=== PATIENT | male | born 1960 | race Hispanic/Latino ===

== ENCOUNTER 2018-01-10 22:06 | Inpatient (IN) | payer MEDICAID ==
--- OUTSIDE RECORDS SUMMARY | 2018-01-10 22:14 | XMS REPORT ---
:1960 [facility] [address] [place] [address] [address]. [address] [place] [address] Care Team Providers Name Role Phone Keo ZENG Unavailable Unavailable Mignon HUMPHREY Unavailable Unavailable Problems This patient has no known problems. Allergies, Adverse Reactions, Alerts This patient has no known allergies or adverse reactions. Medications This patient has no known medications. Results Test Description Test Time Test Comments Text Results Atomic Results Result Comments METHYLMALONIC ACID 2017-06-21 07:36:00 Test Item Value Reference Range Comments METHYLMALONIC ACID, SERUM (test gjrk=[id number]) 603 nmol/L 0-378 PERFORMED AT: [facility] [id number] [place] ESTIMATOR: Donnie Youssef MD PHONE: [phone], [id number] 06:50:00To start 15mins after 1st cultureSpecimen: BloodCollected: 2016 01:33 Status: Final Last Updated: 06/21/2017 06:49 (1) To start 15mins after 1st culture Culture Result (Final) (Final) No Growth After 5 DaysCULTURE, [id number] 06:50:00Specimen: BloodCollected: 06/16/2017 01: 20 Status: Final Last Updated: 06/21/2017 06:49 Culture Result (Final) ( Final) No Growth After 5 [id number] 09:05:00 Test Item Value Reference Range Comments Glucose (test code=GLU) 84 mg/dl 75-110 BUN (test code=BUN) 32.0 mg/dl 6.0-17.0 Creatinine (test 3.9 mg/dl 0.4-1.2 code=CREA) Sodium (test code=NA) 137 mmol/l 137-145 Potassium (test code=K) 3.9 mmol/l 3.5-5.0 Chloride (test code=CL) 99 mmol/l 98-107 CO2 (test code=CO2) 26 mmol/l 22-30 Calcium (test code=CALC) 8.1 mg/dl 8.4-10.2 T Protein (test code=TP) 5.8 gm/dl 5.1-8.7 Albumin (test code=ALB) 2.6 gm/dl 3.5-4.6 A/G Ratio (test 0.8 % 1.1-2.2 code=AGRAT) AST (SGOT) (test 18 U/L 11-36 code=AST) ALT (SGPT) (test 28 U/L 11-40 code=ALT) Alkaline Phos (test 180 U/L 47-114 code=ALKP) Total Bilirubin (test 0.6 mg/dl 0.2-1.2 code=TBIL) Globulin (test 3.2 gm/dl 2.3-3.5 code=GLOBU) Calcium, Corrected (test 9.2 mg/dl 8.4-10.2 Various formulas exist for code=CALCCORR) corrected serum calcium results, each yielding different values. This corrected result was based on the formula: Corrected Calcium=SerumCalcium + [0.8 * ( 4 - SerumAlbumin)] EGFR if 20 (test code=EGFRAA) mL/min/1.73m\\S\\2 EGFR if Non- 17 Estimated Glomerular Ukrainian (test mL/min/1.73m\\S\\2 Filtration Rate (eGFR) code=EGFRNA) Reference Intervals Decision Points for 18 years and older and average body mass: >=60 Does not exclude kidney disease. 30 - 59 Suggests moderate chronic kidney disease and indicates the need for further investigation including assessment of proteinuria and cardiovascular factors. < 30 Usually indicates a need for referral for assessment and management of chronic kidney failure. CBC WITH AUTO [id number] 08:50:00 Test Item Value Reference Range Comments WBC (test code=WBC) 10.86 10\\S\\3/ul 4.80-10.80 RBC (test code=RBC) 3.03 10\\S\\6/ul 4.70-6.10 Hemoglobin (test code=HGB) 8.4 gm/dl 14.0-18.0 Hematocrit (test code=HCT) 26.3 % 42.0-50.0 MCV (test code=MCV) 86.8 fL 80.0-94.0 MCH (test code=MCH) 27.7 pg 27.0-31.0 MCHC (test code=MCHC) 31.9 gm/dl 33.0-37.0 RDW (test code=RDWVC) 15.9 % 11.5-14.5 Platelet (test code=PLT) 250 10\\S\\3/ul 130-400 MPV (test code=MPV) 11.1 fL 7.4-10.4 "NOT MEASURED" RESULTS ARE DISPLAYED WHEN THE INSTRUMENT HAS A SUPPRESSED OR UNREPORTABLE RESULT. THIS WILL MOST OFTEN HAPPEN WITH THE MPV WHEN THERE IS AN ABNORMAL PLATLET DISTRIBUTION DUE TO A CRITICAL LOW VALUE OR PLATELET CLUMPING. NE% (test code=NE) 70.6 % 42.0-75.0 LY% (test code=LY) 12.0 % 13.0-42.0 MO% (test code=MO) 12.0 % 4.0-14.0 EO% (test code=EO) 4.1 % 1.0-3.0 BA% (test code=BA) 0.6 % 1.0-3.0 IG% (test code=IG%) 0.7 % 0.0-0.4 CBC WITH AUTO [id number] 01:49:00 Test Item Value Reference Range Comments WBC (test code=WBC) 9.84 10\\S\\3/ul 4.80-10.80 RBC (test code=RBC) 3.23 10\\S\\6/ul 4.70-6.10 Hemoglobin (test code=HGB) 8.9 gm/dl 14.0-18.0 Hematocrit (test code=HCT) 27.4 % 42.0-50.0 MCV (test code=MCV) 84.8 fL 80.0-94.0 MCH (test code=MCH) 27.6 pg 27.0-31.0 MCHC (test code=MCHC) 32.5 gm/dl 33.0-37.0 RDW (test code=RDWVC) 15.8 % 11.5-14.5 Platelet (test code=PLT) 229 10\\S\\3/ul 130-400 MPV (test code=MPV) 10.2 fL 7.4-10.4 "NOT MEASURED" RESULTS ARE DISPLAYED WHEN THE INSTRUMENT HAS A SUPPRESSED OR UNREPORTABLE RESULT. THIS WILL MOST OFTEN HAPPEN WITH THE MPV WHEN THERE IS AN ABNORMAL PLATLET DISTRIBUTION DUE TO A CRITICAL LOW VALUE OR PLATELET CLUMPING. NE% (test code=NE) 68.0 % 42.0-75.0 LY% (test code=LY) 13.6 % 13.0-42.0 MO% (test code=MO) 12.5 % 4.0-14.0 EO% (test code=EO) 4.6 % 1.0-3.0 BA% (test code=BA) 0.4 % 1.0-3.0 IG% (test code=IG%) 0.9 % 0.0-0.4 CBC WITH AUTO [id number] 20:08:00 Test Item Value Reference Range Comments WBC (test code=WBC) 9.69 10\\S\\3/ul 4.80-10.80 RBC (test code=RBC) 3.22 10\\S\\6/ul 4.70-6.10 Hemoglobin (test code=HGB) 9.0 gm/dl 14.0-18.0 Hematocrit (test code=HCT) 27.4 % 42.0-50.0 MCV (test code=MCV) 85.1 fL 80.0-94.0 MCH (test code=MCH) 28.0 pg 27.0-31.0 MCHC (test code=MCHC) 32.8 gm/dl 33.0-37.0 RDW (test code=RDWVC) 15.8 % 11.5-14.5 Platelet (test code=PLT) 233 10\\S\\3/ul 130-400 MPV (test code=MPV) 10.3 fL 7.4-10.4 "NOT MEASURED" RESULTS ARE DISPLAYED WHEN THE INSTRUMENT HAS A SUPPRESSED OR UNREPORTABLE RESULT. THIS WILL MOST OFTEN HAPPEN WITH THE MPV WHEN THERE IS AN ABNORMAL PLATLET DISTRIBUTION DUE TO A CRITICAL LOW VALUE OR PLATELET CLUMPING. NE% (test code=NE) 75.2 % 42.0-75.0 LY% (test code=LY) 10.5 % 13.0-42.0 MO% (test code=MO) 10.0 % 4.0-14.0 EO% (test code=EO) 3.3 % 1.0-3.0 BA% (test code=BA) 0.3 % 1.0-3.0 IG% (test code=IG%) 0.7 % 0.0-0.4 CBC WITH AUTO [id number] 13:58:00 Test Item Value Reference Range Comments WBC (test code=WBC) 9.68 10\\S\\3/ul 4.80-10.80 RBC (test code=RBC) 3.27 10\\S\\6/ul 4.70-6.10 Hemoglobin (test code=HGB) 9.2 gm/dl 14.0-18.0 Hematocrit (test code=HCT) 27.8 % 42.0-50.0 MCV (test code=MCV) 85.0 fL 80.0-94.0 MCH (test code=MCH) 28.1 pg 27.0-31.0 MCHC (test code=MCHC) 33.1 gm/dl 33.0-37.0 RDW (test code=RDWVC) 15.8 % 11.5-14.5 Platelet (test code=PLT) 227 10\\S\\3/ul 130-400 MPV (test code=MPV) 10.2 fL 7.4-10.4 "NOT MEASURED" RESULTS ARE DISPLAYED WHEN THE INSTRUMENT HAS A SUPPRESSED OR UNREPORTABLE RESULT. THIS WILL MOST OFTEN HAPPEN WITH THE MPV WHEN THERE IS AN ABNORMAL PLATLET DISTRIBUTION DUE TO A CRITICAL LOW VALUE OR PLATELET CLUMPING. NE% (test code=NE) 78.7 % 42.0-75.0 LY% (test code=LY) 8.2 % 13.0-42.0 MO% (test code=MO) 8.9 % 4.0-14.0 EO% (test code=EO) 3.0 % 1.0-3.0 BA% (test code=BA) 0.5 % 1.0-3.0 IG% (test code=IG%) 0.7 % 0.0-0.4 [id number] 09:14:00 Test Item Value Reference Range Comments Glucose (test code=GLU) 74 mg/dl 75-110 BUN (test code=BUN) 47.0 mg/dl 6.0-17.0 Creatinine (test 4.2 mg/dl 0.4-1.2 code=CREA) Sodium (test code=NA) 136 mmol/l 137-145 Potassium (test code=K) 4.6 mmol/l 3.5-5.0 Chloride (test code=CL) 104 mmol/l 98-107 CO2 (test code=CO2) 23 mmol/l 22-30 Calcium (test code=CALC) 8.2 mg/dl 8.4-10.2 T Protein (test code=TP) 5.8 gm/dl 5.1-8.7 Albumin (test code=ALB) 2.6 gm/dl 3.5-4.6 A/G Ratio (test 0.8 % 1.1-2.2 code=AGRAT) AST (SGOT) (test 74 U/L 11-36 code=AST) ALT (SGPT) (test 47 U/L 11-40 code=ALT) Alkaline Phos (test 219 U/L 47-114 code=ALKP) Total Bilirubin (test 0.7 mg/dl 0.2-1.2 code=TBIL) Globulin (test 3.2 gm/dl 2.3-3.5 code=GLOBU) Calcium, Corrected (test 9.3 mg/dl 8.4-10.2 Various formulas exist for code=CALCCORR) corrected serum calcium results, each yielding different values. This corrected result was based on the formula: Corrected Calcium=SerumCalcium + [0.8 * ( 4 - SerumAlbumin)] EGFR if 19 (test code=EGFRAA) mL/min/1.73m\\S\\2 EGFR if Non- 16 Estimated Glomerular Ukrainian (test mL/min/1.73m\\S\\2 Filtration Rate (eGFR) code=EGFRNA) Reference Intervals Decision Points for 18 years and older and average body mass: >=60 Does not exclude kidney disease. 30 - 59 Suggests moderate chronic kidney disease and indicates the need for further investigation including assessment of proteinuria and cardiovascular factors. < 30 Usually indicates a need for referral for assessment and management of chronic kidney failure. CBC WITH AUTO [id number] 09:05:00 Test Item Value Reference Range Comments WBC (test code=WBC) 10.91 10\\S\\3/ul 4.80-10.80 RBC (test code=RBC) 2.92 10\\S\\6/ul 4.70-6.10 Hemoglobin (test code=HGB) 8.1 gm/dl 14.0-18.0 Hematocrit (test code=HCT) 25.6 % 42.0-50.0 MCV (test code=MCV) 87.7 fL 80.0-94.0 MCH (test code=MCH) 27.7 pg 27.0-31.0 MCHC (test code=MCHC) 31.6 gm/dl 33.0-37.0 RDW (test code=RDWVC) 16.0 % 11.5-14.5 Platelet (test code=PLT) 191 10\\S\\3/ul 130-400 MPV (test code=MPV) 10.3 fL 7.4-10.4 "NOT MEASURED" RESULTS ARE DISPLAYED WHEN THE INSTRUMENT HAS A SUPPRESSED OR UNREPORTABLE RESULT. THIS WILL MOST OFTEN HAPPEN WITH THE MPV WHEN THERE IS AN ABNORMAL PLATLET DISTRIBUTION DUE TO A CRITICAL LOW VALUE OR PLATELET CLUMPING. NE% (test code=NE) 74.1 % 42.0-75.0 LY% (test code=LY) 10.1 % 13.0-42.0 MO% (test code=MO) 11.3 % 4.0-14.0 EO% (test code=EO) 3.5 % 1.0-3.0 BA% (test code=BA) 0.3 % 1.0-3.0 IG% (test code=IG%) 0.7 % 0.0-0.4 CBC WITH AUTO [id number] 02:17:00 Test Item Value Reference Range Comments WBC (test code=WBC) 11.41 10\\S\\3/ul 4.80-10.80 RBC (test code=RBC) 2.90 10\\S\\6/ul 4.70-6.10 Hemoglobin (test code=HGB) 8.1 gm/dl 14.0-18.0 Hematocrit (test code=HCT) 25.0 % 42.0-50.0 MCV (test code=MCV) 86.2 fL 80.0-94.0 MCH (test code=MCH) 27.9 pg 27.0-31.0 MCHC (test code=MCHC) 32.4 gm/dl 33.0-37.0 RDW (test code=RDWVC) 15.9 % 11.5-14.5 Platelet (test code=PLT) 220 10\\S\\3/ul 130-400 MPV (test code=MPV) 10.3 fL 7.4-10.4 "NOT MEASURED" RESULTS ARE DISPLAYED WHEN THE INSTRUMENT HAS A SUPPRESSED OR UNREPORTABLE RESULT. THIS WILL MOST OFTEN HAPPEN WITH THE MPV WHEN THERE IS AN ABNORMAL PLATLET DISTRIBUTION DUE TO A CRITICAL LOW VALUE OR PLATELET CLUMPING. NE% (test code=NE) 72.1 % 42.0-75.0 LY% (test code=LY) 11.2 % 13.0-42.0 MO% (test code=MO) 11.3 % 4.0-14.0 EO% (test code=EO) 4.3 % 1.0-3.0 BA% (test code=BA) 0.4 % 1.0-3.0 IG% (test code=IG%) 0.7 % 0.0-0.4 CBC WITH AUTO [id number] 20:02:00 Test Item Value Reference Range Comments WBC (test code=WBC) 11.53 10\\S\\3/ul 4.80-10.80 RBC (test code=RBC) 3.05 10\\S\\6/ul 4.70-6.10 Hemoglobin (test code=HGB) 8.6 gm/dl 14.0-18.0 Hematocrit (test code=HCT) 26.1 % 42.0-50.0 MCV (test code=MCV) 85.6 fL 80.0-94.0 MCH (test code=MCH) 28.2 pg 27.0-31.0 MCHC (test code=MCHC) 33.0 gm/dl 33.0-37.0 RDW (test code=RDWVC) 16.0 % 11.5-14.5 Platelet (test code=PLT) 220 10\\S\\3/ul 130-400 MPV (test code=MPV) 9.7 fL 7.4-10.4 "NOT MEASURED" RESULTS ARE DISPLAYED WHEN THE INSTRUMENT HAS A SUPPRESSED OR UNREPORTABLE RESULT. THIS WILL MOST OFTEN HAPPEN WITH THE MPV WHEN THERE IS AN ABNORMAL PLATLET DISTRIBUTION DUE TO A CRITICAL LOW VALUE OR PLATELET CLUMPING. NE% (test code=NE) 72.5 % 42.0-75.0 LY% (test code=LY) 11.4 % 13.0-42.0 MO% (test code=MO) 10.6 % 4.0-14.0 EO% (test code=EO) 4.3 % 1.0-3.0 BA% (test code=BA) 0.4 % 1.0-3.0 IG% (test code=IG%) 0.8 % 0.0-0.4 CBC WITH AUTO [id number] 14:17:00 Test Item Value Reference Range Comments WBC (test code=WBC) 11.59 10\\S\\3/ul 4.80-10.80 RBC (test code=RBC) 3.36 10\\S\\6/ul 4.70-6.10 Hemoglobin (test code=HGB) 9.4 gm/dl 14.0-18.0 Hematocrit (test code=HCT) 29.0 % 42.0-50.0 MCV (test code=MCV) 86.3 fL 80.0-94.0 MCH (test code=MCH) 28.0 pg 27.0-31.0 MCHC (test code=MCHC) 32.4 gm/dl 33.0-37.0 RDW (test code=RDWVC) 15.9 % 11.5-14.5 Platelet (test code=PLT) 229 10\\S\\3/ul 130-400 MPV (test code=MPV) 10.4 fL 7.4-10.4 "NOT MEASURED" RESULTS ARE DISPLAYED WHEN THE INSTRUMENT HAS A SUPPRESSED OR UNREPORTABLE RESULT. THIS WILL MOST OFTEN HAPPEN WITH THE MPV WHEN THERE IS AN ABNORMAL PLATLET DISTRIBUTION DUE TO A CRITICAL LOW VALUE OR PLATELET CLUMPING. NE% (test code=NE) 76.5 % 42.0-75.0 LY% (test code=LY) 11.2 % 13.0-42.0 MO% (test code=MO) 8.5 % 4.0-14.0 EO% (test code=EO) 2.6 % 1.0-3.0 BA% (test code=BA) 0.3 % 1.0-3.0 IG% (test code=IG%) 0.9 % 0.0-0.4 [id number] 08:47:00 Test Item Value Reference Range Comments Magnesium (test code=MG) 1.9 mg/dl 1.6-2.3 [id number] 08:47:00 Test Item Value Reference Range Comments Glucose (test code=GLU) 137 mg/dl 75-110 BUN (test code=BUN) 45.0 mg/dl 6.0-17.0 Creatinine (test 3.9 mg/dl 0.4-1.2 code=CREA) Sodium (test code=NA) 137 mmol/l 137-145 Potassium (test code=K) 4.5 mmol/l 3.5-5.0 Chloride (test code=CL) 103 mmol/l 98-107 CO2 (test code=CO2) 21 mmol/l 22-30 Calcium (test code=CALC) 8.7 mg/dl 8.4-10.2 T Protein (test code=TP) 7.1 gm/dl 5.1-8.7 Albumin (test code=ALB) 3.3 gm/dl 3.5-4.6 A/G Ratio (test 0.9 % 1.1-2.2 code=AGRAT) AST (SGOT) (test 18 U/L 11-36 code=AST) ALT (SGPT) (test 23 U/L 11-40 code=ALT) Alkaline Phos (test 93 U/L 47-114 code=ALKP) Total Bilirubin (test 0.9 mg/dl 0.2-1.2 code=TBIL) Globulin (test 3.8 gm/dl 2.3-3.5 code=GLOBU) Calcium, Corrected (test 9.3 mg/dl 8.4-10.2 Various formulas exist for code=CALCCORR) corrected serum calcium results, each yielding different values. This corrected result was based on the formula: Corrected Calcium=SerumCalcium + [0.8 * ( 4 - SerumAlbumin)] EGFR if 20 (test code=EGFRAA) mL/min/1.73m\\S\\2 EGFR if Non- 17 Estimated Glomerular Ukrainian (test mL/min/1.73m\\S\\2 Filtration Rate (eGFR) code=EGFRNA) Reference Intervals Decision Points for 18 years and older and average body mass: >=60 Does not exclude kidney disease. 30 - 59 Suggests moderate chronic kidney disease and indicates the need for further investigation including assessment of proteinuria and cardiovascular factors. < 30 Usually indicates a need for referral for assessment and management of chronic kidney failure. CBC WITH AUTO [id number] 08:22:00 Test Item Value Reference Range Comments WBC (test code=WBC) 11.98 10\\S\\3/ul 4.80-10.80 RBC (test code=RBC) 3.62 10\\S\\6/ul 4.70-6.10 Hemoglobin (test code=HGB) 10.1 gm/dl 14.0-18.0 Hematocrit (test code=HCT) 31.3 % 42.0-50.0 MCV (test code=MCV) 86.5 fL 80.0-94.0 MCH (test code=MCH) 27.9 pg 27.0-31.0 MCHC (test code=MCHC) 32.3 gm/dl 33.0-37.0 RDW (test code=RDWVC) 16.0 % 11.5-14.5 Platelet (test code=PLT) 241 10\\S\\3/ul 130-400 MPV (test code=MPV) 10.3 fL 7.4-10.4 "NOT MEASURED" RESULTS ARE DISPLAYED WHEN THE INSTRUMENT HAS A SUPPRESSED OR UNREPORTABLE RESULT. THIS WILL MOST OFTEN HAPPEN WITH THE MPV WHEN THERE IS AN ABNORMAL PLATLET DISTRIBUTION DUE TO A CRITICAL LOW VALUE OR PLATELET CLUMPING. NE% (test code=NE) 78.2 % 42.0-75.0 LY% (test code=LY) 11.1 % 13.0-42.0 MO% (test code=MO) 8.3 % 4.0-14.0 EO% (test code=EO) 1.2 % 1.0-3.0 BA% (test code=BA) 0.4 % 1.0-3.0 IG% (test code=IG%) 0.8 % 0.0-0.4 CBC WITH AUTO [id number] 03:42:00 Test Item Value Reference Range Comments WBC (test code=WBC) 12.29 10\\S\\3/ul 4.80-10.80 RBC (test code=RBC) 3.55 10\\S\\6/ul 4.70-6.10 Hemoglobin (test 9.9 gm/dl 14.0-18.0 code=HGB) Hematocrit (test 30.5 % 42.0-50.0 code=HCT) MCV (test code=MCV) 85.9 fL 80.0-94.0 MCH (test code=MCH) 27.9 pg 27.0-31.0 MCHC (test code=MCHC) 32.5 gm/dl 33.0-37.0 RDW (test code=RDWVC) 16.2 % 11.5-14.5 Platelet (test 255 10\\S\\3/ul 130-400 code=PLT) MPV (test code=MPV) 9.7 fL 7.4-10.4 "NOT MEASURED" RESULTS ARE DISPLAYED WHEN THE INSTRUMENT HAS A SUPPRESSED OR UNREPORTABLE RESULT. THIS WILL MOST OFTEN HAPPEN WITH THE MPV WHEN THERE IS AN ABNORMAL PLATLET DISTRIBUTION DUE TO A CRITICAL LOW VALUE OR PLATELET CLUMPING. NE% (test code=NE) 60.0 % 42.0-75.0 LY% (test code=LY) 18.5 % 13.0-42.0 MO% (test code=MO) 15.3 % 4.0-14.0 EO% (test code=EO) 4.6 % 1.0-3.0 BA% (test code=BA) 0.6 % 1.0-3.0 IG% (test code=IG%) 1.0 % 0.0-0.4 Bands (test code=BANDM) 1 % 0-2 The value no value originally released by on ############### was changed to 1 by [id number] on 06/17/2017 03:42 Neutrophils (test 68 % 42-75 The value no value code=NEUTR) originally released by on ############### was changed to 68 by [id number] on 06/17/2017 03:42 Lymphocytes (test 16 % 13-42 The value no value code=LYMPH) originally released by on ############### was changed to 16 by [id number] on 06/17/2017 03:42 Monocytes (test 11 % 4-14 The value no value code=MONOS) originally released by on ############### was changed to 11 by [id number] on 06/17/2017 03:42 Eosinophils (test 3 % 1-3 The value no value code=EOS) originally released by on ############### was changed to 3 by [id number] on 06/17/2017 03:42 Basophils (test 1 % 0-1 The value no value code=BASO) originally released by on ############### was changed to 1 by [id number] on 06/17/2017 03:42 RBC Morphology (test Anisocytosis The value no value code=RBCMOR) Hypochromic originally released by on ############### was changed to Anisocytosis Hypochromic by [id number] on 06/17/2017 03:42 Platelet Morphology Giant platelets The value no value (test code=PLTMORPH) originally released by on ############### was changed to Giant platelets by [id number] on 06/17/2017 03:42 CBC WITH AUTO [id number] 19:54:00 Test Item Value Reference Range Comments WBC (test code=WBC) 9.84 10\\S\\3/ul 4.80-10.80 RBC (test code=RBC) 3.14 10\\S\\6/ul 4.70-6.10 Hemoglobin (test code=HGB) 8.9 gm/dl 14.0-18.0 Hematocrit (test code=HCT) 27.2 % 42.0-50.0 MCV (test code=MCV) 86.6 fL 80.0-94.0 MCH (test code=MCH) 28.3 pg 27.0-31.0 MCHC (test code=MCHC) 32.7 gm/dl 33.0-37.0 RDW (test code=RDWVC) 16.2 % 11.5-14.5 Platelet (test code=PLT) 199 10\\S\\3/ul 130-400 MPV (test code=MPV) 9.7 fL 7.4-10.4 "NOT MEASURED" RESULTS ARE DISPLAYED WHEN THE INSTRUMENT HAS A SUPPRESSED OR UNREPORTABLE RESULT. THIS WILL MOST OFTEN HAPPEN WITH THE MPV WHEN THERE IS AN ABNORMAL PLATLET DISTRIBUTION DUE TO A CRITICAL LOW VALUE OR PLATELET CLUMPING. NE% (test code=NE) 64.7 % 42.0-75.0 LY% (test code=LY) 14.6 % 13.0-42.0 MO% (test code=MO) 14.9 % 4.0-14.0 EO% (test code=EO) 4.5 % 1.0-3.0 BA% (test code=BA) 0.5 % 1.0-3.0 IG% (test code=IG%) 0.8 % 0.0-0.4 CBC WITH AUTO [id number] 14:30:00 Test Item Value Reference Range Comments WBC (test code=WBC) 9.87 10\\S\\3/ul 4.80-10.80 RBC (test code=RBC) 3.24 10\\S\\6/ul 4.70-6.10 Hemoglobin (test code=HGB) 9.1 gm/dl 14.0-18.0 Hematocrit (test code=HCT) 27.9 % 42.0-50.0 MCV (test code=MCV) 86.1 fL 80.0-94.0 MCH (test code=MCH) 28.1 pg 27.0-31.0 MCHC (test code=MCHC) 32.6 gm/dl 33.0-37.0 RDW (test code=RDWVC) 16.4 % 11.5-14.5 Platelet (test code=PLT) 199 10\\S\\3/ul 130-400 MPV (test code=MPV) 9.9 fL 7.4-10.4 "NOT MEASURED" RESULTS ARE DISPLAYED WHEN THE INSTRUMENT HAS A SUPPRESSED OR UNREPORTABLE RESULT. THIS WILL MOST OFTEN HAPPEN WITH THE MPV WHEN THERE IS AN ABNORMAL PLATLET DISTRIBUTION DUE TO A CRITICAL LOW VALUE OR PLATELET CLUMPING. NE% (test code=NE) 67.9 % 42.0-75.0 LY% (test code=LY) 15.9 % 13.0-42.0 MO% (test code=MO) 12.0 % 4.0-14.0 EO% (test code=EO) 2.8 % 1.0-3.0 BA% (test code=BA) 0.4 % 1.0-3.0 IG% (test code=IG%) 1.0 % 0.0-0.4 CBC WITH AUTO [id number] 07:35:00 Test Item Value Reference Range Comments WBC (test code=WBC) 11.13 10\\S\\3/ul 4.80-10.80 RBC (test code=RBC) 3.31 10\\S\\6/ul 4.70-6.10 Hemoglobin (test code=HGB) 9.1 gm/dl 14.0-18.0 Hematocrit (test code=HCT) 28.4 % 42.0-50.0 MCV (test code=MCV) 85.8 fL 80.0-94.0 MCH (test code=MCH) 27.5 pg 27.0-31.0 MCHC (test code=MCHC) 32.0 gm/dl 33.0-37.0 RDW (test code=RDWVC) 16.2 % 11.5-14.5 Platelet (test code=PLT) 181 10\\S\\3/ul 130-400 MPV (test code=MPV) 10.4 fL 7.4-10.4 "NOT MEASURED" RESULTS ARE DISPLAYED WHEN THE INSTRUMENT HAS A SUPPRESSED OR UNREPORTABLE RESULT. THIS WILL MOST OFTEN HAPPEN WITH THE MPV WHEN THERE IS AN ABNORMAL PLATLET DISTRIBUTION DUE TO A CRITICAL LOW VALUE OR PLATELET CLUMPING. NE% (test code=NE) 72.3 % 42.0-75.0 LY% (test code=LY) 11.7 % 13.0-42.0 MO% (test code=MO) 11.6 % 4.0-14.0 EO% (test code=EO) 2.8 % 1.0-3.0 BA% (test code=BA) 0.4 % 1.0-3.0 IG% (test code=IG%) 1.2 % 0.0-0.4 HEP B SURFACE [id number] 07:14:00 Test Item Value Reference Range Comments Hep B Surface Ag 0.06 mIU/mL 0.00-1.00 HBsAg Signal Cutoff (Signal Value) (test Interpretation Guide: < code=HBSAG.SV) 1.00 Negative Specimen is presumed to be negative for HBsAg. >=1.00 and < 5.00 Reactive Specimen is reactive for HBsAg. Suggest confirmation by supplemental testing. > 5.00 Positive Specimen is positive for HBsAg. FT (test code=HBSAG) Negative (qualifier Negative value) TYPE & [id number] 04:15:00 Test Item Value Reference Range Comments ABO Blood Type (test code=ABO) O Rh (test code=RH) Positive Antibody Screen (test code=ABSCR) Negative Negative ARMBAND# (test code=ARMBAND) [id number] PRO-BNP(B-Type Natriuretic Peptide)2017-06-16 03:42:00 Test Item Value Reference Range Comments Pro-BNP(B-Peptide) 01745 pg/ml 0-125 THE METHODOLOGY FOR DETECTION OF (test code=PROBNP) B-NATRIURETIC PEPTIDE HAS BEEN CHANGED TO "NT pro-BNP". THE NORMAL RANGES HAVE CHANGED. PLEASE NOTE THAT RANGES ARE DEFINED BY THE AGE OF THE PATIENT. (<75 years old=0-125 pg/ml 75years and older=0-450pg/ml). VALUES ARE NOT INTERCHANGEABLE BETWEEN METHODS. 10-29-2006 add to labsIRON, TOTAL(Serum)2017-06-16 03:32:00 Test Item Value Reference Range Comments Iron (test code=FETOT) 33 ug/dl 20-149 TOTAL IRON BINDING CAPACITY (TIBC)2017-06-16 03:32:00 Test Item Value Reference Range Comments TIBC (test code=TIBC) 161 ug/dl 178-500 B12, [id number] 03:32:00 Test Item Value Reference Range Comments B12 (test code=B12) 717 pg/ml 239-941 [id number] 03:32:00 Test Item Value Reference Range Comments Folic Acid (test code=FOLIC) 5.35 ng/ml 2.76-20.00 IRON [id number] 03:32:00 Test Item Value Reference Range Comments Iron (test code=FETOT) 33 ug/dl 20-149 TIBC (test code=TIBC) 161 ug/dl 178-500 Iron Saturation (test code=FESAT) 20 % 16-62 [id number] 03:05:00 Test Item Value Reference Range Comments pH (ABG) (test code=BGPH) 7.420 7.350-7.450 pCO2(T) (test code=BGPCO2(T)) 35.8 mm Hg 35.0-45.0 pO2(T) (test code=BGPO2(T)) 79.3 mm Hg 80.0-100.0 sO2 (test code=BGSO2) 97.0 % 90.0-99.0 Na+ (test code=BGCNA+) 138.7 mmol/l 135.0-148.0 K+ (test code=BGCK+) 3.83 mmol/l 3.50-4.50 Ca2+ (test code=BGCCA2+) 1.160 mmol/l 1.120-1.320 Cl- (test code=BGCCL-) 103 mmol/l 98-107 tHb (test code=BGCTHB) 9.6 gm/dl 11.5-17.4 O2Hb (test code=REMT3MY) 94.7 % 95.0-99.0 COHb (test code=BGFCOHB) <2.8 % 0.5-2.5 MetHB (test code=BGMETHB) <1.3 % 0.4-1.5 Gluc (test code=BGCGLU) 107.0 mg/dl 60.0-110.0 Lac (test code=BGCLAC) <1.6 mmol/l 1.0-1.7 Barometric Pressure (test code=BGBARO) 763.0 mm Hg 450.0-1000.0 BE(act) (test code=BGBEACT) -1 mmol/l HCO3 (test code=BGHCO3) 23 meq/L 22-26 ctCO2(B) (test code=BGCTCO2(B)) 21 mmol/l FIO2 (fO2(I) (test code=BGFIO2) 0.21 % Drawn By (test code=BGDRAWNBHaley) LUCY GAMBLE Collection Date (test code=BGDTCOL) 06/16/2017 Collection Time (test code=BGCTM) 03:03 Sample Site (test code=BGSAMPLESITE) R Brachial Sample Type (test code=BGSAMPLETYPE) Arterial Allens Test (test code=BGALLEN) Acceptable Notified By (test code=BGNOTIFIEDBY) LUCY GAMBLE Notified Whom (test code=BGNOTIFIEDWHOM) RN Date Notified (test code=BGDTNOTIFIED) 06/16/2017 Time Notified (test code=BGTMNOTIFIED) 03:03 O2 Device (test code=EIV9EPY3) ROOM AIR Instrument ID (test code=BGINSTRID) [id number] Reported By (test code=BGREPORTEDBY) MAVIS LUCY GLYCOSALATED [id number] 02:39:00 Test Item Value Reference Range Comments Hemoglobin A1C (test 5.78 % 4.3-6.0 code=GLYCO) Mean Plasma Glucose (test 128 mg/dl 90-180 WHEN TEST RESULTS FOR A1C code=MPG) EXCEED 14.0, THE LINEAR LIMIT OF THE INSTRUMENT, THE CALCULATED RESULT FOR THE MEAN GLUCOSE IS NOT RELIABLE. CORONARY [id number] 02:22:00 Test Item Value Reference Range Comments Triglycerides (test 82 mg/dl 0-149 Trig. Interpretation Guide: code=TRIG) Normal: < 150 mg/dl Borderline High: 150 - 199 mg/dl High: 200 - 499 mg/dl Very High: >=500 mg/dl Cholesterol (test code=CHOL) 130 mg/dl 0-198 HDL (test code=HDL) 45 mg/dl 35-86 dLDL (test code=DILDL) 65 mg/dl 0-99 Direct LDL Intrepretations: Optimal: <100 mg/dl Suspect: 100 - 129 mg/dl Borderline: 130 - 159 mg/dl High: 160 - 189 mg/dl Very High: >190 mg/dl Risk Factor (test code=RFACT) 2.9 0.0-5.0 Risk Factor Men Women Risk Factor 3.4 3.3 1/2 Average 5.0 4.4 Average 9.6 7.1 2X Average 24.0 11.0 3X Average vLDL (test code=VLDL) 16 mg/dl 30-60 VANCOMYCIN, [id number] 02:19:00 Test Item Value Reference Range Comments Vancomycin, Trough (test 7.7 ug/ml 15.0-20.0 05/13/2009 Change in Therapeutic code=VANCT) Range, for Trough Level, has been implemented per P&T committee. INTERPRETATION GUIDE: CONSIDER SENSITIVITY REPORT IF NGUYEN IS=1 THERAPEUTIC RANGE IS 15-20 ug/ml IF NGUYEN IS > OR=2 CONSIDER ALTERNATE THERAPY [id number] 02:05:00 Test Item Value Reference Range Comments Glucose (test code=GLU) 99 mg/dl 75-110 BUN (test code=BUN) 39.0 mg/dl 6.0-17.0 Creatinine (test 3.0 mg/dl 0.4-1.2 code=CREA) Sodium (test code=NA) 143 mmol/l 137-145 Potassium (test code=K) 3.9 mmol/l 3.5-5.0 Chloride (test code=CL) 108 mmol/l 98-107 CO2 (test code=CO2) 23 mmol/l 22-30 Calcium (test code=CALC) 8.4 mg/dl 8.4-10.2 T Protein (test code=TP) 6.4 gm/dl 5.1-8.7 Albumin (test code=ALB) 2.9 gm/dl 3.5-4.6 A/G Ratio (test 0.8 % 1.1-2.2 code=AGRAT) AST (SGOT) (test 15 U/L 11-36 code=AST) ALT (SGPT) (test 18 U/L 11-40 code=ALT) Alkaline Phos (test 93 U/L 47-114 code=ALKP) Total Bilirubin (test 0.7 mg/dl 0.2-1.2 code=TBIL) Globulin (test 3.5 gm/dl 2.3-3.5 code=GLOBU) Calcium, Corrected (test 9.3 mg/dl 8.4-10.2 Various formulas exist for code=CALCCORR) corrected serum calcium results, each yielding different values. This corrected result was based on the formula: Corrected Calcium=SerumCalcium + [0.8 * ( 4 - SerumAlbumin)] EGFR if 28 (test code=EGFRAA) mL/min/1.73m\\S\\2 EGFR if Non- 23 Estimated Glomerular Ukrainian (test mL/min/1.73m\\S\\2 Filtration Rate (eGFR) code=EGFRNA) Reference Intervals Decision Points for 18 years and older and average body mass: >=60 Does not exclude kidney disease. 30 - 59 Suggests moderate chronic kidney disease and indicates the need for further investigation including assessment of proteinuria and cardiovascular factors. < 30 Usually indicates a need for referral for assessment and management of chronic kidney failure. [id number] 02:05:00 Test Item Value Reference Range Comments Magnesium (test code=MG) 1.9 mg/dl 1.6-2.3 CBC WITH AUTO [id number] 02:03:00 Test Item Value Reference Range Comments WBC (test code=WBC) 11.79 10\\S\\3/ul 4.80-10.80 RBC (test code=RBC) 3.22 10\\S\\6/ul 4.70-6.10 Hemoglobin (test code=HGB) 9.1 gm/dl 14.0-18.0 Hematocrit (test code=HCT) 27.8 % 42.0-50.0 MCV (test code=MCV) 86.3 fL 80.0-94.0 MCH (test code=MCH) 28.3 pg 27.0-31.0 MCHC (test code=MCHC) 32.7 gm/dl 33.0-37.0 RDW (test code=RDWVC) 16.0 % 11.5-14.5 Platelet (test code=PLT) 180 10\\S\\3/ul 130-400 MPV (test code=MPV) 10.0 fL 7.4-10.4 "NOT MEASURED" RESULTS ARE DISPLAYED WHEN THE INSTRUMENT HAS A SUPPRESSED OR UNREPORTABLE RESULT. THIS WILL MOST OFTEN HAPPEN WITH THE MPV WHEN THERE IS AN ABNORMAL PLATLET DISTRIBUTION DUE TO A CRITICAL LOW VALUE OR PLATELET CLUMPING. NE% (test code=NE) 67.6 % 42.0-75.0 LY% (test code=LY) 14.4 % 13.0-42.0 MO% (test code=MO) 13.5 % 4.0-14.0 EO% (test code=EO) 3.1 % 1.0-3.0 BA% (test code=BA) 0.5 % 1.0-3.0 IG% (test code=IG%) 0.9 % 0.0-0.4 AFB CULTURE + [id number] 12:29:00 Test Item Value Reference Range Comments CULTURE (BEAKER) (test No acid-fast bacilli isolated ttio=6994) in 42 days AFB SMEAR (BEAKER) (test No acid fast bacilli seen gsex=144) AFB CULTURE + [id number] 12:28:00 Test Item Value Reference Range Comments CULTURE (BEAKER) (test No acid-fast bacilli isolated fsee=0234) in 42 days AFB SMEAR (BEAKER) (test No acid fast bacilli seen tefi=588) FUNGUS CULTURE + [id number] 17:13:00 Test Item Value Reference Range Comments CULTURE (BEAKER) (test No fungus isolated in 28 days zars=9718) FUNGUS SMEAR (BEAKER) (test No fungi seen foec=9443) FUNGUS CULTURE + [id number] 17:13:00 Test Item Value Reference Range Comments CULTURE (BEAKER) (test No fungus isolated in 28 days njer=1125) FUNGUS SMEAR (BEAKER) (test No fungi seen xtbg=7523) FUNGUS CULTURE + [id number] 21:46:00 Test Item Value Reference Range Comments CULTURE (BEAKER) (test No fungus isolated in 28 days nbwe=0602) FUNGUS SMEAR (BEAKER) (test No fungi seen ebqn=4607) POCT-GLUCOSE [id number] 17:22:00 Test Item Value Reference Range Comments POC-GLUCOSE METER (BEAKER) 169 mg/dL 70-110 TESTED AT [address] (test rqlf=9579) [place] [id number] POCT-GLUCOSE [id number] 12:13:00 Test Item Value Reference Range Comments POC-GLUCOSE METER (BEAKER) 165 mg/dL 70-110 TESTED AT [address] (test fnrm=5697) [place] [id number] POCT-GLUCOSE [id number] 07:48:00 Test Item Value Reference Range Comments POC-GLUCOSE METER (BEAKER) 132 mg/dL 70-110 TESTED AT [address] (test hzrk=7956) [place] [id number] BASIC METABOLIC [id number] 07:26:00 Test Item Value Reference Range Comments SODIUM (BEAKER) (test 133 meq/L 136-145 yxdg=584) POTASSIUM (BEAKER) (test 4.2 meq/L 3.5-5.1 uinh=772) CHLORIDE (BEAKER) (test 101 meq/L 98-107 soge=939) CO2 (BEAKER) (test 22 meq/L 22-29 jabu=416) BLOOD UREA NITROGEN 38 mg/dL 7-21 (BEAKER) (test pwqq=899) CREATININE (BEAKER) (test 4.01 mg/dL 0.57-1.25 wogu=990) GLUCOSE RANDOM (BEAKER) 110 mg/dL 70-105 (test masw=679) CALCIUM (BEAKER) (test 8.7 mg/dL 8.4-10.2 vnjy=433) EGFR (BEAKER) (test 15 mL/min/1.73 sq m ESTIMATED GFR IS NOT nupl=6330) ACCURATE CREATININE CLEARANCE IN PREDICTING GLOMERULAR FILTRATION RATE. ESTIMATED GFR IS NOT APPLICABLE FOR DIALYSIS PATIENTS. [id number] 07:25:00 Test Item Value Reference Range Comments PHOSPHORUS (BEAKER) (test ntww=952) 4.4 mg/dL 2.3-4.7 [id number] 07:25:00 Test Item Value Reference Range Comments MAGNESIUM (BEAKER) (test kabe=162) 1.9 mg/dL 1.6-2.6 CBC W/PLT COUNT & AUTO [id number] 06:54:00 Test Item Value Reference Range Comments WHITE BLOOD CELL COUNT (BEAKER) (test bvzz=013) 12.6 K/ L 4.0-10.0 RED BLOOD CELL COUNT (BEAKER) (test gkjs=401) 2.78 M/ L 4.20-5.80 HEMOGLOBIN (BEAKER) (test xqft=346) 8.3 GM/DL 13.0-16.8 HEMATOCRIT (BEAKER) (test xvqe=960) 25.1 % 40.0-50.0 MEAN CORPUSCULAR VOLUME (BEAKER) (test xbah=972) 90.3 fL 82.0-98.0 MEAN CORPUSCULAR HEMOGLOBIN (BEAKER) (test 29.8 pg 27.0-33.0 hpxi=980) MEAN CORPUSCULAR HEMOGLOBIN CONC (BEAKER) (test 33.1 GM/DL 32.0-36.0 pcuh=938) RED CELL DISTRIBUTION WIDTH (BEAKER) (test 16.1 % 10.3-14.2 oadc=966) PLATELET COUNT (BEAKER) (test fhns=448) 290 K/CU MM 150-430 MEAN PLATELET VOLUME (BEAKER) (test bczn=841) 7.2 fL 6.5-10.5 NUCLEATED RED BLOOD CELLS (BEAKER) (test 0 /100 WBC 0-0 kroh=210) NEUTROPHILS RELATIVE PERCENT (BEAKER) (test 74 % thot=477) LYMPHOCYTES RELATIVE PERCENT (BEAKER) (test 15 % rkgy=820) MONOCYTES RELATIVE PERCENT (BEAKER) (test 9 % gwty=186) EOSINOPHILS RELATIVE PERCENT (BEAKER) (test 2 % skli=100) BASOPHILS RELATIVE PERCENT (BEAKER) (test 0 % ecpi=763) NEUTROPHILS ABSOLUTE COUNT (BEAKER) (test 9.30 K/ L 1.80-8.00 adza=513) LYMPHOCYTES ABSOLUTE COUNT (BEAKER) (test 1.89 K/ L 1.48-4.50 rppr=343) MONOCYTES ABSOLUTE COUNT (BEAKER) (test 1.14 K/ L 0.00-1.30 qlbr=164) EOSINOPHILS ABSOLUTE COUNT (BEAKER) (test 0.26 K/ L 0.00-0.50 htri=308) BASOPHILS ABSOLUTE COUNT (BEAKER) (test 0.05 K/ L 0.00-0.20 auyg=073) 0.00POCT-GLUCOSE [id number] 22:31:00 Test Item Value Reference Range Comments POC-GLUCOSE METER (BEAKER) 133 mg/dL 70-110 TESTED AT [address] (test xove=9494) [place] [address] POCT-GLUCOSE [id number] 17:17:00 Test Item Value Reference Range Comments POC-GLUCOSE METER (BEAKER) 119 mg/dL 70-110 TESTED AT [address] (test yrzb=5607) [place] [address] POCT-GLUCOSE [id number] 11:43:00 Test Item Value Reference Range Comments POC-GLUCOSE METER (BEAKER) 175 mg/dL 70-110 TESTED AT [address] (test ecsw=6723) [place] [address] CBC W/PLT COUNT & AUTO [id number] 08:39:00 Test Item Value Reference Range Comments WHITE BLOOD CELL COUNT (BEAKER) (test ftex=547) 13.4 K/ L 4.0-10.0 RED BLOOD CELL COUNT (BEAKER) (test qobd=188) 2.91 M/ L 4.20-5.80 HEMOGLOBIN (BEAKER) (test ikkp=418) 8.6 GM/DL 13.0-16.8 HEMATOCRIT (BEAKER) (test awxc=515) 26.5 % 40.0-50.0 MEAN CORPUSCULAR VOLUME (BEAKER) (test uwrk=980) 91.1 fL 82.0-98.0 MEAN CORPUSCULAR HEMOGLOBIN (BEAKER) (test 29.4 pg 27.0-33.0 yjpe=076) MEAN CORPUSCULAR HEMOGLOBIN CONC (BEAKER) (test 32.3 GM/DL 32.0-36.0 nkds=889) RED CELL DISTRIBUTION WIDTH (BEAKER) (test 16.0 % 10.3-14.2 fxvg=807) PLATELET COUNT (BEAKER) (test clog=220) 282 K/CU MM 150-430 MEAN PLATELET VOLUME (BEAKER) (test cpyi=802) 7.7 fL 6.5-10.5 NUCLEATED RED BLOOD CELLS (BEAKER) (test 0 /100 WBC 0-0 vwlp=173) NEUTROPHILS RELATIVE PERCENT (BEAKER) (test 72 % anhs=895) LYMPHOCYTES RELATIVE PERCENT (BEAKER) (test 16 % ufrv=966) MONOCYTES RELATIVE PERCENT (BEAKER) (test 10 % fmys=508) EOSINOPHILS RELATIVE PERCENT (BEAKER) (test 2 % xlxy=387) BASOPHILS RELATIVE PERCENT (BEAKER) (test 1 % gmre=734) NEUTROPHILS ABSOLUTE COUNT (BEAKER) (test 9.63 K/ L 1.80-8.00 hcig=347) LYMPHOCYTES ABSOLUTE COUNT (BEAKER) (test 2.15 K/ L 1.48-4.50 llkl=082) MONOCYTES ABSOLUTE COUNT (BEAKER) (test 1.32 K/ L 0.00-1.30 vycu=186) EOSINOPHILS ABSOLUTE COUNT (BEAKER) (test 0.23 K/ L 0.00-0.50 vltu=640) BASOPHILS ABSOLUTE COUNT (BEAKER) (test 0.10 K/ L 0.00-0.20 ugzi=383) [id number](MANUAL DIFFERENTIAL)2016-12-24 08:39:00 Test Item Value Reference Range Comments TOTAL COUNTED (BEAKER) (test kpej=1177) POCT-GLUCOSE [id number] 07:47:00 Test Item Value Reference Range Comments POC-GLUCOSE METER (BEAKER) 139 mg/dL 70-110 TESTED AT [address] (test sytf=3885) [facility] [address] BASIC METABOLIC [id number] 06:50:00 Test Item Value Reference Range Comments SODIUM (BEAKER) (test 133 meq/L 136-145 lujo=286) POTASSIUM (BEAKER) (test 4.2 meq/L 3.5-5.1 bvvz=986) CHLORIDE (BEAKER) (test 102 meq/L 98-107 jocx=199) CO2 (BEAKER) (test 21 meq/L 22-29 gdqa=021) BLOOD UREA NITROGEN 27 mg/dL 7-21 (BEAKER) (test tnyf=357) CREATININE (BEAKER) (test 3.13 mg/dL 0.57-1.25 fnkl=015) GLUCOSE RANDOM (BEAKER) 100 mg/dL 70-105 (test kjfn=203) CALCIUM (BEAKER) (test 8.8 mg/dL 8.4-10.2 qjem=549) EGFR (BEAKER) (test 21 mL/min/1.73 sq m ESTIMATED GFR IS NOT srcl=7407) ACCURATE CREATININE CLEARANCE IN PREDICTING GLOMERULAR FILTRATION RATE. ESTIMATED GFR IS NOT APPLICABLE FOR DIALYSIS PATIENTS. [id number] 06:41:00 Test Item Value Reference Range Comments PHOSPHORUS (BEAKER) (test rqdk=779) 2.9 mg/dL 2.3-4.7 [id number] 06:41:00 Test Item Value Reference Range Comments MAGNESIUM (BEAKER) (test lsnt=444) 1.7 mg/dL 1.6-2.6 POCT-GLUCOSE [id number] 21:52:00 Test Item Value Reference Range Comments POC-GLUCOSE METER (BEAKER) 97 mg/dL 70-110 TESTED AT [address] (test plft=4420) [facility] [address] POCT-GLUCOSE [id number] 17:28:00 Test Item Value Reference Range Comments POC-GLUCOSE METER (BEAKER) 105 mg/dL 70-110 TESTED AT [address] (test pyjt=0561) [facility] [address] POCT-GLUCOSE [id number] 12:31:00 Test Item Value Reference Range Comments POC-GLUCOSE METER (BEAKER) 215 mg/dL 70-110 TESTED AT [facility] [address] [facility] (test eyfa=3794) [facility] [address] POCT-GLUCOSE [id number] 08:19:00 Test Item Value Reference Range Comments POC-GLUCOSE METER (BEAKER) 135 mg/dL 70-110 TESTED AT [facility] [address] [facility] (test bxxg=9660) [facility] [address] CBC W/PLT COUNT & AUTO [id number] 07:19:00 Test Item Value Reference Range Comments WHITE BLOOD CELL COUNT (BEAKER) (test cfdc=134) 15.0 K/ L 4.0-10.0 RED BLOOD CELL COUNT (BEAKER) (test lley=457) 3.04 M/ L 4.20-5.80 HEMOGLOBIN (BEAKER) (test jkpi=666) 8.8 GM/DL 13.0-16.8 HEMATOCRIT (BEAKER) (test jynt=213) 27.3 % 40.0-50.0 MEAN CORPUSCULAR VOLUME (BEAKER) (test fmtk=790) 89.8 fL 82.0-98.0 MEAN CORPUSCULAR HEMOGLOBIN (BEAKER) (test 29.0 pg 27.0-33.0 rzmj=597) MEAN CORPUSCULAR HEMOGLOBIN CONC (BEAKER) (test 32.3 GM/DL 32.0-36.0 mkmv=159) RED CELL DISTRIBUTION WIDTH (BEAKER) (test 17.0 % 10.3-14.2 uejw=667) PLATELET COUNT (BEAKER) (test ljxp=073) 285 K/CU MM 150-430 MEAN PLATELET VOLUME (BEAKER) (test lyma=665) 7.2 fL 6.5-10.5 NUCLEATED RED BLOOD CELLS (BEAKER) (test 0 /100 WBC 0-0 glhc=757) NEUTROPHILS RELATIVE PERCENT (BEAKER) (test 77 % qirx=210) LYMPHOCYTES RELATIVE PERCENT (BEAKER) (test 11 % jczc=462) MONOCYTES RELATIVE PERCENT (BEAKER) (test 11 % hrdz=271) EOSINOPHILS RELATIVE PERCENT (BEAKER) (test 1 % qdzo=235) BASOPHILS RELATIVE PERCENT (BEAKER) (test 0 % hlqx=852) NEUTROPHILS ABSOLUTE COUNT (BEAKER) (test 11.50 K/ L 1.80-8.00 hozy=872) LYMPHOCYTES ABSOLUTE COUNT (BEAKER) (test 1.72 K/ L 1.48-4.50 eirm=645) MONOCYTES ABSOLUTE COUNT (BEAKER) (test 1.59 K/ L 0.00-1.30 bwiw=838) EOSINOPHILS ABSOLUTE COUNT (BEAKER) (test 0.17 K/ L 0.00-0.50 sakr=339) BASOPHILS ABSOLUTE COUNT (BEAKER) (test 0.05 K/ L 0.00-0.20 trvt=946) [id number] 06:41:00 Test Item Value Reference Range Comments PHOSPHORUS (BEAKER) (test fcaz=489) 2.1 mg/dL 2.3-4.7 [id number] 06:41:00 Test Item Value Reference Range Comments MAGNESIUM (BEAKER) (test fxuj=522) 1.8 mg/dL 1.6-2.6 BASIC METABOLIC [id number] 06:41:00 Test Item Value Reference Range Comments SODIUM (BEAKER) (test 134 meq/L 136-145 sdoq=521) POTASSIUM (BEAKER) (test 4.2 meq/L 3.5-5.1 ycky=755) CHLORIDE (BEAKER) (test 103 meq/L 98-107 keay=686) CO2 (BEAKER) (test 23 meq/L 22-29 jjvz=165) BLOOD UREA NITROGEN 18 mg/dL 7-21 (BEAKER) (test wlie=733) CREATININE (BEAKER) (test 2.20 mg/dL 0.57-1.25 jayc=363) GLUCOSE RANDOM (BEAKER) 105 mg/dL 70-105 (test xohv=200) CALCIUM (BEAKER) (test 8.5 mg/dL 8.4-10.2 cvgu=771) EGFR (BEAKER) (test 31 mL/min/1.73 sq m ESTIMATED GFR IS NOT vccu=2865) ACCURATE CREATININE CLEARANCE IN PREDICTING GLOMERULAR FILTRATION RATE. ESTIMATED GFR IS NOT APPLICABLE FOR DIALYSIS PATIENTS. POCT-GLUCOSE [id number] 21:43:00 Test Item Value Reference Range Comments POC-GLUCOSE METER (BEAKER) 278 mg/dL 70-110 TESTED AT [facility] [address] [facility] (test gqvk=6600) [facility] [address] POCT-GLUCOSE [id number] 18:42:00 Test Item Value Reference Range Comments POC-GLUCOSE METER (BEAKER) 177 mg/dL 70-110 TESTED AT [facility] [address] [facility] (test eeqh=6795) [facility] [address] POCT-GLUCOSE [id number] 14:53:00 Test Item Value Reference Range Comments POC-GLUCOSE METER (BEAKER) 197 mg/dL 70-110 TESTED AT [facility] [address] [facility] (test kieh=1996) [facility] [address] CBC W/PLT COUNT & AUTO [id number] 12:20:00 Test Item Value Reference Range Comments WHITE BLOOD CELL COUNT (BEAKER) (test oskv=479) 13.6 K/ L 4.0-10.0 RED BLOOD CELL COUNT (BEAKER) (test gxre=697) 2.85 M/ L 4.20-5.80 HEMOGLOBIN (BEAKER) (test kltf=692) 8.3 GM/DL 13.0-16.8 HEMATOCRIT (BEAKER) (test shzy=587) 25.8 % 40.0-50.0 MEAN CORPUSCULAR VOLUME (BEAKER) (test pgkw=767) 90.6 fL 82.0-98.0 MEAN CORPUSCULAR HEMOGLOBIN (BEAKER) (test 29.3 pg 27.0-33.0 ooeh=178) MEAN CORPUSCULAR HEMOGLOBIN CONC (BEAKER) (test 32.3 GM/DL 32.0-36.0 pqge=102) RED CELL DISTRIBUTION WIDTH (BEAKER) (test 16.7 % 10.3-14.2 taka=654) PLATELET COUNT (BEAKER) (test cuzv=243) 252 K/CU MM 150-430 MEAN PLATELET VOLUME (BEAKER) (test fgoj=652) 7.4 fL 6.5-10.5 NUCLEATED RED BLOOD CELLS (BEAKER) (test 0 /100 WBC 0-0 evjl=983) NEUTROPHILS RELATIVE PERCENT (BEAKER) (test 75 % azgd=993) LYMPHOCYTES RELATIVE PERCENT (BEAKER) (test 13 % john=245) MONOCYTES RELATIVE PERCENT (BEAKER) (test 10 % eryz=611) EOSINOPHILS RELATIVE PERCENT (BEAKER) (test 2 % jmci=087) BASOPHILS RELATIVE PERCENT (BEAKER) (test 0 % pvmo=456) NEUTROPHILS ABSOLUTE COUNT (BEAKER) (test 10.20 K/ L 1.80-8.00 iqwi=265) LYMPHOCYTES ABSOLUTE COUNT (BEAKER) (test 1.78 K/ L 1.48-4.50 lhss=494) MONOCYTES ABSOLUTE COUNT (BEAKER) (test 1.32 K/ L 0.00-1.30 hgcy=896) EOSINOPHILS ABSOLUTE COUNT (BEAKER) (test 0.22 K/ L 0.00-0.50 aycp=724) BASOPHILS ABSOLUTE COUNT (BEAKER) (test 0.06 K/ L 0.00-0.20 lsav=850) 0.00POCT-GLUCOSE [id number] 08:28:00 Test Item Value Reference Range Comments POC-GLUCOSE METER (BEAKER) 132 mg/dL 70-110 TESTED AT [facility] [address] [facility] (test fapg=6039) [facility] [address] BASIC METABOLIC [id number] 07:26:00 Test Item Value Reference Range Comments SODIUM (BEAKER) (test 131 meq/L 136-145 ixqw=298) POTASSIUM (BEAKER) (test 4.2 meq/L 3.5-5.1 vsfh=026) CHLORIDE (BEAKER) (test 98 meq/L 98-107 weve=282) CO2 (BEAKER) (test 24 meq/L 22-29 giul=758) BLOOD UREA NITROGEN 25 mg/dL 7-21 (BEAKER) (test lffn=344) CREATININE (BEAKER) (test 3.02 mg/dL 0.57-1.25 qytb=478) GLUCOSE RANDOM (BEAKER) 103 mg/dL 70-105 (test swgo=931) CALCIUM (BEAKER) (test 8.1 mg/dL 8.4-10.2 zjbl=099) EGFR (BEAKER) (test 21 mL/min/1.73 sq m ESTIMATED GFR IS NOT fghk=5061) ACCURATE CREATININE CLEARANCE IN PREDICTING GLOMERULAR FILTRATION RATE. ESTIMATED GFR IS NOT APPLICABLE FOR DIALYSIS PATIENTS. [id number] 07:17:00 Test Item Value Reference Range Comments PHOSPHORUS (BEAKER) (test gmkg=746) 3.1 mg/dL 2.3-4.7 [id number] 07:17:00 Test Item Value Reference Range Comments MAGNESIUM (BEAKER) (test nzhy=699) 1.8 mg/dL 1.6-2.6 CALCIUM, [id number] 05:38:00 Test Item Value Reference Range Comments CALCIUM IONIZED (BEAKER) (test fglw=645) 1.09 mmol/L 1.12-1.27 PH, BLOOD (BEAKER) (test asmt=4149) 7.45 POCT-GLUCOSE [id number] 21:45:00 Test Item Value Reference Range Comments POC-GLUCOSE METER (BEAKER) 121 mg/dL 70-110 TESTED AT [address] (test tela=0204) [facility] [address] POCT-GLUCOSE [id number] 16:48:00 Test Item Value Reference Range Comments POC-GLUCOSE METER (BEAKER) 157 mg/dL 70-110 TESTED AT [address] (test cftj=6892) [facility] [address] POCT-GLUCOSE [id number] 12:16:00 Test Item Value Reference Range Comments POC-GLUCOSE METER (BEAKER) 247 mg/dL 70-110 TESTED AT [address] (test nxyj=7211) [facility] [address] POCT-GLUCOSE [id number] 08:14:00 Test Item Value Reference Range Comments POC-GLUCOSE METER (BEAKER) 166 mg/dL 70-110 TESTED AT [address] (test ugll=1256) [facility] [address] BASIC METABOLIC [id number] 07:58:00 Test Item Value Reference Range Comments SODIUM (BEAKER) (test 131 meq/L 136-145 bdmc=554) POTASSIUM (BEAKER) (test 3.9 meq/L 3.5-5.1 kmnv=896) CHLORIDE (BEAKER) (test 99 meq/L 98-107 rfpq=457) CO2 (BEAKER) (test 26 meq/L 22-29 qnjx=155) BLOOD UREA NITROGEN 18 mg/dL 7-21 (BEAKER) (test cxkg=362) CREATININE (BEAKER) (test 2.32 mg/dL 0.57-1.25 jztq=631) GLUCOSE RANDOM (BEAKER) 145 mg/dL 70-105 (test yqow=180) CALCIUM (BEAKER) (test 8.1 mg/dL 8.4-10.2 byqd=923) EGFR (BEAKER) (test 29 mL/min/1.73 sq m ESTIMATED GFR IS NOT ghdm=9838) ACCURATE CREATININE CLEARANCE IN PREDICTING GLOMERULAR FILTRATION RATE. ESTIMATED GFR IS NOT APPLICABLE FOR DIALYSIS PATIENTS. CBC W/PLT COUNT & AUTO [id number] 07:50:00 Test Item Value Reference Range Comments WHITE BLOOD CELL COUNT (BEAKER) (test ceqq=656) 15.3 K/ L 4.0-10.0 RED BLOOD CELL COUNT (BEAKER) (test mfdq=096) 3.00 M/ L 4.20-5.80 HEMOGLOBIN (BEAKER) (test pujx=352) 8.4 GM/DL 13.0-16.8 HEMATOCRIT (BEAKER) (test enui=516) 27.3 % 40.0-50.0 MEAN CORPUSCULAR VOLUME (BEAKER) (test rwtp=734) 90.9 fL 82.0-98.0 MEAN CORPUSCULAR HEMOGLOBIN (BEAKER) (test 28.0 pg 27.0-33.0 ektr=997) MEAN CORPUSCULAR HEMOGLOBIN CONC (BEAKER) (test 30.8 GM/DL 32.0-36.0 atti=397) RED CELL DISTRIBUTION WIDTH (BEAKER) (test 15.9 % 10.3-14.2 pmdg=675) PLATELET COUNT (BEAKER) (test ciha=221) 271 K/CU MM 150-430 MEAN PLATELET VOLUME (BEAKER) (test dcpe=165) 7.4 fL 6.5-10.5 NUCLEATED RED BLOOD CELLS (BEAKER) (test 0 /100 WBC 0-0 tbml=638) NEUTROPHILS RELATIVE PERCENT (BEAKER) (test 76 % qmmu=882) LYMPHOCYTES RELATIVE PERCENT (BEAKER) (test 14 % uasl=680) MONOCYTES RELATIVE PERCENT (BEAKER) (test 9 % khuc=617) EOSINOPHILS RELATIVE PERCENT (BEAKER) (test 1 % yhho=018) BASOPHILS RELATIVE PERCENT (BEAKER) (test 0 % rapd=441) NEUTROPHILS ABSOLUTE COUNT (BEAKER) (test 11.60 K/ L 1.80-8.00 jtqn=423) LYMPHOCYTES ABSOLUTE COUNT (BEAKER) (test 2.11 K/ L 1.48-4.50 hoec=335) MONOCYTES ABSOLUTE COUNT (BEAKER) (test 1.36 K/ L 0.00-1.30 xnxr=003) EOSINOPHILS ABSOLUTE COUNT (BEAKER) (test 0.17 K/ L 0.00-0.50 cvyu=582) BASOPHILS ABSOLUTE COUNT (BEAKER) (test 0.06 K/ L 0.00-0.20 vrbz=182) [id number] 07:24:00 Test Item Value Reference Range Comments PHOSPHORUS (BEAKER) (test btcw=405) 2.1 mg/dL 2.3-4.7 [id number] 07:24:00 Test Item Value Reference Range Comments MAGNESIUM (BEAKER) (test jwui=940) 1.6 mg/dL 1.6-2.6 POCT-GLUCOSE [id number] 20:38:00 Test Item Value Reference Range Comments POC-GLUCOSE METER (BEAKER) 191 mg/dL 70-110 TESTED AT [address] (test wrrj=1929) [place] [id number] POCT-GLUCOSE [id number] 17:32:00 Test Item Value Reference Range Comments POC-GLUCOSE METER (BEAKER) 229 mg/dL 70-110 TESTED AT [address] (test uxml=0506) [place] [id number] VANCOMYCIN LEVEL, [id number] 16:51:00 Test Item Value Reference Range Comments VANCOMYCIN TROUGH (BEAKER) (test jlwj=355) 17.2 ug/mL 10.0-20.0 At end of dialysis on 12/20/16POCT-GLUCOSE [id number] 11:49:00 Test Item Value Reference Range Comments POC-GLUCOSE METER (BEAKER) 97 mg/dL 70-110 TESTED AT [address] (test keqe=4399) [place] [id number] POCT-GLUCOSE [id number] 07:38:00 Test Item Value Reference Range Comments POC-GLUCOSE METER (BEAKER) 151 mg/dL 70-110 TESTED AT [address] (test bpvz=7640) [place] [id number] BASIC METABOLIC [id number] 06:39:00 Test Item Value Reference Range Comments SODIUM (BEAKER) (test 134 meq/L 136-145 olna=418) POTASSIUM (BEAKER) (test 3.9 meq/L 3.5-5.1 wbbo=181) CHLORIDE (BEAKER) (test 102 meq/L 98-107 iqjq=549) CO2 (BEAKER) (test 24 meq/L 22-29 fldt=814) BLOOD UREA NITROGEN 23 mg/dL 7-21 (BEAKER) (test hgqt=539) CREATININE (BEAKER) (test 2.91 mg/dL 0.57-1.25 pjpf=713) GLUCOSE RANDOM (BEAKER) 99 mg/dL 70-105 (test dmjh=020) CALCIUM (BEAKER) (test 8.2 mg/dL 8.4-10.2 fdnr=326) EGFR (BEAKER) (test 22 mL/min/1.73 sq m ESTIMATED GFR IS NOT xpar=7806) ACCURATE CREATININE CLEARANCE IN PREDICTING GLOMERULAR FILTRATION RATE. ESTIMATED GFR IS NOT APPLICABLE FOR DIALYSIS PATIENTS. [id number] 06:37:00 Test Item Value Reference Range Comments PHOSPHORUS (BEAKER) (test kmoa=555) 2.9 mg/dL 2.3-4.7 [id number] 06:37:00 Test Item Value Reference Range Comments MAGNESIUM (BEAKER) (test zhmd=510) 1.6 mg/dL 1.6-2.6 CBC W/PLT COUNT & AUTO [id number] 06:36:00 Test Item Value Reference Range Comments WHITE BLOOD CELL COUNT (BEAKER) (test rkfs=663) 14.1 K/ L 4.0-10.0 RED BLOOD CELL COUNT (BEAKER) (test gmmt=150) 3.01 M/ L 4.20-5.80 HEMOGLOBIN (BEAKER) (test mecc=313) 8.7 GM/DL 13.0-16.8 HEMATOCRIT (BEAKER) (test swkn=236) 26.8 % 40.0-50.0 MEAN CORPUSCULAR VOLUME (BEAKER) (test uqhr=413) 88.9 fL 82.0-98.0 MEAN CORPUSCULAR HEMOGLOBIN (BEAKER) (test 28.8 pg 27.0-33.0 vihu=072) MEAN CORPUSCULAR HEMOGLOBIN CONC (BEAKER) (test 32.5 GM/DL 32.0-36.0 xnog=318) RED CELL DISTRIBUTION WIDTH (BEAKER) (test 16.3 % 10.3-14.2 gbim=911) PLATELET COUNT (BEAKER) (test nuhq=907) 242 K/CU MM 150-430 MEAN PLATELET VOLUME (BEAKER) (test mymb=867) 6.9 fL 6.5-10.5 NUCLEATED RED BLOOD CELLS (BEAKER) (test 0 /100 WBC 0-0 jovf=687) NEUTROPHILS RELATIVE PERCENT (BEAKER) (test 73 % vzec=153) LYMPHOCYTES RELATIVE PERCENT (BEAKER) (test 15 % sidy=701) MONOCYTES RELATIVE PERCENT (BEAKER) (test 9 % lgnw=661) EOSINOPHILS RELATIVE PERCENT (BEAKER) (test 2 % sshz=057) BASOPHILS RELATIVE PERCENT (BEAKER) (test 0 % ulrw=098) NEUTROPHILS ABSOLUTE COUNT (BEAKER) (test 10.30 K/ L 1.80-8.00 xgxc=992) LYMPHOCYTES ABSOLUTE COUNT (BEAKER) (test 2.14 K/ L 1.48-4.50 mgon=730) MONOCYTES ABSOLUTE COUNT (BEAKER) (test 1.33 K/ L 0.00-1.30 rgvb=373) EOSINOPHILS ABSOLUTE COUNT (BEAKER) (test 0.29 K/ L 0.00-0.50 rtzi=449) BASOPHILS ABSOLUTE COUNT (BEAKER) (test 0.06 K/ L 0.00-0.20 dzml=692) 0.00CALCIUM, [id number] 06:24:00 Test Item Value Reference Range Comments CALCIUM IONIZED (BEAKER) (test vtch=819) 1.08 mmol/L 1.12-1.27 PH, BLOOD (BEAKER) (test jmea=8087) 7.46 POCT-GLUCOSE [id number] 22:24:00 Test Item Value Reference Range Comments POC-GLUCOSE METER (BEAKER) 166 mg/dL 70-110 TESTED AT [address] (test jdxk=6925) [facility] [address] POCT-GLUCOSE [id number] 16:17:00 Test Item Value Reference Range Comments POC-GLUCOSE METER (BEAKER) 132 mg/dL 70-110 TESTED AT [address] (test trvq=7955) [facility] [address] POCT-GLUCOSE [id number] 12:16:00 Test Item Value Reference Range Comments POC-GLUCOSE METER (BEAKER) 90 mg/dL 70-110 TESTED AT [address] (test fjbq=3678) [facility] [address] POCT-GLUCOSE [id number] 08:13:00 Test Item Value Reference Range Comments POC-GLUCOSE METER (BEAKER) 111 mg/dL 70-110 TESTED AT [facility] [address] (test lryl=0609) [place] [address] CBC W/PLT COUNT & AUTO [id number] 07:40:00 Test Item Value Reference Range Comments WHITE BLOOD CELL COUNT (BEAKER) (test hceh=677) 11.9 K/ L 4.0-10.0 RED BLOOD CELL COUNT (BEAKER) (test abdl=364) 3.11 M/ L 4.20-5.80 HEMOGLOBIN (BEAKER) (test kwup=182) 8.9 GM/DL 13.0-16.8 HEMATOCRIT (BEAKER) (test ljgf=242) 28.0 % 40.0-50.0 MEAN CORPUSCULAR VOLUME (BEAKER) (test cctc=299) 90.3 fL 82.0-98.0 MEAN CORPUSCULAR HEMOGLOBIN (BEAKER) (test 28.7 pg 27.0-33.0 dnwd=015) MEAN CORPUSCULAR HEMOGLOBIN CONC (BEAKER) (test 31.8 GM/DL 32.0-36.0 sdnm=707) RED CELL DISTRIBUTION WIDTH (BEAKER) (test 15.5 % 10.3-14.2 gawn=928) PLATELET COUNT (BEAKER) (test uizd=157) 252 K/CU MM 150-430 MEAN PLATELET VOLUME (BEAKER) (test bems=463) 7.1 fL 6.5-10.5 NUCLEATED RED BLOOD CELLS (BEAKER) (test 0 /100 WBC 0-0 fgfm=613) NEUTROPHILS RELATIVE PERCENT (BEAKER) (test 69 % eckk=389) LYMPHOCYTES RELATIVE PERCENT (BEAKER) (test 18 % doio=856) MONOCYTES RELATIVE PERCENT (BEAKER) (test 11 % fwje=089) EOSINOPHILS RELATIVE PERCENT (BEAKER) (test 2 % krzg=422) BASOPHILS RELATIVE PERCENT (BEAKER) (test 0 % ntey=783) NEUTROPHILS ABSOLUTE COUNT (BEAKER) (test 8.27 K/ L 1.80-8.00 pdwr=960) LYMPHOCYTES ABSOLUTE COUNT (BEAKER) (test 2.09 K/ L 1.48-4.50 odlw=530) MONOCYTES ABSOLUTE COUNT (BEAKER) (test 1.35 K/ L 0.00-1.30 nhqg=650) EOSINOPHILS ABSOLUTE COUNT (BEAKER) (test 0.19 K/ L 0.00-0.50 wvjn=958) BASOPHILS ABSOLUTE COUNT (BEAKER) (test 0.04 K/ L 0.00-0.20 nlvv=565) [id number] 07:29:00 Test Item Value Reference Range Comments PHOSPHORUS (BEAKER) (test iaad=230) 1.8 mg/dL 2.3-4.7 [id number] 07:29:00 Test Item Value Reference Range Comments MAGNESIUM (BEAKER) (test fxde=624) 1.6 mg/dL 1.6-2.6 BASIC METABOLIC [id number] 07:29:00 Test Item Value Reference Range Comments SODIUM (BEAKER) (test 135 meq/L 136-145 awfr=666) POTASSIUM (BEAKER) (test 3.7 meq/L 3.5-5.1 ssbr=549) CHLORIDE (BEAKER) (test 104 meq/L 98-107 lift=102) CO2 (BEAKER) (test 24 meq/L 22-29 zhag=839) BLOOD UREA NITROGEN 12 mg/dL 7-21 (BEAKER) (test hbpn=453) CREATININE (BEAKER) (test 2.00 mg/dL 0.57-1.25 rnvv=536) GLUCOSE RANDOM (BEAKER) 81 mg/dL 70-105 (test kvnr=787) CALCIUM (BEAKER) (test 8.2 mg/dL 8.4-10.2 wdkj=213) EGFR (BEAKER) (test 34 mL/min/1.73 sq m ESTIMATED GFR IS NOT gxfl=9982) ACCURATE CREATININE CLEARANCE IN PREDICTING GLOMERULAR FILTRATION RATE. ESTIMATED GFR IS NOT APPLICABLE FOR DIALYSIS PATIENTS. POCT-GLUCOSE [id number] 21:13:00 Test Item Value Reference Range Comments POC-GLUCOSE METER (BEAKER) 107 mg/dL 70-110 TESTED AT [address] (test mfuc=4754) [facility] [address] POCT-GLUCOSE [id number] 17:33:00 Test Item Value Reference Range Comments POC-GLUCOSE METER (BEAKER) 131 mg/dL 70-110 TESTED AT [address] (test acqi=8252) [facility] [address] POCT-GLUCOSE [id number] 13:05:00 Test Item Value Reference Range Comments POC-GLUCOSE METER (BEAKER) 188 mg/dL 70-110 TESTED AT [facility] [address] [facility] (test ahbt=3815) [facility] [address] POCT-GLUCOSE [id number] 09:01:00 Test Item Value Reference Range Comments POC-GLUCOSE METER (BEAKER) 103 mg/dL 70-110 TESTED AT [facility] [address] [facility] (test ynlj=8181) [facility] [address] CBC W/PLT COUNT & AUTO [id number] 07:08:00 Test Item Value Reference Range Comments WHITE BLOOD CELL COUNT (BEAKER) (test sady=559) 12.7 K/ L 4.0-10.0 RED BLOOD CELL COUNT (BEAKER) (test uwof=151) 3.09 M/ L 4.20-5.80 HEMOGLOBIN (BEAKER) (test tszt=213) 9.0 GM/DL 13.0-16.8 HEMATOCRIT (BEAKER) (test phho=934) 27.4 % 40.0-50.0 MEAN CORPUSCULAR VOLUME (BEAKER) (test uuwp=989) 88.8 fL 82.0-98.0 MEAN CORPUSCULAR HEMOGLOBIN (BEAKER) (test 29.0 pg 27.0-33.0 nqkb=503) MEAN CORPUSCULAR HEMOGLOBIN CONC (BEAKER) (test 32.7 GM/DL 32.0-36.0 xylr=128) RED CELL DISTRIBUTION WIDTH (BEAKER) (test 15.7 % 10.3-14.2 ckoj=025) PLATELET COUNT (BEAKER) (test kmvc=256) 257 K/CU MM 150-430 MEAN PLATELET VOLUME (BEAKER) (test ymcc=766) 7.0 fL 6.5-10.5 NUCLEATED RED BLOOD CELLS (BEAKER) (test 0 /100 WBC 0-0 tebq=132) NEUTROPHILS RELATIVE PERCENT (BEAKER) (test 74 % lrhq=322) LYMPHOCYTES RELATIVE PERCENT (BEAKER) (test 14 % ytkg=893) MONOCYTES RELATIVE PERCENT (BEAKER) (test 9 % vwgv=124) EOSINOPHILS RELATIVE PERCENT (BEAKER) (test 2 % rflx=569) BASOPHILS RELATIVE PERCENT (BEAKER) (test 0 % htvx=741) NEUTROPHILS ABSOLUTE COUNT (BEAKER) (test 9.38 K/ L 1.80-8.00 uufl=656) LYMPHOCYTES ABSOLUTE COUNT (BEAKER) (test 1.80 K/ L 1.48-4.50 lzod=418) MONOCYTES ABSOLUTE COUNT (BEAKER) (test 1.20 K/ L 0.00-1.30 ahmp=897) EOSINOPHILS ABSOLUTE COUNT (BEAKER) (test 0.24 K/ L 0.00-0.50 iclt=214) BASOPHILS ABSOLUTE COUNT (BEAKER) (test 0.05 K/ L 0.00-0.20 ksmj=034) [id number] 06:17:00 Test Item Value Reference Range Comments PHOSPHORUS (BEAKER) (test onjt=674) 2.4 mg/dL 2.3-4.7 [id number] 06:17:00 Test Item Value Reference Range Comments MAGNESIUM (BEAKER) (test ygfa=577) 1.5 mg/dL 1.6-2.6 BASIC METABOLIC [id number] 06:17:00 Test Item Value Reference Range Comments SODIUM (BEAKER) (test 135 meq/L 136-145 tqlp=663) POTASSIUM (BEAKER) (test 3.7 meq/L 3.5-5.1 dtpi=603) CHLORIDE (BEAKER) (test 104 meq/L 98-107 yhhn=551) CO2 (BEAKER) (test 23 meq/L 22-29 tair=398) BLOOD UREA NITROGEN 24 mg/dL 7-21 (BEAKER) (test zynf=370) CREATININE (BEAKER) (test 2.70 mg/dL 0.57-1.25 qrfr=837) GLUCOSE RANDOM (BEAKER) 93 mg/dL 70-105 (test tsqu=387) CALCIUM (BEAKER) (test 8.4 mg/dL 8.4-10.2 qscc=858) EGFR (BEAKER) (test 24 mL/min/1.73 sq m ESTIMATED GFR IS NOT igxu=0639) ACCURATE CREATININE CLEARANCE IN PREDICTING GLOMERULAR FILTRATION RATE. ESTIMATED GFR IS NOT APPLICABLE FOR DIALYSIS PATIENTS. POCT-GLUCOSE [id number] 23:43:00 Test Item Value Reference Range Comments POC-GLUCOSE METER (BEAKER) 100 mg/dL 70-110 TESTED AT [facility] [address] [facility] (test rnbj=7021) [facility] [address] POCT-GLUCOSE [id number] 17:44:00 Test Item Value Reference Range Comments POC-GLUCOSE METER (BEAKER) 208 mg/dL 70-110 TESTED AT [address] (test cexp=3534) [place] [address] ANAEROBIC [id number] 14:43:00 Test Item Value Reference Range Comments CULTURE (BEAKER) (test tpjj=6870) No anaerobes isolated ANAEROBIC [id number] 14:42:00 Test Item Value Reference Range Comments CULTURE (BEAKER) (test rjem=9588) No anaerobes isolated POCT-GLUCOSE [id number] 12:02:00 Test Item Value Reference Range Comments POC-GLUCOSE METER (BEAKER) 208 mg/dL 70-110 TESTED AT [address] (test tfbm=3166) [place] [address] POCT-GLUCOSE [id number] 09:52:00 Test Item Value Reference Range Comments POC-GLUCOSE METER (BEAKER) 86 mg/dL 70-110 TESTED AT [address] (test ifrh=4295) [place] [address] CBC W/PLT COUNT & AUTO [id number] 07:11:00 Test Item Value Reference Range Comments WHITE BLOOD CELL COUNT (BEAKER) (test gucz=807) 11.1 K/ L 4.0-10.0 RED BLOOD CELL COUNT (BEAKER) (test xhol=204) 3.26 M/ L 4.20-5.80 HEMOGLOBIN (BEAKER) (test myux=604) 9.6 GM/DL 13.0-16.8 HEMATOCRIT (BEAKER) (test gyto=304) 29.4 % 40.0-50.0 MEAN CORPUSCULAR VOLUME (BEAKER) (test zira=115) 90.2 fL 82.0-98.0 MEAN CORPUSCULAR HEMOGLOBIN (BEAKER) (test 29.5 pg 27.0-33.0 wmko=313) MEAN CORPUSCULAR HEMOGLOBIN CONC (BEAKER) (test 32.7 GM/DL 32.0-36.0 ioiu=727) RED CELL DISTRIBUTION WIDTH (BEAKER) (test 14.7 % 10.3-14.2 rtyl=162) PLATELET COUNT (BEAKER) (test wvvw=574) 280 K/CU MM 150-430 MEAN PLATELET VOLUME (BEAKER) (test cilp=570) 6.8 fL 6.5-10.5 NUCLEATED RED BLOOD CELLS (BEAKER) (test 0 /100 WBC 0-0 zrpp=821) NEUTROPHILS RELATIVE PERCENT (BEAKER) (test 73 % gnza=212) LYMPHOCYTES RELATIVE PERCENT (BEAKER) (test 15 % bzfk=605) MONOCYTES RELATIVE PERCENT (BEAKER) (test 10 % jqya=716) EOSINOPHILS RELATIVE PERCENT (BEAKER) (test 2 % folr=322) BASOPHILS RELATIVE PERCENT (BEAKER) (test 0 % gzqx=224) NEUTROPHILS ABSOLUTE COUNT (BEAKER) (test 8.08 K/ L 1.80-8.00 xlvu=379) LYMPHOCYTES ABSOLUTE COUNT (BEAKER) (test 1.66 K/ L 1.48-4.50 fbtm=070) MONOCYTES ABSOLUTE COUNT (BEAKER) (test 1.06 K/ L 0.00-1.30 ylha=793) EOSINOPHILS ABSOLUTE COUNT (BEAKER) (test 0.26 K/ L 0.00-0.50 biho=067) BASOPHILS ABSOLUTE COUNT (BEAKER) (test 0.05 K/ L 0.00-0.20 gfer=532) [id number] 06:02:00 Test Item Value Reference Range Comments PHOSPHORUS (BEAKER) (test fomd=879) 1.7 mg/dL 2.3-4.7 [id number] 06:02:00 Test Item Value Reference Range Comments MAGNESIUM (BEAKER) (test cvcd=718) 1.5 mg/dL 1.6-2.6 BASIC METABOLIC [id number] 06:02:00 Test Item Value Reference Range Comments SODIUM (BEAKER) (test 136 meq/L 136-145 uahc=573) POTASSIUM (BEAKER) (test 3.9 meq/L 3.5-5.1 uloe=491) CHLORIDE (BEAKER) (test 103 meq/L 98-107 yqms=831) CO2 (BEAKER) (test 25 meq/L 22-29 lobq=811) BLOOD UREA NITROGEN 13 mg/dL 7-21 (BEAKER) (test suim=789) CREATININE (BEAKER) (test 1.67 mg/dL 0.57-1.25 hobo=823) GLUCOSE RANDOM (BEAKER) 74 mg/dL 70-105 (test ygjk=142) CALCIUM (BEAKER) (test 8.7 mg/dL 8.4-10.2 ahps=520) EGFR (BEAKER) (test 42 mL/min/1.73 sq m ESTIMATED GFR IS NOT mlfw=5096) ACCURATE CREATININE CLEARANCE IN PREDICTING GLOMERULAR FILTRATION RATE. ESTIMATED GFR IS NOT APPLICABLE FOR DIALYSIS PATIENTS. POCT-GLUCOSE [id number] 21:46:00 Test Item Value Reference Range Comments POC-GLUCOSE METER (BEAKER) 83 mg/dL 70-110 TESTED AT [address] (test apbo=2495) [place] [address] POCT-GLUCOSE [id number] 17:45:00 Test Item Value Reference Range Comments POC-GLUCOSE METER (BEAKER) 83 mg/dL 70-110 TESTED AT [address] (test puoe=1286) [place] [id number] POCT-GLUCOSE [id number] 11:03:00 Test Item Value Reference Range Comments POC-GLUCOSE METER (BEAKER) 152 mg/dL 70-110 TESTED AT [address] (test onmj=4116) [place] [id number] CBC W/PLT COUNT & AUTO [id number] 08:54:00 Test Item Value Reference Range Comments WHITE BLOOD CELL COUNT (BEAKER) (test akth=091) 14.2 K/ L 4.0-10.0 RED BLOOD CELL COUNT (BEAKER) (test cjrn=547) 2.99 M/ L 4.20-5.80 HEMOGLOBIN (BEAKER) (test akfy=347) 8.6 GM/DL 13.0-16.8 HEMATOCRIT (BEAKER) (test zftf=941) 27.1 % 40.0-50.0 MEAN CORPUSCULAR VOLUME (BEAKER) (test jhcj=993) 90.6 fL 82.0-98.0 MEAN CORPUSCULAR HEMOGLOBIN (BEAKER) (test 28.6 pg 27.0-33.0 bxnd=653) MEAN CORPUSCULAR HEMOGLOBIN CONC (BEAKER) (test 31.6 GM/DL 32.0-36.0 xred=852) RED CELL DISTRIBUTION WIDTH (BEAKER) (test 14.6 % 10.3-14.2 ivlf=634) PLATELET COUNT (BEAKER) (test xtos=243) 285 K/CU MM 150-430 MEAN PLATELET VOLUME (BEAKER) (test tcwl=014) 7.1 fL 6.5-10.5 NUCLEATED RED BLOOD CELLS (BEAKER) (test 0 /100 WBC 0-0 gpbo=045) NEUTROPHILS RELATIVE PERCENT (BEAKER) (test 79 % efae=469) LYMPHOCYTES RELATIVE PERCENT (BEAKER) (test 10 % ojdp=103) MONOCYTES RELATIVE PERCENT (BEAKER) (test 9 % dskx=930) EOSINOPHILS RELATIVE PERCENT (BEAKER) (test 2 % jicm=162) BASOPHILS RELATIVE PERCENT (BEAKER) (test 0 % unzx=988) NEUTROPHILS ABSOLUTE COUNT (BEAKER) (test 11.20 K/ L 1.80-8.00 jvli=533) LYMPHOCYTES ABSOLUTE COUNT (BEAKER) (test 1.40 K/ L 1.48-4.50 scvq=940) MONOCYTES ABSOLUTE COUNT (BEAKER) (test 1.30 K/ L 0.00-1.30 wyhw=037) EOSINOPHILS ABSOLUTE COUNT (BEAKER) (test 0.27 K/ L 0.00-0.50 auxc=291) BASOPHILS ABSOLUTE COUNT (BEAKER) (test 0.04 K/ L 0.00-0.20 zfpa=318) 0.00BASIC METABOLIC [id number] 08:46:00 Test Item Value Reference Range Comments SODIUM (BEAKER) (test 138 meq/L 136-145 svyf=608) POTASSIUM (BEAKER) (test 3.8 meq/L 3.5-5.1 okjh=795) CHLORIDE (BEAKER) (test 103 meq/L 98-107 yesk=213) CO2 (BEAKER) (test 25 meq/L 22-29 ysvp=850) BLOOD UREA NITROGEN 29 mg/dL 7-21 (BEAKER) (test fscl=975) CREATININE (BEAKER) (test 2.68 mg/dL 0.57-1.25 tpie=765) GLUCOSE RANDOM (BEAKER) 91 mg/dL 70-105 (test phyz=897) CALCIUM (BEAKER) (test 7.9 mg/dL 8.4-10.2 bwxy=495) EGFR (BEAKER) (test 25 mL/min/1.73 sq m ESTIMATED GFR IS NOT bvrx=1581) ACCURATE CREATININE CLEARANCE IN PREDICTING GLOMERULAR FILTRATION RATE. ESTIMATED GFR IS NOT APPLICABLE FOR DIALYSIS PATIENTS. VANCOMYCIN LEVEL, [id number] 07:53:00 Test Item Value Reference Range Comments VANCOMYCIN RANDOM (BEAKER) (test ozen=380) 15.1 ug/mL Reference Range: No NormalsPOCT-GLUCOSE [id number] 07:52:00 Test Item Value Reference Range Comments POC-GLUCOSE METER (BEAKER) 126 mg/dL 70-110 TESTED AT [address] (test pjtf=1491) [place] [address] [id number] 07:50:00 Test Item Value Reference Range Comments PHOSPHORUS (BEAKER) (test pnyh=404) 2.1 mg/dL 2.3-4.7 [id number] 07:50:00 Test Item Value Reference Range Comments MAGNESIUM (BEAKER) (test rdem=851) 1.7 mg/dL 1.6-2.6 POCT-GLUCOSE [id number] 21:08:00 Test Item Value Reference Range Comments POC-GLUCOSE METER (BEAKER) 234 mg/dL 70-110 TESTED AT [address] (test keqw=3444) [place] [address] POCT-GLUCOSE [id number] 17:02:00 Test Item Value Reference Range Comments POC-GLUCOSE METER (BEAKER) 230 mg/dL 70-110 TESTED AT [address] (test khdo=0271) [place] [address] SURGICALLY OBTAINED CULTURE + GRAM [id number] 09:26:00 Test Item Value Reference Range Comments CULTURE (BEAKER) (test <1+ Same organism has been qrqn=7034) isolated from cultures(s) of the same body site and collection date. Repeat identification and susceptibility testing performed only after consultation with the clinical microbiology laboratory.Refer to previous culture ofMethicillin resistant Staphylococcus aureus GRAM STAIN RESULT <1+ WBCs (BEAKER) (test yiaf=5918) GRAM STAIN RESULT No organisms seen (BEAKER) (test hlef=638149) SURGICALLY OBTAINED CULTURE + GRAM [id number] 09:25:00 Test Item Value Reference Range Comments CULTURE (BEAKER) (test METHICILLIN RESISTANT <1+ Methicillin ajqh=0365) STAPHYLOCOCCUS AUREUS resistant Staphylococcus aureus Clindamycin (test code=10) Erythromycin (test code=4) Linezolid (test code=40) Oxacillin (test code=14) Rifampin (test code=43) Tetracycline (test code=2) Trimethoprim + Sulfamethoxazole (test code=47) Vancomycin (test code=13) CULTURE (BEAKER) (test METHICILLIN RESISTANT <1+ Methicillin xwww=83853) STAPHYLOCOCCUS AUREUS resistant Staphylococcus aureusof a second type Clindamycin (test code=10) Erythromycin (test code=4) Linezolid (test code=40) Oxacillin (test code=14) Rifampin (test code=43) Tetracycline (test code=2) Trimethoprim + Sulfamethoxazole (test code=47) Vancomycin (test code=13) GRAM STAIN RESULT No White blood cells (BEAKER) (test vodg=7911) seen GRAM STAIN RESULT No organisms seen (BEAKER) (test zzbz=397424) POCT-GLUCOSE [id number] 08:39:00 Test Item Value Reference Range Comments POC-GLUCOSE METER (BEAKER) 129 mg/dL 70-110 TESTED AT [facility] [address] [facility] (test nuih=1274) [facility] [address] CBC W/PLT COUNT & AUTO [id number] 06:51:00 Test Item Value Reference Range Comments WHITE BLOOD CELL COUNT (BEAKER) (test ahmt=494) 17.4 K/ L 4.0-10.0 RED BLOOD CELL COUNT (BEAKER) (test cscm=785) 2.99 M/ L 4.20-5.80 HEMOGLOBIN (BEAKER) (test kdcl=105) 8.9 GM/DL 13.0-16.8 HEMATOCRIT (BEAKER) (test jkkk=624) 27.1 % 40.0-50.0 MEAN CORPUSCULAR VOLUME (BEAKER) (test fken=817) 90.6 fL 82.0-98.0 MEAN CORPUSCULAR HEMOGLOBIN (BEAKER) (test 29.6 pg 27.0-33.0 vdwm=556) MEAN CORPUSCULAR HEMOGLOBIN CONC (BEAKER) (test 32.7 GM/DL 32.0-36.0 lmth=962) RED CELL DISTRIBUTION WIDTH (BEAKER) (test 15.3 % 10.3-14.2 lczj=810) PLATELET COUNT (BEAKER) (test feoj=016) 246 K/CU MM 150-430 MEAN PLATELET VOLUME (BEAKER) (test ipix=147) 6.7 fL 6.5-10.5 NUCLEATED RED BLOOD CELLS (BEAKER) (test 0 /100 WBC 0-0 wizr=198) NEUTROPHILS RELATIVE PERCENT (BEAKER) (test 83 % idpg=962) LYMPHOCYTES RELATIVE PERCENT (BEAKER) (test 7 % tjrp=201) MONOCYTES RELATIVE PERCENT (BEAKER) (test 9 % rpna=485) EOSINOPHILS RELATIVE PERCENT (BEAKER) (test 1 % efyi=750) BASOPHILS RELATIVE PERCENT (BEAKER) (test 0 % iklz=317) NEUTROPHILS ABSOLUTE COUNT (BEAKER) (test 14.50 K/ L 1.80-8.00 ymvt=639) LYMPHOCYTES ABSOLUTE COUNT (BEAKER) (test 1.19 K/ L 1.48-4.50 yquh=928) MONOCYTES ABSOLUTE COUNT (BEAKER) (test 1.56 K/ L 0.00-1.30 nfjo=078) EOSINOPHILS ABSOLUTE COUNT (BEAKER) (test 0.13 K/ L 0.00-0.50 uork=433) BASOPHILS ABSOLUTE COUNT (BEAKER) (test 0.03 K/ L 0.00-0.20 zxdy=217) 0.00BASIC METABOLIC [id number] 05:44:00 Test Item Value Reference Range Comments SODIUM (BEAKER) (test 139 meq/L 136-145 fjka=165) POTASSIUM (BEAKER) (test 3.7 meq/L 3.5-5.1 ztvh=692) CHLORIDE (BEAKER) (test 104 meq/L 98-107 khyq=726) CO2 (BEAKER) (test 26 meq/L 22-29 fblk=685) BLOOD UREA NITROGEN 19 mg/dL 7-21 (BEAKER) (test xxhr=301) CREATININE (BEAKER) (test 2.08 mg/dL 0.57-1.25 cils=267) GLUCOSE RANDOM (BEAKER) 127 mg/dL 70-105 (test mbgc=570) CALCIUM (BEAKER) (test 7.9 mg/dL 8.4-10.2 rfgv=952) EGFR (BEAKER) (test 33 mL/min/1.73 sq m ESTIMATED GFR IS NOT ercj=3732) ACCURATE CREATININE CLEARANCE IN PREDICTING GLOMERULAR FILTRATION RATE. ESTIMATED GFR IS NOT APPLICABLE FOR DIALYSIS PATIENTS. [id number] 05:42:00 Test Item Value Reference Range Comments PHOSPHORUS (BEAKER) (test idvh=391) 2.3 mg/dL 2.3-4.7 [id number] 05:42:00 Test Item Value Reference Range Comments MAGNESIUM (BEAKER) (test scpm=015) 1.7 mg/dL 1.6-2.6 CALCIUM, [id number] 05:21:00 Test Item Value Reference Range Comments CALCIUM IONIZED (BEAKER) (test podb=434) 0.99 mmol/L 1.12-1.27 PH, BLOOD (BEAKER) (test dtoi=1101) 7.44 POCT-GLUCOSE [id number] 21:08:00 Test Item Value Reference Range Comments POC-GLUCOSE METER (BEAKER) 184 mg/dL 70-110 TESTED AT [address] (test lelb=5179) [facility] [address] POCT-GLUCOSE [id number] 18:10:00 Test Item Value Reference Range Comments POC-GLUCOSE METER (BEAKER) 214 mg/dL 70-110 TESTED AT [address] (test ctst=0145) [facility] [address] POCT-GLUCOSE [id number] 18:04:00 Test Item Value Reference Range Comments POC-GLUCOSE METER (BEAKER) 169 mg/dL 70-110 TESTED AT [address] (test ufjr=9304) [facility] [address] POCT-GLUCOSE [id number] 11:49:00 Test Item Value Reference Range Comments POC-GLUCOSE METER (BEAKER) 126 mg/dL 70-110 TESTED AT [address] (test gnpy=7019) [facility] [address] POCT-GLUCOSE [id number] 08:17:00 Test Item Value Reference Range Comments POC-GLUCOSE METER (BEAKER) 119 mg/dL 70-110 TESTED AT [address] (test hwsx=9334) [facility] [address] VANCOMYCIN LEVEL, [id number] 06:32:00 Test Item Value Reference Range Comments VANCOMYCIN RANDOM (BEAKER) (test ilhk=619) 13.8 ug/mL Reference Range: No NormalsPOCT-GLUCOSE [id number] 05:54:00 Test Item Value Reference Range Comments POC-GLUCOSE METER (BEAKER) 122 mg/dL 70-110 TESTED AT [address] (test tchd=8422) [facility] [address] B-TYPE NATRIURETIC FACTOR (BNP)2016-12-14 03:44:00 Test Item Value Reference Range Comments B-TYPE NATRIURETIC PEPTIDE (BEAKER) (test 883 pg/mL 0-100 ahws=313) BASIC METABOLIC [id number] 03:40:00 Test Item Value Reference Range Comments SODIUM (BEAKER) (test 140 meq/L 136-145 swat=287) POTASSIUM (BEAKER) (test 4.5 meq/L 3.5-5.1 uejv=919) CHLORIDE (BEAKER) (test 109 meq/L 98-107 rucx=194) CO2 (BEAKER) (test 23 meq/L 22-29 obav=707) BLOOD UREA NITROGEN 21 mg/dL 7-21 (BEAKER) (test ygfg=050) CREATININE (BEAKER) (test 2.96 mg/dL 0.57-1.25 uilp=793) GLUCOSE RANDOM (BEAKER) 118 mg/dL 70-105 (test vbgc=000) CALCIUM (BEAKER) (test 7.5 mg/dL 8.4-10.2 cowm=973) EGFR (BEAKER) (test 22 mL/min/1.73 sq m ESTIMATED GFR IS NOT oijf=8122) ACCURATE CREATININE CLEARANCE IN PREDICTING GLOMERULAR FILTRATION RATE. ESTIMATED GFR IS NOT APPLICABLE FOR DIALYSIS PATIENTS. [id number] 03:37:00 Test Item Value Reference Range Comments PHOSPHORUS (BEAKER) (test xcjs=022) 4.6 mg/dL 2.3-4.7 [id number] 03:37:00 Test Item Value Reference Range Comments MAGNESIUM (BEAKER) (test xdjs=860) 1.7 mg/dL 1.6-2.6 CBC W/PLT COUNT & AUTO [id number] 03:36:00 Test Item Value Reference Range Comments WHITE BLOOD CELL COUNT (BEAKER) (test aqan=786) 23.8 K/ L 4.0-10.0 RED BLOOD CELL COUNT (BEAKER) (test ijye=692) 2.80 M/ L 4.20-5.80 HEMOGLOBIN (BEAKER) (test nlye=448) 8.3 GM/DL 13.0-16.8 HEMATOCRIT (BEAKER) (test jjde=849) 25.7 % 40.0-50.0 MEAN CORPUSCULAR VOLUME (BEAKER) (test ltqj=338) 91.8 fL 82.0-98.0 MEAN CORPUSCULAR HEMOGLOBIN (BEAKER) (test 29.6 pg 27.0-33.0 zoab=262) MEAN CORPUSCULAR HEMOGLOBIN CONC (BEAKER) (test 32.2 GM/DL 32.0-36.0 rtdb=908) RED CELL DISTRIBUTION WIDTH (BEAKER) (test 14.8 % 10.3-14.2 cqge=315) PLATELET COUNT (BEAKER) (test hizs=389) 261 K/CU MM 150-430 MEAN PLATELET VOLUME (BEAKER) (test vncp=515) 6.4 fL 6.5-10.5 NUCLEATED RED BLOOD CELLS (BEAKER) (test 0 /100 WBC 0-0 ztgi=759) NEUTROPHILS RELATIVE PERCENT (BEAKER) (test 88 % qmom=019) LYMPHOCYTES RELATIVE PERCENT (BEAKER) (test 6 % hgzi=773) MONOCYTES RELATIVE PERCENT (BEAKER) (test 6 % roqa=954) EOSINOPHILS RELATIVE PERCENT (BEAKER) (test 0 % wbvo=930) BASOPHILS RELATIVE PERCENT (BEAKER) (test 0 % szhg=823) NEUTROPHILS ABSOLUTE COUNT (BEAKER) (test 21.00 K/ L 1.80-8.00 fyfi=405) LYMPHOCYTES ABSOLUTE COUNT (BEAKER) (test 1.16 K/ L 1.48-4.50 mvcm=161) MONOCYTES ABSOLUTE COUNT (BEAKER) (test 1.53 K/ L 0.00-1.30 ahpc=969) EOSINOPHILS ABSOLUTE COUNT (BEAKER) (test 0.08 K/ L 0.00-0.50 fwct=478) BASOPHILS ABSOLUTE COUNT (BEAKER) (test 0.03 K/ L 0.00-0.20 ijsw=838) 0.00CALCIUM, [id number] 03:20:00 Test Item Value Reference Range Comments CALCIUM IONIZED (BEAKER) (test njak=539) 1.02 mmol/L 1.12-1.27 PH, BLOOD (BEAKER) (test bopr=8477) 7.44 POCT-GLUCOSE [id number] 23:20:00 Test Item Value Reference Range Comments POC-GLUCOSE METER (BEAKER) 129 mg/dL 70-110 TESTED AT [address] (test rarq=8568) [facility] [address] POCT-GLUCOSE [id number] 16:47:00 Test Item Value Reference Range Comments POC-GLUCOSE METER (BEAKER) 120 mg/dL 70-110 TESTED AT [place] [id number] [facility] (test gabh=0318) [facility] [address] SPIN/CONCENTRATION [id number] 13:52:00 Test Item Value Reference Range Comments CONCENTRATION CHARGED (BEAKER) (test gpyn=8932) Done SPIN/CONCENTRATION [id number] 13:52:00 Test Item Value Reference Range Comments CONCENTRATION CHARGED (BEAKER) (test vqoc=6561) Done BLOOD GAS, [id number] 08:32:00 Test Item Value Reference Range Comments PH ARTERIAL (BEAKER) (test vjrb=216) 7.41 7.35-7.45 PCO2 ARTERIAL (BEAKER) (test gxjk=580) 45 mmHg 35-45 PO2 ARTERIAL (BEAKER) (test bhlm=430) 137 mmHg 80-90 O2 SATURATION ARTERIAL (BEAKER) (test gelh=069) 98.7 % 96.0-97.0 HCO3 ARTERIAL (BEAKER) (test vcgr=428) 28 mmol/L 21-29 BASE EXCESS ARTERIAL (BEAKER) (test vpsu=396) 2.8 mmol/L -2.0-3.0 PATIENT TEMPERATURE (BEAKER) (test lzmt=5970) 37.0 C FIO2 (BEAKER) (test mumf=4281) 40.0 % CBC W/PLT COUNT & AUTO [id number] 08:04:00 Test Item Value Reference Range Comments WHITE BLOOD CELL COUNT (BEAKER) (test jhoa=446) 23.6 K/ L 4.0-10.0 RED BLOOD CELL COUNT (BEAKER) (test ohwp=870) 3.04 M/ L 4.20-5.80 HEMOGLOBIN (BEAKER) (test tycb=652) 8.9 GM/DL 13.0-16.8 HEMATOCRIT (BEAKER) (test bqbn=889) 26.9 % 40.0-50.0 MEAN CORPUSCULAR VOLUME (BEAKER) (test tyqp=457) 88.6 fL 82.0-98.0 MEAN CORPUSCULAR HEMOGLOBIN (BEAKER) (test 29.4 pg 27.0-33.0 gdpr=645) MEAN CORPUSCULAR HEMOGLOBIN CONC (BEAKER) (test 33.2 GM/DL 32.0-36.0 uvbe=648) RED CELL DISTRIBUTION WIDTH (BEAKER) (test 15.4 % 10.3-14.2 lsuw=823) PLATELET COUNT (BEAKER) (test oowx=045) 291 K/CU MM 150-430 MEAN PLATELET VOLUME (BEAKER) (test lzvw=903) 6.9 fL 6.5-10.5 NUCLEATED RED BLOOD CELLS (BEAKER) (test 0 /100 WBC 0-0 strd=424) NEUTROPHILS RELATIVE PERCENT (BEAKER) (test 89 % lhul=365) LYMPHOCYTES RELATIVE PERCENT (BEAKER) (test 5 % soze=368) MONOCYTES RELATIVE PERCENT (BEAKER) (test 6 % hzym=195) EOSINOPHILS RELATIVE PERCENT (BEAKER) (test 0 % frbk=927) BASOPHILS RELATIVE PERCENT (BEAKER) (test 0 % sexq=534) NEUTROPHILS ABSOLUTE COUNT (BEAKER) (test 21.00 K/ L 1.80-8.00 ozjt=125) LYMPHOCYTES ABSOLUTE COUNT (BEAKER) (test 1.17 K/ L 1.48-4.50 zyiz=046) MONOCYTES ABSOLUTE COUNT (BEAKER) (test 1.37 K/ L 0.00-1.30 ioab=083) EOSINOPHILS ABSOLUTE COUNT (BEAKER) (test 0.04 K/ L 0.00-0.50 tclb=012) BASOPHILS ABSOLUTE COUNT (BEAKER) (test 0.02 K/ L 0.00-0.20 ojvf=485) 0.00(MANUAL DIFFERENTIAL)2016-12-13 08:04:00 Test Item Value Reference Range Comments TOTAL COUNTED (BEAKER) (test qkyh=6683) WBC MORPHOLOGY (BEAKER) (test nlrf=645) Normal PLT MORPHOLOGY (BEAKER) (test iypj=400) Normal HYPOCHROMIA (BEAKER) (test qiua=416) 1+ few POCT-GLUCOSE [id number] 07:23:00 Test Item Value Reference Range Comments POC-GLUCOSE METER (BEAKER) 116 mg/dL 70-110 TESTED AT [facility] [address] [facility] (test clqm=1777) [facility] [address] POCT-GLUCOSE [id number] 06:31:00 Test Item Value Reference Range Comments POC-GLUCOSE METER (BEAKER) 115 mg/dL 70-110 TESTED AT [facility] [address] [facility] (test azos=8809) [facility] [address] CALCIUM, [id number] 05:09:00 Test Item Value Reference Range Comments CALCIUM IONIZED (BEAKER) (test nlpj=398) 1.06 mmol/L 1.12-1.27 PH, BLOOD (BEAKER) (test hafm=3583) 7.46 BASIC METABOLIC [id number] 04:49:00 Test Item Value Reference Range Comments SODIUM (BEAKER) (test 139 meq/L 136-145 mjxb=570) POTASSIUM (BEAKER) (test 4.5 meq/L 3.5-5.1 nrom=880) CHLORIDE (BEAKER) (test 106 meq/L 98-107 aokz=770) CO2 (BEAKER) (test 26 meq/L 22-29 sxyg=626) BLOOD UREA NITROGEN 14 mg/dL 7-21 (BEAKER) (test olya=217) CREATININE (BEAKER) (test 2.20 mg/dL 0.57-1.25 cuey=396) GLUCOSE RANDOM (BEAKER) 138 mg/dL 70-105 (test qcuq=003) CALCIUM (BEAKER) (test 7.8 mg/dL 8.4-10.2 oefq=899) EGFR (BEAKER) (test 31 mL/min/1.73 sq m ESTIMATED GFR IS NOT zjqu=0073) ACCURATE CREATININE CLEARANCE IN PREDICTING GLOMERULAR FILTRATION RATE. ESTIMATED GFR IS NOT APPLICABLE FOR DIALYSIS PATIENTS. [id number] 04:47:00 Test Item Value Reference Range Comments PHOSPHORUS (BEAKER) (test limb=754) 3.8 mg/dL 2.3-4.7 [id number] 04:47:00 Test Item Value Reference Range Comments MAGNESIUM (BEAKER) (test kmfv=045) 1.6 mg/dL 1.6-2.6 POCT-GLUCOSE [id number] 00:17:00 Test Item Value Reference Range Comments POC-GLUCOSE METER (BEAKER) 165 mg/dL 70-110 TESTED AT [facility] [address] [facility] (test lzaz=5169) [facility] [address] POCT-GLUCOSE [id number] 19:50:00 Test Item Value Reference Range Comments POC-GLUCOSE METER (BEAKER) 150 mg/dL 70-110 TESTED AT [facility] [address] (test moeb=1702) [place] [address] GLUCOSE-STAT [id number] 16:40:00 Test Item Value Reference Range Comments GLUCOSE RANDOM (BEAKER) (test qncb=562) 93 mg/dL 70-110 SODIUM NA-STAT [id number] 16:40:00 Test Item Value Reference Range Comments SODIUM (BEAKER) (test asmc=372) 136 meq/L 135-148 POTASSIUM-STAT [id number] 16:40:00 Test Item Value Reference Range Comments POTASSIUM (BEAKER) (test mujn=757) 3.8 meq/L 3.6-5.5 BLOOD GAS, [id number] 16:40:00 Test Item Value Reference Range Comments PH ARTERIAL (BEAKER) (test stuh=259) 7.45 7.35-7.45 PCO2 ARTERIAL (BEAKER) (test owcp=826) 46 mmHg 35-45 PO2 ARTERIAL (BEAKER) (test rczl=879) 371 mmHg 80-90 O2 SATURATION ARTERIAL (BEAKER) (test xthd=348) 99.8 % 96.0-97.0 HCO3 ARTERIAL (BEAKER) (test lagy=653) 31 mmol/L 21-29 BASE EXCESS ARTERIAL (BEAKER) (test embc=990) 6.0 mmol/L -2.0-3.0 PATIENT TEMPERATURE (BEAKER) (test jyce=5542) 37.0 C FIO2 (BEAKER) (test rvzf=6372) 60.0 % HGB/HCT (H&H) - STAT [id number] 16:40:00 Test Item Value Reference Range Comments HEMOGLOBIN (BEAKER) (test cbts=908) 6.3 g/dL 13.0-16.8 HEMATOCRIT (BEAKER) (test imtv=303) 19.0 % 40.0-50.0 GLUCOSE-STAT [id number] 16:14:00 Test Item Value Reference Range Comments GLUCOSE RANDOM (BEAKER) (test rwsf=215) 89 mg/dL 70-110 [id number] 13:22:00 Test Item Value Reference Range Comments PARTIAL THROMBOPLASTIN TIME (BEAKER) (test 80.1 seconds 22.5-36.0 ubof=066) POCT-GLUCOSE [id number] 11:57:00 Test Item Value Reference Range Comments POC-GLUCOSE METER (BEAKER) 82 mg/dL 70-110 TESTED AT [facility] [address] [facility] (test alhm=0559) [facility] [address] POCT-GLUCOSE [id number] 08:15:00 Test Item Value Reference Range Comments POC-GLUCOSE METER (BEAKER) 90 mg/dL 70-110 TESTED AT [facility] [address] [facility] (test ehdp=8947) [facility] [address] CBC W/PLT COUNT & AUTO [id number] 05:50:00 Test Item Value Reference Range Comments WHITE BLOOD CELL COUNT (BEAKER) (test megd=054) 13.9 K/ L 4.0-10.0 RED BLOOD CELL COUNT (BEAKER) (test ntdb=629) 2.42 M/ L 4.20-5.80 HEMOGLOBIN (BEAKER) (test ssxx=172) 7.2 GM/DL 13.0-16.8 HEMATOCRIT (BEAKER) (test gwww=410) 21.8 % 40.0-50.0 MEAN CORPUSCULAR VOLUME (BEAKER) (test tfhq=373) 90.3 fL 82.0-98.0 MEAN CORPUSCULAR HEMOGLOBIN (BEAKER) (test 29.5 pg 27.0-33.0 pmyd=961) MEAN CORPUSCULAR HEMOGLOBIN CONC (BEAKER) (test 32.7 GM/DL 32.0-36.0 iecc=678) RED CELL DISTRIBUTION WIDTH (BEAKER) (test 15.9 % 10.3-14.2 mvhr=923) PLATELET COUNT (BEAKER) (test cqfk=101) 282 K/CU MM 150-430 MEAN PLATELET VOLUME (BEAKER) (test deca=655) 6.8 fL 6.5-10.5 NUCLEATED RED BLOOD CELLS (BEAKER) (test 0 /100 WBC 0-0 mecr=375) NEUTROPHILS RELATIVE PERCENT (BEAKER) (test 78 % zgkv=354) LYMPHOCYTES RELATIVE PERCENT (BEAKER) (test 11 % bhgo=914) MONOCYTES RELATIVE PERCENT (BEAKER) (test 9 % iqhm=482) EOSINOPHILS RELATIVE PERCENT (BEAKER) (test 1 % qmvi=984) BASOPHILS RELATIVE PERCENT (BEAKER) (test 0 % qoqs=551) NEUTROPHILS ABSOLUTE COUNT (BEAKER) (test 10.80 K/ L 1.80-8.00 slvi=487) LYMPHOCYTES ABSOLUTE COUNT (BEAKER) (test 1.57 K/ L 1.48-4.50 wrwq=055) MONOCYTES ABSOLUTE COUNT (BEAKER) (test 1.30 K/ L 0.00-1.30 llkt=846) EOSINOPHILS ABSOLUTE COUNT (BEAKER) (test 0.20 K/ L 0.00-0.50 mtwu=805) BASOPHILS ABSOLUTE COUNT (BEAKER) (test 0.04 K/ L 0.00-0.20 ukyx=161) 0.00CALCIUM, [id number] 05:43:00 Test Item Value Reference Range Comments CALCIUM IONIZED (BEAKER) (test bnyi=102) 0.97 mmol/L 1.12-1.27 PH, BLOOD (BEAKER) (test uvah=4285) 7.51 BASIC METABOLIC [id number] 05:35:00 Test Item Value Reference Range Comments SODIUM (BEAKER) (test 132 meq/L 136-145 lkao=115) POTASSIUM (BEAKER) (test 4.2 meq/L 3.5-5.1 pvej=979) CHLORIDE (BEAKER) (test 102 meq/L 98-107 dhbs=944) CO2 (BEAKER) (test 22 meq/L 22-29 ihsx=323) BLOOD UREA NITROGEN 26 mg/dL 7-21 (BEAKER) (test ekwp=885) CREATININE (BEAKER) (test 3.57 mg/dL 0.57-1.25 tnyc=102) GLUCOSE RANDOM (BEAKER) 69 mg/dL 70-105 (test cshd=528) CALCIUM (BEAKER) (test 7.6 mg/dL 8.4-10.2 tbha=364) EGFR (BEAKER) (test 18 mL/min/1.73 sq m ESTIMATED GFR IS NOT hkil=9305) ACCURATE CREATININE CLEARANCE IN PREDICTING GLOMERULAR FILTRATION RATE. ESTIMATED GFR IS NOT APPLICABLE FOR DIALYSIS PATIENTS. [id number] 05:31:00 Test Item Value Reference Range Comments PHOSPHORUS (BEAKER) (test zblr=198) 3.7 mg/dL 2.3-4.7 [id number] 05:31:00 Test Item Value Reference Range Comments MAGNESIUM (BEAKER) (test mjuw=196) 1.8 mg/dL 1.6-2.6 [id number] 05:30:00 Test Item Value Reference Range Comments PARTIAL THROMBOPLASTIN TIME (BEAKER) (test 44.4 seconds 22.5-36.0 gtjg=528) PROTHROMBIN [id number] 05:29:00 Test Item Value Reference Range Comments PROTIME (BEAKER) (test lrdw=668) 14.5 seconds 11.7-14.7 INR (BEAKER) (test qrpo=067) 1.1 <=5.9 RECOMMENDED COUMADIN/WARFARIN INR THERAPY RANGESSTANDARD DOSE: 2.0 - 3.0 Includes: PROPHYLAXIS forvenous thrombosis, systemic embolization; TREATMENT for venous thrombosis and/or pulmonary embolus.HIGH RISK: Target INR is 2.5-3.5 for patients with mechanical heart valves.POCT-GLUCOSE [id number] 22:10:00 Test Item Value Reference Range Comments POC-GLUCOSE METER (BEAKER) 106 mg/dL 70-110 TESTED AT [address] (test oyzi=5640) [place] [id number] POCT-GLUCOSE [id number] 17:31:00 Test Item Value Reference Range Comments POC-GLUCOSE METER (BEAKER) 114 mg/dL 70-110 TESTED AT [address] (test qsoi=2974) [place] [id number] 15:36:00 Test Item Value Reference Range Comments PARTIAL THROMBOPLASTIN TIME (BEAKER) (test 38.5 seconds 22.5-36.0 spyj=289) PROTHROMBIN [id number] 15:35:00 Test Item Value Reference Range Comments PROTIME (BEAKER) (test koab=175) 14.6 seconds 11.7-14.7 INR (BEAKER) (test xyll=447) 1.2 <=5.9 RECOMMENDED COUMADIN/WARFARIN INR THERAPY RANGESSTANDARD DOSE: 2.0 - 3.0 Includes: PROPHYLAXIS forvenous thrombosis, systemic embolization; TREATMENT for venous thrombosis and/or pulmonary embolus.HIGH RISK: Target INR is 2.5-3.5 for patients with mechanical heart valves.POCT-GLUCOSE [id number] 12:12:00 Test Item Value Reference Range Comments POC-GLUCOSE METER (BEAKER) 130 mg/dL 70-110 TESTED AT [address] (test gksw=2512) [place] [address] POCT-GLUCOSE [id number] 08:04:00 Test Item Value Reference Range Comments POC-GLUCOSE METER (BEAKER) 96 mg/dL 70-110 TESTED AT [address] (test ydcg=0094) [place] [address] VANCOMYCIN LEVEL, [id number] 07:30:00 Test Item Value Reference Range Comments VANCOMYCIN RANDOM (BEAKER) (test pztw=822) 21.2 ug/mL Reference Range: No NormalsPOCT-GLUCOSE [id number] 20:25:00 Test Item Value Reference Range Comments POC-GLUCOSE METER (BEAKER) 152 mg/dL 70-110 TESTED AT [address] (test xvup=8423) [place] [address] POCT-GLUCOSE [id number] 17:23:00 Test Item Value Reference Range Comments POC-GLUCOSE METER (BEAKER) 161 mg/dL 70-110 TESTED AT [address] (test adfv=4316) [place] [address] [id number] 13:34:00 Test Item Value Reference Range Comments PROTIME (BEAKER) (test vmhn=901) 15.4 seconds 11.7-14.7 INR (BEAKER) (test ylcw=620) 1.2 <=5.9 PARTIAL THROMBOPLASTIN TIME (BEAKER) (test 51.5 seconds 22.5-36.0 fjkv=725) RECOMMENDED COUMADIN/WARFARIN INR THERAPY RANGESSTANDARD DOSE: 2.0 - 3.0 Includes: PROPHYLAXIS forvenous thrombosis, systemic embolization; TREATMENT for venous thrombosis and/or pulmonary embolus.HIGH RISK: Target INR is 2.5-3.5 for patients with mechanical heart valves.POCT-GLUCOSE [id number] 12:11:00 Test Item Value Reference Range Comments POC-GLUCOSE METER (BEAKER) 140 mg/dL 70-110 TESTED AT [address] (test miwx=2910) [place] [address] CBC W/PLT COUNT & AUTO [id number] 08:02:00 Test Item Value Reference Range Comments WHITE BLOOD CELL COUNT (BEAKER) (test wgey=887) 14.8 K/ L 4.0-10.0 RED BLOOD CELL COUNT (BEAKER) (test tcvw=284) 2.40 M/ L 4.20-5.80 HEMOGLOBIN (BEAKER) (test xydj=837) 7.0 GM/DL 13.0-16.8 HEMATOCRIT (BEAKER) (test xxqv=515) 21.6 % 40.0-50.0 MEAN CORPUSCULAR VOLUME (BEAKER) (test txtj=365) 90.0 fL 82.0-98.0 MEAN CORPUSCULAR HEMOGLOBIN (BEAKER) (test 29.2 pg 27.0-33.0 tlzg=167) MEAN CORPUSCULAR HEMOGLOBIN CONC (BEAKER) (test 32.5 GM/DL 32.0-36.0 ptxs=026) RED CELL DISTRIBUTION WIDTH (BEAKER) (test 15.8 % 10.3-14.2 rllg=395) PLATELET COUNT (BEAKER) (test wdem=559) 276 K/CU MM 150-430 MEAN PLATELET VOLUME (BEAKER) (test ibxn=398) 6.8 fL 6.5-10.5 NUCLEATED RED BLOOD CELLS (BEAKER) (test 0 /100 WBC 0-0 exec=297) NEUTROPHILS RELATIVE PERCENT (BEAKER) (test 80 % kine=387) LYMPHOCYTES RELATIVE PERCENT (BEAKER) (test 10 % vqca=832) MONOCYTES RELATIVE PERCENT (BEAKER) (test 9 % fyrd=041) EOSINOPHILS RELATIVE PERCENT (BEAKER) (test 1 % bzue=186) BASOPHILS RELATIVE PERCENT (BEAKER) (test 0 % atuf=504) NEUTROPHILS ABSOLUTE COUNT (BEAKER) (test 11.80 K/ L 1.80-8.00 tcth=315) LYMPHOCYTES ABSOLUTE COUNT (BEAKER) (test 1.49 K/ L 1.48-4.50 bdex=981) MONOCYTES ABSOLUTE COUNT (BEAKER) (test 1.28 K/ L 0.00-1.30 bynk=641) EOSINOPHILS ABSOLUTE COUNT (BEAKER) (test 0.17 K/ L 0.00-0.50 wxvn=795) BASOPHILS ABSOLUTE COUNT (BEAKER) (test 0.04 K/ L 0.00-0.20 uhus=492) 0.00VANCOMYCIN LEVEL, [id number] 07:43:00 Test Item Value Reference Range Comments VANCOMYCIN RANDOM (BEAKER) (test kare=746) 31.1 ug/mL Reference Range: No NormalsBASIC METABOLIC [id number] 07:30:00 Test Item Value Reference Range Comments SODIUM (BEAKER) (test 134 meq/L 136-145 yfza=128) POTASSIUM (BEAKER) (test 3.6 meq/L 3.5-5.1 zokv=874) CHLORIDE (BEAKER) (test 100 meq/L 98-107 olfo=662) CO2 (BEAKER) (test 27 meq/L 22-29 ejvx=217) BLOOD UREA NITROGEN 12 mg/dL 7-21 (BEAKER) (test yjfb=099) CREATININE (BEAKER) (test 1.88 mg/dL 0.57-1.25 pgca=893) GLUCOSE RANDOM (BEAKER) 109 mg/dL 70-105 (test njhj=924) CALCIUM (BEAKER) (test 7.7 mg/dL 8.4-10.2 pzto=637) EGFR (BEAKER) (test 37 mL/min/1.73 sq m ESTIMATED GFR IS NOT gyxz=3294) ACCURATE CREATININE CLEARANCE IN PREDICTING GLOMERULAR FILTRATION RATE. ESTIMATED GFR IS NOT APPLICABLE FOR DIALYSIS PATIENTS. [id number] 07:25:00 Test Item Value Reference Range Comments PHOSPHORUS (BEAKER) (test wxly=820) 2.9 mg/dL 2.3-4.7 [id number] 07:25:00 Test Item Value Reference Range Comments MAGNESIUM (BEAKER) (test kxco=454) 1.3 mg/dL 1.6-2.6 POCT-GLUCOSE [id number] 07:18:00 Test Item Value Reference Range Comments POC-GLUCOSE METER (BEAKER) 107 mg/dL 70-110 TESTED AT [facility] [address] [facility] (test skfo=5129) [facility] [address] CALCIUM, [id number] 06:57:00 Test Item Value Reference Range Comments CALCIUM IONIZED (BEAKER) (test abhp=384) 1.04 mmol/L 1.12-1.27 PH, BLOOD (BEAKER) (test obmi=0435) 7.44 BLOOD [id number] 17:00:00 Test Item Value Reference Range Comments CULTURE (BEAKER) (test wqwu=9915) No growth in 5 days BLOOD [id number] 17:00:00 Test Item Value Reference Range Comments CULTURE (BEAKER) (test cxmp=1408) No growth in 5 days POCT-GLUCOSE [id number] 12:01:00 Test Item Value Reference Range Comments POC-GLUCOSE METER (BEAKER) 128 mg/dL 70-110 TESTED AT [address] (test lfli=9836) [facility] [address] POCT-GLUCOSE [id number] 07:48:00 Test Item Value Reference Range Comments POC-GLUCOSE METER (BEAKER) 100 mg/dL 70-110 TESTED AT [address] (test lklq=3085) [facility] [address] VANCOMYCIN LEVEL, [id number] 05:36:00 Test Item Value Reference Range Comments VANCOMYCIN RANDOM (BEAKER) (test aclp=803) 26.8 ug/mL Reference Range: No NormalsSPUTUM CULTURE + GRAM [id number] 00:09:00 Test Item Value Reference Range Comments CULTURE (BEAKER) (test Oropharyngeal contamination, zjox=6892) specimen rejected. Recollect requested. GRAM STAIN RESULT (BEAKER) No WBCs (test zwcq=1594) GRAM STAIN RESULT (BEAKER) >25 epithelial cells (test rlwe=00790) GRAM STAIN RESULT (BEAKER) 4+ gram positive rods (test knyr=86602) GRAM STAIN RESULT (BEAKER) 4+ gram positive cocci in pairs (test ltyv=405847) GRAM STAIN RESULT (BEAKER) 4+ budding yeast (test lqsj=584574) POCT-GLUCOSE [id number] 20:17:00 Test Item Value Reference Range Comments POC-GLUCOSE METER (BEAKER) 111 mg/dL 70-110 TESTED AT [address] (test axxt=5754) [facility] [address] TSH/FREE T4 IF [id number] 18:39:00 Test Item Value Reference Range Comments THYROID STIMULATING HORMONE (BEAKER) (test 3.14 uIU/mL 0.35-4.94 gyie=999) VITAMIN B12 AND [id number] 18:39:00 Test Item Value Reference Range Comments VITAMIN B12 (BEAKER) (test wwjs=550) 1407 pg/mL 213-816 FOLATE (BEAKER) (test uepl=750) 16.4 ng/mL >=7.0 Effective 09/08/2014: Folate Reference Range ChangeNew: >=7.0 Previous: & gt;=[id number] 18:12:00 Test Item Value Reference Range Comments CALCIUM (BEAKER) (test xgmc=797) 8.2 mg/dL 8.4-10.2 PROTHROMBIN [id number] 18:07:00 Test Item Value Reference Range Comments PROTIME (BEAKER) (test yhbn=493) 15.5 seconds 11.7-14.7 INR (BEAKER) (test zkrz=045) 1.2 <=5.9 RECOMMENDED COUMADIN/WARFARIN INR THERAPY RANGESSTANDARD DOSE: 2.0 - 3.0 Includes: PROPHYLAXIS forvenous thrombosis, systemic embolization; TREATMENT for venous thrombosis and/or pulmonary embolus.HIGH RISK: Target INR is 2.5-3.5 for patients with mechanical heart valves.[id number] 18:06:00 Test Item Value Reference Range Comments PHOSPHORUS (BEAKER) (test qieh=409) 3.4 mg/dL 2.3-4.7 [id number] 18:06:00 Test Item Value Reference Range Comments MAGNESIUM (BEAKER) (test sryy=363) 1.5 mg/dL 1.6-2.6 HEPATIC FUNCTION [id number] 18:06:00 Test Item Value Reference Range Comments TOTAL PROTEIN (BEAKER) (test yywg=560) 5.9 gm/dL 6.0-8.3 ALBUMIN (BEAKER) (test nfmu=4170) 2.3 g/dL 3.5-5.0 BILIRUBIN TOTAL (BEAKER) (test tpsi=455) 0.4 mg/dL 0.2-1.2 BILIRUBIN DIRECT (BEAKER) (test ujoi=930) 0.2 mg/dL 0.1-0.5 ALKALINE PHOSPHATASE (BEAKER) (test cqel=234) 118 U/L 40-150 AST (SGOT) (BEAKER) (test fbpw=349) 11 U/L 5-34 ALT (SGPT) (BEAKER) (test cwel=740) 7 U/L 6-55 [id number] 17:57:00 Test Item Value Reference Range Comments AMMONIA (BEAKER) (test rpqp=662) 23 mol/L 18-72 POCT-GLUCOSE [id number] 17:55:00 Test Item Value Reference Range Comments POC-GLUCOSE METER (BEAKER) 137 mg/dL 70-110 TESTED AT [address] (test rekp=4406) [facility] [address] POCT-GLUCOSE [id number] 17:01:00 Test Item Value Reference Range Comments POC-GLUCOSE METER (BEAKER) 62 mg/dL 70-110 TESTED AT [address] (test ihvt=6684) [facility] [address] [id number] 15:09:00 Test Item Value Reference Range Comments SODIUM (BEAKER) (test ceeo=693) 138 meq/L 136-145 POTASSIUM (BEAKER) (test 4.0 meq/L 3.5-5.1 Specimen slightly hemolyzed pxpm=214) CHLORIDE (BEAKER) (test 105 meq/L 98-107 olqr=608) CO2 (BEAKER) (test rzuo=872) 23 meq/L 22-29 BLOOD GAS, [id number] 14:56:00 Test Item Value Reference Range Comments PH ARTERIAL (BEAKER) (test pesj=470) 7.53 7.35-7.45 PCO2 ARTERIAL (BEAKER) (test ihll=596) 35 mmHg 35-45 PO2 ARTERIAL (BEAKER) (test bknq=330) 70 mmHg 80-90 O2 SATURATION ARTERIAL (BEAKER) (test vnez=553) 95.5 % 96.0-97.0 HCO3 ARTERIAL (BEAKER) (test yxrv=091) 28 mmol/L 21-29 BASE EXCESS ARTERIAL (BEAKER) (test whsx=639) 5.2 mmol/L -2.0-3.0 PATIENT TEMPERATURE (BEAKER) (test xpod=5597) 37.3 C FIO2 (BEAKER) (test usol=4305) 21.0 % CBC W/PLT COUNT & AUTO [id number] 14:56:00 Test Item Value Reference Range Comments WHITE BLOOD CELL COUNT (BEAKER) (test xind=678) 18.1 K/ L 4.0-10.0 RED BLOOD CELL COUNT (BEAKER) (test ecql=636) 2.43 M/ L 4.20-5.80 HEMOGLOBIN (BEAKER) (test kmco=408) 7.3 GM/DL 13.0-16.8 HEMATOCRIT (BEAKER) (test hpxv=994) 22.2 % 40.0-50.0 MEAN CORPUSCULAR VOLUME (BEAKER) (test migg=809) 91.7 fL 82.0-98.0 MEAN CORPUSCULAR HEMOGLOBIN (BEAKER) (test 30.0 pg 27.0-33.0 sqbt=245) MEAN CORPUSCULAR HEMOGLOBIN CONC (BEAKER) (test 32.7 GM/DL 32.0-36.0 ouvm=601) RED CELL DISTRIBUTION WIDTH (BEAKER) (test 15.7 % 10.3-14.2 zeup=083) PLATELET COUNT (BEAKER) (test xurb=796) 290 K/CU MM 150-430 MEAN PLATELET VOLUME (BEAKER) (test bdes=749) 6.9 fL 6.5-10.5 NUCLEATED RED BLOOD CELLS (BEAKER) (test 0 /100 WBC 0-0 rowb=195) NEUTROPHILS RELATIVE PERCENT (BEAKER) (test 84 % voku=578) LYMPHOCYTES RELATIVE PERCENT (BEAKER) (test 8 % ktyp=273) MONOCYTES RELATIVE PERCENT (BEAKER) (test 8 % owqb=723) EOSINOPHILS RELATIVE PERCENT (BEAKER) (test 0 % lekb=093) BASOPHILS RELATIVE PERCENT (BEAKER) (test 0 % bbbd=275) NEUTROPHILS ABSOLUTE COUNT (BEAKER) (test 15.10 K/ L 1.80-8.00 ofmd=094) LYMPHOCYTES ABSOLUTE COUNT (BEAKER) (test 1.51 K/ L 1.48-4.50 umoq=668) MONOCYTES ABSOLUTE COUNT (BEAKER) (test 1.43 K/ L 0.00-1.30 pvhn=524) EOSINOPHILS ABSOLUTE COUNT (BEAKER) (test 0.03 K/ L 0.00-0.50 dnvc=265) BASOPHILS ABSOLUTE COUNT (BEAKER) (test 0.02 K/ L 0.00-0.20 yntv=441) 0.00POCT-GLUCOSE [id number] 12:19:00 Test Item Value Reference Range Comments POC-GLUCOSE METER (BEAKER) 75 mg/dL 70-110 TESTED AT [facility] [address] [facility] (test gxxc=8728) [facility] [address] [id number] 09:59:00 Test Item Value Reference Range Comments HAPTOGLOBIN (BEAKER) (test sxtj=252) > mg/dL 14-258 Effective 09/08/2014: Reference Range ChangeNew: 14-258 Previous: 36- 195LACTATE DEHYDROGENASE (LDH)2016-12-08 09:56:00 Test Item Value Reference Range Comments LACTATE DEHYDROGENASE (BEAKER) (test jkug=721) 234 U/L 125-220 [id number] 09:35:00 Test Item Value Reference Range Comments FIBRINOGEN LEVEL (BEAKER) (test wkke=664) 554 mg/dl 225-434 BASIC METABOLIC [id number] 08:56:00 Test Item Value Reference Range Comments SODIUM (BEAKER) (test 139 meq/L 136-145 xlew=926) POTASSIUM (BEAKER) (test 3.0 meq/L 3.5-5.1 lmba=900) CHLORIDE (BEAKER) (test 114 meq/L 98-107 itqt=891) CO2 (BEAKER) (test 18 meq/L 22-29 csyp=473) BLOOD UREA NITROGEN 14 mg/dL 7-21 (BEAKER) (test hcmx=877) CREATININE (BEAKER) (test 1.68 mg/dL 0.57-1.25 iaur=525) GLUCOSE RANDOM (BEAKER) 65 mg/dL 70-105 (test nphn=500) CALCIUM (BEAKER) (test 6.3 mg/dL 8.4-10.2 xxys=788) EGFR (BEAKER) (test 42 mL/min/1.73 sq m ESTIMATED GFR IS NOT irir=1723) ACCURATE CREATININE CLEARANCE IN PREDICTING GLOMERULAR FILTRATION RATE. ESTIMATED GFR IS NOT APPLICABLE FOR DIALYSIS PATIENTS. CBC W/PLT COUNT & AUTO [id number] 08:55:00 Test Item Value Reference Range Comments WHITE BLOOD CELL COUNT (BEAKER) (test bkfv=072) 12.8 K/ L 4.0-10.0 RED BLOOD CELL COUNT (BEAKER) (test rjoa=634) 1.79 M/ L 4.20-5.80 HEMOGLOBIN (BEAKER) (test nicu=191) 5.4 GM/DL 13.0-16.8 HEMATOCRIT (BEAKER) (test otnw=781) 16.7 % 40.0-50.0 MEAN CORPUSCULAR VOLUME (BEAKER) (test vgri=581) 93.5 fL 82.0-98.0 MEAN CORPUSCULAR HEMOGLOBIN (BEAKER) (test 30.2 pg 27.0-33.0 wpri=535) MEAN CORPUSCULAR HEMOGLOBIN CONC (BEAKER) (test 32.3 GM/DL 32.0-36.0 qabb=234) RED CELL DISTRIBUTION WIDTH (BEAKER) (test 15.9 % 10.3-14.2 twwn=970) PLATELET COUNT (BEAKER) (test hqvk=313) 211 K/CU MM 150-430 MEAN PLATELET VOLUME (BEAKER) (test vsop=573) 6.8 fL 6.5-10.5 NUCLEATED RED BLOOD CELLS (BEAKER) (test 0 /100 WBC 0-0 kuvm=489) NEUTROPHILS RELATIVE PERCENT (BEAKER) (test 82 % lfrf=155) LYMPHOCYTES RELATIVE PERCENT (BEAKER) (test 8 % xsyc=564) MONOCYTES RELATIVE PERCENT (BEAKER) (test 9 % ghse=341) EOSINOPHILS RELATIVE PERCENT (BEAKER) (test 0 % szcl=822) BASOPHILS RELATIVE PERCENT (BEAKER) (test 0 % hfce=527) NEUTROPHILS ABSOLUTE COUNT (BEAKER) (test 10.50 K/ L 1.80-8.00 icqk=398) LYMPHOCYTES ABSOLUTE COUNT (BEAKER) (test 1.08 K/ L 1.48-4.50 erch=705) MONOCYTES ABSOLUTE COUNT (BEAKER) (test 1.17 K/ L 0.00-1.30 zles=838) EOSINOPHILS ABSOLUTE COUNT (BEAKER) (test 0.06 K/ L 0.00-0.50 wrzf=336) BASOPHILS ABSOLUTE COUNT (BEAKER) (test 0.04 K/ L 0.00-0.20 clrl=716) 0.00LACTIC ACID, VENOUS, WHOLE [id number] 08:52:00 Test Item Value Reference Range Comments LACTATE BLOOD VENOUS (2) (BEAKER) (test 0.5 mmol/L 0.5-2.2 hgqf=7562) Effective 02/23/2016: Units/Reference Range ChangeNew: 0.5-2.2 mmol/L Previous: 5 -20 mg/dLPOCT-GLUCOSE [id number] 07:40:00 Test Item Value Reference Range Comments POC-GLUCOSE METER (BEAKER) 80 mg/dL 70-110 TESTED AT [address] (test anus=3543) [place] [id number] POCT-GLUCOSE [id number] 21:47:00 Test Item Value Reference Range Comments POC-GLUCOSE METER (BEAKER) 97 mg/dL 70-110 TESTED AT [address] (test vwui=2236) [place] [id number] POCT-GLUCOSE [id number] 17:45:00 Test Item Value Reference Range Comments POC-GLUCOSE METER (BEAKER) 115 mg/dL 70-110 TESTED AT [address] (test jdel=7228) [place] [id number] POCT-GLUCOSE [id number] 12:56:00 Test Item Value Reference Range Comments POC-GLUCOSE METER (BEAKER) 120 mg/dL 70-110 TESTED AT [address] (test pvly=3144) [place] [id number] POCT-GLUCOSE [id number] 12:56:00 Test Item Value Reference Range Comments POC-GLUCOSE METER (BEAKER) 107 mg/dL 70-110 TESTED AT [address] (test kriu=7535) [place] [id number] CBC W/PLT COUNT & AUTO [id number] 11:18:00 Test Item Value Reference Range Comments WHITE BLOOD CELL COUNT (BEAKER) (test yfhs=156) 21.4 K/ L 4.0-10.0 RED BLOOD CELL COUNT (BEAKER) (test vfex=902) 2.63 M/ L 4.20-5.80 HEMOGLOBIN (BEAKER) (test dqjn=709) 7.5 GM/DL 13.0-16.8 HEMATOCRIT (BEAKER) (test avud=671) 24.1 % 40.0-50.0 MEAN CORPUSCULAR VOLUME (BEAKER) (test tgrl=011) 91.8 fL 82.0-98.0 MEAN CORPUSCULAR HEMOGLOBIN (BEAKER) (test 28.6 pg 27.0-33.0 yyfw=174) MEAN CORPUSCULAR HEMOGLOBIN CONC (BEAKER) (test 31.1 GM/DL 32.0-36.0 zlsy=732) RED CELL DISTRIBUTION WIDTH (BEAKER) (test 15.4 % 10.3-14.2 dvbm=252) PLATELET COUNT (BEAKER) (test xqyh=174) 297 K/CU MM 150-430 MEAN PLATELET VOLUME (BEAKER) (test zxml=622) 7.0 fL 6.5-10.5 NUCLEATED RED BLOOD CELLS (BEAKER) (test 0 /100 WBC 0-0 npnq=266) NEUTROPHILS RELATIVE PERCENT (BEAKER) (test 88 % njqb=890) LYMPHOCYTES RELATIVE PERCENT (BEAKER) (test 6 % djmf=542) MONOCYTES RELATIVE PERCENT (BEAKER) (test 6 % bwch=828) EOSINOPHILS RELATIVE PERCENT (BEAKER) (test 0 % wgww=643) BASOPHILS RELATIVE PERCENT (BEAKER) (test 0 % ghys=520) NEUTROPHILS ABSOLUTE COUNT (BEAKER) (test 18.90 K/ L 1.80-8.00 tido=889) LYMPHOCYTES ABSOLUTE COUNT (BEAKER) (test 1.25 K/ L 1.48-4.50 pfqt=977) MONOCYTES ABSOLUTE COUNT (BEAKER) (test 1.26 K/ L 0.00-1.30 ipyr=213) EOSINOPHILS ABSOLUTE COUNT (BEAKER) (test 0.05 K/ L 0.00-0.50 kjiu=499) BASOPHILS ABSOLUTE COUNT (BEAKER) (test 0.01 K/ L 0.00-0.20 pwud=727) [id number](MANUAL DIFFERENTIAL)2016-12-07 11:18:00 Test Item Value Reference Range Comments TOTAL COUNTED (BEAKER) (test huil=9319) CATHETER TIP [id number] 09:38:00 Test Item Value Reference Range Comments CULTURE (BEAKER) (test METHICILLIN RESISTANT 15-29 Colonies On bbrl=7916) STAPHYLOCOCCUS AUREUS Direct Plate Methicillin resistant Staphylococcus aureus Clindamycin (test code=10) Erythromycin (test code=4) Linezolid (test code=40) Oxacillin (test code=14) Rifampin (test code=43) Tetracycline (test code=2) Trimethoprim + Sulfamethoxazole (test code=47) Vancomycin (test code=13) CULTURE (BEAKER) (test <15 Colonies On nzli=[id number]) Direct Plate Methicillin resistant Staphylococcus aureusof a second type CALCIUM, [id number] 09:12:00 Test Item Value Reference Range Comments CALCIUM IONIZED (BEAKER) (test jffn=971) 1.04 mmol/L 1.12-1.27 PH, BLOOD (BEAKER) (test qgjo=3207) 7.40 BASIC METABOLIC [id number] 07:52:00 Test Item Value Reference Range Comments SODIUM (BEAKER) (test 134 meq/L 136-145 qfgf=585) POTASSIUM (BEAKER) (test 4.1 meq/L 3.5-5.1 fqsl=384) CHLORIDE (BEAKER) (test 103 meq/L 98-107 mwtj=518) CO2 (BEAKER) (test 20 meq/L 22-29 mpdi=426) BLOOD UREA NITROGEN 37 mg/dL 7-21 (BEAKER) (test njoo=315) CREATININE (BEAKER) (test 3.25 mg/dL 0.57-1.25 yitw=395) GLUCOSE RANDOM (BEAKER) 129 mg/dL 70-105 (test enbg=470) CALCIUM (BEAKER) (test 8.1 mg/dL 8.4-10.2 jtzd=319) EGFR (BEAKER) (test 20 mL/min/1.73 sq m ESTIMATED GFR IS NOT vhxx=1319) ACCURATE CREATININE CLEARANCE IN PREDICTING GLOMERULAR FILTRATION RATE. ESTIMATED GFR IS NOT APPLICABLE FOR DIALYSIS PATIENTS. [id number] 07:48:00 Test Item Value Reference Range Comments PHOSPHORUS (BEAKER) (test ftab=971) 4.8 mg/dL 2.3-4.7 [id number] 07:48:00 Test Item Value Reference Range Comments MAGNESIUM (BEAKER) (test vwxz=006) 1.9 mg/dL 1.6-2.6 ANAEROBIC [id number] 02:42:00 Test Item Value Reference Range Comments CULTURE (BEAKER) (test qdou=3071) No anaerobes isolated POCT-GLUCOSE [id number] 20:57:00 Test Item Value Reference Range Comments POC-GLUCOSE METER (BEAKER) 191 mg/dL 70-110 TESTED AT [facility] [address] [facility] (test fwjb=8421) [facility] [address] VANCOMYCIN LEVEL, [id number] 17:35:00 Test Item Value Reference Range Comments VANCOMYCIN RANDOM (BEAKER) (test vdnf=898) 21.9 ug/mL Reference Range: No NormalsPOCT-GLUCOSE [id number] 13:28:00 Test Item Value Reference Range Comments POC-GLUCOSE METER (BEAKER) 202 mg/dL 70-110 TESTED AT [facility] [address] [facility] (test kwyj=9468) [facility] [address] POCT-GLUCOSE [id number] 08:30:00 Test Item Value Reference Range Comments POC-GLUCOSE METER (BEAKER) 144 mg/dL 70-110 TESTED AT [facility] [address] [facility] (test haxf=2522) [facility] [address] BASIC METABOLIC [id number] 07:04:00 Test Item Value Reference Range Comments SODIUM (BEAKER) (test 134 meq/L 136-145 txju=132) POTASSIUM (BEAKER) (test 3.8 meq/L 3.5-5.1 clxj=805) CHLORIDE (BEAKER) (test 104 meq/L 98-107 jlzs=331) CO2 (BEAKER) (test 21 meq/L 22-29 qjom=555) BLOOD UREA NITROGEN 33 mg/dL 7-21 (BEAKER) (test hnhu=279) CREATININE (BEAKER) (test 2.91 mg/dL 0.57-1.25 upfq=810) GLUCOSE RANDOM (BEAKER) 124 mg/dL 70-105 (test oxci=208) CALCIUM (BEAKER) (test 7.8 mg/dL 8.4-10.2 cmtb=669) EGFR (BEAKER) (test 22 mL/min/1.73 sq m ESTIMATED GFR IS NOT ibva=3780) ACCURATE CREATININE CLEARANCE IN PREDICTING GLOMERULAR FILTRATION RATE. ESTIMATED GFR IS NOT APPLICABLE FOR DIALYSIS PATIENTS. PROTHROMBIN [id number] 07:03:00 Test Item Value Reference Range Comments PROTIME (BEAKER) (test vhlp=887) 14.7 seconds 11.7-14.7 INR (BEAKER) (test apgq=645) 1.2 <=5.9 RECOMMENDED COUMADIN/WARFARIN INR THERAPY RANGESSTANDARD DOSE: 2.0 - 3.0 Includes: PROPHYLAXIS forvenous thrombosis, systemic embolization; TREATMENT for venous thrombosis and/or pulmonary embolus.HIGH RISK: Target INR is 2.5-3.5 for patients with mechanical heart valves.[id number] 07:01:00 Test Item Value Reference Range Comments PHOSPHORUS (BEAKER) (test qila=980) 3.9 mg/dL 2.3-4.7 [id number] 07:01:00 Test Item Value Reference Range Comments MAGNESIUM (BEAKER) (test vlqv=419) 1.7 mg/dL 1.6-2.6 CALCIUM, [id number] 06:45:00 Test Item Value Reference Range Comments CALCIUM IONIZED (BEAKER) (test bhau=684) 1.00 mmol/L 1.12-1.27 PH, BLOOD (BEAKER) (test ihnc=1680) 7.43 POCT-GLUCOSE [id number] 21:06:00 Test Item Value Reference Range Comments POC-GLUCOSE METER (BEAKER) 167 mg/dL 70-110 TESTED AT [address] (test exgh=9379) [place] [address] POCT-GLUCOSE [id number] 17:43:00 Test Item Value Reference Range Comments POC-GLUCOSE METER (BEAKER) 212 mg/dL 70-110 TESTED AT [address] (test ysah=1715) [place] [address]
[2018-01-10 22:54] LABS: Absolute Lymphocytes (CBC) 0.6 K/uL (0.7-4.9); Absolute Monocytes 0.9 K/uL (0.1-1.3); Absolute Neutrophil 12.6 K/uL (1.8-8.0); Basophils % 0.9 % (0-1.3); Eosinophils % 1.5 % (0-4.4); Hematocrit 28.4 % (39.6-49.0); Lymphocytes % 4.5 % (15.3-44.8); MCH 26.5 pg (27.0-35.0); MCV 83.7 fL (80-100); MPV 8.2 fL (7.6-11.3); Monocytes % 6.2 % (3.3-12.3); RBC Red Blood Cell Count 3.39 M/uL (4.33-5.43)
[2018-01-10 23:05] LABS: Protime INR 1.08
[2018-01-10 23:06] LABS: Potassium 4.3 mEq/L (3.6-5.0)
[2018-01-10] MEDS ORDERED: HYDRALAZINE HCL 20 MG/ML VIAL ONE (23:15)
[2018-01-10 23:40] LABS: Blood Morphology Comment NOT SEEN (NOT SEEN); Platelet Estimate ADEQ
--- NOTE | 2018-01-11 01:25 | ER ---
Nurse's Notes [facility] Name: Federico Martinez Age: 57 yrs Sex: Male : 1960 Arrival Date: 01/10/2018 Time: 22:07 Bed 2 Private MD: Diagnosis: Acute respiratory failure Presentation: 01/10 22:11 Presenting complaint: EMS states: Pt c/o shortness of breath and breathing difficulty tl2 at half-way, reported to be 78% on RA. Placed on Cpap on truck and O2 increased to 98%. Pt had dialysis this morning. Given two SL nitro in route. Transition of care: patient was received from another setting of care (long-term care [facility]. Onset of symptoms was January 10, 2018. Care prior to arrival: Medication(s) given: Nitroglycerin, 0.4 mg SL x 2, Oxygen administered. via CPAP or BiPAP. 22:11 Method Of Arrival: EMS: [facility] tl2 22:11 Acuity: CHARLES 2 tl2 Triage Assessment: 22:18 General: Appears in no apparent distress. uncomfortable, Behavior is cooperative, tl2 anxious. Pain: Denies pain. Neuro: Level of Consciousness is awake, alert, Oriented to person, place, time. Cardiovascular: Denies chest pain. Respiratory: Reports shortness of breath labored breathing Airway is patent Respiratory effort is even, labored, Respiratory pattern is regular, symmetrical, Breath sounds with rales bilaterally. Onset: The symptoms/episode began/occurred today, the patient has moderate shortness of breath. GI: No signs and/or symptoms were reported involving the gastrointestinal system. : No signs and/or symptoms were reported regarding the genitourinary system. Derm: Skin is pink, warm \T\ dry. Historical: - Allergies: 22:18 No Known Allergies; tl2 - Home Meds: 22:18 acetaminophen 325 mg Oral tab 2 tabs every 6 hours [Active]; acetaminophen 650 mg tl2 Rectal supp 1 suppository every 6 hours for for mild pain or fever >100.1 [Active]; alprazolam 1 mg Oral tab Tue, Elissa and Sat for anxiety [Active]; alprazolam 0.5 mg Oral tab 1 tab nightly for Anxiety [Active]; atorvastatin 10 mg Oral tab 1 tab once daily [Active]; carvedilol 25 mg Oral tab 2 times per day [Active]; Chloraseptic Throat [place] 1.4 % mucous membrane spra 2 spray every 4 hours [Active]; clonidine HCl 0.3 mg Oral tab 1 tab three times a day [Active]; donepezil 10 mg Oral tab nightly [Active]; doxazosin 4 mg Oral tab 1 tab every 12 hours for Hypertension [Active]; fentanyl 25 mcg/hr Topical pt72 1 patch every 72 hours [Active]; Fleet Enema 19-7 gram/118 mL Rectal enem every 24 hours prn constipation [Active]; folic acid 1 mg Oral tab 1 tab once daily [Active]; furosemide 40 mg Oral tab 1 tab once daily [Active]; gabapentin 100 mg Oral cap twice a day [Active]; Ria-Tussin 298-648-07qn/5mL Oral liqd 30 mL every 4 hours for Cough [Active]; losartan 50 mg Oral tab 1 tab 2 times per day [Active]; Milk of Magnesia Oral 30 mL once daily for constipation [Active]; Nepro Carb Steady Oral [Active]; nifedipine 60 mg Oral TbER 1 tab 2 times daily [Active]; [place] 7.5-325 mg Oral tab 1 tab every 6 hours for Pain [Active]; [place] 5-325 mg Oral tab 1 tab 2 times daily for Pain [Active]; Novolin 70/30 suspension 100 unit/ mL. Inject 7 units SQ BID [Active]; ondansetron HCl 4 mg Oral tab 1 tabs every 6 hours [Active]; pramipexole 0.25 mg Oral tab 1 tab nightly for Idiopathic Parkinsonism [Active]; Protonix 40 mg Oral TbEC 1 tab before meals [Active]; ranolazine 500 mg Oral 1 tab 2 times per day [Active]; Saline nasal [Active]; Tylenol-Codeine #4 300-60 mg Oral tab 1 tab every 6 hours for Pain [Active]; venlafaxine 150 mg Oral cp24 twice a day [Active]; Vitamin D Oral 5000 unit daily [Active]; Xanax 0.5 mg Oral tab 1 tab every 8 hours PRN for Anxiety [Active]; ziprasidone HCl 40 mg Oral cap 2 times per day [Active]; - PMHx: 22:18 ADD/ADHD; Anemia; Anxiety; Asthma; Atherosclerotic heart disease; Bipolar disorder; tl2 Dementia; Diabetes - NIDDM; Dialysis; ESRD; GERD; GI Hemorrhage; HEART FAILURE; Hypertension; insomnia; Major Depressive Disorder; osteomyelitis; Paraplegia; Parkinsons; Post Laminectomy Syndrome; pressure ulcer of left ankle stage II; Pressure ulcer of right ankle, stage II; Sacral Pressure Ulcer Stage III; - Immunization history:: Adult Immunizations up to date. - Social history:: Smoking status: Patient/guardian denies using tobacco. Screenin:21 Abuse screen: Denies threats or abuse. Nutritional screening: No deficits noted. tl2 Tuberculosis screening: No symptoms or risk factors identified. Fall Risk Secondary diagnosis (15 points). Assessment: 22:22 Cardiovascular: Rhythm is sinus rhythm. tl2 23:12 Reassessment: Patient appears in no apparent distress at this time. No changes from ak1 previously documented assessment. pt ex- at bedside. pt right wrist splint removed due to swelling to right hand. pt stated he bought that brace at [facility] for support when he is in the wheelchair. Vital Signs: 22:18 BP 201 / 96; Pulse 60; Resp 22; Pulse Ox 100% on 50% BiPAP; Weight 72.2 kg (M); Height tl2 5 ft. 7 in. (170.18 cm); Pain 0/10; 22:49 BP 198 / 92; Pulse 63; Resp 22; Pulse Ox 100% on 50% BiPAP; ak1 23:01 BP 185 / 77; Pulse 52; Resp 22; Temp 98.0(A); Pulse Ox 100% on 50% BiPAP; ak1 23:32 BP 174 / 73; Pulse 57; Resp 20; Pulse Ox 100% on 50% BiPAP; ak1 03 00:21 BP 169 / 81; Pulse 70; Resp 22; Temp 98.2(A); Pulse Ox 100% on 40% BiPAPRT decreased pt ak1 bipap to 40%; 01:34 BP 150 / 75; Pulse 57; Resp 22; Temp 98.3; Pulse Ox 100% on 40% BiPAP; ak1 01/10 22:18 Body Mass Index 24.93 (72.20 kg, 170.18 cm) tl2 ED Course: 01/10 22:07 Patient arrived in ED. ds1 22:13 Triage completed. tl2 22:17 Mendel Dukes MD is Attending Physician. gs 22:18 Arm band placed on right wrist. tl2 22:21 Patient has correct armband on for positive identification. Bed in low position. Call tl2 light in reach. Side rails up X2. 22:24 Ioana Johnson, RN is Primary Nurse. ak1 22:51 Inserted saline lock: 20 gauge in right antecubital area, using aseptic technique. ak1 Blood collected. 23:02 No provider procedures requiring assistance completed. ak1 01/11 00:19 monitoring and evaluation advisor on. Pulse ox on. NIBP on. Door closed. Lights dimmed. Warm blanket ak1 given. Pillow given. Head of bed elevated. Repositioned patient. Cleaned of incontinence. Linen changed. 00:20 Straight cath inserted, using sterile technique, 16 Fr. no urine obtained. ak1 01:24 Meg Nixon MD is Hospitalizing Provider. gs 03:02 Patient admitted, IV remains in place. ak1 Administered Medications: 01/10 22:32 CANCELLED (wrong pt): Ketamine 0.5 mg/kg IVP once gs 23:01 Drug: hydrALAZINE 20 mg Route: IV; Rate: bolus; Site: right antecubital; ak1 Point of Care Testing: Blood Glucose: 22:18 Blood Glucose: 119 mg/dL; tl2 Ranges: Outcome: 01/11 01:25 Decision to Hospitalize by Provider. gs 03:02 Admitted to Tele accompanied by nurse, family with patient, via stretcher, with oxygen, ak1 with chart. 03:02 Condition: stable 03:02 Instructed on the need for admit. 03:03 Patient left the ED. ak1 Signatures: Adrienne Miller Amber, RN RN ak1 Mel Du RN RN tl2 Mendel Dukes MD MD gs
--- NOTE | 2018-01-11 01:25 | EDPHYS ---
Physician Documentation [facility] Name: Federico Martinez Age: 57 yrs Sex: Male : 1960 Arrival Date: 01/10/2018 Time: 22:07 Bed 2 Private MD: ED Physician Mendel Dukes HPI: 01/11 01:19 This 57 yrs old Male presents to ER via EMS with complaints of Respiratory gs Distress. 01:19 The patient has shortness of breath at rest. Onset: The symptoms/episode began/occurred gs acutely, just prior to arrival. Duration: The symptoms are continuous, and are unchanged since they started. The patient's shortness of breath has no apparent modifying factors. Associated signs and symptoms: Pertinent positives: chest pain. Severity of symptoms: At their worst the symptoms were severe in the emergency department the symptoms are unchanged. The patient has experienced similar episodes in the past, a few times. The patient has been recently been admitted at [facility], was discharged last week. Historical: - Allergies: 01/10 22:18 No Known Allergies; tl2 - Home Meds: 22:18 acetaminophen 325 mg Oral tab 2 tabs every 6 hours [Active]; acetaminophen 650 mg tl2 Rectal supp 1 suppository every 6 hours for for mild pain or fever >100.1 [Active]; alprazolam 1 mg Oral tab Tue, Elissa and Sat for anxiety [Active]; alprazolam 0.5 mg Oral tab 1 tab nightly for Anxiety [Active]; atorvastatin 10 mg Oral tab 1 tab once daily [Active]; carvedilol 25 mg Oral tab 2 times per day [Active]; Chloraseptic Throat [place] 1.4 % mucous membrane spra 2 spray every 4 hours [Active]; clonidine HCl 0.3 mg Oral tab 1 tab three times a day [Active]; donepezil 10 mg Oral tab nightly [Active]; doxazosin 4 mg Oral tab 1 tab every 12 hours for Hypertension [Active]; fentanyl 25 mcg/hr Topical pt72 1 patch every 72 hours [Active]; Fleet Enema 19-7 gram/118 mL Rectal enem every 24 hours prn constipation [Active]; folic acid 1 mg Oral tab 1 tab once daily [Active]; furosemide 40 mg Oral tab 1 tab once daily [Active]; gabapentin 100 mg Oral cap twice a day [Active]; Ria-Tussin 578-198-92ur/5mL Oral liqd 30 mL every 4 hours for Cough [Active]; losartan 50 mg Oral tab 1 tab 2 times per day [Active]; Milk of Magnesia Oral 30 mL once daily for constipation [Active]; Nepro Carb Steady Oral [Active]; nifedipine 60 mg Oral TbER 1 tab 2 times daily [Active]; [place] 7.5-325 mg Oral tab 1 tab every 6 hours for Pain [Active]; [place] 5-325 mg Oral tab 1 tab 2 times daily for Pain [Active]; Novolin 70/30 suspension 100 unit/ mL. Inject 7 units SQ BID [Active]; ondansetron HCl 4 mg Oral tab 1 tabs every 6 hours [Active]; pramipexole 0.25 mg Oral tab 1 tab nightly for Idiopathic Parkinsonism [Active]; Protonix 40 mg Oral TbEC 1 tab before meals [Active]; ranolazine 500 mg Oral 1 tab 2 times per day [Active]; Saline nasal [Active]; Tylenol-Codeine #4 300-60 mg Oral tab 1 tab every 6 hours for Pain [Active]; venlafaxine 150 mg Oral cp24 twice a day [Active]; Vitamin D Oral 5000 unit daily [Active]; Xanax 0.5 mg Oral tab 1 tab every 8 hours PRN for Anxiety [Active]; ziprasidone HCl 40 mg Oral cap 2 times per day [Active]; - PMHx: 22:18 ADD/ADHD; Anemia; Anxiety; Asthma; Atherosclerotic heart disease; Bipolar disorder; tl2 Dementia; Diabetes - NIDDM; Dialysis; ESRD; GERD; GI Hemorrhage; HEART FAILURE; Hypertension; insomnia; Major Depressive Disorder; osteomyelitis; Paraplegia; Parkinsons; Post Laminectomy Syndrome; pressure ulcer of left ankle stage II; Pressure ulcer of right ankle, stage II; Sacral Pressure Ulcer Stage III; - Immunization history:: Adult Immunizations up to date. - Social history:: Smoking status: Patient/guardian denies using tobacco. ROS: 01/11 01:19 All other systems are negative. gs Exam: 01:19 Head/Face: Normocephalic, atraumatic. Eyes: Pupils equal round and reactive to light, gs extra-ocular motions intact. Lids and lashes normal. Conjunctiva and sclera are non-icteric and not injected. Cornea within normal limits. Periorbital areas with no swelling, redness, or edema. ENT: Nares patent. No nasal discharge, no septal abnormalities noted. Tympanic membranes are normal and external auditory canals are clear. Oropharynx with no redness, swelling, or masses, exudates, or evidence of obstruction, uvula midline. Mucous membranes moist. 01:19 Neck: Trachea midline, no thyromegaly or masses palpated, and no cervical lymphadenopathy. Supple, full range of motion without nuchal rigidity, or vertebral point tenderness. No Meningismus. Chest/axilla: Normal chest wall appearance and motion. Nontender with no deformity. No lesions are appreciated. Abdomen/GI: Soft, non-tender, with normal bowel sounds. No distension or tympany. No guarding or rebound. No evidence of tenderness throughout. Back: No spinal tenderness. No costovertebral tenderness. Full range of motion. Skin: Warm, dry with normal turgor. Normal color with no rashes, no lesions, and no evidence of cellulitis. MS/ Extremity: Pulses equal, no cyanosis. Neurovascular intact. Full, normal range of motion. Neuro: Awake and alert, GCS 15, oriented to person, place, time, and situation. Cranial nerves II-XII grossly intact. Motor strength 5/5 in all extremities. Sensory grossly intact. Cerebellar exam normal. Normal gait. 01:19 Constitutional: The patient appears alert, awake. :19 Constitutional: The patient appears in obvious distress, severely distressed. 01:19 Cardiovascular: Rate: normal, Rhythm: regular. :19 ECG was reviewed by the Attending Physician. :19 Respiratory: severe repiratory distress is noted, Respirations: labored breathing, tachypnea, Breath sounds: decreased breath sounds, that are moderate, are located in both bases. Vital Signs: 01/10 22:18 BP 201 / 96; Pulse 60; Resp 22; Pulse Ox 100% on 50% BiPAP; Weight 72.2 kg (M); Height tl2 5 ft. 7 in. (170.18 cm); Pain 0/10; 22:49 BP 198 / 92; Pulse 63; Resp 22; Pulse Ox 100% on 50% BiPAP; ak1 23:01 BP 185 / 77; Pulse 52; Resp 22; Temp 98.0(A); Pulse Ox 100% on 50% BiPAP; ak1 23:32 BP 174 / 73; Pulse 57; Resp 20; Pulse Ox 100% on 50% BiPAP; ak1 01/11 00:21 BP 169 / 81; Pulse 70; Resp 22; Temp 98.2(A); Pulse Ox 100% on 40% BiPAPRT decreased pt ak1 bipap to 40%; 01:34 BP 150 / 75; Pulse 57; Resp 22; Temp 98.3; Pulse Ox 100% on 40% BiPAP; ak1 01/10 22:18 Body Mass Index 24.93 (72.20 kg, 170.18 cm) tl2 MDM: 01/10 22:17 Patient medically screened. 01/11 01:19 Differential diagnosis: CHF exacerbation, Chronic Obstructive Pulmonary Disease gs Myocardial Infarction pneumonia. Data reviewed: vital signs, nurses notes. Response to treatment: the patient's symptoms have markedly improved after treatment, and as a result, I will discharge patient. 01/10 22:20 Order name: Basic Metabolic Panel 01/10 22:20 Order name: CBC with Diff 01/10 22:20 Order name: PT-INR 01/10 22:20 Order name: Troponin (emerg Dept Use Only) 01/10 22:56 Order name: CBC with Automated Diff; Complete Time: 00:13 EDMS 01/10 23:07 Order name: Basic Metabolic Panel; Complete Time: 00:13 EDMS 01/10 22:20 Order name: XRAY Chest (1 view) 01/10 22:20 Order name: EKG; Complete Time: 22:20 01/10 22:20 Order name: Cardiac monitoring; Complete Time: 22:25 01/10 23:07 Order name: Protime (+INR); Complete Time: 00:13 EDMS 01/10 23:15 Order name: Troponin (Emerg Dept Use Only); Complete Time: 00:13 EDMS 01/10 23:40 Order name: Manual Differential; Complete Time: 00:13 EDMS 01/10 22:20 Order name: EKG - Nurse/Tech; Complete Time: 22:25 01/10 22:20 Order name: IV Saline Lock; Complete Time: 22:48 01/10 22:20 Order name: Labs collected and sent; Complete Time: 22:48 01/10 22:20 Order name: O2 Per Protocol; Complete Time: : 01/10 22:20 Order name: O2 Sat Monitoring; Complete Time: : EC:19 Rate is 65 beats/min. Rhythm is regular. NV interval is normal. QRS interval is gs prolonged. T waves are Flattened. Clinical impression: NSR w/ Non-specific ST/T Changes. Interpreted by me. Administered Medications: 01/10 22:32 CANCELLED (wrong pt): Ketamine 0.5 mg/kg IVP once 23:01 Drug: hydrALAZINE 20 mg Route: IV; Rate: bolus; Site: right antecubital; ak1 Point of Care Testing: Blood Glucose: : Blood Glucose: 119 mg/dL; tl2 Ranges: Critical Glucose Levels:Adult <50 mg/dl or >400 mg/dl <40 mg/dl or >180 mg/dl Disposition: 01/11/18 01:25 Hospitalization ordered by Meg Nixon for Inpatient Admission. Preliminary diagnosis is Acute respiratory failure. - Bed requested for Telemetry/MedSurg (Inpatient). - Status is Inpatient Admission. ak1 - Condition is Stable. - Problem is an acute exacerbation. - Symptoms have improved. UTI on Admission? No Signatures: Dispatcher [employer] EDCamilla Meza RN RN kl Krenek, Amber, RN RN ak1 Mel Du RN RN tl2 Mendel Dukes MD MD Corrections: (The following items were deleted from the chart) : 22:31 Ketamine 0.5 mg/kg IVP once ordered. [facility] 01/11 03:01 01/10 22:20 Urine Dipstick-Ancillary ordered. ak1
--- NOTE | 2018-01-11 02:10 | P.HP ---
Certification for Inpatient Patient admitted to: Inpatient With expected LOS: >2 Midnights Practitioner: I am a practitioner with admitting privileges, knowledge of patient current condition, hospital course, and medical plan of care. Services: Services provided to patient in accordance with Admission requirements found in Title 42 Section 412.3 of the Code of Federal Regulations Patient History Date of Service: 01/11/18 Reason for admission: acute respiratory failure History of Present Illness: Mr Martinez is a 57 years old male with multiple chronic medical conditions, well known due to frequent recurrent admission to this hospital. His ex- states that the patient was complaining of more back pain than usual today, and after he received the pain medication, he was found by NH staff with difficulty breathing. O2 sat at this time was 78% on RA. He was placed on CIPAP and improved to 98%. His BP was significant elevated as well. He had HD today. No history of fever or chills. According to the patient he has had cough with yellowish secretions since 2 days ago. CXR shows no obvious new infiltrate or significant difference with previous one, WBC elevated 14.4K with 4% bandemia. He was afebrile in ED. Allergies No Known Drug Allergies Allergy (Verified 12/01/17 23:37) Unknown Home Medications: Cholecalciferol (Vitamin D3) [Vitamin D3] 5,000 unit PO DAILY 04/04/17 Donepezil HCl 10 mg PO BEDTIME 04/04/17 Losartan Potassium [Cozaar*] 50 mg PO BID 04/04/17 Ranolazine [Ranexa] 500 mg PO BID 04/04/17 Venlafaxine HCl [Venlafaxine HCl ER] 150 mg PO BID 04/04/17 Acetaminophen [Pain Relief] 650 mg PO Q6HP PRN 05/11/17 Furosemide [Lasix] 40 mg PO DAILY #30 tablet 05/15/17 Fentanyl Patch [Duragesic Patch*] 25 mcg TD Q72H 06/14/17 Ipratropium/Albuterol Sulfate [Iprat-Albut 0.5-3(2.5) mg/3 ml] 3 ml IH Q6HP PRN 06/14/17 Ziprasidone HCl [Geodon*] 40 mg PO BID 06/14/17 Carvedilol [Coreg*] 25 mg PO BID 6AM 6PM #60 tab 06/15/17 Doxazosin [Cardura*] 4 mg PO BID #30 tab 06/15/17 Folic Acid 1 mg PO DAILY #30 tablet 06/15/17 Hydrocodone 7.5/APAP 325 [[place] 7.5/325 mg*] 1 tab PO Q6HP PRN 09/04/17 Pramipexole [Mirapex*] 0.25 mg PO BEDTIME 09/04/17 Clonidine HCl 0.3 mg PO TID #90 tablet 09/19/17 Insulin NPH Human [Novolin N (Humulin N)*] 7 units SQ BID 09/19/17 Alprazolam [Xanax] 0.5 mg PO Q8H PRN 12/01/17 Gabapentin [Neurontin*] 100 mg PO BID 12/01/17 Nifedipine [Nifedipine ER] 90 mg PO BID 12/01/17 Ondansetron [Zofran (Odt)*] 4 mg PO Q6H PRN 12/01/17 Aspirin Chewable [Aspirin Chewable*] 162 mg PO DAILY #30 tab.chew 12/04/17 Atorvastatin Calcium [Lipitor*] 10 mg PO BEDTIME #30 tab 12/04/17 Calcitrol [Rocaltrol*] 0.5 mcg PO DAILY #30 cap 12/04/17 Amox/Clavulanate [Augmentin 875-125 Tab*] 1 each PO BID 12/22/17 Arformoterol Tartrate [Brovana] 15 mcg IH BID 12/22/17 Nitroglycerin 0.4 mg SL Q5MX3 PRN 12/22/17 Pantoprazole [Protonix Tab*] 40 mg PO BID #60 tab 12/26/17 - Past Medical/Surgical History Diabetic: Yes -: DM-Type 2 -: HTN -: Hyperlipidemia -: Dementia, Parkinsons disease -: GERD -: ESRD, Nephrology-Dr. Leavitt, Dialysis-,Sat -: Restless leg syndrome -: COPD -: Depression, insomnia -: Anemia of chronic disease -: Normal-pressure hydrocephalus -: CAD, PUD -: Cardiac stents. -: Numerous back surgeries Psychosocial/ Personal History: He has a girlfriend. He has one daughter. [facility] - Family History Mother -: Heart disease, Hypertension Father -: Heart disease - Social History Smoking Status: Never smoker Alcohol use: No CD- Drugs: No Caffeine use: Yes Place of Residence: Residential Review of Systems 10-point ROS is otherwise unremarkable Physical Examination - Physical Exam General: Alert, Mild distress (due to SOB and back pain) HEENT: Atraumatic, PERRLA, Mucous membr. moist/pink, EOMI, Sclerae nonicteric Neck: Supple, 2+ carotid pulse no bruit, No LAD, Without JVD or thyroid abnormality Respiratory: Normal air movement, Other (coarse bilateral) Cardiovascular: Regular rate/rhythm, Normal S1 S2 Gastrointestinal: Normal bowel sounds, No tenderness Musculoskeletal: No tenderness Integumentary: No rashes Neurological: Normal speech, Sensation intact, Normal affect Lymphatics: No axilla or inguinal lymphadenopathy - Studies Laboratory Data (last 24 hrs) 01/10/18 22:40: PT 12.7 H, INR 1.08 01/10/18 22:40: WBC 14.4 H, Hgb 9.0 L, Hct 28.4 L, Plt Count 201 01/10/18 22:40: Sodium 139, Potassium 4.3, BUN 23 H, Creatinine 3.03 H, Glucose 97 Assessment and Plan - Problems (Diagnosis) (1) Acute respiratory failure Current Visit: No Status: Acute Qualifiers: Respiratory failure complication: unspecified whether with hypoxia or hypercapnia Qualified Code(s): J96.00 - Acute respiratory failure, unspecified whether with hypoxia or hypercapnia (2) Elevated white blood cell count Onset Date: 05/21/17 Current Visit: No Status: Acute Qualifiers: Leukocytosis type: other Qualified Code(s): D72.828 - Other elevated white blood cell count (3) Chronic pain Onset Date: 01/10/17 Current Visit: No Status: Chronic Qualifiers: Chronic pain type: chronic pain syndrome Qualified Code(s): G89.4 - Chronic pain syndrome (4) Diabetes Onset Date: 12/24/17 Current Visit: No Status: Chronic Qualifiers: Diabetes mellitus type: type 2 Diabetes mellitus shelter insulin use: unspecified shelter insulin use status Diabetes mellitus complication status : with kidney complications Diabetes mellitus complication detail: with chronic kidney disease Chronic kidney disease stage: on chronic dialysis Qualified Code(s): E11.22 - Type 2 diabetes mellitus with diabetic chronic kidney disease; N18.6 - End stage renal disease; Z99.2 - Dependence on renal dialysis (5) ESRD (end stage renal disease) Onset Date: 12/24/17 Current Visit: No Status: Chronic (6) Hypertension Onset Date: 12/24/17 Current Visit: No Status: Chronic Qualifiers: Hypertension type: essential hypertension Qualified Code(s): I10 - Essential (primary) hypertension - Plan Mr Martinez will be admitted to the hospital due to acute respiratory failure. Differential diagnosis are early pneumonia vs acte bronchitis. Will cover with empiric antibiotic treatment. Check lactate, procalcitonin, order blood and sputum culture. Consult Dr Leavitt and Dr Rosario. - Advance Directives Does patient have a Living Will: No Does patient have a Durable POA for Healthcare: Yes - Code Status/Comfort Care Code Status Assessed: Yes Code Status: Full Code
[2018-01-11] MEDS ORDERED: AZITHROMYCIN IV 500 MG in NA CHLORIDE 0.9% 250 ML IVPB SCH (02:52)
[2018-01-11] MEDS ORDERED: ONDANSETRON 4 MG/2 ML VIAL IV PRN (02:52)
[2018-01-11] MEDS ORDERED: CEFTRIAXONE 1 GM/NS 50 ML 1 GM/50 ML BAG IV SCH ×2 (02:52→04:00)
[2018-01-11] MEDS ORDERED: ACETAMINOPHEN 500 MG TAB PO PRN (02:52)
[2018-01-11 03:23] VITALS: BMI 24.9
[2018-01-11] MEDS: IPRATROPIUM BROM 0.5MG/2.5ML NEB SCH ×3 (03:25→13:52)
[2018-01-11] MEDS: ALBUTEROL 2.5 MG/3 ML NEB SOL NEB SCH ×3 (03:25→13:52)
[2018-01-11] MEDS ORDERED: IPRATROPIUM BROM 0.5MG/2.5ML ONE (03:36)
[2018-01-11] MEDS ORDERED: CEFTRIAXONE/SWI 1gm 1 GM/10 ML SYR ONE (03:52)
[2018-01-11] MEDS ORDERED: AZITHROMYCIN 500 MG/250 ML BAG ONE (03:57)
[2018-01-11] MEDS: INSULIN -REGULAR HUMAN 50 UNIT/0.5 ML ML SQ SCH ×2 (07:30→11:30)
--- NOTE | 2018-01-11 07:56 | EKG ---
Test Date: 2018-01-10 Test Time: 22:11:42 Grinder Set Up Operator Internal: MADDIE MEASUREMENT RESULTS: Intervals: Rate: 65 DE: 164 QRSD: 132 QT: 472 QTc: 490 [place]: P: 56 DE: 164 QRS: 70 T: -24 INTERPRETIVE STATEMENTS: Normal sinus rhythm Nonspecific intraventricular block Abnormal QRS-T angle, consider primary T wave abnormality Abnormal ECG Compared to ECG 12/20/2017 14:05:02 T-wave abnormality now present Electronically Signed On 01-11-18 07:56:20 CDT by Júnior Napoles
--- NOTE | 2018-01-11 08:33 | RAD REPORT ---
EXAM DESCRIPTION: RAD - Chest Single View - 01/10/2018 11:00 pm CLINICAL HISTORY: Chest pain, shortness of breath COMPARISON: December 22 TECHNIQUE: AP portable chest image was obtained 2237 hours . FINDINGS: No peripheral mass or consolidation. Double-lumen dialysis catheter is in place in good po sition. Cardiomegaly is present similar to prior imaging. No vascular engorgement. Fullness of the ri ght hilum is similar to prior imaging. An acute lung parenchymal process is not suspected. No measura ble pleural effusion and no pneumothorax. No gross bony abnormality seen. No acute aortic findings bejarano spected. IMPRESSION: No acute cardiopulmonary process. The above detailed findings are not substantially different from prior imaging.
--- NOTE | 2018-01-11 10:32 | P.CNS ---
Date of Consult: 01/11/18 Reason for Consult: Hypoxemia Chief Complaint: Hypoxemia History of Present Illness: Patient is 57 years of age very poor historian he does not recall the van that precipitated his admission according to the H&P was given some pain medication then is oxygen saturation declined patient lives in a group home is paraplegic denies any worsening dyspnea cough sputum hemoptysis or chest pain currently on BiPAP history of COPD Allergies No Known Drug Allergies Allergy (Verified 12/01/17 23:37) Unknown No Known Allergies Allergy (Uncoded 01/11/18 03:07) Unknown Home Medications: Cholecalciferol (Vitamin D3) [Vitamin D3] 5,000 unit PO DAILY 04/04/17 Donepezil HCl 10 mg PO BEDTIME 04/04/17 Losartan Potassium [Cozaar*] 50 mg PO BID 04/04/17 Ranolazine [Ranexa] 500 mg PO BID 04/04/17 Venlafaxine HCl [Venlafaxine HCl ER] 150 mg PO BID 04/04/17 Acetaminophen [Pain Relief] 650 mg PO Q6HP PRN 05/11/17 Furosemide [Lasix] 40 mg PO DAILY #30 tablet 05/15/17 Fentanyl Patch [Duragesic Patch*] 25 mcg TD Q72H 06/14/17 Ipratropium/Albuterol Sulfate [Iprat-Albut 0.5-3(2.5) mg/3 ml] 3 ml IH Q6HP PRN 06/14/17 Ziprasidone HCl [Geodon*] 40 mg PO BID 06/14/17 Carvedilol [Coreg*] 25 mg PO BID 6AM 6PM #60 tab 06/15/17 Doxazosin [Cardura*] 4 mg PO BID #30 tab 06/15/17 Folic Acid 1 mg PO DAILY #30 tablet 06/15/17 Hydrocodone 7.5/APAP 325 [[place] 7.5/325 mg*] 1 tab PO Q6HP PRN 09/04/17 Pramipexole [Mirapex*] 0.25 mg PO BEDTIME 09/04/17 Clonidine HCl 0.3 mg PO TID #90 tablet 09/19/17 Insulin NPH Human [Novolin N (Humulin N)*] 7 units SQ BID 09/19/17 Alprazolam [Xanax] 0.5 mg PO Q8H PRN 12/01/17 Gabapentin [Neurontin*] 100 mg PO BID 12/01/17 Nifedipine [Nifedipine ER] 90 mg PO BID 12/01/17 Ondansetron [Zofran (Odt)*] 4 mg PO Q6H PRN 12/01/17 Aspirin Chewable [Aspirin Chewable*] 162 mg PO DAILY #30 tab.chew 12/04/17 Atorvastatin Calcium [Lipitor*] 10 mg PO BEDTIME #30 tab 12/04/17 Calcitrol [Rocaltrol*] 0.5 mcg PO DAILY #30 cap 12/04/17 Amox/Clavulanate [Augmentin 875-125 Tab*] 1 each PO BID 12/22/17 Arformoterol Tartrate [Brovana] 15 mcg IH BID 12/22/17 Nitroglycerin 0.4 mg SL Q5MX3 PRN 12/22/17 Pantoprazole [Protonix Tab*] 40 mg PO BID #60 tab 12/26/17 - Past Medical/Surgical History Diabetic: Yes -: DM-Type 2 -: HTN -: Hyperlipidemia -: Dementia, Parkinsons disease -: GERD -: ESRD, Nephrology-Dr. Leavitt, Dialysis-,,Sat -: Restless leg syndrome -: COPD -: Depression, insomnia -: Anemia of chronic disease -: Normal-pressure hydrocephalus -: CAD, PUD -: Cardiac stents. -: Numerous back surgeries Psychosocial/ Personal History: He has a girlfriend. He has one daughter. He currently lives at the group home - Family History Mother Medical History: Heart disease, Hypertension Father Medical History: Heart disease - Social History Smoking Status: Unknown if ever smoked Alcohol use: No CD- Drugs: No Caffeine use: Yes Place of Residence: Senior Living Review of Systems is unable to be obtained Physical Examination Temp Pulse Resp BP Pulse Ox 99.2 F 60 14 188/73 H 100 01/11/18 08:00 01/11/18 08:00 01/11/18 08:00 01/11/18 08:00 01/11/18 08:00 General: Alert, Cooperative Respiratory: Clear to auscultation bilaterally Cardiovascular: No edema, Normal S1 S2 Gastrointestinal: Normal bowel sounds, Soft and benign Neurological: Other (Patient has lower extremity para paresis) Laboratory Data (last 24 hrs) 01/10/18 22:40: PT 12.7 H, INR 1.08 01/10/18 22:40: WBC 14.4 H, Hgb 9.0 L, Hct 28.4 L, Plt Count 201 01/10/18 22:40: Sodium 139, Potassium 4.3, BUN 23 H, Creatinine 3.03 H, Glucose 97 - Problems (1) COPD (chronic obstructive pulmonary disease) Onset Date: 12/24/17 Current Visit: No Status: Chronic Plan: Patient is 57 years of age admitted with hypoxemia he does have a history of COPD chest x-rays clear some cardiomegaly he has chronic renal failure patient' s blood pressure is elevated also recommend increasing the dose of Lasix to 80 mg with fluid restriction patient uses Brovanan at home ordered room-air blood gases may have underlying obstructive sleep apnea patient is at high risk the an outpatient sleep study last echocardiogram done in November does show element of diastolic dysfunction Qualifiers: COPD type: unspecified COPD Qualified Code(s): J44.9 - Chronic obstructive pulmonary disease, unspecified
[2018-01-11 10:40] VITALS: O2SAT 100
[2018-01-11] MEDS: CLONIDINE HCL 0.3 MG TAB PO SCH ×2 (12:22→14:10)
[2018-01-11 13:20] VITALS: TEMP 97.8
[2018-01-11 13:44] LABS: Arterial Blood Carboxyhemoglob 1.7 % (0-1.5); Blood Gas Oxyhemoglobin 76.2 % (94-97); Blood O2 Saturation 78.9 % (92-98.5)
[2018-01-11 14:32] VITALS: BP 168/74
[2018-01-11] MEDS ORDERED: NIFEDIPINE XL 90 MG TABLET PO SCH (15:00)
[2018-01-11] MEDS ORDERED: CARVEDILOL 25 MG TAB PO SCH (18:00)
--- NOTE | 2018-01-11 18:39 | P.CNS ---
Date of Consult: 01/11/18 Reason for Consult: Dyspnea Requesting Physician: Valery Norman Chief Complaint: Hypoxemia History of Present Illness: Patient was admitted to the hospital for acute respiratory failure most likely secondary to acute worsening of CHF versus obstructive sleep apnea. Pulmonology was consulted who recommended the patient be discharged home with a followup appointment of 2 weeks and do some Lasix be increased to 40 mg b.i.d.. 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 Patient also has a cardiology followup outpatient. The senior care was contacted regarding low-sodium diet along with fluid restriction and the compliance with that will probably be best for the patient. Patient was saturating 100% on room air and thus was discharged back to the senior care. 01:19 This 57 yrs old Male presents to ER via EMS with complaints of Respiratory gs Distress. 01:19 The patient has shortness of breath at rest. Onset: The symptoms/episode began/occurred gs acutely, just prior to arrival. Duration: The symptoms are continuous, and are unchanged since they started. The patient's shortness of breath has no apparent modifying factors. Associated signs and symptoms: Pertinent positives: chest pain. Severity of symptoms: At their worst the symptoms were severe in the emergency department the symptoms are unchanged. The patient has experienced similar episodes in the past, a few times. The patient has been recently been admitted at [facility], was discharged last week. Allergies No Known Drug Allergies Allergy (Verified 12/01/17 23:37) Unknown No Known Allergies Allergy (Uncoded 01/11/18 03:07) Unknown Home medications list reviewed: Yes Home Medications: Cholecalciferol (Vitamin D3) [Vitamin D3] 5,000 unit PO DAILY 04/04/17 Donepezil HCl 10 mg PO BEDTIME 04/04/17 Losartan Potassium [Cozaar*] 50 mg PO BID 04/04/17 Ranolazine [Ranexa] 500 mg PO BID 04/04/17 Venlafaxine HCl [Venlafaxine HCl ER] 150 mg PO BID 04/04/17 Acetaminophen [Pain Relief] 650 mg PO Q6HP PRN 05/11/17 Fentanyl Patch [Duragesic Patch*] 25 mcg TD Q72H 06/14/17 Ipratropium/Albuterol Sulfate [Iprat-Albut 0.5-3(2.5) mg/3 ml] 3 ml IH Q6HP PRN 06/14/17 Ziprasidone HCl [Geodon*] 40 mg PO BID 06/14/17 Carvedilol [Coreg*] 25 mg PO BID 6AM 6PM #60 tab 06/15/17 Doxazosin [Cardura*] 4 mg PO BID #30 tab 06/15/17 Folic Acid 1 mg PO DAILY #30 tablet 06/15/17 Hydrocodone 7.5/APAP 325 [[place] 7.5/325 mg*] 1 tab PO Q6HP PRN 09/04/17 Pramipexole [Mirapex*] 0.25 mg PO BEDTIME 09/04/17 Clonidine HCl 0.3 mg PO TID #90 tablet 09/19/17 Insulin NPH Human [Novolin N (Humulin N)*] 7 units SQ BID 09/19/17 Alprazolam [Xanax] 0.5 mg PO Q8H PRN 12/01/17 Gabapentin [Neurontin*] 100 mg PO BID 12/01/17 Nifedipine [Nifedipine ER] 90 mg PO BID 12/01/17 Ondansetron [Zofran (Odt)*] 4 mg PO Q6H PRN 12/01/17 Aspirin Chewable [Aspirin Chewable*] 162 mg PO DAILY #30 tab.chew 12/04/17 Atorvastatin Calcium [Lipitor*] 10 mg PO BEDTIME #30 tab 12/04/17 Calcitrol [Rocaltrol*] 0.5 mcg PO DAILY #30 cap 12/04/17 Arformoterol Tartrate [Brovana] 15 mcg IH BID 12/22/17 Nitroglycerin 0.4 mg SL Q5MX3 PRN 12/22/17 Pantoprazole [Protonix Tab*] 40 mg PO BID #60 tab 12/26/17 Furosemide [Lasix] 40 mg PO BID #60 tablet 01/11/18 Levofloxacin [Levaquin] 500 mg PO DAILY #14 tablet 01/11/18 - Past Medical/Surgical History Diabetic: Yes -: DM-Type 2 -: HTN -: Hyperlipidemia -: Dementia, Parkinsons disease -: GERD -: ESRD, Nephrology-Dr. Leavitt, Dialysis-,,Sat -: Restless leg syndrome -: COPD -: Depression, insomnia -: Anemia of chronic disease -: Normal-pressure hydrocephalus -: CAD, PUD -: Cardiac stents. -: Numerous back surgeries Psychosocial/ Personal History: He has a girlfriend. He has one daughter. He currently lives at the senior care - Family History Mother Medical History: Heart disease, Hypertension Father Medical History: Heart disease - Social History Smoking Status: Unknown if ever smoked Alcohol use: No CD- Drugs: No Caffeine use: Yes Place of Residence: Long-Term Review of Systems 10-point ROS is otherwise unremarkable General: Weakness, Malaise Respiratory: SOB with Excertion Physical Examination Temp Pulse Resp BP Pulse Ox 97.8 F 58 16 168/74 H 99 01/11/18 12:00 01/11/18 14:31 01/11/18 14:31 01/11/18 14:31 01/11/18 14:31 General: Alert, Oriented x3 HEENT: Atraumatic, Mucous membr. moist/pink Neck: Supple, JVD distended Respiratory: Diminished, Expiratory wheezes Cardiovascular: No edema, Regular rate/rhythm, No rubs Gastrointestinal: Soft and benign, Non-distended, No guarding Musculoskeletal: No clubbing, No contractures Integumentary: No rashes, No cyanosis Neurological: Normal speech Laboratory Data (last 24 hrs) 01/10/18 22:40: PT 12.7 H, INR 1.08 01/10/18 22:40: WBC 14.4 H, Hgb 9.0 L, Hct 28.4 L, Plt Count 201 01/10/18 22:40: Sodium 139, Potassium 4.3, BUN 23 H, Creatinine 3.03 H, Glucose 97 Imagings Data: EXAM DESCRIPTION: RAD - Chest Single View - 01/10/2018 11:00 pm CLINICAL HISTORY: Chest pain, shortness of breath COMPARISON: December 22 TECHNIQUE: AP portable chest image was obtained 2237 hours . FINDINGS: No peripheral mass or consolidation. Double-lumen dialysis catheter is in place in good position. Cardiomegaly is present similar to prior imaging. No vascular engorgement. Fullness of the right hilum is similar to prior imaging. An acute lung parenchymal process is not suspected. No measurable pleural effusion and no pneumothorax. No gross bony abnormality seen. No acute aortic findings suspected. IMPRESSION: No acute cardiopulmonary process. The above detailed findings are not substantially different from prior imaging. Conclusions/Impression: A/ ESRD on HD. HTN with CKD. Diastolic CHF, chronic. Anemia in CKD. JACOB/ Secondary HyperPTH. COPD with exacerbation. P/ Continue current POC and Medications. Appreciate pulmonary input. Evaluation for sleep apnea. Restart home medications as needed. Next HD tomorrow. AM labs. Daily weight. Thank you kindly for the consultation.
[2018-01-11] MEDS ORDERED: DOXAZOSIN 4 MG TAB PO SCH (21:00)
[2018-01-11] MEDS ORDERED: LOSARTAN POTASSIUM 50 MG TABLET PO SCH (21:00)
[2018-01-12] MEDS ORDERED: AZITHROMYCIN IV 500 MG in NA CHLORIDE 0.9% 250 ML IVPB SCH (03:00)
[2018-01-12] MEDS ORDERED: CEFTRIAXONE/SWI 1gm 1 GM/10 ML SYR IV SCH (04:00)
[2018-01-12] MEDS ORDERED: FUROSEMIDE 40 MG TABLET PO SCH (09:00)
== END 2018-01-11 15:20 | DRG 189 ==
LOC: ER 22:06 → 4TH 01-11 02:13
PROVIDERS: ADMIT Internal Medicine; ATTEND Family Medicine
DX: J96.00 Acute respiratory failure, unspecified whether with hypoxia or hypercapnia (principal); N18.6 End stage renal disease; I12.0 Hypertensive chronic kidney disease with stage 5 chronic kidney disease or end stage renal disease; I13.2 Hypertensive heart and chronic kidney disease with heart failure and with stage 5 chronic kidney disease, or end stage renal disease; I50.32 Chronic diastolic (congestive) heart failure; J44.1 Chronic obstructive pulmonary disease with (acute) exacerbation; E78.5 Hyperlipidemia, unspecified; G20 Parkinson's disease; F02.80 Dementia in other diseases classified elsewhere, unspecified severity, without behavioral disturbance, psychotic disturbance, mood disturbance, and anxiety; K21.9 Gastro-esophageal reflux disease without esophagitis; E11.22 Type 2 diabetes mellitus with diabetic chronic kidney disease; G25.81 Restless legs syndrome; D63.1 Anemia in chronic kidney disease; Z99.2 Dependence on renal dialysis
CPT/HCPCS: 36415; 51702; 71045; 80048; 82805; 82962; 83605; 84145; 84484; 85025; 85610; 87040; 93005; 94640; 96374; 99285; J0360; J0456; J0696

== ENCOUNTER 2018-01-13 00:10 | Emergency (ER) | payer MEDICAID ==
--- OUTSIDE RECORDS SUMMARY | 2018-01-13 00:18 | XMS REPORT ---
:1960 [facility] Address [address] [place] [address] [address] [place] [address] Care Team Providers Name Role Phone Keo [...] Reference Range Comments METHYLMALONIC ACID, SERUM (test nfmj=[id number]) 603 nmol/L 0-378 PERFORMED AT: [facility] [id number] INDUSTRIAL SERVICE TECHNICIAN: Donnie Youssef MD PHONE: [phone], [id number] 06:50:00To start 15mins after 1st cultureSpecimen: BloodCollected: 2016 01:33 Status: Final Last Updated: 06/21/2017 06:49 (1) To start 15mins after 1st culture Culture Result (Final) (Final) No Growth After 5 DaysCULTURE, [id number] 06:50:00Specimen: BloodCollected: 06/16/2017 01: 20 Status: Final Last Updated: 06/21/2017 06:49 Culture Result (Final) ( Final) No Growth After 5 [id number] 09:05:00 Test Item Value Reference Range Comments [...] mL/min/1.73m\\S\\2 EGFR if Non- 17 Estimated Glomerular Citizen [place] (test mL/min/1.73m\\S\\2 Filtration Rate (eGFR) code=EGFRNA) Reference [...] of chronic kidney failure. CBC WITH AUTO [id number] 08:50:00 Test Item Value Reference Range Comments [...] code=IG%) 0.7 % 0.0-0.4 CBC WITH AUTO [id number] 01:49:00 Test Item Value Reference Range Comments [...] code=IG%) 0.9 % 0.0-0.4 CBC WITH AUTO [id number] 20:08:00 Test Item Value Reference Range Comments [...] code=IG%) 0.7 % 0.0-0.4 CBC WITH AUTO [id number] 13:58:00 Test Item Value Reference Range Comments [...] 1.0-3.0 IG% (test code=IG%) 0.7 % 0.0-0.4 [id number] 09:14:00 Test Item Value Reference Range Comments [...] mL/min/1.73m\\S\\2 EGFR if Non- 16 Estimated Glomerular Citizen [place] (test mL/min/1.73m\\S\\2 Filtration Rate (eGFR) code=EGFRNA) Reference [...] of chronic kidney failure. CBC WITH AUTO [id number] 09:05:00 Test Item Value Reference Range Comments [...] code=IG%) 0.7 % 0.0-0.4 CBC WITH AUTO [id number] 02:17:00 Test Item Value Reference Range Comments [...] code=IG%) 0.7 % 0.0-0.4 CBC WITH AUTO [id number] 20:02:00 Test Item Value Reference Range Comments [...] code=IG%) 0.8 % 0.0-0.4 CBC WITH AUTO [id number] 14:17:00 Test Item Value Reference Range Comments [...] 1.0-3.0 IG% (test code=IG%) 0.9 % 0.0-0.4 [id number] 08:47:00 Test Item Value Reference Range Comments Magnesium (test code=MG) 1.9 mg/dl 1.6-2.3 [id number] 08:47:00 Test Item Value Reference Range Comments [...] mL/min/1.73m\\S\\2 EGFR if Non- 17 Estimated Glomerular Citizen [place] (test mL/min/1.73m\\S\\2 Filtration Rate (eGFR) code=EGFRNA) Reference [...] of chronic kidney failure. CBC WITH AUTO [id number] 08:22:00 Test Item Value Reference Range Comments [...] code=IG%) 0.8 % 0.0-0.4 CBC WITH AUTO [id number] 03:42:00 Test Item Value Reference Range Comments [...] on ############### was changed to 1 by [id number] on 06/17/2017 03:42 Neutrophils (test 68 % 42-75 The value no value code=NEUTR) originally released by on ############### was changed to 68 by [id number] on 06/17/2017 03:42 Lymphocytes (test 16 % 13-42 The value no value code=LYMPH) originally released by on ############### was changed to 16 by [id number] on 06/17/2017 03:42 Monocytes (test 11 % 4-14 The value no value code=MONOS) originally released by on ############### was changed to 11 by [id number] on 06/17/2017 03:42 Eosinophils (test 3 % 1-3 The value no value code=EOS) originally released by on ############### was changed to 3 by [id number] on 06/17/2017 03:42 Basophils (test 1 % 0-1 The value no value code=BASO) originally released by on ############### was changed to 1 by [id number] on 06/17/2017 03:42 RBC Morphology (test Anisocytosis The value no value code=RBCMOR) Hypochromic originally released by on ############### was changed to Anisocytosis Hypochromic by [id number] on 06/17/2017 03:42 Platelet Morphology Giant platelets The value no value (test code=PLTMORPH) originally released by on ############### was changed to Giant platelets by [id number] on 06/17/2017 03:42 CBC WITH AUTO [id number] 19:54:00 Test Item Value Reference Range Comments [...] code=IG%) 0.8 % 0.0-0.4 CBC WITH AUTO [id number] 14:30:00 Test Item Value Reference Range Comments [...] code=IG%) 1.0 % 0.0-0.4 CBC WITH AUTO [id number] 07:35:00 Test Item Value Reference Range Comments [...] code=IG%) 1.2 % 0.0-0.4 HEP B SURFACE [id number] 07:14:00 Test Item Value Reference Range Comments [...] code=HBSAG) Negative (qualifier Negative value) TYPE & [id number] 04:15:00 Test Item Value Reference Range Comments ABO Blood Type (test code=ABO) O Rh (test code=RH) Positive Antibody Screen (test code=ABSCR) Negative Negative ARMBAND# (test code=ARMBAND) [id number] PRO-BNP(B-Type Natriuretic Peptide)2017-06-16 03:42:00 Test Item Value Reference Range Comments Pro-BNP(B-Peptide) 05633 pg/ml 0-125 THE METHODOLOGY FOR DETECTION OF [...] TIBC (test code=TIBC) 161 ug/dl 178-500 B12, [id number] 03:32:00 Test Item Value Reference Range Comments B12 (test code=B12) 717 pg/ml 239-941 [id number] 03:32:00 Test Item Value Reference Range Comments Folic Acid (test code=FOLIC) 5.35 ng/ml 2.76-20.00 IRON [id number] 03:32:00 Test Item Value Reference Range Comments Iron (test code=FETOT) 33 ug/dl 20-149 TIBC (test code=TIBC) 161 ug/dl 178-500 Iron Saturation (test code=FESAT) 20 % 16-62 [id number] 03:05:00 Test Item Value Reference Range Comments [...] (test code=BGCTHB) 9.6 gm/dl 11.5-17.4 O2Hb (test code=GVOE4XT) 94.7 % 95.0-99.0 COHb (test code=BGFCOHB) <2.8 % 0.5-2.5 MetHB (test code=BGMETHB) <1.3 % 0.4-1.5 Gluc (test code=BGCGLU) 107.0 mg/dl 60.0-110.0 Lac (test code=BGCLAC) <1.6 mmol/l 1.0-1.7 Barometric Pressure (test code=BGBARO) 763.0 mm Hg 450.0-1000.0 BE(act) (test code=BGBEACT) -1 mmol/l HCO3 (test code=BGHCO3) 23 meq/L 22-26 ctCO2(B) (test code=BGCTCO2(B)) 21 mmol/l FIO2 (fO2(I) (test code=BGFIO2) 0.21 % Drawn By (test code=BGDRAWREAGAN) LUCY GAMBLE Collection Date (test code=BGDTCOL) 06/16/2017 Collection Time (test code=BGCTM) 03:03 Sample Site (test code=BGSAMPLESITE) R Brachial Sample Type (test code=BGSAMPLETYPE) Arterial Allens Test (test code=BGALLEN) Acceptable Notified By (test code=BGNOTIFIEDBY) LUCY GAMBLE Notified Whom (test code=BGNOTIFIEDWHOM) RN Date Notified (test code=BGDTNOTIFIED) 06/16/2017 Time Notified (test code=BGTMNOTIFIED) 03:03 O2 Device (test code=EJI0GQN2) ROOM AIR Instrument ID (test code=BGINSTRID) [id number] Reported By (test code=BGREPORTEDBY) LUCY GAMBLE GLYCOSALATED [id number] 02:39:00 Test Item Value Reference Range Comments Hemoglobin A1C (test 5.78 % 4.3-6.0 code=GLYCO) Mean Plasma Glucose (test 128 mg/dl 90-180 WHEN TEST RESULTS FOR A1C code=MPG) EXCEED 14.0, THE LINEAR LIMIT OF THE INSTRUMENT, THE CALCULATED RESULT FOR THE MEAN GLUCOSE IS NOT RELIABLE. CORONARY [id number] 02:22:00 Test Item Value Reference Range Comments [...] vLDL (test code=VLDL) 16 mg/dl 30-60 VANCOMYCIN, [id number] 02:19:00 Test Item Value Reference Range Comments Vancomycin, Trough (test 7.7 ug/ml 15.0-20.0 05/13/2009 Change in Therapeutic code=VANCT) Range, for Trough Level, has been implemented per P&T committee. INTERPRETATION GUIDE: CONSIDER SENSITIVITY REPORT IF NGUYEN IS=1 THERAPEUTIC RANGE IS 15-20 ug/ml IF NGUYEN IS > OR=2 CONSIDER ALTERNATE THERAPY [id number] 02:05:00 Test Item Value Reference Range Comments [...] mL/min/1.73m\\S\\2 EGFR if Non- 23 Estimated Glomerular Citizen [place] (test mL/min/1.73m\\S\\2 Filtration Rate (eGFR) code=EGFRNA) Reference Intervals Decision Points for 18 years and older and average body mass: >=60 Does not exclude kidney disease. 30 - 59 Suggests moderate chronic kidney disease and indicates the need for further investigation including assessment of proteinuria and cardiovascular factors. < 30 Usually indicates a need for referral for assessment and management of chronic kidney failure. [id number] 02:05:00 Test Item Value Reference Range Comments Magnesium (test code=MG) 1.9 mg/dl 1.6-2.3 CBC WITH AUTO [id number] 02:03:00 Test Item Value Reference Range Comments [...] code=IG%) 0.9 % 0.0-0.4 AFB CULTURE + [id number] 12:29:00 Test Item Value Reference Range Comments CULTURE (BEAKER) (test No acid-fast bacilli isolated mzrc=7255) in 42 days AFB SMEAR (BEAKER) (test No acid fast bacilli seen nzby=778) AFB CULTURE + [id number] 12:28:00 Test Item Value Reference Range Comments CULTURE (BEAKER) (test No acid-fast bacilli isolated ugfq=4186) in 42 days AFB SMEAR (BEAKER) (test No acid fast bacilli seen pqtz=850) FUNGUS CULTURE + [id number] 17:13:00 Test Item Value Reference Range Comments CULTURE (BEAKER) (test No fungus isolated in 28 days wznv=6301) FUNGUS SMEAR (BEAKER) (test No fungi seen aemu=9258) FUNGUS CULTURE + [id number] 17:13:00 Test Item Value Reference Range Comments CULTURE (BEAKER) (test No fungus isolated in 28 days enix=1616) FUNGUS SMEAR (BEAKER) (test No fungi seen jsdb=4761) FUNGUS CULTURE + [id number] 21:46:00 Test Item Value Reference Range Comments CULTURE (BEAKER) (test No fungus isolated in 28 days ucka=5500) FUNGUS SMEAR (BEAKER) (test No fungi seen rlta=2990) POCT-GLUCOSE [id number] 17:22:00 Test Item Value Reference Range Comments POC-GLUCOSE METER (BEAKER) 169 mg/dL 70-110 TESTED AT [address] (test mjfa=4543) [place] [id number] POCT-GLUCOSE [id number] 12:13:00 Test Item Value Reference Range Comments POC-GLUCOSE METER (BEAKER) 165 mg/dL 70-110 TESTED AT [address] (test iokq=4034) [place] [id number] POCT-GLUCOSE [id number] 07:48:00 Test Item Value Reference Range Comments POC-GLUCOSE METER (BEAKER) 132 mg/dL 70-110 TESTED AT [address] (test etmb=2110) [facility] [address] BASIC METABOLIC [id number] 07:26:00 Test Item Value Reference Range Comments SODIUM (BEAKER) (test 133 meq/L 136-145 jzve=576) POTASSIUM (BEAKER) (test 4.2 meq/L 3.5-5.1 nfwa=264) CHLORIDE (BEAKER) (test 101 meq/L 98-107 zatt=474) CO2 (BEAKER) (test 22 meq/L 22-29 gigg=977) BLOOD UREA NITROGEN 38 mg/dL 7-21 (BEAKER) (test qkah=052) CREATININE (BEAKER) (test 4.01 mg/dL 0.57-1.25 wyzw=665) GLUCOSE RANDOM (BEAKER) 110 mg/dL 70-105 (test hcsp=121) CALCIUM (BEAKER) (test 8.7 mg/dL 8.4-10.2 zrlv=031) EGFR (BEAKER) (test 15 mL/min/1.73 sq m ESTIMATED GFR IS NOT mwqo=0816) ACCURATE CREATININE CLEARANCE IN PREDICTING GLOMERULAR FILTRATION RATE. ESTIMATED GFR IS NOT APPLICABLE FOR DIALYSIS PATIENTS. [id number] 07:25:00 Test Item Value Reference Range Comments PHOSPHORUS (BEAKER) (test kirw=906) 4.4 mg/dL 2.3-4.7 [id number] 07:25:00 Test Item Value Reference Range Comments MAGNESIUM (BEAKER) (test odty=234) 1.9 mg/dL 1.6-2.6 CBC W/PLT COUNT & AUTO [id number] 06:54:00 Test Item Value Reference Range Comments WHITE BLOOD CELL COUNT (BEAKER) (test twuu=036) 12.6 K/ L 4.0-10.0 RED BLOOD CELL COUNT (BEAKER) (test mbtu=354) 2.78 M/ L 4.20-5.80 HEMOGLOBIN (BEAKER) (test wfzh=787) 8.3 GM/DL 13.0-16.8 HEMATOCRIT (BEAKER) (test cmbo=296) 25.1 % 40.0-50.0 MEAN CORPUSCULAR VOLUME (BEAKER) (test hgpy=633) 90.3 fL 82.0-98.0 MEAN CORPUSCULAR HEMOGLOBIN (BEAKER) (test 29.8 pg 27.0-33.0 qmvv=992) MEAN CORPUSCULAR HEMOGLOBIN CONC (BEAKER) (test 33.1 GM/DL 32.0-36.0 scjr=920) RED CELL DISTRIBUTION WIDTH (BEAKER) (test 16.1 % 10.3-14.2 oanx=188) PLATELET COUNT (BEAKER) (test odxn=368) 290 K/CU MM 150-430 MEAN PLATELET VOLUME (BEAKER) (test jwoc=086) 7.2 fL 6.5-10.5 NUCLEATED RED BLOOD CELLS (BEAKER) (test 0 /100 WBC 0-0 beys=076) NEUTROPHILS RELATIVE PERCENT (BEAKER) (test 74 % jtsh=079) LYMPHOCYTES RELATIVE PERCENT (BEAKER) (test 15 % eerv=602) MONOCYTES RELATIVE PERCENT (BEAKER) (test 9 % rgwj=398) EOSINOPHILS RELATIVE PERCENT (BEAKER) (test 2 % epzi=342) BASOPHILS RELATIVE PERCENT (BEAKER) (test 0 % pfjb=606) NEUTROPHILS ABSOLUTE COUNT (BEAKER) (test 9.30 K/ L 1.80-8.00 nbdk=529) LYMPHOCYTES ABSOLUTE COUNT (BEAKER) (test 1.89 K/ L 1.48-4.50 qklm=990) MONOCYTES ABSOLUTE COUNT (BEAKER) (test 1.14 K/ L 0.00-1.30 bvpp=705) EOSINOPHILS ABSOLUTE COUNT (BEAKER) (test 0.26 K/ L 0.00-0.50 acht=585) BASOPHILS ABSOLUTE COUNT (BEAKER) (test 0.05 K/ L 0.00-0.20 emhf=519) 0.00POCT-GLUCOSE [id number] 22:31:00 Test Item Value Reference Range Comments POC-GLUCOSE METER (BEAKER) 133 mg/dL 70-110 TESTED AT [address] (test dfnn=9626) [place] [address] POCT-GLUCOSE [id number] 17:17:00 Test Item Value Reference Range Comments POC-GLUCOSE METER (BEAKER) 119 mg/dL 70-110 TESTED AT [address] (test qpqz=2473) [place] [address] POCT-GLUCOSE [id number] 11:43:00 Test Item Value Reference Range Comments POC-GLUCOSE METER (BEAKER) 175 mg/dL 70-110 TESTED AT [address] (test mhgf=8239) [place] [address] CBC W/PLT COUNT & AUTO [id number] 08:39:00 Test Item Value Reference Range Comments WHITE BLOOD CELL COUNT (BEAKER) (test rtlq=038) 13.4 K/ L 4.0-10.0 RED BLOOD CELL COUNT (BEAKER) (test nahr=771) 2.91 M/ L 4.20-5.80 HEMOGLOBIN (BEAKER) (test bmpn=992) 8.6 GM/DL 13.0-16.8 HEMATOCRIT (BEAKER) (test svax=113) 26.5 % 40.0-50.0 MEAN CORPUSCULAR VOLUME (BEAKER) (test yvyu=805) 91.1 fL 82.0-98.0 MEAN CORPUSCULAR HEMOGLOBIN (BEAKER) (test 29.4 pg 27.0-33.0 wllc=214) MEAN CORPUSCULAR HEMOGLOBIN CONC (BEAKER) (test 32.3 GM/DL 32.0-36.0 chzm=056) RED CELL DISTRIBUTION WIDTH (BEAKER) (test 16.0 % 10.3-14.2 ffjr=829) PLATELET COUNT (BEAKER) (test lmhd=850) 282 K/CU MM 150-430 MEAN PLATELET VOLUME (BEAKER) (test redb=052) 7.7 fL 6.5-10.5 NUCLEATED RED BLOOD CELLS (BEAKER) (test 0 /100 WBC 0-0 bgzb=097) NEUTROPHILS RELATIVE PERCENT (BEAKER) (test 72 % drvv=797) LYMPHOCYTES RELATIVE PERCENT (BEAKER) (test 16 % zhdh=025) MONOCYTES RELATIVE PERCENT (BEAKER) (test 10 % rzgw=448) EOSINOPHILS RELATIVE PERCENT (BEAKER) (test 2 % syvx=336) BASOPHILS RELATIVE PERCENT (BEAKER) (test 1 % vjkl=673) NEUTROPHILS ABSOLUTE COUNT (BEAKER) (test 9.63 K/ L 1.80-8.00 bifb=980) LYMPHOCYTES ABSOLUTE COUNT (BEAKER) (test 2.15 K/ L 1.48-4.50 xhrg=283) MONOCYTES ABSOLUTE COUNT (BEAKER) (test 1.32 K/ L 0.00-1.30 jcor=553) EOSINOPHILS ABSOLUTE COUNT (BEAKER) (test 0.23 K/ L 0.00-0.50 glwc=587) BASOPHILS ABSOLUTE COUNT (BEAKER) (test 0.10 K/ L 0.00-0.20 klor=188) 0.000.730.001.460.000.000.000.000.000.000.000.000.000.000.000.00(MANUAL DIFFERENTIAL)2016-12-24 08:39:00 Test Item Value Reference Range Comments TOTAL COUNTED (BEAKER) (test eiel=7566) POCT-GLUCOSE [id number] 07:47:00 Test Item Value Reference Range Comments POC-GLUCOSE METER (BEAKER) 139 mg/dL 70-110 TESTED AT [address] (test hsod=5837) [facility] [address] BASIC METABOLIC [id number] 06:50:00 Test Item Value Reference Range Comments SODIUM (BEAKER) (test 133 meq/L 136-145 opoh=362) POTASSIUM (BEAKER) (test 4.2 meq/L 3.5-5.1 xjuk=082) CHLORIDE (BEAKER) (test 102 meq/L 98-107 nvov=992) CO2 (BEAKER) (test 21 meq/L 22-29 vrif=214) BLOOD UREA NITROGEN 27 mg/dL 7-21 (BEAKER) (test lhwn=738) CREATININE (BEAKER) (test 3.13 mg/dL 0.57-1.25 cmbl=958) GLUCOSE RANDOM (BEAKER) 100 mg/dL 70-105 (test mpdp=153) CALCIUM (BEAKER) (test 8.8 mg/dL 8.4-10.2 ljgd=637) EGFR (BEAKER) (test 21 mL/min/1.73 sq m ESTIMATED GFR IS NOT iyfc=4156) ACCURATE CREATININE CLEARANCE IN PREDICTING GLOMERULAR FILTRATION RATE. ESTIMATED GFR IS NOT APPLICABLE FOR DIALYSIS PATIENTS. [id number] 06:41:00 Test Item Value Reference Range Comments PHOSPHORUS (BEAKER) (test agdv=832) 2.9 mg/dL 2.3-4.7 [id number] 06:41:00 Test Item Value Reference Range Comments MAGNESIUM (BEAKER) (test bkhe=342) 1.7 mg/dL 1.6-2.6 POCT-GLUCOSE [id number] 21:52:00 Test Item Value Reference Range Comments POC-GLUCOSE METER (BEAKER) 97 mg/dL 70-110 TESTED AT [address] (test ayqz=6909) [facility] [address] POCT-GLUCOSE [id number] 17:28:00 Test Item Value Reference Range Comments POC-GLUCOSE METER (BEAKER) 105 mg/dL 70-110 TESTED AT [address] (test whij=1165) [facility] [address] POCT-GLUCOSE [id number] 12:31:00 Test Item Value Reference Range Comments POC-GLUCOSE METER (BEAKER) 215 mg/dL 70-[address] [facility] [address] [facility] (test pkzp=8735) [facility] [address] POCT-GLUCOSE [id number] 08:19:00 Test Item Value Reference Range Comments POC-GLUCOSE METER (BEAKER) 135 mg/dL 70-[address] [facility] [address] [facility] (test luky=5031) [facility] [address] CBC W/PLT COUNT & AUTO [id number] 07:19:00 Test Item Value Reference Range Comments WHITE BLOOD CELL COUNT (BEAKER) (test lzso=391) 15.0 K/ L 4.0-10.0 RED BLOOD CELL COUNT (BEAKER) (test dczj=891) 3.04 M/ L 4.20-5.80 HEMOGLOBIN (BEAKER) (test eyrr=514) 8.8 GM/DL 13.0-16.8 HEMATOCRIT (BEAKER) (test inmy=028) 27.3 % 40.0-50.0 MEAN CORPUSCULAR VOLUME (BEAKER) (test cmds=778) 89.8 fL 82.0-98.0 MEAN CORPUSCULAR HEMOGLOBIN (BEAKER) (test 29.0 pg 27.0-33.0 xizf=787) MEAN CORPUSCULAR HEMOGLOBIN CONC (BEAKER) (test 32.3 GM/DL 32.0-36.0 hruv=085) RED CELL DISTRIBUTION WIDTH (BEAKER) (test 17.0 % 10.3-14.2 wbak=101) PLATELET COUNT (BEAKER) (test cfrh=806) 285 K/CU MM 150-430 MEAN PLATELET VOLUME (BEAKER) (test llyx=647) 7.2 fL 6.5-10.5 NUCLEATED RED BLOOD CELLS (BEAKER) (test 0 /100 WBC 0-0 zsiu=125) NEUTROPHILS RELATIVE PERCENT (BEAKER) (test 77 % bzyn=806) LYMPHOCYTES RELATIVE PERCENT (BEAKER) (test 11 % wxoz=767) MONOCYTES RELATIVE PERCENT (BEAKER) (test 11 % enis=420) EOSINOPHILS RELATIVE PERCENT (BEAKER) (test 1 % ypgy=730) BASOPHILS RELATIVE PERCENT (BEAKER) (test 0 % hick=554) NEUTROPHILS ABSOLUTE COUNT (BEAKER) (test 11.50 K/ L 1.80-8.00 qjyv=926) LYMPHOCYTES ABSOLUTE COUNT (BEAKER) (test 1.72 K/ L 1.48-4.50 ybol=472) MONOCYTES ABSOLUTE COUNT (BEAKER) (test 1.59 K/ L 0.00-1.30 twti=887) EOSINOPHILS ABSOLUTE COUNT (BEAKER) (test 0.17 K/ L 0.00-0.50 ifso=567) BASOPHILS ABSOLUTE COUNT (BEAKER) (test 0.05 K/ L 0.00-0.20 esle=462) [id number] 06:41:00 Test Item Value Reference Range Comments PHOSPHORUS (BEAKER) (test kanp=691) 2.1 mg/dL 2.3-4.7 [id number] 06:41:00 Test Item Value Reference Range Comments MAGNESIUM (BEAKER) (test zmqv=533) 1.8 mg/dL 1.6-2.6 BASIC METABOLIC [id number] 06:41:00 Test Item Value Reference Range Comments SODIUM (BEAKER) (test 134 meq/L 136-145 yyzi=115) POTASSIUM (BEAKER) (test 4.2 meq/L 3.5-5.1 tdgy=499) CHLORIDE (BEAKER) (test 103 meq/L 98-107 nvim=615) CO2 (BEAKER) (test 23 meq/L 22-29 ztxs=825) BLOOD UREA NITROGEN 18 mg/dL 7-21 (BEAKER) (test njeh=319) CREATININE (BEAKER) (test 2.20 mg/dL 0.57-1.25 ufow=941) GLUCOSE RANDOM (BEAKER) 105 mg/dL 70-105 (test vzgu=393) CALCIUM (BEAKER) (test 8.5 mg/dL 8.4-10.2 baqb=121) EGFR (BEAKER) (test 31 mL/min/1.73 sq m ESTIMATED GFR IS NOT qdxv=0026) ACCURATE CREATININE CLEARANCE IN PREDICTING GLOMERULAR FILTRATION RATE. ESTIMATED GFR IS NOT APPLICABLE FOR DIALYSIS PATIENTS. POCT-GLUCOSE [id number] 21:43:00 Test Item Value Reference Range Comments POC-GLUCOSE METER (BEAKER) 278 mg/dL 70-110 TESTED AT [address] (test ljbe=5786) [place] [id number] POCT-GLUCOSE [id number] 18:42:00 Test Item Value Reference Range Comments POC-GLUCOSE METER (BEAKER) 177 mg/dL 70-110 TESTED AT [place] [id number] [facility] (test poci=8353) [place] [address] POCT-GLUCOSE [id number] 14:53:00 Test Item Value Reference Range Comments POC-GLUCOSE METER (BEAKER) 197 mg/dL 70-110 TESTED AT [address] (test pyml=4079) [place] [id number] CBC W/PLT COUNT & AUTO [id number] 12:20:00 Test Item Value Reference Range Comments WHITE BLOOD CELL COUNT (BEAKER) (test pkyb=689) 13.6 K/ L 4.0-10.0 RED BLOOD CELL COUNT (BEAKER) (test lgpk=673) 2.85 M/ L 4.20-5.80 HEMOGLOBIN (BEAKER) (test wklf=611) 8.3 GM/DL 13.0-16.8 HEMATOCRIT (BEAKER) (test rcjx=039) 25.8 % 40.0-50.0 MEAN CORPUSCULAR VOLUME (BEAKER) (test oqcv=093) 90.6 fL 82.0-98.0 MEAN CORPUSCULAR HEMOGLOBIN (BEAKER) (test 29.3 pg 27.0-33.0 pbkv=921) MEAN CORPUSCULAR HEMOGLOBIN CONC (BEAKER) (test 32.3 GM/DL 32.0-36.0 yica=700) RED CELL DISTRIBUTION WIDTH (BEAKER) (test 16.7 % 10.3-14.2 cfnu=316) PLATELET COUNT (BEAKER) (test vnpz=304) 252 K/CU MM 150-430 MEAN PLATELET VOLUME (BEAKER) (test mlkx=511) 7.4 fL 6.5-10.5 NUCLEATED RED BLOOD CELLS (BEAKER) (test 0 /100 WBC 0-0 wmpj=823) NEUTROPHILS RELATIVE PERCENT (BEAKER) (test 75 % bdyb=631) LYMPHOCYTES RELATIVE PERCENT (BEAKER) (test 13 % dslo=366) MONOCYTES RELATIVE PERCENT (BEAKER) (test 10 % xgns=521) EOSINOPHILS RELATIVE PERCENT (BEAKER) (test 2 % osav=351) BASOPHILS RELATIVE PERCENT (BEAKER) (test 0 % gqjh=714) NEUTROPHILS ABSOLUTE COUNT (BEAKER) (test 10.20 K/ L 1.80-8.00 horw=798) LYMPHOCYTES ABSOLUTE COUNT (BEAKER) (test 1.78 K/ L 1.48-4.50 roju=900) MONOCYTES ABSOLUTE COUNT (BEAKER) (test 1.32 K/ L 0.00-1.30 otsp=137) EOSINOPHILS ABSOLUTE COUNT (BEAKER) (test 0.22 K/ L 0.00-0.50 atfo=681) BASOPHILS ABSOLUTE COUNT (BEAKER) (test 0.06 K/ L 0.00-0.20 rlrp=399) 0.00POCT-GLUCOSE [id number] 08:28:00 Test Item Value Reference Range Comments POC-GLUCOSE METER (BEAKER) 132 mg/dL 70-[address] [facility] [address] [facility] (test afsx=0771) [facility] [address] BASIC METABOLIC [id number] 07:26:00 Test Item Value Reference Range Comments SODIUM (BEAKER) (test 131 meq/L 136-145 seuv=440) POTASSIUM (BEAKER) (test 4.2 meq/L 3.5-5.1 iqtl=987) CHLORIDE (BEAKER) (test 98 meq/L 98-107 khiu=916) CO2 (BEAKER) (test 24 meq/L 22-29 rzrg=641) BLOOD UREA NITROGEN 25 mg/dL 7-21 (BEAKER) (test ixkt=079) CREATININE (BEAKER) (test 3.02 mg/dL 0.57-1.25 qhsy=668) GLUCOSE RANDOM (BEAKER) 103 mg/dL 70-105 (test zpii=306) CALCIUM (BEAKER) (test 8.1 mg/dL 8.4-10.2 erzf=302) EGFR (BEAKER) (test 21 mL/min/1.73 sq m ESTIMATED GFR IS NOT vvct=7339) ACCURATE CREATININE CLEARANCE IN PREDICTING GLOMERULAR FILTRATION RATE. ESTIMATED GFR IS NOT APPLICABLE FOR DIALYSIS PATIENTS. [id number] 07:17:00 Test Item Value Reference Range Comments PHOSPHORUS (BEAKER) (test zzjq=878) 3.1 mg/dL 2.3-4.7 [id number] 07:17:00 Test Item Value Reference Range Comments MAGNESIUM (BEAKER) (test itik=244) 1.8 mg/dL 1.6-2.6 CALCIUM, [id number] 05:38:00 Test Item Value Reference Range Comments CALCIUM IONIZED (BEAKER) (test vsrs=655) 1.09 mmol/L 1.12-1.27 PH, BLOOD (BEAKER) (test xnlh=1802) 7.45 POCT-GLUCOSE [id number] 21:45:00 Test Item Value Reference Range Comments POC-GLUCOSE METER (BEAKER) 121 mg/dL 70-110 TESTED AT [address] (test jjzr=9021) [place] [id number] POCT-GLUCOSE [id number] 16:48:00 Test Item Value Reference Range Comments POC-GLUCOSE METER (BEAKER) 157 mg/dL 70-110 TESTED AT [address] (test glth=9605) [place] [id number] POCT-GLUCOSE [id number] 12:16:00 Test Item Value Reference Range Comments POC-GLUCOSE METER (BEAKER) 247 mg/dL 70-110 TESTED AT [address] (test hbkh=0496) [place] [id number] POCT-GLUCOSE [id number] 08:14:00 Test Item Value Reference Range Comments POC-GLUCOSE METER (BEAKER) 166 mg/dL 70-110 TESTED AT [address] (test jhcj=8317) [place] [id number] BASIC METABOLIC [id number] 07:58:00 Test Item Value Reference Range Comments SODIUM (BEAKER) (test 131 meq/L 136-145 swpg=131) POTASSIUM (BEAKER) (test 3.9 meq/L 3.5-5.1 faas=058) CHLORIDE (BEAKER) (test 99 meq/L 98-107 rnky=662) CO2 (BEAKER) (test 26 meq/L 22-29 fwmm=997) BLOOD UREA NITROGEN 18 mg/dL 7-21 (BEAKER) (test qdis=377) CREATININE (BEAKER) (test 2.32 mg/dL 0.57-1.25 ofvp=617) GLUCOSE RANDOM (BEAKER) 145 mg/dL 70-105 (test ffff=605) CALCIUM (BEAKER) (test 8.1 mg/dL 8.4-10.2 yefg=316) EGFR (BEAKER) (test 29 mL/min/1.73 sq m ESTIMATED GFR IS NOT bdyl=7241) ACCURATE CREATININE CLEARANCE IN PREDICTING GLOMERULAR FILTRATION RATE. ESTIMATED GFR IS NOT APPLICABLE FOR DIALYSIS PATIENTS. CBC W/PLT COUNT & AUTO [id number] 07:50:00 Test Item Value Reference Range Comments WHITE BLOOD CELL COUNT (BEAKER) (test mqnd=603) 15.3 K/ L 4.0-10.0 RED BLOOD CELL COUNT (BEAKER) (test slwg=220) 3.00 M/ L 4.20-5.80 HEMOGLOBIN (BEAKER) (test prbw=139) 8.4 GM/DL 13.0-16.8 HEMATOCRIT (BEAKER) (test veyz=036) 27.3 % 40.0-50.0 MEAN CORPUSCULAR VOLUME (BEAKER) (test soin=992) 90.9 fL 82.0-98.0 MEAN CORPUSCULAR HEMOGLOBIN (BEAKER) (test 28.0 pg 27.0-33.0 mfjp=746) MEAN CORPUSCULAR HEMOGLOBIN CONC (BEAKER) (test 30.8 GM/DL 32.0-36.0 jpuc=594) RED CELL DISTRIBUTION WIDTH (BEAKER) (test 15.9 % 10.3-14.2 injk=711) PLATELET COUNT (BEAKER) (test uzbc=991) 271 K/CU MM 150-430 MEAN PLATELET VOLUME (BEAKER) (test hmex=822) 7.4 fL 6.5-10.5 NUCLEATED RED BLOOD CELLS (BEAKER) (test 0 /100 WBC 0-0 bjna=476) NEUTROPHILS RELATIVE PERCENT (BEAKER) (test 76 % leeb=023) LYMPHOCYTES RELATIVE PERCENT (BEAKER) (test 14 % tpxt=667) MONOCYTES RELATIVE PERCENT (BEAKER) (test 9 % jmay=364) EOSINOPHILS RELATIVE PERCENT (BEAKER) (test 1 % hufo=794) BASOPHILS RELATIVE PERCENT (BEAKER) (test 0 % wico=583) NEUTROPHILS ABSOLUTE COUNT (BEAKER) (test 11.60 K/ L 1.80-8.00 hbjo=651) LYMPHOCYTES ABSOLUTE COUNT (BEAKER) (test 2.11 K/ L 1.48-4.50 sgdb=045) MONOCYTES ABSOLUTE COUNT (BEAKER) (test 1.36 K/ L 0.00-1.30 shvn=565) EOSINOPHILS ABSOLUTE COUNT (BEAKER) (test 0.17 K/ L 0.00-0.50 smqd=280) BASOPHILS ABSOLUTE COUNT (BEAKER) (test 0.06 K/ L 0.00-0.20 pryj=675) [id number] 07:24:00 Test Item Value Reference Range Comments PHOSPHORUS (BEAKER) (test kjfd=630) 2.1 mg/dL 2.3-4.7 [id number] 07:24:00 Test Item Value Reference Range Comments MAGNESIUM (BEAKER) (test jdca=164) 1.6 mg/dL 1.6-2.6 POCT-GLUCOSE [id number] 20:38:00 Test Item Value Reference Range Comments POC-GLUCOSE METER (BEAKER) 191 mg/dL 70-110 TESTED AT [address] (test hlnj=1314) [place] [id number] POCT-GLUCOSE [id number] 17:32:00 Test Item Value Reference Range Comments POC-GLUCOSE METER (BEAKER) 229 mg/dL 70-110 TESTED AT [address] (test zfja=0406) [place] [address] VANCOMYCIN LEVEL, [id number] 16:51:00 Test Item Value Reference Range Comments VANCOMYCIN TROUGH (BEAKER) (test mzfa=380) 17.2 ug/mL 10.0-20.0 At end of dialysis on 12/20/16POCT-GLUCOSE [id number] 11:49:00 Test Item Value Reference Range Comments POC-GLUCOSE METER (BEAKER) 97 mg/dL 70-110 TESTED AT [address] (test dgor=9774) [place] [id number] POCT-GLUCOSE [id number] 07:38:00 Test Item Value Reference Range Comments POC-GLUCOSE METER (BEAKER) 151 mg/dL 70-110 TESTED AT [address] (test izis=6168) [place] [id number] BASIC METABOLIC [id number] 06:39:00 Test Item Value Reference Range Comments SODIUM (BEAKER) (test 134 meq/L 136-145 krwp=033) POTASSIUM (BEAKER) (test 3.9 meq/L 3.5-5.1 heul=395) CHLORIDE (BEAKER) (test 102 meq/L 98-107 wdis=799) CO2 (BEAKER) (test 24 meq/L 22-29 dyjo=543) BLOOD UREA NITROGEN 23 mg/dL 7-21 (BEAKER) (test wxsg=684) CREATININE (BEAKER) (test 2.91 mg/dL 0.57-1.25 lued=957) GLUCOSE RANDOM (BEAKER) 99 mg/dL 70-105 (test wift=078) CALCIUM (BEAKER) (test 8.2 mg/dL 8.4-10.2 mdrv=628) EGFR (BEAKER) (test 22 mL/min/1.73 sq m ESTIMATED GFR IS NOT vmsd=3348) ACCURATE CREATININE CLEARANCE IN PREDICTING GLOMERULAR FILTRATION RATE. ESTIMATED GFR IS NOT APPLICABLE FOR DIALYSIS PATIENTS. [id number] 06:37:00 Test Item Value Reference Range Comments PHOSPHORUS (BEAKER) (test ftph=714) 2.9 mg/dL 2.3-4.7 [id number] 06:37:00 Test Item Value Reference Range Comments MAGNESIUM (BEAKER) (test qicb=078) 1.6 mg/dL 1.6-2.6 CBC W/PLT COUNT & AUTO [id number] 06:36:00 Test Item Value Reference Range Comments WHITE BLOOD CELL COUNT (BEAKER) (test pdch=114) 14.1 K/ L 4.0-10.0 RED BLOOD CELL COUNT (BEAKER) (test wpfy=665) 3.01 M/ L 4.20-5.80 HEMOGLOBIN (BEAKER) (test dbjb=066) 8.7 GM/DL 13.0-16.8 HEMATOCRIT (BEAKER) (test eceu=867) 26.8 % 40.0-50.0 MEAN CORPUSCULAR VOLUME (BEAKER) (test mbvt=285) 88.9 fL 82.0-98.0 MEAN CORPUSCULAR HEMOGLOBIN (BEAKER) (test 28.8 pg 27.0-33.0 yque=546) MEAN CORPUSCULAR HEMOGLOBIN CONC (BEAKER) (test 32.5 GM/DL 32.0-36.0 baxb=418) RED CELL DISTRIBUTION WIDTH (BEAKER) (test 16.3 % 10.3-14.2 rknu=590) PLATELET COUNT (BEAKER) (test tjvy=569) 242 K/CU MM 150-430 MEAN PLATELET VOLUME (BEAKER) (test ilgd=244) 6.9 fL 6.5-10.5 NUCLEATED RED BLOOD CELLS (BEAKER) (test 0 /100 WBC 0-0 foop=277) NEUTROPHILS RELATIVE PERCENT (BEAKER) (test 73 % lakn=248) LYMPHOCYTES RELATIVE PERCENT (BEAKER) (test 15 % iost=833) MONOCYTES RELATIVE PERCENT (BEAKER) (test 9 % gvdz=478) EOSINOPHILS RELATIVE PERCENT (BEAKER) (test 2 % bqrd=789) BASOPHILS RELATIVE PERCENT (BEAKER) (test 0 % eynr=913) NEUTROPHILS ABSOLUTE COUNT (BEAKER) (test 10.30 K/ L 1.80-8.00 coth=068) LYMPHOCYTES ABSOLUTE COUNT (BEAKER) (test 2.14 K/ L 1.48-4.50 alti=010) MONOCYTES ABSOLUTE COUNT (BEAKER) (test 1.33 K/ L 0.00-1.30 qtfo=661) EOSINOPHILS ABSOLUTE COUNT (BEAKER) (test 0.29 K/ L 0.00-0.50 ycjb=974) BASOPHILS ABSOLUTE COUNT (BEAKER) (test 0.06 K/ L 0.00-0.20 jlli=760) 0.00CALCIUM, [id number] 06:24:00 Test Item Value Reference Range Comments CALCIUM IONIZED (BEAKER) (test bcfs=266) 1.08 mmol/L 1.12-1.27 PH, BLOOD (BEAKER) (test lvyg=6795) 7.46 POCT-GLUCOSE [id number] 22:24:00 Test Item Value Reference Range Comments POC-GLUCOSE METER (BEAKER) 166 mg/dL 70-110 TESTED AT [address] (test vquj=9983) [facility] [address] POCT-GLUCOSE [id number] 16:17:00 Test Item Value Reference Range Comments POC-GLUCOSE METER (BEAKER) 132 mg/dL 70-110 TESTED AT [address] (test ivlq=8683) [facility] [address] POCT-GLUCOSE [id number] 12:16:00 Test Item Value Reference Range Comments POC-GLUCOSE METER (BEAKER) 90 mg/dL 70-110 TESTED AT [address] (test kemd=1773) [facility] [address] POCT-GLUCOSE [id number] 08:13:00 Test Item Value Reference Range Comments POC-GLUCOSE METER (BEAKER) 111 mg/dL 70-[address] [facility] [address] [facility] (test pnnv=9362) [facility] [address] CBC W/PLT COUNT & AUTO [id number] 07:40:00 Test Item Value Reference Range Comments WHITE BLOOD CELL COUNT (BEAKER) (test asof=363) 11.9 K/ L 4.0-10.0 RED BLOOD CELL COUNT (BEAKER) (test judw=097) 3.11 M/ L 4.20-5.80 HEMOGLOBIN (BEAKER) (test xfzk=829) 8.9 GM/DL 13.0-16.8 HEMATOCRIT (BEAKER) (test dezp=532) 28.0 % 40.0-50.0 MEAN CORPUSCULAR VOLUME (BEAKER) (test educ=013) 90.3 fL 82.0-98.0 MEAN CORPUSCULAR HEMOGLOBIN (BEAKER) (test 28.7 pg 27.0-33.0 kiaz=135) MEAN CORPUSCULAR HEMOGLOBIN CONC (BEAKER) (test 31.8 GM/DL 32.0-36.0 tqgy=296) RED CELL DISTRIBUTION WIDTH (BEAKER) (test 15.5 % 10.3-14.2 mkvh=516) PLATELET COUNT (BEAKER) (test sycp=001) 252 K/CU MM 150-430 MEAN PLATELET VOLUME (BEAKER) (test obsx=112) 7.1 fL 6.5-10.5 NUCLEATED RED BLOOD CELLS (BEAKER) (test 0 /100 WBC 0-0 iumz=601) NEUTROPHILS RELATIVE PERCENT (BEAKER) (test 69 % cbpy=883) LYMPHOCYTES RELATIVE PERCENT (BEAKER) (test 18 % gmmh=317) MONOCYTES RELATIVE PERCENT (BEAKER) (test 11 % nvev=186) EOSINOPHILS RELATIVE PERCENT (BEAKER) (test 2 % trev=039) BASOPHILS RELATIVE PERCENT (BEAKER) (test 0 % foiz=685) NEUTROPHILS ABSOLUTE COUNT (BEAKER) (test 8.27 K/ L 1.80-8.00 bwiu=891) LYMPHOCYTES ABSOLUTE COUNT (BEAKER) (test 2.09 K/ L 1.48-4.50 udck=490) MONOCYTES ABSOLUTE COUNT (BEAKER) (test 1.35 K/ L 0.00-1.30 bspl=361) EOSINOPHILS ABSOLUTE COUNT (BEAKER) (test 0.19 K/ L 0.00-0.50 nlcp=057) BASOPHILS ABSOLUTE COUNT (BEAKER) (test 0.04 K/ L 0.00-0.20 wutv=033) [id number] 07:29:00 Test Item Value Reference Range Comments PHOSPHORUS (BEAKER) (test awro=947) 1.8 mg/dL 2.3-4.7 [id number] 07:29:00 Test Item Value Reference Range Comments MAGNESIUM (BEAKER) (test wald=779) 1.6 mg/dL 1.6-2.6 BASIC METABOLIC [id number] 07:29:00 Test Item Value Reference Range Comments SODIUM (BEAKER) (test 135 meq/L 136-145 fnkc=565) POTASSIUM (BEAKER) (test 3.7 meq/L 3.5-5.1 czdi=167) CHLORIDE (BEAKER) (test 104 meq/L 98-107 nskb=851) CO2 (BEAKER) (test 24 meq/L 22-29 ejnr=744) BLOOD UREA NITROGEN 12 mg/dL 7-21 (BEAKER) (test osth=016) CREATININE (BEAKER) (test 2.00 mg/dL 0.57-1.25 binl=158) GLUCOSE RANDOM (BEAKER) 81 mg/dL 70-105 (test invv=523) CALCIUM (BEAKER) (test 8.2 mg/dL 8.4-10.2 hnhl=685) EGFR (BEAKER) (test 34 mL/min/1.73 sq m ESTIMATED GFR IS NOT uyvd=3601) ACCURATE CREATININE CLEARANCE IN PREDICTING GLOMERULAR FILTRATION RATE. ESTIMATED GFR IS NOT APPLICABLE FOR DIALYSIS PATIENTS. POCT-GLUCOSE [id number] 21:13:00 Test Item Value Reference Range Comments POC-GLUCOSE METER (BEAKER) 107 mg/dL 70-110 TESTED AT [address] (test xogd=4605) [facility] [address] POCT-GLUCOSE [id number] 17:33:00 Test Item Value Reference Range Comments POC-GLUCOSE METER (BEAKER) 131 mg/dL 70-110 TESTED AT [address] (test cian=1491) [facility] [address] POCT-GLUCOSE [id number] 13:05:00 Test Item Value Reference Range Comments POC-GLUCOSE METER (BEAKER) 188 mg/dL 70-110 TESTED AT [place] [id number] [facility] (test laxe=9793) [facility] [address] POCT-GLUCOSE [id number] 09:01:00 Test Item Value Reference Range Comments POC-GLUCOSE METER (BEAKER) 103 mg/dL 70-110 TESTED AT [address] (test binv=0805) [facility] [address] CBC W/PLT COUNT & AUTO [id number] 07:08:00 Test Item Value Reference Range Comments WHITE BLOOD CELL COUNT (BEAKER) (test pihy=118) 12.7 K/ L 4.0-10.0 RED BLOOD CELL COUNT (BEAKER) (test efvh=875) 3.09 M/ L 4.20-5.80 HEMOGLOBIN (BEAKER) (test zuxg=384) 9.0 GM/DL 13.0-16.8 HEMATOCRIT (BEAKER) (test icos=278) 27.4 % 40.0-50.0 MEAN CORPUSCULAR VOLUME (BEAKER) (test bhgg=038) 88.8 fL 82.0-98.0 MEAN CORPUSCULAR HEMOGLOBIN (BEAKER) (test 29.0 pg 27.0-33.0 kjpi=971) MEAN CORPUSCULAR HEMOGLOBIN CONC (BEAKER) (test 32.7 GM/DL 32.0-36.0 hanv=534) RED CELL DISTRIBUTION WIDTH (BEAKER) (test 15.7 % 10.3-14.2 taaa=112) PLATELET COUNT (BEAKER) (test lmfn=536) 257 K/CU MM 150-430 MEAN PLATELET VOLUME (BEAKER) (test mgrv=713) 7.0 fL 6.5-10.5 NUCLEATED RED BLOOD CELLS (BEAKER) (test 0 /100 WBC 0-0 ewua=405) NEUTROPHILS RELATIVE PERCENT (BEAKER) (test 74 % rnid=488) LYMPHOCYTES RELATIVE PERCENT (BEAKER) (test 14 % rxhs=859) MONOCYTES RELATIVE PERCENT (BEAKER) (test 9 % iuvv=528) EOSINOPHILS RELATIVE PERCENT (BEAKER) (test 2 % eorx=690) BASOPHILS RELATIVE PERCENT (BEAKER) (test 0 % ivuq=845) NEUTROPHILS ABSOLUTE COUNT (BEAKER) (test 9.38 K/ L 1.80-8.00 dtel=330) LYMPHOCYTES ABSOLUTE COUNT (BEAKER) (test 1.80 K/ L 1.48-4.50 dyes=868) MONOCYTES ABSOLUTE COUNT (BEAKER) (test 1.20 K/ L 0.00-1.30 vndy=935) EOSINOPHILS ABSOLUTE COUNT (BEAKER) (test 0.24 K/ L 0.00-0.50 oxxn=925) BASOPHILS ABSOLUTE COUNT (BEAKER) (test 0.05 K/ L 0.00-0.20 ihcn=799) [id number] 06:17:00 Test Item Value Reference Range Comments PHOSPHORUS (BEAKER) (test aulq=497) 2.4 mg/dL 2.3-4.7 [id number] 06:17:00 Test Item Value Reference Range Comments MAGNESIUM (BEAKER) (test jacj=262) 1.5 mg/dL 1.6-2.6 BASIC METABOLIC [id number] 06:17:00 Test Item Value Reference Range Comments SODIUM (BEAKER) (test 135 meq/L 136-145 qkbf=312) POTASSIUM (BEAKER) (test 3.7 meq/L 3.5-5.1 cfvf=718) CHLORIDE (BEAKER) (test 104 meq/L 98-107 dror=966) CO2 (BEAKER) (test 23 meq/L 22-29 vyte=823) BLOOD UREA NITROGEN 24 mg/dL 7-21 (BEAKER) (test uoto=547) CREATININE (BEAKER) (test 2.70 mg/dL 0.57-1.25 yyxi=992) GLUCOSE RANDOM (BEAKER) 93 mg/dL 70-105 (test kvma=632) CALCIUM (BEAKER) (test 8.4 mg/dL 8.4-10.2 ceeg=724) EGFR (BEAKER) (test 24 mL/min/1.73 sq m ESTIMATED GFR IS NOT ovya=6571) ACCURATE CREATININE CLEARANCE IN PREDICTING GLOMERULAR FILTRATION RATE. ESTIMATED GFR IS NOT APPLICABLE FOR DIALYSIS PATIENTS. POCT-GLUCOSE [id number] 23:43:00 Test Item Value Reference Range Comments POC-GLUCOSE METER (BEAKER) 100 mg/dL 70-110 TESTED AT [address] (test dbnq=3888) [place] [id number] POCT-GLUCOSE [id number] 17:44:00 Test Item Value Reference Range Comments POC-GLUCOSE METER (BEAKER) 208 mg/dL 70-110 TESTED AT [address] (test labx=1481) [place] [address] ANAEROBIC [id number] 14:43:00 Test Item Value Reference Range Comments CULTURE (BEAKER) (test jwfm=8825) No anaerobes isolated ANAEROBIC [id number] 14:42:00 Test Item Value Reference Range Comments CULTURE (BEAKER) (test zjow=4828) No anaerobes isolated POCT-GLUCOSE [id number] 12:02:00 Test Item Value Reference Range Comments POC-GLUCOSE METER (BEAKER) 208 mg/dL 70-110 TESTED AT [address] (test zvcj=1461) [place] [address] POCT-GLUCOSE [id number] 09:52:00 Test Item Value Reference Range Comments POC-GLUCOSE METER (BEAKER) 86 mg/dL 70-110 TESTED AT [address] (test rrdp=0428) [place] [address] CBC W/PLT COUNT & AUTO [id number] 07:11:00 Test Item Value Reference Range Comments WHITE BLOOD CELL COUNT (BEAKER) (test ajdg=896) 11.1 K/ L 4.0-10.0 RED BLOOD CELL COUNT (BEAKER) (test dqeq=914) 3.26 M/ L 4.20-5.80 HEMOGLOBIN (BEAKER) (test bmmr=028) 9.6 GM/DL 13.0-16.8 HEMATOCRIT (BEAKER) (test lejp=247) 29.4 % 40.0-50.0 MEAN CORPUSCULAR VOLUME (BEAKER) (test crkj=264) 90.2 fL 82.0-98.0 MEAN CORPUSCULAR HEMOGLOBIN (BEAKER) (test 29.5 pg 27.0-33.0 xfyg=492) MEAN CORPUSCULAR HEMOGLOBIN CONC (BEAKER) (test 32.7 GM/DL 32.0-36.0 hwcp=853) RED CELL DISTRIBUTION WIDTH (BEAKER) (test 14.7 % 10.3-14.2 zdsm=287) PLATELET COUNT (BEAKER) (test brnb=808) 280 K/CU MM 150-430 MEAN PLATELET VOLUME (BEAKER) (test jvdb=757) 6.8 fL 6.5-10.5 NUCLEATED RED BLOOD CELLS (BEAKER) (test 0 /100 WBC 0-0 arho=794) NEUTROPHILS RELATIVE PERCENT (BEAKER) (test 73 % tvbl=726) LYMPHOCYTES RELATIVE PERCENT (BEAKER) (test 15 % rfbm=677) MONOCYTES RELATIVE PERCENT (BEAKER) (test 10 % ejvg=490) EOSINOPHILS RELATIVE PERCENT (BEAKER) (test 2 % vpks=026) BASOPHILS RELATIVE PERCENT (BEAKER) (test 0 % zkhc=655) NEUTROPHILS ABSOLUTE COUNT (BEAKER) (test 8.08 K/ L 1.80-8.00 pvam=510) LYMPHOCYTES ABSOLUTE COUNT (BEAKER) (test 1.66 K/ L 1.48-4.50 okta=654) MONOCYTES ABSOLUTE COUNT (BEAKER) (test 1.06 K/ L 0.00-1.30 gnvs=974) EOSINOPHILS ABSOLUTE COUNT (BEAKER) (test 0.26 K/ L 0.00-0.50 gyte=215) BASOPHILS ABSOLUTE COUNT (BEAKER) (test 0.05 K/ L 0.00-0.20 rtun=169) [id number] 06:02:00 Test Item Value Reference Range Comments PHOSPHORUS (BEAKER) (test iycp=514) 1.7 mg/dL 2.3-4.7 [id number] 06:02:00 Test Item Value Reference Range Comments MAGNESIUM (BEAKER) (test aref=706) 1.5 mg/dL 1.6-2.6 BASIC METABOLIC [id number] 06:02:00 Test Item Value Reference Range Comments SODIUM (BEAKER) (test 136 meq/L 136-145 gvec=976) POTASSIUM (BEAKER) (test 3.9 meq/L 3.5-5.1 putm=759) CHLORIDE (BEAKER) (test 103 meq/L 98-107 ccld=448) CO2 (BEAKER) (test 25 meq/L 22-29 xsbh=473) BLOOD UREA NITROGEN 13 mg/dL 7-21 (BEAKER) (test bmvi=362) CREATININE (BEAKER) (test 1.67 mg/dL 0.57-1.25 bdct=600) GLUCOSE RANDOM (BEAKER) 74 mg/dL 70-105 (test btpn=770) CALCIUM (BEAKER) (test 8.7 mg/dL 8.4-10.2 fqal=515) EGFR (BEAKER) (test 42 mL/min/1.73 sq m ESTIMATED GFR IS NOT whjy=8735) ACCURATE CREATININE CLEARANCE IN PREDICTING GLOMERULAR FILTRATION RATE. ESTIMATED GFR IS NOT APPLICABLE FOR DIALYSIS PATIENTS. POCT-GLUCOSE [id number] 21:46:00 Test Item Value Reference Range Comments POC-GLUCOSE METER (BEAKER) 83 mg/dL 70-110 TESTED AT [address] (test ilxz=0737) [place] [id number] POCT-GLUCOSE [id number] 17:45:00 Test Item Value Reference Range Comments POC-GLUCOSE METER (BEAKER) 83 mg/dL 70-110 TESTED AT [address] (test qdhd=4126) [place] [id number] POCT-GLUCOSE [id number] 11:03:00 Test Item Value Reference Range Comments POC-GLUCOSE METER (BEAKER) 152 mg/dL 70-110 TESTED AT [address] (test ybgw=8647) [facility] [address] CBC W/PLT COUNT & AUTO [id number] 08:54:00 Test Item Value Reference Range Comments WHITE BLOOD CELL COUNT (BEAKER) (test eiuv=560) 14.2 K/ L 4.0-10.0 RED BLOOD CELL COUNT (BEAKER) (test cbyc=640) 2.99 M/ L 4.20-5.80 HEMOGLOBIN (BEAKER) (test hpoy=637) 8.6 GM/DL 13.0-16.8 HEMATOCRIT (BEAKER) (test phlv=498) 27.1 % 40.0-50.0 MEAN CORPUSCULAR VOLUME (BEAKER) (test wtqr=688) 90.6 fL 82.0-98.0 MEAN CORPUSCULAR HEMOGLOBIN (BEAKER) (test 28.6 pg 27.0-33.0 orbv=690) MEAN CORPUSCULAR HEMOGLOBIN CONC (BEAKER) (test 31.6 GM/DL 32.0-36.0 smbb=299) RED CELL DISTRIBUTION WIDTH (BEAKER) (test 14.6 % 10.3-14.2 hxey=706) PLATELET COUNT (BEAKER) (test hehg=613) 285 K/CU MM 150-430 MEAN PLATELET VOLUME (BEAKER) (test spzx=148) 7.1 fL 6.5-10.5 NUCLEATED RED BLOOD CELLS (BEAKER) (test 0 /100 WBC 0-0 ijdy=819) NEUTROPHILS RELATIVE PERCENT (BEAKER) (test 79 % tfrh=953) LYMPHOCYTES RELATIVE PERCENT (BEAKER) (test 10 % vmvg=692) MONOCYTES RELATIVE PERCENT (BEAKER) (test 9 % jtte=493) EOSINOPHILS RELATIVE PERCENT (BEAKER) (test 2 % bobj=941) BASOPHILS RELATIVE PERCENT (BEAKER) (test 0 % skuf=195) NEUTROPHILS ABSOLUTE COUNT (BEAKER) (test 11.20 K/ L 1.80-8.00 ixfm=642) LYMPHOCYTES ABSOLUTE COUNT (BEAKER) (test 1.40 K/ L 1.48-4.50 ggqv=571) MONOCYTES ABSOLUTE COUNT (BEAKER) (test 1.30 K/ L 0.00-1.30 zyoq=686) EOSINOPHILS ABSOLUTE COUNT (BEAKER) (test 0.27 K/ L 0.00-0.50 jqua=096) BASOPHILS ABSOLUTE COUNT (BEAKER) (test 0.04 K/ L 0.00-0.20 bosu=025) 0.00BASIC METABOLIC [id number] 08:46:00 Test Item Value Reference Range Comments SODIUM (BEAKER) (test 138 meq/L 136-145 deni=244) POTASSIUM (BEAKER) (test 3.8 meq/L 3.5-5.1 ktun=383) CHLORIDE (BEAKER) (test 103 meq/L 98-107 fyto=811) CO2 (BEAKER) (test 25 meq/L 22-29 epla=351) BLOOD UREA NITROGEN 29 mg/dL 7-21 (BEAKER) (test pclj=614) CREATININE (BEAKER) (test 2.68 mg/dL 0.57-1.25 wklw=359) GLUCOSE RANDOM (BEAKER) 91 mg/dL 70-105 (test jsxy=792) CALCIUM (BEAKER) (test 7.9 mg/dL 8.4-10.2 tvvj=284) EGFR (BEAKER) (test 25 mL/min/1.73 sq m ESTIMATED GFR IS NOT oilu=9804) ACCURATE CREATININE CLEARANCE IN PREDICTING GLOMERULAR FILTRATION RATE. ESTIMATED GFR IS NOT APPLICABLE FOR DIALYSIS PATIENTS. VANCOMYCIN LEVEL, [id number] 07:53:00 Test Item Value Reference Range Comments VANCOMYCIN RANDOM (BEAKER) (test nfvi=601) 15.1 ug/mL Reference Range: No NormalsPOCT-GLUCOSE [id number] 07:52:00 Test Item Value Reference Range Comments POC-GLUCOSE METER (BEAKER) 126 mg/dL 70-110 TESTED AT [address] (test efvr=9850) [place] [address] [id number] 07:50:00 Test Item Value Reference Range Comments PHOSPHORUS (BEAKER) (test rwbj=001) 2.1 mg/dL 2.3-4.7 [id number] 07:50:00 Test Item Value Reference Range Comments MAGNESIUM (BEAKER) (test xcvs=188) 1.7 mg/dL 1.6-2.6 POCT-GLUCOSE [id number] 21:08:00 Test Item Value Reference Range Comments POC-GLUCOSE METER (BEAKER) 234 mg/dL 70-110 TESTED AT [address] (test iljr=6847) [place] [address] POCT-GLUCOSE [id number] 17:02:00 Test Item Value Reference Range Comments POC-GLUCOSE METER (BEAKER) 230 mg/dL 70-110 TESTED AT [address] (test zzxl=3419) [place] [address] SURGICALLY OBTAINED CULTURE + GRAM [id number] 09:26:00 Test Item Value Reference Range Comments CULTURE (BEAKER) (test <1+ Same organism has been uodi=0429) isolated from cultures(s) of the same body site and collection date. Repeat identification and susceptibility testing performed only after consultation with the clinical microbiology laboratory.Refer to previous culture ofMethicillin resistant Staphylococcus aureus GRAM STAIN RESULT <1+ WBCs (BEAKER) (test njvn=3664) GRAM STAIN RESULT No organisms seen (BEAKER) (test wcvu=023861) SURGICALLY OBTAINED CULTURE + GRAM [id number] 09:25:00 Test Item Value Reference Range Comments CULTURE (BEAKER) (test METHICILLIN RESISTANT <1+ Methicillin ruvt=0854) STAPHYLOCOCCUS AUREUS resistant Staphylococcus aureus Clindamycin (test code=10) Erythromycin (test code=4) Linezolid (test code=40) Oxacillin (test code=14) Rifampin (test code=43) Tetracycline (test code=2) Trimethoprim + Sulfamethoxazole (test code=47) Vancomycin (test code=13) CULTURE (BEAKER) (test METHICILLIN RESISTANT <1+ Methicillin fwrp=07400) STAPHYLOCOCCUS AUREUS resistant Staphylococcus aureusof a second type Clindamycin (test code=10) Erythromycin (test code=4) Linezolid (test code=40) Oxacillin (test code=14) Rifampin (test code=43) Tetracycline (test code=2) Trimethoprim + Sulfamethoxazole (test code=47) Vancomycin (test code=13) GRAM STAIN RESULT No White blood cells (BEAKER) (test yxwb=9896) seen GRAM STAIN RESULT No organisms seen (BEAKER) (test hskc=054383) POCT-GLUCOSE [id number] 08:39:00 Test Item Value Reference Range Comments POC-GLUCOSE METER (BEAKER) 129 mg/dL 70-110 TESTED AT [address] (test mywh=0444) [facility] [address] CBC W/PLT COUNT & AUTO [id number] 06:51:00 Test Item Value Reference Range Comments WHITE BLOOD CELL COUNT (BEAKER) (test ogpi=320) 17.4 K/ L 4.0-10.0 RED BLOOD CELL COUNT (BEAKER) (test ifzi=629) 2.99 M/ L 4.20-5.80 HEMOGLOBIN (BEAKER) (test wvax=056) 8.9 GM/DL 13.0-16.8 HEMATOCRIT (BEAKER) (test slal=911) 27.1 % 40.0-50.0 MEAN CORPUSCULAR VOLUME (BEAKER) (test aawu=508) 90.6 fL 82.0-98.0 MEAN CORPUSCULAR HEMOGLOBIN (BEAKER) (test 29.6 pg 27.0-33.0 psbm=490) MEAN CORPUSCULAR HEMOGLOBIN CONC (BEAKER) (test 32.7 GM/DL 32.0-36.0 wzmv=437) RED CELL DISTRIBUTION WIDTH (BEAKER) (test 15.3 % 10.3-14.2 kswu=781) PLATELET COUNT (BEAKER) (test kzyn=090) 246 K/CU MM 150-430 MEAN PLATELET VOLUME (BEAKER) (test ijnf=218) 6.7 fL 6.5-10.5 NUCLEATED RED BLOOD CELLS (BEAKER) (test 0 /100 WBC 0-0 annh=457) NEUTROPHILS RELATIVE PERCENT (BEAKER) (test 83 % kpvc=031) LYMPHOCYTES RELATIVE PERCENT (BEAKER) (test 7 % arrx=486) MONOCYTES RELATIVE PERCENT (BEAKER) (test 9 % brwh=098) EOSINOPHILS RELATIVE PERCENT (BEAKER) (test 1 % csns=962) BASOPHILS RELATIVE PERCENT (BEAKER) (test 0 % nnlj=387) NEUTROPHILS ABSOLUTE COUNT (BEAKER) (test 14.50 K/ L 1.80-8.00 zruf=820) LYMPHOCYTES ABSOLUTE COUNT (BEAKER) (test 1.19 K/ L 1.48-4.50 apug=187) MONOCYTES ABSOLUTE COUNT (BEAKER) (test 1.56 K/ L 0.00-1.30 tktb=261) EOSINOPHILS ABSOLUTE COUNT (BEAKER) (test 0.13 K/ L 0.00-0.50 krrv=990) BASOPHILS ABSOLUTE COUNT (BEAKER) (test 0.03 K/ L 0.00-0.20 zdwm=883) 0.00BASIC METABOLIC [id number] 05:44:00 Test Item Value Reference Range Comments SODIUM (BEAKER) (test 139 meq/L 136-145 xznj=173) POTASSIUM (BEAKER) (test 3.7 meq/L 3.5-5.1 aazs=193) CHLORIDE (BEAKER) (test 104 meq/L 98-107 eick=639) CO2 (BEAKER) (test 26 meq/L 22-29 ehti=121) BLOOD UREA NITROGEN 19 mg/dL 7-21 (BEAKER) (test fklk=975) CREATININE (BEAKER) (test 2.08 mg/dL 0.57-1.25 diom=223) GLUCOSE RANDOM (BEAKER) 127 mg/dL 70-105 (test ccvp=728) CALCIUM (BEAKER) (test 7.9 mg/dL 8.4-10.2 ffjv=122) EGFR (BEAKER) (test 33 mL/min/1.73 sq m ESTIMATED GFR IS NOT xiel=0498) ACCURATE CREATININE CLEARANCE IN PREDICTING GLOMERULAR FILTRATION RATE. ESTIMATED GFR IS NOT APPLICABLE FOR DIALYSIS PATIENTS. [id number] 05:42:00 Test Item Value Reference Range Comments PHOSPHORUS (BEAKER) (test sxwg=857) 2.3 mg/dL 2.3-4.7 [id number] 05:42:00 Test Item Value Reference Range Comments MAGNESIUM (BEAKER) (test luey=066) 1.7 mg/dL 1.6-2.6 CALCIUM, [id number] 05:21:00 Test Item Value Reference Range Comments CALCIUM IONIZED (BEAKER) (test wmrx=324) 0.99 mmol/L 1.12-1.27 PH, BLOOD (BEAKER) (test aeia=6320) 7.44 POCT-GLUCOSE [id number] 21:08:00 Test Item Value Reference Range Comments POC-GLUCOSE METER (BEAKER) 184 mg/dL 70-110 TESTED AT [address] (test oinq=6375) [place] [id number] POCT-GLUCOSE [id number] 18:10:00 Test Item Value Reference Range Comments POC-GLUCOSE METER (BEAKER) 214 mg/dL 70-110 TESTED AT [address] (test erum=0811) [facility] [address] POCT-GLUCOSE [id number] 18:04:00 Test Item Value Reference Range Comments POC-GLUCOSE METER (BEAKER) 169 mg/dL 70-110 TESTED AT [address] (test mvvh=3629) [facility] [address] POCT-GLUCOSE [id number] 11:49:00 Test Item Value Reference Range Comments POC-GLUCOSE METER (BEAKER) 126 mg/dL 70-110 TESTED AT [address] (test aslc=0860) [facility] [address] POCT-GLUCOSE [id number] 08:17:00 Test Item Value Reference Range Comments POC-GLUCOSE METER (BEAKER) 119 mg/dL 70-110 TESTED AT [address] (test dzow=7335) [facility] [address] VANCOMYCIN LEVEL, [id number] 06:32:00 Test Item Value Reference Range Comments VANCOMYCIN RANDOM (BEAKER) (test bufd=655) 13.8 ug/mL Reference Range: No NormalsPOCT-GLUCOSE [id number] 05:54:00 Test Item Value Reference Range Comments POC-GLUCOSE METER (BEAKER) 122 mg/dL 70-[address] [facility] [address] (test rcdw=6372) [place] [address] B-TYPE NATRIURETIC FACTOR (BNP)2016-12-14 03:44:00 Test Item Value Reference Range Comments B-TYPE NATRIURETIC PEPTIDE (BEAKER) (test 883 pg/mL 0-100 rmhe=223) BASIC METABOLIC [id number] 03:40:00 Test Item Value Reference Range Comments SODIUM (BEAKER) (test 140 meq/L 136-145 eofb=664) POTASSIUM (BEAKER) (test 4.5 meq/L 3.5-5.1 qtak=349) CHLORIDE (BEAKER) (test 109 meq/L 98-107 uzej=793) CO2 (BEAKER) (test 23 meq/L 22-29 yfhq=693) BLOOD UREA NITROGEN 21 mg/dL 7-21 (BEAKER) (test hqye=768) CREATININE (BEAKER) (test 2.96 mg/dL 0.57-1.25 kngf=494) GLUCOSE RANDOM (BEAKER) 118 mg/dL 70-105 (test dxna=187) CALCIUM (BEAKER) (test 7.5 mg/dL 8.4-10.2 ajwm=218) EGFR (BEAKER) (test 22 mL/min/1.73 sq m ESTIMATED GFR IS NOT ftow=0323) ACCURATE CREATININE CLEARANCE IN PREDICTING GLOMERULAR FILTRATION RATE. ESTIMATED GFR IS NOT APPLICABLE FOR DIALYSIS PATIENTS. [id number] 03:37:00 Test Item Value Reference Range Comments PHOSPHORUS (BEAKER) (test evbx=564) 4.6 mg/dL 2.3-4.7 [id number] 03:37:00 Test Item Value Reference Range Comments MAGNESIUM (BEAKER) (test zusr=395) 1.7 mg/dL 1.6-2.6 CBC W/PLT COUNT & AUTO [id number] 03:36:00 Test Item Value Reference Range Comments WHITE BLOOD CELL COUNT (BEAKER) (test figx=761) 23.8 K/ L 4.0-10.0 RED BLOOD CELL COUNT (BEAKER) (test ords=177) 2.80 M/ L 4.20-5.80 HEMOGLOBIN (BEAKER) (test nxla=468) 8.3 GM/DL 13.0-16.8 HEMATOCRIT (BEAKER) (test hkbq=896) 25.7 % 40.0-50.0 MEAN CORPUSCULAR VOLUME (BEAKER) (test zwzq=987) 91.8 fL 82.0-98.0 MEAN CORPUSCULAR HEMOGLOBIN (BEAKER) (test 29.6 pg 27.0-33.0 lxsm=946) MEAN CORPUSCULAR HEMOGLOBIN CONC (BEAKER) (test 32.2 GM/DL 32.0-36.0 uxqq=402) RED CELL DISTRIBUTION WIDTH (BEAKER) (test 14.8 % 10.3-14.2 hmgm=887) PLATELET COUNT (BEAKER) (test vkrd=317) 261 K/CU MM 150-430 MEAN PLATELET VOLUME (BEAKER) (test wsxb=406) 6.4 fL 6.5-10.5 NUCLEATED RED BLOOD CELLS (BEAKER) (test 0 /100 WBC 0-0 rvor=044) NEUTROPHILS RELATIVE PERCENT (BEAKER) (test 88 % trtr=502) LYMPHOCYTES RELATIVE PERCENT (BEAKER) (test 6 % sndm=953) MONOCYTES RELATIVE PERCENT (BEAKER) (test 6 % fnme=677) EOSINOPHILS RELATIVE PERCENT (BEAKER) (test 0 % fbqj=962) BASOPHILS RELATIVE PERCENT (BEAKER) (test 0 % nzxm=552) NEUTROPHILS ABSOLUTE COUNT (BEAKER) (test 21.00 K/ L 1.80-8.00 rzca=141) LYMPHOCYTES ABSOLUTE COUNT (BEAKER) (test 1.16 K/ L 1.48-4.50 ztyu=924) MONOCYTES ABSOLUTE COUNT (BEAKER) (test 1.53 K/ L 0.00-1.30 zqxp=713) EOSINOPHILS ABSOLUTE COUNT (BEAKER) (test 0.08 K/ L 0.00-0.50 mkyw=618) BASOPHILS ABSOLUTE COUNT (BEAKER) (test 0.03 K/ L 0.00-0.20 svfv=028) 0.00CALCIUM, [id number] 03:20:00 Test Item Value Reference Range Comments CALCIUM IONIZED (BEAKER) (test gfrm=156) 1.02 mmol/L 1.12-1.27 PH, BLOOD (BEAKER) (test qsar=7561) 7.44 POCT-GLUCOSE [id number] 23:20:00 Test Item Value Reference Range Comments POC-GLUCOSE METER (BEAKER) 129 mg/dL 70-[address] [facility] [address] [facility] (test mppu=8252) [facility] [address] POCT-GLUCOSE [id number] 16:47:00 Test Item Value Reference Range Comments POC-GLUCOSE METER (BEAKER) 120 mg/dL 70-110 TESTED AT [place] [id number] [facility] (test kggi=1852) [facility] [address] SPIN/CONCENTRATION [id number] 13:52:00 Test Item Value Reference Range Comments CONCENTRATION CHARGED (BEAKER) (test pyjg=3734) Done SPIN/CONCENTRATION [id number] 13:52:00 Test Item Value Reference Range Comments CONCENTRATION CHARGED (BEAKER) (test xfyw=1691) Done BLOOD GAS, [id number] 08:32:00 Test Item Value Reference Range Comments PH ARTERIAL (BEAKER) (test buki=994) 7.41 7.35-7.45 PCO2 ARTERIAL (BEAKER) (test zufi=859) 45 mmHg 35-45 PO2 ARTERIAL (BEAKER) (test ehnr=407) 137 mmHg 80-90 O2 SATURATION ARTERIAL (BEAKER) (test jwap=390) 98.7 % 96.0-97.0 HCO3 ARTERIAL (BEAKER) (test mbmt=689) 28 mmol/L 21-29 BASE EXCESS ARTERIAL (BEAKER) (test euoj=444) 2.8 mmol/L -2.0-3.0 PATIENT TEMPERATURE (BEAKER) (test yyvd=7883) 37.0 C FIO2 (BEAKER) (test lafh=8842) 40.0 % CBC W/PLT COUNT & AUTO [id number] 08:04:00 Test Item Value Reference Range Comments WHITE BLOOD CELL COUNT (BEAKER) (test eovp=971) 23.6 K/ L 4.0-10.0 RED BLOOD CELL COUNT (BEAKER) (test ecdn=995) 3.04 M/ L 4.20-5.80 HEMOGLOBIN (BEAKER) (test flpt=211) 8.9 GM/DL 13.0-16.8 HEMATOCRIT (BEAKER) (test sxqx=764) 26.9 % 40.0-50.0 MEAN CORPUSCULAR VOLUME (BEAKER) (test mvdi=295) 88.6 fL 82.0-98.0 MEAN CORPUSCULAR HEMOGLOBIN (BEAKER) (test 29.4 pg 27.0-33.0 snsj=178) MEAN CORPUSCULAR HEMOGLOBIN CONC (BEAKER) (test 33.2 GM/DL 32.0-36.0 dmgi=051) RED CELL DISTRIBUTION WIDTH (BEAKER) (test 15.4 % 10.3-14.2 lukj=619) PLATELET COUNT (BEAKER) (test snlf=585) 291 K/CU MM 150-430 MEAN PLATELET VOLUME (BEAKER) (test kljf=592) 6.9 fL 6.5-10.5 NUCLEATED RED BLOOD CELLS (BEAKER) (test 0 /100 WBC 0-0 muoo=718) NEUTROPHILS RELATIVE PERCENT (BEAKER) (test 89 % uhrf=539) LYMPHOCYTES RELATIVE PERCENT (BEAKER) (test 5 % gnnz=138) MONOCYTES RELATIVE PERCENT (BEAKER) (test 6 % wzxu=643) EOSINOPHILS RELATIVE PERCENT (BEAKER) (test 0 % wgxy=878) BASOPHILS RELATIVE PERCENT (BEAKER) (test 0 % mrvg=130) NEUTROPHILS ABSOLUTE COUNT (BEAKER) (test 21.00 K/ L 1.80-8.00 mkmk=063) LYMPHOCYTES ABSOLUTE COUNT (BEAKER) (test 1.17 K/ L 1.48-4.50 ubmy=414) MONOCYTES ABSOLUTE COUNT (BEAKER) (test 1.37 K/ L 0.00-1.30 loee=681) EOSINOPHILS ABSOLUTE COUNT (BEAKER) (test 0.04 K/ L 0.00-0.50 yqwi=824) BASOPHILS ABSOLUTE COUNT (BEAKER) (test 0.02 K/ L 0.00-0.20 yzkw=512) 0.00(MANUAL DIFFERENTIAL)2016-12-13 08:04:00 Test Item Value Reference Range Comments TOTAL COUNTED (BEAKER) (test npww=0591) WBC MORPHOLOGY (BEAKER) (test dnmm=216) Normal PLT MORPHOLOGY (BEAKER) (test uudk=189) Normal HYPOCHROMIA (BEAKER) (test pgvk=913) 1+ few POCT-GLUCOSE [id number] 07:23:00 Test Item Value Reference Range Comments POC-GLUCOSE METER (BEAKER) 116 mg/dL 70-[address] [facility] [address] [facility] (test qlic=7042) [facility] [address] POCT-GLUCOSE [id number] 06:31:00 Test Item Value Reference Range Comments POC-GLUCOSE METER (BEAKER) 115 mg/dL 70-[address] [facility] [address] [facility] (test mdlp=6399) [facility] [address] CALCIUM, [id number] 05:09:00 Test Item Value Reference Range Comments CALCIUM IONIZED (BEAKER) (test bbqn=763) 1.06 mmol/L 1.12-1.27 PH, BLOOD (BEAKER) (test pfnk=0478) 7.46 BASIC METABOLIC [id number] 04:49:00 Test Item Value Reference Range Comments SODIUM (BEAKER) (test 139 meq/L 136-145 mmue=891) POTASSIUM (BEAKER) (test 4.5 meq/L 3.5-5.1 cmoq=845) CHLORIDE (BEAKER) (test 106 meq/L 98-107 oyws=030) CO2 (BEAKER) (test 26 meq/L 22-29 ykel=895) BLOOD UREA NITROGEN 14 mg/dL 7-21 (BEAKER) (test aanh=836) CREATININE (BEAKER) (test 2.20 mg/dL 0.57-1.25 xgrt=521) GLUCOSE RANDOM (BEAKER) 138 mg/dL 70-105 (test sijq=389) CALCIUM (BEAKER) (test 7.8 mg/dL 8.4-10.2 xdbk=987) EGFR (BEAKER) (test 31 mL/min/1.73 sq m ESTIMATED GFR IS NOT lmcu=1107) ACCURATE CREATININE CLEARANCE IN PREDICTING GLOMERULAR FILTRATION RATE. ESTIMATED GFR IS NOT APPLICABLE FOR DIALYSIS PATIENTS. [id number] 04:47:00 Test Item Value Reference Range Comments PHOSPHORUS (BEAKER) (test ofca=123) 3.8 mg/dL 2.3-4.7 [id number] 04:47:00 Test Item Value Reference Range Comments MAGNESIUM (BEAKER) (test gayt=066) 1.6 mg/dL 1.6-2.6 POCT-GLUCOSE [id number] 00:17:00 Test Item Value Reference Range Comments POC-GLUCOSE METER (BEAKER) 165 mg/dL 70-[address] [facility] [address] [facility] (test byag=2645) [facility] [address] POCT-GLUCOSE [id number] 19:50:00 Test Item Value Reference Range Comments POC-GLUCOSE METER (BEAKER) 150 mg/dL 70-[address] [facility] [address] (test zdro=7180) [place] [address] GLUCOSE-STAT [id number] 16:40:00 Test Item Value Reference Range Comments GLUCOSE RANDOM (BEAKER) (test urri=728) 93 mg/dL 70-110 SODIUM NA-STAT [id number] 16:40:00 Test Item Value Reference Range Comments SODIUM (BEAKER) (test ltav=078) 136 meq/L 135-148 POTASSIUM-STAT [id number] 16:40:00 Test Item Value Reference Range Comments POTASSIUM (BEAKER) (test zihl=412) 3.8 meq/L 3.6-5.5 BLOOD GAS, [id number] 16:40:00 Test Item Value Reference Range Comments PH ARTERIAL (BEAKER) (test swpr=169) 7.45 7.35-7.45 PCO2 ARTERIAL (BEAKER) (test hovi=146) 46 mmHg 35-45 PO2 ARTERIAL (BEAKER) (test usnq=634) 371 mmHg 80-90 O2 SATURATION ARTERIAL (BEAKER) (test vogt=377) 99.8 % 96.0-97.0 HCO3 ARTERIAL (BEAKER) (test eara=631) 31 mmol/L 21-29 BASE EXCESS ARTERIAL (BEAKER) (test qjgp=862) 6.0 mmol/L -2.0-3.0 PATIENT TEMPERATURE (BEAKER) (test yfyn=3345) 37.0 C FIO2 (BEAKER) (test mmvv=8339) 60.0 % HGB/HCT (H&H) - STAT [id number] 16:40:00 Test Item Value Reference Range Comments HEMOGLOBIN (BEAKER) (test odsl=813) 6.3 g/dL 13.0-16.8 HEMATOCRIT (BEAKER) (test nxyb=829) 19.0 % 40.0-50.0 GLUCOSE-STAT [id number] 16:14:00 Test Item Value Reference Range Comments GLUCOSE RANDOM (BEAKER) (test gjoh=718) 89 mg/dL 70-110 [id number] 13:22:00 Test Item Value Reference Range Comments PARTIAL THROMBOPLASTIN TIME (BEAKER) (test 80.1 seconds 22.5-36.0 srxo=290) POCT-GLUCOSE [id number] 11:57:00 Test Item Value Reference Range Comments POC-GLUCOSE METER (BEAKER) 82 mg/dL 70-110 TESTED AT [place] [id number] [facility] (test wnuu=0925) [facility] [address] POCT-GLUCOSE [id number] 08:15:00 Test Item Value Reference Range Comments POC-GLUCOSE METER (BEAKER) 90 mg/dL 70-110 TESTED AT [address] (test mnzl=8187) [facility] [address] CBC W/PLT COUNT & AUTO [id number] 05:50:00 Test Item Value Reference Range Comments WHITE BLOOD CELL COUNT (BEAKER) (test evuc=342) 13.9 K/ L 4.0-10.0 RED BLOOD CELL COUNT (BEAKER) (test vrhg=864) 2.42 M/ L 4.20-5.80 HEMOGLOBIN (BEAKER) (test aidw=529) 7.2 GM/DL 13.0-16.8 HEMATOCRIT (BEAKER) (test wvwj=381) 21.8 % 40.0-50.0 MEAN CORPUSCULAR VOLUME (BEAKER) (test qwto=772) 90.3 fL 82.0-98.0 MEAN CORPUSCULAR HEMOGLOBIN (BEAKER) (test 29.5 pg 27.0-33.0 knns=329) MEAN CORPUSCULAR HEMOGLOBIN CONC (BEAKER) (test 32.7 GM/DL 32.0-36.0 pife=043) RED CELL DISTRIBUTION WIDTH (BEAKER) (test 15.9 % 10.3-14.2 gfwz=498) PLATELET COUNT (BEAKER) (test nzbj=559) 282 K/CU MM 150-430 MEAN PLATELET VOLUME (BEAKER) (test wijn=737) 6.8 fL 6.5-10.5 NUCLEATED RED BLOOD CELLS (BEAKER) (test 0 /100 WBC 0-0 pdsp=400) NEUTROPHILS RELATIVE PERCENT (BEAKER) (test 78 % zboz=712) LYMPHOCYTES RELATIVE PERCENT (BEAKER) (test 11 % imkl=037) MONOCYTES RELATIVE PERCENT (BEAKER) (test 9 % isqk=119) EOSINOPHILS RELATIVE PERCENT (BEAKER) (test 1 % pkru=615) BASOPHILS RELATIVE PERCENT (BEAKER) (test 0 % ztnr=715) NEUTROPHILS ABSOLUTE COUNT (BEAKER) (test 10.80 K/ L 1.80-8.00 abhz=883) LYMPHOCYTES ABSOLUTE COUNT (BEAKER) (test 1.57 K/ L 1.48-4.50 pekl=966) MONOCYTES ABSOLUTE COUNT (BEAKER) (test 1.30 K/ L 0.00-1.30 uuig=925) EOSINOPHILS ABSOLUTE COUNT (BEAKER) (test 0.20 K/ L 0.00-0.50 dnzc=863) BASOPHILS ABSOLUTE COUNT (BEAKER) (test 0.04 K/ L 0.00-0.20 khba=982) 0.00CALCIUM, [id number] 05:43:00 Test Item Value Reference Range Comments CALCIUM IONIZED (BEAKER) (test byqv=284) 0.97 mmol/L 1.12-1.27 PH, BLOOD (BEAKER) (test zgye=7162) 7.51 BASIC METABOLIC [id number] 05:35:00 Test Item Value Reference Range Comments SODIUM (BEAKER) (test 132 meq/L 136-145 jcsv=788) POTASSIUM (BEAKER) (test 4.2 meq/L 3.5-5.1 cexn=182) CHLORIDE (BEAKER) (test 102 meq/L 98-107 rhan=638) CO2 (BEAKER) (test 22 meq/L 22-29 vopf=100) BLOOD UREA NITROGEN 26 mg/dL 7-21 (BEAKER) (test tfjw=249) CREATININE (BEAKER) (test 3.57 mg/dL 0.57-1.25 ztmc=243) GLUCOSE RANDOM (BEAKER) 69 mg/dL 70-105 (test ortj=414) CALCIUM (BEAKER) (test 7.6 mg/dL 8.4-10.2 kbke=313) EGFR (BEAKER) (test 18 mL/min/1.73 sq m ESTIMATED GFR IS NOT vvtp=0547) ACCURATE CREATININE CLEARANCE IN PREDICTING GLOMERULAR FILTRATION RATE. ESTIMATED GFR IS NOT APPLICABLE FOR DIALYSIS PATIENTS. [id number] 05:31:00 Test Item Value Reference Range Comments PHOSPHORUS (BEAKER) (test uxkw=672) 3.7 mg/dL 2.3-4.7 [id number] 05:31:00 Test Item Value Reference Range Comments MAGNESIUM (BEAKER) (test odfr=034) 1.8 mg/dL 1.6-2.6 [id number] 05:30:00 Test Item Value Reference Range Comments PARTIAL THROMBOPLASTIN TIME (BEAKER) (test 44.4 seconds 22.5-36.0 rzam=313) PROTHROMBIN [id number] 05:29:00 Test Item Value Reference Range Comments PROTIME (BEAKER) (test xyhx=464) 14.5 seconds 11.7-14.7 INR (BEAKER) (test gffe=447) 1.1 <=5.9 RECOMMENDED COUMADIN/WARFARIN INR THERAPY RANGESSTANDARD DOSE: 2.0 - 3.0 Includes: PROPHYLAXIS forvenous thrombosis, systemic embolization; TREATMENT for venous thrombosis and/or pulmonary embolus.HIGH RISK: Target INR is 2.5-3.5 for patients with mechanical heart valves.POCT-GLUCOSE [id number] 22:10:00 Test Item Value Reference Range Comments POC-GLUCOSE METER (BEAKER) 106 mg/dL 70-110 TESTED AT [address] (test flay=0399) [place] [id number] POCT-GLUCOSE [id number] 17:31:00 Test Item Value Reference Range Comments POC-GLUCOSE METER (BEAKER) 114 mg/dL 70-110 TESTED AT [address] (test mzzs=7675) [place] [address] [id number] 15:36:00 Test Item Value Reference Range Comments PARTIAL THROMBOPLASTIN TIME (BEAKER) (test 38.5 seconds 22.5-36.0 ytwy=237) PROTHROMBIN [id number] 15:35:00 Test Item Value Reference Range Comments PROTIME (BEAKER) (test eovv=367) 14.6 seconds 11.7-14.7 INR (BEAKER) (test erlv=210) 1.2 <=5.9 RECOMMENDED COUMADIN/WARFARIN INR THERAPY RANGESSTANDARD DOSE: 2.0 - 3.0 Includes: PROPHYLAXIS forvenous thrombosis, systemic embolization; TREATMENT for venous thrombosis and/or pulmonary embolus.HIGH RISK: Target INR is 2.5-3.5 for patients with mechanical heart valves.POCT-GLUCOSE [id number] 12:12:00 Test Item Value Reference Range Comments POC-GLUCOSE METER (BEAKER) 130 mg/dL 70-110 TESTED AT [address] (test dzxu=4432) [place] [id number] POCT-GLUCOSE [id number] 08:04:00 Test Item Value Reference Range Comments POC-GLUCOSE METER (BEAKER) 96 mg/dL 70-110 TESTED AT [address] (test xbuw=0795) [place] [id number] VANCOMYCIN LEVEL, [id number] 07:30:00 Test Item Value Reference Range Comments VANCOMYCIN RANDOM (BEAKER) (test txze=566) 21.2 ug/mL Reference Range: No NormalsPOCT-GLUCOSE [id number] 20:25:00 Test Item Value Reference Range Comments POC-GLUCOSE METER (BEAKER) 152 mg/dL 70-110 TESTED AT [address] (test adir=5575) [place] [id number] POCT-GLUCOSE [id number] 17:23:00 Test Item Value Reference Range Comments POC-GLUCOSE METER (BEAKER) 161 mg/dL 70-110 TESTED AT [address] (test pfql=9293) [place] [address] [id number] 13:34:00 Test Item Value Reference Range Comments PROTIME (BEAKER) (test gduc=131) 15.4 seconds 11.7-14.7 INR (BEAKER) (test rxgs=535) 1.2 <=5.9 PARTIAL THROMBOPLASTIN TIME (BEAKER) (test 51.5 seconds 22.5-36.0 uaif=277) RECOMMENDED COUMADIN/WARFARIN INR THERAPY RANGESSTANDARD DOSE: 2.0 - 3.0 Includes: PROPHYLAXIS forvenous thrombosis, systemic embolization; TREATMENT for venous thrombosis and/or pulmonary embolus.HIGH RISK: Target INR is 2.5-3.5 for patients with mechanical heart valves.POCT-GLUCOSE [id number] 12:11:00 Test Item Value Reference Range Comments POC-GLUCOSE METER (BEAKER) 140 mg/dL 70-110 TESTED AT [address] (test lafv=1473) [place] [id number] CBC W/PLT COUNT & AUTO [id number] 08:02:00 Test Item Value Reference Range Comments WHITE BLOOD CELL COUNT (BEAKER) (test kdvb=836) 14.8 K/ L 4.0-10.0 RED BLOOD CELL COUNT (BEAKER) (test vfqn=913) 2.40 M/ L 4.20-5.80 HEMOGLOBIN (BEAKER) (test gpug=594) 7.0 GM/DL 13.0-16.8 HEMATOCRIT (BEAKER) (test qnhx=542) 21.6 % 40.0-50.0 MEAN CORPUSCULAR VOLUME (BEAKER) (test fqgi=955) 90.0 fL 82.0-98.0 MEAN CORPUSCULAR HEMOGLOBIN (BEAKER) (test 29.2 pg 27.0-33.0 kgnr=576) MEAN CORPUSCULAR HEMOGLOBIN CONC (BEAKER) (test 32.5 GM/DL 32.0-36.0 tdhj=374) RED CELL DISTRIBUTION WIDTH (BEAKER) (test 15.8 % 10.3-14.2 pzab=174) PLATELET COUNT (BEAKER) (test dziq=576) 276 K/CU MM 150-430 MEAN PLATELET VOLUME (BEAKER) (test vybc=861) 6.8 fL 6.5-10.5 NUCLEATED RED BLOOD CELLS (BEAKER) (test 0 /100 WBC 0-0 gdws=783) NEUTROPHILS RELATIVE PERCENT (BEAKER) (test 80 % bqls=371) LYMPHOCYTES RELATIVE PERCENT (BEAKER) (test 10 % spsa=699) MONOCYTES RELATIVE PERCENT (BEAKER) (test 9 % icqj=927) EOSINOPHILS RELATIVE PERCENT (BEAKER) (test 1 % eyet=085) BASOPHILS RELATIVE PERCENT (BEAKER) (test 0 % cbax=734) NEUTROPHILS ABSOLUTE COUNT (BEAKER) (test 11.80 K/ L 1.80-8.00 szql=051) LYMPHOCYTES ABSOLUTE COUNT (BEAKER) (test 1.49 K/ L 1.48-4.50 ohja=398) MONOCYTES ABSOLUTE COUNT (BEAKER) (test 1.28 K/ L 0.00-1.30 ynob=967) EOSINOPHILS ABSOLUTE COUNT (BEAKER) (test 0.17 K/ L 0.00-0.50 obha=769) BASOPHILS ABSOLUTE COUNT (BEAKER) (test 0.04 K/ L 0.00-0.20 qlvn=258) 0.00VANCOMYCIN LEVEL, [id number] 07:43:00 Test Item Value Reference Range Comments VANCOMYCIN RANDOM (BEAKER) (test viwn=241) 31.1 ug/mL Reference Range: No NormalsBASIC METABOLIC [id number] 07:30:00 Test Item Value Reference Range Comments SODIUM (BEAKER) (test 134 meq/L 136-145 gccu=661) POTASSIUM (BEAKER) (test 3.6 meq/L 3.5-5.1 kign=805) CHLORIDE (BEAKER) (test 100 meq/L 98-107 ghxo=504) CO2 (BEAKER) (test 27 meq/L 22-29 nhih=278) BLOOD UREA NITROGEN 12 mg/dL 7-21 (BEAKER) (test ijft=326) CREATININE (BEAKER) (test 1.88 mg/dL 0.57-1.25 ymbr=244) GLUCOSE RANDOM (BEAKER) 109 mg/dL 70-105 (test ntbn=471) CALCIUM (BEAKER) (test 7.7 mg/dL 8.4-10.2 nuyy=752) EGFR (BEAKER) (test 37 mL/min/1.73 sq m ESTIMATED GFR IS NOT ykxf=2083) ACCURATE CREATININE CLEARANCE IN PREDICTING GLOMERULAR FILTRATION RATE. ESTIMATED GFR IS NOT APPLICABLE FOR DIALYSIS PATIENTS. [id number] 07:25:00 Test Item Value Reference Range Comments PHOSPHORUS (BEAKER) (test oxnr=309) 2.9 mg/dL 2.3-4.7 [id number] 07:25:00 Test Item Value Reference Range Comments MAGNESIUM (BEAKER) (test lrcu=500) 1.3 mg/dL 1.6-2.6 POCT-GLUCOSE [id number] 07:18:00 Test Item Value Reference Range Comments POC-GLUCOSE METER (BEAKER) 107 mg/dL 70-[address] [facility] [address] [facility] (test kkkn=3379) [facility] [address] CALCIUM, [id number] 06:57:00 Test Item Value Reference Range Comments CALCIUM IONIZED (BEAKER) (test evlu=177) 1.04 mmol/L 1.12-1.27 PH, BLOOD (BEAKER) (test laew=0893) 7.44 BLOOD [id number] 17:00:00 Test Item Value Reference Range Comments CULTURE (BEAKER) (test ulse=5548) No growth in 5 days BLOOD [id number] 17:00:00 Test Item Value Reference Range Comments CULTURE (BEAKER) (test xjxr=7487) No growth in 5 days POCT-GLUCOSE [id number] 12:01:00 Test Item Value Reference Range Comments POC-GLUCOSE METER (BEAKER) 128 mg/dL 70-110 TESTED AT [address] (test bumq=5485) [facility] [address] POCT-GLUCOSE [id number] 07:48:00 Test Item Value Reference Range Comments POC-GLUCOSE METER (BEAKER) 100 mg/dL 70-110 TESTED AT [address] (test cumm=9688) [facility] [address] VANCOMYCIN LEVEL, [id number] 05:36:00 Test Item Value Reference Range Comments VANCOMYCIN RANDOM (BEAKER) (test ilai=973) 26.8 ug/mL Reference Range: No NormalsSPUTUM CULTURE + GRAM [id number] 00:09:00 Test Item Value Reference Range Comments CULTURE (BEAKER) (test Oropharyngeal contamination, fdqy=4284) specimen rejected. Recollect requested. GRAM STAIN RESULT (BEAKER) No WBCs (test chyv=4309) GRAM STAIN RESULT (BEAKER) >25 epithelial cells (test ezvl=12293) GRAM STAIN RESULT (BEAKER) 4+ gram positive rods (test krkq=21288) GRAM STAIN RESULT (BEAKER) 4+ gram positive cocci in pairs (test kcpw=585869) GRAM STAIN RESULT (BEAKER) 4+ budding yeast (test qbtw=953099) POCT-GLUCOSE [id number] 20:17:00 Test Item Value Reference Range Comments POC-GLUCOSE METER (BEAKER) 111 mg/dL 70-110 TESTED AT [place] [id number] [facility] (test lzez=4666) [facility] [address] TSH/FREE T4 IF [id number] 18:39:00 Test Item Value Reference Range Comments THYROID STIMULATING HORMONE (BEAKER) (test 3.14 uIU/mL 0.35-4.94 jihz=789) VITAMIN B12 AND [id number] 18:39:00 Test Item Value Reference Range Comments VITAMIN B12 (BEAKER) (test cdqy=002) 1407 pg/mL 213-816 FOLATE (BEAKER) (test hzxa=421) 16.4 ng/mL >=7.0 Effective 09/08/2014: Folate Reference Range ChangeNew: >=7.0 Previous: & gt;=[id number] 18:12:00 Test Item Value Reference Range Comments CALCIUM (BEAKER) (test ynlj=956) 8.2 mg/dL 8.4-10.2 PROTHROMBIN [id number] 18:07:00 Test Item Value Reference Range Comments PROTIME (BEAKER) (test gacp=299) 15.5 seconds 11.7-14.7 INR (BEAKER) (test nvdw=524) 1.2 <=5.9 RECOMMENDED COUMADIN/WARFARIN INR THERAPY RANGESSTANDARD DOSE: 2.0 - 3.0 Includes: PROPHYLAXIS forvenous thrombosis, systemic embolization; TREATMENT for venous thrombosis and/or pulmonary embolus.HIGH RISK: Target INR is 2.5-3.5 for patients with mechanical heart valves.[id number] 18:06:00 Test Item Value Reference Range Comments PHOSPHORUS (BEAKER) (test szbp=019) 3.4 mg/dL 2.3-4.7 [id number] 18:06:00 Test Item Value Reference Range Comments MAGNESIUM (BEAKER) (test lqsq=668) 1.5 mg/dL 1.6-2.6 HEPATIC FUNCTION [id number] 18:06:00 Test Item Value Reference Range Comments TOTAL PROTEIN (BEAKER) (test aztv=970) 5.9 gm/dL 6.0-8.3 ALBUMIN (BEAKER) (test alax=0393) 2.3 g/dL 3.5-5.0 BILIRUBIN TOTAL (BEAKER) (test gxik=360) 0.4 mg/dL 0.2-1.2 BILIRUBIN DIRECT (BEAKER) (test qksm=608) 0.2 mg/dL 0.1-0.5 ALKALINE PHOSPHATASE (BEAKER) (test ejhr=722) 118 U/L 40-150 AST (SGOT) (BEAKER) (test sqap=809) 11 U/L 5-34 ALT (SGPT) (BEAKER) (test pzbh=083) 7 U/L 6-55 [id number] 17:57:00 Test Item Value Reference Range Comments AMMONIA (BEAKER) (test evsm=812) 23 mol/L 18-72 POCT-GLUCOSE [id number] 17:55:00 Test Item Value Reference Range Comments POC-GLUCOSE METER (BEAKER) 137 mg/dL 70-110 TESTED AT [address] (test ylyn=0855) [facility] [address] POCT-GLUCOSE [id number] 17:01:00 Test Item Value Reference Range Comments POC-GLUCOSE METER (BEAKER) 62 mg/dL 70-110 TESTED AT [address] (test cwpr=5161) [facility] [address] [id number] 15:09:00 Test Item Value Reference Range Comments SODIUM (BEAKER) (test wsrm=967) 138 meq/L 136-145 POTASSIUM (BEAKER) (test 4.0 meq/L 3.5-5.1 Specimen slightly hemolyzed xayy=655) CHLORIDE (BEAKER) (test 105 meq/L 98-107 omgx=658) CO2 (BEAKER) (test ivgc=202) 23 meq/L 22-29 BLOOD GAS, [id number] 14:56:00 Test Item Value Reference Range Comments PH ARTERIAL (BEAKER) (test ijkx=783) 7.53 7.35-7.45 PCO2 ARTERIAL (BEAKER) (test reoi=597) 35 mmHg 35-45 PO2 ARTERIAL (BEAKER) (test rvgv=666) 70 mmHg 80-90 O2 SATURATION ARTERIAL (BEAKER) (test exav=678) 95.5 % 96.0-97.0 HCO3 ARTERIAL (BEAKER) (test bfpg=913) 28 mmol/L 21-29 BASE EXCESS ARTERIAL (BEAKER) (test nxcs=768) 5.2 mmol/L -2.0-3.0 PATIENT TEMPERATURE (BEAKER) (test jrol=4026) 37.3 C FIO2 (BEAKER) (test yulg=7147) 21.0 % CBC W/PLT COUNT & AUTO [id number] 14:56:00 Test Item Value Reference Range Comments WHITE BLOOD CELL COUNT (BEAKER) (test ixvq=678) 18.1 K/ L 4.0-10.0 RED BLOOD CELL COUNT (BEAKER) (test nhzt=314) 2.43 M/ L 4.20-5.80 HEMOGLOBIN (BEAKER) (test uuvl=167) 7.3 GM/DL 13.0-16.8 HEMATOCRIT (BEAKER) (test uisl=994) 22.2 % 40.0-50.0 MEAN CORPUSCULAR VOLUME (BEAKER) (test kkdz=710) 91.7 fL 82.0-98.0 MEAN CORPUSCULAR HEMOGLOBIN (BEAKER) (test 30.0 pg 27.0-33.0 kccx=260) MEAN CORPUSCULAR HEMOGLOBIN CONC (BEAKER) (test 32.7 GM/DL 32.0-36.0 susc=189) RED CELL DISTRIBUTION WIDTH (BEAKER) (test 15.7 % 10.3-14.2 lwms=643) PLATELET COUNT (BEAKER) (test nrrd=101) 290 K/CU MM 150-430 MEAN PLATELET VOLUME (BEAKER) (test dcih=127) 6.9 fL 6.5-10.5 NUCLEATED RED BLOOD CELLS (BEAKER) (test 0 /100 WBC 0-0 hmuk=816) NEUTROPHILS RELATIVE PERCENT (BEAKER) (test 84 % gidf=430) LYMPHOCYTES RELATIVE PERCENT (BEAKER) (test 8 % ladx=490) MONOCYTES RELATIVE PERCENT (BEAKER) (test 8 % hfwu=090) EOSINOPHILS RELATIVE PERCENT (BEAKER) (test 0 % mdat=784) BASOPHILS RELATIVE PERCENT (BEAKER) (test 0 % osgr=186) NEUTROPHILS ABSOLUTE COUNT (BEAKER) (test 15.10 K/ L 1.80-8.00 kcbp=044) LYMPHOCYTES ABSOLUTE COUNT (BEAKER) (test 1.51 K/ L 1.48-4.50 qsjn=602) MONOCYTES ABSOLUTE COUNT (BEAKER) (test 1.43 K/ L 0.00-1.30 dnhe=341) EOSINOPHILS ABSOLUTE COUNT (BEAKER) (test 0.03 K/ L 0.00-0.50 biet=347) BASOPHILS ABSOLUTE COUNT (BEAKER) (test 0.02 K/ L 0.00-0.20 sbau=820) 0.00POCT-GLUCOSE [id number] 12:19:00 Test Item Value Reference Range Comments POC-GLUCOSE METER (BEAKER) 75 mg/dL 70-[address] [facility] [address] [facility] (test pksf=0449) [facility] [address] [id number] 09:59:00 Test Item Value Reference Range Comments HAPTOGLOBIN (BEAKER) (test kagl=125) > mg/dL 14-258 Effective 09/08/2014: Reference Range ChangeNew: 14-258 Previous: 36- 195LACTATE DEHYDROGENASE (LDH)2016-12-08 09:56:00 Test Item Value Reference Range Comments LACTATE DEHYDROGENASE (BEAKER) (test qqyp=263) 234 U/L 125-220 [id number] 09:35:00 Test Item Value Reference Range Comments FIBRINOGEN LEVEL (BEAKER) (test pswf=115) 554 mg/dl 225-434 BASIC METABOLIC [id number] 08:56:00 Test Item Value Reference Range Comments SODIUM (BEAKER) (test 139 meq/L 136-145 fmtg=939) POTASSIUM (BEAKER) (test 3.0 meq/L 3.5-5.1 yvyb=221) CHLORIDE (BEAKER) (test 114 meq/L 98-107 xgiv=192) CO2 (BEAKER) (test 18 meq/L 22-29 eqle=280) BLOOD UREA NITROGEN 14 mg/dL 7-21 (BEAKER) (test kbhd=369) CREATININE (BEAKER) (test 1.68 mg/dL 0.57-1.25 vgcn=302) GLUCOSE RANDOM (BEAKER) 65 mg/dL 70-105 (test yaxp=438) CALCIUM (BEAKER) (test 6.3 mg/dL 8.4-10.2 oybj=242) EGFR (BEAKER) (test 42 mL/min/1.73 sq m ESTIMATED GFR IS NOT xieu=8568) ACCURATE CREATININE CLEARANCE IN PREDICTING GLOMERULAR FILTRATION RATE. ESTIMATED GFR IS NOT APPLICABLE FOR DIALYSIS PATIENTS. CBC W/PLT COUNT & AUTO [id number] 08:55:00 Test Item Value Reference Range Comments WHITE BLOOD CELL COUNT (BEAKER) (test qlrr=662) 12.8 K/ L 4.0-10.0 RED BLOOD CELL COUNT (BEAKER) (test mqbi=670) 1.79 M/ L 4.20-5.80 HEMOGLOBIN (BEAKER) (test wcag=499) 5.4 GM/DL 13.0-16.8 HEMATOCRIT (BEAKER) (test agre=068) 16.7 % 40.0-50.0 MEAN CORPUSCULAR VOLUME (BEAKER) (test nkam=699) 93.5 fL 82.0-98.0 MEAN CORPUSCULAR HEMOGLOBIN (BEAKER) (test 30.2 pg 27.0-33.0 vxib=584) MEAN CORPUSCULAR HEMOGLOBIN CONC (BEAKER) (test 32.3 GM/DL 32.0-36.0 vffh=102) RED CELL DISTRIBUTION WIDTH (BEAKER) (test 15.9 % 10.3-14.2 feso=887) PLATELET COUNT (BEAKER) (test asss=755) 211 K/CU MM 150-430 MEAN PLATELET VOLUME (BEAKER) (test zeex=107) 6.8 fL 6.5-10.5 NUCLEATED RED BLOOD CELLS (BEAKER) (test 0 /100 WBC 0-0 srju=500) NEUTROPHILS RELATIVE PERCENT (BEAKER) (test 82 % wjly=887) LYMPHOCYTES RELATIVE PERCENT (BEAKER) (test 8 % rofs=500) MONOCYTES RELATIVE PERCENT (BEAKER) (test 9 % utyu=518) EOSINOPHILS RELATIVE PERCENT (BEAKER) (test 0 % gaeb=977) BASOPHILS RELATIVE PERCENT (BEAKER) (test 0 % cibw=226) NEUTROPHILS ABSOLUTE COUNT (BEAKER) (test 10.50 K/ L 1.80-8.00 qrme=931) LYMPHOCYTES ABSOLUTE COUNT (BEAKER) (test 1.08 K/ L 1.48-4.50 uwys=960) MONOCYTES ABSOLUTE COUNT (BEAKER) (test 1.17 K/ L 0.00-1.30 yalg=753) EOSINOPHILS ABSOLUTE COUNT (BEAKER) (test 0.06 K/ L 0.00-0.50 urvz=837) BASOPHILS ABSOLUTE COUNT (BEAKER) (test 0.04 K/ L 0.00-0.20 cpoe=009) 0.00LACTIC ACID, VENOUS, WHOLE [id number] 08:52:00 Test Item Value Reference Range Comments LACTATE BLOOD VENOUS (2) (BEAKER) (test 0.5 mmol/L 0.5-2.2 dmjm=8643) Effective 02/23/2016: Units/Reference Range ChangeNew: 0.5-2.2 mmol/L Previous: 5 -20 mg/dLPOCT-GLUCOSE [id number] 07:40:00 Test Item Value Reference Range Comments POC-GLUCOSE METER (BEAKER) 80 mg/dL 70-110 TESTED AT [address] (test bqdo=8297) [facility] [address] POCT-GLUCOSE [id number] 21:47:00 Test Item Value Reference Range Comments POC-GLUCOSE METER (BEAKER) 97 mg/dL 70-110 TESTED AT [address] (test ucbf=0247) [facility] [address] POCT-GLUCOSE [id number] 17:45:00 Test Item Value Reference Range Comments POC-GLUCOSE METER (BEAKER) 115 mg/dL 70-110 TESTED AT [address] (test kioi=3443) [facility] [address] POCT-GLUCOSE [id number] 12:56:00 Test Item Value Reference Range Comments POC-GLUCOSE METER (BEAKER) 120 mg/dL 70-110 TESTED AT [address] (test rmib=9420) [place] [id number] POCT-GLUCOSE [id number] 12:56:00 Test Item Value Reference Range Comments POC-GLUCOSE METER (BEAKER) 107 mg/dL 70-110 TESTED AT [address] (test gnuk=7521) [place] [id number] CBC W/PLT COUNT & AUTO [id number] 11:18:00 Test Item Value Reference Range Comments WHITE BLOOD CELL COUNT (BEAKER) (test acrg=524) 21.4 K/ L 4.0-10.0 RED BLOOD CELL COUNT (BEAKER) (test mclu=794) 2.63 M/ L 4.20-5.80 HEMOGLOBIN (BEAKER) (test fizt=694) 7.5 GM/DL 13.0-16.8 HEMATOCRIT (BEAKER) (test biip=427) 24.1 % 40.0-50.0 MEAN CORPUSCULAR VOLUME (BEAKER) (test jhew=740) 91.8 fL 82.0-98.0 MEAN CORPUSCULAR HEMOGLOBIN (BEAKER) (test 28.6 pg 27.0-33.0 pdiu=641) MEAN CORPUSCULAR HEMOGLOBIN CONC (BEAKER) (test 31.1 GM/DL 32.0-36.0 cpxu=606) RED CELL DISTRIBUTION WIDTH (BEAKER) (test 15.4 % 10.3-14.2 gtiy=475) PLATELET COUNT (BEAKER) (test irpz=423) 297 K/CU MM 150-430 MEAN PLATELET VOLUME (BEAKER) (test drkv=351) 7.0 fL 6.5-10.5 NUCLEATED RED BLOOD CELLS (BEAKER) (test 0 /100 WBC 0-0 mpnq=350) NEUTROPHILS RELATIVE PERCENT (BEAKER) (test 88 % ndwo=090) LYMPHOCYTES RELATIVE PERCENT (BEAKER) (test 6 % xqgr=513) MONOCYTES RELATIVE PERCENT (BEAKER) (test 6 % tfeb=071) EOSINOPHILS RELATIVE PERCENT (BEAKER) (test 0 % ymzx=171) BASOPHILS RELATIVE PERCENT (BEAKER) (test 0 % sqgc=521) NEUTROPHILS ABSOLUTE COUNT (BEAKER) (test 18.90 K/ L 1.80-8.00 ogfu=564) LYMPHOCYTES ABSOLUTE COUNT (BEAKER) (test 1.25 K/ L 1.48-4.50 ictm=505) MONOCYTES ABSOLUTE COUNT (BEAKER) (test 1.26 K/ L 0.00-1.30 xfap=126) EOSINOPHILS ABSOLUTE COUNT (BEAKER) (test 0.05 K/ L 0.00-0.50 figh=507) BASOPHILS ABSOLUTE COUNT (BEAKER) (test 0.01 K/ L 0.00-0.20 qxfq=270) 0.000.520.000.000.560.000.000.000.00(MANUAL DIFFERENTIAL)2016-12-07 11:18:00 Test Item Value Reference Range Comments TOTAL COUNTED (BEAKER) (test msiw=5089) CATHETER TIP [id number] 09:38:00 Test Item Value Reference Range Comments CULTURE (BEAKER) (test METHICILLIN RESISTANT 15-29 Colonies On lica=6364) STAPHYLOCOCCUS AUREUS Direct Plate Methicillin resistant Staphylococcus aureus Clindamycin (test code=10) Erythromycin (test code=4) Linezolid (test code=40) Oxacillin (test code=14) Rifampin (test code=43) Tetracycline (test code=2) Trimethoprim + Sulfamethoxazole (test code=47) Vancomycin (test code=13) CULTURE (BEAKER) (test <15 Colonies On hnpl=314441) Direct Plate Methicillin resistant Staphylococcus aureusof a second type CALCIUM, [id number] 09:12:00 Test Item Value Reference Range Comments CALCIUM IONIZED (BEAKER) (test vpfr=861) 1.04 mmol/L 1.12-1.27 PH, BLOOD (BEAKER) (test lyrh=0140) 7.40 BASIC METABOLIC [id number] 07:52:00 Test Item Value Reference Range Comments SODIUM (BEAKER) (test 134 meq/L 136-145 rhgc=184) POTASSIUM (BEAKER) (test 4.1 meq/L 3.5-5.1 zoki=263) CHLORIDE (BEAKER) (test 103 meq/L 98-107 ouri=696) CO2 (BEAKER) (test 20 meq/L 22-29 ooek=085) BLOOD UREA NITROGEN 37 mg/dL 7-21 (BEAKER) (test cpqg=010) CREATININE (BEAKER) (test 3.25 mg/dL 0.57-1.25 fozr=714) GLUCOSE RANDOM (BEAKER) 129 mg/dL 70-105 (test foch=879) CALCIUM (BEAKER) (test 8.1 mg/dL 8.4-10.2 fmee=493) EGFR (BEAKER) (test 20 mL/min/1.73 sq m ESTIMATED GFR IS NOT pyai=2842) ACCURATE CREATININE CLEARANCE IN PREDICTING GLOMERULAR FILTRATION RATE. ESTIMATED GFR IS NOT APPLICABLE FOR DIALYSIS PATIENTS. [id number] 07:48:00 Test Item Value Reference Range Comments PHOSPHORUS (BEAKER) (test ytus=580) 4.8 mg/dL 2.3-4.7 [id number] 07:48:00 Test Item Value Reference Range Comments MAGNESIUM (BEAKER) (test xjgb=965) 1.9 mg/dL 1.6-2.6 ANAEROBIC [id number] 02:42:00 Test Item Value Reference Range Comments CULTURE (BEAKER) (test tkul=5349) No anaerobes isolated POCT-GLUCOSE [id number] 20:57:00 Test Item Value Reference Range Comments POC-GLUCOSE METER (BEAKER) 191 mg/dL 70-[address] [facility] [address] [facility] (test ygcu=4207) [facility] [address] VANCOMYCIN LEVEL, [id number] 17:35:00 Test Item Value Reference Range Comments VANCOMYCIN RANDOM (BEAKER) (test wiwl=386) 21.9 ug/mL Reference Range: No NormalsPOCT-GLUCOSE [id number] 13:28:00 Test Item Value Reference Range Comments POC-GLUCOSE METER (BEAKER) 202 mg/dL 70-[address] [facility] [address] [facility] (test ukmt=9422) [facility] [address] POCT-GLUCOSE [id number] 08:30:00 Test Item Value Reference Range Comments POC-GLUCOSE METER (BEAKER) 144 mg/dL 70-[address] [facility] [address] [facility] (test yvvw=5525) [facility] [address] BASIC METABOLIC [id number] 07:04:00 Test Item Value Reference Range Comments SODIUM (BEAKER) (test 134 meq/L 136-145 yyjb=071) POTASSIUM (BEAKER) (test 3.8 meq/L 3.5-5.1 ppmw=477) CHLORIDE (BEAKER) (test 104 meq/L 98-107 fnfo=220) CO2 (BEAKER) (test 21 meq/L 22-29 qxug=599) BLOOD UREA NITROGEN 33 mg/dL 7-21 (BEAKER) (test vwec=469) CREATININE (BEAKER) (test 2.91 mg/dL 0.57-1.25 btwv=337) GLUCOSE RANDOM (BEAKER) 124 mg/dL 70-105 (test kgcs=806) CALCIUM (BEAKER) (test 7.8 mg/dL 8.4-10.2 qxmw=127) EGFR (BEAKER) (test 22 mL/min/1.73 sq m ESTIMATED GFR IS NOT ewhg=1486) ACCURATE CREATININE CLEARANCE IN PREDICTING GLOMERULAR FILTRATION RATE. ESTIMATED GFR IS NOT APPLICABLE FOR DIALYSIS PATIENTS. PROTHROMBIN [id number] 07:03:00 Test Item Value Reference Range Comments PROTIME (BEAKER) (test wtfx=903) 14.7 seconds 11.7-14.7 INR (BEAKER) (test ktww=421) 1.2 <=5.9 RECOMMENDED COUMADIN/WARFARIN INR THERAPY RANGESSTANDARD DOSE: 2.0 - 3.0 Includes: PROPHYLAXIS forvenous thrombosis, systemic embolization; TREATMENT for venous thrombosis and/or pulmonary embolus.HIGH RISK: Target INR is 2.5-3.5 for patients with mechanical heart valves.[id number] 07:01:00 Test Item Value Reference Range Comments PHOSPHORUS (BEAKER) (test hhgs=465) 3.9 mg/dL 2.3-4.7 [id number] 07:01:00 Test Item Value Reference Range Comments MAGNESIUM (BEAKER) (test zffg=926) 1.7 mg/dL 1.6-2.6 CALCIUM, [id number] 06:45:00 Test Item Value Reference Range Comments CALCIUM IONIZED (BEAKER) (test xchs=788) 1.00 mmol/L 1.12-1.27 PH, BLOOD (BEAKER) (test pacr=2098) 7.43 POCT-GLUCOSE [id number] 21:06:00 Test Item Value Reference Range Comments POC-GLUCOSE METER (BEAKER) 167 mg/dL 70-110 TESTED AT [address] (test qxws=7952) [place] [address] POCT-GLUCOSE [id number] 17:43:00 Test Item Value Reference Range Comments POC-GLUCOSE METER (BEAKER) 212 mg/dL 70-110 TESTED AT [address] (test xwpr=6771) [place] [address]
[2018-01-13 01:06] LABS: Absolute Lymphocytes (CBC) 0.7 K/uL (0.7-4.9); Absolute Monocytes 0.8 K/uL (0.1-1.3); Absolute Neutrophil 11.7 K/uL (1.8-8.0); Basophils % 0.6 % (0-1.3); Eosinophils % 1.4 % (0-4.4); Hematocrit 26.8 % (39.6-49.0); Lymphocytes % 5.1 % (15.3-44.8); MCH 26.7 pg (27.0-35.0); MCV 82.5 fL (80-100); Monocytes % 5.9 % (3.3-12.3); RBC Red Blood Cell Count 3.25 M/uL (4.33-5.43)
[2018-01-13 01:26] LABS: Albumin 3.1 g/dL (3.2-5.5); Bilirubin Direct 0.1 mg/dL (0-0.2); Bilirubin Total 0.6 mg/dL (0.3-1.2); Protein, Total 6.7 g/dL (6.0-8.3); Protime INR 1.06
[2018-01-13 01:29] LABS: Blood Morphology Comment NOTED (NOT SEEN); CKMB Creatine Kinase MB 6.1 ng/ml (0.3-4.0); Platelet Estimate ADEQ; Polychromasia SLIGHT; Urine White Blood Cell Casts OK
[2018-01-13] MEDS ORDERED: ALBUTEROL 2.5 MG/3 ML NEB SOL ONE (01:56)
--- NOTE | 2018-01-13 05:11 | EKG ---
Test Date: 2018-01-13 Test Time: 00:39:29 Summer Clerk: UBALDO MEASUREMENT RESULTS: Intervals: Rate: 58 AK: 166 QRSD: 132 QT: 480 QTc: 471 [place]: P: 62 AK: 166 QRS: 71 T: -39 INTERPRETIVE STATEMENTS: Sinus bradycardia Possible Left atrial enlargement Nonspecific intraventricular block Inferior infarct, age undetermined Abnormal ECG Compared to ECG 01/10/2018 22:11:42 Myocardial infarct finding now present Sinus rhythm no longer present T-wave abnormality no longer present Electronically Signed On 01-13-18 05:10:32 CDT by Júnior Napoles
--- NOTE | 2018-01-13 05:12 | EDPHYS ---
Physician Documentation [facility] Name: Federico Martinez Age: 57 yrs Sex: Male : 1960 Arrival Date: 01/13/2018 Time: 00:13 Bed 17 Private MD: ED Physician Donnie De La O HPI: 01/13 01:37 This 57 yrs old Male presents to ER via EMS with complaints of shortness of snw breath. 01:37 Pt recently dc'd from hospital for respiratory distress. Labs consistent with prior snw admission 2 days ago. Pt with nonproductive cough, Dialysis yesterday. No fever. SpO2 93-96%. Onset: The symptoms/episode began/occurred suddenly, and became worse. Severity of symptoms: At their worst the symptoms were moderate. The patient has experienced similar episodes in the past, multiple times. The patient has been recently seen by a physician:. Historical: - Allergies: 00:31 No Known Allergies; rk2 - PMHx: 00:31 Anxiety; Diabetes - IDDM; Dialysis; ESRD; rk2 - Immunization history:: Pneumococcal vaccine status is unknown, Flu vaccine status is unknown. - Social history:: Smoking status: Patient uses tobacco products. ROS: 01:37 Eyes: Negative for injury, pain, redness, and discharge, ENT: Negative for injury, snw pain, and discharge, Neck: Negative for injury, pain, and swelling, Cardiovascular: Negative for chest pain, palpitations, and edema. 01:37 Abdomen/GI: Negative for abdominal pain, nausea, vomiting, diarrhea, and constipation, Back: Negative for injury and pain, : Negative for injury, bleeding, discharge, and swelling, MS/Extremity: Negative for injury and deformity, Skin: Negative for injury, rash, and discoloration, Neuro: Negative for headache, weakness, numbness, tingling, and seizure. 01:37 Constitutional: Positive for fatigue, malaise. 01:37 Respiratory: Positive for cough, shortness of breath. Exam: 01:37 Head/Face: Normocephalic, atraumatic. Eyes: Pupils equal round and reactive to light, snw extra-ocular motions intact. Lids and lashes normal. Conjunctiva and sclera are non-icteric and not injected. Cornea within normal limits. Periorbital areas with no swelling, redness, or edema. ENT: Nares patent. No nasal discharge, no septal abnormalities noted. Tympanic membranes are normal and external auditory canals are clear. Oropharynx with no redness, swelling, or masses, exudates, or evidence of obstruction, uvula midline. Mucous membranes moist. Neck: Trachea midline, no thyromegaly or masses palpated, and no cervical lymphadenopathy. Supple, full range of motion without nuchal rigidity, or vertebral point tenderness. No Meningismus. Chest/axilla: Normal chest wall appearance and motion. Nontender with no deformity. No lesions are appreciated. Cardiovascular: Regular rate and rhythm with a normal S1 and S2. No gallops, murmurs, or rubs. Normal PMI, no JVD. No pulse deficits. 01:37 Skin: Warm, dry with normal turgor. Normal color with no rashes, no lesions, and no evidence of cellulitis. 01:37 Neuro: Awake and alert, GCS 15, oriented to person, place, time, and situation. 01:37 Constitutional: The patient appears awake, anxious, uncomfortable. 01:37 Respiratory: the patient does not display signs of respiratory distress, Respirations: no acute changes, Breath sounds: bronchial sounds, + upper airway congestion. nonproductive cough. 01:37 Abdomen/GI: Bowel sounds: hyperactive, Palpation: mild abdominal tenderness, in all quadrants, Rectal exam: Stool: brown, osman, cleansed of play dough like stool. 01:37 Back: + quadriplegia, pt moans with lying on back. 01:37 Musculoskeletal/extremity: Exam is negative for acute changes. 01:37 Psych: Behavior/mood is anxious, Oriented to person, place. Vital Signs: 00:29 BP 180 / 90; Pulse 59; Resp 18; Temp 97.6; Pulse Ox 93% on R/A; rk2 MDM: 00:33 Patient medically screened. snw 01:49 Data reviewed: vital signs, nurses notes. Data interpreted: Pulse oximetry: on room air snw is 93 %. Interpretation: acceptable. Counseling: I had a detailed discussion with the patient and/or guardian regarding: the historical points, exam findings, and any diagnostic results supporting the discharge/admit diagnosis, the presence of at least one elevated blood pressure reading (>120/80) during this emergency department visit, lab results, radiology results, the need for outpatient follow up, to return to the emergency department if symptoms worsen or persist or if there are any questions or concerns that arise at home. Special discussion: I have referred the patient to see his PCP for further evaluation of high blood pressure. Based on the history and exam findings, there is no indication for further emergent testing or inpatient evaluation. I discussed with the patient/guardian the need to see the primary care provider for further evaluation of the symptoms. 01/13 00:36 Order name: Basic Metabolic Panel sn 01/13 00:36 Order name: BNP snw 01/13 00:36 Order name: CBC with Diff snw 01/13 00:36 Order name: Ckmb sn 01/13 00:36 Order name: CPK sn 01/13 00:36 Order name: LFT's sn 01/13 00:36 Order name: Magnesium snw 01/13 00:36 Order name: PT-INR on license of [facility] 01/13 00:36 Order name: Ptt, Activated snw 01/13 00:36 Order name: Troponin (emerg Dept Use Only) on license of [facility] 01/13 01:17 Order name: CBC with Automated Diff; Complete Time: 01:33 EDMS 01/13 01:21 Order name: Basic Metabolic Panel; Complete Time: 01:33 EDMS 01/13 01:25 Order name: Troponin (Emerg Dept Use Only); Complete Time: 01:26 EDMS 01/13 01:27 Order name: Liver (Hepatic) Function; Complete Time: 01:33 EDMS 01/13 00:36 Order name: XRAY Chest (1 view) on license of [facility] 01/13 00:36 Order name: EKG; Complete Time: 00:37 snw 01/13 00:36 Order name: Cardiac monitoring; Complete Time: 00:58 snw 01/13 00:36 Order name: EKG - Nurse/Tech; Complete Time: 00:58 snw 01/13 00:36 Order name: IV Saline Lock; Complete Time: 00:58 snw 01/13 00:36 Order name: Labs collected and sent; Complete Time: 00:58 snw 01/13 00:36 Order name: O2 Per Protocol; Complete Time: 00:58 snw 01/13 00:36 Order name: O2 Sat Monitoring; Complete Time: 00:58 snw 01/13 01:27 Order name: Creatine Phosphokinase; Complete Time: 01:33 EDMS 01/13 01:27 Order name: Magnesium; Complete Time: 01: EDMS 01/13 01:27 Order name: Protime (+INR); Complete Time: 01: EDMS 01/13 01:27 Order name: PTT, Activated Partial Thromb; Complete Time: 01: EDMS 01/13 01:29 Order name: CKMB Creatine Kinase MB; Complete Time: 01: EDMS 01/13 01:29 Order name: CBC Smear Scan; Complete Time: 01: EDMS 01/13 01:29 Order name: BNP B-Type Natriuretic Peptide; Complete Time: : EDMS Administered Medications: 01:40 Drug: Albuterol 2.5 mg Route: Inhalation; rk2 Disposition: 01/13/18 01:48 Discharged to Home. Impression: Chronic obstructive pulmonary disease, unspecified. - Condition is Stable. - Discharge Instructions: Chronic Obstructive Pulmonary Disease, Dialysis Diet, Anyq-jn-Wqbt. - Prescriptions for Albuterol Sulfate 90 mcg/actuation - inhale 1-2 puff by INHALATION route every 4-6 hours; 1 Inhaler. - Medication Reconciliation Form, Thank You Letter, Antibiotic Education, Prescription Opioid Use form. - Follow up: Private Physician; When: Tomorrow; Reason: Recheck today's complaints, Continuance of care, Re-evaluation by your physician. Follow up: Emergency Department; When: As needed; Reason: Worsening of condition. Addendum: 01/15/2018 07:06 Co-signature as Attending Physician, Donnie De La O MD I agree with the assessment and w a plan of care. Signatures: Dispatcher [employer] [facility] Ronel Galvan, CONVEYOR FEEDER OFFBEARER-C CONVEYOR FEEDER OFFBEARER-Csnw Jennifer Sawyer RN Donnie Hector MD MD wa Kidder, Rhonda RN RN rk2
--- NOTE | 2018-01-13 05:12 | ER ---
Nurse's Notes [facility] Name: Federico Martinez Age: 57 yrs Sex: Male : 1960 Arrival Date: 01/13/2018 Time: 00:13 Bed 17 Private MD: Diagnosis: Chronic obstructive pulmonary disease, unspecified Presentation: 01/13 00:23 Presenting complaint: EMS states: Pt. comes from [facility] by EMS, c/o SOB. Per EMS rk2 pt called out to nursing staff stating that he was "going to ", pt. was given ativan. Pt. O2 sats dropped and EMS called. Pt. was receiving neb tx when EMS arrived. O2 sats good \\T\\ that time. Transition of care: patient was received from another setting of care (long-term care facility). Onset of symptoms was January 13, 2018. Care prior to arrival: None. 00:23 Method Of Arrival: EMS: [facility] rk2 00:23 Acuity: CHARLES 3 rk2 Triage Assessment: 00:31 General: Appears uncomfortable, Behavior is calm, cooperative. rk2 Historical: - Allergies: 00:31 No Known Allergies; rk2 - PMHx: 00:31 Anxiety; Diabetes - IDDM; Dialysis; ESRD; rk2 - Immunization history:: Pneumococcal vaccine status is unknown, Flu vaccine status is unknown. - Social history:: Smoking status: Patient uses tobacco products. Screenin:02 Abuse screen: Denies threats or abuse. Nutritional screening: No deficits noted. rk2 Tuberculosis screening: No symptoms or risk factors identified. Fall Risk IV access (20 points). Ambulatory Aid- None/Bed Rest/Nurse Assist (0 pts). Assessment: 00:37 Reassessment: Last received dialysis Sunday. rk2 01:03 General: Appears in no apparent distress. well developed, well nourished, Behavior is rk2 cooperative. Pain: Denies pain. Neuro: Level of Consciousness is awake, obeys commands, Oriented to person, place, situation. Cardiovascular: Rhythm is sinus bradycardia. Respiratory: Airway is patent Respiratory effort is even, unlabored, Respiratory pattern is regular, symmetrical. Derm: Skin is pink, warm \\T\\ dry. 01:46 Reassessment: Pt. resting in room, family arrived. Pt. receiving breathing tx... rk2 appears to be in no obvious distress. No needs voiced \\T\\ this time. Vital Signs: 00:29 BP 180 / 90; Pulse 59; Resp 18; Temp 97.6; Pulse Ox 93% on R/A; rk2 ED Course: 00:13 Patient arrived in ED. rk2 00:22 Malika Hobbs RN is Primary Nurse. rk2 00:26 Triage completed. rk2 00:32 Ronel Galvan F[facility]-C [facility]. snw 00:33 Donnie De La O MD is Attending Physician. snw 00:59 Initial lab(s) drawn, by me, sent to lab. EKG done, by ED staff, reviewed by Ronel VALERIO. Inserted saline lock: 18 gauge in right antecubital area, using aseptic technique. Blood collected. 01:01 X-ray completed. Portable x-ray completed in exam room. Patient tolerated procedure jw2 poorly. 01:02 Patient has correct armband on for positive identification. Placed in gown. Bed in low rk2 position. Call light in reach. Side rails up X2. 03:20 No provider procedures requiring assistance completed. Patient did not have IV access fc during this emergency room visit. Administered Medications: 01:40 Drug: Albuterol 2.5 mg Route: Inhalation; rk2 Outcome: 01:48 Discharge ordered by . snw 03:20 Discharged to snf. Transfer form completed. fc 03:20 Condition: good 03:20 Discharge instructions given to patient, family, EMS, Instructed on discharge instructions, follow up and referral plans. medication usage, Demonstrated understanding of instructions, follow-up care, medications, Prescriptions given X 1. 04:58 Patient left the ED. fc Signatures: Ronel Galvan FNP-C FNP-Csnw Jennifer Sawyer RN RN Aleyda Pineda jw2 Jovon Valdes Rhonda, LIZABETH RN [id number]
[2018-01-13 06:04] VITALS: BP 180/90; TEMP 97.6; O2SAT 93
--- NOTE | 2018-01-13 09:02 | RAD REPORT ---
EXAM DESCRIPTION: RAD - Chest Single View - 01/13/2018 1:03 am CLINICAL HISTORY: Shortness of breath, altered mental status COMPARISON: January 10 TECHNIQUE: AP portable chest image was obtained 0054 hours . FINDINGS: Double-lumen dialysis catheter remains in place. Mild cardiomegaly is present but less pro nounced than seen on the comparison study. Vasculature and lung markings are prominent, more so on th e right. No pneumothorax or large pleural fluid collection. Trachea remains midline. No gross bony ab normality seen. No acute aortic findings suspected. IMPRESSION: Failure or volume overload pattern is present. Cardiomegaly is less pronounced than seen on the comparison.
== END 2018-01-13 04:58 | disposition home or self-care (01) ==
LOC: ER 00:10
DX: J44.9 Chronic obstructive pulmonary disease, unspecified (principal); E11.22 Type 2 diabetes mellitus with diabetic chronic kidney disease; N18.6 End stage renal disease; Z99.2 Dependence on renal dialysis; Z72.0 Tobacco use
CPT/HCPCS: 36415; 71045; 80048; 80076; 82550; 82553; 83735; 83880; 84484; 85025; 85610; 85730; 93005; 99285

== ENCOUNTER 2018-02-01 10:44 | Day surgery (SDC) | payer MEDICAID ==
--- OUTSIDE RECORDS SUMMARY | 2018-02-01 10:47 | XMS REPORT | Clinical Summary ---
:1960 Author Organization [facility] Address [address] [place] [address] Phone Care Team Providers Name Role Phone Unavailable Primary Care Provider Unavailable Allergies No Known Allergies Current Medications Prescription Sig. Disp. Refills Start Date End Date Status donepezil (ARICEPT) 10 Take 10 mg by mouth Active MG tablet nightly. atorvastatin (LIPITOR) Take 10 mg by mouth Active 10 MG tablet daily. venlafaxine Take 150 mg by mouth Active (EFFEXOR-XR) 150 MG 24 2 (two) times daily hr capsule . ferrous gluconate Take 324 mg by mouth Active (FERGON) 324 MG tablet daily with breakfast. zolpidem (AMBIEN) 5 MG Take 5 mg by mouth Active tablet every night as needed for Insomnia. pramipexole (MIRAPEX) Take 0.25 mg by Active 0.25 MG tablet mouth nightly. multivitamin Take 1 tablet by Active (MULTIVITAMIN) per mouth daily. tablet cholecalciferol, Take 5,000 Units by Active vitamin D3, 2,000 unit mouth daily . Cap amLODIPine (NORVASC) Take 10 mg by mouth Active 10 MG tablet daily. acetaminophen Take 500 mg by mouth Active (TYLENOL) 500 MG every 6 (six) hours tablet as needed for Pain. ALPRAZolam (XANAX) 2 Take 1 mg by mouth Active MG tablet daily as needed for Sleep (before dialysis). lurasidone 80 mg Tab Take 100 mg by mouth Active nightly . nitroglycerin Place 0.4 mg under Active (NITROSTAT) 0.4 MG SL the tongue every 5 tablet (five) minutes as needed for Chest pain Put 1 pill under tongue every 5min as needed for chest pain.No more than 3 doses in 15min.Call 911 if pain is unrelieved 5min after 1st dose . HYDROcodone-acetaminop Take 1 tablet by Active hen (NORCO 7.5-325) mouth every 6 (six) 7.5-325 mg per hours as needed for tabletIndications: Pain. Pain pantoprazole Take 40 mg by mouth Active (PROTONIX) 40 MG daily. tabletIndications: gastroesophageal reflux disease ranolazine (RANEXA) Take 500 mg by mouth Active 500 MG 12 hr tablet 2 (two) times daily Two tabs . ziprasidone (GEODON) Take 20 mg by mouth Active 20 MG capsule 2 (two) times daily with breakfast and dinner. fentaNYL (DURAGESIC) Place 1 patch onto Active 25 mcg/hr patch the skin every third day. doxazosin (CARDURA) 8 Take 8 mg by mouth Active MG tablet nightly. balsam reta-castor oil Apply 1 application 0 12/21/2016 Active (VENELEX) [id number] topically 2 (two) mg/gram Oint times daily as needed (wound care). epoetin mendy Inject 2 mLs (8,000 1 mL 0 12/22/2016 Active (EPOGEN,PROCRIT) 4,000 Units total) unit/mL injection subcutaneously 3 (three) times a week after dialysis. heparin injection Inject 1 mL (5,000 1 mL 0 12/21/2016 Active 5,000 units/mL for DVT Units total) prophylaxis/dialysis subcutaneously every lock/IV bolus 12 (twelve) hours. gabapentin (NEURONTIN) Take 1 capsule (100 0 12/21/2016 Active 100 MG capsule mg total) by mouth 2 (two) times daily. losartan (COZAAR) 50 Take 1 tablet (50 mg 0 12/21/2016 Active MG tablet total) by mouth 2 (two) times daily. insulin 70/30, insulin Inject 7 Units 10 mL 0 12/21/2016 Active NPH-insulin regular, subcutaneously 2 (HUMULIN 70/30,NOVOLIN (two) times daily 70/30) 100 unit/mL before meals. (70-30) injectionIndications: Diabetes Mellitus hydrALAZINE Take 1 tablet (100 0 12/21/2016 Active (APRESOLINE) 100 MG mg total) by mouth 3 tablet (three) times daily. carvedilol (COREG) 25 Take 1 tablet (25 mg 0 12/21/2016 12/21/2017 MG tablet total) by mouth 2 (two) times daily. ipratropium-albuterol Take 3 mLs by 0 12/21/2016 12/16/2017 (DUO-NEB) 0.5 mg-3 nebulization every 6 mg(2.5 mg base)/3 mL (six) hours as nebulizer solution needed for Wheezing for up to 360 days. vancomycin (VANCOCIN) Inject 250 mLs 0 12/25/2016 02/09/2017 IVPB 1.25 g in sodium (1,250 mg total) chloride 0.9% (NS) 250 intravenously 3 mL (three) times a week after dialysis for 46 days. 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 Paraplegic spinal paralysis ([facility]) 12/26/2016 Sacral decubitus ulcer 12/26/2016 ESRD on hemodialysis ([facility]) 12/26/2016 Acute bilateral low back pain without sciatica 11/30/2016 Back pain 11/29/2016 Complications, dialysis, catheter, mechanical ([facility]) 04/06/2016 Angina effort ([facility]) 09/04/2014 CAD (coronary artery disease) 09/04/2014 Social History Tobacco Use Types Packs/Day Years Used Date Former Smoker 0 Alcohol Use Drinks/Week oz/Week Comments No Sex Assigned at Date Recorded Not on file Last Filed Vital Signs Not on file Plan of Treatment Not on file Implants Implanted Type Area Rat Trapper Device Expiration Model / Identifier Date Serial / Lot Infusion Set Bone Infuseii Lg [id number] - [id number] Bone N/A: MEDTRONIC: SPINAL 08/22/2018 [id number] / Implanted: Qty: 1 on 12/12/2016 by Eduardo Ruggiero MD Spine BIOLOGICS / Lumbar [id number] Matrix Floseal Hemo W/O Ndl 10 [id number] - [id number] Cement/Fi N/A: MA: BIOSCI 04/20/2019 [id number] / Implanted: Qty: 2 on 12/12/2016 by Eduardo Ruggiero MD ller/Adhe Spine / sive Lumbar [id number] Bone Putty Stimulan [facility] 620-010 - [id number] Cement/Fi N/A: BIOCOMPOSITES 08/21/2019 [id number] / Implanted: Qty: 1 on 12/12/2016 by Eduardo Ruggiero MD ller/Adhe Spine / sive Lumbar [id number]/[id number] Connector Set Screw Joints N/A: MEDTRONIC [id number] / Implanted: Qty: 1 on 12/12/2016 by Eduardo Ruggiero MD Spine / Lumbar Scr Mas 8.5x90 [id number] - [id number] Spine N/A: MEDTRONIC:SPINE: [id number] / Implanted: Qty: 1 on 12/12/2016 by Eduardo Ruggiero MD Spine SOFAMOR DANEK / Lumbar [id number] Ballast Mas 8.5x80 Spine N/A: MEDTR[employer]IC [id number] / Implanted: Qty: 1 on 12/12/2016 by Eduardo Ruggiero MD Spine / Lumbar [id number] Atco [id number] Spine N/A: MEDTR[employer]IC [id number] / Implanted: Qty: 2 on 12/12/2016 by Eduardo Ruggiero MD Spine / Lumbar [id number] Connector 20mm Spine N/A: MEDTR[employer]IC [id number] / Implanted: Qty: 1 on 12/12/2016 by Eduardo Ruggiero MD Spine / Lumbar Medtronic Sofamor Danek 10cc Sprinal Graft Spine N/A: MED[employer]IC 2017 [id number] / Implanted: Qty: 1 on 12/12/2016 by Eduardo Ruggiero MD Spine [id number] / Lumbar Medtronic Sofamor Daek Orthoblend Small 10cc Spine N/A: MED[employer]IC 2017 [id number] / Implanted: Qty: 1 on 12/12/2016 by Eduardo Ruggiero MD Spine [id number] / Lumbar Medtronic Sofarmor Danek Orthoblend Small 10cc Spine N/A: MED[employer]IC [id number] / Implanted: Qty: 1 on 12/12/2016 by Eduardo Ruggiero MD Spine [id number] / Lumbar Screw Set Ti Ns Brk Off 5.5 - [id number] Spine N/A: MEDTR[employer]IC:SPINAL [id number] / Implanted: Qty: 6 on 12/12/2016 by Eduardo Ruggiero MD Spine BIOLOGICS / Lumbar [id number] Screw [facility] Cc 7.5x50 [id number] - [id number] Spine N/A: MEDTR[employer]IC:SPINAL [id number] / Implanted: Qty: 2 on 12/12/2016 by Eduardo Ruggiero MD Spine BIOLOGICS / Lumbar [id number] Screw [facility] Cc 7.5 X 45 [id number] - [id number] Spine N/A: [employer]IC:SPINAL [id number] / Implanted: Qty: 2 on 12/12/2016 by Eduardo Ruggiero MD Spine BIOLOGICS / Lumbar [id number] Results Not on fileafter 01/31/2017
--- OUTSIDE RECORDS SUMMARY | 2018-02-01 10:51 | XMS REPORT ---
:1960 [facility] Address [address] [place] [address] [address]. [address] [place] [address] Care Team Providers Name Role Phone Keo [...] Reference Range Comments METHYLMALONIC ACID, SERUM (test cxgl=863671) 603 nmol/L 0-378 PERFORMED AT: [facility] [id number] PEARL FISHERMAN: Donnie Youssef MD PHONE: [phone], [id number] 06:50:00To start 15mins after 1st cultureSpecimen: BloodCollected: 2016 01:33 Status: Final Last Updated: 06/21/2017 06:49 (1) To start 15mins after 1st culture Culture Result (Final) (Final) No Growth After 5 DaysCULTURE, [id number] 06:50:00Specimen: BloodCollected: 06/16/2017 01: 20 Status: Final Last Updated: 06/21/2017 06:49 Culture Result (Final) ( Final) No Growth After 5 [id number] 09:05:00 Test Item Value Reference Range Comments [...] mL/min/1.73m\\S\\2 EGFR if Non- 17 Estimated Glomerular Bhutanese (test mL/min/1.73m\\S\\2 Filtration Rate (eGFR) code=EGFRNA) Reference [...] of chronic kidney failure. CBC WITH AUTO [id number] 08:50:00 Test Item Value Reference Range Comments [...] code=IG%) 0.7 % 0.0-0.4 CBC WITH AUTO [id number] 01:49:00 Test Item Value Reference Range Comments [...] code=IG%) 0.9 % 0.0-0.4 CBC WITH AUTO [id number] 20:08:00 Test Item Value Reference Range Comments [...] code=IG%) 0.7 % 0.0-0.4 CBC WITH AUTO [id number] 13:58:00 Test Item Value Reference Range Comments [...] 1.0-3.0 IG% (test code=IG%) 0.7 % 0.0-0.4 [id number] 09:14:00 Test Item Value Reference Range Comments [...] mL/min/1.73m\\S\\2 EGFR if Non- 16 Estimated Glomerular Bhutanese (test mL/min/1.73m\\S\\2 Filtration Rate (eGFR) code=EGFRNA) Reference [...] of chronic kidney failure. CBC WITH AUTO [id number] 09:05:00 Test Item Value Reference Range Comments [...] code=IG%) 0.7 % 0.0-0.4 CBC WITH AUTO [id number] 02:17:00 Test Item Value Reference Range Comments [...] code=IG%) 0.7 % 0.0-0.4 CBC WITH AUTO [id number] 20:02:00 Test Item Value Reference Range Comments [...] code=IG%) 0.8 % 0.0-0.4 CBC WITH AUTO [id number] 14:17:00 Test Item Value Reference Range Comments [...] 1.0-3.0 IG% (test code=IG%) 0.9 % 0.0-0.4 [id number] 08:47:00 Test Item Value Reference Range Comments Magnesium (test code=MG) 1.9 mg/dl 1.6-2.3 [id number] 08:47:00 Test Item Value Reference Range Comments [...] mL/min/1.73m\\S\\2 EGFR if Non- 17 Estimated Glomerular Bhutanese (test mL/min/1.73m\\S\\2 Filtration Rate (eGFR) code=EGFRNA) Reference [...] of chronic kidney failure. CBC WITH AUTO [id number] 08:22:00 Test Item Value Reference Range Comments [...] code=IG%) 0.8 % 0.0-0.4 CBC WITH AUTO [id number] 03:42:00 Test Item Value Reference Range Comments [...] on ############### was changed to 1 by [id number] on 06/17/2017 03:42 Neutrophils (test 68 % 42-75 The value no value code=NEUTR) originally released by on ############### was changed to 68 by [id number] on 06/17/2017 03:42 Lymphocytes (test 16 % 13-42 The value no value code=LYMPH) originally released by on ############### was changed to 16 by [id number] on 06/17/2017 03:42 Monocytes (test 11 % 4-14 The value no value code=MONOS) originally released by on ############### was changed to 11 by [id number] on 06/17/2017 03:42 Eosinophils (test 3 % 1-3 The value no value code=EOS) originally released by on ############### was changed to 3 by [id number] on 06/17/2017 03:42 Basophils (test 1 % 0-1 The value no value code=BASO) originally released by on ############### was changed to 1 by [id number] on 06/17/2017 03:42 RBC Morphology (test Anisocytosis The value no value code=RBCMOR) Hypochromic originally released by on ############### was changed to Anisocytosis Hypochromic by [id number] on 06/17/2017 03:42 Platelet Morphology Giant platelets The value no value (test code=PLTMORPH) originally released by on ############### was changed to Giant platelets by [id number] on 06/17/2017 03:42 CBC WITH AUTO [id number] 19:54:00 Test Item Value Reference Range Comments [...] code=IG%) 0.8 % 0.0-0.4 CBC WITH AUTO [id number] 14:30:00 Test Item Value Reference Range Comments [...] code=IG%) 1.0 % 0.0-0.4 CBC WITH AUTO [id number] 07:35:00 Test Item Value Reference Range Comments [...] code=IG%) 1.2 % 0.0-0.4 HEP B SURFACE [id number] 07:14:00 Test Item Value Reference Range Comments [...] code=HBSAG) Negative (qualifier Negative value) TYPE & [id number] 04:15:00 Test Item Value Reference Range Comments ABO Blood Type (test code=ABO) O Rh (test code=RH) Positive Antibody Screen (test code=ABSCR) Negative Negative ARMBAND# (test code=ARMBAND) [id number] PRO-BNP(B-Type Natriuretic Peptide)2017-06-16 03:42:00 Test Item Value Reference Range Comments Pro-BNP(B-Peptide) 56315 pg/ml 0-125 THE METHODOLOGY FOR DETECTION OF [...] TIBC (test code=TIBC) 161 ug/dl 178-500 B12, [id number] 03:32:00 Test Item Value Reference Range Comments B12 (test code=B12) 717 pg/ml 239-941 [id number] 03:32:00 Test Item Value Reference Range Comments Folic Acid (test code=FOLIC) 5.35 ng/ml 2.76-20.00 IRON [id number] 03:32:00 Test Item Value Reference Range Comments Iron (test code=FETOT) 33 ug/dl 20-149 TIBC (test code=TIBC) 161 ug/dl 178-500 Iron Saturation (test code=FESAT) 20 % 16-62 [id number] 03:05:00 Test Item Value Reference Range Comments [...] (test code=BGCTHB) 9.6 gm/dl 11.5-17.4 O2Hb (test code=PLQY4AH) 94.7 % 95.0-99.0 COHb (test code=BGFCOHB) <2.8 [...] Notified (test code=BGTMNOTIFIED) 03:03 O2 Device (test code=[id number]) ROOM AIR Instrument ID (test code=BGINSTRID) [id number] Reported By (test code=BGREPORTEDBY) MAVIS LUCY GLYCOSALATED [id number] 02:39:00 Test Item Value Reference Range Comments Hemoglobin A1C (test 5.78 % 4.3-6.0 code=GLYCO) Mean Plasma Glucose (test 128 mg/dl 90-180 WHEN TEST RESULTS FOR A1C code=MPG) EXCEED 14.0, THE LINEAR LIMIT OF THE INSTRUMENT, THE CALCULATED RESULT FOR THE MEAN GLUCOSE IS NOT RELIABLE. CORONARY [id number] 02:22:00 Test Item Value Reference Range Comments [...] vLDL (test code=VLDL) 16 mg/dl 30-60 VANCOMYCIN, [id number] 02:19:00 Test Item Value Reference Range Comments Vancomycin, Trough (test 7.7 ug/ml 15.0-20.0 05/13/2009 Change in Therapeutic code=VANCT) Range, for Trough Level, has been implemented per P&T committee. INTERPRETATION GUIDE: CONSIDER SENSITIVITY REPORT IF NGUYEN IS=1 THERAPEUTIC RANGE IS 15-20 ug/ml IF NGUYEN IS > OR=2 CONSIDER ALTERNATE THERAPY [id number] 02:05:00 Test Item Value Reference Range Comments [...] mL/min/1.73m\\S\\2 EGFR if Non- 23 Estimated Glomerular Bhutanese (test mL/min/1.73m\\S\\2 Filtration Rate (eGFR) code=EGFRNA) Reference Intervals Decision Points for 18 years and older and average body mass: >=60 Does not exclude kidney disease. 30 - 59 Suggests moderate chronic kidney disease and indicates the need for further investigation including assessment of proteinuria and cardiovascular factors. < 30 Usually indicates a need for referral for assessment and management of chronic kidney failure. [id number] 02:05:00 Test Item Value Reference Range Comments Magnesium (test code=MG) 1.9 mg/dl 1.6-2.3 CBC WITH AUTO [id number] 02:03:00 Test Item Value Reference Range Comments [...] code=IG%) 0.9 % 0.0-0.4 AFB CULTURE + [id number] 12:29:00 Test Item Value Reference Range Comments CULTURE (BEAKER) (test No acid-fast bacilli isolated jesm=9526) in 42 days AFB SMEAR (BEAKER) (test No acid fast bacilli seen xhba=083) AFB CULTURE + [id number] 12:28:00 Test Item Value Reference Range Comments CULTURE (BEAKER) (test No acid-fast bacilli isolated gqzn=9864) in 42 days AFB SMEAR (BEAKER) (test No acid fast bacilli seen dixi=978) FUNGUS CULTURE + [id number] 17:13:00 Test Item Value Reference Range Comments CULTURE (BEAKER) (test No fungus isolated in 28 days nwwb=1024) FUNGUS SMEAR (BEAKER) (test No fungi seen cihn=9785) FUNGUS CULTURE + [id number] 17:13:00 Test Item Value Reference Range Comments CULTURE (BEAKER) (test No fungus isolated in 28 days hjsx=0067) FUNGUS SMEAR (BEAKER) (test No fungi seen rvoy=4354) FUNGUS CULTURE + [id number] 21:46:00 Test Item Value Reference Range Comments CULTURE (BEAKER) (test No fungus isolated in 28 days kmce=1303) FUNGUS SMEAR (BEAKER) (test No fungi seen brcn=7253) POCT-GLUCOSE [id number] 17:22:00 Test Item Value Reference Range Comments POC-GLUCOSE METER (BEAKER) 169 mg/dL 70-110 TESTED AT [address] (test qnfs=9651) [place] [id number] POCT-GLUCOSE [id number] 12:13:00 Test Item Value Reference Range Comments POC-GLUCOSE METER (BEAKER) 165 mg/dL 70-110 TESTED AT [address] (test ducd=3341) [place] [id number] POCT-GLUCOSE [id number] 07:48:00 Test Item Value Reference Range Comments POC-GLUCOSE METER (BEAKER) 132 mg/dL 70-110 TESTED AT [address] (test llar=2270) [place] [id number] BASIC METABOLIC [id number] 07:26:00 Test Item Value Reference Range Comments SODIUM (BEAKER) (test 133 meq/L 136-145 pitf=144) POTASSIUM (BEAKER) (test 4.2 meq/L 3.5-5.1 iuhx=077) CHLORIDE (BEAKER) (test 101 meq/L 98-107 lklv=085) CO2 (BEAKER) (test 22 meq/L 22-29 vsql=610) BLOOD UREA NITROGEN 38 mg/dL 7-21 (BEAKER) (test lzdy=545) CREATININE (BEAKER) (test 4.01 mg/dL 0.57-1.25 trhj=904) GLUCOSE RANDOM (BEAKER) 110 mg/dL 70-105 (test nnri=858) CALCIUM (BEAKER) (test 8.7 mg/dL 8.4-10.2 lpqc=806) EGFR (BEAKER) (test 15 mL/min/1.73 sq m ESTIMATED GFR IS NOT zcsv=9627) ACCURATE CREATININE CLEARANCE IN PREDICTING GLOMERULAR FILTRATION RATE. ESTIMATED GFR IS NOT APPLICABLE FOR DIALYSIS PATIENTS. [id number] 07:25:00 Test Item Value Reference Range Comments PHOSPHORUS (BEAKER) (test zefq=956) 4.4 mg/dL 2.3-4.7 [id number] 07:25:00 Test Item Value Reference Range Comments MAGNESIUM (BEAKER) (test gceb=651) 1.9 mg/dL 1.6-2.6 CBC W/PLT COUNT & AUTO [id number] 06:54:00 Test Item Value Reference Range Comments WHITE BLOOD CELL COUNT (BEAKER) (test gvhi=214) 12.6 K/ L 4.0-10.0 RED BLOOD CELL COUNT (BEAKER) (test dohe=826) 2.78 M/ L 4.20-5.80 HEMOGLOBIN (BEAKER) (test sozd=413) 8.3 GM/DL 13.0-16.8 HEMATOCRIT (BEAKER) (test zaxe=069) 25.1 % 40.0-50.0 MEAN CORPUSCULAR VOLUME (BEAKER) (test logk=871) 90.3 fL 82.0-98.0 MEAN CORPUSCULAR HEMOGLOBIN (BEAKER) (test 29.8 pg 27.0-33.0 ubue=031) MEAN CORPUSCULAR HEMOGLOBIN CONC (BEAKER) (test 33.1 GM/DL 32.0-36.0 eiuc=048) RED CELL DISTRIBUTION WIDTH (BEAKER) (test 16.1 % 10.3-14.2 izuy=992) PLATELET COUNT (BEAKER) (test vwrn=765) 290 K/CU MM 150-430 MEAN PLATELET VOLUME (BEAKER) (test lmlg=457) 7.2 fL 6.5-10.5 NUCLEATED RED BLOOD CELLS (BEAKER) (test 0 /100 WBC 0-0 hjxt=192) NEUTROPHILS RELATIVE PERCENT (BEAKER) (test 74 % wwsw=820) LYMPHOCYTES RELATIVE PERCENT (BEAKER) (test 15 % hmxb=773) MONOCYTES RELATIVE PERCENT (BEAKER) (test 9 % zyln=326) EOSINOPHILS RELATIVE PERCENT (BEAKER) (test 2 % vqlr=067) BASOPHILS RELATIVE PERCENT (BEAKER) (test 0 % yeda=124) NEUTROPHILS ABSOLUTE COUNT (BEAKER) (test 9.30 K/ L 1.80-8.00 jrpf=274) LYMPHOCYTES ABSOLUTE COUNT (BEAKER) (test 1.89 K/ L 1.48-4.50 iwor=887) MONOCYTES ABSOLUTE COUNT (BEAKER) (test 1.14 K/ L 0.00-1.30 qmyi=479) EOSINOPHILS ABSOLUTE COUNT (BEAKER) (test 0.26 K/ L 0.00-0.50 ljmn=892) BASOPHILS ABSOLUTE COUNT (BEAKER) (test 0.05 K/ L 0.00-0.20 bokn=403) 0.00POCT-GLUCOSE [id number] 22:31:00 Test Item Value Reference Range Comments POC-GLUCOSE METER (BEAKER) 133 mg/dL 70-110 TESTED AT [address] (test vzis=0211) [place] [address] POCT-GLUCOSE [id number] 17:17:00 Test Item Value Reference Range Comments POC-GLUCOSE METER (BEAKER) 119 mg/dL 70-110 TESTED AT [address] (test wkhl=4545) [place] [address] POCT-GLUCOSE [id number] 11:43:00 Test Item Value Reference Range Comments POC-GLUCOSE METER (BEAKER) 175 mg/dL 70-110 TESTED AT [address] (test mqsb=4183) [place] [address] CBC W/PLT COUNT & AUTO [id number] 08:39:00 Test Item Value Reference Range Comments WHITE BLOOD CELL COUNT (BEAKER) (test pjpl=262) 13.4 K/ L 4.0-10.0 RED BLOOD CELL COUNT (BEAKER) (test kguo=895) 2.91 M/ L 4.20-5.80 HEMOGLOBIN (BEAKER) (test bnnk=054) 8.6 GM/DL 13.0-16.8 HEMATOCRIT (BEAKER) (test dphp=122) 26.5 % 40.0-50.0 MEAN CORPUSCULAR VOLUME (BEAKER) (test glec=703) 91.1 fL 82.0-98.0 MEAN CORPUSCULAR HEMOGLOBIN (BEAKER) (test 29.4 pg 27.0-33.0 nswm=453) MEAN CORPUSCULAR HEMOGLOBIN CONC (BEAKER) (test 32.3 GM/DL 32.0-36.0 nmff=448) RED CELL DISTRIBUTION WIDTH (BEAKER) (test 16.0 % 10.3-14.2 inid=811) PLATELET COUNT (BEAKER) (test ncia=496) 282 K/CU MM 150-430 MEAN PLATELET VOLUME (BEAKER) (test vwhl=739) 7.7 fL 6.5-10.5 NUCLEATED RED BLOOD CELLS (BEAKER) (test 0 /100 WBC 0-0 otur=865) NEUTROPHILS RELATIVE PERCENT (BEAKER) (test 72 % bfcp=428) LYMPHOCYTES RELATIVE PERCENT (BEAKER) (test 16 % yvmi=590) MONOCYTES RELATIVE PERCENT (BEAKER) (test 10 % izub=029) EOSINOPHILS RELATIVE PERCENT (BEAKER) (test 2 % nvqc=495) BASOPHILS RELATIVE PERCENT (BEAKER) (test 1 % hqfl=313) NEUTROPHILS ABSOLUTE COUNT (BEAKER) (test 9.63 K/ L 1.80-8.00 mahy=271) LYMPHOCYTES ABSOLUTE COUNT (BEAKER) (test 2.15 K/ L 1.48-4.50 tgfj=717) MONOCYTES ABSOLUTE COUNT (BEAKER) (test 1.32 K/ L 0.00-1.30 tlrj=270) EOSINOPHILS ABSOLUTE COUNT (BEAKER) (test 0.23 K/ L 0.00-0.50 yuum=519) BASOPHILS ABSOLUTE COUNT (BEAKER) (test 0.10 K/ L 0.00-0.20 mrht=080) 0.000.730.001.460.000.000.000.000.000.000.000.000.000.000.000.00(MANUAL DIFFERENTIAL)2016-12-24 08:39:00 Test Item Value Reference Range Comments TOTAL COUNTED (BEAKER) (test xbgf=9181) POCT-GLUCOSE [id number] 07:47:00 Test Item Value Reference Range Comments POC-GLUCOSE METER (BEAKER) 139 mg/dL 70-110 TESTED AT [address] (test fzfh=7671) [facility] [address] BASIC METABOLIC [id number] 06:50:00 Test Item Value Reference Range Comments SODIUM (BEAKER) (test 133 meq/L 136-145 dbhv=780) POTASSIUM (BEAKER) (test 4.2 meq/L 3.5-5.1 yyjg=660) CHLORIDE (BEAKER) (test 102 meq/L 98-107 uuni=417) CO2 (BEAKER) (test 21 meq/L 22-29 htnf=076) BLOOD UREA NITROGEN 27 mg/dL 7-21 (BEAKER) (test ulak=903) CREATININE (BEAKER) (test 3.13 mg/dL 0.57-1.25 cevo=399) GLUCOSE RANDOM (BEAKER) 100 mg/dL 70-105 (test oirs=136) CALCIUM (BEAKER) (test 8.8 mg/dL 8.4-10.2 mgfe=890) EGFR (BEAKER) (test 21 mL/min/1.73 sq m ESTIMATED GFR IS NOT bvas=0437) ACCURATE CREATININE CLEARANCE IN PREDICTING GLOMERULAR FILTRATION RATE. ESTIMATED GFR IS NOT APPLICABLE FOR DIALYSIS PATIENTS. [id number] 06:41:00 Test Item Value Reference Range Comments PHOSPHORUS (BEAKER) (test mfte=087) 2.9 mg/dL 2.3-4.7 [id number] 06:41:00 Test Item Value Reference Range Comments MAGNESIUM (BEAKER) (test ojvj=756) 1.7 mg/dL 1.6-2.6 POCT-GLUCOSE [id number] 21:52:00 Test Item Value Reference Range Comments POC-GLUCOSE METER (BEAKER) 97 mg/dL 70-110 TESTED AT [address] (test cnyr=0684) [facility] [address] POCT-GLUCOSE [id number] 17:28:00 Test Item Value Reference Range Comments POC-GLUCOSE METER (BEAKER) 105 mg/dL 70-110 TESTED AT [address] (test litz=1818) [facility] [address] POCT-GLUCOSE [id number] 12:31:00 Test Item Value Reference Range Comments POC-GLUCOSE METER (BEAKER) 215 mg/dL 70-[address] [facility] [address] [facility] (test zoox=3534) [facility] [address] POCT-GLUCOSE [id number] 08:19:00 Test Item Value Reference Range Comments POC-GLUCOSE METER (BEAKER) 135 mg/dL 70-[address] [facility] [address] [facility] (test dekx=9362) [facility] [address] CBC W/PLT COUNT & AUTO [id number] 07:19:00 Test Item Value Reference Range Comments WHITE BLOOD CELL COUNT (BEAKER) (test xqxw=049) 15.0 K/ L 4.0-10.0 RED BLOOD CELL COUNT (BEAKER) (test fnsa=666) 3.04 M/ L 4.20-5.80 HEMOGLOBIN (BEAKER) (test dngl=719) 8.8 GM/DL 13.0-16.8 HEMATOCRIT (BEAKER) (test bauq=612) 27.3 % 40.0-50.0 MEAN CORPUSCULAR VOLUME (BEAKER) (test vxmx=459) 89.8 fL 82.0-98.0 MEAN CORPUSCULAR HEMOGLOBIN (BEAKER) (test 29.0 pg 27.0-33.0 pxjz=465) MEAN CORPUSCULAR HEMOGLOBIN CONC (BEAKER) (test 32.3 GM/DL 32.0-36.0 thhu=228) RED CELL DISTRIBUTION WIDTH (BEAKER) (test 17.0 % 10.3-14.2 ivmz=772) PLATELET COUNT (BEAKER) (test hjuh=823) 285 K/CU MM 150-430 MEAN PLATELET VOLUME (BEAKER) (test mszq=174) 7.2 fL 6.5-10.5 NUCLEATED RED BLOOD CELLS (BEAKER) (test 0 /100 WBC 0-0 clnf=613) NEUTROPHILS RELATIVE PERCENT (BEAKER) (test 77 % sqbu=520) LYMPHOCYTES RELATIVE PERCENT (BEAKER) (test 11 % heze=714) MONOCYTES RELATIVE PERCENT (BEAKER) (test 11 % eumf=057) EOSINOPHILS RELATIVE PERCENT (BEAKER) (test 1 % muxd=446) BASOPHILS RELATIVE PERCENT (BEAKER) (test 0 % raku=284) NEUTROPHILS ABSOLUTE COUNT (BEAKER) (test 11.50 K/ L 1.80-8.00 qgug=870) LYMPHOCYTES ABSOLUTE COUNT (BEAKER) (test 1.72 K/ L 1.48-4.50 tmdl=594) MONOCYTES ABSOLUTE COUNT (BEAKER) (test 1.59 K/ L 0.00-1.30 gzfa=816) EOSINOPHILS ABSOLUTE COUNT (BEAKER) (test 0.17 K/ L 0.00-0.50 drrg=974) BASOPHILS ABSOLUTE COUNT (BEAKER) (test 0.05 K/ L 0.00-0.20 pdkq=900) [id number] 06:41:00 Test Item Value Reference Range Comments PHOSPHORUS (BEAKER) (test inbz=786) 2.1 mg/dL 2.3-4.7 [id number] 06:41:00 Test Item Value Reference Range Comments MAGNESIUM (BEAKER) (test daht=905) 1.8 mg/dL 1.6-2.6 BASIC METABOLIC [id number] 06:41:00 Test Item Value Reference Range Comments SODIUM (BEAKER) (test 134 meq/L 136-145 iroh=761) POTASSIUM (BEAKER) (test 4.2 meq/L 3.5-5.1 dwes=180) CHLORIDE (BEAKER) (test 103 meq/L 98-107 rgex=535) CO2 (BEAKER) (test 23 meq/L 22-29 urwd=217) BLOOD UREA NITROGEN 18 mg/dL 7-21 (BEAKER) (test sshj=917) CREATININE (BEAKER) (test 2.20 mg/dL 0.57-1.25 bloe=119) GLUCOSE RANDOM (BEAKER) 105 mg/dL 70-105 (test mkhp=992) CALCIUM (BEAKER) (test 8.5 mg/dL 8.4-10.2 plvf=563) EGFR (BEAKER) (test 31 mL/min/1.73 sq m ESTIMATED GFR IS NOT hxkf=9587) ACCURATE CREATININE CLEARANCE IN PREDICTING GLOMERULAR FILTRATION RATE. ESTIMATED GFR IS NOT APPLICABLE FOR DIALYSIS PATIENTS. POCT-GLUCOSE [id number] 21:43:00 Test Item Value Reference Range Comments POC-GLUCOSE METER (BEAKER) 278 mg/dL 70-[address] [facility] [address] [facility] (test xkzq=7706) [facility] [address] POCT-GLUCOSE [id number] 18:42:00 Test Item Value Reference Range Comments POC-GLUCOSE METER (BEAKER) 177 mg/dL 70-[address] [facility] [address] [facility] (test oxfc=4965) [facility] [address] POCT-GLUCOSE [id number] 14:53:00 Test Item Value Reference Range Comments POC-GLUCOSE METER (BEAKER) 197 mg/dL 70-[address] [facility] [address] [facility] (test zpsz=8432) [facility] [address] CBC W/PLT COUNT & AUTO [id number] 12:20:00 Test Item Value Reference Range Comments WHITE BLOOD CELL COUNT (BEAKER) (test rjdz=812) 13.6 K/ L 4.0-10.0 RED BLOOD CELL COUNT (BEAKER) (test lplq=202) 2.85 M/ L 4.20-5.80 HEMOGLOBIN (BEAKER) (test ewle=659) 8.3 GM/DL 13.0-16.8 HEMATOCRIT (BEAKER) (test lrup=688) 25.8 % 40.0-50.0 MEAN CORPUSCULAR VOLUME (BEAKER) (test evzf=122) 90.6 fL 82.0-98.0 MEAN CORPUSCULAR HEMOGLOBIN (BEAKER) (test 29.3 pg 27.0-33.0 cbrt=656) MEAN CORPUSCULAR HEMOGLOBIN CONC (BEAKER) (test 32.3 GM/DL 32.0-36.0 tacy=687) RED CELL DISTRIBUTION WIDTH (BEAKER) (test 16.7 % 10.3-14.2 cwhq=969) PLATELET COUNT (BEAKER) (test elpa=789) 252 K/CU MM 150-430 MEAN PLATELET VOLUME (BEAKER) (test hpni=558) 7.4 fL 6.5-10.5 NUCLEATED RED BLOOD CELLS (BEAKER) (test 0 /100 WBC 0-0 fafy=962) NEUTROPHILS RELATIVE PERCENT (BEAKER) (test 75 % ndvb=599) LYMPHOCYTES RELATIVE PERCENT (BEAKER) (test 13 % aflt=319) MONOCYTES RELATIVE PERCENT (BEAKER) (test 10 % fkvx=721) EOSINOPHILS RELATIVE PERCENT (BEAKER) (test 2 % ybau=184) BASOPHILS RELATIVE PERCENT (BEAKER) (test 0 % emuk=916) NEUTROPHILS ABSOLUTE COUNT (BEAKER) (test 10.20 K/ L 1.80-8.00 bjeo=658) LYMPHOCYTES ABSOLUTE COUNT (BEAKER) (test 1.78 K/ L 1.48-4.50 qsmr=833) MONOCYTES ABSOLUTE COUNT (BEAKER) (test 1.32 K/ L 0.00-1.30 xaih=375) EOSINOPHILS ABSOLUTE COUNT (BEAKER) (test 0.22 K/ L 0.00-0.50 xmsl=561) BASOPHILS ABSOLUTE COUNT (BEAKER) (test 0.06 K/ L 0.00-0.20 xpet=576) 0.00POCT-GLUCOSE [id number] 08:28:00 Test Item Value Reference Range Comments POC-GLUCOSE METER (BEAKER) 132 mg/dL 70-[address] [facility] [address] [facility] (test aohw=9388) [facility] [address] BASIC METABOLIC [id number] 07:26:00 Test Item Value Reference Range Comments SODIUM (BEAKER) (test 131 meq/L 136-145 njfm=022) POTASSIUM (BEAKER) (test 4.2 meq/L 3.5-5.1 iejn=387) CHLORIDE (BEAKER) (test 98 meq/L 98-107 guat=771) CO2 (BEAKER) (test 24 meq/L 22-29 cjhw=655) BLOOD UREA NITROGEN 25 mg/dL 7-21 (BEAKER) (test pgey=992) CREATININE (BEAKER) (test 3.02 mg/dL 0.57-1.25 joks=769) GLUCOSE RANDOM (BEAKER) 103 mg/dL 70-105 (test honb=467) CALCIUM (BEAKER) (test 8.1 mg/dL 8.4-10.2 udto=172) EGFR (BEAKER) (test 21 mL/min/1.73 sq m ESTIMATED GFR IS NOT hrxp=0498) ACCURATE CREATININE CLEARANCE IN PREDICTING GLOMERULAR FILTRATION RATE. ESTIMATED GFR IS NOT APPLICABLE FOR DIALYSIS PATIENTS. [id number] 07:17:00 Test Item Value Reference Range Comments PHOSPHORUS (BEAKER) (test pxeh=838) 3.1 mg/dL 2.3-4.7 [id number] 07:17:00 Test Item Value Reference Range Comments MAGNESIUM (BEAKER) (test prsl=051) 1.8 mg/dL 1.6-2.6 CALCIUM, [id number] 05:38:00 Test Item Value Reference Range Comments CALCIUM IONIZED (BEAKER) (test qnhb=848) 1.09 mmol/L 1.12-1.27 PH, BLOOD (BEAKER) (test ynzu=0079) 7.45 POCT-GLUCOSE [id number] 21:45:00 Test Item Value Reference Range Comments POC-GLUCOSE METER (BEAKER) 121 mg/dL 70-110 TESTED AT [address] (test moil=2035) [facility] [address] POCT-GLUCOSE [id number] 16:48:00 Test Item Value Reference Range Comments POC-GLUCOSE METER (BEAKER) 157 mg/dL 70-110 TESTED AT [address] (test wmfi=4029) [facility] [address] POCT-GLUCOSE [id number] 12:16:00 Test Item Value Reference Range Comments POC-GLUCOSE METER (BEAKER) 247 mg/dL 70-110 TESTED AT [address] (test jcca=3757) [facility] [address] POCT-GLUCOSE [id number] 08:14:00 Test Item Value Reference Range Comments POC-GLUCOSE METER (BEAKER) 166 mg/dL 70-110 TESTED AT [address] (test zpsy=5370) [facility] [address] BASIC METABOLIC [id number] 07:58:00 Test Item Value Reference Range Comments SODIUM (BEAKER) (test 131 meq/L 136-145 rjnp=206) POTASSIUM (BEAKER) (test 3.9 meq/L 3.5-5.1 udbh=541) CHLORIDE (BEAKER) (test 99 meq/L 98-107 dycm=178) CO2 (BEAKER) (test 26 meq/L 22-29 btqr=563) BLOOD UREA NITROGEN 18 mg/dL 7-21 (BEAKER) (test pgta=843) CREATININE (BEAKER) (test 2.32 mg/dL 0.57-1.25 axkt=131) GLUCOSE RANDOM (BEAKER) 145 mg/dL 70-105 (test rnjq=670) CALCIUM (BEAKER) (test 8.1 mg/dL 8.4-10.2 sdzy=901) EGFR (BEAKER) (test 29 mL/min/1.73 sq m ESTIMATED GFR IS NOT cade=0712) ACCURATE CREATININE CLEARANCE IN PREDICTING GLOMERULAR FILTRATION RATE. ESTIMATED GFR IS NOT APPLICABLE FOR DIALYSIS PATIENTS. CBC W/PLT COUNT & AUTO [id number] 07:50:00 Test Item Value Reference Range Comments WHITE BLOOD CELL COUNT (BEAKER) (test vmml=084) 15.3 K/ L 4.0-10.0 RED BLOOD CELL COUNT (BEAKER) (test whac=337) 3.00 M/ L 4.20-5.80 HEMOGLOBIN (BEAKER) (test pnyk=504) 8.4 GM/DL 13.0-16.8 HEMATOCRIT (BEAKER) (test kzgb=509) 27.3 % 40.0-50.0 MEAN CORPUSCULAR VOLUME (BEAKER) (test bpqx=398) 90.9 fL 82.0-98.0 MEAN CORPUSCULAR HEMOGLOBIN (BEAKER) (test 28.0 pg 27.0-33.0 pcnx=067) MEAN CORPUSCULAR HEMOGLOBIN CONC (BEAKER) (test 30.8 GM/DL 32.0-36.0 prgd=595) RED CELL DISTRIBUTION WIDTH (BEAKER) (test 15.9 % 10.3-14.2 wwmk=746) PLATELET COUNT (BEAKER) (test vbri=390) 271 K/CU MM 150-430 MEAN PLATELET VOLUME (BEAKER) (test ehdb=897) 7.4 fL 6.5-10.5 NUCLEATED RED BLOOD CELLS (BEAKER) (test 0 /100 WBC 0-0 ilph=340) NEUTROPHILS RELATIVE PERCENT (BEAKER) (test 76 % zird=213) LYMPHOCYTES RELATIVE PERCENT (BEAKER) (test 14 % zezy=981) MONOCYTES RELATIVE PERCENT (BEAKER) (test 9 % ibqi=071) EOSINOPHILS RELATIVE PERCENT (BEAKER) (test 1 % xosy=139) BASOPHILS RELATIVE PERCENT (BEAKER) (test 0 % rvgv=257) NEUTROPHILS ABSOLUTE COUNT (BEAKER) (test 11.60 K/ L 1.80-8.00 qpcb=278) LYMPHOCYTES ABSOLUTE COUNT (BEAKER) (test 2.11 K/ L 1.48-4.50 jjap=929) MONOCYTES ABSOLUTE COUNT (BEAKER) (test 1.36 K/ L 0.00-1.30 sakx=222) EOSINOPHILS ABSOLUTE COUNT (BEAKER) (test 0.17 K/ L 0.00-0.50 ffen=703) BASOPHILS ABSOLUTE COUNT (BEAKER) (test 0.06 K/ L 0.00-0.20 zzjw=469) [id number] 07:24:00 Test Item Value Reference Range Comments PHOSPHORUS (BEAKER) (test oizo=604) 2.1 mg/dL 2.3-4.7 [id number] 07:24:00 Test Item Value Reference Range Comments MAGNESIUM (BEAKER) (test gyrk=119) 1.6 mg/dL 1.6-2.6 POCT-GLUCOSE [id number] 20:38:00 Test Item Value Reference Range Comments POC-GLUCOSE METER (BEAKER) 191 mg/dL 70-110 TESTED AT [address] (test agfv=9681) [place] [id number] POCT-GLUCOSE [id number] 17:32:00 Test Item Value Reference Range Comments POC-GLUCOSE METER (BEAKER) 229 mg/dL 70-110 TESTED AT [address] (test nsru=6838) [place] [id number] VANCOMYCIN LEVEL, [id number] 16:51:00 Test Item Value Reference Range Comments VANCOMYCIN TROUGH (BEAKER) (test wjka=594) 17.2 ug/mL 10.0-20.0 At end of dialysis on 12/20/16POCT-GLUCOSE [id number] 11:49:00 Test Item Value Reference Range Comments POC-GLUCOSE METER (BEAKER) 97 mg/dL 70-110 TESTED AT [address] (test tbqm=4002) [place] [id number] POCT-GLUCOSE [id number] 07:38:00 Test Item Value Reference Range Comments POC-GLUCOSE METER (BEAKER) 151 mg/dL 70-110 TESTED AT [address] (test llgu=5523) [place] [id number] BASIC METABOLIC [id number] 06:39:00 Test Item Value Reference Range Comments SODIUM (BEAKER) (test 134 meq/L 136-145 txuo=794) POTASSIUM (BEAKER) (test 3.9 meq/L 3.5-5.1 oghe=820) CHLORIDE (BEAKER) (test 102 meq/L 98-107 yfgx=332) CO2 (BEAKER) (test 24 meq/L 22-29 sfoh=064) BLOOD UREA NITROGEN 23 mg/dL 7-21 (BEAKER) (test byag=733) CREATININE (BEAKER) (test 2.91 mg/dL 0.57-1.25 watv=506) GLUCOSE RANDOM (BEAKER) 99 mg/dL 70-105 (test stet=137) CALCIUM (BEAKER) (test 8.2 mg/dL 8.4-10.2 npjt=170) EGFR (BEAKER) (test 22 mL/min/1.73 sq m ESTIMATED GFR IS NOT djsu=6764) ACCURATE CREATININE CLEARANCE IN PREDICTING GLOMERULAR FILTRATION RATE. ESTIMATED GFR IS NOT APPLICABLE FOR DIALYSIS PATIENTS. [id number] 06:37:00 Test Item Value Reference Range Comments PHOSPHORUS (BEAKER) (test vows=005) 2.9 mg/dL 2.3-4.7 [id number] 06:37:00 Test Item Value Reference Range Comments MAGNESIUM (BEAKER) (test dafj=921) 1.6 mg/dL 1.6-2.6 CBC W/PLT COUNT & AUTO [id number] 06:36:00 Test Item Value Reference Range Comments WHITE BLOOD CELL COUNT (BEAKER) (test rzzo=323) 14.1 K/ L 4.0-10.0 RED BLOOD CELL COUNT (BEAKER) (test zahd=334) 3.01 M/ L 4.20-5.80 HEMOGLOBIN (BEAKER) (test ardd=291) 8.7 GM/DL 13.0-16.8 HEMATOCRIT (BEAKER) (test wcfh=302) 26.8 % 40.0-50.0 MEAN CORPUSCULAR VOLUME (BEAKER) (test elox=403) 88.9 fL 82.0-98.0 MEAN CORPUSCULAR HEMOGLOBIN (BEAKER) (test 28.8 pg 27.0-33.0 ijlw=693) MEAN CORPUSCULAR HEMOGLOBIN CONC (BEAKER) (test 32.5 GM/DL 32.0-36.0 xhhi=556) RED CELL DISTRIBUTION WIDTH (BEAKER) (test 16.3 % 10.3-14.2 acuu=931) PLATELET COUNT (BEAKER) (test rale=258) 242 K/CU MM 150-430 MEAN PLATELET VOLUME (BEAKER) (test fbje=959) 6.9 fL 6.5-10.5 NUCLEATED RED BLOOD CELLS (BEAKER) (test 0 /100 WBC 0-0 gtxl=840) NEUTROPHILS RELATIVE PERCENT (BEAKER) (test 73 % pjia=291) LYMPHOCYTES RELATIVE PERCENT (BEAKER) (test 15 % aanb=357) MONOCYTES RELATIVE PERCENT (BEAKER) (test 9 % piyn=565) EOSINOPHILS RELATIVE PERCENT (BEAKER) (test 2 % urkx=100) BASOPHILS RELATIVE PERCENT (BEAKER) (test 0 % almx=561) NEUTROPHILS ABSOLUTE COUNT (BEAKER) (test 10.30 K/ L 1.80-8.00 nket=318) LYMPHOCYTES ABSOLUTE COUNT (BEAKER) (test 2.14 K/ L 1.48-4.50 wynm=716) MONOCYTES ABSOLUTE COUNT (BEAKER) (test 1.33 K/ L 0.00-1.30 juta=447) EOSINOPHILS ABSOLUTE COUNT (BEAKER) (test 0.29 K/ L 0.00-0.50 ydjw=273) BASOPHILS ABSOLUTE COUNT (BEAKER) (test 0.06 K/ L 0.00-0.20 bvkj=313) 0.00CALCIUM, [id number] 06:24:00 Test Item Value Reference Range Comments CALCIUM IONIZED (BEAKER) (test lgrv=381) 1.08 mmol/L 1.12-1.27 PH, BLOOD (BEAKER) (test xdtq=5493) 7.46 POCT-GLUCOSE [id number] 22:24:00 Test Item Value Reference Range Comments POC-GLUCOSE METER (BEAKER) 166 mg/dL 70-110 TESTED AT [address] (test ljrw=8919) [facility] [address] POCT-GLUCOSE [id number] 16:17:00 Test Item Value Reference Range Comments POC-GLUCOSE METER (BEAKER) 132 mg/dL 70-110 TESTED AT [address] (test mirm=4460) [facility] [address] POCT-GLUCOSE [id number] 12:16:00 Test Item Value Reference Range Comments POC-GLUCOSE METER (BEAKER) 90 mg/dL 70-110 TESTED AT [address] (test pybo=2774) [facility] [address] POCT-GLUCOSE [id number] 08:13:00 Test Item Value Reference Range Comments POC-GLUCOSE METER (BEAKER) 111 mg/dL 70-[address] [facility] [address] (test pgse=3471) [place] [address] CBC W/PLT COUNT & AUTO [id number] 07:40:00 Test Item Value Reference Range Comments WHITE BLOOD CELL COUNT (BEAKER) (test mits=123) 11.9 K/ L 4.0-10.0 RED BLOOD CELL COUNT (BEAKER) (test wkyu=644) 3.11 M/ L 4.20-5.80 HEMOGLOBIN (BEAKER) (test spbe=653) 8.9 GM/DL 13.0-16.8 HEMATOCRIT (BEAKER) (test hfoa=901) 28.0 % 40.0-50.0 MEAN CORPUSCULAR VOLUME (BEAKER) (test hstm=887) 90.3 fL 82.0-98.0 MEAN CORPUSCULAR HEMOGLOBIN (BEAKER) (test 28.7 pg 27.0-33.0 dodi=628) MEAN CORPUSCULAR HEMOGLOBIN CONC (BEAKER) (test 31.8 GM/DL 32.0-36.0 yxpx=792) RED CELL DISTRIBUTION WIDTH (BEAKER) (test 15.5 % 10.3-14.2 vfie=098) PLATELET COUNT (BEAKER) (test xdfr=430) 252 K/CU MM 150-430 MEAN PLATELET VOLUME (BEAKER) (test ptyf=670) 7.1 fL 6.5-10.5 NUCLEATED RED BLOOD CELLS (BEAKER) (test 0 /100 WBC 0-0 qssh=740) NEUTROPHILS RELATIVE PERCENT (BEAKER) (test 69 % bosn=476) LYMPHOCYTES RELATIVE PERCENT (BEAKER) (test 18 % aayu=963) MONOCYTES RELATIVE PERCENT (BEAKER) (test 11 % ceqf=876) EOSINOPHILS RELATIVE PERCENT (BEAKER) (test 2 % yccw=017) BASOPHILS RELATIVE PERCENT (BEAKER) (test 0 % hctq=444) NEUTROPHILS ABSOLUTE COUNT (BEAKER) (test 8.27 K/ L 1.80-8.00 vvbf=246) LYMPHOCYTES ABSOLUTE COUNT (BEAKER) (test 2.09 K/ L 1.48-4.50 ypwm=741) MONOCYTES ABSOLUTE COUNT (BEAKER) (test 1.35 K/ L 0.00-1.30 mjvk=163) EOSINOPHILS ABSOLUTE COUNT (BEAKER) (test 0.19 K/ L 0.00-0.50 ifph=240) BASOPHILS ABSOLUTE COUNT (BEAKER) (test 0.04 K/ L 0.00-0.20 vane=887) [id number] 07:29:00 Test Item Value Reference Range Comments PHOSPHORUS (BEAKER) (test hvge=778) 1.8 mg/dL 2.3-4.7 [id number] 07:29:00 Test Item Value Reference Range Comments MAGNESIUM (BEAKER) (test zkkq=973) 1.6 mg/dL 1.6-2.6 BASIC METABOLIC [id number] 07:29:00 Test Item Value Reference Range Comments SODIUM (BEAKER) (test 135 meq/L 136-145 uwmw=334) POTASSIUM (BEAKER) (test 3.7 meq/L 3.5-5.1 yxjr=846) CHLORIDE (BEAKER) (test 104 meq/L 98-107 gsgm=219) CO2 (BEAKER) (test 24 meq/L 22-29 mvoh=730) BLOOD UREA NITROGEN 12 mg/dL 7-21 (BEAKER) (test kopq=823) CREATININE (BEAKER) (test 2.00 mg/dL 0.57-1.25 ajki=475) GLUCOSE RANDOM (BEAKER) 81 mg/dL 70-105 (test jirc=838) CALCIUM (BEAKER) (test 8.2 mg/dL 8.4-10.2 xfud=668) EGFR (BEAKER) (test 34 mL/min/1.73 sq m ESTIMATED GFR IS NOT dynw=3507) ACCURATE CREATININE CLEARANCE IN PREDICTING GLOMERULAR FILTRATION RATE. ESTIMATED GFR IS NOT APPLICABLE FOR DIALYSIS PATIENTS. POCT-GLUCOSE [id number] 21:13:00 Test Item Value Reference Range Comments POC-GLUCOSE METER (BEAKER) 107 mg/dL 70-110 TESTED AT [address] (test ueit=3688) [facility] [address] POCT-GLUCOSE [id number] 17:33:00 Test Item Value Reference Range Comments POC-GLUCOSE METER (BEAKER) 131 mg/dL 70-110 TESTED AT [address] (test yhop=8407) [facility] [address] POCT-GLUCOSE [id number] 13:05:00 Test Item Value Reference Range Comments POC-GLUCOSE METER (BEAKER) 188 mg/dL 70-[address] [facility] [address] [facility] (test pwur=0127) [facility] [address] POCT-GLUCOSE [id number] 09:01:00 Test Item Value Reference Range Comments POC-GLUCOSE METER (BEAKER) 103 mg/dL 70-[address] [facility] [address] [facility] (test fmnt=4124) [facility] [address] CBC W/PLT COUNT & AUTO [id number] 07:08:00 Test Item Value Reference Range Comments WHITE BLOOD CELL COUNT (BEAKER) (test mlwf=232) 12.7 K/ L 4.0-10.0 RED BLOOD CELL COUNT (BEAKER) (test lbjx=718) 3.09 M/ L 4.20-5.80 HEMOGLOBIN (BEAKER) (test wklf=459) 9.0 GM/DL 13.0-16.8 HEMATOCRIT (BEAKER) (test mcbn=845) 27.4 % 40.0-50.0 MEAN CORPUSCULAR VOLUME (BEAKER) (test kduk=216) 88.8 fL 82.0-98.0 MEAN CORPUSCULAR HEMOGLOBIN (BEAKER) (test 29.0 pg 27.0-33.0 ndjt=483) MEAN CORPUSCULAR HEMOGLOBIN CONC (BEAKER) (test 32.7 GM/DL 32.0-36.0 xzth=622) RED CELL DISTRIBUTION WIDTH (BEAKER) (test 15.7 % 10.3-14.2 wtqe=146) PLATELET COUNT (BEAKER) (test vwol=808) 257 K/CU MM 150-430 MEAN PLATELET VOLUME (BEAKER) (test xoet=232) 7.0 fL 6.5-10.5 NUCLEATED RED BLOOD CELLS (BEAKER) (test 0 /100 WBC 0-0 zsml=524) NEUTROPHILS RELATIVE PERCENT (BEAKER) (test 74 % ajbu=340) LYMPHOCYTES RELATIVE PERCENT (BEAKER) (test 14 % zgrw=298) MONOCYTES RELATIVE PERCENT (BEAKER) (test 9 % siic=561) EOSINOPHILS RELATIVE PERCENT (BEAKER) (test 2 % dotk=184) BASOPHILS RELATIVE PERCENT (BEAKER) (test 0 % budc=519) NEUTROPHILS ABSOLUTE COUNT (BEAKER) (test 9.38 K/ L 1.80-8.00 rhsq=123) LYMPHOCYTES ABSOLUTE COUNT (BEAKER) (test 1.80 K/ L 1.48-4.50 rgkg=824) MONOCYTES ABSOLUTE COUNT (BEAKER) (test 1.20 K/ L 0.00-1.30 gljq=244) EOSINOPHILS ABSOLUTE COUNT (BEAKER) (test 0.24 K/ L 0.00-0.50 plmp=463) BASOPHILS ABSOLUTE COUNT (BEAKER) (test 0.05 K/ L 0.00-0.20 ywhv=825) [id number] 06:17:00 Test Item Value Reference Range Comments PHOSPHORUS (BEAKER) (test foun=418) 2.4 mg/dL 2.3-4.7 [id number] 06:17:00 Test Item Value Reference Range Comments MAGNESIUM (BEAKER) (test xrlu=477) 1.5 mg/dL 1.6-2.6 BASIC METABOLIC [id number] 06:17:00 Test Item Value Reference Range Comments SODIUM (BEAKER) (test 135 meq/L 136-145 ouhd=065) POTASSIUM (BEAKER) (test 3.7 meq/L 3.5-5.1 olow=568) CHLORIDE (BEAKER) (test 104 meq/L 98-107 oqvu=560) CO2 (BEAKER) (test 23 meq/L 22-29 yigs=609) BLOOD UREA NITROGEN 24 mg/dL 7-21 (BEAKER) (test rwgl=636) CREATININE (BEAKER) (test 2.70 mg/dL 0.57-1.25 huvx=709) GLUCOSE RANDOM (BEAKER) 93 mg/dL 70-105 (test fzoi=340) CALCIUM (BEAKER) (test 8.4 mg/dL 8.4-10.2 sxjd=601) EGFR (BEAKER) (test 24 mL/min/1.73 sq m ESTIMATED GFR IS NOT gnec=6260) ACCURATE CREATININE CLEARANCE IN PREDICTING GLOMERULAR FILTRATION RATE. ESTIMATED GFR IS NOT APPLICABLE FOR DIALYSIS PATIENTS. POCT-GLUCOSE [id number] 23:43:00 Test Item Value Reference Range Comments POC-GLUCOSE METER (BEAKER) 100 mg/dL 70-[address] [facility] [address] [facility] (test sney=1943) [facility] [address] POCT-GLUCOSE [id number] 17:44:00 Test Item Value Reference Range Comments POC-GLUCOSE METER (BEAKER) 208 mg/dL 70-110 TESTED AT [address] (test visl=6255) [place] [address] ANAEROBIC [id number] 14:43:00 Test Item Value Reference Range Comments CULTURE (BEAKER) (test ihtz=1344) No anaerobes isolated ANAEROBIC [id number] 14:42:00 Test Item Value Reference Range Comments CULTURE (BEAKER) (test yavu=5550) No anaerobes isolated POCT-GLUCOSE [id number] 12:02:00 Test Item Value Reference Range Comments POC-GLUCOSE METER (BEAKER) 208 mg/dL 70-110 TESTED AT [address] (test odtu=0549) [place] [address] POCT-GLUCOSE [id number] 09:52:00 Test Item Value Reference Range Comments POC-GLUCOSE METER (BEAKER) 86 mg/dL 70-110 TESTED AT [address] (test ivys=9930) [place] [address] CBC W/PLT COUNT & AUTO [id number] 07:11:00 Test Item Value Reference Range Comments WHITE BLOOD CELL COUNT (BEAKER) (test pxbd=802) 11.1 K/ L 4.0-10.0 RED BLOOD CELL COUNT (BEAKER) (test jqpn=862) 3.26 M/ L 4.20-5.80 HEMOGLOBIN (BEAKER) (test wcca=460) 9.6 GM/DL 13.0-16.8 HEMATOCRIT (BEAKER) (test koxd=129) 29.4 % 40.0-50.0 MEAN CORPUSCULAR VOLUME (BEAKER) (test qsqj=831) 90.2 fL 82.0-98.0 MEAN CORPUSCULAR HEMOGLOBIN (BEAKER) (test 29.5 pg 27.0-33.0 kzcm=580) MEAN CORPUSCULAR HEMOGLOBIN CONC (BEAKER) (test 32.7 GM/DL 32.0-36.0 fjru=493) RED CELL DISTRIBUTION WIDTH (BEAKER) (test 14.7 % 10.3-14.2 qgka=931) PLATELET COUNT (BEAKER) (test frxe=205) 280 K/CU MM 150-430 MEAN PLATELET VOLUME (BEAKER) (test ndyq=545) 6.8 fL 6.5-10.5 NUCLEATED RED BLOOD CELLS (BEAKER) (test 0 /100 WBC 0-0 pyve=881) NEUTROPHILS RELATIVE PERCENT (BEAKER) (test 73 % mcaq=674) LYMPHOCYTES RELATIVE PERCENT (BEAKER) (test 15 % xzop=283) MONOCYTES RELATIVE PERCENT (BEAKER) (test 10 % oehw=523) EOSINOPHILS RELATIVE PERCENT (BEAKER) (test 2 % nmlm=348) BASOPHILS RELATIVE PERCENT (BEAKER) (test 0 % yfbc=948) NEUTROPHILS ABSOLUTE COUNT (BEAKER) (test 8.08 K/ L 1.80-8.00 uapf=059) LYMPHOCYTES ABSOLUTE COUNT (BEAKER) (test 1.66 K/ L 1.48-4.50 rosw=635) MONOCYTES ABSOLUTE COUNT (BEAKER) (test 1.06 K/ L 0.00-1.30 eoen=428) EOSINOPHILS ABSOLUTE COUNT (BEAKER) (test 0.26 K/ L 0.00-0.50 ifbz=571) BASOPHILS ABSOLUTE COUNT (BEAKER) (test 0.05 K/ L 0.00-0.20 qmgp=258) [id number] 06:02:00 Test Item Value Reference Range Comments PHOSPHORUS (BEAKER) (test pkxc=657) 1.7 mg/dL 2.3-4.7 [id number] 06:02:00 Test Item Value Reference Range Comments MAGNESIUM (BEAKER) (test fhad=134) 1.5 mg/dL 1.6-2.6 BASIC METABOLIC [id number] 06:02:00 Test Item Value Reference Range Comments SODIUM (BEAKER) (test 136 meq/L 136-145 oltj=533) POTASSIUM (BEAKER) (test 3.9 meq/L 3.5-5.1 spbq=246) CHLORIDE (BEAKER) (test 103 meq/L 98-107 jpen=671) CO2 (BEAKER) (test 25 meq/L 22-29 jagy=608) BLOOD UREA NITROGEN 13 mg/dL 7-21 (BEAKER) (test hncf=679) CREATININE (BEAKER) (test 1.67 mg/dL 0.57-1.25 vube=511) GLUCOSE RANDOM (BEAKER) 74 mg/dL 70-105 (test cely=622) CALCIUM (BEAKER) (test 8.7 mg/dL 8.4-10.2 jwdi=093) EGFR (BEAKER) (test 42 mL/min/1.73 sq m ESTIMATED GFR IS NOT iqrd=6815) ACCURATE CREATININE CLEARANCE IN PREDICTING GLOMERULAR FILTRATION RATE. ESTIMATED GFR IS NOT APPLICABLE FOR DIALYSIS PATIENTS. POCT-GLUCOSE [id number] 21:46:00 Test Item Value Reference Range Comments POC-GLUCOSE METER (BEAKER) 83 mg/dL 70-110 TESTED AT [address] (test jxeu=1734) [place] [address] POCT-GLUCOSE [id number] 17:45:00 Test Item Value Reference Range Comments POC-GLUCOSE METER (BEAKER) 83 mg/dL 70-110 TESTED AT [address] (test veup=8461) [place] [id number] POCT-GLUCOSE [id number] 11:03:00 Test Item Value Reference Range Comments POC-GLUCOSE METER (BEAKER) 152 mg/dL 70-110 TESTED AT [address] (test crxf=0187) [place] [id number] CBC W/PLT COUNT & AUTO [id number] 08:54:00 Test Item Value Reference Range Comments WHITE BLOOD CELL COUNT (BEAKER) (test esml=423) 14.2 K/ L 4.0-10.0 RED BLOOD CELL COUNT (BEAKER) (test ktdz=847) 2.99 M/ L 4.20-5.80 HEMOGLOBIN (BEAKER) (test zmdq=395) 8.6 GM/DL 13.0-16.8 HEMATOCRIT (BEAKER) (test hvpq=810) 27.1 % 40.0-50.0 MEAN CORPUSCULAR VOLUME (BEAKER) (test qwfl=883) 90.6 fL 82.0-98.0 MEAN CORPUSCULAR HEMOGLOBIN (BEAKER) (test 28.6 pg 27.0-33.0 sijo=695) MEAN CORPUSCULAR HEMOGLOBIN CONC (BEAKER) (test 31.6 GM/DL 32.0-36.0 btzz=504) RED CELL DISTRIBUTION WIDTH (BEAKER) (test 14.6 % 10.3-14.2 xgfi=060) PLATELET COUNT (BEAKER) (test kdhw=585) 285 K/CU MM 150-430 MEAN PLATELET VOLUME (BEAKER) (test xstm=261) 7.1 fL 6.5-10.5 NUCLEATED RED BLOOD CELLS (BEAKER) (test 0 /100 WBC 0-0 dniv=509) NEUTROPHILS RELATIVE PERCENT (BEAKER) (test 79 % dxsy=964) LYMPHOCYTES RELATIVE PERCENT (BEAKER) (test 10 % orus=011) MONOCYTES RELATIVE PERCENT (BEAKER) (test 9 % paxi=269) EOSINOPHILS RELATIVE PERCENT (BEAKER) (test 2 % gmot=853) BASOPHILS RELATIVE PERCENT (BEAKER) (test 0 % whxo=746) NEUTROPHILS ABSOLUTE COUNT (BEAKER) (test 11.20 K/ L 1.80-8.00 nhkb=548) LYMPHOCYTES ABSOLUTE COUNT (BEAKER) (test 1.40 K/ L 1.48-4.50 hqtd=960) MONOCYTES ABSOLUTE COUNT (BEAKER) (test 1.30 K/ L 0.00-1.30 xxfu=699) EOSINOPHILS ABSOLUTE COUNT (BEAKER) (test 0.27 K/ L 0.00-0.50 ducs=559) BASOPHILS ABSOLUTE COUNT (BEAKER) (test 0.04 K/ L 0.00-0.20 yxqx=773) 0.00BASIC METABOLIC [id number] 08:46:00 Test Item Value Reference Range Comments SODIUM (BEAKER) (test 138 meq/L 136-145 xsco=563) POTASSIUM (BEAKER) (test 3.8 meq/L 3.5-5.1 nfgy=128) CHLORIDE (BEAKER) (test 103 meq/L 98-107 lqpc=159) CO2 (BEAKER) (test 25 meq/L 22-29 tvex=073) BLOOD UREA NITROGEN 29 mg/dL 7-21 (BEAKER) (test ezzr=910) CREATININE (BEAKER) (test 2.68 mg/dL 0.57-1.25 vveh=074) GLUCOSE RANDOM (BEAKER) 91 mg/dL 70-105 (test hijq=383) CALCIUM (BEAKER) (test 7.9 mg/dL 8.4-10.2 fvsj=779) EGFR (BEAKER) (test 25 mL/min/1.73 sq m ESTIMATED GFR IS NOT yutq=6539) ACCURATE CREATININE CLEARANCE IN PREDICTING GLOMERULAR FILTRATION RATE. ESTIMATED GFR IS NOT APPLICABLE FOR DIALYSIS PATIENTS. VANCOMYCIN LEVEL, [id number] 07:53:00 Test Item Value Reference Range Comments VANCOMYCIN RANDOM (BEAKER) (test pfem=868) 15.1 ug/mL Reference Range: No NormalsPOCT-GLUCOSE [id number] 07:52:00 Test Item Value Reference Range Comments POC-GLUCOSE METER (BEAKER) 126 mg/dL 70-110 TESTED AT [address] (test olrd=6861) [place] [address] [id number] 07:50:00 Test Item Value Reference Range Comments PHOSPHORUS (BEAKER) (test nlmp=323) 2.1 mg/dL 2.3-4.7 [id number] 07:50:00 Test Item Value Reference Range Comments MAGNESIUM (BEAKER) (test mhtj=867) 1.7 mg/dL 1.6-2.6 POCT-GLUCOSE [id number] 21:08:00 Test Item Value Reference Range Comments POC-GLUCOSE METER (BEAKER) 234 mg/dL 70-110 TESTED AT [address] (test ijwh=4309) [place] [address] POCT-GLUCOSE [id number] 17:02:00 Test Item Value Reference Range Comments POC-GLUCOSE METER (BEAKER) 230 mg/dL 70-110 TESTED AT [address] (test fryz=5361) [place] [address] SURGICALLY OBTAINED CULTURE + GRAM [id number] 09:26:00 Test Item Value Reference Range Comments CULTURE (BEAKER) (test <1+ Same organism has been lfry=1424) isolated from cultures(s) of the same body site and collection date. Repeat identification and susceptibility testing performed only after consultation with the clinical microbiology laboratory.Refer to previous culture ofMethicillin resistant Staphylococcus aureus GRAM STAIN RESULT <1+ WBCs (BEAKER) (test lceq=1068) GRAM STAIN RESULT No organisms seen (BEAKER) (test skgc=558192) SURGICALLY OBTAINED CULTURE + GRAM [id number] 09:25:00 Test Item Value Reference Range Comments CULTURE (BEAKER) (test METHICILLIN RESISTANT <1+ Methicillin hder=0918) STAPHYLOCOCCUS AUREUS resistant Staphylococcus aureus Clindamycin (test code=10) Erythromycin (test code=4) Linezolid (test code=40) Oxacillin (test code=14) Rifampin (test code=43) Tetracycline (test code=2) Trimethoprim + Sulfamethoxazole (test code=47) Vancomycin (test code=13) CULTURE (BEAKER) (test METHICILLIN RESISTANT <1+ Methicillin pblh=31891) STAPHYLOCOCCUS AUREUS resistant Staphylococcus aureusof a second type Clindamycin (test code=10) Erythromycin (test code=4) Linezolid (test code=40) Oxacillin (test code=14) Rifampin (test code=43) Tetracycline (test code=2) Trimethoprim + Sulfamethoxazole (test code=47) Vancomycin (test code=13) GRAM STAIN RESULT No White blood cells (BEAKER) (test umlk=0122) seen GRAM STAIN RESULT No organisms seen (BEAKER) (test rbdt=315213) POCT-GLUCOSE [id number] 08:39:00 Test Item Value Reference Range Comments POC-GLUCOSE METER (BEAKER) 129 mg/dL 70-[address] [facility] [address] [facility] (test nrwg=8364) [facility] [address] CBC W/PLT COUNT & AUTO [id number] 06:51:00 Test Item Value Reference Range Comments WHITE BLOOD CELL COUNT (BEAKER) (test rbys=365) 17.4 K/ L 4.0-10.0 RED BLOOD CELL COUNT (BEAKER) (test bbxh=145) 2.99 M/ L 4.20-5.80 HEMOGLOBIN (BEAKER) (test bucy=310) 8.9 GM/DL 13.0-16.8 HEMATOCRIT (BEAKER) (test oyhd=133) 27.1 % 40.0-50.0 MEAN CORPUSCULAR VOLUME (BEAKER) (test mgmy=367) 90.6 fL 82.0-98.0 MEAN CORPUSCULAR HEMOGLOBIN (BEAKER) (test 29.6 pg 27.0-33.0 zkpp=129) MEAN CORPUSCULAR HEMOGLOBIN CONC (BEAKER) (test 32.7 GM/DL 32.0-36.0 dxfb=922) RED CELL DISTRIBUTION WIDTH (BEAKER) (test 15.3 % 10.3-14.2 bfwi=274) PLATELET COUNT (BEAKER) (test jnco=567) 246 K/CU MM 150-430 MEAN PLATELET VOLUME (BEAKER) (test cjgd=619) 6.7 fL 6.5-10.5 NUCLEATED RED BLOOD CELLS (BEAKER) (test 0 /100 WBC 0-0 zesz=654) NEUTROPHILS RELATIVE PERCENT (BEAKER) (test 83 % egto=304) LYMPHOCYTES RELATIVE PERCENT (BEAKER) (test 7 % npzf=874) MONOCYTES RELATIVE PERCENT (BEAKER) (test 9 % gqdp=103) EOSINOPHILS RELATIVE PERCENT (BEAKER) (test 1 % dnng=828) BASOPHILS RELATIVE PERCENT (BEAKER) (test 0 % atqy=339) NEUTROPHILS ABSOLUTE COUNT (BEAKER) (test 14.50 K/ L 1.80-8.00 gmqp=815) LYMPHOCYTES ABSOLUTE COUNT (BEAKER) (test 1.19 K/ L 1.48-4.50 nxzw=771) MONOCYTES ABSOLUTE COUNT (BEAKER) (test 1.56 K/ L 0.00-1.30 znaj=704) EOSINOPHILS ABSOLUTE COUNT (BEAKER) (test 0.13 K/ L 0.00-0.50 ypop=773) BASOPHILS ABSOLUTE COUNT (BEAKER) (test 0.03 K/ L 0.00-0.20 bbvz=306) 0.00BASIC METABOLIC [id number] 05:44:00 Test Item Value Reference Range Comments SODIUM (BEAKER) (test 139 meq/L 136-145 sldw=208) POTASSIUM (BEAKER) (test 3.7 meq/L 3.5-5.1 trkc=858) CHLORIDE (BEAKER) (test 104 meq/L 98-107 yptg=454) CO2 (BEAKER) (test 26 meq/L 22-29 kjfl=603) BLOOD UREA NITROGEN 19 mg/dL 7-21 (BEAKER) (test apfi=694) CREATININE (BEAKER) (test 2.08 mg/dL 0.57-1.25 spya=787) GLUCOSE RANDOM (BEAKER) 127 mg/dL 70-105 (test lzdw=031) CALCIUM (BEAKER) (test 7.9 mg/dL 8.4-10.2 wycy=278) EGFR (BEAKER) (test 33 mL/min/1.73 sq m ESTIMATED GFR IS NOT urqw=5495) ACCURATE CREATININE CLEARANCE IN PREDICTING GLOMERULAR FILTRATION RATE. ESTIMATED GFR IS NOT APPLICABLE FOR DIALYSIS PATIENTS. [id number] 05:42:00 Test Item Value Reference Range Comments PHOSPHORUS (BEAKER) (test mqyy=749) 2.3 mg/dL 2.3-4.7 [id number] 05:42:00 Test Item Value Reference Range Comments MAGNESIUM (BEAKER) (test sxqd=023) 1.7 mg/dL 1.6-2.6 CALCIUM, [id number] 05:21:00 Test Item Value Reference Range Comments CALCIUM IONIZED (BEAKER) (test myrb=766) 0.99 mmol/L 1.12-1.27 PH, BLOOD (BEAKER) (test ggbi=8855) 7.44 POCT-GLUCOSE [id number] 21:08:00 Test Item Value Reference Range Comments POC-GLUCOSE METER (BEAKER) 184 mg/dL 70-110 TESTED AT [address] (test ouig=8235) [facility] [address] POCT-GLUCOSE [id number] 18:10:00 Test Item Value Reference Range Comments POC-GLUCOSE METER (BEAKER) 214 mg/dL 70-110 TESTED AT [address] (test ajft=2356) [facility] [address] POCT-GLUCOSE [id number] 18:04:00 Test Item Value Reference Range Comments POC-GLUCOSE METER (BEAKER) 169 mg/dL 70-110 TESTED AT [address] (test hxhj=7967) [facility] [address] POCT-GLUCOSE [id number] 11:49:00 Test Item Value Reference Range Comments POC-GLUCOSE METER (BEAKER) 126 mg/dL 70-110 TESTED AT [address] (test bsoo=9443) [facility] [address] POCT-GLUCOSE [id number] 08:17:00 Test Item Value Reference Range Comments POC-GLUCOSE METER (BEAKER) 119 mg/dL 70-110 TESTED AT [address] (test vfee=0957) [facility] [address] VANCOMYCIN LEVEL, [id number] 06:32:00 Test Item Value Reference Range Comments VANCOMYCIN RANDOM (BEAKER) (test qtvx=504) 13.8 ug/mL Reference Range: No NormalsPOCT-GLUCOSE [id number] 05:54:00 Test Item Value Reference Range Comments POC-GLUCOSE METER (BEAKER) 122 mg/dL 70-110 TESTED AT [address] (test erck=5267) [facility] [address] B-TYPE NATRIURETIC FACTOR (BNP)2016-12-14 03:44:00 Test Item Value Reference Range Comments B-TYPE NATRIURETIC PEPTIDE (BEAKER) (test 883 pg/mL 0-100 tmpz=741) BASIC METABOLIC [id number] 03:40:00 Test Item Value Reference Range Comments SODIUM (BEAKER) (test 140 meq/L 136-145 ylko=736) POTASSIUM (BEAKER) (test 4.5 meq/L 3.5-5.1 lanf=284) CHLORIDE (BEAKER) (test 109 meq/L 98-107 tbsa=515) CO2 (BEAKER) (test 23 meq/L 22-29 abyx=467) BLOOD UREA NITROGEN 21 mg/dL 7-21 (BEAKER) (test wtjk=432) CREATININE (BEAKER) (test 2.96 mg/dL 0.57-1.25 fmxf=605) GLUCOSE RANDOM (BEAKER) 118 mg/dL 70-105 (test shrq=528) CALCIUM (BEAKER) (test 7.5 mg/dL 8.4-10.2 vpbj=427) EGFR (BEAKER) (test 22 mL/min/1.73 sq m ESTIMATED GFR IS NOT xfxd=8393) ACCURATE CREATININE CLEARANCE IN PREDICTING GLOMERULAR FILTRATION RATE. ESTIMATED GFR IS NOT APPLICABLE FOR DIALYSIS PATIENTS. [id number] 03:37:00 Test Item Value Reference Range Comments PHOSPHORUS (BEAKER) (test jqzi=915) 4.6 mg/dL 2.3-4.7 [id number] 03:37:00 Test Item Value Reference Range Comments MAGNESIUM (BEAKER) (test ronk=392) 1.7 mg/dL 1.6-2.6 CBC W/PLT COUNT & AUTO [id number] 03:36:00 Test Item Value Reference Range Comments WHITE BLOOD CELL COUNT (BEAKER) (test vzju=585) 23.8 K/ L 4.0-10.0 RED BLOOD CELL COUNT (BEAKER) (test nrmi=311) 2.80 M/ L 4.20-5.80 HEMOGLOBIN (BEAKER) (test uejy=414) 8.3 GM/DL 13.0-16.8 HEMATOCRIT (BEAKER) (test aunv=899) 25.7 % 40.0-50.0 MEAN CORPUSCULAR VOLUME (BEAKER) (test scap=064) 91.8 fL 82.0-98.0 MEAN CORPUSCULAR HEMOGLOBIN (BEAKER) (test 29.6 pg 27.0-33.0 hmcs=800) MEAN CORPUSCULAR HEMOGLOBIN CONC (BEAKER) (test 32.2 GM/DL 32.0-36.0 ztek=553) RED CELL DISTRIBUTION WIDTH (BEAKER) (test 14.8 % 10.3-14.2 wmsv=318) PLATELET COUNT (BEAKER) (test yyrv=679) 261 K/CU MM 150-430 MEAN PLATELET VOLUME (BEAKER) (test nnhu=231) 6.4 fL 6.5-10.5 NUCLEATED RED BLOOD CELLS (BEAKER) (test 0 /100 WBC 0-0 jmku=997) NEUTROPHILS RELATIVE PERCENT (BEAKER) (test 88 % wsox=289) LYMPHOCYTES RELATIVE PERCENT (BEAKER) (test 6 % nvox=191) MONOCYTES RELATIVE PERCENT (BEAKER) (test 6 % aiyi=852) EOSINOPHILS RELATIVE PERCENT (BEAKER) (test 0 % lkwn=633) BASOPHILS RELATIVE PERCENT (BEAKER) (test 0 % cnyx=261) NEUTROPHILS ABSOLUTE COUNT (BEAKER) (test 21.00 K/ L 1.80-8.00 eauy=517) LYMPHOCYTES ABSOLUTE COUNT (BEAKER) (test 1.16 K/ L 1.48-4.50 rtdl=349) MONOCYTES ABSOLUTE COUNT (BEAKER) (test 1.53 K/ L 0.00-1.30 aeqa=194) EOSINOPHILS ABSOLUTE COUNT (BEAKER) (test 0.08 K/ L 0.00-0.50 baic=723) BASOPHILS ABSOLUTE COUNT (BEAKER) (test 0.03 K/ L 0.00-0.20 fmde=614) 0.00CALCIUM, [id number] 03:20:00 Test Item Value Reference Range Comments CALCIUM IONIZED (BEAKER) (test wpuz=587) 1.02 mmol/L 1.12-1.27 PH, BLOOD (BEAKER) (test jbbo=2837) 7.44 POCT-GLUCOSE [id number] 23:20:00 Test Item Value Reference Range Comments POC-GLUCOSE METER (BEAKER) 129 mg/dL 70-110 TESTED AT [address] (test shop=0899) [facility] [address] POCT-GLUCOSE [id number] 16:47:00 Test Item Value Reference Range Comments POC-GLUCOSE METER (BEAKER) 120 mg/dL 70-110 TESTED AT [place] [id number] [facility] (test ijyj=0987) [facility] [address] SPIN/CONCENTRATION [id number] 13:52:00 Test Item Value Reference Range Comments CONCENTRATION CHARGED (BEAKER) (test tplt=7334) Done SPIN/CONCENTRATION [id number] 13:52:00 Test Item Value Reference Range Comments CONCENTRATION CHARGED (BEAKER) (test vwlb=8661) Done BLOOD GAS, [id number] 08:32:00 Test Item Value Reference Range Comments PH ARTERIAL (BEAKER) (test kkzj=660) 7.41 7.35-7.45 PCO2 ARTERIAL (BEAKER) (test lwzc=122) 45 mmHg 35-45 PO2 ARTERIAL (BEAKER) (test zdvu=453) 137 mmHg 80-90 O2 SATURATION ARTERIAL (BEAKER) (test gaxm=111) 98.7 % 96.0-97.0 HCO3 ARTERIAL (BEAKER) (test eiyw=844) 28 mmol/L 21-29 BASE EXCESS ARTERIAL (BEAKER) (test ebke=138) 2.8 mmol/L -2.0-3.0 PATIENT TEMPERATURE (BEAKER) (test qsrt=5730) 37.0 C FIO2 (BEAKER) (test xitj=8262) 40.0 % CBC W/PLT COUNT & AUTO [id number] 08:04:00 Test Item Value Reference Range Comments WHITE BLOOD CELL COUNT (BEAKER) (test ldbh=340) 23.6 K/ L 4.0-10.0 RED BLOOD CELL COUNT (BEAKER) (test fjxu=979) 3.04 M/ L 4.20-5.80 HEMOGLOBIN (BEAKER) (test hbeh=545) 8.9 GM/DL 13.0-16.8 HEMATOCRIT (BEAKER) (test vgfv=996) 26.9 % 40.0-50.0 MEAN CORPUSCULAR VOLUME (BEAKER) (test puuo=313) 88.6 fL 82.0-98.0 MEAN CORPUSCULAR HEMOGLOBIN (BEAKER) (test 29.4 pg 27.0-33.0 xahl=104) MEAN CORPUSCULAR HEMOGLOBIN CONC (BEAKER) (test 33.2 GM/DL 32.0-36.0 ynmd=267) RED CELL DISTRIBUTION WIDTH (BEAKER) (test 15.4 % 10.3-14.2 fpew=553) PLATELET COUNT (BEAKER) (test zqwk=212) 291 K/CU MM 150-430 MEAN PLATELET VOLUME (BEAKER) (test lvrd=008) 6.9 fL 6.5-10.5 NUCLEATED RED BLOOD CELLS (BEAKER) (test 0 /100 WBC 0-0 sxis=937) NEUTROPHILS RELATIVE PERCENT (BEAKER) (test 89 % vcju=327) LYMPHOCYTES RELATIVE PERCENT (BEAKER) (test 5 % tdyw=186) MONOCYTES RELATIVE PERCENT (BEAKER) (test 6 % skzb=950) EOSINOPHILS RELATIVE PERCENT (BEAKER) (test 0 % zdrq=493) BASOPHILS RELATIVE PERCENT (BEAKER) (test 0 % hmpa=546) NEUTROPHILS ABSOLUTE COUNT (BEAKER) (test 21.00 K/ L 1.80-8.00 duri=520) LYMPHOCYTES ABSOLUTE COUNT (BEAKER) (test 1.17 K/ L 1.48-4.50 xaxi=705) MONOCYTES ABSOLUTE COUNT (BEAKER) (test 1.37 K/ L 0.00-1.30 afss=558) EOSINOPHILS ABSOLUTE COUNT (BEAKER) (test 0.04 K/ L 0.00-0.50 mtet=350) BASOPHILS ABSOLUTE COUNT (BEAKER) (test 0.02 K/ L 0.00-0.20 gnac=924) 0.00(MANUAL DIFFERENTIAL)2016-12-13 08:04:00 Test Item Value Reference Range Comments TOTAL COUNTED (BEAKER) (test alqq=2616) WBC MORPHOLOGY (BEAKER) (test znlt=323) Normal PLT MORPHOLOGY (BEAKER) (test qxjn=819) Normal HYPOCHROMIA (BEAKER) (test fxeh=476) 1+ few POCT-GLUCOSE [id number] 07:23:00 Test Item Value Reference Range Comments POC-GLUCOSE METER (BEAKER) 116 mg/dL 70-[address] [facility] [address] [facility] (test swcf=8457) [facility] [address] POCT-GLUCOSE [id number] 06:31:00 Test Item Value Reference Range Comments POC-GLUCOSE METER (BEAKER) 115 mg/dL 70-[address] [facility] [address] [facility] (test yiir=3427) [facility] [address] CALCIUM, [id number] 05:09:00 Test Item Value Reference Range Comments CALCIUM IONIZED (BEAKER) (test pddr=861) 1.06 mmol/L 1.12-1.27 PH, BLOOD (BEAKER) (test efbh=4593) 7.46 BASIC METABOLIC [id number] 04:49:00 Test Item Value Reference Range Comments SODIUM (BEAKER) (test 139 meq/L 136-145 rxym=138) POTASSIUM (BEAKER) (test 4.5 meq/L 3.5-5.1 xpkh=260) CHLORIDE (BEAKER) (test 106 meq/L 98-107 ccgj=981) CO2 (BEAKER) (test 26 meq/L 22-29 qevb=873) BLOOD UREA NITROGEN 14 mg/dL 7-21 (BEAKER) (test jjxx=314) CREATININE (BEAKER) (test 2.20 mg/dL 0.57-1.25 nztf=385) GLUCOSE RANDOM (BEAKER) 138 mg/dL 70-105 (test slto=290) CALCIUM (BEAKER) (test 7.8 mg/dL 8.4-10.2 jtvl=257) EGFR (BEAKER) (test 31 mL/min/1.73 sq m ESTIMATED GFR IS NOT ipxr=8619) ACCURATE CREATININE CLEARANCE IN PREDICTING GLOMERULAR FILTRATION RATE. ESTIMATED GFR IS NOT APPLICABLE FOR DIALYSIS PATIENTS. [id number] 04:47:00 Test Item Value Reference Range Comments PHOSPHORUS (BEAKER) (test azhg=950) 3.8 mg/dL 2.3-4.7 [id number] 04:47:00 Test Item Value Reference Range Comments MAGNESIUM (BEAKER) (test pqgg=547) 1.6 mg/dL 1.6-2.6 POCT-GLUCOSE [id number] 00:17:00 Test Item Value Reference Range Comments POC-GLUCOSE METER (BEAKER) 165 mg/dL 70-[address] [facility] [address] [facility] (test hswr=2831) [facility] [address] POCT-GLUCOSE [id number] 19:50:00 Test Item Value Reference Range Comments POC-GLUCOSE METER (BEAKER) 150 mg/dL 70-[address] [facility] [address] (test haqs=5949) [place] [address] GLUCOSE-STAT [id number] 16:40:00 Test Item Value Reference Range Comments GLUCOSE RANDOM (BEAKER) (test iayh=169) 93 mg/dL 70-110 SODIUM NA-STAT [id number] 16:40:00 Test Item Value Reference Range Comments SODIUM (BEAKER) (test pdec=756) 136 meq/L 135-148 POTASSIUM-STAT [id number] 16:40:00 Test Item Value Reference Range Comments POTASSIUM (BEAKER) (test leeo=723) 3.8 meq/L 3.6-5.5 BLOOD GAS, [id number] 16:40:00 Test Item Value Reference Range Comments PH ARTERIAL (BEAKER) (test cozh=502) 7.45 7.35-7.45 PCO2 ARTERIAL (BEAKER) (test cnyy=304) 46 mmHg 35-45 PO2 ARTERIAL (BEAKER) (test optk=039) 371 mmHg 80-90 O2 SATURATION ARTERIAL (BEAKER) (test zhqu=714) 99.8 % 96.0-97.0 HCO3 ARTERIAL (BEAKER) (test rbxb=405) 31 mmol/L 21-29 BASE EXCESS ARTERIAL (BEAKER) (test vgfa=113) 6.0 mmol/L -2.0-3.0 PATIENT TEMPERATURE (BEAKER) (test odrt=6635) 37.0 C FIO2 (BEAKER) (test yovy=4079) 60.0 % HGB/HCT (H&H) - STAT [id number] 16:40:00 Test Item Value Reference Range Comments HEMOGLOBIN (BEAKER) (test bdez=095) 6.3 g/dL 13.0-16.8 HEMATOCRIT (BEAKER) (test bhsj=714) 19.0 % 40.0-50.0 GLUCOSE-STAT [id number] 16:14:00 Test Item Value Reference Range Comments GLUCOSE RANDOM (BEAKER) (test trzw=591) 89 mg/dL 70-110 [id number] 13:22:00 Test Item Value Reference Range Comments PARTIAL THROMBOPLASTIN TIME (BEAKER) (test 80.1 seconds 22.5-36.0 uvxl=157) POCT-GLUCOSE [id number] 11:57:00 Test Item Value Reference Range Comments POC-GLUCOSE METER (BEAKER) 82 mg/dL 70-[address] [facility] [address] [facility] (test bpja=4300) [facility] [address] POCT-GLUCOSE [id number] 08:15:00 Test Item Value Reference Range Comments POC-GLUCOSE METER (BEAKER) 90 mg/dL 70-[address] [facility] [address] [facility] (test bjnx=7758) [facility] [address] CBC W/PLT COUNT & AUTO [id number] 05:50:00 Test Item Value Reference Range Comments WHITE BLOOD CELL COUNT (BEAKER) (test lhzt=466) 13.9 K/ L 4.0-10.0 RED BLOOD CELL COUNT (BEAKER) (test qxyc=741) 2.42 M/ L 4.20-5.80 HEMOGLOBIN (BEAKER) (test uqfb=641) 7.2 GM/DL 13.0-16.8 HEMATOCRIT (BEAKER) (test qepl=539) 21.8 % 40.0-50.0 MEAN CORPUSCULAR VOLUME (BEAKER) (test mymi=506) 90.3 fL 82.0-98.0 MEAN CORPUSCULAR HEMOGLOBIN (BEAKER) (test 29.5 pg 27.0-33.0 jaid=026) MEAN CORPUSCULAR HEMOGLOBIN CONC (BEAKER) (test 32.7 GM/DL 32.0-36.0 ghlt=415) RED CELL DISTRIBUTION WIDTH (BEAKER) (test 15.9 % 10.3-14.2 vijs=089) PLATELET COUNT (BEAKER) (test jwxw=271) 282 K/CU MM 150-430 MEAN PLATELET VOLUME (BEAKER) (test xroh=555) 6.8 fL 6.5-10.5 NUCLEATED RED BLOOD CELLS (BEAKER) (test 0 /100 WBC 0-0 glmo=955) NEUTROPHILS RELATIVE PERCENT (BEAKER) (test 78 % idth=734) LYMPHOCYTES RELATIVE PERCENT (BEAKER) (test 11 % uabf=116) MONOCYTES RELATIVE PERCENT (BEAKER) (test 9 % zfaq=306) EOSINOPHILS RELATIVE PERCENT (BEAKER) (test 1 % agoa=411) BASOPHILS RELATIVE PERCENT (BEAKER) (test 0 % keqa=060) NEUTROPHILS ABSOLUTE COUNT (BEAKER) (test 10.80 K/ L 1.80-8.00 umpz=141) LYMPHOCYTES ABSOLUTE COUNT (BEAKER) (test 1.57 K/ L 1.48-4.50 uoom=629) MONOCYTES ABSOLUTE COUNT (BEAKER) (test 1.30 K/ L 0.00-1.30 ylqd=414) EOSINOPHILS ABSOLUTE COUNT (BEAKER) (test 0.20 K/ L 0.00-0.50 nccc=014) BASOPHILS ABSOLUTE COUNT (BEAKER) (test 0.04 K/ L 0.00-0.20 rehl=659) 0.00CALCIUM, [id number] 05:43:00 Test Item Value Reference Range Comments CALCIUM IONIZED (BEAKER) (test ebny=514) 0.97 mmol/L 1.12-1.27 PH, BLOOD (BEAKER) (test uchy=7382) 7.51 BASIC METABOLIC [id number] 05:35:00 Test Item Value Reference Range Comments SODIUM (BEAKER) (test 132 meq/L 136-145 rfvv=121) POTASSIUM (BEAKER) (test 4.2 meq/L 3.5-5.1 zuiz=561) CHLORIDE (BEAKER) (test 102 meq/L 98-107 ceov=013) CO2 (BEAKER) (test 22 meq/L 22-29 ejaq=821) BLOOD UREA NITROGEN 26 mg/dL 7-21 (BEAKER) (test imuz=003) CREATININE (BEAKER) (test 3.57 mg/dL 0.57-1.25 xznc=262) GLUCOSE RANDOM (BEAKER) 69 mg/dL 70-105 (test bghx=931) CALCIUM (BEAKER) (test 7.6 mg/dL 8.4-10.2 kjia=175) EGFR (BEAKER) (test 18 mL/min/1.73 sq m ESTIMATED GFR IS NOT uztc=2613) ACCURATE CREATININE CLEARANCE IN PREDICTING GLOMERULAR FILTRATION RATE. ESTIMATED GFR IS NOT APPLICABLE FOR DIALYSIS PATIENTS. [id number] 05:31:00 Test Item Value Reference Range Comments PHOSPHORUS (BEAKER) (test ghoh=869) 3.7 mg/dL 2.3-4.7 [id number] 05:31:00 Test Item Value Reference Range Comments MAGNESIUM (BEAKER) (test hjub=118) 1.8 mg/dL 1.6-2.6 [id number] 05:30:00 Test Item Value Reference Range Comments PARTIAL THROMBOPLASTIN TIME (BEAKER) (test 44.4 seconds 22.5-36.0 futj=180) PROTHROMBIN [id number] 05:29:00 Test Item Value Reference Range Comments PROTIME (BEAKER) (test ihvm=323) 14.5 seconds 11.7-14.7 INR (BEAKER) (test grwd=813) 1.1 <=5.9 RECOMMENDED COUMADIN/WARFARIN INR THERAPY RANGESSTANDARD DOSE: 2.0 - 3.0 Includes: PROPHYLAXIS forvenous thrombosis, systemic embolization; TREATMENT for venous thrombosis and/or pulmonary embolus.HIGH RISK: Target INR is 2.5-3.5 for patients with mechanical heart valves.POCT-GLUCOSE [id number] 22:10:00 Test Item Value Reference Range Comments POC-GLUCOSE METER (BEAKER) 106 mg/dL 70-110 TESTED AT [address] (test uamj=3180) [place] [id number] POCT-GLUCOSE [id number] 17:31:00 Test Item Value Reference Range Comments POC-GLUCOSE METER (BEAKER) 114 mg/dL 70-110 TESTED AT [address] (test lfxo=4860) [place] [id number] 15:36:00 Test Item Value Reference Range Comments PARTIAL THROMBOPLASTIN TIME (BEAKER) (test 38.5 seconds 22.5-36.0 hlyw=495) PROTHROMBIN [id number] 15:35:00 Test Item Value Reference Range Comments PROTIME (BEAKER) (test xboz=114) 14.6 seconds 11.7-14.7 INR (BEAKER) (test theb=783) 1.2 <=5.9 RECOMMENDED COUMADIN/WARFARIN INR THERAPY RANGESSTANDARD DOSE: 2.0 - 3.0 Includes: PROPHYLAXIS forvenous thrombosis, systemic embolization; TREATMENT for venous thrombosis and/or pulmonary embolus.HIGH RISK: Target INR is 2.5-3.5 for patients with mechanical heart valves.POCT-GLUCOSE [id number] 12:12:00 Test Item Value Reference Range Comments POC-GLUCOSE METER (BEAKER) 130 mg/dL 70-110 TESTED AT [address] (test bjbw=5416) [place] [address] POCT-GLUCOSE [id number] 08:04:00 Test Item Value Reference Range Comments POC-GLUCOSE METER (BEAKER) 96 mg/dL 70-110 TESTED AT [address] (test bmxy=6893) [place] [address] VANCOMYCIN LEVEL, [id number] 07:30:00 Test Item Value Reference Range Comments VANCOMYCIN RANDOM (BEAKER) (test ugid=380) 21.2 ug/mL Reference Range: No NormalsPOCT-GLUCOSE [id number] 20:25:00 Test Item Value Reference Range Comments POC-GLUCOSE METER (BEAKER) 152 mg/dL 70-110 TESTED AT [address] (test edql=2944) [place] [address] POCT-GLUCOSE [id number] 17:23:00 Test Item Value Reference Range Comments POC-GLUCOSE METER (BEAKER) 161 mg/dL 70-110 TESTED AT [address] (test dwsb=1003) [place] [address] [id number] 13:34:00 Test Item Value Reference Range Comments PROTIME (BEAKER) (test vzpp=479) 15.4 seconds 11.7-14.7 INR (BEAKER) (test oehc=106) 1.2 <=5.9 PARTIAL THROMBOPLASTIN TIME (BEAKER) (test 51.5 seconds 22.5-36.0 akcn=517) RECOMMENDED COUMADIN/WARFARIN INR THERAPY RANGESSTANDARD DOSE: 2.0 - 3.0 Includes: PROPHYLAXIS forvenous thrombosis, systemic embolization; TREATMENT for venous thrombosis and/or pulmonary embolus.HIGH RISK: Target INR is 2.5-3.5 for patients with mechanical heart valves.POCT-GLUCOSE [id number] 12:11:00 Test Item Value Reference Range Comments POC-GLUCOSE METER (BEAKER) 140 mg/dL 70-110 TESTED AT [address] (test exrk=0322) [place] [address] CBC W/PLT COUNT & AUTO [id number] 08:02:00 Test Item Value Reference Range Comments WHITE BLOOD CELL COUNT (BEAKER) (test biiy=781) 14.8 K/ L 4.0-10.0 RED BLOOD CELL COUNT (BEAKER) (test fgyr=170) 2.40 M/ L 4.20-5.80 HEMOGLOBIN (BEAKER) (test fxsl=082) 7.0 GM/DL 13.0-16.8 HEMATOCRIT (BEAKER) (test sssp=172) 21.6 % 40.0-50.0 MEAN CORPUSCULAR VOLUME (BEAKER) (test aazn=753) 90.0 fL 82.0-98.0 MEAN CORPUSCULAR HEMOGLOBIN (BEAKER) (test 29.2 pg 27.0-33.0 ekvz=989) MEAN CORPUSCULAR HEMOGLOBIN CONC (BEAKER) (test 32.5 GM/DL 32.0-36.0 zfkr=478) RED CELL DISTRIBUTION WIDTH (BEAKER) (test 15.8 % 10.3-14.2 mfue=382) PLATELET COUNT (BEAKER) (test cwdz=169) 276 K/CU MM 150-430 MEAN PLATELET VOLUME (BEAKER) (test zzsm=319) 6.8 fL 6.5-10.5 NUCLEATED RED BLOOD CELLS (BEAKER) (test 0 /100 WBC 0-0 abph=418) NEUTROPHILS RELATIVE PERCENT (BEAKER) (test 80 % qhgf=052) LYMPHOCYTES RELATIVE PERCENT (BEAKER) (test 10 % mapz=839) MONOCYTES RELATIVE PERCENT (BEAKER) (test 9 % dmoj=717) EOSINOPHILS RELATIVE PERCENT (BEAKER) (test 1 % wpgv=526) BASOPHILS RELATIVE PERCENT (BEAKER) (test 0 % jkrn=773) NEUTROPHILS ABSOLUTE COUNT (BEAKER) (test 11.80 K/ L 1.80-8.00 xoll=251) LYMPHOCYTES ABSOLUTE COUNT (BEAKER) (test 1.49 K/ L 1.48-4.50 tqtw=273) MONOCYTES ABSOLUTE COUNT (BEAKER) (test 1.28 K/ L 0.00-1.30 kjgu=612) EOSINOPHILS ABSOLUTE COUNT (BEAKER) (test 0.17 K/ L 0.00-0.50 kzrx=663) BASOPHILS ABSOLUTE COUNT (BEAKER) (test 0.04 K/ L 0.00-0.20 atkb=923) 0.00VANCOMYCIN LEVEL, [id number] 07:43:00 Test Item Value Reference Range Comments VANCOMYCIN RANDOM (BEAKER) (test kiws=244) 31.1 ug/mL Reference Range: No NormalsBASIC METABOLIC [id number] 07:30:00 Test Item Value Reference Range Comments SODIUM (BEAKER) (test 134 meq/L 136-145 jpkw=383) POTASSIUM (BEAKER) (test 3.6 meq/L 3.5-5.1 huco=919) CHLORIDE (BEAKER) (test 100 meq/L 98-107 fkqz=467) CO2 (BEAKER) (test 27 meq/L 22-29 xeon=052) BLOOD UREA NITROGEN 12 mg/dL 7-21 (BEAKER) (test lkll=140) CREATININE (BEAKER) (test 1.88 mg/dL 0.57-1.25 koia=658) GLUCOSE RANDOM (BEAKER) 109 mg/dL 70-105 (test ivfg=115) CALCIUM (BEAKER) (test 7.7 mg/dL 8.4-10.2 ypfm=572) EGFR (BEAKER) (test 37 mL/min/1.73 sq m ESTIMATED GFR IS NOT cuqx=1071) ACCURATE CREATININE CLEARANCE IN PREDICTING GLOMERULAR FILTRATION RATE. ESTIMATED GFR IS NOT APPLICABLE FOR DIALYSIS PATIENTS. [id number] 07:25:00 Test Item Value Reference Range Comments PHOSPHORUS (BEAKER) (test qfoc=577) 2.9 mg/dL 2.3-4.7 [id number] 07:25:00 Test Item Value Reference Range Comments MAGNESIUM (BEAKER) (test lrlq=275) 1.3 mg/dL 1.6-2.6 POCT-GLUCOSE [id number] 07:18:00 Test Item Value Reference Range Comments POC-GLUCOSE METER (BEAKER) 107 mg/dL 70-[address] [facility] [address] [facility] (test qyfr=1841) [facility] [address] CALCIUM, [id number] 06:57:00 Test Item Value Reference Range Comments CALCIUM IONIZED (BEAKER) (test ekri=008) 1.04 mmol/L 1.12-1.27 PH, BLOOD (BEAKER) (test azyb=2672) 7.44 BLOOD [id number] 17:00:00 Test Item Value Reference Range Comments CULTURE (BEAKER) (test vbwx=2090) No growth in 5 days BLOOD [id number] 17:00:00 Test Item Value Reference Range Comments CULTURE (BEAKER) (test cbkb=4853) No growth in 5 days POCT-GLUCOSE [id number] 12:01:00 Test Item Value Reference Range Comments POC-GLUCOSE METER (BEAKER) 128 mg/dL 70-110 TESTED AT [address] (test gqoy=4614) [facility] [address] POCT-GLUCOSE [id number] 07:48:00 Test Item Value Reference Range Comments POC-GLUCOSE METER (BEAKER) 100 mg/dL 70-110 TESTED AT [address] (test dzyx=7596) [facility] [address] VANCOMYCIN LEVEL, [id number] 05:36:00 Test Item Value Reference Range Comments VANCOMYCIN RANDOM (BEAKER) (test excz=837) 26.8 ug/mL Reference Range: No NormalsSPUTUM CULTURE + GRAM [id number] 00:09:00 Test Item Value Reference Range Comments CULTURE (BEAKER) (test Oropharyngeal contamination, nlld=0586) specimen rejected. Recollect requested. GRAM STAIN RESULT (BEAKER) No WBCs (test kzvz=1463) GRAM STAIN RESULT (BEAKER) >25 epithelial cells (test lqzk=84122) GRAM STAIN RESULT (BEAKER) 4+ gram positive rods (test gyax=39664) GRAM STAIN RESULT (BEAKER) 4+ gram positive cocci in pairs (test vgsd=168170) GRAM STAIN RESULT (BEAKER) 4+ budding yeast (test pnsm=614712) POCT-GLUCOSE [id number] 20:17:00 Test Item Value Reference Range Comments POC-GLUCOSE METER (BEAKER) 111 mg/dL 70-110 TESTED AT [address] (test dkrh=3864) [facility] [address] TSH/FREE T4 IF [id number] 18:39:00 Test Item Value Reference Range Comments THYROID STIMULATING HORMONE (BEAKER) (test 3.14 uIU/mL 0.35-4.94 fnfy=557) VITAMIN B12 AND [id number] 18:39:00 Test Item Value Reference Range Comments VITAMIN B12 (BEAKER) (test vsxb=522) 1407 pg/mL 213-816 FOLATE (BEAKER) (test iewq=536) 16.4 ng/mL >=7.0 Effective 09/08/2014: Folate Reference Range ChangeNew: >=7.0 Previous: & gt;=[id number] 18:12:00 Test Item Value Reference Range Comments CALCIUM (BEAKER) (test jvgm=610) 8.2 mg/dL 8.4-10.2 PROTHROMBIN [id number] 18:07:00 Test Item Value Reference Range Comments PROTIME (BEAKER) (test lrhg=577) 15.5 seconds 11.7-14.7 INR (BEAKER) (test mgif=253) 1.2 <=5.9 RECOMMENDED COUMADIN/WARFARIN INR THERAPY RANGESSTANDARD DOSE: 2.0 - 3.0 Includes: PROPHYLAXIS forvenous thrombosis, systemic embolization; TREATMENT for venous thrombosis and/or pulmonary embolus.HIGH RISK: Target INR is 2.5-3.5 for patients with mechanical heart valves.[id number] 18:06:00 Test Item Value Reference Range Comments PHOSPHORUS (BEAKER) (test covg=748) 3.4 mg/dL 2.3-4.7 [id number] 18:06:00 Test Item Value Reference Range Comments MAGNESIUM (BEAKER) (test zwyw=465) 1.5 mg/dL 1.6-2.6 HEPATIC FUNCTION [id number] 18:06:00 Test Item Value Reference Range Comments TOTAL PROTEIN (BEAKER) (test pphl=921) 5.9 gm/dL 6.0-8.3 ALBUMIN (BEAKER) (test mxoz=9226) 2.3 g/dL 3.5-5.0 BILIRUBIN TOTAL (BEAKER) (test pfcg=294) 0.4 mg/dL 0.2-1.2 BILIRUBIN DIRECT (BEAKER) (test mfkz=762) 0.2 mg/dL 0.1-0.5 ALKALINE PHOSPHATASE (BEAKER) (test qrxl=969) 118 U/L 40-150 AST (SGOT) (BEAKER) (test fxqp=748) 11 U/L 5-34 ALT (SGPT) (BEAKER) (test fict=835) 7 U/L 6-55 [id number] 17:57:00 Test Item Value Reference Range Comments AMMONIA (BEAKER) (test tfhn=568) 23 mol/L 18-72 POCT-GLUCOSE [id number] 17:55:00 Test Item Value Reference Range Comments POC-GLUCOSE METER (BEAKER) 137 mg/dL 70-110 TESTED AT [address] (test pcrk=5855) [facility] [address] POCT-GLUCOSE [id number] 17:01:00 Test Item Value Reference Range Comments POC-GLUCOSE METER (BEAKER) 62 mg/dL 70-110 TESTED AT [address] (test wfyt=5714) [facility] [address] [id number] 15:09:00 Test Item Value Reference Range Comments SODIUM (BEAKER) (test atan=228) 138 meq/L 136-145 POTASSIUM (BEAKER) (test 4.0 meq/L 3.5-5.1 Specimen slightly hemolyzed byct=282) CHLORIDE (BEAKER) (test 105 meq/L 98-107 kogb=199) CO2 (BEAKER) (test ydvf=930) 23 meq/L 22-29 BLOOD GAS, [id number] 14:56:00 Test Item Value Reference Range Comments PH ARTERIAL (BEAKER) (test perj=340) 7.53 7.35-7.45 PCO2 ARTERIAL (BEAKER) (test qbzp=138) 35 mmHg 35-45 PO2 ARTERIAL (BEAKER) (test yxam=078) 70 mmHg 80-90 O2 SATURATION ARTERIAL (BEAKER) (test izde=590) 95.5 % 96.0-97.0 HCO3 ARTERIAL (BEAKER) (test wzkj=900) 28 mmol/L 21-29 BASE EXCESS ARTERIAL (BEAKER) (test ivsi=311) 5.2 mmol/L -2.0-3.0 PATIENT TEMPERATURE (BEAKER) (test vixw=0997) 37.3 C FIO2 (BEAKER) (test hbqt=4524) 21.0 % CBC W/PLT COUNT & AUTO [id number] 14:56:00 Test Item Value Reference Range Comments WHITE BLOOD CELL COUNT (BEAKER) (test wwvz=779) 18.1 K/ L 4.0-10.0 RED BLOOD CELL COUNT (BEAKER) (test tvld=074) 2.43 M/ L 4.20-5.80 HEMOGLOBIN (BEAKER) (test rgyg=238) 7.3 GM/DL 13.0-16.8 HEMATOCRIT (BEAKER) (test wnqc=622) 22.2 % 40.0-50.0 MEAN CORPUSCULAR VOLUME (BEAKER) (test cfgu=704) 91.7 fL 82.0-98.0 MEAN CORPUSCULAR HEMOGLOBIN (BEAKER) (test 30.0 pg 27.0-33.0 nwom=626) MEAN CORPUSCULAR HEMOGLOBIN CONC (BEAKER) (test 32.7 GM/DL 32.0-36.0 kcer=279) RED CELL DISTRIBUTION WIDTH (BEAKER) (test 15.7 % 10.3-14.2 xxlc=167) PLATELET COUNT (BEAKER) (test rduz=400) 290 K/CU MM 150-430 MEAN PLATELET VOLUME (BEAKER) (test ilhx=448) 6.9 fL 6.5-10.5 NUCLEATED RED BLOOD CELLS (BEAKER) (test 0 /100 WBC 0-0 pkrh=899) NEUTROPHILS RELATIVE PERCENT (BEAKER) (test 84 % kcxo=273) LYMPHOCYTES RELATIVE PERCENT (BEAKER) (test 8 % ptjx=004) MONOCYTES RELATIVE PERCENT (BEAKER) (test 8 % mzbg=594) EOSINOPHILS RELATIVE PERCENT (BEAKER) (test 0 % tcdo=366) BASOPHILS RELATIVE PERCENT (BEAKER) (test 0 % yfqi=900) NEUTROPHILS ABSOLUTE COUNT (BEAKER) (test 15.10 K/ L 1.80-8.00 plre=534) LYMPHOCYTES ABSOLUTE COUNT (BEAKER) (test 1.51 K/ L 1.48-4.50 srha=025) MONOCYTES ABSOLUTE COUNT (BEAKER) (test 1.43 K/ L 0.00-1.30 lazr=766) EOSINOPHILS ABSOLUTE COUNT (BEAKER) (test 0.03 K/ L 0.00-0.50 juwq=810) BASOPHILS ABSOLUTE COUNT (BEAKER) (test 0.02 K/ L 0.00-0.20 viua=613) 0.00POCT-GLUCOSE [id number] 12:19:00 Test Item Value Reference Range Comments POC-GLUCOSE METER (BEAKER) 75 mg/dL 70-[address] [facility] [address] [facility] (test fkpl=2166) [facility] [address] [id number] 09:59:00 Test Item Value Reference Range Comments HAPTOGLOBIN (BEAKER) (test bnvp=350) > mg/dL 14-258 Effective 09/08/2014: Reference Range ChangeNew: 14-258 Previous: 36- 195LACTATE DEHYDROGENASE (LDH)2016-12-08 09:56:00 Test Item Value Reference Range Comments LACTATE DEHYDROGENASE (BEAKER) (test velp=268) 234 U/L 125-220 [id number] 09:35:00 Test Item Value Reference Range Comments FIBRINOGEN LEVEL (BEAKER) (test wrwp=973) 554 mg/dl 225-434 BASIC METABOLIC [id number] 08:56:00 Test Item Value Reference Range Comments SODIUM (BEAKER) (test 139 meq/L 136-145 jgji=531) POTASSIUM (BEAKER) (test 3.0 meq/L 3.5-5.1 znyl=136) CHLORIDE (BEAKER) (test 114 meq/L 98-107 oxim=353) CO2 (BEAKER) (test 18 meq/L 22-29 sqfl=785) BLOOD UREA NITROGEN 14 mg/dL 7-21 (BEAKER) (test ebsg=315) CREATININE (BEAKER) (test 1.68 mg/dL 0.57-1.25 ippb=321) GLUCOSE RANDOM (BEAKER) 65 mg/dL 70-105 (test cred=869) CALCIUM (BEAKER) (test 6.3 mg/dL 8.4-10.2 xpnj=219) EGFR (BEAKER) (test 42 mL/min/1.73 sq m ESTIMATED GFR IS NOT yhqc=3873) ACCURATE CREATININE CLEARANCE IN PREDICTING GLOMERULAR FILTRATION RATE. ESTIMATED GFR IS NOT APPLICABLE FOR DIALYSIS PATIENTS. CBC W/PLT COUNT & AUTO [id number] 08:55:00 Test Item Value Reference Range Comments WHITE BLOOD CELL COUNT (BEAKER) (test ttsk=408) 12.8 K/ L 4.0-10.0 RED BLOOD CELL COUNT (BEAKER) (test tqhq=241) 1.79 M/ L 4.20-5.80 HEMOGLOBIN (BEAKER) (test kamv=759) 5.4 GM/DL 13.0-16.8 HEMATOCRIT (BEAKER) (test bntv=321) 16.7 % 40.0-50.0 MEAN CORPUSCULAR VOLUME (BEAKER) (test tmmd=679) 93.5 fL 82.0-98.0 MEAN CORPUSCULAR HEMOGLOBIN (BEAKER) (test 30.2 pg 27.0-33.0 dunw=928) MEAN CORPUSCULAR HEMOGLOBIN CONC (BEAKER) (test 32.3 GM/DL 32.0-36.0 jspr=707) RED CELL DISTRIBUTION WIDTH (BEAKER) (test 15.9 % 10.3-14.2 nxql=715) PLATELET COUNT (BEAKER) (test jvhb=895) 211 K/CU MM 150-430 MEAN PLATELET VOLUME (BEAKER) (test euez=372) 6.8 fL 6.5-10.5 NUCLEATED RED BLOOD CELLS (BEAKER) (test 0 /100 WBC 0-0 pqff=644) NEUTROPHILS RELATIVE PERCENT (BEAKER) (test 82 % eyrt=508) LYMPHOCYTES RELATIVE PERCENT (BEAKER) (test 8 % lavp=532) MONOCYTES RELATIVE PERCENT (BEAKER) (test 9 % xcyr=143) EOSINOPHILS RELATIVE PERCENT (BEAKER) (test 0 % jucp=508) BASOPHILS RELATIVE PERCENT (BEAKER) (test 0 % lpqr=307) NEUTROPHILS ABSOLUTE COUNT (BEAKER) (test 10.50 K/ L 1.80-8.00 djsi=110) LYMPHOCYTES ABSOLUTE COUNT (BEAKER) (test 1.08 K/ L 1.48-4.50 lytk=179) MONOCYTES ABSOLUTE COUNT (BEAKER) (test 1.17 K/ L 0.00-1.30 bdsn=149) EOSINOPHILS ABSOLUTE COUNT (BEAKER) (test 0.06 K/ L 0.00-0.50 cldm=151) BASOPHILS ABSOLUTE COUNT (BEAKER) (test 0.04 K/ L 0.00-0.20 lupt=104) 0.00LACTIC ACID, VENOUS, WHOLE [id number] 08:52:00 Test Item Value Reference Range Comments LACTATE BLOOD VENOUS (2) (BEAKER) (test 0.5 mmol/L 0.5-2.2 tyky=8281) Effective 02/23/2016: Units/Reference Range ChangeNew: 0.5-2.2 mmol/L Previous: 5 -20 mg/dLPOCT-GLUCOSE [id number] 07:40:00 Test Item Value Reference Range Comments POC-GLUCOSE METER (BEAKER) 80 mg/dL 70-110 TESTED AT [address] (test wpph=0191) [place] [id number] POCT-GLUCOSE [id number] 21:47:00 Test Item Value Reference Range Comments POC-GLUCOSE METER (BEAKER) 97 mg/dL 70-110 TESTED AT [address] (test wfrj=8698) [place] [address] POCT-GLUCOSE [id number] 17:45:00 Test Item Value Reference Range Comments POC-GLUCOSE METER (BEAKER) 115 mg/dL 70-110 TESTED AT [address] (test ovqn=1958) [place] [id number] POCT-GLUCOSE [id number] 12:56:00 Test Item Value Reference Range Comments POC-GLUCOSE METER (BEAKER) 120 mg/dL 70-110 TESTED AT [address] (test lcxw=4696) [place] [id number] POCT-GLUCOSE [id number] 12:56:00 Test Item Value Reference Range Comments POC-GLUCOSE METER (BEAKER) 107 mg/dL 70-110 TESTED AT [address] (test uotx=9614) [place] [id number] CBC W/PLT COUNT & AUTO [id number] 11:18:00 Test Item Value Reference Range Comments WHITE BLOOD CELL COUNT (BEAKER) (test becu=040) 21.4 K/ L 4.0-10.0 RED BLOOD CELL COUNT (BEAKER) (test hhvk=846) 2.63 M/ L 4.20-5.80 HEMOGLOBIN (BEAKER) (test pamu=972) 7.5 GM/DL 13.0-16.8 HEMATOCRIT (BEAKER) (test ibgm=553) 24.1 % 40.0-50.0 MEAN CORPUSCULAR VOLUME (BEAKER) (test lxwn=321) 91.8 fL 82.0-98.0 MEAN CORPUSCULAR HEMOGLOBIN (BEAKER) (test 28.6 pg 27.0-33.0 rrql=967) MEAN CORPUSCULAR HEMOGLOBIN CONC (BEAKER) (test 31.1 GM/DL 32.0-36.0 cdii=637) RED CELL DISTRIBUTION WIDTH (BEAKER) (test 15.4 % 10.3-14.2 cogb=555) PLATELET COUNT (BEAKER) (test eedm=803) 297 K/CU MM 150-430 MEAN PLATELET VOLUME (BEAKER) (test celt=091) 7.0 fL 6.5-10.5 NUCLEATED RED BLOOD CELLS (BEAKER) (test 0 /100 WBC 0-0 dffd=448) NEUTROPHILS RELATIVE PERCENT (BEAKER) (test 88 % woam=410) LYMPHOCYTES RELATIVE PERCENT (BEAKER) (test 6 % khxt=488) MONOCYTES RELATIVE PERCENT (BEAKER) (test 6 % zthc=016) EOSINOPHILS RELATIVE PERCENT (BEAKER) (test 0 % fkzn=449) BASOPHILS RELATIVE PERCENT (BEAKER) (test 0 % wzfg=103) NEUTROPHILS ABSOLUTE COUNT (BEAKER) (test 18.90 K/ L 1.80-8.00 wlwg=477) LYMPHOCYTES ABSOLUTE COUNT (BEAKER) (test 1.25 K/ L 1.48-4.50 xcry=102) MONOCYTES ABSOLUTE COUNT (BEAKER) (test 1.26 K/ L 0.00-1.30 uhio=474) EOSINOPHILS ABSOLUTE COUNT (BEAKER) (test 0.05 K/ L 0.00-0.50 tufe=319) BASOPHILS ABSOLUTE COUNT (BEAKER) (test 0.01 K/ L 0.00-0.20 zboj=448) 0.000.520.000.000.560.000.000.000.00(MANUAL DIFFERENTIAL)2016-12-07 11:18:00 Test Item Value Reference Range Comments TOTAL COUNTED (BEAKER) (test lwtc=9814) CATHETER TIP [id number] 09:38:00 Test Item Value Reference Range Comments CULTURE (BEAKER) (test METHICILLIN RESISTANT 15-29 Colonies On imne=2814) STAPHYLOCOCCUS AUREUS Direct Plate Methicillin resistant Staphylococcus aureus Clindamycin (test code=10) Erythromycin (test code=4) Linezolid (test code=40) Oxacillin (test code=14) Rifampin (test code=43) Tetracycline (test code=2) Trimethoprim + Sulfamethoxazole (test code=47) Vancomycin (test code=13) CULTURE (BEAKER) (test <15 Colonies On kyur=063022) Direct Plate Methicillin resistant Staphylococcus aureusof a second type CALCIUM, [id number] 09:12:00 Test Item Value Reference Range Comments CALCIUM IONIZED (BEAKER) (test dsit=660) 1.04 mmol/L 1.12-1.27 PH, BLOOD (BEAKER) (test gpji=0684) 7.40 BASIC METABOLIC [id number] 07:52:00 Test Item Value Reference Range Comments SODIUM (BEAKER) (test 134 meq/L 136-145 glbo=877) POTASSIUM (BEAKER) (test 4.1 meq/L 3.5-5.1 tyyk=811) CHLORIDE (BEAKER) (test 103 meq/L 98-107 adhy=417) CO2 (BEAKER) (test 20 meq/L 22-29 wshk=801) BLOOD UREA NITROGEN 37 mg/dL 7-21 (BEAKER) (test mcvi=804) CREATININE (BEAKER) (test 3.25 mg/dL 0.57-1.25 tolv=222) GLUCOSE RANDOM (BEAKER) 129 mg/dL 70-105 (test kvui=341) CALCIUM (BEAKER) (test 8.1 mg/dL 8.4-10.2 kkwd=341) EGFR (BEAKER) (test 20 mL/min/1.73 sq m ESTIMATED GFR IS NOT xphd=2861) ACCURATE CREATININE CLEARANCE IN PREDICTING GLOMERULAR FILTRATION RATE. ESTIMATED GFR IS NOT APPLICABLE FOR DIALYSIS PATIENTS. [id number] 07:48:00 Test Item Value Reference Range Comments PHOSPHORUS (BEAKER) (test zbnl=242) 4.8 mg/dL 2.3-4.7 [id number] 07:48:00 Test Item Value Reference Range Comments MAGNESIUM (BEAKER) (test gohv=732) 1.9 mg/dL 1.6-2.6 ANAEROBIC [id number] 02:42:00 Test Item Value Reference Range Comments CULTURE (BEAKER) (test idui=0355) No anaerobes isolated POCT-GLUCOSE [id number] 20:57:00 Test Item Value Reference Range Comments POC-GLUCOSE METER (BEAKER) 191 mg/dL 70-[address] [facility] [address] (test xhbd=0238) [facility] [address] VANCOMYCIN LEVEL, [id number] 17:35:00 Test Item Value Reference Range Comments VANCOMYCIN RANDOM (BEAKER) (test yihj=813) 21.9 ug/mL Reference Range: No NormalsPOCT-GLUCOSE [id number] 13:28:00 Test Item Value Reference Range Comments POC-GLUCOSE METER (BEAKER) 202 mg/dL 70-[address] [facility] [address] [facility] [facility] (test ohur=4107) [facility] [address] POCT-GLUCOSE [id number] 08:30:00 Test Item Value Reference Range Comments POC-GLUCOSE METER (BEAKER) 144 mg/dL 70-[address] [facility] [address] [facility] (test hlom=7970) [facility] [address] BASIC METABOLIC [id number] 07:04:00 Test Item Value Reference Range Comments SODIUM (BEAKER) (test 134 meq/L 136-145 hfvp=212) POTASSIUM (BEAKER) (test 3.8 meq/L 3.5-5.1 apjv=708) CHLORIDE (BEAKER) (test 104 meq/L 98-107 zzis=010) CO2 (BEAKER) (test 21 meq/L 22-29 hawr=327) BLOOD UREA NITROGEN 33 mg/dL 7-21 (BEAKER) (test uuwi=730) CREATININE (BEAKER) (test 2.91 mg/dL 0.57-1.25 xgas=181) GLUCOSE RANDOM (BEAKER) 124 mg/dL 70-105 (test xdud=476) CALCIUM (BEAKER) (test 7.8 mg/dL 8.4-10.2 dhoa=276) EGFR (BEAKER) (test 22 mL/min/1.73 sq m ESTIMATED GFR IS NOT ioyt=4516) ACCURATE CREATININE CLEARANCE IN PREDICTING GLOMERULAR FILTRATION RATE. ESTIMATED GFR IS NOT APPLICABLE FOR DIALYSIS PATIENTS. PROTHROMBIN [id number] 07:03:00 Test Item Value Reference Range Comments PROTIME (BEAKER) (test wfkb=739) 14.7 seconds 11.7-14.7 INR (BEAKER) (test rnpt=150) 1.2 <=5.9 RECOMMENDED COUMADIN/WARFARIN INR THERAPY RANGESSTANDARD DOSE: 2.0 - 3.0 Includes: PROPHYLAXIS forvenous thrombosis, systemic embolization; TREATMENT for venous thrombosis and/or pulmonary embolus.HIGH RISK: Target INR is 2.5-3.5 for patients with mechanical heart valves.[id number] 07:01:00 Test Item Value Reference Range Comments PHOSPHORUS (BEAKER) (test anzd=845) 3.9 mg/dL 2.3-4.7 [id number] 07:01:00 Test Item Value Reference Range Comments MAGNESIUM (BEAKER) (test ajno=194) 1.7 mg/dL 1.6-2.6 CALCIUM, [id number] 06:45:00 Test Item Value Reference Range Comments CALCIUM IONIZED (BEAKER) (test uyzs=514) 1.00 mmol/L 1.12-1.27 PH, BLOOD (BEAKER) (test xzjn=3040) 7.43 POCT-GLUCOSE [id number] 21:06:00 Test Item Value Reference Range Comments POC-GLUCOSE METER (BEAKER) 167 mg/dL 70-110 TESTED AT [address] (test kurv=6559) [place] [address] POCT-GLUCOSE [id number] 17:43:00 Test Item Value Reference Range Comments POC-GLUCOSE METER (BEAKER) 212 mg/dL 70-110 TESTED AT [address] (test kpbk=0828) [place] [address]
[2018-02-01] MEDS ORDERED: NA CHLORIDE 0.9% 0 ML ONE (10:53)
[2018-02-01] MEDS ORDERED: NA CHLORIDE 0.9% 500 ML ONE (12:30)
[2018-02-01] MEDS ORDERED: ALBUTEROL 2.5 MG/3 ML NEB SOL ONE ×2 (12:33→13:00)
[2018-02-01] MEDS ORDERED: PROPOFOL 200 MG/20 ML VIAL IV ONE (12:47)
[2018-02-01] MEDS ORDERED: LIDOCAINE 1% MPF 5 ML VIAL ONE (12:47)
[2018-02-01 13:14] VITALS: TEMP 98.3
[2018-02-01 13:30] VITALS: BP 133/64; O2SAT 97
--- NOTE | 2018-02-01 23:56 | OP ---
Surgeon: Jhon Cruz MD Procedure Performed: Esophagogastroduodenoscopy. Indication For Procedure: Followup of esophageal ulcer. Plan For Anesthesia: Monitored anesthesia care. Complexity: Average. Technique: After obtaining informed consent from the patient and explaining risks and complications which include, but are not limited to bleeding, infection, perforation, and anesthesia complications, the patient was placed in the left lateral position and sedation was given from then on. The scope was advanced into the mouth and carefully guided up till the second portion of the duodenum. After c ompletion of examination, the scope and equipment withdrawn and procedure terminated in a safe manner . Findings: Esophagus: Proximal and mid esophagus are normal. In the distal esophagus, very mild ref lux esophagitis seen. The ulcers have almost totally healed. Biopsies taken from the regular Z-line and from the site of the ulcer. Stomach: Mild patchy erythema seen in the body and antrum. A few erosions seen in the antrum. Biop sies taken. Duodenum: The bulb and second portion appeared normal. Complications: None. Tolerance To Anesthesia: Excellent. Postoperative Diagnosis: Healed esophageal ulcer, mild esophagitis, gastritis, gastric erosions. Plan: Continue proton pump inhibitor twice a day as that has finally resulted in healing of his esop hageal ulcer. Avoid NSAIDs. Antireflux measures. Follow up in the GI clinic in 2 weeks. /BG Voice ID: [id number] Report ID: [id number]
== END 2018-02-01 14:42 | disposition home health service (06) ==
LOC: ENDO 10:44
PROVIDERS: ATTEND Internal Medicine Gastroenterology
PROC: 0DB68ZX Excision of Stomach, Via Natural or Artificial Opening Endoscopic, Diagnostic (ICD-10-PCS; 2018-02-01)
PROC: 0DB58ZX Excision of Esophagus, Via Natural or Artificial Opening Endoscopic, Diagnostic (ICD-10-PCS; principal; 2018-02-01 12:51)
DX: K22.10 Ulcer of esophagus without bleeding (principal); K25.9 Gastric ulcer, unspecified as acute or chronic, without hemorrhage or perforation; K29.70 Gastritis, unspecified, without bleeding; K21.0 Gastro-esophageal reflux disease with esophagitis; I10 Essential (primary) hypertension; J44.9 Chronic obstructive pulmonary disease, unspecified; I25.10 Atherosclerotic heart disease of native coronary artery without angina pectoris; E11.9 Type 2 diabetes mellitus without complications; F03.90 Unspecified dementia, unspecified severity, without behavioral disturbance, psychotic disturbance, mood disturbance, and anxiety; F31.9 Bipolar disorder, unspecified; F20.9 Schizophrenia, unspecified; Z95.5 Presence of coronary angioplasty implant and graft; Z87.891 Personal history of nicotine dependence
CPT/HCPCS: 82962; 88305; 88312; 94640

== ENCOUNTER 2018-02-08 18:44 | Inpatient (IN) | payer MEDICAID ==
--- OUTSIDE RECORDS SUMMARY | 2018-02-08 18:46 | XMS REPORT | Clinical Summary ---
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 Paraplegic spinal paralysis ([facility]) 12/26/2016 Sacral decubitus ulcer 12/26/2016 ESRD on hemodialysis ([facility]) 12/26/2016 Acute bilateral low back pain without sciatica 11/30/2016 Back pain 11/29/2016 Complications, dialysis, catheter, mechanical ([facility]) 04/06/2016 Angina effort ([facility]) 09/04/2014 CAD (coronary artery disease) 09/04/2014 Social History Tobacco Use Types Packs/Day Years Used Date Former Smoker 0 Alcohol Use Drinks/Week oz/Week Comments No Sex Assigned at Date Recorded Not on file Last Filed Vital Signs Not on file Plan of Treatment Not on file Implants 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 Expiration Model / Identifier Date Serial / Lot Infusion Set Bone Infuseii Lg [id number] - [id number] Bone N/A: MEDTRONIC: SPINAL 08/22/2018 [id number] / Implanted: Qty: 1 on 12/12/2016 by Eduardo Ruggiero MD Spine BIOLOGICS / Lumbar [id number] Matrix Floseal Hemo W/O Ndl 10 [id number] - [id number] Cement/Fi N/A: MA: BIOSCI 04/20/2019 [id number] / Implanted: Qty: 2 on 12/12/2016 by Eduardo Ruggiero MD ller/Adhe Spine / sive Lumbar [id number] Bone Putty Stimulan [facility] 620-010 - [id number] Cement/Fi N/A: BIOCOMPOSITES 08/21/2019 [id number] / Implanted: Qty: 1 on 12/12/2016 by Eduardo Ruggiero MD ller/Adhe Spine / sive Lumbar [id number] Connector Set Screw Joints N/A: MEDTRONIC [id number] / Implanted: Qty: 1 on 12/12/2016 by Eduardo Ruggiero MD Spine / Lumbar Scr Mas 8.5x90 [id number] - [id number] Spine N/A: MEDTRONIC:SPINE: [id number] / Implanted: Qty: 1 on 12/12/2016 by Eduardo Ruggiero MD Spine SOFAMOR DANEK / Lumbar [id number] Ballast Mas 8.5x80 Spine N/A: MEDTRONIC [id number] / Implanted: Qty: 1 on 12/12/2016 by Eduardo Ruggiero MD Spine / Lumbar [id number] Taco [id number] Spine N/A: MEDTRONIC [id number] / Implanted: Qty: 2 on 12/12/2016 by Eduardo Ruggiero MD Spine / Lumbar [id number] Connector 20mm Spine N/A: MEDTRONIC [id number] / Implanted: Qty: 1 on 12/12/2016 by Eduardo Ruggiero MD Spine / Lumbar Medtronic Sofamor Danek 10cc Sprinal Graft Spine N/A: MEDTR[employer]IC 2017 [id number] / Implanted: Qty: 1 on 12/12/2016 by Eduardo Ruggiero MD Spine [id number] / Lumbar Medtronic Sofamor Daek Orthoblend Small 10cc Spine N/A: MED[employer]IC 2017 [id number] / Implanted: Qty: 1 on 12/12/2016 by Eduardo Ruggiero MD Spine [id number] / Lumbar Medtronic Sofarmor Danek Orthoblend Small 10cc Spine N/A: MED[employer]IC [id number] / Implanted: Qty: 1 on 12/12/2016 by Eduardo Ruggiero MD Spine [id number] / Lumbar Screw Set Ti Ns Brk Off 5.5 - [id number] Spine N/A: [employer]IC:SPINAL [id number] / Implanted: Qty: 6 on 12/12/2016 by Eduardo Ruggiero MD Spine BIOLOGICS / Lumbar [id number] Screw [facility] Cc 7.5x50 [id number] - [id number] Spine N/A: [employer]TR[employer]IC:SPINAL [id number] / Implanted: Qty: 2 on 12/12/2016 by Eduardo Ruggiero MD Spine BIOLOGICS / Lumbar [id number] Screw [facility] Cc 7.5 X 45 [id number] - [id number] Spine N/A: [employer]IC:SPINAL [id number] / Implanted: Qty: 2 on 12/12/2016 by Eduardo Ruggiero MD Spine BIOLOGICS / Lumbar [id number] Results Not on fileafter 02/07/2017
--- OUTSIDE RECORDS SUMMARY | 2018-02-08 18:50 | XMS REPORT ---
:1960 [facility] Address [address] [place] [address] [address] [place] [address] Care Team Providers Name Role Phone Keo [...] Reference Range Comments METHYLMALONIC ACID, SERUM (test hwne=[id number]) 603 nmol/L 0-378 PERFORMED AT: [facility] [id number] INSURANCE SOLICITOR: Donnie Youssef MD PHONE: [phone], [id number] 06:50:00To start 15mins after 1st cultureSpecimen: BloodCollected: 2016 01:33 Status: Final Last Updated: 06/21/2017 06:49 (1) To start 15mins after 1st culture Culture Result (Final) (Final) No Growth After 5 DaysCULTURE, [id number] 06:50:00Specimen: BloodCollected: 06/16/2017 01: 20 Status: Final Last Updated: 06/21/2017 06:49 Culture Result (Final) ( Final) No Growth After 5 [id number] 09:05:00 Test Item Value Reference Range Comments [...] mL/min/1.73m\\S\\2 EGFR if Non- 17 Estimated Glomerular Barbadian (test mL/min/1.73m\\S\\2 Filtration Rate (eGFR) code=EGFRNA) Reference [...] of chronic kidney failure. CBC WITH AUTO [id number] 08:50:00 Test Item Value Reference Range Comments [...] code=IG%) 0.7 % 0.0-0.4 CBC WITH AUTO [id number] 01:49:00 Test Item Value Reference Range Comments [...] code=IG%) 0.9 % 0.0-0.4 CBC WITH AUTO [id number] 20:08:00 Test Item Value Reference Range Comments [...] code=IG%) 0.7 % 0.0-0.4 CBC WITH AUTO [id number] 13:58:00 Test Item Value Reference Range Comments [...] 1.0-3.0 IG% (test code=IG%) 0.7 % 0.0-0.4 [id number] 09:14:00 Test Item Value Reference Range Comments [...] mL/min/1.73m\\S\\2 EGFR if Non- 16 Estimated Glomerular Barb[place] (test mL/min/1.73m\\S\\2 Filtration Rate (eGFR) code=EGFRNA) Reference [...] of chronic kidney failure. CBC WITH AUTO [id number] 09:05:00 Test Item Value Reference Range Comments [...] code=IG%) 0.7 % 0.0-0.4 CBC WITH AUTO [id number] 02:17:00 Test Item Value Reference Range Comments [...] code=IG%) 0.7 % 0.0-0.4 CBC WITH AUTO [id number] 20:02:00 Test Item Value Reference Range Comments [...] code=IG%) 0.8 % 0.0-0.4 CBC WITH AUTO [id number] 14:17:00 Test Item Value Reference Range Comments [...] 1.0-3.0 IG% (test code=IG%) 0.9 % 0.0-0.4 [id number] 08:47:00 Test Item Value Reference Range Comments Magnesium (test code=MG) 1.9 mg/dl 1.6-2.3 [id number] 08:47:00 Test Item Value Reference Range Comments [...] mL/min/1.73m\\S\\2 EGFR if Non- 17 Estimated Glomerular Barb[place] (test mL/min/1.73m\\S\\2 Filtration Rate (eGFR) code=EGFRNA) Reference [...] of chronic kidney failure. CBC WITH AUTO [id number] 08:22:00 Test Item Value Reference Range Comments [...] code=IG%) 0.8 % 0.0-0.4 CBC WITH AUTO [id number] 03:42:00 Test Item Value Reference Range Comments [...] on ############### was changed to 1 by [id number] on 06/17/2017 03:42 Neutrophils (test 68 % 42-75 The value no value code=NEUTR) originally released by on ############### was changed to 68 by [id number] on 06/17/2017 03:42 Lymphocytes (test 16 % 13-42 The value no value code=LYMPH) originally released by on ############### was changed to 16 by [id number] on 06/17/2017 03:42 Monocytes (test 11 % 4-14 The value no value code=MONOS) originally released by on ############### was changed to 11 by [id number] on 06/17/2017 03:42 Eosinophils (test 3 % 1-3 The value no value code=EOS) originally released by on ############### was changed to 3 by [id number] on 06/17/2017 03:42 Basophils (test 1 % 0-1 The value no value code=BASO) originally released by on ############### was changed to 1 by [id number] on 06/17/2017 03:42 RBC Morphology (test Anisocytosis The value no value code=RBCMOR) Hypochromic originally released by on ############### was changed to Anisocytosis Hypochromic by [id number] on 06/17/2017 03:42 Platelet Morphology Giant platelets The value no value (test code=PLTMORPH) originally released by on ############### was changed to Giant platelets by [id number] on 06/17/2017 03:42 CBC WITH AUTO [id number] 19:54:00 Test Item Value Reference Range Comments [...] code=IG%) 0.8 % 0.0-0.4 CBC WITH AUTO [id number] 14:30:00 Test Item Value Reference Range Comments [...] code=IG%) 1.0 % 0.0-0.4 CBC WITH AUTO [id number] 07:35:00 Test Item Value Reference Range Comments [...] code=IG%) 1.2 % 0.0-0.4 HEP B SURFACE [id number] 07:14:00 Test Item Value Reference Range Comments [...] code=HBSAG) Negative (qualifier Negative value) TYPE & [id number] 04:15:00 Test Item Value Reference Range Comments ABO Blood Type (test code=ABO) O Rh (test code=RH) Positive Antibody Screen (test code=ABSCR) Negative Negative ARMBAND# (test code=ARMBAND) [id number] PRO-BNP(B-Type Natriuretic Peptide)2017-06-16 03:42:00 Test Item Value Reference Range Comments Pro-BNP(B-Peptide) 49325 pg/ml 0-125 THE METHODOLOGY FOR DETECTION OF [...] TIBC (test code=TIBC) 161 ug/dl 178-500 B12, [id number] 03:32:00 Test Item Value Reference Range Comments B12 (test code=B12) 717 pg/ml 239-941 [id number] 03:32:00 Test Item Value Reference Range Comments Folic Acid (test code=FOLIC) 5.35 ng/ml 2.76-20.00 IRON [id number] 03:32:00 Test Item Value Reference Range Comments Iron (test code=FETOT) 33 ug/dl 20-149 TIBC (test code=TIBC) 161 ug/dl 178-500 Iron Saturation (test code=FESAT) 20 % 16-62 [id number] 03:05:00 Test Item Value Reference Range Comments [...] (test code=BGCTHB) 9.6 gm/dl 11.5-17.4 O2Hb (test code=RWAH4WT) 94.7 % 95.0-99.0 COHb (test code=BGFCOHB) <2.8 [...] Notified (test code=BGTMNOTIFIED) 03:03 O2 Device (test code=SKS1QII8) ROOM AIR Instrument ID (test code=BGINSTRID) [id number] Reported By (test code=BGREPORTEDBY) LUCY GAMBLE GLYCOSALATED [id number] 02:39:00 Test Item Value Reference Range Comments Hemoglobin A1C (test 5.78 % 4.3-6.0 code=GLYCO) Mean Plasma Glucose (test 128 mg/dl 90-180 WHEN TEST RESULTS FOR A1C code=MPG) EXCEED 14.0, THE LINEAR LIMIT OF THE INSTRUMENT, THE CALCULATED RESULT FOR THE MEAN GLUCOSE IS NOT RELIABLE. CORONARY [id number] 02:22:00 Test Item Value Reference Range Comments [...] vLDL (test code=VLDL) 16 mg/dl 30-60 VANCOMYCIN, [id number] 02:19:00 Test Item Value Reference Range Comments Vancomycin, Trough (test 7.7 ug/ml 15.0-20.0 05/13/2009 Change in Therapeutic code=VANCT) Range, for Trough Level, has been implemented per P&T committee. INTERPRETATION GUIDE: CONSIDER SENSITIVITY REPORT IF NGUYEN IS=1 THERAPEUTIC RANGE IS 15-20 ug/ml IF NGUYEN IS > OR=2 CONSIDER ALTERNATE THERAPY [id number] 02:05:00 Test Item Value Reference Range Comments [...] mL/min/1.73m\\S\\2 EGFR if Non- 23 Estimated Glomerular Barb[place] (test mL/min/1.73m\\S\\2 Filtration Rate (eGFR) code=EGFRNA) Reference Intervals Decision Points for 18 years and older and average body mass: >=60 Does not exclude kidney disease. 30 - 59 Suggests moderate chronic kidney disease and indicates the need for further investigation including assessment of proteinuria and cardiovascular factors. < 30 Usually indicates a need for referral for assessment and management of chronic kidney failure. [id number] 02:05:00 Test Item Value Reference Range Comments Magnesium (test code=MG) 1.9 mg/dl 1.6-2.3 CBC WITH AUTO [id number] 02:03:00 Test Item Value Reference Range Comments [...] code=IG%) 0.9 % 0.0-0.4 AFB CULTURE + [id number] 12:29:00 Test Item Value Reference Range Comments CULTURE (BEAKER) (test No acid-fast bacilli isolated zcua=9596) in 42 days AFB SMEAR (BEAKER) (test No acid fast bacilli seen rwqk=182) AFB CULTURE + [id number] 12:28:00 Test Item Value Reference Range Comments CULTURE (BEAKER) (test No acid-fast bacilli isolated fwxs=4338) in 42 days AFB SMEAR (BEAKER) (test No acid fast bacilli seen vkim=540) FUNGUS CULTURE + [id number] 17:13:00 Test Item Value Reference Range Comments CULTURE (BEAKER) (test No fungus isolated in 28 days zouq=6982) FUNGUS SMEAR (BEAKER) (test No fungi seen gyox=9952) FUNGUS CULTURE + [id number] 17:13:00 Test Item Value Reference Range Comments CULTURE (BEAKER) (test No fungus isolated in 28 days qwwb=5675) FUNGUS SMEAR (BEAKER) (test No fungi seen ckxe=1707) FUNGUS CULTURE + [id number] 21:46:00 Test Item Value Reference Range Comments CULTURE (BEAKER) (test No fungus isolated in 28 days msgj=6916) FUNGUS SMEAR (BEAKER) (test No fungi seen tvzh=3252) POCT-GLUCOSE [id number] 17:22:00 Test Item Value Reference Range Comments POC-GLUCOSE METER (BEAKER) 169 mg/dL 70-110 TESTED AT [address] (test cjgb=8177) [place] [id number] POCT-GLUCOSE [id number] 12:13:00 Test Item Value Reference Range Comments POC-GLUCOSE METER (BEAKER) 165 mg/dL 70-110 TESTED AT [address] (test rxqz=3575) [place] [id number] POCT-GLUCOSE [id number] 07:48:00 Test Item Value Reference Range Comments POC-GLUCOSE METER (BEAKER) 132 mg/dL 70-110 TESTED AT [address] (test ggro=9122) [facility] [address] BASIC METABOLIC [id number] 07:26:00 Test Item Value Reference Range Comments SODIUM (BEAKER) (test 133 meq/L 136-145 jjbs=351) POTASSIUM (BEAKER) (test 4.2 meq/L 3.5-5.1 cyyn=591) CHLORIDE (BEAKER) (test 101 meq/L 98-107 vypn=359) CO2 (BEAKER) (test 22 meq/L 22-29 nabt=974) BLOOD UREA NITROGEN 38 mg/dL 7-21 (BEAKER) (test uptb=596) CREATININE (BEAKER) (test 4.01 mg/dL 0.57-1.25 awrk=809) GLUCOSE RANDOM (BEAKER) 110 mg/dL 70-105 (test qjif=450) CALCIUM (BEAKER) (test 8.7 mg/dL 8.4-10.2 xgxs=091) EGFR (BEAKER) (test 15 mL/min/1.73 sq m ESTIMATED GFR IS NOT avlr=7333) ACCURATE CREATININE CLEARANCE IN PREDICTING GLOMERULAR FILTRATION RATE. ESTIMATED GFR IS NOT APPLICABLE FOR DIALYSIS PATIENTS. [id number] 07:25:00 Test Item Value Reference Range Comments PHOSPHORUS (BEAKER) (test juts=818) 4.4 mg/dL 2.3-4.7 [id number] 07:25:00 Test Item Value Reference Range Comments MAGNESIUM (BEAKER) (test kcwx=890) 1.9 mg/dL 1.6-2.6 CBC W/PLT COUNT & AUTO [id number] 06:54:00 Test Item Value Reference Range Comments WHITE BLOOD CELL COUNT (BEAKER) (test slfe=010) 12.6 K/ L 4.0-10.0 RED BLOOD CELL COUNT (BEAKER) (test mrid=216) 2.78 M/ L 4.20-5.80 HEMOGLOBIN (BEAKER) (test gucz=653) 8.3 GM/DL 13.0-16.8 HEMATOCRIT (BEAKER) (test ywcz=992) 25.1 % 40.0-50.0 MEAN CORPUSCULAR VOLUME (BEAKER) (test dibu=939) 90.3 fL 82.0-98.0 MEAN CORPUSCULAR HEMOGLOBIN (BEAKER) (test 29.8 pg 27.0-33.0 alla=965) MEAN CORPUSCULAR HEMOGLOBIN CONC (BEAKER) (test 33.1 GM/DL 32.0-36.0 fszj=809) RED CELL DISTRIBUTION WIDTH (BEAKER) (test 16.1 % 10.3-14.2 ofov=428) PLATELET COUNT (BEAKER) (test degw=478) 290 K/CU MM 150-430 MEAN PLATELET VOLUME (BEAKER) (test vytz=750) 7.2 fL 6.5-10.5 NUCLEATED RED BLOOD CELLS (BEAKER) (test 0 /100 WBC 0-0 yuuv=841) NEUTROPHILS RELATIVE PERCENT (BEAKER) (test 74 % rusl=159) LYMPHOCYTES RELATIVE PERCENT (BEAKER) (test 15 % pndc=619) MONOCYTES RELATIVE PERCENT (BEAKER) (test 9 % pfyl=084) EOSINOPHILS RELATIVE PERCENT (BEAKER) (test 2 % junq=257) BASOPHILS RELATIVE PERCENT (BEAKER) (test 0 % oudb=307) NEUTROPHILS ABSOLUTE COUNT (BEAKER) (test 9.30 K/ L 1.80-8.00 chze=491) LYMPHOCYTES ABSOLUTE COUNT (BEAKER) (test 1.89 K/ L 1.48-4.50 qsqe=921) MONOCYTES ABSOLUTE COUNT (BEAKER) (test 1.14 K/ L 0.00-1.30 fsix=649) EOSINOPHILS ABSOLUTE COUNT (BEAKER) (test 0.26 K/ L 0.00-0.50 mmux=801) BASOPHILS ABSOLUTE COUNT (BEAKER) (test 0.05 K/ L 0.00-0.20 kbmo=798) 0.00POCT-GLUCOSE [id number] 22:31:00 Test Item Value Reference Range Comments POC-GLUCOSE METER (BEAKER) 133 mg/dL 70-110 TESTED AT [address] (test baua=3712) [place] [address] POCT-GLUCOSE [id number] 17:17:00 Test Item Value Reference Range Comments POC-GLUCOSE METER (BEAKER) 119 mg/dL 70-110 TESTED AT [address] (test pvrk=4350) [place] [address] POCT-GLUCOSE [id number] 11:43:00 Test Item Value Reference Range Comments POC-GLUCOSE METER (BEAKER) 175 mg/dL 70-110 TESTED AT [address] (test kfav=8229) [place] [address] CBC W/PLT COUNT & AUTO [id number] 08:39:00 Test Item Value Reference Range Comments WHITE BLOOD CELL COUNT (BEAKER) (test nlyo=892) 13.4 K/ L 4.0-10.0 RED BLOOD CELL COUNT (BEAKER) (test khzf=658) 2.91 M/ L 4.20-5.80 HEMOGLOBIN (BEAKER) (test nvyc=243) 8.6 GM/DL 13.0-16.8 HEMATOCRIT (BEAKER) (test mxvq=184) 26.5 % 40.0-50.0 MEAN CORPUSCULAR VOLUME (BEAKER) (test dhum=808) 91.1 fL 82.0-98.0 MEAN CORPUSCULAR HEMOGLOBIN (BEAKER) (test 29.4 pg 27.0-33.0 zkgw=266) MEAN CORPUSCULAR HEMOGLOBIN CONC (BEAKER) (test 32.3 GM/DL 32.0-36.0 zyzj=368) RED CELL DISTRIBUTION WIDTH (BEAKER) (test 16.0 % 10.3-14.2 cbno=738) PLATELET COUNT (BEAKER) (test zztm=631) 282 K/CU MM 150-430 MEAN PLATELET VOLUME (BEAKER) (test lmjy=128) 7.7 fL 6.5-10.5 NUCLEATED RED BLOOD CELLS (BEAKER) (test 0 /100 WBC 0-0 mzxy=622) NEUTROPHILS RELATIVE PERCENT (BEAKER) (test 72 % cxrk=680) LYMPHOCYTES RELATIVE PERCENT (BEAKER) (test 16 % dijf=953) MONOCYTES RELATIVE PERCENT (BEAKER) (test 10 % iaux=205) EOSINOPHILS RELATIVE PERCENT (BEAKER) (test 2 % iwkl=637) BASOPHILS RELATIVE PERCENT (BEAKER) (test 1 % idxr=259) NEUTROPHILS ABSOLUTE COUNT (BEAKER) (test 9.63 K/ L 1.80-8.00 ekzi=364) LYMPHOCYTES ABSOLUTE COUNT (BEAKER) (test 2.15 K/ L 1.48-4.50 uthl=756) MONOCYTES ABSOLUTE COUNT (BEAKER) (test 1.32 K/ L 0.00-1.30 yzji=123) EOSINOPHILS ABSOLUTE COUNT (BEAKER) (test 0.23 K/ L 0.00-0.50 hfgj=313) BASOPHILS ABSOLUTE COUNT (BEAKER) (test 0.10 K/ L 0.00-0.20 iaen=080) 0.000.730.001.460.000.000.000.000.000.000.000.000.000.000.000.00(MANUAL DIFFERENTIAL)2016-12-24 08:39:00 Test Item Value Reference Range Comments TOTAL COUNTED (BEAKER) (test hers=3911) POCT-GLUCOSE [id number] 07:47:00 Test Item Value Reference Range Comments POC-GLUCOSE METER (BEAKER) 139 mg/dL 70-110 TESTED AT [address] (test ydvh=2864) [facility] [address] BASIC METABOLIC [id number] 06:50:00 Test Item Value Reference Range Comments SODIUM (BEAKER) (test 133 meq/L 136-145 mbwp=794) POTASSIUM (BEAKER) (test 4.2 meq/L 3.5-5.1 jaez=525) CHLORIDE (BEAKER) (test 102 meq/L 98-107 mcec=517) CO2 (BEAKER) (test 21 meq/L 22-29 vkiy=726) BLOOD UREA NITROGEN 27 mg/dL 7-21 (BEAKER) (test vsuv=036) CREATININE (BEAKER) (test 3.13 mg/dL 0.57-1.25 hwei=363) GLUCOSE RANDOM (BEAKER) 100 mg/dL 70-105 (test rkko=382) CALCIUM (BEAKER) (test 8.8 mg/dL 8.4-10.2 efzk=418) EGFR (BEAKER) (test 21 mL/min/1.73 sq m ESTIMATED GFR IS NOT trfw=1055) ACCURATE CREATININE CLEARANCE IN PREDICTING GLOMERULAR FILTRATION RATE. ESTIMATED GFR IS NOT APPLICABLE FOR DIALYSIS PATIENTS. [id number] 06:41:00 Test Item Value Reference Range Comments PHOSPHORUS (BEAKER) (test lgke=681) 2.9 mg/dL 2.3-4.7 [id number] 06:41:00 Test Item Value Reference Range Comments MAGNESIUM (BEAKER) (test yumj=192) 1.7 mg/dL 1.6-2.6 POCT-GLUCOSE [id number] 21:52:00 Test Item Value Reference Range Comments POC-GLUCOSE METER (BEAKER) 97 mg/dL 70-110 TESTED AT [address] (test kxgb=5335) [facility] [address] POCT-GLUCOSE [id number] 17:28:00 Test Item Value Reference Range Comments POC-GLUCOSE METER (BEAKER) 105 mg/dL 70-110 TESTED AT [address] (test zcwm=2445) [facility] [address] POCT-GLUCOSE [id number] 12:31:00 Test Item Value Reference Range Comments POC-GLUCOSE METER (BEAKER) 215 mg/dL 70-110 TESTED AT [facility] [address] [facility] (test suti=7158) [facility] [address] POCT-GLUCOSE [id number] 08:19:00 Test Item Value Reference Range Comments POC-GLUCOSE METER (BEAKER) 135 mg/dL 70-110 TESTED AT [facility] [address] [facility] (test wliq=0564) [facility] [address] CBC W/PLT COUNT & AUTO [id number] 07:19:00 Test Item Value Reference Range Comments WHITE BLOOD CELL COUNT (BEAKER) (test dhiv=834) 15.0 K/ L 4.0-10.0 RED BLOOD CELL COUNT (BEAKER) (test kzog=835) 3.04 M/ L 4.20-5.80 HEMOGLOBIN (BEAKER) (test wuvf=405) 8.8 GM/DL 13.0-16.8 HEMATOCRIT (BEAKER) (test dzcc=202) 27.3 % 40.0-50.0 MEAN CORPUSCULAR VOLUME (BEAKER) (test ygig=942) 89.8 fL 82.0-98.0 MEAN CORPUSCULAR HEMOGLOBIN (BEAKER) (test 29.0 pg 27.0-33.0 zvfi=799) MEAN CORPUSCULAR HEMOGLOBIN CONC (BEAKER) (test 32.3 GM/DL 32.0-36.0 yuim=866) RED CELL DISTRIBUTION WIDTH (BEAKER) (test 17.0 % 10.3-14.2 qydd=204) PLATELET COUNT (BEAKER) (test ymof=943) 285 K/CU MM 150-430 MEAN PLATELET VOLUME (BEAKER) (test stgn=852) 7.2 fL 6.5-10.5 NUCLEATED RED BLOOD CELLS (BEAKER) (test 0 /100 WBC 0-0 zdpy=769) NEUTROPHILS RELATIVE PERCENT (BEAKER) (test 77 % xolw=951) LYMPHOCYTES RELATIVE PERCENT (BEAKER) (test 11 % enum=278) MONOCYTES RELATIVE PERCENT (BEAKER) (test 11 % frxv=732) EOSINOPHILS RELATIVE PERCENT (BEAKER) (test 1 % nwjo=329) BASOPHILS RELATIVE PERCENT (BEAKER) (test 0 % bdwc=342) NEUTROPHILS ABSOLUTE COUNT (BEAKER) (test 11.50 K/ L 1.80-8.00 cbuf=820) LYMPHOCYTES ABSOLUTE COUNT (BEAKER) (test 1.72 K/ L 1.48-4.50 uanp=080) MONOCYTES ABSOLUTE COUNT (BEAKER) (test 1.59 K/ L 0.00-1.30 yxly=322) EOSINOPHILS ABSOLUTE COUNT (BEAKER) (test 0.17 K/ L 0.00-0.50 siwr=672) BASOPHILS ABSOLUTE COUNT (BEAKER) (test 0.05 K/ L 0.00-0.20 vxcs=248) [id number] 06:41:00 Test Item Value Reference Range Comments PHOSPHORUS (BEAKER) (test yuwi=916) 2.1 mg/dL 2.3-4.7 [id number] 06:41:00 Test Item Value Reference Range Comments MAGNESIUM (BEAKER) (test zyol=643) 1.8 mg/dL 1.6-2.6 BASIC METABOLIC [id number] 06:41:00 Test Item Value Reference Range Comments SODIUM (BEAKER) (test 134 meq/L 136-145 lyid=339) POTASSIUM (BEAKER) (test 4.2 meq/L 3.5-5.1 nali=072) CHLORIDE (BEAKER) (test 103 meq/L 98-107 lvgx=670) CO2 (BEAKER) (test 23 meq/L 22-29 ukew=286) BLOOD UREA NITROGEN 18 mg/dL 7-21 (BEAKER) (test hmmz=886) CREATININE (BEAKER) (test 2.20 mg/dL 0.57-1.25 crfj=749) GLUCOSE RANDOM (BEAKER) 105 mg/dL 70-105 (test smza=487) CALCIUM (BEAKER) (test 8.5 mg/dL 8.4-10.2 kqvq=282) EGFR (BEAKER) (test 31 mL/min/1.73 sq m ESTIMATED GFR IS NOT nwav=6773) ACCURATE CREATININE CLEARANCE IN PREDICTING GLOMERULAR FILTRATION RATE. ESTIMATED GFR IS NOT APPLICABLE FOR DIALYSIS PATIENTS. POCT-GLUCOSE [id number] 21:43:00 Test Item Value Reference Range Comments POC-GLUCOSE METER (BEAKER) 278 mg/dL 70-110 TESTED AT [address] (test tagy=5231) [place] [id number] POCT-GLUCOSE [id number] 18:42:00 Test Item Value Reference Range Comments POC-GLUCOSE METER (BEAKER) 177 mg/dL 70-110 TESTED AT [place] [id number] [facility] (test mrmg=3192) [place] [address] POCT-GLUCOSE [id number] 14:53:00 Test Item Value Reference Range Comments POC-GLUCOSE METER (BEAKER) 197 mg/dL 70-110 TESTED AT [address] (test poyz=6801) [place] [id number] CBC W/PLT COUNT & AUTO [id number] 12:20:00 Test Item Value Reference Range Comments WHITE BLOOD CELL COUNT (BEAKER) (test cdma=850) 13.6 K/ L 4.0-10.0 RED BLOOD CELL COUNT (BEAKER) (test bbcq=311) 2.85 M/ L 4.20-5.80 HEMOGLOBIN (BEAKER) (test udun=164) 8.3 GM/DL 13.0-16.8 HEMATOCRIT (BEAKER) (test lflp=659) 25.8 % 40.0-50.0 MEAN CORPUSCULAR VOLUME (BEAKER) (test bbqn=344) 90.6 fL 82.0-98.0 MEAN CORPUSCULAR HEMOGLOBIN (BEAKER) (test 29.3 pg 27.0-33.0 foct=965) MEAN CORPUSCULAR HEMOGLOBIN CONC (BEAKER) (test 32.3 GM/DL 32.0-36.0 oomf=365) RED CELL DISTRIBUTION WIDTH (BEAKER) (test 16.7 % 10.3-14.2 honb=721) PLATELET COUNT (BEAKER) (test tmrk=885) 252 K/CU MM 150-430 MEAN PLATELET VOLUME (BEAKER) (test dckl=970) 7.4 fL 6.5-10.5 NUCLEATED RED BLOOD CELLS (BEAKER) (test 0 /100 WBC 0-0 jwat=323) NEUTROPHILS RELATIVE PERCENT (BEAKER) (test 75 % cqdv=131) LYMPHOCYTES RELATIVE PERCENT (BEAKER) (test 13 % mbtu=414) MONOCYTES RELATIVE PERCENT (BEAKER) (test 10 % sqlb=109) EOSINOPHILS RELATIVE PERCENT (BEAKER) (test 2 % twjz=923) BASOPHILS RELATIVE PERCENT (BEAKER) (test 0 % hsna=661) NEUTROPHILS ABSOLUTE COUNT (BEAKER) (test 10.20 K/ L 1.80-8.00 gpyc=830) LYMPHOCYTES ABSOLUTE COUNT (BEAKER) (test 1.78 K/ L 1.48-4.50 ezwj=201) MONOCYTES ABSOLUTE COUNT (BEAKER) (test 1.32 K/ L 0.00-1.30 zpis=448) EOSINOPHILS ABSOLUTE COUNT (BEAKER) (test 0.22 K/ L 0.00-0.50 mmui=108) BASOPHILS ABSOLUTE COUNT (BEAKER) (test 0.06 K/ L 0.00-0.20 rwtb=234) 0.00POCT-GLUCOSE [id number] 08:28:00 Test Item Value Reference Range Comments POC-GLUCOSE METER (BEAKER) 132 mg/dL 70-110 TESTED AT [facility] [address] [facility] (test fqlb=7168) [facility] [address] BASIC METABOLIC [id number] 07:26:00 Test Item Value Reference Range Comments SODIUM (BEAKER) (test 131 meq/L 136-145 neqj=992) POTASSIUM (BEAKER) (test 4.2 meq/L 3.5-5.1 rozt=859) CHLORIDE (BEAKER) (test 98 meq/L 98-107 fpss=073) CO2 (BEAKER) (test 24 meq/L 22-29 jxpj=178) BLOOD UREA NITROGEN 25 mg/dL 7-21 (BEAKER) (test jwck=223) CREATININE (BEAKER) (test 3.02 mg/dL 0.57-1.25 bfok=409) GLUCOSE RANDOM (BEAKER) 103 mg/dL 70-105 (test pkzi=937) CALCIUM (BEAKER) (test 8.1 mg/dL 8.4-10.2 mwrg=036) EGFR (BEAKER) (test 21 mL/min/1.73 sq m ESTIMATED GFR IS NOT toao=3224) ACCURATE CREATININE CLEARANCE IN PREDICTING GLOMERULAR FILTRATION RATE. ESTIMATED GFR IS NOT APPLICABLE FOR DIALYSIS PATIENTS. [id number] 07:17:00 Test Item Value Reference Range Comments PHOSPHORUS (BEAKER) (test yqbd=458) 3.1 mg/dL 2.3-4.7 [id number] 07:17:00 Test Item Value Reference Range Comments MAGNESIUM (BEAKER) (test gljw=023) 1.8 mg/dL 1.6-2.6 CALCIUM, [id number] 05:38:00 Test Item Value Reference Range Comments CALCIUM IONIZED (BEAKER) (test urat=351) 1.09 mmol/L 1.12-1.27 PH, BLOOD (BEAKER) (test jyho=6908) 7.45 POCT-GLUCOSE [id number] 21:45:00 Test Item Value Reference Range Comments POC-GLUCOSE METER (BEAKER) 121 mg/dL 70-110 TESTED AT [address] (test mmts=3895) [place] [id number] POCT-GLUCOSE [id number] 16:48:00 Test Item Value Reference Range Comments POC-GLUCOSE METER (BEAKER) 157 mg/dL 70-110 TESTED AT [address] (test fjhj=1958) [place] [id number] POCT-GLUCOSE [id number] 12:16:00 Test Item Value Reference Range Comments POC-GLUCOSE METER (BEAKER) 247 mg/dL 70-110 TESTED AT [address] (test wvbu=8330) [place] [id number] POCT-GLUCOSE [id number] 08:14:00 Test Item Value Reference Range Comments POC-GLUCOSE METER (BEAKER) 166 mg/dL 70-110 TESTED AT [address] (test niwy=9084) [place] [id number] BASIC METABOLIC [id number] 07:58:00 Test Item Value Reference Range Comments SODIUM (BEAKER) (test 131 meq/L 136-145 ohil=359) POTASSIUM (BEAKER) (test 3.9 meq/L 3.5-5.1 kbml=145) CHLORIDE (BEAKER) (test 99 meq/L 98-107 ouwq=653) CO2 (BEAKER) (test 26 meq/L 22-29 mwjy=319) BLOOD UREA NITROGEN 18 mg/dL 7-21 (BEAKER) (test ptey=336) CREATININE (BEAKER) (test 2.32 mg/dL 0.57-1.25 wqwq=864) GLUCOSE RANDOM (BEAKER) 145 mg/dL 70-105 (test vudh=826) CALCIUM (BEAKER) (test 8.1 mg/dL 8.4-10.2 gtls=908) EGFR (BEAKER) (test 29 mL/min/1.73 sq m ESTIMATED GFR IS NOT xvmi=3986) ACCURATE CREATININE CLEARANCE IN PREDICTING GLOMERULAR FILTRATION RATE. ESTIMATED GFR IS NOT APPLICABLE FOR DIALYSIS PATIENTS. CBC W/PLT COUNT & AUTO [id number] 07:50:00 Test Item Value Reference Range Comments WHITE BLOOD CELL COUNT (BEAKER) (test vull=953) 15.3 K/ L 4.0-10.0 RED BLOOD CELL COUNT (BEAKER) (test ejqu=875) 3.00 M/ L 4.20-5.80 HEMOGLOBIN (BEAKER) (test dfvt=730) 8.4 GM/DL 13.0-16.8 HEMATOCRIT (BEAKER) (test qqli=493) 27.3 % 40.0-50.0 MEAN CORPUSCULAR VOLUME (BEAKER) (test tytb=952) 90.9 fL 82.0-98.0 MEAN CORPUSCULAR HEMOGLOBIN (BEAKER) (test 28.0 pg 27.0-33.0 wfan=986) MEAN CORPUSCULAR HEMOGLOBIN CONC (BEAKER) (test 30.8 GM/DL 32.0-36.0 bkhe=761) RED CELL DISTRIBUTION WIDTH (BEAKER) (test 15.9 % 10.3-14.2 rnrq=903) PLATELET COUNT (BEAKER) (test nrcq=033) 271 K/CU MM 150-430 MEAN PLATELET VOLUME (BEAKER) (test mqsl=650) 7.4 fL 6.5-10.5 NUCLEATED RED BLOOD CELLS (BEAKER) (test 0 /100 WBC 0-0 cmpm=549) NEUTROPHILS RELATIVE PERCENT (BEAKER) (test 76 % vvfv=958) LYMPHOCYTES RELATIVE PERCENT (BEAKER) (test 14 % rjli=453) MONOCYTES RELATIVE PERCENT (BEAKER) (test 9 % khug=322) EOSINOPHILS RELATIVE PERCENT (BEAKER) (test 1 % tqln=729) BASOPHILS RELATIVE PERCENT (BEAKER) (test 0 % ilaq=218) NEUTROPHILS ABSOLUTE COUNT (BEAKER) (test 11.60 K/ L 1.80-8.00 tmxf=483) LYMPHOCYTES ABSOLUTE COUNT (BEAKER) (test 2.11 K/ L 1.48-4.50 bamr=654) MONOCYTES ABSOLUTE COUNT (BEAKER) (test 1.36 K/ L 0.00-1.30 itqs=645) EOSINOPHILS ABSOLUTE COUNT (BEAKER) (test 0.17 K/ L 0.00-0.50 hyfp=712) BASOPHILS ABSOLUTE COUNT (BEAKER) (test 0.06 K/ L 0.00-0.20 hijz=892) [id number] 07:24:00 Test Item Value Reference Range Comments PHOSPHORUS (BEAKER) (test vzxf=603) 2.1 mg/dL 2.3-4.7 [id number] 07:24:00 Test Item Value Reference Range Comments MAGNESIUM (BEAKER) (test wwkv=514) 1.6 mg/dL 1.6-2.6 POCT-GLUCOSE [id number] 20:38:00 Test Item Value Reference Range Comments POC-GLUCOSE METER (BEAKER) 191 mg/dL 70-110 TESTED AT [address] (test tofa=4762) [place] [id number] POCT-GLUCOSE [id number] 17:32:00 Test Item Value Reference Range Comments POC-GLUCOSE METER (BEAKER) 229 mg/dL 70-110 TESTED AT [address] (test qicm=5438) [place] [address] VANCOMYCIN LEVEL, [id number] 16:51:00 Test Item Value Reference Range Comments VANCOMYCIN TROUGH (BEAKER) (test zegn=155) 17.2 ug/mL 10.0-20.0 At end of dialysis on 12/20/16POCT-GLUCOSE [id number] 11:49:00 Test Item Value Reference Range Comments POC-GLUCOSE METER (BEAKER) 97 mg/dL 70-110 TESTED AT [address] (test njru=2253) [place] [id number] POCT-GLUCOSE [id number] 07:38:00 Test Item Value Reference Range Comments POC-GLUCOSE METER (BEAKER) 151 mg/dL 70-110 TESTED AT [address] (test uvid=7147) [place] [id number] BASIC METABOLIC [id number] 06:39:00 Test Item Value Reference Range Comments SODIUM (BEAKER) (test 134 meq/L 136-145 onck=216) POTASSIUM (BEAKER) (test 3.9 meq/L 3.5-5.1 jdld=111) CHLORIDE (BEAKER) (test 102 meq/L 98-107 nkzi=315) CO2 (BEAKER) (test 24 meq/L 22-29 cmaa=364) BLOOD UREA NITROGEN 23 mg/dL 7-21 (BEAKER) (test yect=347) CREATININE (BEAKER) (test 2.91 mg/dL 0.57-1.25 wckz=036) GLUCOSE RANDOM (BEAKER) 99 mg/dL 70-105 (test ljlk=210) CALCIUM (BEAKER) (test 8.2 mg/dL 8.4-10.2 ubel=836) EGFR (BEAKER) (test 22 mL/min/1.73 sq m ESTIMATED GFR IS NOT kdml=6443) ACCURATE CREATININE CLEARANCE IN PREDICTING GLOMERULAR FILTRATION RATE. ESTIMATED GFR IS NOT APPLICABLE FOR DIALYSIS PATIENTS. [id number] 06:37:00 Test Item Value Reference Range Comments PHOSPHORUS (BEAKER) (test epnd=634) 2.9 mg/dL 2.3-4.7 [id number] 06:37:00 Test Item Value Reference Range Comments MAGNESIUM (BEAKER) (test kerp=319) 1.6 mg/dL 1.6-2.6 CBC W/PLT COUNT & AUTO [id number] 06:36:00 Test Item Value Reference Range Comments WHITE BLOOD CELL COUNT (BEAKER) (test bjrv=741) 14.1 K/ L 4.0-10.0 RED BLOOD CELL COUNT (BEAKER) (test dvtl=518) 3.01 M/ L 4.20-5.80 HEMOGLOBIN (BEAKER) (test tezf=990) 8.7 GM/DL 13.0-16.8 HEMATOCRIT (BEAKER) (test insv=006) 26.8 % 40.0-50.0 MEAN CORPUSCULAR VOLUME (BEAKER) (test tvav=581) 88.9 fL 82.0-98.0 MEAN CORPUSCULAR HEMOGLOBIN (BEAKER) (test 28.8 pg 27.0-33.0 rptv=414) MEAN CORPUSCULAR HEMOGLOBIN CONC (BEAKER) (test 32.5 GM/DL 32.0-36.0 smab=454) RED CELL DISTRIBUTION WIDTH (BEAKER) (test 16.3 % 10.3-14.2 nbid=320) PLATELET COUNT (BEAKER) (test tiid=921) 242 K/CU MM 150-430 MEAN PLATELET VOLUME (BEAKER) (test bnro=403) 6.9 fL 6.5-10.5 NUCLEATED RED BLOOD CELLS (BEAKER) (test 0 /100 WBC 0-0 veem=735) NEUTROPHILS RELATIVE PERCENT (BEAKER) (test 73 % wcqp=448) LYMPHOCYTES RELATIVE PERCENT (BEAKER) (test 15 % pkif=696) MONOCYTES RELATIVE PERCENT (BEAKER) (test 9 % pftv=400) EOSINOPHILS RELATIVE PERCENT (BEAKER) (test 2 % ricg=134) BASOPHILS RELATIVE PERCENT (BEAKER) (test 0 % yiax=720) NEUTROPHILS ABSOLUTE COUNT (BEAKER) (test 10.30 K/ L 1.80-8.00 dwsk=780) LYMPHOCYTES ABSOLUTE COUNT (BEAKER) (test 2.14 K/ L 1.48-4.50 vvcs=883) MONOCYTES ABSOLUTE COUNT (BEAKER) (test 1.33 K/ L 0.00-1.30 mdga=387) EOSINOPHILS ABSOLUTE COUNT (BEAKER) (test 0.29 K/ L 0.00-0.50 yxvh=357) BASOPHILS ABSOLUTE COUNT (BEAKER) (test 0.06 K/ L 0.00-0.20 fkjm=139) 0.00CALCIUM, [id number] 06:24:00 Test Item Value Reference Range Comments CALCIUM IONIZED (BEAKER) (test qugo=856) 1.08 mmol/L 1.12-1.27 PH, BLOOD (BEAKER) (test sltw=2413) 7.46 POCT-GLUCOSE [id number] 22:24:00 Test Item Value Reference Range Comments POC-GLUCOSE METER (BEAKER) 166 mg/dL 70-110 TESTED AT [address] (test sziy=8303) [facility] [address] POCT-GLUCOSE [id number] 16:17:00 Test Item Value Reference Range Comments POC-GLUCOSE METER (BEAKER) 132 mg/dL 70-110 TESTED AT [address] (test mszo=4813) [facility] [address] POCT-GLUCOSE [id number] 12:16:00 Test Item Value Reference Range Comments POC-GLUCOSE METER (BEAKER) 90 mg/dL 70-110 TESTED AT [address] (test lfud=5499) [facility] [address] POCT-GLUCOSE [id number] 08:13:00 Test Item Value Reference Range Comments POC-GLUCOSE METER (BEAKER) 111 mg/dL 70-110 TESTED AT [facility] [address] [facility] (test yici=9116) [facility] [address] CBC W/PLT COUNT & AUTO [id number] 07:40:00 Test Item Value Reference Range Comments WHITE BLOOD CELL COUNT (BEAKER) (test lakn=419) 11.9 K/ L 4.0-10.0 RED BLOOD CELL COUNT (BEAKER) (test undj=165) 3.11 M/ L 4.20-5.80 HEMOGLOBIN (BEAKER) (test hjjc=041) 8.9 GM/DL 13.0-16.8 HEMATOCRIT (BEAKER) (test fawb=171) 28.0 % 40.0-50.0 MEAN CORPUSCULAR VOLUME (BEAKER) (test erlj=238) 90.3 fL 82.0-98.0 MEAN CORPUSCULAR HEMOGLOBIN (BEAKER) (test 28.7 pg 27.0-33.0 xumi=212) MEAN CORPUSCULAR HEMOGLOBIN CONC (BEAKER) (test 31.8 GM/DL 32.0-36.0 ktbo=785) RED CELL DISTRIBUTION WIDTH (BEAKER) (test 15.5 % 10.3-14.2 imyp=532) PLATELET COUNT (BEAKER) (test mtee=124) 252 K/CU MM 150-430 MEAN PLATELET VOLUME (BEAKER) (test xaof=003) 7.1 fL 6.5-10.5 NUCLEATED RED BLOOD CELLS (BEAKER) (test 0 /100 WBC 0-0 kijl=165) NEUTROPHILS RELATIVE PERCENT (BEAKER) (test 69 % mhac=616) LYMPHOCYTES RELATIVE PERCENT (BEAKER) (test 18 % gwyf=883) MONOCYTES RELATIVE PERCENT (BEAKER) (test 11 % uaph=701) EOSINOPHILS RELATIVE PERCENT (BEAKER) (test 2 % ujzw=695) BASOPHILS RELATIVE PERCENT (BEAKER) (test 0 % ilpw=572) NEUTROPHILS ABSOLUTE COUNT (BEAKER) (test 8.27 K/ L 1.80-8.00 xgqw=493) LYMPHOCYTES ABSOLUTE COUNT (BEAKER) (test 2.09 K/ L 1.48-4.50 xlhh=377) MONOCYTES ABSOLUTE COUNT (BEAKER) (test 1.35 K/ L 0.00-1.30 jarg=175) EOSINOPHILS ABSOLUTE COUNT (BEAKER) (test 0.19 K/ L 0.00-0.50 clua=931) BASOPHILS ABSOLUTE COUNT (BEAKER) (test 0.04 K/ L 0.00-0.20 csyx=380) [id number] 07:29:00 Test Item Value Reference Range Comments PHOSPHORUS (BEAKER) (test yuhe=543) 1.8 mg/dL 2.3-4.7 [id number] 07:29:00 Test Item Value Reference Range Comments MAGNESIUM (BEAKER) (test kvps=222) 1.6 mg/dL 1.6-2.6 BASIC METABOLIC [id number] 07:29:00 Test Item Value Reference Range Comments SODIUM (BEAKER) (test 135 meq/L 136-145 ikfw=753) POTASSIUM (BEAKER) (test 3.7 meq/L 3.5-5.1 swpg=462) CHLORIDE (BEAKER) (test 104 meq/L 98-107 cibn=252) CO2 (BEAKER) (test 24 meq/L 22-29 cnvb=476) BLOOD UREA NITROGEN 12 mg/dL 7-21 (BEAKER) (test xrkc=494) CREATININE (BEAKER) (test 2.00 mg/dL 0.57-1.25 sjzn=223) GLUCOSE RANDOM (BEAKER) 81 mg/dL 70-105 (test guat=302) CALCIUM (BEAKER) (test 8.2 mg/dL 8.4-10.2 pzpi=300) EGFR (BEAKER) (test 34 mL/min/1.73 sq m ESTIMATED GFR IS NOT ejyv=9791) ACCURATE CREATININE CLEARANCE IN PREDICTING GLOMERULAR FILTRATION RATE. ESTIMATED GFR IS NOT APPLICABLE FOR DIALYSIS PATIENTS. POCT-GLUCOSE [id number] 21:13:00 Test Item Value Reference Range Comments POC-GLUCOSE METER (BEAKER) 107 mg/dL 70-110 TESTED AT [address] (test nqzc=6105) [facility] [address] POCT-GLUCOSE [id number] 17:33:00 Test Item Value Reference Range Comments POC-GLUCOSE METER (BEAKER) 131 mg/dL 70-110 TESTED AT [address] (test rddo=2365) [facility] [address] POCT-GLUCOSE [id number] 13:05:00 Test Item Value Reference Range Comments POC-GLUCOSE METER (BEAKER) 188 mg/dL 70-110 TESTED AT [place] [id number] [facility] (test wtmm=8652) [facility] [address] POCT-GLUCOSE [id number] 09:01:00 Test Item Value Reference Range Comments POC-GLUCOSE METER (BEAKER) 103 mg/dL 70-110 TESTED AT [address] (test lnbk=7723) [facility] [address] CBC W/PLT COUNT & AUTO [id number] 07:08:00 Test Item Value Reference Range Comments WHITE BLOOD CELL COUNT (BEAKER) (test cpne=545) 12.7 K/ L 4.0-10.0 RED BLOOD CELL COUNT (BEAKER) (test scmx=954) 3.09 M/ L 4.20-5.80 HEMOGLOBIN (BEAKER) (test kgvc=059) 9.0 GM/DL 13.0-16.8 HEMATOCRIT (BEAKER) (test foef=291) 27.4 % 40.0-50.0 MEAN CORPUSCULAR VOLUME (BEAKER) (test kpkj=793) 88.8 fL 82.0-98.0 MEAN CORPUSCULAR HEMOGLOBIN (BEAKER) (test 29.0 pg 27.0-33.0 nctq=467) MEAN CORPUSCULAR HEMOGLOBIN CONC (BEAKER) (test 32.7 GM/DL 32.0-36.0 yfaa=198) RED CELL DISTRIBUTION WIDTH (BEAKER) (test 15.7 % 10.3-14.2 aqzp=167) PLATELET COUNT (BEAKER) (test zlln=176) 257 K/CU MM 150-430 MEAN PLATELET VOLUME (BEAKER) (test mjrk=699) 7.0 fL 6.5-10.5 NUCLEATED RED BLOOD CELLS (BEAKER) (test 0 /100 WBC 0-0 seem=765) NEUTROPHILS RELATIVE PERCENT (BEAKER) (test 74 % gtux=455) LYMPHOCYTES RELATIVE PERCENT (BEAKER) (test 14 % mimq=212) MONOCYTES RELATIVE PERCENT (BEAKER) (test 9 % ljkx=584) EOSINOPHILS RELATIVE PERCENT (BEAKER) (test 2 % hseg=344) BASOPHILS RELATIVE PERCENT (BEAKER) (test 0 % xmyg=049) NEUTROPHILS ABSOLUTE COUNT (BEAKER) (test 9.38 K/ L 1.80-8.00 aurv=561) LYMPHOCYTES ABSOLUTE COUNT (BEAKER) (test 1.80 K/ L 1.48-4.50 giac=546) MONOCYTES ABSOLUTE COUNT (BEAKER) (test 1.20 K/ L 0.00-1.30 ziyr=005) EOSINOPHILS ABSOLUTE COUNT (BEAKER) (test 0.24 K/ L 0.00-0.50 viyk=084) BASOPHILS ABSOLUTE COUNT (BEAKER) (test 0.05 K/ L 0.00-0.20 dbwx=642) [id number] 06:17:00 Test Item Value Reference Range Comments PHOSPHORUS (BEAKER) (test tzyy=383) 2.4 mg/dL 2.3-4.7 [id number] 06:17:00 Test Item Value Reference Range Comments MAGNESIUM (BEAKER) (test hsss=766) 1.5 mg/dL 1.6-2.6 BASIC METABOLIC [id number] 06:17:00 Test Item Value Reference Range Comments SODIUM (BEAKER) (test 135 meq/L 136-145 rkjd=366) POTASSIUM (BEAKER) (test 3.7 meq/L 3.5-5.1 wzhe=758) CHLORIDE (BEAKER) (test 104 meq/L 98-107 bvmm=223) CO2 (BEAKER) (test 23 meq/L 22-29 auvz=666) BLOOD UREA NITROGEN 24 mg/dL 7-21 (BEAKER) (test nyov=585) CREATININE (BEAKER) (test 2.70 mg/dL 0.57-1.25 axfq=047) GLUCOSE RANDOM (BEAKER) 93 mg/dL 70-105 (test nufo=344) CALCIUM (BEAKER) (test 8.4 mg/dL 8.4-10.2 purh=274) EGFR (BEAKER) (test 24 mL/min/1.73 sq m ESTIMATED GFR IS NOT ovxb=5705) ACCURATE CREATININE CLEARANCE IN PREDICTING GLOMERULAR FILTRATION RATE. ESTIMATED GFR IS NOT APPLICABLE FOR DIALYSIS PATIENTS. POCT-GLUCOSE [id number] 23:43:00 Test Item Value Reference Range Comments POC-GLUCOSE METER (BEAKER) 100 mg/dL 70-110 TESTED AT [address] (test ahtk=5629) [place] [id number] POCT-GLUCOSE [id number] 17:44:00 Test Item Value Reference Range Comments POC-GLUCOSE METER (BEAKER) 208 mg/dL 70-110 TESTED AT [address] (test zcgg=0595) [place] [address] ANAEROBIC [id number] 14:43:00 Test Item Value Reference Range Comments CULTURE (BEAKER) (test mnxc=1061) No anaerobes isolated ANAEROBIC [id number] 14:42:00 Test Item Value Reference Range Comments CULTURE (BEAKER) (test kfib=6409) No anaerobes isolated POCT-GLUCOSE [id number] 12:02:00 Test Item Value Reference Range Comments POC-GLUCOSE METER (BEAKER) 208 mg/dL 70-110 TESTED AT [address] (test otsz=0177) [place] [address] POCT-GLUCOSE [id number] 09:52:00 Test Item Value Reference Range Comments POC-GLUCOSE METER (BEAKER) 86 mg/dL 70-110 TESTED AT [address] (test wjin=2551) [place] [address] CBC W/PLT COUNT & AUTO [id number] 07:11:00 Test Item Value Reference Range Comments WHITE BLOOD CELL COUNT (BEAKER) (test grni=073) 11.1 K/ L 4.0-10.0 RED BLOOD CELL COUNT (BEAKER) (test aimr=177) 3.26 M/ L 4.20-5.80 HEMOGLOBIN (BEAKER) (test slxo=801) 9.6 GM/DL 13.0-16.8 HEMATOCRIT (BEAKER) (test dcwt=134) 29.4 % 40.0-50.0 MEAN CORPUSCULAR VOLUME (BEAKER) (test iatn=210) 90.2 fL 82.0-98.0 MEAN CORPUSCULAR HEMOGLOBIN (BEAKER) (test 29.5 pg 27.0-33.0 dkuu=940) MEAN CORPUSCULAR HEMOGLOBIN CONC (BEAKER) (test 32.7 GM/DL 32.0-36.0 dzwl=004) RED CELL DISTRIBUTION WIDTH (BEAKER) (test 14.7 % 10.3-14.2 rddh=653) PLATELET COUNT (BEAKER) (test dbtt=300) 280 K/CU MM 150-430 MEAN PLATELET VOLUME (BEAKER) (test lklz=869) 6.8 fL 6.5-10.5 NUCLEATED RED BLOOD CELLS (BEAKER) (test 0 /100 WBC 0-0 qmwo=889) NEUTROPHILS RELATIVE PERCENT (BEAKER) (test 73 % wefm=110) LYMPHOCYTES RELATIVE PERCENT (BEAKER) (test 15 % eoxl=314) MONOCYTES RELATIVE PERCENT (BEAKER) (test 10 % xjdn=927) EOSINOPHILS RELATIVE PERCENT (BEAKER) (test 2 % kmlc=736) BASOPHILS RELATIVE PERCENT (BEAKER) (test 0 % wdse=617) NEUTROPHILS ABSOLUTE COUNT (BEAKER) (test 8.08 K/ L 1.80-8.00 ftne=608) LYMPHOCYTES ABSOLUTE COUNT (BEAKER) (test 1.66 K/ L 1.48-4.50 wklk=560) MONOCYTES ABSOLUTE COUNT (BEAKER) (test 1.06 K/ L 0.00-1.30 idvf=931) EOSINOPHILS ABSOLUTE COUNT (BEAKER) (test 0.26 K/ L 0.00-0.50 kbyt=437) BASOPHILS ABSOLUTE COUNT (BEAKER) (test 0.05 K/ L 0.00-0.20 ytax=500) [id number] 06:02:00 Test Item Value Reference Range Comments PHOSPHORUS (BEAKER) (test nvcg=993) 1.7 mg/dL 2.3-4.7 [id number] 06:02:00 Test Item Value Reference Range Comments MAGNESIUM (BEAKER) (test muzu=250) 1.5 mg/dL 1.6-2.6 BASIC METABOLIC [id number] 06:02:00 Test Item Value Reference Range Comments SODIUM (BEAKER) (test 136 meq/L 136-145 qeiz=742) POTASSIUM (BEAKER) (test 3.9 meq/L 3.5-5.1 ztus=962) CHLORIDE (BEAKER) (test 103 meq/L 98-107 pund=424) CO2 (BEAKER) (test 25 meq/L 22-29 epfo=015) BLOOD UREA NITROGEN 13 mg/dL 7-21 (BEAKER) (test lrmz=926) CREATININE (BEAKER) (test 1.67 mg/dL 0.57-1.25 cmtt=431) GLUCOSE RANDOM (BEAKER) 74 mg/dL 70-105 (test hulu=784) CALCIUM (BEAKER) (test 8.7 mg/dL 8.4-10.2 andr=491) EGFR (BEAKER) (test 42 mL/min/1.73 sq m ESTIMATED GFR IS NOT bbdq=2829) ACCURATE CREATININE CLEARANCE IN PREDICTING GLOMERULAR FILTRATION RATE. ESTIMATED GFR IS NOT APPLICABLE FOR DIALYSIS PATIENTS. POCT-GLUCOSE [id number] 21:46:00 Test Item Value Reference Range Comments POC-GLUCOSE METER (BEAKER) 83 mg/dL 70-110 TESTED AT [address] (test pjor=9278) [place] [id number] POCT-GLUCOSE [id number] 17:45:00 Test Item Value Reference Range Comments POC-GLUCOSE METER (BEAKER) 83 mg/dL 70-110 TESTED AT [address] (test swru=3557) [place] [id number] POCT-GLUCOSE [id number] 11:03:00 Test Item Value Reference Range Comments POC-GLUCOSE METER (BEAKER) 152 mg/dL 70-110 TESTED AT [address] (test rrfq=2177) [facility] [address] CBC W/PLT COUNT & AUTO [id number] 08:54:00 Test Item Value Reference Range Comments WHITE BLOOD CELL COUNT (BEAKER) (test have=830) 14.2 K/ L 4.0-10.0 RED BLOOD CELL COUNT (BEAKER) (test uyln=049) 2.99 M/ L 4.20-5.80 HEMOGLOBIN (BEAKER) (test tbig=290) 8.6 GM/DL 13.0-16.8 HEMATOCRIT (BEAKER) (test elky=782) 27.1 % 40.0-50.0 MEAN CORPUSCULAR VOLUME (BEAKER) (test hxgn=601) 90.6 fL 82.0-98.0 MEAN CORPUSCULAR HEMOGLOBIN (BEAKER) (test 28.6 pg 27.0-33.0 wnmd=639) MEAN CORPUSCULAR HEMOGLOBIN CONC (BEAKER) (test 31.6 GM/DL 32.0-36.0 kqqw=196) RED CELL DISTRIBUTION WIDTH (BEAKER) (test 14.6 % 10.3-14.2 phdn=164) PLATELET COUNT (BEAKER) (test rehc=026) 285 K/CU MM 150-430 MEAN PLATELET VOLUME (BEAKER) (test kkpb=367) 7.1 fL 6.5-10.5 NUCLEATED RED BLOOD CELLS (BEAKER) (test 0 /100 WBC 0-0 ankl=300) NEUTROPHILS RELATIVE PERCENT (BEAKER) (test 79 % ttll=039) LYMPHOCYTES RELATIVE PERCENT (BEAKER) (test 10 % xhwb=826) MONOCYTES RELATIVE PERCENT (BEAKER) (test 9 % lywp=800) EOSINOPHILS RELATIVE PERCENT (BEAKER) (test 2 % bxgk=790) BASOPHILS RELATIVE PERCENT (BEAKER) (test 0 % oyfa=601) NEUTROPHILS ABSOLUTE COUNT (BEAKER) (test 11.20 K/ L 1.80-8.00 dpou=832) LYMPHOCYTES ABSOLUTE COUNT (BEAKER) (test 1.40 K/ L 1.48-4.50 lade=113) MONOCYTES ABSOLUTE COUNT (BEAKER) (test 1.30 K/ L 0.00-1.30 pzmi=512) EOSINOPHILS ABSOLUTE COUNT (BEAKER) (test 0.27 K/ L 0.00-0.50 olxk=062) BASOPHILS ABSOLUTE COUNT (BEAKER) (test 0.04 K/ L 0.00-0.20 holw=753) 0.00BASIC METABOLIC [id number] 08:46:00 Test Item Value Reference Range Comments SODIUM (BEAKER) (test 138 meq/L 136-145 chmw=618) POTASSIUM (BEAKER) (test 3.8 meq/L 3.5-5.1 kvak=017) CHLORIDE (BEAKER) (test 103 meq/L 98-107 dzsz=243) CO2 (BEAKER) (test 25 meq/L 22-29 kake=452) BLOOD UREA NITROGEN 29 mg/dL 7-21 (BEAKER) (test ikca=099) CREATININE (BEAKER) (test 2.68 mg/dL 0.57-1.25 mcan=954) GLUCOSE RANDOM (BEAKER) 91 mg/dL 70-105 (test xdgg=451) CALCIUM (BEAKER) (test 7.9 mg/dL 8.4-10.2 uvsu=424) EGFR (BEAKER) (test 25 mL/min/1.73 sq m ESTIMATED GFR IS NOT uzkb=8040) ACCURATE CREATININE CLEARANCE IN PREDICTING GLOMERULAR FILTRATION RATE. ESTIMATED GFR IS NOT APPLICABLE FOR DIALYSIS PATIENTS. VANCOMYCIN LEVEL, [id number] 07:53:00 Test Item Value Reference Range Comments VANCOMYCIN RANDOM (BEAKER) (test nzbi=577) 15.1 ug/mL Reference Range: No NormalsPOCT-GLUCOSE [id number] 07:52:00 Test Item Value Reference Range Comments POC-GLUCOSE METER (BEAKER) 126 mg/dL 70-110 TESTED AT [address] (test pytr=2509) [place] [address] [id number] 07:50:00 Test Item Value Reference Range Comments PHOSPHORUS (BEAKER) (test hfdt=756) 2.1 mg/dL 2.3-4.7 [id number] 07:50:00 Test Item Value Reference Range Comments MAGNESIUM (BEAKER) (test rmih=007) 1.7 mg/dL 1.6-2.6 POCT-GLUCOSE [id number] 21:08:00 Test Item Value Reference Range Comments POC-GLUCOSE METER (BEAKER) 234 mg/dL 70-110 TESTED AT [address] (test yqmn=0416) [place] [address] POCT-GLUCOSE [id number] 17:02:00 Test Item Value Reference Range Comments POC-GLUCOSE METER (BEAKER) 230 mg/dL 70-110 TESTED AT [address] (test juyl=6760) [place] [address] SURGICALLY OBTAINED CULTURE + GRAM [id number] 09:26:00 Test Item Value Reference Range Comments CULTURE (BEAKER) (test <1+ Same organism has been jjek=4775) isolated from cultures(s) of the same body site and collection date. Repeat identification and susceptibility testing performed only after consultation with the clinical microbiology laboratory.Refer to previous culture ofMethicillin resistant Staphylococcus aureus GRAM STAIN RESULT <1+ WBCs (BEAKER) (test zral=3683) GRAM STAIN RESULT No organisms seen (BEAKER) (test rakj=375320) SURGICALLY OBTAINED CULTURE + GRAM [id number] 09:25:00 Test Item Value Reference Range Comments CULTURE (BEAKER) (test METHICILLIN RESISTANT <1+ Methicillin tfbw=1366) STAPHYLOCOCCUS AUREUS resistant Staphylococcus aureus Clindamycin (test code=10) Erythromycin (test code=4) Linezolid (test code=40) Oxacillin (test code=14) Rifampin (test code=43) Tetracycline (test code=2) Trimethoprim + Sulfamethoxazole (test code=47) Vancomycin (test code=13) CULTURE (BEAKER) (test METHICILLIN RESISTANT <1+ Methicillin glsg=82556) STAPHYLOCOCCUS AUREUS resistant Staphylococcus aureusof a second type Clindamycin (test code=10) Erythromycin (test code=4) Linezolid (test code=40) Oxacillin (test code=14) Rifampin (test code=43) Tetracycline (test code=2) Trimethoprim + Sulfamethoxazole (test code=47) Vancomycin (test code=13) GRAM STAIN RESULT No White blood cells (BEAKER) (test gzab=6079) seen GRAM STAIN RESULT No organisms seen (BEAKER) (test ikot=000068) POCT-GLUCOSE [id number] 08:39:00 Test Item Value Reference Range Comments POC-GLUCOSE METER (BEAKER) 129 mg/dL 70-110 TESTED AT [address] (test nqph=6605) [facility] [address] CBC W/PLT COUNT & AUTO [id number] 06:51:00 Test Item Value Reference Range Comments WHITE BLOOD CELL COUNT (BEAKER) (test umww=580) 17.4 K/ L 4.0-10.0 RED BLOOD CELL COUNT (BEAKER) (test kbhd=558) 2.99 M/ L 4.20-5.80 HEMOGLOBIN (BEAKER) (test xcth=400) 8.9 GM/DL 13.0-16.8 HEMATOCRIT (BEAKER) (test hlgn=624) 27.1 % 40.0-50.0 MEAN CORPUSCULAR VOLUME (BEAKER) (test lotg=032) 90.6 fL 82.0-98.0 MEAN CORPUSCULAR HEMOGLOBIN (BEAKER) (test 29.6 pg 27.0-33.0 vcpq=326) MEAN CORPUSCULAR HEMOGLOBIN CONC (BEAKER) (test 32.7 GM/DL 32.0-36.0 oyxq=958) RED CELL DISTRIBUTION WIDTH (BEAKER) (test 15.3 % 10.3-14.2 ucjo=585) PLATELET COUNT (BEAKER) (test kuyc=507) 246 K/CU MM 150-430 MEAN PLATELET VOLUME (BEAKER) (test mjtf=660) 6.7 fL 6.5-10.5 NUCLEATED RED BLOOD CELLS (BEAKER) (test 0 /100 WBC 0-0 yqlo=987) NEUTROPHILS RELATIVE PERCENT (BEAKER) (test 83 % kgyb=473) LYMPHOCYTES RELATIVE PERCENT (BEAKER) (test 7 % dgci=012) MONOCYTES RELATIVE PERCENT (BEAKER) (test 9 % cgrw=511) EOSINOPHILS RELATIVE PERCENT (BEAKER) (test 1 % xguz=277) BASOPHILS RELATIVE PERCENT (BEAKER) (test 0 % yson=399) NEUTROPHILS ABSOLUTE COUNT (BEAKER) (test 14.50 K/ L 1.80-8.00 oesv=559) LYMPHOCYTES ABSOLUTE COUNT (BEAKER) (test 1.19 K/ L 1.48-4.50 uafm=827) MONOCYTES ABSOLUTE COUNT (BEAKER) (test 1.56 K/ L 0.00-1.30 xity=299) EOSINOPHILS ABSOLUTE COUNT (BEAKER) (test 0.13 K/ L 0.00-0.50 mxvv=750) BASOPHILS ABSOLUTE COUNT (BEAKER) (test 0.03 K/ L 0.00-0.20 jpyp=365) 0.00BASIC METABOLIC [id number] 05:44:00 Test Item Value Reference Range Comments SODIUM (BEAKER) (test 139 meq/L 136-145 ksjb=087) POTASSIUM (BEAKER) (test 3.7 meq/L 3.5-5.1 oyfs=441) CHLORIDE (BEAKER) (test 104 meq/L 98-107 ccyx=710) CO2 (BEAKER) (test 26 meq/L 22-29 gjzt=586) BLOOD UREA NITROGEN 19 mg/dL 7-21 (BEAKER) (test tkih=669) CREATININE (BEAKER) (test 2.08 mg/dL 0.57-1.25 lojs=338) GLUCOSE RANDOM (BEAKER) 127 mg/dL 70-105 (test imel=540) CALCIUM (BEAKER) (test 7.9 mg/dL 8.4-10.2 noiz=019) EGFR (BEAKER) (test 33 mL/min/1.73 sq m ESTIMATED GFR IS NOT pvgw=2814) ACCURATE CREATININE CLEARANCE IN PREDICTING GLOMERULAR FILTRATION RATE. ESTIMATED GFR IS NOT APPLICABLE FOR DIALYSIS PATIENTS. [id number] 05:42:00 Test Item Value Reference Range Comments PHOSPHORUS (BEAKER) (test lncc=191) 2.3 mg/dL 2.3-4.7 [id number] 05:42:00 Test Item Value Reference Range Comments MAGNESIUM (BEAKER) (test ksti=698) 1.7 mg/dL 1.6-2.6 CALCIUM, [id number] 05:21:00 Test Item Value Reference Range Comments CALCIUM IONIZED (BEAKER) (test nikz=874) 0.99 mmol/L 1.12-1.27 PH, BLOOD (BEAKER) (test zuxb=4001) 7.44 POCT-GLUCOSE [id number] 21:08:00 Test Item Value Reference Range Comments POC-GLUCOSE METER (BEAKER) 184 mg/dL 70-110 TESTED AT [address] (test ietb=0833) [place] [id number] POCT-GLUCOSE [id number] 18:10:00 Test Item Value Reference Range Comments POC-GLUCOSE METER (BEAKER) 214 mg/dL 70-110 TESTED AT [address] (test oiki=4640) [facility] [address] POCT-GLUCOSE [id number] 18:04:00 Test Item Value Reference Range Comments POC-GLUCOSE METER (BEAKER) 169 mg/dL 70-110 TESTED AT [address] (test scje=3332) [facility] [address] POCT-GLUCOSE [id number] 11:49:00 Test Item Value Reference Range Comments POC-GLUCOSE METER (BEAKER) 126 mg/dL 70-110 TESTED AT [address] (test omyp=0888) [facility] [address] POCT-GLUCOSE [id number] 08:17:00 Test Item Value Reference Range Comments POC-GLUCOSE METER (BEAKER) 119 mg/dL 70-110 TESTED AT [address] (test pbpi=2769) [facility] [address] VANCOMYCIN LEVEL, [id number] 06:32:00 Test Item Value Reference Range Comments VANCOMYCIN RANDOM (BEAKER) (test iwkq=010) 13.8 ug/mL Reference Range: No NormalsPOCT-GLUCOSE [id number] 05:54:00 Test Item Value Reference Range Comments POC-GLUCOSE METER (BEAKER) 122 mg/dL 70-110 TESTED AT [facility] [address] (test wofj=0834) [place] [address] B-TYPE NATRIURETIC FACTOR (BNP)2016-12-14 03:44:00 Test Item Value Reference Range Comments B-TYPE NATRIURETIC PEPTIDE (BEAKER) (test 883 pg/mL 0-100 nxje=533) BASIC METABOLIC [id number] 03:40:00 Test Item Value Reference Range Comments SODIUM (BEAKER) (test 140 meq/L 136-145 ipfe=997) POTASSIUM (BEAKER) (test 4.5 meq/L 3.5-5.1 cdyi=053) CHLORIDE (BEAKER) (test 109 meq/L 98-107 ecej=716) CO2 (BEAKER) (test 23 meq/L 22-29 cvgg=113) BLOOD UREA NITROGEN 21 mg/dL 7-21 (BEAKER) (test iyif=464) CREATININE (BEAKER) (test 2.96 mg/dL 0.57-1.25 yupu=147) GLUCOSE RANDOM (BEAKER) 118 mg/dL 70-105 (test vmek=972) CALCIUM (BEAKER) (test 7.5 mg/dL 8.4-10.2 xpez=877) EGFR (BEAKER) (test 22 mL/min/1.73 sq m ESTIMATED GFR IS NOT fcnx=3694) ACCURATE CREATININE CLEARANCE IN PREDICTING GLOMERULAR FILTRATION RATE. ESTIMATED GFR IS NOT APPLICABLE FOR DIALYSIS PATIENTS. [id number] 03:37:00 Test Item Value Reference Range Comments PHOSPHORUS (BEAKER) (test zudv=391) 4.6 mg/dL 2.3-4.7 [id number] 03:37:00 Test Item Value Reference Range Comments MAGNESIUM (BEAKER) (test cygg=994) 1.7 mg/dL 1.6-2.6 CBC W/PLT COUNT & AUTO [id number] 03:36:00 Test Item Value Reference Range Comments WHITE BLOOD CELL COUNT (BEAKER) (test jpms=845) 23.8 K/ L 4.0-10.0 RED BLOOD CELL COUNT (BEAKER) (test zstq=632) 2.80 M/ L 4.20-5.80 HEMOGLOBIN (BEAKER) (test opfr=605) 8.3 GM/DL 13.0-16.8 HEMATOCRIT (BEAKER) (test mdsu=379) 25.7 % 40.0-50.0 MEAN CORPUSCULAR VOLUME (BEAKER) (test vfvr=606) 91.8 fL 82.0-98.0 MEAN CORPUSCULAR HEMOGLOBIN (BEAKER) (test 29.6 pg 27.0-33.0 anzs=569) MEAN CORPUSCULAR HEMOGLOBIN CONC (BEAKER) (test 32.2 GM/DL 32.0-36.0 zpqr=631) RED CELL DISTRIBUTION WIDTH (BEAKER) (test 14.8 % 10.3-14.2 pykw=416) PLATELET COUNT (BEAKER) (test fayh=887) 261 K/CU MM 150-430 MEAN PLATELET VOLUME (BEAKER) (test saco=125) 6.4 fL 6.5-10.5 NUCLEATED RED BLOOD CELLS (BEAKER) (test 0 /100 WBC 0-0 sjtd=849) NEUTROPHILS RELATIVE PERCENT (BEAKER) (test 88 % wfbr=074) LYMPHOCYTES RELATIVE PERCENT (BEAKER) (test 6 % vock=734) MONOCYTES RELATIVE PERCENT (BEAKER) (test 6 % rfxb=736) EOSINOPHILS RELATIVE PERCENT (BEAKER) (test 0 % mszt=993) BASOPHILS RELATIVE PERCENT (BEAKER) (test 0 % rngx=711) NEUTROPHILS ABSOLUTE COUNT (BEAKER) (test 21.00 K/ L 1.80-8.00 tfxw=597) LYMPHOCYTES ABSOLUTE COUNT (BEAKER) (test 1.16 K/ L 1.48-4.50 sywn=424) MONOCYTES ABSOLUTE COUNT (BEAKER) (test 1.53 K/ L 0.00-1.30 nogu=592) EOSINOPHILS ABSOLUTE COUNT (BEAKER) (test 0.08 K/ L 0.00-0.50 ywjs=834) BASOPHILS ABSOLUTE COUNT (BEAKER) (test 0.03 K/ L 0.00-0.20 wvks=483) 0.00CALCIUM, [id number] 03:20:00 Test Item Value Reference Range Comments CALCIUM IONIZED (BEAKER) (test hyeh=143) 1.02 mmol/L 1.12-1.27 PH, BLOOD (BEAKER) (test hrny=5710) 7.44 POCT-GLUCOSE [id number] 23:20:00 Test Item Value Reference Range Comments POC-GLUCOSE METER (BEAKER) 129 mg/dL 70-110 TESTED AT [facility] [address] [facility] (test ehzw=9257) [facility] [address] POCT-GLUCOSE [id number] 16:47:00 Test Item Value Reference Range Comments POC-GLUCOSE METER (BEAKER) 120 mg/dL 70-110 TESTED AT [place] [id number] [facility] (test vuob=9754) [facility] [address] SPIN/CONCENTRATION [id number] 13:52:00 Test Item Value Reference Range Comments CONCENTRATION CHARGED (BEAKER) (test hkxb=3974) Done SPIN/CONCENTRATION [id number] 13:52:00 Test Item Value Reference Range Comments CONCENTRATION CHARGED (BEAKER) (test nxim=5109) Done BLOOD GAS, [id number] 08:32:00 Test Item Value Reference Range Comments PH ARTERIAL (BEAKER) (test myws=610) 7.41 7.35-7.45 PCO2 ARTERIAL (BEAKER) (test nicu=977) 45 mmHg 35-45 PO2 ARTERIAL (BEAKER) (test vqgs=933) 137 mmHg 80-90 O2 SATURATION ARTERIAL (BEAKER) (test hikx=976) 98.7 % 96.0-97.0 HCO3 ARTERIAL (BEAKER) (test cbwh=305) 28 mmol/L 21-29 BASE EXCESS ARTERIAL (BEAKER) (test xxzs=376) 2.8 mmol/L -2.0-3.0 PATIENT TEMPERATURE (BEAKER) (test fuab=1681) 37.0 C FIO2 (BEAKER) (test rimg=5520) 40.0 % CBC W/PLT COUNT & AUTO [id number] 08:04:00 Test Item Value Reference Range Comments WHITE BLOOD CELL COUNT (BEAKER) (test gfty=640) 23.6 K/ L 4.0-10.0 RED BLOOD CELL COUNT (BEAKER) (test oqpb=198) 3.04 M/ L 4.20-5.80 HEMOGLOBIN (BEAKER) (test duqb=789) 8.9 GM/DL 13.0-16.8 HEMATOCRIT (BEAKER) (test jlyj=186) 26.9 % 40.0-50.0 MEAN CORPUSCULAR VOLUME (BEAKER) (test cliz=298) 88.6 fL 82.0-98.0 MEAN CORPUSCULAR HEMOGLOBIN (BEAKER) (test 29.4 pg 27.0-33.0 pytr=720) MEAN CORPUSCULAR HEMOGLOBIN CONC (BEAKER) (test 33.2 GM/DL 32.0-36.0 wfox=620) RED CELL DISTRIBUTION WIDTH (BEAKER) (test 15.4 % 10.3-14.2 bffo=536) PLATELET COUNT (BEAKER) (test gopg=868) 291 K/CU MM 150-430 MEAN PLATELET VOLUME (BEAKER) (test blle=039) 6.9 fL 6.5-10.5 NUCLEATED RED BLOOD CELLS (BEAKER) (test 0 /100 WBC 0-0 rony=573) NEUTROPHILS RELATIVE PERCENT (BEAKER) (test 89 % yxqx=052) LYMPHOCYTES RELATIVE PERCENT (BEAKER) (test 5 % hxfd=390) MONOCYTES RELATIVE PERCENT (BEAKER) (test 6 % nwzi=350) EOSINOPHILS RELATIVE PERCENT (BEAKER) (test 0 % wtuz=691) BASOPHILS RELATIVE PERCENT (BEAKER) (test 0 % iiyt=735) NEUTROPHILS ABSOLUTE COUNT (BEAKER) (test 21.00 K/ L 1.80-8.00 vopo=425) LYMPHOCYTES ABSOLUTE COUNT (BEAKER) (test 1.17 K/ L 1.48-4.50 mvsp=524) MONOCYTES ABSOLUTE COUNT (BEAKER) (test 1.37 K/ L 0.00-1.30 tjdr=353) EOSINOPHILS ABSOLUTE COUNT (BEAKER) (test 0.04 K/ L 0.00-0.50 oldl=596) BASOPHILS ABSOLUTE COUNT (BEAKER) (test 0.02 K/ L 0.00-0.20 faac=309) 0.00(MANUAL DIFFERENTIAL)2016-12-13 08:04:00 Test Item Value Reference Range Comments TOTAL COUNTED (BEAKER) (test lbct=8236) WBC MORPHOLOGY (BEAKER) (test hjha=791) Normal PLT MORPHOLOGY (BEAKER) (test rhht=761) Normal HYPOCHROMIA (BEAKER) (test ljjz=634) 1+ few POCT-GLUCOSE [id number] 07:23:00 Test Item Value Reference Range Comments POC-GLUCOSE METER (BEAKER) 116 mg/dL 70-110 TESTED AT [facility] [address] [facility] (test llbr=2641) [facility] [address] POCT-GLUCOSE [id number] 06:31:00 Test Item Value Reference Range Comments POC-GLUCOSE METER (BEAKER) 115 mg/dL 70-110 TESTED AT [facility] [address] [facility] (test qyvj=2539) [facility] [address] CALCIUM, [id number] 05:09:00 Test Item Value Reference Range Comments CALCIUM IONIZED (BEAKER) (test gity=647) 1.06 mmol/L 1.12-1.27 PH, BLOOD (BEAKER) (test uqyg=0857) 7.46 BASIC METABOLIC [id number] 04:49:00 Test Item Value Reference Range Comments SODIUM (BEAKER) (test 139 meq/L 136-145 axdu=879) POTASSIUM (BEAKER) (test 4.5 meq/L 3.5-5.1 puat=559) CHLORIDE (BEAKER) (test 106 meq/L 98-107 lxhw=308) CO2 (BEAKER) (test 26 meq/L 22-29 eivb=766) BLOOD UREA NITROGEN 14 mg/dL 7-21 (BEAKER) (test bxkv=640) CREATININE (BEAKER) (test 2.20 mg/dL 0.57-1.25 duux=996) GLUCOSE RANDOM (BEAKER) 138 mg/dL 70-105 (test bovz=960) CALCIUM (BEAKER) (test 7.8 mg/dL 8.4-10.2 nvko=764) EGFR (BEAKER) (test 31 mL/min/1.73 sq m ESTIMATED GFR IS NOT hebv=0971) ACCURATE CREATININE CLEARANCE IN PREDICTING GLOMERULAR FILTRATION RATE. ESTIMATED GFR IS NOT APPLICABLE FOR DIALYSIS PATIENTS. [id number] 04:47:00 Test Item Value Reference Range Comments PHOSPHORUS (BEAKER) (test wrfk=824) 3.8 mg/dL 2.3-4.7 [id number] 04:47:00 Test Item Value Reference Range Comments MAGNESIUM (BEAKER) (test mavh=126) 1.6 mg/dL 1.6-2.6 POCT-GLUCOSE [id number] 00:17:00 Test Item Value Reference Range Comments POC-GLUCOSE METER (BEAKER) 165 mg/dL 70-110 TESTED AT [facility] [address] [facility] (test xxks=5357) [facility] [address] POCT-GLUCOSE [id number] 19:50:00 Test Item Value Reference Range Comments POC-GLUCOSE METER (BEAKER) 150 mg/dL 70-110 TESTED AT [facility] [address] (test jdft=1192) [place] [address] GLUCOSE-STAT [id number] 16:40:00 Test Item Value Reference Range Comments GLUCOSE RANDOM (BEAKER) (test btxw=760) 93 mg/dL 70-110 SODIUM NA-STAT [id number] 16:40:00 Test Item Value Reference Range Comments SODIUM (BEAKER) (test efdk=175) 136 meq/L 135-148 POTASSIUM-STAT [id number] 16:40:00 Test Item Value Reference Range Comments POTASSIUM (BEAKER) (test svgg=481) 3.8 meq/L 3.6-5.5 BLOOD GAS, [id number] 16:40:00 Test Item Value Reference Range Comments PH ARTERIAL (BEAKER) (test jqub=368) 7.45 7.35-7.45 PCO2 ARTERIAL (BEAKER) (test pfbf=557) 46 mmHg 35-45 PO2 ARTERIAL (BEAKER) (test qxdz=528) 371 mmHg 80-90 O2 SATURATION ARTERIAL (BEAKER) (test fsnw=769) 99.8 % 96.0-97.0 HCO3 ARTERIAL (BEAKER) (test fsld=484) 31 mmol/L 21-29 BASE EXCESS ARTERIAL (BEAKER) (test jhek=650) 6.0 mmol/L -2.0-3.0 PATIENT TEMPERATURE (BEAKER) (test fdiq=1569) 37.0 C FIO2 (BEAKER) (test atai=4842) 60.0 % HGB/HCT (H&H) - STAT [id number] 16:40:00 Test Item Value Reference Range Comments HEMOGLOBIN (BEAKER) (test qzwr=194) 6.3 g/dL 13.0-16.8 HEMATOCRIT (BEAKER) (test iada=390) 19.0 % 40.0-50.0 GLUCOSE-STAT [id number] 16:14:00 Test Item Value Reference Range Comments GLUCOSE RANDOM (BEAKER) (test cckd=043) 89 mg/dL 70-110 [id number] 13:22:00 Test Item Value Reference Range Comments PARTIAL THROMBOPLASTIN TIME (BEAKER) (test 80.1 seconds 22.5-36.0 cuar=066) POCT-GLUCOSE [id number] 11:57:00 Test Item Value Reference Range Comments POC-GLUCOSE METER (BEAKER) 82 mg/dL 70-110 TESTED AT [place] [id number] [facility] (test iwjm=7835) [facility] [address] POCT-GLUCOSE [id number] 08:15:00 Test Item Value Reference Range Comments POC-GLUCOSE METER (BEAKER) 90 mg/dL 70-110 TESTED AT [address] (test uhne=6745) [facility] [address] CBC W/PLT COUNT & AUTO [id number] 05:50:00 Test Item Value Reference Range Comments WHITE BLOOD CELL COUNT (BEAKER) (test sunk=018) 13.9 K/ L 4.0-10.0 RED BLOOD CELL COUNT (BEAKER) (test bvte=273) 2.42 M/ L 4.20-5.80 HEMOGLOBIN (BEAKER) (test japp=060) 7.2 GM/DL 13.0-16.8 HEMATOCRIT (BEAKER) (test gyvm=731) 21.8 % 40.0-50.0 MEAN CORPUSCULAR VOLUME (BEAKER) (test ogid=778) 90.3 fL 82.0-98.0 MEAN CORPUSCULAR HEMOGLOBIN (BEAKER) (test 29.5 pg 27.0-33.0 dsxu=698) MEAN CORPUSCULAR HEMOGLOBIN CONC (BEAKER) (test 32.7 GM/DL 32.0-36.0 rnuo=411) RED CELL DISTRIBUTION WIDTH (BEAKER) (test 15.9 % 10.3-14.2 dtoc=138) PLATELET COUNT (BEAKER) (test xchw=062) 282 K/CU MM 150-430 MEAN PLATELET VOLUME (BEAKER) (test gnne=943) 6.8 fL 6.5-10.5 NUCLEATED RED BLOOD CELLS (BEAKER) (test 0 /100 WBC 0-0 lfrz=210) NEUTROPHILS RELATIVE PERCENT (BEAKER) (test 78 % bwmg=072) LYMPHOCYTES RELATIVE PERCENT (BEAKER) (test 11 % dqek=865) MONOCYTES RELATIVE PERCENT (BEAKER) (test 9 % twlh=360) EOSINOPHILS RELATIVE PERCENT (BEAKER) (test 1 % kuul=392) BASOPHILS RELATIVE PERCENT (BEAKER) (test 0 % jjry=788) NEUTROPHILS ABSOLUTE COUNT (BEAKER) (test 10.80 K/ L 1.80-8.00 chlv=760) LYMPHOCYTES ABSOLUTE COUNT (BEAKER) (test 1.57 K/ L 1.48-4.50 haru=537) MONOCYTES ABSOLUTE COUNT (BEAKER) (test 1.30 K/ L 0.00-1.30 mqqb=241) EOSINOPHILS ABSOLUTE COUNT (BEAKER) (test 0.20 K/ L 0.00-0.50 eogj=154) BASOPHILS ABSOLUTE COUNT (BEAKER) (test 0.04 K/ L 0.00-0.20 qawe=216) 0.00CALCIUM, [id number] 05:43:00 Test Item Value Reference Range Comments CALCIUM IONIZED (BEAKER) (test zwxq=268) 0.97 mmol/L 1.12-1.27 PH, BLOOD (BEAKER) (test umjx=2997) 7.51 BASIC METABOLIC [id number] 05:35:00 Test Item Value Reference Range Comments SODIUM (BEAKER) (test 132 meq/L 136-145 bvvl=146) POTASSIUM (BEAKER) (test 4.2 meq/L 3.5-5.1 zecv=746) CHLORIDE (BEAKER) (test 102 meq/L 98-107 tihp=478) CO2 (BEAKER) (test 22 meq/L 22-29 brsv=246) BLOOD UREA NITROGEN 26 mg/dL 7-21 (BEAKER) (test rxke=066) CREATININE (BEAKER) (test 3.57 mg/dL 0.57-1.25 gfpv=880) GLUCOSE RANDOM (BEAKER) 69 mg/dL 70-105 (test ofad=964) CALCIUM (BEAKER) (test 7.6 mg/dL 8.4-10.2 jvnt=218) EGFR (BEAKER) (test 18 mL/min/1.73 sq m ESTIMATED GFR IS NOT jhno=6698) ACCURATE CREATININE CLEARANCE IN PREDICTING GLOMERULAR FILTRATION RATE. ESTIMATED GFR IS NOT APPLICABLE FOR DIALYSIS PATIENTS. [id number] 05:31:00 Test Item Value Reference Range Comments PHOSPHORUS (BEAKER) (test uidq=618) 3.7 mg/dL 2.3-4.7 [id number] 05:31:00 Test Item Value Reference Range Comments MAGNESIUM (BEAKER) (test ltcz=708) 1.8 mg/dL 1.6-2.6 [id number] 05:30:00 Test Item Value Reference Range Comments PARTIAL THROMBOPLASTIN TIME (BEAKER) (test 44.4 seconds 22.5-36.0 tdfv=201) PROTHROMBIN [id number] 05:29:00 Test Item Value Reference Range Comments PROTIME (BEAKER) (test elin=049) 14.5 seconds 11.7-14.7 INR (BEAKER) (test dyyn=301) 1.1 <=5.9 RECOMMENDED COUMADIN/WARFARIN INR THERAPY RANGESSTANDARD DOSE: 2.0 - 3.0 Includes: PROPHYLAXIS forvenous thrombosis, systemic embolization; TREATMENT for venous thrombosis and/or pulmonary embolus.HIGH RISK: Target INR is 2.5-3.5 for patients with mechanical heart valves.POCT-GLUCOSE [id number] 22:10:00 Test Item Value Reference Range Comments POC-GLUCOSE METER (BEAKER) 106 mg/dL 70-110 TESTED AT [address] (test alcd=2508) [place] [id number] POCT-GLUCOSE [id number] 17:31:00 Test Item Value Reference Range Comments POC-GLUCOSE METER (BEAKER) 114 mg/dL 70-110 TESTED AT [address] (test alci=7772) [place] [address] [id number] 15:36:00 Test Item Value Reference Range Comments PARTIAL THROMBOPLASTIN TIME (BEAKER) (test 38.5 seconds 22.5-36.0 wwoa=237) PROTHROMBIN [id number] 15:35:00 Test Item Value Reference Range Comments PROTIME (BEAKER) (test rvne=249) 14.6 seconds 11.7-14.7 INR (BEAKER) (test pmcu=772) 1.2 <=5.9 RECOMMENDED COUMADIN/WARFARIN INR THERAPY RANGESSTANDARD DOSE: 2.0 - 3.0 Includes: PROPHYLAXIS forvenous thrombosis, systemic embolization; TREATMENT for venous thrombosis and/or pulmonary embolus.HIGH RISK: Target INR is 2.5-3.5 for patients with mechanical heart valves.POCT-GLUCOSE [id number] 12:12:00 Test Item Value Reference Range Comments POC-GLUCOSE METER (BEAKER) 130 mg/dL 70-110 TESTED AT [address] (test vuay=5820) [place] [id number] POCT-GLUCOSE [id number] 08:04:00 Test Item Value Reference Range Comments POC-GLUCOSE METER (BEAKER) 96 mg/dL 70-110 TESTED AT [address] (test ahau=4908) [place] [id number] VANCOMYCIN LEVEL, [id number] 07:30:00 Test Item Value Reference Range Comments VANCOMYCIN RANDOM (BEAKER) (test jtpw=337) 21.2 ug/mL Reference Range: No NormalsPOCT-GLUCOSE [id number] 20:25:00 Test Item Value Reference Range Comments POC-GLUCOSE METER (BEAKER) 152 mg/dL 70-110 TESTED AT [address] (test qizh=7310) [place] [address] POCT-GLUCOSE [id number] 17:23:00 Test Item Value Reference Range Comments POC-GLUCOSE METER (BEAKER) 161 mg/dL 70-110 TESTED AT [address] (test mazz=4777) [place] [address] [id number] 13:34:00 Test Item Value Reference Range Comments PROTIME (BEAKER) (test pdxe=383) 15.4 seconds 11.7-14.7 INR (BEAKER) (test ekzu=189) 1.2 <=5.9 PARTIAL THROMBOPLASTIN TIME (BEAKER) (test 51.5 seconds 22.5-36.0 mfzk=901) RECOMMENDED COUMADIN/WARFARIN INR THERAPY RANGESSTANDARD DOSE: 2.0 - 3.0 Includes: PROPHYLAXIS forvenous thrombosis, systemic embolization; TREATMENT for venous thrombosis and/or pulmonary embolus.HIGH RISK: Target INR is 2.5-3.5 for patients with mechanical heart valves.POCT-GLUCOSE [id number] 12:11:00 Test Item Value Reference Range Comments POC-GLUCOSE METER (BEAKER) 140 mg/dL 70-110 TESTED AT [address] (test nmck=0802) [place] [id number] CBC W/PLT COUNT & AUTO [id number] 08:02:00 Test Item Value Reference Range Comments WHITE BLOOD CELL COUNT (BEAKER) (test wkyy=261) 14.8 K/ L 4.0-10.0 RED BLOOD CELL COUNT (BEAKER) (test zwkm=708) 2.40 M/ L 4.20-5.80 HEMOGLOBIN (BEAKER) (test tylg=678) 7.0 GM/DL 13.0-16.8 HEMATOCRIT (BEAKER) (test pnes=495) 21.6 % 40.0-50.0 MEAN CORPUSCULAR VOLUME (BEAKER) (test loen=323) 90.0 fL 82.0-98.0 MEAN CORPUSCULAR HEMOGLOBIN (BEAKER) (test 29.2 pg 27.0-33.0 fvoj=025) MEAN CORPUSCULAR HEMOGLOBIN CONC (BEAKER) (test 32.5 GM/DL 32.0-36.0 gjwj=683) RED CELL DISTRIBUTION WIDTH (BEAKER) (test 15.8 % 10.3-14.2 oscz=606) PLATELET COUNT (BEAKER) (test anor=405) 276 K/CU MM 150-430 MEAN PLATELET VOLUME (BEAKER) (test oorx=757) 6.8 fL 6.5-10.5 NUCLEATED RED BLOOD CELLS (BEAKER) (test 0 /100 WBC 0-0 qego=014) NEUTROPHILS RELATIVE PERCENT (BEAKER) (test 80 % yxpz=214) LYMPHOCYTES RELATIVE PERCENT (BEAKER) (test 10 % nmbw=467) MONOCYTES RELATIVE PERCENT (BEAKER) (test 9 % bvfu=741) EOSINOPHILS RELATIVE PERCENT (BEAKER) (test 1 % bohk=785) BASOPHILS RELATIVE PERCENT (BEAKER) (test 0 % vdts=061) NEUTROPHILS ABSOLUTE COUNT (BEAKER) (test 11.80 K/ L 1.80-8.00 pfsq=674) LYMPHOCYTES ABSOLUTE COUNT (BEAKER) (test 1.49 K/ L 1.48-4.50 pynf=077) MONOCYTES ABSOLUTE COUNT (BEAKER) (test 1.28 K/ L 0.00-1.30 wqhk=554) EOSINOPHILS ABSOLUTE COUNT (BEAKER) (test 0.17 K/ L 0.00-0.50 hjre=075) BASOPHILS ABSOLUTE COUNT (BEAKER) (test 0.04 K/ L 0.00-0.20 hdki=519) 0.00VANCOMYCIN LEVEL, [id number] 07:43:00 Test Item Value Reference Range Comments VANCOMYCIN RANDOM (BEAKER) (test rcyt=534) 31.1 ug/mL Reference Range: No NormalsBASIC METABOLIC [id number] 07:30:00 Test Item Value Reference Range Comments SODIUM (BEAKER) (test 134 meq/L 136-145 avgu=043) POTASSIUM (BEAKER) (test 3.6 meq/L 3.5-5.1 ehtz=486) CHLORIDE (BEAKER) (test 100 meq/L 98-107 ebnt=670) CO2 (BEAKER) (test 27 meq/L 22-29 tjms=281) BLOOD UREA NITROGEN 12 mg/dL 7-21 (BEAKER) (test qyxx=316) CREATININE (BEAKER) (test 1.88 mg/dL 0.57-1.25 wzdt=785) GLUCOSE RANDOM (BEAKER) 109 mg/dL 70-105 (test wafz=296) CALCIUM (BEAKER) (test 7.7 mg/dL 8.4-10.2 tgmg=931) EGFR (BEAKER) (test 37 mL/min/1.73 sq m ESTIMATED GFR IS NOT zitm=4970) ACCURATE CREATININE CLEARANCE IN PREDICTING GLOMERULAR FILTRATION RATE. ESTIMATED GFR IS NOT APPLICABLE FOR DIALYSIS PATIENTS. [id number] 07:25:00 Test Item Value Reference Range Comments PHOSPHORUS (BEAKER) (test cmaz=196) 2.9 mg/dL 2.3-4.7 [id number] 07:25:00 Test Item Value Reference Range Comments MAGNESIUM (BEAKER) (test mzyc=721) 1.3 mg/dL 1.6-2.6 POCT-GLUCOSE [id number] 07:18:00 Test Item Value Reference Range Comments POC-GLUCOSE METER (BEAKER) 107 mg/dL 70-110 TESTED AT [facility] [address] [facility] (test esyb=8768) [facility] [address] CALCIUM, [id number] 06:57:00 Test Item Value Reference Range Comments CALCIUM IONIZED (BEAKER) (test iruo=389) 1.04 mmol/L 1.12-1.27 PH, BLOOD (BEAKER) (test pwyr=8067) 7.44 BLOOD [id number] 17:00:00 Test Item Value Reference Range Comments CULTURE (BEAKER) (test wuah=0939) No growth in 5 days BLOOD [id number] 17:00:00 Test Item Value Reference Range Comments CULTURE (BEAKER) (test whrz=6894) No growth in 5 days POCT-GLUCOSE [id number] 12:01:00 Test Item Value Reference Range Comments POC-GLUCOSE METER (BEAKER) 128 mg/dL 70-110 TESTED AT [address] (test olxa=3426) [facility] [address] POCT-GLUCOSE [id number] 07:48:00 Test Item Value Reference Range Comments POC-GLUCOSE METER (BEAKER) 100 mg/dL 70-110 TESTED AT [address] (test kpqs=6175) [facility] [address] VANCOMYCIN LEVEL, [id number] 05:36:00 Test Item Value Reference Range Comments VANCOMYCIN RANDOM (BEAKER) (test vjfa=582) 26.8 ug/mL Reference Range: No NormalsSPUTUM CULTURE + GRAM [id number] 00:09:00 Test Item Value Reference Range Comments CULTURE (BEAKER) (test Oropharyngeal contamination, awdn=4550) specimen rejected. Recollect requested. GRAM STAIN RESULT (BEAKER) No WBCs (test letb=0774) GRAM STAIN RESULT (BEAKER) >25 epithelial cells (test llwn=41218) GRAM STAIN RESULT (BEAKER) 4+ gram positive rods (test bmtq=35217) GRAM STAIN RESULT (BEAKER) 4+ gram positive cocci in pairs (test zxbt=698523) GRAM STAIN RESULT (BEAKER) 4+ budding yeast (test noqk=168974) POCT-GLUCOSE [id number] 20:17:00 Test Item Value Reference Range Comments POC-GLUCOSE METER (BEAKER) 111 mg/dL 70-110 TESTED AT [place] [id number] [facility] (test qqng=0564) [facility] [address] TSH/FREE T4 IF [id number] 18:39:00 Test Item Value Reference Range Comments THYROID STIMULATING HORMONE (BEAKER) (test 3.14 uIU/mL 0.35-4.94 xuxl=998) VITAMIN B12 AND [id number] 18:39:00 Test Item Value Reference Range Comments VITAMIN B12 (BEAKER) (test ovvb=852) 1407 pg/mL 213-816 FOLATE (BEAKER) (test xrwh=668) 16.4 ng/mL >=7.0 Effective 09/08/2014: Folate Reference Range ChangeNew: >=7.0 Previous: & gt;=[id number] 18:12:00 Test Item Value Reference Range Comments CALCIUM (BEAKER) (test tvxc=721) 8.2 mg/dL 8.4-10.2 PROTHROMBIN [id number] 18:07:00 Test Item Value Reference Range Comments PROTIME (BEAKER) (test ctcl=019) 15.5 seconds 11.7-14.7 INR (BEAKER) (test yyoz=044) 1.2 <=5.9 RECOMMENDED COUMADIN/WARFARIN INR THERAPY RANGESSTANDARD DOSE: 2.0 - 3.0 Includes: PROPHYLAXIS forvenous thrombosis, systemic embolization; TREATMENT for venous thrombosis and/or pulmonary embolus.HIGH RISK: Target INR is 2.5-3.5 for patients with mechanical heart valves.[id number] 18:06:00 Test Item Value Reference Range Comments PHOSPHORUS (BEAKER) (test lrsb=909) 3.4 mg/dL 2.3-4.7 [id number] 18:06:00 Test Item Value Reference Range Comments MAGNESIUM (BEAKER) (test spha=920) 1.5 mg/dL 1.6-2.6 HEPATIC FUNCTION [id number] 18:06:00 Test Item Value Reference Range Comments TOTAL PROTEIN (BEAKER) (test oclf=355) 5.9 gm/dL 6.0-8.3 ALBUMIN (BEAKER) (test wsnp=1668) 2.3 g/dL 3.5-5.0 BILIRUBIN TOTAL (BEAKER) (test jxnr=959) 0.4 mg/dL 0.2-1.2 BILIRUBIN DIRECT (BEAKER) (test vfky=910) 0.2 mg/dL 0.1-0.5 ALKALINE PHOSPHATASE (BEAKER) (test kgwz=142) 118 U/L 40-150 AST (SGOT) (BEAKER) (test dhiz=606) 11 U/L 5-34 ALT (SGPT) (BEAKER) (test kgis=161) 7 U/L 6-55 [id number] 17:57:00 Test Item Value Reference Range Comments AMMONIA (BEAKER) (test icut=980) 23 mol/L 18-72 POCT-GLUCOSE [id number] 17:55:00 Test Item Value Reference Range Comments POC-GLUCOSE METER (BEAKER) 137 mg/dL 70-110 TESTED AT [address] (test zsbg=7020) [facility] [address] POCT-GLUCOSE [id number] 17:01:00 Test Item Value Reference Range Comments POC-GLUCOSE METER (BEAKER) 62 mg/dL 70-110 TESTED AT [address] (test pcwg=5991) [facility] [address] [id number] 15:09:00 Test Item Value Reference Range Comments SODIUM (BEAKER) (test rjmp=683) 138 meq/L 136-145 POTASSIUM (BEAKER) (test 4.0 meq/L 3.5-5.1 Specimen slightly hemolyzed yyut=595) CHLORIDE (BEAKER) (test 105 meq/L 98-107 ldbi=076) CO2 (BEAKER) (test ivsv=598) 23 meq/L 22-29 BLOOD GAS, [id number] 14:56:00 Test Item Value Reference Range Comments PH ARTERIAL (BEAKER) (test mwfs=540) 7.53 7.35-7.45 PCO2 ARTERIAL (BEAKER) (test raip=935) 35 mmHg 35-45 PO2 ARTERIAL (BEAKER) (test wbbq=196) 70 mmHg 80-90 O2 SATURATION ARTERIAL (BEAKER) (test anmk=600) 95.5 % 96.0-97.0 HCO3 ARTERIAL (BEAKER) (test nwpw=846) 28 mmol/L 21-29 BASE EXCESS ARTERIAL (BEAKER) (test looe=132) 5.2 mmol/L -2.0-3.0 PATIENT TEMPERATURE (BEAKER) (test hmaw=6015) 37.3 C FIO2 (BEAKER) (test aicf=7573) 21.0 % CBC W/PLT COUNT & AUTO [id number] 14:56:00 Test Item Value Reference Range Comments WHITE BLOOD CELL COUNT (BEAKER) (test enpl=327) 18.1 K/ L 4.0-10.0 RED BLOOD CELL COUNT (BEAKER) (test zico=031) 2.43 M/ L 4.20-5.80 HEMOGLOBIN (BEAKER) (test kkax=245) 7.3 GM/DL 13.0-16.8 HEMATOCRIT (BEAKER) (test sbgj=567) 22.2 % 40.0-50.0 MEAN CORPUSCULAR VOLUME (BEAKER) (test idso=681) 91.7 fL 82.0-98.0 MEAN CORPUSCULAR HEMOGLOBIN (BEAKER) (test 30.0 pg 27.0-33.0 mcjr=408) MEAN CORPUSCULAR HEMOGLOBIN CONC (BEAKER) (test 32.7 GM/DL 32.0-36.0 vada=728) RED CELL DISTRIBUTION WIDTH (BEAKER) (test 15.7 % 10.3-14.2 qqzy=918) PLATELET COUNT (BEAKER) (test fryo=647) 290 K/CU MM 150-430 MEAN PLATELET VOLUME (BEAKER) (test tiev=959) 6.9 fL 6.5-10.5 NUCLEATED RED BLOOD CELLS (BEAKER) (test 0 /100 WBC 0-0 rmps=957) NEUTROPHILS RELATIVE PERCENT (BEAKER) (test 84 % xevg=049) LYMPHOCYTES RELATIVE PERCENT (BEAKER) (test 8 % gqvd=296) MONOCYTES RELATIVE PERCENT (BEAKER) (test 8 % aoen=072) EOSINOPHILS RELATIVE PERCENT (BEAKER) (test 0 % uabb=955) BASOPHILS RELATIVE PERCENT (BEAKER) (test 0 % fibn=180) NEUTROPHILS ABSOLUTE COUNT (BEAKER) (test 15.10 K/ L 1.80-8.00 clmh=217) LYMPHOCYTES ABSOLUTE COUNT (BEAKER) (test 1.51 K/ L 1.48-4.50 zulq=106) MONOCYTES ABSOLUTE COUNT (BEAKER) (test 1.43 K/ L 0.00-1.30 upds=664) EOSINOPHILS ABSOLUTE COUNT (BEAKER) (test 0.03 K/ L 0.00-0.50 jlrd=978) BASOPHILS ABSOLUTE COUNT (BEAKER) (test 0.02 K/ L 0.00-0.20 zyju=718) 0.00POCT-GLUCOSE [id number] 12:19:00 Test Item Value Reference Range Comments POC-GLUCOSE METER (BEAKER) 75 mg/dL 70-110 TESTED AT [facility] [address] [facility] (test xtcd=8045) [facility] [address] [id number] 09:59:00 Test Item Value Reference Range Comments HAPTOGLOBIN (BEAKER) (test brkj=201) > mg/dL 14-258 Effective 09/08/2014: Reference Range ChangeNew: 14-258 Previous: 36- 195LACTATE DEHYDROGENASE (LDH)2016-12-08 09:56:00 Test Item Value Reference Range Comments LACTATE DEHYDROGENASE (BEAKER) (test wxzi=660) 234 U/L 125-220 [id number] 09:35:00 Test Item Value Reference Range Comments FIBRINOGEN LEVEL (BEAKER) (test erbl=386) 554 mg/dl 225-434 BASIC METABOLIC [id number] 08:56:00 Test Item Value Reference Range Comments SODIUM (BEAKER) (test 139 meq/L 136-145 mpyj=973) POTASSIUM (BEAKER) (test 3.0 meq/L 3.5-5.1 amak=098) CHLORIDE (BEAKER) (test 114 meq/L 98-107 dysi=003) CO2 (BEAKER) (test 18 meq/L 22-29 okbu=405) BLOOD UREA NITROGEN 14 mg/dL 7-21 (BEAKER) (test miyt=640) CREATININE (BEAKER) (test 1.68 mg/dL 0.57-1.25 pxaq=165) GLUCOSE RANDOM (BEAKER) 65 mg/dL 70-105 (test wihl=216) CALCIUM (BEAKER) (test 6.3 mg/dL 8.4-10.2 pfrm=291) EGFR (BEAKER) (test 42 mL/min/1.73 sq m ESTIMATED GFR IS NOT picn=7940) ACCURATE CREATININE CLEARANCE IN PREDICTING GLOMERULAR FILTRATION RATE. ESTIMATED GFR IS NOT APPLICABLE FOR DIALYSIS PATIENTS. CBC W/PLT COUNT & AUTO [id number] 08:55:00 Test Item Value Reference Range Comments WHITE BLOOD CELL COUNT (BEAKER) (test baey=740) 12.8 K/ L 4.0-10.0 RED BLOOD CELL COUNT (BEAKER) (test aend=620) 1.79 M/ L 4.20-5.80 HEMOGLOBIN (BEAKER) (test xtfj=628) 5.4 GM/DL 13.0-16.8 HEMATOCRIT (BEAKER) (test vwxb=110) 16.7 % 40.0-50.0 MEAN CORPUSCULAR VOLUME (BEAKER) (test uxrw=802) 93.5 fL 82.0-98.0 MEAN CORPUSCULAR HEMOGLOBIN (BEAKER) (test 30.2 pg 27.0-33.0 inhp=170) MEAN CORPUSCULAR HEMOGLOBIN CONC (BEAKER) (test 32.3 GM/DL 32.0-36.0 qfyr=510) RED CELL DISTRIBUTION WIDTH (BEAKER) (test 15.9 % 10.3-14.2 qeyt=720) PLATELET COUNT (BEAKER) (test znsp=148) 211 K/CU MM 150-430 MEAN PLATELET VOLUME (BEAKER) (test wnae=727) 6.8 fL 6.5-10.5 NUCLEATED RED BLOOD CELLS (BEAKER) (test 0 /100 WBC 0-0 pdtg=528) NEUTROPHILS RELATIVE PERCENT (BEAKER) (test 82 % nfjl=219) LYMPHOCYTES RELATIVE PERCENT (BEAKER) (test 8 % ozjh=135) MONOCYTES RELATIVE PERCENT (BEAKER) (test 9 % jlqv=031) EOSINOPHILS RELATIVE PERCENT (BEAKER) (test 0 % aeib=324) BASOPHILS RELATIVE PERCENT (BEAKER) (test 0 % scrh=964) NEUTROPHILS ABSOLUTE COUNT (BEAKER) (test 10.50 K/ L 1.80-8.00 cfet=136) LYMPHOCYTES ABSOLUTE COUNT (BEAKER) (test 1.08 K/ L 1.48-4.50 kzsx=877) MONOCYTES ABSOLUTE COUNT (BEAKER) (test 1.17 K/ L 0.00-1.30 peue=995) EOSINOPHILS ABSOLUTE COUNT (BEAKER) (test 0.06 K/ L 0.00-0.50 btyq=927) BASOPHILS ABSOLUTE COUNT (BEAKER) (test 0.04 K/ L 0.00-0.20 ggbi=510) 0.00LACTIC ACID, VENOUS, WHOLE [id number] 08:52:00 Test Item Value Reference Range Comments LACTATE BLOOD VENOUS (2) (BEAKER) (test 0.5 mmol/L 0.5-2.2 lltz=3921) Effective 02/23/2016: Units/Reference Range ChangeNew: 0.5-2.2 mmol/L Previous: 5 -20 mg/dLPOCT-GLUCOSE [id number] 07:40:00 Test Item Value Reference Range Comments POC-GLUCOSE METER (BEAKER) 80 mg/dL 70-110 TESTED AT [address] (test qhec=3240) [facility] [address] POCT-GLUCOSE [id number] 21:47:00 Test Item Value Reference Range Comments POC-GLUCOSE METER (BEAKER) 97 mg/dL 70-110 TESTED AT [address] (test ioqf=6416) [facility] [address] POCT-GLUCOSE [id number] 17:45:00 Test Item Value Reference Range Comments POC-GLUCOSE METER (BEAKER) 115 mg/dL 70-110 TESTED AT [address] (test rgjr=2703) [facility] [address] POCT-GLUCOSE [id number] 12:56:00 Test Item Value Reference Range Comments POC-GLUCOSE METER (BEAKER) 120 mg/dL 70-110 TESTED AT [address] (test mtex=2040) [place] [id number] POCT-GLUCOSE [id number] 12:56:00 Test Item Value Reference Range Comments POC-GLUCOSE METER (BEAKER) 107 mg/dL 70-110 TESTED AT [address] (test uvvu=9176) [place] [id number] CBC W/PLT COUNT & AUTO [id number] 11:18:00 Test Item Value Reference Range Comments WHITE BLOOD CELL COUNT (BEAKER) (test cwrv=408) 21.4 K/ L 4.0-10.0 RED BLOOD CELL COUNT (BEAKER) (test ndjy=953) 2.63 M/ L 4.20-5.80 HEMOGLOBIN (BEAKER) (test vxup=685) 7.5 GM/DL 13.0-16.8 HEMATOCRIT (BEAKER) (test fbsm=683) 24.1 % 40.0-50.0 MEAN CORPUSCULAR VOLUME (BEAKER) (test ymff=668) 91.8 fL 82.0-98.0 MEAN CORPUSCULAR HEMOGLOBIN (BEAKER) (test 28.6 pg 27.0-33.0 yuxl=954) MEAN CORPUSCULAR HEMOGLOBIN CONC (BEAKER) (test 31.1 GM/DL 32.0-36.0 jgev=959) RED CELL DISTRIBUTION WIDTH (BEAKER) (test 15.4 % 10.3-14.2 hfza=051) PLATELET COUNT (BEAKER) (test fdfj=507) 297 K/CU MM 150-430 MEAN PLATELET VOLUME (BEAKER) (test pyyr=165) 7.0 fL 6.5-10.5 NUCLEATED RED BLOOD CELLS (BEAKER) (test 0 /100 WBC 0-0 tzqa=738) NEUTROPHILS RELATIVE PERCENT (BEAKER) (test 88 % ljjk=665) LYMPHOCYTES RELATIVE PERCENT (BEAKER) (test 6 % kusi=619) MONOCYTES RELATIVE PERCENT (BEAKER) (test 6 % gpzg=950) EOSINOPHILS RELATIVE PERCENT (BEAKER) (test 0 % ntds=242) BASOPHILS RELATIVE PERCENT (BEAKER) (test 0 % zfyk=724) NEUTROPHILS ABSOLUTE COUNT (BEAKER) (test 18.90 K/ L 1.80-8.00 kfjg=008) LYMPHOCYTES ABSOLUTE COUNT (BEAKER) (test 1.25 K/ L 1.48-4.50 yfji=885) MONOCYTES ABSOLUTE COUNT (BEAKER) (test 1.26 K/ L 0.00-1.30 vmox=597) EOSINOPHILS ABSOLUTE COUNT (BEAKER) (test 0.05 K/ L 0.00-0.50 ukbs=512) BASOPHILS ABSOLUTE COUNT (BEAKER) (test 0.01 K/ L 0.00-0.20 aite=392) 0.000.520.000.000.560.000.000.000.00(MANUAL DIFFERENTIAL)2016-12-07 11:18:00 Test Item Value Reference Range Comments TOTAL COUNTED (BEAKER) (test lxaj=1355) CATHETER TIP [id number] 09:38:00 Test Item Value Reference Range Comments CULTURE (BEAKER) (test METHICILLIN RESISTANT 15-29 Colonies On lejx=3805) STAPHYLOCOCCUS AUREUS Direct Plate Methicillin resistant Staphylococcus aureus Clindamycin (test code=10) Erythromycin (test code=4) Linezolid (test code=40) Oxacillin (test code=14) Rifampin (test code=43) Tetracycline (test code=2) Trimethoprim + Sulfamethoxazole (test code=47) Vancomycin (test code=13) CULTURE (BEAKER) (test <15 Colonies On suvh=257522) Direct Plate Methicillin resistant Staphylococcus aureusof a second type CALCIUM, [id number] 09:12:00 Test Item Value Reference Range Comments CALCIUM IONIZED (BEAKER) (test etbo=190) 1.04 mmol/L 1.12-1.27 PH, BLOOD (BEAKER) (test vwmo=1460) 7.40 BASIC METABOLIC [id number] 07:52:00 Test Item Value Reference Range Comments SODIUM (BEAKER) (test 134 meq/L 136-145 ypwr=624) POTASSIUM (BEAKER) (test 4.1 meq/L 3.5-5.1 tyjj=389) CHLORIDE (BEAKER) (test 103 meq/L 98-107 zmvf=106) CO2 (BEAKER) (test 20 meq/L 22-29 efmb=886) BLOOD UREA NITROGEN 37 mg/dL 7-21 (BEAKER) (test jksn=981) CREATININE (BEAKER) (test 3.25 mg/dL 0.57-1.25 wner=262) GLUCOSE RANDOM (BEAKER) 129 mg/dL 70-105 (test vipj=281) CALCIUM (BEAKER) (test 8.1 mg/dL 8.4-10.2 pjjg=338) EGFR (BEAKER) (test 20 mL/min/1.73 sq m ESTIMATED GFR IS NOT rhwi=1316) ACCURATE CREATININE CLEARANCE IN PREDICTING GLOMERULAR FILTRATION RATE. ESTIMATED GFR IS NOT APPLICABLE FOR DIALYSIS PATIENTS. [id number] 07:48:00 Test Item Value Reference Range Comments PHOSPHORUS (BEAKER) (test nike=937) 4.8 mg/dL 2.3-4.7 [id number] 07:48:00 Test Item Value Reference Range Comments MAGNESIUM (BEAKER) (test tnrf=670) 1.9 mg/dL 1.6-2.6 ANAEROBIC [id number] 02:42:00 Test Item Value Reference Range Comments CULTURE (BEAKER) (test izvi=1184) No anaerobes isolated POCT-GLUCOSE [id number] 20:57:00 Test Item Value Reference Range Comments POC-GLUCOSE METER (BEAKER) 191 mg/dL 70-110 TESTED AT [facility] [address] [facility] (test ueig=2904) [facility] [address] VANCOMYCIN LEVEL, [id number] 17:35:00 Test Item Value Reference Range Comments VANCOMYCIN RANDOM (BEAKER) (test bouk=074) 21.9 ug/mL Reference Range: No NormalsPOCT-GLUCOSE [id number] 13:28:00 Test Item Value Reference Range Comments POC-GLUCOSE METER (BEAKER) 202 mg/dL 70-110 TESTED AT [facility] [address] [facility] (test fmws=8090) [facility] [address] POCT-GLUCOSE [id number] 08:30:00 Test Item Value Reference Range Comments POC-GLUCOSE METER (BEAKER) 144 mg/dL 70-110 TESTED AT [facility] [address] [facility] (test pkye=3685) [facility] [address] BASIC METABOLIC [id number] 07:04:00 Test Item Value Reference Range Comments SODIUM (BEAKER) (test 134 meq/L 136-145 opfs=168) POTASSIUM (BEAKER) (test 3.8 meq/L 3.5-5.1 ksom=847) CHLORIDE (BEAKER) (test 104 meq/L 98-107 ifvr=874) CO2 (BEAKER) (test 21 meq/L 22-29 oxyd=188) BLOOD UREA NITROGEN 33 mg/dL 7-21 (BEAKER) (test paen=881) CREATININE (BEAKER) (test 2.91 mg/dL 0.57-1.25 xcso=428) GLUCOSE RANDOM (BEAKER) 124 mg/dL 70-105 (test brnx=494) CALCIUM (BEAKER) (test 7.8 mg/dL 8.4-10.2 yeqt=595) EGFR (BEAKER) (test 22 mL/min/1.73 sq m ESTIMATED GFR IS NOT jlcp=7564) ACCURATE CREATININE CLEARANCE IN PREDICTING GLOMERULAR FILTRATION RATE. ESTIMATED GFR IS NOT APPLICABLE FOR DIALYSIS PATIENTS. PROTHROMBIN TIME/[id number] 07:03:00 Test Item Value Reference Range Comments PROTIME (BEAKER) (test rxfk=119) 14.7 seconds 11.7-14.7 INR (BEAKER) (test hdbr=486) 1.2 <=5.9 RECOMMENDED COUMADIN/WARFARIN INR THERAPY RANGESSTANDARD DOSE: 2.0 - 3.0 Includes: PROPHYLAXIS forvenous thrombosis, systemic embolization; TREATMENT for venous thrombosis and/or pulmonary embolus.HIGH RISK: Target INR is 2.5-3.5 for patients with mechanical heart valves.[id number] 07:01:00 Test Item Value Reference Range Comments PHOSPHORUS (BEAKER) (test whpj=855) 3.9 mg/dL 2.3-4.7 [id number] 07:01:00 Test Item Value Reference Range Comments MAGNESIUM (BEAKER) (test kxju=764) 1.7 mg/dL 1.6-2.6 CALCIUM, [id number] 06:45:00 Test Item Value Reference Range Comments CALCIUM IONIZED (BEAKER) (test khvj=407) 1.00 mmol/L 1.12-1.27 PH, BLOOD (BEAKER) (test odxu=7073) 7.43 POCT-GLUCOSE [id number] 21:06:00 Test Item Value Reference Range Comments POC-GLUCOSE METER (BEAKER) 167 mg/dL 70-110 TESTED AT [address] (test txbp=3031) [place] [address] POCT-GLUCOSE [id number] 17:43:00 Test Item Value Reference Range Comments POC-GLUCOSE METER (BEAKER) 212 mg/dL 70-110 TESTED AT [address] (test qhtx=3759) [place] [address]
[2018-02-08 19:55] LABS: Protime INR 1.04
[2018-02-08 19:58] LABS: Absolute Lymphocytes (CBC) 0.9 K/uL (0.7-4.9); Absolute Monocytes 1.2 K/uL (0.1-1.3); Absolute Neutrophil 7.4 K/uL (1.8-8.0); Basophils % 0.6 % (0-1.3); Eosinophils % 2.2 % (0-4.4); Hematocrit 19.6 % (39.6-49.0); Lymphocytes % 8.9 % (15.3-44.8); MCH 26.1 pg (27.0-35.0); MCV 80.8 fL (80-100); MPV 8.8 fL (7.6-11.3); Monocytes % 12.6 % (3.3-12.3); RBC Red Blood Cell Count 2.42 M/uL (4.33-5.43)
[2018-02-08 20:08] LABS: Potassium 4.3 mEq/L (3.6-5.0)
--- NOTE | 2018-02-08 20:08 | RAD REPORT ---
EXAM DESCRIPTION: Richelle Single View02/08/2018 7:39 pm CLINICAL HISTORY: Chest pain COMPARISON: January 13, 2018 FINDINGS: Small pleural effusions are suspected. Bilateral pulmonary opacities right greater than l eft is seen. The heart is mildly enlarged. Central venous catheter has its limbs in the superior vena cava IMPRESSION: Bilateral pulmonary opacities probably represent pulmonary edema. Small pleural effusion s are suspected
[2018-02-08 20:19] LABS: Albumin 3.2 g/dL (3.2-5.5); Bilirubin Direct 0.1 mg/dL (0-0.2); Bilirubin Total 0.6 mg/dL (0.3-1.2); CKMB Creatine Kinase MB 7.5 ng/ml (0.3-4.0); Magnesium 2.3 mg/dL (1.8-2.5); Protein, Total 6.9 g/dL (6.0-8.3)
[2018-02-08] MEDS ORDERED: HYDROCODONE/APAP 5/325 MG TAB ONE (20:21)
--- NOTE | 2018-02-08 21:33 | EDPHYS ---
Physician Documentation [facility] Name: Federico Martinez Age: 57 yrs Sex: Male : 1960 Arrival Date: 02/08/2018 Time: 18:47 Bed 25 Private MD: ED Physician Kalia Hooks HPI: 02/08 20:00 This 57 yrs old Male presents to ER via EMS with complaints of Abnormal Lab pm1 Results. 20:00 Patient presenting to the emergency department with complaints of abnormal lab result. pm1 Patient with dialysis treatment yesterday and had his labs drawn. Patient contacted [facility] with low hemoglobin of 6.3 and [facility] for [facility] and [facility]. Patient with history of GI bleeding in the past and ESRD. Patient with no complaints except for chronic back pain. No chest pain, shortness of breath, dizziness. Historical: - Allergies: 18:55 No Known Allergies; aj1 - Home Meds: 19:19 Novolin 70/30 suspension 100 unit/ mL. Inject 7 units SQ BID [Active]; Xanax 0.5 mg aj1 Oral tab 1 tab every 8 hours PRN for Anxiety [Active]; fentanyl 25 mcg/hr Topical pt72 1 patch every 72 hours [Active]; alprazolam 1 mg Oral tab Tue, Elissa and Sat for anxiety [Active]; alprazolam 0.5 mg Oral tab 1 tab nightly for Anxiety [Active]; furosemide 40 mg Oral tab 1 tab once daily [Active]; Wildrose 7.5-325 mg Oral tab 1 tab every 6 hours for Pain [Active]; nitroglycerin 0.4 mg SL subl 1 tab every 5 minutes [Active]; nifedipine 90 mg oral TbER [Active]; ziprasidone HCl 40 mg Oral cap 2 times per day [Active]; gabapentin 100 mg Oral cap twice a day [Active]; clonidine HCl 0.3 mg Oral tab 1 tab three times a day [Active]; ondansetron HCl 4 mg Oral tab 1 tabs every 6 hours [Active]; aspirin 81 mg Oral chew 1 tab once daily [Active]; Protonix 40 mg Oral TbEC 1 tab before meals [Active]; carvedilol 25 mg Oral tab 2 times per day [Active]; calcitrol 0.5 mcg daily [Active]; - PMHx: 18:55 Diabetes - IDDM; ESRD; Dialysis; GERD; GI Hemorrhage; HEART FAILURE; Hypertension; aj1 insomnia; Major Depressive Disorder; osteomyelitis; Paraplegia; Parkinsons; Post Laminectomy Syndrome; pressure ulcer of left ankle stage II; Pressure ulcer of right ankle, stage II; Sacral Pressure Ulcer Stage III; - Immunization history:: Adult Immunizations up to date. - Social history:: Smoking status: Patient/guardian denies using tobacco. ROS: 20:00 Constitutional: Negative for fever, chills, and weight loss, Eyes: Negative for injury, pm1 pain, redness, and discharge, ENT: Negative for injury, pain, and discharge, Neck: Negative for injury, pain, and swelling, Cardiovascular: Negative for chest pain, palpitations, and edema, Respiratory: Negative for shortness of breath, cough, wheezing, and pleuritic chest pain, Abdomen/GI: Negative for abdominal pain, nausea, vomiting, diarrhea, and constipation. 20:00 : Negative for injury, bleeding, discharge, and swelling, MS/Extremity: Negative for injury and deformity, Skin: Negative for injury, rash, and discoloration, Neuro: Negative for headache, weakness, numbness, tingling, and seizure. 20:00 Back: Positive for of the low back area, pain. Exam: 20:00 Constitutional: This is a well developed, well nourished patient who is awake, alert, pm1 and in no acute distress. Head/Face: Normocephalic, atraumatic. ENT: Nares patent. No nasal discharge, no septal abnormalities noted. Tympanic membranes are normal and external auditory canals are clear. Oropharynx with no redness, swelling, or masses, exudates, or evidence of obstruction, uvula midline. Mucous membranes moist. 20:00 Neck: Trachea midline, no thyromegaly or masses palpated, and no cervical lymphadenopathy. Supple, full range of motion without nuchal rigidity, or vertebral point tenderness. No Meningismus. Chest/axilla: Normal chest wall appearance and motion. Nontender with no deformity. No lesions are appreciated. Cardiovascular: Regular rate and rhythm with a normal S1 and S2. No gallops, murmurs, or rubs. Normal PMI, no JVD. No pulse deficits. Respiratory: Lungs have equal breath sounds bilaterally, clear to auscultation and percussion. No rales, rhonchi or wheezes noted. No increased work of breathing, no retractions or nasal flaring. Abdomen/GI: Soft, non-tender, with normal bowel sounds. No distension or tympany. No guarding or rebound. No evidence of tenderness throughout. Back: No spinal tenderness. No costovertebral tenderness. Full range of motion. 20:00 MS/ Extremity: Pulses equal, no cyanosis. Neurovascular intact. Full, normal range of motion. 20:00 Eyes: Periorbital structures: appear normal, Pupils: no acute changes, Extraocular movements: no acute changes, Conjunctiva: pale, Corneas: are normal, Sclera: no appreciated abnormality. 20:00 Skin: Appearance: Color: pale. 20:00 Neuro: Orientation: is normal, Mentation: is normal, Motor: moves all fours. Vital Signs: 18:55 BP 130 / 75; Pulse 55; Resp 18; Pulse Ox 99% on R/A; Height 5 ft. 7 in. (170.18 cm); aj1 Pain 10/10; 20:26 BP 135 / 82; Pulse 60; Resp 18; Pulse Ox 99% on R/A; aj1 21:29 BP 115 / 60; Pulse 85; Resp 18; Pulse Ox 96% on R/A; aj1 23:20 BP 134 / 68; Pulse 77; Resp 18; Pulse Ox 94% on R/A; Pain 8/10; ao MDM: 19:03 Patient medically screened. pm1 20:15 Counseling: I had a detailed discussion with the patient and/or guardian regarding: the pm1 historical points, exam findings, and any diagnostic results supporting the discharge/admit diagnosis, lab results, the need for further work-up and treatment in the hospital, Patient does not want to stay in the hospital. Wants to get blood transfusion and [facility]. 21:25 Physician consultation: Wei Nice MD was called at 21:17, was contacted at pm1 21:17, regarding consult, patient's condition, Informed her that patient currently does not want to stay in the hospital. If he does not want to stay, give the patient lasix 80 mg IV and transfuse one unit of blood. If he will stay then she will transfuse two units of blood with dialysis tomorrow. 21:27 Data reviewed: vital signs. Data interpreted: Pulse oximetry: on room air is 99 %. pm1 Interpretation: normal. 21:32 ED course: Patient is willing to stay in the hospital now. pm1 22:15 Physician consultation: Wei Nice MD was contacted at 22:15, regarding Positive pm1 stool guaiac. She is aware that he has history of GI bleeding and has had multiple EGDs performed. 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 Treatment blood transfusion tomorrow. 02/08 19:08 Order name: Basic Metabolic Panel pm02/08 19:08 Order name: BNP pm1 02/08 19:08 Order name: CBC with Diff; Complete Time: 20:05 pm1 02/08 19:08 Order name: Ckmb; Complete Time: 20:47 pm1 02/08 19:08 Order name: CPK; Complete Time: 20:47 pm1 02/08 19:08 Order name: LFT's; Complete Time: 20:47 pm1 02/08 19:08 Order name: Magnesium; Complete Time: 20:47 pm1 02/08 19:08 Order name: PT-INR; Complete Time: 20:01 pm1 02/08 19:08 Order name: Ptt, Activated; Complete Time: 20:01 pm1 02/08 19:08 Order name: Troponin (emerg Dept Use Only); Complete Time: 20:16 pm1 02/08 19:08 Order name: Type And Screen pm02/08 19:09 Order name: Basic Metabolic Panel; Complete Time: 20:47 EDMS 02/08 19:09 Order name: BNP B-Type Natriuretic Peptide; Complete Time: 20:18 EDMS 02/08 21:43 Order name: Packed RBC Leukored -1 EDMS 02/08 19:08 Order name: XRAY Chest (1 view); Complete Time: 20:16 pm1 02/08 19:08 Order name: EKG; Complete Time: 19:09 pm1 02/08 19:08 Order name: Cardiac monitoring; Complete Time: 19:48 pm1 02/08 19:08 Order name: EKG - Nurse/Tech; Complete Time: 19:46 pm1 02/08 19:08 Order name: IV Saline Lock; Complete Time: 19:38 pm1 02/08 19:08 Order name: Labs collected and sent; Complete Time: 19:38 pm1 02/08 19:08 Order name: O2 Per Protocol; Complete Time: 19:46 pm1 02/08 19:08 Order name: O2 Sat Monitoring; Complete Time: 19:38 pm1 Administered Medications: 20:25 Drug: Wildrose 5 mg-325 mg 1 tabs Route: PO; aj1 22:22 Follow up: Response: No adverse reaction aj1 Disposition: 02/08/18 21:33 Hospitalization ordered by Meg Nixon for Observation. Preliminary diagnosis are Anemia, unspecified, End stage renal disease. - Bed requested for Telemetry/MedSurg (observation). - Status is Observation. ao - Condition is Stable. - Problem is chronic. - Symptoms are unchanged. UTI on Admission? No Addendum: 02/23/2018 19:57 Co-signature as Attending Physician, Kalia Hooks MD I agree with the assessment and k dr plan of care. Signatures: Dispatcher [employer] EDCA Staci Patel RN RN aj1 Camilla Mazariegos RN RN kl Rittger, Kevin, MD MD kdr Ortiz, Alex, RN RN ao Marinas, Patrick, EDDIE LEATHER COATER pm1 Corrections: (The following items were deleted from the chart) 02/08 23:01 21:33 Hospitalization Ordered by Meg Nixon MD for Observation. Preliminary diagnosis is Anemia, unspecified; End stage renal disease. Bed requested for Telemetry/MedSurg (observation). Status is Observation. Condition is Stable. Problem is chronic. Symptoms are unchanged. UTI on Admission? No. pm1 02/09 00:07 02/08 23:01 02/08/2018 21:33 Hospitalization Ordered by Meg Nixon MD for ao Observation. Preliminary diagnosis is Anemia, unspecified; End stage renal disease. Bed requested for Telemetry/MedSurg (observation). Status is Observation. Condition is Stable. Problem is chronic. Symptoms are unchanged. UTI on Admission? No. kl
--- NOTE | 2018-02-08 21:33 | ER ---
Nurse's Notes [facility] Name: Federico Martinez Age: 57 yrs Sex: Male : 1960 Arrival Date: 02/08/2018 Time: 18:47 Bed 25 Private MD: Diagnosis: Anemia, unspecified;End stage renal disease Presentation: 02/08 18:50 Presenting complaint: EMS states: Patient had dialysis yesterday, and they ran labs. aj1 Today the dialysis nursed called and said that his hemoglobin was 6.3 and that he needed to come to the ER to be seen. Patient complains of back pain which is chronic but has no other complaints at this time. Transition of care: patient was received from another setting of care ([facility]. Onset of symptoms was February 07, 2018. Initial Sepsis Screen: Does the patient meet any 2 criteria? No. Patient's initial sepsis screen is negative. Does the patient have a suspected source of infection? No. Patient's initial sepsis screen is negative. Care prior to arrival: None. 18:50 Method Of Arrival: EMS aj1 18:50 Acuity: CHARLES 3 aj1 Triage Assessment: 18:55 General: Appears in no apparent distress. uncomfortable, Behavior is calm, cooperative, aj1 appropriate for age. Pain: Complains of pain in back Pain does not radiate. Pain currently is 10 out of 10 on a pain scale. Quality of pain is described as aching. Historical: - Allergies: 18:55 No Known Allergies; aj1 - Home Meds: 19:19 Novolin 70/30 suspension 100 unit/ mL. Inject 7 units SQ BID [Active]; Xanax 0.5 mg aj1 Oral tab 1 tab every 8 hours PRN for Anxiety [Active]; fentanyl 25 mcg/hr Topical pt72 1 patch every 72 hours [Active]; alprazolam 1 mg Oral tab Tue, Elissa and Sat for anxiety [Active]; alprazolam 0.5 mg Oral tab 1 tab nightly for Anxiety [Active]; furosemide 40 mg Oral tab 1 tab once daily [Active]; [place] 7.5-325 mg Oral tab 1 tab every 6 hours for Pain [Active]; nitroglycerin 0.4 mg SL subl 1 tab every 5 minutes [Active]; nifedipine 90 mg oral TbER [Active]; ziprasidone HCl 40 mg Oral cap 2 times per day [Active]; gabapentin 100 mg Oral cap twice a day [Active]; clonidine HCl 0.3 mg Oral tab 1 tab three times a day [Active]; ondansetron HCl 4 mg Oral tab 1 tabs every 6 hours [Active]; aspirin 81 mg Oral chew 1 tab once daily [Active]; Protonix 40 mg Oral TbEC 1 tab before meals [Active]; carvedilol 25 mg Oral tab 2 times per day [Active]; calcitrol 0.5 mcg daily [Active]; - PMHx: 18:55 Diabetes - IDDM; ESRD; Dialysis; GERD; GI Hemorrhage; HEART FAILURE; Hypertension; aj1 insomnia; Major Depressive Disorder; osteomyelitis; Paraplegia; Parkinsons; Post Laminectomy Syndrome; pressure ulcer of left ankle stage II; Pressure ulcer of right ankle, stage II; Sacral Pressure Ulcer Stage III; - Immunization history:: Adult Immunizations up to date. - Social history:: Smoking status: Patient/guardian denies using tobacco. Screenin:32 Abuse screen: Denies threats or abuse. Denies injuries from another. Nutritional aj1 screening: No deficits noted. Tuberculosis screening: No symptoms or risk factors identified. 02/09 00:07 Fall Risk Fall in past 12 months (25 points). Mental Status- Overestimates/Forgets ao Limitations (15 pts.). Assessment: 02/08 19:32 General: Appears in no apparent distress. uncomfortable, Behavior is calm, cooperative, aj1 appropriate for age. Pain: Complains of pain in back Pain does not radiate. Pain currently is 10 out of 10 on a pain scale. Quality of pain is described as sharp, Pain began years ago. Is continuous. Neuro: Level of Consciousness is awake, alert, obeys commands, Oriented to person, place, time, situation, Speech is normal, Facial symmetry appears normal. Cardiovascular: Heart tones S1 S2 present Patient's skin is warm and dry. Respiratory: Airway is patent Respiratory effort is even, unlabored, Respiratory pattern is regular, symmetrical, Breath sounds are clear bilaterally. GI: No signs and/or symptoms were reported involving the gastrointestinal system. : No signs and/or symptoms were reported regarding the genitourinary system. EENT: No signs and/or symptoms were reported regarding the EENT system. Derm: No signs and/or symptoms reported regarding the dermatologic system. Skin is pink, warm \\T\\ dry. normal. Musculoskeletal: No signs and/or symptoms reported regarding the musculoskeletal system. Circulation, motion, and sensation intact. 20:20 Reassessment: Patient appears agitated, screaming at staff states "I NEED PAIN aj1 MEDICATION OR IM LEAVING MY BACK HURTS! I HAVE CHRONIC PAIN!" Notified Suyapa Vazquez NP of patient request, order recieved. 20:25 Reassessment: Patient appears in no apparent distress at this time. No changes from aj1 previously documented assessment. Patient and/or family updated on plan of care and expected duration. Pain level reassessed. Patient is alert, oriented x 3, equal unlabored respirations, skin warm/dry/pink. 20:59 Reassessment: Patient appears agitated, screaming at staff states "IF Y'ALL AREN'T aj1 GOING TO DO ANYTHING THEN JUST SEND ME BACK TO THE [facility]!" Explained to patient that we had done labs and a EKG, explained lab results and that we are waiting to hear back from his transportation museum helper to see if he can get blood transfusion now or if he needs to get it during dialysis to prevent fluid overload. Patient verbalized understanding. 21:11 Reassessment: Patient appears agitated, screaming in his room. Patient was asked why he aj1 was screaming states "Because this bed is uncomfortable. I need you to put me on a more comfortable bed right now or I'm leaving!" Explained to patient that we would be able to move him to different bed whenever it was decided if he would be admitted or discharged. Offered to reposition patient. Patient agrees and was assisted to a more comfortable position. 21:28 Reassessment: Patient states that he would like some ice chips. Notified EDDIE Aragon1 of patient request. Patient given ice chips, assisted to sitting position in the bed. Denies any further needs, questions, or concerns at this time. 22:03 Reassessment: Diaper checked, patient pulled up in bed and assisted into a position of aj1 comfort. Patient c/o being hot and was assisted into a hospital gown for comfort. Patient states he would like more pain medication. Notified Suyapa Vazquez NP. 22:15 General: Appears in no apparent distress. uncomfortable, Behavior is calm, cooperative, ao appropriate for age. Pain: Complains of pain in back Pain currently is 10 out of 10 on a pain scale. Quality of pain is described as sharp, Pain began years ago. Is continuous. Neuro: Level of Consciousness is awake, alert, obeys commands, Oriented to person, place, time, situation, Speech is normal, Facial symmetry appears normal. Cardiovascular: Patient's skin is warm and dry. Respiratory: Airway is patent Respiratory effort is even, unlabored, Respiratory pattern is regular, symmetrical. GI: Abdomen is obese. : No signs and/or symptoms were reported regarding the genitourinary system. EENT: No signs and/or symptoms were reported regarding the EENT system. Derm: Skin is pink, warm \\T\\ dry. normal. Musculoskeletal: No signs and/or symptoms reported regarding the musculoskeletal system. Circulation, motion, and sensation intact. 23:20 Reassessment: Patient appears in no apparent distress at this time. Patient and/or ao family updated on plan of care and expected duration. Pain level reassessed. Patient is alert, oriented x 3, equal unlabored respirations, skin warm/dry/pink. Patient to be admitted to the hospital. Waiting on Dr orders. Vital Signs: 18:55 BP 130 / 75; Pulse 55; Resp 18; Pulse Ox 99% on R/A; Height 5 ft. 7 in. (170.18 cm); aj1 Pain 10/10; 20:26 BP 135 / 82; Pulse 60; Resp 18; Pulse Ox 99% on R/A; aj1 21:29 BP 115 / 60; Pulse 85; Resp 18; Pulse Ox 96% on R/A; aj1 23:20 BP 134 / 68; Pulse 77; Resp 18; Pulse Ox 94% on R/A; Pain 8/10; ao ED Course: 18:47 Patient arrived in ED. aj1 18:51 Triage completed. aj1 18:55 Arm band placed on. aj1 19:03 Drew Vazquez NP is PHCP. pm1 19:03 Kalia Hooks MD is Attending Physician. pm1 19:32 Staci Patel RN is Primary Nurse. aj1 19:32 Patient has correct armband on for positive identification. Bed in low position. Call aj1 light in reach. Side rails up X 1. international controller on. Pulse ox on. NIBP on. 19:32 No provider procedures requiring assistance completed. aj1 19:33 XRAY Chest (1 view) In Process Unspecified. EDMS 21:32 Meg Nixon MD is Hospitalizing Provider. pm1 22:03 Served as a consulting networking engineer during rectal exam. aj1 22:21 Report given to LIZABETH Smith. aj1 02/09 00:00 Patient admitted, IV remains in place. Patient had 20 G on the RAC. ao Administered Medications: 02/08 20:25 Drug: [place] 5 mg-325 mg 1 tabs Route: PO; aj1 22:22 Follow up: Response: No adverse reaction aj1 Outcome: 21:33 Decision to Hospitalize by Provider. pm1 02/09 00:06 Admitted to Med/surg accompanied by [facility], room 224. ao Condition: stable Instructed on the need for admit. 00:07 Patient left the ED. ao Signatures: Dispatcher [employer] EDMS Staci Patel RN RN aj1 Luis Shafer RN RN ao Marinas, Patrick, PEELER OPERATOR PEELER OPERATOR pm1 Corrections: (The following items were deleted from the chart) 02/08 21:42 21:29 BP 115 / 60; Pulse 65bpm; Resp 18bpm; Pulse Ox 96% RA; aj1 aj1
--- NOTE | 2018-02-08 23:19 | P.HP ---
Certification for Inpatient Patient admitted to: Observation With expected LOS: <2 Midnights Practitioner: I am a practitioner with admitting privileges, knowledge of patient current condition, hospital course, and medical plan of care. Services: Services provided to patient in accordance with Admission requirements found in Title 42 Section 412.3 of the Code of Federal Regulations Patient History Date of Service: 02/08/18 Reason for admission: anemia History of Present Illness: Mr Martinez is a 57 years old male with multiple medical problems including DM II, HTN, ESRD on HD, chronic pain syndrome who had HD yesterday and also had a lab work done. Today, he was called with the results. His Hgb was 6.3 mg/dl (drop from 8.1 mg/dl 1 week ago), HD nurse advised to come to ED for evaluation. The patient denied any black or bloody stools. He has history of GIB, EGD done last admission was remarkable for esophageal ulcer healed, esophagitis and gastritis. His only complains is chronic back pain. He denied news symptoms. En ER he received [place] and after that his speech become slurred, but no neurologic deficit noted. He denied chest pain or SOB. Allergies No Known Drug Allergies Allergy (Verified 12/01/17 23:37) Unknown No Known Allergies Allergy (Uncoded 01/11/18 03:07) Unknown Home medications list reviewed: Yes Home Medications: Cholecalciferol (Vitamin D3) [Vitamin D3] 5,000 unit PO DAILY 04/04/17 Donepezil HCl 10 mg PO BEDTIME 04/04/17 Losartan Potassium [Cozaar*] 50 mg PO BID 04/04/17 Ranolazine [Ranexa] 500 mg PO BID 04/04/17 Venlafaxine HCl [Venlafaxine HCl ER] 150 mg PO BID 04/04/17 Acetaminophen [Pain Relief] 650 mg PO Q6HP PRN 05/11/17 Fentanyl Patch [Duragesic Patch*] 25 mcg TD Q72H 06/14/17 Ipratropium/Albuterol Sulfate [Iprat-Albut 0.5-3(2.5) mg/3 ml] 3 ml IH Q6HP PRN 06/14/17 Ziprasidone HCl [Geodon*] 40 mg PO BID 06/14/17 Carvedilol [Coreg*] 25 mg PO BID 6AM 6PM #60 tab 06/15/17 Doxazosin [Cardura*] 4 mg PO BID #30 tab 06/15/17 Folic Acid 1 mg PO DAILY #30 tablet 06/15/17 Hydrocodone 7.5/APAP 325 [[place] 7.5/325 mg*] 1 tab PO Q6HP PRN 09/04/17 Pramipexole [Mirapex*] 0.25 mg PO BEDTIME 09/04/17 Clonidine HCl 0.3 mg PO TID #90 tablet 09/19/17 Insulin NPH Human [Novolin N (Humulin N)*] 7 units SQ BID 09/19/17 Alprazolam [Xanax] 0.5 mg PO Q8H PRN 12/01/17 Gabapentin [Neurontin*] 100 mg PO BID 12/01/17 Nifedipine [Nifedipine ER] 90 mg PO BID 12/01/17 Ondansetron [Zofran (Odt)*] 4 mg PO Q6H PRN 12/01/17 Aspirin Chewable [Aspirin Chewable*] 162 mg PO DAILY #30 tab.chew 12/04/17 Atorvastatin Calcium [Lipitor*] 10 mg PO BEDTIME #30 tab 12/04/17 Calcitrol [Rocaltrol*] 0.5 mcg PO DAILY #30 cap 12/04/17 Arformoterol Tartrate [Brovana] 15 mcg IH BID 12/22/17 Nitroglycerin 0.4 mg SL Q5MX3 PRN 12/22/17 Pantoprazole [Protonix Tab*] 40 mg PO BID #60 tab 12/26/17 Furosemide [Lasix] 40 mg PO BID #60 tablet 01/11/18 Levofloxacin [Levaquin] 500 mg PO DAILY #14 tablet 01/11/18 - Past Medical/Surgical History Diabetic: Yes -: DM-Type 2 -: HTN -: Hyperlipidemia -: Dementia, Parkinsons disease -: GERD -: ESRD, Nephrology-Dr. Leavitt, Dialysis-,[place] -: Restless leg syndrome -: COPD -: Depression, insomnia -: Anemia of chronic disease -: Normal-pressure hydrocephalus -: CAD, PUD -: Cardiac stents. -: Numerous back surgeries Psychosocial/ Personal History: He has a girlfriend. He has one daughter. [facility] - Family History Mother -: Heart disease, Hypertension Father -: Heart disease - Social History Alcohol use: No CD- Drugs: No Caffeine use: Yes Place of Residence: Home Review of Systems 10-point ROS is otherwise unremarkable Physical Examination - Physical Exam General: Alert, In no apparent distress HEENT: Atraumatic, PERRLA, Mucous membr. moist/pink, EOMI, Sclerae nonicteric Neck: Supple, 2+ carotid pulse no bruit, No LAD, Without JVD or thyroid abnormality Respiratory: Diminished, Other (coarse bilateral) Cardiovascular: Regular rate/rhythm, Normal S1 S2 Gastrointestinal: Normal bowel sounds, Tenderness (diffuse tender to palpation) Musculoskeletal: No tenderness Integumentary: No rashes Neurological: Normal strength at 5/5 x4 extr, Normal tone, Normal affect, Abnormal speech (slurred) Lymphatics: No axilla or inguinal lymphadenopathy - Studies Laboratory Data (last 24 hrs) 02/08/18 19:40: PT 12.3, INR 1.04, APTT 34.2 02/08/18 19:40: WBC 9.8, Hgb 6.3 L*, Hct 19.6 L* D, Plt Count 148 L D 02/08/18 19:40: B-Natriuretic Peptide 925 H 02/08/18 19:40: Sodium 141, Potassium 4.3, BUN 58 H D, Creatinine 3.86 H D, Glucose 89, Magnesium 2.3, Total Bilirubin 0.6, AST 14, ALT 11, Alkaline Phosphatase 72 Assessment and Plan - Problems (Diagnosis) (1) History of upper gastrointestinal bleeding Current Visit: Yes Status: Acute (2) Troponin level elevated Current Visit: No Status: Acute (3) Anemia Onset Date: 12/24/17 Current Visit: No Status: Chronic Qualifiers: Anemia type: other cause Other causes of anemia: chronic disease, other Qualified Code(s): D63.8 - Anemia in other chronic diseases classified elsewhere (4) Hypertension Onset Date: 12/24/17 Current Visit: No Status: Chronic Qualifiers: Hypertension type: essential hypertension Qualified Code(s): I10 - Essential (primary) hypertension - Plan Mr Martinez will be admitted to the hospital due to anemia. He has history of GIB, guaiac is positive, he also has CKD which may play a role. Case discussed with Nephrology, and she has recommended to transfuse 2 UNITS of PRBC's tomorrow during HD to avoid overload. The patient is hemodynamically stable so far. - Advance Directives Does patient have a Living Will: No Does patient have a Durable POA for Healthcare: Yes - Code Status/Comfort Care Code Status Assessed: Yes Code Status: Full Code
[2018-02-08] MEDS ORDERED: SODIUM CHLORIDE 0.9% 10ML INJ IV PRN (23:36)
[2018-02-08] MEDS ORDERED: ACETAMINOPHEN 500 MG TAB PO PRN (23:36)
[2018-02-09] MEDS: ONDANSETRON 4 MG/2 ML VIAL IV PRN ×2 (02:27→22:46)
[2018-02-09 02:42] VITALS: BMI 29.7
[2018-02-09 05:24] LABS: Absolute Lymphocytes (CBC) 0.8 K/uL (0.7-4.9); Absolute Neutrophil 7.9 K/uL (1.8-8.0); Basophils % 0.5 % (0-1.3); Eosinophils % 1.8 % (0-4.4); Lymphocytes % 8.3 % (15.3-44.8); MCH 25.9 pg (27.0-35.0); MPV 8.6 fL (7.6-11.3); Monocytes % 9.8 % (3.3-12.3)
[2018-02-09 05:35] LABS: Hematocrit 19.7 % (39.6-49.0)
[2018-02-09 05:58] LABS: Potassium 4.3 mEq/L (3.6-5.0)
[2018-02-09] MEDS: INSULIN -REGULAR HUMAN 50 UNIT/0.5 ML ML SQ SCH ×4 (06:00→18:00)
[2018-02-09 06:13] LABS: Anisocytosis 2+; Blood Morphology Comment NOTED (NOT SEEN); Platelet Estimate DECR; Urine White Blood Cell Casts OK
[2018-02-09 06:14] LABS: Hypochromasia 1+; Ovalocytes SLIGHT; Poikilocytosis 1+; Polychromasia 1+
--- NOTE | 2018-02-09 07:17 | EKG ---
Test Date: 2018-02-08 Test Time: 19:41:33 Book Editor: AMANDA MEASUREMENT RESULTS: Intervals: Rate: 54 NH: 168 QRSD: 138 QT: 528 QTc: 500 [place]: P: 37 NH: 168 QRS: 67 T: -1 INTERPRETIVE STATEMENTS: Sinus bradycardia Nonspecific intraventricular block Nonspecific T wave abnormality Cannot rule out Inferior infarct Abnormal ECG Compared to ECG 01/13/2018 00:39:29 no significant change from previous ECG Electronically Signed On 02-09-18 07:16:37 CDT by Júnior Napoles
[2018-02-09] MEDS ORDERED: INSULIN -REGULAR HUMAN 50 UNIT/0.5 ML ML SQ SCH (07:30)
[2018-02-09] MEDS ORDERED: ALBUTEROL INHALER 60 PUFF/8 GM IH PRN (08:02)
[2018-02-09] MEDS ORDERED: IPRATROPIUM BROM 0.5MG/2.5ML ONE (08:07)
[2018-02-09] MEDS ORDERED: ALBUTEROL 2.5 MG/3 ML NEB SOL ONE (08:07)
[2018-02-09] MEDS ORDERED: FUROSEMIDE 20 MG/ 2ML VIAL IV ONE (08:10)
[2018-02-09] MEDS ORDERED: NA CHLORIDE 0.9% 1,000 ML IV PRN (10:16)
[2018-02-09] MEDS ORDERED: MANNITOL 25% 12.5 GM/50 ML VIAL IV PRN (10:16)
[2018-02-09] MEDS ORDERED: HYDROCODONE/APAP 7.5/325 MG TAB PO PRN (10:34)
[2018-02-09] MEDS ORDERED: NITROGLYCERIN 0.4 MG/TAB SL PRN (10:34)
[2018-02-09] MEDS ORDERED: IPRATROPIUM BROM 0.5MG/2.5ML IH PRN (10:34)
[2018-02-09] MEDS ORDERED: HOME MED 1 EA UNK (Fentanyl [Fentanyl] 1 EACH) TD SCH (10:45)
[2018-02-09] MEDS ORDERED: GLUCAGON 1 MG/VIAL IM PRN (11:00)
[2018-02-09] MEDS ORDERED: ALBUMIN HUMAN 25% 50 ML IV SCH (11:00)
[2018-02-09] MEDS ORDERED: D50W 25 GM/50 ML SYRINGE IV PRN (11:00)
[2018-02-09] MEDS ORDERED: ALPRAZOLAM 1 MG TABLET PO SCH (11:00)
[2018-02-09] MEDS: EPOETIN ALFA 10,000 UNIT/ML VIAL IV SCH (11:31)
[2018-02-09] MEDS ORDERED: HOME MED 1 EA UNK (Fentanyl [Fentanyl] 25 MCG) TD SCH (11:43)
[2018-02-09 12:43] LABS: Arterial Blood Carboxyhemoglob 1.9 % (0-1.5); Blood Gas Oxyhemoglobin 82.3 % (94-97); Blood O2 Saturation 85.6 % (92-98.5)
[2018-02-09] MEDS: PANTOPRAZOLE 40 MG INJ IVP SCH ×2 (13:44→21:52)
[2018-02-09] MEDS: CLONIDINE HCL 0.3 MG TAB PO SCH ×2 (13:45→21:51)
[2018-02-09] MEDS: NIFEDIPINE XL 90 MG TABLET PO SCH ×2 (13:45→21:50)
[2018-02-09 13:48] LABS: Hematocrit 28.5 % (39.6-49.0)
--- NOTE | 2018-02-09 15:07 | PN ---
Date of Progress Note: 02/09/2018 Subjective: The patient was seen and examined. Chart reviewed and case discussed with RN. The patient was in significant respiratory distress. This morning was contacted by the nurse taking care of him. Elisabeth del rio was called due to acute respiratory distress. The patient was given breathing treatment, placed on a non-rebreather, which improved his condition. The patient is very anxious as well. An ABG showed significant acidosis with an ABG showing a pH of 7.2, oxygen saturation is stable. Review of Systems: Negative except as above. Medications: Reviewed. Physical Examination: Vital Signs: Temperature 97.9, heart rate 89, blood pressure 171/79, respirations 18, O2 100% on BiPAP. General: Awake, alert, oriented x3, in moderate respiratory distress, anxious. Appears older than stated age. Obese male. CV: S1, S2. Regular rate and rhythm. Peripheral pulses weak bilaterally. Respiratory: Diminished breath sounds. Wheezing is heard. The patient is tachypneic. Use of accessory muscles is present Gastrointestinal: Abdomen is soft, nontender, nondistended. Positive bowel sounds. Extremities: No clubbing, cyanosis, edema. Neurologic: Nonfocal. Laboratory Data: Sodium 142, potassium 4.3, chloride 106, CO2 26, BUN 70, creatinine 4.38, glucose 118, calcium 8.5. WBC 9.9, H and H 6.2, 19.7, platelets 134, neutrophils 79%. Chest x-ray shows bilateral pulmonary opacities probably representing pulmonary edema. Small pleural effusions suspected. Assessment And Plan: A 57-year-old male with: 1. Acute respiratory distress. We will start on BiPAP. The patient is acidotic. 2. Metabolic acidosis. 3. Elevated troponin level likely secondary to above. 4. Acute and chronic anemia of chronic disease. The patient will need blood transfusion with hemodialysis. 5. End-stage renal disease, on hemodialysis. The patient will be dialyzed today. Appreciate Nephrology input. 6. Essential hypertension. Resume home medications as appropriate. 7. Diabetes mellitus type 2, insulin requiring with hyperglycemia. We will continue sliding scale. 8. Hyperlipidemia. 9. Continue statin. 10. Parkinson disease. 11. Dementia. 12. Gastroesophageal reflux disease without esophagitis. Continue PPI. 13. Restless legs syndrome. 14. Chronic obstructive pulmonary disease. We will start on breathing treatments and steroids as needed. 15. Major depressive disorder. I will continue home medication. 16. Generalized anxiety disorder. 17. Insomnia. 18. Normal-pressure hydrocephalus. 19. Coronary artery disease [place] artery and [place] heart without angina. 20. Gastrointestinal and deep venous thrombosis prophylaxis with PPI and Lovenox renally dosed. Plan: We will get a repeat ABG in 2 hours and start on BiPAP. pulmonology consult. /BG Voice ID: [id number] Report ID: [id number] MTDD
[2018-02-09] MEDS: FUROSEMIDE 40 MG TABLET PO SCH (18:15)
[2018-02-09] MEDS: FENTANYL 25 MCG/PATCH TD SCH (18:16)
--- NOTE | 2018-02-09 18:19 | CON ---
Date of Consultation: 02/09/2018 Reason For Consult: ESRD on dialysis with severe anemia. History Of Present Illness: Mr. Martinez is a 57-year-old male with past medical history significant fo r history of ESRD, on dialysis; history of osteomyelitis of his spine; history of multiple admissions for anemia related to possibly from small intestinal bleed from AV malformations, presented to [facility] after he has been sent from the dialysis unit for severe anemia. His hemoglo bin was 6.3. The patient has been transfuse with 2 units of blood and dialysis has been done, 1.7 L have been removed. The patient is unable to give much history. He is currently on BiPAP. Past Medical History: Significant for history of recurrent GI bleeds with multiple transfusions in t he past, history of unstable angina, coronary artery disease, COPD and acid reflux, and history of mu ltiple psych issues with bipolar disease. Past Surgical History: History of numerous back surgeries, cardiac stent. Family History: Noncontributory. Social History: Currently lives at [facility]. Review of Systems: Could not be obtained. Physical Examination: Vital Signs: At this time are showing temperature of 97.9, pulse rate of 89, respiratory rate of 18, blood pressure 171/79. General: He appears in no acute distress. Currently, on BiPAP. HEENT: Atraumatic head. Lungs: Auscultation of the lungs revealed bilateral equal air entry anteriorly. Abdomen: Soft. Extremities: Without any evidence of edema. Laboratory Data: At this time is showing improved hemoglobin of 9.4, hematocrit 28.5. BMP results a re showing creatinine stable at 4.38, BUN of 70, potassium of 4.3, and sodium of 142. Impression: 1.Acute anemia, secondary to possibly from GI bleed, possibly AV malformations. The patient underwe nt blood transfusion with improvement in hemoglobin and continue to be monitored. 2.End-stage renal disease, on dialysis. The patient has undergone dialysis on Sunday, , dialysis schedule. If he continues to have volume overload, he may need extra dialysis sessio n tomorrow. 3.Hypertension, stable. 4.Type 2 diabetes, stable. 5.Coronary artery disease, currently stable. Plan: The patient is overall doing okay. Continue to wean off BiPAP and monitor his volume status c losely and monitor hemoglobin and may need extra dialysis treatment tomorrow if continues to have vol ume overload. VV/MODL Voice ID: [id number] Report ID: [id number]
[2018-02-09] MEDS: ALPRAZOLAM 0.5 MG TABLET PO SCH (19:09)
[2018-02-09] MEDS ORDERED: ALBUTEROL 2.5 MG/3 ML NEB SOL NEB PRN (19:14)
[2018-02-09] MEDS: NPH (HUMAN) 100 UNITS/ML INSULIN SQ SCH (21:00)
[2018-02-09] MEDS: GABAPENTIN 100 MG CAP PO SCH (21:52)
[2018-02-10] MEDS ORDERED: HYDRALAZINE HCL 20 MG/ML VIAL IV PRN (04:59)
[2018-02-10 05:08] LABS: Absolute Neutrophil 7.7 K/uL (1.8-8.0); Basophils % 0.7 % (0-1.3); Eosinophils % 1.2 % (0-4.4); Hematocrit 26.1 % (39.6-49.0); Lymphocytes % 9.7 % (15.3-44.8); MCH 27.1 pg (27.0-35.0); MCV 83.3 fL (80-100); MPV 8.6 fL (7.6-11.3); RBC Red Blood Cell Count 3.13 M/uL (4.33-5.43)
[2018-02-10] MEDS: FUROSEMIDE 40 MG TABLET PO SCH ×2 (05:12→17:55)
[2018-02-10 05:40] LABS: Albumin 2.9 g/dL (3.2-5.5); Bilirubin Total 0.6 mg/dL (0.3-1.2); Protein, Total 6.2 g/dL (6.0-8.3)
[2018-02-10] MEDS: INSULIN -REGULAR HUMAN 50 UNIT/0.5 ML ML SQ SCH ×4 (07:30→21:00)
[2018-02-10] MEDS: NPH (HUMAN) 100 UNITS/ML INSULIN SQ SCH ×2 (07:42→21:00)
[2018-02-10] MEDS: LORazepam 2 MG/ML VIAL IV ONE ×2 (08:42→09:00)
[2018-02-10] MEDS: CLONIDINE HCL 0.3 MG TAB PO SCH ×3 (08:57→21:22)
[2018-02-10] MEDS: NIFEDIPINE XL 90 MG TABLET PO SCH ×2 (08:57→21:23)
[2018-02-10] MEDS: GABAPENTIN 100 MG CAP PO SCH ×2 (08:57→21:26)
[2018-02-10] MEDS: PANTOPRAZOLE 40 MG INJ IVP SCH ×2 (08:57→21:26)
[2018-02-10] MEDS: ENOXAPARIN 30 MG/0.3 ML SQ SCH (08:57)
--- NOTE | 2018-02-10 10:47 | RAD REPORT ---
EXAM DESCRIPTION: RAD - Abdomen Single View - 02/10/2018 9:41 am CLINICAL HISTORY: Abdominal pain and distention. COMPARISON: 12/20/2017 FINDINGS: The abdominal cavity has a hazy appearance, which can indicate the presence of ascites. No bowel obstruction is suspected. No pneumoperitoneum is appreciated. Hardware is present lumbar spine .
--- NOTE | 2018-02-10 13:58 | PN ---
Date of Progress Note: 02/10/2018 Subjective: The patient seen and examined. Chart reviewed and case discussed with RN. The patient again complaining of pain all over. States, seems to be very agitated. Now off BiPAP. States his s tomach hurts. Review of Systems: Negative except as above. Medications: Reviewed. Physical Examination: Vital Signs: Temperature 98, heart rate 82, blood pressure 178/84, respirations 18, O2 of 99% on 2 L via nasal cannula. General: Awake, alert, oriented x3, in some mild distress, appears older than stated age, ill-appear ing male, obese. CVS: S1, S2. Regular rate and rhythm and rhythm. Peripheral pulses present bilaterally. Respiratory: Diminished breath sounds. Some crackles heard. No wheezing or stridor. Gastrointestinal: Abdomen is soft. Mild tenderness to palpation. No guarding or rigidity. Bowel s ounds are positive. Extremities: No clubbing, cyanosis, edema. Neurologic: Nonfocal. Laboratory Data: Sodium 138, potassium 4, chloride 106, CO2 of 25, BUN 34, creatinine 3.25, glucose 86, calcium 8.8, albumin 2.9. WBC 9.8, H and H are 8.5 and 26.1, platelets 165, neutrophils 78%. Assessment And Plan: A 57-year-old male with: 1.Acute respiratory distress, now off BiPAP, improving. 2.Metabolic acidosis. Bicarb. 3.Elevated troponin level, likely secondary to above. 4.End-stage renal disease, on hemodialysis. The patient was dialyzed yesterday and received 2 units of PRBCs. 5.Essential hypertension, stable. 6.Diabetes mellitus type 2, insulin requiring with hyperglycemia. We will continue sliding scale. 7.Hyperlipidemia, mixed. Continue statin. 8.Parkinson disease. 9.Dementia, early onset without behavioral disturbance. 10.Gastroesophageal reflux disease without esophagitis. Continue PPI. 11.Restless legs syndrome. 12.Chronic obstructive pulmonary disease and chronic bronchitis. We will continue breathing treatme nts. 13.Major depressive disorder. 14.Generalized anxiety disorder. Continue Xanax. 15.Insomnia. 16.Normal-pressure hydrocephalus. 17.Coronary artery disease, [place] artery and [place] heart without angina. 18.Gastrointestinal and deep venous thrombosis prophylaxis with PPI and Lovenox. 19.Severe anemia, status post 2 units PRBCs with dialysis. Hemoglobin improved. The patient has hi story of arteriovenous malformation, has had extensive gastrointestinal workup in the recent past. W e will continue to monitor hemoglobin and hematocrit, transfuse as needed. /BG Voice ID: [id number] Report ID: [id number]
--- NOTE | 2018-02-10 17:10 | PN ---
Date of Progress Note: 02/10/2018 Subjective: The patient is doing well at this time. Denies any complaints. Overnight, no acute yazmin nts were noted. Objective: Vital signs: Have been reviewed and are stable. General: He appears in no acute distress. HEENT: Atraumatic head. Lungs: Clear to auscultation. Abdomen: Soft. Extremities: With no evidence of edema. Laboratory Data: Showing hemoglobin of 8.5, hematocrit 26.1. Impression: 1.Acute anemia secondary to possibly from gastrointestinal bleed. The patient has history of arteri ovenous malformations and small bowel bleed. The patient had transfusion. Hemoglobin seems to be st able. 2.Endstage renal disease, on dialysis. The patient had dialysis yesterday. We will plan for next d ialysis on Sunday. No other acute volume issues noted. 3.History of schizophrenia with behavioral disturbances. Resume all his home medications. Plan: The patient is overall doing okay at this time. Hemoglobin has remained stable. No other acu te bleed is noted. Continue to monitor him and he can be discharged from Nephrology standpoint with followup at the dialysis unit on Sunday. Continue all other medications and resume all other home m edications. BARTOLOME/BG Voice ID: [id number] Report ID: [id number]
[2018-02-10] MEDS ORDERED: HOME MED 1 EA UNK (Ranolazine [Ranexa] 500 MG) PO SCH (21:00)
[2018-02-10] MEDS ORDERED: ZIPRASIDONE 40 MG CAP PO SCH (21:00)
[2018-02-10] MEDS ORDERED: HOME MED 1 EA UNK (Venlafaxine Hcl [Venlafaxine Hcl Er] 150 MG) PO SCH (21:00)
[2018-02-10] MEDS ORDERED: HOME MED 1 EA UNK (Donepezil Hcl [Aricept] 10 MG) PO SCH (21:00)
[2018-02-10] MEDS: CARVEDILOL 25 MG TAB PO SCH (21:23)
[2018-02-10] MEDS: DONEPEZIL HCL 5 MG TAB PO SCH (21:24)
[2018-02-10] MEDS: ATORVASTATIN 10 MG TAB PO SCH (21:24)
[2018-02-10] MEDS: VENLAFAXINE HCL XR 75 MG CAP PO SCH (21:24)
[2018-02-10] MEDS: LOSARTAN POTASSIUM 50 MG TABLET PO SCH (21:25)
[2018-02-10] MEDS: PRAMIPEXOLE 0.25 MG TAB PO SCH (21:25)
[2018-02-10] MEDS: DOXAZOSIN 4 MG TAB PO SCH (21:25)
[2018-02-10] MEDS: ZIPRASIDONE 20 MG CAP PO SCH (21:25)
[2018-02-10] MEDS: ALPRAZOLAM 0.5 MG TABLET PO SCH (23:44)
[2018-02-11] MEDS: FUROSEMIDE 40 MG TABLET PO SCH ×2 (05:00→17:42)
[2018-02-11 05:51] LABS: Absolute Lymphocytes (CBC) 0.8 K/uL (0.7-4.9); Absolute Neutrophil 6.4 K/uL (1.8-8.0); Basophils % 0.7 % (0-1.3); Eosinophils % 2.6 % (0-4.4); Hematocrit 23.9 % (39.6-49.0); Lymphocytes % 9.6 % (15.3-44.8); MCH 27.3 pg (27.0-35.0); MPV 8.1 fL (7.6-11.3); Monocytes % 12.2 % (3.3-12.3); RBC Red Blood Cell Count 2.87 M/uL (4.33-5.43)
[2018-02-11 06:16] LABS: Albumin 2.4 g/dL (3.2-5.5); Bilirubin Total 0.5 mg/dL (0.3-1.2); Potassium 3.8 mEq/L (3.6-5.0); Protein, Total 5.8 g/dL (6.0-8.3)
[2018-02-11] MEDS: INSULIN -REGULAR HUMAN 50 UNIT/0.5 ML ML SQ SCH ×4 (07:30→21:00)
[2018-02-11] MEDS: CLONIDINE HCL 0.3 MG TAB PO SCH ×3 (09:00→20:53)
[2018-02-11] MEDS ORDERED: CALCITRIOL PO SCH (09:00)
[2018-02-11] MEDS: NPH (HUMAN) 100 UNITS/ML INSULIN SQ SCH ×2 (09:00→21:00)
[2018-02-11] MEDS: NIFEDIPINE XL 90 MG TABLET PO SCH ×2 (09:00→20:55)
[2018-02-11] MEDS: ENOXAPARIN 30 MG/0.3 ML SQ SCH (09:28)
[2018-02-11] MEDS: PANTOPRAZOLE 40 MG INJ IVP SCH ×2 (09:29→20:58)
[2018-02-11] MEDS: CALCITROL 0.25 MCG CAP PO SCH (09:30)
[2018-02-11] MEDS: DOXAZOSIN 4 MG TAB PO SCH ×2 (09:30→20:54)
[2018-02-11] MEDS: GABAPENTIN 100 MG CAP PO SCH ×2 (09:31→20:53)
[2018-02-11] MEDS: FOLIC ACID 1 MG TABLET PO SCH (09:31)
[2018-02-11] MEDS: VENLAFAXINE HCL XR 75 MG CAP PO SCH ×2 (09:31→20:52)
[2018-02-11] MEDS: ZIPRASIDONE 20 MG CAP PO SCH ×2 (09:32→20:53)
[2018-02-11] MEDS: CARVEDILOL 25 MG TAB PO SCH (09:32)
[2018-02-11] MEDS: LOSARTAN POTASSIUM 50 MG TABLET PO SCH ×2 (09:34→20:54)
--- NOTE | 2018-02-11 12:26 | P.PN ---
Subjective Date of Service: 02/11/18 Chief Complaint: anemia Mr Martinez feels much better today, he was still on clear liquids diet and tolerating it well. No fever. Physical Examination - Vital Signs Temperature: 97.2 F Blood Pressure: 132/71 Pulse: 53 Respirations: 16 Pulse Ox (%): 96 - Physical Exam General: Alert, In no apparent distress HEENT: Atraumatic, PERRLA, EOMI Neck: Supple, JVD not distended Respiratory: Diminished, Crackles/rales (bibasilar rales) Cardiovascular: Regular rate/rhythm, Normal S1 S2 Gastrointestinal: Normal bowel sounds, No tenderness Musculoskeletal: No tenderness Integumentary: No rashes Neurological: Normal speech, Normal tone, Normal affect - Studies Medications List Reviewed: Yes Assessment And Plan - Current Problems (Diagnosis) (1) History of upper gastrointestinal bleeding Current Visit: Yes Status: Acute (2) Troponin level elevated Current Visit: No Status: Acute (3) Anemia Onset Date: 12/24/17 Current Visit: No Status: Chronic Qualifiers: Anemia type: other cause Other causes of anemia: chronic disease, other Qualified Code(s): D63.8 - Anemia in other chronic diseases classified elsewhere (4) Hypertension Onset Date: 12/24/17 Current Visit: No Status: Chronic Qualifiers: Hypertension type: essential hypertension Qualified Code(s): I10 - Essential (primary) hypertension - Plan #1 Anemia: Hgb is decreasing, today is 7.9 mg.dl, no needs for transfusion at this time. Etiology is lieky a combination between CKD and GI bleeding from AVM. Continue close monitoring of HH. #2 ESRD: continue HD #3 bradycardia: likely due to Carvedilol. Will decrease dose to 12.5 mg BID. #4 DM II: continue SSI Plan: will continue monitoring for 24 more hours, he may go home tomorrow if continue improving.
--- NOTE | 2018-02-11 12:38 | P.CNS ---
Date of Consult: 02/11/18 Chief Complaint: COPD History of Present Illness: Patient is 57 years of age on dialysis was found to be anemic and was admitted from the emergency room and patient was transfused 2 units of packed red blood cells he does have a history of COPD uses albuterol nebulizer at home is not on any oxygen is clinically doing well Allergies No Known Drug Allergies Allergy (Verified 02/09/18 01:19) Unknown No Known Allergies Allergy (Uncoded 02/09/18 01:19) Unknown Home Medications: Albuterol Inhaler [Ventolin Inhaler] 2 puff IH QID 02/09/18 Alprazolam [Xanax] 0.5 mg PO BEDTIME 02/09/18 Alprazolam [Xanax] 1 mg PO T,,S 02/09/18 Clonidine HCl [Catapres] 0.3 mg PO TID 02/09/18 Fentanyl 25 mcg TD Q72H 02/09/18 Furosemide 40 mg PO BID 02/09/18 Gabapentin [Neurontin] 100 mg PO BID 02/09/18 Hydrocodone Bit/Acetaminophen [Hydrocodon-Acetaminoph 7.5-325] 1 each PO Q6HP PRN 02/09/18 Insulin NPH Human [Novolin N (Humulin N)*] 7 units SQ BID 02/09/18 Ipratropium/Albuterol Sulfate [Iprat-Albut 0.5-3(2.5) mg/3 ml] 3 ml IH Q6HP PRN 02/09/18 Nifedipine [Nifedipine ER] 90 mg PO Q12H 02/09/18 Nitroglycerin 0.4 mg SL Q5MX3 PRN 02/09/18 Vit D3/Folic Acid/B2/B6/B12 [Folgard Tablet] 1 each PO DAILY 02/09/18 Atorvastatin Calcium [Lipitor*] 1 tab PO BEDTIME 02/10/18 Calcitriol [Rocaltrol] 1 cap PO DAILY 02/10/18 Carvedilol [Coreg] 25 mg PO BID 02/10/18 Donepezil HCl [Aricept] 10 mg PO BEDTIME 02/10/18 Doxazosin Mesylate 4 mg PO Q12HR 02/10/18 Folic Acid 1 mg PO DAILY 02/10/18 Losartan Potassium [Cozaar] 50 mg PO BID 02/10/18 Ondansetron HCl 4 mg PO Q6HR PRN 02/10/18 Pramipexole Di-HCl [Pramipexole Dihydrochloride] 1 tab PO BEDTIME 02/10/18 Ranolazine [Ranexa] 500 mg PO BID 02/10/18 Venlafaxine HCl [Venlafaxine HCl ER] 150 mg PO BID 02/10/18 Ziprasidone HCl [Geodon*] 40 mg PO BID 02/10/18 - Past Medical/Surgical History Diabetic: Yes -: DM-Type 2 -: HTN -: Hyperlipidemia -: Dementia, Parkinsons disease -: GERD -: ESRD, Nephrology-Dr. Leavitt, Dialysis-,,Sun -: Restless leg syndrome -: COPD -: Depression, insomnia -: Anemia of chronic disease -: Normal-pressure hydrocephalus -: CAD, PUD -: Cardiac stents. -: Numerous back surgeries -: Congestive heart failure Psychosocial/ Personal History: He has a girlfriend. He has one daughter. He currently lives at the residential - Family History Mother Medical History: Heart disease, Hypertension Father Medical History: Heart disease - Social History Smoking Status: Unknown if ever smoked Alcohol use: No CD- Drugs: No Caffeine use: Yes Place of Residence: Home Review of Systems 10-point ROS is otherwise unremarkable General: Weakness Respiratory: Shortness of Breath Physical Examination Temp Pulse Resp BP Pulse Ox 97.2 F 53 16 132/71 96 02/11/18 12:26 02/11/18 12:26 02/11/18 12:26 02/11/18 12:26 02/11/18 12:26 General: Alert, Oriented x3 Neck: Supple Respiratory: Diminished, Expiratory wheezes Cardiovascular: No edema, Regular rate/rhythm, Normal S1 S2 - Problems (1) COPD (chronic obstructive pulmonary disease) Current Visit: Yes Status: Acute Plan: Patient is 57 years of age admitted with anemia transfused 2 units of packed red blood cells has a history of COPD former smoker patient has hypoxic hypercapnic respiratory failure which I presume is chronic high risk for obstructive sleep apnea and may need an outpatient sleep study in the meantime consider using a long-acting nebulizer per 1 are performance twice a day in the residential with albuterol/ipratropium q. 6 p.r.n. basis saturation is 95% on room air he has anemia possible GI bleed. Patient has a history of a Liane AV malformations clinically stable
[2018-02-11] MEDS: ARFORMOTEROL TARTRATE 15 MCG/2 ML VIAL.NEB NEB SCH ×2 (13:58→20:01)
[2018-02-11] MEDS ORDERED: DOXAZOSIN 2 MG TAB ONE (19:58)
[2018-02-11] MEDS: PRAMIPEXOLE 0.25 MG TAB PO SCH (20:52)
[2018-02-11] MEDS: ATORVASTATIN 10 MG TAB PO SCH (20:52)
[2018-02-11] MEDS: DONEPEZIL HCL 5 MG TAB PO SCH (20:53)
[2018-02-11] MEDS: CARVEDILOL 12.5 MG TAB PO SCH (20:56)
[2018-02-11] MEDS: ALPRAZOLAM 0.5 MG TABLET PO SCH (21:00)
[2018-02-12] MEDS: FUROSEMIDE 40 MG TABLET PO SCH ×2 (05:17→17:59)
[2018-02-12 05:42] LABS: Absolute Lymphocytes (CBC) 0.9 K/uL (0.7-4.9); Absolute Monocytes 0.9 K/uL (0.1-1.3); Absolute Neutrophil 5.7 K/uL (1.8-8.0); Basophils % 0.6 % (0-1.3); Eosinophils % 2.9 % (0-4.4); Hematocrit 23.4 % (39.6-49.0); Lymphocytes % 11.3 % (15.3-44.8); MCH 27.8 pg (27.0-35.0); MCV 82.8 fL (80-100); MPV 8.6 fL (7.6-11.3); Monocytes % 11.7 % (3.3-12.3); RBC Red Blood Cell Count 2.83 M/uL (4.33-5.43)
[2018-02-12 06:22] LABS: Albumin 2.8 g/dL (3.2-5.5); Bilirubin Total 0.4 mg/dL (0.3-1.2); Potassium 3.8 mEq/L (3.6-5.0); Protein, Total 5.5 g/dL (6.0-8.3)
[2018-02-12] MEDS: INSULIN -REGULAR HUMAN 50 UNIT/0.5 ML ML SQ SCH ×3 (07:30→16:02)
[2018-02-12] MEDS: ARFORMOTEROL TARTRATE 15 MCG/2 ML VIAL.NEB NEB SCH (07:37)
[2018-02-12 07:47] VITALS: O2SAT 96
[2018-02-12] MEDS ORDERED: NA CHLORIDE 0.9% 250 ML IV SCH (08:00)
[2018-02-12] MEDS: DOXAZOSIN 4 MG TAB PO SCH (08:46)
[2018-02-12] MEDS: LOSARTAN POTASSIUM 50 MG TABLET PO SCH (08:47)
[2018-02-12] MEDS: NIFEDIPINE XL 90 MG TABLET PO SCH (08:48)
[2018-02-12] MEDS: CLONIDINE HCL 0.3 MG TAB PO SCH ×2 (09:00→13:31)
[2018-02-12] MEDS: NPH (HUMAN) 100 UNITS/ML INSULIN SQ SCH (09:00)
[2018-02-12] MEDS: CARVEDILOL 12.5 MG TAB PO SCH (09:00)
[2018-02-12] MEDS: FENTANYL 25 MCG/PATCH TD SCH (09:00)
[2018-02-12] MEDS: ZIPRASIDONE 20 MG CAP PO SCH (09:00)
[2018-02-12] MEDS: CALCITROL 0.25 MCG CAP PO SCH (09:58)
[2018-02-12] MEDS: FOLIC ACID 1 MG TABLET PO SCH (09:58)
[2018-02-12] MEDS: GABAPENTIN 100 MG CAP PO SCH (09:58)
[2018-02-12] MEDS: ENOXAPARIN 30 MG/0.3 ML SQ SCH (10:01)
[2018-02-12] MEDS: VENLAFAXINE HCL XR 75 MG CAP PO SCH (10:01)
[2018-02-12] MEDS: PANTOPRAZOLE 40 MG INJ IVP SCH (10:02)
[2018-02-12 10:59] LABS: HBsAG Nonreactive (Nonreactive)
[2018-02-12] MEDS: EPOETIN ALFA 10,000 UNIT/ML VIAL IV SCH (15:59)
--- NOTE | 2018-02-12 16:46 | P.DS ---
Admission Date: 02/09/18 Discharge Date: 02/12/18 Disposition: ROUTINE DISCHARGE Discharge Condition: GOOD Reason for Admission: COPD - Problems (1) History of upper gastrointestinal bleeding Current Visit: Yes Status: Acute (2) Troponin level elevated Current Visit: No Status: Acute (3) Anemia Onset Date: 12/24/17 Current Visit: No Status: Chronic Qualifiers: Anemia type: other cause Other causes of anemia: chronic disease, other Qualified Code(s): D63.8 - Anemia in other chronic diseases classified elsewhere (4) Hypertension Onset Date: 12/24/17 Current Visit: No Status: Chronic Qualifiers: Hypertension type: essential hypertension Qualified Code(s): I10 - Essential (primary) hypertension Brief History of Present Illness: Mr Martinez is a 57 years old male with multiple medical problems including DM II, HTN, ESRD on HD, chronic pain syndrome who had HD yesterday and also had a lab work done. Today, he was called with the results. His Hgb was 6.3 mg/dl (drop from 8.1 mg/dl 1 week ago), HD nurse advised to come to ED for evaluation. The patient denied any black or bloody stools. He has history of GIB, EGD done last admission was remarkable for esophageal ulcer healed, esophagitis and gastritis. His only complains is chronic back pain. He denied news symptoms. En ER he received [place] and after that his speech become slurred, but no neurologic deficit noted. He denied chest pain or SOB. Hospital Course: Mr Martinez was admitted to the hospital due to anemia. Since the patient has history of previous GIB due to AVM he was placed in order to ruled out possible acute GIB. Initial Hgb was 6.2 mg/dl. He has received a total of 3 PRBC's transfusion. During his stay, did not show obvious signs of active bleeding. He was followed up by neprology team who took care or HD. Today, Mr Martinez will be discharged home in stable condition. F/U with PCP within a week. Vital Signs/Physical Exam: Temp Pulse Resp BP Pulse Ox 96.8 F 57 17 122/65 95 02/12/18 12:00 02/12/18 12:00 02/12/18 12:00 02/12/18 12:00 02/12/18 12:00 General: Alert, In no apparent distress HEENT: Atraumatic, PERRLA, EOMI Neck: Supple, JVD not distended Respiratory: Clear to auscultation bilaterally, Normal air movement Cardiovascular: Normal S1 S2, No gallops Gastrointestinal: Normal bowel sounds, No tenderness Neurological: Normal speech, Normal tone, Normal affect Laboratory Data at Discharge: WBC 7.7 K/uL (4.3-10.9) 02/12/18 04:21 Hgb 7.9 g/dL (13.6-17.9) L* 02/12/18 04:21 Hct 23.4 % (39.6-49.0) L 02/12/18 04:21 Plt Count 148 K/uL (152-406) L 02/12/18 04:21 PT 12.3 SECONDS (9.5-12.5) 02/08/18 19:40 INR 1.04 02/08/18 19:40 APTT 34.2 SECONDS (24.3-36.9) 02/08/18 19:40 Sodium 134 mEq/L (135-145) L 02/12/18 04:21 Potassium 3.8 mEq/L (3.6-5.0) 02/12/18 04:21 BUN 56 mg/dL (6-20) H 02/12/18 04:21 Creatinine 5.12 mg/dL (0.61-1.24) H* 02/12/18 04:21 Glucose 76 mg/dL (65-120) 02/12/18 04:21 Magnesium 2.3 mg/dL (1.8-2.5) 02/08/18 19:40 Total Bilirubin 0.4 mg/dL (0.3-1.2) 02/12/18 04:21 AST 14 IU/L (10-42) 02/12/18 04:21 ALT 16 IU/L (10-60) 02/12/18 04:21 Alkaline Phosphatase 69 IU/L (42-121) 02/12/18 04:21 B-Natriuretic Peptide 925 pg/ml (<=100) H 02/08/18 19:40 Home Medications: Albuterol Inhaler [Ventolin Inhaler*] 2 puff IH QID 02/09/18 Alprazolam [Xanax] 0.5 mg PO BEDTIME 02/09/18 Alprazolam [Xanax] 1 mg PO T,TH,S 02/09/18 Clonidine HCl [Catapres*] 0.3 mg PO TID 02/09/18 Fentanyl 25 mcg TD Q72H 02/09/18 Furosemide 40 mg PO BID 02/09/18 Gabapentin [Neurontin*] 100 mg PO BID 02/09/18 Hydrocodone Bit/Acetaminophen [Hydrocodon-Acetaminoph 7.5-325] 1 each PO Q6HP PRN 02/09/18 Insulin NPH Human [Novolin N (Humulin N)*] 7 units SQ BID 02/09/18 Ipratropium/Albuterol Sulfate [Iprat-Albut 0.5-3(2.5) mg/3 ml] 3 ml IH Q6HP PRN 02/09/18 Nifedipine [Nifedipine ER] 90 mg PO Q12H 02/09/18 Nitroglycerin 0.4 mg SL Q5MX3 PRN 02/09/18 Vit D3/Folic Acid/B2/B6/B12 [Folgard Tablet] 1 each PO DAILY 02/09/18 Atorvastatin Calcium [Lipitor*] 1 tab PO BEDTIME 02/10/18 Calcitriol [Rocaltrol] 1 cap PO DAILY 02/10/18 Carvedilol [Coreg*] 25 mg PO BID 02/10/18 Donepezil HCl [Aricept] 10 mg PO BEDTIME 02/10/18 Doxazosin Mesylate 4 mg PO Q12HR 02/10/18 Folic Acid 1 mg PO DAILY 02/10/18 Losartan Potassium [Cozaar*] 50 mg PO BID 02/10/18 Ondansetron HCl 4 mg PO Q6HR PRN 02/10/18 Pramipexole Di-HCl [Pramipexole Dihydrochloride] 1 tab PO BEDTIME 02/10/18 Ranolazine [Ranexa] 500 mg PO BID 02/10/18 Venlafaxine HCl [Venlafaxine HCl ER] 150 mg PO BID 02/10/18 Ziprasidone HCl [Geodon*] 40 mg PO BID 02/10/18 Diet: Renal Activity: Fall precautions Time spent managing pt's care (in minutes): 40
[2018-02-12 17:50] VITALS: TEMP 96.4
[2018-02-12 17:59] VITALS: BP 144/83
--- NOTE | 2018-02-12 22:19 | P.PN ---
Date of Service: 02/11/18 Vital Signs Temp Pulse Resp BP Pulse Ox 96.4 F L 70 17 144/83 H 98 02/12/18 16:00 02/12/18 17:59 02/12/18 16:00 02/12/18 17:59 02/12/18 16:00 Lab Results (last 24 hrs) 02/09/18 13:34: Hep Bs Antigen Nonreactive, Hep Bs Ag Confirmation Report, Hep Bs Antibody Reactive H, Hep Bs Antibody, Quant 346, Hep B Core Total Ab Nonreactive, Hep B Core IgM Ab Not indicated Assessment/ Plan: Nephrology. Doing well. CPS stable without CP or SOB. No acute events overnight. Vitals, medications, blood work and imaging reviewed in the chart. NAD. MMM. Neck supple. CTA. RRR. Soft Abd. No C/C/E. No rash. AAO. Normal speech. A/ ESRD on HD. HTN with CKD. DM II with CKD. Anemia in CKD. Diastolic CHF, chronic. JACOB/ Secondary HyperPTH. P/ Continue current POC and Medications. Anti-hypertensives adjusted. Transfuse PRBC as needed. Next HD tomorrow. AM labs. Daily weight. Avoid blood thinners.
--- NOTE | 2018-02-12 22:21 | P.PN ---
Date of Service: 02/12/18 Vital Signs Temp Pulse Resp BP Pulse Ox 96.4 F L 70 17 144/83 H 98 02/12/18 16:00 02/12/18 17:59 02/12/18 16:00 02/12/18 17:59 02/12/18 16:00 Lab Results (last 24 hrs) 02/09/18 13:34: Hep Bs Antigen Nonreactive, Hep Bs Ag Confirmation Report, Hep Bs Antibody Reactive H, Hep Bs Antibody, Quant 346, Hep B Core Total Ab Nonreactive, Hep B Core IgM Ab Not indicated Assessment/ Plan: Nephrology. Doing well. CPS stable without CP or SOB. No acute events overnight. Vitals, medications, blood work and imaging reviewed in the chart. NAD. MMM. Neck supple. CTA. RRR. Soft Abd. No C/C/E. No rash. AAO. Normal speech. A/ ESRD on HD. HTN with CKD. DM II with CKD. Anemia in CKD. Diastolic CHF, chronic. JACOB/ Secondary HyperPTH. P/ Continue current POC and Medications. Anti-hypertensives adjusted. Transfuse PRBC as needed. HD today as ordered. AM labs. Daily weight. Avoid blood thinners.
--- NOTE | 2018-03-15 14:25 | CON ---
Date of Consultation: 02/12/2018 Identification: A 57-year-old male, 224, Dr. Fairbanks. Reason For Consultation: Anemia, GI bleeding. History Of Present Illness: Mr. Martinez is a 57-year-old gentleman, who has past medical history of GI bleeding, anemia as result of GI bleeding, and also chronic renal disease. He suffers from multiple other comorbidities. The patient got admitted again with history of anemia. However denies any ofe k tarry stool, bright red blood, or any other form of active bleeding. He states that he is no more fatigued or weaker than normal. Normally he is "wiped out" after the dialysis. Denies any abdominal pain. Denies any shortness of breath, or cough. He is having regular hemodialysis. He suffers from end-stage renal disease for a long time along with COPD and has some baseline shortne ss of breath; however, he personally denies it, that is, he personally denies shortness of breath. H e has history of coronary artery disease and congestive heart failure. The patient has been a long-s tanding diabetic and hypertension along with peripheral vascular disease. Past Medical History: As elaborated above. On recent EGD, AVM was noted. Past Surgical History: Peritoneal dialysis and some other form of vascular intervention that is not clear to me. Family History: Denies any gastrointestinal malignancy. Social History: No active use of alcohol or tobacco in last 2 years. Allergies: REVIEWED IN THE CHART. Medications: Reviewed in the chart. Review of Systems: General: He denies any fever chills. No weight loss, weight gain in the recent months. GI: As elaborated above. Hepatologic: Denies any history of jaundice, hepatitis, any other liver disease, or any chronic prur itus. Pulmonary: No shortness of breath than usual. No orthopnea or dyspnea. No cough, no expectoration. Cardiac: Occasional palpitation. No orthopnea or dyspnea at this time. Genitourinary: No active complaint. Minimum urinary output. Dermatologic: No pruritus. No new lesion. Musculoskeletal: Generalized weakness. Neuropsychiatric: Other than above none. Neuroendocrine: None. Physical Examination: General: He appears to be older than stated age. Hemodynamic respiratory profile within normal rang e. HEENT: Atraumatic, normocephalic. Positive pallor. No icterus, but some bitemporal wasting. Neck: Supple. No lymphadenopathy. Trachea central in position. Chest: Clear to auscultation and percussion. Cardiovascular: S1, S2 is accentuated. Abdomen: Soft, nontender, nondistended. Excellent bowel sounds. No hepatomegaly. No splenomegaly. No ascites. No succussion splash. Neurologic: Alert and oriented x3. Intact memory, mentation, and judgment. No asterixis. No flapp ing tremor. Extremities: Upper and lower extremities are normal and symmetrical. Muscle mass is somewhat reduce d. Dermatologic: multiple bruises, other than that, no new lesions. Diagnostic Data: Reviewed and analyzed. Last hemoglobin and hematocrit 7.9 and 23 respectively. BU N and creatinine are elevated, consistent with end-stage renal disease. Impression, Plan, And Recommendation: Mr. Martinez is a 57-year-old gentleman with chronic anemia. At this time, no direct hematemesis, melena, or hematochezia. Has multiple other comorbidities includin g diabetes, hypertension, peripheral vascular disease, end-stage liver disease, chronic obstructive p ulmonary disease, bipolar disorder as elaborated above. At this time, from GI viewpoint, he is stabl e, not showing any evidence of active or passive bleeding; however, chronic bleeding cannot be ruled out, although it is not be compensating him at this time. Given this, keep him on chronic PPI, follow hemoglobin and hematocrit. If stable after transfusion, he can also go home to do rest of the workup as an outpatient since otherwise he is stable. I have discussed with the patient regarding the indications, contraindications, possible complication s, alternatives of upper and lower GI endoscopy including, but not limited to the possibility of blee ding, perforation, infection, sepsis, need for surgery, need for blood transfusion, and anesthesia re lated problem. His ASA classification will be 3. VILMA/BG Voice ID: [id number] Report ID: [id number]
--- NOTE | 2018-03-21 14:29 | CON ---
Date of Consultation: 02/09/2018 A 57-year-old male, Dr. Bahc. Reason For Consultation: Anemia History Of Present Illness: Mr. Martinez is a 57-year-old gentleman, who has multiple medical problems. Does not give any history. Therefore, most of the history has been from the chart review and upon talking and interviewing the nurses. Apparently, I have been consulted for anemia with hemoglobin of around 6 and hematocrit of 19. The patient has multiple medical problems including end-stage renal disease, COPD, dementia, coronary artery disease, hypertension, and diabetes mellitus. He presented with shortness of breath and other mental status changes. Also showed renal failure. He was hypoxic and got admitted through the ER. At this time, patient does not admit or deny any abdominal pain or admit or any nausea, vomiting, or any other GI issues. Past Medical History: Other than above, unknown. Past Surgical History: Unknown. Family History: Unknown. Social History: Unknown. Psychiatric History: Other than dementia, unknown. Allergies: REVIEWED IN THE CHART Medications: Reviewed in the chart. Of importance, the patient is a very long list of medications i ncluding psychoactive medication, antihypertensive medication, COPD, diabetic medication, and Neuront in among others. However, list is very exhaustive and has been reviewed. Review of Systems: Impossible to obtain due to the patient's condition even although he is on a mask and apparently tach ypneic, he denies any shortness of breath. He does not answer to a reliable degree to all other ques tions. Physical Examination: General: He appears older than stated age. Vital signs: Apparently blood pressure is okay. Pulse rate is tachycardiac and he is tachypneic. HEENT: Bearded. Poor dental hygiene. Poor oral hygiene. Some temporal wasting. No apparent evide nce of trauma. Neck: Supple. Trachea central in position. Chest: Air exchange is limited bilaterally, also bilateral crackle. Cardiac: S1, S2 is accentuated, however, no S3 or no S4. Abdomen: Soft, nontender, nondistended, although he does not cooperate. I am unable to palpate any hepatomegaly, splenomegaly, or any other issue. Neurologic: He is awake; however, alertness, orientation cannot be judged given above; however, he i s spontaneously moving his extremities. Musculoskeletal: Bilateral lower extremity wasting as well as upper extremity wasting. No further examination could be done. Diagnostic Data: Reviewed and analyzed. Hemoglobin and hematocrit as elaborated above. BUN and cre atinine are elevated. Blood sugar is 76. Impression, Plan, And Recommendation: 1.Mr. Martinez is a 57-year-old gentleman with severe anemia. I do not see any evidence of any ongoing acute gastrointestinal bleeding. Per nurses, they have not seen any bright red blood or dark tarry stool. Given above, we will continue to follow him. 2.He is quite hypoxic and is on mask. Certain respiratory condition has to be considered and this i s outside the domain of my caregiving; however, it has been addressed. 3.Pneumonia, which could be partly responsible for above, is being addressed. 4.He has multiple other medical problems and at this time from respiratory viewpoint, he is unstable to do anything else. 5.Also his mental status has to be considered. At this point, the patient is also unable to give an y history and he does not appear to have any insight into his own history let alone for any procedure . Therefore, I will wait until his condition improves. If his condition improves enough that he eloy l be stable for endoscopy, please give me a call; otherwise I will sign him off for now. Of importance, on CT scan, there is no acute process to be addressed. VILMA/BG Voice ID: [id number] Report ID: [id number]
== END 2018-02-12 19:27 | DRG 682 ==
LOC: ER 18:44 → ERHOLD 21:33 → 2ND 23:02 → OBSVTOIN 02-09 15:28
PROVIDERS: ADMIT Internal Medicine; ATTEND Internal Medicine
PROC: 30233N1 Transfusion of Nonautologous Red Blood Cells into Peripheral Vein, Percutaneous Approach (ICD-10-PCS; principal; 2018-02-09)
PROC: 30233N1 Transfusion of Nonautologous Red Blood Cells into Peripheral Vein, Percutaneous Approach (ICD-10-PCS; 2018-02-12)
DX: N18.6 End stage renal disease (principal); J96.02 Acute respiratory failure with hypercapnia; E87.2 Acidosis; Q27.30 Arteriovenous malformation, site unspecified; D63.8 Anemia in other chronic diseases classified elsewhere; I12.0 Hypertensive chronic kidney disease with stage 5 chronic kidney disease or end stage renal disease; E11.22 Type 2 diabetes mellitus with diabetic chronic kidney disease; Z99.2 Dependence on renal dialysis; E11.65 Type 2 diabetes mellitus with hyperglycemia; E78.5 Hyperlipidemia, unspecified; G20 Parkinson's disease; F02.80 Dementia in other diseases classified elsewhere, unspecified severity, without behavioral disturbance, psychotic disturbance, mood disturbance, and anxiety; K21.9 Gastro-esophageal reflux disease without esophagitis; G25.81 Restless legs syndrome; J44.9 Chronic obstructive pulmonary disease, unspecified; F32.9 Major depressive disorder, single episode, unspecified; F41.1 Generalized anxiety disorder; I25.10 Atherosclerotic heart disease of native coronary artery without angina pectoris; G89.4 Chronic pain syndrome; R79.89 Other specified abnormal findings of blood chemistry
CPT/HCPCS: 36415; 71045; 74018; 80048; 80053; 80076; 82550; 82553; 82805; 82962; 83735; 83880; 84484; 85014; 85018; 85025; 85610; 85730; 86317; 86704; 86706; 86850; 86900; 86901; 87340; 90935; 93005; 94640; 94660; 94760; 99285; C9113; J0360; J1650; J2405; J7605; P9016; Q4081

== ENCOUNTER 2018-02-13 21:51 | Observation (INO) | payer MEDICAID ==
--- OUTSIDE RECORDS SUMMARY | 2018-02-13 21:53 | XMS REPORT | Clinical Summary ---
:1960 Author Organization [facility] Address [address] [place] [address] Phone Care Team Providers Name Role Phone [...] Apply 1 application 0 12/21/2016 Active (VENELEX) 13-993 topically 2 (two) mg/gram Oint times daily [...] for Wheezing for up to 360 days. 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 Paraplegic spinal paralysis ([facility]) 12/26/2016 Sacral decubitus ulcer 12/26/2016 ESRD on hemodialysis ([facility]) 12/26/2016 Acute bilateral low back pain without sciatica 11/30/2016 Back pain 11/29/2016 Complications, dialysis, catheter, mechanical ([facility]) 04/06/2016 Angina effort ([facility]) 09/04/2014 CAD (coronary artery disease) 09/04/2014 Social History Tobacco Use Types Packs/Day Years Used Date Former Smoker 0 Alcohol Use Drinks/Week oz/Week Comments No Sex Assigned at Date Recorded Not on file Last Filed Vital Signs Not on file Plan of Treatment Not on file Implants Implanted Type Area Shoe Clerk Device Expiration Model / Identifier Date Serial / Lot Infusion Set Bone Infuseii Lg [id number] - [id number] Bone N/A: MEDTRONIC: SPINAL 08/22/2018 [id number] / Implanted: Qty: 1 on 12/12/2016 by Eduardo Ruggiero MD Spine BIOLOGICS / Lumbar [id number] Matrix Floseal Hemo W/O Ndl 10 [id number] - [id number] Cement/Fi N/A: MA: BIOSCI 04/20/2019 [id number] / Implanted: Qty: 2 on 12/12/2016 by Eduardo Ruggiero MD ller/Terrance Spine / sive Lumbar [id number] Bone Putty Stimulan [facility] 620-010 - [id number] Cement/Fi N/A: BIOCOMPOSITES 08/21/2019 [id number] / Implanted: Qty: 1 on 12/12/2016 by Eduardo Ruggiero MD ller/Terrance Spine / sive Lumbar 08/06-R300/301 Connector Set Screw Joints N/A: MEDTRONIC [id number] / Implanted: Qty: 1 on 12/12/2016 by Eduardo Ruggiero MD Spine / Lumbar Scr Mas 8.5x90 [id number] - [id number] Spine N/A: MEDTRONIC:SPINE: [id number] / Implanted: Qty: 1 on 12/12/2016 by Eduardo Ruggiero MD Spine SOFAMOR DANEK / Lumbar [id number] Ballast Mas 8.5x80 Spine N/A: MEDTRONIC [id number] / Implanted: Qty: 1 on 12/12/2016 by Eduardo Ruggiero MD Spine / Lumbar [id number] Taco [id number] Spine N/A: MEDTRONIC [id number] / Implanted: Qty: 2 on 12/12/2016 by Eduardo Ruggiero MD Spine / Lumbar [id number] Connector 20mm Spine N/A: MED[employer]IC [id number] / Implanted: Qty: 1 on 12/12/2016 by Eduardo Ruggiero MD Spine / Lumbar Medtronic Sofamor Danek 10cc Sprinal Graft Spine N/A: MEDTR[employer]IC 2017 [id number] / Implanted: Qty: 1 on 12/12/2016 by Eduardo Ruggiero MD Spine [id number] / Lumbar Medtronic Sofamor Daek Orthoblend Small 10cc Spine N/A: MED[employer]IC 2017 [id number] / Implanted: Qty: 1 on 12/12/2016 by Eduardo Ruggiero MD Spine [id number] / Lumbar Medtronic Sofarmor Danek Orthoblend Small 10cc Spine N/A: MEDTR[employer]IC [id number] / Implanted: Qty: 1 on 12/12/2016 by Eduardo Ruggiero MD Spine [id number] / Lumbar Screw Set Ti Ns Brk Off 5.5 - [id number] Spine N/A: [employer]IC:SPINAL [id number] / Implanted: Qty: 6 on 12/12/2016 by Eduardo Ruggiero MD Spine BIOLOG[employer] / Lumbar [id number] Screw Mas Cc 7.5x50 [id number] - [id number] Spine N/A: [employer]IC:SPINAL [id number] / Implanted: Qty: 2 on 12/12/2016 by Eduardo Ruggiero MD Spine BIOLOGICS / Lumbar [id number] Screw [facility] Cc 7.5 X 45 [id number] - [id number] Spine N/A: [employer]IC:SPINAL [id number] / Implanted: Qty: 2 on 12/12/2016 by Eduardo Ruggiero MD Spine BIOLOGICS / Lumbar [id number] Results Not on fileafter 02/12/2017
--- OUTSIDE RECORDS SUMMARY | 2018-02-13 21:58 | XMS REPORT ---
:1960 Author Organization [facility] Address [address] [place] [address] [address]. [address] [place] [address] Care Team Providers Name Role Phone Keo [...] Reference Range Comments METHYLMALONIC ACID, SERUM (test xkso=[id number]) 603 nmol/L 0-378 PERFORMED AT: [facility] [id number] ELECTRICIAN TELEPHONE: Donnie Youssef MD PHONE: [phone], [id number] 06:50:00To start 15mins after 1st cultureSpecimen: BloodCollected: 2016 01:33 Status: Final Last Updated: 06/21/2017 06:49 (1) To start 15mins after 1st culture Culture Result (Final) (Final) No Growth After 5 DaysCULTURE, [id number] 06:50:00Specimen: BloodCollected: 06/16/2017 01: 20 Status: Final Last Updated: 06/21/2017 06:49 Culture Result (Final) ( Final) No Growth After 5 [id number] 09:05:00 Test Item Value Reference Range Comments [...] mL/min/1.73m\\S\\2 EGFR if Non- 17 Estimated Glomerular Bangladeshi (test mL/min/1.73m\\S\\2 Filtration Rate (eGFR) code=EGFRNA) Reference [...] of chronic kidney failure. CBC WITH AUTO [id number] 08:50:00 Test Item Value Reference Range Comments [...] code=IG%) 0.7 % 0.0-0.4 CBC WITH AUTO [id number] 01:49:00 Test Item Value Reference Range Comments [...] code=IG%) 0.9 % 0.0-0.4 CBC WITH AUTO [id number] 20:08:00 Test Item Value Reference Range Comments [...] code=IG%) 0.7 % 0.0-0.4 CBC WITH AUTO [id number] 13:58:00 Test Item Value Reference Range Comments [...] 1.0-3.0 IG% (test code=IG%) 0.7 % 0.0-0.4 [id number] 09:14:00 Test Item Value Reference Range Comments [...] mL/min/1.73m\\S\\2 EGFR if Non- 16 Estimated Glomerular Bangladeshi (test mL/min/1.73m\\S\\2 Filtration Rate (eGFR) code=EGFRNA) Reference [...] of chronic kidney failure. CBC WITH AUTO [id number] 09:05:00 Test Item Value Reference Range Comments [...] code=IG%) 0.7 % 0.0-0.4 CBC WITH AUTO [id number] 02:17:00 Test Item Value Reference Range Comments [...] code=IG%) 0.7 % 0.0-0.4 CBC WITH AUTO [id number] 20:02:00 Test Item Value Reference Range Comments [...] code=IG%) 0.8 % 0.0-0.4 CBC WITH AUTO [id number] 14:17:00 Test Item Value Reference Range Comments [...] 1.0-3.0 IG% (test code=IG%) 0.9 % 0.0-0.4 [id number] 08:47:00 Test Item Value Reference Range Comments Magnesium (test code=MG) 1.9 mg/dl 1.6-2.3 [id number] 08:47:00 Test Item Value Reference Range Comments [...] mL/min/1.73m\\S\\2 EGFR if Non- 17 Estimated Glomerular Bangladeshi (test mL/min/1.73m\\S\\2 Filtration Rate (eGFR) code=EGFRNA) Reference [...] of chronic kidney failure. CBC WITH AUTO [id number] 08:22:00 Test Item Value Reference Range Comments [...] code=IG%) 0.8 % 0.0-0.4 CBC WITH AUTO [id number] 03:42:00 Test Item Value Reference Range Comments [...] on ############### was changed to 1 by [id number] on 06/17/2017 03:42 Neutrophils (test 68 % 42-75 The value no value code=NEUTR) originally released by on ############### was changed to 68 by [id number] on 06/17/2017 03:42 Lymphocytes (test 16 % 13-42 The value no value code=LYMPH) originally released by on ############### was changed to 16 by [id number] on 06/17/2017 03:42 Monocytes (test 11 % 4-14 The value no value code=MONOS) originally released by on ############### was changed to 11 by [id number] on 06/17/2017 03:42 Eosinophils (test 3 % 1-3 The value no value code=EOS) originally released by on ############### was changed to 3 by [id number] on 06/17/2017 03:42 Basophils (test 1 % 0-1 The value no value code=BASO) originally released by on ############### was changed to 1 by [id number] on 06/17/2017 03:42 RBC Morphology (test Anisocytosis The value no value code=RBCMOR) Hypochromic originally released by on ############### was changed to Anisocytosis Hypochromic by [id number] on 06/17/2017 03:42 Platelet Morphology Giant platelets The value no value (test code=PLTMORPH) originally released by on ############### was changed to Giant platelets by [id number] on 06/17/2017 03:42 CBC WITH AUTO [id number] 19:54:00 Test Item Value Reference Range Comments [...] code=IG%) 0.8 % 0.0-0.4 CBC WITH AUTO [id number] 14:30:00 Test Item Value Reference Range Comments [...] code=IG%) 1.0 % 0.0-0.4 CBC WITH AUTO [id number] 07:35:00 Test Item Value Reference Range Comments [...] code=IG%) 1.2 % 0.0-0.4 HEP B SURFACE [id number] 07:14:00 Test Item Value Reference Range Comments [...] code=HBSAG) Negative (qualifier Negative value) TYPE & [id number] 04:15:00 Test Item Value Reference Range Comments ABO Blood Type (test code=ABO) O Rh (test code=RH) Positive Antibody Screen (test code=ABSCR) Negative Negative ARMBAND# (test code=ARMBAND) [id number] PRO-BNP(B-Type Natriuretic Peptide)2017-06-16 03:42:00 Test Item Value Reference Range Comments Pro-BNP(B-Peptide) 45736 pg/ml 0-125 THE METHODOLOGY FOR DETECTION OF [...] TIBC (test code=TIBC) 161 ug/dl 178-500 B12, [id number] 03:32:00 Test Item Value Reference Range Comments B12 (test code=B12) 717 pg/ml 239-941 [id number] 03:32:00 Test Item Value Reference Range Comments Folic Acid (test code=FOLIC) 5.35 ng/ml 2.76-20.00 IRON [id number] 03:32:00 Test Item Value Reference Range Comments Iron (test code=FETOT) 33 ug/dl 20-149 TIBC (test code=TIBC) 161 ug/dl 178-500 Iron Saturation (test code=FESAT) 20 % 16-62 [id number] 03:05:00 Test Item Value Reference Range Comments [...] (test code=BGCTHB) 9.6 gm/dl 11.5-17.4 O2Hb (test code=YFID4NI) 94.7 % 95.0-99.0 COHb (test code=BGFCOHB) <2.8 [...] Notified (test code=BGTMNOTIFIED) 03:03 O2 Device (test code=JYP0HGZ3) ROOM AIR Instrument ID (test code=BGINSTRID) [id number] Reported By (test code=BGREPORTEDBY) LUCY GAMBLE GLYCOSALATED [id number] 02:39:00 Test Item Value Reference Range Comments Hemoglobin A1C (test 5.78 % 4.3-6.0 code=GLYCO) Mean Plasma Glucose (test 128 mg/dl 90-180 WHEN TEST RESULTS FOR A1C code=MPG) EXCEED 14.0, THE LINEAR LIMIT OF THE INSTRUMENT, THE CALCULATED RESULT FOR THE MEAN GLUCOSE IS NOT RELIABLE. CORONARY [id number] 02:22:00 Test Item Value Reference Range Comments [...] vLDL (test code=VLDL) 16 mg/dl 30-60 VANCOMYCIN, [id number] 02:19:00 Test Item Value Reference Range Comments Vancomycin, Trough (test 7.7 ug/ml 15.0-20.0 05/13/2009 Change in Therapeutic code=VANCT) Range, for Trough Level, has been implemented per P&T committee. INTERPRETATION GUIDE: CONSIDER SENSITIVITY REPORT IF NGUYEN IS=1 THERAPEUTIC RANGE IS 15-20 ug/ml IF NGUYEN IS > OR=2 CONSIDER ALTERNATE THERAPY [id number] 02:05:00 Test Item Value Reference Range Comments [...] mL/min/1.73m\\S\\2 EGFR if Non- 23 Estimated Glomerular Bangladeshi (test mL/min/1.73m\\S\\2 Filtration Rate (eGFR) code=EGFRNA) Reference Intervals Decision Points for 18 years and older and average body mass: >=60 Does not exclude kidney disease. 30 - 59 Suggests moderate chronic kidney disease and indicates the need for further investigation including assessment of proteinuria and cardiovascular factors. < 30 Usually indicates a need for referral for assessment and management of chronic kidney failure. [id number] 02:05:00 Test Item Value Reference Range Comments Magnesium (test code=MG) 1.9 mg/dl 1.6-2.3 CBC WITH AUTO [id number] 02:03:00 Test Item Value Reference Range Comments [...] code=IG%) 0.9 % 0.0-0.4 AFB CULTURE + [id number] 12:29:00 Test Item Value Reference Range Comments CULTURE (BEAKER) (test No acid-fast bacilli isolated jaog=6936) in 42 days AFB SMEAR (BEAKER) (test No acid fast bacilli seen mqii=557) AFB CULTURE + [id number] 12:28:00 Test Item Value Reference Range Comments CULTURE (BEAKER) (test No acid-fast bacilli isolated zzuh=9467) in 42 days AFB SMEAR (BEAKER) (test No acid fast bacilli seen ldyt=335) FUNGUS CULTURE + [id number] 17:13:00 Test Item Value Reference Range Comments CULTURE (BEAKER) (test No fungus isolated in 28 days ezmy=4057) FUNGUS SMEAR (BEAKER) (test No fungi seen srsj=7634) FUNGUS CULTURE + [id number] 17:13:00 Test Item Value Reference Range Comments CULTURE (BEAKER) (test No fungus isolated in 28 days ljsv=2525) FUNGUS SMEAR (BEAKER) (test No fungi seen djly=5134) FUNGUS CULTURE + [id number] 21:46:00 Test Item Value Reference Range Comments CULTURE (BEAKER) (test No fungus isolated in 28 days zikg=7949) FUNGUS SMEAR (BEAKER) (test No fungi seen ahhh=5360) POCT-GLUCOSE [id number] 17:22:00 Test Item Value Reference Range Comments POC-GLUCOSE METER (BEAKER) 169 mg/dL 70-110 TESTED AT [address] (test cmln=8078) [place] [id number] POCT-GLUCOSE [id number] 12:13:00 Test Item Value Reference Range Comments POC-GLUCOSE METER (BEAKER) 165 mg/dL 70-110 TESTED AT [address] (test vwgw=8417) [place] [id number] POCT-GLUCOSE [id number] 07:48:00 Test Item Value Reference Range Comments POC-GLUCOSE METER (BEAKER) 132 mg/dL 70-110 TESTED AT [address] (test spen=5228) [facility] [address] BASIC METABOLIC [id number] 07:26:00 Test Item Value Reference Range Comments SODIUM (BEAKER) (test 133 meq/L 136-145 jimy=790) POTASSIUM (BEAKER) (test 4.2 meq/L 3.5-5.1 wrbj=720) CHLORIDE (BEAKER) (test 101 meq/L 98-107 odue=849) CO2 (BEAKER) (test 22 meq/L 22-29 yeoe=125) BLOOD UREA NITROGEN 38 mg/dL 7-21 (BEAKER) (test yhuf=700) CREATININE (BEAKER) (test 4.01 mg/dL 0.57-1.25 hzok=701) GLUCOSE RANDOM (BEAKER) 110 mg/dL 70-105 (test ogzj=560) CALCIUM (BEAKER) (test 8.7 mg/dL 8.4-10.2 uahj=925) EGFR (BEAKER) (test 15 mL/min/1.73 sq m ESTIMATED GFR IS NOT dyxq=5625) ACCURATE CREATININE CLEARANCE IN PREDICTING GLOMERULAR FILTRATION RATE. ESTIMATED GFR IS NOT APPLICABLE FOR DIALYSIS PATIENTS. [id number] 07:25:00 Test Item Value Reference Range Comments PHOSPHORUS (BEAKER) (test ykgg=177) 4.4 mg/dL 2.3-4.7 [id number] 07:25:00 Test Item Value Reference Range Comments MAGNESIUM (BEAKER) (test tzhs=655) 1.9 mg/dL 1.6-2.6 CBC W/PLT COUNT & AUTO [id number] 06:54:00 Test Item Value Reference Range Comments WHITE BLOOD CELL COUNT (BEAKER) (test brkl=838) 12.6 K/ L 4.0-10.0 RED BLOOD CELL COUNT (BEAKER) (test tgox=063) 2.78 M/ L 4.20-5.80 HEMOGLOBIN (BEAKER) (test xhll=888) 8.3 GM/DL 13.0-16.8 HEMATOCRIT (BEAKER) (test siax=915) 25.1 % 40.0-50.0 MEAN CORPUSCULAR VOLUME (BEAKER) (test nyij=487) 90.3 fL 82.0-98.0 MEAN CORPUSCULAR HEMOGLOBIN (BEAKER) (test 29.8 pg 27.0-33.0 avnx=767) MEAN CORPUSCULAR HEMOGLOBIN CONC (BEAKER) (test 33.1 GM/DL 32.0-36.0 mfkb=487) RED CELL DISTRIBUTION WIDTH (BEAKER) (test 16.1 % 10.3-14.2 ovyj=677) PLATELET COUNT (BEAKER) (test sovn=828) 290 K/CU MM 150-430 MEAN PLATELET VOLUME (BEAKER) (test cfjk=980) 7.2 fL 6.5-10.5 NUCLEATED RED BLOOD CELLS (BEAKER) (test 0 /100 WBC 0-0 kckp=273) NEUTROPHILS RELATIVE PERCENT (BEAKER) (test 74 % khfp=138) LYMPHOCYTES RELATIVE PERCENT (BEAKER) (test 15 % auer=413) MONOCYTES RELATIVE PERCENT (BEAKER) (test 9 % wbte=113) EOSINOPHILS RELATIVE PERCENT (BEAKER) (test 2 % uanz=779) BASOPHILS RELATIVE PERCENT (BEAKER) (test 0 % nzwf=158) NEUTROPHILS ABSOLUTE COUNT (BEAKER) (test 9.30 K/ L 1.80-8.00 pcad=516) LYMPHOCYTES ABSOLUTE COUNT (BEAKER) (test 1.89 K/ L 1.48-4.50 jnjs=030) MONOCYTES ABSOLUTE COUNT (BEAKER) (test 1.14 K/ L 0.00-1.30 qxhq=479) EOSINOPHILS ABSOLUTE COUNT (BEAKER) (test 0.26 K/ L 0.00-0.50 kdxm=489) BASOPHILS ABSOLUTE COUNT (BEAKER) (test 0.05 K/ L 0.00-0.20 kpbc=194) 0.00POCT-GLUCOSE [id number] 22:31:00 Test Item Value Reference Range Comments POC-GLUCOSE METER (BEAKER) 133 mg/dL 70-110 TESTED AT [address] (test nmvs=1163) [place] [address] POCT-GLUCOSE [id number] 17:17:00 Test Item Value Reference Range Comments POC-GLUCOSE METER (BEAKER) 119 mg/dL 70-110 TESTED AT [address] (test aeht=4795) [place] [address] POCT-GLUCOSE [id number] 11:43:00 Test Item Value Reference Range Comments POC-GLUCOSE METER (BEAKER) 175 mg/dL 70-110 TESTED AT [address] (test vpui=9359) [place] [address] CBC W/PLT COUNT & AUTO [id number] 08:39:00 Test Item Value Reference Range Comments WHITE BLOOD CELL COUNT (BEAKER) (test nyhy=721) 13.4 K/ L 4.0-10.0 RED BLOOD CELL COUNT (BEAKER) (test xzds=503) 2.91 M/ L 4.20-5.80 HEMOGLOBIN (BEAKER) (test pmbv=681) 8.6 GM/DL 13.0-16.8 HEMATOCRIT (BEAKER) (test lszb=780) 26.5 % 40.0-50.0 MEAN CORPUSCULAR VOLUME (BEAKER) (test byje=949) 91.1 fL 82.0-98.0 MEAN CORPUSCULAR HEMOGLOBIN (BEAKER) (test 29.4 pg 27.0-33.0 vnzv=819) MEAN CORPUSCULAR HEMOGLOBIN CONC (BEAKER) (test 32.3 GM/DL 32.0-36.0 dngg=026) RED CELL DISTRIBUTION WIDTH (BEAKER) (test 16.0 % 10.3-14.2 ykok=672) PLATELET COUNT (BEAKER) (test fvlm=141) 282 K/CU MM 150-430 MEAN PLATELET VOLUME (BEAKER) (test ykow=316) 7.7 fL 6.5-10.5 NUCLEATED RED BLOOD CELLS (BEAKER) (test 0 /100 WBC 0-0 sxrt=108) NEUTROPHILS RELATIVE PERCENT (BEAKER) (test 72 % hdls=747) LYMPHOCYTES RELATIVE PERCENT (BEAKER) (test 16 % ezrf=399) MONOCYTES RELATIVE PERCENT (BEAKER) (test 10 % gwex=331) EOSINOPHILS RELATIVE PERCENT (BEAKER) (test 2 % kzey=092) BASOPHILS RELATIVE PERCENT (BEAKER) (test 1 % wcec=973) NEUTROPHILS ABSOLUTE COUNT (BEAKER) (test 9.63 K/ L 1.80-8.00 dwvm=066) LYMPHOCYTES ABSOLUTE COUNT (BEAKER) (test 2.15 K/ L 1.48-4.50 iqdr=685) MONOCYTES ABSOLUTE COUNT (BEAKER) (test 1.32 K/ L 0.00-1.30 xloh=463) EOSINOPHILS ABSOLUTE COUNT (BEAKER) (test 0.23 K/ L 0.00-0.50 iefv=257) BASOPHILS ABSOLUTE COUNT (BEAKER) (test 0.10 K/ L 0.00-0.20 oddm=833) 0.000.730.001.460.000.000.000.000.000.000.000.000.000.000.000.00(MANUAL DIFFERENTIAL)2016-12-24 08:39:00 Test Item Value Reference Range Comments TOTAL COUNTED (BEAKER) (test lpjp=0698) POCT-GLUCOSE [id number] 07:47:00 Test Item Value Reference Range Comments POC-GLUCOSE METER (BEAKER) 139 mg/dL 70-110 TESTED AT [address] (test ykrg=4776) [facility] [address] BASIC METABOLIC [id number] 06:50:00 Test Item Value Reference Range Comments SODIUM (BEAKER) (test 133 meq/L 136-145 pjie=413) POTASSIUM (BEAKER) (test 4.2 meq/L 3.5-5.1 lrql=793) CHLORIDE (BEAKER) (test 102 meq/L 98-107 oocq=172) CO2 (BEAKER) (test 21 meq/L 22-29 ghrt=068) BLOOD UREA NITROGEN 27 mg/dL 7-21 (BEAKER) (test xokb=651) CREATININE (BEAKER) (test 3.13 mg/dL 0.57-1.25 vnjl=098) GLUCOSE RANDOM (BEAKER) 100 mg/dL 70-105 (test hpzs=045) CALCIUM (BEAKER) (test 8.8 mg/dL 8.4-10.2 mewr=549) EGFR (BEAKER) (test 21 mL/min/1.73 sq m ESTIMATED GFR IS NOT nccs=1239) ACCURATE CREATININE CLEARANCE IN PREDICTING GLOMERULAR FILTRATION RATE. ESTIMATED GFR IS NOT APPLICABLE FOR DIALYSIS PATIENTS. [id number] 06:41:00 Test Item Value Reference Range Comments PHOSPHORUS (BEAKER) (test ivbj=713) 2.9 mg/dL 2.3-4.7 [id number] 06:41:00 Test Item Value Reference Range Comments MAGNESIUM (BEAKER) (test jowi=526) 1.7 mg/dL 1.6-2.6 POCT-GLUCOSE [id number] 21:52:00 Test Item Value Reference Range Comments POC-GLUCOSE METER (BEAKER) 97 mg/dL 70-110 TESTED AT [address] (test yniv=4209) [facility] [address] POCT-GLUCOSE [id number] 17:28:00 Test Item Value Reference Range Comments POC-GLUCOSE METER (BEAKER) 105 mg/dL 70-110 TESTED AT [address] (test hfdr=7856) [facility] [address] POCT-GLUCOSE [id number] 12:31:00 Test Item Value Reference Range Comments POC-GLUCOSE METER (BEAKER) 215 mg/dL 70-110 TESTED AT [facility] [address] [facility] (test fvua=5945) [facility] [address] POCT-GLUCOSE [id number] 08:19:00 Test Item Value Reference Range Comments POC-GLUCOSE METER (BEAKER) 135 mg/dL 70-110 TESTED AT [facility] [address] [facility] (test pdkx=7184) [facility] [address] CBC W/PLT COUNT & AUTO [id number] 07:19:00 Test Item Value Reference Range Comments WHITE BLOOD CELL COUNT (BEAKER) (test wwcu=166) 15.0 K/ L 4.0-10.0 RED BLOOD CELL COUNT (BEAKER) (test fvnh=754) 3.04 M/ L 4.20-5.80 HEMOGLOBIN (BEAKER) (test zviw=167) 8.8 GM/DL 13.0-16.8 HEMATOCRIT (BEAKER) (test gcdm=972) 27.3 % 40.0-50.0 MEAN CORPUSCULAR VOLUME (BEAKER) (test cika=781) 89.8 fL 82.0-98.0 MEAN CORPUSCULAR HEMOGLOBIN (BEAKER) (test 29.0 pg 27.0-33.0 lgqf=651) MEAN CORPUSCULAR HEMOGLOBIN CONC (BEAKER) (test 32.3 GM/DL 32.0-36.0 bcmy=232) RED CELL DISTRIBUTION WIDTH (BEAKER) (test 17.0 % 10.3-14.2 ffzf=270) PLATELET COUNT (BEAKER) (test gszo=938) 285 K/CU MM 150-430 MEAN PLATELET VOLUME (BEAKER) (test zgmn=158) 7.2 fL 6.5-10.5 NUCLEATED RED BLOOD CELLS (BEAKER) (test 0 /100 WBC 0-0 ptlm=089) NEUTROPHILS RELATIVE PERCENT (BEAKER) (test 77 % dopy=894) LYMPHOCYTES RELATIVE PERCENT (BEAKER) (test 11 % omaj=278) MONOCYTES RELATIVE PERCENT (BEAKER) (test 11 % bwbv=065) EOSINOPHILS RELATIVE PERCENT (BEAKER) (test 1 % ayef=723) BASOPHILS RELATIVE PERCENT (BEAKER) (test 0 % amry=777) NEUTROPHILS ABSOLUTE COUNT (BEAKER) (test 11.50 K/ L 1.80-8.00 mwyw=524) LYMPHOCYTES ABSOLUTE COUNT (BEAKER) (test 1.72 K/ L 1.48-4.50 qfwz=920) MONOCYTES ABSOLUTE COUNT (BEAKER) (test 1.59 K/ L 0.00-1.30 wywl=792) EOSINOPHILS ABSOLUTE COUNT (BEAKER) (test 0.17 K/ L 0.00-0.50 vyig=469) BASOPHILS ABSOLUTE COUNT (BEAKER) (test 0.05 K/ L 0.00-0.20 vcio=753) [id number] 06:41:00 Test Item Value Reference Range Comments PHOSPHORUS (BEAKER) (test ryne=407) 2.1 mg/dL 2.3-4.7 [id number] 06:41:00 Test Item Value Reference Range Comments MAGNESIUM (BEAKER) (test wtns=357) 1.8 mg/dL 1.6-2.6 BASIC METABOLIC [id number] 06:41:00 Test Item Value Reference Range Comments SODIUM (BEAKER) (test 134 meq/L 136-145 iiaa=501) POTASSIUM (BEAKER) (test 4.2 meq/L 3.5-5.1 hpyk=949) CHLORIDE (BEAKER) (test 103 meq/L 98-107 xlfl=509) CO2 (BEAKER) (test 23 meq/L 22-29 apra=550) BLOOD UREA NITROGEN 18 mg/dL 7-21 (BEAKER) (test vrtb=912) CREATININE (BEAKER) (test 2.20 mg/dL 0.57-1.25 isbi=501) GLUCOSE RANDOM (BEAKER) 105 mg/dL 70-105 (test fqag=507) CALCIUM (BEAKER) (test 8.5 mg/dL 8.4-10.2 dcup=789) EGFR (BEAKER) (test 31 mL/min/1.73 sq m ESTIMATED GFR IS NOT qxkt=0486) ACCURATE CREATININE CLEARANCE IN PREDICTING GLOMERULAR FILTRATION RATE. ESTIMATED GFR IS NOT APPLICABLE FOR DIALYSIS PATIENTS. POCT-GLUCOSE [id number] 21:43:00 Test Item Value Reference Range Comments POC-GLUCOSE METER (BEAKER) 278 mg/dL 70-110 TESTED AT [address] (test jofe=5816) [place] [id number] POCT-GLUCOSE [id number] 18:42:00 Test Item Value Reference Range Comments POC-GLUCOSE METER (BEAKER) 177 mg/dL 70-110 TESTED AT [place] [id number] [facility] (test buvd=0124) [place] [address] POCT-GLUCOSE [id number] 14:53:00 Test Item Value Reference Range Comments POC-GLUCOSE METER (BEAKER) 197 mg/dL 70-110 TESTED AT [address] (test ybpu=2667) [place] [id number] CBC W/PLT COUNT & AUTO [id number] 12:20:00 Test Item Value Reference Range Comments WHITE BLOOD CELL COUNT (BEAKER) (test kepy=765) 13.6 K/ L 4.0-10.0 RED BLOOD CELL COUNT (BEAKER) (test cmpf=110) 2.85 M/ L 4.20-5.80 HEMOGLOBIN (BEAKER) (test ylxp=726) 8.3 GM/DL 13.0-16.8 HEMATOCRIT (BEAKER) (test pipr=671) 25.8 % 40.0-50.0 MEAN CORPUSCULAR VOLUME (BEAKER) (test bdel=180) 90.6 fL 82.0-98.0 MEAN CORPUSCULAR HEMOGLOBIN (BEAKER) (test 29.3 pg 27.0-33.0 pagi=535) MEAN CORPUSCULAR HEMOGLOBIN CONC (BEAKER) (test 32.3 GM/DL 32.0-36.0 cmmu=110) RED CELL DISTRIBUTION WIDTH (BEAKER) (test 16.7 % 10.3-14.2 mboa=033) PLATELET COUNT (BEAKER) (test osvt=748) 252 K/CU MM 150-430 MEAN PLATELET VOLUME (BEAKER) (test bxto=962) 7.4 fL 6.5-10.5 NUCLEATED RED BLOOD CELLS (BEAKER) (test 0 /100 WBC 0-0 qvvm=215) NEUTROPHILS RELATIVE PERCENT (BEAKER) (test 75 % qpqd=879) LYMPHOCYTES RELATIVE PERCENT (BEAKER) (test 13 % bgbo=291) MONOCYTES RELATIVE PERCENT (BEAKER) (test 10 % hebt=730) EOSINOPHILS RELATIVE PERCENT (BEAKER) (test 2 % sfvq=633) BASOPHILS RELATIVE PERCENT (BEAKER) (test 0 % zjox=825) NEUTROPHILS ABSOLUTE COUNT (BEAKER) (test 10.20 K/ L 1.80-8.00 haoy=238) LYMPHOCYTES ABSOLUTE COUNT (BEAKER) (test 1.78 K/ L 1.48-4.50 yxvm=075) MONOCYTES ABSOLUTE COUNT (BEAKER) (test 1.32 K/ L 0.00-1.30 mxin=463) EOSINOPHILS ABSOLUTE COUNT (BEAKER) (test 0.22 K/ L 0.00-0.50 edqt=149) BASOPHILS ABSOLUTE COUNT (BEAKER) (test 0.06 K/ L 0.00-0.20 gwdi=638) 0.00POCT-GLUCOSE [id number] 08:28:00 Test Item Value Reference Range Comments POC-GLUCOSE METER (BEAKER) 132 mg/dL 70-110 TESTED AT [facility] [address] [facility] (test rbqh=3155) [facility] [address] BASIC METABOLIC [id number] 07:26:00 Test Item Value Reference Range Comments SODIUM (BEAKER) (test 131 meq/L 136-145 fjiq=826) POTASSIUM (BEAKER) (test 4.2 meq/L 3.5-5.1 iplx=295) CHLORIDE (BEAKER) (test 98 meq/L 98-107 yosu=932) CO2 (BEAKER) (test 24 meq/L 22-29 hldf=905) BLOOD UREA NITROGEN 25 mg/dL 7-21 (BEAKER) (test fzuy=359) CREATININE (BEAKER) (test 3.02 mg/dL 0.57-1.25 djab=811) GLUCOSE RANDOM (BEAKER) 103 mg/dL 70-105 (test wvwe=007) CALCIUM (BEAKER) (test 8.1 mg/dL 8.4-10.2 rbox=543) EGFR (BEAKER) (test 21 mL/min/1.73 sq m ESTIMATED GFR IS NOT ajpv=8677) ACCURATE CREATININE CLEARANCE IN PREDICTING GLOMERULAR FILTRATION RATE. ESTIMATED GFR IS NOT APPLICABLE FOR DIALYSIS PATIENTS. [id number] 07:17:00 Test Item Value Reference Range Comments PHOSPHORUS (BEAKER) (test uqsq=360) 3.1 mg/dL 2.3-4.7 [id number] 07:17:00 Test Item Value Reference Range Comments MAGNESIUM (BEAKER) (test xulp=671) 1.8 mg/dL 1.6-2.6 CALCIUM, [id number] 05:38:00 Test Item Value Reference Range Comments CALCIUM IONIZED (BEAKER) (test lxlg=590) 1.09 mmol/L 1.12-1.27 PH, BLOOD (BEAKER) (test czcn=5434) 7.45 POCT-GLUCOSE [id number] 21:45:00 Test Item Value Reference Range Comments POC-GLUCOSE METER (BEAKER) 121 mg/dL 70-110 TESTED AT [address] (test rjgn=6080) [place] [id number] POCT-GLUCOSE [id number] 16:48:00 Test Item Value Reference Range Comments POC-GLUCOSE METER (BEAKER) 157 mg/dL 70-110 TESTED AT [address] (test eawi=9038) [place] [id number] POCT-GLUCOSE [id number] 12:16:00 Test Item Value Reference Range Comments POC-GLUCOSE METER (BEAKER) 247 mg/dL 70-110 TESTED AT [address] (test vdmt=5213) [place] [id number] POCT-GLUCOSE [id number] 08:14:00 Test Item Value Reference Range Comments POC-GLUCOSE METER (BEAKER) 166 mg/dL 70-110 TESTED AT [address] (test zmmx=9342) [place] [id number] BASIC METABOLIC [id number] 07:58:00 Test Item Value Reference Range Comments SODIUM (BEAKER) (test 131 meq/L 136-145 rpfc=498) POTASSIUM (BEAKER) (test 3.9 meq/L 3.5-5.1 stpu=743) CHLORIDE (BEAKER) (test 99 meq/L 98-107 aexi=004) CO2 (BEAKER) (test 26 meq/L 22-29 meja=171) BLOOD UREA NITROGEN 18 mg/dL 7-21 (BEAKER) (test uhuv=441) CREATININE (BEAKER) (test 2.32 mg/dL 0.57-1.25 xlgj=430) GLUCOSE RANDOM (BEAKER) 145 mg/dL 70-105 (test ugmf=789) CALCIUM (BEAKER) (test 8.1 mg/dL 8.4-10.2 uaiv=437) EGFR (BEAKER) (test 29 mL/min/1.73 sq m ESTIMATED GFR IS NOT pwfk=6276) ACCURATE CREATININE CLEARANCE IN PREDICTING GLOMERULAR FILTRATION RATE. ESTIMATED GFR IS NOT APPLICABLE FOR DIALYSIS PATIENTS. CBC W/PLT COUNT & AUTO [id number] 07:50:00 Test Item Value Reference Range Comments WHITE BLOOD CELL COUNT (BEAKER) (test vzbt=254) 15.3 K/ L 4.0-10.0 RED BLOOD CELL COUNT (BEAKER) (test vzof=083) 3.00 M/ L 4.20-5.80 HEMOGLOBIN (BEAKER) (test mtos=211) 8.4 GM/DL 13.0-16.8 HEMATOCRIT (BEAKER) (test cpab=769) 27.3 % 40.0-50.0 MEAN CORPUSCULAR VOLUME (BEAKER) (test mzkp=586) 90.9 fL 82.0-98.0 MEAN CORPUSCULAR HEMOGLOBIN (BEAKER) (test 28.0 pg 27.0-33.0 rznb=225) MEAN CORPUSCULAR HEMOGLOBIN CONC (BEAKER) (test 30.8 GM/DL 32.0-36.0 jjgk=549) RED CELL DISTRIBUTION WIDTH (BEAKER) (test 15.9 % 10.3-14.2 drve=040) PLATELET COUNT (BEAKER) (test asjj=740) 271 K/CU MM 150-430 MEAN PLATELET VOLUME (BEAKER) (test bhzl=135) 7.4 fL 6.5-10.5 NUCLEATED RED BLOOD CELLS (BEAKER) (test 0 /100 WBC 0-0 gzfi=583) NEUTROPHILS RELATIVE PERCENT (BEAKER) (test 76 % ltee=644) LYMPHOCYTES RELATIVE PERCENT (BEAKER) (test 14 % iopb=132) MONOCYTES RELATIVE PERCENT (BEAKER) (test 9 % nyco=239) EOSINOPHILS RELATIVE PERCENT (BEAKER) (test 1 % mvbs=801) BASOPHILS RELATIVE PERCENT (BEAKER) (test 0 % xnyf=041) NEUTROPHILS ABSOLUTE COUNT (BEAKER) (test 11.60 K/ L 1.80-8.00 snfx=589) LYMPHOCYTES ABSOLUTE COUNT (BEAKER) (test 2.11 K/ L 1.48-4.50 bkws=279) MONOCYTES ABSOLUTE COUNT (BEAKER) (test 1.36 K/ L 0.00-1.30 nkqc=096) EOSINOPHILS ABSOLUTE COUNT (BEAKER) (test 0.17 K/ L 0.00-0.50 qrvw=608) BASOPHILS ABSOLUTE COUNT (BEAKER) (test 0.06 K/ L 0.00-0.20 hqsq=678) [id number] 07:24:00 Test Item Value Reference Range Comments PHOSPHORUS (BEAKER) (test vuhi=887) 2.1 mg/dL 2.3-4.7 [id number] 07:24:00 Test Item Value Reference Range Comments MAGNESIUM (BEAKER) (test yfik=660) 1.6 mg/dL 1.6-2.6 POCT-GLUCOSE [id number] 20:38:00 Test Item Value Reference Range Comments POC-GLUCOSE METER (BEAKER) 191 mg/dL 70-110 TESTED AT [address] (test nuqs=4229) [place] [id number] POCT-GLUCOSE [id number] 17:32:00 Test Item Value Reference Range Comments POC-GLUCOSE METER (BEAKER) 229 mg/dL 70-110 TESTED AT [address] (test auae=8228) [place] [address] VANCOMYCIN LEVEL, [id number] 16:51:00 Test Item Value Reference Range Comments VANCOMYCIN TROUGH (BEAKER) (test abpo=278) 17.2 ug/mL 10.0-20.0 At end of dialysis on 12/20/16POCT-GLUCOSE [id number] 11:49:00 Test Item Value Reference Range Comments POC-GLUCOSE METER (BEAKER) 97 mg/dL 70-110 TESTED AT [address] (test yudc=4208) [place] [id number] POCT-GLUCOSE [id number] 07:38:00 Test Item Value Reference Range Comments POC-GLUCOSE METER (BEAKER) 151 mg/dL 70-110 TESTED AT [address] (test mvgr=7364) [place] [id number] BASIC METABOLIC [id number] 06:39:00 Test Item Value Reference Range Comments SODIUM (BEAKER) (test 134 meq/L 136-145 ciec=290) POTASSIUM (BEAKER) (test 3.9 meq/L 3.5-5.1 oruo=270) CHLORIDE (BEAKER) (test 102 meq/L 98-107 koot=043) CO2 (BEAKER) (test 24 meq/L 22-29 pyua=549) BLOOD UREA NITROGEN 23 mg/dL 7-21 (BEAKER) (test ocvf=372) CREATININE (BEAKER) (test 2.91 mg/dL 0.57-1.25 kiiy=601) GLUCOSE RANDOM (BEAKER) 99 mg/dL 70-105 (test clqp=766) CALCIUM (BEAKER) (test 8.2 mg/dL 8.4-10.2 xunp=046) EGFR (BEAKER) (test 22 mL/min/1.73 sq m ESTIMATED GFR IS NOT oqwd=9599) ACCURATE CREATININE CLEARANCE IN PREDICTING GLOMERULAR FILTRATION RATE. ESTIMATED GFR IS NOT APPLICABLE FOR DIALYSIS PATIENTS. [id number] 06:37:00 Test Item Value Reference Range Comments PHOSPHORUS (BEAKER) (test wbos=379) 2.9 mg/dL 2.3-4.7 [id number] 06:37:00 Test Item Value Reference Range Comments MAGNESIUM (BEAKER) (test zvsj=737) 1.6 mg/dL 1.6-2.6 CBC W/PLT COUNT & AUTO [id number] 06:36:00 Test Item Value Reference Range Comments WHITE BLOOD CELL COUNT (BEAKER) (test gvqr=324) 14.1 K/ L 4.0-10.0 RED BLOOD CELL COUNT (BEAKER) (test oahb=042) 3.01 M/ L 4.20-5.80 HEMOGLOBIN (BEAKER) (test ymry=645) 8.7 GM/DL 13.0-16.8 HEMATOCRIT (BEAKER) (test mtgo=443) 26.8 % 40.0-50.0 MEAN CORPUSCULAR VOLUME (BEAKER) (test zqgt=325) 88.9 fL 82.0-98.0 MEAN CORPUSCULAR HEMOGLOBIN (BEAKER) (test 28.8 pg 27.0-33.0 noro=848) MEAN CORPUSCULAR HEMOGLOBIN CONC (BEAKER) (test 32.5 GM/DL 32.0-36.0 biuq=769) RED CELL DISTRIBUTION WIDTH (BEAKER) (test 16.3 % 10.3-14.2 fwho=389) PLATELET COUNT (BEAKER) (test wqjv=980) 242 K/CU MM 150-430 MEAN PLATELET VOLUME (BEAKER) (test igan=685) 6.9 fL 6.5-10.5 NUCLEATED RED BLOOD CELLS (BEAKER) (test 0 /100 WBC 0-0 kwkf=427) NEUTROPHILS RELATIVE PERCENT (BEAKER) (test 73 % rxah=805) LYMPHOCYTES RELATIVE PERCENT (BEAKER) (test 15 % oprg=830) MONOCYTES RELATIVE PERCENT (BEAKER) (test 9 % nnho=637) EOSINOPHILS RELATIVE PERCENT (BEAKER) (test 2 % pqzk=034) BASOPHILS RELATIVE PERCENT (BEAKER) (test 0 % zkth=421) NEUTROPHILS ABSOLUTE COUNT (BEAKER) (test 10.30 K/ L 1.80-8.00 pabm=337) LYMPHOCYTES ABSOLUTE COUNT (BEAKER) (test 2.14 K/ L 1.48-4.50 vdin=379) MONOCYTES ABSOLUTE COUNT (BEAKER) (test 1.33 K/ L 0.00-1.30 kwrv=637) EOSINOPHILS ABSOLUTE COUNT (BEAKER) (test 0.29 K/ L 0.00-0.50 vfsf=451) BASOPHILS ABSOLUTE COUNT (BEAKER) (test 0.06 K/ L 0.00-0.20 swgs=306) 0.00CALCIUM, [id number] 06:24:00 Test Item Value Reference Range Comments CALCIUM IONIZED (BEAKER) (test izic=224) 1.08 mmol/L 1.12-1.27 PH, BLOOD (BEAKER) (test wgxd=8644) 7.46 POCT-GLUCOSE [id number] 22:24:00 Test Item Value Reference Range Comments POC-GLUCOSE METER (BEAKER) 166 mg/dL 70-110 TESTED AT [address] (test mfqg=8272) [facility] [address] POCT-GLUCOSE [id number] 16:17:00 Test Item Value Reference Range Comments POC-GLUCOSE METER (BEAKER) 132 mg/dL 70-110 TESTED AT [address] (test uejj=2166) [facility] [address] POCT-GLUCOSE [id number] 12:16:00 Test Item Value Reference Range Comments POC-GLUCOSE METER (BEAKER) 90 mg/dL 70-110 TESTED AT [address] (test msut=9421) [facility] [address] POCT-GLUCOSE [id number] 08:13:00 Test Item Value Reference Range Comments POC-GLUCOSE METER (BEAKER) 111 mg/dL 70-110 [facility]ED AT [facility] [facility] (test fwst=2979) [facility] [address] CBC W/PLT COUNT & AUTO [id number] 07:40:00 Test Item Value Reference Range Comments WHITE BLOOD CELL COUNT (BEAKER) (test xhoj=475) 11.9 K/ L 4.0-10.0 RED BLOOD CELL COUNT (BEAKER) (test tyxh=488) 3.11 M/ L 4.20-5.80 HEMOGLOBIN (BEAKER) (test dstp=106) 8.9 GM/DL 13.0-16.8 HEMATOCRIT (BEAKER) (test prhc=602) 28.0 % 40.0-50.0 MEAN CORPUSCULAR VOLUME (BEAKER) (test zfrh=398) 90.3 fL 82.0-98.0 MEAN CORPUSCULAR HEMOGLOBIN (BEAKER) (test 28.7 pg 27.0-33.0 evfi=922) MEAN CORPUSCULAR HEMOGLOBIN CONC (BEAKER) (test 31.8 GM/DL 32.0-36.0 eozo=160) RED CELL DISTRIBUTION WIDTH (BEAKER) (test 15.5 % 10.3-14.2 fxkx=855) PLATELET COUNT (BEAKER) (test scpv=311) 252 K/CU MM 150-430 MEAN PLATELET VOLUME (BEAKER) (test yuwq=517) 7.1 fL 6.5-10.5 NUCLEATED RED BLOOD CELLS (BEAKER) (test 0 /100 WBC 0-0 ivel=874) NEUTROPHILS RELATIVE PERCENT (BEAKER) (test 69 % cbue=765) LYMPHOCYTES RELATIVE PERCENT (BEAKER) (test 18 % quet=490) MONOCYTES RELATIVE PERCENT (BEAKER) (test 11 % spwt=454) EOSINOPHILS RELATIVE PERCENT (BEAKER) (test 2 % fuck=955) BASOPHILS RELATIVE PERCENT (BEAKER) (test 0 % fuuv=395) NEUTROPHILS ABSOLUTE COUNT (BEAKER) (test 8.27 K/ L 1.80-8.00 wujx=263) LYMPHOCYTES ABSOLUTE COUNT (BEAKER) (test 2.09 K/ L 1.48-4.50 fvpk=802) MONOCYTES ABSOLUTE COUNT (BEAKER) (test 1.35 K/ L 0.00-1.30 qpyi=539) EOSINOPHILS ABSOLUTE COUNT (BEAKER) (test 0.19 K/ L 0.00-0.50 utom=197) BASOPHILS ABSOLUTE COUNT (BEAKER) (test 0.04 K/ L 0.00-0.20 kzuu=608) [id number] 07:29:00 Test Item Value Reference Range Comments PHOSPHORUS (BEAKER) (test ogqa=301) 1.8 mg/dL 2.3-4.7 [id number] 07:29:00 Test Item Value Reference Range Comments MAGNESIUM (BEAKER) (test tdzv=821) 1.6 mg/dL 1.6-2.6 BASIC METABOLIC [id number] 07:29:00 Test Item Value Reference Range Comments SODIUM (BEAKER) (test 135 meq/L 136-145 nzwf=722) POTASSIUM (BEAKER) (test 3.7 meq/L 3.5-5.1 zjvb=370) CHLORIDE (BEAKER) (test 104 meq/L 98-107 jphx=703) CO2 (BEAKER) (test 24 meq/L 22-29 qokd=783) BLOOD UREA NITROGEN 12 mg/dL 7-21 (BEAKER) (test btkn=451) CREATININE (BEAKER) (test 2.00 mg/dL 0.57-1.25 kiuc=198) GLUCOSE RANDOM (BEAKER) 81 mg/dL 70-105 (test kafs=584) CALCIUM (BEAKER) (test 8.2 mg/dL 8.4-10.2 hifl=964) EGFR (BEAKER) (test 34 mL/min/1.73 sq m ESTIMATED GFR IS NOT gfgu=7751) ACCURATE CREATININE CLEARANCE IN PREDICTING GLOMERULAR FILTRATION RATE. ESTIMATED GFR IS NOT APPLICABLE FOR DIALYSIS PATIENTS. POCT-GLUCOSE [id number] 21:13:00 Test Item Value Reference Range Comments POC-GLUCOSE METER (BEAKER) 107 mg/dL 70-110 TESTED AT [address] (test njqw=8212) [facility] [address] POCT-GLUCOSE [id number] 17:33:00 Test Item Value Reference Range Comments POC-GLUCOSE METER (BEAKER) 131 mg/dL 70-110 TESTED AT [address] (test qswr=0095) [facility] [address] POCT-GLUCOSE [id number] 13:05:00 Test Item Value Reference Range Comments POC-GLUCOSE METER (BEAKER) 188 mg/dL 70-110 TESTED AT [place] [id number] [facility] (test oepx=5989) [facility] [address] POCT-GLUCOSE [id number] 09:01:00 Test Item Value Reference Range Comments POC-GLUCOSE METER (BEAKER) 103 mg/dL 70-110 TESTED AT [address] (test uhhe=0982) [facility] [address] CBC W/PLT COUNT & AUTO [id number] 07:08:00 Test Item Value Reference Range Comments WHITE BLOOD CELL COUNT (BEAKER) (test qnzi=938) 12.7 K/ L 4.0-10.0 RED BLOOD CELL COUNT (BEAKER) (test bhrv=298) 3.09 M/ L 4.20-5.80 HEMOGLOBIN (BEAKER) (test lhkz=272) 9.0 GM/DL 13.0-16.8 HEMATOCRIT (BEAKER) (test qwtq=915) 27.4 % 40.0-50.0 MEAN CORPUSCULAR VOLUME (BEAKER) (test ywfo=783) 88.8 fL 82.0-98.0 MEAN CORPUSCULAR HEMOGLOBIN (BEAKER) (test 29.0 pg 27.0-33.0 sjzg=572) MEAN CORPUSCULAR HEMOGLOBIN CONC (BEAKER) (test 32.7 GM/DL 32.0-36.0 ycmb=681) RED CELL DISTRIBUTION WIDTH (BEAKER) (test 15.7 % 10.3-14.2 levq=189) PLATELET COUNT (BEAKER) (test mtdh=947) 257 K/CU MM 150-430 MEAN PLATELET VOLUME (BEAKER) (test kvgw=743) 7.0 fL 6.5-10.5 NUCLEATED RED BLOOD CELLS (BEAKER) (test 0 /100 WBC 0-0 wumz=635) NEUTROPHILS RELATIVE PERCENT (BEAKER) (test 74 % fkol=355) LYMPHOCYTES RELATIVE PERCENT (BEAKER) (test 14 % gfcy=906) MONOCYTES RELATIVE PERCENT (BEAKER) (test 9 % dlib=388) EOSINOPHILS RELATIVE PERCENT (BEAKER) (test 2 % zyeq=033) BASOPHILS RELATIVE PERCENT (BEAKER) (test 0 % qrwz=433) NEUTROPHILS ABSOLUTE COUNT (BEAKER) (test 9.38 K/ L 1.80-8.00 jiwe=612) LYMPHOCYTES ABSOLUTE COUNT (BEAKER) (test 1.80 K/ L 1.48-4.50 lbrl=240) MONOCYTES ABSOLUTE COUNT (BEAKER) (test 1.20 K/ L 0.00-1.30 axyo=983) EOSINOPHILS ABSOLUTE COUNT (BEAKER) (test 0.24 K/ L 0.00-0.50 frbh=252) BASOPHILS ABSOLUTE COUNT (BEAKER) (test 0.05 K/ L 0.00-0.20 iard=605) [id number] 06:17:00 Test Item Value Reference Range Comments PHOSPHORUS (BEAKER) (test bvva=284) 2.4 mg/dL 2.3-4.7 [id number] 06:17:00 Test Item Value Reference Range Comments MAGNESIUM (BEAKER) (test xpnh=081) 1.5 mg/dL 1.6-2.6 BASIC METABOLIC [id number] 06:17:00 Test Item Value Reference Range Comments SODIUM (BEAKER) (test 135 meq/L 136-145 hfpk=111) POTASSIUM (BEAKER) (test 3.7 meq/L 3.5-5.1 qhqr=852) CHLORIDE (BEAKER) (test 104 meq/L 98-107 spzp=022) CO2 (BEAKER) (test 23 meq/L 22-29 otaj=208) BLOOD UREA NITROGEN 24 mg/dL 7-21 (BEAKER) (test iyfw=887) CREATININE (BEAKER) (test 2.70 mg/dL 0.57-1.25 rnpw=629) GLUCOSE RANDOM (BEAKER) 93 mg/dL 70-105 (test cvvo=416) CALCIUM (BEAKER) (test 8.4 mg/dL 8.4-10.2 hblk=661) EGFR (BEAKER) (test 24 mL/min/1.73 sq m ESTIMATED GFR IS NOT vzew=9898) ACCURATE CREATININE CLEARANCE IN PREDICTING GLOMERULAR FILTRATION RATE. ESTIMATED GFR IS NOT APPLICABLE FOR DIALYSIS PATIENTS. POCT-GLUCOSE [id number] 23:43:00 Test Item Value Reference Range Comments POC-GLUCOSE METER (BEAKER) 100 mg/dL 70-110 TESTED AT [address] (test nccn=6737) [place] [id number] POCT-GLUCOSE [id number] 17:44:00 Test Item Value Reference Range Comments POC-GLUCOSE METER (BEAKER) 208 mg/dL 70-110 TESTED AT [address] (test odxf=1208) [place] [address] ANAEROBIC [id number] 14:43:00 Test Item Value Reference Range Comments CULTURE (BEAKER) (test btel=4917) No anaerobes isolated ANAEROBIC [id number] 14:42:00 Test Item Value Reference Range Comments CULTURE (BEAKER) (test znuq=9902) No anaerobes isolated POCT-GLUCOSE [id number] 12:02:00 Test Item Value Reference Range Comments POC-GLUCOSE METER (BEAKER) 208 mg/dL 70-110 TESTED AT [address] (test eckh=8789) [place] [address] POCT-GLUCOSE [id number] 09:52:00 Test Item Value Reference Range Comments POC-GLUCOSE METER (BEAKER) 86 mg/dL 70-110 TESTED AT [address] (test ckwe=6573) [place] [address] CBC W/PLT COUNT & AUTO [id number] 07:11:00 Test Item Value Reference Range Comments WHITE BLOOD CELL COUNT (BEAKER) (test htgc=130) 11.1 K/ L 4.0-10.0 RED BLOOD CELL COUNT (BEAKER) (test ynef=062) 3.26 M/ L 4.20-5.80 HEMOGLOBIN (BEAKER) (test pzhu=554) 9.6 GM/DL 13.0-16.8 HEMATOCRIT (BEAKER) (test mvkc=809) 29.4 % 40.0-50.0 MEAN CORPUSCULAR VOLUME (BEAKER) (test zjlk=446) 90.2 fL 82.0-98.0 MEAN CORPUSCULAR HEMOGLOBIN (BEAKER) (test 29.5 pg 27.0-33.0 augp=529) MEAN CORPUSCULAR HEMOGLOBIN CONC (BEAKER) (test 32.7 GM/DL 32.0-36.0 hybb=315) RED CELL DISTRIBUTION WIDTH (BEAKER) (test 14.7 % 10.3-14.2 fewx=278) PLATELET COUNT (BEAKER) (test nfgx=124) 280 K/CU MM 150-430 MEAN PLATELET VOLUME (BEAKER) (test iubm=665) 6.8 fL 6.5-10.5 NUCLEATED RED BLOOD CELLS (BEAKER) (test 0 /100 WBC 0-0 cijt=509) NEUTROPHILS RELATIVE PERCENT (BEAKER) (test 73 % latr=454) LYMPHOCYTES RELATIVE PERCENT (BEAKER) (test 15 % ylpu=219) MONOCYTES RELATIVE PERCENT (BEAKER) (test 10 % ytif=807) EOSINOPHILS RELATIVE PERCENT (BEAKER) (test 2 % eawx=033) BASOPHILS RELATIVE PERCENT (BEAKER) (test 0 % ndlc=597) NEUTROPHILS ABSOLUTE COUNT (BEAKER) (test 8.08 K/ L 1.80-8.00 xtqb=744) LYMPHOCYTES ABSOLUTE COUNT (BEAKER) (test 1.66 K/ L 1.48-4.50 qnes=548) MONOCYTES ABSOLUTE COUNT (BEAKER) (test 1.06 K/ L 0.00-1.30 nkbw=880) EOSINOPHILS ABSOLUTE COUNT (BEAKER) (test 0.26 K/ L 0.00-0.50 oopv=268) BASOPHILS ABSOLUTE COUNT (BEAKER) (test 0.05 K/ L 0.00-0.20 mevi=054) [id number] 06:02:00 Test Item Value Reference Range Comments PHOSPHORUS (BEAKER) (test fulf=131) 1.7 mg/dL 2.3-4.7 [id number] 06:02:00 Test Item Value Reference Range Comments MAGNESIUM (BEAKER) (test lbch=664) 1.5 mg/dL 1.6-2.6 BASIC METABOLIC [id number] 06:02:00 Test Item Value Reference Range Comments SODIUM (BEAKER) (test 136 meq/L 136-145 xhul=453) POTASSIUM (BEAKER) (test 3.9 meq/L 3.5-5.1 mpxc=283) CHLORIDE (BEAKER) (test 103 meq/L 98-107 pkma=803) CO2 (BEAKER) (test 25 meq/L 22-29 vhzi=305) BLOOD UREA NITROGEN 13 mg/dL 7-21 (BEAKER) (test rkgw=524) CREATININE (BEAKER) (test 1.67 mg/dL 0.57-1.25 freu=426) GLUCOSE RANDOM (BEAKER) 74 mg/dL 70-105 (test vjnd=814) CALCIUM (BEAKER) (test 8.7 mg/dL 8.4-10.2 wosj=326) EGFR (BEAKER) (test 42 mL/min/1.73 sq m ESTIMATED GFR IS NOT iyuv=7740) ACCURATE CREATININE CLEARANCE IN PREDICTING GLOMERULAR FILTRATION RATE. ESTIMATED GFR IS NOT APPLICABLE FOR DIALYSIS PATIENTS. POCT-GLUCOSE [id number] 21:46:00 Test Item Value Reference Range Comments POC-GLUCOSE METER (BEAKER) 83 mg/dL 70-110 TESTED AT [address] (test eqle=2360) [place] [id number] POCT-GLUCOSE [id number] 17:45:00 Test Item Value Reference Range Comments POC-GLUCOSE METER (BEAKER) 83 mg/dL 70-110 TESTED AT [address] (test fgci=2077) [place] [id number] POCT-GLUCOSE [id number] 11:03:00 Test Item Value Reference Range Comments POC-GLUCOSE METER (BEAKER) 152 mg/dL 70-110 TESTED AT [address] (test jxyt=4974) [facility] [address] CBC W/PLT COUNT & AUTO [id number] 08:54:00 Test Item Value Reference Range Comments WHITE BLOOD CELL COUNT (BEAKER) (test qflu=071) 14.2 K/ L 4.0-10.0 RED BLOOD CELL COUNT (BEAKER) (test qkwt=949) 2.99 M/ L 4.20-5.80 HEMOGLOBIN (BEAKER) (test fkxh=310) 8.6 GM/DL 13.0-16.8 HEMATOCRIT (BEAKER) (test iwpg=618) 27.1 % 40.0-50.0 MEAN CORPUSCULAR VOLUME (BEAKER) (test kpxy=119) 90.6 fL 82.0-98.0 MEAN CORPUSCULAR HEMOGLOBIN (BEAKER) (test 28.6 pg 27.0-33.0 wres=347) MEAN CORPUSCULAR HEMOGLOBIN CONC (BEAKER) (test 31.6 GM/DL 32.0-36.0 eods=740) RED CELL DISTRIBUTION WIDTH (BEAKER) (test 14.6 % 10.3-14.2 pbnf=057) PLATELET COUNT (BEAKER) (test zqoy=969) 285 K/CU MM 150-430 MEAN PLATELET VOLUME (BEAKER) (test gczn=425) 7.1 fL 6.5-10.5 NUCLEATED RED BLOOD CELLS (BEAKER) (test 0 /100 WBC 0-0 uuhi=771) NEUTROPHILS RELATIVE PERCENT (BEAKER) (test 79 % psgk=427) LYMPHOCYTES RELATIVE PERCENT (BEAKER) (test 10 % sdzd=013) MONOCYTES RELATIVE PERCENT (BEAKER) (test 9 % xujh=465) EOSINOPHILS RELATIVE PERCENT (BEAKER) (test 2 % tkvc=803) BASOPHILS RELATIVE PERCENT (BEAKER) (test 0 % uhan=611) NEUTROPHILS ABSOLUTE COUNT (BEAKER) (test 11.20 K/ L 1.80-8.00 xoin=890) LYMPHOCYTES ABSOLUTE COUNT (BEAKER) (test 1.40 K/ L 1.48-4.50 ropi=820) MONOCYTES ABSOLUTE COUNT (BEAKER) (test 1.30 K/ L 0.00-1.30 vplv=992) EOSINOPHILS ABSOLUTE COUNT (BEAKER) (test 0.27 K/ L 0.00-0.50 fehu=258) BASOPHILS ABSOLUTE COUNT (BEAKER) (test 0.04 K/ L 0.00-0.20 onus=244) 0.00BASIC METABOLIC [id number] 08:46:00 Test Item Value Reference Range Comments SODIUM (BEAKER) (test 138 meq/L 136-145 moqx=977) POTASSIUM (BEAKER) (test 3.8 meq/L 3.5-5.1 oyhk=428) CHLORIDE (BEAKER) (test 103 meq/L 98-107 emof=099) CO2 (BEAKER) (test 25 meq/L 22-29 ytvx=054) BLOOD UREA NITROGEN 29 mg/dL 7-21 (BEAKER) (test ejsp=047) CREATININE (BEAKER) (test 2.68 mg/dL 0.57-1.25 dqbh=138) GLUCOSE RANDOM (BEAKER) 91 mg/dL 70-105 (test tjcw=262) CALCIUM (BEAKER) (test 7.9 mg/dL 8.4-10.2 bkxm=502) EGFR (BEAKER) (test 25 mL/min/1.73 sq m ESTIMATED GFR IS NOT tawe=1738) ACCURATE CREATININE CLEARANCE IN PREDICTING GLOMERULAR FILTRATION RATE. ESTIMATED GFR IS NOT APPLICABLE FOR DIALYSIS PATIENTS. VANCOMYCIN LEVEL, [id number] 07:53:00 Test Item Value Reference Range Comments VANCOMYCIN RANDOM (BEAKER) (test udjc=258) 15.1 ug/mL Reference Range: No NormalsPOCT-GLUCOSE [id number] 07:52:00 Test Item Value Reference Range Comments POC-GLUCOSE METER (BEAKER) 126 mg/dL 70-110 TESTED AT [address] (test qmbi=8647) [place] [address] [id number] 07:50:00 Test Item Value Reference Range Comments PHOSPHORUS (BEAKER) (test qksx=616) 2.1 mg/dL 2.3-4.7 [id number] 07:50:00 Test Item Value Reference Range Comments MAGNESIUM (BEAKER) (test ailn=633) 1.7 mg/dL 1.6-2.6 POCT-GLUCOSE [id number] 21:08:00 Test Item Value Reference Range Comments POC-GLUCOSE METER (BEAKER) 234 mg/dL 70-110 TESTED AT [address] (test hujq=6581) [place] [address] POCT-GLUCOSE [id number] 17:02:00 Test Item Value Reference Range Comments POC-GLUCOSE METER (BEAKER) 230 mg/dL 70-110 TESTED AT [address] (test xrid=3096) [place] [address] SURGICALLY OBTAINED CULTURE + GRAM [id number] 09:26:00 Test Item Value Reference Range Comments CULTURE (BEAKER) (test <1+ Same organism has been vvpm=4026) isolated from cultures(s) of the same body site and collection date. Repeat identification and susceptibility testing performed only after consultation with the clinical microbiology laboratory.Refer to previous culture ofMethicillin resistant Staphylococcus aureus GRAM STAIN RESULT <1+ WBCs (BEAKER) (test ieed=7025) GRAM STAIN RESULT No organisms seen (BEAKER) (test vtdo=346538) SURGICALLY OBTAINED CULTURE + GRAM [id number] 09:25:00 Test Item Value Reference Range Comments CULTURE (BEAKER) (test METHICILLIN RESISTANT <1+ Methicillin tqch=6312) STAPHYLOCOCCUS AUREUS resistant Staphylococcus aureus Clindamycin (test code=10) Erythromycin (test code=4) Linezolid (test code=40) Oxacillin (test code=14) Rifampin (test code=43) Tetracycline (test code=2) Trimethoprim + Sulfamethoxazole (test code=47) Vancomycin (test code=13) CULTURE (BEAKER) (test METHICILLIN RESISTANT <1+ Methicillin pugl=37941) STAPHYLOCOCCUS AUREUS resistant Staphylococcus aureusof a second type Clindamycin (test code=10) Erythromycin (test code=4) Linezolid (test code=40) Oxacillin (test code=14) Rifampin (test code=43) Tetracycline (test code=2) Trimethoprim + Sulfamethoxazole (test code=47) Vancomycin (test code=13) GRAM STAIN RESULT No White blood cells (BEAKER) (test jumr=0248) seen GRAM STAIN RESULT No organisms seen (BEAKER) (test kcxg=678356) POCT-GLUCOSE [id number] 08:39:00 Test Item Value Reference Range Comments POC-GLUCOSE METER (BEAKER) 129 mg/dL 70-110 TESTED AT [address] (test cdlq=9650) [facility] [address] CBC W/PLT COUNT & AUTO [id number] 06:51:00 Test Item Value Reference Range Comments WHITE BLOOD CELL COUNT (BEAKER) (test httk=797) 17.4 K/ L 4.0-10.0 RED BLOOD CELL COUNT (BEAKER) (test izmb=208) 2.99 M/ L 4.20-5.80 HEMOGLOBIN (BEAKER) (test psrb=342) 8.9 GM/DL 13.0-16.8 HEMATOCRIT (BEAKER) (test kvvh=641) 27.1 % 40.0-50.0 MEAN CORPUSCULAR VOLUME (BEAKER) (test yvhv=053) 90.6 fL 82.0-98.0 MEAN CORPUSCULAR HEMOGLOBIN (BEAKER) (test 29.6 pg 27.0-33.0 tjte=129) MEAN CORPUSCULAR HEMOGLOBIN CONC (BEAKER) (test 32.7 GM/DL 32.0-36.0 fjcb=770) RED CELL DISTRIBUTION WIDTH (BEAKER) (test 15.3 % 10.3-14.2 xcgn=357) PLATELET COUNT (BEAKER) (test tdbc=861) 246 K/CU MM 150-430 MEAN PLATELET VOLUME (BEAKER) (test ozja=988) 6.7 fL 6.5-10.5 NUCLEATED RED BLOOD CELLS (BEAKER) (test 0 /100 WBC 0-0 ojaw=180) NEUTROPHILS RELATIVE PERCENT (BEAKER) (test 83 % vtnk=899) LYMPHOCYTES RELATIVE PERCENT (BEAKER) (test 7 % lgcb=734) MONOCYTES RELATIVE PERCENT (BEAKER) (test 9 % vskw=646) EOSINOPHILS RELATIVE PERCENT (BEAKER) (test 1 % otlr=129) BASOPHILS RELATIVE PERCENT (BEAKER) (test 0 % xyia=579) NEUTROPHILS ABSOLUTE COUNT (BEAKER) (test 14.50 K/ L 1.80-8.00 znmi=723) LYMPHOCYTES ABSOLUTE COUNT (BEAKER) (test 1.19 K/ L 1.48-4.50 ptsd=870) MONOCYTES ABSOLUTE COUNT (BEAKER) (test 1.56 K/ L 0.00-1.30 bedh=129) EOSINOPHILS ABSOLUTE COUNT (BEAKER) (test 0.13 K/ L 0.00-0.50 ojqi=536) BASOPHILS ABSOLUTE COUNT (BEAKER) (test 0.03 K/ L 0.00-0.20 dxmk=896) 0.00BASIC METABOLIC [id number] 05:44:00 Test Item Value Reference Range Comments SODIUM (BEAKER) (test 139 meq/L 136-145 zzau=072) POTASSIUM (BEAKER) (test 3.7 meq/L 3.5-5.1 cdob=105) CHLORIDE (BEAKER) (test 104 meq/L 98-107 vkke=244) CO2 (BEAKER) (test 26 meq/L 22-29 gfgi=759) BLOOD UREA NITROGEN 19 mg/dL 7-21 (BEAKER) (test kyws=928) CREATININE (BEAKER) (test 2.08 mg/dL 0.57-1.25 ffwx=746) GLUCOSE RANDOM (BEAKER) 127 mg/dL 70-105 (test kuqm=888) CALCIUM (BEAKER) (test 7.9 mg/dL 8.4-10.2 olpg=992) EGFR (BEAKER) (test 33 mL/min/1.73 sq m ESTIMATED GFR IS NOT doph=7841) ACCURATE CREATININE CLEARANCE IN PREDICTING GLOMERULAR FILTRATION RATE. ESTIMATED GFR IS NOT APPLICABLE FOR DIALYSIS PATIENTS. [id number] 05:42:00 Test Item Value Reference Range Comments PHOSPHORUS (BEAKER) (test fboj=289) 2.3 mg/dL 2.3-4.7 [id number] 05:42:00 Test Item Value Reference Range Comments MAGNESIUM (BEAKER) (test cxpk=267) 1.7 mg/dL 1.6-2.6 CALCIUM, [id number] 05:21:00 Test Item Value Reference Range Comments CALCIUM IONIZED (BEAKER) (test cabu=880) 0.99 mmol/L 1.12-1.27 PH, BLOOD (BEAKER) (test zztd=8623) 7.44 POCT-GLUCOSE [id number] 21:08:00 Test Item Value Reference Range Comments POC-GLUCOSE METER (BEAKER) 184 mg/dL 70-110 TESTED AT [address] (test dtbs=0123) [place] [id number] POCT-GLUCOSE [id number] 18:10:00 Test Item Value Reference Range Comments POC-GLUCOSE METER (BEAKER) 214 mg/dL 70-110 TESTED AT [address] (test ucxz=6470) [facility] [address] POCT-GLUCOSE [id number] 18:04:00 Test Item Value Reference Range Comments POC-GLUCOSE METER (BEAKER) 169 mg/dL 70-110 TESTED AT [address] (test mjya=7683) [facility] [address] POCT-GLUCOSE [id number] 11:49:00 Test Item Value Reference Range Comments POC-GLUCOSE METER (BEAKER) 126 mg/dL 70-110 TESTED AT [address] (test hflk=1030) [facility] [address] POCT-GLUCOSE [id number] 08:17:00 Test Item Value Reference Range Comments POC-GLUCOSE METER (BEAKER) 119 mg/dL 70-110 TESTED AT [address] (test xqvc=9027) [facility] [address] VANCOMYCIN LEVEL, [id number] 06:32:00 Test Item Value Reference Range Comments VANCOMYCIN RANDOM (BEAKER) (test cyly=278) 13.8 ug/mL Reference Range: No NormalsPOCT-GLUCOSE [id number] 05:54:00 Test Item Value Reference Range Comments POC-GLUCOSE METER (BEAKER) 122 mg/dL 70-110 TESTED AT [facility] [address] (test dyis=5950) [place] [address] B-TYPE NATRIURETIC FACTOR (BNP)2016-12-14 03:44:00 Test Item Value Reference Range Comments B-TYPE NATRIURETIC PEPTIDE (BEAKER) (test 883 pg/mL 0-100 reji=374) BASIC METABOLIC [id number] 03:40:00 Test Item Value Reference Range Comments SODIUM (BEAKER) (test 140 meq/L 136-145 ulzk=821) POTASSIUM (BEAKER) (test 4.5 meq/L 3.5-5.1 uwmy=002) CHLORIDE (BEAKER) (test 109 meq/L 98-107 orsj=020) CO2 (BEAKER) (test 23 meq/L 22-29 cdiw=507) BLOOD UREA NITROGEN 21 mg/dL 7-21 (BEAKER) (test rspe=091) CREATININE (BEAKER) (test 2.96 mg/dL 0.57-1.25 ujbw=520) GLUCOSE RANDOM (BEAKER) 118 mg/dL 70-105 (test trgx=726) CALCIUM (BEAKER) (test 7.5 mg/dL 8.4-10.2 pmkv=937) EGFR (BEAKER) (test 22 mL/min/1.73 sq m ESTIMATED GFR IS NOT idri=1005) ACCURATE CREATININE CLEARANCE IN PREDICTING GLOMERULAR FILTRATION RATE. ESTIMATED GFR IS NOT APPLICABLE FOR DIALYSIS PATIENTS. [id number] 03:37:00 Test Item Value Reference Range Comments PHOSPHORUS (BEAKER) (test seuj=513) 4.6 mg/dL 2.3-4.7 [id number] 03:37:00 Test Item Value Reference Range Comments MAGNESIUM (BEAKER) (test xyjc=606) 1.7 mg/dL 1.6-2.6 CBC W/PLT COUNT & AUTO [id number] 03:36:00 Test Item Value Reference Range Comments WHITE BLOOD CELL COUNT (BEAKER) (test vgqj=167) 23.8 K/ L 4.0-10.0 RED BLOOD CELL COUNT (BEAKER) (test xrhr=660) 2.80 M/ L 4.20-5.80 HEMOGLOBIN (BEAKER) (test ihdd=818) 8.3 GM/DL 13.0-16.8 HEMATOCRIT (BEAKER) (test dgda=034) 25.7 % 40.0-50.0 MEAN CORPUSCULAR VOLUME (BEAKER) (test epsi=376) 91.8 fL 82.0-98.0 MEAN CORPUSCULAR HEMOGLOBIN (BEAKER) (test 29.6 pg 27.0-33.0 myyx=148) MEAN CORPUSCULAR HEMOGLOBIN CONC (BEAKER) (test 32.2 GM/DL 32.0-36.0 bcti=262) RED CELL DISTRIBUTION WIDTH (BEAKER) (test 14.8 % 10.3-14.2 itrk=185) PLATELET COUNT (BEAKER) (test zrle=047) 261 K/CU MM 150-430 MEAN PLATELET VOLUME (BEAKER) (test yixn=352) 6.4 fL 6.5-10.5 NUCLEATED RED BLOOD CELLS (BEAKER) (test 0 /100 WBC 0-0 vfqm=408) NEUTROPHILS RELATIVE PERCENT (BEAKER) (test 88 % lboh=980) LYMPHOCYTES RELATIVE PERCENT (BEAKER) (test 6 % trsp=326) MONOCYTES RELATIVE PERCENT (BEAKER) (test 6 % sqne=019) EOSINOPHILS RELATIVE PERCENT (BEAKER) (test 0 % xpil=849) BASOPHILS RELATIVE PERCENT (BEAKER) (test 0 % enlg=227) NEUTROPHILS ABSOLUTE COUNT (BEAKER) (test 21.00 K/ L 1.80-8.00 cduu=519) LYMPHOCYTES ABSOLUTE COUNT (BEAKER) (test 1.16 K/ L 1.48-4.50 voji=042) MONOCYTES ABSOLUTE COUNT (BEAKER) (test 1.53 K/ L 0.00-1.30 utoq=070) EOSINOPHILS ABSOLUTE COUNT (BEAKER) (test 0.08 K/ L 0.00-0.50 rpct=477) BASOPHILS ABSOLUTE COUNT (BEAKER) (test 0.03 K/ L 0.00-0.20 skim=777) 0.00CALCIUM, [id number] 03:20:00 Test Item Value Reference Range Comments CALCIUM IONIZED (BEAKER) (test nlzg=959) 1.02 mmol/L 1.12-1.27 PH, BLOOD (BEAKER) (test uhhs=4436) 7.44 POCT-GLUCOSE [id number] 23:20:00 Test Item Value Reference Range Comments POC-GLUCOSE METER (BEAKER) 129 mg/dL 70-110 TESTED AT [facility] [address] [facility] (test cwbm=5874) [facility] [address] POCT-GLUCOSE [id number] 16:47:00 Test Item Value Reference Range Comments POC-GLUCOSE METER (BEAKER) 120 mg/dL 70-110 TESTED AT [place] [id number] [facility] (test hdrb=1601) [facility] [address] SPIN/CONCENTRATION [id number] 13:52:00 Test Item Value Reference Range Comments CONCENTRATION CHARGED (BEAKER) (test ktqk=3554) Done SPIN/CONCENTRATION [id number] 13:52:00 Test Item Value Reference Range Comments CONCENTRATION CHARGED (BEAKER) (test vznw=7803) Done BLOOD GAS, [id number] 08:32:00 Test Item Value Reference Range Comments PH ARTERIAL (BEAKER) (test uewn=124) 7.41 7.35-7.45 PCO2 ARTERIAL (BEAKER) (test qzcj=475) 45 mmHg 35-45 PO2 ARTERIAL (BEAKER) (test urnp=045) 137 mmHg 80-90 O2 SATURATION ARTERIAL (BEAKER) (test qksz=392) 98.7 % 96.0-97.0 HCO3 ARTERIAL (BEAKER) (test qdla=161) 28 mmol/L 21-29 BASE EXCESS ARTERIAL (BEAKER) (test pwms=517) 2.8 mmol/L -2.0-3.0 PATIENT TEMPERATURE (BEAKER) (test ivko=2170) 37.0 C FIO2 (BEAKER) (test lvqz=3443) 40.0 % CBC W/PLT COUNT & AUTO [id number] 08:04:00 Test Item Value Reference Range Comments WHITE BLOOD CELL COUNT (BEAKER) (test hbvp=681) 23.6 K/ L 4.0-10.0 RED BLOOD CELL COUNT (BEAKER) (test ogrt=071) 3.04 M/ L 4.20-5.80 HEMOGLOBIN (BEAKER) (test njkp=522) 8.9 GM/DL 13.0-16.8 HEMATOCRIT (BEAKER) (test zctn=436) 26.9 % 40.0-50.0 MEAN CORPUSCULAR VOLUME (BEAKER) (test dnfs=296) 88.6 fL 82.0-98.0 MEAN CORPUSCULAR HEMOGLOBIN (BEAKER) (test 29.4 pg 27.0-33.0 lenj=427) MEAN CORPUSCULAR HEMOGLOBIN CONC (BEAKER) (test 33.2 GM/DL 32.0-36.0 mzmc=168) RED CELL DISTRIBUTION WIDTH (BEAKER) (test 15.4 % 10.3-14.2 wylb=371) PLATELET COUNT (BEAKER) (test gmhm=133) 291 K/CU MM 150-430 MEAN PLATELET VOLUME (BEAKER) (test nqdn=929) 6.9 fL 6.5-10.5 NUCLEATED RED BLOOD CELLS (BEAKER) (test 0 /100 WBC 0-0 ogrd=456) NEUTROPHILS RELATIVE PERCENT (BEAKER) (test 89 % tmau=039) LYMPHOCYTES RELATIVE PERCENT (BEAKER) (test 5 % iehi=655) MONOCYTES RELATIVE PERCENT (BEAKER) (test 6 % yjvw=361) EOSINOPHILS RELATIVE PERCENT (BEAKER) (test 0 % fnty=141) BASOPHILS RELATIVE PERCENT (BEAKER) (test 0 % emen=106) NEUTROPHILS ABSOLUTE COUNT (BEAKER) (test 21.00 K/ L 1.80-8.00 ijkw=383) LYMPHOCYTES ABSOLUTE COUNT (BEAKER) (test 1.17 K/ L 1.48-4.50 oluu=167) MONOCYTES ABSOLUTE COUNT (BEAKER) (test 1.37 K/ L 0.00-1.30 rxew=015) EOSINOPHILS ABSOLUTE COUNT (BEAKER) (test 0.04 K/ L 0.00-0.50 viob=471) BASOPHILS ABSOLUTE COUNT (BEAKER) (test 0.02 K/ L 0.00-0.20 rkby=508) 0.00(MANUAL DIFFERENTIAL)2016-12-13 08:04:00 Test Item Value Reference Range Comments TOTAL COUNTED (BEAKER) (test cscy=0678) WBC MORPHOLOGY (BEAKER) (test nfjw=989) Normal PLT MORPHOLOGY (BEAKER) (test pqaw=930) Normal HYPOCHROMIA (BEAKER) (test czrp=996) 1+ few POCT-GLUCOSE [id number] 07:23:00 Test Item Value Reference Range Comments POC-GLUCOSE METER (BEAKER) 116 mg/dL 70-110 TESTED AT [facility] [address] [facility] (test vfaw=6102) [facility] [address] POCT-GLUCOSE [id number] 06:31:00 Test Item Value Reference Range Comments POC-GLUCOSE METER (BEAKER) 115 mg/dL 70-110 TESTED AT [facility] [address] [facility] (test odsi=2071) [facility] [address] CALCIUM, [id number] 05:09:00 Test Item Value Reference Range Comments CALCIUM IONIZED (BEAKER) (test viml=305) 1.06 mmol/L 1.12-1.27 PH, BLOOD (BEAKER) (test rebl=2602) 7.46 BASIC METABOLIC [id number] 04:49:00 Test Item Value Reference Range Comments SODIUM (BEAKER) (test 139 meq/L 136-145 lmfa=047) POTASSIUM (BEAKER) (test 4.5 meq/L 3.5-5.1 ajzy=904) CHLORIDE (BEAKER) (test 106 meq/L 98-107 ppqq=038) CO2 (BEAKER) (test 26 meq/L 22-29 eqho=447) BLOOD UREA NITROGEN 14 mg/dL 7-21 (BEAKER) (test dulh=077) CREATININE (BEAKER) (test 2.20 mg/dL 0.57-1.25 uzqn=935) GLUCOSE RANDOM (BEAKER) 138 mg/dL 70-105 (test gauf=150) CALCIUM (BEAKER) (test 7.8 mg/dL 8.4-10.2 mjgy=750) EGFR (BEAKER) (test 31 mL/min/1.73 sq m ESTIMATED GFR IS NOT gzod=3280) ACCURATE CREATININE CLEARANCE IN PREDICTING GLOMERULAR FILTRATION RATE. ESTIMATED GFR IS NOT APPLICABLE FOR DIALYSIS PATIENTS. [id number] 04:47:00 Test Item Value Reference Range Comments PHOSPHORUS (BEAKER) (test dfqz=248) 3.8 mg/dL 2.3-4.7 [id number] 04:47:00 Test Item Value Reference Range Comments MAGNESIUM (BEAKER) (test icjj=180) 1.6 mg/dL 1.6-2.6 POCT-GLUCOSE [id number] 00:17:00 Test Item Value Reference Range Comments POC-GLUCOSE METER (BEAKER) 165 mg/dL 70-110 TESTED AT [facility] [address] [facility] (test rjab=9234) [facility] [address] POCT-GLUCOSE [id number] 19:50:00 Test Item Value Reference Range Comments POC-GLUCOSE METER (BEAKER) 150 mg/dL 70-110 TESTED AT [facility] [address] (test pjoc=2663) [place] [address] GLUCOSE-STAT [id number] 16:40:00 Test Item Value Reference Range Comments GLUCOSE RANDOM (BEAKER) (test fahm=908) 93 mg/dL 70-110 SODIUM NA-STAT [id number] 16:40:00 Test Item Value Reference Range Comments SODIUM (BEAKER) (test rwbo=681) 136 meq/L 135-148 POTASSIUM-STAT [id number] 16:40:00 Test Item Value Reference Range Comments POTASSIUM (BEAKER) (test wtxf=584) 3.8 meq/L 3.6-5.5 BLOOD GAS, [id number] 16:40:00 Test Item Value Reference Range Comments PH ARTERIAL (BEAKER) (test rwgp=313) 7.45 7.35-7.45 PCO2 ARTERIAL (BEAKER) (test nryg=598) 46 mmHg 35-45 PO2 ARTERIAL (BEAKER) (test blbe=961) 371 mmHg 80-90 O2 SATURATION ARTERIAL (BEAKER) (test nbyi=839) 99.8 % 96.0-97.0 HCO3 ARTERIAL (BEAKER) (test qhtb=449) 31 mmol/L 21-29 BASE EXCESS ARTERIAL (BEAKER) (test gcze=825) 6.0 mmol/L -2.0-3.0 PATIENT TEMPERATURE (BEAKER) (test yidd=9650) 37.0 C FIO2 (BEAKER) (test ivhf=8717) 60.0 % HGB/HCT (H&H) - STAT [id number] 16:40:00 Test Item Value Reference Range Comments HEMOGLOBIN (BEAKER) (test gtua=623) 6.3 g/dL 13.0-16.8 HEMATOCRIT (BEAKER) (test xkqc=033) 19.0 % 40.0-50.0 GLUCOSE-STAT [id number] 16:14:00 Test Item Value Reference Range Comments GLUCOSE RANDOM (BEAKER) (test wmez=536) 89 mg/dL 70-110 [id number] 13:22:00 Test Item Value Reference Range Comments PARTIAL THROMBOPLASTIN TIME (BEAKER) (test 80.1 seconds 22.5-36.0 tmby=096) POCT-GLUCOSE [id number] 11:57:00 Test Item Value Reference Range Comments POC-GLUCOSE METER (BEAKER) 82 mg/dL 70-110 TESTED AT [place] [id number] [facility] (test sqbo=9045) [facility] [address] POCT-GLUCOSE [id number] 08:15:00 Test Item Value Reference Range Comments POC-GLUCOSE METER (BEAKER) 90 mg/dL 70-110 TESTED AT [address] (test sams=0898) [facility] [address] CBC W/PLT COUNT & AUTO [id number] 05:50:00 Test Item Value Reference Range Comments WHITE BLOOD CELL COUNT (BEAKER) (test zodi=233) 13.9 K/ L 4.0-10.0 RED BLOOD CELL COUNT (BEAKER) (test lhrc=035) 2.42 M/ L 4.20-5.80 HEMOGLOBIN (BEAKER) (test rvvt=221) 7.2 GM/DL 13.0-16.8 HEMATOCRIT (BEAKER) (test izgh=508) 21.8 % 40.0-50.0 MEAN CORPUSCULAR VOLUME (BEAKER) (test zbss=096) 90.3 fL 82.0-98.0 MEAN CORPUSCULAR HEMOGLOBIN (BEAKER) (test 29.5 pg 27.0-33.0 ckvi=293) MEAN CORPUSCULAR HEMOGLOBIN CONC (BEAKER) (test 32.7 GM/DL 32.0-36.0 enpa=066) RED CELL DISTRIBUTION WIDTH (BEAKER) (test 15.9 % 10.3-14.2 mzhj=973) PLATELET COUNT (BEAKER) (test kojl=278) 282 K/CU MM 150-430 MEAN PLATELET VOLUME (BEAKER) (test pblf=164) 6.8 fL 6.5-10.5 NUCLEATED RED BLOOD CELLS (BEAKER) (test 0 /100 WBC 0-0 kgfe=354) NEUTROPHILS RELATIVE PERCENT (BEAKER) (test 78 % pcyo=706) LYMPHOCYTES RELATIVE PERCENT (BEAKER) (test 11 % mvqo=754) MONOCYTES RELATIVE PERCENT (BEAKER) (test 9 % rujg=447) EOSINOPHILS RELATIVE PERCENT (BEAKER) (test 1 % vbsc=324) BASOPHILS RELATIVE PERCENT (BEAKER) (test 0 % qdsq=281) NEUTROPHILS ABSOLUTE COUNT (BEAKER) (test 10.80 K/ L 1.80-8.00 vocj=156) LYMPHOCYTES ABSOLUTE COUNT (BEAKER) (test 1.57 K/ L 1.48-4.50 pwxz=642) MONOCYTES ABSOLUTE COUNT (BEAKER) (test 1.30 K/ L 0.00-1.30 zmug=623) EOSINOPHILS ABSOLUTE COUNT (BEAKER) (test 0.20 K/ L 0.00-0.50 wixo=397) BASOPHILS ABSOLUTE COUNT (BEAKER) (test 0.04 K/ L 0.00-0.20 qzuq=158) 0.00CALCIUM, [id number] 05:43:00 Test Item Value Reference Range Comments CALCIUM IONIZED (BEAKER) (test mwsl=342) 0.97 mmol/L 1.12-1.27 PH, BLOOD (BEAKER) (test igyr=8940) 7.51 BASIC METABOLIC [id number] 05:35:00 Test Item Value Reference Range Comments SODIUM (BEAKER) (test 132 meq/L 136-145 aooq=096) POTASSIUM (BEAKER) (test 4.2 meq/L 3.5-5.1 wsfa=917) CHLORIDE (BEAKER) (test 102 meq/L 98-107 iavp=855) CO2 (BEAKER) (test 22 meq/L 22-29 nymj=310) BLOOD UREA NITROGEN 26 mg/dL 7-21 (BEAKER) (test lnmf=466) CREATININE (BEAKER) (test 3.57 mg/dL 0.57-1.25 jnts=618) GLUCOSE RANDOM (BEAKER) 69 mg/dL 70-105 (test gpwm=859) CALCIUM (BEAKER) (test 7.6 mg/dL 8.4-10.2 fyrg=697) EGFR (BEAKER) (test 18 mL/min/1.73 sq m ESTIMATED GFR IS NOT pdav=0245) ACCURATE CREATININE CLEARANCE IN PREDICTING GLOMERULAR FILTRATION RATE. ESTIMATED GFR IS NOT APPLICABLE FOR DIALYSIS PATIENTS. [id number] 05:31:00 Test Item Value Reference Range Comments PHOSPHORUS (BEAKER) (test ytxa=357) 3.7 mg/dL 2.3-4.7 [id number] 05:31:00 Test Item Value Reference Range Comments MAGNESIUM (BEAKER) (test spgd=844) 1.8 mg/dL 1.6-2.6 [id number] 05:30:00 Test Item Value Reference Range Comments PARTIAL THROMBOPLASTIN TIME (BEAKER) (test 44.4 seconds 22.5-36.0 vxmu=179) PROTHROMBIN [id number] 05:29:00 Test Item Value Reference Range Comments PROTIME (BEAKER) (test eeup=389) 14.5 seconds 11.7-14.7 INR (BEAKER) (test ykzh=687) 1.1 <=5.9 RECOMMENDED COUMADIN/WARFARIN INR THERAPY RANGESSTANDARD DOSE: 2.0 - 3.0 Includes: PROPHYLAXIS forvenous thrombosis, systemic embolization; TREATMENT for venous thrombosis and/or pulmonary embolus.HIGH RISK: Target INR is 2.5-3.5 for patients with mechanical heart valves.POCT-GLUCOSE [id number] 22:10:00 Test Item Value Reference Range Comments POC-GLUCOSE METER (BEAKER) 106 mg/dL 70-110 TESTED AT [address] (test njet=0317) [place] [id number] POCT-GLUCOSE [id number] 17:31:00 Test Item Value Reference Range Comments POC-GLUCOSE METER (BEAKER) 114 mg/dL 70-110 TESTED AT [address] (test yfjs=9974) [place] [address] [id number] 15:36:00 Test Item Value Reference Range Comments PARTIAL THROMBOPLASTIN TIME (BEAKER) (test 38.5 seconds 22.5-36.0 fzbg=378) PROTHROMBIN [id number] 15:35:00 Test Item Value Reference Range Comments PROTIME (BEAKER) (test bope=555) 14.6 seconds 11.7-14.7 INR (BEAKER) (test mawr=615) 1.2 <=5.9 RECOMMENDED COUMADIN/WARFARIN INR THERAPY RANGESSTANDARD DOSE: 2.0 - 3.0 Includes: PROPHYLAXIS forvenous thrombosis, systemic embolization; TREATMENT for venous thrombosis and/or pulmonary embolus.HIGH RISK: Target INR is 2.5-3.5 for patients with mechanical heart valves.POCT-GLUCOSE [id number] 12:12:00 Test Item Value Reference Range Comments POC-GLUCOSE METER (BEAKER) 130 mg/dL 70-110 TESTED AT [address] (test djjt=3141) [place] [id number] POCT-GLUCOSE [id number] 08:04:00 Test Item Value Reference Range Comments POC-GLUCOSE METER (BEAKER) 96 mg/dL 70-110 TESTED AT [address] (test vrdn=2770) [place] [id number] VANCOMYCIN LEVEL, [id number] 07:30:00 Test Item Value Reference Range Comments VANCOMYCIN RANDOM (BEAKER) (test hgot=024) 21.2 ug/mL Reference Range: No NormalsPOCT-GLUCOSE [id number] 20:25:00 Test Item Value Reference Range Comments POC-GLUCOSE METER (BEAKER) 152 mg/dL 70-110 TESTED AT [address] (test iyfb=5903) [place] [id number] POCT-GLUCOSE [id number] 17:23:00 Test Item Value Reference Range Comments POC-GLUCOSE METER (BEAKER) 161 mg/dL 70-110 TESTED AT [address] (test fchm=2771) [place] [address] [id number] 13:34:00 Test Item Value Reference Range Comments PROTIME (BEAKER) (test pbns=257) 15.4 seconds 11.7-14.7 INR (BEAKER) (test pkse=411) 1.2 <=5.9 PARTIAL THROMBOPLASTIN TIME (BEAKER) (test 51.5 seconds 22.5-36.0 nvkg=212) RECOMMENDED COUMADIN/WARFARIN INR THERAPY RANGESSTANDARD DOSE: 2.0 - 3.0 Includes: PROPHYLAXIS forvenous thrombosis, systemic embolization; TREATMENT for venous thrombosis and/or pulmonary embolus.HIGH RISK: Target INR is 2.5-3.5 for patients with mechanical heart valves.POCT-GLUCOSE [id number] 12:11:00 Test Item Value Reference Range Comments POC-GLUCOSE METER (BEAKER) 140 mg/dL 70-110 TESTED AT [address] (test eqmy=5932) [place] [id number] CBC W/PLT COUNT & AUTO [id number] 08:02:00 Test Item Value Reference Range Comments WHITE BLOOD CELL COUNT (BEAKER) (test xlex=910) 14.8 K/ L 4.0-10.0 RED BLOOD CELL COUNT (BEAKER) (test khll=834) 2.40 M/ L 4.20-5.80 HEMOGLOBIN (BEAKER) (test sgif=632) 7.0 GM/DL 13.0-16.8 HEMATOCRIT (BEAKER) (test dcbh=063) 21.6 % 40.0-50.0 MEAN CORPUSCULAR VOLUME (BEAKER) (test ypns=112) 90.0 fL 82.0-98.0 MEAN CORPUSCULAR HEMOGLOBIN (BEAKER) (test 29.2 pg 27.0-33.0 ttyx=180) MEAN CORPUSCULAR HEMOGLOBIN CONC (BEAKER) (test 32.5 GM/DL 32.0-36.0 udys=008) RED CELL DISTRIBUTION WIDTH (BEAKER) (test 15.8 % 10.3-14.2 wdhq=817) PLATELET COUNT (BEAKER) (test hkke=067) 276 K/CU MM 150-430 MEAN PLATELET VOLUME (BEAKER) (test ljqz=502) 6.8 fL 6.5-10.5 NUCLEATED RED BLOOD CELLS (BEAKER) (test 0 /100 WBC 0-0 vnza=074) NEUTROPHILS RELATIVE PERCENT (BEAKER) (test 80 % pxsr=447) LYMPHOCYTES RELATIVE PERCENT (BEAKER) (test 10 % bprq=466) MONOCYTES RELATIVE PERCENT (BEAKER) (test 9 % tapv=751) EOSINOPHILS RELATIVE PERCENT (BEAKER) (test 1 % djhq=148) BASOPHILS RELATIVE PERCENT (BEAKER) (test 0 % zurh=642) NEUTROPHILS ABSOLUTE COUNT (BEAKER) (test 11.80 K/ L 1.80-8.00 kyba=223) LYMPHOCYTES ABSOLUTE COUNT (BEAKER) (test 1.49 K/ L 1.48-4.50 yvkx=292) MONOCYTES ABSOLUTE COUNT (BEAKER) (test 1.28 K/ L 0.00-1.30 ygdj=899) EOSINOPHILS ABSOLUTE COUNT (BEAKER) (test 0.17 K/ L 0.00-0.50 hnel=014) BASOPHILS ABSOLUTE COUNT (BEAKER) (test 0.04 K/ L 0.00-0.20 ylgu=461) 0.00VANCOMYCIN LEVEL, [id number] 07:43:00 Test Item Value Reference Range Comments VANCOMYCIN RANDOM (BEAKER) (test yzau=124) 31.1 ug/mL Reference Range: No NormalsBASIC METABOLIC [id number] 07:30:00 Test Item Value Reference Range Comments SODIUM (BEAKER) (test 134 meq/L 136-145 tpna=761) POTASSIUM (BEAKER) (test 3.6 meq/L 3.5-5.1 kavn=324) CHLORIDE (BEAKER) (test 100 meq/L 98-107 oilh=437) CO2 (BEAKER) (test 27 meq/L 22-29 dxob=836) BLOOD UREA NITROGEN 12 mg/dL 7-21 (BEAKER) (test qves=262) CREATININE (BEAKER) (test 1.88 mg/dL 0.57-1.25 jjsd=485) GLUCOSE RANDOM (BEAKER) 109 mg/dL 70-105 (test aejl=511) CALCIUM (BEAKER) (test 7.7 mg/dL 8.4-10.2 iihy=398) EGFR (BEAKER) (test 37 mL/min/1.73 sq m ESTIMATED GFR IS NOT svya=3456) ACCURATE CREATININE CLEARANCE IN PREDICTING GLOMERULAR FILTRATION RATE. ESTIMATED GFR IS NOT APPLICABLE FOR DIALYSIS PATIENTS. [id number] 07:25:00 Test Item Value Reference Range Comments PHOSPHORUS (BEAKER) (test wuga=940) 2.9 mg/dL 2.3-4.7 [id number] 07:25:00 Test Item Value Reference Range Comments MAGNESIUM (BEAKER) (test clvh=782) 1.3 mg/dL 1.6-2.6 POCT-GLUCOSE [id number] 07:18:00 Test Item Value Reference Range Comments POC-GLUCOSE METER (BEAKER) 107 mg/dL 70-110 TESTED AT [facility] [address] [facility] (test cfyz=1666) [facility] [address] CALCIUM, [id number] 06:57:00 Test Item Value Reference Range Comments CALCIUM IONIZED (BEAKER) (test fefb=069) 1.04 mmol/L 1.12-1.27 PH, BLOOD (BEAKER) (test coek=4571) 7.44 BLOOD [id number] 17:00:00 Test Item Value Reference Range Comments CULTURE (BEAKER) (test nzih=6449) No growth in 5 days BLOOD [id number] 17:00:00 Test Item Value Reference Range Comments CULTURE (BEAKER) (test fase=5720) No growth in 5 days POCT-GLUCOSE [id number] 12:01:00 Test Item Value Reference Range Comments POC-GLUCOSE METER (BEAKER) 128 mg/dL 70-110 TESTED AT [address] (test ifwf=9482) [facility] [address] POCT-GLUCOSE [id number] 07:48:00 Test Item Value Reference Range Comments POC-GLUCOSE METER (BEAKER) 100 mg/dL 70-110 TESTED AT [address] (test azed=8331) [facility] [address] VANCOMYCIN LEVEL, [id number] 05:36:00 Test Item Value Reference Range Comments VANCOMYCIN RANDOM (BEAKER) (test xlwl=056) 26.8 ug/mL Reference Range: No NormalsSPUTUM CULTURE + GRAM [id number] 00:09:00 Test Item Value Reference Range Comments CULTURE (BEAKER) (test Oropharyngeal contamination, robs=2749) specimen rejected. Recollect requested. GRAM STAIN RESULT (BEAKER) No WBCs (test fuao=5259) GRAM STAIN RESULT (BEAKER) >25 epithelial cells (test ujly=88041) GRAM STAIN RESULT (BEAKER) 4+ gram positive rods (test hbdh=32032) GRAM STAIN RESULT (BEAKER) 4+ gram positive cocci in pairs (test rawx=566688) GRAM STAIN RESULT (BEAKER) 4+ budding yeast (test crqs=228849) POCT-GLUCOSE [id number] 20:17:00 Test Item Value Reference Range Comments POC-GLUCOSE METER (BEAKER) 111 mg/dL 70-110 TESTED AT [place] [id number] [facility] [place] (test zetg=7171) [facility] [address] TSH/FREE T4 IF [id number] 18:39:00 Test Item Value Reference Range Comments THYROID STIMULATING HORMONE (BEAKER) (test 3.14 uIU/mL 0.35-4.94 lzze=652) VITAMIN B12 AND [id number] 18:39:00 Test Item Value Reference Range Comments VITAMIN B12 (BEAKER) (test qdhs=823) 1407 pg/mL 213-816 FOLATE (BEAKER) (test xfgg=403) 16.4 ng/mL >=7.0 Effective 09/08/2014: Folate Reference Range ChangeNew: >=7.0 Previous: & gt;=[id number] 18:12:00 Test Item Value Reference Range Comments CALCIUM (BEAKER) (test zjml=692) 8.2 mg/dL 8.4-10.2 PROTHROMBIN [id number] 18:07:00 Test Item Value Reference Range Comments PROTIME (BEAKER) (test txdi=263) 15.5 seconds 11.7-14.7 INR (BEAKER) (test iddq=568) 1.2 <=5.9 RECOMMENDED COUMADIN/WARFARIN INR THERAPY RANGESSTANDARD DOSE: 2.0 - 3.0 Includes: PROPHYLAXIS forvenous thrombosis, systemic embolization; TREATMENT for venous thrombosis and/or pulmonary embolus.HIGH RISK: Target INR is 2.5-3.5 for patients with mechanical heart valves.[id number] 18:06:00 Test Item Value Reference Range Comments PHOSPHORUS (BEAKER) (test atuq=366) 3.4 mg/dL 2.3-4.7 [id number] 18:06:00 Test Item Value Reference Range Comments MAGNESIUM (BEAKER) (test rlfb=982) 1.5 mg/dL 1.6-2.6 HEPATIC FUNCTION [id number] 18:06:00 Test Item Value Reference Range Comments TOTAL PROTEIN (BEAKER) (test sdsl=312) 5.9 gm/dL 6.0-8.3 ALBUMIN (BEAKER) (test ussn=1989) 2.3 g/dL 3.5-5.0 BILIRUBIN TOTAL (BEAKER) (test nfsj=658) 0.4 mg/dL 0.2-1.2 BILIRUBIN DIRECT (BEAKER) (test vgvn=903) 0.2 mg/dL 0.1-0.5 ALKALINE PHOSPHATASE (BEAKER) (test qneu=249) 118 U/L 40-150 AST (SGOT) (BEAKER) (test eakw=803) 11 U/L 5-34 ALT (SGPT) (BEAKER) (test ymdc=811) 7 U/L 6-55 [id number] 17:57:00 Test Item Value Reference Range Comments AMMONIA (BEAKER) (test npcs=618) 23 mol/L 18-72 POCT-GLUCOSE [id number] 17:55:00 Test Item Value Reference Range Comments POC-GLUCOSE METER (BEAKER) 137 mg/dL 70-110 TESTED AT [address] (test whcv=0426) [facility] [address] POCT-GLUCOSE [id number] 17:01:00 Test Item Value Reference Range Comments POC-GLUCOSE METER (BEAKER) 62 mg/dL 70-110 TESTED AT [address] (test mtib=2428) [facility] [address] [id number] 15:09:00 Test Item Value Reference Range Comments SODIUM (BEAKER) (test whrj=564) 138 meq/L 136-145 POTASSIUM (BEAKER) (test 4.0 meq/L 3.5-5.1 Specimen slightly hemolyzed xtwb=666) CHLORIDE (BEAKER) (test 105 meq/L 98-107 maty=728) CO2 (BEAKER) (test prgz=127) 23 meq/L 22-29 BLOOD GAS, [id number] 14:56:00 Test Item Value Reference Range Comments PH ARTERIAL (BEAKER) (test riog=811) 7.53 7.35-7.45 PCO2 ARTERIAL (BEAKER) (test flrr=039) 35 mmHg 35-45 PO2 ARTERIAL (BEAKER) (test gvho=449) 70 mmHg 80-90 O2 SATURATION ARTERIAL (BEAKER) (test cyzs=204) 95.5 % 96.0-97.0 HCO3 ARTERIAL (BEAKER) (test fpnu=384) 28 mmol/L 21-29 BASE EXCESS ARTERIAL (BEAKER) (test dlom=621) 5.2 mmol/L -2.0-3.0 PATIENT TEMPERATURE (BEAKER) (test brmq=4713) 37.3 C FIO2 (BEAKER) (test rbsq=6313) 21.0 % CBC W/PLT COUNT & AUTO [id number] 14:56:00 Test Item Value Reference Range Comments WHITE BLOOD CELL COUNT (BEAKER) (test muve=715) 18.1 K/ L 4.0-10.0 RED BLOOD CELL COUNT (BEAKER) (test wnpx=600) 2.43 M/ L 4.20-5.80 HEMOGLOBIN (BEAKER) (test isis=040) 7.3 GM/DL 13.0-16.8 HEMATOCRIT (BEAKER) (test cggc=128) 22.2 % 40.0-50.0 MEAN CORPUSCULAR VOLUME (BEAKER) (test nrii=123) 91.7 fL 82.0-98.0 MEAN CORPUSCULAR HEMOGLOBIN (BEAKER) (test 30.0 pg 27.0-33.0 wjmj=858) MEAN CORPUSCULAR HEMOGLOBIN CONC (BEAKER) (test 32.7 GM/DL 32.0-36.0 suhx=442) RED CELL DISTRIBUTION WIDTH (BEAKER) (test 15.7 % 10.3-14.2 jtio=962) PLATELET COUNT (BEAKER) (test uqnn=701) 290 K/CU MM 150-430 MEAN PLATELET VOLUME (BEAKER) (test jzxo=770) 6.9 fL 6.5-10.5 NUCLEATED RED BLOOD CELLS (BEAKER) (test 0 /100 WBC 0-0 ihwo=910) NEUTROPHILS RELATIVE PERCENT (BEAKER) (test 84 % lncx=757) LYMPHOCYTES RELATIVE PERCENT (BEAKER) (test 8 % qxme=251) MONOCYTES RELATIVE PERCENT (BEAKER) (test 8 % kyvm=608) EOSINOPHILS RELATIVE PERCENT (BEAKER) (test 0 % svwj=232) BASOPHILS RELATIVE PERCENT (BEAKER) (test 0 % rjnh=835) NEUTROPHILS ABSOLUTE COUNT (BEAKER) (test 15.10 K/ L 1.80-8.00 crem=733) LYMPHOCYTES ABSOLUTE COUNT (BEAKER) (test 1.51 K/ L 1.48-4.50 wcvj=167) MONOCYTES ABSOLUTE COUNT (BEAKER) (test 1.43 K/ L 0.00-1.30 qbab=147) EOSINOPHILS ABSOLUTE COUNT (BEAKER) (test 0.03 K/ L 0.00-0.50 cgqp=908) BASOPHILS ABSOLUTE COUNT (BEAKER) (test 0.02 K/ L 0.00-0.20 nkoh=723) 0.00POCT-GLUCOSE [id number] 12:19:00 Test Item Value Reference Range Comments POC-GLUCOSE METER (BEAKER) 75 mg/dL 70-110 TESTED AT [facility] [address] [facility] (test rugb=1519) [facility] [address] [id number] 09:59:00 Test Item Value Reference Range Comments HAPTOGLOBIN (BEAKER) (test glwj=114) > mg/dL 14-258 Effective 09/08/2014: Reference Range ChangeNew: 14-258 Previous: 36- 195LACTATE DEHYDROGENASE (LDH)2016-12-08 09:56:00 Test Item Value Reference Range Comments LACTATE DEHYDROGENASE (BEAKER) (test kktn=272) 234 U/L 125-220 [id number] 09:35:00 Test Item Value Reference Range Comments FIBRINOGEN LEVEL (BEAKER) (test ktfw=540) 554 mg/dl 225-434 BASIC METABOLIC [id number] 08:56:00 Test Item Value Reference Range Comments SODIUM (BEAKER) (test 139 meq/L 136-145 ydjq=805) POTASSIUM (BEAKER) (test 3.0 meq/L 3.5-5.1 pekk=391) CHLORIDE (BEAKER) (test 114 meq/L 98-107 otuk=026) CO2 (BEAKER) (test 18 meq/L 22-29 xzaz=073) BLOOD UREA NITROGEN 14 mg/dL 7-21 (BEAKER) (test rztt=783) CREATININE (BEAKER) (test 1.68 mg/dL 0.57-1.25 dpyc=215) GLUCOSE RANDOM (BEAKER) 65 mg/dL 70-105 (test qpok=504) CALCIUM (BEAKER) (test 6.3 mg/dL 8.4-10.2 phig=741) EGFR (BEAKER) (test 42 mL/min/1.73 sq m ESTIMATED GFR IS NOT xhxh=2372) ACCURATE CREATININE CLEARANCE IN PREDICTING GLOMERULAR FILTRATION RATE. ESTIMATED GFR IS NOT APPLICABLE FOR DIALYSIS PATIENTS. CBC W/PLT COUNT & AUTO [id number] 08:55:00 Test Item Value Reference Range Comments WHITE BLOOD CELL COUNT (BEAKER) (test dgju=885) 12.8 K/ L 4.0-10.0 RED BLOOD CELL COUNT (BEAKER) (test szig=192) 1.79 M/ L 4.20-5.80 HEMOGLOBIN (BEAKER) (test wffu=029) 5.4 GM/DL 13.0-16.8 HEMATOCRIT (BEAKER) (test pxwy=174) 16.7 % 40.0-50.0 MEAN CORPUSCULAR VOLUME (BEAKER) (test hxwm=376) 93.5 fL 82.0-98.0 MEAN CORPUSCULAR HEMOGLOBIN (BEAKER) (test 30.2 pg 27.0-33.0 xyoe=679) MEAN CORPUSCULAR HEMOGLOBIN CONC (BEAKER) (test 32.3 GM/DL 32.0-36.0 ovmi=879) RED CELL DISTRIBUTION WIDTH (BEAKER) (test 15.9 % 10.3-14.2 cyuc=194) PLATELET COUNT (BEAKER) (test wckt=689) 211 K/CU MM 150-430 MEAN PLATELET VOLUME (BEAKER) (test aohy=413) 6.8 fL 6.5-10.5 NUCLEATED RED BLOOD CELLS (BEAKER) (test 0 /100 WBC 0-0 iqyg=329) NEUTROPHILS RELATIVE PERCENT (BEAKER) (test 82 % ltit=550) LYMPHOCYTES RELATIVE PERCENT (BEAKER) (test 8 % qohf=697) MONOCYTES RELATIVE PERCENT (BEAKER) (test 9 % fuup=859) EOSINOPHILS RELATIVE PERCENT (BEAKER) (test 0 % roia=682) BASOPHILS RELATIVE PERCENT (BEAKER) (test 0 % fdqr=987) NEUTROPHILS ABSOLUTE COUNT (BEAKER) (test 10.50 K/ L 1.80-8.00 dzyc=591) LYMPHOCYTES ABSOLUTE COUNT (BEAKER) (test 1.08 K/ L 1.48-4.50 pocp=321) MONOCYTES ABSOLUTE COUNT (BEAKER) (test 1.17 K/ L 0.00-1.30 wtbe=818) EOSINOPHILS ABSOLUTE COUNT (BEAKER) (test 0.06 K/ L 0.00-0.50 ehdz=521) BASOPHILS ABSOLUTE COUNT (BEAKER) (test 0.04 K/ L 0.00-0.20 albl=826) 0.00LACTIC ACID, VENOUS, WHOLE [id number] 08:52:00 Test Item Value Reference Range Comments LACTATE BLOOD VENOUS (2) (BEAKER) (test 0.5 mmol/L 0.5-2.2 dceh=0273) Effective 02/23/2016: Units/Reference Range ChangeNew: 0.5-2.2 mmol/L Previous: 5 -20 mg/dLPOCT-GLUCOSE [id number] 07:40:00 Test Item Value Reference Range Comments POC-GLUCOSE METER (BEAKER) 80 mg/dL 70-110 TESTED AT [address] (test hrja=6523) [facility] [address] POCT-GLUCOSE [id number] 21:47:00 Test Item Value Reference Range Comments POC-GLUCOSE METER (BEAKER) 97 mg/dL 70-110 TESTED AT [address] (test brst=2981) [facility] [address] POCT-GLUCOSE [id number] 17:45:00 Test Item Value Reference Range Comments POC-GLUCOSE METER (BEAKER) 115 mg/dL 70-110 TESTED AT [address] (test ghrm=5899) [facility] [address] POCT-GLUCOSE [id number] 12:56:00 Test Item Value Reference Range Comments POC-GLUCOSE METER (BEAKER) 120 mg/dL 70-110 TESTED AT [address] (test sijb=6949) [place] [id number] POCT-GLUCOSE [id number] 12:56:00 Test Item Value Reference Range Comments POC-GLUCOSE METER (BEAKER) 107 mg/dL 70-110 TESTED AT [address] (test refe=4084) [place] [id number] CBC W/PLT COUNT & AUTO [id number] 11:18:00 Test Item Value Reference Range Comments WHITE BLOOD CELL COUNT (BEAKER) (test khdh=086) 21.4 K/ L 4.0-10.0 RED BLOOD CELL COUNT (BEAKER) (test mlcx=173) 2.63 M/ L 4.20-5.80 HEMOGLOBIN (BEAKER) (test ioiy=992) 7.5 GM/DL 13.0-16.8 HEMATOCRIT (BEAKER) (test uuut=963) 24.1 % 40.0-50.0 MEAN CORPUSCULAR VOLUME (BEAKER) (test nslu=006) 91.8 fL 82.0-98.0 MEAN CORPUSCULAR HEMOGLOBIN (BEAKER) (test 28.6 pg 27.0-33.0 aoqm=487) MEAN CORPUSCULAR HEMOGLOBIN CONC (BEAKER) (test 31.1 GM/DL 32.0-36.0 pjcf=780) RED CELL DISTRIBUTION WIDTH (BEAKER) (test 15.4 % 10.3-14.2 cpqu=273) PLATELET COUNT (BEAKER) (test rnvk=370) 297 K/CU MM 150-430 MEAN PLATELET VOLUME (BEAKER) (test enpl=198) 7.0 fL 6.5-10.5 NUCLEATED RED BLOOD CELLS (BEAKER) (test 0 /100 WBC 0-0 wcqh=715) NEUTROPHILS RELATIVE PERCENT (BEAKER) (test 88 % yfmu=531) LYMPHOCYTES RELATIVE PERCENT (BEAKER) (test 6 % btfi=201) MONOCYTES RELATIVE PERCENT (BEAKER) (test 6 % duvm=299) EOSINOPHILS RELATIVE PERCENT (BEAKER) (test 0 % fijw=582) BASOPHILS RELATIVE PERCENT (BEAKER) (test 0 % yzna=594) NEUTROPHILS ABSOLUTE COUNT (BEAKER) (test 18.90 K/ L 1.80-8.00 ncvj=919) LYMPHOCYTES ABSOLUTE COUNT (BEAKER) (test 1.25 K/ L 1.48-4.50 fspf=311) MONOCYTES ABSOLUTE COUNT (BEAKER) (test 1.26 K/ L 0.00-1.30 weev=008) EOSINOPHILS ABSOLUTE COUNT (BEAKER) (test 0.05 K/ L 0.00-0.50 gacu=765) BASOPHILS ABSOLUTE COUNT (BEAKER) (test 0.01 K/ L 0.00-0.20 pwmv=980) 0.000.520.000.000.560.000.000.000.00(MANUAL DIFFERENTIAL)2016-12-07 11:18:00 Test Item Value Reference Range Comments TOTAL COUNTED (BEAKER) (test ncmy=7346) CATHETER TIP [id number] 09:38:00 Test Item Value Reference Range Comments CULTURE (BEAKER) (test METHICILLIN RESISTANT 15-29 Colonies On irrv=3779) STAPHYLOCOCCUS AUREUS Direct Plate Methicillin resistant Staphylococcus aureus Clindamycin (test code=10) Erythromycin (test code=4) Linezolid (test code=40) Oxacillin (test code=14) Rifampin (test code=43) Tetracycline (test code=2) Trimethoprim + Sulfamethoxazole (test code=47) Vancomycin (test code=13) CULTURE (BEAKER) (test <15 Colonies On oxvg=280777) Direct Plate Methicillin resistant Staphylococcus aureusof a second type CALCIUM, [id number] 09:12:00 Test Item Value Reference Range Comments CALCIUM IONIZED (BEAKER) (test hwiz=567) 1.04 mmol/L 1.12-1.27 PH, BLOOD (BEAKER) (test wcvv=5407) 7.40 BASIC METABOLIC [id number] 07:52:00 Test Item Value Reference Range Comments SODIUM (BEAKER) (test 134 meq/L 136-145 ocub=121) POTASSIUM (BEAKER) (test 4.1 meq/L 3.5-5.1 ealc=359) CHLORIDE (BEAKER) (test 103 meq/L 98-107 abmp=567) CO2 (BEAKER) (test 20 meq/L 22-29 cwpf=658) BLOOD UREA NITROGEN 37 mg/dL 7-21 (BEAKER) (test mqwc=548) CREATININE (BEAKER) (test 3.25 mg/dL 0.57-1.25 iijh=333) GLUCOSE RANDOM (BEAKER) 129 mg/dL 70-105 (test eqvt=016) CALCIUM (BEAKER) (test 8.1 mg/dL 8.4-10.2 mtlq=261) EGFR (BEAKER) (test 20 mL/min/1.73 sq m ESTIMATED GFR IS NOT khkv=6044) ACCURATE CREATININE CLEARANCE IN PREDICTING GLOMERULAR FILTRATION RATE. ESTIMATED GFR IS NOT APPLICABLE FOR DIALYSIS PATIENTS. [id number] 07:48:00 Test Item Value Reference Range Comments PHOSPHORUS (BEAKER) (test gpyq=151) 4.8 mg/dL 2.3-4.7 [id number] 07:48:00 Test Item Value Reference Range Comments MAGNESIUM (BEAKER) (test wmdm=597) 1.9 mg/dL 1.6-2.6 ANAEROBIC [id number] 02:42:00 Test Item Value Reference Range Comments CULTURE (BEAKER) (test bosy=2003) No anaerobes isolated POCT-GLUCOSE [id number] 20:57:00 Test Item Value Reference Range Comments POC-GLUCOSE METER (BEAKER) 191 mg/dL 70-110 TESTED AT [facility] [address] [facility] (test tgal=3574) [facility] [address] VANCOMYCIN LEVEL, [id number] 17:35:00 Test Item Value Reference Range Comments VANCOMYCIN RANDOM (BEAKER) (test wwhj=146) 21.9 ug/mL Reference Range: No NormalsPOCT-GLUCOSE [id number] 13:28:00 Test Item Value Reference Range Comments POC-GLUCOSE METER (BEAKER) 202 mg/dL 70-110 TESTED AT [facility] [address] [facility] (test wpag=1846) [facility] [address] POCT-GLUCOSE [id number] 08:30:00 Test Item Value Reference Range Comments POC-GLUCOSE METER (BEAKER) 144 mg/dL 70-110 TESTED AT [facility] [address] [facility] (test nczo=4395) [facility] [address] BASIC METABOLIC [id number] 07:04:00 Test Item Value Reference Range Comments SODIUM (BEAKER) (test 134 meq/L 136-145 fgsv=711) POTASSIUM (BEAKER) (test 3.8 meq/L 3.5-5.1 rodq=492) CHLORIDE (BEAKER) (test 104 meq/L 98-107 ogww=742) CO2 (BEAKER) (test 21 meq/L 22-29 blxi=869) BLOOD UREA NITROGEN 33 mg/dL 7-21 (BEAKER) (test jfrn=908) CREATININE (BEAKER) (test 2.91 mg/dL 0.57-1.25 kncp=893) GLUCOSE RANDOM (BEAKER) 124 mg/dL 70-105 (test uceq=191) CALCIUM (BEAKER) (test 7.8 mg/dL 8.4-10.2 wohf=716) EGFR (BEAKER) (test 22 mL/min/1.73 sq m ESTIMATED GFR IS NOT aqll=6370) ACCURATE CREATININE CLEARANCE IN PREDICTING GLOMERULAR FILTRATION RATE. ESTIMATED GFR IS NOT APPLICABLE FOR DIALYSIS PATIENTS. PROTHROMBIN [id number] 07:03:00 Test Item Value Reference Range Comments PROTIME (BEAKER) (test csrp=709) 14.7 seconds 11.7-14.7 INR (BEAKER) (test ghkj=953) 1.2 <=5.9 RECOMMENDED COUMADIN/WARFARIN INR THERAPY RANGESSTANDARD DOSE: 2.0 - 3.0 Includes: PROPHYLAXIS forvenous thrombosis, systemic embolization; TREATMENT for venous thrombosis and/or pulmonary embolus.HIGH RISK: Target INR is 2.5-3.5 for patients with mechanical heart valves.[id number] 07:01:00 Test Item Value Reference Range Comments PHOSPHORUS (BEAKER) (test ifur=781) 3.9 mg/dL 2.3-4.7 [id number] 07:01:00 Test Item Value Reference Range Comments MAGNESIUM (BEAKER) (test lgfm=290) 1.7 mg/dL 1.6-2.6 CALCIUM, [id number] 06:45:00 Test Item Value Reference Range Comments CALCIUM IONIZED (BEAKER) (test jmui=729) 1.00 mmol/L 1.12-1.27 PH, BLOOD (BEAKER) (test cnhh=6770) 7.43 POCT-GLUCOSE [id number] 21:06:00 Test Item Value Reference Range Comments POC-GLUCOSE METER (BEAKER) 167 mg/dL 70-110 TESTED AT [address] (test lood=3696) [place] [address] POCT-GLUCOSE [id number] 17:43:00 Test Item Value Reference Range Comments POC-GLUCOSE METER (BEAKER) 212 mg/dL 70-110 TESTED AT [address] (test fpfy=8559) [place] [address]
[2018-02-13 23:09] LABS: Absolute Lymphocytes (CBC) 0.7 K/uL (0.7-4.9); Absolute Neutrophil 7.7 K/uL (1.8-8.0); Basophils % 0.5 % (0-1.3); Eosinophils % 1.8 % (0-4.4); Hematocrit 27.7 % (39.6-49.0); Lymphocytes % 7.2 % (15.3-44.8); MCH 27.2 pg (27.0-35.0); MCV 83.4 fL (80-100); MPV 8.3 fL (7.6-11.3); Monocytes % 10.8 % (3.3-12.3); RBC Red Blood Cell Count 3.32 M/uL (4.33-5.43)
[2018-02-13 23:13] LABS: Protime INR 1.06
[2018-02-13 23:19] LABS: Potassium 4.7 mEq/L (3.6-5.0)
[2018-02-13 23:30] LABS: Albumin 3.5 g/dL (3.2-5.5); Bilirubin Direct 0.1 mg/dL (0-0.2); Bilirubin Total 0.7 mg/dL (0.3-1.2); CKMB Creatine Kinase MB 5.5 ng/ml (0.3-4.0); Magnesium 2.2 mg/dL (1.8-2.5); Protein, Total 7.3 g/dL (6.0-8.3)
--- NOTE | 2018-02-14 00:11 | EDPHYS ---
Physician Documentation [facility] Name: Federico Martinez Age: 57 yrs Sex: Male : 1960 Arrival Date: 02/13/2018 Time: 21:53 Bed 25 Private MD: ED Physician Addy Franco HPI: 02/14 00:02 This 57 yrs old Male presents to ER via EMS with complaints of pulled out alondra dialysis catheter. 00:02 The patient or guardian reports chest pain that is located primarily in the anterior alondra chest wall. Onset: The symptoms/episode began/occurred just prior to arrival. The pain does not radiate. Associated signs and symptoms: The patient has no apparent associated signs or symptoms. The chest pain is described as sharp. Modifying factors: The symptoms are alleviated by nothing. the symptoms are aggravated by palpation of area. Severity of pain: At its worst the pain was moderate in the emergency department the pain has improved moderately. The patient has not experienced similar symptoms in the past. Historical: - Allergies: 02/13 22:22 No Known Drug Allergies; lk1 - PMHx: 22:22 Sacral Pressure Ulcer Stage III; ESRD; Asthma; Anxiety; Anemia; ADD/ADHD; lk1 Atherosclerotic heart disease; Dementia; Diabetes - NIDDM; GI Hemorrhage; Hypertension; Paraplegia; Post Laminectomy Syndrome; insomnia; Pressure ulcer of right ankle, stage II; pressure ulcer of left ankle stage II; Parkinsons; osteomyelitis; Major Depressive Disorder; HEART FAILURE; GERD; Dialysis; Diabetes - IDDM; Bipolar disorder; - Immunization history:: Adult Immunizations up to date. - Social history:: Smoking status: Patient/guardian denies using tobacco. - Family history:: not pertinent. ROS: 02/14 00:02 Constitutional: Negative for fever, chills, and weight loss, Eyes: Negative for injury, alondra pain, redness, and discharge, ENT: Negative for injury, pain, and discharge, Neck: Negative for injury, pain, and swelling, Respiratory: Negative for shortness of breath, cough, wheezing, and pleuritic chest pain, Abdomen/GI: Negative for abdominal pain, nausea, vomiting, diarrhea, and constipation, Back: Negative for injury and pain, : Negative for injury, bleeding, discharge, and swelling, MS/Extremity: Negative for injury and deformity, Skin: Negative for injury, rash, and discoloration, Neuro: Negative for headache, weakness, numbness, tingling, and seizure, Psych: Negative for depression, anxiety, suicide ideation, homicidal ideation, and hallucinations, Allergy/Immunology: Negative for hives, rash, and allergies, Endocrine: Negative for neck swelling, polydipsia, polyuria, polyphagia, and marked weight changes, Hematologic/Lymphatic: Negative for swollen nodes, abnormal bleeding, and unusual bruising. Cardiovascular: Positive for chest pain, of the anterior aspect of right upper chest. Exam: 00:02 Constitutional: This is a well developed, well nourished patient who is awake, alert, alondra and in no acute distress. Head/Face: Normocephalic, atraumatic. Eyes: Pupils equal round and reactive to light, extra-ocular motions intact. Lids and lashes normal. Conjunctiva and sclera are non-icteric and not injected. Cornea within normal limits. Periorbital areas with no swelling, redness, or edema. ENT: Nares patent. No nasal discharge, no septal abnormalities noted. Tympanic membranes are normal and external auditory canals are clear. Oropharynx with no redness, swelling, or masses, exudates, or evidence of obstruction, uvula midline. Mucous membranes moist. Neck: Trachea midline, no thyromegaly or masses palpated, and no cervical lymphadenopathy. Supple, full range of motion without nuchal rigidity, or vertebral point tenderness. No Meningismus. Cardiovascular: Regular rate and rhythm with a normal S1 and S2. No gallops, murmurs, or rubs. Normal PMI, no JVD. No pulse deficits. Respiratory: Lungs have equal breath sounds bilaterally, clear to auscultation and percussion. No rales, rhonchi or wheezes noted. No increased work of breathing, no retractions or nasal flaring. Abdomen/GI: Soft, non-tender, with normal bowel sounds. No distension or tympany. No guarding or rebound. No evidence of tenderness throughout. Back: No spinal tenderness. No costovertebral tenderness. Full range of motion. Male : Normal genitalia with no discharge or lesions. Skin: Warm, dry with normal turgor. Normal color with no rashes, no lesions, and no evidence of cellulitis. MS/ Extremity: Pulses equal, no cyanosis. Neurovascular intact. Full, normal range of motion. Psych: Awake, alert, with orientation to person, place and time. Behavior, mood, and affect are within normal limits. 00:02 Chest/axilla: Inspection: puncture, that is deep, tessio catheter removed. Vital Signs: 02/13 22:00 BP 169 / 86; Pulse 54; Resp 20; Temp 97.7(O); Pulse Ox 100% on R/A; Pain 0/10; lk1 23:00 BP 160 / 108; Pulse 51; Resp 17; Pulse Ox 100% on R/A; Pain 0/10; lk1 02/14 00:00 BP 169 / 95; Pulse 52; Resp 18; Pulse Ox 100% on R/A; Pain 0/10; lk1 01:00 BP 164 / 103; Pulse 53; Resp 18; Pulse Ox 100% on R/A; Pain 0/10; lk1 02:00 BP 164 / 94; Pulse 57; Resp 18; Pulse Ox 99% on R/A; lk1 MDM: 02/13 22:01 Patient medically screened. [facility] 02/14 00:04 Data reviewed: vital signs, nurses notes, lab test result(s), EKG, radiologic studies, [facility] CT scan, plain films. 02/13 22:01 Order name: Basic Metabolic Panel [facility] 02/13 22:01 Order name: BNP; Complete Time: 23:55 [facility] 02/13 22:01 Order name: CBC with Diff; Complete Time: 23:55 [facility] 02/13 22:01 Order name: Ckmb; Complete Time: 23:55 [facility] 02/13 22:01 Order name: CPK; Complete Time: 23:55 [facility] 02/13 22:01 Order name: LFT's; Complete Time: 23:55 [facility] 02/13 22:01 Order name: Magnesium; Complete Time: 23:55 [facility] 02/13 22:01 Order name: PT-INR; Complete Time: 23:55 [facility] 02/13 22:01 Order name: Ptt, Activated; Complete Time: 23:55 [facility] 02/13 22:01 Order name: Troponin (emerg Dept Use Only); Complete Time: 23:55 [facility] 02/13 22:01 Order name: Lipase; Complete Time: 23:55 [facility] 02/13 22:01 Order name: Type And Screen [facility] 02/13 22:02 Order name: Basic Metabolic Panel; Complete Time: 23:55 EDMS 02/13 23:58 Order name: Blood Culture Adult (2) [facility] 02/13 22:01 Order name: XRAY Chest (1 view) [facility] 02/13 22:01 Order name: EKG; Complete Time: 22:02 [facility] 02/13 22:01 Order name: Cardiac monitoring; Complete Time: 23:01 [facility] 02/13 22:01 Order name: EKG - Nurse/Tech; Complete Time: 23:01 [facility] 02/13 22:01 Order name: IV Saline Lock; Complete Time: 23:01 [facility] 02/13 22:01 Order name: Labs collected and sent; Complete Time: 23:01 [facility] 02/13 22:01 Order name: O2 Per Protocol; Complete Time: 23:01 [facility] 02/13 22:01 Order name: O2 Sat Monitoring; Complete Time: 23:01 [facility] 02/13 23:55 Order name: Wound dressing: occulsive dress plesase; Complete Time: 01:06 [facility] 02/13 23:58 Order name: CT Chest Wo Con [facility] Administered Medications: 01:22 Drug: Zosyn 3.375 grams Route: IVPB; Infused Over: 60 mins; Site: left forearm; lk1 02:20 Follow up: Response: No adverse reaction; IV Status: Completed infusion lk1 Disposition: 02/14/18 00:10 Hospitalization ordered by Yasmine Monzon for Inpatient Admission. Preliminary diagnosis are End stage renal disease, Anemia, unspecified, Displacement of vascular dialysis catheter, Pleural effusion in conditions classified elsewhere, Altered mental status, unspecified, Type 2 diabetes mellitus. - Bed requested for Telemetry/MedSurg (Inpatient). - Status is Inpatient Admission. lk1 - Condition is Fair. - Problem is new. - Symptoms have improved. UTI on Admission? No Signatures: Dispatcher [employer] EDMS Addy Franco MD MD cha Martinez, Eric em1 Enid Garcia, RN RN lk1 Corrections: (The following items were deleted from the chart) 01:57 02/13 22:01 Urine Dipstick-Ancillary ordered. alondra 1
--- NOTE | 2018-02-14 00:11 | ER ---
Nurse's Notes [facility] Name: Federico Martinez Age: 57 yrs Sex: Male : 1960 Arrival Date: 02/13/2018 Time: 21:53 Bed 25 Private MD: Diagnosis: End stage renal disease;Anemia, unspecified;Displacement of vascular dialysis catheter;Pleural effusion in conditions classified elsewhere;Altered mental status, unspecified;Type 2 diabetes mellitus Presentation: 02/13 22:19 Presenting complaint: EMS states: "He is altered and pulled out his dialysis catheter lk1 at the assisted. He doesn't remember doing it.". Transition of care: patient was received from another setting of care (long-term care facility), [facility]. Onset of symptoms is unknown. Initial Sepsis Screen: Does the patient meet any 2 criteria? No. Patient's initial sepsis screen is negative. Does the patient have a suspected source of infection? No. Patient's initial sepsis screen is negative. Care prior to arrival: None. 22:19 Method Of Arrival: EMS: [facility] lk1 22:19 Acuity: CHARLES 3 lk1 Triage Assessment: 22:23 General: Appears in no apparent distress. Behavior is appropriate for age, agitated. lk1 Pain: Denies pain. EENT: No signs and/or symptoms were reported regarding the EENT system. Neuro: Level of Consciousness is awake, lethargic, Oriented to person, Speech is normal, Facial symmetry appears normal. Cardiovascular: Capillary refill is brisk Patient's skin is warm and dry. Cardiovascular: Heart tones S1 S2 present. Respiratory: Airway is patent Respiratory effort is even, unlabored, Respiratory pattern is regular, symmetrical. Respiratory: Breath sounds are diminished bilaterally. GI: No signs and/or symptoms were reported involving the gastrointestinal system. : No signs and/or symptoms were reported regarding the genitourinary system. Derm: Wound noted anterior aspect of right upper chest Wound is open hole approximately 3mm in length, not bleeding Bruising that is dark purple, on right lateral anterior chest approximately 5X2cm. Musculoskeletal: No signs and/or symptoms reported regarding the musculoskeletal system. Historical: - Allergies: 22:22 No Known Drug Allergies; lk1 - PMHx: 22:22 Sacral Pressure Ulcer Stage III; ESRD; Asthma; Anxiety; Anemia; ADD/ADHD; lk1 Atherosclerotic heart disease; Dementia; Diabetes - NIDDM; GI Hemorrhage; Hypertension; Paraplegia; Post Laminectomy Syndrome; insomnia; Pressure ulcer of right ankle, stage II; pressure ulcer of left ankle stage II; Parkinsons; osteomyelitis; Major Depressive Disorder; HEART FAILURE; GERD; Dialysis; Diabetes - IDDM; Bipolar disorder; - Immunization history:: Adult Immunizations up to date. - Social history:: Smoking status: Patient/guardian denies using tobacco. - Family history:: not pertinent. Screenin:04 Abuse screen: Denies threats or abuse. Denies injuries from another. Nutritional lk1 screening: No deficits noted. Tuberculosis screening: No symptoms or risk factors identified. Fall Risk Total Abarca Fall Scale indicates High Risk Score (45 or more points). Fall prevention measures have been instituted. Side Rails Up X 2 Placed Close to Nursing Station Frequent Obs/Assessments Occuring As available patient and family educated on Fall Prevention Program and Strategies. Assessment: 23:00 Reassessment: No changes from previously documented assessment. Patient and/or family lk1 updated on plan of care and expected duration. Pain level reassessed. Patient is alert, oriented x 3, equal unlabored respirations, skin warm/dry/pink. Patient denies pain at this time. Vital Signs: 22:00 BP 169 / 86; Pulse 54; Resp 20; Temp 97.7(O); Pulse Ox 100% on R/A; Pain 0/10; lk1 23:00 BP 160 / 108; Pulse 51; Resp 17; Pulse Ox 100% on R/A; Pain 0/10; lk1 02/14 00:00 BP 169 / 95; Pulse 52; Resp 18; Pulse Ox 100% on R/A; Pain 0/10; lk1 01:00 BP 164 / 103; Pulse 53; Resp 18; Pulse Ox 100% on R/A; Pain 0/10; lk1 02:00 BP 164 / 94; Pulse 57; Resp 18; Pulse Ox 99% on R/A; lk1 ED Course: 02/13 21:53 Patient arrived in ED. em1 22:00 Addy Franco MD is Attending Physician. alondra 22:09 EKG done, by ED staff, reviewed by Addy Franco MD. dh3 22:18 Enid Garcia, RN is Primary Nurse. lk1 22:20 Triage completed. lk1 22:26 Arm band placed on right wrist. lk1 22:30 X-ray completed. Portable x-ray completed in exam room. Patient tolerated procedure kc2 well. 22:30 XRAY Chest (1 view) In Process Unspecified. EDMS 22:50 Missed attempt(s): 20 gauge in right forearm. Bleeding controlled, band aid applied, dh3 catheter tip intact. 22:54 Initial lab(s) drawn, by pa, sent to lab. T\\T\\S collected, blood band applied to patient. dh3 Inserted saline lock: 22 gauge in left forearm, using aseptic technique. Blood collected. 23:04 Missed attempt(s): 20 gauge in left antecubital area. lk1 23:05 Patient has correct armband on for positive identification. Bed in low position. Call lk1 light in reach. Side rails up X2. 02/14 00:05 Yasmine Monzon MD is Hospitalizing Provider. alondra 02:38 No provider procedures requiring assistance completed. Patient admitted, IV remains in lk1 place. No redness/swelling at site. Administered Medications: 01:22 Drug: Zosyn 3.375 grams Route: IVPB; Infused Over: 60 mins; Site: left forearm; lk1 02:20 Follow up: Response: No adverse reaction; IV Status: Completed infusion lk1 Outcome: 00:10 Decision to Hospitalize by Provider. alondra 02:38 Admitted to Med/surg accompanied by tech, via stretcher, room 207, with chart, Report lk1 called to LIZABETH Weiss 02:38 Condition: good 02:38 Discharge instructions given to patient, Instructed on the need for admit, Demonstrated understanding of instructions. 02:40 Patient left the ED. lk1 Signatures: Dispatcher [employer] EDMS Addy Franco MD MD cha Martinez, Eric em1 Enid Garcia RN RN lk1 Breanne Hernandez2 eMlvi Lee 3 Corrections: (The following items were deleted from the chart) 02/13 23:06 22:23 Derm: Wound noted anterior aspect of right upper chest Wound is open hole lk1 approximately 3mm in length, not bleeding lk1
[2018-02-14] MEDS ORDERED: D50W 25 GM/50 ML SYRINGE IV PRN ×2 (00:20→20:42)
[2018-02-14] MEDS ORDERED: GLUCAGON 1 MG/VIAL IM PRN ×2 (00:20→20:42)
[2018-02-14] MEDS ORDERED: ONDANSETRON 4 MG/2 ML VIAL IV PRN (00:45)
[2018-02-14] MEDS ORDERED: MORPHINE 2 MG/ML SYR IV PRN (00:45)
[2018-02-14] MEDS ORDERED: ACETAMINOPHEN 500 MG TAB PO PRN (00:45)
[2018-02-14] MEDS ORDERED: PIPER/TAZO/NS 3.375gm 3.375 GM/100 ML BAG ONE (01:19)
[2018-02-14] MEDS ORDERED: INSULIN -REGULAR HUMAN 50 UNIT/0.5 ML ML SQ SCH ×2 (05:45→07:30)
[2018-02-14] MEDS: INSULIN -REGULAR HUMAN 50 UNIT/0.5 ML ML SQ SCH ×4 (06:00→20:47)
[2018-02-14] MEDS ORDERED: CEFAZOLIN/NS 1gm 1 GM/50 ML BAG IVPB SCH (07:00)
[2018-02-14] MEDS ORDERED: Morphine 2 MG/2 ML SYR IV PRN (07:12)
[2018-02-14] MEDS ORDERED: MANNITOL 25% 12.5 GM/50 ML VIAL IV PRN (08:25)
[2018-02-14] MEDS ORDERED: NA CHLORIDE 0.9% 1,000 ML IV PRN (08:25)
--- NOTE | 2018-02-14 08:26 | RAD REPORT ---
EXAM DESCRIPTION: RAD - Chest Single View - 02/13/2018 10:33 pm CLINICAL HISTORY: Shortness of breath COMPARISON: 02/08/2018 FINDINGS: Portable technique limits examination quality. Mild interstitial pulmonary edema suspected. Bilateral pleural effusions are likely present, greater on the right. The heart is mildly prominent in size. No displaced fractures. IMPRESSION: Bilateral pleural effusions, slightly greater on the right.
[2018-02-14] MEDS ORDERED: EPOETIN ALFA 10,000 UNIT/ML VIAL IV SCH (08:30)
--- NOTE | 2018-02-14 08:49 | RAD REPORT ---
EXAM DESCRIPTION: CT - Thorax Wo Con CLINICAL HISTORY: Shortness of breath. COMPARISON: 12/21/2017 FINDINGS: Compressive atelectasis is suspected in both lung bases posteriorly. It is difficult to ex clude small area of pneumonia within these areas of the atelectatic lung. Bilateral pleural effusions , moderate in size, slightly larger on the right are noted. No pneumothorax. No axillary, mediastinal or hilar adenopathy. No concerning bony finding. Mild bilateral gynecomastia. No gross upper abdominal finding. All CT scans are performed using dose optimization technique as appropriate and may include automated exposure control or mA/KV adjustment according to patient size. IMPRESSION: Moderate bilateral pleural effusions.
[2018-02-14] MEDS ORDERED: ALBUMIN HUMAN 25% 50 ML IV SCH (09:00)
--- NOTE | 2018-02-14 09:22 | P.HP ---
Certification for Inpatient Patient admitted to: Inpatient With expected LOS: >2 Midnights Patient will require the following post-hospital care: None Practitioner: I am a practitioner with admitting privileges, knowledge of patient current condition, hospital course, and medical plan of care. Services: Services provided to patient in accordance with Admission requirements found in Title 42 Section 412.3 of the Code of Federal Regulations Patient History Date of Service: 02/14/18 Reason for admission: Removed hemodialysis catheter History of Present Illness: Patient is a 57-year-old gentleman who came into the hospital after he removed his hemodialysis catheter at the senior living. Patient has been a renal patient for a long time. Patient is on hemodialysis currently. Patient has had multiple hospital admissions in the last couple of years. Patient came in after he removed the catheter for replacement of hemodialysis catheter. Allergies No Known Drug Allergies Allergy (Verified 02/09/18 01:19) Unknown No Known Allergies Allergy (Uncoded 02/09/18 01:19) Unknown Home Medications: Albuterol Inhaler [Ventolin Inhaler*] 2 puff IH QID 02/09/18 Alprazolam [Xanax] 0.5 mg PO BEDTIME 02/09/18 Alprazolam [Xanax] 1 mg PO T,TH,S 02/09/18 Clonidine HCl [Catapres*] 0.3 mg PO TID 02/09/18 Fentanyl 25 mcg TD Q72H 02/09/18 Furosemide 40 mg PO BID 02/09/18 Gabapentin [Neurontin*] 100 mg PO BID 02/09/18 Hydrocodone Bit/Acetaminophen [Hydrocodon-Acetaminoph 7.5-325] 1 each PO Q6HP PRN 02/09/18 Insulin NPH Human [Novolin N (Humulin N)*] 7 units SQ BID 02/09/18 Ipratropium/Albuterol Sulfate [Iprat-Albut 0.5-3(2.5) mg/3 ml] 3 ml IH Q6HP PRN 02/09/18 Nifedipine [Nifedipine ER] 90 mg PO Q12H 02/09/18 Nitroglycerin 0.4 mg SL Q5MX3 PRN 02/09/18 Vit D3/Folic Acid/B2/B6/B12 [Folgard Tablet] 1 each PO DAILY 02/09/18 Atorvastatin Calcium [Lipitor*] 1 tab PO BEDTIME 02/10/18 Calcitriol [Rocaltrol] 1 cap PO DAILY 02/10/18 Carvedilol [Coreg*] 25 mg PO BID 02/10/18 Donepezil HCl [Aricept] 10 mg PO BEDTIME 02/10/18 Doxazosin Mesylate 4 mg PO Q12HR 02/10/18 Folic Acid 1 mg PO DAILY 02/10/18 Losartan Potassium [Cozaar*] 50 mg PO BID 02/10/18 Ondansetron HCl 4 mg PO Q6HR PRN 02/10/18 Pramipexole Di-HCl [Pramipexole Dihydrochloride] 1 tab PO BEDTIME 02/10/18 Ranolazine [Ranexa] 500 mg PO BID 02/10/18 Venlafaxine HCl [Venlafaxine HCl ER] 150 mg PO BID 02/10/18 Ziprasidone HCl [Geodon*] 40 mg PO BID 02/10/18 - Past Medical/Surgical History Has patient received pneumonia vaccine in the past: Yes Diabetic: Yes -: DM-Type 2 -: HTN -: Hyperlipidemia -: Dementia, Parkinsons disease -: GERD -: ESRD, Nephrology-Dr. Leavitt, Dialysis-,Sun -: Restless leg syndrome -: COPD -: Depression, insomnia -: Anemia of chronic disease -: Normal-pressure hydrocephalus -: CAD, PUD -: Cardiac stents. -: Numerous back surgeries -: Congestive heart failure Psychosocial/ Personal History: He has a girlfriend. He has one daughter. He currently lives at the senior living - Family History Mother Medical History: Heart disease, Hypertension Father Medical History: Heart disease - Social History Smoking Status: Former smoker Alcohol use: No CD- Drugs: No Caffeine use: Yes Place of Residence: [facility] Review of Systems 10-point ROS is otherwise unremarkable Physical Examination - Vital Signs Temperature: 97.8 F Blood Pressure: 153/69 Pulse: 55 Respirations: 18 Pulse Ox (%): 95 - Physical Exam General: Alert, In no apparent distress, Oriented x3 HEENT: Atraumatic, PERRLA, Mucous membr. moist/pink, EOMI, Sclerae nonicteric Neck: Supple, 2+ carotid pulse no bruit, No LAD, Without JVD or thyroid abnormality Respiratory: Clear to auscultation bilaterally, Normal air movement Cardiovascular: Regular rate/rhythm, Normal S1 S2, No murmurs Gastrointestinal: Normal bowel sounds, Soft and benign, Non-distended, No tenderness Musculoskeletal: No clubbing, No swelling, No tenderness Integumentary: No rashes Neurological: Normal gait, Normal speech, Normal strength at 5/5 x4 extr, Normal tone, Sensation intact, Cranial nerves 3-12 intact, Normal affect Lymphatics: No axilla or inguinal lymphadenopathy - Studies Laboratory Data (last 24 hrs) 02/13/18 22:54: PT 12.5, INR 1.06, APTT 36.1 02/13/18 22:54: WBC 9.6 D, Hgb 9.0 L, Hct 27.7 L, Plt Count 171 02/13/18 22:54: B-Natriuretic Peptide 1166 H 02/13/18 22:54: Sodium 137, Potassium 4.7, BUN 44 H, Creatinine 4.95 H, Glucose 73, Magnesium 2.2, Total Bilirubin 0.7, AST 14, ALT 17, Alkaline Phosphatase 83 , Lipase 16 L Assessment & Plan - Problems (Diagnosis) (1) ESRD (end stage renal disease) Current Visit: Yes Status: Acute (2) COPD (chronic obstructive pulmonary disease) Current Visit: No Status: Acute (3) Bipolar disorder Onset Date: 05/04/17 Current Visit: No Status: Chronic (4) CAD (coronary artery disease) Onset Date: 12/24/17 Current Visit: No Status: Chronic Qualifiers: (5) CHF (congestive heart failure) Onset Date: 12/24/17 Current Visit: No Status: Chronic Qualifiers: (6) Chronic pain Onset Date: 01/10/17 Current Visit: No Status: Chronic Qualifiers: (7) Diabetes Onset Date: 12/24/17 Current Visit: No Status: Chronic - Plan Plan: 1. Nephrology consultation 2. Surgery consultation for dialysis catheter placement 3. Strict blood pressure blood sugar control 4. NPO 5. Monitor electrolytes 6. Monitor volume status 7. GI and DVT prophylaxis - Advance Directives Does patient have a Living Will: No Does patient have a Durable POA for Healthcare: No - Code Status/Comfort Care Code Status Assessed: Yes Code Status: Full Code Critical Care: No Time Spent Managing PTS Care (In Minutes): 45
[2018-02-14] MEDS ORDERED: CEFAZOLIN/SWI 1gm 1 GM/10 ML SYR ONE (10:56)
[2018-02-14] MEDS ORDERED: NA CHLORIDE 0.9% 500 ML ONE (10:56)
[2018-02-14] MEDS ORDERED: D50W 25 GM/50 ML SYRINGE IV ONE (11:08)
[2018-02-14] MEDS ORDERED: NS 0.9% VIAL 10 ML ONE (11:50)
[2018-02-14] MEDS ORDERED: LIDOCAINE 1% 20 ML MDV ONE (11:51)
[2018-02-14] MEDS ORDERED: NA CHLORIDE 0.9% 100 ML IV ONE (11:51)
[2018-02-14] MEDS ORDERED: HEPARIN 5000 UNIT/ML 1 ML VIAL ONE (11:51)
--- NOTE | 2018-02-14 12:21 | PREOPCON ---
Date of Consultation: 02/14/2018 Reason For Consultation: The patient needs dialysis and accidentally pulled out his previous Tesio c atheter. History Of Present Illness: The patient is a 57-year-old gentleman, who has a right IJ Tesio cathete r placed last year. He had no issues with it, however in sleep he accidently pulled out the Tesio ca theter and came to the ER. He needs dialysis, therefore I was consulted to put in the Tesio catheter . He is awake, alert. No fever or chills. No sore throat, runny nose, cough, headaches, or dizzine ss. No chest pain. Review of Systems: Otherwise unremarkable. Past Medical History: Significant for end-stage renal disease, diabetes, dementia, paraplegia, post laminectomy syndrome. Past Surgical History: Previous Sumit and Tesio catheter placement. Allergies: NO ALLERGIES. Social History: He does not smoke. Does not drink. Family History: Noncontributory. Physical Examination: Vital Signs: Stable. He is afebrile. General: He is awake, alert. Head and Neck: No masses. Chest: Clear. Heart: S1, S2. Abdomen: Soft. Extremities: Neurovascularly intact. Neuro: Nonfocal. There is a clean dressing on the right anterior chest where the catheter was pulled out. There is no evidence of any infection around. Assessment: End-stage renal disease with need for continued dialysis. Recommendations: We will proceed with placement of a new Tesio catheter. The patient understands th e risks, benefits, and alternatives and agrees to procedure. /MODL Voice ID: [id number] Report ID: [id number]
[2018-02-14] MEDS ORDERED: LIDOCAINE 2% MPF 5 ML VIAL ONE (12:23)
[2018-02-14] MEDS ORDERED: MIDAZOLAM HCL 2 MG/2 ML INJ ONE (12:23)
[2018-02-14] MEDS ORDERED: PROPOFOL 200 MG/20 ML VIAL IV ONE ×2 (12:23→13:02)
--- NOTE | 2018-02-14 13:15 | P.OP ---
Preoperative diagnosis: ESRD Postoperative diagnosis: same Primary procedure: RIHussain Acevedo Secondary procedure: fluoroscopy Anesthesia: MAC Estimated blood loss: min Specimen: none Findings: normal anatomy Complications: None Transferred to: Recovery Room Condition: Good
--- NOTE | 2018-02-14 14:18 | RAD REPORT ---
EXAM DESCRIPTION: RAD - Fluoroscopy <1 Hour - 02/14/2018 2:10 pm CLINICAL HISTORY: Device placement central venous catheter placement FINDINGS: A central venous catheter was placed into the superior vena cava. Multiple fluoroscopic sp ot images are submitted. The examination was performed by Dr. Huang
--- NOTE | 2018-02-14 15:18 | RAD REPORT ---
EXAM DESCRIPTION: RAD - Chest Single View - 02/14/2018 3:10 pm CLINICAL HISTORY: Device placement central venous catheter placement COMPARISON: February 13, 2018 FINDINGS: A central venous line with line has been inserted with its tip in the superior vena cava. A pneumothorax is not present. Bilateral pleural effusions right greater than left with right basilar atelectasis is noted. The hear t remains enlarged IMPRESSION: Central venous line with its tip in the superior vena cava. A pneumothorax is not prese nt
--- NOTE | 2018-02-14 15:41 | EKG ---
Test Date: 2018-02-13 Test Time: 22:02:09 Nuclear Station Operator: JANA MEASUREMENT RESULTS: Intervals: Rate: 47 WY: 158 QRSD: 138 QT: 524 QTc: 463 [place]: P: 20 WY: 158 QRS: 64 T: 43 INTERPRETIVE STATEMENTS: Marked sinus bradycardia Possible Left atrial enlargement Nonspecific intraventricular block Abnormal ECG Compared to ECG 02/08/2018 19:41:33 T-wave abnormality no longer present Myocardial infarct finding no longer present Electronically Signed On 02-14-18 15:37:53 CDT by Rafy Ascencio
[2018-02-14 21:45] LABS: Protime INR 1.05
[2018-02-14] MEDS ORDERED: ALPRAZOLAM 1 MG TABLET PO SCH (23:45)
[2018-02-14] MEDS ORDERED: FENTANYL 25 MCG/PATCH TD SCH (23:45)
[2018-02-15] MEDS ORDERED: DOXAZOSIN 2 MG TAB ONE ×2 (00:13→09:07)
[2018-02-15] MEDS: CLONIDINE HCL 0.3 MG TAB PO SCH ×3 (00:19→19:18)
--- NOTE | 2018-02-15 01:10 | OP ---
Date of Procedure: 02/14/2018 Surgeon: Davion Huang MD Preoperative Diagnosis: End-stage renal disease. Postoperative Diagnosis: End-stage renal disease. Procedures: Placement of right IJ Tesio catheter, interpretation of intraoperative fluoroscopy. Estimated Blood Loss: Minimal. Specimen: None. Findings: Normal anatomy. Anesthesia: MAC. Complications: None. Disposition: The patient tolerated the procedure in stable condition and was taken to Recovery in go od general condition. Procedure In Detail: The patient was brought to the OR and placed in the supine position. MAC anest hesia was begun. The patient was prepped and draped in usual sterile fashion. Lidocaine 1% infiltra florentin locally. An 18-gauge needle was used to access the right IJ vein. Guidewire was passed. Positi on was confirmed with fluoroscopy. Counterincision was made on the right anterior chest. Tunneling device was used to tunnel the catheter between the 2 wounds and then Seldinger technique used. Tip o f the catheter placed in the SVC, right atrial junction and catheter flushed with heparin and packed with heparin with good blood flow. Then, 3-0 chromic was used to approximate the subcutaneous tissue and 3-0 nylon used to secure the tube to the chest wall. Sterile dressing was applied. The patient was awakened and taken to Recovery in good general condition and chest x-ray has been ordered. BENNETT/BG Voice ID: [id number] Report ID: [id number]
[2018-02-15] MEDS: HYDROCODONE/APAP 7.5/325 MG TAB PO PRN ×2 (04:33→11:15)
[2018-02-15 05:11] VITALS: BMI 29.2
[2018-02-15 05:25] LABS: Absolute Lymphocytes (CBC) 0.9 K/uL (0.7-4.9); Absolute Monocytes 1.1 K/uL (0.1-1.3); Absolute Neutrophil 7.7 K/uL (1.8-8.0); Basophils % 0.6 % (0-1.3); Eosinophils % 1.7 % (0-4.4); Lymphocytes % 8.9 % (15.3-44.8); MCH 27.5 pg (27.0-35.0); MCV 82.9 fL (80-100); MPV 8.4 fL (7.6-11.3); Monocytes % 10.9 % (3.3-12.3); RBC Red Blood Cell Count 3.25 M/uL (4.33-5.43)
[2018-02-15 05:58] LABS: Anisocytosis 1+; Blood Morphology Comment NOTED (NOT SEEN); Macrocytosis SLIGHT; Ovalocytes SLIGHT; Platelet Estimate ADEQ; Urine White Blood Cell Casts OK
[2018-02-15] MEDS: INSULIN -REGULAR HUMAN 50 UNIT/0.5 ML ML SQ SCH ×3 (07:30→16:30)
[2018-02-15 07:56] VITALS: O2SAT 96
[2018-02-15] MEDS ORDERED: VENLAFAXINE HCL 75 MG TABLET PO SCH (09:00)
[2018-02-15] MEDS ORDERED: CARVEDILOL 25 MG TAB PO SCH (09:00)
[2018-02-15] MEDS ORDERED: ZIPRASIDONE 20 MG CAP PO SCH (09:00)
[2018-02-15] MEDS ORDERED: DOXAZOSIN 4 MG TAB PO SCH (09:00)
[2018-02-15] MEDS ORDERED: FOLBIC 1 TAB PO SCH (09:00)
[2018-02-15] MEDS ORDERED: ZIPRASIDONE 40 MG CAP PO SCH (09:00)
[2018-02-15 12:10] VITALS: BP 150/77; TEMP 97.8
--- NOTE | 2018-02-15 14:00 | P.SSS ---
Patient History Date of Service: 02/15/18 Reason for admission: Removed hemodialysis catheter History of Present Illness: Patient is a 57-year-old gentleman who came into the hospital after he removed his hemodialysis catheter at the [facility]. Patient has been a renal patient for a long time. Patient is on hemodialysis currently. Patient has had multiple hospital admissions in the last couple of years. Patient came in after he removed the catheter for replacement of hemodialysis catheter. Allergies No Known Drug Allergies Allergy (Verified 02/09/18 01:19) Unknown No Known Allergies Allergy (Uncoded 02/09/18 01:19) Unknown Home Medications: Albuterol Inhaler [Ventolin Inhaler*] 2 puff IH QID 02/09/18 Alprazolam [Xanax] 0.5 mg PO BEDTIME 02/09/18 Alprazolam [Xanax] 1 mg PO T,TH,S 02/09/18 Clonidine HCl [Catapres*] 0.3 mg PO TID 02/09/18 Fentanyl 25 mcg TD Q72H 02/09/18 Furosemide 40 mg PO BID 02/09/18 Gabapentin [Neurontin*] 100 mg PO BID 02/09/18 Hydrocodone Bit/Acetaminophen [Hydrocodon-Acetaminoph 7.5-325] 1 each PO Q6HP PRN 02/09/18 Insulin NPH Human [Novolin N (Humulin N)*] 7 units SQ BID 02/09/18 Ipratropium/Albuterol Sulfate [Iprat-Albut 0.5-3(2.5) mg/3 ml] 3 ml IH Q6HP PRN 02/09/18 Nifedipine [Nifedipine ER] 90 mg PO Q12H 02/09/18 Nitroglycerin 0.4 mg SL Q5MX3 PRN 02/09/18 Vit D3/Folic Acid/B2/B6/B12 [Folgard Tablet] 1 each PO DAILY 02/09/18 Atorvastatin Calcium [Lipitor*] 1 tab PO BEDTIME 02/10/18 Calcitriol [Rocaltrol] 1 cap PO DAILY 02/10/18 Carvedilol [Coreg*] 25 mg PO BID 02/10/18 Donepezil HCl [Aricept] 10 mg PO BEDTIME 02/10/18 Doxazosin Mesylate 4 mg PO Q12HR 02/10/18 Folic Acid 1 mg PO DAILY 02/10/18 Losartan Potassium [Cozaar*] 50 mg PO BID 02/10/18 Ondansetron HCl 4 mg PO Q6HR PRN 02/10/18 Pramipexole Di-HCl [Pramipexole Dihydrochloride] 1 tab PO BEDTIME 02/10/18 Ranolazine [Ranexa] 500 mg PO BID 02/10/18 Venlafaxine HCl [Venlafaxine HCl ER] 150 mg PO BID 02/10/18 Ziprasidone HCl [Geodon*] 40 mg PO BID 02/10/18 - Past Medical/Surgical History Has patient received pneumonia vaccine in the past: Yes Diabetic: Yes -: DM-Type 2 -: HTN -: Hyperlipidemia -: Dementia, Parkinsons disease -: GERD -: ESRD, Nephrology-Dr. Leavitt, Dialysis-,Sun -: Restless leg syndrome -: COPD -: Depression, insomnia -: Anemia of chronic disease -: Normal-pressure hydrocephalus -: CAD, PUD -: Cardiac stents. -: Numerous back surgeries -: Congestive heart failure Psychosocial/ Personal History: He has a girlfriend. He has one daughter. He currently lives at the [facility] - Family History Mother -: Heart disease, Hypertension Father -: Heart disease - Social History Smoking Status: Former smoker Alcohol use: No CD- Drugs: No Caffeine use: Yes Place of Residence: [facility] Review of Systems 10-point ROS is otherwise unremarkable Physical Examination - Vital Signs Temperature: 97.8 F Blood Pressure: 150/77 Pulse: 59 Respirations: 18 Pulse Ox (%): 98 - Physical Exam General: Alert, In no apparent distress HEENT: Atraumatic, PERRLA, Mucous membr. moist/pink, EOMI, Sclerae nonicteric Neck: Supple, 2+ carotid pulse no bruit, No LAD, Without JVD or thyroid abnormality Respiratory: Clear to auscultation bilaterally, Normal air movement Cardiovascular: Regular rate/rhythm, Normal S1 S2 Gastrointestinal: Normal bowel sounds, No tenderness Musculoskeletal: No tenderness Integumentary: No rashes Neurological: Normal gait, Normal speech, Normal strength at 5/5 x4 extr, Normal tone, Normal affect Lymphatics: No axilla or inguinal lymphadenopathy - Diagnosis (Problem(s)) (1) Displacement of vascular dialysis catheter, initial encounter Current Visit: Yes Status: Acute (2) ESRD (end stage renal disease) Onset Date: 02/14/18 Current Visit: Yes Status: Chronic (3) COPD (chronic obstructive pulmonary disease) Current Visit: No Status: Acute Qualifiers: COPD type: unspecified COPD Qualified Code(s): J44.9 - Chronic obstructive pulmonary disease, unspecified (4) Bipolar disorder Onset Date: 05/04/17 Current Visit: No Status: Chronic Qualifiers: Active/Remission status: remission status unspecified Qualified Code(s): F31.9 - Bipolar disorder, unspecified (5) CAD (coronary artery disease) Onset Date: 12/24/17 Current Visit: No Status: Chronic Qualifiers: Coronary Disease-Associated Artery/Lesion type: [place] artery [place] vs. transplanted heart: eagle heart Associated angina: without angina Qualified Code(s): I25.10 - Atherosclerotic heart disease of eagle coronary artery without angina pectoris (6) CHF (congestive heart failure) Onset Date: 12/24/17 Current Visit: No Status: Chronic Qualifiers: Heart failure type: unspecified Heart failure chronicity: chronic Qualified Code(s): I50.9 - Heart failure, unspecified (7) Diabetes Onset Date: 12/24/17 Current Visit: No Status: Chronic Qualifiers: Diabetes mellitus type: type 2 Diabetes mellitus assisted insulin use: without dedicated intermodal truck driver use Diabetes mellitus complication status: without complication Qualified Code(s): E11.9 - Type 2 diabetes mellitus without complications Treatment Summary: Overall during the hospital stay patient remained stable The patient was initially admitted to the hospital for dialysis catheter displacement. Patient the [facility] without his dialysis catheter and was practically over to the hospital to get a replaced. Surgery was consulted who reinserted dialysis catheter patient had a dialysis done here in the hospital without any complications thus was discharged home under stable condition - Disposition Disposition: ROUTINE DISCHARGE Condition: GOOD Diet: Regular Activity: Ad summer
--- NOTE | 2018-02-15 14:13 | PN ---
Date of Progress Note: 02/15/2018 The patient had some bleeding from the insertion site of the Tesio catheter last night. I was contac florentin and Surgicel and checked the PT/INR and the H and H, which were all stable. Pressure dressing was applied. This morning I examined the wound. He is awake, alert. Hemoglobin was 8.9 an d preoperatively was 9.0. There was some clotted blood around the entrance site, which was removed. There was no evidence of any oozing or bleeding noted. This morning a sterile dressing was applied the patient is cleared for dialysis. Objective: Vital Signs: Stable, afebrile. Physical exam as above. Assessment And Plan: Cleared for dialysis. /MODL Voice ID: [id number] Report ID: [id number]
[2018-02-15] MEDS ORDERED: CEFAZOLIN/NS 1gm 1 GM/50 ML BAG IVPB ONE (14:20)
[2018-02-15] MEDS ORDERED: CEFAZOLIN/SWI 1gm 1 GM/10 ML SYR IV SCH (14:30)
--- NOTE | 2018-02-15 17:28 | P.CNS ---
Date of Consult: 02/14/18 Reason for Consult: ESRD Requesting Physician: Valery Norman Chief Complaint: Removed hemodialysis catheter History of Present Illness: Patient is a 57-year-old gentleman who came into the hospital after he removed his hemod[facility] catheter [facility] the [facility]. Patient has been a renal patient for a long time. Patient is on hemodialysis currently. Patient has had multiple hospital admissions in the last couple of years. Patient came in after he removed the catheter for replacement of hemodialysis catheter. 00:02 This 57 yrs old Male presents to ER via EMS with complaints of pulled out alondra dialysis catheter. 00:02 The patient or guardian reports chest pain that is located primarily in the anterior alondra chest wall. Onset: The symptoms/episode began/occurred just prior to arrival. The pain does not radiate. Associated signs and symptoms: The patient has no apparent associated signs or symptoms. The chest pain is described as sharp. Modifying factors : The symptoms are alleviated by nothing. the symptoms are aggravated by palpation of area. Severity of pain: At its worst the pain was moderate in the emergency department the pain has improved moderately. The patient has not experienced similar symptoms in the past. Allergies No Known Drug Allergies Allergy (Verified 02/09/18 01:19) Unknown No Known Allergies Allergy (Uncoded 02/09/18 01:19) Unknown Home medications list reviewed: Yes Home Medications: Albuterol Inhaler [Ventolin Inhaler*] 2 puff IH QID 02/09/18 Alprazolam [Xanax] 0.5 mg PO BEDTIME 02/09/18 Alprazolam [Xanax] 1 mg PO T,TH,S 02/09/18 Clonidine HCl [Catapres*] 0.3 mg PO TID 02/09/18 Fentanyl 25 mcg TD Q72H 02/09/18 Furosemide 40 mg PO BID 02/09/18 Gabapentin [Neurontin*] 100 mg PO BID 02/09/18 Hydrocodone Bit/Acetaminophen [Hydrocodon-Acetaminoph 7.5-325] 1 each PO Q6HP PRN 02/09/18 Insulin NPH Human [Novolin N (Humulin N)*] 7 units SQ BID 02/09/18 Ipratropium/Albuterol Sulfate [Iprat-Albut 0.5-3(2.5) mg/3 ml] 3 ml IH Q6HP PRN 02/09/18 Nifedipine [Nifedipine ER] 90 mg PO Q12H 02/09/18 Nitroglycerin 0.4 mg SL Q5MX3 PRN 02/09/18 Vit D3/Folic Acid/B2/B6/B12 [Folgard Tablet] 1 each PO DAILY 02/09/18 Atorvastatin Calcium [Lipitor*] 1 tab PO BEDTIME 02/10/18 Calcitriol [Rocaltrol] 1 cap PO DAILY 02/10/18 Carvedilol [Coreg*] 25 mg PO BID 02/10/18 Donepezil HCl [Aricept] 10 mg PO BEDTIME 02/10/18 Doxazosin Mesylate 4 mg PO Q12HR 02/10/18 Folic Acid 1 mg PO DAILY 02/10/18 Losartan Potassium [Cozaar*] 50 mg PO BID 02/10/18 Ondansetron HCl 4 mg PO Q6HR PRN 02/10/18 Pramipexole Di-HCl [Pramipexole Dihydrochloride] 1 tab PO BEDTIME 02/10/18 Ranolazine [Ranexa] 500 mg PO BID 02/10/18 Venlafaxine HCl [Venlafaxine HCl ER] 150 mg PO BID 02/10/18 Ziprasidone HCl [Geodon*] 40 mg PO BID 02/10/18 - Past Medical/Surgical History Diabetic: Yes -: DM-Type 2 -: HTN -: Hyperlipidemia -: Dementia, Parkinsons disease -: GERD -: ESRD, Nephrology-Dr. Leavitt, Dialysis-,Sun -: Restless leg syndrome -: COPD -: Depression, insomnia -: Anemia of chronic disease -: Normal-pressure hydrocephalus -: CAD, PUD -: Cardiac stents. -: Numerous back surgeries -: Congestive heart failure Psychosocial/ Personal History: He has a girlfriend. He has one daughter. [facility] lives [facility] the [facility] - Family History Mother Medical History: Heart disease, Hypertension Father Medical History: Heart disease - Social History Smoking Status: Unknown if ever smoked Alcohol use: No CD- Drugs: No Caffeine use: Yes Place of Residence: [facility] Review of Systems 10-point ROS is otherwise unremarkable General: Weakness, Malaise Physical Examination Temp Pulse Resp BP Pulse Ox 97.8 F 59 18 150/77 H 98 02/15/18 14:00 02/15/18 14:00 02/15/18 14:00 02/15/18 14:00 02/15/18 14:00 General: Oriented x3, Cooperative HEENT: Atraumatic, Mucous membr. moist/pink Neck: Supple Respiratory: Clear to auscultation bilaterally Cardiovascular: No edema, Regular rate/rhythm, No rubs Gastrointestinal: Soft and benign, Non-distended, No ascites Musculoskeletal: No clubbing, No contractures Integumentary: No rashes, No cyanosis Neurological: Normal speech Blood work reviewed in the chart. Initial labs: BUN 44; Creatinine 4.95 Imagings Data: EXAM DESCRIPTION: RAD - Chest Single View - 02/13/2018 10:33 pm CLINICAL HISTORY: Shortness of breath COMPARISON: 02/08/2018 FINDINGS: Portable technique limits examination quality. Mild interstitial pulmonary edema suspected. Bilateral pleural effusions are likely present, greater on the right. The heart is mildly prominent in size. No displaced fractures. IMPRESSION: Bilateral pleural effusions, slightly greater on the right. Conclusions/Impression: A/ ESRD on HD. HTN with CKD. DM II with CKD. Anemia in CKD. Diastolic CHF, chronic. JACOB/ Secondary HyperPTH. P/ Continue current POC and Medications. Arrange for HD tunneled catheter replacement to resume HD. Arrange acute HD once access is available. Restart home medications as indicated. Transfuse PRBC as needed. Monitor H&H. No NSAIDs. AM labs. Daily weight. Thank you kindly for the consultation.
--- NOTE | 2018-02-15 17:32 | P.PN ---
Date of Service: 02/15/18 Vital Signs Temp Pulse Resp BP Pulse Ox 97.8 F 59 18 150/77 H 98 02/15/18 14:00 02/15/18 14:00 02/15/18 14:00 02/15/18 14:00 02/15/18 14:00 Medications Acetaminophen (Tylenol -Extra Strength) 500 mg PO Q6H PRN PRN Reason: [id number] Stop: 03/16/18 00:46 Hydrocodone Bitart/Acetaminophen ([place] 7.5/325 Mg) 1 tab PO Q6HP PRN PRN Reason: PAIN Stop: 03/16/18 23:55 Last Admin: 02/15/18 11:15 Dose: 1 tab Alprazolam (Xanax) 0.5 mg PO BEDTIME RUBY Stop: 03/17/18 21:01 Last Admin: 02/15/18 00:20 Dose: 0.5 mg Alprazolam (Xanax) 1 mg PO TuThSa@2000 RUBY Stop: 03/16/18 23:46 Carvedilol (Coreg) 25 mg PO BID RUBY Stop: 03/17/18 09:01 Last Admin: 02/15/18 04:32 Dose: 25 mg Clonidine HCl (Catapres) 0.3 mg PO TID RUBY Stop: 03/17/18 09:01 Last Admin: 02/15/18 09:15 Dose: 0.3 mg Dextrose (Dextrose 50% Syringe) 12.5 gm IV PRN PRN; Protocol PRN Reason: HYPOGLYCEMIA Stop: 03/16/18 20:43 Doxazosin Mesylate (Cardura) 4 mg PO Q12HR RUBY Stop: 03/17/18 09:01 Last Admin: 02/15/18 09:15 Dose: 4 mg Epoetin Jg (Procrit) 10,000 unit IV EVERY HD RUBY Stop: 03/16/18 08:31 Last Admin: 02/15/18 14:50 Dose: 10,000 unit Fentanyl (Duragesic Patch) 25 mcg TD Q72H RUBY Stop: 03/16/18 23:46 Last Admin: 02/15/18 00:19 Dose: 25 mcg Folic Acid (Folbic) 1 tab PO DAILY RUBY Stop: 03/17/18 09:01 Last Admin: 02/15/18 09:14 Dose: 1 tab Glucagon (Glucagen) 1 mg IM 1X PRN; Protocol PRN Reason: HYPOGLYCEMIA Stop: 03/16/18 20:43 Heparin Sodium (Porcine) (Heparin 1,000 Units/Ml) 6,000 unit IV EVERY HD PRN PRN Reason: FLUSH AFTER EACH USE Stop: 03/17/18 14:31 Albumin Human (Albumin 25%) 50 mls @ 100 mls/hr IV EVERY HD RUBY Stop: 03/16/18 09:01 Cefazolin Sodium (Ancef 1 Gm/10 Ml Swi Ivp) 1 gm in 10 mls @ 200 mls/hr IV OC RUBY Stop: 02/16/18 14:31 Insulin Human Regular (Novolin -R) 0 unit SQ ACHS RUBY PRN Reason: Protocol Stop: 03/16/18 21:01 Last Admin: 02/15/18 11:30 Dose: Not Given Mannitol (Mannitol 12.5 Gm/50 Ml Vial) 12.5 gm IV EVERY HD PRN PRN Reason: BP support at hemodialysis Stop: 03/16/18 08:26 Morphine Sulfate (Morphine Sulfate) 2 mg IV Q4H PRN PRN Reason: PAIN MODERATE TO SEVERE Stop: 03/16/18 07:13 Last Admin: 02/14/18 20:43 Dose: 2 mg Ondansetron HCl (Zofran) 4 mg IV Q4H PRN PRN Reason: NAUSEA / VOMITING Stop: 03/16/18 00:46 Ranolazine (Ranexa) 500 mg PO BID RUBY Stop: 03/17/18 09:01 Last Admin: 02/15/18 09:15 Dose: 500 mg Sodium Chloride (Normal Saline Flush) 10 ml IV BID RUBY Stop: 03/16/18 09:01 Last Admin: 02/15/18 09:00 Dose: 10 ml Venlafaxine HCl (Effexor) 150 mg PO BID RUBY Stop: 03/17/18 09:01 Last Admin: 02/15/18 09:14 Dose: 150 mg Ziprasidone (Geodon) 40 mg PO BID RUBY Stop: 03/17/18 09:01 Last Admin: 02/15/18 09:15 Dose: 40 mg Assessment/ Plan: Nephrology. Acute HD held last night due to excessive bleeding at the catheter site. CPS stable today without CP or SOB. Malaise with non-specific complaints. +Appetite Vitals, medications, blood work and imaging reviewed in the chart. General: Oriented x3, Cooperative HEENT: Atraumatic, Mucous membr. moist/pink Neck: Supple Respiratory: Clear to auscultation bilaterally Cardiovascular: No edema, Regular rate/rhythm, No rubs Gastrointestinal: Soft and benign, Non-distended, No ascites Musculoskeletal: No clubbing, No contractures Integumentary: No rashes, No cyanosis Neurological: Normal speech Blood work reviewed in the chart. Initial labs: BUN 44; Creatinine 4.95 Imagings Data: EXAM DESCRIPTION: RAD - Chest Single View - 02/13/2018 10:33 pm CLINICAL HISTORY: Shortness of breath COMPARISON: 02/08/2018 FINDINGS: Portable technique limits examination quality. Mild interstitial pulmonary edema suspected. Bilateral pleural effusions are likely present, greater on the right. The heart is mildly prominent in size. No displaced fractures. IMPRESSION: Bilateral pleural effusions, slightly greater on the right. Conclusions/Impression: A/ ESRD on HD. HTN with CKD. DM II with CKD. Anemia in CKD. Diastolic CHF, chronic. JACOB/ Secondary HyperPTH. P/ Continue current POC and Medications. Acute HD ordered for today. Transfuse PRBC as needed. Monitor H&H. No NSAIDs. AM labs. Daily weight. Case discussed with Dr. Norman; possible discharge today following dialysis.
[2018-02-15] MEDS ORDERED: ALPRAZOLAM 0.5 MG TABLET PO SCH (21:00)
[2018-02-16] MEDS ORDERED: ALPRAZOLAM 1 MG TABLET PO SCH (20:00)
== END 2018-02-15 19:55 ==
LOC: ER 21:51 → INTOOBSV 02-14 00:10 → ERHOLD 02-14 00:10 → 2ND 02-14 01:29
PROVIDERS: ADMIT Hospitalist; ATTEND Hospitalist
PROC: B513ZZA Fluoroscopy of Right Jugular Veins, Guidance (ICD-10-PCS; 2018-02-14)
PROC: 05HM33Z Insertion of Infusion Device into Right Internal Jugular Vein, Percutaneous Approach (ICD-10-PCS; principal; 2018-02-14 12:00)
PROC: 5A1D70Z Performance of Urinary Filtration, Intermittent, Less than 6 Hours Per Day (ICD-10-PCS; 2018-02-15)
DX: T82.42XA Displacement of vascular dialysis catheter, initial encounter (principal); I13.2 Hypertensive heart and chronic kidney disease with heart failure and with stage 5 chronic kidney disease, or end stage renal disease; E11.22 Type 2 diabetes mellitus with diabetic chronic kidney disease; N18.6 End stage renal disease; I50.32 Chronic diastolic (congestive) heart failure; J44.9 Chronic obstructive pulmonary disease, unspecified; F31.9 Bipolar disorder, unspecified; I25.10 Atherosclerotic heart disease of native coronary artery without angina pectoris
CPT/HCPCS: 36415; 71045; 71250; 76000; 80048; 80076; 82550; 82553; 82962; 83690; 83735; 83880; 84484; 85025; 85610; 85730; 86850; 86900; 86901; 87040; 90935; 93005; 96365; 99285; C1752; G0378; J0690; J1644; J2250; J2270; J2543; Q4081

== ENCOUNTER 2018-02-27 02:50 | Observation (INO) | payer MEDICAID ==
--- OUTSIDE RECORDS SUMMARY | 2018-02-27 02:52 | XMS REPORT | Clinical Summary ---
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 Paraplegic spinal paralysis ([facility]) 12/26/2016 Sacral decubitus ulcer 12/26/2016 ESRD on hemodialysis ([facility]) 12/26/2016 Acute bilateral low back pain without sciatica 11/30/2016 Back pain 11/29/2016 Complications, dialysis, catheter, mechanical ([facility]) 04/06/2016 Angina effort ([facility]) 09/04/2014 CAD (coronary artery disease) 09/04/2014 Social History Tobacco Use Types Packs/Day Years Used Date Former Smoker 0 Alcohol Use Drinks/Week oz/Week Comments No Sex Assigned at Date Recorded Not on file Last Filed Vital Signs Not on file Plan of Treatment Not on file Implants Implanted Type Area Med Surg Rn Device Expiration Model / Identifier Date Serial / Lot Infusion Set Bone Infuseii Lg [id number] - [id number] Bone N/A: MEDTRONIC: SPINAL 08/22/2018 [id number] / Implanted: Qty: 1 on 12/12/2016 by Eduardo Ruggiero MD Spine BIOLOGICS / Lumbar [id number] Matrix Floseal Hemo W/O Ndl 10 [id number] - [id number] Cement/Fi N/A: MA: BIOSCI 04/20/2019 [id number] / Implanted: Qty: 2 on 12/12/2016 by Eduardo Ruggiero MD ller/Terrance Spine / sive Lumbar [id number] Bone Putty Stimulan tristar [facility] 620-010 - [id number] Cement/Fi N/A: BIOCOMPOSITES 08/21/2019 [id number] / Implanted: Qty: 1 on 12/12/2016 by Eduardo Ruggiero MD ller/Terrance Spine / sive Lumbar 08/06-R300/301 Connector Set Screw Joints N/A: MEDTRONIC [id number] / Implanted: Qty: 1 on 12/12/2016 by Eduardo Ruggiero MD Spine / Lumbar Scr Mas 8.5x90 [id number] - [id number] Spine N/A: MEDTRONIC:SPINE: [id number] / Implanted: Qty: 1 on 12/12/2016 by Eduardo Ruggiero MD Spine SOFAMOR DANEK / Lumbar [id number] Ballast Mas 8.5x80 Spine N/A: MEDTRONIC [id number] / Implanted: Qty: 1 on 12/12/2016 by Eduardo Ruggiero MD Spine / Lumbar [id number] Taco [id number] Spine N/A: MEDTRONIC [id number] / Implanted: Qty: 2 on 12/12/2016 by Eduardo Ruggiero MD Spine / Lumbar [id number] Connector 20mm Spine N/A: MEDTRONIC [id number] / Implanted: Qty: 1 on 12/12/2016 by Eduardo Ruggiero MD Spine / Lumbar Medtronic Sofamor Danek 10cc Sprinal Graft Spine N/A: MEDTRONIC 2017 [id number] / Implanted: Qty: 1 on 12/12/2016 by Eduardo Ruggiero MD Spine [id number] / Lumbar Medtronic Sofamor Daek Orthoblend Small 10cc Spine N/A: MEDTRONIC 2017 [id number] / Implanted: Qty: 1 on 12/12/2016 by Eduardo Ruggiero MD Spine [id number] / Lumbar Medtronic Sofarmor Danek Orthoblend Small 10cc Spine N/A: MEDTRONIC [id number] / Implanted: Qty: 1 on 12/12/2016 by Eduardo Ruggiero MD Spine [id number] / Lumbar Screw Set Ti Ns Brk Off 5.5 - [id number] Spine N/A: MEDTRONIC:SPINAL [id number] / Implanted: Qty: 6 on 12/12/2016 by Eduardo Ruggiero MD Spine BIOLOGICS / Lumbar [id number] Screw Mas Cc 7.5x50 [id number] - [id number] Spine N/A: MEDTRONIC:SPINAL [id number] / Implanted: Qty: 2 on 12/12/2016 by Eduardo Ruggiero MD Spine BIOLOGICS / Lumbar [id number] Screw [facility] Cc 7.5 X 45 [id number] - [id number] Spine N/A: MEDTRONIC:SPINAL [id number] / Implanted: Qty: 2 on 12/12/2016 by Eduardo uRggiero MD Spine BIOLOGICS / Lumbar [id number] Results Not on fileafter 02/26/2017
--- OUTSIDE RECORDS SUMMARY | 2018-02-27 02:57 | XMS REPORT ---
:1960 [facility] Address [address] [place] [address] Care Team Providers Name Role Phone KENJUAN ALBERTO MARYELLEN Crowley Unavailable Unavailable JESSIKA HUMPHREY Unavailable Unavailable Problems This patient has no known problems. Allergies, Adverse Reactions, Alerts This patient has no known allergies or adverse reactions. Medications This patient has no known medications. Results Test Description Test Time Test Comments Text Results Atomic Results Result Comments METHYLMALONIC ACID 2017-06-21 07:36:00 Test Item Value Reference Range Comments METHYLMALONIC ACID, SERUM (test zkbq=085243) 603 nmol/L 0-378 PERFORMED AT: [facility] [id number] ASSISTANT PRESS OPERATOR: Donnie Youssef MD PHONE: [phone], [id number] 06:50:00To start 15mins after 1st cultureSpecimen: BloodCollected: 2016 01:33 Status: Final Last Updated: 06/21/2017 06:49 (1) To start 15mins after 1st culture Culture Result (Final) (Final) No Growth After 5 DaysCULTURE, [id number] 06:50:00Specimen: BloodCollected: 06/16/2017 01: 20 Status: Final Last Updated: 06/21/2017 06:49 Culture Result (Final) ( Final) No Growth After 5 [id number] 09:05:00 Test Item Value Reference Range Comments [...] mL/min/1.73m\\S\\2 EGFR if Non- 17 Estimated Glomerular [place] (test mL/min/1.73m\\S\\2 Filtration Rate (eGFR) code=EGFRNA) Reference [...] of chronic kidney failure. CBC WITH AUTO [id number] 08:50:00 Test Item Value Reference Range Comments [...] code=IG%) 0.7 % 0.0-0.4 CBC WITH AUTO [id number] 01:49:00 Test Item Value Reference Range Comments [...] code=IG%) 0.9 % 0.0-0.4 CBC WITH AUTO [id number] 20:08:00 Test Item Value Reference Range Comments [...] code=IG%) 0.7 % 0.0-0.4 CBC WITH AUTO [id number] 13:58:00 Test Item Value Reference Range Comments [...] 1.0-3.0 IG% (test code=IG%) 0.7 % 0.0-0.4 [id number] 09:14:00 Test Item Value Reference Range Comments [...] mL/min/1.73m\\S\\2 EGFR if Non- 16 Estimated Glomerular [place] (test mL/min/1.73m\\S\\2 Filtration Rate (eGFR) code=EGFRNA) Reference [...] of chronic kidney failure. CBC WITH AUTO [id number] 09:05:00 Test Item Value Reference Range Comments [...] code=IG%) 0.7 % 0.0-0.4 CBC WITH AUTO [id number] 02:17:00 Test Item Value Reference Range Comments [...] code=IG%) 0.7 % 0.0-0.4 CBC WITH AUTO [id number] 20:02:00 Test Item Value Reference Range Comments [...] code=IG%) 0.8 % 0.0-0.4 CBC WITH AUTO [id number] 14:17:00 Test Item Value Reference Range Comments [...] 1.0-3.0 IG% (test code=IG%) 0.9 % 0.0-0.4 [id number] 08:47:00 Test Item Value Reference Range Comments Magnesium (test code=MG) 1.9 mg/dl 1.6-2.3 [id number] 08:47:00 Test Item Value Reference Range Comments [...] mL/min/1.73m\\S\\2 EGFR if Non- 17 Estimated Glomerular [place] (test mL/min/1.73m\\S\\2 Filtration Rate (eGFR) code=EGFRNA) Reference [...] of chronic kidney failure. CBC WITH AUTO [id number] 08:22:00 Test Item Value Reference Range Comments [...] code=IG%) 0.8 % 0.0-0.4 CBC WITH AUTO [id number] 03:42:00 Test Item Value Reference Range Comments [...] on ############### was changed to 1 by [id number] on 06/17/2017 03:42 Neutrophils (test 68 % 42-75 The value no value code=NEUTR) originally released by on ############### was changed to 68 by [id number] on 06/17/2017 03:42 Lymphocytes (test 16 % 13-42 The value no value code=LYMPH) originally released by on ############### was changed to 16 by [id number] on 06/17/2017 03:42 Monocytes (test 11 % 4-14 The value no value code=MONOS) originally released by on ############### was changed to 11 by [id number] on 06/17/2017 03:42 Eosinophils (test 3 % 1-3 The value no value code=EOS) originally released by on ############### was changed to 3 by [id number] on 06/17/2017 03:42 Basophils (test 1 % 0-1 The value no value code=BASO) originally released by on ############### was changed to 1 by [id number] on 06/17/2017 03:42 RBC Morphology (test Anisocytosis The value no value code=RBCMOR) Hypochromic originally released by on ############### was changed to Anisocytosis Hypochromic by [id number] on 06/17/2017 03:42 Platelet Morphology Giant platelets The value no value (test code=PLTMORPH) originally released by on ############### was changed to Giant platelets by [id number] on 06/17/2017 03:42 CBC WITH AUTO [id number] 19:54:00 Test Item Value Reference Range Comments [...] code=IG%) 0.8 % 0.0-0.4 CBC WITH AUTO [id number] 14:30:00 Test Item Value Reference Range Comments [...] code=IG%) 1.0 % 0.0-0.4 CBC WITH AUTO [id number] 07:35:00 Test Item Value Reference Range Comments [...] code=IG%) 1.2 % 0.0-0.4 HEP B SURFACE [id number] 07:14:00 Test Item Value Reference Range Comments [...] code=HBSAG) Negative (qualifier Negative value) TYPE & [id number] 04:15:00 Test Item Value Reference Range Comments ABO Blood Type (test code=ABO) O Rh (test code=RH) Positive Antibody Screen (test code=ABSCR) Negative Negative ARMBAND# (test code=ARMBAND) [id number] PRO-BNP(B-Type Natriuretic Peptide)2017-06-16 03:42:00 Test Item Value Reference Range Comments Pro-BNP(B-Peptide) 21494 pg/ml 0-125 THE METHODOLOGY FOR DETECTION OF [...] TIBC (test code=TIBC) 161 ug/dl 178-500 B12, [id number] 03:32:00 Test Item Value Reference Range Comments B12 (test code=B12) 717 pg/ml 239-941 [id number] 03:32:00 Test Item Value Reference Range Comments Folic Acid (test code=FOLIC) 5.35 ng/ml 2.76-20.00 IRON [id number] 03:32:00 Test Item Value Reference Range Comments Iron (test code=FETOT) 33 ug/dl 20-149 TIBC (test code=TIBC) 161 ug/dl 178-500 Iron Saturation (test code=FESAT) 20 % 16-62 [id number] 03:05:00 Test Item Value Reference Range Comments [...] (test code=BGCTHB) 9.6 gm/dl 11.5-17.4 O2Hb (test code=BDJH7DE) 94.7 % 95.0-99.0 COHb (test code=BGFCOHB) <2.8 % 0.5-2.5 MetHB (test code=BGMETHB) <1.3 % 0.4-1.5 Gluc (test code=BGCGLU) 107.0 mg/dl 60.0-110.0 Lac (test code=BGCLAC) <1.6 mmol/l 1.0-1.7 Barometric Pressure (test code=BGBARO) 763.0 mm Hg 450.0-1000.0 BE(act) (test code=BGBEACT) -1 mmol/l HCO3 (test code=BGHCO3) 23 meq/L 22-26 ctCO2(B) (test code=BGCTCO2(B)) 21 mmol/l FIO2 (fO2(I) (test code=BGFIO2) 0.21 % Drawn By (test code=BGDRAWNBY) LUCY GAMBLE Collection Date (test code=BGDTCOL) 06/16/2017 Collection Time (test code=BGCTM) 03:03 Sample Site (test code=BGSAMPLESITE) R Brachial Sample Type (test code=BGSAMPLETYPE) Arterial Allens Test (test code=BGALLEN) Acceptable Notified By (test code=BGNOTIFIEDBY) LUCY GAMBLE Notified Whom (test code=BGNOTIFIEDWHOM) RN Date Notified (test code=BGDTNOTIFIED) 06/16/2017 Time Notified (test code=BGTMNOTIFIED) 03:03 O2 Device (test code=BDS5INO3) ROOM AIR Instrument ID (test code=BGINSTRID) [id number] Reported By (test code=BGREPORTEDBY) LUCY GAMBLE GLYCOSALATED [id number] 02:39:00 Test Item Value Reference Range Comments Hemoglobin A1C (test 5.78 % 4.3-6.0 code=GLYCO) Mean Plasma Glucose (test 128 mg/dl 90-180 WHEN TEST RESULTS FOR A1C code=MPG) EXCEED 14.0, THE LINEAR LIMIT OF THE INSTRUMENT, THE CALCULATED RESULT FOR THE MEAN GLUCOSE IS NOT RELIABLE. CORONARY [id number] 02:22:00 Test Item Value Reference Range Comments [...] vLDL (test code=VLDL) 16 mg/dl 30-60 VANCOMYCIN, [id number] 02:19:00 Test Item Value Reference Range Comments Vancomycin, Trough (test 7.7 ug/ml 15.0-20.0 05/13/2009 Change in Therapeutic code=VANCT) Range, for Trough Level, has been implemented per P&T committee. INTERPRETATION GUIDE: CONSIDER SENSITIVITY REPORT IF NGUYEN IS=1 THERAPEUTIC RANGE IS 15-20 ug/ml IF NGUYEN IS > OR=2 CONSIDER ALTERNATE THERAPY [id number] 02:05:00 Test Item Value Reference Range Comments [...] mL/min/1.73m\\S\\2 EGFR if Non- 23 Estimated Glomerular [place] (test mL/min/1.73m\\S\\2 Filtration Rate (eGFR) code=EGFRNA) Reference Intervals Decision Points for 18 years and older and average body mass: >=60 Does not exclude kidney disease. 30 - 59 Suggests moderate chronic kidney disease and indicates the need for further investigation including assessment of proteinuria and cardiovascular factors. < 30 Usually indicates a need for referral for assessment and management of chronic kidney failure. [id number] 02:05:00 Test Item Value Reference Range Comments Magnesium (test code=MG) 1.9 mg/dl 1.6-2.3 CBC WITH AUTO [id number] 02:03:00 Test Item Value Reference Range Comments [...] code=IG%) 0.9 % 0.0-0.4 AFB CULTURE + [id number] 12:29:00 Test Item Value Reference Range Comments CULTURE (BEAKER) (test No acid-fast bacilli isolated ejnf=3411) in 42 days AFB SMEAR (BEAKER) (test No acid fast bacilli seen gihm=535) AFB CULTURE + [id number] 12:28:00 Test Item Value Reference Range Comments CULTURE (BEAKER) (test No acid-fast bacilli isolated hynd=6935) in 42 days AFB SMEAR (BEAKER) (test No acid fast bacilli seen trfs=941) FUNGUS CULTURE + [id number] 17:13:00 Test Item Value Reference Range Comments CULTURE (BEAKER) (test No fungus isolated in 28 days dooj=2773) FUNGUS SMEAR (BEAKER) (test No fungi seen jpmi=8314) FUNGUS CULTURE + [id number] 17:13:00 Test Item Value Reference Range Comments CULTURE (BEAKER) (test No fungus isolated in 28 days btnc=5617) FUNGUS SMEAR (BEAKER) (test No fungi seen cmiv=3750) FUNGUS CULTURE + [id number] 21:46:00 Test Item Value Reference Range Comments CULTURE (BEAKER) (test No fungus isolated in 28 days azml=1513) FUNGUS SMEAR (BEAKER) (test No fungi seen zmud=4819) POCT-GLUCOSE [id number] 17:22:00 Test Item Value Reference Range Comments POC-GLUCOSE METER (BEAKER) 169 mg/dL 70-110 TESTED AT [address] (test fsix=4467) [place] [id number] POCT-GLUCOSE [id number] 12:13:00 Test Item Value Reference Range Comments POC-GLUCOSE METER (BEAKER) 165 mg/dL 70-110 TESTED AT [address] (test xqca=1148) [place] [id number] POCT-GLUCOSE [id number] 07:48:00 Test Item Value Reference Range Comments POC-GLUCOSE METER (BEAKER) 132 mg/dL 70-110 TESTED AT [address] (test tkfu=1841) [place] [id number] BASIC METABOLIC [id number] 07:26:00 Test Item Value Reference Range Comments SODIUM (BEAKER) (test 133 meq/L 136-145 gscf=097) POTASSIUM (BEAKER) (test 4.2 meq/L 3.5-5.1 dhwq=160) CHLORIDE (BEAKER) (test 101 meq/L 98-107 epcj=925) CO2 (BEAKER) (test 22 meq/L 22-29 dljh=911) BLOOD UREA NITROGEN 38 mg/dL 7-21 (BEAKER) (test gmpa=925) CREATININE (BEAKER) (test 4.01 mg/dL 0.57-1.25 xffe=392) GLUCOSE RANDOM (BEAKER) 110 mg/dL 70-105 (test zafv=842) CALCIUM (BEAKER) (test 8.7 mg/dL 8.4-10.2 tbug=304) EGFR (BEAKER) (test 15 mL/min/1.73 sq m ESTIMATED GFR IS NOT cuii=8855) ACCURATE CREATININE CLEARANCE IN PREDICTING GLOMERULAR FILTRATION RATE. ESTIMATED GFR IS NOT APPLICABLE FOR DIALYSIS PATIENTS. [id number] 07:25:00 Test Item Value Reference Range Comments PHOSPHORUS (BEAKER) (test pqlj=826) 4.4 mg/dL 2.3-4.7 [id number] 07:25:00 Test Item Value Reference Range Comments MAGNESIUM (BEAKER) (test txfb=556) 1.9 mg/dL 1.6-2.6 CBC W/PLT COUNT & AUTO [id number] 06:54:00 Test Item Value Reference Range Comments WHITE BLOOD CELL COUNT (BEAKER) (test ldtl=509) 12.6 K/ L 4.0-10.0 RED BLOOD CELL COUNT (BEAKER) (test carq=788) 2.78 M/ L 4.20-5.80 HEMOGLOBIN (BEAKER) (test azue=372) 8.3 GM/DL 13.0-16.8 HEMATOCRIT (BEAKER) (test vlou=112) 25.1 % 40.0-50.0 MEAN CORPUSCULAR VOLUME (BEAKER) (test cdte=379) 90.3 fL 82.0-98.0 MEAN CORPUSCULAR HEMOGLOBIN (BEAKER) (test 29.8 pg 27.0-33.0 prry=765) MEAN CORPUSCULAR HEMOGLOBIN CONC (BEAKER) (test 33.1 GM/DL 32.0-36.0 iqhj=048) RED CELL DISTRIBUTION WIDTH (BEAKER) (test 16.1 % 10.3-14.2 bgqw=894) PLATELET COUNT (BEAKER) (test rjfn=882) 290 K/CU MM 150-430 MEAN PLATELET VOLUME (BEAKER) (test lzyu=514) 7.2 fL 6.5-10.5 NUCLEATED RED BLOOD CELLS (BEAKER) (test 0 /100 WBC 0-0 hcza=421) NEUTROPHILS RELATIVE PERCENT (BEAKER) (test 74 % rsim=029) LYMPHOCYTES RELATIVE PERCENT (BEAKER) (test 15 % knwa=239) MONOCYTES RELATIVE PERCENT (BEAKER) (test 9 % lnam=221) EOSINOPHILS RELATIVE PERCENT (BEAKER) (test 2 % orws=218) BASOPHILS RELATIVE PERCENT (BEAKER) (test 0 % djsa=667) NEUTROPHILS ABSOLUTE COUNT (BEAKER) (test 9.30 K/ L 1.80-8.00 puxj=219) LYMPHOCYTES ABSOLUTE COUNT (BEAKER) (test 1.89 K/ L 1.48-4.50 zdlh=973) MONOCYTES ABSOLUTE COUNT (BEAKER) (test 1.14 K/ L 0.00-1.30 wkux=212) EOSINOPHILS ABSOLUTE COUNT (BEAKER) (test 0.26 K/ L 0.00-0.50 xadg=449) BASOPHILS ABSOLUTE COUNT (BEAKER) (test 0.05 K/ L 0.00-0.20 fyee=627) 0.00POCT-GLUCOSE [id number] 22:31:00 Test Item Value Reference Range Comments POC-GLUCOSE METER (BEAKER) 133 mg/dL 70-110 TESTED AT [address] (test jbgx=3752) [place] [address] POCT-GLUCOSE [id number] 17:17:00 Test Item Value Reference Range Comments POC-GLUCOSE METER (BEAKER) 119 mg/dL 70-110 TESTED AT [address] (test frca=1754) [place] [address] POCT-GLUCOSE [id number] 11:43:00 Test Item Value Reference Range Comments POC-GLUCOSE METER (BEAKER) 175 mg/dL 70-110 TESTED AT [address] (test onba=9404) [place] [address] CBC W/PLT COUNT & AUTO [id number] 08:39:00 Test Item Value Reference Range Comments WHITE BLOOD CELL COUNT (BEAKER) (test qwkr=309) 13.4 K/ L 4.0-10.0 RED BLOOD CELL COUNT (BEAKER) (test efxf=385) 2.91 M/ L 4.20-5.80 HEMOGLOBIN (BEAKER) (test tzil=702) 8.6 GM/DL 13.0-16.8 HEMATOCRIT (BEAKER) (test gqlf=230) 26.5 % 40.0-50.0 MEAN CORPUSCULAR VOLUME (BEAKER) (test pske=265) 91.1 fL 82.0-98.0 MEAN CORPUSCULAR HEMOGLOBIN (BEAKER) (test 29.4 pg 27.0-33.0 cswh=272) MEAN CORPUSCULAR HEMOGLOBIN CONC (BEAKER) (test 32.3 GM/DL 32.0-36.0 lpwv=472) RED CELL DISTRIBUTION WIDTH (BEAKER) (test 16.0 % 10.3-14.2 hdkd=278) PLATELET COUNT (BEAKER) (test nyek=128) 282 K/CU MM 150-430 MEAN PLATELET VOLUME (BEAKER) (test ppgh=567) 7.7 fL 6.5-10.5 NUCLEATED RED BLOOD CELLS (BEAKER) (test 0 /100 WBC 0-0 jppw=435) NEUTROPHILS RELATIVE PERCENT (BEAKER) (test 72 % giqi=694) LYMPHOCYTES RELATIVE PERCENT (BEAKER) (test 16 % noqf=272) MONOCYTES RELATIVE PERCENT (BEAKER) (test 10 % wbgq=007) EOSINOPHILS RELATIVE PERCENT (BEAKER) (test 2 % eeex=406) BASOPHILS RELATIVE PERCENT (BEAKER) (test 1 % xduu=659) NEUTROPHILS ABSOLUTE COUNT (BEAKER) (test 9.63 K/ L 1.80-8.00 jhpk=173) LYMPHOCYTES ABSOLUTE COUNT (BEAKER) (test 2.15 K/ L 1.48-4.50 grwi=081) MONOCYTES ABSOLUTE COUNT (BEAKER) (test 1.32 K/ L 0.00-1.30 ywbb=583) EOSINOPHILS ABSOLUTE COUNT (BEAKER) (test 0.23 K/ L 0.00-0.50 msgw=335) BASOPHILS ABSOLUTE COUNT (BEAKER) (test 0.10 K/ L 0.00-0.20 yxsd=021) 0.000.730.001.460.000.000.000.000.000.000.000.000.000.000.000.00(MANUAL DIFFERENTIAL)2016-12-24 08:39:00 Test Item Value Reference Range Comments TOTAL COUNTED (BEAKER) (test hlqw=9414) POCT-GLUCOSE [id number] 07:47:00 Test Item Value Reference Range Comments POC-GLUCOSE METER (BEAKER) 139 mg/dL 70-110 TESTED AT [address] (test ugsk=3355) [facility] [address] BASIC METABOLIC [id number] 06:50:00 Test Item Value Reference Range Comments SODIUM (BEAKER) (test 133 meq/L 136-145 viob=962) POTASSIUM (BEAKER) (test 4.2 meq/L 3.5-5.1 bmue=893) CHLORIDE (BEAKER) (test 102 meq/L 98-107 yhdi=961) CO2 (BEAKER) (test 21 meq/L 22-29 qaja=192) BLOOD UREA NITROGEN 27 mg/dL 7-21 (BEAKER) (test aqnq=770) CREATININE (BEAKER) (test 3.13 mg/dL 0.57-1.25 xjmt=298) GLUCOSE RANDOM (BEAKER) 100 mg/dL 70-105 (test psbw=314) CALCIUM (BEAKER) (test 8.8 mg/dL 8.4-10.2 stii=308) EGFR (BEAKER) (test 21 mL/min/1.73 sq m ESTIMATED GFR IS NOT uzak=7730) ACCURATE CREATININE CLEARANCE IN PREDICTING GLOMERULAR FILTRATION RATE. ESTIMATED GFR IS NOT APPLICABLE FOR DIALYSIS PATIENTS. [id number] 06:41:00 Test Item Value Reference Range Comments PHOSPHORUS (BEAKER) (test nwfj=985) 2.9 mg/dL 2.3-4.7 [id number] 06:41:00 Test Item Value Reference Range Comments MAGNESIUM (BEAKER) (test chay=184) 1.7 mg/dL 1.6-2.6 POCT-GLUCOSE [id number] 21:52:00 Test Item Value Reference Range Comments POC-GLUCOSE METER (BEAKER) 97 mg/dL 70-110 TESTED AT [address] (test vaem=1292) [facility] [address] POCT-GLUCOSE [id number] 17:28:00 Test Item Value Reference Range Comments POC-GLUCOSE METER (BEAKER) 105 mg/dL 70-110 TESTED AT [address] (test zogy=9444) [facility] [address] POCT-GLUCOSE [id number] 12:31:00 Test Item Value Reference Range Comments POC-GLUCOSE METER (BEAKER) 215 mg/dL 70-110 TESTED AT [address] (test uczm=1000) [facility] [address] POCT-GLUCOSE [id number] 08:19:00 Test Item Value Reference Range Comments POC-GLUCOSE METER (BEAKER) 135 mg/dL 70-[address] [facility] [address] (test ysts=0425) [facility] [address] CBC W/PLT COUNT & AUTO [id number] 07:19:00 Test Item Value Reference Range Comments WHITE BLOOD CELL COUNT (BEAKER) (test ybcb=442) 15.0 K/ L 4.0-10.0 RED BLOOD CELL COUNT (BEAKER) (test mlwx=698) 3.04 M/ L 4.20-5.80 HEMOGLOBIN (BEAKER) (test jrcf=252) 8.8 GM/DL 13.0-16.8 HEMATOCRIT (BEAKER) (test cvvc=920) 27.3 % 40.0-50.0 MEAN CORPUSCULAR VOLUME (BEAKER) (test gmth=811) 89.8 fL 82.0-98.0 MEAN CORPUSCULAR HEMOGLOBIN (BEAKER) (test 29.0 pg 27.0-33.0 vuhl=193) MEAN CORPUSCULAR HEMOGLOBIN CONC (BEAKER) (test 32.3 GM/DL 32.0-36.0 ibbu=513) RED CELL DISTRIBUTION WIDTH (BEAKER) (test 17.0 % 10.3-14.2 krer=726) PLATELET COUNT (BEAKER) (test pkwo=635) 285 K/CU MM 150-430 MEAN PLATELET VOLUME (BEAKER) (test lefw=820) 7.2 fL 6.5-10.5 NUCLEATED RED BLOOD CELLS (BEAKER) (test 0 /100 WBC 0-0 juyf=756) NEUTROPHILS RELATIVE PERCENT (BEAKER) (test 77 % vdec=875) LYMPHOCYTES RELATIVE PERCENT (BEAKER) (test 11 % skpt=934) MONOCYTES RELATIVE PERCENT (BEAKER) (test 11 % jlum=607) EOSINOPHILS RELATIVE PERCENT (BEAKER) (test 1 % avof=821) BASOPHILS RELATIVE PERCENT (BEAKER) (test 0 % cecy=360) NEUTROPHILS ABSOLUTE COUNT (BEAKER) (test 11.50 K/ L 1.80-8.00 bsvl=614) LYMPHOCYTES ABSOLUTE COUNT (BEAKER) (test 1.72 K/ L 1.48-4.50 mxmr=649) MONOCYTES ABSOLUTE COUNT (BEAKER) (test 1.59 K/ L 0.00-1.30 kuag=290) EOSINOPHILS ABSOLUTE COUNT (BEAKER) (test 0.17 K/ L 0.00-0.50 aucu=600) BASOPHILS ABSOLUTE COUNT (BEAKER) (test 0.05 K/ L 0.00-0.20 crij=311) [id number] 06:41:00 Test Item Value Reference Range Comments PHOSPHORUS (BEAKER) (test dson=886) 2.1 mg/dL 2.3-4.7 [id number] 06:41:00 Test Item Value Reference Range Comments MAGNESIUM (BEAKER) (test gvah=751) 1.8 mg/dL 1.6-2.6 BASIC METABOLIC [id number] 06:41:00 Test Item Value Reference Range Comments SODIUM (BEAKER) (test 134 meq/L 136-145 ixrj=864) POTASSIUM (BEAKER) (test 4.2 meq/L 3.5-5.1 stfq=917) CHLORIDE (BEAKER) (test 103 meq/L 98-107 rsij=545) CO2 (BEAKER) (test 23 meq/L 22-29 effr=065) BLOOD UREA NITROGEN 18 mg/dL 7-21 (BEAKER) (test lbww=988) CREATININE (BEAKER) (test 2.20 mg/dL 0.57-1.25 onvp=736) GLUCOSE RANDOM (BEAKER) 105 mg/dL 70-105 (test uwrd=918) CALCIUM (BEAKER) (test 8.5 mg/dL 8.4-10.2 kcnd=811) EGFR (BEAKER) (test 31 mL/min/1.73 sq m ESTIMATED GFR IS NOT xrjn=7397) ACCURATE CREATININE CLEARANCE IN PREDICTING GLOMERULAR FILTRATION RATE. ESTIMATED GFR IS NOT APPLICABLE FOR DIALYSIS PATIENTS. POCT-GLUCOSE [id number] 21:43:00 Test Item Value Reference Range Comments POC-GLUCOSE METER (BEAKER) 278 mg/dL 70-110 TESTED AT [address] (test jtnf=6260) [facility] [address] POCT-GLUCOSE [id number] 18:42:00 Test Item Value Reference Range Comments POC-GLUCOSE METER (BEAKER) 177 mg/dL 70-110 TESTED AT [address] (test ulft=1243) [facility] [address] POCT-GLUCOSE [id number] 14:53:00 Test Item Value Reference Range Comments POC-GLUCOSE METER (BEAKER) 197 mg/dL 70-110 TESTED AT [place] [id number] [facility] (test lnci=3482) [facility] [address] CBC W/PLT COUNT & AUTO [id number] 12:20:00 Test Item Value Reference Range Comments WHITE BLOOD CELL COUNT (BEAKER) (test psei=710) 13.6 K/ L 4.0-10.0 RED BLOOD CELL COUNT (BEAKER) (test hrrf=707) 2.85 M/ L 4.20-5.80 HEMOGLOBIN (BEAKER) (test cztm=477) 8.3 GM/DL 13.0-16.8 HEMATOCRIT (BEAKER) (test guqj=755) 25.8 % 40.0-50.0 MEAN CORPUSCULAR VOLUME (BEAKER) (test rtnl=309) 90.6 fL 82.0-98.0 MEAN CORPUSCULAR HEMOGLOBIN (BEAKER) (test 29.3 pg 27.0-33.0 ajlz=812) MEAN CORPUSCULAR HEMOGLOBIN CONC (BEAKER) (test 32.3 GM/DL 32.0-36.0 rwdd=396) RED CELL DISTRIBUTION WIDTH (BEAKER) (test 16.7 % 10.3-14.2 uyvf=759) PLATELET COUNT (BEAKER) (test zakp=684) 252 K/CU MM 150-430 MEAN PLATELET VOLUME (BEAKER) (test finx=502) 7.4 fL 6.5-10.5 NUCLEATED RED BLOOD CELLS (BEAKER) (test 0 /100 WBC 0-0 lkkc=810) NEUTROPHILS RELATIVE PERCENT (BEAKER) (test 75 % vaoy=591) LYMPHOCYTES RELATIVE PERCENT (BEAKER) (test 13 % ruob=882) MONOCYTES RELATIVE PERCENT (BEAKER) (test 10 % hdub=809) EOSINOPHILS RELATIVE PERCENT (BEAKER) (test 2 % rwow=292) BASOPHILS RELATIVE PERCENT (BEAKER) (test 0 % rmuj=275) NEUTROPHILS ABSOLUTE COUNT (BEAKER) (test 10.20 K/ L 1.80-8.00 dcch=812) LYMPHOCYTES ABSOLUTE COUNT (BEAKER) (test 1.78 K/ L 1.48-4.50 usvk=080) MONOCYTES ABSOLUTE COUNT (BEAKER) (test 1.32 K/ L 0.00-1.30 ftjf=735) EOSINOPHILS ABSOLUTE COUNT (BEAKER) (test 0.22 K/ L 0.00-0.50 hoqn=403) BASOPHILS ABSOLUTE COUNT (BEAKER) (test 0.06 K/ L 0.00-0.20 cjak=411) 0.00POCT-GLUCOSE [id number] 08:28:00 Test Item Value Reference Range Comments POC-GLUCOSE METER (BEAKER) 132 mg/dL 70-[address] [facility] [address] [facility] (test oqav=2825) [facility] [address] BASIC METABOLIC [id number] 07:26:00 Test Item Value Reference Range Comments SODIUM (BEAKER) (test 131 meq/L 136-145 jypm=032) POTASSIUM (BEAKER) (test 4.2 meq/L 3.5-5.1 vnms=206) CHLORIDE (BEAKER) (test 98 meq/L 98-107 mbdp=900) CO2 (BEAKER) (test 24 meq/L 22-29 tbkk=147) BLOOD UREA NITROGEN 25 mg/dL 7-21 (BEAKER) (test dmqf=937) CREATININE (BEAKER) (test 3.02 mg/dL 0.57-1.25 rtev=473) GLUCOSE RANDOM (BEAKER) 103 mg/dL 70-105 (test duzr=875) CALCIUM (BEAKER) (test 8.1 mg/dL 8.4-10.2 oush=930) EGFR (BEAKER) (test 21 mL/min/1.73 sq m ESTIMATED GFR IS NOT nzxm=6824) ACCURATE CREATININE CLEARANCE IN PREDICTING GLOMERULAR FILTRATION RATE. ESTIMATED GFR IS NOT APPLICABLE FOR DIALYSIS PATIENTS. [id number] 07:17:00 Test Item Value Reference Range Comments PHOSPHORUS (BEAKER) (test wvfv=336) 3.1 mg/dL 2.3-4.7 [id number] 07:17:00 Test Item Value Reference Range Comments MAGNESIUM (BEAKER) (test dppk=349) 1.8 mg/dL 1.6-2.6 CALCIUM, [id number] 05:38:00 Test Item Value Reference Range Comments CALCIUM IONIZED (BEAKER) (test pubg=384) 1.09 mmol/L 1.12-1.27 PH, BLOOD (BEAKER) (test ucoj=7836) 7.45 POCT-GLUCOSE [id number] 21:45:00 Test Item Value Reference Range Comments POC-GLUCOSE METER (BEAKER) 121 mg/dL 70-110 TESTED AT [address] (test pkqz=4326) [facility] [address] POCT-GLUCOSE [id number] 16:48:00 Test Item Value Reference Range Comments POC-GLUCOSE METER (BEAKER) 157 mg/dL 70-110 TESTED AT [address] (test pkqw=0113) [facility] [address] POCT-GLUCOSE [id number] 12:16:00 Test Item Value Reference Range Comments POC-GLUCOSE METER (BEAKER) 247 mg/dL 70-110 TESTED AT [address] (test syvh=6124) [facility] [address] POCT-GLUCOSE [id number] 08:14:00 Test Item Value Reference Range Comments POC-GLUCOSE METER (BEAKER) 166 mg/dL 70-110 TESTED AT [address] (test ixzp=2579) [facility] [address] BASIC METABOLIC [id number] 07:58:00 Test Item Value Reference Range Comments SODIUM (BEAKER) (test 131 meq/L 136-145 bhne=427) POTASSIUM (BEAKER) (test 3.9 meq/L 3.5-5.1 staq=304) CHLORIDE (BEAKER) (test 99 meq/L 98-107 ysxo=108) CO2 (BEAKER) (test 26 meq/L 22-29 fntq=009) BLOOD UREA NITROGEN 18 mg/dL 7-21 (BEAKER) (test kcix=385) CREATININE (BEAKER) (test 2.32 mg/dL 0.57-1.25 lmqp=961) GLUCOSE RANDOM (BEAKER) 145 mg/dL 70-105 (test qrgm=167) CALCIUM (BEAKER) (test 8.1 mg/dL 8.4-10.2 dhzc=875) EGFR (BEAKER) (test 29 mL/min/1.73 sq m ESTIMATED GFR IS NOT ummk=2855) ACCURATE CREATININE CLEARANCE IN PREDICTING GLOMERULAR FILTRATION RATE. ESTIMATED GFR IS NOT APPLICABLE FOR DIALYSIS PATIENTS. CBC W/PLT COUNT & AUTO [id number] 07:50:00 Test Item Value Reference Range Comments WHITE BLOOD CELL COUNT (BEAKER) (test zngh=385) 15.3 K/ L 4.0-10.0 RED BLOOD CELL COUNT (BEAKER) (test otcc=296) 3.00 M/ L 4.20-5.80 HEMOGLOBIN (BEAKER) (test tsqm=627) 8.4 GM/DL 13.0-16.8 HEMATOCRIT (BEAKER) (test bomj=488) 27.3 % 40.0-50.0 MEAN CORPUSCULAR VOLUME (BEAKER) (test wxig=703) 90.9 fL 82.0-98.0 MEAN CORPUSCULAR HEMOGLOBIN (BEAKER) (test 28.0 pg 27.0-33.0 svmh=978) MEAN CORPUSCULAR HEMOGLOBIN CONC (BEAKER) (test 30.8 GM/DL 32.0-36.0 amer=798) RED CELL DISTRIBUTION WIDTH (BEAKER) (test 15.9 % 10.3-14.2 aiwd=201) PLATELET COUNT (BEAKER) (test eqzs=188) 271 K/CU MM 150-430 MEAN PLATELET VOLUME (BEAKER) (test bsmw=756) 7.4 fL 6.5-10.5 NUCLEATED RED BLOOD CELLS (BEAKER) (test 0 /100 WBC 0-0 ugjo=712) NEUTROPHILS RELATIVE PERCENT (BEAKER) (test 76 % dbjm=088) LYMPHOCYTES RELATIVE PERCENT (BEAKER) (test 14 % hwuh=865) MONOCYTES RELATIVE PERCENT (BEAKER) (test 9 % btie=769) EOSINOPHILS RELATIVE PERCENT (BEAKER) (test 1 % iqbf=308) BASOPHILS RELATIVE PERCENT (BEAKER) (test 0 % chis=554) NEUTROPHILS ABSOLUTE COUNT (BEAKER) (test 11.60 K/ L 1.80-8.00 gwkm=521) LYMPHOCYTES ABSOLUTE COUNT (BEAKER) (test 2.11 K/ L 1.48-4.50 xyos=034) MONOCYTES ABSOLUTE COUNT (BEAKER) (test 1.36 K/ L 0.00-1.30 wulu=377) EOSINOPHILS ABSOLUTE COUNT (BEAKER) (test 0.17 K/ L 0.00-0.50 sjjy=344) BASOPHILS ABSOLUTE COUNT (BEAKER) (test 0.06 K/ L 0.00-0.20 fpqy=898) [id number] 07:24:00 Test Item Value Reference Range Comments PHOSPHORUS (BEAKER) (test kmuf=167) 2.1 mg/dL 2.3-4.7 [id number] 07:24:00 Test Item Value Reference Range Comments MAGNESIUM (BEAKER) (test tgie=992) 1.6 mg/dL 1.6-2.6 POCT-GLUCOSE [id number] 20:38:00 Test Item Value Reference Range Comments POC-GLUCOSE METER (BEAKER) 191 mg/dL 70-110 TESTED AT [address] (test bbzj=0079) [place] [id number] POCT-GLUCOSE [id number] 17:32:00 Test Item Value Reference Range Comments POC-GLUCOSE METER (BEAKER) 229 mg/dL 70-110 TESTED AT [address] (test txsk=8045) [place] [address] VANCOMYCIN LEVEL, [id number] 16:51:00 Test Item Value Reference Range Comments VANCOMYCIN TROUGH (BEAKER) (test wine=207) 17.2 ug/mL 10.0-20.0 At end of dialysis on 12/20/16POCT-GLUCOSE [id number] 11:49:00 Test Item Value Reference Range Comments POC-GLUCOSE METER (BEAKER) 97 mg/dL 70-110 TESTED AT [address] (test cqwi=8533) [place] [id number] POCT-GLUCOSE [id number] 07:38:00 Test Item Value Reference Range Comments POC-GLUCOSE METER (BEAKER) 151 mg/dL 70-110 TESTED AT [address] (test ylbn=6390) [place] [id number] BASIC METABOLIC [id number] 06:39:00 Test Item Value Reference Range Comments SODIUM (BEAKER) (test 134 meq/L 136-145 hujb=519) POTASSIUM (BEAKER) (test 3.9 meq/L 3.5-5.1 mdpy=328) CHLORIDE (BEAKER) (test 102 meq/L 98-107 zivs=407) CO2 (BEAKER) (test 24 meq/L 22-29 iaxm=040) BLOOD UREA NITROGEN 23 mg/dL 7-21 (BEAKER) (test azbi=021) CREATININE (BEAKER) (test 2.91 mg/dL 0.57-1.25 wrqp=292) GLUCOSE RANDOM (BEAKER) 99 mg/dL 70-105 (test somr=530) CALCIUM (BEAKER) (test 8.2 mg/dL 8.4-10.2 lzwu=795) EGFR (BEAKER) (test 22 mL/min/1.73 sq m ESTIMATED GFR IS NOT mljt=3104) ACCURATE CREATININE CLEARANCE IN PREDICTING GLOMERULAR FILTRATION RATE. ESTIMATED GFR IS NOT APPLICABLE FOR DIALYSIS PATIENTS. [id number] 06:37:00 Test Item Value Reference Range Comments PHOSPHORUS (BEAKER) (test egjf=464) 2.9 mg/dL 2.3-4.7 [id number] 06:37:00 Test Item Value Reference Range Comments MAGNESIUM (BEAKER) (test texw=328) 1.6 mg/dL 1.6-2.6 CBC W/PLT COUNT & AUTO [id number] 06:36:00 Test Item Value Reference Range Comments WHITE BLOOD CELL COUNT (BEAKER) (test efqe=836) 14.1 K/ L 4.0-10.0 RED BLOOD CELL COUNT (BEAKER) (test mctc=692) 3.01 M/ L 4.20-5.80 HEMOGLOBIN (BEAKER) (test umih=867) 8.7 GM/DL 13.0-16.8 HEMATOCRIT (BEAKER) (test dhht=391) 26.8 % 40.0-50.0 MEAN CORPUSCULAR VOLUME (BEAKER) (test datg=957) 88.9 fL 82.0-98.0 MEAN CORPUSCULAR HEMOGLOBIN (BEAKER) (test 28.8 pg 27.0-33.0 wxne=938) MEAN CORPUSCULAR HEMOGLOBIN CONC (BEAKER) (test 32.5 GM/DL 32.0-36.0 qhal=181) RED CELL DISTRIBUTION WIDTH (BEAKER) (test 16.3 % 10.3-14.2 tkso=475) PLATELET COUNT (BEAKER) (test qspb=530) 242 K/CU MM 150-430 MEAN PLATELET VOLUME (BEAKER) (test fddg=834) 6.9 fL 6.5-10.5 NUCLEATED RED BLOOD CELLS (BEAKER) (test 0 /100 WBC 0-0 paqp=953) NEUTROPHILS RELATIVE PERCENT (BEAKER) (test 73 % gtos=719) LYMPHOCYTES RELATIVE PERCENT (BEAKER) (test 15 % jgcz=581) MONOCYTES RELATIVE PERCENT (BEAKER) (test 9 % laje=440) EOSINOPHILS RELATIVE PERCENT (BEAKER) (test 2 % oglr=957) BASOPHILS RELATIVE PERCENT (BEAKER) (test 0 % lkie=089) NEUTROPHILS ABSOLUTE COUNT (BEAKER) (test 10.30 K/ L 1.80-8.00 tpul=174) LYMPHOCYTES ABSOLUTE COUNT (BEAKER) (test 2.14 K/ L 1.48-4.50 tzbn=849) MONOCYTES ABSOLUTE COUNT (BEAKER) (test 1.33 K/ L 0.00-1.30 mfmn=154) EOSINOPHILS ABSOLUTE COUNT (BEAKER) (test 0.29 K/ L 0.00-0.50 uhiy=516) BASOPHILS ABSOLUTE COUNT (BEAKER) (test 0.06 K/ L 0.00-0.20 fvse=230) 0.00CALCIUM, [id number] 06:24:00 Test Item Value Reference Range Comments CALCIUM IONIZED (BEAKER) (test eide=141) 1.08 mmol/L 1.12-1.27 PH, BLOOD (BEAKER) (test efsm=8608) 7.46 POCT-GLUCOSE [id number] 22:24:00 Test Item Value Reference Range Comments POC-GLUCOSE METER (BEAKER) 166 mg/dL 70-110 TESTED AT [address] (test iotk=5137) [place] [id number] POCT-GLUCOSE [id number] 16:17:00 Test Item Value Reference Range Comments POC-GLUCOSE METER (BEAKER) 132 mg/dL 70-110 TESTED AT [address] (test qgok=0298) [place] [address] POCT-GLUCOSE [id number] 12:16:00 Test Item Value Reference Range Comments POC-GLUCOSE METER (BEAKER) 90 mg/dL 70-110 TESTED AT [address] (test pfgp=2090) [place] [address] POCT-GLUCOSE [id number] 08:13:00 Test Item Value Reference Range Comments POC-GLUCOSE METER (BEAKER) 111 mg/dL 70-110 TESTED AT [address] (test junh=1088) [place] [id number] CBC W/PLT COUNT & AUTO [id number] 07:40:00 Test Item Value Reference Range Comments WHITE BLOOD CELL COUNT (BEAKER) (test toqa=229) 11.9 K/ L 4.0-10.0 RED BLOOD CELL COUNT (BEAKER) (test smnv=498) 3.11 M/ L 4.20-5.80 HEMOGLOBIN (BEAKER) (test jvqi=649) 8.9 GM/DL 13.0-16.8 HEMATOCRIT (BEAKER) (test fvgo=552) 28.0 % 40.0-50.0 MEAN CORPUSCULAR VOLUME (BEAKER) (test kjqo=458) 90.3 fL 82.0-98.0 MEAN CORPUSCULAR HEMOGLOBIN (BEAKER) (test 28.7 pg 27.0-33.0 aakp=465) MEAN CORPUSCULAR HEMOGLOBIN CONC (BEAKER) (test 31.8 GM/DL 32.0-36.0 ffia=361) RED CELL DISTRIBUTION WIDTH (BEAKER) (test 15.5 % 10.3-14.2 sfgy=425) PLATELET COUNT (BEAKER) (test ljls=207) 252 K/CU MM 150-430 MEAN PLATELET VOLUME (BEAKER) (test gadp=352) 7.1 fL 6.5-10.5 NUCLEATED RED BLOOD CELLS (BEAKER) (test 0 /100 WBC 0-0 ynsz=324) NEUTROPHILS RELATIVE PERCENT (BEAKER) (test 69 % ccvh=109) LYMPHOCYTES RELATIVE PERCENT (BEAKER) (test 18 % ukyl=166) MONOCYTES RELATIVE PERCENT (BEAKER) (test 11 % ghhm=530) EOSINOPHILS RELATIVE PERCENT (BEAKER) (test 2 % uxuu=657) BASOPHILS RELATIVE PERCENT (BEAKER) (test 0 % ohch=082) NEUTROPHILS ABSOLUTE COUNT (BEAKER) (test 8.27 K/ L 1.80-8.00 oxst=714) LYMPHOCYTES ABSOLUTE COUNT (BEAKER) (test 2.09 K/ L 1.48-4.50 qihs=986) MONOCYTES ABSOLUTE COUNT (BEAKER) (test 1.35 K/ L 0.00-1.30 wfap=254) EOSINOPHILS ABSOLUTE COUNT (BEAKER) (test 0.19 K/ L 0.00-0.50 vjlz=909) BASOPHILS ABSOLUTE COUNT (BEAKER) (test 0.04 K/ L 0.00-0.20 vmib=764) [id number] 07:29:00 Test Item Value Reference Range Comments PHOSPHORUS (BEAKER) (test rltq=387) 1.8 mg/dL 2.3-4.7 [id number] 07:29:00 Test Item Value Reference Range Comments MAGNESIUM (BEAKER) (test dddv=572) 1.6 mg/dL 1.6-2.6 BASIC METABOLIC [id number] 07:29:00 Test Item Value Reference Range Comments SODIUM (BEAKER) (test 135 meq/L 136-145 bllb=970) POTASSIUM (BEAKER) (test 3.7 meq/L 3.5-5.1 jnzb=924) CHLORIDE (BEAKER) (test 104 meq/L 98-107 kftn=808) CO2 (BEAKER) (test 24 meq/L 22-29 gfkk=324) BLOOD UREA NITROGEN 12 mg/dL 7-21 (BEAKER) (test basz=919) CREATININE (BEAKER) (test 2.00 mg/dL 0.57-1.25 poqw=811) GLUCOSE RANDOM (BEAKER) 81 mg/dL 70-105 (test ybsd=548) CALCIUM (BEAKER) (test 8.2 mg/dL 8.4-10.2 kwbt=014) EGFR (BEAKER) (test 34 mL/min/1.73 sq m ESTIMATED GFR IS NOT csev=4310) ACCURATE CREATININE CLEARANCE IN PREDICTING GLOMERULAR FILTRATION RATE. ESTIMATED GFR IS NOT APPLICABLE FOR DIALYSIS PATIENTS. POCT-GLUCOSE [id number] 21:13:00 Test Item Value Reference Range Comments POC-GLUCOSE METER (BEAKER) 107 mg/dL 70-110 TESTED AT [address] (test vshi=1974) [facility] [address] POCT-GLUCOSE [id number] 17:33:00 Test Item Value Reference Range Comments POC-GLUCOSE METER (BEAKER) 131 mg/dL 70-110 TESTED AT [address] (test zrfr=9989) [facility] [address] POCT-GLUCOSE [id number] 13:05:00 Test Item Value Reference Range Comments POC-GLUCOSE METER (BEAKER) 188 mg/dL 70-110 TESTED AT [address] (test ffwt=0092) [facility] [address] POCT-GLUCOSE [id number] 09:01:00 Test Item Value Reference Range Comments POC-GLUCOSE METER (BEAKER) 103 mg/dL 70-110 TESTED AT [place] [id number] [facility] (test tnqa=4752) [facility] [address] CBC W/PLT COUNT & AUTO [id number] 07:08:00 Test Item Value Reference Range Comments WHITE BLOOD CELL COUNT (BEAKER) (test jiwq=729) 12.7 K/ L 4.0-10.0 RED BLOOD CELL COUNT (BEAKER) (test wqle=329) 3.09 M/ L 4.20-5.80 HEMOGLOBIN (BEAKER) (test kqwo=538) 9.0 GM/DL 13.0-16.8 HEMATOCRIT (BEAKER) (test wrjd=091) 27.4 % 40.0-50.0 MEAN CORPUSCULAR VOLUME (BEAKER) (test eohj=812) 88.8 fL 82.0-98.0 MEAN CORPUSCULAR HEMOGLOBIN (BEAKER) (test 29.0 pg 27.0-33.0 doqo=816) MEAN CORPUSCULAR HEMOGLOBIN CONC (BEAKER) (test 32.7 GM/DL 32.0-36.0 rgtk=483) RED CELL DISTRIBUTION WIDTH (BEAKER) (test 15.7 % 10.3-14.2 xrhn=684) PLATELET COUNT (BEAKER) (test jtzu=246) 257 K/CU MM 150-430 MEAN PLATELET VOLUME (BEAKER) (test pxlo=414) 7.0 fL 6.5-10.5 NUCLEATED RED BLOOD CELLS (BEAKER) (test 0 /100 WBC 0-0 cafb=567) NEUTROPHILS RELATIVE PERCENT (BEAKER) (test 74 % kooq=614) LYMPHOCYTES RELATIVE PERCENT (BEAKER) (test 14 % souz=338) MONOCYTES RELATIVE PERCENT (BEAKER) (test 9 % tsot=596) EOSINOPHILS RELATIVE PERCENT (BEAKER) (test 2 % fcas=677) BASOPHILS RELATIVE PERCENT (BEAKER) (test 0 % uzcv=767) NEUTROPHILS ABSOLUTE COUNT (BEAKER) (test 9.38 K/ L 1.80-8.00 ekrm=075) LYMPHOCYTES ABSOLUTE COUNT (BEAKER) (test 1.80 K/ L 1.48-4.50 jlzt=277) MONOCYTES ABSOLUTE COUNT (BEAKER) (test 1.20 K/ L 0.00-1.30 qyay=879) EOSINOPHILS ABSOLUTE COUNT (BEAKER) (test 0.24 K/ L 0.00-0.50 stci=766) BASOPHILS ABSOLUTE COUNT (BEAKER) (test 0.05 K/ L 0.00-0.20 leil=952) [id number] 06:17:00 Test Item Value Reference Range Comments PHOSPHORUS (BEAKER) (test emmw=119) 2.4 mg/dL 2.3-4.7 [id number] 06:17:00 Test Item Value Reference Range Comments MAGNESIUM (BEAKER) (test jzdo=706) 1.5 mg/dL 1.6-2.6 BASIC METABOLIC [id number] 06:17:00 Test Item Value Reference Range Comments SODIUM (BEAKER) (test 135 meq/L 136-145 xbus=573) POTASSIUM (BEAKER) (test 3.7 meq/L 3.5-5.1 upov=740) CHLORIDE (BEAKER) (test 104 meq/L 98-107 chzs=374) CO2 (BEAKER) (test 23 meq/L 22-29 dgts=696) BLOOD UREA NITROGEN 24 mg/dL 7-21 (BEAKER) (test fkel=771) CREATININE (BEAKER) (test 2.70 mg/dL 0.57-1.25 obhq=859) GLUCOSE RANDOM (BEAKER) 93 mg/dL 70-105 (test aojt=957) CALCIUM (BEAKER) (test 8.4 mg/dL 8.4-10.2 skzc=558) EGFR (BEAKER) (test 24 mL/min/1.73 sq m ESTIMATED GFR IS NOT labo=8250) ACCURATE CREATININE CLEARANCE IN PREDICTING GLOMERULAR FILTRATION RATE. ESTIMATED GFR IS NOT APPLICABLE FOR DIALYSIS PATIENTS. POCT-GLUCOSE [id number] 23:43:00 Test Item Value Reference Range Comments POC-GLUCOSE METER (BEAKER) 100 mg/dL 70-[address] [facility] [address] (test jbnt=6324) [facility] [address] POCT-GLUCOSE [id number] 17:44:00 Test Item Value Reference Range Comments POC-GLUCOSE METER (BEAKER) 208 mg/dL 70-110 TESTED AT [address] (test dwmm=1525) [facility] [address] ANAEROBIC [id number] 14:43:00 Test Item Value Reference Range Comments CULTURE (BEAKER) (test haxa=0965) No anaerobes isolated ANAEROBIC [id number] 14:42:00 Test Item Value Reference Range Comments CULTURE (BEAKER) (test psnm=9165) No anaerobes isolated POCT-GLUCOSE [id number] 12:02:00 Test Item Value Reference Range Comments POC-GLUCOSE METER (BEAKER) 208 mg/dL 70-110 TESTED AT [address] (test eopx=6102) [place] [address] POCT-GLUCOSE [id number] 09:52:00 Test Item Value Reference Range Comments POC-GLUCOSE METER (BEAKER) 86 mg/dL 70-110 TESTED AT [address] (test vlez=7549) [facility] [address] CBC W/PLT COUNT & AUTO [id number] 07:11:00 Test Item Value Reference Range Comments WHITE BLOOD CELL COUNT (BEAKER) (test avtm=911) 11.1 K/ L 4.0-10.0 RED BLOOD CELL COUNT (BEAKER) (test svef=243) 3.26 M/ L 4.20-5.80 HEMOGLOBIN (BEAKER) (test xgmn=942) 9.6 GM/DL 13.0-16.8 HEMATOCRIT (BEAKER) (test hnca=753) 29.4 % 40.0-50.0 MEAN CORPUSCULAR VOLUME (BEAKER) (test akwl=296) 90.2 fL 82.0-98.0 MEAN CORPUSCULAR HEMOGLOBIN (BEAKER) (test 29.5 pg 27.0-33.0 wxjh=052) MEAN CORPUSCULAR HEMOGLOBIN CONC (BEAKER) (test 32.7 GM/DL 32.0-36.0 psvt=400) RED CELL DISTRIBUTION WIDTH (BEAKER) (test 14.7 % 10.3-14.2 ukox=668) PLATELET COUNT (BEAKER) (test vgya=126) 280 K/CU MM 150-430 MEAN PLATELET VOLUME (BEAKER) (test hshw=098) 6.8 fL 6.5-10.5 NUCLEATED RED BLOOD CELLS (BEAKER) (test 0 /100 WBC 0-0 kaek=957) NEUTROPHILS RELATIVE PERCENT (BEAKER) (test 73 % nklp=558) LYMPHOCYTES RELATIVE PERCENT (BEAKER) (test 15 % ysqg=047) MONOCYTES RELATIVE PERCENT (BEAKER) (test 10 % myhi=817) EOSINOPHILS RELATIVE PERCENT (BEAKER) (test 2 % bkdx=396) BASOPHILS RELATIVE PERCENT (BEAKER) (test 0 % ezwb=598) NEUTROPHILS ABSOLUTE COUNT (BEAKER) (test 8.08 K/ L 1.80-8.00 voii=081) LYMPHOCYTES ABSOLUTE COUNT (BEAKER) (test 1.66 K/ L 1.48-4.50 xyqp=044) MONOCYTES ABSOLUTE COUNT (BEAKER) (test 1.06 K/ L 0.00-1.30 nbkn=228) EOSINOPHILS ABSOLUTE COUNT (BEAKER) (test 0.26 K/ L 0.00-0.50 evbb=377) BASOPHILS ABSOLUTE COUNT (BEAKER) (test 0.05 K/ L 0.00-0.20 hqfl=727) [id number] 06:02:00 Test Item Value Reference Range Comments PHOSPHORUS (BEAKER) (test rhfy=601) 1.7 mg/dL 2.3-4.7 [id number] 06:02:00 Test Item Value Reference Range Comments MAGNESIUM (BEAKER) (test nvue=098) 1.5 mg/dL 1.6-2.6 BASIC METABOLIC [id number] 06:02:00 Test Item Value Reference Range Comments SODIUM (BEAKER) (test 136 meq/L 136-145 szrw=482) POTASSIUM (BEAKER) (test 3.9 meq/L 3.5-5.1 cwye=028) CHLORIDE (BEAKER) (test 103 meq/L 98-107 lrsd=600) CO2 (BEAKER) (test 25 meq/L 22-29 wfrj=135) BLOOD UREA NITROGEN 13 mg/dL 7-21 (BEAKER) (test hujo=157) CREATININE (BEAKER) (test 1.67 mg/dL 0.57-1.25 nqoj=774) GLUCOSE RANDOM (BEAKER) 74 mg/dL 70-105 (test rrqm=137) CALCIUM (BEAKER) (test 8.7 mg/dL 8.4-10.2 knro=070) EGFR (BEAKER) (test 42 mL/min/1.73 sq m ESTIMATED GFR IS NOT sklr=4948) ACCURATE CREATININE CLEARANCE IN PREDICTING GLOMERULAR FILTRATION RATE. ESTIMATED GFR IS NOT APPLICABLE FOR DIALYSIS PATIENTS. POCT-GLUCOSE [id number] 21:46:00 Test Item Value Reference Range Comments POC-GLUCOSE METER (BEAKER) 83 mg/dL 70-110 TESTED AT [address] (test vxcb=8498) [place] [address] POCT-GLUCOSE [id number] 17:45:00 Test Item Value Reference Range Comments POC-GLUCOSE METER (BEAKER) 83 mg/dL 70-110 TESTED AT [address] (test njiy=7953) [place] [address] POCT-GLUCOSE [id number] 11:03:00 Test Item Value Reference Range Comments POC-GLUCOSE METER (BEAKER) 152 mg/dL 70-110 TESTED AT [address] (test tfup=4219) [place] [address] CBC W/PLT COUNT & AUTO [id number] 08:54:00 Test Item Value Reference Range Comments WHITE BLOOD CELL COUNT (BEAKER) (test jeoz=846) 14.2 K/ L 4.0-10.0 RED BLOOD CELL COUNT (BEAKER) (test svzz=347) 2.99 M/ L 4.20-5.80 HEMOGLOBIN (BEAKER) (test emop=220) 8.6 GM/DL 13.0-16.8 HEMATOCRIT (BEAKER) (test vgys=046) 27.1 % 40.0-50.0 MEAN CORPUSCULAR VOLUME (BEAKER) (test bqtm=629) 90.6 fL 82.0-98.0 MEAN CORPUSCULAR HEMOGLOBIN (BEAKER) (test 28.6 pg 27.0-33.0 suoy=478) MEAN CORPUSCULAR HEMOGLOBIN CONC (BEAKER) (test 31.6 GM/DL 32.0-36.0 xugy=769) RED CELL DISTRIBUTION WIDTH (BEAKER) (test 14.6 % 10.3-14.2 fpsv=502) PLATELET COUNT (BEAKER) (test fbdt=904) 285 K/CU MM 150-430 MEAN PLATELET VOLUME (BEAKER) (test ypcc=814) 7.1 fL 6.5-10.5 NUCLEATED RED BLOOD CELLS (BEAKER) (test 0 /100 WBC 0-0 divp=472) NEUTROPHILS RELATIVE PERCENT (BEAKER) (test 79 % lkft=585) LYMPHOCYTES RELATIVE PERCENT (BEAKER) (test 10 % lqnu=832) MONOCYTES RELATIVE PERCENT (BEAKER) (test 9 % jycm=162) EOSINOPHILS RELATIVE PERCENT (BEAKER) (test 2 % pixq=833) BASOPHILS RELATIVE PERCENT (BEAKER) (test 0 % kfwk=511) NEUTROPHILS ABSOLUTE COUNT (BEAKER) (test 11.20 K/ L 1.80-8.00 ongw=418) LYMPHOCYTES ABSOLUTE COUNT (BEAKER) (test 1.40 K/ L 1.48-4.50 mzrv=053) MONOCYTES ABSOLUTE COUNT (BEAKER) (test 1.30 K/ L 0.00-1.30 mdau=460) EOSINOPHILS ABSOLUTE COUNT (BEAKER) (test 0.27 K/ L 0.00-0.50 nnyn=767) BASOPHILS ABSOLUTE COUNT (BEAKER) (test 0.04 K/ L 0.00-0.20 tnln=639) 0.00BASIC METABOLIC [id number] 08:46:00 Test Item Value Reference Range Comments SODIUM (BEAKER) (test 138 meq/L 136-145 synw=021) POTASSIUM (BEAKER) (test 3.8 meq/L 3.5-5.1 elho=479) CHLORIDE (BEAKER) (test 103 meq/L 98-107 kahr=513) CO2 (BEAKER) (test 25 meq/L 22-29 gfwk=476) BLOOD UREA NITROGEN 29 mg/dL 7-21 (BEAKER) (test mxfd=081) CREATININE (BEAKER) (test 2.68 mg/dL 0.57-1.25 zlop=789) GLUCOSE RANDOM (BEAKER) 91 mg/dL 70-105 (test kftc=976) CALCIUM (BEAKER) (test 7.9 mg/dL 8.4-10.2 rbor=238) EGFR (BEAKER) (test 25 mL/min/1.73 sq m ESTIMATED GFR IS NOT blhf=0955) ACCURATE CREATININE CLEARANCE IN PREDICTING GLOMERULAR FILTRATION RATE. ESTIMATED GFR IS NOT APPLICABLE FOR DIALYSIS PATIENTS. VANCOMYCIN LEVEL, [id number] 07:53:00 Test Item Value Reference Range Comments VANCOMYCIN RANDOM (BEAKER) (test nasc=649) 15.1 ug/mL Reference Range: No NormalsPOCT-GLUCOSE [id number] 07:52:00 Test Item Value Reference Range Comments POC-GLUCOSE METER (BEAKER) 126 mg/dL 70-110 TESTED AT [address] (test orrz=7062) [place] [address] [id number] 07:50:00 Test Item Value Reference Range Comments PHOSPHORUS (BEAKER) (test susx=506) 2.1 mg/dL 2.3-4.7 [id number] 07:50:00 Test Item Value Reference Range Comments MAGNESIUM (BEAKER) (test rvtp=109) 1.7 mg/dL 1.6-2.6 POCT-GLUCOSE [id number] 21:08:00 Test Item Value Reference Range Comments POC-GLUCOSE METER (BEAKER) 234 mg/dL 70-110 TESTED AT [address] (test igtl=5718) [place] [address] POCT-GLUCOSE [id number] 17:02:00 Test Item Value Reference Range Comments POC-GLUCOSE METER (BEAKER) 230 mg/dL 70-110 TESTED AT [address] (test gbyd=0306) [place] [address] SURGICALLY OBTAINED CULTURE + GRAM [id number] 09:26:00 Test Item Value Reference Range Comments CULTURE (BEAKER) (test <1+ Same organism has been djzc=0459) isolated from cultures(s) of the same body site and collection date. Repeat identification and susceptibility testing performed only after consultation with the clinical microbiology laboratory.Refer to previous culture ofMethicillin resistant Staphylococcus aureus GRAM STAIN RESULT <1+ WBCs (BEAKER) (test atym=8962) GRAM STAIN RESULT No organisms seen (BEAKER) (test smco=[id number]) SURGICALLY OBTAINED CULTURE + GRAM [id number] 09:25:00 Test Item Value Reference Range Comments CULTURE (BEAKER) (test METHICILLIN RESISTANT <1+ Methicillin wkgg=8618) STAPHYLOCOCCUS AUREUS resistant Staphylococcus aureus Clindamycin (test code=10) Erythromycin (test code=4) Linezolid (test code=40) Oxacillin (test code=14) Rifampin (test code=43) Tetracycline (test code=2) Trimethoprim + Sulfamethoxazole (test code=47) Vancomycin (test code=13) CULTURE (BEAKER) (test METHICILLIN RESISTANT <1+ Methicillin aoyp=73097) STAPHYLOCOCCUS AUREUS resistant Staphylococcus aureusof a second type Clindamycin (test code=10) Erythromycin (test code=4) Linezolid (test code=40) Oxacillin (test code=14) Rifampin (test code=43) Tetracycline (test code=2) Trimethoprim + Sulfamethoxazole (test code=47) Vancomycin (test code=13) GRAM STAIN RESULT No White blood cells (BEAKER) (test ledf=1893) seen GRAM STAIN RESULT No organisms seen (BEAKER) (test zzea=688660) POCT-GLUCOSE [id number] 08:39:00 Test Item Value Reference Range Comments POC-GLUCOSE METER (BEAKER) 129 mg/dL 70-[address] [facility] [address] [facility] (test rgow=0786) [facility] [address] CBC W/PLT COUNT & AUTO [id number] 06:51:00 Test Item Value Reference Range Comments WHITE BLOOD CELL COUNT (BEAKER) (test oujk=482) 17.4 K/ L 4.0-10.0 RED BLOOD CELL COUNT (BEAKER) (test zoan=259) 2.99 M/ L 4.20-5.80 HEMOGLOBIN (BEAKER) (test cvvj=886) 8.9 GM/DL 13.0-16.8 HEMATOCRIT (BEAKER) (test sraq=032) 27.1 % 40.0-50.0 MEAN CORPUSCULAR VOLUME (BEAKER) (test yexw=411) 90.6 fL 82.0-98.0 MEAN CORPUSCULAR HEMOGLOBIN (BEAKER) (test 29.6 pg 27.0-33.0 agtd=087) MEAN CORPUSCULAR HEMOGLOBIN CONC (BEAKER) (test 32.7 GM/DL 32.0-36.0 xmde=049) RED CELL DISTRIBUTION WIDTH (BEAKER) (test 15.3 % 10.3-14.2 rakg=423) PLATELET COUNT (BEAKER) (test irhl=347) 246 K/CU MM 150-430 MEAN PLATELET VOLUME (BEAKER) (test ysqc=073) 6.7 fL 6.5-10.5 NUCLEATED RED BLOOD CELLS (BEAKER) (test 0 /100 WBC 0-0 zssq=651) NEUTROPHILS RELATIVE PERCENT (BEAKER) (test 83 % nlhx=083) LYMPHOCYTES RELATIVE PERCENT (BEAKER) (test 7 % rgcr=509) MONOCYTES RELATIVE PERCENT (BEAKER) (test 9 % qszh=135) EOSINOPHILS RELATIVE PERCENT (BEAKER) (test 1 % ypcu=534) BASOPHILS RELATIVE PERCENT (BEAKER) (test 0 % wshz=081) NEUTROPHILS ABSOLUTE COUNT (BEAKER) (test 14.50 K/ L 1.80-8.00 stft=666) LYMPHOCYTES ABSOLUTE COUNT (BEAKER) (test 1.19 K/ L 1.48-4.50 elwi=867) MONOCYTES ABSOLUTE COUNT (BEAKER) (test 1.56 K/ L 0.00-1.30 jvbb=247) EOSINOPHILS ABSOLUTE COUNT (BEAKER) (test 0.13 K/ L 0.00-0.50 ewns=738) BASOPHILS ABSOLUTE COUNT (BEAKER) (test 0.03 K/ L 0.00-0.20 ogmb=029) 0.00BASIC METABOLIC [id number] 05:44:00 Test Item Value Reference Range Comments SODIUM (BEAKER) (test 139 meq/L 136-145 vaxi=486) POTASSIUM (BEAKER) (test 3.7 meq/L 3.5-5.1 hjsh=447) CHLORIDE (BEAKER) (test 104 meq/L 98-107 xdta=031) CO2 (BEAKER) (test 26 meq/L 22-29 wmbv=976) BLOOD UREA NITROGEN 19 mg/dL 7-21 (BEAKER) (test iiuj=270) CREATININE (BEAKER) (test 2.08 mg/dL 0.57-1.25 slvo=260) GLUCOSE RANDOM (BEAKER) 127 mg/dL 70-105 (test arkp=974) CALCIUM (BEAKER) (test 7.9 mg/dL 8.4-10.2 tqme=400) EGFR (BEAKER) (test 33 mL/min/1.73 sq m ESTIMATED GFR IS NOT woqw=4344) ACCURATE CREATININE CLEARANCE IN PREDICTING GLOMERULAR FILTRATION RATE. ESTIMATED GFR IS NOT APPLICABLE FOR DIALYSIS PATIENTS. [id number] 05:42:00 Test Item Value Reference Range Comments PHOSPHORUS (BEAKER) (test wvjg=824) 2.3 mg/dL 2.3-4.7 [id number] 05:42:00 Test Item Value Reference Range Comments MAGNESIUM (BEAKER) (test tmqk=160) 1.7 mg/dL 1.6-2.6 CALCIUM, [id number] 05:21:00 Test Item Value Reference Range Comments CALCIUM IONIZED (BEAKER) (test jyzl=865) 0.99 mmol/L 1.12-1.27 PH, BLOOD (BEAKER) (test boml=0560) 7.44 POCT-GLUCOSE [id number] 21:08:00 Test Item Value Reference Range Comments POC-GLUCOSE METER (BEAKER) 184 mg/dL 70-110 TESTED AT [address] (test tbzd=6117) [place] [id number] POCT-GLUCOSE [id number] 18:10:00 Test Item Value Reference Range Comments POC-GLUCOSE METER (BEAKER) 214 mg/dL 70-110 TESTED AT [address] (test tqik=8102) [place] [id number] POCT-GLUCOSE [id number] 18:04:00 Test Item Value Reference Range Comments POC-GLUCOSE METER (BEAKER) 169 mg/dL 70-110 TESTED AT [address] (test pjxq=9987) [place] [id number] POCT-GLUCOSE [id number] 11:49:00 Test Item Value Reference Range Comments POC-GLUCOSE METER (BEAKER) 126 mg/dL 70-110 TESTED AT [address] (test nenh=1558) [place] [id number] POCT-GLUCOSE [id number] 08:17:00 Test Item Value Reference Range Comments POC-GLUCOSE METER (BEAKER) 119 mg/dL 70-110 TESTED AT [address] (test bmvw=5597) [facility] [address] VANCOMYCIN LEVEL, [id number] 06:32:00 Test Item Value Reference Range Comments VANCOMYCIN RANDOM (BEAKER) (test wbjy=075) 13.8 ug/mL Reference Range: No NormalsPOCT-GLUCOSE [id number] 05:54:00 Test Item Value Reference Range Comments POC-GLUCOSE METER (BEAKER) 122 mg/dL 70-110 TESTED AT [address] (test bqlg=2719) [facility] [address] B-TYPE NATRIURETIC FACTOR (BNP)2016-12-14 03:44:00 Test Item Value Reference Range Comments B-TYPE NATRIURETIC PEPTIDE (BEAKER) (test 883 pg/mL 0-100 cmdl=296) BASIC METABOLIC [id number] 03:40:00 Test Item Value Reference Range Comments SODIUM (BEAKER) (test 140 meq/L 136-145 xeum=047) POTASSIUM (BEAKER) (test 4.5 meq/L 3.5-5.1 jrbp=250) CHLORIDE (BEAKER) (test 109 meq/L 98-107 jguj=602) CO2 (BEAKER) (test 23 meq/L 22-29 sgjd=524) BLOOD UREA NITROGEN 21 mg/dL 7-21 (BEAKER) (test rqan=791) CREATININE (BEAKER) (test 2.96 mg/dL 0.57-1.25 geke=581) GLUCOSE RANDOM (BEAKER) 118 mg/dL 70-105 (test szwi=815) CALCIUM (BEAKER) (test 7.5 mg/dL 8.4-10.2 snym=845) EGFR (BEAKER) (test 22 mL/min/1.73 sq m ESTIMATED GFR IS NOT nlwq=6519) ACCURATE CREATININE CLEARANCE IN PREDICTING GLOMERULAR FILTRATION RATE. ESTIMATED GFR IS NOT APPLICABLE FOR DIALYSIS PATIENTS. [id number] 03:37:00 Test Item Value Reference Range Comments PHOSPHORUS (BEAKER) (test nmkw=374) 4.6 mg/dL 2.3-4.7 [id number] 03:37:00 Test Item Value Reference Range Comments MAGNESIUM (BEAKER) (test ztqg=797) 1.7 mg/dL 1.6-2.6 CBC W/PLT COUNT & AUTO [id number] 03:36:00 Test Item Value Reference Range Comments WHITE BLOOD CELL COUNT (BEAKER) (test darl=191) 23.8 K/ L 4.0-10.0 RED BLOOD CELL COUNT (BEAKER) (test yqux=967) 2.80 M/ L 4.20-5.80 HEMOGLOBIN (BEAKER) (test rtop=664) 8.3 GM/DL 13.0-16.8 HEMATOCRIT (BEAKER) (test jozs=744) 25.7 % 40.0-50.0 MEAN CORPUSCULAR VOLUME (BEAKER) (test crmi=680) 91.8 fL 82.0-98.0 MEAN CORPUSCULAR HEMOGLOBIN (BEAKER) (test 29.6 pg 27.0-33.0 omha=679) MEAN CORPUSCULAR HEMOGLOBIN CONC (BEAKER) (test 32.2 GM/DL 32.0-36.0 qche=693) RED CELL DISTRIBUTION WIDTH (BEAKER) (test 14.8 % 10.3-14.2 jqci=907) PLATELET COUNT (BEAKER) (test cmcp=044) 261 K/CU MM 150-430 MEAN PLATELET VOLUME (BEAKER) (test fhwb=552) 6.4 fL 6.5-10.5 NUCLEATED RED BLOOD CELLS (BEAKER) (test 0 /100 WBC 0-0 qary=900) NEUTROPHILS RELATIVE PERCENT (BEAKER) (test 88 % oddz=243) LYMPHOCYTES RELATIVE PERCENT (BEAKER) (test 6 % irog=242) MONOCYTES RELATIVE PERCENT (BEAKER) (test 6 % wfrc=340) EOSINOPHILS RELATIVE PERCENT (BEAKER) (test 0 % nraq=574) BASOPHILS RELATIVE PERCENT (BEAKER) (test 0 % oiuw=178) NEUTROPHILS ABSOLUTE COUNT (BEAKER) (test 21.00 K/ L 1.80-8.00 afry=068) LYMPHOCYTES ABSOLUTE COUNT (BEAKER) (test 1.16 K/ L 1.48-4.50 dbgu=783) MONOCYTES ABSOLUTE COUNT (BEAKER) (test 1.53 K/ L 0.00-1.30 nnea=948) EOSINOPHILS ABSOLUTE COUNT (BEAKER) (test 0.08 K/ L 0.00-0.50 cjio=392) BASOPHILS ABSOLUTE COUNT (BEAKER) (test 0.03 K/ L 0.00-0.20 tbyg=292) 0.00CALCIUM, [id number] 03:20:00 Test Item Value Reference Range Comments CALCIUM IONIZED (BEAKER) (test ureb=400) 1.02 mmol/L 1.12-1.27 PH, BLOOD (BEAKER) (test oujm=2180) 7.44 POCT-GLUCOSE [id number] 23:20:00 Test Item Value Reference Range Comments POC-GLUCOSE METER (BEAKER) 129 mg/dL 70-[address] [facility] [address] [facility] (test obay=7875) [facility] [address] POCT-GLUCOSE [id number] 16:47:00 Test Item Value Reference Range Comments POC-GLUCOSE METER (BEAKER) 120 mg/dL 70-[address] [facility] [address] (test aszo=7104) [place] [address] SPIN/CONCENTRATION [id number] 13:52:00 Test Item Value Reference Range Comments CONCENTRATION CHARGED (BEAKER) (test znpp=7845) Done SPIN/CONCENTRATION [id number] 13:52:00 Test Item Value Reference Range Comments CONCENTRATION CHARGED (BEAKER) (test qmva=2543) Done BLOOD GAS, [id number] 08:32:00 Test Item Value Reference Range Comments PH ARTERIAL (BEAKER) (test msmx=181) 7.41 7.35-7.45 PCO2 ARTERIAL (BEAKER) (test lhnn=784) 45 mmHg 35-45 PO2 ARTERIAL (BEAKER) (test tcfp=122) 137 mmHg 80-90 O2 SATURATION ARTERIAL (BEAKER) (test ynri=340) 98.7 % 96.0-97.0 HCO3 ARTERIAL (BEAKER) (test akhf=371) 28 mmol/L 21-29 BASE EXCESS ARTERIAL (BEAKER) (test uvir=546) 2.8 mmol/L -2.0-3.0 PATIENT TEMPERATURE (BEAKER) (test wtic=9646) 37.0 C FIO2 (BEAKER) (test xroo=3376) 40.0 % CBC W/PLT COUNT & AUTO [id number] 08:04:00 Test Item Value Reference Range Comments WHITE BLOOD CELL COUNT (BEAKER) (test okeo=768) 23.6 K/ L 4.0-10.0 RED BLOOD CELL COUNT (BEAKER) (test zqoo=325) 3.04 M/ L 4.20-5.80 HEMOGLOBIN (BEAKER) (test fgub=781) 8.9 GM/DL 13.0-16.8 HEMATOCRIT (BEAKER) (test bzrr=513) 26.9 % 40.0-50.0 MEAN CORPUSCULAR VOLUME (BEAKER) (test aifj=854) 88.6 fL 82.0-98.0 MEAN CORPUSCULAR HEMOGLOBIN (BEAKER) (test 29.4 pg 27.0-33.0 suql=112) MEAN CORPUSCULAR HEMOGLOBIN CONC (BEAKER) (test 33.2 GM/DL 32.0-36.0 zubh=986) RED CELL DISTRIBUTION WIDTH (BEAKER) (test 15.4 % 10.3-14.2 nlwq=199) PLATELET COUNT (BEAKER) (test npwj=394) 291 K/CU MM 150-430 MEAN PLATELET VOLUME (BEAKER) (test pgfm=448) 6.9 fL 6.5-10.5 NUCLEATED RED BLOOD CELLS (BEAKER) (test 0 /100 WBC 0-0 wstx=467) NEUTROPHILS RELATIVE PERCENT (BEAKER) (test 89 % nmgb=179) LYMPHOCYTES RELATIVE PERCENT (BEAKER) (test 5 % kjwg=664) MONOCYTES RELATIVE PERCENT (BEAKER) (test 6 % uxun=180) EOSINOPHILS RELATIVE PERCENT (BEAKER) (test 0 % gqwf=081) BASOPHILS RELATIVE PERCENT (BEAKER) (test 0 % bowl=980) NEUTROPHILS ABSOLUTE COUNT (BEAKER) (test 21.00 K/ L 1.80-8.00 ktsy=061) LYMPHOCYTES ABSOLUTE COUNT (BEAKER) (test 1.17 K/ L 1.48-4.50 xdzn=747) MONOCYTES ABSOLUTE COUNT (BEAKER) (test 1.37 K/ L 0.00-1.30 mnvw=565) EOSINOPHILS ABSOLUTE COUNT (BEAKER) (test 0.04 K/ L 0.00-0.50 fiss=793) BASOPHILS ABSOLUTE COUNT (BEAKER) (test 0.02 K/ L 0.00-0.20 jasr=362) 0.00(MANUAL DIFFERENTIAL)2016-12-13 08:04:00 Test Item Value Reference Range Comments TOTAL COUNTED (BEAKER) (test vdwz=3766) WBC MORPHOLOGY (BEAKER) (test vlbi=533) Normal PLT MORPHOLOGY (BEAKER) (test jmku=023) Normal HYPOCHROMIA (BEAKER) (test olfe=813) 1+ few POCT-GLUCOSE [id number] 07:23:00 Test Item Value Reference Range Comments POC-GLUCOSE METER (BEAKER) 116 mg/dL 70-110 TESTED AT [address] (test gamd=0924) [facility] [address] POCT-GLUCOSE [id number] 06:31:00 Test Item Value Reference Range Comments POC-GLUCOSE METER (BEAKER) 115 mg/dL 70-110 TESTED AT [address] (test kune=1909) [facility] [address] CALCIUM, [id number] 05:09:00 Test Item Value Reference Range Comments CALCIUM IONIZED (BEAKER) (test tcbv=407) 1.06 mmol/L 1.12-1.27 PH, BLOOD (BEAKER) (test jtxd=1826) 7.46 BASIC METABOLIC [id number] 04:49:00 Test Item Value Reference Range Comments SODIUM (BEAKER) (test 139 meq/L 136-145 yqnk=395) POTASSIUM (BEAKER) (test 4.5 meq/L 3.5-5.1 dilw=620) CHLORIDE (BEAKER) (test 106 meq/L 98-107 uenx=284) CO2 (BEAKER) (test 26 meq/L 22-29 srva=289) BLOOD UREA NITROGEN 14 mg/dL 7-21 (BEAKER) (test rwba=667) CREATININE (BEAKER) (test 2.20 mg/dL 0.57-1.25 chqw=505) GLUCOSE RANDOM (BEAKER) 138 mg/dL 70-105 (test xcmt=531) CALCIUM (BEAKER) (test 7.8 mg/dL 8.4-10.2 rkwg=213) EGFR (BEAKER) (test 31 mL/min/1.73 sq m ESTIMATED GFR IS NOT sgzw=7202) ACCURATE CREATININE CLEARANCE IN PREDICTING GLOMERULAR FILTRATION RATE. ESTIMATED GFR IS NOT APPLICABLE FOR DIALYSIS PATIENTS. [id number] 04:47:00 Test Item Value Reference Range Comments PHOSPHORUS (BEAKER) (test wnqf=764) 3.8 mg/dL 2.3-4.7 [id number] 04:47:00 Test Item Value Reference Range Comments MAGNESIUM (BEAKER) (test airy=332) 1.6 mg/dL 1.6-2.6 POCT-GLUCOSE [id number] 00:17:00 Test Item Value Reference Range Comments POC-GLUCOSE METER (BEAKER) 165 mg/dL 70-110 TESTED AT [place] [id number] [facility] (test nqdy=2031) [facility] [address] POCT-GLUCOSE [id number] 19:50:00 Test Item Value Reference Range Comments POC-GLUCOSE METER (BEAKER) 150 mg/dL 70-110 TESTED AT [address] (test tbge=1815) [facility] [address] GLUCOSE-STAT [id number] 16:40:00 Test Item Value Reference Range Comments GLUCOSE RANDOM (BEAKER) (test qfph=667) 93 mg/dL 70-110 SODIUM NA-STAT [id number] 16:40:00 Test Item Value Reference Range Comments SODIUM (BEAKER) (test wkcy=312) 136 meq/L 135-148 POTASSIUM-STAT [id number] 16:40:00 Test Item Value Reference Range Comments POTASSIUM (BEAKER) (test hcih=936) 3.8 meq/L 3.6-5.5 BLOOD GAS, [id number] 16:40:00 Test Item Value Reference Range Comments PH ARTERIAL (BEAKER) (test gerf=886) 7.45 7.35-7.45 PCO2 ARTERIAL (BEAKER) (test orqa=409) 46 mmHg 35-45 PO2 ARTERIAL (BEAKER) (test rszw=858) 371 mmHg 80-90 O2 SATURATION ARTERIAL (BEAKER) (test slth=988) 99.8 % 96.0-97.0 HCO3 ARTERIAL (BEAKER) (test dgsx=379) 31 mmol/L 21-29 BASE EXCESS ARTERIAL (BEAKER) (test brlr=337) 6.0 mmol/L -2.0-3.0 PATIENT TEMPERATURE (BEAKER) (test yjdq=2107) 37.0 C FIO2 (BEAKER) (test hzhc=4297) 60.0 % HGB/HCT (H&H) - STAT [id number] 16:40:00 Test Item Value Reference Range Comments HEMOGLOBIN (BEAKER) (test glta=124) 6.3 g/dL 13.0-16.8 HEMATOCRIT (BEAKER) (test otmo=076) 19.0 % 40.0-50.0 GLUCOSE-STAT [id number] 16:14:00 Test Item Value Reference Range Comments GLUCOSE RANDOM (BEAKER) (test icbj=019) 89 mg/dL 70-110 [id number] 13:22:00 Test Item Value Reference Range Comments PARTIAL THROMBOPLASTIN TIME (BEAKER) (test 80.1 seconds 22.5-36.0 sgam=029) POCT-GLUCOSE [id number] 11:57:00 Test Item Value Reference Range Comments POC-GLUCOSE METER (BEAKER) 82 mg/dL 70-110 TESTED AT [address] (test xnht=2610) [facility] [address] POCT-GLUCOSE [id number] 08:15:00 Test Item Value Reference Range Comments POC-GLUCOSE METER (BEAKER) 90 mg/dL 70-110 TESTED AT [place] [id number] [facility] (test avhn=0736) [facility] [address] CBC W/PLT COUNT & AUTO [id number] 05:50:00 Test Item Value Reference Range Comments WHITE BLOOD CELL COUNT (BEAKER) (test opcp=578) 13.9 K/ L 4.0-10.0 RED BLOOD CELL COUNT (BEAKER) (test oqwz=303) 2.42 M/ L 4.20-5.80 HEMOGLOBIN (BEAKER) (test haeh=746) 7.2 GM/DL 13.0-16.8 HEMATOCRIT (BEAKER) (test qvsx=912) 21.8 % 40.0-50.0 MEAN CORPUSCULAR VOLUME (BEAKER) (test dpda=962) 90.3 fL 82.0-98.0 MEAN CORPUSCULAR HEMOGLOBIN (BEAKER) (test 29.5 pg 27.0-33.0 yuxi=787) MEAN CORPUSCULAR HEMOGLOBIN CONC (BEAKER) (test 32.7 GM/DL 32.0-36.0 vhzp=242) RED CELL DISTRIBUTION WIDTH (BEAKER) (test 15.9 % 10.3-14.2 qygj=543) PLATELET COUNT (BEAKER) (test dunw=150) 282 K/CU MM 150-430 MEAN PLATELET VOLUME (BEAKER) (test cxbs=361) 6.8 fL 6.5-10.5 NUCLEATED RED BLOOD CELLS (BEAKER) (test 0 /100 WBC 0-0 eplf=266) NEUTROPHILS RELATIVE PERCENT (BEAKER) (test 78 % jfpp=703) LYMPHOCYTES RELATIVE PERCENT (BEAKER) (test 11 % qxhp=995) MONOCYTES RELATIVE PERCENT (BEAKER) (test 9 % yxjm=079) EOSINOPHILS RELATIVE PERCENT (BEAKER) (test 1 % pqmh=932) BASOPHILS RELATIVE PERCENT (BEAKER) (test 0 % uidm=966) NEUTROPHILS ABSOLUTE COUNT (BEAKER) (test 10.80 K/ L 1.80-8.00 qaez=240) LYMPHOCYTES ABSOLUTE COUNT (BEAKER) (test 1.57 K/ L 1.48-4.50 dlso=929) MONOCYTES ABSOLUTE COUNT (BEAKER) (test 1.30 K/ L 0.00-1.30 wxob=289) EOSINOPHILS ABSOLUTE COUNT (BEAKER) (test 0.20 K/ L 0.00-0.50 njvx=357) BASOPHILS ABSOLUTE COUNT (BEAKER) (test 0.04 K/ L 0.00-0.20 ozum=385) 0.00CALCIUM, [id number] 05:43:00 Test Item Value Reference Range Comments CALCIUM IONIZED (BEAKER) (test eabx=513) 0.97 mmol/L 1.12-1.27 PH, BLOOD (BEAKER) (test iiut=7505) 7.51 BASIC METABOLIC [id number] 05:35:00 Test Item Value Reference Range Comments SODIUM (BEAKER) (test 132 meq/L 136-145 kneb=840) POTASSIUM (BEAKER) (test 4.2 meq/L 3.5-5.1 bnbp=902) CHLORIDE (BEAKER) (test 102 meq/L 98-107 oqdz=569) CO2 (BEAKER) (test 22 meq/L 22-29 wjzv=199) BLOOD UREA NITROGEN 26 mg/dL 7-21 (BEAKER) (test brst=638) CREATININE (BEAKER) (test 3.57 mg/dL 0.57-1.25 pken=486) GLUCOSE RANDOM (BEAKER) 69 mg/dL 70-105 (test uoee=240) CALCIUM (BEAKER) (test 7.6 mg/dL 8.4-10.2 gjod=898) EGFR (BEAKER) (test 18 mL/min/1.73 sq m ESTIMATED GFR IS NOT cyml=2537) ACCURATE CREATININE CLEARANCE IN PREDICTING GLOMERULAR FILTRATION RATE. ESTIMATED GFR IS NOT APPLICABLE FOR DIALYSIS PATIENTS. [id number] 05:31:00 Test Item Value Reference Range Comments PHOSPHORUS (BEAKER) (test pdre=261) 3.7 mg/dL 2.3-4.7 [id number] 05:31:00 Test Item Value Reference Range Comments MAGNESIUM (BEAKER) (test fppr=591) 1.8 mg/dL 1.6-2.6 [id number] 05:30:00 Test Item Value Reference Range Comments PARTIAL THROMBOPLASTIN TIME (BEAKER) (test 44.4 seconds 22.5-36.0 vyea=009) PROTHROMBIN [id number] 05:29:00 Test Item Value Reference Range Comments PROTIME (BEAKER) (test vrsb=429) 14.5 seconds 11.7-14.7 INR (BEAKER) (test gvvm=027) 1.1 <=5.9 RECOMMENDED COUMADIN/WARFARIN INR THERAPY RANGESSTANDARD DOSE: 2.0 - 3.0 Includes: PROPHYLAXIS forvenous thrombosis, systemic embolization; TREATMENT for venous thrombosis and/or pulmonary embolus.HIGH RISK: Target INR is 2.5-3.5 for patients with mechanical heart valves.POCT-GLUCOSE [id number] 22:10:00 Test Item Value Reference Range Comments POC-GLUCOSE METER (BEAKER) 106 mg/dL 70-110 TESTED AT [address] (test rbsf=5765) [place] [address] POCT-GLUCOSE [id number] 17:31:00 Test Item Value Reference Range Comments POC-GLUCOSE METER (BEAKER) 114 mg/dL 70-110 TESTED AT [address] (test awse=1534) [place] [address] [id number] 15:36:00 Test Item Value Reference Range Comments PARTIAL THROMBOPLASTIN TIME (BEAKER) (test 38.5 seconds 22.5-36.0 inoh=216) PROTHROMBIN [id number] 15:35:00 Test Item Value Reference Range Comments PROTIME (BEAKER) (test bqyv=892) 14.6 seconds 11.7-14.7 INR (BEAKER) (test gdbf=872) 1.2 <=5.9 RECOMMENDED COUMADIN/WARFARIN INR THERAPY RANGESSTANDARD DOSE: 2.0 - 3.0 Includes: PROPHYLAXIS forvenous thrombosis, systemic embolization; TREATMENT for venous thrombosis and/or pulmonary embolus.HIGH RISK: Target INR is 2.5-3.5 for patients with mechanical heart valves.POCT-GLUCOSE [id number] 12:12:00 Test Item Value Reference Range Comments POC-GLUCOSE METER (BEAKER) 130 mg/dL 70-110 TESTED AT [address] (test cjoa=2306) [place] [address] POCT-GLUCOSE [id number] 08:04:00 Test Item Value Reference Range Comments POC-GLUCOSE METER (BEAKER) 96 mg/dL 70-110 TESTED AT [address] (test vecw=4948) [facility] [address] VANCOMYCIN LEVEL, [id number] 07:30:00 Test Item Value Reference Range Comments VANCOMYCIN RANDOM (BEAKER) (test diwv=259) 21.2 ug/mL Reference Range: No NormalsPOCT-GLUCOSE [id number] 20:25:00 Test Item Value Reference Range Comments POC-GLUCOSE METER (BEAKER) 152 mg/dL 70-110 TESTED AT [address] (test ccmf=9279) [place] [id number] POCT-GLUCOSE [id number] 17:23:00 Test Item Value Reference Range Comments POC-GLUCOSE METER (BEAKER) 161 mg/dL 70-110 TESTED AT [address] (test yfzl=8053) [place] [id number] [id number] 13:34:00 Test Item Value Reference Range Comments PROTIME (BEAKER) (test lhan=352) 15.4 seconds 11.7-14.7 INR (BEAKER) (test jwzy=328) 1.2 <=5.9 PARTIAL THROMBOPLASTIN TIME (BEAKER) (test 51.5 seconds 22.5-36.0 uhqc=041) RECOMMENDED COUMADIN/WARFARIN INR THERAPY RANGESSTANDARD DOSE: 2.0 - 3.0 Includes: PROPHYLAXIS forvenous thrombosis, systemic embolization; TREATMENT for venous thrombosis and/or pulmonary embolus.HIGH RISK: Target INR is 2.5-3.5 for patients with mechanical heart valves.POCT-GLUCOSE [id number] 12:11:00 Test Item Value Reference Range Comments POC-GLUCOSE METER (BEAKER) 140 mg/dL 70-110 TESTED AT [address] (test yatb=7486) [place] [address] CBC W/PLT COUNT & AUTO [id number] 08:02:00 Test Item Value Reference Range Comments WHITE BLOOD CELL COUNT (BEAKER) (test mmga=968) 14.8 K/ L 4.0-10.0 RED BLOOD CELL COUNT (BEAKER) (test dtgw=300) 2.40 M/ L 4.20-5.80 HEMOGLOBIN (BEAKER) (test wjai=614) 7.0 GM/DL 13.0-16.8 HEMATOCRIT (BEAKER) (test jzle=601) 21.6 % 40.0-50.0 MEAN CORPUSCULAR VOLUME (BEAKER) (test mqkc=187) 90.0 fL 82.0-98.0 MEAN CORPUSCULAR HEMOGLOBIN (BEAKER) (test 29.2 pg 27.0-33.0 ftyp=681) MEAN CORPUSCULAR HEMOGLOBIN CONC (BEAKER) (test 32.5 GM/DL 32.0-36.0 pbiy=351) RED CELL DISTRIBUTION WIDTH (BEAKER) (test 15.8 % 10.3-14.2 aimt=851) PLATELET COUNT (BEAKER) (test rqwj=888) 276 K/CU MM 150-430 MEAN PLATELET VOLUME (BEAKER) (test aaej=847) 6.8 fL 6.5-10.5 NUCLEATED RED BLOOD CELLS (BEAKER) (test 0 /100 WBC 0-0 ffxe=654) NEUTROPHILS RELATIVE PERCENT (BEAKER) (test 80 % kgbq=799) LYMPHOCYTES RELATIVE PERCENT (BEAKER) (test 10 % jaoi=348) MONOCYTES RELATIVE PERCENT (BEAKER) (test 9 % szej=344) EOSINOPHILS RELATIVE PERCENT (BEAKER) (test 1 % ywnc=512) BASOPHILS RELATIVE PERCENT (BEAKER) (test 0 % qkcy=455) NEUTROPHILS ABSOLUTE COUNT (BEAKER) (test 11.80 K/ L 1.80-8.00 yuvt=401) LYMPHOCYTES ABSOLUTE COUNT (BEAKER) (test 1.49 K/ L 1.48-4.50 ypwf=149) MONOCYTES ABSOLUTE COUNT (BEAKER) (test 1.28 K/ L 0.00-1.30 kdjg=126) EOSINOPHILS ABSOLUTE COUNT (BEAKER) (test 0.17 K/ L 0.00-0.50 fnyv=194) BASOPHILS ABSOLUTE COUNT (BEAKER) (test 0.04 K/ L 0.00-0.20 zets=854) 0.00VANCOMYCIN LEVEL, [id number] 07:43:00 Test Item Value Reference Range Comments VANCOMYCIN RANDOM (BEAKER) (test dmca=793) 31.1 ug/mL Reference Range: No NormalsBASIC METABOLIC [id number] 07:30:00 Test Item Value Reference Range Comments SODIUM (BEAKER) (test 134 meq/L 136-145 ewdi=189) POTASSIUM (BEAKER) (test 3.6 meq/L 3.5-5.1 afyy=155) CHLORIDE (BEAKER) (test 100 meq/L 98-107 kjkd=680) CO2 (BEAKER) (test 27 meq/L 22-29 nlql=015) BLOOD UREA NITROGEN 12 mg/dL 7-21 (BEAKER) (test blgl=300) CREATININE (BEAKER) (test 1.88 mg/dL 0.57-1.25 xdxs=562) GLUCOSE RANDOM (BEAKER) 109 mg/dL 70-105 (test zryg=048) CALCIUM (BEAKER) (test 7.7 mg/dL 8.4-10.2 hocm=978) EGFR (BEAKER) (test 37 mL/min/1.73 sq m ESTIMATED GFR IS NOT ypac=2349) ACCURATE CREATININE CLEARANCE IN PREDICTING GLOMERULAR FILTRATION RATE. ESTIMATED GFR IS NOT APPLICABLE FOR DIALYSIS PATIENTS. [id number] 07:25:00 Test Item Value Reference Range Comments PHOSPHORUS (BEAKER) (test urhw=560) 2.9 mg/dL 2.3-4.7 [id number] 07:25:00 Test Item Value Reference Range Comments MAGNESIUM (BEAKER) (test glcd=447) 1.3 mg/dL 1.6-2.6 POCT-GLUCOSE [id number] 07:18:00 Test Item Value Reference Range Comments POC-GLUCOSE METER (BEAKER) 107 mg/dL 70-[address] [facility] [address] [facility] (test syex=1692) [facility] [address] CALCIUM, [id number] 06:57:00 Test Item Value Reference Range Comments CALCIUM IONIZED (BEAKER) (test fozk=941) 1.04 mmol/L 1.12-1.27 PH, BLOOD (BEAKER) (test wmbb=2849) 7.44 BLOOD [id number] 17:00:00 Test Item Value Reference Range Comments CULTURE (BEAKER) (test vhji=3860) No growth in 5 days BLOOD [id number] 17:00:00 Test Item Value Reference Range Comments CULTURE (BEAKER) (test yfhe=1520) No growth in 5 days POCT-GLUCOSE [id number] 12:01:00 Test Item Value Reference Range Comments POC-GLUCOSE METER (BEAKER) 128 mg/dL 70-[address] [facility] [address] [facility] (test bunu=3906) [facility] [address] POCT-GLUCOSE [id number] 07:48:00 Test Item Value Reference Range Comments POC-GLUCOSE METER (BEAKER) 100 mg/dL 70-110 TESTED AT [place] [id number] [facility] (test gcca=8584) [facility] [address] VANCOMYCIN LEVEL, [id number] 05:36:00 Test Item Value Reference Range Comments VANCOMYCIN RANDOM (BEAKER) (test drcy=060) 26.8 ug/mL Reference Range: No NormalsSPUTUM CULTURE + GRAM [id number] 00:09:00 Test Item Value Reference Range Comments CULTURE (BEAKER) (test Oropharyngeal contamination, yrls=3052) specimen rejected. Recollect requested. GRAM STAIN RESULT (BEAKER) No WBCs (test rneu=2013) GRAM STAIN RESULT (BEAKER) >25 epithelial cells (test bafz=82260) GRAM STAIN RESULT (BEAKER) 4+ gram positive rods (test wckx=11474) GRAM STAIN RESULT (BEAKER) 4+ gram positive cocci in pairs (test jsog=843768) GRAM STAIN RESULT (BEAKER) 4+ budding yeast (test bill=597098) POCT-GLUCOSE [id number] 20:17:00 Test Item Value Reference Range Comments POC-GLUCOSE METER (BEAKER) 111 mg/dL 70-[address] [facility] [address] [facility] (test vfwn=8309) [facility] [address] TSH/FREE T4 IF [id number] 18:39:00 Test Item Value Reference Range Comments THYROID STIMULATING HORMONE (BEAKER) (test 3.14 uIU/mL 0.35-4.94 jdgt=907) VITAMIN B12 AND [id number] 18:39:00 Test Item Value Reference Range Comments VITAMIN B12 (BEAKER) (test emyg=703) 1407 pg/mL 213-816 FOLATE (BEAKER) (test bmnk=771) 16.4 ng/mL >=7.0 Effective 09/08/2014: Folate Reference Range ChangeNew: >=7.0 Previous: & gt;=[id number] 18:12:00 Test Item Value Reference Range Comments CALCIUM (BEAKER) (test ujqt=784) 8.2 mg/dL 8.4-10.2 PROTHROMBIN [id number] 18:07:00 Test Item Value Reference Range Comments PROTIME (BEAKER) (test ydlv=212) 15.5 seconds 11.7-14.7 INR (BEAKER) (test ksnh=439) 1.2 <=5.9 RECOMMENDED COUMADIN/WARFARIN INR THERAPY RANGESSTANDARD DOSE: 2.0 - 3.0 Includes: PROPHYLAXIS forvenous thrombosis, systemic embolization; TREATMENT for venous thrombosis and/or pulmonary embolus.HIGH RISK: Target INR is 2.5-3.5 for patients with mechanical heart valves.[id number] 18:06:00 Test Item Value Reference Range Comments PHOSPHORUS (BEAKER) (test gguw=117) 3.4 mg/dL 2.3-4.7 [id number] 18:06:00 Test Item Value Reference Range Comments MAGNESIUM (BEAKER) (test ivjw=924) 1.5 mg/dL 1.6-2.6 HEPATIC FUNCTION [id number] 18:06:00 Test Item Value Reference Range Comments TOTAL PROTEIN (BEAKER) (test vrai=702) 5.9 gm/dL 6.0-8.3 ALBUMIN (BEAKER) (test edjg=7155) 2.3 g/dL 3.5-5.0 BILIRUBIN TOTAL (BEAKER) (test eiub=448) 0.4 mg/dL 0.2-1.2 BILIRUBIN DIRECT (BEAKER) (test vdai=469) 0.2 mg/dL 0.1-0.5 ALKALINE PHOSPHATASE (BEAKER) (test vrcq=931) 118 U/L 40-150 AST (SGOT) (BEAKER) (test hoki=984) 11 U/L 5-34 ALT (SGPT) (BEAKER) (test hxpz=357) 7 U/L 6-55 [id number] 17:57:00 Test Item Value Reference Range Comments AMMONIA (BEAKER) (test yjkd=710) 23 mol/L 18-72 POCT-GLUCOSE [id number] 17:55:00 Test Item Value Reference Range Comments POC-GLUCOSE METER (BEAKER) 137 mg/dL 70-110 TESTED AT [address] (test jhpc=9130) [facility] [address] POCT-GLUCOSE [id number] 17:01:00 Test Item Value Reference Range Comments POC-GLUCOSE METER (BEAKER) 62 mg/dL 70-110 TESTED AT [place] [id number] [facility] (test owzw=9149) [facility] [address] [id number] 15:09:00 Test Item Value Reference Range Comments SODIUM (BEAKER) (test wwpr=746) 138 meq/L 136-145 POTASSIUM (BEAKER) (test 4.0 meq/L 3.5-5.1 Specimen slightly hemolyzed urpt=377) CHLORIDE (BEAKER) (test 105 meq/L 98-107 tceg=147) CO2 (BEAKER) (test avqt=577) 23 meq/L 22-29 BLOOD GAS, [id number] 14:56:00 Test Item Value Reference Range Comments PH ARTERIAL (BEAKER) (test xpqr=751) 7.53 7.35-7.45 PCO2 ARTERIAL (BEAKER) (test oekd=909) 35 mmHg 35-45 PO2 ARTERIAL (BEAKER) (test rpuu=334) 70 mmHg 80-90 O2 SATURATION ARTERIAL (BEAKER) (test fpmn=331) 95.5 % 96.0-97.0 HCO3 ARTERIAL (BEAKER) (test ynda=420) 28 mmol/L 21-29 BASE EXCESS ARTERIAL (BEAKER) (test rxuy=797) 5.2 mmol/L -2.0-3.0 PATIENT TEMPERATURE (BEAKER) (test xwvs=3495) 37.3 C FIO2 (BEAKER) (test wmka=5985) 21.0 % CBC W/PLT COUNT & AUTO [id number] 14:56:00 Test Item Value Reference Range Comments WHITE BLOOD CELL COUNT (BEAKER) (test yfhx=706) 18.1 K/ L 4.0-10.0 RED BLOOD CELL COUNT (BEAKER) (test afvs=576) 2.43 M/ L 4.20-5.80 HEMOGLOBIN (BEAKER) (test irso=771) 7.3 GM/DL 13.0-16.8 HEMATOCRIT (BEAKER) (test ypof=316) 22.2 % 40.0-50.0 MEAN CORPUSCULAR VOLUME (BEAKER) (test tbsj=208) 91.7 fL 82.0-98.0 MEAN CORPUSCULAR HEMOGLOBIN (BEAKER) (test 30.0 pg 27.0-33.0 amfa=315) MEAN CORPUSCULAR HEMOGLOBIN CONC (BEAKER) (test 32.7 GM/DL 32.0-36.0 ffkz=788) RED CELL DISTRIBUTION WIDTH (BEAKER) (test 15.7 % 10.3-14.2 thxn=800) PLATELET COUNT (BEAKER) (test lrsj=951) 290 K/CU MM 150-430 MEAN PLATELET VOLUME (BEAKER) (test dvez=980) 6.9 fL 6.5-10.5 NUCLEATED RED BLOOD CELLS (BEAKER) (test 0 /100 WBC 0-0 epdz=066) NEUTROPHILS RELATIVE PERCENT (BEAKER) (test 84 % vnku=360) LYMPHOCYTES RELATIVE PERCENT (BEAKER) (test 8 % cuhx=063) MONOCYTES RELATIVE PERCENT (BEAKER) (test 8 % vniq=619) EOSINOPHILS RELATIVE PERCENT (BEAKER) (test 0 % kmqu=597) BASOPHILS RELATIVE PERCENT (BEAKER) (test 0 % oqlf=222) NEUTROPHILS ABSOLUTE COUNT (BEAKER) (test 15.10 K/ L 1.80-8.00 hwjy=437) LYMPHOCYTES ABSOLUTE COUNT (BEAKER) (test 1.51 K/ L 1.48-4.50 mzfn=863) MONOCYTES ABSOLUTE COUNT (BEAKER) (test 1.43 K/ L 0.00-1.30 quum=850) EOSINOPHILS ABSOLUTE COUNT (BEAKER) (test 0.03 K/ L 0.00-0.50 vxsn=302) BASOPHILS ABSOLUTE COUNT (BEAKER) (test 0.02 K/ L 0.00-0.20 wdqc=787) 0.00POCT-GLUCOSE [id number] 12:19:00 Test Item Value Reference Range Comments POC-GLUCOSE METER (BEAKER) 75 mg/dL 70-[address] [facility] [address] [facility] (test ceed=0739) [facility] [address] [id number] 09:59:00 Test Item Value Reference Range Comments HAPTOGLOBIN (BEAKER) (test geqo=946) > mg/dL 14- Effective 09/08/2014: Reference Range ChangeNew: 14-258 Previous: 36- 195LACTATE DEHYDROGENASE (LDH)2016-12-08 09:56:00 Test Item Value Reference Range Comments LACTATE DEHYDROGENASE (BEAKER) (test cnbs=169) 234 U/L 125-220 [id number] 09:35:00 Test Item Value Reference Range Comments FIBRINOGEN LEVEL (BEAKER) (test jqjx=956) 554 mg/dl 225-434 BASIC METABOLIC [id number] 08:56:00 Test Item Value Reference Range Comments SODIUM (BEAKER) (test 139 meq/L 136-145 fgci=494) POTASSIUM (BEAKER) (test 3.0 meq/L 3.5-5.1 jtsq=034) CHLORIDE (BEAKER) (test 114 meq/L 98-107 tuww=095) CO2 (BEAKER) (test 18 meq/L 22-29 iiwj=294) BLOOD UREA NITROGEN 14 mg/dL 7-21 (BEAKER) (test ywrr=613) CREATININE (BEAKER) (test 1.68 mg/dL 0.57-1.25 dxxq=248) GLUCOSE RANDOM (BEAKER) 65 mg/dL 70-105 (test otze=489) CALCIUM (BEAKER) (test 6.3 mg/dL 8.4-10.2 vyys=267) EGFR (BEAKER) (test 42 mL/min/1.73 sq m ESTIMATED GFR IS NOT xool=4431) ACCURATE CREATININE CLEARANCE IN PREDICTING GLOMERULAR FILTRATION RATE. ESTIMATED GFR IS NOT APPLICABLE FOR DIALYSIS PATIENTS. CBC W/PLT COUNT & AUTO [id number] 08:55:00 Test Item Value Reference Range Comments WHITE BLOOD CELL COUNT (BEAKER) (test rwly=633) 12.8 K/ L 4.0-10.0 RED BLOOD CELL COUNT (BEAKER) (test igyb=444) 1.79 M/ L 4.20-5.80 HEMOGLOBIN (BEAKER) (test otkx=019) 5.4 GM/DL 13.0-16.8 HEMATOCRIT (BEAKER) (test rnbm=891) 16.7 % 40.0-50.0 MEAN CORPUSCULAR VOLUME (BEAKER) (test graa=096) 93.5 fL 82.0-98.0 MEAN CORPUSCULAR HEMOGLOBIN (BEAKER) (test 30.2 pg 27.0-33.0 crzk=031) MEAN CORPUSCULAR HEMOGLOBIN CONC (BEAKER) (test 32.3 GM/DL 32.0-36.0 mnpr=421) RED CELL DISTRIBUTION WIDTH (BEAKER) (test 15.9 % 10.3-14.2 xfah=039) PLATELET COUNT (BEAKER) (test javv=594) 211 K/CU MM 150-430 MEAN PLATELET VOLUME (BEAKER) (test ydrh=191) 6.8 fL 6.5-10.5 NUCLEATED RED BLOOD CELLS (BEAKER) (test 0 /100 WBC 0-0 gpyl=388) NEUTROPHILS RELATIVE PERCENT (BEAKER) (test 82 % pzpp=137) LYMPHOCYTES RELATIVE PERCENT (BEAKER) (test 8 % tgzu=646) MONOCYTES RELATIVE PERCENT (BEAKER) (test 9 % zoek=018) EOSINOPHILS RELATIVE PERCENT (BEAKER) (test 0 % ilfb=639) BASOPHILS RELATIVE PERCENT (BEAKER) (test 0 % kxqf=556) NEUTROPHILS ABSOLUTE COUNT (BEAKER) (test 10.50 K/ L 1.80-8.00 opmg=971) LYMPHOCYTES ABSOLUTE COUNT (BEAKER) (test 1.08 K/ L 1.48-4.50 sxgy=040) MONOCYTES ABSOLUTE COUNT (BEAKER) (test 1.17 K/ L 0.00-1.30 vhdi=918) EOSINOPHILS ABSOLUTE COUNT (BEAKER) (test 0.06 K/ L 0.00-0.50 ohwv=237) BASOPHILS ABSOLUTE COUNT (BEAKER) (test 0.04 K/ L 0.00-0.20 vsbp=823) 0.00LACTIC ACID, VENOUS, WHOLE [id number] 08:52:00 Test Item Value Reference Range Comments LACTATE BLOOD VENOUS (2) (BEAKER) (test 0.5 mmol/L 0.5-2.2 nxbc=4928) Effective 02/23/2016: Units/Reference Range ChangeNew: 0.5-2.2 mmol/L Previous: 5 -20 mg/dLPOCT-GLUCOSE [id number] 07:40:00 Test Item Value Reference Range Comments POC-GLUCOSE METER (BEAKER) 80 mg/dL 70-[address] [facility] [address] (test hyvz=4927) [facility] [address] POCT-GLUCOSE [id number] 21:47:00 Test Item Value Reference Range Comments POC-GLUCOSE METER (BEAKER) 97 mg/dL 70-110 TESTED AT [address] (test nwvk=7603) [facility] [address] POCT-GLUCOSE [id number] 17:45:00 Test Item Value Reference Range Comments POC-GLUCOSE METER (BEAKER) 115 mg/dL 70-110 TESTED AT [address] (test vffj=5304) [facility] [address] POCT-GLUCOSE [id number] 12:56:00 Test Item Value Reference Range Comments POC-GLUCOSE METER (BEAKER) 120 mg/dL 70-110 TESTED AT [address] (test gqft=5027) [facility] [address] POCT-GLUCOSE [id number] 12:56:00 Test Item Value Reference Range Comments POC-GLUCOSE METER (BEAKER) 107 mg/dL 70-110 TESTED AT [address] (test qoap=1518) [facility] [address] CBC W/PLT COUNT & AUTO [id number] 11:18:00 Test Item Value Reference Range Comments WHITE BLOOD CELL COUNT (BEAKER) (test bxjo=108) 21.4 K/ L 4.0-10.0 RED BLOOD CELL COUNT (BEAKER) (test kdoj=565) 2.63 M/ L 4.20-5.80 HEMOGLOBIN (BEAKER) (test cdmb=354) 7.5 GM/DL 13.0-16.8 HEMATOCRIT (BEAKER) (test irsn=784) 24.1 % 40.0-50.0 MEAN CORPUSCULAR VOLUME (BEAKER) (test jhcl=770) 91.8 fL 82.0-98.0 MEAN CORPUSCULAR HEMOGLOBIN (BEAKER) (test 28.6 pg 27.0-33.0 jdjg=239) MEAN CORPUSCULAR HEMOGLOBIN CONC (BEAKER) (test 31.1 GM/DL 32.0-36.0 izmc=859) RED CELL DISTRIBUTION WIDTH (BEAKER) (test 15.4 % 10.3-14.2 ledk=806) PLATELET COUNT (BEAKER) (test slmo=011) 297 K/CU MM 150-430 MEAN PLATELET VOLUME (BEAKER) (test efwo=860) 7.0 fL 6.5-10.5 NUCLEATED RED BLOOD CELLS (BEAKER) (test 0 /100 WBC 0-0 lfho=850) NEUTROPHILS RELATIVE PERCENT (BEAKER) (test 88 % venh=320) LYMPHOCYTES RELATIVE PERCENT (BEAKER) (test 6 % osxe=431) MONOCYTES RELATIVE PERCENT (BEAKER) (test 6 % bkaa=262) EOSINOPHILS RELATIVE PERCENT (BEAKER) (test 0 % ikso=680) BASOPHILS RELATIVE PERCENT (BEAKER) (test 0 % zhav=828) NEUTROPHILS ABSOLUTE COUNT (BEAKER) (test 18.90 K/ L 1.80-8.00 kfjh=675) LYMPHOCYTES ABSOLUTE COUNT (BEAKER) (test 1.25 K/ L 1.48-4.50 ncgu=597) MONOCYTES ABSOLUTE COUNT (BEAKER) (test 1.26 K/ L 0.00-1.30 qssb=502) EOSINOPHILS ABSOLUTE COUNT (BEAKER) (test 0.05 K/ L 0.00-0.50 hihe=740) BASOPHILS ABSOLUTE COUNT (BEAKER) (test 0.01 K/ L 0.00-0.20 etjn=307) 0.000.520.000.000.560.000.000.000.00(MANUAL DIFFERENTIAL)2016-12-07 11:18:00 Test Item Value Reference Range Comments TOTAL COUNTED (BEAKER) (test zefu=0794) CATHETER TIP [id number] 09:38:00 Test Item Value Reference Range Comments CULTURE (BEAKER) (test METHICILLIN RESISTANT 15-29 Colonies On dzyn=4676) STAPHYLOCOCCUS AUREUS Direct Plate Methicillin resistant Staphylococcus aureus Clindamycin (test code=10) Erythromycin (test code=4) Linezolid (test code=40) Oxacillin (test code=14) Rifampin (test code=43) Tetracycline (test code=2) Trimethoprim + Sulfamethoxazole (test code=47) Vancomycin (test code=13) CULTURE (BEAKER) (test <15 Colonies On Direct zqqm=[id number]) Plate Methicillin resistant Staphylococcus aureusof a second type CALCIUM, [id number] 09:12:00 Test Item Value Reference Range Comments CALCIUM IONIZED (BEAKER) (test yqhb=687) 1.04 mmol/L 1.12-1.27 PH, BLOOD (BEAKER) (test nocu=5595) 7.40 BASIC METABOLIC [id number] 07:52:00 Test Item Value Reference Range Comments SODIUM (BEAKER) (test 134 meq/L 136-145 mbus=173) POTASSIUM (BEAKER) (test 4.1 meq/L 3.5-5.1 ieze=331) CHLORIDE (BEAKER) (test 103 meq/L 98-107 agjq=048) CO2 (BEAKER) (test 20 meq/L 22-29 lnhg=800) BLOOD UREA NITROGEN 37 mg/dL 7-21 (BEAKER) (test ebtk=607) CREATININE (BEAKER) (test 3.25 mg/dL 0.57-1.25 magh=771) GLUCOSE RANDOM (BEAKER) 129 mg/dL 70-105 (test prnm=390) CALCIUM (BEAKER) (test 8.1 mg/dL 8.4-10.2 pkdj=487) EGFR (BEAKER) (test 20 mL/min/1.73 sq m ESTIMATED GFR IS NOT qlbh=5698) ACCURATE CREATININE CLEARANCE IN PREDICTING GLOMERULAR FILTRATION RATE. ESTIMATED GFR IS NOT APPLICABLE FOR DIALYSIS PATIENTS. [id number] 07:48:00 Test Item Value Reference Range Comments PHOSPHORUS (BEAKER) (test rfer=965) 4.8 mg/dL 2.3-4.7 [id number] 07:48:00 Test Item Value Reference Range Comments MAGNESIUM (BEAKER) (test wnfx=439) 1.9 mg/dL 1.6-2.6 ANAEROBIC [id number] 02:42:00 Test Item Value Reference Range Comments CULTURE (BEAKER) (test djku=5621) No anaerobes isolated POCT-GLUCOSE [id number] 20:57:00 Test Item Value Reference Range Comments POC-GLUCOSE METER (BEAKER) 191 mg/dL 70-110 TESTED AT [address] (test wqsf=4009) [facility] [address] VANCOMYCIN LEVEL, [id number] 17:35:00 Test Item Value Reference Range Comments VANCOMYCIN RANDOM (BEAKER) (test jqwg=138) 21.9 ug/mL Reference Range: No NormalsPOCT-GLUCOSE [id number] 13:28:00 Test Item Value Reference Range Comments POC-GLUCOSE METER (BEAKER) 202 mg/dL 70-[address] [facility] [address] [place] [address] (test egxi=0483) [facility] [address] POCT-GLUCOSE [id number] 08:30:00 Test Item Value Reference Range Comments POC-GLUCOSE METER (BEAKER) 144 mg/dL 70-[address] [facility] [address] (test uejg=7006) [facility] [address] BASIC METABOLIC [id number] 07:04:00 Test Item Value Reference Range Comments SODIUM (BEAKER) (test 134 meq/L 136-145 dcdd=134) POTASSIUM (BEAKER) (test 3.8 meq/L 3.5-5.1 eges=510) CHLORIDE (BEAKER) (test 104 meq/L 98-107 awcd=495) CO2 (BEAKER) (test 21 meq/L 22-29 rlll=708) BLOOD UREA NITROGEN 33 mg/dL 7-21 (BEAKER) (test wkgs=845) CREATININE (BEAKER) (test 2.91 mg/dL 0.57-1.25 mjss=074) GLUCOSE RANDOM (BEAKER) 124 mg/dL 70-105 (test vbcp=404) CALCIUM (BEAKER) (test 7.8 mg/dL 8.4-10.2 yfpw=908) EGFR (BEAKER) (test 22 mL/min/1.73 sq m ESTIMATED GFR IS NOT ulqr=1884) ACCURATE CREATININE CLEARANCE IN PREDICTING GLOMERULAR FILTRATION RATE. ESTIMATED GFR IS NOT APPLICABLE FOR DIALYSIS PATIENTS. PROTHROMBIN [id number] 07:03:00 Test Item Value Reference Range Comments PROTIME (BEAKER) (test noiy=037) 14.7 seconds 11.7-14.7 INR (BEAKER) (test xzjr=115) 1.2 <=5.9 RECOMMENDED COUMADIN/WARFARIN INR THERAPY RANGESSTANDARD DOSE: 2.0 - 3.0 Includes: PROPHYLAXIS forvenous thrombosis, systemic embolization; TREATMENT for venous thrombosis and/or pulmonary embolus.HIGH RISK: Target INR is 2.5-3.5 for patients with mechanical heart valves.[id number] 07:01:00 Test Item Value Reference Range Comments PHOSPHORUS (BEAKER) (test iajs=450) 3.9 mg/dL 2.3-4.7 [id number] 07:01:00 Test Item Value Reference Range Comments MAGNESIUM (BEAKER) (test yock=777) 1.7 mg/dL 1.6-2.6 CALCIUM, [id number] 06:45:00 Test Item Value Reference Range Comments CALCIUM IONIZED (BEAKER) (test uaez=911) 1.00 mmol/L 1.12-1.27 PH, BLOOD (BEAKER) (test jtwq=2948) 7.43 POCT-GLUCOSE [id number] 21:06:00 Test Item Value Reference Range Comments POC-GLUCOSE METER (BEAKER) 167 mg/dL 70-110 TESTED AT [address] (test kccd=7431) [place] [address] POCT-GLUCOSE [id number] 17:43:00 Test Item Value Reference Range Comments POC-GLUCOSE METER (BEAKER) 212 mg/dL 70-110 TESTED AT [address] (test qhhw=1060) [place] [address]
[2018-02-27] MEDS ORDERED: ALBUTEROL 2.5 MG/3 ML NEB SOL ONE (03:04)
[2018-02-27] MEDS ORDERED: IPRATROPIUM BROM 0.5MG/2.5ML ONE (03:05)
[2018-02-27 03:23] LABS: Arterial Blood Carboxyhemoglob 1.8 % (0-1.5); Blood Gas Oxyhemoglobin 93.9 % (94-97); Blood O2 Saturation 96.9 % (92-98.5)
[2018-02-27 03:25] LABS: Protime INR 1.03
[2018-02-27 03:33] LABS: Absolute Lymphocytes (CBC) 0.5 K/uL (0.7-4.9); Absolute Neutrophil 11.4 K/uL (1.8-8.0); Basophils % 0.8 % (0-1.3); Eosinophils % 1.4 % (0-4.4); Hematocrit 24.6 % (39.6-49.0); Lymphocytes % 3.5 % (15.3-44.8); MCH 27.1 pg (27.0-35.0); MCV 83.7 fL (80-100); MPV 8.2 fL (7.6-11.3); Monocytes % 7.3 % (3.3-12.3); RBC Red Blood Cell Count 2.93 M/uL (4.33-5.43)
[2018-02-27 03:44] LABS: Potassium 4.5 mEq/L (3.6-5.0)
[2018-02-27 03:50] LABS: Albumin 3.2 g/dL (3.2-5.5); Bilirubin Direct 0.1 mg/dL (0-0.2); Bilirubin Total 0.7 mg/dL (0.3-1.2); Magnesium 2.2 mg/dL (1.8-2.5); Protein, Total 6.8 g/dL (6.0-8.3)
[2018-02-27 03:53] LABS: CKMB Creatine Kinase MB 6.4 ng/ml (0.3-4.0)
[2018-02-27 04:02] LABS: Blood Morphology Comment NOTED (NOT SEEN); Platelet Estimate ADEQ; Teardrop Cell 2+
--- NOTE | 2018-02-27 04:12 | ER ---
Nurse's Notes [facility] Name: Federico Martinez Age: 57 yrs Sex: Male : 1960 Arrival Date: 02/27/2018 Time: 02:51 Bed 5 Private MD: Diagnosis: Acute dyspnea. Volume overload. Possible pneumonia. Chronic renal disease Presentation: 02/27 02:52 Presenting complaint: EMS states: half-way called for pt with low O2 saturation. Pt tl2 86 % on RA, 96% on 6 L per nc. Pt was dialyzed today. Transition of care: patient was received from another setting of care (long-term care facility), [facility]. Onset of symptoms was February 27, 2018 at 02:20. Initial Sepsis Screen: Does the patient meet any 2 criteria? No. Patient's initial sepsis screen is negative. Does the patient have a suspected source of infection? No. Patient's initial sepsis screen is negative. Care prior to arrival: Oxygen administered. via nasal cannula. 02:52 Method Of Arrival: EMS: [facility] tl2 02:52 Acuity: CHARLES 2 tl2 Triage Assessment: 03:03 General: Appears in no apparent distress. uncomfortable, Behavior is cooperative, tl2 appropriate for age, anxious. Pain: Complains of pain in chronic pain. Neuro: Level of Consciousness is awake, alert, obeys commands, Oriented to person, place, time, situation. Respiratory: Airway is patent Respiratory effort is even, unlabored, Respiratory pattern is regular, symmetrical. GI: Reports nausea. : No signs and/or symptoms were reported regarding the genitourinary system. :. Derm: Skin is pink, warm \T\ dry. Historical: - Allergies: 03:03 No Known Allergies; tl2 - Home Meds: 03:03 acetaminophen 325 mg Oral tab 2 tabs every 6 hours [Active]; acetaminophen 650 mg tl2 Rectal supp 1 suppository every 6 hours for for mild pain or fever >100.1 [Active]; alprazolam 1 mg Oral tab Tue, Elissa and Sat for anxiety [Active]; alprazolam 0.5 mg Oral tab 1 tab nightly for Anxiety [Active]; aspirin 81 mg Oral chew 1 tab once daily [Active]; atorvastatin 10 mg Oral tab 1 tab once daily [Active]; calcitrol 0.5 mcg daily [Active]; carvedilol 25 mg Oral tab 2 times per day [Active]; Chloraseptic Throat [place] 1.4 % mucous membrane spra 2 spray every 4 hours [Active]; clonidine HCl 0.3 mg Oral tab 1 tab three times a day [Active]; donepezil 10 mg Oral tab nightly [Active]; doxazosin 4 mg Oral tab 1 tab every 12 hours for Hypertension [Active]; fentanyl 25 mcg/hr Topical pt72 1 patch every 72 hours [Active]; Fleet Enema 19-7 gram/118 mL Rectal enem every 24 hours prn constipation [Active]; folic acid 1 mg Oral tab 1 tab once daily [Active]; furosemide 40 mg Oral tab 1 tab once daily [Active]; gabapentin 100 mg Oral cap twice a day [Active]; Ria-Tussin 975-742-74nt/5mL Oral liqd 30 mL every 4 hours for Cough [Active]; losartan 50 mg Oral tab 1 tab 2 times per day [Active]; Milk of Magnesia Oral 30 mL once daily for constipation [Active]; Nepro Carb Steady Oral [Active]; nifedipine 90 mg Oral TbER [Active]; nitroglycerin 0.4 mg SL subl 1 tab every 5 minutes [Active]; [place] 7.5-325 mg Oral tab 1 tab every 6 hours for Pain [Active]; [place] 5-325 mg Oral tab 1 tab 2 times daily for Pain [Active]; Novolin 70/30 suspension 100 unit/ mL. Inject 7 units SQ BID [Active]; ondansetron HCl 4 mg Oral tab 1 tabs every 6 hours [Active]; pramipexole 0.25 mg Oral tab 1 tab nightly for Idiopathic Parkinsonism [Active]; Protonix 40 mg Oral TbEC 1 tab before meals [Active]; ranolazine 500 mg Oral 1 tab 2 times per day [Active]; Saline nasal [Active]; Tylenol-Codeine #4 300-60 mg Oral tab 1 tab every 6 hours for Pain [Active]; venlafaxine 150 mg Oral cp24 twice a day [Active]; Vitamin D Oral 5000 unit daily [Active]; Xanax 0.5 mg Oral tab 1 tab every 8 hours PRN for Anxiety [Active]; ziprasidone HCl 40 mg Oral cap 2 times per day [Active]; - PMHx: 03:03 ADD/ADHD; Anemia; Anxiety; Asthma; Atherosclerotic heart disease; Bipolar disorder; tl2 Dementia; Diabetes - IDDM; Dialysis; ESRD; GERD; GI Hemorrhage; HEART FAILURE; Hypertension; insomnia; Major Depressive Disorder; osteomyelitis; Paraplegia; Parkinsons; Post Laminectomy Syndrome; pressure ulcer of left ankle stage II; Pressure ulcer of right ankle, stage II; Sacral Pressure Ulcer Stage III; - Immunization history:: Adult Immunizations up to date. - Social history:: Smoking status: Patient/guardian denies using tobacco. Screenin:52 Abuse screen: Denies threats or abuse. Denies injuries from another. Nutritional aa1 screening: No deficits noted. Tuberculosis screening: No symptoms or risk factors identified. Fall Risk Secondary diagnosis (15 points) impaired mobility, Gait- Impaired (20 pts.). Assessment: 03:06 General: see triage assessment. tl2 04:00 Reassessment: Patient appears in no apparent distress at this time. Patient and/or mg2 family updated on plan of care and expected duration. Pain level reassessed. Patient is alert, oriented x 3, equal unlabored respirations, skin warm/dry/pink. 04:02 Reassessment: Patient appears in no apparent distress at this time. No changes from tl2 previously documented assessment. Patient and/or family updated on plan of care and expected duration. Pain level reassessed. Patient is alert, oriented x 3, equal unlabored respirations, skin warm/dry/pink. 05:12 Reassessment: Patient appears in no apparent distress at this time. Patient and/or mg2 family updated on plan of care and expected duration. Pain level reassessed. Patient is alert, oriented x 3, equal unlabored respirations, skin warm/dry/pink. 05:45 Reassessment: report given to LIZABETH Chaves. mg2 Vital Signs: 03:03 BP 149 / 65; Pulse 84; Resp 20; Temp 98.2; Pulse Ox 94% on 3 lpm NC; Weight 87 kg; tl2 Height 5 ft. 7 in. (170.18 cm); Pain 8/10; 03:53 BP 143 / 79; Pulse 71; Resp 20; Pulse Ox 100% on Nebulizer Mask; mg2 04:59 BP 123 / 78; Pulse 78; Resp 20; Pulse Ox 100% on 3 lpm NC; Pain 0/10; mg2 03:03 Body Mass Index 30.04 (87.00 kg, 170.18 cm) tl2 ED Course: 02:51 Patient arrived in ED. aa1 02:52 Kenan Britton MD is Attending Physician. pkl 02:52 Mel Du, LIZABETH is Primary Nurse. tl2 02:52 Patient has correct armband on for positive identification. Bed in low position. Call aa1 light in reach. Side rails up X2. Pulse ox on. NIBP on. Warm blanket given. 02:53 Oxygen administration via nasal cannula \T\ 3L/min. aa1 02:56 Triage completed. tl2 03:03 Arm band placed on right wrist. tl2 03:15 Inserted saline lock: 20 gauge in right antecubital area, using aseptic technique. mg2 Blood collected. 03:18 EKG done, by ED staff, reviewed by Kenan Britton MD ABG drawn. by RT staff, on oxygen. aa1 03:30 XRAY Chest (1 view) In Process Unspecified. EDMS 03:30 X-ray completed. Portable x-ray completed in exam room. Patient tolerated procedure kw poorly. 04:10 Yasmine Monzon MD is Hospitalizing Provider. pkl 05:56 No provider procedures requiring assistance completed. Patient admitted, IV remains in mg2 place. Administered Medications: 03:07 Drug: Albuterol - atroVENT (3:1) (2.5 mg - 0.5 mg) 3 ml Route: Nebulizer; tl2 05:12 Follow up: Response: No adverse reaction; no apprent distress mg2 Point of Care Testing: Blood Glucose: 03:03 Blood Glucose: 98 mg/dL; tl2 Ranges: Intake: Outcome: 04:11 Decision to Hospitalize by Provider. pkl 05:55 Admitted to Tele accompanied by tech, via stretcher, room 422, with oxygen, Report mg2 called to LIZABETH Chaves 05:55 Condition: stable 05:55 Instructed on the need for admit, Demonstrated understanding of instructions. 05:57 Patient left the ED. mg2 Signatures: Dispatcher [employer] EDClaudia Khoury, RN RN aa1 Kenan Britton MD MD pkl Teressa Caraballo kw Mel Du RN RN tl2 Jose Enrique Grissom RN RN mg2
--- NOTE | 2018-02-27 04:12 | EDPHYS ---
Physician Documentation [facility] Name: Federico Martinez Age: 57 yrs Sex: Male : 1960 Arrival Date: 02/27/2018 Time: 02:51 Bed 5 Private MD: ED Physician Kenan Britton HPI: 02/27 03:41 This 57 yrs old Male presents to ER via EMS with complaints of Low Oxygen pkl Level. 03:41 The patient has shortness of breath at rest. Onset: The symptoms/episode began/occurred pkl just prior to arrival. The patient has experienced similar episodes in the past, several times. Historical: - Allergies: 03:03 No Known Allergies; tl2 - Home Meds: 03:03 acetaminophen 325 mg Oral tab 2 tabs every 6 hours [Active]; acetaminophen 650 mg tl2 Rectal supp 1 suppository every 6 hours for for mild pain or fever >100.1 [Active]; alprazolam 1 mg Oral tab Tue, Elissa and Sat for anxiety [Active]; alprazolam 0.5 mg Oral tab 1 tab nightly for Anxiety [Active]; aspirin 81 mg Oral chew 1 tab once daily [Active]; atorvastatin 10 mg Oral tab 1 tab once daily [Active]; calcitrol 0.5 mcg daily [Active]; carvedilol 25 mg Oral tab 2 times per day [Active]; Chloraseptic Throat [place] 1.4 % mucous membrane spra 2 spray every 4 hours [Active]; clonidine HCl 0.3 mg Oral tab 1 tab three times a day [Active]; donepezil 10 mg Oral tab nightly [Active]; doxazosin 4 mg Oral tab 1 tab every 12 hours for Hypertension [Active]; fentanyl 25 mcg/hr Topical pt72 1 patch every 72 hours [Active]; Fleet Enema 19-7 gram/118 mL Rectal enem every 24 hours prn constipation [Active]; folic acid 1 mg Oral tab 1 tab once daily [Active]; furosemide 40 mg Oral tab 1 tab once daily [Active]; gabapentin 100 mg Oral cap twice a day [Active]; Ria-Tussin 573-465-06gu/5mL Oral liqd 30 mL every 4 hours for Cough [Active]; losartan 50 mg Oral tab 1 tab 2 times per day [Active]; Milk of Magnesia Oral 30 mL once daily for constipation [Active]; Nepro Carb Steady Oral [Active]; nifedipine 90 mg Oral TbER [Active]; nitroglycerin 0.4 mg SL subl 1 tab every 5 minutes [Active]; Grandin 7.5-325 mg Oral tab 1 tab every 6 hours for Pain [Active]; Grandin 5-325 mg Oral tab 1 tab 2 times daily for Pain [Active]; Novolin 70/30 suspension 100 unit/ mL. Inject 7 units SQ BID [Active]; ondansetron HCl 4 mg Oral tab 1 tabs every 6 hours [Active]; pramipexole 0.25 mg Oral tab 1 tab nightly for Idiopathic Parkinsonism [Active]; Protonix 40 mg Oral TbEC 1 tab before meals [Active]; ranolazine 500 mg Oral 1 tab 2 times per day [Active]; Saline nasal [Active]; Tylenol-Codeine #4 300-60 mg Oral tab 1 tab every 6 hours for Pain [Active]; venlafaxine 150 mg Oral cp24 twice a day [Active]; Vitamin D Oral 5000 unit daily [Active]; Xanax 0.5 mg Oral tab 1 tab every 8 hours PRN for Anxiety [Active]; ziprasidone HCl 40 mg Oral cap 2 times per day [Active]; - PMHx: 03:03 ADD/ADHD; Anemia; Anxiety; Asthma; Atherosclerotic heart disease; Bipolar disorder; tl2 Dementia; Diabetes - IDDM; Dialysis; ESRD; GERD; GI Hemorrhage; HEART FAILURE; Hypertension; insomnia; Major Depressive Disorder; osteomyelitis; Paraplegia; Parkinsons; Post Laminectomy Syndrome; pressure ulcer of left ankle stage II; Pressure ulcer of right ankle, stage II; Sacral Pressure Ulcer Stage III; - Immunization history:: Adult Immunizations up to date. - Social history:: Smoking status: Patient/guardian denies using tobacco. ROS: 03:41 Eyes: Negative for injury, pain, redness, and discharge, ENT: Negative for injury, pkl pain, and discharge, Neck: Negative for injury, pain, and swelling, Cardiovascular: Negative for chest pain, palpitations, and edema. 03:41 Respiratory: Positive for shortness of breath. 03:41 Abdomen/GI: Negative for abdominal pain, nausea, vomiting, and diarrhea. 03:41 Back: Negative for acute changes. 03:41 : Negative for urinary symptoms. 03:41 MS/extremity: Negative for acute changes. 03:41 Skin: Negative for rash. 03:41 Neuro: Negative for altered mental status. Exam: 03:41 Head/Face: Normocephalic, atraumatic. Eyes: Pupils equal round and reactive to light, pkl extra-ocular motions intact. Lids and lashes normal. Conjunctiva and sclera are non-icteric and not injected. Cornea within normal limits. Periorbital areas with no swelling, redness, or edema. ENT: Nares patent. No nasal discharge, no septal abnormalities noted. Tympanic membranes are normal and external auditory canals are clear. Oropharynx with no redness, swelling, or masses, exudates, or evidence of obstruction, uvula midline. Mucous membranes moist. Neck: Trachea midline, no thyromegaly or masses palpated, and no cervical lymphadenopathy. Supple, full range of motion without nuchal rigidity, or vertebral point tenderness. No Meningismus. Chest/axilla: Normal chest wall appearance and motion. Nontender with no deformity. No lesions are appreciated. Cardiovascular: Regular rate and rhythm with a normal S1 and S2. No gallops, murmurs, or rubs. Normal PMI, no JVD. No pulse deficits. 03:41 Respiratory: mild respiratory distress is noted, Respirations: labored breathing, Breath sounds: rales, that are mild, are scattered. 03:41 Abdomen/GI: Bowel sounds: normal, Palpation: abdomen is soft and non-tender, in all quadrants. 03:41 Back: Exam negative for acute changes. 03:41 : Exam negative for acute changes. 03:41 Musculoskeletal/extremity: Exam is negative for acute changes. 03:41 Skin: Exam negative for rash. 03:41 Neuro: Orientation: appropriate for stated age, Mentation: is normal, Cranial nerves: grossly normal, Motor: is normal. Vital Signs: 03:03 BP 149 / 65; Pulse 84; Resp 20; Temp 98.2; Pulse Ox 94% on 3 lpm NC; Weight 87 kg; tl2 Height 5 ft. 7 in. (170.18 cm); Pain 8/10; 03:53 BP 143 / 79; Pulse 71; Resp 20; Pulse Ox 100% on Nebulizer Mask; mg2 04:59 BP 123 / 78; Pulse 78; Resp 20; Pulse Ox 100% on 3 lpm NC; Pain 0/10; mg2 03:03 Body Mass Index 30.04 (87.00 kg, 170.18 cm) tl2 MDM: 02:52 Patient medically screened. pkl 04:09 Data reviewed: vital signs, nurses notes, lab test result(s), EKG, radiologic studies, pkl plain films. 02/27 02:59 Order name: Basic Metabolic Panel; Complete Time: 04:12 pkl 02/27 02:59 Order name: BNP; Complete Time: 05:58 pkl 02/27 02:59 Order name: CBC with Diff; Complete Time: 04:12 pkl 02/27 02:59 Order name: Ckmb; Complete Time: 04:12 pkl 02/27 02:59 Order name: CPK; Complete Time: 04:12 pkl 02/27 02:59 Order name: LFT's; Complete Time: 04:12 pkl 02/27 02:59 Order name: Magnesium; Complete Time: 04:12 pkl 02/27 02:59 Order name: PT-INR; Complete Time: 03:56 pkl 02/27 02:59 Order name: Ptt, Activated; Complete Time: 03:56 pkl 02/27 02:59 Order name: Troponin (emerg Dept Use Only); Complete Time: 04:12 pkl 02/27 02:59 Order name: XRAY Chest (1 view) pkl 02/27 02:59 Order name: ABG; Complete Time: 03:56 pkl 02/27 03:34 Order name: Manual Differential; Complete Time: 04:12 EDMS 02/27 02:59 Order name: EKG; Complete Time: 03:00 pkl 02/27 02:59 Order name: Cardiac monitoring; Complete Time: 03:01 pkl 02/27 02:59 Order name: EKG - Nurse/Tech; Complete Time: 03:15 pkl 02/27 02:59 Order name: IV Saline Lock; Complete Time: 03:15 pkl 02/27 02:59 Order name: Labs collected and sent; Complete Time: 03:15 pkl 02/27 02:59 Order name: O2 Per Protocol; Complete Time: 03:01 pkl 02/27 02:59 Order name: O2 Sat Monitoring; Complete Time: 03:02 pkl Administered Medications: 03:07 Drug: Albuterol - atroVENT (3:1) (2.5 mg - 0.5 mg) 3 ml Route: Nebulizer; tl2 05:12 Follow up: Response: No adverse reaction; no apprent distress mg2 Point of Care Testing: Blood Glucose: 03:03 Blood Glucose: 98 mg/dL; tl2 Ranges: Critical Glucose Levels:Adult <50 mg/dl or >400 mg/dl <40 mg/dl or >180 mg/dl Disposition: 02/27/18 04:11 Hospitalization ordered by Yasmine Monzon for Inpatient Admission. Preliminary diagnosis is Acute dyspnea. Volume overload. Possible pneumonia. Chronic renal disease. - Bed requested for Telemetry/MedSurg (Inpatient). - Status is Inpatient Admission. mg2 - Condition is Stable. - Problem is new. - Symptoms are unchanged. UTI on Admission? No Signatures: Dispatcher [employer] EDMS Aleena Franz rg2 Kenan Britton MD MD pkl Mel Du RN RN tl2 Jose Enrique Grissom RN RN mg2 Corrections: (The following items were deleted from the chart) 03:01 02:59 Urine Dipstick-Ancillary ordered. pkl aa1 05:31 04:11 Hospitalization Ordered by Yasmine Monzon MD for Inpatient Admission. Preliminary rg2 diagnosis is Acute dyspnea. Volume overload. Possible pneumonia. Chronic renal disease. Bed requested for Telemetry/MedSurg (Inpatient). Status is Inpatient Admission. Condition is Stable. Problem is new. Symptoms are unchanged. UTI on Admission? No. pkl 05:57 05:31 02/27/2018 04:11 Hospitalization Ordered by Yasmine Monzon MD for Inpatient mg2 Admission. Preliminary diagnosis is Acute dyspnea. Volume overload. Possible pneumonia. Chronic renal disease. Bed requested for Telemetry/MedSurg (Inpatient). Status is Inpatient Admission. Condition is Stable. Problem is new. Symptoms are unchanged. UTI on Admission? No. rg2
[2018-02-27] MEDS ORDERED: ACETAMINOPHEN 500 MG TAB PO PRN (05:16)
[2018-02-27] MEDS ORDERED: ONDANSETRON 4 MG/2 ML VIAL IV PRN (05:16)
[2018-02-27] MEDS ORDERED: VANCOMYCIN 1 GM in NA CHLORIDE 0.9% 250 ML IVPB ONE (05:19)
[2018-02-27] MEDS ORDERED: ONDANSETRON 4 MG (ODT) TAB PO PRN (05:38)
[2018-02-27] MEDS ORDERED: Levofloxacin500mg IV 500 MG/100 ML BAG IV SCH (06:00)
[2018-02-27] MEDS ORDERED: VANCOMYCIN/NS 1 gm 1 GM/250 ML BAG IV ONE (07:30)
--- NOTE | 2018-02-27 07:44 | EKG ---
Test Date: 2018-02-27 Test Time: 03:12:29 Coconut Jelly Roller: CAIT MEASUREMENT RESULTS: Intervals: Rate: 77 AL: 156 QRSD: 138 QT: 452 QTc: 511 [place]: P: 27 AL: 156 QRS: 76 T: 5 INTERPRETIVE STATEMENTS: Normal sinus rhythm Nonspecific intraventricular block Inferior infarct, age undetermined Abnormal ECG Compared to ECG 02/13/2018 22:02:09 Myocardial infarct finding now present Sinus bradycardia no longer present Electronically Signed On 02-27-18 07:43:17 CDT by Júnior Napoles
[2018-02-27] MEDS: ALBUTEROL 2.5 MG/3 ML NEB SOL NEB SCH ×2 (08:08→13:43)
[2018-02-27] MEDS: IPRATROPIUM BROM 0.5MG/2.5ML NEB SCH ×2 (08:08→13:43)
--- NOTE | 2018-02-27 08:30 | RAD REPORT ---
EXAM DESCRIPTION: Richelle Single View02/27/2018 3:33 am CLINICAL HISTORY: Shortness of breath COMPARISON: January 2018 FINDINGS: The right pleural effusion appears loculated. It may be small to moderate in size. Bilateral pulmonary opacities and left pleural effusion persist. The heart remains enlarged. Central venous catheter remains in place . The pulmonary opacities likely represent pulmonary edema
[2018-02-27] MEDS ORDERED: CALCITROL 0.25 MCG CAP PO SCH (09:00)
[2018-02-27] MEDS ORDERED: ZIPRASIDONE 20 MG CAP PO SCH (09:00)
[2018-02-27] MEDS ORDERED: ZIPRASIDONE 40 MG CAP PO SCH (09:00)
[2018-02-27] MEDS ORDERED: METHYLPREDNISOLONE 40 MG INJ IV SCH (09:00)
[2018-02-27] MEDS ORDERED: VENLAFAXINE HCL XR 75 MG CAP PO SCH (09:00)
[2018-02-27] MEDS ORDERED: ENOXAPARIN 30 MG/0.3 ML SQ SCH (09:00)
[2018-02-27] MEDS ORDERED: DOXAZOSIN 4 MG TAB PO SCH (09:00)
[2018-02-27] MEDS ORDERED: CARVEDILOL 25 MG TAB PO SCH (09:00)
[2018-02-27] MEDS ORDERED: LOSARTAN POTASSIUM 50 MG TABLET PO SCH (09:00)
[2018-02-27] MEDS ORDERED: NIFEDIPINE XL 90 MG TABLET PO SCH (09:00)
[2018-02-27] MEDS ORDERED: DOXAZOSIN 2 MG TAB ONE (09:28)
[2018-02-27] MEDS: CLONIDINE HCL 0.3 MG TAB PO SCH ×2 (09:36→13:07)
[2018-02-27 10:50] VITALS: BMI 29.9
[2018-02-27 11:50] VITALS: TEMP 97
--- NOTE | 2018-02-27 12:13 | RAD REPORT ---
EXAM DESCRIPTION: CT - Thorax Wo Con - 02/27/2018 11:18 am CLINICAL HISTORY: Cough and congestion, loculated pleural effusion COMPARISON: Chest exam February 27, CT chest February 14 TECHNIQUE: Axial 5 mm thick images of the chest were obtained without IV contrast. All CT scans are performed using dose optimization technique as appropriate and may include automated exposure control or mA/KV adjustment according to patient size. FINDINGS: No suspicious mass of the lung parenchyma. No acute infiltrative process is suspected. The re is moderate atelectasis of each lower lobe and in the posterior aspect of the right upper lobe the opacification is favored to be atelectasis rather than pneumonia. No pleural based mass is present. There is no pneumothorax. There are moderate bilateral pleural effusions present. Volume is not signi ficantly different from the February 14 study. No thickened rim or rind to suspect loculation. No abnormal mediastinal or hilar masses or lymphadenopathy seen. Few small nonspecific mediastinal ly mph nodes are present similar to the comparison. Aorta and pulmonary artery assessment is limited in the absence of contrast. No pericardial thickening or effusion. Dense Coronary artery calcifications are present. No chest wall mass or abnormal axillary lymphadenopathy. IMPRESSION: Moderate bilateral pleural effusions not substantially different in size from February 14. No thickened rim or rind to indicate loculation. Bilateral lower lobe partial atelectasis. Posterior right upper lobe opacification favored to be atelectasis rather than pneumonia.
--- NOTE | 2018-02-27 12:16 | P.HP ---
Certification for Inpatient Patient admitted to: Observation With expected LOS: <2 Midnights Patient will require the following post-hospital care: None Practitioner: I am a practitioner with admitting privileges, knowledge of patient current condition, hospital course, and medical plan of care. Services: Services provided to patient in accordance with Admission requirements found in Title 42 Section 412.3 of the Code of Federal Regulations Patient History Date of Service: 02/27/18 Reason for admission: Dyspnea History of Present Illness: Patient is a 57yo who was admitted to the hospital with shortness of breath. Patient has a history of diabetes and is end-stage renal disease. Patient recently was admitted for hemodialysis access catheter placement. Patient has been going to dialysis as scheduled. However, according to the ER he is getting off the machine quicker than he had been. He had dialysis today but he still became short of breath. In the emergency room chest x-ray revealed pulmonary edema. Patient was hypoxic. Patient was given IV diuretics. We will go ahead and consult Nephrology for hemodialysis placement. Patient will be admitted to the hospital for observation. Once patient is dialyzed his respiratory status should improve and he should be stable for discharge home. Allergies No Known Drug Allergies Allergy (Verified 02/09/18 01:19) Unknown No Known Allergies Allergy (Uncoded 02/09/18 01:19) Unknown Home Medications: Albuterol Inhaler [Ventolin Inhaler*] 2 puff IH QID 02/09/18 Alprazolam [Xanax] 0.5 mg PO BEDTIME 02/09/18 Alprazolam [Xanax] 1 mg PO T,TH,S 02/09/18 Clonidine HCl [Catapres*] 0.3 mg PO TID 02/09/18 Fentanyl 25 mcg TD Q72H 02/09/18 Furosemide 40 mg PO BID 02/09/18 Gabapentin [Neurontin*] 100 mg PO BID 02/09/18 Hydrocodone Bit/Acetaminophen [Hydrocodon-Acetaminoph 7.5-325] 1 each PO Q6HP PRN 02/09/18 Insulin NPH Human [Novolin N (Humulin N)*] 7 units SQ BID 02/09/18 Ipratropium/Albuterol Sulfate [Iprat-Albut 0.5-3(2.5) mg/3 ml] 3 ml IH Q6HP PRN 02/09/18 Nifedipine [Nifedipine ER] 90 mg PO Q12H 02/09/18 Nitroglycerin 0.4 mg SL Q5MX3 PRN 02/09/18 Vit D3/Folic Acid/B2/B6/B12 [Folgard Tablet] 1 each PO DAILY 02/09/18 Atorvastatin Calcium [Lipitor*] 1 tab PO BEDTIME 02/10/18 Calcitriol [Rocaltrol] 1 cap PO DAILY 02/10/18 Carvedilol [Coreg*] 25 mg PO BID 02/10/18 Donepezil HCl [Aricept] 10 mg PO BEDTIME 02/10/18 Doxazosin Mesylate 4 mg PO Q12HR 02/10/18 Folic Acid 1 mg PO DAILY 02/10/18 Losartan Potassium [Cozaar*] 50 mg PO BID 02/10/18 Ondansetron HCl 4 mg PO Q6HR PRN 02/10/18 Pramipexole Di-HCl [Pramipexole Dihydrochloride] 1 tab PO BEDTIME 02/10/18 Ranolazine [Ranexa] 500 mg PO BID 02/10/18 Venlafaxine HCl [Venlafaxine HCl ER] 150 mg PO BID 02/10/18 Ziprasidone HCl [Geodon*] 40 mg PO BID 02/10/18 - Past Medical/Surgical History Has patient received pneumonia vaccine in the past: Yes Diabetic: Yes -: DM-Type 2 -: HTN -: Hyperlipidemia -: Dementia, Parkinsons disease -: GERD -: ESRD, Nephrology-Dr. Leavitt, Dialysis-,Sun -: Restless leg syndrome -: COPD -: Depression, insomnia -: Anemia of chronic disease -: Normal-pressure hydrocephalus -: CAD, PUD -: Cardiac stents. -: Numerous back surgeries -: Congestive heart failure Psychosocial/ Personal History: He has a girlfriend. He has one daughter. [facility] - Family History Mother Medical History: Heart disease, Hypertension Father Medical History: Heart disease - Social History Smoking Status: Former smoker Alcohol use: No CD- Drugs: No Caffeine use: Yes Place of Residence: [facility] Review of Systems 10-point ROS is otherwise unremarkable Physical Examination - Vital Signs Temperature: 97.0 F Blood Pressure: 172/78 Pulse: 67 Respirations: 18 Pulse Ox (%): 96 - Physical Exam General: Alert, In no apparent distress, Oriented x2, Disheveled HEENT: Atraumatic, PERRLA, Mucous membr. moist/pink, EOMI, Sclerae nonicteric Neck: Supple, 2+ carotid pulse no bruit, No LAD, Without JVD or thyroid abnormality Respiratory: Crackles/rales Cardiovascular: Regular rate/rhythm, Normal S1 S2, Systolic murmur Gastrointestinal: Normal bowel sounds, Soft and benign, Non-distended, No tenderness Musculoskeletal: No clubbing, No tenderness, Swelling Integumentary: No rashes Neurological: Normal speech, Normal tone, Sensation intact, Cranial nerves 3-12 intact, Normal affect, Abnormal gait, Abnormal strength Lymphatics: No axilla or inguinal lymphadenopathy - Studies Laboratory Data (last 24 hrs) 02/27/18 03:11: PT 12.2, INR 1.03, APTT 33.3 02/27/18 03:11: WBC 13.1 H D, Hgb 8.0 L, Hct 24.6 L, Plt Count 174 02/27/18 03:11: B-Natriuretic Peptide 1491 H 02/27/18 03:11: Sodium 137, Potassium 4.5, BUN 35 H, Creatinine 3.46 H D, Glucose 97, Magnesium 2.2, Total Bilirubin 0.7, AST 20, ALT 13, Alkaline Phosphatase 83 Assessment & Plan - Problems (Diagnosis) (1) Acute respiratory distress Onset Date: 09/17/17 Current Visit: No Status: Acute (2) SOB (shortness of breath) Onset Date: 06/05/17 Current Visit: No Status: Acute (3) Volume overload Onset Date: 09/05/17 Current Visit: No Status: Acute Qualifiers: Hypervolemia type: other Qualified Code(s): E87.79 - Other fluid overload (4) COPD (chronic obstructive pulmonary disease) Onset Date: 12/24/17 Current Visit: No Status: Chronic Qualifiers: COPD type: unspecified COPD Qualified Code(s): J44.9 - Chronic obstructive pulmonary disease, unspecified (5) Diabetes mellitus Onset Date: 05/04/17 Current Visit: No Status: Chronic Qualifiers: Diabetes mellitus type: type 2 Diabetes mellitus longterm insulin use: with exterminator helper use Diabetes mellitus complication status: with kidney complications Diabetes mellitus complication detail: with chronic kidney disease Chronic kidney disease stage: stage 5, not on chronic dialysis Qualified Code(s): E11.22 - Type 2 diabetes mellitus with diabetic chronic kidney disease; N18.5 - Chronic kidney disease, stage 5; N18.5 - Chronic kidney disease, stage 5; N18.5 - Chronic kidney disease, stage 5; N18.5 - Chronic kidney disease, stage 5; Z79.4 - jail (current) use of insulin; Z79.4 - jail (current) use of insulin; Z79.4 - jail (current) use of insulin; Z79.4 - ocean transportation intermediary (current) use of insulin (6) ESRD (end stage renal disease) Onset Date: 12/24/17 Current Visit: No Status: Chronic (7) Hypertension Onset Date: 12/24/17 Current Visit: No Status: Chronic Qualifiers: Hypertension type: essential hypertension Qualified Code(s): I10 - Essential (primary) hypertension - Plan Plan: 1. Nephrology consultation and hemodialysis 2. IV diuretics 3. repeat chest x-ray 4. IV antibiotics x1 dose to cover any pneumonic process that may be cause of hypoxemia 5. Continue with strict blood pressure and blood sugar controlled 6. Nebs as needed 7. GI DVT prophylaxis Discharge Plan: Home Plan to discharge in: 24 Hours - Advance Directives Does patient have a Living Will: Yes Does patient have a Durable POA for Healthcare: Yes - Code Status/Comfort Care Code Status Assessed: No Code Status: Full Code Critical Care: No Time Spent Managing PTS Care (In Minutes): 50
[2018-02-27 15:29] VITALS: BP 149/78
[2018-02-27 16:17] VITALS: O2SAT 93
[2018-02-27] MEDS ORDERED: ALPRAZOLAM 0.5 MG TABLET PO SCH (21:00)
[2018-02-27] MEDS ORDERED: DONEPEZIL HCL 5 MG TAB PO SCH (21:00)
[2018-02-27] MEDS ORDERED: ATORVASTATIN 10 MG TAB PO SCH (21:00)
[2018-02-28] MEDS ORDERED: ALPRAZOLAM 1 MG TABLET PO SCH (12:00)
== END 2018-02-27 16:09 ==
LOC: ER 02:50 → INTOOBSV 04:18 → ERHOLD 04:18 → 4TH 05:33
PROVIDERS: ADMIT Hospitalist; ATTEND Hospitalist
DX: R06.03 Acute respiratory distress (principal); J44.9 Chronic obstructive pulmonary disease, unspecified; I13.2 Hypertensive heart and chronic kidney disease with heart failure and with stage 5 chronic kidney disease, or end stage renal disease; E11.22 Type 2 diabetes mellitus with diabetic chronic kidney disease; N18.6 End stage renal disease; I50.9 Heart failure, unspecified; Z99.2 Dependence on renal dialysis; Z79.4 Long term (current) use of insulin
CPT/HCPCS: 36415; 71045; 71250; 80048; 80076; 82550; 82553; 82805; 82962; 83735; 83880; 84484; 85025; 85610; 85730; 93005; 94640; 94760; 99285; G0378; J1650; J2920; J3370

== ENCOUNTER 2018-03-20 12:40 | Inpatient (IN) | payer MEDICAID ==
--- OUTSIDE RECORDS SUMMARY | 2018-03-20 12:43 | XMS REPORT | Clinical Summary ---
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 Paraplegic spinal paralysis ([facility]) 12/26/2016 Sacral decubitus ulcer 12/26/2016 ESRD on hemodialysis ([facility]) 12/26/2016 Acute bilateral low back pain without sciatica 11/30/2016 Back pain 11/29/2016 Complications, dialysis, catheter, mechanical ([facility]) 04/06/2016 Angina effort ([facility]) 09/04/2014 CAD (coronary artery disease) 09/04/2014 Social History Tobacco Use Types Packs/Day Years Used Date Former Smoker 0 Alcohol Use Drinks/Week oz/Week Comments No Sex Assigned at Date Recorded Not on file Last Filed Vital Signs Not on file Plan of Treatment Not on file Implants Implanted Type Area Die Cutter Operator Device Expiration Model / Identifier Date Serial / Lot Infusion Set Bone Infuseii Lg [id number] - [id number] Bone N/A: MEDTRONIC: SPINAL 08/22/2018 [id number] / Implanted: Qty: 1 on 12/12/2016 by Eduardo Ruggiero MD Spine BIOLOGICS / Lumbar [id number] Matrix Floseal Hemo W/O Ndl 10 [id number] - [id number] Cement/Fi N/A: MA: BIOSCI 04/20/2019 [id number] / Implanted: Qty: 2 on 12/12/2016 by Eduardo Ruggiero MD ller/T[place]ance Spine / sive Lumbar [id number] Bone Putty Stimulan [facility] 620-010 - [id number] Cement/Fi N/A: BIOCOMPOSITES 08/21/2019 620-010 / Implanted: Qty: 1 on 12/12/2016 by Eduardo Ruggiero MD ller/T[place]ance Spine / sive Lumbar 08/06-R300/301 Connector Set Screw Joints N/A: MEDTRONIC [id number] / Implanted: Qty: 1 on 12/12/2016 by Eduardo Ruggiero MD Spine / Lumbar Scr Mas 8.5x90 [id number] - [id number] Spine N/A: MEDTRONIC:SPINE: [id number] / Implanted: Qty: 1 on 12/12/2016 by Eduardo Ruggiero MD Spine SOFAMOR DANEK / Lumbar [id number] Ballast Mas 8.5x80 Spine N/A: MEDTRONIC [id number] / Implanted: Qty: 1 on 12/12/2016 by Eduardo Ruggiero MD Spine / Lumbar [id number] Taco 48t513 Spine N/A: MEDTRONIC [id number] / Implanted: Qty: 2 on 12/12/2016 by Eduardo Ruggiero MD Spine / Lumbar [id number] Connector 20mm Spine N/A: MEDTRONIC [id number] / Implanted: Qty: 1 on 12/12/2016 by Eduardo Ruggiero MD Spine / Lumbar Medtronic Sofamor Danek 10cc Sprinal Graft Spine N/A: MEDTRONIC 2017 [id number] / Implanted: Qty: 1 on 12/12/2016 by Eduardo Ruggiero MD Spine [id number] / Lumbar Medtronic Sofamor Daek Orthoblend Small 10cc Spine N/A: MEDTRONIC 2017 [id number] / Implanted: Qty: 1 on 12/12/2016 by Eduardo Ruggiero MD Spine [id number] / Lumbar Medtronic Sofarmor Danek Orthoblend Small 10cc Spine N/A: MEDTRONIC [id number] / Implanted: Qty: 1 on 12/12/2016 by Eduardo Ruggiero MD Spine [id number] / Lumbar Screw Set Ti Ns Brk Off 5.5 - [id number] Spine N/A: MEDTRONIC:SPINAL [id number] / Implanted: Qty: 6 on 12/12/2016 by Eduardo Ruggiero MD Spine BIOLOGICS / Lumbar [id number] Screw Mas Cc 7.5x50 [id number] - [id number] Spine N/A: MEDTRONIC:SPINAL [id number] / Implanted: Qty: 2 on 12/12/2016 by Eduardo Ruggiero MD Spine BIOLOGICS / Lumbar [id number] Screw [facility] Cc 7.5 X 45 [id number] - [id number] Spine N/A: MEDTRONIC:SPINAL [id number] / Implanted: Qty: 2 on 12/12/2016 by Eduardo Ruggiero MD Spine BIOLOGICS / Lumbar [id number] Results Not on fileafter 03/19/2017
--- OUTSIDE RECORDS SUMMARY | 2018-03-20 12:47 | XMS REPORT ---
:1960 [facility] Address [address] [place] [address] Care Team Providers Name Role Phone KENJUAN [...] Reference Range Comments METHYLMALONIC ACID, SERUM (test qoud=[id number]) 603 nmol/L 0-378 PERFORMED AT: [facility] [id number] CONCILIATOR: Donnie Youssef MD PHONE: [phone], [id number] 06:50:00To start 15mins after 1st cultureSpecimen: BloodCollected: 2016 01:33 Status: Final Last Updated: 06/21/2017 06:49 (1) To start 15mins after 1st culture Culture Result (Final) (Final) No Growth After 5 DaysCULTURE, [id number] 06:50:00Specimen: BloodCollected: 06/16/2017 01: 20 Status: Final Last Updated: 06/21/2017 06:49 Culture Result (Final) ( Final) No Growth After 5 [id number] 09:05:00 Test Item Value Reference Range Comments [...] mL/min/1.73m\\S\\2 EGFR if Non- 17 Estimated Glomerular Chinese (test mL/min/1.73m\\S\\2 Filtration Rate (eGFR) code=EGFRNA) Reference [...] of chronic kidney failure. CBC WITH AUTO [id number] 08:50:00 Test Item Value Reference Range Comments [...] code=IG%) 0.7 % 0.0-0.4 CBC WITH AUTO [id number] 01:49:00 Test Item Value Reference Range Comments [...] code=IG%) 0.9 % 0.0-0.4 CBC WITH AUTO [id number] 20:08:00 Test Item Value Reference Range Comments [...] code=IG%) 0.7 % 0.0-0.4 CBC WITH AUTO [id number] 13:58:00 Test Item Value Reference Range Comments [...] 1.0-3.0 IG% (test code=IG%) 0.7 % 0.0-0.4 [id number] 09:14:00 Test Item Value Reference Range Comments [...] mL/min/1.73m\\S\\2 EGFR if Non- 16 Estimated Glomerular Chinese (test mL/min/1.73m\\S\\2 Filtration Rate (eGFR) code=EGFRNA) Reference [...] of chronic kidney failure. CBC WITH AUTO [id number] 09:05:00 Test Item Value Reference Range Comments [...] code=IG%) 0.7 % 0.0-0.4 CBC WITH AUTO [id number] 02:17:00 Test Item Value Reference Range Comments [...] code=IG%) 0.7 % 0.0-0.4 CBC WITH AUTO [id number] 20:02:00 Test Item Value Reference Range Comments [...] code=IG%) 0.8 % 0.0-0.4 CBC WITH AUTO [id number] 14:17:00 Test Item Value Reference Range Comments [...] 1.0-3.0 IG% (test code=IG%) 0.9 % 0.0-0.4 [id number] 08:47:00 Test Item Value Reference Range Comments Magnesium (test code=MG) 1.9 mg/dl 1.6-2.3 [id number] 08:47:00 Test Item Value Reference Range Comments [...] mL/min/1.73m\\S\\2 EGFR if Non- 17 Estimated Glomerular Chinese (test mL/min/1.73m\\S\\2 Filtration Rate (eGFR) code=EGFRNA) Reference [...] of chronic kidney failure. CBC WITH AUTO [id number] 08:22:00 Test Item Value Reference Range Comments [...] code=IG%) 0.8 % 0.0-0.4 CBC WITH AUTO [id number] 03:42:00 Test Item Value Reference Range Comments [...] on ############### was changed to 1 by [id number] on 06/17/2017 03:42 Neutrophils (test 68 % 42-75 The value no value code=NEUTR) originally released by on ############### was changed to 68 by [id number] on 06/17/2017 03:42 Lymphocytes (test 16 % 13-42 The value no value code=LYMPH) originally released by on ############### was changed to 16 by [id number] on 06/17/2017 03:42 Monocytes (test 11 % 4-14 The value no value code=MONOS) originally released by on ############### was changed to 11 by [id number] on 06/17/2017 03:42 Eosinophils (test 3 % 1-3 The value no value code=EOS) originally released by on ############### was changed to 3 by [id number] on 06/17/2017 03:42 Basophils (test 1 % 0-1 The value no value code=BASO) originally released by on ############### was changed to 1 by [id number] on 06/17/2017 03:42 RBC Morphology (test Anisocytosis The value no value code=RBCMOR) Hypochromic originally released by on ############### was changed to Anisocytosis Hypochromic by [id number] on 06/17/2017 03:42 Platelet Morphology Giant platelets The value no value (test code=PLTMORPH) originally released by on ############### was changed to Giant platelets by [id number] on 06/17/2017 03:42 CBC WITH AUTO [id number] 19:54:00 Test Item Value Reference Range Comments [...] code=IG%) 0.8 % 0.0-0.4 CBC WITH AUTO [id number] 14:30:00 Test Item Value Reference Range Comments [...] code=IG%) 1.0 % 0.0-0.4 CBC WITH AUTO [id number] 07:35:00 Test Item Value Reference Range Comments [...] code=IG%) 1.2 % 0.0-0.4 HEP B SURFACE [id number] 07:14:00 Test Item Value Reference Range Comments [...] code=HBSAG) Negative (qualifier Negative value) TYPE & [id number] 04:15:00 Test Item Value Reference Range Comments ABO Blood Type (test code=ABO) O Rh (test code=RH) Positive Antibody Screen (test code=ABSCR) Negative Negative ARMBAND# (test code=ARMBAND) [id number] PRO-BNP(B-Type Natriuretic Peptide)2017-06-16 03:42:00 Test Item Value Reference Range Comments Pro-BNP(B-Peptide) 48052 pg/ml 0-125 THE METHODOLOGY FOR DETECTION OF [...] TIBC (test code=TIBC) 161 ug/dl 178-500 B12, [id number] 03:32:00 Test Item Value Reference Range Comments B12 (test code=B12) 717 pg/ml 239-941 [id number] 03:32:00 Test Item Value Reference Range Comments Folic Acid (test code=FOLIC) 5.35 ng/ml 2.76-20.00 IRON [id number] 03:32:00 Test Item Value Reference Range Comments Iron (test code=FETOT) 33 ug/dl 20-149 TIBC (test code=TIBC) 161 ug/dl 178-500 Iron Saturation (test code=FESAT) 20 % 16-62 [id number] 03:05:00 Test Item Value Reference Range Comments [...] (test code=BGCTHB) 9.6 gm/dl 11.5-17.4 O2Hb (test code=OTFC6BS) 94.7 % 95.0-99.0 COHb (test code=BGFCOHB) <2.8 [...] Notified (test code=BGTMNOTIFIED) 03:03 O2 Device (test code=SNX4MFQ8) ROOM AIR Instrument ID (test code=BGINSTRID) [id number] Reported By (test code=BGREPORTEDBY) LUCY GAMBLE GLYCOSALATED [id number] 02:39:00 Test Item Value Reference Range Comments Hemoglobin A1C (test 5.78 % 4.3-6.0 code=GLYCO) Mean Plasma Glucose (test 128 mg/dl 90-180 WHEN TEST RESULTS FOR A1C code=MPG) EXCEED 14.0, THE LINEAR LIMIT OF THE INSTRUMENT, THE CALCULATED RESULT FOR THE MEAN GLUCOSE IS NOT RELIABLE. CORONARY [id number] 02:22:00 Test Item Value Reference Range Comments [...] vLDL (test code=VLDL) 16 mg/dl 30-60 VANCOMYCIN, [id number] 02:19:00 Test Item Value Reference Range Comments Vancomycin, Trough (test 7.7 ug/ml 15.0-20.0 05/13/2009 Change in Therapeutic code=VANCT) Range, for Trough Level, has been implemented per P&T committee. INTERPRETATION GUIDE: CONSIDER SENSITIVITY REPORT IF NGUYEN IS=1 THERAPEUTIC RANGE IS 15-20 ug/ml IF NGUYEN IS > OR=2 CONSIDER ALTERNATE THERAPY [id number] 02:05:00 Test Item Value Reference Range Comments [...] mL/min/1.73m\\S\\2 EGFR if Non- 23 Estimated Glomerular Chinese (test mL/min/1.73m\\S\\2 Filtration Rate (eGFR) code=EGFRNA) Reference Intervals Decision Points for 18 years and older and average body mass: >=60 Does not exclude kidney disease. 30 - 59 Suggests moderate chronic kidney disease and indicates the need for further investigation including assessment of proteinuria and cardiovascular factors. < 30 Usually indicates a need for referral for assessment and management of chronic kidney failure. [id number] 02:05:00 Test Item Value Reference Range Comments Magnesium (test code=MG) 1.9 mg/dl 1.6-2.3 CBC WITH AUTO [id number] 02:03:00 Test Item Value Reference Range Comments [...] code=IG%) 0.9 % 0.0-0.4 AFB CULTURE + [id number] 12:29:00 Test Item Value Reference Range Comments CULTURE (BEAKER) (test No acid-fast bacilli isolated zhnf=6010) in 42 days AFB SMEAR (BEAKER) (test No acid fast bacilli seen silv=589) AFB CULTURE + [id number] 12:28:00 Test Item Value Reference Range Comments CULTURE (BEAKER) (test No acid-fast bacilli isolated sofn=8644) in 42 days AFB SMEAR (BEAKER) (test No acid fast bacilli seen iopi=467) FUNGUS CULTURE + [id number] 17:13:00 Test Item Value Reference Range Comments CULTURE (BEAKER) (test No fungus isolated in 28 days nief=5500) FUNGUS SMEAR (BEAKER) (test No fungi seen vpck=4967) FUNGUS CULTURE + [id number] 17:13:00 Test Item Value Reference Range Comments CULTURE (BEAKER) (test No fungus isolated in 28 days jrwf=4969) FUNGUS SMEAR (BEAKER) (test No fungi seen vueh=6734) FUNGUS CULTURE + [id number] 21:46:00 Test Item Value Reference Range Comments CULTURE (BEAKER) (test No fungus isolated in 28 days kshl=5948) FUNGUS SMEAR (BEAKER) (test No fungi seen kdvd=9193) POCT-GLUCOSE [id number] 17:22:00 Test Item Value Reference Range Comments POC-GLUCOSE METER (BEAKER) 169 mg/dL 70-110 TESTED AT [address] (test dpwy=8895) [place] [id number] POCT-GLUCOSE [id number] 12:13:00 Test Item Value Reference Range Comments POC-GLUCOSE METER (BEAKER) 165 mg/dL 70-110 TESTED AT [address] (test jsaw=6083) [place] [id number] POCT-GLUCOSE [id number] 07:48:00 Test Item Value Reference Range Comments POC-GLUCOSE METER (BEAKER) 132 mg/dL 70-110 TESTED AT [address] (test dnct=3778) [place] [id number] BASIC METABOLIC [id number] 07:26:00 Test Item Value Reference Range Comments SODIUM (BEAKER) (test 133 meq/L 136-145 bkrt=066) POTASSIUM (BEAKER) (test 4.2 meq/L 3.5-5.1 czci=819) CHLORIDE (BEAKER) (test 101 meq/L 98-107 numd=527) CO2 (BEAKER) (test 22 meq/L 22-29 kfef=992) BLOOD UREA NITROGEN 38 mg/dL 7-21 (BEAKER) (test vekv=807) CREATININE (BEAKER) (test 4.01 mg/dL 0.57-1.25 lenq=001) GLUCOSE RANDOM (BEAKER) 110 mg/dL 70-105 (test ktti=045) CALCIUM (BEAKER) (test 8.7 mg/dL 8.4-10.2 rrhd=371) EGFR (BEAKER) (test 15 mL/min/1.73 sq m ESTIMATED GFR IS NOT oork=1972) ACCURATE CREATININE CLEARANCE IN PREDICTING GLOMERULAR FILTRATION RATE. ESTIMATED GFR IS NOT APPLICABLE FOR DIALYSIS PATIENTS. [id number] 07:25:00 Test Item Value Reference Range Comments PHOSPHORUS (BEAKER) (test tdzf=577) 4.4 mg/dL 2.3-4.7 [id number] 07:25:00 Test Item Value Reference Range Comments MAGNESIUM (BEAKER) (test wjnl=180) 1.9 mg/dL 1.6-2.6 CBC W/PLT COUNT & AUTO [id number] 06:54:00 Test Item Value Reference Range Comments WHITE BLOOD CELL COUNT (BEAKER) (test biok=077) 12.6 K/ L 4.0-10.0 RED BLOOD CELL COUNT (BEAKER) (test cbkj=468) 2.78 M/ L 4.20-5.80 HEMOGLOBIN (BEAKER) (test uiiu=175) 8.3 GM/DL 13.0-16.8 HEMATOCRIT (BEAKER) (test wlaq=863) 25.1 % 40.0-50.0 MEAN CORPUSCULAR VOLUME (BEAKER) (test rqum=841) 90.3 fL 82.0-98.0 MEAN CORPUSCULAR HEMOGLOBIN (BEAKER) (test 29.8 pg 27.0-33.0 glbg=179) MEAN CORPUSCULAR HEMOGLOBIN CONC (BEAKER) (test 33.1 GM/DL 32.0-36.0 zsoa=409) RED CELL DISTRIBUTION WIDTH (BEAKER) (test 16.1 % 10.3-14.2 ssrl=687) PLATELET COUNT (BEAKER) (test sbmg=406) 290 K/CU MM 150-430 MEAN PLATELET VOLUME (BEAKER) (test zzsr=112) 7.2 fL 6.5-10.5 NUCLEATED RED BLOOD CELLS (BEAKER) (test 0 /100 WBC 0-0 ohbv=154) NEUTROPHILS RELATIVE PERCENT (BEAKER) (test 74 % ijjv=721) LYMPHOCYTES RELATIVE PERCENT (BEAKER) (test 15 % rale=005) MONOCYTES RELATIVE PERCENT (BEAKER) (test 9 % cdig=229) EOSINOPHILS RELATIVE PERCENT (BEAKER) (test 2 % ppyl=637) BASOPHILS RELATIVE PERCENT (BEAKER) (test 0 % vuxa=222) NEUTROPHILS ABSOLUTE COUNT (BEAKER) (test 9.30 K/ L 1.80-8.00 hwof=844) LYMPHOCYTES ABSOLUTE COUNT (BEAKER) (test 1.89 K/ L 1.48-4.50 ezdz=292) MONOCYTES ABSOLUTE COUNT (BEAKER) (test 1.14 K/ L 0.00-1.30 zrsf=990) EOSINOPHILS ABSOLUTE COUNT (BEAKER) (test 0.26 K/ L 0.00-0.50 ncbk=388) BASOPHILS ABSOLUTE COUNT (BEAKER) (test 0.05 K/ L 0.00-0.20 oplj=820) 0.00POCT-GLUCOSE [id number] 22:31:00 Test Item Value Reference Range Comments POC-GLUCOSE METER (BEAKER) 133 mg/dL 70-110 TESTED AT [address] (test xwwa=1089) [place] [address] POCT-GLUCOSE [id number] 17:17:00 Test Item Value Reference Range Comments POC-GLUCOSE METER (BEAKER) 119 mg/dL 70-110 TESTED AT [address] (test occx=9751) [place] [address] POCT-GLUCOSE [id number] 11:43:00 Test Item Value Reference Range Comments POC-GLUCOSE METER (BEAKER) 175 mg/dL 70-110 TESTED AT [address] (test cxhb=0661) [place] [address] CBC W/PLT COUNT & AUTO [id number] 08:39:00 Test Item Value Reference Range Comments WHITE BLOOD CELL COUNT (BEAKER) (test yjoe=937) 13.4 K/ L 4.0-10.0 RED BLOOD CELL COUNT (BEAKER) (test qyve=630) 2.91 M/ L 4.20-5.80 HEMOGLOBIN (BEAKER) (test gnzs=863) 8.6 GM/DL 13.0-16.8 HEMATOCRIT (BEAKER) (test fyvx=207) 26.5 % 40.0-50.0 MEAN CORPUSCULAR VOLUME (BEAKER) (test wiuz=443) 91.1 fL 82.0-98.0 MEAN CORPUSCULAR HEMOGLOBIN (BEAKER) (test 29.4 pg 27.0-33.0 uasl=312) MEAN CORPUSCULAR HEMOGLOBIN CONC (BEAKER) (test 32.3 GM/DL 32.0-36.0 tpdy=652) RED CELL DISTRIBUTION WIDTH (BEAKER) (test 16.0 % 10.3-14.2 wajl=030) PLATELET COUNT (BEAKER) (test lkkz=234) 282 K/CU MM 150-430 MEAN PLATELET VOLUME (BEAKER) (test tjog=257) 7.7 fL 6.5-10.5 NUCLEATED RED BLOOD CELLS (BEAKER) (test 0 /100 WBC 0-0 vrpx=500) NEUTROPHILS RELATIVE PERCENT (BEAKER) (test 72 % tyia=448) LYMPHOCYTES RELATIVE PERCENT (BEAKER) (test 16 % phoe=200) MONOCYTES RELATIVE PERCENT (BEAKER) (test 10 % ionu=364) EOSINOPHILS RELATIVE PERCENT (BEAKER) (test 2 % jmsg=505) BASOPHILS RELATIVE PERCENT (BEAKER) (test 1 % rrfk=834) NEUTROPHILS ABSOLUTE COUNT (BEAKER) (test 9.63 K/ L 1.80-8.00 lzzi=965) LYMPHOCYTES ABSOLUTE COUNT (BEAKER) (test 2.15 K/ L 1.48-4.50 yzbv=126) MONOCYTES ABSOLUTE COUNT (BEAKER) (test 1.32 K/ L 0.00-1.30 sdyn=278) EOSINOPHILS ABSOLUTE COUNT (BEAKER) (test 0.23 K/ L 0.00-0.50 skpf=833) BASOPHILS ABSOLUTE COUNT (BEAKER) (test 0.10 K/ L 0.00-0.20 bgdw=093) 0.000.730.001.460.000.000.000.000.000.000.000.000.000.000.000.00(MANUAL DIFFERENTIAL)2016-12-24 08:39:00 Test Item Value Reference Range Comments TOTAL COUNTED (BEAKER) (test zkpr=2594) POCT-GLUCOSE [id number] 07:47:00 Test Item Value Reference Range Comments POC-GLUCOSE METER (BEAKER) 139 mg/dL 70-110 TESTED AT [address] (test mwad=4694) [facility] [address] BASIC METABOLIC [id number] 06:50:00 Test Item Value Reference Range Comments SODIUM (BEAKER) (test 133 meq/L 136-145 crbj=560) POTASSIUM (BEAKER) (test 4.2 meq/L 3.5-5.1 rgos=662) CHLORIDE (BEAKER) (test 102 meq/L 98-107 vmnh=575) CO2 (BEAKER) (test 21 meq/L 22-29 ewrj=615) BLOOD UREA NITROGEN 27 mg/dL 7-21 (BEAKER) (test zeer=307) CREATININE (BEAKER) (test 3.13 mg/dL 0.57-1.25 winb=526) GLUCOSE RANDOM (BEAKER) 100 mg/dL 70-105 (test mllz=039) CALCIUM (BEAKER) (test 8.8 mg/dL 8.4-10.2 evzv=146) EGFR (BEAKER) (test 21 mL/min/1.73 sq m ESTIMATED GFR IS NOT adwb=8272) ACCURATE CREATININE CLEARANCE IN PREDICTING GLOMERULAR FILTRATION RATE. ESTIMATED GFR IS NOT APPLICABLE FOR DIALYSIS PATIENTS. [id number] 06:41:00 Test Item Value Reference Range Comments PHOSPHORUS (BEAKER) (test idbl=024) 2.9 mg/dL 2.3-4.7 [id number] 06:41:00 Test Item Value Reference Range Comments MAGNESIUM (BEAKER) (test vazc=099) 1.7 mg/dL 1.6-2.6 POCT-GLUCOSE [id number] 21:52:00 Test Item Value Reference Range Comments POC-GLUCOSE METER (BEAKER) 97 mg/dL 70-110 TESTED AT [address] (test eggw=8055) [facility] [address] POCT-GLUCOSE [id number] 17:28:00 Test Item Value Reference Range Comments POC-GLUCOSE METER (BEAKER) 105 mg/dL 70-110 TESTED AT [address] (test ajmz=4769) [facility] [address] POCT-GLUCOSE [id number] 12:31:00 Test Item Value Reference Range Comments POC-GLUCOSE METER (BEAKER) 215 mg/dL 70-110 TESTED AT [address] (test ymhz=9004) [facility] [address] POCT-GLUCOSE [id number] 08:19:00 Test Item Value Reference Range Comments POC-GLUCOSE METER (BEAKER) 135 mg/dL 70-110 TESTED AT [facility] [address] (test kwyl=3190) [facility] [address] CBC W/PLT COUNT & AUTO [id number] 07:19:00 Test Item Value Reference Range Comments WHITE BLOOD CELL COUNT (BEAKER) (test nqyz=481) 15.0 K/ L 4.0-10.0 RED BLOOD CELL COUNT (BEAKER) (test wlad=781) 3.04 M/ L 4.20-5.80 HEMOGLOBIN (BEAKER) (test ysri=749) 8.8 GM/DL 13.0-16.8 HEMATOCRIT (BEAKER) (test pint=509) 27.3 % 40.0-50.0 MEAN CORPUSCULAR VOLUME (BEAKER) (test kvff=985) 89.8 fL 82.0-98.0 MEAN CORPUSCULAR HEMOGLOBIN (BEAKER) (test 29.0 pg 27.0-33.0 lhrm=679) MEAN CORPUSCULAR HEMOGLOBIN CONC (BEAKER) (test 32.3 GM/DL 32.0-36.0 prga=004) RED CELL DISTRIBUTION WIDTH (BEAKER) (test 17.0 % 10.3-14.2 ywzo=319) PLATELET COUNT (BEAKER) (test htpq=232) 285 K/CU MM 150-430 MEAN PLATELET VOLUME (BEAKER) (test hrxf=176) 7.2 fL 6.5-10.5 NUCLEATED RED BLOOD CELLS (BEAKER) (test 0 /100 WBC 0-0 yazg=580) NEUTROPHILS RELATIVE PERCENT (BEAKER) (test 77 % nier=646) LYMPHOCYTES RELATIVE PERCENT (BEAKER) (test 11 % bvvt=741) MONOCYTES RELATIVE PERCENT (BEAKER) (test 11 % wkyl=554) EOSINOPHILS RELATIVE PERCENT (BEAKER) (test 1 % fcnv=685) BASOPHILS RELATIVE PERCENT (BEAKER) (test 0 % vbhi=268) NEUTROPHILS ABSOLUTE COUNT (BEAKER) (test 11.50 K/ L 1.80-8.00 tutu=970) LYMPHOCYTES ABSOLUTE COUNT (BEAKER) (test 1.72 K/ L 1.48-4.50 jpwd=963) MONOCYTES ABSOLUTE COUNT (BEAKER) (test 1.59 K/ L 0.00-1.30 ksda=440) EOSINOPHILS ABSOLUTE COUNT (BEAKER) (test 0.17 K/ L 0.00-0.50 ceno=486) BASOPHILS ABSOLUTE COUNT (BEAKER) (test 0.05 K/ L 0.00-0.20 klaj=103) [id number] 06:41:00 Test Item Value Reference Range Comments PHOSPHORUS (BEAKER) (test btzt=529) 2.1 mg/dL 2.3-4.7 [id number] 06:41:00 Test Item Value Reference Range Comments MAGNESIUM (BEAKER) (test xwkw=397) 1.8 mg/dL 1.6-2.6 BASIC METABOLIC [id number] 06:41:00 Test Item Value Reference Range Comments SODIUM (BEAKER) (test 134 meq/L 136-145 zudt=538) POTASSIUM (BEAKER) (test 4.2 meq/L 3.5-5.1 vrug=998) CHLORIDE (BEAKER) (test 103 meq/L 98-107 fsth=187) CO2 (BEAKER) (test 23 meq/L 22-29 kxwz=241) BLOOD UREA NITROGEN 18 mg/dL 7-21 (BEAKER) (test tttg=455) CREATININE (BEAKER) (test 2.20 mg/dL 0.57-1.25 jdau=385) GLUCOSE RANDOM (BEAKER) 105 mg/dL 70-105 (test dzrc=014) CALCIUM (BEAKER) (test 8.5 mg/dL 8.4-10.2 szgh=016) EGFR (BEAKER) (test 31 mL/min/1.73 sq m ESTIMATED GFR IS NOT hbvj=9590) ACCURATE CREATININE CLEARANCE IN PREDICTING GLOMERULAR FILTRATION RATE. ESTIMATED GFR IS NOT APPLICABLE FOR DIALYSIS PATIENTS. POCT-GLUCOSE [id number] 21:43:00 Test Item Value Reference Range Comments POC-GLUCOSE METER (BEAKER) 278 mg/dL 70-110 TESTED AT [address] (test hhby=8103) [facility] [address] POCT-GLUCOSE [id number] 18:42:00 Test Item Value Reference Range Comments POC-GLUCOSE METER (BEAKER) 177 mg/dL 70-110 TESTED AT [address] (test muvz=6425) [facility] [address] POCT-GLUCOSE [id number] 14:53:00 Test Item Value Reference Range Comments POC-GLUCOSE METER (BEAKER) 197 mg/dL 70-110 TESTED AT [place] [id number] [facility] (test kbzp=0248) [facility] [address] CBC W/PLT COUNT & AUTO [id number] 12:20:00 Test Item Value Reference Range Comments WHITE BLOOD CELL COUNT (BEAKER) (test tecl=947) 13.6 K/ L 4.0-10.0 RED BLOOD CELL COUNT (BEAKER) (test bsnh=738) 2.85 M/ L 4.20-5.80 HEMOGLOBIN (BEAKER) (test cjcq=882) 8.3 GM/DL 13.0-16.8 HEMATOCRIT (BEAKER) (test ylzb=364) 25.8 % 40.0-50.0 MEAN CORPUSCULAR VOLUME (BEAKER) (test lpsg=652) 90.6 fL 82.0-98.0 MEAN CORPUSCULAR HEMOGLOBIN (BEAKER) (test 29.3 pg 27.0-33.0 ctzv=188) MEAN CORPUSCULAR HEMOGLOBIN CONC (BEAKER) (test 32.3 GM/DL 32.0-36.0 xtxx=860) RED CELL DISTRIBUTION WIDTH (BEAKER) (test 16.7 % 10.3-14.2 hlbu=859) PLATELET COUNT (BEAKER) (test lwqb=723) 252 K/CU MM 150-430 MEAN PLATELET VOLUME (BEAKER) (test esha=082) 7.4 fL 6.5-10.5 NUCLEATED RED BLOOD CELLS (BEAKER) (test 0 /100 WBC 0-0 xwch=470) NEUTROPHILS RELATIVE PERCENT (BEAKER) (test 75 % lxqe=447) LYMPHOCYTES RELATIVE PERCENT (BEAKER) (test 13 % wuqm=668) MONOCYTES RELATIVE PERCENT (BEAKER) (test 10 % quoj=987) EOSINOPHILS RELATIVE PERCENT (BEAKER) (test 2 % gozl=882) BASOPHILS RELATIVE PERCENT (BEAKER) (test 0 % fgym=298) NEUTROPHILS ABSOLUTE COUNT (BEAKER) (test 10.20 K/ L 1.80-8.00 qajk=783) LYMPHOCYTES ABSOLUTE COUNT (BEAKER) (test 1.78 K/ L 1.48-4.50 ktat=247) MONOCYTES ABSOLUTE COUNT (BEAKER) (test 1.32 K/ L 0.00-1.30 emww=243) EOSINOPHILS ABSOLUTE COUNT (BEAKER) (test 0.22 K/ L 0.00-0.50 axst=413) BASOPHILS ABSOLUTE COUNT (BEAKER) (test 0.06 K/ L 0.00-0.20 dzax=172) 0.00POCT-GLUCOSE [id number] 08:28:00 Test Item Value Reference Range Comments POC-GLUCOSE METER (BEAKER) 132 mg/dL 70-110 TESTED AT [facility] [address] (test idvc=[id number]) [facility] [address] BASIC METABOLIC [id number] 07:26:00 Test Item Value Reference Range Comments SODIUM (BEAKER) (test 131 meq/L 136-145 gylh=971) POTASSIUM (BEAKER) (test 4.2 meq/L 3.5-5.1 knip=414) CHLORIDE (BEAKER) (test 98 meq/L 98-107 bkvx=321) CO2 (BEAKER) (test 24 meq/L 22-29 ncqv=566) BLOOD UREA NITROGEN 25 mg/dL 7-21 (BEAKER) (test cvru=255) CREATININE (BEAKER) (test 3.02 mg/dL 0.57-1.25 lwjt=957) GLUCOSE RANDOM (BEAKER) 103 mg/dL 70-105 (test vnik=940) CALCIUM (BEAKER) (test 8.1 mg/dL 8.4-10.2 wqbh=879) EGFR (BEAKER) (test 21 mL/min/1.73 sq m ESTIMATED GFR IS NOT bbew=9030) ACCURATE CREATININE CLEARANCE IN PREDICTING GLOMERULAR FILTRATION RATE. ESTIMATED GFR IS NOT APPLICABLE FOR DIALYSIS PATIENTS. [id number] 07:17:00 Test Item Value Reference Range Comments PHOSPHORUS (BEAKER) (test kbjh=230) 3.1 mg/dL 2.3-4.7 [id number] 07:17:00 Test Item Value Reference Range Comments MAGNESIUM (BEAKER) (test edet=893) 1.8 mg/dL 1.6-2.6 CALCIUM, [id number] 05:38:00 Test Item Value Reference Range Comments CALCIUM IONIZED (BEAKER) (test lfar=562) 1.09 mmol/L 1.12-1.27 PH, BLOOD (BEAKER) (test rsqv=8592) 7.45 POCT-GLUCOSE [id number] 21:45:00 Test Item Value Reference Range Comments POC-GLUCOSE METER (BEAKER) 121 mg/dL 70-110 TESTED AT [address] (test vtot=0471) [facility] [address] POCT-GLUCOSE [id number] 16:48:00 Test Item Value Reference Range Comments POC-GLUCOSE METER (BEAKER) 157 mg/dL 70-110 TESTED AT [address] (test vtft=4856) [facility] [address] POCT-GLUCOSE [id number] 12:16:00 Test Item Value Reference Range Comments POC-GLUCOSE METER (BEAKER) 247 mg/dL 70-110 TESTED AT [address] (test uupf=8299) [facility] [address] POCT-GLUCOSE [id number] 08:14:00 Test Item Value Reference Range Comments POC-GLUCOSE METER (BEAKER) 166 mg/dL 70-110 TESTED AT [address] (test vxwo=8416) [facility] [address] BASIC METABOLIC [id number] 07:58:00 Test Item Value Reference Range Comments SODIUM (BEAKER) (test 131 meq/L 136-145 nxea=216) POTASSIUM (BEAKER) (test 3.9 meq/L 3.5-5.1 ynlv=128) CHLORIDE (BEAKER) (test 99 meq/L 98-107 kyje=453) CO2 (BEAKER) (test 26 meq/L 22-29 fubg=683) BLOOD UREA NITROGEN 18 mg/dL 7-21 (BEAKER) (test zjrm=899) CREATININE (BEAKER) (test 2.32 mg/dL 0.57-1.25 nvlf=801) GLUCOSE RANDOM (BEAKER) 145 mg/dL 70-105 (test ckwo=794) CALCIUM (BEAKER) (test 8.1 mg/dL 8.4-10.2 bhef=899) EGFR (BEAKER) (test 29 mL/min/1.73 sq m ESTIMATED GFR IS NOT jqqq=5624) ACCURATE CREATININE CLEARANCE IN PREDICTING GLOMERULAR FILTRATION RATE. ESTIMATED GFR IS NOT APPLICABLE FOR DIALYSIS PATIENTS. CBC W/PLT COUNT & AUTO [id number] 07:50:00 Test Item Value Reference Range Comments WHITE BLOOD CELL COUNT (BEAKER) (test odvl=064) 15.3 K/ L 4.0-10.0 RED BLOOD CELL COUNT (BEAKER) (test jzef=869) 3.00 M/ L 4.20-5.80 HEMOGLOBIN (BEAKER) (test pnkg=753) 8.4 GM/DL 13.0-16.8 HEMATOCRIT (BEAKER) (test xxre=782) 27.3 % 40.0-50.0 MEAN CORPUSCULAR VOLUME (BEAKER) (test llij=974) 90.9 fL 82.0-98.0 MEAN CORPUSCULAR HEMOGLOBIN (BEAKER) (test 28.0 pg 27.0-33.0 vfgx=481) MEAN CORPUSCULAR HEMOGLOBIN CONC (BEAKER) (test 30.8 GM/DL 32.0-36.0 qiqv=561) RED CELL DISTRIBUTION WIDTH (BEAKER) (test 15.9 % 10.3-14.2 gbko=551) PLATELET COUNT (BEAKER) (test ojyn=820) 271 K/CU MM 150-430 MEAN PLATELET VOLUME (BEAKER) (test mijs=546) 7.4 fL 6.5-10.5 NUCLEATED RED BLOOD CELLS (BEAKER) (test 0 /100 WBC 0-0 nxpa=495) NEUTROPHILS RELATIVE PERCENT (BEAKER) (test 76 % ckom=885) LYMPHOCYTES RELATIVE PERCENT (BEAKER) (test 14 % xzoa=407) MONOCYTES RELATIVE PERCENT (BEAKER) (test 9 % yrpa=400) EOSINOPHILS RELATIVE PERCENT (BEAKER) (test 1 % exak=873) BASOPHILS RELATIVE PERCENT (BEAKER) (test 0 % ctfo=057) NEUTROPHILS ABSOLUTE COUNT (BEAKER) (test 11.60 K/ L 1.80-8.00 yjrf=001) LYMPHOCYTES ABSOLUTE COUNT (BEAKER) (test 2.11 K/ L 1.48-4.50 klen=007) MONOCYTES ABSOLUTE COUNT (BEAKER) (test 1.36 K/ L 0.00-1.30 qunu=899) EOSINOPHILS ABSOLUTE COUNT (BEAKER) (test 0.17 K/ L 0.00-0.50 laji=173) BASOPHILS ABSOLUTE COUNT (BEAKER) (test 0.06 K/ L 0.00-0.20 ynda=894) [id number] 07:24:00 Test Item Value Reference Range Comments PHOSPHORUS (BEAKER) (test foju=771) 2.1 mg/dL 2.3-4.7 [id number] 07:24:00 Test Item Value Reference Range Comments MAGNESIUM (BEAKER) (test xpsx=659) 1.6 mg/dL 1.6-2.6 POCT-GLUCOSE [id number] 20:38:00 Test Item Value Reference Range Comments POC-GLUCOSE METER (BEAKER) 191 mg/dL 70-110 TESTED AT [address] (test xgvj=7250) [place] [id number] POCT-GLUCOSE [id number] 17:32:00 Test Item Value Reference Range Comments POC-GLUCOSE METER (BEAKER) 229 mg/dL 70-110 TESTED AT [address] (test szzy=7585) [place] [address] VANCOMYCIN LEVEL, [id number] 16:51:00 Test Item Value Reference Range Comments VANCOMYCIN TROUGH (BEAKER) (test cxot=360) 17.2 ug/mL 10.0-20.0 At end of dialysis on 12/20/16POCT-GLUCOSE [id number] 11:49:00 Test Item Value Reference Range Comments POC-GLUCOSE METER (BEAKER) 97 mg/dL 70-110 TESTED AT [address] (test medt=9185) [place] [id number] POCT-GLUCOSE [id number] 07:38:00 Test Item Value Reference Range Comments POC-GLUCOSE METER (BEAKER) 151 mg/dL 70-110 TESTED AT [address] (test ddyf=5939) [place] [id number] BASIC METABOLIC [id number] 06:39:00 Test Item Value Reference Range Comments SODIUM (BEAKER) (test 134 meq/L 136-145 qfbp=869) POTASSIUM (BEAKER) (test 3.9 meq/L 3.5-5.1 vkaw=940) CHLORIDE (BEAKER) (test 102 meq/L 98-107 frxq=292) CO2 (BEAKER) (test 24 meq/L 22-29 zveb=341) BLOOD UREA NITROGEN 23 mg/dL 7-21 (BEAKER) (test zdsf=407) CREATININE (BEAKER) (test 2.91 mg/dL 0.57-1.25 xbxy=554) GLUCOSE RANDOM (BEAKER) 99 mg/dL 70-105 (test unpv=389) CALCIUM (BEAKER) (test 8.2 mg/dL 8.4-10.2 crrb=718) EGFR (BEAKER) (test 22 mL/min/1.73 sq m ESTIMATED GFR IS NOT tfrf=5983) ACCURATE CREATININE CLEARANCE IN PREDICTING GLOMERULAR FILTRATION RATE. ESTIMATED GFR IS NOT APPLICABLE FOR DIALYSIS PATIENTS. [id number] 06:37:00 Test Item Value Reference Range Comments PHOSPHORUS (BEAKER) (test unio=905) 2.9 mg/dL 2.3-4.7 [id number] 06:37:00 Test Item Value Reference Range Comments MAGNESIUM (BEAKER) (test bzsh=346) 1.6 mg/dL 1.6-2.6 CBC W/PLT COUNT & AUTO [id number] 06:36:00 Test Item Value Reference Range Comments WHITE BLOOD CELL COUNT (BEAKER) (test xdlq=345) 14.1 K/ L 4.0-10.0 RED BLOOD CELL COUNT (BEAKER) (test mbmb=442) 3.01 M/ L 4.20-5.80 HEMOGLOBIN (BEAKER) (test bchs=811) 8.7 GM/DL 13.0-16.8 HEMATOCRIT (BEAKER) (test soav=669) 26.8 % 40.0-50.0 MEAN CORPUSCULAR VOLUME (BEAKER) (test aijf=033) 88.9 fL 82.0-98.0 MEAN CORPUSCULAR HEMOGLOBIN (BEAKER) (test 28.8 pg 27.0-33.0 xubq=142) MEAN CORPUSCULAR HEMOGLOBIN CONC (BEAKER) (test 32.5 GM/DL 32.0-36.0 axao=161) RED CELL DISTRIBUTION WIDTH (BEAKER) (test 16.3 % 10.3-14.2 ijfl=929) PLATELET COUNT (BEAKER) (test pdvb=423) 242 K/CU MM 150-430 MEAN PLATELET VOLUME (BEAKER) (test pavh=921) 6.9 fL 6.5-10.5 NUCLEATED RED BLOOD CELLS (BEAKER) (test 0 /100 WBC 0-0 fxxe=827) NEUTROPHILS RELATIVE PERCENT (BEAKER) (test 73 % vbxr=555) LYMPHOCYTES RELATIVE PERCENT (BEAKER) (test 15 % wlwe=147) MONOCYTES RELATIVE PERCENT (BEAKER) (test 9 % gonx=001) EOSINOPHILS RELATIVE PERCENT (BEAKER) (test 2 % ovlg=921) BASOPHILS RELATIVE PERCENT (BEAKER) (test 0 % uqen=390) NEUTROPHILS ABSOLUTE COUNT (BEAKER) (test 10.30 K/ L 1.80-8.00 zzkg=553) LYMPHOCYTES ABSOLUTE COUNT (BEAKER) (test 2.14 K/ L 1.48-4.50 hqtv=016) MONOCYTES ABSOLUTE COUNT (BEAKER) (test 1.33 K/ L 0.00-1.30 ebic=239) EOSINOPHILS ABSOLUTE COUNT (BEAKER) (test 0.29 K/ L 0.00-0.50 fuvv=058) BASOPHILS ABSOLUTE COUNT (BEAKER) (test 0.06 K/ L 0.00-0.20 nmlk=992) 0.00CALCIUM, [id number] 06:24:00 Test Item Value Reference Range Comments CALCIUM IONIZED (BEAKER) (test hjpg=706) 1.08 mmol/L 1.12-1.27 PH, BLOOD (BEAKER) (test nfpx=5320) 7.46 POCT-GLUCOSE [id number] 22:24:00 Test Item Value Reference Range Comments POC-GLUCOSE METER (BEAKER) 166 mg/dL 70-110 TESTED AT [address] (test yvbt=1152) [place] [id number] POCT-GLUCOSE [id number] 16:17:00 Test Item Value Reference Range Comments POC-GLUCOSE METER (BEAKER) 132 mg/dL 70-110 TESTED AT [address] (test yhve=4518) [place] [id number] POCT-GLUCOSE [id number] 12:16:00 Test Item Value Reference Range Comments POC-GLUCOSE METER (BEAKER) 90 mg/dL 70-110 TESTED AT [address] (test vayy=1305) [place] [id number] POCT-GLUCOSE [id number] 08:13:00 Test Item Value Reference Range Comments POC-GLUCOSE METER (BEAKER) 111 mg/dL 70-110 TESTED AT [address] (test ufci=1450) [place] [id number] CBC W/PLT COUNT & AUTO [id number] 07:40:00 Test Item Value Reference Range Comments WHITE BLOOD CELL COUNT (BEAKER) (test cxqe=129) 11.9 K/ L 4.0-10.0 RED BLOOD CELL COUNT (BEAKER) (test dimy=766) 3.11 M/ L 4.20-5.80 HEMOGLOBIN (BEAKER) (test ppjp=969) 8.9 GM/DL 13.0-16.8 HEMATOCRIT (BEAKER) (test slne=117) 28.0 % 40.0-50.0 MEAN CORPUSCULAR VOLUME (BEAKER) (test ujop=688) 90.3 fL 82.0-98.0 MEAN CORPUSCULAR HEMOGLOBIN (BEAKER) (test 28.7 pg 27.0-33.0 myus=380) MEAN CORPUSCULAR HEMOGLOBIN CONC (BEAKER) (test 31.8 GM/DL 32.0-36.0 zjss=659) RED CELL DISTRIBUTION WIDTH (BEAKER) (test 15.5 % 10.3-14.2 lxfx=733) PLATELET COUNT (BEAKER) (test tcul=102) 252 K/CU MM 150-430 MEAN PLATELET VOLUME (BEAKER) (test hufl=078) 7.1 fL 6.5-10.5 NUCLEATED RED BLOOD CELLS (BEAKER) (test 0 /100 WBC 0-0 qvjt=861) NEUTROPHILS RELATIVE PERCENT (BEAKER) (test 69 % ynyx=683) LYMPHOCYTES RELATIVE PERCENT (BEAKER) (test 18 % uhee=956) MONOCYTES RELATIVE PERCENT (BEAKER) (test 11 % yuci=159) EOSINOPHILS RELATIVE PERCENT (BEAKER) (test 2 % cnat=349) BASOPHILS RELATIVE PERCENT (BEAKER) (test 0 % mgdz=200) NEUTROPHILS ABSOLUTE COUNT (BEAKER) (test 8.27 K/ L 1.80-8.00 yrkr=146) LYMPHOCYTES ABSOLUTE COUNT (BEAKER) (test 2.09 K/ L 1.48-4.50 ltwv=592) MONOCYTES ABSOLUTE COUNT (BEAKER) (test 1.35 K/ L 0.00-1.30 esoa=366) EOSINOPHILS ABSOLUTE COUNT (BEAKER) (test 0.19 K/ L 0.00-0.50 rbko=664) BASOPHILS ABSOLUTE COUNT (BEAKER) (test 0.04 K/ L 0.00-0.20 vyxp=276) [id number] 07:29:00 Test Item Value Reference Range Comments PHOSPHORUS (BEAKER) (test kgip=959) 1.8 mg/dL 2.3-4.7 [id number] 07:29:00 Test Item Value Reference Range Comments MAGNESIUM (BEAKER) (test wcxm=481) 1.6 mg/dL 1.6-2.6 BASIC METABOLIC [id number] 07:29:00 Test Item Value Reference Range Comments SODIUM (BEAKER) (test 135 meq/L 136-145 jwhu=718) POTASSIUM (BEAKER) (test 3.7 meq/L 3.5-5.1 atof=849) CHLORIDE (BEAKER) (test 104 meq/L 98-107 dall=532) CO2 (BEAKER) (test 24 meq/L 22-29 vket=619) BLOOD UREA NITROGEN 12 mg/dL 7-21 (BEAKER) (test ggpv=708) CREATININE (BEAKER) (test 2.00 mg/dL 0.57-1.25 fbca=620) GLUCOSE RANDOM (BEAKER) 81 mg/dL 70-105 (test qnmc=326) CALCIUM (BEAKER) (test 8.2 mg/dL 8.4-10.2 uiog=803) EGFR (BEAKER) (test 34 mL/min/1.73 sq m ESTIMATED GFR IS NOT uoxm=9116) ACCURATE CREATININE CLEARANCE IN PREDICTING GLOMERULAR FILTRATION RATE. ESTIMATED GFR IS NOT APPLICABLE FOR DIALYSIS PATIENTS. POCT-GLUCOSE [id number] 21:13:00 Test Item Value Reference Range Comments POC-GLUCOSE METER (BEAKER) 107 mg/dL 70-110 TESTED AT [address] (test hupl=5766) [facility] [address] POCT-GLUCOSE [id number] 17:33:00 Test Item Value Reference Range Comments POC-GLUCOSE METER (BEAKER) 131 mg/dL 70-110 TESTED AT [address] (test ivkb=1409) [facility] [address] POCT-GLUCOSE [id number] 13:05:00 Test Item Value Reference Range Comments POC-GLUCOSE METER (BEAKER) 188 mg/dL 70-110 TESTED AT [address] (test ckoh=5680) [facility] [address] POCT-GLUCOSE [id number] 09:01:00 Test Item Value Reference Range Comments POC-GLUCOSE METER (BEAKER) 103 mg/dL 70-110 TESTED AT [place] [id number] [facility] (test wotv=0111) [facility] [address] CBC W/PLT COUNT & AUTO [id number] 07:08:00 Test Item Value Reference Range Comments WHITE BLOOD CELL COUNT (BEAKER) (test okri=462) 12.7 K/ L 4.0-10.0 RED BLOOD CELL COUNT (BEAKER) (test wtwp=695) 3.09 M/ L 4.20-5.80 HEMOGLOBIN (BEAKER) (test bkqk=572) 9.0 GM/DL 13.0-16.8 HEMATOCRIT (BEAKER) (test fffk=173) 27.4 % 40.0-50.0 MEAN CORPUSCULAR VOLUME (BEAKER) (test frwq=527) 88.8 fL 82.0-98.0 MEAN CORPUSCULAR HEMOGLOBIN (BEAKER) (test 29.0 pg 27.0-33.0 zoro=514) MEAN CORPUSCULAR HEMOGLOBIN CONC (BEAKER) (test 32.7 GM/DL 32.0-36.0 dvjk=383) RED CELL DISTRIBUTION WIDTH (BEAKER) (test 15.7 % 10.3-14.2 thii=876) PLATELET COUNT (BEAKER) (test nxjw=803) 257 K/CU MM 150-430 MEAN PLATELET VOLUME (BEAKER) (test dqpf=424) 7.0 fL 6.5-10.5 NUCLEATED RED BLOOD CELLS (BEAKER) (test 0 /100 WBC 0-0 flqy=150) NEUTROPHILS RELATIVE PERCENT (BEAKER) (test 74 % depw=425) LYMPHOCYTES RELATIVE PERCENT (BEAKER) (test 14 % icgi=490) MONOCYTES RELATIVE PERCENT (BEAKER) (test 9 % tumy=953) EOSINOPHILS RELATIVE PERCENT (BEAKER) (test 2 % zhsm=607) BASOPHILS RELATIVE PERCENT (BEAKER) (test 0 % tgse=808) NEUTROPHILS ABSOLUTE COUNT (BEAKER) (test 9.38 K/ L 1.80-8.00 balz=308) LYMPHOCYTES ABSOLUTE COUNT (BEAKER) (test 1.80 K/ L 1.48-4.50 vpks=060) MONOCYTES ABSOLUTE COUNT (BEAKER) (test 1.20 K/ L 0.00-1.30 zucp=955) EOSINOPHILS ABSOLUTE COUNT (BEAKER) (test 0.24 K/ L 0.00-0.50 yywj=981) BASOPHILS ABSOLUTE COUNT (BEAKER) (test 0.05 K/ L 0.00-0.20 axkw=292) [id number] 06:17:00 Test Item Value Reference Range Comments PHOSPHORUS (BEAKER) (test fqrr=265) 2.4 mg/dL 2.3-4.7 [id number] 06:17:00 Test Item Value Reference Range Comments MAGNESIUM (BEAKER) (test ktrx=938) 1.5 mg/dL 1.6-2.6 BASIC METABOLIC [id number] 06:17:00 Test Item Value Reference Range Comments SODIUM (BEAKER) (test 135 meq/L 136-145 xvgm=953) POTASSIUM (BEAKER) (test 3.7 meq/L 3.5-5.1 rhus=460) CHLORIDE (BEAKER) (test 104 meq/L 98-107 vmym=954) CO2 (BEAKER) (test 23 meq/L 22-29 qcqu=464) BLOOD UREA NITROGEN 24 mg/dL 7-21 (BEAKER) (test kcdy=483) CREATININE (BEAKER) (test 2.70 mg/dL 0.57-1.25 cgjh=252) GLUCOSE RANDOM (BEAKER) 93 mg/dL 70-105 (test xuqo=107) CALCIUM (BEAKER) (test 8.4 mg/dL 8.4-10.2 xykl=368) EGFR (BEAKER) (test 24 mL/min/1.73 sq m ESTIMATED GFR IS NOT ctzn=3995) ACCURATE CREATININE CLEARANCE IN PREDICTING GLOMERULAR FILTRATION RATE. ESTIMATED GFR IS NOT APPLICABLE FOR DIALYSIS PATIENTS. POCT-GLUCOSE [id number] 23:43:00 Test Item Value Reference Range Comments POC-GLUCOSE METER (BEAKER) 100 mg/dL 70-110 TESTED AT [facility] [address] (test uqez=3425) [facility] [address] POCT-GLUCOSE [id number] 17:44:00 Test Item Value Reference Range Comments POC-GLUCOSE METER (BEAKER) 208 mg/dL 70-110 TESTED AT [address] (test gocm=5797) [facility] [address] ANAEROBIC [id number] 14:43:00 Test Item Value Reference Range Comments CULTURE (BEAKER) (test ubvb=3979) No anaerobes isolated ANAEROBIC [id number] 14:42:00 Test Item Value Reference Range Comments CULTURE (BEAKER) (test qrau=1976) No anaerobes isolated POCT-GLUCOSE [id number] 12:02:00 Test Item Value Reference Range Comments POC-GLUCOSE METER (BEAKER) 208 mg/dL 70-110 TESTED AT [address] (test ekkz=9224) [place] [id number] POCT-GLUCOSE [id number] 09:52:00 Test Item Value Reference Range Comments POC-GLUCOSE METER (BEAKER) 86 mg/dL 70-110 TESTED AT [address] (test oatl=1768) [facility] [address] CBC W/PLT COUNT & AUTO [id number] 07:11:00 Test Item Value Reference Range Comments WHITE BLOOD CELL COUNT (BEAKER) (test ywxw=268) 11.1 K/ L 4.0-10.0 RED BLOOD CELL COUNT (BEAKER) (test styf=938) 3.26 M/ L 4.20-5.80 HEMOGLOBIN (BEAKER) (test bnyb=787) 9.6 GM/DL 13.0-16.8 HEMATOCRIT (BEAKER) (test ebck=051) 29.4 % 40.0-50.0 MEAN CORPUSCULAR VOLUME (BEAKER) (test ewke=464) 90.2 fL 82.0-98.0 MEAN CORPUSCULAR HEMOGLOBIN (BEAKER) (test 29.5 pg 27.0-33.0 kqko=915) MEAN CORPUSCULAR HEMOGLOBIN CONC (BEAKER) (test 32.7 GM/DL 32.0-36.0 hdku=675) RED CELL DISTRIBUTION WIDTH (BEAKER) (test 14.7 % 10.3-14.2 xnis=318) PLATELET COUNT (BEAKER) (test dpaq=333) 280 K/CU MM 150-430 MEAN PLATELET VOLUME (BEAKER) (test zycj=798) 6.8 fL 6.5-10.5 NUCLEATED RED BLOOD CELLS (BEAKER) (test 0 /100 WBC 0-0 smii=754) NEUTROPHILS RELATIVE PERCENT (BEAKER) (test 73 % apdp=702) LYMPHOCYTES RELATIVE PERCENT (BEAKER) (test 15 % yviz=569) MONOCYTES RELATIVE PERCENT (BEAKER) (test 10 % akri=021) EOSINOPHILS RELATIVE PERCENT (BEAKER) (test 2 % byaq=220) BASOPHILS RELATIVE PERCENT (BEAKER) (test 0 % jhqu=659) NEUTROPHILS ABSOLUTE COUNT (BEAKER) (test 8.08 K/ L 1.80-8.00 pgpi=975) LYMPHOCYTES ABSOLUTE COUNT (BEAKER) (test 1.66 K/ L 1.48-4.50 qnjn=007) MONOCYTES ABSOLUTE COUNT (BEAKER) (test 1.06 K/ L 0.00-1.30 lnzs=023) EOSINOPHILS ABSOLUTE COUNT (BEAKER) (test 0.26 K/ L 0.00-0.50 gvld=187) BASOPHILS ABSOLUTE COUNT (BEAKER) (test 0.05 K/ L 0.00-0.20 eeiz=208) [id number] 06:02:00 Test Item Value Reference Range Comments PHOSPHORUS (BEAKER) (test vkex=900) 1.7 mg/dL 2.3-4.7 [id number] 06:02:00 Test Item Value Reference Range Comments MAGNESIUM (BEAKER) (test npep=868) 1.5 mg/dL 1.6-2.6 BASIC METABOLIC [id number] 06:02:00 Test Item Value Reference Range Comments SODIUM (BEAKER) (test 136 meq/L 136-145 gtla=648) POTASSIUM (BEAKER) (test 3.9 meq/L 3.5-5.1 czvg=959) CHLORIDE (BEAKER) (test 103 meq/L 98-107 jvck=923) CO2 (BEAKER) (test 25 meq/L 22-29 bejv=344) BLOOD UREA NITROGEN 13 mg/dL 7-21 (BEAKER) (test ehtf=055) CREATININE (BEAKER) (test 1.67 mg/dL 0.57-1.25 qfot=506) GLUCOSE RANDOM (BEAKER) 74 mg/dL 70-105 (test fruy=519) CALCIUM (BEAKER) (test 8.7 mg/dL 8.4-10.2 kmtb=849) EGFR (BEAKER) (test 42 mL/min/1.73 sq m ESTIMATED GFR IS NOT luuj=1493) ACCURATE CREATININE CLEARANCE IN PREDICTING GLOMERULAR FILTRATION RATE. ESTIMATED GFR IS NOT APPLICABLE FOR DIALYSIS PATIENTS. POCT-GLUCOSE [id number] 21:46:00 Test Item Value Reference Range Comments POC-GLUCOSE METER (BEAKER) 83 mg/dL 70-110 TESTED AT [address] (test spip=2883) [place] [id number] POCT-GLUCOSE [id number] 17:45:00 Test Item Value Reference Range Comments POC-GLUCOSE METER (BEAKER) 83 mg/dL 70-110 TESTED AT [address] (test cjap=3317) [place] [id number] POCT-GLUCOSE [id number] 11:03:00 Test Item Value Reference Range Comments POC-GLUCOSE METER (BEAKER) 152 mg/dL 70-110 TESTED AT [address] (test prgq=6659) [place] [id number] CBC W/PLT COUNT & AUTO [id number] 08:54:00 Test Item Value Reference Range Comments WHITE BLOOD CELL COUNT (BEAKER) (test eazz=333) 14.2 K/ L 4.0-10.0 RED BLOOD CELL COUNT (BEAKER) (test ytik=555) 2.99 M/ L 4.20-5.80 HEMOGLOBIN (BEAKER) (test ytuj=792) 8.6 GM/DL 13.0-16.8 HEMATOCRIT (BEAKER) (test lioa=985) 27.1 % 40.0-50.0 MEAN CORPUSCULAR VOLUME (BEAKER) (test cizo=234) 90.6 fL 82.0-98.0 MEAN CORPUSCULAR HEMOGLOBIN (BEAKER) (test 28.6 pg 27.0-33.0 rixm=095) MEAN CORPUSCULAR HEMOGLOBIN CONC (BEAKER) (test 31.6 GM/DL 32.0-36.0 uxnc=627) RED CELL DISTRIBUTION WIDTH (BEAKER) (test 14.6 % 10.3-14.2 fnvf=829) PLATELET COUNT (BEAKER) (test lttj=571) 285 K/CU MM 150-430 MEAN PLATELET VOLUME (BEAKER) (test gppf=013) 7.1 fL 6.5-10.5 NUCLEATED RED BLOOD CELLS (BEAKER) (test 0 /100 WBC 0-0 tnao=107) NEUTROPHILS RELATIVE PERCENT (BEAKER) (test 79 % loel=598) LYMPHOCYTES RELATIVE PERCENT (BEAKER) (test 10 % uygv=240) MONOCYTES RELATIVE PERCENT (BEAKER) (test 9 % cmzr=862) EOSINOPHILS RELATIVE PERCENT (BEAKER) (test 2 % mepq=291) BASOPHILS RELATIVE PERCENT (BEAKER) (test 0 % xryy=516) NEUTROPHILS ABSOLUTE COUNT (BEAKER) (test 11.20 K/ L 1.80-8.00 gvrc=435) LYMPHOCYTES ABSOLUTE COUNT (BEAKER) (test 1.40 K/ L 1.48-4.50 zsky=401) MONOCYTES ABSOLUTE COUNT (BEAKER) (test 1.30 K/ L 0.00-1.30 xvty=404) EOSINOPHILS ABSOLUTE COUNT (BEAKER) (test 0.27 K/ L 0.00-0.50 vfyt=104) BASOPHILS ABSOLUTE COUNT (BEAKER) (test 0.04 K/ L 0.00-0.20 vkgn=618) 0.00BASIC METABOLIC [id number] 08:46:00 Test Item Value Reference Range Comments SODIUM (BEAKER) (test 138 meq/L 136-145 ppgw=114) POTASSIUM (BEAKER) (test 3.8 meq/L 3.5-5.1 hvum=298) CHLORIDE (BEAKER) (test 103 meq/L 98-107 hotv=868) CO2 (BEAKER) (test 25 meq/L 22-29 kxqk=876) BLOOD UREA NITROGEN 29 mg/dL 7-21 (BEAKER) (test ynlb=059) CREATININE (BEAKER) (test 2.68 mg/dL 0.57-1.25 dktb=127) GLUCOSE RANDOM (BEAKER) 91 mg/dL 70-105 (test zklb=099) CALCIUM (BEAKER) (test 7.9 mg/dL 8.4-10.2 mosa=482) EGFR (BEAKER) (test 25 mL/min/1.73 sq m ESTIMATED GFR IS NOT jfqs=6645) ACCURATE CREATININE CLEARANCE IN PREDICTING GLOMERULAR FILTRATION RATE. ESTIMATED GFR IS NOT APPLICABLE FOR DIALYSIS PATIENTS. VANCOMYCIN LEVEL, [id number] 07:53:00 Test Item Value Reference Range Comments VANCOMYCIN RANDOM (BEAKER) (test hffd=478) 15.1 ug/mL Reference Range: No NormalsPOCT-GLUCOSE [id number] 07:52:00 Test Item Value Reference Range Comments POC-GLUCOSE METER (BEAKER) 126 mg/dL 70-110 TESTED AT [address] (test jurc=4598) [place] [address] [id number] 07:50:00 Test Item Value Reference Range Comments PHOSPHORUS (BEAKER) (test wxxh=892) 2.1 mg/dL 2.3-4.7 [id number] 07:50:00 Test Item Value Reference Range Comments MAGNESIUM (BEAKER) (test tkci=525) 1.7 mg/dL 1.6-2.6 POCT-GLUCOSE [id number] 21:08:00 Test Item Value Reference Range Comments POC-GLUCOSE METER (BEAKER) 234 mg/dL 70-110 TESTED AT [address] (test tdcg=4443) [place] [address] POCT-GLUCOSE [id number] 17:02:00 Test Item Value Reference Range Comments POC-GLUCOSE METER (BEAKER) 230 mg/dL 70-110 TESTED AT [address] (test abfy=9606) [place] [address] SURGICALLY OBTAINED CULTURE + GRAM [id number] 09:26:00 Test Item Value Reference Range Comments CULTURE (BEAKER) (test <1+ Same organism has been mdrs=2251) isolated from cultures(s) of the same body site and collection date. Repeat identification and susceptibility testing performed only after consultation with the clinical microbiology laboratory.Refer to previous culture ofMethicillin resistant Staphylococcus aureus GRAM STAIN RESULT <1+ WBCs (BEAKER) (test uiey=9671) GRAM STAIN RESULT No organisms seen (BEAKER) (test adqw=[id number]) SURGICALLY OBTAINED CULTURE + GRAM [id number] 09:25:00 Test Item Value Reference Range Comments CULTURE (BEAKER) (test METHICILLIN RESISTANT <1+ Methicillin hpov=5879) STAPHYLOCOCCUS AUREUS resistant Staphylococcus aureus Clindamycin (test code=10) Erythromycin (test code=4) Linezolid (test code=40) Oxacillin (test code=14) Rifampin (test code=43) Tetracycline (test code=2) Trimethoprim + Sulfamethoxazole (test code=47) Vancomycin (test code=13) CULTURE (BEAKER) (test METHICILLIN RESISTANT <1+ Methicillin chym=14999) STAPHYLOCOCCUS AUREUS resistant Staphylococcus aureusof a second type Clindamycin (test code=10) Erythromycin (test code=4) Linezolid (test code=40) Oxacillin (test code=14) Rifampin (test code=43) Tetracycline (test code=2) Trimethoprim + Sulfamethoxazole (test code=47) Vancomycin (test code=13) GRAM STAIN RESULT No White blood cells (BEAKER) (test mekz=5904) seen GRAM STAIN RESULT No organisms seen (BEAKER) (test rgre=115778) POCT-GLUCOSE [id number] 08:39:00 Test Item Value Reference Range Comments POC-GLUCOSE METER (BEAKER) 129 mg/dL 70-110 TESTED AT [facility] [address] [facility] (test kuck=8360) [facility] [address] CBC W/PLT COUNT & AUTO [id number] 06:51:00 Test Item Value Reference Range Comments WHITE BLOOD CELL COUNT (BEAKER) (test ubpv=820) 17.4 K/ L 4.0-10.0 RED BLOOD CELL COUNT (BEAKER) (test ciwi=185) 2.99 M/ L 4.20-5.80 HEMOGLOBIN (BEAKER) (test mqzm=649) 8.9 GM/DL 13.0-16.8 HEMATOCRIT (BEAKER) (test vfqz=077) 27.1 % 40.0-50.0 MEAN CORPUSCULAR VOLUME (BEAKER) (test poan=393) 90.6 fL 82.0-98.0 MEAN CORPUSCULAR HEMOGLOBIN (BEAKER) (test 29.6 pg 27.0-33.0 sufa=220) MEAN CORPUSCULAR HEMOGLOBIN CONC (BEAKER) (test 32.7 GM/DL 32.0-36.0 vedo=711) RED CELL DISTRIBUTION WIDTH (BEAKER) (test 15.3 % 10.3-14.2 mdrh=777) PLATELET COUNT (BEAKER) (test cszm=509) 246 K/CU MM 150-430 MEAN PLATELET VOLUME (BEAKER) (test ryvp=221) 6.7 fL 6.5-10.5 NUCLEATED RED BLOOD CELLS (BEAKER) (test 0 /100 WBC 0-0 ddiw=669) NEUTROPHILS RELATIVE PERCENT (BEAKER) (test 83 % bfug=512) LYMPHOCYTES RELATIVE PERCENT (BEAKER) (test 7 % afks=464) MONOCYTES RELATIVE PERCENT (BEAKER) (test 9 % mwjt=035) EOSINOPHILS RELATIVE PERCENT (BEAKER) (test 1 % tifb=689) BASOPHILS RELATIVE PERCENT (BEAKER) (test 0 % cett=466) NEUTROPHILS ABSOLUTE COUNT (BEAKER) (test 14.50 K/ L 1.80-8.00 jooy=570) LYMPHOCYTES ABSOLUTE COUNT (BEAKER) (test 1.19 K/ L 1.48-4.50 etrm=413) MONOCYTES ABSOLUTE COUNT (BEAKER) (test 1.56 K/ L 0.00-1.30 wgfe=233) EOSINOPHILS ABSOLUTE COUNT (BEAKER) (test 0.13 K/ L 0.00-0.50 nenc=854) BASOPHILS ABSOLUTE COUNT (BEAKER) (test 0.03 K/ L 0.00-0.20 rtgj=017) 0.00BASIC METABOLIC [id number] 05:44:00 Test Item Value Reference Range Comments SODIUM (BEAKER) (test 139 meq/L 136-145 kyog=210) POTASSIUM (BEAKER) (test 3.7 meq/L 3.5-5.1 benj=942) CHLORIDE (BEAKER) (test 104 meq/L 98-107 gmxy=426) CO2 (BEAKER) (test 26 meq/L 22-29 mafk=911) BLOOD UREA NITROGEN 19 mg/dL 7-21 (BEAKER) (test fkvs=718) CREATININE (BEAKER) (test 2.08 mg/dL 0.57-1.25 uaap=941) GLUCOSE RANDOM (BEAKER) 127 mg/dL 70-105 (test kdap=061) CALCIUM (BEAKER) (test 7.9 mg/dL 8.4-10.2 uhrj=939) EGFR (BEAKER) (test 33 mL/min/1.73 sq m ESTIMATED GFR IS NOT euse=6893) ACCURATE CREATININE CLEARANCE IN PREDICTING GLOMERULAR FILTRATION RATE. ESTIMATED GFR IS NOT APPLICABLE FOR DIALYSIS PATIENTS. [id number] 05:42:00 Test Item Value Reference Range Comments PHOSPHORUS (BEAKER) (test kthh=582) 2.3 mg/dL 2.3-4.7 [id number] 05:42:00 Test Item Value Reference Range Comments MAGNESIUM (BEAKER) (test oxnq=628) 1.7 mg/dL 1.6-2.6 CALCIUM, [id number] 05:21:00 Test Item Value Reference Range Comments CALCIUM IONIZED (BEAKER) (test xpqv=542) 0.99 mmol/L 1.12-1.27 PH, BLOOD (BEAKER) (test nqmw=6405) 7.44 POCT-GLUCOSE [id number] 21:08:00 Test Item Value Reference Range Comments POC-GLUCOSE METER (BEAKER) 184 mg/dL 70-110 TESTED AT [address] (test zrmq=5053) [place] [id number] POCT-GLUCOSE [id number] 18:10:00 Test Item Value Reference Range Comments POC-GLUCOSE METER (BEAKER) 214 mg/dL 70-110 TESTED AT [address] (test urtu=2271) [place] [id number] POCT-GLUCOSE [id number] 18:04:00 Test Item Value Reference Range Comments POC-GLUCOSE METER (BEAKER) 169 mg/dL 70-110 TESTED AT [address] (test eigq=3868) [place] [id number] POCT-GLUCOSE [id number] 11:49:00 Test Item Value Reference Range Comments POC-GLUCOSE METER (BEAKER) 126 mg/dL 70-110 TESTED AT [address] (test dvxj=3310) [place] [id number] POCT-GLUCOSE [id number] 08:17:00 Test Item Value Reference Range Comments POC-GLUCOSE METER (BEAKER) 119 mg/dL 70-110 TESTED AT [address] (test yzvc=1640) [facility] [address] VANCOMYCIN LEVEL, [id number] 06:32:00 Test Item Value Reference Range Comments VANCOMYCIN RANDOM (BEAKER) (test bops=071) 13.8 ug/mL Reference Range: No NormalsPOCT-GLUCOSE [id number] 05:54:00 Test Item Value Reference Range Comments POC-GLUCOSE METER (BEAKER) 122 mg/dL 70-110 TESTED AT [address] (test pywi=3291) [facility] [address] B-TYPE NATRIURETIC FACTOR (BNP)2016-12-14 03:44:00 Test Item Value Reference Range Comments B-TYPE NATRIURETIC PEPTIDE (BEAKER) (test 883 pg/mL 0-100 arme=156) BASIC METABOLIC [id number] 03:40:00 Test Item Value Reference Range Comments SODIUM (BEAKER) (test 140 meq/L 136-145 mwzf=721) POTASSIUM (BEAKER) (test 4.5 meq/L 3.5-5.1 uwdk=676) CHLORIDE (BEAKER) (test 109 meq/L 98-107 aynt=429) CO2 (BEAKER) (test 23 meq/L 22-29 xqlg=238) BLOOD UREA NITROGEN 21 mg/dL 7-21 (BEAKER) (test bjdd=575) CREATININE (BEAKER) (test 2.96 mg/dL 0.57-1.25 stac=849) GLUCOSE RANDOM (BEAKER) 118 mg/dL 70-105 (test itfw=690) CALCIUM (BEAKER) (test 7.5 mg/dL 8.4-10.2 baog=422) EGFR (BEAKER) (test 22 mL/min/1.73 sq m ESTIMATED GFR IS NOT ocbu=6594) ACCURATE CREATININE CLEARANCE IN PREDICTING GLOMERULAR FILTRATION RATE. ESTIMATED GFR IS NOT APPLICABLE FOR DIALYSIS PATIENTS. [id number] 03:37:00 Test Item Value Reference Range Comments PHOSPHORUS (BEAKER) (test mdfd=859) 4.6 mg/dL 2.3-4.7 [id number] 03:37:00 Test Item Value Reference Range Comments MAGNESIUM (BEAKER) (test lheb=690) 1.7 mg/dL 1.6-2.6 CBC W/PLT COUNT & AUTO [id number] 03:36:00 Test Item Value Reference Range Comments WHITE BLOOD CELL COUNT (BEAKER) (test giov=011) 23.8 K/ L 4.0-10.0 RED BLOOD CELL COUNT (BEAKER) (test cppr=731) 2.80 M/ L 4.20-5.80 HEMOGLOBIN (BEAKER) (test fbvm=194) 8.3 GM/DL 13.0-16.8 HEMATOCRIT (BEAKER) (test cidw=206) 25.7 % 40.0-50.0 MEAN CORPUSCULAR VOLUME (BEAKER) (test jwsr=289) 91.8 fL 82.0-98.0 MEAN CORPUSCULAR HEMOGLOBIN (BEAKER) (test 29.6 pg 27.0-33.0 kvgr=395) MEAN CORPUSCULAR HEMOGLOBIN CONC (BEAKER) (test 32.2 GM/DL 32.0-36.0 wdei=004) RED CELL DISTRIBUTION WIDTH (BEAKER) (test 14.8 % 10.3-14.2 fxxy=494) PLATELET COUNT (BEAKER) (test nppw=175) 261 K/CU MM 150-430 MEAN PLATELET VOLUME (BEAKER) (test kyzf=164) 6.4 fL 6.5-10.5 NUCLEATED RED BLOOD CELLS (BEAKER) (test 0 /100 WBC 0-0 onvy=824) NEUTROPHILS RELATIVE PERCENT (BEAKER) (test 88 % mzly=218) LYMPHOCYTES RELATIVE PERCENT (BEAKER) (test 6 % mvnk=259) MONOCYTES RELATIVE PERCENT (BEAKER) (test 6 % oooi=221) EOSINOPHILS RELATIVE PERCENT (BEAKER) (test 0 % pmwj=575) BASOPHILS RELATIVE PERCENT (BEAKER) (test 0 % llbv=380) NEUTROPHILS ABSOLUTE COUNT (BEAKER) (test 21.00 K/ L 1.80-8.00 ggpy=932) LYMPHOCYTES ABSOLUTE COUNT (BEAKER) (test 1.16 K/ L 1.48-4.50 womb=531) MONOCYTES ABSOLUTE COUNT (BEAKER) (test 1.53 K/ L 0.00-1.30 lcbl=514) EOSINOPHILS ABSOLUTE COUNT (BEAKER) (test 0.08 K/ L 0.00-0.50 dbkn=284) BASOPHILS ABSOLUTE COUNT (BEAKER) (test 0.03 K/ L 0.00-0.20 kbqk=525) 0.00CALCIUM, [id number] 03:20:00 Test Item Value Reference Range Comments CALCIUM IONIZED (BEAKER) (test pldj=603) 1.02 mmol/L 1.12-1.27 PH, BLOOD (BEAKER) (test sfif=3331) 7.44 POCT-GLUCOSE [id number] 23:20:00 Test Item Value Reference Range Comments POC-GLUCOSE METER (BEAKER) 129 mg/dL 70-110 TESTED AT [facility] [address] [facility] (test utko=7451) [facility] [address] POCT-GLUCOSE [id number] 16:47:00 Test Item Value Reference Range Comments POC-GLUCOSE METER (BEAKER) 120 mg/dL 70-110 TESTED AT [facility] [address] (test gqka=8610) [place] [address] SPIN/CONCENTRATION [id number] 13:52:00 Test Item Value Reference Range Comments CONCENTRATION CHARGED (BEAKER) (test veut=4764) Done SPIN/CONCENTRATION [id number] 13:52:00 Test Item Value Reference Range Comments CONCENTRATION CHARGED (BEAKER) (test hvmu=3820) Done BLOOD GAS, [id number] 08:32:00 Test Item Value Reference Range Comments PH ARTERIAL (BEAKER) (test nehr=832) 7.41 7.35-7.45 PCO2 ARTERIAL (BEAKER) (test dxwb=676) 45 mmHg 35-45 PO2 ARTERIAL (BEAKER) (test qgqx=882) 137 mmHg 80-90 O2 SATURATION ARTERIAL (BEAKER) (test yrox=416) 98.7 % 96.0-97.0 HCO3 ARTERIAL (BEAKER) (test sdyg=406) 28 mmol/L 21-29 BASE EXCESS ARTERIAL (BEAKER) (test zqio=041) 2.8 mmol/L -2.0-3.0 PATIENT TEMPERATURE (BEAKER) (test cmvs=7563) 37.0 C FIO2 (BEAKER) (test gqef=5325) 40.0 % CBC W/PLT COUNT & AUTO [id number] 08:04:00 Test Item Value Reference Range Comments WHITE BLOOD CELL COUNT (BEAKER) (test pfqo=858) 23.6 K/ L 4.0-10.0 RED BLOOD CELL COUNT (BEAKER) (test kpic=559) 3.04 M/ L 4.20-5.80 HEMOGLOBIN (BEAKER) (test ryqh=686) 8.9 GM/DL 13.0-16.8 HEMATOCRIT (BEAKER) (test fxyf=647) 26.9 % 40.0-50.0 MEAN CORPUSCULAR VOLUME (BEAKER) (test ievm=013) 88.6 fL 82.0-98.0 MEAN CORPUSCULAR HEMOGLOBIN (BEAKER) (test 29.4 pg 27.0-33.0 dknp=275) MEAN CORPUSCULAR HEMOGLOBIN CONC (BEAKER) (test 33.2 GM/DL 32.0-36.0 ybez=045) RED CELL DISTRIBUTION WIDTH (BEAKER) (test 15.4 % 10.3-14.2 vajh=629) PLATELET COUNT (BEAKER) (test ybet=511) 291 K/CU MM 150-430 MEAN PLATELET VOLUME (BEAKER) (test dgid=198) 6.9 fL 6.5-10.5 NUCLEATED RED BLOOD CELLS (BEAKER) (test 0 /100 WBC 0-0 ghni=667) NEUTROPHILS RELATIVE PERCENT (BEAKER) (test 89 % ptoy=392) LYMPHOCYTES RELATIVE PERCENT (BEAKER) (test 5 % gcki=806) MONOCYTES RELATIVE PERCENT (BEAKER) (test 6 % thsn=344) EOSINOPHILS RELATIVE PERCENT (BEAKER) (test 0 % kvvz=731) BASOPHILS RELATIVE PERCENT (BEAKER) (test 0 % qote=623) NEUTROPHILS ABSOLUTE COUNT (BEAKER) (test 21.00 K/ L 1.80-8.00 oeqr=189) LYMPHOCYTES ABSOLUTE COUNT (BEAKER) (test 1.17 K/ L 1.48-4.50 tmyh=998) MONOCYTES ABSOLUTE COUNT (BEAKER) (test 1.37 K/ L 0.00-1.30 rbga=414) EOSINOPHILS ABSOLUTE COUNT (BEAKER) (test 0.04 K/ L 0.00-0.50 zedc=161) BASOPHILS ABSOLUTE COUNT (BEAKER) (test 0.02 K/ L 0.00-0.20 cxni=584) 0.00(MANUAL DIFFERENTIAL)2016-12-13 08:04:00 Test Item Value Reference Range Comments TOTAL COUNTED (BEAKER) (test ynpk=9347) WBC MORPHOLOGY (BEAKER) (test qfnr=272) Normal PLT MORPHOLOGY (BEAKER) (test riyn=348) Normal HYPOCHROMIA (BEAKER) (test llur=316) 1+ few POCT-GLUCOSE [id number] 07:23:00 Test Item Value Reference Range Comments POC-GLUCOSE METER (BEAKER) 116 mg/dL 70-110 TESTED AT [address] (test gywm=0813) [facility] [address] POCT-GLUCOSE [id number] 06:31:00 Test Item Value Reference Range Comments POC-GLUCOSE METER (BEAKER) 115 mg/dL 70-110 TESTED AT [address] (test zars=7519) [facility] [address] CALCIUM, [id number] 05:09:00 Test Item Value Reference Range Comments CALCIUM IONIZED (BEAKER) (test vobo=188) 1.06 mmol/L 1.12-1.27 PH, BLOOD (BEAKER) (test wqhh=1505) 7.46 BASIC METABOLIC [id number] 04:49:00 Test Item Value Reference Range Comments SODIUM (BEAKER) (test 139 meq/L 136-145 ujvp=206) POTASSIUM (BEAKER) (test 4.5 meq/L 3.5-5.1 igno=789) CHLORIDE (BEAKER) (test 106 meq/L 98-107 jmbm=062) CO2 (BEAKER) (test 26 meq/L 22-29 fxvt=171) BLOOD UREA NITROGEN 14 mg/dL 7-21 (BEAKER) (test zvag=924) CREATININE (BEAKER) (test 2.20 mg/dL 0.57-1.25 ynpn=834) GLUCOSE RANDOM (BEAKER) 138 mg/dL 70-105 (test qdkm=712) CALCIUM (BEAKER) (test 7.8 mg/dL 8.4-10.2 zgoh=682) EGFR (BEAKER) (test 31 mL/min/1.73 sq m ESTIMATED GFR IS NOT qwph=3263) ACCURATE CREATININE CLEARANCE IN PREDICTING GLOMERULAR FILTRATION RATE. ESTIMATED GFR IS NOT APPLICABLE FOR DIALYSIS PATIENTS. [id number] 04:47:00 Test Item Value Reference Range Comments PHOSPHORUS (BEAKER) (test uaut=190) 3.8 mg/dL 2.3-4.7 [id number] 04:47:00 Test Item Value Reference Range Comments MAGNESIUM (BEAKER) (test vzvr=774) 1.6 mg/dL 1.6-2.6 POCT-GLUCOSE [id number] 00:17:00 Test Item Value Reference Range Comments POC-GLUCOSE METER (BEAKER) 165 mg/dL 70-110 TESTED AT [place] [id number] [facility] (test yxhl=1540) [facility] [address] POCT-GLUCOSE [id number] 19:50:00 Test Item Value Reference Range Comments POC-GLUCOSE METER (BEAKER) 150 mg/dL 70-110 TESTED AT [address] (test jdil=1386) [facility] [address] GLUCOSE-STAT [id number] 16:40:00 Test Item Value Reference Range Comments GLUCOSE RANDOM (BEAKER) (test cnqy=663) 93 mg/dL 70-110 SODIUM NA-STAT [id number] 16:40:00 Test Item Value Reference Range Comments SODIUM (BEAKER) (test kcex=259) 136 meq/L 135-148 POTASSIUM-STAT [id number] 16:40:00 Test Item Value Reference Range Comments POTASSIUM (BEAKER) (test pecq=353) 3.8 meq/L 3.6-5.5 BLOOD GAS, [id number] 16:40:00 Test Item Value Reference Range Comments PH ARTERIAL (BEAKER) (test bvmn=056) 7.45 7.35-7.45 PCO2 ARTERIAL (BEAKER) (test sxru=312) 46 mmHg 35-45 PO2 ARTERIAL (BEAKER) (test lsff=844) 371 mmHg 80-90 O2 SATURATION ARTERIAL (BEAKER) (test rlso=527) 99.8 % 96.0-97.0 HCO3 ARTERIAL (BEAKER) (test kstx=421) 31 mmol/L 21-29 BASE EXCESS ARTERIAL (BEAKER) (test zffg=480) 6.0 mmol/L -2.0-3.0 PATIENT TEMPERATURE (BEAKER) (test aevh=3933) 37.0 C FIO2 (BEAKER) (test aoze=4503) 60.0 % HGB/HCT (H&H) - STAT [id number] 16:40:00 Test Item Value Reference Range Comments HEMOGLOBIN (BEAKER) (test hljb=631) 6.3 g/dL 13.0-16.8 HEMATOCRIT (BEAKER) (test msyf=890) 19.0 % 40.0-50.0 GLUCOSE-STAT [id number] 16:14:00 Test Item Value Reference Range Comments GLUCOSE RANDOM (BEAKER) (test yyhx=671) 89 mg/dL 70-110 [id number] 13:22:00 Test Item Value Reference Range Comments PARTIAL THROMBOPLASTIN TIME (BEAKER) (test 80.1 seconds 22.5-36.0 lgzi=448) POCT-GLUCOSE [id number] 11:57:00 Test Item Value Reference Range Comments POC-GLUCOSE METER (BEAKER) 82 mg/dL 70-110 TESTED AT [address] (test bxyh=5545) [facility] [address] POCT-GLUCOSE [id number] 08:15:00 Test Item Value Reference Range Comments POC-GLUCOSE METER (BEAKER) 90 mg/dL 70-110 TESTED AT [place] [id number] [facility] (test veco=1315) [facility] [address] CBC W/PLT COUNT & AUTO [id number] 05:50:00 Test Item Value Reference Range Comments WHITE BLOOD CELL COUNT (BEAKER) (test lofq=009) 13.9 K/ L 4.0-10.0 RED BLOOD CELL COUNT (BEAKER) (test jjbn=417) 2.42 M/ L 4.20-5.80 HEMOGLOBIN (BEAKER) (test saxt=859) 7.2 GM/DL 13.0-16.8 HEMATOCRIT (BEAKER) (test aovt=288) 21.8 % 40.0-50.0 MEAN CORPUSCULAR VOLUME (BEAKER) (test gxeh=100) 90.3 fL 82.0-98.0 MEAN CORPUSCULAR HEMOGLOBIN (BEAKER) (test 29.5 pg 27.0-33.0 urzz=619) MEAN CORPUSCULAR HEMOGLOBIN CONC (BEAKER) (test 32.7 GM/DL 32.0-36.0 necu=847) RED CELL DISTRIBUTION WIDTH (BEAKER) (test 15.9 % 10.3-14.2 oncr=844) PLATELET COUNT (BEAKER) (test sfoa=819) 282 K/CU MM 150-430 MEAN PLATELET VOLUME (BEAKER) (test mlfs=460) 6.8 fL 6.5-10.5 NUCLEATED RED BLOOD CELLS (BEAKER) (test 0 /100 WBC 0-0 arul=473) NEUTROPHILS RELATIVE PERCENT (BEAKER) (test 78 % dgqs=473) LYMPHOCYTES RELATIVE PERCENT (BEAKER) (test 11 % dhnt=793) MONOCYTES RELATIVE PERCENT (BEAKER) (test 9 % dunc=108) EOSINOPHILS RELATIVE PERCENT (BEAKER) (test 1 % jcrj=555) BASOPHILS RELATIVE PERCENT (BEAKER) (test 0 % skrd=143) NEUTROPHILS ABSOLUTE COUNT (BEAKER) (test 10.80 K/ L 1.80-8.00 kzyh=008) LYMPHOCYTES ABSOLUTE COUNT (BEAKER) (test 1.57 K/ L 1.48-4.50 abfj=635) MONOCYTES ABSOLUTE COUNT (BEAKER) (test 1.30 K/ L 0.00-1.30 tpmr=430) EOSINOPHILS ABSOLUTE COUNT (BEAKER) (test 0.20 K/ L 0.00-0.50 napv=773) BASOPHILS ABSOLUTE COUNT (BEAKER) (test 0.04 K/ L 0.00-0.20 swqo=837) 0.00CALCIUM, [id number] 05:43:00 Test Item Value Reference Range Comments CALCIUM IONIZED (BEAKER) (test qudk=264) 0.97 mmol/L 1.12-1.27 PH, BLOOD (BEAKER) (test rrbg=1769) 7.51 BASIC METABOLIC [id number] 05:35:00 Test Item Value Reference Range Comments SODIUM (BEAKER) (test 132 meq/L 136-145 ukuf=589) POTASSIUM (BEAKER) (test 4.2 meq/L 3.5-5.1 qpsk=055) CHLORIDE (BEAKER) (test 102 meq/L 98-107 dryy=858) CO2 (BEAKER) (test 22 meq/L 22-29 iidn=630) BLOOD UREA NITROGEN 26 mg/dL 7-21 (BEAKER) (test mcan=597) CREATININE (BEAKER) (test 3.57 mg/dL 0.57-1.25 nsxq=310) GLUCOSE RANDOM (BEAKER) 69 mg/dL 70-105 (test jfmw=228) CALCIUM (BEAKER) (test 7.6 mg/dL 8.4-10.2 yoih=176) EGFR (BEAKER) (test 18 mL/min/1.73 sq m ESTIMATED GFR IS NOT rmkg=4730) ACCURATE CREATININE CLEARANCE IN PREDICTING GLOMERULAR FILTRATION RATE. ESTIMATED GFR IS NOT APPLICABLE FOR DIALYSIS PATIENTS. [id number] 05:31:00 Test Item Value Reference Range Comments PHOSPHORUS (BEAKER) (test djkm=245) 3.7 mg/dL 2.3-4.7 [id number] 05:31:00 Test Item Value Reference Range Comments MAGNESIUM (BEAKER) (test onlk=749) 1.8 mg/dL 1.6-2.6 [id number] 05:30:00 Test Item Value Reference Range Comments PARTIAL THROMBOPLASTIN TIME (BEAKER) (test 44.4 seconds 22.5-36.0 nhxc=653) PROTHROMBIN [id number] 05:29:00 Test Item Value Reference Range Comments PROTIME (BEAKER) (test nrij=319) 14.5 seconds 11.7-14.7 INR (BEAKER) (test vqak=035) 1.1 <=5.9 RECOMMENDED COUMADIN/WARFARIN INR THERAPY RANGESSTANDARD DOSE: 2.0 - 3.0 Includes: PROPHYLAXIS forvenous thrombosis, systemic embolization; TREATMENT for venous thrombosis and/or pulmonary embolus.HIGH RISK: Target INR is 2.5-3.5 for patients with mechanical heart valves.POCT-GLUCOSE [id number] 22:10:00 Test Item Value Reference Range Comments POC-GLUCOSE METER (BEAKER) 106 mg/dL 70-110 TESTED AT [address] (test gvzj=9288) [place] [address] POCT-GLUCOSE [id number] 17:31:00 Test Item Value Reference Range Comments POC-GLUCOSE METER (BEAKER) 114 mg/dL 70-110 TESTED AT [address] (test gzyr=0847) [place] [address] [id number] 15:36:00 Test Item Value Reference Range Comments PARTIAL THROMBOPLASTIN TIME (BEAKER) (test 38.5 seconds 22.5-36.0 rpss=439) PROTHROMBIN [id number] 15:35:00 Test Item Value Reference Range Comments PROTIME (BEAKER) (test anvv=296) 14.6 seconds 11.7-14.7 INR (BEAKER) (test fvbo=320) 1.2 <=5.9 RECOMMENDED COUMADIN/WARFARIN INR THERAPY RANGESSTANDARD DOSE: 2.0 - 3.0 Includes: PROPHYLAXIS forvenous thrombosis, systemic embolization; TREATMENT for venous thrombosis and/or pulmonary embolus.HIGH RISK: Target INR is 2.5-3.5 for patients with mechanical heart valves.POCT-GLUCOSE [id number] 12:12:00 Test Item Value Reference Range Comments POC-GLUCOSE METER (BEAKER) 130 mg/dL 70-110 TESTED AT [address] (test tnxm=0420) [place] [id number] POCT-GLUCOSE [id number] 08:04:00 Test Item Value Reference Range Comments POC-GLUCOSE METER (BEAKER) 96 mg/dL 70-110 TESTED AT [address] (test cmgx=9018) [facility] [address] VANCOMYCIN LEVEL, [id number] 07:30:00 Test Item Value Reference Range Comments VANCOMYCIN RANDOM (BEAKER) (test amqp=507) 21.2 ug/mL Reference Range: No NormalsPOCT-GLUCOSE [id number] 20:25:00 Test Item Value Reference Range Comments POC-GLUCOSE METER (BEAKER) 152 mg/dL 70-110 TESTED AT [address] (test fezy=8342) [place] [id number] POCT-GLUCOSE [id number] 17:23:00 Test Item Value Reference Range Comments POC-GLUCOSE METER (BEAKER) 161 mg/dL 70-110 TESTED AT [address] (test gpuv=9131) [place] [id number] 13:34:00 Test Item Value Reference Range Comments PROTIME (BEAKER) (test wyur=537) 15.4 seconds 11.7-14.7 INR (BEAKER) (test gfuz=651) 1.2 <=5.9 PARTIAL THROMBOPLASTIN TIME (BEAKER) (test 51.5 seconds 22.5-36.0 moqp=435) RECOMMENDED COUMADIN/WARFARIN INR THERAPY RANGESSTANDARD DOSE: 2.0 - 3.0 Includes: PROPHYLAXIS forvenous thrombosis, systemic embolization; TREATMENT for venous thrombosis and/or pulmonary embolus.HIGH RISK: Target INR is 2.5-3.5 for patients with mechanical heart valves.POCT-GLUCOSE [id number] 12:11:00 Test Item Value Reference Range Comments POC-GLUCOSE METER (BEAKER) 140 mg/dL 70-110 TESTED AT [address] (test xocr=2359) [place] [id number] CBC W/PLT COUNT & AUTO [id number] 08:02:00 Test Item Value Reference Range Comments WHITE BLOOD CELL COUNT (BEAKER) (test hkjc=451) 14.8 K/ L 4.0-10.0 RED BLOOD CELL COUNT (BEAKER) (test yujk=035) 2.40 M/ L 4.20-5.80 HEMOGLOBIN (BEAKER) (test pqls=519) 7.0 GM/DL 13.0-16.8 HEMATOCRIT (BEAKER) (test evxx=736) 21.6 % 40.0-50.0 MEAN CORPUSCULAR VOLUME (BEAKER) (test dqud=516) 90.0 fL 82.0-98.0 MEAN CORPUSCULAR HEMOGLOBIN (BEAKER) (test 29.2 pg 27.0-33.0 wrwa=976) MEAN CORPUSCULAR HEMOGLOBIN CONC (BEAKER) (test 32.5 GM/DL 32.0-36.0 qnph=813) RED CELL DISTRIBUTION WIDTH (BEAKER) (test 15.8 % 10.3-14.2 xapp=654) PLATELET COUNT (BEAKER) (test ghdh=553) 276 K/CU MM 150-430 MEAN PLATELET VOLUME (BEAKER) (test laip=272) 6.8 fL 6.5-10.5 NUCLEATED RED BLOOD CELLS (BEAKER) (test 0 /100 WBC 0-0 ociq=469) NEUTROPHILS RELATIVE PERCENT (BEAKER) (test 80 % spvj=112) LYMPHOCYTES RELATIVE PERCENT (BEAKER) (test 10 % dkhn=061) MONOCYTES RELATIVE PERCENT (BEAKER) (test 9 % lnkm=631) EOSINOPHILS RELATIVE PERCENT (BEAKER) (test 1 % xhzb=787) BASOPHILS RELATIVE PERCENT (BEAKER) (test 0 % fjca=070) NEUTROPHILS ABSOLUTE COUNT (BEAKER) (test 11.80 K/ L 1.80-8.00 kxis=130) LYMPHOCYTES ABSOLUTE COUNT (BEAKER) (test 1.49 K/ L 1.48-4.50 jywr=853) MONOCYTES ABSOLUTE COUNT (BEAKER) (test 1.28 K/ L 0.00-1.30 whxo=728) EOSINOPHILS ABSOLUTE COUNT (BEAKER) (test 0.17 K/ L 0.00-0.50 zyog=854) BASOPHILS ABSOLUTE COUNT (BEAKER) (test 0.04 K/ L 0.00-0.20 pvol=120) 0.00VANCOMYCIN LEVEL, [id number] 07:43:00 Test Item Value Reference Range Comments VANCOMYCIN RANDOM (BEAKER) (test gfja=853) 31.1 ug/mL Reference Range: No NormalsBASIC METABOLIC [id number] 07:30:00 Test Item Value Reference Range Comments SODIUM (BEAKER) (test 134 meq/L 136-145 efwc=220) POTASSIUM (BEAKER) (test 3.6 meq/L 3.5-5.1 kldx=424) CHLORIDE (BEAKER) (test 100 meq/L 98-107 wdkl=822) CO2 (BEAKER) (test 27 meq/L 22-29 rhuk=899) BLOOD UREA NITROGEN 12 mg/dL 7-21 (BEAKER) (test rtxn=433) CREATININE (BEAKER) (test 1.88 mg/dL 0.57-1.25 rzde=169) GLUCOSE RANDOM (BEAKER) 109 mg/dL 70-105 (test hqft=326) CALCIUM (BEAKER) (test 7.7 mg/dL 8.4-10.2 fxdx=432) EGFR (BEAKER) (test 37 mL/min/1.73 sq m ESTIMATED GFR IS NOT dgzu=1578) ACCURATE CREATININE CLEARANCE IN PREDICTING GLOMERULAR FILTRATION RATE. ESTIMATED GFR IS NOT APPLICABLE FOR DIALYSIS PATIENTS. [id number] 07:25:00 Test Item Value Reference Range Comments PHOSPHORUS (BEAKER) (test twcb=954) 2.9 mg/dL 2.3-4.7 [id number] 07:25:00 Test Item Value Reference Range Comments MAGNESIUM (BEAKER) (test oino=816) 1.3 mg/dL 1.6-2.6 POCT-GLUCOSE [id number] 07:18:00 Test Item Value Reference Range Comments POC-GLUCOSE METER (BEAKER) 107 mg/dL 70-110 TESTED AT [facility] [address] [facility] (test adga=2119) [facility] [address] CALCIUM, [id number] 06:57:00 Test Item Value Reference Range Comments CALCIUM IONIZED (BEAKER) (test eyus=367) 1.04 mmol/L 1.12-1.27 PH, BLOOD (BEAKER) (test zqpn=5971) 7.44 BLOOD [id number] 17:00:00 Test Item Value Reference Range Comments CULTURE (BEAKER) (test crhm=9146) No growth in 5 days BLOOD [id number] 17:00:00 Test Item Value Reference Range Comments CULTURE (BEAKER) (test dmcl=3572) No growth in 5 days POCT-GLUCOSE [id number] 12:01:00 Test Item Value Reference Range Comments POC-GLUCOSE METER (BEAKER) 128 mg/dL 70-110 TESTED AT [facility] [address] [facility] (test zemb=6402) [facility] [address] POCT-GLUCOSE [id number] 07:48:00 Test Item Value Reference Range Comments POC-GLUCOSE METER (BEAKER) 100 mg/dL 70-110 TESTED AT [place] [id number] [facility] (test lejz=6251) [facility] [address] VANCOMYCIN LEVEL, [id number] 05:36:00 Test Item Value Reference Range Comments VANCOMYCIN RANDOM (BEAKER) (test oogg=566) 26.8 ug/mL Reference Range: No NormalsSPUTUM CULTURE + GRAM [id number] 00:09:00 Test Item Value Reference Range Comments CULTURE (BEAKER) (test Oropharyngeal contamination, evtf=8985) specimen rejected. Recollect requested. GRAM STAIN RESULT (BEAKER) No WBCs (test rqdf=5252) GRAM STAIN RESULT (BEAKER) >25 epithelial cells (test gnrn=44250) GRAM STAIN RESULT (BEAKER) 4+ gram positive rods (test xjdq=67222) GRAM STAIN RESULT (BEAKER) 4+ gram positive cocci in pairs (test ynct=883329) GRAM STAIN RESULT (BEAKER) 4+ budding yeast (test kcfz=210943) POCT-GLUCOSE [id number] 20:17:00 Test Item Value Reference Range Comments POC-GLUCOSE METER (BEAKER) 111 mg/dL 70-110 TESTED AT [facility] [address] [facility] (test khlz=1384) [facility] [address] TSH/FREE T4 IF [id number] 18:39:00 Test Item Value Reference Range Comments THYROID STIMULATING HORMONE (BEAKER) (test 3.14 uIU/mL 0.35-4.94 goqx=189) VITAMIN B12 AND [id number] 18:39:00 Test Item Value Reference Range Comments VITAMIN B12 (BEAKER) (test upni=709) 1407 pg/mL 213-816 FOLATE (BEAKER) (test zmhv=570) 16.4 ng/mL >=7.0 Effective 09/08/2014: Folate Reference Range ChangeNew: >=7.0 Previous: & gt;=[id number] 18:12:00 Test Item Value Reference Range Comments CALCIUM (BEAKER) (test gjyz=208) 8.2 mg/dL 8.4-10.2 PROTHROMBIN [id number] 18:07:00 Test Item Value Reference Range Comments PROTIME (BEAKER) (test oyqe=496) 15.5 seconds 11.7-14.7 INR (BEAKER) (test myuv=465) 1.2 <=5.9 RECOMMENDED COUMADIN/WARFARIN INR THERAPY RANGESSTANDARD DOSE: 2.0 - 3.0 Includes: PROPHYLAXIS forvenous thrombosis, systemic embolization; TREATMENT for venous thrombosis and/or pulmonary embolus.HIGH RISK: Target INR is 2.5-3.5 for patients with mechanical heart valves.[id number] 18:06:00 Test Item Value Reference Range Comments PHOSPHORUS (BEAKER) (test yzfs=777) 3.4 mg/dL 2.3-4.7 [id number] 18:06:00 Test Item Value Reference Range Comments MAGNESIUM (BEAKER) (test iuso=678) 1.5 mg/dL 1.6-2.6 HEPATIC FUNCTION [id number] 18:06:00 Test Item Value Reference Range Comments TOTAL PROTEIN (BEAKER) (test nyvx=499) 5.9 gm/dL 6.0-8.3 ALBUMIN (BEAKER) (test vflp=1643) 2.3 g/dL 3.5-5.0 BILIRUBIN TOTAL (BEAKER) (test ghse=182) 0.4 mg/dL 0.2-1.2 BILIRUBIN DIRECT (BEAKER) (test uzlb=330) 0.2 mg/dL 0.1-0.5 ALKALINE PHOSPHATASE (BEAKER) (test rxrw=521) 118 U/L 40-150 AST (SGOT) (BEAKER) (test hoto=121) 11 U/L 5-34 ALT (SGPT) (BEAKER) (test vjby=093) 7 U/L 6-55 [id number] 17:57:00 Test Item Value Reference Range Comments AMMONIA (BEAKER) (test qrvj=199) 23 mol/L 18-72 POCT-GLUCOSE [id number] 17:55:00 Test Item Value Reference Range Comments POC-GLUCOSE METER (BEAKER) 137 mg/dL 70-110 TESTED AT [address] (test yvnp=3227) [facility] [address] POCT-GLUCOSE [id number] 17:01:00 Test Item Value Reference Range Comments POC-GLUCOSE METER (BEAKER) 62 mg/dL 70-110 TESTED AT [place] [id number] [facility] (test uasz=2422) [facility] [address] [id number] 15:09:00 Test Item Value Reference Range Comments SODIUM (BEAKER) (test bufc=446) 138 meq/L 136-145 POTASSIUM (BEAKER) (test 4.0 meq/L 3.5-5.1 Specimen slightly hemolyzed mths=844) CHLORIDE (BEAKER) (test 105 meq/L 98-107 igva=349) CO2 (BEAKER) (test lwaw=424) 23 meq/L 22-29 BLOOD GAS, [id number] 14:56:00 Test Item Value Reference Range Comments PH ARTERIAL (BEAKER) (test nfag=412) 7.53 7.35-7.45 PCO2 ARTERIAL (BEAKER) (test asew=175) 35 mmHg 35-45 PO2 ARTERIAL (BEAKER) (test hwzh=321) 70 mmHg 80-90 O2 SATURATION ARTERIAL (BEAKER) (test wzwu=520) 95.5 % 96.0-97.0 HCO3 ARTERIAL (BEAKER) (test xegf=764) 28 mmol/L 21-29 BASE EXCESS ARTERIAL (BEAKER) (test tszo=503) 5.2 mmol/L -2.0-3.0 PATIENT TEMPERATURE (BEAKER) (test fnia=9816) 37.3 C FIO2 (BEAKER) (test nqjj=3369) 21.0 % CBC W/PLT COUNT & AUTO [id number] 14:56:00 Test Item Value Reference Range Comments WHITE BLOOD CELL COUNT (BEAKER) (test qfhn=079) 18.1 K/ L 4.0-10.0 RED BLOOD CELL COUNT (BEAKER) (test jyjm=132) 2.43 M/ L 4.20-5.80 HEMOGLOBIN (BEAKER) (test omws=359) 7.3 GM/DL 13.0-16.8 HEMATOCRIT (BEAKER) (test udmc=970) 22.2 % 40.0-50.0 MEAN CORPUSCULAR VOLUME (BEAKER) (test mudz=736) 91.7 fL 82.0-98.0 MEAN CORPUSCULAR HEMOGLOBIN (BEAKER) (test 30.0 pg 27.0-33.0 hvlw=617) MEAN CORPUSCULAR HEMOGLOBIN CONC (BEAKER) (test 32.7 GM/DL 32.0-36.0 airw=280) RED CELL DISTRIBUTION WIDTH (BEAKER) (test 15.7 % 10.3-14.2 saew=274) PLATELET COUNT (BEAKER) (test gplv=957) 290 K/CU MM 150-430 MEAN PLATELET VOLUME (BEAKER) (test tmgo=307) 6.9 fL 6.5-10.5 NUCLEATED RED BLOOD CELLS (BEAKER) (test 0 /100 WBC 0-0 otjq=081) NEUTROPHILS RELATIVE PERCENT (BEAKER) (test 84 % pdqr=595) LYMPHOCYTES RELATIVE PERCENT (BEAKER) (test 8 % behz=020) MONOCYTES RELATIVE PERCENT (BEAKER) (test 8 % endh=491) EOSINOPHILS RELATIVE PERCENT (BEAKER) (test 0 % fvdg=998) BASOPHILS RELATIVE PERCENT (BEAKER) (test 0 % zyxb=803) NEUTROPHILS ABSOLUTE COUNT (BEAKER) (test 15.10 K/ L 1.80-8.00 kyps=101) LYMPHOCYTES ABSOLUTE COUNT (BEAKER) (test 1.51 K/ L 1.48-4.50 gfgq=161) MONOCYTES ABSOLUTE COUNT (BEAKER) (test 1.43 K/ L 0.00-1.30 rbyg=600) EOSINOPHILS ABSOLUTE COUNT (BEAKER) (test 0.03 K/ L 0.00-0.50 smmp=221) BASOPHILS ABSOLUTE COUNT (BEAKER) (test 0.02 K/ L 0.00-0.20 efkm=163) 0.00POCT-GLUCOSE [id number] 12:19:00 Test Item Value Reference Range Comments POC-GLUCOSE METER (BEAKER) 75 mg/dL 70-110 TESTED AT [facility] [address] [facility] (test lzau=5424) [facility] [address] [id number] 09:59:00 Test Item Value Reference Range Comments HAPTOGLOBIN (BEAKER) (test issx=577) > mg/dL 14- Effective 09/08/2014: Reference Range ChangeNew: 14-258 Previous: 36- 195LACTATE DEHYDROGENASE (LDH)2016-12-08 09:56:00 Test Item Value Reference Range Comments LACTATE DEHYDROGENASE (BEAKER) (test gjac=332) 234 U/L 125-220 [id number] 09:35:00 Test Item Value Reference Range Comments FIBRINOGEN LEVEL (BEAKER) (test tlty=249) 554 mg/dl 225-434 BASIC METABOLIC [id number] 08:56:00 Test Item Value Reference Range Comments SODIUM (BEAKER) (test 139 meq/L 136-145 tzrd=212) POTASSIUM (BEAKER) (test 3.0 meq/L 3.5-5.1 xvop=273) CHLORIDE (BEAKER) (test 114 meq/L 98-107 dgkm=245) CO2 (BEAKER) (test 18 meq/L 22-29 hdpu=377) BLOOD UREA NITROGEN 14 mg/dL 7-21 (BEAKER) (test gnvh=549) CREATININE (BEAKER) (test 1.68 mg/dL 0.57-1.25 ffkt=936) GLUCOSE RANDOM (BEAKER) 65 mg/dL 70-105 (test joal=594) CALCIUM (BEAKER) (test 6.3 mg/dL 8.4-10.2 hkam=553) EGFR (BEAKER) (test 42 mL/min/1.73 sq m ESTIMATED GFR IS NOT hebb=3695) ACCURATE CREATININE CLEARANCE IN PREDICTING GLOMERULAR FILTRATION RATE. ESTIMATED GFR IS NOT APPLICABLE FOR DIALYSIS PATIENTS. CBC W/PLT COUNT & AUTO [id number] 08:55:00 Test Item Value Reference Range Comments WHITE BLOOD CELL COUNT (BEAKER) (test vhdu=873) 12.8 K/ L 4.0-10.0 RED BLOOD CELL COUNT (BEAKER) (test ozoj=953) 1.79 M/ L 4.20-5.80 HEMOGLOBIN (BEAKER) (test shrd=311) 5.4 GM/DL 13.0-16.8 HEMATOCRIT (BEAKER) (test pudt=595) 16.7 % 40.0-50.0 MEAN CORPUSCULAR VOLUME (BEAKER) (test pyta=211) 93.5 fL 82.0-98.0 MEAN CORPUSCULAR HEMOGLOBIN (BEAKER) (test 30.2 pg 27.0-33.0 lcog=382) MEAN CORPUSCULAR HEMOGLOBIN CONC (BEAKER) (test 32.3 GM/DL 32.0-36.0 qmde=756) RED CELL DISTRIBUTION WIDTH (BEAKER) (test 15.9 % 10.3-14.2 nhdm=142) PLATELET COUNT (BEAKER) (test ddta=149) 211 K/CU MM 150-430 MEAN PLATELET VOLUME (BEAKER) (test almq=931) 6.8 fL 6.5-10.5 NUCLEATED RED BLOOD CELLS (BEAKER) (test 0 /100 WBC 0-0 dezn=752) NEUTROPHILS RELATIVE PERCENT (BEAKER) (test 82 % apir=203) LYMPHOCYTES RELATIVE PERCENT (BEAKER) (test 8 % knmx=975) MONOCYTES RELATIVE PERCENT (BEAKER) (test 9 % ydcv=166) EOSINOPHILS RELATIVE PERCENT (BEAKER) (test 0 % xjoa=371) BASOPHILS RELATIVE PERCENT (BEAKER) (test 0 % qpuk=909) NEUTROPHILS ABSOLUTE COUNT (BEAKER) (test 10.50 K/ L 1.80-8.00 esse=220) LYMPHOCYTES ABSOLUTE COUNT (BEAKER) (test 1.08 K/ L 1.48-4.50 jmag=924) MONOCYTES ABSOLUTE COUNT (BEAKER) (test 1.17 K/ L 0.00-1.30 huas=159) EOSINOPHILS ABSOLUTE COUNT (BEAKER) (test 0.06 K/ L 0.00-0.50 sqvn=054) BASOPHILS ABSOLUTE COUNT (BEAKER) (test 0.04 K/ L 0.00-0.20 hbty=765) 0.00LACTIC ACID, VENOUS, WHOLE [id number] 08:52:00 Test Item Value Reference Range Comments LACTATE BLOOD VENOUS (2) (BEAKER) (test 0.5 mmol/L 0.5-2.2 trgb=7912) Effective 02/23/2016: Units/Reference Range ChangeNew: 0.5-2.2 mmol/L Previous: 5 -20 mg/dLPOCT-GLUCOSE [id number] 07:40:00 Test Item Value Reference Range Comments POC-GLUCOSE METER (BEAKER) 80 mg/dL 70-110 TESTED AT [facility] [address] (test ixnq=8078) [facility] [address] POCT-GLUCOSE [id number] 21:47:00 Test Item Value Reference Range Comments POC-GLUCOSE METER (BEAKER) 97 mg/dL 70-110 TESTED AT [address] (test anhq=4498) [facility] [address] POCT-GLUCOSE [id number] 17:45:00 Test Item Value Reference Range Comments POC-GLUCOSE METER (BEAKER) 115 mg/dL 70-110 TESTED AT [address] (test uefu=3566) [facility] [address] POCT-GLUCOSE [id number] 12:56:00 Test Item Value Reference Range Comments POC-GLUCOSE METER (BEAKER) 120 mg/dL 70-110 TESTED AT [address] (test csok=3624) [facility] [address] POCT-GLUCOSE [id number] 12:56:00 Test Item Value Reference Range Comments POC-GLUCOSE METER (BEAKER) 107 mg/dL 70-110 TESTED AT [address] (test azeh=6966) [facility] [address] CBC W/PLT COUNT & AUTO [id number] 11:18:00 Test Item Value Reference Range Comments WHITE BLOOD CELL COUNT (BEAKER) (test eoqm=878) 21.4 K/ L 4.0-10.0 RED BLOOD CELL COUNT (BEAKER) (test qluf=040) 2.63 M/ L 4.20-5.80 HEMOGLOBIN (BEAKER) (test jdvo=562) 7.5 GM/DL 13.0-16.8 HEMATOCRIT (BEAKER) (test ipjw=001) 24.1 % 40.0-50.0 MEAN CORPUSCULAR VOLUME (BEAKER) (test yqpk=746) 91.8 fL 82.0-98.0 MEAN CORPUSCULAR HEMOGLOBIN (BEAKER) (test 28.6 pg 27.0-33.0 zkie=649) MEAN CORPUSCULAR HEMOGLOBIN CONC (BEAKER) (test 31.1 GM/DL 32.0-36.0 qwbp=676) RED CELL DISTRIBUTION WIDTH (BEAKER) (test 15.4 % 10.3-14.2 fkxh=850) PLATELET COUNT (BEAKER) (test vpxg=897) 297 K/CU MM 150-430 MEAN PLATELET VOLUME (BEAKER) (test snps=137) 7.0 fL 6.5-10.5 NUCLEATED RED BLOOD CELLS (BEAKER) (test 0 /100 WBC 0-0 bzgb=757) NEUTROPHILS RELATIVE PERCENT (BEAKER) (test 88 % mlvh=032) LYMPHOCYTES RELATIVE PERCENT (BEAKER) (test 6 % lubp=559) MONOCYTES RELATIVE PERCENT (BEAKER) (test 6 % ydvl=736) EOSINOPHILS RELATIVE PERCENT (BEAKER) (test 0 % ftvy=996) BASOPHILS RELATIVE PERCENT (BEAKER) (test 0 % dudo=184) NEUTROPHILS ABSOLUTE COUNT (BEAKER) (test 18.90 K/ L 1.80-8.00 tvby=668) LYMPHOCYTES ABSOLUTE COUNT (BEAKER) (test 1.25 K/ L 1.48-4.50 qcgx=772) MONOCYTES ABSOLUTE COUNT (BEAKER) (test 1.26 K/ L 0.00-1.30 fchf=329) EOSINOPHILS ABSOLUTE COUNT (BEAKER) (test 0.05 K/ L 0.00-0.50 ycfk=046) BASOPHILS ABSOLUTE COUNT (BEAKER) (test 0.01 K/ L 0.00-0.20 abur=074) 0.000.520.000.000.560.000.000.000.00(MANUAL DIFFERENTIAL)2016-12-07 11:18:00 Test Item Value Reference Range Comments TOTAL COUNTED (BEAKER) (test xtow=7592) CATHETER TIP [id number] 09:38:00 Test Item Value Reference Range Comments CULTURE (BEAKER) (test METHICILLIN RESISTANT 15-29 Colonies On ctzg=9503) STAPHYLOCOCCUS AUREUS Direct Plate Methicillin resistant Staphylococcus aureus Clindamycin (test code=10) Erythromycin (test code=4) Linezolid (test code=40) Oxacillin (test code=14) Rifampin (test code=43) Tetracycline (test code=2) Trimethoprim + Sulfamethoxazole (test code=47) Vancomycin (test code=13) CULTURE (BEAKER) (test <15 Colonies On Direct zery=[id number]) Plate Methicillin resistant Staphylococcus aureusof a second type CALCIUM, [id number] 09:12:00 Test Item Value Reference Range Comments CALCIUM IONIZED (BEAKER) (test ojji=403) 1.04 mmol/L 1.12-1.27 PH, BLOOD (BEAKER) (test soim=7216) 7.40 BASIC METABOLIC [id number] 07:52:00 Test Item Value Reference Range Comments SODIUM (BEAKER) (test 134 meq/L 136-145 ocex=278) POTASSIUM (BEAKER) (test 4.1 meq/L 3.5-5.1 tfhr=748) CHLORIDE (BEAKER) (test 103 meq/L 98-107 mpnf=375) CO2 (BEAKER) (test 20 meq/L 22-29 uaqv=013) BLOOD UREA NITROGEN 37 mg/dL 7-21 (BEAKER) (test bsza=810) CREATININE (BEAKER) (test 3.25 mg/dL 0.57-1.25 yfnb=172) GLUCOSE RANDOM (BEAKER) 129 mg/dL 70-105 (test mngn=640) CALCIUM (BEAKER) (test 8.1 mg/dL 8.4-10.2 pkmy=292) EGFR (BEAKER) (test 20 mL/min/1.73 sq m ESTIMATED GFR IS NOT yzhk=3818) ACCURATE CREATININE CLEARANCE IN PREDICTING GLOMERULAR FILTRATION RATE. ESTIMATED GFR IS NOT APPLICABLE FOR DIALYSIS PATIENTS. [id number] 07:48:00 Test Item Value Reference Range Comments PHOSPHORUS (BEAKER) (test puvl=956) 4.8 mg/dL 2.3-4.7 [id number] 07:48:00 Test Item Value Reference Range Comments MAGNESIUM (BEAKER) (test slek=284) 1.9 mg/dL 1.6-2.6 ANAEROBIC [id number] 02:42:00 Test Item Value Reference Range Comments CULTURE (BEAKER) (test rqyd=9863) No anaerobes isolated POCT-GLUCOSE [id number] 20:57:00 Test Item Value Reference Range Comments POC-GLUCOSE METER (BEAKER) 191 mg/dL 70-110 TESTED AT [address] (test uesn=8841) [facility] [address] VANCOMYCIN LEVEL, [id number] 17:35:00 Test Item Value Reference Range Comments VANCOMYCIN RANDOM (BEAKER) (test zrzf=717) 21.9 ug/mL Reference Range: No NormalsPOCT-GLUCOSE [id number] 13:28:00 Test Item Value Reference Range Comments POC-GLUCOSE METER (BEAKER) 202 mg/dL 70-110 TESTED AT [facility] [address] [place] [address] (test emhw=8522) [facility] [address] POCT-GLUCOSE [id number] 08:30:00 Test Item Value Reference Range Comments POC-GLUCOSE METER (BEAKER) 144 mg/dL 70-110 TESTED AT [facility] [address] (test bujo=6943) [facility] [address] BASIC METABOLIC [id number] 07:04:00 Test Item Value Reference Range Comments SODIUM (BEAKER) (test 134 meq/L 136-145 ehwc=932) POTASSIUM (BEAKER) (test 3.8 meq/L 3.5-5.1 wzgw=296) CHLORIDE (BEAKER) (test 104 meq/L 98-107 jlnq=743) CO2 (BEAKER) (test 21 meq/L 22-29 doxz=274) BLOOD UREA NITROGEN 33 mg/dL 7-21 (BEAKER) (test ropi=599) CREATININE (BEAKER) (test 2.91 mg/dL 0.57-1.25 haeq=226) GLUCOSE RANDOM (BEAKER) 124 mg/dL 70-105 (test yqbf=193) CALCIUM (BEAKER) (test 7.8 mg/dL 8.4-10.2 fywt=041) EGFR (BEAKER) (test 22 mL/min/1.73 sq m ESTIMATED GFR IS NOT hfep=6385) ACCURATE CREATININE CLEARANCE IN PREDICTING GLOMERULAR FILTRATION RATE. ESTIMATED GFR IS NOT APPLICABLE FOR DIALYSIS PATIENTS. PROTHROMBIN [id number] 07:03:00 Test Item Value Reference Range Comments PROTIME (BEAKER) (test qukk=884) 14.7 seconds 11.7-14.7 INR (BEAKER) (test yaxb=634) 1.2 <=5.9 RECOMMENDED COUMADIN/WARFARIN INR THERAPY RANGESSTANDARD DOSE: 2.0 - 3.0 Includes: PROPHYLAXIS forvenous thrombosis, systemic embolization; TREATMENT for venous thrombosis and/or pulmonary embolus.HIGH RISK: Target INR is 2.5-3.5 for patients with mechanical heart valves.[id number] 07:01:00 Test Item Value Reference Range Comments PHOSPHORUS (BEAKER) (test bzns=076) 3.9 mg/dL 2.3-4.7 [id number] 07:01:00 Test Item Value Reference Range Comments MAGNESIUM (BEAKER) (test ubap=410) 1.7 mg/dL 1.6-2.6 CALCIUM, [id number] 06:45:00 Test Item Value Reference Range Comments CALCIUM IONIZED (BEAKER) (test oxlu=405) 1.00 mmol/L 1.12-1.27 PH, BLOOD (BEAKER) (test rivr=8116) 7.43 POCT-GLUCOSE [id number] 21:06:00 Test Item Value Reference Range Comments POC-GLUCOSE METER (BEAKER) 167 mg/dL 70-110 TESTED AT [address] (test jwkk=0996) [place] [address] POCT-GLUCOSE [id number] 17:43:00 Test Item Value Reference Range Comments POC-GLUCOSE METER (BEAKER) 212 mg/dL 70-110 TESTED AT [address] (test begz=0521) [place] [address]
[2018-03-20 13:14] LABS: Protime INR 1.18
[2018-03-20 13:22] LABS: Absolute Lymphocytes (CBC) 0.6 K/uL (0.7-4.9); Absolute Monocytes 1.2 K/uL (0.1-1.3); Absolute Neutrophil 11.9 K/uL (1.8-8.0); Basophils % 0.4 % (0-1.3); Eosinophils % 0.4 % (0-4.4); Hematocrit 25.6 % (39.6-49.0); Lymphocytes % 4.2 % (15.3-44.8); MCH 25.8 pg (27.0-35.0); MPV 10.1 fL (7.6-11.3); Monocytes % 8.8 % (3.3-12.3); RBC Red Blood Cell Count 3.09 M/uL (4.33-5.43)
[2018-03-20 13:27] LABS: Albumin 3.4 g/dL (3.2-5.5); Bilirubin Direct 0.1 mg/dL (0-0.2); Bilirubin Total 0.6 mg/dL (0.3-1.2); Magnesium 2.2 mg/dL (1.8-2.5); Protein, Total 7.3 g/dL (6.0-8.3)
--- NOTE | 2018-03-20 13:50 | RAD REPORT ---
EXAM DESCRIPTION: RAD - Chest Single View - 03/20/2018 1:20 pm CLINICAL HISTORY: Shortness of breath, altered mental status COMPARISON: February 27 TECHNIQUE: AP portable chest image was obtained 1318 hours . FINDINGS: Lung volumes remain relatively low. Cardiomegaly and vascular engorgement are present. Reena g markings are prominent. There is patchy airspace opacification in each lower lung field. Left pleur al effusion is suspected. No significant right pleural effusion. Trachea is midline. Double-lumen patric lysis catheter remains in place on the right. No acute aortic findings suspected. IMPRESSION: CHF/volume overload pattern is present with small left pleural effusion.
[2018-03-20] MEDS ORDERED: HYDRALAZINE HCL 20 MG/ML VIAL ONE (14:02)
[2018-03-20] MEDS ORDERED: LEVALBUTEROL 1.25 MG/3 ML NEB ONE (14:02)
[2018-03-20 14:10] LABS: Blood Morphology Comment NOT SEEN (NOT SEEN); Platelet Estimate DECR; Urine White Blood Cell Casts OK
[2018-03-20 14:49] LABS: Arterial Blood Carboxyhemoglob 1.8 % (0-1.5); Blood Gas Oxyhemoglobin 90.5 % (94-97); Blood O2 Saturation 93.3 % (92-98.5)
--- NOTE | 2018-03-20 15:37 | RAD REPORT ---
EXAM DESCRIPTION: CT - Head Brain Wo Cont - 03/20/2018 3:27 pm CLINICAL HISTORY: Altered mental status, confused, declining state COMPARISON: December 2017 TECHNIQUE: Axial 5 mm thick images of the head were obtained without IV contrast. All CT scans are performed using dose optimization technique as appropriate and may include automated exposure control or mA/KV adjustment according to patient size. FINDINGS: No intracranial hemorrhage, mass, edema or shift of mid-line structures. No acute cortical based infarction. No cortical edema or sulcal effacement. Patient has atrophy and chronic ischemic c hange. Ventricular size is out of proportion to the amount of volume loss. Correlation is needed with any normal pressure hydrocephalus exam findings. Arterial and physiologic calcifications are present. No abnormal extra-axial fluid collections. Mastoid air cells and visualized portions of the paranasal sinuses are clear. No acute bony findings. IMPRESSION: No hemorrhage, acute infarction, edema or other acute intracranial finding. Suspected normal pressure hydrocephalus. Correlation is needed with history and exam findings.
--- NOTE | 2018-03-20 15:47 | EKG ---
Test Date: 2018-03-20 Test Time: 12:58:28 Fur Machine Operator: SONAL MEASUREMENT RESULTS: Intervals: Rate: 75 IL: 192 QRSD: 148 QT: 436 QTc: 486 [place]: P: 44 IL: 192 QRS: 33 T: 224 INTERPRETIVE STATEMENTS: Normal sinus rhythm Possible Left atrial enlargement Left bundle branch block Abnormal ECG Compared to ECG 02/27/2018 03:12:29 Left bundle-branch block now present Myocardial infarct finding no longer present Electronically Signed On 03-20-18 15:46:17 CDT by Júnior Napoles
--- NOTE | 2018-03-20 15:54 | RAD REPORT ---
EXAM DESCRIPTION: CT - Abdomen Pelvis Wo Contrast - 03/20/2018 3:30 pm CLINICAL HISTORY: Abdominal pain COMPARISON: CT December 20 TECHNIQUE: Axial [address] imaging of the abdomen and pelvis was performed without IV contrast. No IV contrast was given because of allergy, abnormal renal function, patient refusal or physician re quest. No oral contrast administered. All CT scans are performed using dose optimization technique as appropriate and may include automated exposure control or mA/KV adjustment according to patient size. FINDINGS: Heart and lung base findings are detailed on separate report. There is substantial motion degradation involving the upper and mid portion of the abdomen and pelvis . The liver, spleen and pancreas show no suspicious findings on non-contrast imaging. Gallbladder is di stended. Gallstones can be occult. Biliary tree is not dilated. Gallbladder wall thickening or edema cannot be accurately assessed due to the extent of motion. No hydronephrosis or suspicious renal mass. No obstructing or nonobstructing calculi seen. Patient costa s dense vascular calcifications. Urinary bladder is tightly contracted precluding accurate assessment . No bladder calculi seen. No significant adrenal finding. Isodense renal masses and pyelonephritis c annot be excluded in the absence of IV contrast. No acute gastric finding suspected. Large and small bowel loops are not dilated. Air is present in th e appendix. Acute appendicitis is not suspected. The appendix is partially retrocecal. Moderate stool volume in the colon. Peralta of the rectum are mildly prominent. Minimal sigmoid diverticulosis. No ma ss or bulky lymphadenopathy. No free air or pneumatosis. Small quantity of free fluid is present. Prominent disc and bony degenerative changes are present. There is extensive postsurgical change span negra the lower lumbar spine and sacrum. Advanced degenerative change is present involving the disc an d endplates at L5-S1. There are bone resorption changes at L5 and S1. These changes are not substanti ally different from prior imaging. This is probably a combination of degenerative change an osteopeni c change. Extent of hardware alters the mechanical loading of the lumbosacral junction. Review of heena or imaging details a history of discitis/osteomyelitis in this region. Current findings do not indica te a progressive process at this location. . IMPRESSION: No bowel obstruction, free air or surgically emergent finding. Peralta of the rectum are p rominent. Mild localized inflammatory process is possible. . Gallbladder is distended. Gallstones can be occult on CT imaging. Due to the extensive motion degrada tion, gallbladder wall thickening or edema cannot be evaluated. Biliary tree is normal. No acute finding. Urinary bladder is fully contracted limiting assessment. Extensive degenerative and postsurgical change near the lumbosacral junction. 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 Current findings are stable.
--- NOTE | 2018-03-20 15:57 | RAD REPORT ---
EXAM DESCRIPTION: CT - Thorax Wo Con - 03/20/2018 3:37 pm CLINICAL HISTORY: Chest pain, shortness of breath COMPARISON: CT February 27 TECHNIQUE: Axial 5 mm thick images of the chest were obtained without IV contrast. All CT scans are performed using dose optimization technique as appropriate and may include automated exposure control or mA/KV adjustment according to patient size. FINDINGS: Large left-side and moderately large right-side pleural effusions layering along the poste rior aspect of the chest. Loculation is not suspected. Left-side pleural fluid has enlarged since February 27. Partial atelectasis is present in both lung rodriguez. No large mass or consolidation in the lung fi elds. There are patchy areas of interstitial and alveolar opacification in the anterior mid and lower lung rodriguez suspicious for infiltrate. Infiltrates could be masked in the left lower lobe atelectasi s. No pleural based mass. No pneumothorax. No abnormal mediastinal or hilar masses or lymphadenopathy seen. No gross aortic or pulmonary artery finding suspected. Assessment is limited in the absence of IV contrast. No pericardial thickening or effusion. No chest wall mass or abnormal axillary lymphadenopathy. Bilateral gynecomastia changes are present s imilar to the recent study. IMPRESSION: Large left-side and moderately large right-side pleural effusions layering in the depend ent portion of the chest. Left-side pleural effusion has enlarged since February 27. Patchy infiltrate changes are present in the anterior lower lung rodriguez. Left lower lobe atelectasis could potentially mask minimal infiltrate in this location.
[2018-03-20] MEDS ORDERED: D50W 25 GM/50 ML SYRINGE IV ONE (16:43)
[2018-03-20] MEDS ORDERED: IPRATROPIUM BROM 0.5MG/2.5ML NEB PRN (16:53)
[2018-03-20] MEDS ORDERED: ACETAMINOPHEN 500 MG TAB PO PRN (16:53)
[2018-03-20] MEDS ORDERED: ONDANSETRON 4 MG/2 ML VIAL IV PRN (16:53)
[2018-03-20] MEDS ORDERED: HYDRALAZINE HCL 20 MG/ML VIAL IV PRN (16:53)
[2018-03-20] MEDS ORDERED: ACETAMINOPHEN 650MG/RECT SUPP PR PRN (16:53)
[2018-03-20] MEDS ORDERED: ALBUTEROL 2.5 MG/3 ML NEB SOL NEB PRN (16:53)
[2018-03-20] MEDS ORDERED: DEXTROSE 10%-WATER 500 ML IV ONE (16:58)
[2018-03-20] MEDS: DEXTROSE 10%-WATER 500 ML IV SCH (17:00)
[2018-03-20] MEDS ORDERED: DEXTROSE 10%-WATER 500 ML IV SCH (17:00)
[2018-03-20] MEDS ORDERED: D50W 25 GM/50 ML SYRINGE IV PRN (17:09)
[2018-03-20] MEDS ORDERED: GLUCAGON 1 MG/VIAL IM PRN (17:09)
--- NOTE | 2018-03-20 17:17 | ER ---
Nurse's Notes [facility] Unit Name: Federico Martinez Age: 57 yrs Sex: Male : 1960 Arrival Date: 03/20/2018 Time: 12:41 Bed 3 Private MD: Diagnosis: Altered mental status, unspecified Presentation: 03/20 12:52 Presenting complaint: EMS states: FSBS was 50 at the facility, they gave glucose paste jl7 and it come up to 80. His oxygen sat. was 70%, the gave 3 lpm NC and it came up to 92%. His normal is A\\T\\O 3 and pleasant. Transition of care: patient was received from another setting of care (long-term care [facility]), [facility]. Onset of symptoms was March 20, 2018. Risk Assessment: Do you want to hurt yourself or someone else? Patient reports no desire to harm self or others. Initial Sepsis Screen: Does the patient meet any 2 criteria? No. Patient's initial sepsis screen is negative. Does the patient have a suspected source of infection? No. Patient's initial sepsis screen is negative. Care prior to arrival: None. 12:52 Method Of Arrival: EMS: [facility] jl7 12:52 Acuity: CHARLES 2 jl7 Historical: - Allergies: 13:02 No Known Drug Allergies; jl7 - Home Meds: 17:17 alprazolam 1 mg Oral tab Tue, Elissa and Sat for anxiety [Active]; alprazolam 0.5 mg Oral jl7 tab 1 tab nightly for Anxiety [Active]; aspirin 81 mg Oral chew 1 tab once daily [Active]; - PMHx: 17:17 Bipolar disorder; Schizophrenia; CHF; COPD; Diabetes - IDDM; Dialysis; ESRD; jl7 - Immunization history:: Adult Immunizations unknown. - Social history:: Smoking status: unknown. - Ebola Screening: : No symptoms or risks identified at this time. - History obtained from: daughter, Reports "I can't remember what all he takes. I'll call the care home so they can send a list over.". Screenin:55 Abuse screen:. Nutritional screening: No deficits noted. Tuberculosis screening: No jl7 symptoms or risk factors identified. Assessment: 12:55 General: Appears distressed. Pain: Unable to use pain scale. Patient is unresponsive. jl7 Neuro: Level of Consciousness is obtunded. Cardiovascular: Heart tones S1 S2 present Patient's skin is warm and dry. Respiratory: Airway is patent Respiratory effort is even, labored, Respiratory pattern is regular, symmetrical, Breath sounds with crackles bilaterally. Derm: Skin is dry, Skin is pale, Skin temperature is warm. 14:15 Reassessment: Daughter at bedside. jl7 15:30 Reassessment: No changes from previously documented assessment. Patient and/or family jl7 updated on plan of care and expected duration. Pain level reassessed. Patient is alert, oriented x 3, equal unlabored respirations, skin warm/dry/pink. 16:40 Reassessment: Dr. Rojas at bedside discussing plan of care. Pt's FSBS 62. VO for 1 amp jl7 of d50 and D10 in water at 20 cc/hr. Patient states symptoms have improved. 17:40 Reassessment: No changes from previously documented assessment. Patient and/or family jl7 updated on plan of care and expected duration. Pain level reassessed. Vital Signs: 13:02 BP 178 / 108; Pulse 81; Resp 20; Temp 100; Pulse Ox 98% on 4 lpm NC; jl7 13:30 BP 182 / 109; Pulse 73; Resp 18; Pulse Ox 100% on R/A; dh3 14:25 BP 182 / 107; Pulse 84; Resp 16; Pulse Ox 98% ; jl7 15:00 BP 181 / 102; Pulse 62; Resp 19; Pulse Ox 94% on 4 lpm NC; jl7 15:30 BP 180 / 104; Pulse 79; Resp 19; Pulse Ox 95% on 4 lpm NC; jl7 16:00 BP 189 / 103; Pulse 64; Resp 16; Pulse Ox 94% on 4 lpm NC; jl7 16:30 BP 166 / 93; Pulse 63; Resp 19; Pulse Ox 94% on 4 lpm NC; jl7 17:00 BP 168 / 100; Pulse 52; Resp 16; Pulse Ox 93% on 4 lpm NC; jl7 17:47 BP 174 / 87; Pulse 69; Resp 20 S; Pulse Ox 91% on 4 lpm NC; jl7 ED Course: 12:41 Patient arrived in ED. jl7 12:43 Kalia Hooks MD is Attending Physician. kdr 12:50 Missed attempt(s): 20 gauge in left antecubital area. Bleeding controlled, band aid dh3 applied, catheter tip intact. 12:55 Initial lab(s) drawn, by me, sent to lab. Inserted saline lock: 20 gauge in right jl7 antecubital area, using aseptic technique. Blood collected. 12:55 Patient has correct armband on for positive identification. Bed in low position. Call [facility] light in reach. Side rails up X2. desk monitor on. Pulse ox on. NIBP on. 12:59 Triage completed. jl7 13:02 Arm band placed on right wrist. jl7 13:06 EKG done, by technical product manager. reviewed by Kalia Hooks MD. at1 13:18 X-ray completed. Portable x-ray completed in exam room. Patient tolerated procedure jb2 well. 13:20 XRAY Chest (1 view) In Process Unspecified. EDMS 13:55 ammonia drawn by me and sent to lab. dh3 14:14 Glenn Blake, LIZABETH is Primary Nurse. jl7 15:27 CT Head Brain wo Cont In Process Unspecified. EDMS 15:[address] via stretcher. nj 15:29 CT Abd/Pelvis - Without Cont: No IV In Process Unspecified. EDMS 15:36 CT completed. Patient moved back from CT. nj 15:37 Thorax Wo Con In Process Unspecified. EDMS 17:15 Ryan Rojas DO is Hospitalizing Provider. kdr 18:08 No provider procedures requiring assistance completed. Patient admitted, IV remains in jl7 place. Administered Medications: 14:05 Drug: hydrALAZINE 10 mg Route: IV; Rate: calculated rate; Site: right antecubital; jl 15:00 Follow up: Response: No adverse reaction; Blood pressure is unchanged; IV Status: jl7 Completed infusion 14:14 Drug: Xopenex (3) 1.25 mg Route: Inhalation; jl7 15:49 Drug: hydrALAZINE 10 mg Route: IV; Rate: calculated rate; Site: left antecubital; [facility] 17:30 Follow up: Response: No adverse reaction; Blood pressure is lowered; IV Status: jl7 Completed infusion 16:46 Drug: D50W 50 ml Route: IVP; Site: right antecubital; [facility] 17:40 Follow up: Response: No adverse reaction; Blood sugar is elevated jl7 Point of Care Testing: Blood Glucose: 13:00 Blood Glucose: 82 mg/dL; jl7 16:40 Blood Glucose: 62 mg/dL; jl7 17:49 Blood Glucose: 128 mg/dL; dh3 Ranges: Outcome: 17:17 Decision to Hospitalize by Provider. kdr 18:08 Admitted to ICU accompanied by nurse, family with patient, via stretcher, room 7, with jl7 oxygen, on monitor, with chart, Report called to LIZABETH Alan 18:08 Condition: stable 18:08 Discharge instructions given to patient, Instructed on the need for admit, Demonstrated understanding of Pt unable to verbalize understanding 18:27 Patient left the ED. iw Signatures: Dispatcher [employer] EDMS Kalia Hooks MD MD kdr Buechter, Jesse jb2 Marie Fernandes RN RN iw Meenu castillo, clinical services director EKG Tat1 Rolf Pacheco Jahala, RN RN jl7 Melvi Lee 3 Corrections: (The following items were deleted from the chart) 14: 12:30 General: Appears distressed, jl7 jl7 14: 12:30 Pain: Unable to use pain scale. Patient is unresponsive. jl7 jl7 14: 12:30 Neuro: Level of Consciousness is obtunded, jl7 jl7 14: 12:30 Cardiovascular: Heart tones S1 S2 present Patient's skin is warm and dry. jl7 jl7 14: 12:30 Respiratory: Airway is patent Respiratory effort is even, labored, Respiratory jl7 pattern is regular, symmetrical, Breath sounds with crackles bilaterally. jl7 14: 12:30 Derm: Skin is dry, Skin is pale, Skin temperature is warm jl7 jl7
--- NOTE | 2018-03-20 17:18 | EDPHYS ---
Physician Documentation [facility] Name: Federico Martinez Age: 57 yrs Sex: Male : 1960 Arrival Date: 03/20/2018 Time: 12:41 Bed 3 Private MD: ED Physician Kalia Hooks HPI: 03/20 17:17 This 57 yrs old Male presents to ER via EMS with complaints of Altered Mental kdr Status. 17:17 The patient presents with confusion, decreased mental status, decreased responsiveness. kdr Onset: The symptoms/episode began/occurred gradually, at an unknown time. Possible causes: CVA or TIA, sepsis, unknown. Associated signs and symptoms:. Current symptoms: In the emergency department the patient's symptoms are unchanged from the initial presentation. Patient's baseline: Neuro: alert but confused, Motor: no deficits, Ambulation: walks with assist only, Speech: Not speaking, The patient has a previous history of. It is unknown whether or not the patient has had similar symptoms in the past. It is unknown whether or not the patient has recently seen a physician. Historical: - Allergies: 13:02 No Known Drug Allergies; jl7 - Home Meds: 17:17 alprazolam 1 mg Oral tab Tue, Elissa and Sat for anxiety [Active]; alprazolam 0.5 mg Oral jl7 tab 1 tab nightly for Anxiety [Active]; aspirin 81 mg Oral chew 1 tab once daily [Active]; - PMHx: 17:17 Bipolar disorder; Schizophrenia; CHF; COPD; Diabetes - IDDM; Dialysis; ESRD; jl7 - Immunization history:: Adult Immunizations unknown. - Social history:: Smoking status: unknown. - Ebola Screening: : No symptoms or risks identified at this time. - History obtained from: daughter, Reports "I can't remember what all he takes. I'll call the group home so they can send a list over.". ROS: 17:17 Constitutional: The patient is unable to communicate kdr 17:17 Unable to obtain ROS due to altered mental status, obtunded state. Exam: 17:17 Constitutional: This is a well developed, well nourished patient who is awake, alert, kdr and in no acute distress. Head/Face: Normocephalic, atraumatic. Eyes: Pupils equal round and reactive to light, extra-ocular motions intact. Lids and lashes normal. Conjunctiva and sclera are non-icteric and not injected. Cornea within normal limits. Periorbital areas with no swelling, redness, or edema. Neck: Trachea midline, no thyromegaly or masses palpated, and no cervical lymphadenopathy. Supple, full range of motion without nuchal rigidity, or vertebral point tenderness. No Meningismus. Chest/axilla: Normal chest wall appearance and motion. Nontender with no deformity. No lesions are appreciated. Cardiovascular: Regular rate and rhythm with a normal S1 and S2. No gallops, murmurs, or rubs. Normal PMI, no JVD. No pulse deficits. Abdomen/GI: Soft, mildly tender on LUQ, with normal bowel sounds. No distension or tympany. No guarding or rebound. Back: No spinal tenderness. No costovertebral tenderness. Full range of motion. Skin: Warm, dry with normal turgor. Normal color with no rashes, no lesions, and no evidence of cellulitis. MS/ Extremity: Pulses equal, no cyanosis. Neurovascular intact. Full, normal range of motion. 17:17 Neuro: Orientation: unable to test, Mentation: inappropriate for stated age, somnolent, unable to test, Memory: unable to test, Motor: moves all fours, Gait: not tested. 17:17 Psych: Unable to assess. Vital Signs: 13:02 BP 178 / 108; Pulse 81; Resp 20; Temp 100; Pulse Ox 98% on 4 lpm NC; jl7 13:30 BP 182 / 109; Pulse 73; Resp 18; Pulse Ox 100% on R/A; dh3 14:25 BP 182 / 107; Pulse 84; Resp 16; Pulse Ox 98% ; jl7 15:00 BP 181 / 102; Pulse 62; Resp 19; Pulse Ox 94% on 4 lpm NC; jl7 15:30 BP 180 / 104; Pulse 79; Resp 19; Pulse Ox 95% on 4 lpm NC; jl7 16:00 BP 189 / 103; Pulse 64; Resp 16; Pulse Ox 94% on 4 lpm NC; jl7 16:30 BP 166 / 93; Pulse 63; Resp 19; Pulse Ox 94% on 4 lpm NC; jl7 17:00 BP 168 / 100; Pulse 52; Resp 16; Pulse Ox 93% on 4 lpm NC; 7 17:47 BP 174 / 87; Pulse 69; Resp 20 S; Pulse Ox 91% on 4 lpm NC; jl7 MDM: 17:17 Patient medically screened. [facility] 17:26 Data reviewed: vital signs, nurses notes, lab test result(s), radiologic studies. [facility] Counseling: I had a detailed discussion with the patient and/or guardian regarding: the historical points, exam findings, and any diagnostic results supporting the discharge/admit diagnosis, lab results, radiology results. 03/20 12:43 Order name: Basic Metabolic Panel; Complete Time: 14:18 [facility] 03/20 16:28 Interpretation: Abnormal. [facility] 03/20 12:43 Order name: BNP; Complete Time: 14:18 [facility] 03/20 12:43 Order name: CBC with Diff; Complete Time: 14:18 [facility] 03/20 12:43 Order name: LFT's; Complete Time: 14:18 [facility] 03/20 12:44 Order name: Magnesium; Complete Time: 14:18 [facility] 03/20 12:44 Order name: PT-INR; Complete Time: 14:18 [facility] 03/20 12:44 Order name: Ptt, Activated; Complete Time: 14:18 [facility] 03/20 12:44 Order name: Troponin (emerg Dept Use Only); Complete Time: 14:18 [facility] 03/20 13:16 Order name: AMMONIA; Complete Time: 14:18 [facility] 03/20 13:16 Order name: ABG; Complete Time: 14:57 [facility] 03/20 13:24 Order name: CBC Smear Scan; Complete Time: 14:18 [facility] 03/20 17:04 Order name: CKMB Creatine Kinase MB [facility] 03/20 17:04 Order name: Creatine Phosphokinase [facility] 03/20 17:04 Order name: Troponin I [facility] 03/20 12:44 Order name: XRAY Chest (1 view); Complete Time: 14:18 [facility] 03/20 12:44 Order name: EKG; Complete Time: 12:44 [facility] 03/20 15:00 Order name: CT Head Brain wo Cont; Complete Time: 16:01 [facility] 03/20 15:00 Order name: CT Abd/Pelvis - Without Cont: No IV ; Complete Time: 16:01 [facility] 03/20 15:34 Order name: Thorax Wo Con; Complete Time: 16:01 [facility] 03/20 17:04 Order name: CONS Pharmacy Consult [facility] 03/20 17:04 Order name: CONS Physician Consult [facility] 03/20 17:04 Order name: CONS Physician Consult [facility] 03/20 17:04 Order name: Blood Culture [facility] 03/20 17:04 Order name: Chest Single View [facility] 03/20 17:04 Order name: Chest Single View [facility] 03/20 17:04 Order name: Chest Single View [facility] 03/20 12:44 Order name: Cardiac monitoring; Complete Time: 14: kdr 03/20 12:44 Order name: EKG - Nurse/Tech; Complete Time: 14: kdr 03/20 12:44 Order name: IV Saline Lock; Complete Time: 14: kdr 03/20 12:44 Order name: Labs collected and sent; Complete Time: 14: kdr 03/20 12:44 Order name: O2 Per Protocol; Complete Time: 14: kdr 03/20 12:44 Order name: O2 Sat Monitoring; Complete Time: 14: kdr 03/20 17:04 Order name: NPO [facility] Administered Medications: 14:05 Drug: hydrALAZINE 10 mg Route: IV; Rate: calculated rate; Site: right antecubital; 7 15:00 Follow up: Response: No adverse reaction; Blood pressure is unchanged; IV Status: jl7 Completed infusion 14:14 Drug: Xopenex (3) 1.25 mg Route: Inhalation; 7 15:49 Drug: hydrALAZINE 10 mg Route: IV; Rate: calculated rate; Site: left antecubital; 7 17:30 Follow up: Response: No adverse reaction; Blood pressure is lowered; IV Status: 7 Completed infusion 16:46 Drug: D50W 50 ml Route: IVP; Site: right antecubital; jl7 17:40 Follow up: Response: No adverse reaction; Blood sugar is elevated [facility] Point of Care Testing: Blood Glucose: 13:00 Blood Glucose: 82 mg/dL; jl7 16:40 Blood Glucose: 62 mg/dL; jl7 17:49 Blood Glucose: 128 mg/dL; dh3 Ranges: Critical Glucose Levels:Adult <50 mg/dl or >400 mg/dl <40 mg/dl or >180 mg/dl Disposition: 03/20/18 17:17 Hospitalization ordered by Ryan Rojas for Inpatient Admission. Preliminary diagnosis is Altered mental status, unspecified. - Bed requested for Intensive Care Unit. - Status is Inpatient Admission. iw - Condition is Serious. - Problem is an acute exacerbation. - Symptoms are unchanged. UTI on Admission? No Signatures: Dispatcher [employer] EDMS Kalia Hooks MD MD kdr Marie Fernandes RN RN iw Eileen Garcia Jahala RN RN jl7 Corrections: (The following items were deleted from the chart) 17:30 17:17 Hospitalization Ordered by Ryan Rojas DO for Inpatient Admission. Preliminary ag diagnosis is Altered mental status, unspecified. Bed requested for Intensive Care Unit. Status is Inpatient Admission. Condition is Serious. Problem is an acute exacerbation. Symptoms are unchanged. UTI on Admission? No. kdr 18:27 17:30 03/20/2018 17:17 Hospitalization Ordered by Ryan Rojas DO for Inpatient iw Admission. Preliminary diagnosis is Altered mental status, unspecified. Bed requested for Intensive Care Unit. Status is Inpatient Admission. Condition is Serious. Problem is an acute exacerbation. Symptoms are unchanged. UTI on Admission? No. ag
--- NOTE | 2018-03-20 17:26 | P.HP ---
Certification for Inpatient Patient admitted to: Inpatient With expected LOS: >2 Midnights Patient will require the following post-hospital care: Other Practitioner: I am a practitioner with admitting privileges, knowledge of patient current condition, hospital course, and medical plan of care. Services: Services provided to patient in accordance with Admission requirements found in Title 42 Section 412.3 of the Code of Federal Regulations Patient History Date of Service: 03/20/18 Primary Care Provider: Dr. George([facility]); Nephrology-Dr. Leavitt Reason for admission: Altered mental status History of Present Illness: 57-year-old male presented emergency room with altered mental status. Patient was brought in from [facility]. [facility] reports altered mental status changes. Blood sugar was obtained at the snf. Initial blood sugar around 50. Patient was given glucose. Recheck was around 80. Patient was brought in to the emergency room. Family at bedside. Family reports that the patient was in his normal state last week. Patient with multiple medical problems including end-stage renal disease, depression with anxiety, COPD, CAD, dementia, hypertension, diabetes, chronic pleural effusion, normal-pressure hydrocephalus. In the ER patient was evaluated. Initial blood pressure was elevated. The patient required oxygen. Blood gases showed a pH is 7.4, PCO2 of 36, PO2 of 67. White count 13.7, hemoglobin 8.0. Sodium 142, potassium 4.0, BUN of 40, creatinine 3.92 with a GFR 16. AST elevated at 116. ALT of 82. Troponin I also elevated at 1.57. BNP elevated at 7993. Ammonia level was normal. CT of the head showed no acute findings. Patient with history of normal-pressure hydrocephalus. CT abdomen unremarkable for acute changes. CT chest showed bilateral pleural effusions left greater than right. This was a change since the last visit. When I evaluated the patient in the ER, he was still in an altered state. Blood pressure slightly elevated. Patient had been given multiple doses of hydralazine. Patient did not appear in any respiratory distress. Recheck blood sugar at the time of my arrival was low. Patient given D50. D10W to be started. Allergies No Known Drug Allergies Allergy (Verified 02/09/18 01:19) Unknown No Known Allergies Allergy (Uncoded 02/09/18 01:19) Unknown Home medications list reviewed: Yes Home Medications: Albuterol Inhaler [Ventolin Inhaler*] 2 puff IH QID 02/09/18 Alprazolam [Xanax] 0.5 mg PO BEDTIME 02/09/18 Alprazolam [Xanax] 1 mg PO T,TH,S 02/09/18 Clonidine HCl [Catapres*] 0.3 mg PO TID 02/09/18 Fentanyl 25 mcg TD Q72H 02/09/18 Furosemide 40 mg PO BID 02/09/18 Gabapentin [Neurontin*] 100 mg PO BID 02/09/18 Hydrocodone Bit/Acetaminophen [Hydrocodon-Acetaminoph 7.5-325] 1 each PO Q6HP PRN 02/09/18 Insulin NPH Human [Novolin N (Humulin N)*] 7 units SQ BID 02/09/18 Ipratropium/Albuterol Sulfate [Iprat-Albut 0.5-3(2.5) mg/3 ml] 3 ml IH Q6HP PRN 02/09/18 Nifedipine [Nifedipine ER] 90 mg PO Q12H 02/09/18 Nitroglycerin 0.4 mg SL Q5MX3 PRN 02/09/18 Vit D3/Folic Acid/B2/B6/B12 [Folgard Tablet] 1 each PO DAILY 02/09/18 Atorvastatin Calcium [Lipitor*] 1 tab PO BEDTIME 02/10/18 Calcitriol [Rocaltrol] 1 cap PO DAILY 02/10/18 Carvedilol [Coreg*] 25 mg PO BID 02/10/18 Donepezil HCl [Aricept] 10 mg PO BEDTIME 02/10/18 Doxazosin Mesylate 4 mg PO Q12HR 02/10/18 Folic Acid 1 mg PO DAILY 02/10/18 Losartan Potassium [Cozaar*] 50 mg PO BID 02/10/18 Ondansetron HCl 4 mg PO Q6HR PRN 02/10/18 Pramipexole Di-HCl [Pramipexole Dihydrochloride] 1 tab PO BEDTIME 02/10/18 Ranolazine [Ranexa] 500 mg PO BID 02/10/18 Venlafaxine HCl [Venlafaxine HCl ER] 150 mg PO BID 02/10/18 Ziprasidone HCl [Geodon*] 40 mg PO BID 02/10/18 - Past Medical/Surgical History Diabetic: Yes -: DM-Type 2 -: HTN -: Hyperlipidemia -: Dementia, Parkinsons disease -: GERD -: ESRD, Nephrology-Dr. Leavitt, Dialysis-,Sun -: Restless leg syndrome -: COPD -: Depression, insomnia -: Anemia of chronic disease -: Normal-pressure hydrocephalus -: CAD, PUD -: Cardiac stents. -: Numerous back surgeries -: Congestive heart failure Psychosocial/ Personal History: He currently lives at the snf - Family History Mother -: Heart disease, Hypertension Father -: Heart disease - Social History Smoking Status: Unknown if ever smoked Alcohol use: No CD- Drugs: No Caffeine use: Yes Place of Residence: [place] Term Review of Systems is unable to be obtained Physical Examination - Physical Exam General: Other (Patient with altered state. Patient staring with no response to voice. Patient did not appear in any respiratory distress.) HEENT: Atraumatic, Mucous membr. moist/pink Neck: Supple Respiratory: Diminished (Bilateral), Crackles/rales (Bilateral) Cardiovascular: Normal pulses, Regular rate/rhythm Gastrointestinal: Normal bowel sounds, Soft and benign, Non-distended, No tenderness, No masses, No rebound, No guarding Musculoskeletal: No erythema, No tenderness, No warmth Integumentary: No tenderness/swelling, No erythema, No warmth, No cyanosis Neurological: Other (Patient with altered mental state.) - Studies Laboratory Data (last 24 hrs) 03/20/18 12:52: PT 13.9 H, INR 1.18, APTT 36.5 03/20/18 12:52: WBC 13.7 H, Hgb 8.0 L, Hct 25.6 L, Plt Count 114 L 03/20/18 12:52: B-Natriuretic Peptide 7993 H 03/20/18 12:52: Sodium 142, Potassium 4.0, BUN 40 H, Creatinine 3.92 H, Glucose 76, Magnesium 2.2, Total Bilirubin 0.6, AST 110 H, ALT 82 H, Alkaline Phosphatase 109 Assessment and Plan - Problems (Diagnosis) (1) Encephalopathy Current Visit: Yes Status: Acute Plan: Encephalopathy likely multifactorial. Patient with hypoglycemia. Patient will be started on D10 W to maintain blood sugar control. Antibiotics started for possible infection. Will cover for aspiration pneumonia. Patient with bilateral pleural effusions and volume overload. Case discussed with nephrology. Patient will receive dialysis today. Blood cultures obtained. Will monitor chest x-ray. Patient also with elevated troponin. Cardiology will be consulted to further evaluate. Will consult pulmonology to evaluate pleural effusions. Will transfer patient to ICU. Advanced directives address with medical power of agile business analyst. Patient is DNR. (2) Hypoglycemia associated with diabetes Current Visit: Yes Status: Acute Plan: Will start D10W to maintain BS. Will need to check with retirement on when insulin was last given. (3) Pleural effusion Current Visit: Yes Status: Acute Plan: Bilateral pleural effusions noted. Left greater than right. This appears to be a change from previous evaluation. Patient will get dialysis. Will consult pulmonology to further evaluate. Will maintain sats above 90%. (4) Pulmonary edema Current Visit: Yes Status: Acute Plan: Patient will receive dialysis. Qualifiers: Chronicity: acute Qualified Code(s): J81.0 - Acute pulmonary edema (5) Pneumonia Onset Date: 04/18/17 Current Visit: No Status: Suspected Plan: Will cover for aspiration pneumonia. Blood cultures obtained. Qualifiers: Pneumonia type: aspiration pneumonia Aspiration pneumonia type: unspecified Laterality: right Lung location: lower lobe of lung Qualified Code(s): J69.0 - Pneumonitis due to inhalation of food and vomit (6) Troponin level elevated Current Visit: No Status: Acute Plan: Troponin elevated. Will monitor cardiac enzymes. Will provide aspirin. Cardiology consulted. Will monitor closely. (7) Anemia Onset Date: 12/24/17 Current Visit: No Status: Chronic Plan: Patient with anemia of chronic disease. Will monitor closely. Qualifiers: Anemia type: due to chronic kidney disease Chronic kidney disease stage: on chronic dialysis Qualified Code(s): N18.6 - End stage renal disease; D63.1 - Anemia in chronic kidney disease; Z99.2 - Dependence on renal dialysis (8) Bipolar disorder Onset Date: 05/04/17 Current Visit: No Status: Chronic Plan: Will review home medications from snf. Qualifiers: Active/Remission status: remission status unspecified Qualified Code(s): F31.9 - Bipolar disorder, unspecified (9) CAD (coronary artery disease) Onset Date: 12/24/17 Current Visit: No Status: Chronic Plan: Will monitor cardiac enzymes. Await recommendations from cardiology. Qualifiers: Coronary Disease-Associated Artery/Lesion type: [place] artery [place] vs. transplanted heart: [place] heart Associated angina: without angina Qualified Code(s): I25.10 - Atherosclerotic heart disease of [place] coronary artery without angina pectoris (10) Chronic pain Onset Date: 01/10/17 Current Visit: No Status: Chronic Plan: Will hold pain medication at this time. Patient with chronic pain Qualifiers: (11) Diabetes mellitus Onset Date: 05/04/17 Current Visit: No Status: Chronic Plan: Patient with hypoglycemia. Will continue with above plan of care. Qualifiers: Diabetes mellitus type: type 2 Diabetes mellitus alf insulin use: with alf use Diabetes mellitus complication status: with hypoglycemia Diabetes mellitus complication detail: with coma Qualified Code(s): E11.641 - Type 2 diabetes mellitus with hypoglycemia with coma; Z79.4 - care home (current ) use of insulin (12) ESRD (end stage renal disease) Onset Date: 02/14/18 Current Visit: No Status: Chronic Plan: Patient to get dialysis emergently today. Nephrology consulted and is aware of the patient. (13) GERD (gastroesophageal reflux disease) Onset Date: 12/24/17 Current Visit: No Status: Chronic Plan: Will provide PPI Qualifiers: Esophagitis presence: with esophagitis Qualified Code(s): K21.0 - Gastro- esophageal reflux disease with esophagitis (14) Hypertension Onset Date: 12/24/17 Current Visit: No Status: Chronic Plan: Will provide medication as needed Qualifiers: Hypertension type: essential hypertension Qualified Code(s): I10 - Essential (primary) hypertension (15) Normal pressure hydrocephalus Onset Date: 04/18/17 Current Visit: No Status: Chronic Plan: This appears stable from previous (16) Altered mental status Onset Date: 01/10/17 Current Visit: No Status: Acute Plan: Continue as above. Qualifiers: Altered mental status type: unspecified Qualified Code(s): R41.82 - Altered mental status, unspecified Discharge Plan: Long Term Plan to discharge in: Greater than 2 days - Advance Directives Does patient have a Living Will: Yes Does patient have a Durable POA for Healthcare: Yes - Code Status/Comfort Care Code Status Assessed: Yes (This was discussed in detail with medical power of agile business analyst. Patient DNR) Time Spent Managing Pts Care (In Minutes): 65
[2018-03-20] MEDS ORDERED: VANCOMYCIN/NS 1 gm 1 GM/250 ML BAG IV SCH (18:00)
[2018-03-20] MEDS ORDERED: NA CHLORIDE 0.9% 1,000 ML IV PRN (18:19)
[2018-03-20] MEDS ORDERED: MANNITOL 25% 12.5 GM/50 ML VIAL IV PRN (18:19)
[2018-03-20] MEDS ORDERED: ALBUMIN HUMAN 25% 50 ML IV SCH (19:00)
[2018-03-20] MEDS: ARFORMOTEROL TARTRATE 15 MCG/2 ML VIAL.NEB NEB SCH (19:54)
--- NOTE | 2018-03-20 20:52 | CON ---
History Of Present Illness: Mr. Martinez is a hemodialysis patient, who lives in a longterm. He is out of hospital and now an in-hospital do not resuscitate order. He is brought to the emergency cipriano today because of altered mental status. He has been in our hospital. He has not been intubated an d do not resuscitate order continues. Mr. Martinez in the past had coronary heart disease. We did a ca rdiac cath on him in November of this year. At that time, we found that he had a totally occluded ri ght coronary. There was normal collateral flow from the left. The left coronary tree was free of an y significant disease. There were some lesions up to 50% in the middle to distal portions. There wa s diffuse coronary calcification. No intervention was done. No intervention was recommended. He costa d an echocardiogram about the same time showing that he had a normal ejection fraction, wall motion w as normal. There was aortic sclerosis without stenosis. The patient's outpatient medications have b een actually not listed. I do not have a list of his medications. One of the things noted was he costa s had some moderately low blood sugars, although the lowest one that we have in the hospital itself i s 62. We think it may have been lower than that at some point. Physical Examination: General: The patient is obtunded. He is not intubated. HEENT: Pupils are reactive. Lungs: Revealed bilateral breath sounds are about equal. There may be some rales on both sides. Heart: Reveals a regular rate and rhythm. Abdomen: Soft. Extremities: Reveal muscle wasting, mild edema. Distal pulses are not palpable. Laboratory Data: The patient's troponin is elevated at 1.57. Impression: Mr. Martinez may have occluded some kind of a small blood vessel, it is not a massive myoca rdial infarction. His EKG certainly would not show that. I doubt if this is the real cause of his u nderlying altered mental status that would seem to be either infection or low blood sugars. I am not certain what the status of his brain function will be now that he has had this insult and also it co uld be a stroke. He is not a candidate for an acute coronary intervention or another cardiac cath. He is do not resuscitate. The role of Cardiology will be supportive, not interventional. DAVID/BG Voice ID: [id number] Report ID: [id number]
[2018-03-20] MEDS: INSULIN -REGULAR HUMAN 50 UNIT/0.5 ML ML SQ SCH (21:00)
[2018-03-20] MEDS: PIPER/TAZO/NS 3.375gm 3.375 GM/100 ML BAG IVPB SCH (21:15)
[2018-03-20] MEDS: ENOXAPARIN 30 MG/0.3 ML SQ SCH (21:15)
[2018-03-20] MEDS: D50W 25 GM/50 ML SYRINGE IV PRN (23:16)
[2018-03-20 23:34] LABS: CKMB Creatine Kinase MB 17.4 ng/ml (0.3-4.0)
[2018-03-20 23:43] LABS: Potassium 3.6 mEq/L (3.6-5.0)
[2018-03-21] MEDS: NITROGLYCERIN 1 GM PKT TD SCH ×5 (00:11→23:40)
[2018-03-21] MEDS: D50W 25 GM/50 ML SYRINGE IV PRN ×2 (01:33→06:04)
[2018-03-21 05:25] LABS: Absolute Lymphocytes (CBC) 0.8 K/uL (0.7-4.9); Absolute Monocytes 1.5 K/uL (0.1-1.3); Absolute Neutrophil 12.3 K/uL (1.8-8.0); Basophils % 0.6 % (0-1.3); Eosinophils % 0.2 % (0-4.4); Hematocrit 25.4 % (39.6-49.0); Lymphocytes % 5.5 % (15.3-44.8); MCH 26.4 pg (27.0-35.0); MCV 82.3 fL (80-100); MPV 9.2 fL (7.6-11.3); Monocytes % 9.9 % (3.3-12.3); RBC Red Blood Cell Count 3.08 M/uL (4.33-5.43)
[2018-03-21 05:45] LABS: Albumin 3.2 g/dL (3.2-5.5); Bilirubin Total 0.8 mg/dL (0.3-1.2); Magnesium 1.9 mg/dL (1.8-2.5); Potassium 3.6 mEq/L (3.6-5.0); Protein, Total 6.8 g/dL (6.0-8.3)
[2018-03-21] MEDS: INSULIN -REGULAR HUMAN 50 UNIT/0.5 ML ML SQ SCH ×4 (07:17→20:07)
--- NOTE | 2018-03-21 07:32 | RAD REPORT ---
EXAM DESCRIPTION: Richelle Single View03/21/2018 6:56 am CLINICAL HISTORY: Shortness of breath COMPARISON: March 20 FINDINGS: Allowing for differences in technique no significant change has occurred in the bilateral pleural effusions. Left basilar atelectasis appears to have progressed. Mild additional lung opacities are unchanged. The heart remains enlarged. A central venous catheter remains in place IMPRESSION: Progression in the left basilar atelectasis. No additional change
[2018-03-21] MEDS: ARFORMOTEROL TARTRATE 15 MCG/2 ML VIAL.NEB NEB SCH ×2 (07:43→19:50)
[2018-03-21] MEDS ORDERED: DEXAMETHASONE 4 MG/ML VIAL IV ONE (08:04)
--- NOTE | 2018-03-21 08:05 | P.CNS ---
Date of Consult: 03/21/18 Primary Care Provider: Dr. George([facility]); Nephrology-Dr. Leavitt Chief Complaint: Altered mental status, pleural effusion History of Present Illness: Patient is 57 years of age admitted with altered mental status hypoglycemia a [facility] apparently at his baseline he is alert responsive cooperative currently he is unresponsive hemodynamically stable wing all his extremities patient ambulates with assist, end-stage renal disease on dialysis had episodes of V-tach code status DNR Allergies No Known Drug Allergies Allergy (Verified 02/09/18 01:19) Unknown No Known Allergies Allergy (Uncoded 02/09/18 01:19) Unknown Home Medications: Albuterol Inhaler [Ventolin Inhaler*] 1 puff IH QID 02/09/18 Alprazolam [Xanax] 0.5 mg PO BEDTIME 02/09/18 Alprazolam [Xanax] 1 mg PO T,TH,S 02/09/18 Clonidine HCl [Catapres*] 0.3 mg PO TID 02/09/18 Fentanyl 25 mcg TD Q72H 02/09/18 Furosemide 40 mg PO BID 02/09/18 Gabapentin [Neurontin*] 100 mg PO BID 02/09/18 Hydrocodone Bit/Acetaminophen [Hydrocodon-Acetaminoph 7.5-325] 1 each PO Q6HP PRN 02/09/18 Insulin NPH Human [Novolin N (Humulin N)*] 7 units SQ BID 02/09/18 Ipratropium/Albuterol Sulfate [Iprat-Albut 0.5-3(2.5) mg/3 ml] 3 ml IH Q6HP PRN 02/09/18 Nifedipine [Nifedipine ER] 90 mg PO Q12H 02/09/18 Nitroglycerin 0.4 mg SL Q5MX3 PRN 02/09/18 Vit D3/Folic Acid/B2/B6/B12 [Folgard Tablet] 1 each PO DAILY 02/09/18 Atorvastatin Calcium [Lipitor*] 1 tab PO BEDTIME 02/10/18 Calcitriol [Rocaltrol] 1 cap PO DAILY 02/10/18 Carvedilol [Coreg*] 25 mg PO BID 02/10/18 Donepezil HCl [Aricept] 10 mg PO BEDTIME 02/10/18 Doxazosin Mesylate 4 mg PO Q12HR 02/10/18 Folic Acid 1 mg PO DAILY 02/10/18 Losartan Potassium [Cozaar*] 50 mg PO BID 02/10/18 Ondansetron HCl 4 mg PO Q6HR PRN 02/10/18 Pramipexole Di-HCl [Pramipexole Dihydrochloride] 1 tab PO BEDTIME 02/10/18 Ranolazine [Ranexa] 500 mg PO BID 02/10/18 Venlafaxine HCl [Venlafaxine HCl ER] 150 mg PO BID 02/10/18 Alprazolam [Xanax] 0.5 mg PO Q6H PRN 03/20/18 Aspirin Chewable [Aspirin Chewable*] 81 mg PO DAILY 03/20/18 Glucagon HCl 1 mg IM PRN PRN 03/20/18 Pantoprazole [Protonix Tab*] 40 mg PO DAILY 03/20/18 - Past Medical/Surgical History Diabetic: Yes -: DM-Type 2 -: HTN -: Hyperlipidemia -: Dementia, Parkinsons disease -: GERD -: ESRD, Nephrology-Dr. Leavitt, Dialysis-,Sat -: Restless leg syndrome -: COPD -: Depression, insomnia -: Anemia of chronic disease -: Normal-pressure hydrocephalus -: CAD, PUD -: Cardiac stents. -: Numerous back surgeries -: Congestive heart failure Psychosocial/ Personal History: [facility] - Family History Mother Medical History: Heart disease, Hypertension Father Medical History: Heart disease - Social History Smoking Status: Unknown if ever smoked Alcohol use: No CD- Drugs: No Caffeine use: Yes Place of Residence: [facility] Review of Systems is unable to be obtained Physical Examination Temp Pulse Resp BP Pulse Ox 98.2 F 77 28 H 187/96 H 94 03/21/18 04:00 03/21/18 07:00 03/21/18 07:00 03/21/18 07:00 03/21/18 07:00 General: Unresponsive HEENT: Atraumatic Neck: Supple Respiratory: Clear to auscultation bilaterally, Diminished (Diminished air entry bilaterally) Cardiovascular: No edema, Normal S1 S2 Gastrointestinal: Normal bowel sounds, Soft and benign, Non-distended Laboratory Data (last 24 hrs) 03/20/18 12:52: PT 13.9 H, INR 1.18, APTT 36.5 03/20/18 12:52: WBC 13.7 H, Hgb 8.0 L, Hct 25.6 L, Plt Count 114 L 03/20/18 12:52: B-Natriuretic Peptide 7993 H 03/20/18 12:52: Sodium 142, Potassium 4.0, BUN 40 H, Creatinine 3.92 H, Glucose 76, Magnesium 2.2, Total Bilirubin 0.6, AST 110 H, ALT 82 H, Alkaline Phosphatase 109 - Problems (1) Altered mental status Onset Date: 03/21/18 Current Visit: Yes Status: Acute Plan: Patient is 57 years of age and stage renal disease admitted with altered mental status hypoglycemia he is unresponsive patient is also mildly hypoxic white count is elevated chest CT scan chest x-ray shows bilateral pleural effusion left worse than the right CT scans reviewed apart from degenerative changes in his spine no significant finding patient has a narcotic patch which needs to be removed patient is persistently hypoglycemic low doses of NPH I have ordered a serum cortisol level thyroid function tests cultures pending continue with broad -spectrum antibiotics possible sepsis patient's blood pressure is little elevated continue to monitor patient has bilateral pleural effusions most likely from his underlying renal failure right now thoracentesis would not be indicated continue monitor Qualifiers: Altered mental status type: somnolence Qualified Code(s): R40.0 - Somnolence
[2018-03-21] MEDS: ASPIRIN EC 81 MG TAB PO SCH (08:20)
[2018-03-21] MEDS: PANTOPRAZOLE 40 MG INJ IVP SCH (08:20)
[2018-03-21] MEDS: SODIUM CHLORIDE 0.9% 10ML INJ IV PRN (08:20)
[2018-03-21] MEDS: PIPER/TAZO/NS 3.375gm 3.375 GM/100 ML BAG IVPB SCH ×2 (08:20→20:07)
[2018-03-21] MEDS ORDERED: VANCOMYCIN 1 GM in NA CHLORIDE 0.9% 500 ML IVPB SCH (09:00)
[2018-03-21] MEDS: DEXTROSE 10%-WATER 500 ML IV SCH (09:05)
--- NOTE | 2018-03-21 10:54 | ECHO ---
HEIGHT: 5 ft 5 in WEIGHT: 171 lb 7 oz DATE OF STUDY: 03/21/[address]: Rafy Ascencio MD 2-DIMENSIONAL: YES M.MODE: YES DOPPLER: YES COLOR FLOW: YES TDS: NO PORTABLE: YES DEFINITY: NO BUBBLE STUDY: NO DIAGNOSIS: CORONARY ARTERY DISEASE CARDIAC HISTORY: CATHERIZATION: NO SURGERY: NO PROSTHETIC VALVE: NO PACEMAKER: NO MEASUREMENTS (cm) DIASTOLIC (NORMALS) SYSTOLIC (NORMALS) IVSd 1.4 (0.6-1.2) LA Diam 5.1 (1.9-4.0) LVEF 49% LVIDd 6.2 (3.5-5.7) LVIDs 4.6 (2.0-3.5) %FS 25% LVPWd 1.4 (0.6-1.2) Ao Diam 3.4 (2.0-3.7) 2 DIMENSIONAL ASSESSMENT: RIGHT ATRIUM: NORMAL LEFT ATRIUM: DILATED RIGHT VENTRICLE: NORMAL LEFT VENTRICLE: DILATED TRICUSPID VALVE: NORMAL MITRAL VALVE: MITRAL ANNULAR CALCIFICATION PULMONIC VALVE: NORMAL AORTIC VALVE: SCLEROSIS PERICARDIAL EFFUSION: NONE AORTIC ROOT: NORMAL LEFT VENTRICULAR WALL MOTION: MILD GLOBAL HYPOKINESIS. DOPPLER/COLOR FLOW: MILD TRICUSPID REGURGITATION. NORMAL RIGHT VENTRICULAR SYSTOLIC PRESSURE. COMMENTS: MILD TRICUSPID REGURGITATION. NORMAL RIGHT VENTRICULAR SYSTOLIC PRESSURE. MITRAL ANNULAR CALCIFICATION. AORTIC SCLEROSIS WITH NO STENOSIS. LEFT VENTRICULAR DILATATION WITH MILD GLOBAL HYPOKINESIS. TECHNOLOGIST: Olga SOLORZANO
[2018-03-21] MEDS ORDERED: BISACODYL 10 MG RECTAL SUPP PR ONE (12:30)
[2018-03-21] MEDS ORDERED: METOPROLOL TARTRATE 5 MG/5 ML INJ IV STA (12:32)
[2018-03-21] MEDS: ENALAPRILAT 1.25 MG/ML VIAL IV SCH ×2 (13:49→18:16)
--- NOTE | 2018-03-21 15:22 | CON ---
Date of Consultation: 03/21/[address] Rojas' service on 03/20/2018 I saw the patient on 03/21/2018. Reason For Consultation: Elevated troponin. History Of Present Illness: Mr. Martinez 57-year-old male, who has many medical problems. He is do not resuscitate. He has a history of end-stage renal disease, on hemodialysis. He has a history of bip olar disorder, schizophrenia, congestive heart failure, COPD, diabetes. He came in with altered ment al status. Apparently, he has a history of CAD as well. Troponin was elevated. BNP was 7993, creat inine is 3.92. Troponin was 1.57, hemoglobin is 8.0. White count is 8.7. He had a blood pressure o f 190/100. He was very confused, somnolent, and lethargic when he was seen. No chest pain reported. Past Medical History: As stated above. Allergies: NONE. Review of Systems: Negative. Social History: Positive for DNR. Family History: Noncontributory. Medications: Include Ranexa, Namenda, Xanax, . He is also on Lasix, Procardia, insulin, c lonidine, inhalers, Lipitor, Coreg, and aspirin. Physical Examination: Vital Signs: Were noted. He was in sinus rhythm. Blood pressure was 190/100. HEENT: Negative. Neck: Supple with no bruit, lymphadenopathy, or thyromegaly. Chest: Clear to auscultation and percussion. Cardiac: Revealed a regular rhythm and rate with an S4 gallops. No murmurs or rubs. Abdomen: Benign. Extremities: Revealed no clubbing, cyanosis. Trace edema. Diagnostic Data: stated earlier. Chest x-ray and CT scan revealed large bilateral pleura l effusion. CT of the abdomen was negative. CT of his head showed possible normal pressure hydrocep halus. EKG shows left bundle-branch block. Impression And Plan: 1.Altered mental status, poorly controlled hypertension, possibly secondary to hypertensive encephal opathy combined with renal failure as well as polypharmacy. I doubt that this is a cardiac issue. 2.Coronary artery disease that is stable. I think the elevated troponin and BNP are secondary to hi s renal failure combined with anemia. 3.Bipolar disorder. 4.History of end-stage renal disease, on hemodialysis. 5.Schizophrenia. 6.History of congestive heart failure. Echocardiogram is pending. 7.History of chronic obstructive pulmonary disease. 8.Diabetes. 9.Large pleural effusion. 10.Left bundle-branch block. 11.Elevated white count. 12.Anemia. It is certainly possible that Mr. Martinez as stated earlier has hypertensive encephalopathy, renal fail ure , possible cerebrovascular accident and possibly to be septic. Again, his polypharmacy is considering his renal failure may have something to do with he feels. Nevertheless, I agree with echocardiogram. We will see what that shows. No other cardiac recommendations at this point. He i s certainly not a candidate for coronary intervention. The patient is do not resuscitate. TOYA/BG Voice ID: [id number] Report ID: [id number]
[2018-03-21] MEDS: D5W 1,000 ML IV SCH (16:31)
[2018-03-21] MEDS: ENOXAPARIN 30 MG/0.3 ML SQ SCH (16:32)
[2018-03-21] MEDS ORDERED: ENOXAPARIN 30 MG/0.3 ML SQ SCH (17:00)
--- NOTE | 2018-03-21 17:41 | P.PN ---
Subjective Date of Service: 03/21/18 Primary Care Provider: Dr. George(jail); Nephrology-Dr. Leavitt Chief Complaint: Altered mental status, pleural effusion Pt seen and examined at bedside. Chart Reviewed. Case DW with Cardiology and Nephrology. Pt is currently Altered and has been hallucinating. [facility] had stopped pt's Geodon and Latuda 1 month ago as the insurance stop paying for the medication. Review of Systems General: As per HPI Physical Examination - Vital Signs Temperature: 97.1 F Blood Pressure: 197/98 Pulse: 63 Respirations: 21 Pulse Ox (%): 97 - Physical Exam General: In no apparent distress, Confused HEENT: Atraumatic, PERRLA, EOMI Neck: Supple, JVD not distended Respiratory: Normal air movement, Crackles/rales Cardiovascular: Regular rate/rhythm, Normal S1 S2, Edema Gastrointestinal: Normal bowel sounds, Soft and benign, Non-distended, Tenderness Musculoskeletal: No tenderness Integumentary: No rashes Neurological: Normal tone, Normal affect, Abnormal speech Lymphatics: No axilla or inguinal lymphadenopathy - Studies Medications List Reviewed: Yes Assessment & Plan - Problems (Diagnosis) (1) Altered mental status Onset Date: 03/21/18 Current Visit: Yes Status: Acute Plan: Most likely 2.2 to hypoglycemia vs Worsening of Bipolar due to no treatment -Switched to D5W now at 30ml.Hr -BS between 100-150 -Started on Geodon 10mg IM q2h PRN Qualifiers: Altered mental status type: disorientation Qualified Code(s): R41.0 - Disorientation, unspecified (2) Hypoglycemia associated with diabetes Onset Date: 03/21/18 Current Visit: Yes Status: Acute Plan: See # 1 (3) Pulmonary edema Onset Date: 03/21/18 Current Visit: Yes Status: Acute Plan: On HD -Will get Dialysis bree for volume overload Qualifiers: Chronicity: acute Qualified Code(s): J81.0 - Acute pulmonary edema (4) COPD (chronic obstructive pulmonary disease) Current Visit: No Status: Chronic Qualifiers: COPD type: unspecified COPD Qualified Code(s): J44.9 - Chronic obstructive pulmonary disease, unspecified (5) Bipolar disorder Onset Date: 05/04/17 Current Visit: No Status: Chronic Qualifiers: Active/Remission status: remission status unspecified Qualified Code(s): F31.9 - Bipolar disorder, unspecified (6) CAD (coronary artery disease) Onset Date: 12/24/17 Current Visit: No Status: Chronic Qualifiers: Coronary Disease-Associated Artery/Lesion type: [place] artery [place] vs. transplanted heart: [place] heart Associated angina: without angina Qualified Code(s): I25.10 - Atherosclerotic heart disease of [place] coronary artery without angina pectoris (7) CHF (congestive heart failure) Onset Date: 12/24/17 Current Visit: No Status: Chronic Qualifiers: Heart failure type: unspecified Heart failure chronicity: chronic Qualified Code(s): I50.9 - Heart failure, unspecified (8) COPD (chronic obstructive pulmonary disease) Onset Date: 12/24/17 Current Visit: No Status: Chronic Qualifiers: COPD type: unspecified COPD Qualified Code(s): J44.9 - Chronic obstructive pulmonary disease, unspecified (9) Diabetes Onset Date: 12/24/17 Current Visit: No Status: Chronic Qualifiers: Diabetes mellitus type: type 2 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
[2018-03-21] MEDS ORDERED: WATER FOR INJ,STERILE 10 ML IM PRN (18:26)
[2018-03-21] MEDS ORDERED: ZIPRASIDONE MESYLA 20 MG/VIAL IM PRN (18:26)
[2018-03-21] MEDS: HYDRALAZINE HCL 20 MG/ML VIAL IV PRN (23:39)
[2018-03-22] MEDS: ENALAPRILAT 1.25 MG/ML VIAL IV SCH ×4 (02:29→19:26)
[2018-03-22 05:18] LABS: Absolute Lymphocytes (CBC) 0.7 K/uL (0.7-4.9); Absolute Monocytes 1.6 K/uL (0.1-1.3); Absolute Neutrophil 14.2 K/uL (1.8-8.0); Basophils % 0.4 % (0-1.3); Hematocrit 27.3 % (39.6-49.0); Lymphocytes % 4.4 % (15.3-44.8); MCH 26.2 pg (27.0-35.0); MCV 82.3 fL (80-100); MPV 9.1 fL (7.6-11.3); Monocytes % 9.8 % (3.3-12.3); RBC Red Blood Cell Count 3.32 M/uL (4.33-5.43)
[2018-03-22 05:38] LABS: Bilirubin Total 1.1 mg/dL (0.3-1.2); Potassium 4.3 mEq/L (3.6-5.0); Protein, Total 6.3 g/dL (6.0-8.3)
[2018-03-22] MEDS: NITROGLYCERIN 1 GM PKT TD SCH ×3 (06:06→17:01)
[2018-03-22 06:50] LABS: Platelet Estimate ADEQ
[2018-03-22 06:51] LABS: Anisocytosis 1+; Blood Morphology Comment NOTED (NOT SEEN); Polychromasia 1+
--- NOTE | 2018-03-22 07:12 | RAD REPORT ---
EXAM DESCRIPTION: RAD - Chest Single View - 03/22/2018 6:58 am CLINICAL HISTORY: Pulmonary edema, pleural effusion COMPARISON: March 21 TECHNIQUE: AP portable chest image was obtained 0624 hours . FINDINGS: Interstitial and patchy alveolar opacification is present similar to fractionally improved in the lower right lung field. Left pleural effusion and atelectasis are still present. Vasculature and lung markings on the left are improved as well. Trachea is midline. Dialysis catheter remains in place. Heart size is upper normal. No pneumothorax. No gross bony abnormality seen. No acute aortic f indings suspected. IMPRESSION: The CHF/volume overload pattern has improved but not resolved. Left pleural effusion is present similar or slightly improved from prior imaging.
[2018-03-22] MEDS: INSULIN -REGULAR HUMAN 50 UNIT/0.5 ML ML SQ SCH ×4 (07:20→21:00)
[2018-03-22] MEDS: ASPIRIN EC 81 MG TAB PO SCH (07:20)
[2018-03-22] MEDS: PIPER/TAZO/NS 3.375gm 3.375 GM/100 ML BAG IVPB SCH (08:05)
[2018-03-22] MEDS: PANTOPRAZOLE 40 MG INJ IVP SCH (08:05)
[2018-03-22] MEDS: ARFORMOTEROL TARTRATE 15 MCG/2 ML VIAL.NEB NEB SCH ×2 (08:06→20:00)
[2018-03-22] MEDS ORDERED: WATER FOR INJ,STERILE 10 ML IM PRN ×2 (10:48→14:09)
[2018-03-22] MEDS: EPOETIN ALFA 10,000 UNIT/ML VIAL IV SCH (11:27)
--- NOTE | 2018-03-22 11:38 | P.PN ---
Subjective Date of Service: 03/22/18 Primary Care Provider: Dr. George(jail); Nephrology-Dr. Leavitt Chief Complaint: Altered mental status, pleural effusion Pt seen and examined at bedside. Chart Reviewed. Case DW with Cardiology and Nephrology. Pt is currently Altered but no hallucination. NH had stopped pt's Geodon and Latuda 1 month ago as the insurance stop paying for the medication. Review of Systems General: As per HPI Physical Examination - Vital Signs Temperature: 97.6 F Blood Pressure: 177/110 Pulse: 67 Respirations: 19 Pulse Ox (%): 99 - Physical Exam General: Alert, In no apparent distress, Oriented x1, Confused HEENT: Atraumatic Neck: Supple, JVD not distended Respiratory: Clear to auscultation bilaterally, Normal air movement Cardiovascular: Regular rate/rhythm, Normal S1 S2 Gastrointestinal: Normal bowel sounds, No tenderness Musculoskeletal: No tenderness Integumentary: No rashes Neurological: Normal tone, Normal affect, Abnormal speech Lymphatics: No axilla or inguinal lymphadenopathy - Studies Medications List Reviewed: Yes Assessment & Plan - Problems (Diagnosis) (1) Altered mental status Onset Date: 03/21/18 Current Visit: Yes Status: Acute Plan: Most likely 2.2 to hypoglycemia vs Worsening of Bipolar due to no treatment -Hypoglecemia is now resolved and on D5W at 30ml.hr -Unable to [place] at this time. Speech Consulted. -Started on Geodon 10mg IM at bedtime Qualifiers: Altered mental status type: disorientation Qualified Code(s): R41.0 - Disorientation, unspecified (2) Hypoglycemia associated with diabetes Onset Date: 03/21/18 Current Visit: Yes Status: Resolved Plan: See # 1 (3) Pulmonary edema Onset Date: 03/21/18 Current Visit: Yes Status: Acute Plan: Most likely 2.2 to Volume Overload. Improving today -Will get Dialysis for volume overload. -Nephrology Consulted. Appreciate [facility] Qualifiers: Chronicity: acute Qualified Code(s): J81.0 - Acute pulmonary edema (4) COPD (chronic obstructive pulmonary disease) Current Visit: No Status: Chronic Qualifiers: COPD type: unspecified COPD Qualified Code(s): J44.9 - Chronic obstructive pulmonary disease, unspecified (5) Bipolar disorder Onset Date: 05/04/17 Current Visit: No Status: Chronic Plan: Will need to be restarted on medication -Contact Medicaid for medication cost Qualifiers: Active/Remission status: remission status unspecified Qualified Code(s): F31.9 - Bipolar disorder, unspecified (6) CAD (coronary artery disease) Onset Date: 12/24/17 Current Visit: No Status: Chronic Qualifiers: Coronary Disease-Associated Artery/Lesion type: [place] artery [place] vs. transplanted heart: [place] heart Associated angina: without angina Qualified Code(s): I25.10 - Atherosclerotic heart disease of [place] coronary artery without angina pectoris (7) CHF (congestive heart failure) Onset Date: 12/24/17 Current Visit: No Status: Chronic Qualifiers: Heart failure type: unspecified Heart failure chronicity: chronic Qualified Code(s): I50.9 - Heart failure, unspecified (8) COPD (chronic obstructive pulmonary disease) Onset Date: 12/24/17 Current Visit: No Status: Chronic Qualifiers: COPD type: unspecified COPD Qualified Code(s): J44.9 - Chronic obstructive pulmonary disease, unspecified (9) Diabetes Onset Date: 12/24/17 Current Visit: No Status: Chronic Qualifiers: Diabetes mellitus type: type 2 Diabetes mellitus fpc insulin use: without fpc use Diabetes mellitus complication status: without complication Qualified Code(s): E11.9 - Type 2 diabetes mellitus without complications (10) ESRD (end stage renal disease) Onset Date: 12/24/17 Current Visit: No Status: Chronic (11) Hypertension Onset Date: 12/24/17 Current Visit: No Status: Chronic Qualifiers: Hypertension type: essential hypertension Qualified Code(s): I10 - Essential (primary) hypertension Discharge Plan: [facility] Plan to discharge in: 24 Hours - Code Status/Comfort Care Code Status Assessed: Yes Critical Care: No
[2018-03-22] MEDS: VANCOMYCIN 500 MG in NA CHLORIDE 0.9% 100 ML IVPB SCH (12:51)
[2018-03-22] MEDS: ENOXAPARIN 30 MG/0.3 ML SQ SCH (17:01)
[2018-03-22] MEDS: ZIPRASIDONE MESYLA 20 MG/VIAL IM PRN (17:34)
[2018-03-22] MEDS ORDERED: ZIPRASIDONE MESYLA 20 MG/VIAL IM SCH (21:00)
[2018-03-22] MEDS: PIPER/TAZO/NS 2.25gm 2.25 GM/50 ML BAG IV SCH (21:44)
--- NOTE | 2018-03-22 22:37 | P.CNS ---
Date of Consult: 03/21/18 Reason for Consult: ESRD/ HTN Requesting Physician: Ryan Rojas Primary Care Provider: Dr. George(prison); Nephrology-Dr. Leavitt Chief Complaint: Altered mental status, pleural effusion History of Present Illness: 57-year-old male presented emergency room with altered mental status. Patient was [facility] prison reports altered mental status changes. Blood sugar was obtained at the [facility]. Initial blood sugar around 50. Patient was given glucose. Recheck was around 80. Patient was brought in to the emergency room. Family at bedside. Family reports that the patient was in his normal state last week. Patient with multiple medical problems including end-stage renal disease, depression with anxiety, COPD, CAD, dementia, hypertension, diabetes, chronic pleural effusion, normal-pressure hydrocephalus. 17:17 This 57 yrs old Male presents to ER via EMS with complaints of Altered Mental kdr Status. 17:17 The patient presents with confusion, decreased mental status, decreased responsiveness. kdr Onset: The symptoms/episode began/occurred gradually, at an unknown time. Possible causes: CVA or TIA, sepsis, unknown. Associated signs and symptoms:. Current symptoms: In the emergency department the patient's symptoms are unchanged from the initial presentation. Patient's baseline: Neuro: alert but confused, Motor: no deficits, Ambulation: walks with assist only, Speech: Not speaking, The patient has a previous history of. It is unknown whether or not the patient has had similar symptoms in the past. It is unknown whether or not the patient has recently seen a physician. Allergies No Known Drug Allergies Allergy (Verified 02/09/18 01:19) Unknown No Known Allergies Allergy (Uncoded 02/09/18 01:19) Unknown Home medications list reviewed: Yes Home Medications: Albuterol Inhaler [Ventolin Inhaler*] 1 puff IH QID 02/09/18 Alprazolam [Xanax] 0.5 mg PO BEDTIME 02/09/18 Alprazolam [Xanax] 1 mg PO T,TH,S 02/09/18 Clonidine HCl [Catapres*] 0.3 mg PO TID 02/09/18 Fentanyl 25 mcg TD Q72H 02/09/18 Furosemide 40 mg PO BID 02/09/18 Gabapentin [Neurontin*] 100 mg PO BID 02/09/18 Hydrocodone Bit/Acetaminophen [Hydrocodon-Acetaminoph 7.5-325] 1 each PO Q6HP PRN 02/09/18 Insulin NPH Human [Novolin N (Humulin N)*] 7 units SQ BID 02/09/18 Ipratropium/Albuterol Sulfate [Iprat-Albut 0.5-3(2.5) mg/3 ml] 3 ml IH Q6HP PRN 02/09/18 Nifedipine [Nifedipine ER] 90 mg PO Q12H 02/09/18 Nitroglycerin 0.4 mg SL Q5MX3 PRN 02/09/18 Vit D3/Folic Acid/B2/B6/B12 [Folgard Tablet] 1 each PO DAILY 02/09/18 Atorvastatin Calcium [Lipitor*] 1 tab PO BEDTIME 02/10/18 Calcitriol [Rocaltrol] 1 cap PO DAILY 02/10/18 Carvedilol [Coreg*] 25 mg PO BID 02/10/18 Donepezil HCl [Aricept] 10 mg PO BEDTIME 02/10/18 Doxazosin Mesylate 4 mg PO Q12HR 02/10/18 Folic Acid 1 mg PO DAILY 02/10/18 Losartan Potassium [Cozaar*] 50 mg PO BID 02/10/18 Ondansetron HCl 4 mg PO Q6HR PRN 02/10/18 Pramipexole Di-HCl [Pramipexole Dihydrochloride] 1 tab PO BEDTIME 02/10/18 Ranolazine [Ranexa] 500 mg PO BID 02/10/18 Venlafaxine HCl [Venlafaxine HCl ER] 150 mg PO BID 02/10/18 Alprazolam [Xanax] 0.5 mg PO Q6H PRN 03/20/18 Aspirin Chewable [Aspirin Chewable*] 81 mg PO DAILY 03/20/18 Glucagon HCl 1 mg IM PRN PRN 03/20/18 Pantoprazole [Protonix Tab*] 40 mg PO DAILY 03/20/18 - Past Medical/Surgical History Diabetic: Yes -: DM-Type 2 -: HTN -: Hyperlipidemia -: Dementia, Parkinsons disease -: GERD -: ESRD, Nephrology-Dr. Leavitt, Dialysis-,Sun -: Restless leg syndrome -: COPD -: Depression, insomnia -: Anemia of chronic disease -: Normal-pressure hydrocephalus -: CAD, PUD -: Cardiac stents. -: Numerous back surgeries -: Congestive heart failure Psychosocial/ Personal History: He currently lives at the [facility] - Family History Mother Medical History: Heart disease, Hypertension Father Medical History: Heart disease - Social History Smoking Status: Unknown if ever smoked Alcohol use: No CD- Drugs: No Caffeine use: Yes Place of Residence: [facility] Review of Systems 10-point ROS is otherwise unremarkable General: Weakness, Malaise Respiratory: SOB with Excertion Cardiovascular: Edema Neurological: Weakness Physical Examination Temp Pulse Resp BP Pulse Ox 97.8 F 85 15 207/91 H 98 03/22/18 16:00 03/22/18 19:26 03/22/18 19:00 03/22/18 19:26 03/22/18 19:00 General: Cooperative, Confused HEENT: Atraumatic Neck: Supple, No LAD Respiratory: Clear to auscultation bilaterally, Diminished Cardiovascular: Regular rate/rhythm, Edema Gastrointestinal: Hypoactive, Soft and benign, Non-distended, Tenderness Musculoskeletal: No clubbing, No warmth, Contractures Integumentary: No rashes, No cyanosis Neurological: Abnormal tone Blood work reviewed in the chart. Hgb 8 Imagings Data: EXAM DESCRIPTION: CT - Abdomen Pelvis Wo Contrast - 03/20/2018 3:30 pm CLINICAL HISTORY: Abdominal pain COMPARISON: CT December 20 TECHNIQUE: Axial [address] imaging of the abdomen and pelvis was performed without IV contrast. No IV contrast was given because of allergy, abnormal renal function, patient refusal or physician request. No oral contrast administered. All CT scans are performed using dose optimization technique as appropriate and may include automated exposure control or mA/KV adjustment according to patient size. FINDINGS: Heart and lung base findings are detailed on separate report. There is substantial motion degradation involving the upper and mid portion of the abdomen and pelvis. The liver, spleen and pancreas show no suspicious findings on non-contrast imaging. Gallbladder is distended. Gallstones can be occult. Biliary tree is not dilated. Gallbladder wall thickening or edema cannot be accurately assessed due to the extent of motion. No hydronephrosis or suspicious renal mass. No obstructing or nonobstructing calculi seen. Patient has dense vascular calcifications. Urinary bladder is tightly contracted precluding accurate assessment. No bladder calculi seen. No significant adrenal finding. Isodense renal masses and pyelonephritis cannot be excluded in the absence of IV contrast. No acute gastric finding suspected. Large and small bowel loops are not dilated. Air is present in the appendix. Acute appendicitis is not suspected. The appendix is partially retrocecal. Moderate stool volume in the colon. [place]eralta of the rectum are mildly prominent. Minimal sigmoid diverticulosis. No mass or bulky lymphadenopathy. No free air or pneumatosis. Small quantity of free fluid is present. Prominent disc and bony degenerative changes are present. There is extensive postsurgical change spanning the lower lumbar spine and sacrum. Advanced degenerative change is present involving the disc and endplates at L5-S1. There are bone resorption changes at L5 and S1. These changes are not substantially different from prior imaging. This is probably a combination of degenerative change an osteopenic change. Extent of hardware alters the mechanical loading of the lumbosacral junction. Review of prior imaging details a history of discitis/osteomyelitis in this region. Current findings do not indicate a progressive process at this location. . IMPRESSION: No bowel obstruction, free air or surgically emergent finding. Peralta of the rectum are prominent. Mild localized inflammatory process is possible. . Gallbladder is distended. Gallstones can be occult on CT imaging. Due to the extensive motion degradation, gallbladder wall thickening or edema cannot be evaluated. Biliary tree is normal. No acute finding. Urinary bladder is fully contracted limiting assessment. Extensive degenerative and postsurgical change near the lumbosacral junction. 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 Current findings are stable. Conclusions/Impression: A/ ESRD on HD TTS. HTN with CKD. A/C Diastolic CHF. Anemia in CKD. JACOB/ Secondary HyperPTH. DM II with CKD. Hypoglycemia. AMS. Bipolar. Sepsis. P/ Continue current POC and Medications. Arrange for acute HD. Start IV antihypertensives due to NPO. D10 started for persistent hypoglycemia. Home medications started as tolerated. Start Epo. Low sodium diet. AM labs. Daily weight. No NSAIDs. Thank you kindly for the consultation. Case discussed with Dr. Rojas.
[2018-03-22] MEDS: HYDRALAZINE HCL 20 MG/ML VIAL IV PRN (23:12)
[2018-03-23] MEDS: NITROGLYCERIN 1 GM PKT TD SCH ×5 (00:31→23:43)
[2018-03-23] MEDS: ENALAPRILAT 1.25 MG/ML VIAL IV SCH ×4 (00:31→17:40)
[2018-03-23 05:08] LABS: Absolute Lymphocytes (CBC) 1.2 K/uL (0.7-4.9); Absolute Monocytes 2.6 K/uL (0.1-1.3); Absolute Neutrophil 17.9 K/uL (1.8-8.0); Basophils % 0.5 % (0-1.3); Eosinophils % 0.2 % (0-4.4); Hematocrit 28.5 % (39.6-49.0); Lymphocytes % 5.7 % (15.3-44.8); MCH 26.7 pg (27.0-35.0); MCV 82.1 fL (80-100); MPV 8.7 fL (7.6-11.3); Monocytes % 11.9 % (3.3-12.3); RBC Red Blood Cell Count 3.48 M/uL (4.33-5.43)
[2018-03-23 05:29] LABS: Albumin 3.1 g/dL (3.2-5.5); Bilirubin Total 1.1 mg/dL (0.3-1.2); Potassium 3.5 mEq/L (3.6-5.0); Protein, Total 6.4 g/dL (6.0-8.3)
[2018-03-23 05:43] LABS: Anisocytosis 2+; Blood Morphology Comment NOTED (NOT SEEN); Platelet Estimate ADEQ
[2018-03-23 05:44] LABS: Hypochromasia 1+; Polychromasia 1+; Target Cells 1+
[2018-03-23] MEDS: D5W 1,000 ML IV SCH (06:19)
[2018-03-23] MEDS: INSULIN -REGULAR HUMAN 50 UNIT/0.5 ML ML SQ SCH ×4 (07:20→20:21)
[2018-03-23] MEDS: ARFORMOTEROL TARTRATE 15 MCG/2 ML VIAL.NEB NEB SCH ×2 (08:00→20:03)
[2018-03-23] MEDS: ZIPRASIDONE MESYLA 20 MG/VIAL IM PRN (08:24)
[2018-03-23] MEDS: ASPIRIN EC 81 MG TAB PO SCH (08:26)
[2018-03-23] MEDS: PIPER/TAZO/NS 2.25gm 2.25 GM/50 ML BAG IV SCH ×2 (08:27→20:21)
[2018-03-23] MEDS: PANTOPRAZOLE 40 MG INJ IVP SCH (08:28)
--- NOTE | 2018-03-23 10:21 | P.PN ---
Subjective Date of Service: 03/23/18 Primary Care Provider: Dr. George([facility]); Nephrology-Dr. Leavitt Chief Complaint: Altered mental status, pleural effusion Pt seen and examined at bedside. Chart Reviewed. Case DW with Cardiology and Nephrology. Pt is currently Altered but no hallucinations noted. Did have a episode of Aspiration yesterday. [facility] had stopped pt's Geodon and Latuda 1 month ago as the insurance stop paying for the medication. Review of Systems General: As per HPI Physical Examination - Vital Signs Temperature: 99.4 F Blood Pressure: 164/95 Pulse: 81 Respirations: 21 Pulse Ox (%): 96 - Physical Exam General: In no apparent distress, Confused HEENT: Atraumatic Neck: Supple, JVD not distended Respiratory: Normal air movement, Crackles/rales Cardiovascular: Regular rate/rhythm, Normal S1 S2 Gastrointestinal: Normal bowel sounds, No tenderness Musculoskeletal: No tenderness Integumentary: No rashes Neurological: Normal tone, Abnormal speech, Abnormal affect Lymphatics: No axilla or inguinal lymphadenopathy - Studies Medications List Reviewed: Yes Assessment & Plan - Problems (Diagnosis) (1) Sepsis Onset Date: 05/28/17 Current Visit: No Status: Acute Plan: Elevated WBC with Tachycardia. Possibility of aspiration yesterday -Will get Sid and Sputum culture -Repeat Blood culture -On Vanc and zosyn for now Qualifiers: Sepsis type: sepsis due to unspecified organism Qualified Code(s): A41.9 - Sepsis, unspecified organism (2) Altered mental status Onset Date: 03/21/18 Current Visit: Yes Status: Acute Plan: Most likely 2.2 to hypoglycemia vs Worsening of Bipolar due to no treatment -Hypoglycemia is now resolved and on D5W at 30ml.hr -Unable to Swallow at this time. Speech Consulted. -At risk for aspiration. aspiration precaution given -Stop Geodon due to V.Tach and Hepatic Impairment. Qualifiers: Altered mental status type: disorientation Qualified Code(s): R41.0 - Disorientation, unspecified (3) Hypoglycemia associated with diabetes Onset Date: 03/21/18 Current Visit: Yes Status: Resolved Plan: See # 1 (4) Pulmonary edema Onset Date: 03/21/18 Current Visit: Yes Status: Acute Plan: Most likely 2.2 to Volume Overload. Improving today -Nephrology Consulted. Appreciate Reccs -HD for volume overload Qualifiers: Chronicity: acute Qualified Code(s): J81.0 - Acute pulmonary edema (5) COPD (chronic obstructive pulmonary disease) Current Visit: No Status: Chronic Qualifiers: COPD type: unspecified COPD Qualified Code(s): J44.9 - Chronic obstructive pulmonary disease, unspecified (6) Bipolar disorder Onset Date: 05/04/17 Current Visit: No Status: Chronic Plan: Will need to be restarted on different medication once medically stable. -Contact Medicaid for medication cost Qualifiers: Active/Remission status: remission status unspecified Qualified Code(s): F31.9 - Bipolar disorder, unspecified (7) CAD (coronary artery disease) Onset Date: 12/24/17 Current Visit: No Status: Chronic Qualifiers: Coronary Disease-Associated Artery/Lesion type: [place] artery [place] vs. transplanted heart: [place] heart Associated angina: without angina Qualified Code(s): I25.10 - Atherosclerotic heart disease of [place] coronary artery without angina pectoris (8) CHF (congestive heart failure) Onset Date: 12/24/17 Current Visit: No Status: Chronic Qualifiers: Heart failure type: unspecified Heart failure chronicity: chronic Qualified Code(s): I50.9 - Heart failure, unspecified (9) COPD (chronic obstructive pulmonary disease) Onset Date: 12/24/17 Current Visit: No Status: Chronic Qualifiers: COPD type: unspecified COPD Qualified Code(s): J44.9 - Chronic obstructive pulmonary disease, unspecified (10) Diabetes Onset Date: 12/24/17 Current Visit: No Status: Chronic Qualifiers: Diabetes mellitus type: type 2 Diabetes mellitus computer terminal operator insulin use: without computer terminal operator use Diabetes mellitus complication status: without complication Qualified Code(s): E11.9 - Type 2 diabetes mellitus without complications (11) ESRD (end stage renal disease) Onset Date: 12/24/17 Current Visit: No Status: Chronic (12) Hypertension Onset Date: 12/24/17 Current Visit: No Status: Chronic Qualifiers: Hypertension type: essential hypertension Qualified Code(s): I10 - Essential (primary) hypertension
[2018-03-23] MEDS ORDERED: LORazepam 2 MG/ML VIAL IV PRN (10:28)
--- NOTE | 2018-03-23 14:44 | RAD REPORT ---
EXAM DESCRIPTION: RAD - Chest Single View - 03/23/2018 2:17 pm CLINICAL HISTORY: Shortness of breath COMPARISON: March 22 TECHNIQUE: AP portable chest image was obtained 1156 hours . FINDINGS: Cardiomegaly remains. Central vasculature and lung markings remain prominent No worsening of the lung parenchymal findings. Trachea is midline. Dialysis catheter remains in place. No measurab le pleural effusion and no pneumothorax. No gross bony abnormality seen. No acute aortic findings dionicio pected. IMPRESSION: CHF/volume overload findings similar to prior day study.
--- NOTE | 2018-03-23 15:05 | P.PN ---
Date of Service: 03/22/18 Vital Signs Temp Pulse Resp BP Pulse Ox 98.2 F 84 18 171/93 H 95 03/23/18 12:00 03/23/18 12:00 03/23/18 12:00 03/23/18 12:00 03/23/18 12:00 Medications Albuterol Sulfate (Proventil 0.083% Neb Soln) 2.5 mg NEB [id number] PRN PRN Reason: SHORTNESS OF BREATH Stop: 04/19/18 20:01 Arformoterol Tartrate (Brovana) 15 mcg NEB BIDRESP RUBY Stop: 04/19/18 20:01 Last Admin: 03/23/18 08:00 Dose: 15 mcg Aspirin (Aspirin Ec) 81 mg PO DAILY RUBY Stop: 04/20/18 09:01 Last Admin: 03/23/18 08:26 Dose: Not Given Dextrose (Dextrose 50% Syringe) 12.5 gm IV PRN PRN; Protocol PRN Reason: HYPOGLYCEMIA Stop: 04/19/18 18:53 Last Admin: 03/21/18 06:04 Dose: 12.5 gm Enalaprilat (Vasotec) 2.5 mg IV Q6H RUBY Stop: 04/20/18 13:01 Last Admin: 03/23/18 11:46 Dose: 2.5 mg Enoxaparin Sodium (Lovenox 30 Mg Inj) 30 mg SQ DAILY 5 PM RUBY Stop: 04/19/18 21:01 Last Admin: 03/22/18 17:01 Dose: 30 mg Epoetin Jg (Procrit) 10,000 unit IV EVERY HD RUBY Stop: 04/19/18 18:31 Last Admin: 03/22/18 11:27 Dose: 10,000 unit Heparin Sodium (Porcine) (Heparin 1,000 Units/Ml) 6,000 unit IV EVERY HD PRN PRN Reason: FLUSH AFTER EACH USE Stop: 04/19/18 18:20 Last Admin: 03/22/18 11:29 Dose: 6,000 unit Hydralazine HCl (Apresoline) 20 mg IV Q6HP PRN PRN Reason: HIGH BP Stop: 04/19/18 16:54 Last Admin: 03/22/18 23:12 Dose: 20 mg Albumin Human (Albumin 25%) 50 mls @ 100 mls/hr IV EVERY HD RUBY Stop: 04/19/18 19:01 Vancomycin HCl 500 mg/ Sodium (Chloride) 100 mls @ 100 mls/hr IVPB AFTER EACH DIALYSIS [facility] Stop: 04/20/18 07:46 Last Admin: 03/22/18 12:51 Dose: 100 mls Dextrose/Water (Dextrose In Water (1-Liter)) 1,000 mls @ 30 mls/hr IV .[id number] RUBY Stop: 04/20/18 17:01 Last Admin: 03/23/18 06:19 Dose: 1,000 mls Piperacillin/Tazobactam/Sod Chloride (Zosyn 2.25 Gm/50 Ml Ivpb) 2.25 gm in 50 mls @ 50 mls/hr IV Q12HR [facility] Stop: 04/21/18 21:01 Last Admin: 03/23/18 08:27 Dose: 50 mls Insulin Human Regular (Novolin -R) 0 unit SQ ACHS RUBY; Protocol Stop: 04/19/18 21:01 Last Admin: 03/23/18 11:30 Dose: Not Given Ipratropium [place] (Atrovent Neb) 0.5 mg NEB [id number] PRN PRN Reason: SHORTNESS OF BREATH Stop: 04/19/18 20:01 Last Admin: 03/21/18 19:50 Dose: 0.5 mg Lorazepam (Ativan) 2 mg IV Q4H PRN PRN Reason: AGITATION Stop: 04/22/18 10:29 Mannitol (Mannitol 12.5 Gm/50 Ml Vial) 12.5 gm IV EVERY HD PRN PRN Reason: BP support at hemodialysis Stop: 04/19/18 18:20 Nitroglycerin (Nitrol Oint) 1 gm TD Q6HR RUBY Stop: 04/20/18 00:01 Last Admin: 03/23/18 11:50 Dose: 1 gm Ondansetron HCl (Zofran) 4 mg IV Q6HP PRN PRN Reason: NAUSEA / VOMITING Stop: 04/19/18 16:54 Last Admin: 03/23/18 08:26 Dose: 4 mg Pantoprazole Sodium (Protonix Inj) 40 mg IVP DAILY RUBY Stop: 04/20/18 09:01 Last Admin: 03/23/18 08:28 Dose: 40 mg Sodium Chloride (Sodium Chloride 10 Ml Inj) 10 ml IV UD PRN PRN Reason: Diluant Stop: 04/19/18 16:54 Last Admin: 03/21/18 08:20 Dose: 10 ml Sterile Water (Sterile Water For Inj (10 Ml Vial)) 1.2 ml IM UD PRN PRN Reason: DILUTION OF MED Stop: 04/20/18 18:27 Last Admin: 03/23/18 08:26 Dose: 1.2 ml Sterile Water (Sterile Water For Inj (10 Ml Vial)) 1.2 ml IM UD PRN PRN Reason: DILUTION OF MED Stop: 04/21/18 10:49 Assessment/ Plan: Nephrology. Persistent AMS. CPS stable without CP or SOB. +BM. No acute events overnight. Vitals, medications, blood work and imaging reviewed in the chart. General: Cooperative, Confused HEENT: Atraumatic Neck: Supple, No LAD Respiratory: Clear to auscultation bilaterally, Diminished Cardiovascular: Regular rate/rhythm, Edema Gastrointestinal: Hypoactive, Soft and benign, Non-distended, Tenderness Musculoskeletal: No clubbing, No warmth, Contractures Integumentary: No rashes, No cyanosis Neurological: Abnormal tone Blood work reviewed in the chart. Hgb 8 Imagings Data: EXAM DESCRIPTION: CT - Abdomen Pelvis Wo Contrast - 03/20/2018 3:30 pm CLINICAL HISTORY: Abdominal pain COMPARISON: CT December 20 TECHNIQUE: Axial [address] imaging of the abdomen and pelvis was performed without IV contrast. No IV contrast was given because of allergy, abnormal renal function, patient refusal or physician request. No oral contrast administered. All CT scans are performed using dose optimization technique as appropriate and may include automated exposure control or mA/KV adjustment according to patient size. FINDINGS: Heart and lung base findings are detailed on separate report. There is substantial motion degradation involving the upper and mid portion of the abdomen and pelvis. The liver, spleen and pancreas show no suspicious findings on non-contrast imaging. Gallbladder is distended. Gallstones can be occult. Biliary tree is not dilated. Gallbladder wall thickening or edema cannot be accurately assessed due to the extent of motion. No hydronephrosis or suspicious renal mass. No obstructing or nonobstructing calculi seen. Patient has dense vascular calcifications. Urinary bladder is tightly contracted precluding accurate assessment. No bladder calculi seen. No significant adrenal finding. Isodense renal masses and pyelonephritis cannot be excluded in the absence of IV contrast. No acute gastric finding suspected. Large and small bowel loops are not dilated. Air is present in the appendix. Acute appendicitis is not suspected. The appendix is partially retrocecal. Moderate stool volume in the colon. [place]ta of the rectum are mildly prominent. Minimal sigmoid diverticulosis. No mass or bulky lymphadenopathy. No free air or pneumatosis. Small quantity of free fluid is present. Prominent disc and bony degenerative changes are present. There is extensive postsurgical change spanning the lower lumbar spine and sacrum. Advanced degenerative change is present involving the disc and endplates at L5-S1. There are bone resorption changes at L5 and S1. These changes are not substantially different from prior imaging. This is probably a combination of degenerative change an osteopenic change. Extent of hardware alters the mechanical loading of the lumbosacral junction. Review of prior imaging details a history of discitis/osteomyelitis in this region. Current findings do not indicate a progressive process at this location. . IMPRESSION: No bowel obstruction, free air or surgically emergent finding. [place]eralta of the rectum are prominent. Mild localized inflammatory process is possible. . Gallbladder is distended. Gallstones can be occult on CT imaging. Due to the extensive motion degradation, gallbladder wall thickening or edema cannot be evaluated. Biliary tree is normal. No acute finding. Urinary bladder is fully contracted limiting assessment. Extensive degenerative and postsurgical change near the lumbosacral junction. 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 Current findings are stable. Conclusions/Impression: A/ ESRD on HD TTS. HTN with CKD. A/C Diastolic CHF. Anemia in CKD. Hx GI bleed. JACOB/ Secondary HyperPTH. DM II with CKD. Hypoglycemia. AMS. Bipolar. Sepsis. P/ Continue current POC and Medications. Arrange for acute HD today. Start IV antihypertensives due to NPO. D10 started for persistent hypoglycemia. Home medications started as tolerated. Start Epo. Transfuse as needed. Low sodium diet. AM labs. Daily weight. No NSAIDs.
[2018-03-23] MEDS: ENOXAPARIN 30 MG/0.3 ML SQ SCH (17:40)
[2018-03-24] MEDS: ENALAPRILAT 1.25 MG/ML VIAL IV SCH ×4 (00:57→19:27)
[2018-03-24] MEDS ORDERED: DIGOXIN 0.25 MG/ML AMP IV STA (05:00)
[2018-03-24] MEDS ORDERED: DIGOXIN 0.25 MG/ML AMP ONE (05:02)
[2018-03-24] MEDS ORDERED: AMIODARONE HCL 150 MG/3 ML INJ IV ONE ×2 (05:05→05:10)
[2018-03-24] MEDS ORDERED: AMIODARONE HCL 150 MG in D5W 100 ML IV STA (05:10)
[2018-03-24] MEDS ORDERED: AMIODARONE Inj 900 MG/18 mL (=50 MG/ML) VIAL IV ONE (05:12)
[2018-03-24 05:38] LABS: Potassium 3.7 mEq/L (3.6-5.0)
[2018-03-24] MEDS: NITROGLYCERIN 1 GM PKT TD SCH ×3 (05:50→17:02)
[2018-03-24] MEDS ORDERED: AMIODARONE HCL 900 MG in Dextrose 5%-Water 482 ML IV SCH (06:00)
[2018-03-24] MEDS: INSULIN -REGULAR HUMAN 50 UNIT/0.5 ML ML SQ SCH ×4 (07:25→21:00)
[2018-03-24] MEDS: ARFORMOTEROL TARTRATE 15 MCG/2 ML VIAL.NEB NEB SCH ×2 (07:55→19:52)
[2018-03-24] MEDS: ASPIRIN EC 81 MG TAB PO SCH ×2 (09:00→09:59)
[2018-03-24] MEDS: PANTOPRAZOLE 40 MG INJ IVP SCH (09:58)
[2018-03-24] MEDS: PIPER/TAZO/NS 2.25gm 2.25 GM/50 ML BAG IV SCH ×2 (09:58→21:25)
--- NOTE | 2018-03-24 10:30 | RAD REPORT ---
EXAM DESCRIPTION: RAD - Chest Single View - 03/24/2018 9:32 am CLINICAL HISTORY: Device placement PICC line placement COMPARISON: March 23 FINDINGS: A PICC line has been inserted with its tip in the distal superior vena cava. Mild bilateral pulmonary opacities are unchanged. The heart remains enlarged. Central venous catheter remains in place IMPRESSION: PICC line with its tip in the distal superior vena cava
--- NOTE | 2018-03-24 10:40 | EKG ---
Test Date: 2018-03-24 Test Time: 04:59:18 Group Care Worker: RT MEASUREMENT RESULTS: Intervals: Rate: 151 MO: QRSD: 132 QT: 328 QTc: 519 [place]: P: MO: QRS: 54 T: 238 INTERPRETIVE STATEMENTS: Atrial fibrillation with rapid ventricular response with premature ventricular or aberrantly conducted complexes Nonspecific intraventricular block Inferior infarct, age undetermined ST abnormality, possible anterior subendocardial injury Abnormal ECG Compared to ECG 03/20/2018 12:58:28 Ventricular premature complex(es) now present Myocardial infarct finding now present ST (T wave) deviation now present Electronically Signed On 03-24-18 10:39:46 CDT by Júnior Napoles
[2018-03-24] MEDS: D5W 1,000 ML IV SCH (10:50)
--- NOTE | 2018-03-24 14:19 | P.PN ---
Subjective Date of Service: 03/24/18 Primary Care Provider: Dr. George([facility]); Nephrology-Dr. Leavitt Chief Complaint: Altered mental status, pleural effusion Pt seen and examined at bedside. Chart Reviewed. Case DW with Cardiology and Nephrology. Pt is more alert today. AAOx 2. NH had stopped pt's Geodon and Latuda 1 month ago as the insurance stop paying for the medication. Overnight had another episode of VTach and was placed on Amiodrone ggt. Converted to sinus rhythm now. Review of Systems General: As per HPI Physical Examination - Vital Signs Temperature: 98.2 F Blood Pressure: 139/78 Pulse: 172 Respirations: 14 Pulse Ox (%): 98 - Physical Exam General: Alert, In no apparent distress, Oriented x2 HEENT: Atraumatic Neck: Supple, JVD not distended Respiratory: Normal air movement, Rhonchi/gurgles Cardiovascular: Regular rate/rhythm, Normal S1 S2 Gastrointestinal: Normal bowel sounds, No tenderness Musculoskeletal: No tenderness Integumentary: No rashes Neurological: Normal speech, Normal tone, Normal affect Lymphatics: No axilla or inguinal lymphadenopathy - Studies Medications List Reviewed: Yes Assessment & Plan - Problems (Diagnosis) (1) Ventricular tachyarrhythmia Current Visit: Yes Status: Acute Plan: Most Likely 2.2 to Infection vs Uremia -On amiodrone ggt now -Cardiology consulted. Reccs Appreciated -Now in Sinus Rhythm. (2) Sepsis Onset Date: 05/28/17 Current Visit: No Status: Acute Plan: Elevated WBC with Tachycardia. Possibility of aspiration yesterday -Sid with Patchy infiltrates. -Blood culture Pending -On Vanc and zosyn for now -Improving today Qualifiers: Sepsis type: sepsis due to unspecified organism Qualified Code(s): A41.9 - Sepsis, unspecified organism (3) Altered mental status Onset Date: 03/21/18 Current Visit: Yes Status: Resolved Plan: Most likely 2.2 to hypoglycemia vs Bipolar vs Infection -Hypoglycemia is now resolved and on D5W at 30ml.hr -On IV abx for now. Cxray with Possible aspiration PNA -Stop Geodon due to V.Tach and Hepatic Impairment. Qualifiers: Altered mental status type: disorientation Qualified Code(s): R41.0 - Disorientation, unspecified (4) Hypoglycemia associated with diabetes Onset Date: 03/21/18 Current Visit: Yes Status: Resolved Plan: See # 2 (5) Pulmonary edema Onset Date: 03/21/18 Current Visit: Yes Status: Acute Plan: Most likely 2.2 to Volume Overload. Improving today -Nephrology Consulted. Appreciate Reccs -HD for volume overload Qualifiers: Chronicity: acute Qualified Code(s): J81.0 - Acute pulmonary edema (6) COPD (chronic obstructive pulmonary disease) Current Visit: No Status: Chronic Qualifiers: COPD type: unspecified COPD Qualified Code(s): J44.9 - Chronic obstructive pulmonary disease, unspecified (7) Bipolar disorder Onset Date: 05/04/17 Current Visit: No Status: Chronic Plan: Will need to be restarted on different medication once medically stable. -Contact Medicaid for medication cost Qualifiers: Active/Remission status: remission status unspecified Qualified Code(s): F31.9 - Bipolar disorder, unspecified (8) CAD (coronary artery disease) Onset Date: 12/24/17 Current Visit: No Status: Chronic Qualifiers: Coronary Disease-Associated Artery/Lesion type: [place] artery [place] vs. transplanted heart: [place] heart Associated angina: without angina Qualified Code(s): I25.10 - Atherosclerotic heart disease of [place] coronary artery without angina pectoris (9) CHF (congestive heart failure) Onset Date: 12/24/17 Current Visit: No Status: Chronic Qualifiers: Heart failure type: unspecified Heart failure chronicity: chronic Qualified Code(s): I50.9 - Heart failure, unspecified (10) COPD (chronic obstructive pulmonary disease) Onset Date: 12/24/17 Current Visit: No Status: Chronic Qualifiers: COPD type: unspecified COPD Qualified Code(s): J44.9 - Chronic obstructive pulmonary disease, unspecified (11) Diabetes Onset Date: 12/24/17 Current Visit: No Status: Chronic Qualifiers: Diabetes mellitus type: type 2 Diabetes mellitus hydro station operator insulin use: without mcfp use Diabetes mellitus complication status: without complication Qualified Code(s): E11.9 - Type 2 diabetes mellitus without complications (12) ESRD (end stage renal disease) Onset Date: 12/24/17 Current Visit: No Status: Chronic (13) Hypertension Onset Date: 12/24/17 Current Visit: No Status: Chronic Qualifiers: Hypertension type: essential hypertension Qualified Code(s): I10 - Essential (primary) hypertension Discharge Plan: [facility]f Plan to discharge in: 72 Hours - Code Status/Comfort Care Code Status Assessed: Yes Critical Care: No
[2018-03-24 14:56] LABS: Absolute Lymphocytes (CBC) 0.9 K/uL (0.7-4.9); Absolute Monocytes 1.5 K/uL (0.1-1.3); Absolute Neutrophil 14.4 K/uL (1.8-8.0); Basophils % 0.4 % (0-1.3); Eosinophils % 1.3 % (0-4.4); Hematocrit 25.8 % (39.6-49.0); Lymphocytes % 5.2 % (15.3-44.8); MCH 25.8 pg (27.0-35.0); MCV 84.1 fL (80-100); MPV 9.2 fL (7.6-11.3); Monocytes % 8.8 % (3.3-12.3); RBC Red Blood Cell Count 3.07 M/uL (4.33-5.43)
[2018-03-24 15:27] LABS: Blood Morphology Comment NOTED (NOT SEEN); Platelet Estimate DECR; Urine White Blood Cell Casts OK
[2018-03-24 15:28] LABS: Anisocytosis 1+
[2018-03-24] MEDS: ENOXAPARIN 30 MG/0.3 ML SQ SCH (17:02)
[2018-03-25] MEDS: NITROGLYCERIN 1 GM PKT TD SCH ×4 (00:13→17:30)
[2018-03-25] MEDS: ENALAPRILAT 1.25 MG/ML VIAL IV SCH ×3 (01:00→12:22)
[2018-03-25] MEDS: INSULIN -REGULAR HUMAN 50 UNIT/0.5 ML ML SQ SCH ×4 (07:30→20:52)
[2018-03-25] MEDS ORDERED: AMIODARONE HCL 450 MG in D5W 241 ML IV SCH (08:00)
[2018-03-25] MEDS: PANTOPRAZOLE 40 MG INJ IVP SCH (08:04)
[2018-03-25] MEDS: ASPIRIN EC 81 MG TAB PO SCH (08:04)
[2018-03-25] MEDS: PIPER/TAZO/NS 2.25gm 2.25 GM/50 ML BAG IV SCH ×2 (08:05→20:12)
[2018-03-25] MEDS: SODIUM CHLORIDE 0.9% 10ML INJ IV PRN (08:05)
[2018-03-25] MEDS: ARFORMOTEROL TARTRATE 15 MCG/2 ML VIAL.NEB NEB SCH ×2 (08:20→20:59)
--- NOTE | 2018-03-25 09:14 | P.PN ---
Subjective Date of Service: 03/25/18 Primary Care Provider: Dr. George([facility]); Nephrology-Dr. Leavitt Chief Complaint: Altered mental status, pleural effusion Pt seen and examined at bedside. Chart Reviewed. Case DW with Cardiology and Nephrology. Pt is more alert today. AAOx 2. NH had stopped pt's Geodon and Latuda 1 month ago as the insurance stop paying for the medication. On Amiodrone ggt currently. Sinus Rhythm. No complains to offer. Review of Systems General: As per HPI Physical Examination - Vital Signs Temperature: 97 F Blood Pressure: 188/84 Pulse: 68 Respirations: 20 Pulse Ox (%): 93 - Physical Exam General: Alert, In no apparent distress, Oriented x2 HEENT: Atraumatic Neck: Supple, JVD not distended Respiratory: Clear to auscultation bilaterally, Normal air movement Cardiovascular: Regular rate/rhythm, Normal S1 S2 Gastrointestinal: Normal bowel sounds, No tenderness Musculoskeletal: No tenderness Integumentary: No rashes Neurological: Normal speech, Normal tone, Normal affect Lymphatics: No axilla or inguinal lymphadenopathy - Studies Medications List Reviewed: Yes Assessment & Plan - Problems (Diagnosis) (1) Ventricular tachyarrhythmia Current Visit: Yes Status: Acute Plan: Most Likely 2.2 to Infection vs Uremia -On amiodrone ggt Currently. Will switch to PO -Cardiology consulted. Reccs Appreciated -Now in Sinus Rhythm. (2) Sepsis Onset Date: 05/28/17 Current Visit: No Status: Acute Plan: Elevated WBC with Tachycardia. Possibility of aspiration -Sid with Patchy infiltrates. -Blood culture Pending -On Vanc and zosyn for now -Improving today Qualifiers: Sepsis type: sepsis due to unspecified organism Qualified Code(s): A41.9 - Sepsis, unspecified organism (3) Altered mental status Onset Date: 03/21/18 Current Visit: Yes Status: Resolved Plan: Most likely 2.2 to hypoglycemia vs Bipolar vs Infection -Hypoglycemia is now resolved and stop D5W today and observe for hypoglycemia. -On IV vanc and zosyn for now. Cxray with Possible aspiration PNA -Stop Geodon due to V.Tach and Hepatic Impairment. Qualifiers: Altered mental status type: disorientation Qualified Code(s): R41.0 - Disorientation, unspecified (4) Hypoglycemia associated with diabetes Onset Date: 03/21/18 Current Visit: Yes Status: Resolved Plan: See # 2 (5) Pulmonary edema Onset Date: 03/21/18 Current Visit: Yes Status: Acute Plan: Most likely 2.2 to Volume Overload. Improving today -Nephrology Consulted. Appreciate Reccs -HD for volume overload Qualifiers: Chronicity: acute Qualified Code(s): J81.0 - Acute pulmonary edema (6) COPD (chronic obstructive pulmonary disease) Current Visit: No Status: Chronic Qualifiers: COPD type: unspecified COPD Qualified Code(s): J44.9 - Chronic obstructive pulmonary disease, unspecified (7) Bipolar disorder Onset Date: 05/04/17 Current Visit: No Status: Chronic Plan: Will need to be restarted on different medication once medically stable. -Contact Medicaid for medication cost Qualifiers: Active/Remission status: remission status unspecified Qualified Code(s): F31.9 - Bipolar disorder, unspecified (8) CAD (coronary artery disease) Onset Date: 12/24/17 Current Visit: No Status: Chronic Qualifiers: Coronary Disease-Associated Artery/Lesion type: [place] artery [place] vs. transplanted heart: [place] heart Associated angina: without angina Qualified Code(s): I25.10 - Atherosclerotic heart disease of [place] coronary artery without angina pectoris (9) CHF (congestive heart failure) Onset Date: 12/24/17 Current Visit: No Status: Chronic Qualifiers: Heart failure type: unspecified Heart failure chronicity: chronic Qualified Code(s): I50.9 - Heart failure, unspecified (10) COPD (chronic obstructive pulmonary disease) Onset Date: 12/24/17 Current Visit: No Status: Chronic Qualifiers: COPD type: unspecified COPD Qualified Code(s): J44.9 - Chronic obstructive pulmonary disease, unspecified (11) Diabetes Onset Date: 12/24/17 Current Visit: No Status: Chronic Qualifiers: Diabetes mellitus type: type 2 Diabetes mellitus exterminator insulin use: without half-way use Diabetes mellitus complication status: without complication Qualified Code(s): E11.9 - Type 2 diabetes mellitus without complications (12) ESRD (end stage renal disease) Onset Date: 12/24/17 Current Visit: No Status: Chronic (13) Hypertension Onset Date: 12/24/17 Current Visit: No Status: Chronic Qualifiers: Hypertension type: essential hypertension Qualified Code(s): I10 - Essential (primary) hypertension Discharge Plan: [facility] Plan to discharge in: 72 Hours - Code Status/Comfort Care Code Status Assessed: Yes Critical Care: No
[2018-03-25 09:35] LABS: Absolute Monocytes 1.4 K/uL (0.1-1.3); Absolute Neutrophil 11.9 K/uL (1.8-8.0); Basophils % 0.7 % (0-1.3); Eosinophils % 3.6 % (0-4.4); Hematocrit 24.9 % (39.6-49.0); Lymphocytes % 6.9 % (15.3-44.8); MCH 26.4 pg (27.0-35.0); Monocytes % 9.6 % (3.3-12.3); RBC Red Blood Cell Count 2.97 M/uL (4.33-5.43)
[2018-03-25 09:52] LABS: Albumin 2.8 g/dL (3.2-5.5); Potassium 3.2 mEq/L (3.6-5.0)
[2018-03-25 12:35] LABS: Anisocytosis 2+; Blood Morphology Comment NOTED (NOT SEEN); Macrocytosis 2+; Platelet Estimate ADEQ; Polychromasia 2+; Urine White Blood Cell Casts OK
--- NOTE | 2018-03-25 14:47 | P.PN ---
Date of Service: 03/25/18 Vital Signs Temp Pulse Resp BP Pulse Ox 97 F 70 16 172/74 H 97 03/25/18 09:14 03/25/18 10:00 03/25/18 10:00 03/25/18 10:00 03/25/18 10:00 Medications Albuterol Sulfate (Proventil 0.083% Neb Soln) 2.5 mg NEB [id number] PRN PRN Reason: SHORTNESS OF BREATH Stop: 04/19/18 20:01 Amiodarone HCl (Cordarone Tab) 200 mg PO BID RUBY Stop: 04/24/18 21:01 Arformoterol Tartrate (Brovana) 15 mcg NEB BIDRESP RUBY Stop: 04/19/18 20:01 Last Admin: 03/25/18 08:20 Dose: 15 mcg Aspirin (Aspirin Ec) 81 mg PO DAILY RUBY Stop: 04/20/18 09:01 Last Admin: 03/25/18 08:04 Dose: 81 mg Dextrose (Dextrose 50% Syringe) 12.5 gm IV PRN PRN; Protocol PRN Reason: HYPOGLYCEMIA Stop: 04/19/18 18:53 Last Admin: 03/21/18 06:04 Dose: 12.5 gm Enalaprilat (Vasotec) 2.5 mg IV Q6H RUBY Stop: 04/20/18 13:01 Last Admin: 03/25/18 12:22 Dose: Not Given Enoxaparin Sodium (Lovenox 30 Mg Inj) 30 mg SQ DAILY 5 PM RUBY Stop: 04/19/18 21:01 Last Admin: 03/24/18 17:02 Dose: 30 mg Epoetin Jg (Procrit) 10,000 unit IV EVERY HD RUBY Stop: 04/19/18 18:31 Last Admin: 03/22/18 11:27 Dose: 10,000 unit Heparin Sodium (Porcine) (Heparin 1,000 Units/Ml) 6,000 unit IV EVERY HD PRN PRN Reason: FLUSH AFTER EACH USE Stop: 04/19/18 18:20 Last Admin: 03/22/18 11:29 Dose: 6,000 unit Hydralazine HCl (Apresoline) 20 mg IV Q6HP PRN PRN Reason: HIGH BP Stop: 04/19/18 16:54 Last Admin: 03/22/18 23:12 Dose: 20 mg Albumin Human (Albumin 25%) 50 mls @ 100 mls/hr IV EVERY HD [facility] Stop: 04/19/18 19:01 Vancomycin HCl 500 mg/ Sodium (Chloride) 100 mls @ 100 mls/hr IVPB AFTER EACH DIALYSIS [facility] Stop: 04/20/18 07:46 Last Admin: 03/22/18 12:51 Dose: 100 mls Dextrose/Water (Dextrose In Water (1-Liter)) 1,000 mls @ 30 mls/hr IV .[id number] RUBY Stop: 04/20/18 17:01 Last Admin: 03/24/18 10:50 Dose: 1,000 mls Piperacillin/Tazobactam/Sod Chloride (Zosyn 2.25 Gm/50 Ml Ivpb) 2.25 gm in 50 mls @ 50 mls/hr IV Q12HR [facility] Stop: 04/21/18 21:01 Last Admin: 03/25/18 08:05 Dose: 50 mls Insulin Human Regular (Novolin -R) 0 unit SQ ACHS [facility]; Protocol Stop: 04/19/18 21:01 Last Admin: 03/25/18 11:30 Dose: Not Given Ipratropium [place] (Atrovent Neb) 0.5 mg NEB [id number] PRN PRN Reason: SHORTNESS OF BREATH Stop: 04/19/18 20:01 Last Admin: 03/21/18 19:50 Dose: 0.5 mg Lorazepam (Ativan) 2 mg IV Q4H PRN PRN Reason: AGITATION Stop: 04/22/18 10:29 Mannitol (Mannitol 12.5 Gm/50 Ml Vial) 12.5 gm IV EVERY HD PRN PRN Reason: BP support at hemodialysis Stop: 04/19/18 18:20 Nitroglycerin (Nitrol Oint) 1 gm TD Q6HR [facility] Stop: 04/20/18 00:01 Last Admin: 03/25/18 12:00 Dose: Not Given Ondansetron HCl (Zofran) 4 mg IV Q6HP PRN PRN Reason: NAUSEA / VOMITING Stop: 04/19/18 16:54 Last Admin: 03/23/18 08:26 Dose: 4 mg Pantoprazole Sodium (Protonix Inj) 40 mg IVP DAILY [facility] Stop: 04/20/18 09:01 Last Admin: 03/25/18 08:04 Dose: 40 mg Sodium Chloride (Sodium Chloride 10 Ml Inj) 10 ml IV UD PRN PRN Reason: Diluant Stop: 04/19/18 16:54 Last Admin: 03/25/18 08:05 Dose: 10 ml Sterile Water (Sterile Water For Inj (10 Ml Vial)) 1.2 ml IM UD PRN PRN Reason: DILUTION OF MED Stop: 04/20/18 18:27 Last Admin: 03/23/18 08:26 Dose: 1.2 ml Sterile Water (Sterile Water For Inj (10 Ml Vial)) 1.2 ml IM UD PRN PRN Reason: DILUTION OF MED Stop: 04/21/18 10:49 Assessment/ Plan: Nephrology. Doing better today. Tolerating PO. CPS stable with CP or SOB. No acute events overnight. Seen and examined at the end of HD. Vitals, medications, blood work and imaging reviewed in the chart. General: Cooperative. AAO. HEENT: Atraumatic Neck: Supple, No LAD Respiratory: Clear to auscultation bilaterally Cardiovascular: Regular rate/rhythm, No edema. Gastrointestinal: ND NT Musculoskeletal: No c/c/e Integumentary: No rashes, No cyanosis Neurological: Normal speech. Blood work reviewed in the chart. Hgb 8 Imagings Data: EXAM DESCRIPTION: CT - Abdomen Pelvis Wo Contrast - 03/20/2018 3:30 pm CLINICAL HISTORY: Abdominal pain COMPARISON: CT December 20 TECHNIQUE: Axial [address] imaging of the abdomen and pelvis was performed without IV contrast. No IV contrast was given because of allergy, abnormal renal function, patient refusal or physician request. No oral contrast administered. All CT scans are performed using dose optimization technique as appropriate and may include automated exposure control or mA/KV adjustment according to patient size. FINDINGS: Heart and lung base findings are detailed on separate report. There is substantial motion degradation involving the upper and mid portion of the abdomen and pelvis. The liver, spleen and pancreas show no suspicious findings on non-contrast imaging. Gallbladder is distended. Gallstones can be occult. Biliary tree is not dilated. Gallbladder wall thickening or edema cannot be accurately assessed due to the extent of motion. No hydronephrosis or suspicious renal mass. No obstructing or nonobstructing calculi seen. Patient has dense vascular calcifications. Urinary bladder is tightly contracted precluding accurate assessment. No bladder calculi seen. No significant adrenal finding. Isodense renal masses and pyelonephritis cannot be excluded in the absence of IV contrast. No acute gastric finding suspected. Large and small bowel loops are not dilated. Air is present in the appendix. Acute appendicitis is not suspected. The appendix is partially retrocecal. Moderate stool volume in the colon. [place] of the rectum are mildly prominent. Minimal sigmoid diverticulosis. No mass or bulky lymphadenopathy. No free air or pneumatosis. Small quantity of free fluid is present. Prominent disc and bony degenerative changes are present. There is extensive postsurgical change spanning the lower lumbar spine and sacrum. Advanced degenerative change is present involving the disc and endplates at L5-S1. There are bone resorption changes at L5 and S1. These changes are not substantially different from prior imaging. This is probably a combination of degenerative change an osteopenic change. Extent of hardware alters the mechanical loading of the lumbosacral junction. Review of prior imaging details a history of discitis/osteomyelitis in this region. Current findings do not indicate a progressive process at this location. . IMPRESSION: No bowel obstruction, free air or surgically emergent finding. [place]eralta of the rectum are prominent. Mild localized inflammatory process is possible. . Gallbladder is distended. Gallstones can be occult on CT imaging. Due to the extensive motion degradation, gallbladder wall thickening or edema cannot be evaluated. Biliary tree is normal. No acute finding. Urinary bladder is fully contracted limiting assessment. Extensive degenerative and postsurgical change near the lumbosacral junction. 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 Current findings are stable. Conclusions/Impression: A/ ESRD on HD TTS. Hypokalemia. HTN with CKD. A/C Diastolic CHF. Anemia in CKD. Hx GI bleed. JACOB/ Secondary HyperPTH. DM II with CKD. Hypoglycemia. AMS. Bipolar. Sepsis. P/ Continue current POC and Medications. Acute HD today as ordered. HD TIW. Give potassium today. DC IVF. DC Enalaprilat. Restart Nifedipine and Ramipril. Continue Epo. Transfuse as needed. Low sodium diet. AM labs. Daily weight. No NSAIDs. Case discussed with Dr. Norman.
[2018-03-25] MEDS ORDERED: POTASSIUM CL SA 10 MEQ TAB PO ONE (15:00)
[2018-03-25] MEDS: AMIODARONE HCL 200 MG TAB PO SCH ×2 (15:52→20:13)
--- NOTE | 2018-03-25 15:52 | RAD REPORT ---
EXAM DESCRIPTION: RAD - Barium Swallow Modified - 03/25/2018 3:47 pm CLINICAL HISTORY: Cough. COMPARISON: None. TECHNIQUE: The patient was given liquid, semi-solid and solid forms of barium. Lateral view fluorosc opic imaging was performed in conjunction with speech pathology service. FINDINGS: Aspiration: no cough, thin and nectar Mild pharyngeal residue: vallecular, with nectar, honey, pudding and cracker Other: Delayed Swallow Reflux, Reduced hyolaryngeal excursion
[2018-03-25] MEDS: ENOXAPARIN 30 MG/0.3 ML SQ SCH (16:41)
[2018-03-25] MEDS ORDERED: TRAMADOL HCL 50 MG TAB PO ONE (17:00)
[2018-03-25] MEDS: VANCOMYCIN 500 MG in NA CHLORIDE 0.9% 100 ML IVPB SCH (17:14)
[2018-03-25] MEDS: RAMIPRIL 5 MG CAP PO SCH (20:12)
[2018-03-25] MEDS: NIFEDIPINE XL 60 MG TABLET PO SCH (20:12)
[2018-03-25] MEDS: CARVEDILOL 6.25 MG TAB PO SCH (20:12)
[2018-03-26] MEDS: NITROGLYCERIN 1 GM PKT TD SCH ×4 (00:27→18:23)
[2018-03-26] MEDS: INSULIN -REGULAR HUMAN 50 UNIT/0.5 ML ML SQ SCH ×4 (07:30→21:00)
[2018-03-26] MEDS: ARFORMOTEROL TARTRATE 15 MCG/2 ML VIAL.NEB NEB SCH ×2 (08:23→20:20)
[2018-03-26] MEDS: NIFEDIPINE XL 60 MG TABLET PO SCH ×2 (09:08→21:04)
[2018-03-26] MEDS: ASPIRIN EC 81 MG TAB PO SCH (09:08)
[2018-03-26] MEDS: PANTOPRAZOLE 40 MG INJ IVP SCH ×2 (09:08→21:04)
[2018-03-26] MEDS: CARVEDILOL 6.25 MG TAB PO SCH ×2 (09:08→21:06)
[2018-03-26] MEDS: PIPER/TAZO/NS 2.25gm 2.25 GM/50 ML BAG IV SCH ×2 (09:08→21:04)
[2018-03-26] MEDS: AMIODARONE HCL 200 MG TAB PO SCH ×2 (09:08→21:06)
--- NOTE | 2018-03-26 11:34 | P.PN ---
Subjective Date of Service: 03/26/18 Primary Care Provider: Dr. George(penitentiary); Nephrology-Dr. Leavitt Chief Complaint: Altered mental status, pleural effusion Pt seen and examined at bedside. Chart Reviewed. Case DW with Cardiology and Nephrology. Pt is more alert today. AAOx 2. Sinus Rhythm now. No complains to offer. Review of Systems General: As per HPI Physical Examination - Vital Signs Temperature: 98.2 F Blood Pressure: 117/76 Pulse: 73 Respirations: 18 Pulse Ox (%): 99 - Physical Exam General: Alert, In no apparent distress, Oriented x3 HEENT: Atraumatic, PERRLA, EOMI Neck: Supple, JVD not distended Respiratory: Clear to auscultation bilaterally, Normal air movement Cardiovascular: Regular rate/rhythm, Normal S1 S2 Gastrointestinal: Normal bowel sounds, No tenderness Musculoskeletal: No tenderness Integumentary: No rashes Neurological: Normal speech, Normal tone, Normal affect Lymphatics: No axilla or inguinal lymphadenopathy - Studies Medications List Reviewed: Yes Assessment & Plan - Problems (Diagnosis) (1) Ventricular tachyarrhythmia Current Visit: Yes Status: Resolved Plan: Most Likely 2.2 to Infection vs Uremia. Now in Sinus rhythm -On amiodrone PO now -Cardiology consulted. Reccs Appreciated (2) Sepsis Onset Date: 05/28/17 Current Visit: No Status: Resolved Plan: Elevated WBC with Tachycardia. Possibility of aspiration -Sid with Patchy infiltrates. -Blood culture negative -On Vanc and zosyn for now -Improving today Qualifiers: Sepsis type: sepsis due to unspecified organism Qualified Code(s): A41.9 - Sepsis, unspecified organism (3) Altered mental status Onset Date: 03/21/18 Current Visit: Yes Status: Resolved Plan: Most likely 2.2 to hypoglycemia vs Bipolar vs Infection -Hypoglycemia is now resolved -On IV vanc and zosyn for now. Cxray with Possible aspiration PNA -Stop Geodon due to V.Tach and Hepatic Impairment. Qualifiers: Altered mental status type: disorientation Qualified Code(s): R41.0 - Disorientation, unspecified (4) Hypoglycemia associated with diabetes Onset Date: 03/21/18 Current Visit: Yes Status: Resolved Plan: See # 2 (5) Pulmonary edema Onset Date: 03/21/18 Current Visit: Yes Status: Acute Plan: Most likely 2.2 to Volume Overload. Improving today -Nephrology Consulted. Appreciate Reccs -HD for volume overload Qualifiers: Chronicity: acute Qualified Code(s): J81.0 - Acute pulmonary edema (6) COPD (chronic obstructive pulmonary disease) Current Visit: No Status: Chronic Qualifiers: COPD type: unspecified COPD Qualified Code(s): J44.9 - Chronic obstructive pulmonary disease, unspecified (7) Bipolar disorder Onset Date: 05/04/17 Current Visit: No Status: Chronic Plan: Will need to be restarted on different medication once medically stable. -Contact Medicaid for medication cost Qualifiers: Active/Remission status: remission status unspecified Qualified Code(s): F31.9 - Bipolar disorder, unspecified (8) CAD (coronary artery disease) Onset Date: 12/24/17 Current Visit: No Status: Chronic Qualifiers: Coronary Disease-Associated Artery/Lesion type: [place] artery [place] vs. transplanted heart: [place] heart Associated angina: without angina Qualified Code(s): I25.10 - Atherosclerotic heart disease of [place] coronary artery without angina pectoris (9) CHF (congestive heart failure) Onset Date: 12/24/17 Current Visit: No Status: Chronic Qualifiers: Heart failure type: unspecified Heart failure chronicity: chronic Qualified Code(s): I50.9 - Heart failure, unspecified (10) COPD (chronic obstructive pulmonary disease) Onset Date: 12/24/17 Current Visit: No Status: Chronic Qualifiers: COPD type: unspecified COPD Qualified Code(s): J44.9 - Chronic obstructive pulmonary disease, unspecified (11) Diabetes Onset Date: 12/24/17 Current Visit: No Status: Chronic Qualifiers: Diabetes mellitus type: type 2 Diabetes mellitus fpc insulin use: without terminal computer operator use Diabetes mellitus complication status: without complication Qualified Code(s): E11.9 - Type 2 diabetes mellitus without complications (12) ESRD (end stage renal disease) Onset Date: 12/24/17 Current Visit: No Status: Chronic (13) Hypertension Onset Date: 12/24/17 Current Visit: No Status: Chronic Qualifiers: Hypertension type: essential hypertension Qualified Code(s): I10 - Essential (primary) hypertension (14) Anemia Onset Date: 12/24/17 Current Visit: No Status: Chronic Plan: Chronic Anemia. -On Protonix BID -Hold Lovenox Qualifiers: Anemia type: due to chronic kidney disease Chronic kidney disease stage: on chronic dialysis Qualified Code(s): N18.6 - End stage renal disease; D63.1 - Anemia in chronic kidney disease; Z99.2 - Dependence on renal dialysis
[2018-03-26] MEDS ORDERED: NA CHLORIDE 0.9% 250 ML ONE (21:00)
[2018-03-26] MEDS: SODIUM CHLORIDE 0.9% 10ML INJ IV PRN (21:04)
[2018-03-26] MEDS: RAMIPRIL 5 MG CAP PO SCH (21:05)
[2018-03-26] MEDS: HYDROCODONE/APAP 7.5/325 MG TAB PO PRN (21:07)
[2018-03-27] MEDS: NITROGLYCERIN 1 GM PKT TD SCH ×5 (01:09→23:47)
[2018-03-27] MEDS: HYDRALAZINE HCL 20 MG/ML VIAL IV PRN ×2 (01:14→18:14)
[2018-03-27 03:20] LABS: HBsAG Nonreactive (Nonreactive); Hepatitis A IgM Antibody Nonreactive
[2018-03-27 05:17] LABS: Absolute Monocytes 1.7 K/uL (0.1-1.3); Absolute Neutrophil 12.2 K/uL (1.8-8.0); Basophils % 0.7 % (0-1.3); Eosinophils % 3.9 % (0-4.4); Lymphocytes % 6.4 % (15.3-44.8); MCH 27.4 pg (27.0-35.0); MCV 83.8 fL (80-100); MPV 8.6 fL (7.6-11.3); Monocytes % 10.9 % (3.3-12.3)
[2018-03-27 05:38] LABS: Phosphorus 2.8 mg/dL (2.5-4.3); Potassium 4.8 mEq/L (3.6-5.0); Uric Acid 6.2 mg/dL (4.8-8.7)
[2018-03-27] MEDS: INSULIN -REGULAR HUMAN 50 UNIT/0.5 ML ML SQ SCH ×4 (07:30→21:00)
[2018-03-27] MEDS: ARFORMOTEROL TARTRATE 15 MCG/2 ML VIAL.NEB NEB SCH ×2 (08:00→19:29)
[2018-03-27] MEDS: NIFEDIPINE XL 60 MG TABLET PO SCH ×2 (09:00→21:39)
[2018-03-27] MEDS: AMIODARONE HCL 200 MG TAB PO SCH ×2 (09:00→21:39)
[2018-03-27] MEDS: CARVEDILOL 6.25 MG TAB PO SCH ×2 (09:00→21:39)
[2018-03-27] MEDS: PANTOPRAZOLE 40 MG INJ IVP SCH ×2 (10:22→21:40)
[2018-03-27] MEDS: ASPIRIN EC 81 MG TAB PO SCH (10:22)
[2018-03-27] MEDS: PIPER/TAZO/NS 2.25gm 2.25 GM/50 ML BAG IV SCH (11:50)
[2018-03-27] MEDS: EPOETIN ALFA 10,000 UNIT/ML VIAL IV SCH (13:44)
--- NOTE | 2018-03-27 14:40 | P.PN ---
Subjective Date of Service: 03/27/18 Primary Care Provider: Dr. George(shelter); Nephrology-Dr. Leavitt Chief Complaint: Altered mental status, pleural effusion Pt seen and examined at bedside. Chart Reviewed. Case DW with Cardiology and Nephrology. Pt is more alert today. AAOx 3. Sinus Rhythm now. No complains to offer. Review of Systems General: As per HPI Physical Examination - Vital Signs Temperature: 98.1 F Blood Pressure: 137/64 Pulse: 66 Respirations: 20 Pulse Ox (%): 97 - Physical Exam General: Alert, In no apparent distress, Oriented x3 HEENT: Atraumatic, PERRLA, EOMI Neck: Supple, JVD not distended Respiratory: Clear to auscultation bilaterally, Normal air movement Cardiovascular: Regular rate/rhythm, Normal S1 S2 Gastrointestinal: Normal bowel sounds, No tenderness Musculoskeletal: No tenderness Integumentary: No rashes Neurological: Normal speech, Normal tone, Normal affect Lymphatics: No axilla or inguinal lymphadenopathy - Studies Medications List Reviewed: Yes Assessment & Plan - Problems (Diagnosis) (1) Ventricular tachyarrhythmia Current Visit: Yes Status: Resolved Plan: Most Likely 2.2 to Infection vs Uremia. Now in Sinus rhythm -On amiodrone PO now -Cardiology consulted. Reccs Appreciated (2) Sepsis Onset Date: 05/28/17 Current Visit: No Status: Resolved Plan: Elevated WBC with Tachycardia. Possibility of aspiration -Sid with Patchy infiltrates. -Blood culture negative -On Vanc and zosyn. Stop IV vanc and zosyn. PO Augmentin for aspiration PNA -Improving today -DC in 24 hrs Qualifiers: Sepsis type: sepsis due to unspecified organism Qualified Code(s): A41.9 - Sepsis, unspecified organism (3) Altered mental status Onset Date: 03/21/18 Current Visit: Yes Status: Resolved Plan: Most likely 2.2 to hypoglycemia vs Bipolar vs Infection -Hypoglycemia is now resolved -On IV vanc and zosyn. Switch to PO augmentin -Cxray with Possible aspiration PNA -Stop Geodon due to V.Tach and Hepatic Impairment. Qualifiers: Altered mental status type: disorientation Qualified Code(s): R41.0 - Disorientation, unspecified (4) Hypoglycemia associated with diabetes Onset Date: 03/21/18 Current Visit: Yes Status: Resolved Plan: See # 2 (5) Pulmonary edema Onset Date: 03/21/18 Current Visit: Yes Status: Acute Plan: Most likely 2.2 to Volume Overload. Improving today -Nephrology Consulted. Appreciate Reccs -HD for volume overload Qualifiers: Chronicity: acute Qualified Code(s): J81.0 - Acute pulmonary edema (6) COPD (chronic obstructive pulmonary disease) Current Visit: No Status: Chronic Qualifiers: COPD type: unspecified COPD Qualified Code(s): J44.9 - Chronic obstructive pulmonary disease, unspecified (7) Bipolar disorder Onset Date: 05/04/17 Current Visit: No Status: Chronic Plan: Will need to be restarted on different medication once medically stable. -Contact Medicaid for medication cost Qualifiers: Active/Remission status: remission status unspecified Qualified Code(s): F31.9 - Bipolar disorder, unspecified (8) CAD (coronary artery disease) Onset Date: 12/24/17 Current Visit: No Status: Chronic Qualifiers: Coronary Disease-Associated Artery/Lesion type: [place] artery [place] vs. transplanted heart: [place] heart Associated angina: without angina Qualified Code(s): I25.10 - Atherosclerotic heart disease of [place] coronary artery without angina pectoris (9) CHF (congestive heart failure) Onset Date: 12/24/17 Current Visit: No Status: Chronic Qualifiers: Heart failure type: unspecified Heart failure chronicity: chronic Qualified Code(s): I50.9 - Heart failure, unspecified (10) COPD (chronic obstructive pulmonary disease) Onset Date: 12/24/17 Current Visit: No Status: Chronic Qualifiers: COPD type: unspecified COPD Qualified Code(s): J44.9 - Chronic obstructive pulmonary disease, unspecified (11) Diabetes Onset Date: 12/24/17 Current Visit: No Status: Chronic Qualifiers: Diabetes mellitus type: type 2 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 -On Protonix BID -Hold Lovenox Qualifiers: Anemia type: due to chronic kidney disease Chronic kidney disease stage: on chronic dialysis Qualified Code(s): N18.6 - End stage renal disease; D63.1 - Anemia in chronic kidney disease; Z99.2 - Dependence on renal dialysis
--- NOTE | 2018-03-27 16:57 | P.PN ---
Date of Service: 03/27/18 Vital Signs Temp Pulse Resp BP Pulse Ox 98.1 F 66 20 137/64 97 03/27/18 14:40 03/27/18 14:40 03/27/18 14:40 03/27/18 14:40 03/27/18 14:40 Medications Hydrocodone Bitart/Acetaminophen ([place] 7.5/325 Mg) 1 tab PO Q6H PRN PRN Reason: PAIN Stop: 04/25/18 20:04 Last Admin: 03/26/18 21:07 Dose: 1 tab Albuterol Sulfate (Proventil 0.083% Neb Soln) 2.5 mg NEB [id number] PRN PRN Reason: SHORTNESS OF BREATH Stop: 04/19/18 20:01 Amiodarone HCl (Cordarone Tab) 200 mg PO BID RUBY Stop: 04/24/18 21:01 Last Admin: 03/26/18 21:06 Dose: 200 mg Arformoterol Tartrate (Brovana) 15 mcg NEB BIDRESP RUBY Stop: 04/19/18 20:01 Last Admin: 03/27/18 08:00 Dose: 15 mcg Aspirin (Aspirin Ec) 81 mg PO DAILY RUBY Stop: 04/20/18 09:01 Last Admin: 03/27/18 10:22 Dose: 81 mg Carvedilol (Coreg) 6.25 mg PO BID RUBY Stop: 04/24/18 21:01 Last Admin: 03/26/18 21:06 Dose: 6.25 mg Clindamycin HCl (Cleocin Cap) 300 mg PO Q6HR RUBY; Protocol Stop: 04/26/18 18:01 Dextrose (Dextrose 50% Syringe) 12.5 gm IV PRN PRN; Protocol PRN Reason: HYPOGLYCEMIA Stop: 04/19/18 18:53 Last Admin: 03/21/18 06:04 Dose: 12.5 gm Epoetin Jg (Procrit) 10,000 unit IV EVERY HD RUBY Stop: 04/19/18 18:31 Last Admin: 03/27/18 13:44 Dose: 10,000 unit Heparin Sodium (Porcine) (Heparin 1,000 Units/Ml) 6,000 unit IV EVERY HD PRN PRN Reason: FLUSH AFTER EACH USE Stop: 04/19/18 18:20 Last Admin: 03/22/18 11:29 Dose: 6,000 unit Hydralazine HCl (Apresoline) 20 mg IV Q6HP PRN PRN Reason: HIGH BP Stop: 04/19/18 16:54 Last Admin: 03/27/18 01:14 Dose: 20 mg Albumin Human (Albumin 25%) 50 mls @ 100 mls/hr IV EVERY HD RUBY Stop: 04/19/18 19:01 Insulin Human Regular (Novolin -R) 0 unit SQ ACHS RUBY; Protocol Stop: 04/19/18 21:01 Last Admin: 03/27/18 07:30 Dose: Not Given Ipratropium [place] (Atrovent Neb) 0.5 mg NEB [id number] PRN PRN Reason: SHORTNESS OF BREATH Stop: 04/19/18 20:01 Last Admin: 03/21/18 19:50 Dose: 0.5 mg Lorazepam (Ativan) 2 mg IV Q4H PRN PRN Reason: AGITATION Stop: 04/22/18 10:29 Mannitol (Mannitol 12.5 Gm/50 Ml Vial) 12.5 gm IV EVERY HD PRN PRN Reason: BP support at hemodialysis Stop: 04/19/18 18:20 Nifedipine (Procardia Xl) 60 mg PO BID RUBY Stop: 04/24/18 21:01 Last Admin: 03/26/18 21:04 Dose: 60 mg Nitroglycerin (Nitrol Oint) 1 gm TD Q6HR RUBY Stop: 04/20/18 00:01 Last Admin: 03/27/18 05:51 Dose: 1 gm Ondansetron HCl (Zofran) 4 mg IV Q6HP PRN PRN Reason: NAUSEA / VOMITING Stop: 04/19/18 16:54 Last Admin: 03/23/18 08:26 Dose: 4 mg Pantoprazole Sodium (Protonix Inj) 40 mg IVP BID RUBY Stop: 04/25/18 21:01 Last Admin: 03/27/18 10:22 Dose: 40 mg Ramipril (Altace) 10 mg PO BEDTIME RUBY Stop: 04/24/18 21:01 Last Admin: 03/26/18 21:05 Dose: 10 mg Sodium Chloride (Sodium Chloride 10 Ml Inj) 10 ml IV UD PRN PRN Reason: Diluant Stop: 04/19/18 16:54 Last Admin: 03/26/18 21:04 Dose: 10 ml Sterile Water (Sterile Water For Inj (10 Ml Vial)) 1.2 ml IM UD PRN PRN Reason: DILUTION OF MED Stop: 04/20/18 18:27 Last Admin: 03/23/18 08:26 Dose: 1.2 ml Sterile Water (Sterile Water For Inj (10 Ml Vial)) 1.2 ml IM UD PRN PRN Reason: DILUTION OF MED Stop: 04/21/18 10:49 Assessment/ Plan: Nephrology. Doing better today. Tolerating PO. CPS stable with CP or SOB. No acute events overnight. Vitals, medications, blood work and imaging reviewed in the chart. General: Cooperative. AAO. HEENT: Atraumatic Neck: Supple, No LAD Respiratory: Clear to auscultation bilaterally Cardiovascular: Regular rate/rhythm, No edema. Gastrointestinal: ND NT Musculoskeletal: No c/c/e Integumentary: No rashes, No cyanosis Neurological: Normal speech. Blood work reviewed in the chart. Hgb 8 Imagings Data: EXAM DESCRIPTION: CT - Abdomen Pelvis Wo Contrast - 03/20/2018 3:30 pm CLINICAL HISTORY: Abdominal pain COMPARISON: CT December 20 TECHNIQUE: Axial [address] imaging of the abdomen and pelvis was performed without IV contrast. No IV contrast was given because of allergy, abnormal renal function, patient refusal or physician request. No oral contrast administered. All CT scans are performed using dose optimization technique as appropriate and may include automated exposure control or mA/KV adjustment according to patient size. FINDINGS: Heart and lung base findings are detailed on separate report. There is substantial motion degradation involving the upper and mid portion of the abdomen and pelvis. The liver, spleen and pancreas show no suspicious findings on non-contrast imaging. Gallbladder is distended. Gallstones can be occult. Biliary tree is not dilated. Gallbladder wall thickening or edema cannot be accurately assessed due to the extent of motion. No hydronephrosis or suspicious renal mass. No obstructing or nonobstructing calculi seen. Patient has dense vascular calcifications. Urinary bladder is tightly contracted precluding accurate assessment. No bladder calculi seen. No significant adrenal finding. Isodense renal masses and pyelonephritis cannot be excluded in the absence of IV contrast. No acute gastric finding suspected. Large and small bowel loops are not dilated. Air is present in the appendix. Acute appendicitis is not suspected. The appendix is partially retrocecal. Moderate stool volume in the colon. Peralta of the rectum are mildly prominent. Minimal sigmoid diverticulosis. No mass or bulky lymphadenopathy. No free air or pneumatosis. Small quantity of free fluid is present. Prominent disc and bony degenerative changes are present. There is extensive postsurgical change spanning the lower lumbar spine and sacrum. Advanced degenerative change is present involving the disc and endplates at L5-S1. There are bone resorption changes at L5 and S1. These changes are not substantially different from prior imaging. This is probably a combination of degenerative change an osteopenic change. Extent of hardware alters the mechanical loading of the lumbosacral junction. Review of prior imaging details a history of discitis/osteomyelitis in this region. Current findings do not indicate a progressive process at this location. . IMPRESSION: No bowel obstruction, free air or surgically emergent finding. Peralta of the rectum are prominent. Mild localized inflammatory process is possible. . Gallbladder is distended. Gallstones can be occult on CT imaging. Due to the extensive motion degradation, gallbladder wall thickening or edema cannot be evaluated. Biliary tree is normal. No acute finding. Urinary bladder is fully contracted limiting assessment. Extensive degenerative and postsurgical change near the lumbosacral junction. 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 Current findings are stable. Conclusions/Impression: A/ ESRD on HD TTS. Hypokalemia. HTN with CKD. A/C Diastolic CHF. Anemia in CKD. Hx GI bleed. JACOB/ Secondary HyperPTH. DM II with CKD. Hypoglycemia. AMS. Bipolar. Sepsis. P/ Continue current POC and Medications. Acute HD today as ordered. HD TIW. Continue Epo. Transfuse as needed. Low sodium diet. AM labs. Daily weight. No NSAIDs.
[2018-03-27] MEDS: CLINDAMYCIN HCL 150 MG CAP PO SCH ×2 (18:14→23:46)
[2018-03-27] MEDS: RAMIPRIL 5 MG CAP PO SCH (21:39)
[2018-03-27] MEDS: SODIUM CHLORIDE 0.9% 10ML INJ IV PRN (21:40)
[2018-03-28] MEDS ORDERED: FUROSEMIDE 40 MG/4 ML VIAL IV ONE (04:44)
[2018-03-28 05:18] LABS: Arterial Blood Carboxyhemoglob 2.1 % (0-1.5); Blood Gas Oxyhemoglobin 91.6 % (94-97)
[2018-03-28] MEDS: NITROGLYCERIN 1 GM PKT TD SCH ×3 (05:18→18:10)
[2018-03-28 05:21] LABS: Absolute Lymphocytes (CBC) 1.3 K/uL (0.7-4.9); Absolute Monocytes 1.8 K/uL (0.1-1.3); Absolute Neutrophil 14.1 K/uL (1.8-8.0); Basophils % 0.6 % (0-1.3); Eosinophils % 4.2 % (0-4.4); Hematocrit 28.4 % (39.6-49.0); Lymphocytes % 7.4 % (15.3-44.8); MCH 26.5 pg (27.0-35.0); MCV 84.7 fL (80-100); MPV 8.2 fL (7.6-11.3); Monocytes % 9.9 % (3.3-12.3); RBC Red Blood Cell Count 3.36 M/uL (4.33-5.43)
[2018-03-28 05:53] LABS: Albumin 3.1 g/dL (3.2-5.5); Bilirubin Total 0.7 mg/dL (0.3-1.2); Phosphorus 2.7 mg/dL (2.5-4.3); Potassium 4.5 mEq/L (3.6-5.0); Protein, Total 6.7 g/dL (6.0-8.3)
--- NOTE | 2018-03-28 06:13 | RAD REPORT ---
EXAM DESCRIPTION: RAD - Chest Single View - 03/28/2018 5:14 am CLINICAL HISTORY: Congestion, shortness of breath COMPARISON: March 24 TECHNIQUE: AP portable chest image was obtained 0459 hours . FINDINGS: No new mass or consolidation. Lung bases are better aerated. Central vasculature has decre ased in prominence. Trachea is midline. Dialysis catheter remains in place. Heart and vasculature are normal. No measurable pleural effusion and no pneumothorax. No gross bony abnormality seen. No acute aortic findings suspected. IMPRESSION: CHF/volume overload pattern has resolved or mostly resolved. No new or progressive finding.
--- NOTE | 2018-03-28 07:15 | RAD REPORT ---
EXAM DESCRIPTION: CT - Head Brain Wo Cont - 03/28/2018 6:03 am CLINICAL HISTORY: Transient alteration of awareness. A preliminary written report was provided at the time of the study, and the report was reviewed prio r to final dictation. COMPARISON: CT study March 20, 2018 TECHNIQUE: Axial 5 mm thick images of the head were obtained without IV contrast. All CT scans are performed using dose optimization technique as appropriate and may include automated exposure control or mA/KV adjustment according to patient size. FINDINGS: No intracranial hemorrhage, mass, edema or shift of mid-line structures. No acute cortical based infarction. No cortical edema or sulcal effacement. Patient has moderate severity atrophy and chronic ischemic change. No abnormal extra-axial fluid collections. As noted previously, ventricles a ppear to be out of proportion to the amount of volume loss and could indicate normal pressure hydroce phalus. Correlation is needed with any history or corresponding exam findings. Mastoid air cells and visualized portions of the paranasal sinuses are clear. No acute bony findings. IMPRESSION: No acute cortical infarction. No hemorrhage, mass or acute intracranial finding. Moderate severity atrophy and chronic ischemic change with suspected normal pressure hydrocephalus. C orrelation is needed with any history or corresponding clinical exam findings.
[2018-03-28] MEDS: INSULIN -REGULAR HUMAN 50 UNIT/0.5 ML ML SQ SCH ×4 (07:30→20:33)
[2018-03-28] MEDS: ARFORMOTEROL TARTRATE 15 MCG/2 ML VIAL.NEB NEB SCH ×2 (07:42→19:34)
[2018-03-28] MEDS: CARVEDILOL 6.25 MG TAB PO SCH ×2 (08:17→20:31)
[2018-03-28] MEDS: PANTOPRAZOLE 40 MG INJ IVP SCH ×2 (08:17→20:30)
[2018-03-28] MEDS: AMIODARONE HCL 200 MG TAB PO SCH (08:18)
[2018-03-28] MEDS: CLINDAMYCIN HCL 150 MG CAP PO SCH ×3 (08:18→18:11)
[2018-03-28] MEDS: ASPIRIN EC 81 MG TAB PO SCH (08:18)
[2018-03-28] MEDS: NIFEDIPINE XL 60 MG TABLET PO SCH ×2 (08:19→20:33)
--- NOTE | 2018-03-28 13:47 | P.PN ---
Subjective Date of Service: 03/28/18 Primary Care Provider: Dr. George(prison); Nephrology-Dr. Leavitt Chief Complaint: Altered mental status, pleural effusion The patient is more sleepy today, no fever, BS WNL. Physical Examination - Vital Signs Temperature: 99 F Blood Pressure: 161/74 Pulse: 66 Respirations: 18 Pulse Ox (%): 96 - Physical Exam General: Unresponsive, Other (He is otunded no following commands) HEENT: Atraumatic, PERRLA, EOMI Neck: Supple, JVD not distended Respiratory: Diminished (coarse bilateral) Cardiovascular: Regular rate/rhythm, Normal S1 S2 Gastrointestinal: Normal bowel sounds, No tenderness Musculoskeletal: No tenderness Integumentary: No rashes Neurological: Normal tone, Sensation intact, Other (No following commands) - Studies Medications List Reviewed: Yes Assessment And Plan - Current Problems (Diagnosis) (1) Encephalopathy Onset Date: 03/21/18 Current Visit: Yes Status: Acute Plan: The patient is obtunded today, no fever, BS within normal limits, WBC remain elevated, ABG shows bir CO2 retention. CT head this morning shows no acute abnormalities, signs of chronic normal pressure hydrocephalus. Antibiotics were changed to oral yesterday. Will re-check ammonia level. Continue monitoring mental status. (2) Hypoglycemia associated with diabetes Onset Date: 03/21/18 Current Visit: Yes Status: Resolved Plan: No hypoglycemic episodes recently. Continue monitoring. (3) Ventricular tachyarrhythmia Current Visit: Yes Status: Resolved (4) Troponin level elevated Current Visit: No Status: Acute (5) Bipolar disorder Onset Date: 05/04/17 Current Visit: No Status: Chronic Qualifiers: Active/Remission status: remission status unspecified Qualified Code(s): F31.9 - Bipolar disorder, unspecified (6) Diabetes mellitus Onset Date: 05/04/17 Current Visit: No Status: Chronic Qualifiers: Diabetes mellitus type: type 2 Diabetes mellitus senior living insulin use: with senior living use Diabetes mellitus complication status: with hypoglycemia Diabetes mellitus complication detail: with coma Qualified Code(s): E11.641 - Type 2 diabetes mellitus with hypoglycemia with coma; Z79.4 - half-way (current ) use of insulin (7) ESRD (end stage renal disease) Onset Date: 02/14/18 Current Visit: No Status: Chronic Plan: Continue HD per Nephrology team. (8) Hypertension Onset Date: 12/24/17 Current Visit: No Status: Chronic Qualifiers: Hypertension type: essential hypertension Qualified Code(s): I10 - Essential (primary) hypertension - Plan The patient will continue to be hospitalized due to Encephalopathy. He is unresponsive today, etiology is not clear, he was more alert yesterday. Continue monitoring and work up. - Code Status/Comfort Care Code Status Assessed: Yes Code Status: Do Not Resuscitate
[2018-03-28] MEDS: RAMIPRIL 5 MG CAP PO SCH (20:30)
[2018-03-28] MEDS: SODIUM CHLORIDE 0.9% 10ML INJ IV PRN (20:32)
[2018-03-28] MEDS: HYDROCODONE/APAP 7.5/325 MG TAB PO PRN (20:32)
--- NOTE | 2018-03-28 20:38 | P.PN ---
Date of Service: 03/28/18 Vital Signs Temp Pulse Resp BP Pulse Ox 98.4 F 71 18 160/77 H 95 03/28/18 16:00 03/28/18 20:33 03/28/18 16:00 03/28/18 20:33 03/28/18 16:00 Medications Hydrocodone Bitart/Acetaminophen ([place] 7.5/325 Mg) 1 tab PO Q6H PRN PRN Reason: PAIN Stop: 04/25/18 20:04 Last Admin: 03/28/18 20:32 Dose: 1 tab Albuterol Sulfate (Proventil 0.083% Neb Soln) 2.5 mg NEB [id number] PRN PRN Reason: SHORTNESS OF BREATH Stop: 04/19/18 20:01 Amiodarone HCl (Cordarone Tab) 200 mg PO DAILY RUBY Stop: 04/27/18 09:01 Last Admin: 03/28/18 08:18 Dose: 200 mg Arformoterol Tartrate (Brovana) 15 mcg NEB BIDRESP RUBY Stop: 04/19/18 20:01 Last Admin: 03/28/18 19:34 Dose: 15 mcg Aspirin (Aspirin Ec) 81 mg PO DAILY RUBY Stop: 04/20/18 09:01 Last Admin: 03/28/18 08:18 Dose: 81 mg Carvedilol (Coreg) 6.25 mg PO BID RUBY Stop: 04/24/18 21:01 Last Admin: 03/28/18 20:31 Dose: 6.25 mg Clindamycin HCl (Cleocin Cap) 300 mg PO Q6HR RUBY; Protocol Stop: 04/26/18 18:01 Last Admin: 03/28/18 18:11 Dose: 300 mg Dextrose (Dextrose 50% Syringe) 12.5 gm IV PRN PRN; Protocol PRN Reason: HYPOGLYCEMIA Stop: 04/19/18 18:53 Last Admin: 03/21/18 06:04 Dose: 12.5 gm Epoetin Jg (Procrit) 10,000 unit IV EVERY HD RUBY Stop: 04/19/18 18:31 Last Admin: 03/27/18 13:44 Dose: 10,000 unit Heparin Sodium (Porcine) (Heparin 1,000 Units/Ml) 6,000 unit IV EVERY HD PRN PRN Reason: FLUSH AFTER EACH USE Stop: 04/19/18 18:20 Last Admin: 03/22/18 11:29 Dose: 6,000 unit Hydralazine HCl (Apresoline) 20 mg IV Q6HP PRN PRN Reason: HIGH BP Stop: 04/19/18 16:54 Last Admin: 03/27/18 18:14 Dose: 20 mg Albumin Human (Albumin 25%) 50 mls @ 100 mls/hr IV EVERY HD [facility] Stop: 04/19/18 19:01 Insulin Human Regular (Novolin -R) 0 unit SQ ACHS RUBY; Protocol Stop: 04/19/18 21:01 Last Admin: 03/28/18 20:33 Dose: Not Given Ipratropium [place] (Atrovent Neb) 0.5 mg NEB [id number] PRN PRN Reason: SHORTNESS OF BREATH Stop: 04/19/18 20:01 Last Admin: 03/21/18 19:50 Dose: 0.5 mg Mannitol (Mannitol 12.5 Gm/50 Ml Vial) 12.5 gm IV EVERY HD PRN PRN Reason: BP support at hemodialysis Stop: 04/19/18 18:20 Nifedipine (Procardia Xl) 60 mg PO BID [facility] Stop: 04/24/18 21:01 Last Admin: 03/28/18 20:33 Dose: 60 mg Nitroglycerin (Nitrol Oint) 1 gm TD Q6HR RUBY Stop: 04/20/18 00:01 Last Admin: 03/28/18 18:10 Dose: 1 gm Ondansetron HCl (Zofran) 4 mg IV Q6HP PRN PRN Reason: NAUSEA / VOMITING Stop: 04/19/18 16:54 Last Admin: 03/23/18 08:26 Dose: 4 mg Pantoprazole Sodium (Protonix Inj) 40 mg IVP BID [facility] Stop: 04/25/18 21:01 Last Admin: 03/28/18 20:30 Dose: 40 mg Ramipril (Altace) 10 mg PO BEDTIME RUBY Stop: 04/24/18 21:01 Last Admin: 03/28/18 20:30 Dose: 10 mg Sodium Chloride (Sodium Chloride 10 Ml Inj) 10 ml IV UD PRN PRN Reason: Diluant Stop: 04/19/18 16:54 Last Admin: 03/28/18 20:32 Dose: 10 ml Sterile Water (Sterile Water For Inj (10 Ml Vial)) 1.2 ml IM UD PRN PRN Reason: DILUTION OF MED Stop: 04/20/18 18:27 Last Admin: 03/23/18 08:26 Dose: 1.2 ml Sterile Water (Sterile Water For Inj (10 Ml Vial)) 1.2 ml IM UD PRN PRN Reason: DILUTION OF MED Stop: 04/21/18 10:49 Assessment/ Plan: Nephrology. Doing well. CPS stable with CP or SOB. Episode of unresponsiveness yesterday delayed discharge; etiology unclear. Vitals, medications, blood work and imaging reviewed in the chart. General: Cooperative. AAO. HEENT: Atraumatic Neck: Supple, No LAD Respiratory: Clear to auscultation bilaterally Cardiovascular: Regular rate/rhythm, No edema. Gastrointestinal: ND NT Musculoskeletal: No c/c/e Integumentary: No rashes, No cyanosis Neurological: Normal speech. Blood work reviewed in the chart. Hgb 8 Imagings Data: EXAM DESCRIPTION: CT - Abdomen Pelvis Wo Contrast - 03/20/2018 3:30 pm CLINICAL HISTORY: Abdominal pain COMPARISON: CT December 20 TECHNIQUE: Axial [address] imaging of the abdomen and pelvis was performed without IV contrast. No IV contrast was given because of allergy, abnormal renal function, patient refusal or physician request. No oral contrast administered. All CT scans are performed using dose optimization technique as appropriate and may include automated exposure control or mA/KV adjustment according to patient size. FINDINGS: Heart and lung base findings are detailed on separate report. There is substantial motion degradation involving the upper and mid portion of the abdomen and pelvis. The liver, spleen and pancreas show no suspicious findings on non-contrast imaging. Gallbladder is distended. Gallstones can be occult. Biliary tree is not dilated. Gallbladder wall thickening or edema cannot be accurately assessed due to the extent of motion. No hydronephrosis or suspicious renal mass. No obstructing or nonobstructing calculi seen. Patient has dense vascular calcifications. Urinary bladder is tightly contracted precluding accurate assessment. No bladder calculi seen. No significant adrenal finding. Isodense renal masses and pyelonephritis cannot be excluded in the absence of IV contrast. No acute gastric finding suspected. Large and small bowel loops are not dilated. Air is present in the appendix. Acute appendicitis is not suspected. The appendix is partially retrocecal. Moderate stool volume in the colon. Peralta of the rectum are mildly prominent. Minimal sigmoid diverticulosis. No mass or bulky lymphadenopathy. No free air or pneumatosis. Small quantity of free fluid is present. Prominent disc and bony degenerative changes are present. There is extensive postsurgical change spanning the lower lumbar spine and sacrum. Advanced degenerative change is present involving the disc and endplates at L5-S1. There are bone resorption changes at L5 and S1. These changes are not substantially different from prior imaging. This is probably a combination of degenerative change an osteopenic change. Extent of hardware alters the mechanical loading of the lumbosacral junction. Review of prior imaging details a history of discitis/osteomyelitis in this region. Current findings do not indicate a progressive process at this location. . IMPRESSION: No bowel obstruction, free air or surgically emergent finding. Peralta of the rectum are prominent. Mild localized inflammatory process is possible. . Gallbladder is distended. Gallstones can be occult on CT imaging. Due to the extensive motion degradation, gallbladder wall thickening or edema cannot be evaluated. Biliary tree is normal. No acute finding. Urinary bladder is fully contracted limiting assessment. Extensive degenerative and postsurgical change near the lumbosacral junction. 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 Current findings are stable. Conclusions/Impression: A/ ESRD on HD TTS. Hypokalemia. HTN with CKD. A/C Diastolic CHF. Anemia in CKD. Hx GI bleed. JACOB/ Secondary HyperPTH. DM II with CKD. Hypoglycemia. AMS. Bipolar. Sepsis. P/ Continue current POC and Medications. Acute HD tomorrow. HD TIW. Continue Epo. Transfuse as needed. Low sodium diet. AM labs. Daily weight. No NSAIDs.
[2018-03-29] MEDS: HYDRALAZINE HCL 20 MG/ML VIAL IV PRN (00:07)
[2018-03-29] MEDS: CLINDAMYCIN HCL 150 MG CAP PO SCH ×3 (00:07→12:00)
[2018-03-29] MEDS: NITROGLYCERIN 1 GM PKT TD SCH ×3 (00:32→12:00)
[2018-03-29 05:02] LABS: Absolute Lymphocytes (CBC) 1.3 K/uL (0.7-4.9); Absolute Monocytes 1.5 K/uL (0.1-1.3); Absolute Neutrophil 11.6 K/uL (1.8-8.0); Basophils % 0.9 % (0-1.3); Eosinophils % 4.8 % (0-4.4); Hematocrit 27.3 % (39.6-49.0); Lymphocytes % 8.2 % (15.3-44.8); MCV 85.3 fL (80-100); MPV 8.4 fL (7.6-11.3); Monocytes % 9.6 % (3.3-12.3); RBC Red Blood Cell Count 3.19 M/uL (4.33-5.43)
[2018-03-29 05:37] LABS: Potassium 5.2 mEq/L (3.6-5.0)
[2018-03-29] MEDS: INSULIN -REGULAR HUMAN 50 UNIT/0.5 ML ML SQ SCH ×2 (07:30→11:30)
[2018-03-29 07:55] VITALS: BMI 28.1
[2018-03-29] MEDS: ASPIRIN EC 81 MG TAB PO SCH (08:13)
[2018-03-29] MEDS: NIFEDIPINE XL 60 MG TABLET PO SCH (08:13)
[2018-03-29] MEDS: PANTOPRAZOLE 40 MG INJ IVP SCH (08:13)
[2018-03-29] MEDS: CARVEDILOL 6.25 MG TAB PO SCH (08:18)
[2018-03-29] MEDS: AMIODARONE HCL 200 MG TAB PO SCH (08:19)
[2018-03-29] MEDS: ARFORMOTEROL TARTRATE 15 MCG/2 ML VIAL.NEB NEB SCH (08:26)
[2018-03-29 11:06] VITALS: O2SAT 98
[2018-03-29] MEDS: EPOETIN ALFA 10,000 UNIT/ML VIAL IV SCH (11:06)
--- NOTE | 2018-03-29 16:48 | P.DS ---
Admission Date: 03/20/18 Discharge Date: 03/29/18 Primary Care Provider: Dr. George([facility]); Nephrology-Dr. Leavitt Disposition: TRANSFER TO [facility] Discharge Condition: FAIR Reason for Admission: Altered mental status, pleural effusion - Problems (1) Encephalopathy Onset Date: 03/21/18 Current Visit: Yes Status: Acute (2) Pneumonia Onset Date: 03/21/18 Current Visit: Yes Status: Acute (3) Pulmonary edema Onset Date: 03/21/18 Current Visit: Yes Status: Acute Qualifiers: Chronicity: acute Qualified Code(s): J81.0 - Acute pulmonary edema (4) Altered mental status Onset Date: 03/21/18 Current Visit: Yes Status: Resolved Qualifiers: Altered mental status type: disorientation Qualified Code(s): R41.0 - Disorientation, unspecified (5) Hypoglycemia associated with diabetes Onset Date: 03/21/18 Current Visit: Yes Status: Resolved (6) Ventricular tachyarrhythmia Current Visit: Yes Status: Resolved (7) CAD (coronary artery disease) Onset Date: 12/24/17 Current Visit: No Status: Chronic Qualifiers: Coronary Disease-Associated Artery/Lesion type: [place] artery [place] vs. transplanted heart: k[place]ze heart Associated angina: without angina Qualified Code(s): I25.10 - Atherosclerotic heart disease of [place] coronary artery without angina pectoris (8) CHF (congestive heart failure) Onset Date: 12/24/17 Current Visit: No Status: Chronic Qualifiers: Heart failure type: unspecified Heart failure chronicity: chronic Qualified Code(s): I50.9 - Heart failure, unspecified (9) COPD (chronic obstructive pulmonary disease) Onset Date: 12/24/17 Current Visit: No Status: Chronic Qualifiers: COPD type: unspecified COPD Qualified Code(s): J44.9 - Chronic obstructive pulmonary disease, unspecified (10) Diabetes mellitus Onset Date: 05/04/17 Current Visit: No Status: Chronic Qualifiers: Diabetes mellitus type: type 2 Diabetes mellitus skilled nursing insulin use: with skilled nursing use Diabetes mellitus complication status: with hypoglycemia Diabetes mellitus complication detail: with coma Qualified Code(s): E11.641 - Type 2 diabetes mellitus with hypoglycemia with coma; 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 AMS is likely due to hypoglycemia vs Bipolar vs Infection or metabolic encephalopathy. His mental status is normal today and back to his baseline. He was treated with Zosyn , then Clindamycin for aspiration PNA. He developed ventricular tachycardia amnd was treated with amiodarone. HD was continued. Overal his condition is much improved. Vital Signs/Physical Exam: Temp Pulse Resp BP Pulse Ox 98.2 F 70 18 122/62 98 03/29/18 12:00 03/29/18 12:00 03/29/18 12:00 03/29/18 12:00 03/29/18 12:00 General: Alert, In no apparent distress, Oriented x2 HEENT: Atraumatic, PERRLA, EOMI Neck: Supple, JVD not distended Respiratory: Clear to auscultation bilaterally, Normal air movement Cardiovascular: Regular rate/rhythm, Normal S1 S2 Gastrointestinal: Normal bowel sounds, No tenderness Musculoskeletal: No tenderness Integumentary: No rashes Neurological: Normal speech, Normal tone, Normal affect Lymphatics: No axilla or inguinal lymphadenopathy Laboratory Data at Discharge: WBC 15.2 K/uL (4.3-10.9) H D 03/29/18 04:25 Hgb 8.6 g/dL (13.6-17.9) L 03/29/18 04:25 Hct 27.3 % (39.6-49.0) L 03/29/18 04:25 Plt Count 199 K/uL (152-406) 03/29/18 04:25 PT 13.9 SECONDS (9.5-12.5) H 03/20/18 12:52 INR 1.18 03/20/18 12:52 APTT 36.5 SECONDS (24.3-36.9) 03/20/18 12:52 Sodium 137 mEq/L (135-145) 03/29/18 04:25 Potassium 5.2 mEq/L (3.6-5.0) H 03/29/18 04:25 BUN 31 mg/dL (6-20) H 03/29/18 04:25 Creatinine 5.13 mg/dL (0.61-1.24) H* D 03/29/18 04:25 Glucose 106 mg/dL (65-120) 03/29/18 04:25 Uric Acid 6.2 mg/dL (4.8-8.7) D 03/27/18 04:10 Phosphorus 2.7 mg/dL (2.5-4.3) 03/28/18 05:05 Magnesium 2.0 mg/dL (1.8-2.5) 03/28/18 05:05 Total Bilirubin 0.7 mg/dL (0.3-1.2) 03/28/18 05:05 AST 16 IU/L (10-42) 03/28/18 05:05 ALT 48 IU/L (10-60) 03/28/18 05:05 Alkaline Phosphatase 71 IU/L (42-121) 03/28/18 05:05 Troponin I 2.45 ng/mL (<0.03) H* 03/21/18 07:08 B-Natriuretic Peptide 7993 pg/ml (<=100) H 03/20/18 12:52 Triglycerides 75 mg/dL (35-160) 03/21/18 04:53 Cholesterol 111 mg/dL (<200) 03/21/18 04:53 HDL Cholesterol 50 mg/dL (27-67) 03/21/18 04:53 Cholesterol/HDL Ratio 2.22 03/21/18 04:53 Home Medications: Albuterol Inhaler [Ventolin Inhaler*] 1 puff IH QID 02/09/18 Furosemide 40 mg PO BID 02/09/18 Gabapentin [Neurontin*] 100 mg PO BID 02/09/18 Hydrocodone Bit/Acetaminophen [Hydrocodon-Acetaminoph 7.5-325] 1 each PO Q6HP PRN 02/09/18 Ipratropium/Albuterol Sulfate [Iprat-Albut 0.5-3(2.5) mg/3 ml] 3 ml IH Q6HP PRN 02/09/18 fentaNYL [Fentanyl] 25 mcg TD Q72H 02/09/18 Atorvastatin Calcium [Lipitor*] 1 tab PO BEDTIME 02/10/18 Calcitriol [Rocaltrol] 1 cap PO DAILY 02/10/18 Folic Acid 1 mg PO DAILY 02/10/18 Ondansetron HCl 4 mg PO Q6HR PRN 02/10/18 ALPRAZolam [Xanax*] 0.5 mg PO Q6H PRN 03/20/18 Aspirin Chewable [Aspirin Chewable*] 81 mg PO DAILY 03/20/18 Glucagon HCl 1 mg IM PRN PRN 03/20/18 Pantoprazole [Protonix Tab*] 40 mg PO DAILY 03/20/18 Albuterol Neb [Proventil 0.083% Neb Soln] 2.5 mg NEB [id number] PRN amp 03/29/18 Amiodarone HCl [Cordarone*] 200 mg PO DAILY #30 tab 03/29/18 Arformoterol Tartrate [Brovana] 15 mcg NEB BIDRESP #30 vial.neb 03/29/18 Carvedilol [Coreg*] 6.25 mg PO BID #60 tab 03/29/18 Clindamycin HCl [Cleocin HCl *] 300 mg PO Q6HR #30 cap 03/29/18 Ipratropium Neb [Atrovent*] 0.5 mg NEB [id number] PRN #30 amp 03/29/18 Nifedipine Xl [Procardia XL*] 60 mg PO BID #60 tab 03/29/18 Ramipril [Altace*] 10 mg PO BEDTIME #30 cap 03/29/18 New Medications: Amiodarone HCl [Cordarone*] 200 mg PO DAILY #30 tab Arformoterol Tartrate [Brovana] 15 mcg NEB BIDRESP #30 vial.neb Carvedilol [Coreg*] 6.25 mg PO BID #60 tab Clindamycin HCl [Cleocin HCl *] 300 mg PO Q6HR #30 cap Ipratropium Neb [Atrovent*] 0.5 mg NEB [id number] PRN #30 amp PRN Reason: Shortness Of Breath Nifedipine Xl [Procardia XL*] 60 mg PO BID #60 tab Ramipril [Altace*] 10 mg PO BEDTIME #30 cap Diet: Renal Activity: Ad summer Followup: Shekhar Leavitt DO [ACTIVE - CAN ADMIT] - Time spent managing pt's care (in minutes): 35
[2018-03-29 17:05] VITALS: BP 131/60; TEMP 99.1
--- NOTE | 2018-03-29 19:51 | P.PN ---
Date of Service: 03/29/18 Vital Signs Temp Pulse Resp BP Pulse Ox 99.1 F 68 18 131/60 98 03/29/18 16:00 03/29/18 16:00 03/29/18 16:00 03/29/18 16:00 03/29/18 16:00 Assessment/ Plan: Nephrology. Doing well. CPS stable with CP or SOB. Seen and examined on HD. Vitals, medications, blood work and imaging reviewed in the chart. General: Cooperative. AAO. HEENT: Atraumatic Neck: Supple, No LAD Respiratory: Clear to auscultation bilaterally Cardiovascular: Regular rate/rhythm, No edema. Gastrointestinal: ND NT Musculoskeletal: No c/c/e Integumentary: No rashes, No cyanosis Neurological: Normal speech. Blood work reviewed in the chart. Hgb 8 Imagings Data: EXAM DESCRIPTION: CT - Abdomen Pelvis Wo Contrast - 03/20/2018 3:30 pm CLINICAL HISTORY: Abdominal pain COMPARISON: CT December 20 TECHNIQUE: Axial [address] imaging of the abdomen and pelvis was performed without IV contrast. No IV contrast was given because of allergy, abnormal renal function, patient refusal or physician request. No oral contrast administered. All CT scans are performed using dose optimization technique as appropriate and may include automated exposure control or mA/KV adjustment according to patient size. FINDINGS: Heart and lung base findings are detailed on separate report. There is substantial motion degradation involving the upper and mid portion of the abdomen and pelvis. The liver, spleen and pancreas show no suspicious findings on non-contrast imaging. Gallbladder is distended. Gallstones can be occult. Biliary tree is not dilated. Gallbladder wall thickening or edema cannot be accurately assessed due to the extent of motion. No hydronephrosis or suspicious renal mass. No obstructing or nonobstructing calculi seen. Patient has dense vascular calcifications. Urinary bladder is tightly contracted precluding accurate assessment. No bladder calculi seen. No significant adrenal finding. Isodense renal masses and pyelonephritis cannot be excluded in the absence of IV contrast. No acute gastric finding suspected. Large and small bowel loops are not dilated. Air is present in the appendix. Acute appendicitis is not suspected. The appendix is partially retrocecal. Moderate stool volume in the colon. Peralta of the rectum are mildly prominent. Minimal sigmoid diverticulosis. No mass or bulky lymphadenopathy. No free air or pneumatosis. Small quantity of free fluid is present. Prominent disc and bony degenerative changes are present. There is extensive postsurgical change spanning the lower lumbar spine and sacrum. Advanced degenerative change is present involving the disc and endplates at L5-S1. There are bone resorption changes at L5 and S1. These changes are not substantially different from prior imaging. This is probably a combination of degenerative change an osteopenic change. Extent of hardware alters the mechanical loading of the lumbosacral junction. Review of prior imaging details a history of discitis/osteomyelitis in this region. Current findings do not indicate a progressive process at this location. . IMPRESSION: No bowel obstruction, free air or surgically emergent finding. Peralta of the rectum are prominent. Mild localized inflammatory process is possible. . Gallbladder is distended. Gallstones can be occult on CT imaging. Due to the extensive motion degradation, gallbladder wall thickening or edema cannot be evaluated. Biliary tree is normal. No acute finding. Urinary bladder is fully contracted limiting assessment. Extensive degenerative and postsurgical change near the lumbosacral junction. 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 Current findings are stable. Conclusions/Impression: A/ ESRD on HD TTS. Hypokalemia. HTN with CKD. A/C Diastolic CHF. Anemia in CKD. Hx GI bleed. JACOB/ Secondary HyperPTH. DM II with CKD. Hypoglycemia. AMS. Bipolar. Sepsis. P/ Continue current POC and Medications. Acute HD today as ordered. HD TIW. Continue Epo. Transfuse as needed. Low sodium diet. AM labs. Daily weight. No NSAIDs.
--- NOTE | 2018-03-30 02:48 | CON ---
Date of Consultation: 03/28/2018 Reason For Consultation: Sick sinus syndrome and pauses. History Of Present Illness: Mr. Martinez is a 57-year-old -[place] Citizen male, who is a DNR. He has a history of severe cardiomyopathy. He was on amiodarone for atrial fibrillation, was taking 200 mg one p.o. b.i.d. He has a history of hypertension, dyslipidemia, renal insufficiency. He apparently had a 5-second pause while he was asleep without any hemodynamic compromise and I was asked to consul t in that regard. Past Medical History: As stated above. Allergies: NONE. Review of Systems: Negative. Social History: Negative. Family History: Noncontributory. Medications: Not listed by Dr. Monzon. Physical Examination: Vital Signs: Stable. He is in sinus rhythm to sinus shy. HEENT: Negative. Neck: Supple, no bruit. Chest: Clear. Cardiac: Exam revealed a regular rhythm and rate with S3 gallops. Abdomen: Benign. Extremities: Revealed trace edema. Diagnostic Data: From cardiac standpoint was unremarkable. Impression And Plan: Chronic atrial fibrillation that has resolved. He is on amiodarone 200 b.i.d., which is a high dose considering his renal insufficiency and other medical problems. I would defini tely decrease the dose to 200 mg daily that may be the cause of his pauses. was not hemod ynamically compromised. The patient is a DNR and is not a candidate for pacemaker. We will observe his rhythm off the amiodarone. His other problems seem to be stable at this point. TOYA/BG Voice ID: [id number] Report ID: [id number]
== END 2018-03-29 17:10 | DRG 177 ==
LOC: ER 12:40 → ERHOLD 16:53 → 3RD-ICU 18:08 → 2ND 03-26 12:00
PROVIDERS: ADMIT Family Medicine; ATTEND Internal Medicine
PROC: 02HV33Z Insertion of Infusion Device into Superior Vena Cava, Percutaneous Approach (ICD-10-PCS; principal; 2018-03-24)
DX: J69.0 Pneumonitis due to inhalation of food and vomit (principal); I50.33 Acute on chronic diastolic (congestive) heart failure; G93.41 Metabolic encephalopathy; N18.6 End stage renal disease; I13.2 Hypertensive heart and chronic kidney disease with heart failure and with stage 5 chronic kidney disease, or end stage renal disease; G91.2 (Idiopathic) normal pressure hydrocephalus; I47.2 Ventricular tachycardia; I67.4 Hypertensive encephalopathy; N25.81 Secondary hyperparathyroidism of renal origin; E11.649 Type 2 diabetes mellitus with hypoglycemia without coma; I48.2 Chronic atrial fibrillation; E87.6 Hypokalemia; E11.22 Type 2 diabetes mellitus with diabetic chronic kidney disease; E78.5 Hyperlipidemia, unspecified; K21.9 Gastro-esophageal reflux disease without esophagitis; G25.81 Restless legs syndrome; J44.9 Chronic obstructive pulmonary disease, unspecified; D63.1 Anemia in chronic kidney disease; I25.10 Atherosclerotic heart disease of native coronary artery without angina pectoris; F31.9 Bipolar disorder, unspecified; G89.29 Other chronic pain; F20.9 Schizophrenia, unspecified; I44.7 Left bundle-branch block, unspecified; R41.0 Disorientation, unspecified; Z99.2 Dependence on renal dialysis
CPT/HCPCS: 36415; 70450; 71045; 71250; 74176; 74230; 80048; 80053; 80061; 80074; 80076; 80202; 82140; 82533; 82550; 82553; 82805; 82962; 83735; 83880; 84100; 84484; 84550; 85025; 85610; 85730; 87040; 87070; 87205; 90935; 93005; 93306; 94640; 99285; C9113; J0282; J0360; J1160; J1650; J2405; J2543; J3370; J3486; J7060; J7605; Q4081

== ENCOUNTER 2018-04-08 01:39 | Observation (INO) | payer MEDICAID ==
--- OUTSIDE RECORDS SUMMARY | 2018-04-08 01:42 | XMS REPORT | Clinical Summary ---
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 Paraplegic spinal paralysis ([facility]) 12/26/2016 Sacral decubitus ulcer 12/26/2016 ESRD on hemodialysis ([facility]) 12/26/2016 Acute bilateral low back pain without sciatica 11/30/2016 Back pain 11/29/2016 Complications, dialysis, catheter, mechanical ([facility]) 04/06/2016 Angina effort ([facility]) 09/04/2014 CAD (coronary artery disease) 09/04/2014 Social History Tobacco Use Types Packs/Day Years Used Date Former Smoker 0 Alcohol Use Drinks/Week oz/Week Comments No Sex Assigned at Date Recorded Not on file Last Filed Vital Signs Not on file Plan of Treatment Not on file Implants Implanted Type Area Manager Of Case Management Device Expiration Model / Identifier Date Serial / Lot Infusion Set Bone Infuseii Lg [id number] - [id number] Bone N/A: MEDTRONIC: SPINAL 08/22/2018 [id number] / Implanted: Qty: 1 on 12/12/2016 by Eduardo Ruggiero MD Spine BIOLOGICS / Lumbar [id number] Matrix Floseal Hemo W/O Ndl 10 [id number] - [id number] Cement/Fi N/A: MA: BIOSCI 04/20/2019 [id number] / Implanted: Qty: 2 on 12/12/2016 by Eduardo Ruggiero MD ller/Terrance Spine / sive Lumbar [id number] Bone Putty Stimulan [facility] 620-010 - [id number] Cement/Fi N/A: BIOCOMPOSITES 08/21/2019 [id number] / Implanted: Qty: 1 on 12/12/2016 by Eduardo Ruggiero MD ller/Terrance Spine / sive Lumbar 08/06-R300/301 Connector Set Screw Joints N/A: MEDTRONIC [id number] / Implanted: Qty: 1 on 12/12/2016 by Eduardo Ruggiero MD Spine / Lumbar Scr Mas 8.5x90 [id number] - [id number] Spine N/A: MEDTRONIC:SPINE: [id number] / Implanted: Qty: 1 on 12/12/2016 by Eduardo Ruggiero MD Spine SOFAMOR DANEK / Lumbar [id number] Ballast Mas 8.5x80 Spine N/A: MEDTRONIC [id number] / Implanted: Qty: 1 on 12/12/2016 by Eduardo Ruggiero MD Spine / Lumbar [id number] Taco [id number] Spine N/A: MEDTRONIC [id number] / Implanted: Qty: 2 on 12/12/2016 by Eduardo Ruggiero MD Spine / Lumbar [id number] Connector 20mm Spine N/A: MEDTR[employer]IC [id number] / Implanted: Qty: 1 on 12/12/2016 by Eduardo Ruggiero MD Spine / Lumbar Medtronic Sofamor Danek 10cc Sprinal Graft Spine N/A: MEDTRONIC 2017 [id number] / Implanted: Qty: 1 on 12/12/2016 by Eduardo Ruggiero MD Spine [id number] / Lumbar Medtronic Sofamor Daek Orthoblend Small 10cc Spine N/A: MEDTRONIC 2017 [id number] / Implanted: Qty: 1 on 12/12/2016 by Eduardo Ruggiero MD Spine [id number] / Lumbar Medtronic Sofarmor Danek Orthoblend Small 10cc Spine N/A: MEDTR[employer]IC [id number] / Implanted: Qty: 1 on 12/12/2016 by Eduardo Ruggiero MD Spine [id number] / Lumbar Screw Set Ti Ns Brk Off 5.5 - [id number] Spine N/A: MEDTR[employer]IC:SPINAL [id number] / Implanted: Qty: 6 on 12/12/2016 by Eduardo Ruggiero MD Spine BIOLOGICS / Lumbar [id number] Screw Mas Cc 7.5x50 [id number] - [id number] Spine N/A: [employer]TR[employer]IC:SPINAL [id number] / Implanted: Qty: 2 on 12/12/2016 by Eduardo Ruggiero MD Spine BIOLOGICS / Lumbar [id number] Screw [facility] Cc 7.5 X 45 [id number] - [id number] Spine N/A: [employer]IC:SPINAL [id number] / Implanted: Qty: 2 on 12/12/2016 by Eduardo Ruggiero MD Spine BIOLOGICS / Lumbar [id number] Results Not on fileafter 04/07/2017
--- OUTSIDE RECORDS SUMMARY | 2018-04-08 01:45 | XMS REPORT ---
:1960 [facility] [address] [place] [address] Care Team Providers Name Role Phone KENJUA NALBERTO MARYELLEN Crowley Unavailable Unavailable JESSIKA HUMPHREY Unavailable Unavailable Problems This patient has no known problems. Allergies, Adverse Reactions, Alerts This patient has no known allergies or adverse reactions. Medications This patient has no known medications. Results Test Description Test Time Test Comments Text Results Atomic Results Result Comments METHYLMALONIC ACID 2017-06-21 07:36:00 Test Item Value Reference Range Comments METHYLMALONIC ACID, SERUM (test jhxh=[id number]) 603 nmol/L 0-378 PERFORMED AT: [facility] [id number] REFINERY OPERATOR HELPER: Donnie Youssef MD PHONE: [phone], [id number] 06:50:00To start 15mins after 1st cultureSpecimen: BloodCollected: 2016 01:33 Status: Final Last Updated: 06/21/2017 06:49 (1) To start 15mins after 1st culture Culture Result (Final) (Final) No Growth After 5 DaysCULTURE, [id number] 06:50:00Specimen: BloodCollected: 06/16/2017 01: 20 Status: Final Last Updated: 06/21/2017 06:49 Culture Result (Final) ( Final) No Growth After 5 [id number] 09:05:00 Test Item Value Reference Range Comments [...] mL/min/1.73m\\S\\2 EGFR if Non- 17 Estimated Glomerular Nigerian (test mL/min/1.73m\\S\\2 Filtration Rate (eGFR) code=EGFRNA) Reference [...] of chronic kidney failure. CBC WITH AUTO [id number] 08:50:00 Test Item Value Reference Range Comments [...] code=IG%) 0.7 % 0.0-0.4 CBC WITH AUTO [id number] 01:49:00 Test Item Value Reference Range Comments [...] code=IG%) 0.9 % 0.0-0.4 CBC WITH AUTO [id number] 20:08:00 Test Item Value Reference Range Comments [...] code=IG%) 0.7 % 0.0-0.4 CBC WITH AUTO [id number] 13:58:00 Test Item Value Reference Range Comments [...] 1.0-3.0 IG% (test code=IG%) 0.7 % 0.0-0.4 [id number] 09:14:00 Test Item Value Reference Range Comments [...] mL/min/1.73m\\S\\2 EGFR if Non- 16 Estimated Glomerular Nigerian (test mL/min/1.73m\\S\\2 Filtration Rate (eGFR) code=EGFRNA) Reference [...] of chronic kidney failure. CBC WITH AUTO [id number] 09:05:00 Test Item Value Reference Range Comments [...] code=IG%) 0.7 % 0.0-0.4 CBC WITH AUTO [id number] 02:17:00 Test Item Value Reference Range Comments [...] code=IG%) 0.7 % 0.0-0.4 CBC WITH AUTO [id number] 20:02:00 Test Item Value Reference Range Comments [...] code=IG%) 0.8 % 0.0-0.4 CBC WITH AUTO [id number] 14:17:00 Test Item Value Reference Range Comments [...] 1.0-3.0 IG% (test code=IG%) 0.9 % 0.0-0.4 [id number] 08:47:00 Test Item Value Reference Range Comments Magnesium (test code=MG) 1.9 mg/dl 1.6-2.3 [id number] 08:47:00 Test Item Value Reference Range Comments [...] mL/min/1.73m\\S\\2 EGFR if Non- 17 Estimated Glomerular Nigerian (test mL/min/1.73m\\S\\2 Filtration Rate (eGFR) code=EGFRNA) Reference [...] of chronic kidney failure. CBC WITH AUTO [id number] 08:22:00 Test Item Value Reference Range Comments [...] code=IG%) 0.8 % 0.0-0.4 CBC WITH AUTO [id number] 03:42:00 Test Item Value Reference Range Comments [...] on ############### was changed to 1 by [id number] on 06/17/2017 03:42 Neutrophils (test 68 % 42-75 The value no value code=NEUTR) originally released by on ############### was changed to 68 by [id number] on 06/17/2017 03:42 Lymphocytes (test 16 % 13-42 The value no value code=LYMPH) originally released by on ############### was changed to 16 by [id number] on 06/17/2017 03:42 Monocytes (test 11 % 4-14 The value no value code=MONOS) originally released by on ############### was changed to 11 by [id number] on 06/17/2017 03:42 Eosinophils (test 3 % 1-3 The value no value code=EOS) originally released by on ############### was changed to 3 by [id number] on 06/17/2017 03:42 Basophils (test 1 % 0-1 The value no value code=BASO) originally released by on ############### was changed to 1 by [id number] on 06/17/2017 03:42 RBC Morphology (test Anisocytosis The value no value code=RBCMOR) Hypochromic originally released by on ############### was changed to Anisocytosis Hypochromic by [id number] on 06/17/2017 03:42 Platelet Morphology Giant platelets The value no value (test code=PLTMORPH) originally released by on ############### was changed to Giant platelets by [id number] on 06/17/2017 03:42 CBC WITH AUTO [id number] 19:54:00 Test Item Value Reference Range Comments [...] code=IG%) 0.8 % 0.0-0.4 CBC WITH AUTO [id number] 14:30:00 Test Item Value Reference Range Comments [...] code=IG%) 1.0 % 0.0-0.4 CBC WITH AUTO [id number] 07:35:00 Test Item Value Reference Range Comments [...] code=IG%) 1.2 % 0.0-0.4 HEP B SURFACE [id number] 07:14:00 Test Item Value Reference Range Comments [...] code=HBSAG) Negative (qualifier Negative value) TYPE & [id number] 04:15:00 Test Item Value Reference Range Comments ABO Blood Type (test code=ABO) O Rh (test code=RH) Positive Antibody Screen (test code=ABSCR) Negative Negative ARMBAND# (test code=ARMBAND) [id number] PRO-BNP(B-Type Natriuretic Peptide)2017-06-16 03:42:00 Test Item Value Reference Range Comments Pro-BNP(B-Peptide) 96662 pg/ml 0-125 THE METHODOLOGY FOR DETECTION OF [...] TIBC (test code=TIBC) 161 ug/dl 178-500 B12, [id number] 03:32:00 Test Item Value Reference Range Comments B12 (test code=B12) 717 pg/ml 239-941 [id number] 03:32:00 Test Item Value Reference Range Comments Folic Acid (test code=FOLIC) 5.35 ng/ml 2.76-20.00 IRON [id number] 03:32:00 Test Item Value Reference Range Comments Iron (test code=FETOT) 33 ug/dl 20-149 TIBC (test code=TIBC) 161 ug/dl 178-500 Iron Saturation (test code=FESAT) 20 % 16-62 [id number] 03:05:00 Test Item Value Reference Range Comments [...] (test code=BGCTHB) 9.6 gm/dl 11.5-17.4 O2Hb (test code=RNUT0QT) 94.7 % 95.0-99.0 COHb (test code=BGFCOHB) <2.8 [...] Notified (test code=BGTMNOTIFIED) 03:03 O2 Device (test code=JKH0FQD5) ROOM AIR Instrument ID (test code=BGINSTRID) [id number] Reported By (test code=BGREPORTEDBY) LUCY GAMBLE GLYCOSALATED [id number] 02:39:00 Test Item Value Reference Range Comments Hemoglobin A1C (test 5.78 % 4.3-6.0 code=GLYCO) Mean Plasma Glucose (test 128 mg/dl 90-180 WHEN TEST RESULTS FOR A1C code=MPG) EXCEED 14.0, THE LINEAR LIMIT OF THE INSTRUMENT, THE CALCULATED RESULT FOR THE MEAN GLUCOSE IS NOT RELIABLE. CORONARY [id number] 02:22:00 Test Item Value Reference Range Comments [...] vLDL (test code=VLDL) 16 mg/dl 30-60 VANCOMYCIN, [id number] 02:19:00 Test Item Value Reference Range Comments Vancomycin, Trough (test 7.7 ug/ml 15.0-20.0 05/13/2009 Change in Therapeutic code=VANCT) Range, for Trough Level, has been implemented per P&T committee. INTERPRETATION GUIDE: CONSIDER SENSITIVITY REPORT IF NGUYEN IS=1 THERAPEUTIC RANGE IS 15-20 ug/ml IF NGUYEN IS > OR=2 CONSIDER ALTERNATE THERAPY [id number] 02:05:00 Test Item Value Reference Range Comments [...] mL/min/1.73m\\S\\2 EGFR if Non- 23 Estimated Glomerular Nigerian (test mL/min/1.73m\\S\\2 Filtration Rate (eGFR) code=EGFRNA) Reference Intervals Decision Points for 18 years and older and average body mass: >=60 Does not exclude kidney disease. 30 - 59 Suggests moderate chronic kidney disease and indicates the need for further investigation including assessment of proteinuria and cardiovascular factors. < 30 Usually indicates a need for referral for assessment and management of chronic kidney failure. [id number] 02:05:00 Test Item Value Reference Range Comments Magnesium (test code=MG) 1.9 mg/dl 1.6-2.3 CBC WITH AUTO [id number] 02:03:00 Test Item Value Reference Range Comments [...] code=IG%) 0.9 % 0.0-0.4 AFB CULTURE + [id number] 12:29:00 Test Item Value Reference Range Comments CULTURE (BEAKER) (test No acid-fast bacilli isolated jnfm=9962) in 42 days AFB SMEAR (BEAKER) (test No acid fast bacilli seen jswe=505) AFB CULTURE + [id number] 12:28:00 Test Item Value Reference Range Comments CULTURE (BEAKER) (test No acid-fast bacilli isolated egau=1792) in 42 days AFB SMEAR (BEAKER) (test No acid fast bacilli seen afsz=867) FUNGUS CULTURE + [id number] 17:13:00 Test Item Value Reference Range Comments CULTURE (BEAKER) (test No fungus isolated in 28 days ugxw=4188) FUNGUS SMEAR (BEAKER) (test No fungi seen nokk=9335) FUNGUS CULTURE + [id number] 17:13:00 Test Item Value Reference Range Comments CULTURE (BEAKER) (test No fungus isolated in 28 days ospr=4357) FUNGUS SMEAR (BEAKER) (test No fungi seen scxg=6672) FUNGUS CULTURE + [id number] 21:46:00 Test Item Value Reference Range Comments CULTURE (BEAKER) (test No fungus isolated in 28 days udbd=1798) FUNGUS SMEAR (BEAKER) (test No fungi seen wgwq=1240) POCT-GLUCOSE [id number] 17:22:00 Test Item Value Reference Range Comments POC-GLUCOSE METER (BEAKER) 169 mg/dL 70-110 TESTED AT [address] (test zptj=4332) [place] [id number] POCT-GLUCOSE [id number] 12:13:00 Test Item Value Reference Range Comments POC-GLUCOSE METER (BEAKER) 165 mg/dL 70-110 TESTED AT [address] (test rewf=3313) [place] [id number] POCT-GLUCOSE [id number] 07:48:00 Test Item Value Reference Range Comments POC-GLUCOSE METER (BEAKER) 132 mg/dL 70-110 TESTED AT [address] (test xwnb=9602) [place] [id number] BASIC METABOLIC [id number] 07:26:00 Test Item Value Reference Range Comments SODIUM (BEAKER) (test 133 meq/L 136-145 lqet=111) POTASSIUM (BEAKER) (test 4.2 meq/L 3.5-5.1 fitk=848) CHLORIDE (BEAKER) (test 101 meq/L 98-107 dbkg=402) CO2 (BEAKER) (test 22 meq/L 22-29 pejz=396) BLOOD UREA NITROGEN 38 mg/dL 7-21 (BEAKER) (test bwcd=330) CREATININE (BEAKER) (test 4.01 mg/dL 0.57-1.25 xnnx=102) GLUCOSE RANDOM (BEAKER) 110 mg/dL 70-105 (test peyg=067) CALCIUM (BEAKER) (test 8.7 mg/dL 8.4-10.2 zioq=365) EGFR (BEAKER) (test 15 mL/min/1.73 sq m ESTIMATED GFR IS NOT mhvr=4337) ACCURATE CREATININE CLEARANCE IN PREDICTING GLOMERULAR FILTRATION RATE. ESTIMATED GFR IS NOT APPLICABLE FOR DIALYSIS PATIENTS. [id number] 07:25:00 Test Item Value Reference Range Comments PHOSPHORUS (BEAKER) (test zbdm=337) 4.4 mg/dL 2.3-4.7 [id number] 07:25:00 Test Item Value Reference Range Comments MAGNESIUM (BEAKER) (test yvfm=864) 1.9 mg/dL 1.6-2.6 CBC W/PLT COUNT & AUTO [id number] 06:54:00 Test Item Value Reference Range Comments WHITE BLOOD CELL COUNT (BEAKER) (test kywe=021) 12.6 K/ L 4.0-10.0 RED BLOOD CELL COUNT (BEAKER) (test hcyt=273) 2.78 M/ L 4.20-5.80 HEMOGLOBIN (BEAKER) (test vjbr=613) 8.3 GM/DL 13.0-16.8 HEMATOCRIT (BEAKER) (test ckwy=504) 25.1 % 40.0-50.0 MEAN CORPUSCULAR VOLUME (BEAKER) (test nssa=370) 90.3 fL 82.0-98.0 MEAN CORPUSCULAR HEMOGLOBIN (BEAKER) (test 29.8 pg 27.0-33.0 dzxt=034) MEAN CORPUSCULAR HEMOGLOBIN CONC (BEAKER) (test 33.1 GM/DL 32.0-36.0 hqii=632) RED CELL DISTRIBUTION WIDTH (BEAKER) (test 16.1 % 10.3-14.2 aefd=661) PLATELET COUNT (BEAKER) (test yfsv=071) 290 K/CU MM 150-430 MEAN PLATELET VOLUME (BEAKER) (test uouh=787) 7.2 fL 6.5-10.5 NUCLEATED RED BLOOD CELLS (BEAKER) (test 0 /100 WBC 0-0 kqra=582) NEUTROPHILS RELATIVE PERCENT (BEAKER) (test 74 % uhvq=467) LYMPHOCYTES RELATIVE PERCENT (BEAKER) (test 15 % svyq=197) MONOCYTES RELATIVE PERCENT (BEAKER) (test 9 % frjn=550) EOSINOPHILS RELATIVE PERCENT (BEAKER) (test 2 % jruu=113) BASOPHILS RELATIVE PERCENT (BEAKER) (test 0 % dilk=759) NEUTROPHILS ABSOLUTE COUNT (BEAKER) (test 9.30 K/ L 1.80-8.00 drxo=811) LYMPHOCYTES ABSOLUTE COUNT (BEAKER) (test 1.89 K/ L 1.48-4.50 vxcg=340) MONOCYTES ABSOLUTE COUNT (BEAKER) (test 1.14 K/ L 0.00-1.30 jjas=419) EOSINOPHILS ABSOLUTE COUNT (BEAKER) (test 0.26 K/ L 0.00-0.50 okhz=179) BASOPHILS ABSOLUTE COUNT (BEAKER) (test 0.05 K/ L 0.00-0.20 omnk=363) 0.00POCT-GLUCOSE [id number] 22:31:00 Test Item Value Reference Range Comments POC-GLUCOSE METER (BEAKER) 133 mg/dL 70-110 TESTED AT [address] (test cmcs=3815) [place] [address] POCT-GLUCOSE [id number] 17:17:00 Test Item Value Reference Range Comments POC-GLUCOSE METER (BEAKER) 119 mg/dL 70-110 TESTED AT [address] (test crgu=0343) [place] [address] POCT-GLUCOSE [id number] 11:43:00 Test Item Value Reference Range Comments POC-GLUCOSE METER (BEAKER) 175 mg/dL 70-110 TESTED AT [address] (test cbyo=4115) [place] [address] CBC W/PLT COUNT & AUTO [id number] 08:39:00 Test Item Value Reference Range Comments WHITE BLOOD CELL COUNT (BEAKER) (test fpjb=101) 13.4 K/ L 4.0-10.0 RED BLOOD CELL COUNT (BEAKER) (test hguv=725) 2.91 M/ L 4.20-5.80 HEMOGLOBIN (BEAKER) (test eicc=756) 8.6 GM/DL 13.0-16.8 HEMATOCRIT (BEAKER) (test fhon=237) 26.5 % 40.0-50.0 MEAN CORPUSCULAR VOLUME (BEAKER) (test iiro=605) 91.1 fL 82.0-98.0 MEAN CORPUSCULAR HEMOGLOBIN (BEAKER) (test 29.4 pg 27.0-33.0 ruwe=801) MEAN CORPUSCULAR HEMOGLOBIN CONC (BEAKER) (test 32.3 GM/DL 32.0-36.0 nmig=041) RED CELL DISTRIBUTION WIDTH (BEAKER) (test 16.0 % 10.3-14.2 brth=953) PLATELET COUNT (BEAKER) (test edkx=260) 282 K/CU MM 150-430 MEAN PLATELET VOLUME (BEAKER) (test itcx=570) 7.7 fL 6.5-10.5 NUCLEATED RED BLOOD CELLS (BEAKER) (test 0 /100 WBC 0-0 bccl=238) NEUTROPHILS RELATIVE PERCENT (BEAKER) (test 72 % pxfw=181) LYMPHOCYTES RELATIVE PERCENT (BEAKER) (test 16 % rbsi=620) MONOCYTES RELATIVE PERCENT (BEAKER) (test 10 % oysw=985) EOSINOPHILS RELATIVE PERCENT (BEAKER) (test 2 % hncc=829) BASOPHILS RELATIVE PERCENT (BEAKER) (test 1 % csyg=893) NEUTROPHILS ABSOLUTE COUNT (BEAKER) (test 9.63 K/ L 1.80-8.00 yczg=119) LYMPHOCYTES ABSOLUTE COUNT (BEAKER) (test 2.15 K/ L 1.48-4.50 xhhp=557) MONOCYTES ABSOLUTE COUNT (BEAKER) (test 1.32 K/ L 0.00-1.30 vvhv=224) EOSINOPHILS ABSOLUTE COUNT (BEAKER) (test 0.23 K/ L 0.00-0.50 ruov=117) BASOPHILS ABSOLUTE COUNT (BEAKER) (test 0.10 K/ L 0.00-0.20 aurm=912) 0.000.730.001.460.000.000.000.000.000.000.000.000.000.000.000.00(MANUAL DIFFERENTIAL)2016-12-24 08:39:00 Test Item Value Reference Range Comments TOTAL COUNTED (BEAKER) (test xbud=4763) POCT-GLUCOSE [id number] 07:47:00 Test Item Value Reference Range Comments POC-GLUCOSE METER (BEAKER) 139 mg/dL 70-110 TESTED AT [address] (test hqxu=7925) [facility] [address] BASIC METABOLIC [id number] 06:50:00 Test Item Value Reference Range Comments SODIUM (BEAKER) (test 133 meq/L 136-145 xjup=640) POTASSIUM (BEAKER) (test 4.2 meq/L 3.5-5.1 lmqj=919) CHLORIDE (BEAKER) (test 102 meq/L 98-107 htxi=408) CO2 (BEAKER) (test 21 meq/L 22-29 mrfj=509) BLOOD UREA NITROGEN 27 mg/dL 7-21 (BEAKER) (test nfps=027) CREATININE (BEAKER) (test 3.13 mg/dL 0.57-1.25 apfb=404) GLUCOSE RANDOM (BEAKER) 100 mg/dL 70-105 (test jvic=717) CALCIUM (BEAKER) (test 8.8 mg/dL 8.4-10.2 qhuz=388) EGFR (BEAKER) (test 21 mL/min/1.73 sq m ESTIMATED GFR IS NOT abjc=0725) ACCURATE CREATININE CLEARANCE IN PREDICTING GLOMERULAR FILTRATION RATE. ESTIMATED GFR IS NOT APPLICABLE FOR DIALYSIS PATIENTS. [id number] 06:41:00 Test Item Value Reference Range Comments PHOSPHORUS (BEAKER) (test nppw=891) 2.9 mg/dL 2.3-4.7 [id number] 06:41:00 Test Item Value Reference Range Comments MAGNESIUM (BEAKER) (test nykd=534) 1.7 mg/dL 1.6-2.6 POCT-GLUCOSE [id number] 21:52:00 Test Item Value Reference Range Comments POC-GLUCOSE METER (BEAKER) 97 mg/dL 70-110 TESTED AT [address] (test cgel=9190) [facility] [address] POCT-GLUCOSE [id number] 17:28:00 Test Item Value Reference Range Comments POC-GLUCOSE METER (BEAKER) 105 mg/dL 70-110 TESTED AT [address] (test bmgz=3561) [facility] [address] POCT-GLUCOSE [id number] 12:31:00 Test Item Value Reference Range Comments POC-GLUCOSE METER (BEAKER) 215 mg/dL 70-110 TESTED AT [address] (test javp=0927) [facility] [address] POCT-GLUCOSE [id number] 08:19:00 Test Item Value Reference Range Comments POC-GLUCOSE METER (BEAKER) 135 mg/dL 70-110 TESTED AT [facility] [address] (test gdhi=6814) [facility] [address] CBC W/PLT COUNT & AUTO [id number] 07:19:00 Test Item Value Reference Range Comments WHITE BLOOD CELL COUNT (BEAKER) (test tcac=646) 15.0 K/ L 4.0-10.0 RED BLOOD CELL COUNT (BEAKER) (test rdih=777) 3.04 M/ L 4.20-5.80 HEMOGLOBIN (BEAKER) (test rgjc=181) 8.8 GM/DL 13.0-16.8 HEMATOCRIT (BEAKER) (test hgss=632) 27.3 % 40.0-50.0 MEAN CORPUSCULAR VOLUME (BEAKER) (test otus=823) 89.8 fL 82.0-98.0 MEAN CORPUSCULAR HEMOGLOBIN (BEAKER) (test 29.0 pg 27.0-33.0 qsuc=591) MEAN CORPUSCULAR HEMOGLOBIN CONC (BEAKER) (test 32.3 GM/DL 32.0-36.0 kswc=710) RED CELL DISTRIBUTION WIDTH (BEAKER) (test 17.0 % 10.3-14.2 ikxi=413) PLATELET COUNT (BEAKER) (test wpbk=382) 285 K/CU MM 150-430 MEAN PLATELET VOLUME (BEAKER) (test vvka=464) 7.2 fL 6.5-10.5 NUCLEATED RED BLOOD CELLS (BEAKER) (test 0 /100 WBC 0-0 meim=100) NEUTROPHILS RELATIVE PERCENT (BEAKER) (test 77 % mthm=703) LYMPHOCYTES RELATIVE PERCENT (BEAKER) (test 11 % tksa=191) MONOCYTES RELATIVE PERCENT (BEAKER) (test 11 % vhxa=887) EOSINOPHILS RELATIVE PERCENT (BEAKER) (test 1 % epxh=685) BASOPHILS RELATIVE PERCENT (BEAKER) (test 0 % qxms=658) NEUTROPHILS ABSOLUTE COUNT (BEAKER) (test 11.50 K/ L 1.80-8.00 ioav=720) LYMPHOCYTES ABSOLUTE COUNT (BEAKER) (test 1.72 K/ L 1.48-4.50 mauv=880) MONOCYTES ABSOLUTE COUNT (BEAKER) (test 1.59 K/ L 0.00-1.30 xhxc=568) EOSINOPHILS ABSOLUTE COUNT (BEAKER) (test 0.17 K/ L 0.00-0.50 sbnz=932) BASOPHILS ABSOLUTE COUNT (BEAKER) (test 0.05 K/ L 0.00-0.20 wdmo=896) [id number] 06:41:00 Test Item Value Reference Range Comments PHOSPHORUS (BEAKER) (test hyfb=226) 2.1 mg/dL 2.3-4.7 [id number] 06:41:00 Test Item Value Reference Range Comments MAGNESIUM (BEAKER) (test uumq=437) 1.8 mg/dL 1.6-2.6 BASIC METABOLIC [id number] 06:41:00 Test Item Value Reference Range Comments SODIUM (BEAKER) (test 134 meq/L 136-145 saog=270) POTASSIUM (BEAKER) (test 4.2 meq/L 3.5-5.1 umfb=736) CHLORIDE (BEAKER) (test 103 meq/L 98-107 kwqd=101) CO2 (BEAKER) (test 23 meq/L 22-29 eptj=958) BLOOD UREA NITROGEN 18 mg/dL 7-21 (BEAKER) (test ttxq=152) CREATININE (BEAKER) (test 2.20 mg/dL 0.57-1.25 soal=190) GLUCOSE RANDOM (BEAKER) 105 mg/dL 70-105 (test hyos=056) CALCIUM (BEAKER) (test 8.5 mg/dL 8.4-10.2 guvf=075) EGFR (BEAKER) (test 31 mL/min/1.73 sq m ESTIMATED GFR IS NOT frgw=6302) ACCURATE CREATININE CLEARANCE IN PREDICTING GLOMERULAR FILTRATION RATE. ESTIMATED GFR IS NOT APPLICABLE FOR DIALYSIS PATIENTS. POCT-GLUCOSE [id number] 21:43:00 Test Item Value Reference Range Comments POC-GLUCOSE METER (BEAKER) 278 mg/dL 70-110 TESTED AT [address] (test gicm=5606) [facility] [address] POCT-GLUCOSE [id number] 18:42:00 Test Item Value Reference Range Comments POC-GLUCOSE METER (BEAKER) 177 mg/dL 70-110 TESTED AT [address] (test mjcv=5494) [facility] [address] POCT-GLUCOSE [id number] 14:53:00 Test Item Value Reference Range Comments POC-GLUCOSE METER (BEAKER) 197 mg/dL 70-110 TESTED AT [place] [id number] [facility] (test jsyk=9073) [facility] [address] CBC W/PLT COUNT & AUTO [id number] 12:20:00 Test Item Value Reference Range Comments WHITE BLOOD CELL COUNT (BEAKER) (test izdu=062) 13.6 K/ L 4.0-10.0 RED BLOOD CELL COUNT (BEAKER) (test xksg=226) 2.85 M/ L 4.20-5.80 HEMOGLOBIN (BEAKER) (test yore=625) 8.3 GM/DL 13.0-16.8 HEMATOCRIT (BEAKER) (test oysw=344) 25.8 % 40.0-50.0 MEAN CORPUSCULAR VOLUME (BEAKER) (test zbns=180) 90.6 fL 82.0-98.0 MEAN CORPUSCULAR HEMOGLOBIN (BEAKER) (test 29.3 pg 27.0-33.0 xwmh=456) MEAN CORPUSCULAR HEMOGLOBIN CONC (BEAKER) (test 32.3 GM/DL 32.0-36.0 ofoo=549) RED CELL DISTRIBUTION WIDTH (BEAKER) (test 16.7 % 10.3-14.2 iobx=422) PLATELET COUNT (BEAKER) (test pxav=513) 252 K/CU MM 150-430 MEAN PLATELET VOLUME (BEAKER) (test sxmp=193) 7.4 fL 6.5-10.5 NUCLEATED RED BLOOD CELLS (BEAKER) (test 0 /100 WBC 0-0 ucas=844) NEUTROPHILS RELATIVE PERCENT (BEAKER) (test 75 % bokc=744) LYMPHOCYTES RELATIVE PERCENT (BEAKER) (test 13 % zyra=420) MONOCYTES RELATIVE PERCENT (BEAKER) (test 10 % gvay=392) EOSINOPHILS RELATIVE PERCENT (BEAKER) (test 2 % ilnv=084) BASOPHILS RELATIVE PERCENT (BEAKER) (test 0 % klwg=902) NEUTROPHILS ABSOLUTE COUNT (BEAKER) (test 10.20 K/ L 1.80-8.00 omwn=541) LYMPHOCYTES ABSOLUTE COUNT (BEAKER) (test 1.78 K/ L 1.48-4.50 ihvu=203) MONOCYTES ABSOLUTE COUNT (BEAKER) (test 1.32 K/ L 0.00-1.30 cpbb=496) EOSINOPHILS ABSOLUTE COUNT (BEAKER) (test 0.22 K/ L 0.00-0.50 pgaj=764) BASOPHILS ABSOLUTE COUNT (BEAKER) (test 0.06 K/ L 0.00-0.20 fnaj=113) 0.00POCT-GLUCOSE [id number] 08:28:00 Test Item Value Reference Range Comments POC-GLUCOSE METER (BEAKER) 132 mg/dL 70-110 TESTED AT [facility] [address] [facility] (test yynp=4042) [facility] [address] BASIC METABOLIC [id number] 07:26:00 Test Item Value Reference Range Comments SODIUM (BEAKER) (test 131 meq/L 136-145 wrcn=529) POTASSIUM (BEAKER) (test 4.2 meq/L 3.5-5.1 giyg=617) CHLORIDE (BEAKER) (test 98 meq/L 98-107 cbva=048) CO2 (BEAKER) (test 24 meq/L 22-29 hyxt=328) BLOOD UREA NITROGEN 25 mg/dL 7-21 (BEAKER) (test smaw=593) CREATININE (BEAKER) (test 3.02 mg/dL 0.57-1.25 rvpv=438) GLUCOSE RANDOM (BEAKER) 103 mg/dL 70-105 (test ovvj=121) CALCIUM (BEAKER) (test 8.1 mg/dL 8.4-10.2 cdep=636) EGFR (BEAKER) (test 21 mL/min/1.73 sq m ESTIMATED GFR IS NOT vwoa=3412) ACCURATE CREATININE CLEARANCE IN PREDICTING GLOMERULAR FILTRATION RATE. ESTIMATED GFR IS NOT APPLICABLE FOR DIALYSIS PATIENTS. [id number] 07:17:00 Test Item Value Reference Range Comments PHOSPHORUS (BEAKER) (test dhmc=913) 3.1 mg/dL 2.3-4.7 [id number] 07:17:00 Test Item Value Reference Range Comments MAGNESIUM (BEAKER) (test pttj=755) 1.8 mg/dL 1.6-2.6 CALCIUM, [id number] 05:38:00 Test Item Value Reference Range Comments CALCIUM IONIZED (BEAKER) (test olrd=211) 1.09 mmol/L 1.12-1.27 PH, BLOOD (BEAKER) (test yjqc=2760) 7.45 POCT-GLUCOSE [id number] 21:45:00 Test Item Value Reference Range Comments POC-GLUCOSE METER (BEAKER) 121 mg/dL 70-110 TESTED AT [address] (test elpw=2591) [facility] [address] POCT-GLUCOSE [id number] 16:48:00 Test Item Value Reference Range Comments POC-GLUCOSE METER (BEAKER) 157 mg/dL 70-110 TESTED AT [address] (test dnmr=0189) [facility] [address] POCT-GLUCOSE [id number] 12:16:00 Test Item Value Reference Range Comments POC-GLUCOSE METER (BEAKER) 247 mg/dL 70-110 TESTED AT [address] (test kijn=0922) [facility] [address] POCT-GLUCOSE [id number] 08:14:00 Test Item Value Reference Range Comments POC-GLUCOSE METER (BEAKER) 166 mg/dL 70-110 TESTED AT [address] (test ontz=7300) [facility] [address] BASIC METABOLIC [id number] 07:58:00 Test Item Value Reference Range Comments SODIUM (BEAKER) (test 131 meq/L 136-145 tlgs=517) POTASSIUM (BEAKER) (test 3.9 meq/L 3.5-5.1 jkrw=331) CHLORIDE (BEAKER) (test 99 meq/L 98-107 payu=414) CO2 (BEAKER) (test 26 meq/L 22-29 daxr=895) BLOOD UREA NITROGEN 18 mg/dL 7-21 (BEAKER) (test ybji=471) CREATININE (BEAKER) (test 2.32 mg/dL 0.57-1.25 wyeq=994) GLUCOSE RANDOM (BEAKER) 145 mg/dL 70-105 (test qxvt=703) CALCIUM (BEAKER) (test 8.1 mg/dL 8.4-10.2 mujm=529) EGFR (BEAKER) (test 29 mL/min/1.73 sq m ESTIMATED GFR IS NOT eiyw=9986) ACCURATE CREATININE CLEARANCE IN PREDICTING GLOMERULAR FILTRATION RATE. ESTIMATED GFR IS NOT APPLICABLE FOR DIALYSIS PATIENTS. CBC W/PLT COUNT & AUTO [id number] 07:50:00 Test Item Value Reference Range Comments WHITE BLOOD CELL COUNT (BEAKER) (test pqgx=764) 15.3 K/ L 4.0-10.0 RED BLOOD CELL COUNT (BEAKER) (test lgrg=359) 3.00 M/ L 4.20-5.80 HEMOGLOBIN (BEAKER) (test bjta=753) 8.4 GM/DL 13.0-16.8 HEMATOCRIT (BEAKER) (test wrgf=831) 27.3 % 40.0-50.0 MEAN CORPUSCULAR VOLUME (BEAKER) (test kecm=776) 90.9 fL 82.0-98.0 MEAN CORPUSCULAR HEMOGLOBIN (BEAKER) (test 28.0 pg 27.0-33.0 ruzq=108) MEAN CORPUSCULAR HEMOGLOBIN CONC (BEAKER) (test 30.8 GM/DL 32.0-36.0 vcwg=372) RED CELL DISTRIBUTION WIDTH (BEAKER) (test 15.9 % 10.3-14.2 nshm=598) PLATELET COUNT (BEAKER) (test ugoj=407) 271 K/CU MM 150-430 MEAN PLATELET VOLUME (BEAKER) (test mrea=787) 7.4 fL 6.5-10.5 NUCLEATED RED BLOOD CELLS (BEAKER) (test 0 /100 WBC 0-0 grpw=911) NEUTROPHILS RELATIVE PERCENT (BEAKER) (test 76 % xzrp=388) LYMPHOCYTES RELATIVE PERCENT (BEAKER) (test 14 % tofd=981) MONOCYTES RELATIVE PERCENT (BEAKER) (test 9 % xhby=675) EOSINOPHILS RELATIVE PERCENT (BEAKER) (test 1 % doeg=307) BASOPHILS RELATIVE PERCENT (BEAKER) (test 0 % jtlu=023) NEUTROPHILS ABSOLUTE COUNT (BEAKER) (test 11.60 K/ L 1.80-8.00 wlvc=153) LYMPHOCYTES ABSOLUTE COUNT (BEAKER) (test 2.11 K/ L 1.48-4.50 jryy=288) MONOCYTES ABSOLUTE COUNT (BEAKER) (test 1.36 K/ L 0.00-1.30 hlif=047) EOSINOPHILS ABSOLUTE COUNT (BEAKER) (test 0.17 K/ L 0.00-0.50 chxt=183) BASOPHILS ABSOLUTE COUNT (BEAKER) (test 0.06 K/ L 0.00-0.20 wivc=225) [id number] 07:24:00 Test Item Value Reference Range Comments PHOSPHORUS (BEAKER) (test izcw=876) 2.1 mg/dL 2.3-4.7 [id number] 07:24:00 Test Item Value Reference Range Comments MAGNESIUM (BEAKER) (test oaid=828) 1.6 mg/dL 1.6-2.6 POCT-GLUCOSE [id number] 20:38:00 Test Item Value Reference Range Comments POC-GLUCOSE METER (BEAKER) 191 mg/dL 70-110 TESTED AT [address] (test hujf=7277) [place] [id number] POCT-GLUCOSE [id number] 17:32:00 Test Item Value Reference Range Comments POC-GLUCOSE METER (BEAKER) 229 mg/dL 70-110 TESTED AT [address] (test cqmq=5285) [place] [address] VANCOMYCIN LEVEL, [id number] 16:51:00 Test Item Value Reference Range Comments VANCOMYCIN TROUGH (BEAKER) (test eijx=783) 17.2 ug/mL 10.0-20.0 At end of dialysis on 12/20/16POCT-GLUCOSE [id number] 11:49:00 Test Item Value Reference Range Comments POC-GLUCOSE METER (BEAKER) 97 mg/dL 70-110 TESTED AT [address] (test ziaq=9029) [place] [id number] POCT-GLUCOSE [id number] 07:38:00 Test Item Value Reference Range Comments POC-GLUCOSE METER (BEAKER) 151 mg/dL 70-110 TESTED AT [address] (test uems=1388) [place] [id number] BASIC METABOLIC [id number] 06:39:00 Test Item Value Reference Range Comments SODIUM (BEAKER) (test 134 meq/L 136-145 ltkb=464) POTASSIUM (BEAKER) (test 3.9 meq/L 3.5-5.1 bsxw=204) CHLORIDE (BEAKER) (test 102 meq/L 98-107 kxte=049) CO2 (BEAKER) (test 24 meq/L 22-29 pcox=657) BLOOD UREA NITROGEN 23 mg/dL 7-21 (BEAKER) (test ehhs=348) CREATININE (BEAKER) (test 2.91 mg/dL 0.57-1.25 dith=296) GLUCOSE RANDOM (BEAKER) 99 mg/dL 70-105 (test ktug=246) CALCIUM (BEAKER) (test 8.2 mg/dL 8.4-10.2 peww=257) EGFR (BEAKER) (test 22 mL/min/1.73 sq m ESTIMATED GFR IS NOT wyxb=9974) ACCURATE CREATININE CLEARANCE IN PREDICTING GLOMERULAR FILTRATION RATE. ESTIMATED GFR IS NOT APPLICABLE FOR DIALYSIS PATIENTS. [id number] 06:37:00 Test Item Value Reference Range Comments PHOSPHORUS (BEAKER) (test dphq=323) 2.9 mg/dL 2.3-4.7 [id number] 06:37:00 Test Item Value Reference Range Comments MAGNESIUM (BEAKER) (test agre=008) 1.6 mg/dL 1.6-2.6 CBC W/PLT COUNT & AUTO [id number] 06:36:00 Test Item Value Reference Range Comments WHITE BLOOD CELL COUNT (BEAKER) (test upfr=129) 14.1 K/ L 4.0-10.0 RED BLOOD CELL COUNT (BEAKER) (test vnzr=558) 3.01 M/ L 4.20-5.80 HEMOGLOBIN (BEAKER) (test qxyx=638) 8.7 GM/DL 13.0-16.8 HEMATOCRIT (BEAKER) (test czdk=369) 26.8 % 40.0-50.0 MEAN CORPUSCULAR VOLUME (BEAKER) (test kzkl=906) 88.9 fL 82.0-98.0 MEAN CORPUSCULAR HEMOGLOBIN (BEAKER) (test 28.8 pg 27.0-33.0 cziu=079) MEAN CORPUSCULAR HEMOGLOBIN CONC (BEAKER) (test 32.5 GM/DL 32.0-36.0 mhgh=232) RED CELL DISTRIBUTION WIDTH (BEAKER) (test 16.3 % 10.3-14.2 ikdu=873) PLATELET COUNT (BEAKER) (test mvoi=511) 242 K/CU MM 150-430 MEAN PLATELET VOLUME (BEAKER) (test dnqn=446) 6.9 fL 6.5-10.5 NUCLEATED RED BLOOD CELLS (BEAKER) (test 0 /100 WBC 0-0 lxif=893) NEUTROPHILS RELATIVE PERCENT (BEAKER) (test 73 % ofxh=471) LYMPHOCYTES RELATIVE PERCENT (BEAKER) (test 15 % cbtq=512) MONOCYTES RELATIVE PERCENT (BEAKER) (test 9 % lqtm=486) EOSINOPHILS RELATIVE PERCENT (BEAKER) (test 2 % tmjt=880) BASOPHILS RELATIVE PERCENT (BEAKER) (test 0 % mdws=249) NEUTROPHILS ABSOLUTE COUNT (BEAKER) (test 10.30 K/ L 1.80-8.00 tebb=073) LYMPHOCYTES ABSOLUTE COUNT (BEAKER) (test 2.14 K/ L 1.48-4.50 ubjm=153) MONOCYTES ABSOLUTE COUNT (BEAKER) (test 1.33 K/ L 0.00-1.30 uawy=643) EOSINOPHILS ABSOLUTE COUNT (BEAKER) (test 0.29 K/ L 0.00-0.50 tenv=617) BASOPHILS ABSOLUTE COUNT (BEAKER) (test 0.06 K/ L 0.00-0.20 pegh=154) 0.00CALCIUM, [id number] 06:24:00 Test Item Value Reference Range Comments CALCIUM IONIZED (BEAKER) (test otsa=201) 1.08 mmol/L 1.12-1.27 PH, BLOOD (BEAKER) (test ynjz=8226) 7.46 POCT-GLUCOSE [id number] 22:24:00 Test Item Value Reference Range Comments POC-GLUCOSE METER (BEAKER) 166 mg/dL 70-110 TESTED AT [address] (test dofx=6067) [place] [id number] POCT-GLUCOSE [id number] 16:17:00 Test Item Value Reference Range Comments POC-GLUCOSE METER (BEAKER) 132 mg/dL 70-110 TESTED AT [address] (test uvyx=6916) [place] [id number] POCT-GLUCOSE [id number] 12:16:00 Test Item Value Reference Range Comments POC-GLUCOSE METER (BEAKER) 90 mg/dL 70-110 TESTED AT [address] (test dnyo=1417) [place] [id number] POCT-GLUCOSE [id number] 08:13:00 Test Item Value Reference Range Comments POC-GLUCOSE METER (BEAKER) 111 mg/dL 70-110 TESTED AT [address] (test oxai=0848) [place] [id number] CBC W/PLT COUNT & AUTO [id number] 07:40:00 Test Item Value Reference Range Comments WHITE BLOOD CELL COUNT (BEAKER) (test fsls=292) 11.9 K/ L 4.0-10.0 RED BLOOD CELL COUNT (BEAKER) (test twoj=480) 3.11 M/ L 4.20-5.80 HEMOGLOBIN (BEAKER) (test gsbh=802) 8.9 GM/DL 13.0-16.8 HEMATOCRIT (BEAKER) (test dcmg=501) 28.0 % 40.0-50.0 MEAN CORPUSCULAR VOLUME (BEAKER) (test pzwg=891) 90.3 fL 82.0-98.0 MEAN CORPUSCULAR HEMOGLOBIN (BEAKER) (test 28.7 pg 27.0-33.0 ugul=609) MEAN CORPUSCULAR HEMOGLOBIN CONC (BEAKER) (test 31.8 GM/DL 32.0-36.0 hkxg=834) RED CELL DISTRIBUTION WIDTH (BEAKER) (test 15.5 % 10.3-14.2 fife=268) PLATELET COUNT (BEAKER) (test ztjn=033) 252 K/CU MM 150-430 MEAN PLATELET VOLUME (BEAKER) (test ukyo=705) 7.1 fL 6.5-10.5 NUCLEATED RED BLOOD CELLS (BEAKER) (test 0 /100 WBC 0-0 ydup=800) NEUTROPHILS RELATIVE PERCENT (BEAKER) (test 69 % dqdc=733) LYMPHOCYTES RELATIVE PERCENT (BEAKER) (test 18 % bvgo=638) MONOCYTES RELATIVE PERCENT (BEAKER) (test 11 % cqrs=779) EOSINOPHILS RELATIVE PERCENT (BEAKER) (test 2 % hhwi=279) BASOPHILS RELATIVE PERCENT (BEAKER) (test 0 % gdqa=398) NEUTROPHILS ABSOLUTE COUNT (BEAKER) (test 8.27 K/ L 1.80-8.00 qyqd=228) LYMPHOCYTES ABSOLUTE COUNT (BEAKER) (test 2.09 K/ L 1.48-4.50 ymez=039) MONOCYTES ABSOLUTE COUNT (BEAKER) (test 1.35 K/ L 0.00-1.30 bhiw=130) EOSINOPHILS ABSOLUTE COUNT (BEAKER) (test 0.19 K/ L 0.00-0.50 fafl=077) BASOPHILS ABSOLUTE COUNT (BEAKER) (test 0.04 K/ L 0.00-0.20 kjfg=248) [id number] 07:29:00 Test Item Value Reference Range Comments PHOSPHORUS (BEAKER) (test ixnf=003) 1.8 mg/dL 2.3-4.7 [id number] 07:29:00 Test Item Value Reference Range Comments MAGNESIUM (BEAKER) (test awzv=100) 1.6 mg/dL 1.6-2.6 BASIC METABOLIC [id number] 07:29:00 Test Item Value Reference Range Comments SODIUM (BEAKER) (test 135 meq/L 136-145 ziau=014) POTASSIUM (BEAKER) (test 3.7 meq/L 3.5-5.1 sqco=325) CHLORIDE (BEAKER) (test 104 meq/L 98-107 dxls=872) CO2 (BEAKER) (test 24 meq/L 22-29 pffb=064) BLOOD UREA NITROGEN 12 mg/dL 7-21 (BEAKER) (test mthj=932) CREATININE (BEAKER) (test 2.00 mg/dL 0.57-1.25 tlpv=162) GLUCOSE RANDOM (BEAKER) 81 mg/dL 70-105 (test nbjq=519) CALCIUM (BEAKER) (test 8.2 mg/dL 8.4-10.2 bvqp=613) EGFR (BEAKER) (test 34 mL/min/1.73 sq m ESTIMATED GFR IS NOT gzxz=1232) ACCURATE CREATININE CLEARANCE IN PREDICTING GLOMERULAR FILTRATION RATE. ESTIMATED GFR IS NOT APPLICABLE FOR DIALYSIS PATIENTS. POCT-GLUCOSE [id number] 21:13:00 Test Item Value Reference Range Comments POC-GLUCOSE METER (BEAKER) 107 mg/dL 70-110 TESTED AT [address] (test dxbu=6755) [facility] [address] POCT-GLUCOSE [id number] 17:33:00 Test Item Value Reference Range Comments POC-GLUCOSE METER (BEAKER) 131 mg/dL 70-110 TESTED AT [address] (test uvza=2212) [facility] [address] POCT-GLUCOSE [id number] 13:05:00 Test Item Value Reference Range Comments POC-GLUCOSE METER (BEAKER) 188 mg/dL 70-110 TESTED AT [address] (test yxky=8712) [facility] [address] POCT-GLUCOSE [id number] 09:01:00 Test Item Value Reference Range Comments POC-GLUCOSE METER (BEAKER) 103 mg/dL 70-110 TESTED AT [place] [id number] [facility] (test azkj=1273) [facility] [address] CBC W/PLT COUNT & AUTO [id number] 07:08:00 Test Item Value Reference Range Comments WHITE BLOOD CELL COUNT (BEAKER) (test wcac=540) 12.7 K/ L 4.0-10.0 RED BLOOD CELL COUNT (BEAKER) (test rrwz=595) 3.09 M/ L 4.20-5.80 HEMOGLOBIN (BEAKER) (test pjtv=115) 9.0 GM/DL 13.0-16.8 HEMATOCRIT (BEAKER) (test zoqf=164) 27.4 % 40.0-50.0 MEAN CORPUSCULAR VOLUME (BEAKER) (test aagu=127) 88.8 fL 82.0-98.0 MEAN CORPUSCULAR HEMOGLOBIN (BEAKER) (test 29.0 pg 27.0-33.0 apux=527) MEAN CORPUSCULAR HEMOGLOBIN CONC (BEAKER) (test 32.7 GM/DL 32.0-36.0 ezpp=951) RED CELL DISTRIBUTION WIDTH (BEAKER) (test 15.7 % 10.3-14.2 thhy=934) PLATELET COUNT (BEAKER) (test vomv=347) 257 K/CU MM 150-430 MEAN PLATELET VOLUME (BEAKER) (test rkfo=829) 7.0 fL 6.5-10.5 NUCLEATED RED BLOOD CELLS (BEAKER) (test 0 /100 WBC 0-0 bwdf=886) NEUTROPHILS RELATIVE PERCENT (BEAKER) (test 74 % ygce=481) LYMPHOCYTES RELATIVE PERCENT (BEAKER) (test 14 % jooa=651) MONOCYTES RELATIVE PERCENT (BEAKER) (test 9 % xyzj=312) EOSINOPHILS RELATIVE PERCENT (BEAKER) (test 2 % zlvv=691) BASOPHILS RELATIVE PERCENT (BEAKER) (test 0 % ehsj=944) NEUTROPHILS ABSOLUTE COUNT (BEAKER) (test 9.38 K/ L 1.80-8.00 fwup=659) LYMPHOCYTES ABSOLUTE COUNT (BEAKER) (test 1.80 K/ L 1.48-4.50 mmvx=263) MONOCYTES ABSOLUTE COUNT (BEAKER) (test 1.20 K/ L 0.00-1.30 vyba=066) EOSINOPHILS ABSOLUTE COUNT (BEAKER) (test 0.24 K/ L 0.00-0.50 hlzo=472) BASOPHILS ABSOLUTE COUNT (BEAKER) (test 0.05 K/ L 0.00-0.20 jpjl=175) [id number] 06:17:00 Test Item Value Reference Range Comments PHOSPHORUS (BEAKER) (test rfwi=134) 2.4 mg/dL 2.3-4.7 [id number] 06:17:00 Test Item Value Reference Range Comments MAGNESIUM (BEAKER) (test dzlb=888) 1.5 mg/dL 1.6-2.6 BASIC METABOLIC [id number] 06:17:00 Test Item Value Reference Range Comments SODIUM (BEAKER) (test 135 meq/L 136-145 bpie=954) POTASSIUM (BEAKER) (test 3.7 meq/L 3.5-5.1 bfqj=891) CHLORIDE (BEAKER) (test 104 meq/L 98-107 mmxm=085) CO2 (BEAKER) (test 23 meq/L 22-29 qevb=198) BLOOD UREA NITROGEN 24 mg/dL 7-21 (BEAKER) (test omcm=960) CREATININE (BEAKER) (test 2.70 mg/dL 0.57-1.25 ijcy=341) GLUCOSE RANDOM (BEAKER) 93 mg/dL 70-105 (test regr=592) CALCIUM (BEAKER) (test 8.4 mg/dL 8.4-10.2 tzkk=993) EGFR (BEAKER) (test 24 mL/min/1.73 sq m ESTIMATED GFR IS NOT tqqx=1279) ACCURATE CREATININE CLEARANCE IN PREDICTING GLOMERULAR FILTRATION RATE. ESTIMATED GFR IS NOT APPLICABLE FOR DIALYSIS PATIENTS. POCT-GLUCOSE [id number] 23:43:00 Test Item Value Reference Range Comments POC-GLUCOSE METER (BEAKER) 100 mg/dL 70-110 TESTED AT [facility] [address] (test wnds=5450) [facility] [address] POCT-GLUCOSE [id number] 17:44:00 Test Item Value Reference Range Comments POC-GLUCOSE METER (BEAKER) 208 mg/dL 70-110 TESTED AT [address] (test ddzd=0784) [facility] [address] ANAEROBIC [id number] 14:43:00 Test Item Value Reference Range Comments CULTURE (BEAKER) (test nkjg=0034) No anaerobes isolated ANAEROBIC [id number] 14:42:00 Test Item Value Reference Range Comments CULTURE (BEAKER) (test qqsw=7950) No anaerobes isolated POCT-GLUCOSE [id number] 12:02:00 Test Item Value Reference Range Comments POC-GLUCOSE METER (BEAKER) 208 mg/dL 70-110 TESTED AT [address] (test njvy=2033) [place] [id number] POCT-GLUCOSE [id number] 09:52:00 Test Item Value Reference Range Comments POC-GLUCOSE METER (BEAKER) 86 mg/dL 70-110 TESTED AT [address] (test cxig=1413) [facility] [address] CBC W/PLT COUNT & AUTO [id number] 07:11:00 Test Item Value Reference Range Comments WHITE BLOOD CELL COUNT (BEAKER) (test ogwa=831) 11.1 K/ L 4.0-10.0 RED BLOOD CELL COUNT (BEAKER) (test pmzp=166) 3.26 M/ L 4.20-5.80 HEMOGLOBIN (BEAKER) (test dumg=279) 9.6 GM/DL 13.0-16.8 HEMATOCRIT (BEAKER) (test zhxj=775) 29.4 % 40.0-50.0 MEAN CORPUSCULAR VOLUME (BEAKER) (test lxqg=220) 90.2 fL 82.0-98.0 MEAN CORPUSCULAR HEMOGLOBIN (BEAKER) (test 29.5 pg 27.0-33.0 jpjy=834) MEAN CORPUSCULAR HEMOGLOBIN CONC (BEAKER) (test 32.7 GM/DL 32.0-36.0 ccxn=429) RED CELL DISTRIBUTION WIDTH (BEAKER) (test 14.7 % 10.3-14.2 vgia=326) PLATELET COUNT (BEAKER) (test aest=468) 280 K/CU MM 150-430 MEAN PLATELET VOLUME (BEAKER) (test kngj=698) 6.8 fL 6.5-10.5 NUCLEATED RED BLOOD CELLS (BEAKER) (test 0 /100 WBC 0-0 wluu=493) NEUTROPHILS RELATIVE PERCENT (BEAKER) (test 73 % gxew=717) LYMPHOCYTES RELATIVE PERCENT (BEAKER) (test 15 % qczm=114) MONOCYTES RELATIVE PERCENT (BEAKER) (test 10 % uswl=167) EOSINOPHILS RELATIVE PERCENT (BEAKER) (test 2 % ktjt=514) BASOPHILS RELATIVE PERCENT (BEAKER) (test 0 % wnkw=373) NEUTROPHILS ABSOLUTE COUNT (BEAKER) (test 8.08 K/ L 1.80-8.00 gihf=457) LYMPHOCYTES ABSOLUTE COUNT (BEAKER) (test 1.66 K/ L 1.48-4.50 abhu=030) MONOCYTES ABSOLUTE COUNT (BEAKER) (test 1.06 K/ L 0.00-1.30 ttzg=908) EOSINOPHILS ABSOLUTE COUNT (BEAKER) (test 0.26 K/ L 0.00-0.50 jpnr=646) BASOPHILS ABSOLUTE COUNT (BEAKER) (test 0.05 K/ L 0.00-0.20 uphz=085) [id number] 06:02:00 Test Item Value Reference Range Comments PHOSPHORUS (BEAKER) (test eqot=516) 1.7 mg/dL 2.3-4.7 [id number] 06:02:00 Test Item Value Reference Range Comments MAGNESIUM (BEAKER) (test yprq=657) 1.5 mg/dL 1.6-2.6 BASIC METABOLIC [id number] 06:02:00 Test Item Value Reference Range Comments SODIUM (BEAKER) (test 136 meq/L 136-145 nohq=840) POTASSIUM (BEAKER) (test 3.9 meq/L 3.5-5.1 lsbc=330) CHLORIDE (BEAKER) (test 103 meq/L 98-107 puvl=806) CO2 (BEAKER) (test 25 meq/L 22-29 qirh=605) BLOOD UREA NITROGEN 13 mg/dL 7-21 (BEAKER) (test bhxf=429) CREATININE (BEAKER) (test 1.67 mg/dL 0.57-1.25 njbd=940) GLUCOSE RANDOM (BEAKER) 74 mg/dL 70-105 (test dryg=352) CALCIUM (BEAKER) (test 8.7 mg/dL 8.4-10.2 vmkp=619) EGFR (BEAKER) (test 42 mL/min/1.73 sq m ESTIMATED GFR IS NOT rqvd=2119) ACCURATE CREATININE CLEARANCE IN PREDICTING GLOMERULAR FILTRATION RATE. ESTIMATED GFR IS NOT APPLICABLE FOR DIALYSIS PATIENTS. POCT-GLUCOSE [id number] 21:46:00 Test Item Value Reference Range Comments POC-GLUCOSE METER (BEAKER) 83 mg/dL 70-110 TESTED AT [address] (test djpk=7739) [place] [id number] POCT-GLUCOSE [id number] 17:45:00 Test Item Value Reference Range Comments POC-GLUCOSE METER (BEAKER) 83 mg/dL 70-110 TESTED AT [address] (test bryj=1820) [place] [id number] POCT-GLUCOSE [id number] 11:03:00 Test Item Value Reference Range Comments POC-GLUCOSE METER (BEAKER) 152 mg/dL 70-110 TESTED AT [address] (test itra=5403) [place] [id number] CBC W/PLT COUNT & AUTO [id number] 08:54:00 Test Item Value Reference Range Comments WHITE BLOOD CELL COUNT (BEAKER) (test hukd=864) 14.2 K/ L 4.0-10.0 RED BLOOD CELL COUNT (BEAKER) (test qjar=663) 2.99 M/ L 4.20-5.80 HEMOGLOBIN (BEAKER) (test adaz=548) 8.6 GM/DL 13.0-16.8 HEMATOCRIT (BEAKER) (test mpie=510) 27.1 % 40.0-50.0 MEAN CORPUSCULAR VOLUME (BEAKER) (test ltqp=108) 90.6 fL 82.0-98.0 MEAN CORPUSCULAR HEMOGLOBIN (BEAKER) (test 28.6 pg 27.0-33.0 gljc=047) MEAN CORPUSCULAR HEMOGLOBIN CONC (BEAKER) (test 31.6 GM/DL 32.0-36.0 onfk=201) RED CELL DISTRIBUTION WIDTH (BEAKER) (test 14.6 % 10.3-14.2 fpzi=764) PLATELET COUNT (BEAKER) (test ohww=102) 285 K/CU MM 150-430 MEAN PLATELET VOLUME (BEAKER) (test vmgr=397) 7.1 fL 6.5-10.5 NUCLEATED RED BLOOD CELLS (BEAKER) (test 0 /100 WBC 0-0 bhck=335) NEUTROPHILS RELATIVE PERCENT (BEAKER) (test 79 % kjdw=993) LYMPHOCYTES RELATIVE PERCENT (BEAKER) (test 10 % qoos=016) MONOCYTES RELATIVE PERCENT (BEAKER) (test 9 % klcr=527) EOSINOPHILS RELATIVE PERCENT (BEAKER) (test 2 % titx=276) BASOPHILS RELATIVE PERCENT (BEAKER) (test 0 % kjsd=181) NEUTROPHILS ABSOLUTE COUNT (BEAKER) (test 11.20 K/ L 1.80-8.00 ftgg=986) LYMPHOCYTES ABSOLUTE COUNT (BEAKER) (test 1.40 K/ L 1.48-4.50 jxfm=504) MONOCYTES ABSOLUTE COUNT (BEAKER) (test 1.30 K/ L 0.00-1.30 hypx=466) EOSINOPHILS ABSOLUTE COUNT (BEAKER) (test 0.27 K/ L 0.00-0.50 ewnz=986) BASOPHILS ABSOLUTE COUNT (BEAKER) (test 0.04 K/ L 0.00-0.20 xbvg=772) 0.00BASIC METABOLIC [id number] 08:46:00 Test Item Value Reference Range Comments SODIUM (BEAKER) (test 138 meq/L 136-145 edtg=197) POTASSIUM (BEAKER) (test 3.8 meq/L 3.5-5.1 yvpw=340) CHLORIDE (BEAKER) (test 103 meq/L 98-107 sziw=925) CO2 (BEAKER) (test 25 meq/L 22-29 xfju=499) BLOOD UREA NITROGEN 29 mg/dL 7-21 (BEAKER) (test pyxm=720) CREATININE (BEAKER) (test 2.68 mg/dL 0.57-1.25 nsri=525) GLUCOSE RANDOM (BEAKER) 91 mg/dL 70-105 (test xkug=103) CALCIUM (BEAKER) (test 7.9 mg/dL 8.4-10.2 awcx=961) EGFR (BEAKER) (test 25 mL/min/1.73 sq m ESTIMATED GFR IS NOT urel=9169) ACCURATE CREATININE CLEARANCE IN PREDICTING GLOMERULAR FILTRATION RATE. ESTIMATED GFR IS NOT APPLICABLE FOR DIALYSIS PATIENTS. VANCOMYCIN LEVEL, [id number] 07:53:00 Test Item Value Reference Range Comments VANCOMYCIN RANDOM (BEAKER) (test vtbs=774) 15.1 ug/mL Reference Range: No NormalsPOCT-GLUCOSE [id number] 07:52:00 Test Item Value Reference Range Comments POC-GLUCOSE METER (BEAKER) 126 mg/dL 70-110 TESTED AT [address] (test fnld=5119) [place] [address] [id number] 07:50:00 Test Item Value Reference Range Comments PHOSPHORUS (BEAKER) (test mrex=334) 2.1 mg/dL 2.3-4.7 [id number] 07:50:00 Test Item Value Reference Range Comments MAGNESIUM (BEAKER) (test qiht=636) 1.7 mg/dL 1.6-2.6 POCT-GLUCOSE [id number] 21:08:00 Test Item Value Reference Range Comments POC-GLUCOSE METER (BEAKER) 234 mg/dL 70-110 TESTED AT [address] (test mqti=0262) [place] [address] POCT-GLUCOSE [id number] 17:02:00 Test Item Value Reference Range Comments POC-GLUCOSE METER (BEAKER) 230 mg/dL 70-110 TESTED AT [address] (test uort=8154) [place] [address] SURGICALLY OBTAINED CULTURE + GRAM [id number] 09:26:00 Test Item Value Reference Range Comments CULTURE (BEAKER) (test <1+ Same organism has been zsei=7556) isolated from cultures(s) of the same body site and collection date. Repeat identification and susceptibility testing performed only after consultation with the clinical microbiology laboratory.Refer to previous culture ofMethicillin resistant Staphylococcus aureus GRAM STAIN RESULT <1+ WBCs (BEAKER) (test vefj=9901) GRAM STAIN RESULT No organisms seen (BEAKER) (test aztv=[id number]) SURGICALLY OBTAINED CULTURE + GRAM [id number] 09:25:00 Test Item Value Reference Range Comments CULTURE (BEAKER) (test METHICILLIN RESISTANT <1+ Methicillin emqn=0074) STAPHYLOCOCCUS AUREUS resistant Staphylococcus aureus Clindamycin (test code=10) Erythromycin (test code=4) Linezolid (test code=40) Oxacillin (test code=14) Rifampin (test code=43) Tetracycline (test code=2) Trimethoprim + Sulfamethoxazole (test code=47) Vancomycin (test code=13) CULTURE (BEAKER) (test METHICILLIN RESISTANT <1+ Methicillin ejue=34282) STAPHYLOCOCCUS AUREUS resistant Staphylococcus aureusof a second type Clindamycin (test code=10) Erythromycin (test code=4) Linezolid (test code=40) Oxacillin (test code=14) Rifampin (test code=43) Tetracycline (test code=2) Trimethoprim + Sulfamethoxazole (test code=47) Vancomycin (test code=13) GRAM STAIN RESULT No White blood cells (BEAKER) (test wjpi=4958) seen GRAM STAIN RESULT No organisms seen (BEAKER) (test jmht=791180) POCT-GLUCOSE [id number] 08:39:00 Test Item Value Reference Range Comments POC-GLUCOSE METER (BEAKER) 129 mg/dL 70-110 TESTED AT [facility] [address] [facility] (test egxr=0811) [facility] [address] CBC W/PLT COUNT & AUTO [id number] 06:51:00 Test Item Value Reference Range Comments WHITE BLOOD CELL COUNT (BEAKER) (test mrkz=600) 17.4 K/ L 4.0-10.0 RED BLOOD CELL COUNT (BEAKER) (test blej=597) 2.99 M/ L 4.20-5.80 HEMOGLOBIN (BEAKER) (test dbot=052) 8.9 GM/DL 13.0-16.8 HEMATOCRIT (BEAKER) (test pvsq=485) 27.1 % 40.0-50.0 MEAN CORPUSCULAR VOLUME (BEAKER) (test xfpj=121) 90.6 fL 82.0-98.0 MEAN CORPUSCULAR HEMOGLOBIN (BEAKER) (test 29.6 pg 27.0-33.0 hvfv=515) MEAN CORPUSCULAR HEMOGLOBIN CONC (BEAKER) (test 32.7 GM/DL 32.0-36.0 xfap=337) RED CELL DISTRIBUTION WIDTH (BEAKER) (test 15.3 % 10.3-14.2 fxfa=835) PLATELET COUNT (BEAKER) (test cudr=332) 246 K/CU MM 150-430 MEAN PLATELET VOLUME (BEAKER) (test hpyr=328) 6.7 fL 6.5-10.5 NUCLEATED RED BLOOD CELLS (BEAKER) (test 0 /100 WBC 0-0 ethb=079) NEUTROPHILS RELATIVE PERCENT (BEAKER) (test 83 % opmp=370) LYMPHOCYTES RELATIVE PERCENT (BEAKER) (test 7 % lhzi=401) MONOCYTES RELATIVE PERCENT (BEAKER) (test 9 % rram=630) EOSINOPHILS RELATIVE PERCENT (BEAKER) (test 1 % rgzh=366) BASOPHILS RELATIVE PERCENT (BEAKER) (test 0 % ophq=107) NEUTROPHILS ABSOLUTE COUNT (BEAKER) (test 14.50 K/ L 1.80-8.00 vyae=984) LYMPHOCYTES ABSOLUTE COUNT (BEAKER) (test 1.19 K/ L 1.48-4.50 swmn=569) MONOCYTES ABSOLUTE COUNT (BEAKER) (test 1.56 K/ L 0.00-1.30 hqni=580) EOSINOPHILS ABSOLUTE COUNT (BEAKER) (test 0.13 K/ L 0.00-0.50 envg=355) BASOPHILS ABSOLUTE COUNT (BEAKER) (test 0.03 K/ L 0.00-0.20 omif=765) 0.00BASIC METABOLIC [id number] 05:44:00 Test Item Value Reference Range Comments SODIUM (BEAKER) (test 139 meq/L 136-145 ordn=842) POTASSIUM (BEAKER) (test 3.7 meq/L 3.5-5.1 apni=177) CHLORIDE (BEAKER) (test 104 meq/L 98-107 sate=627) CO2 (BEAKER) (test 26 meq/L 22-29 kclr=458) BLOOD UREA NITROGEN 19 mg/dL 7-21 (BEAKER) (test srkh=975) CREATININE (BEAKER) (test 2.08 mg/dL 0.57-1.25 mjok=819) GLUCOSE RANDOM (BEAKER) 127 mg/dL 70-105 (test aqbe=967) CALCIUM (BEAKER) (test 7.9 mg/dL 8.4-10.2 uhyc=272) EGFR (BEAKER) (test 33 mL/min/1.73 sq m ESTIMATED GFR IS NOT wwkt=6333) ACCURATE CREATININE CLEARANCE IN PREDICTING GLOMERULAR FILTRATION RATE. ESTIMATED GFR IS NOT APPLICABLE FOR DIALYSIS PATIENTS. [id number] 05:42:00 Test Item Value Reference Range Comments PHOSPHORUS (BEAKER) (test chkj=698) 2.3 mg/dL 2.3-4.7 [id number] 05:42:00 Test Item Value Reference Range Comments MAGNESIUM (BEAKER) (test zmqa=907) 1.7 mg/dL 1.6-2.6 CALCIUM, [id number] 05:21:00 Test Item Value Reference Range Comments CALCIUM IONIZED (BEAKER) (test ptpk=028) 0.99 mmol/L 1.12-1.27 PH, BLOOD (BEAKER) (test yiwg=4063) 7.44 POCT-GLUCOSE [id number] 21:08:00 Test Item Value Reference Range Comments POC-GLUCOSE METER (BEAKER) 184 mg/dL 70-110 TESTED AT [address] (test stdu=7965) [place] [id number] POCT-GLUCOSE [id number] 18:10:00 Test Item Value Reference Range Comments POC-GLUCOSE METER (BEAKER) 214 mg/dL 70-110 TESTED AT [address] (test wkmx=0996) [place] [id number] POCT-GLUCOSE [id number] 18:04:00 Test Item Value Reference Range Comments POC-GLUCOSE METER (BEAKER) 169 mg/dL 70-110 TESTED AT [address] (test oqna=5781) [place] [id number] POCT-GLUCOSE [id number] 11:49:00 Test Item Value Reference Range Comments POC-GLUCOSE METER (BEAKER) 126 mg/dL 70-110 TESTED AT [address] (test eqnc=4369) [place] [id number] POCT-GLUCOSE [id number] 08:17:00 Test Item Value Reference Range Comments POC-GLUCOSE METER (BEAKER) 119 mg/dL 70-110 TESTED AT [address] (test fmsb=1716) [facility] [address] VANCOMYCIN LEVEL, [id number] 06:32:00 Test Item Value Reference Range Comments VANCOMYCIN RANDOM (BEAKER) (test bfya=539) 13.8 ug/mL Reference Range: No NormalsPOCT-GLUCOSE [id number] 05:54:00 Test Item Value Reference Range Comments POC-GLUCOSE METER (BEAKER) 122 mg/dL 70-110 TESTED AT [address] (test rhin=7842) [facility] [address] B-TYPE NATRIURETIC FACTOR (BNP)2016-12-14 03:44:00 Test Item Value Reference Range Comments B-TYPE NATRIURETIC PEPTIDE (BEAKER) (test 883 pg/mL 0-100 uftv=129) BASIC METABOLIC [id number] 03:40:00 Test Item Value Reference Range Comments SODIUM (BEAKER) (test 140 meq/L 136-145 omvk=571) POTASSIUM (BEAKER) (test 4.5 meq/L 3.5-5.1 vvnv=198) CHLORIDE (BEAKER) (test 109 meq/L 98-107 hguy=705) CO2 (BEAKER) (test 23 meq/L 22-29 sdbf=765) BLOOD UREA NITROGEN 21 mg/dL 7-21 (BEAKER) (test kwsu=884) CREATININE (BEAKER) (test 2.96 mg/dL 0.57-1.25 vcbx=919) GLUCOSE RANDOM (BEAKER) 118 mg/dL 70-105 (test rhdf=069) CALCIUM (BEAKER) (test 7.5 mg/dL 8.4-10.2 wdnx=692) EGFR (BEAKER) (test 22 mL/min/1.73 sq m ESTIMATED GFR IS NOT ttek=0589) ACCURATE CREATININE CLEARANCE IN PREDICTING GLOMERULAR FILTRATION RATE. ESTIMATED GFR IS NOT APPLICABLE FOR DIALYSIS PATIENTS. [id number] 03:37:00 Test Item Value Reference Range Comments PHOSPHORUS (BEAKER) (test dqiu=983) 4.6 mg/dL 2.3-4.7 [id number] 03:37:00 Test Item Value Reference Range Comments MAGNESIUM (BEAKER) (test fdmm=019) 1.7 mg/dL 1.6-2.6 CBC W/PLT COUNT & AUTO [id number] 03:36:00 Test Item Value Reference Range Comments WHITE BLOOD CELL COUNT (BEAKER) (test zwqu=066) 23.8 K/ L 4.0-10.0 RED BLOOD CELL COUNT (BEAKER) (test jeid=848) 2.80 M/ L 4.20-5.80 HEMOGLOBIN (BEAKER) (test adel=613) 8.3 GM/DL 13.0-16.8 HEMATOCRIT (BEAKER) (test dawi=895) 25.7 % 40.0-50.0 MEAN CORPUSCULAR VOLUME (BEAKER) (test xnzk=541) 91.8 fL 82.0-98.0 MEAN CORPUSCULAR HEMOGLOBIN (BEAKER) (test 29.6 pg 27.0-33.0 rtuk=938) MEAN CORPUSCULAR HEMOGLOBIN CONC (BEAKER) (test 32.2 GM/DL 32.0-36.0 zcuh=932) RED CELL DISTRIBUTION WIDTH (BEAKER) (test 14.8 % 10.3-14.2 nupu=081) PLATELET COUNT (BEAKER) (test whsx=141) 261 K/CU MM 150-430 MEAN PLATELET VOLUME (BEAKER) (test nquu=452) 6.4 fL 6.5-10.5 NUCLEATED RED BLOOD CELLS (BEAKER) (test 0 /100 WBC 0-0 mntt=707) NEUTROPHILS RELATIVE PERCENT (BEAKER) (test 88 % xvyf=840) LYMPHOCYTES RELATIVE PERCENT (BEAKER) (test 6 % hmcc=337) MONOCYTES RELATIVE PERCENT (BEAKER) (test 6 % gmzv=540) EOSINOPHILS RELATIVE PERCENT (BEAKER) (test 0 % ffme=763) BASOPHILS RELATIVE PERCENT (BEAKER) (test 0 % mpxg=164) NEUTROPHILS ABSOLUTE COUNT (BEAKER) (test 21.00 K/ L 1.80-8.00 ndpd=188) LYMPHOCYTES ABSOLUTE COUNT (BEAKER) (test 1.16 K/ L 1.48-4.50 tbgn=694) MONOCYTES ABSOLUTE COUNT (BEAKER) (test 1.53 K/ L 0.00-1.30 xgfe=998) EOSINOPHILS ABSOLUTE COUNT (BEAKER) (test 0.08 K/ L 0.00-0.50 smkb=861) BASOPHILS ABSOLUTE COUNT (BEAKER) (test 0.03 K/ L 0.00-0.20 ynng=593) 0.00CALCIUM, [id number] 03:20:00 Test Item Value Reference Range Comments CALCIUM IONIZED (BEAKER) (test homx=830) 1.02 mmol/L 1.12-1.27 PH, BLOOD (BEAKER) (test igue=3445) 7.44 POCT-GLUCOSE [id number] 23:20:00 Test Item Value Reference Range Comments POC-GLUCOSE METER (BEAKER) 129 mg/dL 70-110 TESTED AT [facility] [address] [facility] (test cxll=6838) [facility] [address] POCT-GLUCOSE [id number] 16:47:00 Test Item Value Reference Range Comments POC-GLUCOSE METER (BEAKER) 120 mg/dL 70-110 TESTED AT [facility] [address] (test uysl=9618) [place] [address] SPIN/CONCENTRATION [id number] 13:52:00 Test Item Value Reference Range Comments CONCENTRATION CHARGED (BEAKER) (test cuwu=0746) Done SPIN/CONCENTRATION [id number] 13:52:00 Test Item Value Reference Range Comments CONCENTRATION CHARGED (BEAKER) (test xzrf=9518) Done BLOOD GAS, [id number] 08:32:00 Test Item Value Reference Range Comments PH ARTERIAL (BEAKER) (test gdkq=439) 7.41 7.35-7.45 PCO2 ARTERIAL (BEAKER) (test uzoe=109) 45 mmHg 35-45 PO2 ARTERIAL (BEAKER) (test vddc=163) 137 mmHg 80-90 O2 SATURATION ARTERIAL (BEAKER) (test ubcd=473) 98.7 % 96.0-97.0 HCO3 ARTERIAL (BEAKER) (test zwou=836) 28 mmol/L 21-29 BASE EXCESS ARTERIAL (BEAKER) (test ufwx=936) 2.8 mmol/L -2.0-3.0 PATIENT TEMPERATURE (BEAKER) (test njlu=3612) 37.0 C FIO2 (BEAKER) (test vywd=3325) 40.0 % CBC W/PLT COUNT & AUTO [id number] 08:04:00 Test Item Value Reference Range Comments WHITE BLOOD CELL COUNT (BEAKER) (test fkfx=676) 23.6 K/ L 4.0-10.0 RED BLOOD CELL COUNT (BEAKER) (test nbba=836) 3.04 M/ L 4.20-5.80 HEMOGLOBIN (BEAKER) (test tjdz=911) 8.9 GM/DL 13.0-16.8 HEMATOCRIT (BEAKER) (test gnsg=288) 26.9 % 40.0-50.0 MEAN CORPUSCULAR VOLUME (BEAKER) (test ndpi=567) 88.6 fL 82.0-98.0 MEAN CORPUSCULAR HEMOGLOBIN (BEAKER) (test 29.4 pg 27.0-33.0 dwgi=323) MEAN CORPUSCULAR HEMOGLOBIN CONC (BEAKER) (test 33.2 GM/DL 32.0-36.0 tsdd=580) RED CELL DISTRIBUTION WIDTH (BEAKER) (test 15.4 % 10.3-14.2 gctc=241) PLATELET COUNT (BEAKER) (test uwur=903) 291 K/CU MM 150-430 MEAN PLATELET VOLUME (BEAKER) (test ujgt=424) 6.9 fL 6.5-10.5 NUCLEATED RED BLOOD CELLS (BEAKER) (test 0 /100 WBC 0-0 jjlh=940) NEUTROPHILS RELATIVE PERCENT (BEAKER) (test 89 % mxxl=348) LYMPHOCYTES RELATIVE PERCENT (BEAKER) (test 5 % zavm=702) MONOCYTES RELATIVE PERCENT (BEAKER) (test 6 % gsyl=871) EOSINOPHILS RELATIVE PERCENT (BEAKER) (test 0 % vpys=380) BASOPHILS RELATIVE PERCENT (BEAKER) (test 0 % mgau=167) NEUTROPHILS ABSOLUTE COUNT (BEAKER) (test 21.00 K/ L 1.80-8.00 lcby=178) LYMPHOCYTES ABSOLUTE COUNT (BEAKER) (test 1.17 K/ L 1.48-4.50 rydq=414) MONOCYTES ABSOLUTE COUNT (BEAKER) (test 1.37 K/ L 0.00-1.30 inde=598) EOSINOPHILS ABSOLUTE COUNT (BEAKER) (test 0.04 K/ L 0.00-0.50 hxti=084) BASOPHILS ABSOLUTE COUNT (BEAKER) (test 0.02 K/ L 0.00-0.20 pzio=318) 0.00(MANUAL DIFFERENTIAL)2016-12-13 08:04:00 Test Item Value Reference Range Comments TOTAL COUNTED (BEAKER) (test ptqh=4560) WBC MORPHOLOGY (BEAKER) (test nwub=914) Normal PLT MORPHOLOGY (BEAKER) (test subt=121) Normal HYPOCHROMIA (BEAKER) (test emfl=677) 1+ few POCT-GLUCOSE [id number] 07:23:00 Test Item Value Reference Range Comments POC-GLUCOSE METER (BEAKER) 116 mg/dL 70-110 TESTED AT [address] (test nygl=7632) [facility] [address] POCT-GLUCOSE [id number] 06:31:00 Test Item Value Reference Range Comments POC-GLUCOSE METER (BEAKER) 115 mg/dL 70-110 TESTED AT [address] (test tahj=3769) [facility] [address] CALCIUM, [id number] 05:09:00 Test Item Value Reference Range Comments CALCIUM IONIZED (BEAKER) (test ystj=968) 1.06 mmol/L 1.12-1.27 PH, BLOOD (BEAKER) (test eahg=0170) 7.46 BASIC METABOLIC [id number] 04:49:00 Test Item Value Reference Range Comments SODIUM (BEAKER) (test 139 meq/L 136-145 eehj=017) POTASSIUM (BEAKER) (test 4.5 meq/L 3.5-5.1 mwge=671) CHLORIDE (BEAKER) (test 106 meq/L 98-107 wlwn=059) CO2 (BEAKER) (test 26 meq/L 22-29 sbzu=003) BLOOD UREA NITROGEN 14 mg/dL 7-21 (BEAKER) (test ovlr=913) CREATININE (BEAKER) (test 2.20 mg/dL 0.57-1.25 kbve=793) GLUCOSE RANDOM (BEAKER) 138 mg/dL 70-105 (test txbn=482) CALCIUM (BEAKER) (test 7.8 mg/dL 8.4-10.2 vypo=794) EGFR (BEAKER) (test 31 mL/min/1.73 sq m ESTIMATED GFR IS NOT paks=1129) ACCURATE CREATININE CLEARANCE IN PREDICTING GLOMERULAR FILTRATION RATE. ESTIMATED GFR IS NOT APPLICABLE FOR DIALYSIS PATIENTS. [id number] 04:47:00 Test Item Value Reference Range Comments PHOSPHORUS (BEAKER) (test wkeb=408) 3.8 mg/dL 2.3-4.7 [id number] 04:47:00 Test Item Value Reference Range Comments MAGNESIUM (BEAKER) (test iwdf=582) 1.6 mg/dL 1.6-2.6 POCT-GLUCOSE [id number] 00:17:00 Test Item Value Reference Range Comments POC-GLUCOSE METER (BEAKER) 165 mg/dL 70-110 TESTED AT [place] [id number] [facility] (test pblk=9045) [facility] [address] POCT-GLUCOSE [id number] 19:50:00 Test Item Value Reference Range Comments POC-GLUCOSE METER (BEAKER) 150 mg/dL 70-110 TESTED AT [address] (test qkrs=7751) [facility] [address] GLUCOSE-STAT [id number] 16:40:00 Test Item Value Reference Range Comments GLUCOSE RANDOM (BEAKER) (test vdls=204) 93 mg/dL 70-110 SODIUM NA-STAT [id number] 16:40:00 Test Item Value Reference Range Comments SODIUM (BEAKER) (test nsjh=935) 136 meq/L 135-148 POTASSIUM-STAT [id number] 16:40:00 Test Item Value Reference Range Comments POTASSIUM (BEAKER) (test nwrc=136) 3.8 meq/L 3.6-5.5 BLOOD GAS, [id number] 16:40:00 Test Item Value Reference Range Comments PH ARTERIAL (BEAKER) (test zaep=195) 7.45 7.35-7.45 PCO2 ARTERIAL (BEAKER) (test excv=889) 46 mmHg 35-45 PO2 ARTERIAL (BEAKER) (test bdwj=649) 371 mmHg 80-90 O2 SATURATION ARTERIAL (BEAKER) (test tfsm=473) 99.8 % 96.0-97.0 HCO3 ARTERIAL (BEAKER) (test vfsu=436) 31 mmol/L 21-29 BASE EXCESS ARTERIAL (BEAKER) (test wsnt=510) 6.0 mmol/L -2.0-3.0 PATIENT TEMPERATURE (BEAKER) (test bmlt=9275) 37.0 C FIO2 (BEAKER) (test hiis=7312) 60.0 % HGB/HCT (H&H) - STAT [id number] 16:40:00 Test Item Value Reference Range Comments HEMOGLOBIN (BEAKER) (test hvml=686) 6.3 g/dL 13.0-16.8 HEMATOCRIT (BEAKER) (test xdyj=674) 19.0 % 40.0-50.0 GLUCOSE-STAT [id number] 16:14:00 Test Item Value Reference Range Comments GLUCOSE RANDOM (BEAKER) (test dnxy=677) 89 mg/dL 70-110 [id number] 13:22:00 Test Item Value Reference Range Comments PARTIAL THROMBOPLASTIN TIME (BEAKER) (test 80.1 seconds 22.5-36.0 ngtn=886) POCT-GLUCOSE [id number] 11:57:00 Test Item Value Reference Range Comments POC-GLUCOSE METER (BEAKER) 82 mg/dL 70-110 TESTED AT [address] (test xgtc=5330) [facility] [address] POCT-GLUCOSE [id number] 08:15:00 Test Item Value Reference Range Comments POC-GLUCOSE METER (BEAKER) 90 mg/dL 70-110 TESTED AT [place] [id number] [facility] (test kroe=4604) [facility] [address] CBC W/PLT COUNT & AUTO [id number] 05:50:00 Test Item Value Reference Range Comments WHITE BLOOD CELL COUNT (BEAKER) (test nryr=339) 13.9 K/ L 4.0-10.0 RED BLOOD CELL COUNT (BEAKER) (test enei=916) 2.42 M/ L 4.20-5.80 HEMOGLOBIN (BEAKER) (test efvw=162) 7.2 GM/DL 13.0-16.8 HEMATOCRIT (BEAKER) (test itss=927) 21.8 % 40.0-50.0 MEAN CORPUSCULAR VOLUME (BEAKER) (test obqu=626) 90.3 fL 82.0-98.0 MEAN CORPUSCULAR HEMOGLOBIN (BEAKER) (test 29.5 pg 27.0-33.0 qugv=785) MEAN CORPUSCULAR HEMOGLOBIN CONC (BEAKER) (test 32.7 GM/DL 32.0-36.0 ghit=471) RED CELL DISTRIBUTION WIDTH (BEAKER) (test 15.9 % 10.3-14.2 gpeq=572) PLATELET COUNT (BEAKER) (test aehu=528) 282 K/CU MM 150-430 MEAN PLATELET VOLUME (BEAKER) (test vwdh=427) 6.8 fL 6.5-10.5 NUCLEATED RED BLOOD CELLS (BEAKER) (test 0 /100 WBC 0-0 jtin=238) NEUTROPHILS RELATIVE PERCENT (BEAKER) (test 78 % xrbm=142) LYMPHOCYTES RELATIVE PERCENT (BEAKER) (test 11 % rotf=034) MONOCYTES RELATIVE PERCENT (BEAKER) (test 9 % lbdu=494) EOSINOPHILS RELATIVE PERCENT (BEAKER) (test 1 % cnkt=607) BASOPHILS RELATIVE PERCENT (BEAKER) (test 0 % vwdr=117) NEUTROPHILS ABSOLUTE COUNT (BEAKER) (test 10.80 K/ L 1.80-8.00 tkus=979) LYMPHOCYTES ABSOLUTE COUNT (BEAKER) (test 1.57 K/ L 1.48-4.50 qeif=415) MONOCYTES ABSOLUTE COUNT (BEAKER) (test 1.30 K/ L 0.00-1.30 eqcc=142) EOSINOPHILS ABSOLUTE COUNT (BEAKER) (test 0.20 K/ L 0.00-0.50 udid=593) BASOPHILS ABSOLUTE COUNT (BEAKER) (test 0.04 K/ L 0.00-0.20 sevq=730) 0.00CALCIUM, [id number] 05:43:00 Test Item Value Reference Range Comments CALCIUM IONIZED (BEAKER) (test dwql=878) 0.97 mmol/L 1.12-1.27 PH, BLOOD (BEAKER) (test eqle=9642) 7.51 BASIC METABOLIC [id number] 05:35:00 Test Item Value Reference Range Comments SODIUM (BEAKER) (test 132 meq/L 136-145 iwol=405) POTASSIUM (BEAKER) (test 4.2 meq/L 3.5-5.1 xsaa=385) CHLORIDE (BEAKER) (test 102 meq/L 98-107 pxje=115) CO2 (BEAKER) (test 22 meq/L 22-29 agxa=689) BLOOD UREA NITROGEN 26 mg/dL 7-21 (BEAKER) (test kqfx=414) CREATININE (BEAKER) (test 3.57 mg/dL 0.57-1.25 snyu=329) GLUCOSE RANDOM (BEAKER) 69 mg/dL 70-105 (test lwbj=095) CALCIUM (BEAKER) (test 7.6 mg/dL 8.4-10.2 wuuo=111) EGFR (BEAKER) (test 18 mL/min/1.73 sq m ESTIMATED GFR IS NOT ogfh=0111) ACCURATE CREATININE CLEARANCE IN PREDICTING GLOMERULAR FILTRATION RATE. ESTIMATED GFR IS NOT APPLICABLE FOR DIALYSIS PATIENTS. [id number] 05:31:00 Test Item Value Reference Range Comments PHOSPHORUS (BEAKER) (test kmpa=672) 3.7 mg/dL 2.3-4.7 [id number] 05:31:00 Test Item Value Reference Range Comments MAGNESIUM (BEAKER) (test zqqx=842) 1.8 mg/dL 1.6-2.6 [id number] 05:30:00 Test Item Value Reference Range Comments PARTIAL THROMBOPLASTIN TIME (BEAKER) (test 44.4 seconds 22.5-36.0 nsba=985) PROTHROMBIN [id number] 05:29:00 Test Item Value Reference Range Comments PROTIME (BEAKER) (test uaph=655) 14.5 seconds 11.7-14.7 INR (BEAKER) (test yfrf=979) 1.1 <=5.9 RECOMMENDED COUMADIN/WARFARIN INR THERAPY RANGESSTANDARD DOSE: 2.0 - 3.0 Includes: PROPHYLAXIS forvenous thrombosis, systemic embolization; TREATMENT for venous thrombosis and/or pulmonary embolus.HIGH RISK: Target INR is 2.5-3.5 for patients with mechanical heart valves.POCT-GLUCOSE [id number] 22:10:00 Test Item Value Reference Range Comments POC-GLUCOSE METER (BEAKER) 106 mg/dL 70-110 TESTED AT [address] (test urhs=8021) [place] [address] POCT-GLUCOSE [id number] 17:31:00 Test Item Value Reference Range Comments POC-GLUCOSE METER (BEAKER) 114 mg/dL 70-110 TESTED AT [address] (test oqqk=2051) [place] [address] [id number] 15:36:00 Test Item Value Reference Range Comments PARTIAL THROMBOPLASTIN TIME (BEAKER) (test 38.5 seconds 22.5-36.0 mlct=746) PROTHROMBIN [id number] 15:35:00 Test Item Value Reference Range Comments PROTIME (BEAKER) (test whbi=762) 14.6 seconds 11.7-14.7 INR (BEAKER) (test jbgm=703) 1.2 <=5.9 RECOMMENDED COUMADIN/WARFARIN INR THERAPY RANGESSTANDARD DOSE: 2.0 - 3.0 Includes: PROPHYLAXIS forvenous thrombosis, systemic embolization; TREATMENT for venous thrombosis and/or pulmonary embolus.HIGH RISK: Target INR is 2.5-3.5 for patients with mechanical heart valves.POCT-GLUCOSE [id number] 12:12:00 Test Item Value Reference Range Comments POC-GLUCOSE METER (BEAKER) 130 mg/dL 70-110 TESTED AT [address] (test wqpo=4444) [place] [id number] POCT-GLUCOSE [id number] 08:04:00 Test Item Value Reference Range Comments POC-GLUCOSE METER (BEAKER) 96 mg/dL 70-110 TESTED AT [address] (test pres=5875) [facility] [address] VANCOMYCIN LEVEL, [id number] 07:30:00 Test Item Value Reference Range Comments VANCOMYCIN RANDOM (BEAKER) (test hkac=336) 21.2 ug/mL Reference Range: No NormalsPOCT-GLUCOSE [id number] 20:25:00 Test Item Value Reference Range Comments POC-GLUCOSE METER (BEAKER) 152 mg/dL 70-110 TESTED AT [address] (test qwvx=3137) [place] [id number] POCT-GLUCOSE [id number] 17:23:00 Test Item Value Reference Range Comments POC-GLUCOSE METER (BEAKER) 161 mg/dL 70-110 TESTED AT [address] (test yovc=0509) [place] [id number] [id number] 13:34:00 Test Item Value Reference Range Comments PROTIME (BEAKER) (test kpll=120) 15.4 seconds 11.7-14.7 INR (BEAKER) (test uejg=657) 1.2 <=5.9 PARTIAL THROMBOPLASTIN TIME (BEAKER) (test 51.5 seconds 22.5-36.0 ynzo=433) RECOMMENDED COUMADIN/WARFARIN INR THERAPY RANGESSTANDARD DOSE: 2.0 - 3.0 Includes: PROPHYLAXIS forvenous thrombosis, systemic embolization; TREATMENT for venous thrombosis and/or pulmonary embolus.HIGH RISK: Target INR is 2.5-3.5 for patients with mechanical heart valves.POCT-GLUCOSE [id number] 12:11:00 Test Item Value Reference Range Comments POC-GLUCOSE METER (BEAKER) 140 mg/dL 70-110 TESTED AT [address] (test qofq=0622) [place] [id number] CBC W/PLT COUNT & AUTO [id number] 08:02:00 Test Item Value Reference Range Comments WHITE BLOOD CELL COUNT (BEAKER) (test gttw=197) 14.8 K/ L 4.0-10.0 RED BLOOD CELL COUNT (BEAKER) (test uhhe=636) 2.40 M/ L 4.20-5.80 HEMOGLOBIN (BEAKER) (test xvyg=666) 7.0 GM/DL 13.0-16.8 HEMATOCRIT (BEAKER) (test jeae=874) 21.6 % 40.0-50.0 MEAN CORPUSCULAR VOLUME (BEAKER) (test xzvw=268) 90.0 fL 82.0-98.0 MEAN CORPUSCULAR HEMOGLOBIN (BEAKER) (test 29.2 pg 27.0-33.0 wsyh=473) MEAN CORPUSCULAR HEMOGLOBIN CONC (BEAKER) (test 32.5 GM/DL 32.0-36.0 eykh=274) RED CELL DISTRIBUTION WIDTH (BEAKER) (test 15.8 % 10.3-14.2 tcvu=918) PLATELET COUNT (BEAKER) (test tfxs=067) 276 K/CU MM 150-430 MEAN PLATELET VOLUME (BEAKER) (test bjrb=366) 6.8 fL 6.5-10.5 NUCLEATED RED BLOOD CELLS (BEAKER) (test 0 /100 WBC 0-0 dyym=131) NEUTROPHILS RELATIVE PERCENT (BEAKER) (test 80 % kcai=891) LYMPHOCYTES RELATIVE PERCENT (BEAKER) (test 10 % uaux=335) MONOCYTES RELATIVE PERCENT (BEAKER) (test 9 % jzed=593) EOSINOPHILS RELATIVE PERCENT (BEAKER) (test 1 % udxq=994) BASOPHILS RELATIVE PERCENT (BEAKER) (test 0 % zici=117) NEUTROPHILS ABSOLUTE COUNT (BEAKER) (test 11.80 K/ L 1.80-8.00 fllx=415) LYMPHOCYTES ABSOLUTE COUNT (BEAKER) (test 1.49 K/ L 1.48-4.50 nmom=496) MONOCYTES ABSOLUTE COUNT (BEAKER) (test 1.28 K/ L 0.00-1.30 klbt=175) EOSINOPHILS ABSOLUTE COUNT (BEAKER) (test 0.17 K/ L 0.00-0.50 svlo=207) BASOPHILS ABSOLUTE COUNT (BEAKER) (test 0.04 K/ L 0.00-0.20 hhdp=147) 0.00VANCOMYCIN LEVEL, [id number] 07:43:00 Test Item Value Reference Range Comments VANCOMYCIN RANDOM (BEAKER) (test ohfe=792) 31.1 ug/mL Reference Range: No NormalsBASIC METABOLIC [id number] 07:30:00 Test Item Value Reference Range Comments SODIUM (BEAKER) (test 134 meq/L 136-145 ziud=166) POTASSIUM (BEAKER) (test 3.6 meq/L 3.5-5.1 kcav=846) CHLORIDE (BEAKER) (test 100 meq/L 98-107 llnk=880) CO2 (BEAKER) (test 27 meq/L 22-29 bztf=352) BLOOD UREA NITROGEN 12 mg/dL 7-21 (BEAKER) (test nasd=404) CREATININE (BEAKER) (test 1.88 mg/dL 0.57-1.25 wkph=583) GLUCOSE RANDOM (BEAKER) 109 mg/dL 70-105 (test pdli=604) CALCIUM (BEAKER) (test 7.7 mg/dL 8.4-10.2 ivou=733) EGFR (BEAKER) (test 37 mL/min/1.73 sq m ESTIMATED GFR IS NOT avqw=4528) ACCURATE CREATININE CLEARANCE IN PREDICTING GLOMERULAR FILTRATION RATE. ESTIMATED GFR IS NOT APPLICABLE FOR DIALYSIS PATIENTS. [id number] 07:25:00 Test Item Value Reference Range Comments PHOSPHORUS (BEAKER) (test jvvz=718) 2.9 mg/dL 2.3-4.7 [id number] 07:25:00 Test Item Value Reference Range Comments MAGNESIUM (BEAKER) (test yiaf=457) 1.3 mg/dL 1.6-2.6 POCT-GLUCOSE [id number] 07:18:00 Test Item Value Reference Range Comments POC-GLUCOSE METER (BEAKER) 107 mg/dL 70-110 TESTED AT [facility] [address] [facility] (test bpzk=6013) [facility] [address] CALCIUM, [id number] 06:57:00 Test Item Value Reference Range Comments CALCIUM IONIZED (BEAKER) (test fysj=216) 1.04 mmol/L 1.12-1.27 PH, BLOOD (BEAKER) (test fqlg=0024) 7.44 BLOOD [id number] 17:00:00 Test Item Value Reference Range Comments CULTURE (BEAKER) (test dzri=1571) No growth in 5 days BLOOD [id number] 17:00:00 Test Item Value Reference Range Comments CULTURE (BEAKER) (test jhkw=4765) No growth in 5 days POCT-GLUCOSE [id number] 12:01:00 Test Item Value Reference Range Comments POC-GLUCOSE METER (BEAKER) 128 mg/dL 70-110 TESTED AT [facility] [address] [facility] (test rlcz=0636) [facility] [address] POCT-GLUCOSE [id number] 07:48:00 Test Item Value Reference Range Comments POC-GLUCOSE METER (BEAKER) 100 mg/dL 70-110 TESTED AT [place] [id number] [facility] (test abbz=6674) [facility] [address] VANCOMYCIN LEVEL, [id number] 05:36:00 Test Item Value Reference Range Comments VANCOMYCIN RANDOM (BEAKER) (test fkuv=186) 26.8 ug/mL Reference Range: No NormalsSPUTUM CULTURE + GRAM [id number] 00:09:00 Test Item Value Reference Range Comments CULTURE (BEAKER) (test Oropharyngeal contamination, ggns=3704) specimen rejected. Recollect requested. GRAM STAIN RESULT (BEAKER) No WBCs (test ofay=4078) GRAM STAIN RESULT (BEAKER) >25 epithelial cells (test mple=78554) GRAM STAIN RESULT (BEAKER) 4+ gram positive rods (test wskh=66492) GRAM STAIN RESULT (BEAKER) 4+ gram positive cocci in pairs (test gtzm=888913) GRAM STAIN RESULT (BEAKER) 4+ budding yeast (test bsum=545736) POCT-GLUCOSE [id number] 20:17:00 Test Item Value Reference Range Comments POC-GLUCOSE METER (BEAKER) 111 mg/dL 70-110 TESTED AT [facility] [address] [facility] (test mnsi=4040) [facility] [address] TSH/FREE T4 IF [id number] 18:39:00 Test Item Value Reference Range Comments THYROID STIMULATING HORMONE (BEAKER) (test 3.14 uIU/mL 0.35-4.94 rtzc=241) VITAMIN B12 AND [id number] 18:39:00 Test Item Value Reference Range Comments VITAMIN B12 (BEAKER) (test dssk=533) 1407 pg/mL 213-816 FOLATE (BEAKER) (test pfgr=042) 16.4 ng/mL >=7.0 Effective 09/08/2014: Folate Reference Range ChangeNew: >=7.0 Previous: & gt;=[id number] 18:12:00 Test Item Value Reference Range Comments CALCIUM (BEAKER) (test kvjs=932) 8.2 mg/dL 8.4-10.2 PROTHROMBIN [id number] 18:07:00 Test Item Value Reference Range Comments PROTIME (BEAKER) (test gzaa=381) 15.5 seconds 11.7-14.7 INR (BEAKER) (test bbqf=289) 1.2 <=5.9 RECOMMENDED COUMADIN/WARFARIN INR THERAPY RANGESSTANDARD DOSE: 2.0 - 3.0 Includes: PROPHYLAXIS forvenous thrombosis, systemic embolization; TREATMENT for venous thrombosis and/or pulmonary embolus.HIGH RISK: Target INR is 2.5-3.5 for patients with mechanical heart valves.[id number] 18:06:00 Test Item Value Reference Range Comments PHOSPHORUS (BEAKER) (test lpkm=033) 3.4 mg/dL 2.3-4.7 [id number] 18:06:00 Test Item Value Reference Range Comments MAGNESIUM (BEAKER) (test yxlg=212) 1.5 mg/dL 1.6-2.6 HEPATIC FUNCTION [id number] 18:06:00 Test Item Value Reference Range Comments TOTAL PROTEIN (BEAKER) (test uazi=160) 5.9 gm/dL 6.0-8.3 ALBUMIN (BEAKER) (test jdvn=2167) 2.3 g/dL 3.5-5.0 BILIRUBIN TOTAL (BEAKER) (test vjif=980) 0.4 mg/dL 0.2-1.2 BILIRUBIN DIRECT (BEAKER) (test zdaz=991) 0.2 mg/dL 0.1-0.5 ALKALINE PHOSPHATASE (BEAKER) (test dore=760) 118 U/L 40-150 AST (SGOT) (BEAKER) (test ubun=019) 11 U/L 5-34 ALT (SGPT) (BEAKER) (test ksza=232) 7 U/L 6-55 [id number] 17:57:00 Test Item Value Reference Range Comments AMMONIA (BEAKER) (test xeqn=727) 23 mol/L 18-72 POCT-GLUCOSE [id number] 17:55:00 Test Item Value Reference Range Comments POC-GLUCOSE METER (BEAKER) 137 mg/dL 70-110 TESTED AT [address] (test diju=9815) [facility] [address] POCT-GLUCOSE [id number] 17:01:00 Test Item Value Reference Range Comments POC-GLUCOSE METER (BEAKER) 62 mg/dL 70-110 TESTED AT [place] [id number] [facility] (test cxbn=7857) [facility] [address] [id number] 15:09:00 Test Item Value Reference Range Comments SODIUM (BEAKER) (test lcqg=710) 138 meq/L 136-145 POTASSIUM (BEAKER) (test 4.0 meq/L 3.5-5.1 Specimen slightly hemolyzed moat=705) CHLORIDE (BEAKER) (test 105 meq/L 98-107 wnem=510) CO2 (BEAKER) (test tzco=782) 23 meq/L 22-29 BLOOD GAS, [id number] 14:56:00 Test Item Value Reference Range Comments PH ARTERIAL (BEAKER) (test lyaq=327) 7.53 7.35-7.45 PCO2 ARTERIAL (BEAKER) (test attn=878) 35 mmHg 35-45 PO2 ARTERIAL (BEAKER) (test pbro=050) 70 mmHg 80-90 O2 SATURATION ARTERIAL (BEAKER) (test yoam=156) 95.5 % 96.0-97.0 HCO3 ARTERIAL (BEAKER) (test cggw=018) 28 mmol/L 21-29 BASE EXCESS ARTERIAL (BEAKER) (test pbjs=770) 5.2 mmol/L -2.0-3.0 PATIENT TEMPERATURE (BEAKER) (test xznb=1227) 37.3 C FIO2 (BEAKER) (test wogl=2004) 21.0 % CBC W/PLT COUNT & AUTO [id number] 14:56:00 Test Item Value Reference Range Comments WHITE BLOOD CELL COUNT (BEAKER) (test zhoq=347) 18.1 K/ L 4.0-10.0 RED BLOOD CELL COUNT (BEAKER) (test xmre=273) 2.43 M/ L 4.20-5.80 HEMOGLOBIN (BEAKER) (test ghml=727) 7.3 GM/DL 13.0-16.8 HEMATOCRIT (BEAKER) (test fgiy=997) 22.2 % 40.0-50.0 MEAN CORPUSCULAR VOLUME (BEAKER) (test aghu=780) 91.7 fL 82.0-98.0 MEAN CORPUSCULAR HEMOGLOBIN (BEAKER) (test 30.0 pg 27.0-33.0 yscy=726) MEAN CORPUSCULAR HEMOGLOBIN CONC (BEAKER) (test 32.7 GM/DL 32.0-36.0 pvwp=397) RED CELL DISTRIBUTION WIDTH (BEAKER) (test 15.7 % 10.3-14.2 wqhp=812) PLATELET COUNT (BEAKER) (test efld=998) 290 K/CU MM 150-430 MEAN PLATELET VOLUME (BEAKER) (test gvzs=424) 6.9 fL 6.5-10.5 NUCLEATED RED BLOOD CELLS (BEAKER) (test 0 /100 WBC 0-0 ckck=757) NEUTROPHILS RELATIVE PERCENT (BEAKER) (test 84 % yykt=394) LYMPHOCYTES RELATIVE PERCENT (BEAKER) (test 8 % iwqb=775) MONOCYTES RELATIVE PERCENT (BEAKER) (test 8 % sfve=203) EOSINOPHILS RELATIVE PERCENT (BEAKER) (test 0 % bdtq=527) BASOPHILS RELATIVE PERCENT (BEAKER) (test 0 % zqyw=687) NEUTROPHILS ABSOLUTE COUNT (BEAKER) (test 15.10 K/ L 1.80-8.00 ubip=350) LYMPHOCYTES ABSOLUTE COUNT (BEAKER) (test 1.51 K/ L 1.48-4.50 irmf=219) MONOCYTES ABSOLUTE COUNT (BEAKER) (test 1.43 K/ L 0.00-1.30 xcce=075) EOSINOPHILS ABSOLUTE COUNT (BEAKER) (test 0.03 K/ L 0.00-0.50 mbyk=499) BASOPHILS ABSOLUTE COUNT (BEAKER) (test 0.02 K/ L 0.00-0.20 xvod=999) 0.00POCT-GLUCOSE [id number] 12:19:00 Test Item Value Reference Range Comments POC-GLUCOSE METER (BEAKER) 75 mg/dL 70-110 TESTED AT [facility] [address] [facility] (test etvo=9168) [facility] [address] [id number] 09:59:00 Test Item Value Reference Range Comments HAPTOGLOBIN (BEAKER) (test ftsj=744) > mg/dL 14- Effective 09/08/2014: Reference Range ChangeNew: 14-258 Previous: 36- 195LACTATE DEHYDROGENASE (LDH)2016-12-08 09:56:00 Test Item Value Reference Range Comments LACTATE DEHYDROGENASE (BEAKER) (test qpgh=003) 234 U/L 125-220 [id number] 09:35:00 Test Item Value Reference Range Comments FIBRINOGEN LEVEL (BEAKER) (test wywg=102) 554 mg/dl 225-434 BASIC METABOLIC [id number] 08:56:00 Test Item Value Reference Range Comments SODIUM (BEAKER) (test 139 meq/L 136-145 gzlx=799) POTASSIUM (BEAKER) (test 3.0 meq/L 3.5-5.1 ncqg=707) CHLORIDE (BEAKER) (test 114 meq/L 98-107 cwdg=269) CO2 (BEAKER) (test 18 meq/L 22-29 rvqk=703) BLOOD UREA NITROGEN 14 mg/dL 7-21 (BEAKER) (test fqjs=699) CREATININE (BEAKER) (test 1.68 mg/dL 0.57-1.25 ayoh=300) GLUCOSE RANDOM (BEAKER) 65 mg/dL 70-105 (test xfxb=844) CALCIUM (BEAKER) (test 6.3 mg/dL 8.4-10.2 vfij=081) EGFR (BEAKER) (test 42 mL/min/1.73 sq m ESTIMATED GFR IS NOT hyfy=6986) ACCURATE CREATININE CLEARANCE IN PREDICTING GLOMERULAR FILTRATION RATE. ESTIMATED GFR IS NOT APPLICABLE FOR DIALYSIS PATIENTS. CBC W/PLT COUNT & AUTO [id number] 08:55:00 Test Item Value Reference Range Comments WHITE BLOOD CELL COUNT (BEAKER) (test zwki=236) 12.8 K/ L 4.0-10.0 RED BLOOD CELL COUNT (BEAKER) (test qkhk=349) 1.79 M/ L 4.20-5.80 HEMOGLOBIN (BEAKER) (test nffz=386) 5.4 GM/DL 13.0-16.8 HEMATOCRIT (BEAKER) (test kvmz=099) 16.7 % 40.0-50.0 MEAN CORPUSCULAR VOLUME (BEAKER) (test gswm=434) 93.5 fL 82.0-98.0 MEAN CORPUSCULAR HEMOGLOBIN (BEAKER) (test 30.2 pg 27.0-33.0 svdi=058) MEAN CORPUSCULAR HEMOGLOBIN CONC (BEAKER) (test 32.3 GM/DL 32.0-36.0 qttp=794) RED CELL DISTRIBUTION WIDTH (BEAKER) (test 15.9 % 10.3-14.2 chli=419) PLATELET COUNT (BEAKER) (test uger=190) 211 K/CU MM 150-430 MEAN PLATELET VOLUME (BEAKER) (test fdna=083) 6.8 fL 6.5-10.5 NUCLEATED RED BLOOD CELLS (BEAKER) (test 0 /100 WBC 0-0 lozb=932) NEUTROPHILS RELATIVE PERCENT (BEAKER) (test 82 % rozj=912) LYMPHOCYTES RELATIVE PERCENT (BEAKER) (test 8 % taai=995) MONOCYTES RELATIVE PERCENT (BEAKER) (test 9 % ieol=671) EOSINOPHILS RELATIVE PERCENT (BEAKER) (test 0 % cima=681) BASOPHILS RELATIVE PERCENT (BEAKER) (test 0 % jvem=228) NEUTROPHILS ABSOLUTE COUNT (BEAKER) (test 10.50 K/ L 1.80-8.00 tfgx=356) LYMPHOCYTES ABSOLUTE COUNT (BEAKER) (test 1.08 K/ L 1.48-4.50 ewpp=844) MONOCYTES ABSOLUTE COUNT (BEAKER) (test 1.17 K/ L 0.00-1.30 zxvd=430) EOSINOPHILS ABSOLUTE COUNT (BEAKER) (test 0.06 K/ L 0.00-0.50 dewq=890) BASOPHILS ABSOLUTE COUNT (BEAKER) (test 0.04 K/ L 0.00-0.20 iosj=347) 0.00LACTIC ACID, VENOUS, WHOLE [id number] 08:52:00 Test Item Value Reference Range Comments LACTATE BLOOD VENOUS (2) (BEAKER) (test 0.5 mmol/L 0.5-2.2 piyf=5316) Effective 02/23/2016: Units/Reference Range ChangeNew: 0.5-2.2 mmol/L Previous: 5 -20 mg/dLPOCT-GLUCOSE [id number] 07:40:00 Test Item Value Reference Range Comments POC-GLUCOSE METER (BEAKER) 80 mg/dL 70-110 TESTED AT [facility] [address] (test hfar=7347) [facility] [address] POCT-GLUCOSE [id number] 21:47:00 Test Item Value Reference Range Comments POC-GLUCOSE METER (BEAKER) 97 mg/dL 70-110 TESTED AT [address] (test xbib=9636) [facility] [address] POCT-GLUCOSE [id number] 17:45:00 Test Item Value Reference Range Comments POC-GLUCOSE METER (BEAKER) 115 mg/dL 70-110 TESTED AT [address] (test qrcy=5969) [facility] [address] POCT-GLUCOSE [id number] 12:56:00 Test Item Value Reference Range Comments POC-GLUCOSE METER (BEAKER) 120 mg/dL 70-110 TESTED AT [address] (test oahf=9112) [facility] [address] POCT-GLUCOSE [id number] 12:56:00 Test Item Value Reference Range Comments POC-GLUCOSE METER (BEAKER) 107 mg/dL 70-110 TESTED AT [address] (test ouhb=0917) [facility] [address] CBC W/PLT COUNT & AUTO [id number] 11:18:00 Test Item Value Reference Range Comments WHITE BLOOD CELL COUNT (BEAKER) (test mfvq=269) 21.4 K/ L 4.0-10.0 RED BLOOD CELL COUNT (BEAKER) (test yvai=617) 2.63 M/ L 4.20-5.80 HEMOGLOBIN (BEAKER) (test xnxf=085) 7.5 GM/DL 13.0-16.8 HEMATOCRIT (BEAKER) (test pavd=810) 24.1 % 40.0-50.0 MEAN CORPUSCULAR VOLUME (BEAKER) (test bchw=812) 91.8 fL 82.0-98.0 MEAN CORPUSCULAR HEMOGLOBIN (BEAKER) (test 28.6 pg 27.0-33.0 jiqc=339) MEAN CORPUSCULAR HEMOGLOBIN CONC (BEAKER) (test 31.1 GM/DL 32.0-36.0 sfeh=087) RED CELL DISTRIBUTION WIDTH (BEAKER) (test 15.4 % 10.3-14.2 ohwp=638) PLATELET COUNT (BEAKER) (test znin=042) 297 K/CU MM 150-430 MEAN PLATELET VOLUME (BEAKER) (test wlst=811) 7.0 fL 6.5-10.5 NUCLEATED RED BLOOD CELLS (BEAKER) (test 0 /100 WBC 0-0 scvk=965) NEUTROPHILS RELATIVE PERCENT (BEAKER) (test 88 % tfly=067) LYMPHOCYTES RELATIVE PERCENT (BEAKER) (test 6 % trcb=619) MONOCYTES RELATIVE PERCENT (BEAKER) (test 6 % ughs=029) EOSINOPHILS RELATIVE PERCENT (BEAKER) (test 0 % kerq=901) BASOPHILS RELATIVE PERCENT (BEAKER) (test 0 % maxs=986) NEUTROPHILS ABSOLUTE COUNT (BEAKER) (test 18.90 K/ L 1.80-8.00 lweg=796) LYMPHOCYTES ABSOLUTE COUNT (BEAKER) (test 1.25 K/ L 1.48-4.50 opze=088) MONOCYTES ABSOLUTE COUNT (BEAKER) (test 1.26 K/ L 0.00-1.30 ctrw=934) EOSINOPHILS ABSOLUTE COUNT (BEAKER) (test 0.05 K/ L 0.00-0.50 lpbj=804) BASOPHILS ABSOLUTE COUNT (BEAKER) (test 0.01 K/ L 0.00-0.20 tiug=185) 0.000.520.000.000.560.000.000.000.00(MANUAL DIFFERENTIAL)2016-12-07 11:18:00 Test Item Value Reference Range Comments TOTAL COUNTED (BEAKER) (test vrhn=8791) CATHETER TIP [id number] 09:38:00 Test Item Value Reference Range Comments CULTURE (BEAKER) (test METHICILLIN RESISTANT 15-29 Colonies On dobr=3957) STAPHYLOCOCCUS AUREUS Direct Plate Methicillin resistant Staphylococcus aureus Clindamycin (test code=10) Erythromycin (test code=4) Linezolid (test code=40) Oxacillin (test code=14) Rifampin (test code=43) Tetracycline (test code=2) Trimethoprim + Sulfamethoxazole (test code=47) Vancomycin (test code=13) CULTURE (BEAKER) (test <15 Colonies On Direct pbhf=[id number]) Plate Methicillin resistant Staphylococcus aureusof a second type CALCIUM, [id number] 09:12:00 Test Item Value Reference Range Comments CALCIUM IONIZED (BEAKER) (test gqlm=041) 1.04 mmol/L 1.12-1.27 PH, BLOOD (BEAKER) (test zczm=2495) 7.40 BASIC METABOLIC [id number] 07:52:00 Test Item Value Reference Range Comments SODIUM (BEAKER) (test 134 meq/L 136-145 tjlm=695) POTASSIUM (BEAKER) (test 4.1 meq/L 3.5-5.1 iqur=703) CHLORIDE (BEAKER) (test 103 meq/L 98-107 uerr=573) CO2 (BEAKER) (test 20 meq/L 22-29 timf=541) BLOOD UREA NITROGEN 37 mg/dL 7-21 (BEAKER) (test ivdt=797) CREATININE (BEAKER) (test 3.25 mg/dL 0.57-1.25 gcrj=655) GLUCOSE RANDOM (BEAKER) 129 mg/dL 70-105 (test lkab=820) CALCIUM (BEAKER) (test 8.1 mg/dL 8.4-10.2 ckjx=839) EGFR (BEAKER) (test 20 mL/min/1.73 sq m ESTIMATED GFR IS NOT lgzn=4220) ACCURATE CREATININE CLEARANCE IN PREDICTING GLOMERULAR FILTRATION RATE. ESTIMATED GFR IS NOT APPLICABLE FOR DIALYSIS PATIENTS. [id number] 07:48:00 Test Item Value Reference Range Comments PHOSPHORUS (BEAKER) (test srho=918) 4.8 mg/dL 2.3-4.7 [id number] 07:48:00 Test Item Value Reference Range Comments MAGNESIUM (BEAKER) (test ceyp=312) 1.9 mg/dL 1.6-2.6 ANAEROBIC [id number] 02:42:00 Test Item Value Reference Range Comments CULTURE (BEAKER) (test jdgu=5574) No anaerobes isolated POCT-GLUCOSE [id number] 20:57:00 Test Item Value Reference Range Comments POC-GLUCOSE METER (BEAKER) 191 mg/dL 70-110 TESTED AT [address] (test pwqo=8772) [facility] [address] VANCOMYCIN LEVEL, [id number] 17:35:00 Test Item Value Reference Range Comments VANCOMYCIN RANDOM (BEAKER) (test lvje=646) 21.9 ug/mL Reference Range: No NormalsPOCT-GLUCOSE [id number] 13:28:00 Test Item Value Reference Range Comments POC-GLUCOSE METER (BEAKER) 202 mg/dL 70-110 TESTED AT [facility] [address] [place] [address] (test nvxc=5121) [facility] [address] POCT-GLUCOSE [id number] 08:30:00 Test Item Value Reference Range Comments POC-GLUCOSE METER (BEAKER) 144 mg/dL 70-110 TESTED AT [facility] [address] (test qbsf=8393) [facility] [address] BASIC METABOLIC [id number] 07:04:00 Test Item Value Reference Range Comments SODIUM (BEAKER) (test 134 meq/L 136-145 qwjp=809) POTASSIUM (BEAKER) (test 3.8 meq/L 3.5-5.1 zwas=118) CHLORIDE (BEAKER) (test 104 meq/L 98-107 gnzj=416) CO2 (BEAKER) (test 21 meq/L 22-29 eflv=818) BLOOD UREA NITROGEN 33 mg/dL 7-21 (BEAKER) (test pfbn=427) CREATININE (BEAKER) (test 2.91 mg/dL 0.57-1.25 kzgg=501) GLUCOSE RANDOM (BEAKER) 124 mg/dL 70-105 (test soui=676) CALCIUM (BEAKER) (test 7.8 mg/dL 8.4-10.2 idgm=947) EGFR (BEAKER) (test 22 mL/min/1.73 sq m ESTIMATED GFR IS NOT jcma=3011) ACCURATE CREATININE CLEARANCE IN PREDICTING GLOMERULAR FILTRATION RATE. ESTIMATED GFR IS NOT APPLICABLE FOR DIALYSIS PATIENTS. PROTHROMBIN [id number] 07:03:00 Test Item Value Reference Range Comments PROTIME (BEAKER) (test jswy=764) 14.7 seconds 11.7-14.7 INR (BEAKER) (test qdfa=125) 1.2 <=5.9 RECOMMENDED COUMADIN/WARFARIN INR THERAPY RANGESSTANDARD DOSE: 2.0 - 3.0 Includes: PROPHYLAXIS forvenous thrombosis, systemic embolization; TREATMENT for venous thrombosis and/or pulmonary embolus.HIGH RISK: Target INR is 2.5-3.5 for patients with mechanical heart valves.[id number] 07:01:00 Test Item Value Reference Range Comments PHOSPHORUS (BEAKER) (test zjfq=081) 3.9 mg/dL 2.3-4.7 [id number] 07:01:00 Test Item Value Reference Range Comments MAGNESIUM (BEAKER) (test lwyw=065) 1.7 mg/dL 1.6-2.6 CALCIUM, [id number] 06:45:00 Test Item Value Reference Range Comments CALCIUM IONIZED (BEAKER) (test khbl=632) 1.00 mmol/L 1.12-1.27 PH, BLOOD (BEAKER) (test xqar=6513) 7.43 POCT-GLUCOSE [id number] 21:06:00 Test Item Value Reference Range Comments POC-GLUCOSE METER (BEAKER) 167 mg/dL 70-110 TESTED AT [address] (test tdgs=1649) [place] [address] POCT-GLUCOSE [id number] 17:43:00 Test Item Value Reference Range Comments POC-GLUCOSE METER (BEAKER) 212 mg/dL 70-110 TESTED AT [address] (test rqph=8840) [place] [address]
[2018-04-08] MEDS ORDERED: NA CHLORIDE 0.9% 1,000 ML ONE (02:17)
[2018-04-08] MEDS ORDERED: NA CHLORIDE 0.9% 250 ML ONE (02:22)
[2018-04-08] MEDS ORDERED: PANTOPRAZOLE 40 MG INJ ONE (02:22)
[2018-04-08] MEDS ORDERED: ONDANSETRON 4 MG/2 ML VIAL ONE (02:27)
[2018-04-08] MEDS ORDERED: PROMETHAZINE 25 MG/ML VIAL ONE (02:31)
[2018-04-08 02:32] LABS: Absolute Lymphocytes (CBC) 0.6 K/uL (0.7-4.9); Absolute Neutrophil 10.8 K/uL (1.8-8.0); Basophils % 0.7 % (0-1.3); Eosinophils % 1.9 % (0-4.4); Hematocrit 30.8 % (39.6-49.0); Lymphocytes % 4.7 % (15.3-44.8); MCH 26.8 pg (27.0-35.0); MCV 83.4 fL (80-100); MPV 8.6 fL (7.6-11.3); Monocytes % 7.5 % (3.3-12.3)
[2018-04-08 02:43] LABS: Bicarbonate 29 mEq/L (21-31); Glucose Level 165 mg/dL (65-120); Lipase 37 U/L (22-51); Sodium Level 137 mEq/L (135-145)
[2018-04-08 02:49] LABS: ALT/SGPT 14 IU/L (10-60); AST/SGOT 14 IU/L (10-42); Albumin 3.3 g/dL (3.2-5.5); Alkaline Phosphatase 82 IU/L (42-121); Amylase Level 76 U/L (28-100); BUN Blood Urea Nitrogen 46 mg/dL (6-20); Bilirubin Direct < 0.1 mg/dL (0-0.2); Bilirubin Total 0.3 mg/dL (0.3-1.2); Protein, Total 7.5 g/dL (6.0-8.3)
--- NOTE | 2018-04-08 03:05 | EDPHYS ---
Physician Documentation [facility] Name: Federico Martinez Age: 57 yrs Sex: Male : 1960 Arrival Date: 04/08/2018 Time: 01:41 Bed 5 Private MD: ED Physician Kenan Britton HPI: 04/08 02:01 This 57 yrs old Male presents to ER via EMS with complaints of GI Bleeding. pkl 02:01 The patient presents to the emergency department vomiting blood, 2 times since symptom pkl onset, with rectal bleeding, Onset: The symptoms/episode began/occurred today. Historical: - Allergies: 02:00 No Known Allergies; fc - Home Meds: 02:00 albuterol sulfate 2.5 mg /3 mL (0.083 %) Nebulizer nebu 3 mL q6hrs prn [Active]; fc amiodarone 200 mg Oral tab 1 tab once daily [Active]; arformoterol inhalation inhalation 2 times per day [Active]; carvedilol 6.25 mg oral tab 1 tab 2 times per day [Active]; Atrovent Nebulizer q 4 hrs prn sob [Active]; Geodon 20 mg oral cap 1 cap 2 times per day [Active]; nifedipine 60 mg oral tr24 1 tab twice a day [Active]; ramipril 10 mg Oral cap 1 cap nightly [Active]; Xanax 0.5 mg Oral tab 1 tab q 6hrs prn for Anxiety [Active]; - PMHx: 02:00 Post Laminectomy Syndrome; COPD; pressure ulcer of left ankle stage II; Pressure ulcer fc of right ankle, stage II; Sacral Pressure Ulcer Stage III; GI Hemorrhage; Anemia; Diabetes - IDDM; Dementia; Bipolar disorder; Depression; Anxiety; Parkinsons; insomnia; Hypertension; Atherosclerotic heart disease; CHF; Asthma; GERD; osteomyelitis; ESRD; Dialysis; Schizophrenia; Paraplegia; - PSHx: 02:00 Right chest wall terra; fc - Immunization history:: Last tetanus immunization: unknown. - Social history:: Smoking status: Patient/guardian denies using tobacco. - Ebola Screening: : Patient negative for fever greater than or equal to 101.5 degrees Fahrenheit, and additional compatible Ebola Virus Disease symptoms Patient denies exposure to infectious person Patient denies travel to an Ebola-affected area in the 21 days before illness onset. ROS: 02:01 Eyes: Negative for injury, pain, redness, and discharge, ENT: Negative for injury, pkl pain, and discharge, Neck: Negative for injury, pain, and swelling, Cardiovascular: Negative for chest pain, palpitations, and edema, Respiratory: Negative for shortness of breath, cough, wheezing, and pleuritic chest pain. 02:01 Abdomen/GI: Negative for nausea, vomiting. 02:01 Back: Negative for acute changes. 02:01 : Negative for urinary symptoms. 02:01 MS/extremity: Negative for acute changes. 02:01 Skin: Negative for rash. 02:01 Neuro: Negative for altered mental status. Exam: 02:01 Head/Face: Normocephalic, atraumatic. Eyes: Pupils equal round and reactive to light, pkl extra-ocular motions intact. Lids and lashes normal. Conjunctiva and sclera are non-icteric and not injected. Cornea within normal limits. Periorbital areas with no swelling, redness, or edema. ENT: Nares patent. No nasal discharge, no septal abnormalities noted. Tympanic membranes are normal and external auditory canals are clear. Oropharynx with no redness, swelling, or masses, exudates, or evidence of obstruction, uvula midline. Mucous membranes moist. Neck: Trachea midline, no thyromegaly or masses palpated, and no cervical lymphadenopathy. Supple, full range of motion without nuchal rigidity, or vertebral point tenderness. No Meningismus. Chest/axilla: Normal chest wall appearance and motion. Nontender with no deformity. No lesions are appreciated. Cardiovascular: Regular rate and rhythm with a normal S1 and S2. No gallops, murmurs, or rubs. Normal PMI, no JVD. No pulse deficits. Respiratory: Lungs have equal breath sounds bilaterally, clear to auscultation and percussion. No rales, rhonchi or wheezes noted. No increased work of breathing, no retractions or nasal flaring. 02:01 Abdomen/GI: Bowel sounds: normal, Palpation: abdomen is soft and non-tender, Rectal exam: Stool: guaiac positive, the exam is chaperoned by the nurse. 02:01 Back: Exam negative for pkl 02:01 Musculoskeletal/extremity: Exam is negative for acute changes. 02:01 Skin: Exam negative for rash. 02:01 Neuro: Orientation: appropriate for stated age, Mentation: is normal, Cranial nerves: grossly normal, Motor: is normal. Vital Signs: 01:41 BP 126 / 57; Pulse 74; Resp 18; Temp 98.7(O); Pulse Ox 96% on R/A; Weight 72.57 kg (R); fc Height 5 ft. 7 in. (170.18 cm) (R); Pain 10/10; 03:03 BP 142 / 72; Pulse 72; Resp 16; Pulse Ox 98% on R/A; ao 04:00 BP 150 / 74; Pulse 72; Resp 16; Pulse Ox 99% on R/A; ao 07:10 BP 156 / 78; Pulse 70; Resp 16 S; Temp 98.9(O); Pulse Ox 95% on R/A; Pain 0/10; aa5 01:41 Body Mass Index 25.06 (72.57 kg, 170.18 cm) fc MDM: 01:54 Patient medically screened. pkl 03:02 Data reviewed: vital signs, nurses notes, lab test result(s), EKG, radiologic studies, pkl plain films. 04/08 02:00 Order name: Amylase, Serum; Complete Time: 02:58 pkl 04/08 02:00 Order name: Basic Metabolic Panel; Complete Time: 02:58 pkl 04/08 02:00 Order name: CBC with Diff; Complete Time: 05:19 pkl 04/08 02:00 Order name: Creatinine for Radiology; Complete Time: 02:58 pkl 04/08 02:00 Order name: Hepatic Function; Complete Time: 02:58 pkl 04/08 02:00 Order name: Lipase; Complete Time: 02:58 pkl 04/08 02:00 Order name: Urine Microscopic Only pkl 04/08 02:00 Order name: Type And Screen; Complete Time: 03:09 pkl 04/08 02:12 Order name: XRAY CXR (1 view) pkl 04/08 03:17 Order name: CBC Smear Scan; Complete Time: 05:19 EDMS 04/08 08:02 Order name: Hemoglobin EDMS 04/08 08:02 Order name: Hematocrit EDMS 04/08 02:00 Order name: IV Saline Lock; Complete Time: 02:20 pkl 04/08 02:00 Order name: Labs collected and sent; Complete Time: 02:20 pkl Administered Medications: 02:11 Not Given (order cancel): NS 0.9% 500 ml IV at bolus once pkl 02:12 Not Given (changed to 75 ml/hr): NS 0.9% 1000 ml IV at 100 ml/hr once fc 02:27 Drug: Zofran 4 mg Route: IVP; Site: right antecubital; ao 03:11 Follow up: Response: Nausea is increased ak1 02:38 Drug: NS 0.9% 1000 ml Route: IV; Rate: 75 ml/hr; Site: right antecubital; ak1 05:04 Follow up: IV Status: Infusion continued upon admission ao 07:16 Follow up: IV Status: Infusion continued aa5 02:39 Drug: ProTONIX 8 mg/hr Route: IV; Rate: 25 ml/hr; Site: right antecubital; ak1 05:04 Follow up: IV Status: Infusion continued upon admission ao 07:15 Follow up: IV Status: Infusion continued aa5 02:40 Drug: Phenergan 12.5 mg Route: IVP; Site: right antecubital; ak1 02:41 Follow up: Response: No adverse reaction; Nausea is decreased ak1 Point of Care Testing: Blood Glucose: 07:35 Blood Glucose: 86 mg/dL; aa5 Guaiac: 02:00 Stool Guaiac: Positive; Stool Hemoccult Control: Pass; ao Ranges: Critical Glucose Levels:Adult <50 mg/dl or >400 mg/dl <40 mg/dl or >180 mg/dl Disposition: 04/08/18 03:04 Hospitalization ordered by Meg Nixon for Inpatient Admission. Preliminary diagnosis is G.I. Bleeding. Chronic renal disease. - Bed requested for Telemetry/MedSurg (Inpatient). - Status is Inpatient Admission. aa5 - Condition is Stable. - Problem is new. - Symptoms are unchanged. UTI on Admission? No Signatures: Dispatcher [employer] Camilla Jennings RN RN kl Lam, Pin, MD MD pkl Chretien, Felicia, RN RN fc Calderon, Audri, RN RN aa5 Ioana Johnson RN RN ak1 Luis Shafer RN RN ao Botello, Elizabeth eb Corrections: (The following items were deleted from the chart) 04:19 03:04 Hospitalization Ordered by Meg Nixon MD for Inpatient Admission. Preliminary fc diagnosis is G.I. Bleeding. Chronic renal disease. Bed requested for Telemetry/MedSurg (Inpatient). Status is Inpatient Admission. Condition is Stable. Problem is new. Symptoms are unchanged. UTI on Admission? No. pkl 05:54 04:19 04/08/2018 03:04 Hospitalization Ordered by Meg Nixon MD for Inpatient eb Admission. Preliminary diagnosis is G.I. Bleeding. Chronic renal disease. Bed requested for [facility] ER HOLD. Status is Inpatient Admission. Condition is Stable. Problem is new. Symptoms are unchanged. UTI on Admission? No. fc 06:31 05:54 04/08/2018 03:04 Hospitalization Ordered by Meg Nixon MD for Inpatient kl Admission. Preliminary diagnosis is G.I. Bleeding. Chronic renal disease. Bed requested for [facility] ER HOLD. Status is Inpatient Admission. Condition is Stable. Problem is new. Symptoms are unchanged. UTI on Admission? No. eb 07:16 02:00 Urine Dipstick-Ancillary ordered. pkl aa5 08:03 06:31 04/08/2018 03:04 Hospitalization Ordered by Meg Nixon MD for Inpatient aa5 Admission. Preliminary diagnosis is G.I. Bleeding. Chronic renal disease. Bed requested for Telemetry/MedSurg (Inpatient). Status is Inpatient Admission. Condition is Stable. Problem is new. Symptoms are unchanged. UTI on Admission? No. kl
--- NOTE | 2018-04-08 03:05 | ER ---
Nurse's Notes [facility] Name: Federico Martinez Age: 57 yrs Sex: Male : 1960 Arrival Date: 04/08/2018 Time: 01:41 Bed 5 Private MD: Diagnosis: G.I. Bleeding. Chronic renal disease Presentation: 04/08 01:41 Presenting complaint: EMS states: that at approx 0100 pt vomited large amt of coffee fc ground emesis per facility staff. Transition of care: patient was not received from another setting of care. Onset of symptoms was April 08, 2018 at 01:00. Risk Assessment: Do you want to hurt yourself or someone else? Patient reports no desire to harm self or others. Initial Sepsis Screen: Does the patient meet any 2 criteria? No. Patient's initial sepsis screen is negative. Does the patient have a suspected source of infection? No. Patient's initial sepsis screen is negative. Care prior to arrival: Glucose check: 219. 01:41 Method Of Arrival: EMS: [facility] 01:41 Acuity: CHARLES 3 fc Historical: - Allergies: 02:00 No Known Allergies; fc - Home Meds: 02:00 albuterol sulfate 2.5 mg /3 mL (0.083 %) Nebulizer nebu 3 mL q6hrs prn [Active]; fc amiodarone 200 mg Oral tab 1 tab once daily [Active]; arformoterol inhalation inhalation 2 times per day [Active]; carvedilol 6.25 mg oral tab 1 tab 2 times per day [Active]; Atrovent Nebulizer q 4 hrs prn sob [Active]; Geodon 20 mg oral cap 1 cap 2 times per day [Active]; nifedipine 60 mg oral tr24 1 tab twice a day [Active]; ramipril 10 mg Oral cap 1 cap nightly [Active]; Xanax 0.5 mg Oral tab 1 tab q 6hrs prn for Anxiety [Active]; - PMHx: 02:00 Post Laminectomy Syndrome; COPD; pressure ulcer of left ankle stage II; Pressure ulcer fc of right ankle, stage II; Sacral Pressure Ulcer Stage III; GI Hemorrhage; Anemia; Diabetes - IDDM; Dementia; Bipolar disorder; Depression; Anxiety; Parkinsons; insomnia; Hypertension; Atherosclerotic heart disease; CHF; Asthma; GERD; osteomyelitis; ESRD; Dialysis; Schizophrenia; Paraplegia; - PSHx: 02:00 Right chest wall terra; fc - Immunization history:: Last tetanus immunization: unknown. - Social history:: Smoking status: Patient/guardian denies using tobacco. - Ebola Screening: : Patient negative for fever greater than or equal to 101.5 degrees Fahrenheit, and additional compatible Ebola Virus Disease symptoms Patient denies exposure to infectious person Patient denies travel to an Ebola-affected area in the 21 days before illness onset. Screenin:43 Abuse screen: Denies threats or abuse. Nutritional screening: No deficits noted. fc Tuberculosis screening: No symptoms or risk factors identified. 01:50 Fall Risk Fall in past 12 months (25 points). ao Assessment: 01:47 General: Appears in no apparent distress. comfortable, Behavior is calm, listless. ao Pain: Unable to use pain scale. FLACC scale score is 0 out of 10. Neuro: Level of Consciousness is awake, Oriented to person, Moves all extremities. Weakness Speech is normal. Cardiovascular: Capillary refill < 3 seconds Patient's skin is warm and dry. Respiratory: Airway is patent Respiratory effort is even, unlabored, Respiratory pattern is regular, symmetrical. GI: Reports bloody stool, nausea. : No signs and/or symptoms were reported regarding the genitourinary system. EENT: No signs and/or symptoms were reported regarding the EENT system. Derm: Skin is intact, with poor turgor Skin is Skin temperature is warm. Musculoskeletal: Range of motion: limited in all extremities. 03:04 Reassessment: Patient appears in no apparent distress at this time. Patient and/or ao family updated on plan of care and expected duration. Pain level reassessed. Patient is alert, oriented x 3, equal unlabored respirations, skin warm/dry/pink. Waiting on lab work. 05:01 Reassessment: Patient appears in no apparent distress at this time. Patient and/or ao family updated on plan of care and expected duration. Pain level reassessed. Patient is alert, oriented x 3, equal unlabored respirations, skin warm/dry/pink. Patient admitted to the hospital as ER hold. 07:10 General: Appears comfortable, Behavior is calm, cooperative. Pain: Denies pain. Neuro: aa5 Level of Consciousness is awake, alert, obeys commands, Oriented to person, place, time, situation, Appropriate for age. Cardiovascular: Heart tones S1 S2 present Dialysis catheter noted to right upper chest, Fentanyl patch noted to left upper chest, pt states "I have the patch because I always hurt everywhere but right now I'm ok" . Rhythm is regular. Respiratory: Airway is patent Respiratory effort is even, unlabored, Respiratory pattern is regular, symmetrical. GI: Abdomen is round non-distended, Bowel sounds present X 4 quads. Abd is soft and non tender X 4 quads. Reports nausea, vomiting blood Patient currently denies bloody stool. : Reports only makes small amount of urine due to dialysis. EENT: No signs and/or symptoms were reported regarding the EENT system. Derm: Skin is pink, warm \\T\\ dry. Decubitus located on sacrum is stage I is draining none noted. Musculoskeletal: Range of motion: limited in left knee and right knee. 07:33 Reassessment: Report given to LIZABETH Brown. aa5 07:50 Reassessment: Pt cleaned of stool incontinence, no blood noted to stool. Stool soft and aa5 brown. Clean brief applied. . Vital Signs: 01:41 BP 126 / 57; Pulse 74; Resp 18; Temp 98.7(O); Pulse Ox 96% on R/A; Weight 72.57 kg (R); fc Height 5 ft. 7 in. (170.18 cm) (R); Pain 10/10; 03:03 BP 142 / 72; Pulse 72; Resp 16; Pulse Ox 98% on R/A; ao 04:00 BP 150 / 74; Pulse 72; Resp 16; Pulse Ox 99% on R/A; ao 07:10 BP 156 / 78; Pulse 70; Resp 16 S; Temp 98.9(O); Pulse Ox 95% on R/A; Pain 0/10; aa5 01:41 Body Mass Index 25.06 (72.57 kg, 170.18 cm) ED Course: 01:41 Patient arrived in ED. 01:41 Arm band placed on Patient placed in an exam room, on a stretcher. 01:42 Triage completed. 01:43 Patient has correct armband on for positive identification. Bed in low position. Call light in reach. Side rails up X2. Pulse ox on. NIBP on. 01:46 Luis Shafer RN is Primary Nurse. ao 01:54 Kenan Britton MD is Attending Physician. pkl 02:19 Initial lab(s) drawn, by me, sent to lab. T\\T\\S collected, blood band applied to patient. ks6 Inserted saline lock: 20 gauge in right antecubital area, using aseptic technique. Blood collected. 02:36 X-ray completed. Portable x-ray completed in exam room. Patient tolerated procedure kw well. 02:39 XRAY CXR (1 view) In Process Unspecified. EDMS 03:03 Meg Nixon MD is Hospitalizing Provider. pkl 05:00 No provider procedures requiring assistance completed. Patient admitted, IV remains in ao place. 07:05 Report received from Luis Shafer RN. aa5 07:06 Primary Nurse role handed off by Luis Shafer RN bd 07:10 Patient has correct armband on for positive identification. Placed in gown. Bed in low aa5 position. Call light in reach. Side rails up X2. 07:14 Jazmin Wu RN is Primary Nurse. aa5 07:43 Missed attempt(s): 22 gauge in right hand. Bleeding controlled, band aid applied, aa5 catheter tip intact. 07:45 Inserted saline lock: 22 gauge in right forearm, using aseptic technique. ,using aa5 aseptic technique. Repeat H\\T\\H collected and sent to lab. Administered Medications: 02:11 Not Given (order cancel): NS 0.9% 500 ml IV at bolus once pkl 02:12 Not Given (changed to 75 ml/hr): NS 0.9% 1000 ml IV at 100 ml/hr once fc 02:27 Drug: Zofran 4 mg Route: IVP; Site: right antecubital; ao 03:11 Follow up: Response: Nausea is increased ak1 02:38 Drug: NS 0.9% 1000 ml Route: IV; Rate: 75 ml/hr; Site: right antecubital; ak1 05:04 Follow up: IV Status: Infusion continued upon admission ao 07:16 Follow up: IV Status: Infusion continued aa5 02:39 Drug: ProTONIX 8 mg/hr Route: IV; Rate: 25 ml/hr; Site: right antecubital; ak1 05:04 Follow up: IV Status: Infusion continued upon admission ao 07:15 Follow up: IV Status: Infusion continued aa5 02:40 Drug: Phenergan 12.5 mg Route: IVP; Site: right antecubital; ak1 02:41 Follow up: Response: No adverse reaction; Nausea is decreased ak1 Point of Care Testing: Blood Glucose: 07:35 Blood Glucose: 86 mg/dL; aa5 Guaiac: 02:00 Stool Guaiac: Positive; Stool Hemoccult Control: Pass; ao Ranges: Outcome: 03:04 Decision to Hospitalize by Provider. pkl 05:01 Admitted to ER Hold. Please see [facility] for further documentation. ao 05:01 Condition: stable 05:01 Instructed on the need for admit. 07:55 Admitted to Med/surg accompanied by tech, via stretcher, room 403, with chart, Report aa5 called to LIZABETH Brown 07:55 Condition: stable 07:55 Instructed on the need for admit, Demonstrated understanding of instructions. 08:03 Patient left the ED. aa5 Signatures: Dispatcher [employer] EDMS Inocencia Rg Pin, MD MD pkJennifer Ross, RN RN Jazmin Juarez RN RN aa5 Teressa Caraballo Amber, RN RN akLuis Chambers RN RN Sridhar Son6
[2018-04-08 03:16] LABS: Anisocytosis 1+; Blood Morphology Comment NOTED (NOT SEEN); Platelet Estimate ADEQ; Urine White Blood Cell Casts OK
--- NOTE | 2018-04-08 03:48 | P.HP ---
Certification for Inpatient Patient admitted to: Inpatient With expected LOS: >2 Midnights Practitioner: I am a practitioner with admitting privileges, knowledge of patient current condition, hospital course, and medical plan of care. Services: Services provided to patient in accordance with Admission requirements found in Title 42 Section 412.3 of the Code of Federal Regulations Patient History Date of Service: 04/08/18 Reason for admission: GIB History of Present Illness: Mr Martinez is a 57 years old male with a complicated medical history including ESRD on HD, IDDM, HTN, COPD, Dementia, CAD, who is a [facility] a [facility]. He was brought to ED because around 1:00 AM of today, start having coffee ground emesis. He is sleepy and is not able to provide a history, but he states that has abdominal pain. No chest pain or palpitations. No SOB. There are no report of bloody or black stools either. Lab work is remarkable for Hgb 9.9 mg/dl, he is afebrile, BP 126/57, and HR 74 bpm. Allergies No Known Drug Allergies Allergy (Verified 02/09/18 01:19) Unknown No Known Allergies Allergy (Uncoded 02/09/18 01:19) Unknown Home Medications: Albuterol Inhaler [Ventolin Inhaler*] 1 puff IH QID 02/09/18 Furosemide 40 mg PO BID 02/09/18 Gabapentin [Neurontin*] 100 mg PO BID 02/09/18 Hydrocodone Bit/Acetaminophen [Hydrocodon-Acetaminoph 7.5-325] 1 each PO Q6HP PRN 02/09/18 Ipratropium/Albuterol Sulfate [Iprat-Albut 0.5-3(2.5) mg/3 ml] 3 ml IH Q6HP PRN 02/09/18 fentaNYL [Fentanyl] 25 mcg TD Q72H 02/09/18 Atorvastatin Calcium [Lipitor*] 1 tab PO BEDTIME 02/10/18 Calcitriol [Rocaltrol] 1 cap PO DAILY 02/10/18 Folic Acid 1 mg PO DAILY 02/10/18 Ondansetron HCl 4 mg PO Q6HR PRN 02/10/18 ALPRAZolam [Xanax*] 0.5 mg PO Q6H PRN 03/20/18 Aspirin Chewable [Aspirin Chewable*] 81 mg PO DAILY 03/20/18 Glucagon HCl 1 mg IM PRN PRN 03/20/18 Pantoprazole [Protonix Tab*] 40 mg PO DAILY 03/20/18 Albuterol Neb [Proventil 0.083% Neb Soln] 2.5 mg NEB [id number] PRN amp 03/29/18 Amiodarone HCl [Cordarone*] 200 mg PO DAILY #30 tab 03/29/18 Arformoterol Tartrate [Brovana] 15 mcg NEB BIDRESP #30 vial.neb 03/29/18 Carvedilol [Coreg*] 6.25 mg PO BID #60 tab 03/29/18 Clindamycin HCl [Cleocin HCl *] 300 mg PO Q6HR #30 cap 03/29/18 Ipratropium Neb [Atrovent*] 0.5 mg NEB [id number] PRN #30 amp 03/29/18 Nifedipine Xl [Procardia XL*] 60 mg PO BID #60 tab 03/29/18 Ramipril [Altace*] 10 mg PO BEDTIME #30 cap 03/29/18 - Past Medical/Surgical History Diabetic: Yes -: DM-Type 2 -: HTN -: Hyperlipidemia -: Dementia, Parkinsons disease -: GERD -: ESRD, Nephrology-Dr. Leavitt, Dialysis-,Sat -: Restless leg syndrome -: COPD -: Depression, insomnia -: Anemia of chronic disease -: Normal-pressure hydrocephalus -: CAD, PUD -: Cardiac stents. -: Numerous back surgeries -: Congestive heart failure Psychosocial/ Personal History: He currently lives at the retirement - Family History Mother -: Heart disease, Hypertension Father -: Heart disease - Social History Smoking Status: Unknown if ever smoked Alcohol use: No CD- Drugs: No Caffeine use: Yes Place of Residence: [facility] Review of Systems 10-point ROS is otherwise unremarkable Physical Examination - Physical Exam General: Alert, In no apparent distress HEENT: Atraumatic, PERRLA, Mucous membr. moist/pink, EOMI, Sclerae nonicteric Neck: Supple, 2+ carotid pulse no bruit, No LAD, Without JVD or thyroid abnormality Respiratory: Normal air movement, Other (coarse bilateral) Cardiovascular: Regular rate/rhythm, Normal S1 S2 Gastrointestinal: Normal bowel sounds, No tenderness Musculoskeletal: No tenderness Integumentary: No rashes Neurological: Normal strength at 5/5 x4 extr, Normal tone, Normal affect Lymphatics: No axilla or inguinal lymphadenopathy - Studies Laboratory Data (last 24 hrs) 04/08/18 02:10: Creatinine 4.91 H 04/08/18 02:10: WBC 12.7 H D, Hgb 9.9 L, Hct 30.8 L, Plt Count 308 D 04/08/18 02:10: Sodium 137, Potassium 5.0, BUN 46 H, Creatinine 4.83 H, Glucose 165 H, Total Bilirubin 0.3, AST 14, ALT 14, Alkaline Phosphatase 82, Amylase 76 , Lipase 37 Assessment and Plan - Problems (Diagnosis) (1) Encephalopathy Onset Date: 03/21/18 Current Visit: No Status: Acute (2) GI bleed Onset Date: 05/11/17 Current Visit: No Status: Acute Qualifiers: GI bleed type/associated pathology: unspecified gastrointestinal hemorrhage type Qualified Code(s): K92.2 - Gastrointestinal hemorrhage, unspecified (3) CAD (coronary artery disease) Onset Date: 12/24/17 Current Visit: No Status: Chronic Qualifiers: Coronary Disease-Associated Artery/Lesion type: [place] artery [place] vs. transplanted heart: [place] heart Associated angina: without angina Qualified Code(s): I25.10 - Atherosclerotic heart disease of [place] coronary artery without angina pectoris (4) COPD (chronic obstructive pulmonary disease) Onset Date: 12/24/17 Current Visit: No Status: Chronic Qualifiers: COPD type: unspecified COPD Qualified Code(s): J44.9 - Chronic obstructive pulmonary disease, unspecified (5) ESRD (end stage renal disease) Onset Date: 02/14/18 Current Visit: No Status: Chronic - Plan The patient will be admitted to the hospital due to coffee-ground emesis. He has history of GIB in the past. He is hemodynamically stable at the moment. Will order IV PPI's, keep him NPO, consult GI specialist. HH are stable, will do serial lab works every 6hr. Consult Dr Leavitt to continue HS while is in the hospital. - Advance Directives Does patient have a Living Will: No Does patient have a Durable POA for Healthcare: Yes
[2018-04-08] MEDS ORDERED: ONDANSETRON 4 MG/2 ML VIAL IV PRN (04:20)
[2018-04-08] MEDS ORDERED: PANTOPRAZOLE INJ 80 MG in NA CHLORIDE 0.9% 250 ML IV SCH (04:20)
[2018-04-08] MEDS: INSULIN -REGULAR HUMAN 50 UNIT/0.5 ML ML SQ SCH ×3 (06:00→21:00)
[2018-04-08 06:04] VITALS: BMI 25.0
[2018-04-08] MEDS ORDERED: ALBUTEROL 2.5 MG/3 ML NEB SOL NEB PRN (06:51)
[2018-04-08] MEDS ORDERED: IPRATROPIUM BROM 0.5MG/2.5ML NEB PRN (06:51)
[2018-04-08] MEDS ORDERED: ZIPRASIDONE 20 MG CAP PO PRN (06:57)
[2018-04-08] MEDS ORDERED: ALPRAZOLAM 0.5 MG TABLET PO PRN (06:57)
[2018-04-08 07:58] LABS: Hematocrit 27.5 % (39.6-49.0)
[2018-04-08] MEDS: AMIODARONE HCL 200 MG TAB PO SCH (08:30)
[2018-04-08] MEDS: ARFORMOTEROL TARTRATE 15 MCG/2 ML VIAL.NEB NEB SCH ×2 (08:36→19:41)
--- NOTE | 2018-04-08 08:56 | RAD REPORT ---
EXAM DESCRIPTION: RAD - Chest Single View - 04/08/2018 2:39 am CLINICAL HISTORY: GI bleed, vomiting of coffee-ground emesis COMPARISON: March 28, 2018 TECHNIQUE: AP portable chest image was obtained 0227 hours . FINDINGS: Interstitial markings are prominent but similar to comparison. No focal mass, consolidatio n or significant failure finding. Semi-upright portable imaging and shallow inspiration accentuate he art, vasculature and lung markings. Pulmonary vasculature within limits of normal. Mild cardiomegaly is present as a baseline. Right-sided double-lumen dialysis catheter is in place. No measurable pleur al effusion and no pneumothorax. No gross bony abnormality seen. No acute aortic findings suspected. IMPRESSION: No acute cardiopulmonary process. Patient has a baseline mild cardiomegaly and mild prominence of the interstitial markings not substan tially different from comparison. Baseline pattern and shallow inspiration could mask the earliest stages of failure or volume overload .
[2018-04-08] MEDS ORDERED: CARVEDILOL 6.25 MG TAB PO SCH (09:00)
--- NOTE | 2018-04-08 13:03 | P.PN ---
Subjective Date of Service: 04/08/18 Primary Care Provider: halfway Chief Complaint: GIB Subjective: Improving Physical Examination - Vital Signs Temperature: 97 F Blood Pressure: 163/74 Pulse: 71 Respirations: 18 Pulse Ox (%): 95 - Physical Exam General: Alert, In no apparent distress, Cooperative HEENT: Atraumatic Neck: Supple Respiratory: Clear to auscultation bilaterally, Normal air movement Cardiovascular: Normal pulses, Regular rate/rhythm Gastrointestinal: Normal bowel sounds, Soft and benign, Non-distended, No tenderness, No masses, No rebound, No guarding Musculoskeletal: No erythema, No tenderness, No warmth Integumentary: No warmth, No cyanosis Neurological: Normal speech, Normal strength at 5/5 x4 extr, Normal tone, Normal affect Lymphatics: No axilla or inguinal lymphadenopathy - Studies Laboratory Data (last 24 hrs) 04/08/18 02:10: Creatinine 4.91 H 04/08/18 02:10: WBC 12.7 H D, Hgb 9.9 L, Hct 30.8 L, Plt Count 308 D 04/08/18 02:10: Sodium 137, Potassium 5.0, BUN 46 H, Creatinine 4.83 H, Glucose 165 H, Total Bilirubin 0.3, AST 14, ALT 14, Alkaline Phosphatase 82, Amylase 76 , Lipase 37 Medications List Reviewed: Yes Assessment & Plan - Problems (Diagnosis) (1) COPD (chronic obstructive pulmonary disease) Onset Date: 04/08/18 Current Visit: Yes Status: Chronic Plan: Will continue with COPD medication. Qualifiers: COPD type: unspecified COPD Qualified Code(s): J44.9 - Chronic obstructive pulmonary disease, unspecified (2) Altered mental status Onset Date: 01/10/17 Current Visit: No Status: Acute Plan: This appears resolved. Patient with history of bipolar disorder. Will continue with his medication. Patient presented with coffee ground emesis. Patient with history of gastric varices. Patient reports no vomiting at this time. Will keep the patient NPO. GI consulted. Patient may require EGD intervention. Will monitor hemoglobin closely. Patient may require blood transfusion. Qualifiers: Altered mental status type: unspecified Qualified Code(s): R41.82 - Altered mental status, unspecified (3) GI bleed Onset Date: 05/11/17 Current Visit: No Status: Suspected Plan: Will monitor hemoglobin closely. Patient with history of GI bleed in the past. Patient without any vomiting at this time. Will monitor closely. Await GI evaluation and recommendation. Qualifiers: GI bleed type/associated pathology: unspecified gastrointestinal hemorrhage type Qualified Code(s): K92.2 - Gastrointestinal hemorrhage, unspecified (4) Bipolar disorder Onset Date: 05/04/17 Current Visit: No Status: Chronic Plan: Will continue with his medication. Qualifiers: Active/Remission status: remission status unspecified Qualified Code(s): F31.9 - Bipolar disorder, unspecified (5) Diabetes mellitus Onset Date: 05/04/17 Current Visit: No Status: Chronic Plan: Will provide sliding scale. 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 Patient will need dialysis (7) GERD (gastroesophageal reflux disease) Onset Date: 12/24/17 Current Visit: No Status: Chronic Plan: Will continue with PPI. Qualifiers: Esophagitis presence: with esophagitis Qualified Code(s): K21.0 - Gastro- esophageal reflux disease with esophagitis (8) Gastric varices Onset Date: 05/28/17 Current Visit: No Status: Chronic Plan: Overall stable. GI consulted. Continue as above. (9) Hypertension Onset Date: 12/24/17 Current Visit: No Status: Chronic Plan: Will provide medication. Qualifiers: Hypertension type: essential hypertension Qualified Code(s): I10 - Essential (primary) hypertension (10) Anemia Onset Date: 12/24/17 Current Visit: No Status: Chronic Plan: Will monitor hemoglobin closely. Patient may require transfusion. Qualifiers: Anemia type: due to chronic kidney disease Chronic kidney disease stage: on chronic dialysis Qualified Code(s): N18.6 - End stage renal disease; D63.1 - Anemia in chronic kidney disease; Z99.2 - Dependence on renal dialysis Discharge Plan: [facility] Plan to discharge in: 48 Hours Time Spent Managing Pts Care (In Minutes): 55
[2018-04-08] MEDS: PANTOPRAZOLE INJ 80 MG in NA CHLORIDE 0.9% 250 ML IV SCH ×2 (15:09→22:30)
[2018-04-08] MEDS ORDERED: MANNITOL 25% 12.5 GM/50 ML VIAL IV PRN (16:49)
[2018-04-08] MEDS ORDERED: NA CHLORIDE 0.9% 1,000 ML IV PRN (16:49)
--- NOTE | 2018-04-08 16:53 | P.CNS ---
Date of Consult: 04/08/18 Reason for Consult: ESRD Requesting Physician: Ryan Rojas Primary Care Provider: shelter Chief Complaint: GIB History of Present Illness: Mr Martinez is a 57 years old male with a complicated medical history including ESRD on HD, IDDM, HTN, COPD, Dementia, CAD, who is a resident of a retirement facility. He was brought to ED because around 1:00 AM of today, start having coffee ground emesis. He is sleepy and is not able to provide a history, but he states that has abdominal pain. No chest pain or palpitations. No SOB. There are no report of bloody or black stools either. Lab work is remarkable for Hgb 9.9 mg/dl, he is afebrile, BP 126/57, and HR 74 bpm. 02:01 This 57 yrs old Male presents to ER via EMS with complaints of GI Bleeding. pkl 02:01 The patient presents to the emergency department vomiting blood, 2 times since symptom pkl onset, with rectal bleeding, Onset: The symptoms/episode began/occurred today. Allergies No Known Drug Allergies Allergy (Verified 04/08/18 04:40) Unknown No Allergy (Uncoded 04/08/18 08:07) Unknown Home medications list reviewed: Yes Home Medications: ALPRAZolam [Xanax*] 0.5 mg PO Q6H PRN 03/20/18 Albuterol Neb [Proventil 0.083% Neb Soln] 2.5 mg NEB [id number] PRN amp 03/29/18 Amiodarone HCl [Cordarone*] 200 mg PO DAILY #30 tab 03/29/18 Arformoterol Tartrate [Brovana] 15 mcg NEB BIDRESP #30 vial.neb 03/29/18 Carvedilol [Coreg*] 6.25 mg PO BID #60 tab 03/29/18 Ipratropium Neb [Atrovent*] 0.5 mg NEB [id number] PRN #30 amp 03/29/18 Nifedipine Xl [Procardia XL*] 60 mg PO BID #60 tab 03/29/18 Ramipril [Altace*] 10 mg PO BEDTIME #30 cap 03/29/18 Ziprasidone HCl [Geodon] 20 mg PO BID PRN 04/08/18 Ferrous Sulfate [Ferrous Sulfate*] 325 mg PO BID #60 tab 04/09/18 Pantoprazole [Protonix Tab*] 40 mg PO BIDAC #60 tab 04/09/18 - Past Medical/Surgical History Diabetic: Yes -: DM-Type 2 -: HTN -: Hyperlipidemia -: Dementia, Parkinsons disease -: GERD -: ESRD, Nephrology-Dr. Leavitt, Dialysis-,Th,Sat -: Restless leg syndrome -: COPD -: Depression, insomnia -: Anemia of chronic disease -: Normal-pressure hydrocephalus -: CAD, PUD -: Cardiac stents. -: Numerous back surgeries -: Congestive heart failure Psychosocial/ Personal History: He currently lives at the shelter - Family History Mother Medical History: Heart disease, Hypertension Father Medical History: Heart disease - Social History Smoking Status: Unknown if ever smoked Alcohol use: No CD- Drugs: No Caffeine use: Yes Place of Residence: Assisted Review of Systems 10-point ROS is otherwise unremarkable General: Weakness, Malaise Physical Examination Temp Pulse Resp BP Pulse Ox 97.5 F 65 18 186/64 H 98 04/08/18 16:00 04/08/18 16:00 04/08/18 16:00 04/08/18 16:00 04/08/18 16:00 General: Oriented x3, Cooperative HEENT: Normocephalic, Mucous membr. moist/pink Neck: Supple Respiratory: Clear to auscultation bilaterally Cardiovascular: Regular rate/rhythm, No rubs, Edema Gastrointestinal: Soft and benign, Non-distended Musculoskeletal: No clubbing, No contractures, No warmth Integumentary: No rashes Neurological: Normal speech Laboratory Data (last 24 hrs) 04/08/18 02:10: Creatinine 4.91 H 04/08/18 02:10: WBC 12.7 H D, Hgb 9.9 L, Hct 30.8 L, Plt Count 308 D 04/08/18 02:10: Sodium 137, Potassium 5.0, BUN 46 H, Creatinine 4.83 H, Glucose 165 H, Total Bilirubin 0.3, AST 14, ALT 14, Alkaline Phosphatase 82, Amylase 76 , Lipase 37 Imagings Data: EXAM DESCRIPTION: RAD - Chest Single View - 04/08/2018 2:39 am CLINICAL HISTORY: GI bleed, vomiting of coffee-ground emesis COMPARISON: March 28, 2018 TECHNIQUE: AP portable chest image was obtained 0227 hours . FINDINGS: Interstitial markings are prominent but similar to comparison. No focal mass, consolidation or significant failure finding. Semi-upright portable imaging and shallow inspiration accentuate heart, vasculature and lung markings. Pulmonary vasculature within limits of normal. Mild cardiomegaly is present as a baseline. Right-sided double-lumen dialysis catheter is in place. No measurable pleural effusion and no pneumothorax. No gross bony abnormality seen. No acute aortic findings suspected. IMPRESSION: No acute cardiopulmonary process. Patient has a baseline mild cardiomegaly and mild prominence of the interstitial markings not substantially different from comparison. Baseline pattern and shallow inspiration could mask the earliest stages of failure or volume overload. Conclusions/Impression: A/ ESRD on HD. Hyperkalemia. HTN with CKD. DM II with CKD. Diastolic CHF, chronic. JACOB/ Secondary HyperPTH. Anemia in CKD. GI Bleed. P/ Continue current POC and Medications. Arrange for acute HD. No heparin. PRBC as needed. Kayexalate X1. Follow up with GI. Restart home medications as indicated. No NSAIDs. AM labs. Daily weight. Thank you kindly for the consultation.
[2018-04-08] MEDS ORDERED: ALBUMIN HUMAN 25% 50 ML IV SCH (17:00)
[2018-04-08] MEDS ORDERED: EPOETIN ALFA 10,000 UNIT/ML VIAL IV SCH (17:00)
[2018-04-08] MEDS ORDERED: D50W 25 GM/50 ML SYRINGE IV PRN (17:18)
[2018-04-08] MEDS ORDERED: GLUCAGON 1 MG/VIAL IM PRN (17:18)
[2018-04-08] MEDS: CARVEDILOL 6.25 MG TAB PO SCH (17:22)
[2018-04-09] MEDS: PANTOPRAZOLE INJ 80 MG in NA CHLORIDE 0.9% 250 ML IV SCH ×2 (02:21→08:55)
[2018-04-09] MEDS ORDERED: HYDRALAZINE HCL 20 MG/ML VIAL IV PRN (04:03)
[2018-04-09] MEDS ORDERED: HYDRALAZINE HCL 20 MG/ML VIAL ONE (04:38)
[2018-04-09 04:55] LABS: Absolute Lymphocytes (CBC) 0.9 K/uL (0.7-4.9); Absolute Neutrophil 7.6 K/uL (1.8-8.0); Basophils % 1.5 % (0-1.3); Eosinophils % 4.2 % (0-4.4); Hematocrit 25.8 % (39.6-49.0); Lymphocytes % 8.9 % (15.3-44.8); MCH 27.7 pg (27.0-35.0); MCV 85.2 fL (80-100); MPV 8.5 fL (7.6-11.3); RBC Red Blood Cell Count 3.03 M/uL (4.33-5.43)
[2018-04-09 05:19] LABS: Albumin 2.8 g/dL (3.2-5.5); Bilirubin Total 0.3 mg/dL (0.3-1.2); Potassium 5.5 mEq/L (3.6-5.0); Protein, Total 6.4 g/dL (6.0-8.3)
[2018-04-09] MEDS: INSULIN -REGULAR HUMAN 50 UNIT/0.5 ML ML SQ SCH ×3 (07:30→16:18)
--- NOTE | 2018-04-09 07:54 | P.PN ---
Subjective Date of Service: 04/09/18 Primary Care Provider: senior living Chief Complaint: GIB Subjective: Doing well (Patient without any coffee-ground emesis. Patient desires to eat. No abdominal pain) Physical Examination - Vital Signs Temperature: 96.8 F Blood Pressure: 187/84 Pulse: 63 Respirations: 15 Pulse Ox (%): 98 - Physical Exam General: Alert, In no apparent distress, Oriented x3, Cooperative HEENT: Atraumatic, Mucous membr. moist/pink Neck: Supple, No Thyromegaly Respiratory: Clear to auscultation bilaterally, Normal air movement Cardiovascular: Normal pulses, Regular rate/rhythm Gastrointestinal: Normal bowel sounds, Soft and benign, Non-distended, No tenderness, No masses, No rebound, No guarding Musculoskeletal: No erythema, No tenderness, No warmth Integumentary: No tenderness/swelling, No erythema, No warmth, No cyanosis Neurological: Normal speech, Normal strength at 5/5 x4 extr, Normal tone, Normal affect Lymphatics: No axilla or inguinal lymphadenopathy - Studies Medications List Reviewed: Yes Assessment & Plan - Problems (Diagnosis) (1) COPD (chronic obstructive pulmonary disease) Onset Date: 04/08/18 Current Visit: Yes Status: Chronic Plan: Will continue with COPD medication. Qualifiers: COPD type: unspecified COPD Qualified Code(s): J44.9 - Chronic obstructive pulmonary disease, unspecified (2) Altered mental status Onset Date: 01/10/17 Current Visit: No Status: Acute Plan: This has resolved. Patient with history of bipolar disorder peer will continue with his medication. No indication of infection. Patient with history of gastric varices, GERD. No more coffee-ground emesis. Case discussed with GI. No need for intervention at this time. Will monitor hemoglobin closely. If hemoglobin stable then the patient can be discharged back to the long term. Will recheck hemoglobin the morning. Will discuss with nephrology. Will check iron levels. Patient with history of iron deficiency. Patient may require IV iron. Qualifiers: Altered mental status type: unspecified Qualified Code(s): R41.82 - Altered mental status, unspecified (3) GI bleed Onset Date: 05/11/17 Current Visit: No Status: Suspected Plan: Hemoglobin trending down, no more coffee-ground emesis noted. Case discussed with GI. No intervention is planned. Will advance diet. Will monitor closely. Anticipate discharge if hemoglobin stabilizes and he reports no abdominal pain or coffee-ground emesis. Qualifiers: GI bleed type/associated pathology: unspecified gastrointestinal hemorrhage type Qualified Code(s): K92.2 - Gastrointestinal hemorrhage, unspecified (4) Bipolar disorder Onset Date: 05/04/17 Current Visit: No Status: Chronic Plan: Will continue with his medication. Qualifiers: Active/Remission status: remission status unspecified Qualified Code(s): F31.9 - Bipolar disorder, unspecified (5) Diabetes mellitus Onset Date: 05/04/17 Current Visit: No Status: Chronic Plan: Will provide sliding scale. 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 Patient will need dialysis (7) GERD (gastroesophageal reflux disease) Onset Date: 12/24/17 Current Visit: No Status: Chronic Plan: Will continue with PPI. Qualifiers: Esophagitis presence: with esophagitis Qualified Code(s): K21.0 - Gastro- esophageal reflux disease with esophagitis (8) Gastric varices Onset Date: 05/28/17 Current Visit: No Status: Chronic Plan: Overall stable. GI consulted. Continue as above. (9) Hypertension Onset Date: 12/24/17 Current Visit: No Status: Chronic Plan: Will provide medication. Qualifiers: Hypertension type: essential hypertension Qualified Code(s): I10 - Essential (primary) hypertension (10) Anemia Onset Date: 12/24/17 Current Visit: No Status: Chronic Plan: Hemoglobin trending downward. No more coffee-ground emesis noted. No plan for intervention is needed by GI. Will check iron levels. Patient with history of iron deficiency. Patient may require IV iron. Will monitor hemoglobin closely. Qualifiers: Anemia type: due to chronic kidney disease Chronic kidney disease stage: on chronic dialysis Qualified Code(s): N18.6 - End stage renal disease; D63.1 - Anemia in chronic kidney disease; Z99.2 - Dependence on renal dialysis Discharge Plan: Snf Plan to discharge in: 24 Hours - Code Status/Comfort Care Code Status Assessed: No (Will need to address) Time Spent Managing Pts Care (In Minutes): 55
[2018-04-09] MEDS ORDERED: CARVEDILOL 6.25 MG TAB PO SCH (08:00)
[2018-04-09] MEDS: CARVEDILOL 6.25 MG TAB PO SCH ×2 (08:55→16:17)
[2018-04-09] MEDS: AMIODARONE HCL 200 MG TAB PO SCH (08:55)
[2018-04-09 10:27] LABS: Ferritin 926.7 ng/ml (23.9-336.2)
[2018-04-09] MEDS: ARFORMOTEROL TARTRATE 15 MCG/2 ML VIAL.NEB NEB SCH ×2 (10:30→20:56)
--- NOTE | 2018-04-09 11:38 | P.DS ---
Admission Date: 04/08/18 Discharge Date: 04/09/18 Primary Care Provider: [facility] Disposition: TRANSFER TO [facility] Discharge Condition: GOOD Reason for Admission: GIB Consultations: GI-Dr. Bose Nephrology-Dr. Leavitt - Problems (1) COPD (chronic obstructive pulmonary disease) Onset Date: 04/08/18 Current Visit: Yes Status: Chronic Qualifiers: COPD type: unspecified COPD Qualified Code(s): J44.9 - Chronic obstructive pulmonary disease, unspecified (2) Altered mental status Onset Date: 01/10/17 Current Visit: No Status: Acute Qualifiers: Altered mental status type: unspecified Qualified Code(s): R41.82 - Altered mental status, unspecified (3) GI bleed Onset Date: 05/11/17 Current Visit: No Status: Suspected Qualifiers: GI bleed type/associated pathology: unspecified gastrointestinal hemorrhage type Qualified Code(s): K92.2 - Gastrointestinal hemorrhage, unspecified (4) Bipolar disorder Onset Date: 05/04/17 Current Visit: No Status: Chronic Qualifiers: Active/Remission status: remission status unspecified Qualified Code(s): F31.9 - Bipolar disorder, unspecified (5) Diabetes mellitus Onset Date: 05/04/17 Current Visit: No Status: Chronic Qualifiers: Diabetes mellitus type: type 2 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: with correction use Diabetes mellitus complication status: with other specified complication Qualified Code(s): E11.69 - Type 2 diabetes mellitus with other specified complication; Z79.4 - residential (current) use of insulin (6) ESRD (end stage renal disease) Onset Date: 12/24/17 Current Visit: No Status: Chronic (7) GERD (gastroesophageal reflux disease) Onset Date: 12/24/17 Current Visit: No Status: Chronic Qualifiers: Esophagitis presence: with esophagitis Qualified Code(s): K21.0 - Gastro- esophageal reflux disease with esophagitis (8) Gastric varices Onset Date: 05/28/17 Current Visit: No Status: Chronic (9) Hypertension Onset Date: 12/24/17 Current Visit: No Status: Chronic Qualifiers: Hypertension type: essential hypertension Qualified Code(s): I10 - Essential (primary) hypertension (10) Anemia Onset Date: 12/24/17 Current Visit: No Status: Chronic Qualifiers: Anemia type: due to chronic kidney disease Chronic kidney disease stage: on chronic dialysis Qualified Code(s): N18.6 - End stage renal disease; D63.1 - Anemia in chronic kidney disease; Z99.2 - Dependence on renal dialysis (11) Atrial fibrillation Current Visit: Yes Status: Chronic Qualifiers: Atrial fibrillation type: chronic Qualified Code(s): I48.2 - Chronic atrial fibrillation (12) Dysphagia Current Visit: Yes Status: Chronic Brief History of Present Illness: 57-year-old male presented emergency room with coffee-ground emesis. Patient with multiple medical problems including end-stage renal disease on dialysis, diabetes, hypertension, atrial fibrillation, bipolar disorder, GERD, history of gastric varices. The patient did not have any melena. The patient was admitted for further evaluation. Hemoglobin upon admission. Hospital Course: During the course of his stay. Patient did well. Patient did not require any blood transfusion. Hemoglobin remained stable. His hemoglobin did trend down but stabilized at around 8.5. Initial hemoglobin around 9.9. No melena, coffee -ground emesis was noted at discharge. GI was consulted. GI did not recommend any intervention at this time. Patient has had multiple scopes done in the past. Patient with history of GERD and gastric varices. At discharge patient will continue with Protonix 40 mg 1 pill twice daily. Recommendation is for the patient follow up with GI as an outpatient to further monitor. Recommendation is to recheck CBC in 1 week to monitor his progress. Patient has anemia of chronic disease with iron deficiency anemia. Hemoglobin stable at discharge. At discharge patient will continue with iron 325 mg 1 pill twice daily. Recommendation to recheck CBC in 1 week to monitor his progress. Patient may require IV iron during dialysis in the future. This can be further monitored and addressed by nephrology. Patient has end-stage renal disease on hemodialysis. Patient will continue with dialysis Tuesdays, and Saturdays. Patient has hypertension. Patient will continue with his medications including carvedilol 6.25 mg 1 pill twice daily, ramipril 5 mg 1 pill daily, and Procardia XL 60 mg 1 pill twice daily. Recommendation is to maintain blood pressures less 150/80. Further adjustment can be done at the longterm. Patient has a history of atrial fibrillation. This remained stable. Patient will continue with amiodarone 200 mg 1 pill daily. Patient has bipolar disorder. Patient will continue with Geodon and alprazolam as directed. Patient has a history of diabetes mellitus type 2. Patient has a history of hypoglycemia in the past. Patient will continue with a diabetic diet. Patient has a history of dysphagia. This was evaluated on a previous admission. This was reassessed. Patient will continue with a pureed diet. Patient has COPD. Patient will continue with his medications including Brovana 1 unit dose twice daily and albuterol/Atrovent 1 unit dose 3 times a day as needed for shortness of breath. Vital Signs/Physical Exam: Temp Pulse Resp BP Pulse Ox 96.8 F 63 15 187/84 H 98 04/09/18 07:54 04/09/18 08:55 04/09/18 07:54 04/09/18 08:55 04/09/18 07:54 General: Alert, In no apparent distress HEENT: Atraumatic Neck: Supple Respiratory: Clear to auscultation bilaterally, Normal air movement Cardiovascular: Normal pulses, Regular rate/rhythm Gastrointestinal: Normal bowel sounds, Soft and benign, Non-distended, No tenderness, No masses, No rebound, No guarding Musculoskeletal: No erythema, No tenderness, No warmth Integumentary: No tenderness/swelling, No erythema, No warmth, No cyanosis Neurological: Normal speech, Normal strength at 5/5 x4 extr, Normal tone, Normal affect Laboratory Data at Discharge: WBC 10.0 K/uL (4.3-10.9) D 04/09/18 04:12 Hgb 8.5 g/dL (13.6-17.9) L 04/09/18 09:02 Hct 26.0 % (39.6-49.0) L 04/09/18 09:02 Plt Count 245 K/uL (152-406) D 04/09/18 04:12 Sodium 138 mEq/L (135-145) 04/09/18 04:12 Potassium 5.5 mEq/L (3.6-5.0) H 04/09/18 04:12 BUN 55 mg/dL (6-20) H 04/09/18 04:12 Creatinine 6.17 mg/dL (0.61-1.24) H* D 04/09/18 04:12 Glucose 114 mg/dL (65-120) 04/09/18 04:12 Total Bilirubin 0.3 mg/dL (0.3-1.2) 04/09/18 04:12 AST 11 IU/L (10-42) 04/09/18 04:12 ALT 12 IU/L (10-60) 04/09/18 04:12 Alkaline Phosphatase 65 IU/L (42-121) 04/09/18 04:12 Amylase 76 U/L (28-100) 04/08/18 02:10 Lipase 37 U/L (22-51) 04/08/18 02:10 Home Medications: RX: ALPRAZolam [Xanax*] 0.5 mg PO Q6H PRN 03/20/18 RX: Albuterol Neb [Proventil 0.083% Neb Soln] 2.5 mg NEB [id number] PRN amp RX: Amiodarone HCl [Cordarone*] 200 mg PO DAILY #30 tab 03/29/18 RX: Arformoterol Tartrate [Brovana] 15 mcg NEB BIDRESP #30 vial.neb 03/29/18 RX: Carvedilol [Coreg*] 6.25 mg PO BID #60 tab 03/29/18 RX: Ipratropium Neb [Atrovent*] 0.5 mg NEB [id number] PRN #30 amp 03/29/18 RX: Nifedipine Xl [Procardia XL*] 60 mg PO BID #60 tab 03/29/18 RX: Ramipril [Altace*] 10 mg PO BEDTIME #30 cap 03/29/18 RX: Ziprasidone HCl [Geodon] 20 mg PO BID PRN 04/08/18 RX: Ferrous Sulfate [Ferrous Sulfate*] 325 mg PO BID #60 tab 04/09/18 RX: Pantoprazole [Protonix Tab*] 40 mg PO BIDAC #60 tab 04/09/18 New Medications: RX: Ferrous Sulfate [Ferrous Sulfate*] 325 mg PO BID #60 tab RX: Pantoprazole [Protonix Tab*] 40 mg PO BIDAC #60 tab Patient Discharge Instructions: 1. Patient will return to the longterm. 2. Patient presented with coffee-ground emesis. Patient evaluated by GI and nephrology. Patient with iron deficiency anemia and anemia of chronic disease. Patient did not require blood transfusion. No intervention is needed at this time by GI. His hemoglobin did trend down but stabilized at around 8.5. Initial hemoglobin around 9.9. No melena, coffee-ground emesis was noted at discharge. Patient has had multiple scopes done in the past. Patient with history of GERD and gastric varices. At discharge patient will continue with Protonix 40 mg 1 pill twice daily. Recommendation is for the patient follow up with GI as an outpatient to further monitor. Recommendation is to recheck CBC in 1 week to monitor his progress. 3. Patient has anemia of chronic disease with iron deficiency anemia. Hemoglobin stable at discharge. At discharge patient will continue with iron 325 mg 1 pill twice daily. Recommendation to recheck CBC in 1 week to monitor his progress. Patient may require IV iron during dialysis in the future. This can be further monitored and addressed by nephrology. 4. Patient has end-stage renal disease on hemodialysis. Patient will continue with dialysis Tuesdays, and Saturdays. 5. Patient has hypertension. Patient will continue with his medications including carvedilol 6.25 mg 1 pill twice daily, ramipril 5 mg 1 pill daily, and Procardia XL 60 mg 1 pill twice daily. Recommendation is to maintain blood pressures less 150/80. Further adjustment can be done at the longterm. 6. Patient has a history of atrial fibrillation. This remained stable. Patient will continue with amiodarone 200 mg 1 pill daily. 7. Patient has bipolar disorder. Patient will continue with Geodon and alprazolam as directed. 8. Patient has a history of diabetes mellitus type 2. Patient has a history of hypoglycemia in the past. Patient will continue with a diabetic diet. 9. Patient has a history of dysphagia. This was evaluated on a previous admission. This was reassessed during this hospitalization. Speech recommends to continue with a pureed diet. 10. Patient has COPD. Patient will continue with his medications including Brovana 1 unit dose twice daily and albuterol/Atrovent 1 unit dose 3 times a day as needed for shortness of breath. Diet: Pureed diet Activity: Fall precautions Time spent managing pt's care (in minutes): 55
[2018-04-09] MEDS ORDERED: PANTOPRAZOLE 40MG TABLET PO SCH (16:30)
[2018-04-09 17:10] VITALS: TEMP 97.6
[2018-04-09 18:42] VITALS: BP 177/73
[2018-04-09] MEDS ORDERED: HYDRALAZINE HCL 20 MG/ML VIAL IV ONE ×2 (18:50→19:00)
[2018-04-09] MEDS ORDERED: RAMIPRIL 5 MG CAP PO ONE (19:00)
[2018-04-09] MEDS ORDERED: RAMIPRIL 5 MG CAP PO SCH (21:00)
[2018-04-09] MEDS ORDERED: FERROUS SULFATE 325 MG TAB PO SCH (21:00)
[2018-04-09] MEDS ORDERED: NIFEDIPINE XL 60 MG TABLET PO SCH (21:00)
[2018-04-09 21:19] VITALS: O2SAT 95
--- NOTE | 2018-04-09 21:34 | P.PN ---
Date of Service: 04/09/18 Vital Signs Temp Pulse Resp BP Pulse Ox 97.6 F 60 18 177/73 H 93 04/09/18 17:08 04/09/18 19:19 04/09/18 18:41 04/09/18 19:19 04/09/18 18:41 Medications Albuterol Sulfate (Proventil 0.083% Neb Soln) 2.5 mg NEB [id number] PRN PRN Reason: SHORTNESS OF BREATH Stop: 05/08/18 06:52 Alprazolam (Xanax) 0.5 mg PO Q6H PRN PRN Reason: ANXIETY Stop: 05/08/18 06:58 Amiodarone HCl (Cordarone Tab) 200 mg PO DAILY RUBY Stop: 05/08/18 09:01 Last Admin: 04/09/18 08:55 Dose: 200 mg Arformoterol Tartrate (Brovana) 15 mcg NEB BIDRESP RUBY Stop: 05/08/18 08:01 Last Admin: 04/09/18 20:56 Dose: 15 mcg Carvedilol (Coreg) 6.25 mg PO BIDWM RUBY Stop: 05/08/18 18:01 Last Admin: 04/09/18 16:17 Dose: 6.25 mg Dextrose (Dextrose 50% Syringe) 12.5 gm IV PRN PRN PRN Reason: HYPOGLYCEMIA PROTOCOL Stop: 05/08/18 17:19 Epoetin Jg (Procrit) 10,000 unit IV EVERY HD RUBY Stop: 05/08/18 17:01 Ferrous Sulfate (Feosol) 325 mg PO BID RUBY Stop: 05/09/18 21:01 Glucagon (Glucagen) 1 mg IM 1X PRN PRN Reason: HYPOGLYCEMIA Stop: 05/08/18 17:19 Heparin Sodium (Porcine) (Heparin 1,000 Units/Ml) 2,000 unit IV EVERY HD RUBY Stop: 04/13/18 17:01 Heparin Sodium (Porcine) (Heparin 1,000 Units/Ml) 6,000 unit IV EVERY HD PRN PRN Reason: FLUSH AFTER EACH USE Stop: 04/11/18 13:26 Hydralazine HCl (Apresoline) 10 mg IV Q4HP PRN PRN Reason: HIGH BP Stop: 05/09/18 04:04 Last Admin: 04/09/18 04:41 Dose: 10 mg Albumin Human (Albumin 25%) 50 mls @ 100 mls/hr IV EVERY HD RUBY Stop: 05/08/18 17:01 Insulin Human Regular (Novolin -R) 0 unit SQ ACHS RUBY; Protocol Stop: 05/08/18 21:01 Last Admin: 04/09/18 16:18 Dose: Not Given Ipratropium [place] (Atrovent Neb) 0.5 mg NEB [id number] PRN PRN Reason: SHORTNESS OF BREATH Stop: 05/08/18 06:52 Mannitol (Mannitol 12.5 Gm/50 Ml Vial) 12.5 gm IV EVERY HD PRN PRN Reason: BP support at hemodialysis Stop: 05/08/18 16:50 Nifedipine (Procardia Xl) 60 mg PO BID RUBY Stop: 05/09/18 21:01 Ondansetron HCl (Zofran) 4 mg IV Q6HP PRN PRN Reason: NAUSEA / VOMITING Stop: 05/08/18 04:21 Pantoprazole Sodium (Protonix Tab) 40 mg PO BIDAC RUBY Stop: 05/09/18 16:31 Last Admin: 04/09/18 16:18 Dose: 40 mg Ramipril (Altace) 10 mg PO BEDTIME RUBY Stop: 05/09/18 21:01 Ramipril (Altace) 5 mg PO DAILY RUBY Stop: 05/10/18 09:01 Last Admin: 04/09/18 19:19 Dose: 5 mg Sodium Chloride (Normal Saline Flush) 10 ml IV BID RUBY Stop: 05/08/18 09:01 Last Admin: 04/09/18 08:56 Dose: 10 ml Ziprasidone (Geodon) 20 mg PO BID PRN PRN Reason: AGITATION Stop: 05/08/18 06:58 Lab Results (last 24 hrs) 04/08/18 02:00: Urine RBC Cancelled, Urine WBC Cancelled, Ur Squamous Epith Cells Cancelled, Ur Urothelial Cells Cancelled, Calcium Oxalate Crystal Cancelled, Uric Acid Crystals Cancelled, Triple Phos Crystals Cancelled, Other Crystals Cancelled, Amorphous Sediment Cancelled, Glitter Cells Cancelled, Urine Bacteria Cancelled, Hyaline Casts Cancelled, Fine Granular Casts Cancelled , Coarse Granular Casts Cancelled, Waxy Casts Cancelled, RBC Casts Cancelled, WBC Casts Cancelled, Urine Mucus Cancelled, Urine Other Cancelled, Urine Trichomonas Cancelled, Urine Yeast Cancelled, Ur Yeast w Hyphae Cancelled, Urine Yeast (Budding) Cancelled, Urine Sperm Cancelled, Urine Culture Reflexed Cancelled, Urine Total Volume Cancelled Assessment/ Plan: Nephrology. Doing well and feeling better. CPS stable without CP or SOB. No acute events overnight. Vitals, medications, blood work and imaging reviewed in the chart. General: Oriented x3, Cooperative HEENT: Normocephalic, Mucous membr. moist/pink Neck: Supple Respiratory: Clear to auscultation bilaterally Cardiovascular: Regular rate/rhythm, No rubs, Edema Gastrointestinal: Soft and benign, Non-distended Musculoskeletal: No clubbing, No contractures, No warmth Integumentary: No rashes Neurological: Normal speech Laboratory Data (last 24 hrs) 04/08/18 02:10: Creatinine 4.91 H 04/08/18 02:10: WBC 12.7 H D, Hgb 9.9 L, Hct 30.8 L, Plt Count 308 D 04/08/18 02:10: Sodium 137, Potassium 5.0, BUN 46 H, Creatinine 4.83 H, Glucose 165 H, Total Bilirubin 0.3, AST 14, ALT 14, Alkaline Phosphatase 82, Amylase 76 , Lipase 37 Imagings Data: EXAM DESCRIPTION: RAD - Chest Single View - 04/08/2018 2:39 am CLINICAL HISTORY: GI bleed, vomiting of coffee-ground emesis COMPARISON: March 28, 2018 TECHNIQUE: AP portable chest image was obtained 0227 hours . FINDINGS: Interstitial markings are prominent but similar to comparison. No focal mass, consolidation or significant failure finding. Semi-upright portable imaging and shallow inspiration accentuate heart, vasculature and lung markings. Pulmonary vasculature within limits of normal. Mild cardiomegaly is present as a baseline. Right-sided double-lumen dialysis catheter is in place. No measurable pleural effusion and no pneumothorax. No gross bony abnormality seen. No acute aortic findings suspected. IMPRESSION: No acute cardiopulmonary process. Patient has a baseline mild cardiomegaly and mild prominence of the interstitial markings not substantially different from comparison. Baseline pattern and shallow inspiration could mask the earliest stages of failure or volume overload. Conclusions/Impression: A/ ESRD on HD. Hyperkalemia. HTN with CKD. DM II with CKD. Diastolic CHF, chronic. JACOB/ Secondary HyperPTH. Anemia in CKD. GI Bleed. P/ Continue current POC and Medications. Arrange for acute HD. No heparin. PRBC as needed. Kayexalate X1. Follow up with GI. Restart home medications as indicated. No NSAIDs. AM labs. Daily weight.
[2018-04-10] MEDS ORDERED: RAMIPRIL 5 MG CAP PO SCH (09:00)
== END 2018-04-09 21:05 ==
LOC: ER 01:39 → INTOOBSV 03:07 → ERHOLD 03:07 → 4TH 07:39
PROVIDERS: ADMIT Internal Medicine; ATTEND Internal Medicine
DX: K92.0 Hematemesis (principal); I13.2 Hypertensive heart and chronic kidney disease with heart failure and with stage 5 chronic kidney disease, or end stage renal disease; E11.22 Type 2 diabetes mellitus with diabetic chronic kidney disease; N18.6 End stage renal disease; I50.32 Chronic diastolic (congestive) heart failure; Z99.2 Dependence on renal dialysis; D63.1 Anemia in chronic kidney disease; J44.9 Chronic obstructive pulmonary disease, unspecified; I48.91 Unspecified atrial fibrillation; K21.9 Gastro-esophageal reflux disease without esophagitis; F31.9 Bipolar disorder, unspecified; R13.10 Dysphagia, unspecified; Z79.01 Long term (current) use of anticoagulants; I25.10 Atherosclerotic heart disease of native coronary artery without angina pectoris; Z95.5 Presence of coronary angioplasty implant and graft
CPT/HCPCS: 36415; 71045; 80048; 80053; 80076; 82150; 82607; 82728; 82962; 83540; 83690; 84466; 85014; 85018; 85025; 86850; 86900; 86901; 90935; 94640; 94760; 96365; 96366; 96375; 99285; C9113; G0378; J0360; J2405; J2550; J7030; J7605; Q4081

== ENCOUNTER 2018-08-01 14:29 | Emergency (ER) | payer MEDICAID ==
--- OUTSIDE RECORDS SUMMARY | 2018-08-01 14:32 | XMS REPORT | Clinical Summary ---
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 Paraplegic spinal paralysis ([facility]) 12/26/2016 Sacral decubitus ulcer 12/26/2016 ESRD on hemodialysis ([facility]) 12/26/2016 Acute bilateral low back pain without sciatica 11/30/2016 Back pain 11/29/2016 Complications, dialysis, catheter, mechanical ([facility]) 04/06/2016 Angina effort ([facility]) 09/04/2014 CAD (coronary artery disease) 09/04/2014 Social History Tobacco Use Types Packs/Day Years Used Date Former Smoker 0 Alcohol Use Drinks/Week oz/Week Comments No Sex Assigned at Date Recorded Not on file Last Filed Vital Signs Not on file Plan of Treatment Not on file Implants Implanted Type Area Machine Fancy Stitcher Device Expiration Model / Identifier Date Serial / Lot Infusion Set Bone Infuseii Lg [id number] - [id number] Bone N/A: MEDTRONIC: SPINAL 08/22/2018 [id number] / Implanted: Qty: 1 on 12/12/2016 by Eduardo Ruggiero MD Spine BIOLOGICS / Lumbar [id number] Matrix Floseal Hemo W/O Ndl 10 [id number] - [id number] Cement/Fi N/A: MA: BIOSCI 04/20/2019 [id number] / Implanted: Qty: 2 on 12/12/2016 by Eduardo Ruggiero MD ller/T[place] Spine / sive Lumbar [id number] Bone Putty Stimulan [facility] 620-010 - [id number] Cement/Fi N/A: BIOCOMPOSITES 08/21/2019 [id number] / Implanted: Qty: 1 on 12/12/2016 by Eduardo Ruggiero MD ller/[employer] Spine / sive Lumbar 08/06-R300/301 Connector Set Screw Joints N/A: MEDTR[employer]IC [id number] / Implanted: Qty: 1 on 12/12/2016 by Eduardo Ruggiero MD Spine / Lumbar Scr Mas 8.5x90 [id number] - [id number] Spine N/A: MEDTR[employer]IC:SPINE: [id number] / Implanted: Qty: 1 on 12/12/2016 by Eduardo Ruggiero MD Spine SOFAMOR DANEK / Lumbar [id number] Ballast Mas 8.5x80 Spine N/A: MEDTR[employer]IC [id number] / Implanted: Qty: 1 on 12/12/2016 by Eduardo Ruggiero MD Spine / Lumbar [id number] Taco [id number] Spine N/A: [employer]IC [id number] / Implanted: Qty: 2 on 12/12/2016 by Eduardo Ruggiero MD Spine / Lumbar [id number] Connector 20mm Spine N/A: [employer]IC [id number] / Implanted: Qty: 1 on 12/12/2016 by Eduardo Ruggiero MD Spine / Lumbar Medtronic Sofamor Danek 10cc Sprinal Graft Spine N/A: MED[employer]IC 2017 [id number] / Implanted: Qty: 1 on 12/12/2016 by Eduardo Ruggiero MD Spine [id number] / Lumbar Medtronic Sofamor Daek Orthoblend Small 10cc Spine N/A: MED[employer]IC 2017 [id number] / Implanted: Qty: 1 on 12/12/2016 by Eduardo Ruggiero MD Spine [id number] / Lumbar Medtronic Sofarmor Danek Orthoblend Small 10cc Spine N/A: [employer]IC [id number] / Implanted: Qty: 1 on 12/12/2016 by Eduardo Ruggiero MD Spine [id number] / Lumbar Screw Set Ti Ns Brk Off 5.5 - [id number] Spine N/A: [employer]:SPINAL [id number] / Implanted: Qty: 6 on 12/12/2016 by Eduardo Ruggiero MD Spine BIOLOGICS / Lumbar [id number] Screw Mas Cc 7.5x50 [id number] - [id number] Spine N/A: [employer]:SPINAL [id number] / Implanted: Qty: 2 on 12/12/2016 by Eduardo Ruggiero MD Spine BIOLOGICS / Lumbar [id number] Screw [facility] Cc 7.5 X 45 [id number] - [id number] Spine N/A: [employer]:SPINAL [id number] / Implanted: Qty: 2 on 12/12/2016 by Eduardo Ruggiero MD Spine BIOLOGICS / Lumbar [id number] Results Not on fileafter 07/31/2017
--- OUTSIDE RECORDS SUMMARY | 2018-08-01 14:33 | XMS REPORT | Continuity of Care Document ---
:1960 Author Organization Interface Problems Problem Status Onset Classification Date Comments Source Date Reported MRSA<sup>1, 2, Active Problem 06/24/2016 Problem [facility] 3, 4</sup> 6 added by [facility] Center Expert. MARIESL COYLE Active [address] CAD - Coronary Resolved Problem 06/24/2016 [facility] artery disease [facility] Congestive Resolved Problem 06/24/2016 [facility] heart failure [facility] COPD Resolved Problem 06/24/2016 [facility] Diabetes Resolved Problem 06/24/2016 [facility] HTN (<span Resolved Problem 06/24/2016 [facility] ID="[id number] Medical 7">Confirmed</s Center pollack>) MRSA infection Resolved Problem 06/24/2016 [facility] ILLNESS, Active [facility] UNSPECIFIED [facility] Center Medications Medication Details Route Status Patient Ordering Order Source Instructions Provider Date clopidogrel 75 mg 75 mg=1 tab, Active [facility] oral tablet PO, Daily, 0 016 Medical Refill(s) [place] bisacodyl 10 mg 10 mg=1 Active [facility] rectal supp, ID, 016 Medical suppository Daily, PRN Center Constipation , 0 Refill(s) atorvastatin 40 40 mg=1 tab, Active [facility] mg oral tablet PO, Daily, 0 016 Medical Refill(s) Center amLODIPine 10 mg 10 mg=1 tab, Active [facility] oral tablet PO, Daily, 0 016 Medical Refill(s) [place] acetaminophen 325 650 mg=2 Active [facility] mg oral tablet tab, PO, 016 Medical Q6H, PRN Center Pain 1-3/Temp > 100.4 F, 0 Refill(s) tiotropium 18 Active [facility] microgram=1 016 Medical inhalation, Center INHALATION, RDaily, 0 Refill(s) ziprasidone 20 mg 20 mg=1 cap, Active [facility] oral capsule PO, BID, 0 016 Medical Refill(s) [place] Sucralfate 100 1 gm=10 mL, Active [place] MG/ML Oral PO, QID, 0 016 Medical Suspension Refill(s) [place] senna 8.6 mg oral 8.6 mg=1 Active [facility] tablet tab, PO, 016 Medical Daily, 0 Center Refill(s) polyethylene 17 gm, PO, Active [facility] glycol 3350 oral BID, 0 016 Medical powder for Refill(s) [place] reconstitution pantoprazole 40 40 mg=1 tab, Active [place] mg oral enteric PO, BID, 0 016 Medical coated tablet Refill(s) [place] Oxycodone 5 mg=1 tab, Active [facility] Hydrochloride 5 PO, Q6H, PRN 016 Medical MG Oral Tablet Pain Score Center 4-6, 0 Refill(s) metoprolol 25 mg=1 tab, Active [facility] tartrate 25 mg PO, Q12H, 0 016 Medical oral tablet Refill(s) [place] methocarbamol 500 1,000 mg=2 Active [facility] mg oral tablet tab, PO, 016 Medical Q8Hnow, 0 Center Refill(s) losartan 50 mg 50 mg=1 tab, Active [facility] oral tablet PO, Daily, 0 016 Medical Refill(s) [place] insulin detemir 10 unit, Active [facility] 100 units/mL SUB-Q, Q12H, 016 Medical subcutaneous 0 Refill(s) [place] solution Hydralazine 25 mg=1 tab, Active [facility] Hydrochloride 25 PO, Q6H-02, 016 Medical MG Oral Tablet 0 Refill(s) [place] gabapentin 100 MG 100 mg=1 Active [facility] Oral Capsule cap, PO, 016 Medical Daily, 0 Center Refill(s) doxazosin 4 mg 4 mg=1 tab, Active [facility] oral tablet PO, Daily, 0 016 Medical Refill(s) [place] donepezil 5 mg 10 mg=2 tab, Active [facility] oral tablet PO, Bedtime, 016 Medical 0 Refill(s) [place] Docusate Sodium 100 mg=1 Active [facility] [place] 100 MG Oral cap, PO, 016 Medical Capsule BID, 0 Center Refill(s) Aspirin 81 MG 81 mg=1 tab, Active [facility] Enteric Coated PO, Daily, 0 016 Medical Tablet Refill(s) Center Plavix 75 mg, 1 Inactive [facility] tab, Route: 016 Medical PO, Drug Center form: TAB, Daily, Dosing Weight 104.33, kg, Start date: 06/21/16 9:00:00 CDT, Duration: 30 day, Stop date: 07/20/16 9:00:00 CDTNotes: (Same As: Plavix) Aspirin 81 mg, 1 No Longer [facility] tab, Route: Active 016 Medical PO, Drug Center form: ECTAB, Daily, Dosing Weight 104.33, kg, Start date: 06/20/16 16:17:00 CDT, Duration: 30 day, Stop date: 07/20/16 9:00:00 CDT vancomycin 1 g See Active [facility] intravenous Instructions 016 Medical injection , infused Center over 60 minute, # 1 vial, 0 Refill(s) gabapentin 100 MG 100 mg, 1 Inactive [facility] Oral Capsule cap, Route: 016 Medical PO, Drug Center form: CAP, ONCE, Dosing Weight 104.33, kg, Start date: 06/19/16 17:40:00 CDT, Stop date: 06/19/16 17:40:00 CDTNotes: (Same as: Neurontin) Dilaudid 0.2 mg, 0.1 No Longer [facility] mL, Route: Active 016 Medical IVP, Drug Center form: INJ, Q4H, Dosing Weight 104.33, kg, PRN Pain Score 7-10, Start date: 06/19/16 17:37:00 CDT, Duration: 30 day, Stop date: 07/19/16 17:36:00 CDTNotes: Same as: Dilaudid Oxycodone 10 mg, 2 No Longer [facility] Hydrochloride 5 tab, Route: Active 016 Medical MG Oral Tablet PO, Drug Center form: TAB, Q6H, Dosing Weight 104.33, kg, PRN Pain Score 7-10, Start date: 06/19/16 17:36:00 CDT, Duration: 30 day, Stop date: 07/19/16 17:35:00 CDTNotes: (Same as: Roxicodone) vancomycin + 2 gm, Route: Inactive [facility] sodium chloride IVPB, ONCE, 016 Medical 0.9% 500 ml INJ Start date: Center 500 mL 06/19/16 15:00:00 CDT, Stop date: 06/19/16 15:00:00 CDTNotes: TIME CRITICAL MEDICATION (Same As: Vancocin) Infusion rate 2001 mg: infuse over 2.5 hours MEDICATION WASTE Product Size: 1000 mg Product Wasted: ___ mg hydrALAZINE 25 mg, 1 No Longer [facility] tab, Route: Active 016 Medical PO, Drug Center form: TAB, Q6H-02, Dosing Weight 104.33, kg, Priority: Routine, Start date: 06/17/16 12:00:00 CDT, Duration: 30 day, Stop date: 07/17/16 6:00:00 CDTNotes: (Same as: Apresoline) May interfere w/enteral feedings Take With Food. Protonix 80 mg, 2 No Longer [facility] tab, Route: Active 016 Medical PO, Drug Center form: ECTAB, BID, Dosing Weight 104.33, kg, Start date: 06/17/16 9:00:00 CDT, Duration: 30 day, Stop date: 07/16/16 17:00:00 CDTNotes: Tablet should not be chewed or crushed. (Same as: Protonix) Protonix 40 mg, 1 No Longer [facility] tab, Route: Active 016 Medical PO, Drug Center form: ECTAB, BID, Dosing Weight 104.33, kg, Start date: 06/16/16 17:00:00 CDT, Duration: 30 day, Stop date: 07/16/16 9:00:00 CDT vancomycin + 2 gm, Route: Inactive [facility] sodium chloride IVPB, ONCE, 016 Medical 0.9% 500 ml INJ Start date: Center 500 mL 06/16/16 14:30:00 CDT, Stop date: 06/16/16 14:30:00 CDTNotes: TIME CRITICAL MEDICATION (Same As: Vancocin) Infusion rate 2001 mg: infuse over 2.5 hours MEDICATION WASTE Product Size: 1000 mg Product Wasted: ___ mg gabapentin 100 MG 100 mg, 1 No Longer [facility] Oral Capsule cap, Route: Active 016 Medical PO, Drug Center form: CAP, Daily, Dosing Weight 104.33, kg, Start date: 06/16/16 11:46:00 CDT, Duration: 30 day, Stop date: 07/16/16 9:00:00 CDTNotes: (Same as: Neurontin) Cozaar 50 mg, 1 No Longer [facility] tab, Route: Active 016 Medical PO, Drug Center form: TAB, Daily, Dosing Weight 104.33, kg, Start date: 06/16/16 9:00:00 CDT, Duration: 30 day, Stop date: 07/15/16 9:00:00 CDTNotes: (Same as: Cozaar) Amlodipine 10 mg, 1 No Longer [facility] tab, Route: Active 016 Medical PO, Drug Center form: TAB, Daily, Dosing Weight 104.33, kg, Start date: 06/16/16 9:00:00 CDT, Duration: 30 day, Stop date: 07/15/16 9:00:00 CDTNotes: (Same as: Norvasc) sodium chloride 250 mL, No Longer [facility] 0.9% INJ 250 mL Rate: On [place] [address] Medical call for use Center with blood product administrati on, Dosing Weight 104.33, kg, Route: IV, Total Volume: 250, Start Date: 06/16/16 7:16:00 CDT, Duration: 1 doses or times, Stop date: 06/17/16 7:15:00 CDT, Replace Every: 24 hr Robaxin 1,000 mg, 2 No Longer [facility] tab, Route: Active 016 Medical PO, Drug Center form: TAB, Q8Hnow, Dosing Weight 104.33, kg, Start date: 06/16/16 0:00:00 CDT, Duration: 30 day, Stop date: 07/15/16 16:00:00 CDTNotes: (Same as:Robaxin) hydrALAZINE 50 mg, 1 No Longer [facility] tab, Route: Active 016 Medical PO, Drug Center form: TAB, Q6H-02, Dosing Weight 104.33, kg, Priority: Routine, Start date: 06/16/16 0:00:00 CDT, Duration: 30 day, Stop date: 07/15/16 18:00:00 CDTNotes: (Same as: Apresoline) May interfere w/enteral feedings Take With Food Levemir 10 unit, 0.1 No Longer [facility] mL, Route: Active 016 Medical SUB-Q, Drug Center form: INJ, Q12H, Dosing Weight 104.33, kg, Start date: 06/15/16 21:00:00 CDT, Duration: 30 day, Stop date: 07/15/16 9:00:00 CDTNotes: Same as Levemir Do not hold insulin without contacting prescriber WASTE: F/P - Black; E - Municipal Trash Bin "single patient use only" Vancomycin 1,500 mg, Inactive [facility] Route: IVPB, [facility] Drug form: [place] INJ, ONCE, Dosing Weight 104.33, kg, Start date: 06/15/16 17:17:00 CDT, Stop date: 06/15/16 17:17:00 CDT sodium chloride 250 mL, No Longer [facility] 0.9% 1000 ml INJ Rate: On [facility] 016 [facility] 250 mL call for use Center with blood product administrati on, Dosing Weight 104.33, kg, Route: IV, Total Volume: 250, Start Date: 06/15/16 0:25:00 CDT, Duration: 30 day, Stop date: 07/15/16 0:24:00 CDT, Replace Every: 24 hr Protonix 40 mg, No Longer [facility] Route: IVP, Active 016 Medical Drug form: [place] INJ, BID, Dosing Weight 104.33, kg, Start date: 06/14/16 17:00:00 CDT, Duration: 30 day, Stop date: 07/14/16 9:00:00 CDT Carafate 1 gm, 10 mL, No Longer [facility] Route: PO, Active 016 Medical Drug form: [place] SUSP, QID, Start date: 06/14/16 13:00:00 CDT, Duration: 14 day, Stop date: 06/28/16 9:00:00 CDT Lopressor 25 mg, 1 No Longer [facility] tab, Route: Active 016 Medical PO, Drug Center form: TAB, Q12H, Dosing Weight 104.33, kg, Start date: 06/14/16 9:55:00 CDT, Duration: 30 day, Stop date: 07/14/16 9:00:00 CDTNotes: (Same as: Lopressor) Doxazosin 4 mg, 1 tab, No Longer [facility] Route: PO, Active 016 Medical Drug form: [place] TAB, Daily, Dosing Weight 104.33, kg, Start date: 06/14/16 9:00:00 CDT, Duration: 30 day, Stop date: 07/13/16 9:00:00 CDTNotes: (Same as: Maricarmen) Sodium Chloride 100 mL, No Longer [facility] 0.154 MEQ/ML Rate: [address] [place] [address] Medical Injectable ml/hr, [place] Solution Infuse over: 10 hr, Route: IVPB, Dosing Weight 104.33 kg, Total Volume: 100, Infuse at 8 mg / hr for 72 hours for GI bleeding, Start date: 06/13/16 21:35:00 CDT, Duration: 72 hr, Stop date: 06/16/16 21:34:00 CDT Metoclopramide 5 5 mg, 1 tab, No Longer [facility] MG Oral Tablet Route: PO, Active 016 Medical [Reglan] Drug form: [place] TAB, Before Meals & Bedtime, Dosing Weight 104.33, kg, Start date: 06/13/16 21:00:00 CDT, Duration: 30 day, Stop date: 07/13/16 16:30:00 CDTNotes: (Same as: Reglan) magnesium citrate 300 ml, Inactive [facility] Route: PO, 016 Medical Drug Form: [place] LIQ, Dosing Weight 104.33, kg, ONCE, Start date: 06/13/16 19:55:00 CDT, Stop date: 06/13/16 19:55:00 CDTNotes: (Same as: Citrate of Magnesia) SMOG Enema 300 ml, No Longer [facility] Route: ID, Active Medical Drug Form: Center TONIA, Dosing Weight 104.33, kg, ONCE, Start date: 06/13/16 19:54:00 CDT, Duration: 1 doses or times, Stop date: 06/13/16 19:54:00 CDTNotes: Non formulary item Cardura 2 mg, 1 tab, Inactive [facility] Route: PO, Medical Drug form: [place] TAB, ONCE, Start date: 06/13/16 15:22:00 CDT, Stop date: 06/13/16 15:22:00 CDTNotes: (Same as: Cardura) Vancomycin 1.5 gm, Inactive [facility] Route: IVPB, [address] [place] [address] ONCE, Dosing Center Weight 104.33, kg, Start date: 06/13/16 3:57:00 CDT, Stop date: 06/13/16 3:57:00 CDTNotes: TIME CRITICAL MEDICATION (Same As: Vancocin) Infusion rate 2001 mg: infuse over 2.5 hours MEDICATION WASTE Product Size: 1000 mg Product Wasted: ___ mg Phenergan 12.5 mg, 0.5 No Longer [facility] mL, Route: Active [facility] IVPB, Drug Center form: INJ, Q6H, PRN Nausea, Start date: 06/13/16 3:11:00 CDT, Duration: 30 day, Stop date: 07/13/16 3:10:00 CDTNotes: Do not give IV push. (Same as: Phenergan) Compazine 5 mg, Route: Inactive [facility] IV, Q3H, 016 Medical Dosing Center Weight 104.33, kg, PRN Nausea & Vomiting, Start date: 06/13/16 2:02:00 CDT, Duration: 30 day, Stop date: 07/13/16 2:01:00 CDT Doxazosin 2 mg, 1 tab, No Longer [facility] Route: PO, Active 016 Medical Drug form: Center TAB, Daily, Dosing Weight 104.33, kg, Start date: 06/12/16 10:30:00 CDT, Duration: 30 day, Stop date: 07/12/16 9:00:00 CDTNotes: (Same as: Maricarmen) Dilaudid 0.2 mg, 0.1 No Longer [facility] mL, Route: Active 016 Medical IVP, Drug Center form: INJ, Q4H, Dosing Weight 104.33, kg, PRN Pain Score 7-10, Start date: 06/12/16 10:19:00 CDT, Duration: 30 day, Stop date: 07/12/16 10:18:00 CDTNotes: Same as: Dilaudid hydrALAZINE 50 mg, 1 No Longer [facility] tab, Route: Active 016 Medical PO, Drug Center form: TAB, Q6H-02, Dosing Weight 104.33, kg, Priority: Routine, Start date: 06/10/16 12:30:00 CDT, Duration: 30 day, Stop date: 07/10/16 6:30:00 CDTNotes: (Same as: Apresoline) May interfere w/enteral feedings Take With Food vancomycin 1 gm, Route: Inactive [facility] IVPB, Drug [facility] Medical form: INJ, Center ONCE, Start date: 06/10/16 2:30:00 CDT, Stop date: 06/10/16 2:30:00 CDTNotes: TIME CRITICAL MEDICATION (Same As: Vancocin) Infusion rate 2001 mg: infuse over 2.5 hours MEDICATION WASTE Product Size: 1000 mg Product Wasted: ___ mg hydrALAZINE 25 mg 25 mg, 1 Inactive [facility] oral tablet tab, Route: 016 Medical PO, Drug Center form: TAB, Q6H-02, Dosing Weight 104.33, kg, Priority: Routine, Start date: 06/10/16 0:30:00 CDT, Duration: 30 day, Stop date: 07/09/16 18:30:00 CDTNotes: (Same as: Apresoline) May interfere w/enteral feedings Take With Food. vancomycin + 750 mg, Inactive [facility] sodium chloride Route: IVPB, 016 Medical 0.9% 250 mL INJ Q-, Center (for IV set) 250 Start date: mL 06/08/16 16:00:00 CDT, Duration: 30 day, Stop date: 07/06/16 16:00:00 CDTNotes: TIME CRITICAL MEDICATION (Same As: Vancocin) Infusion rate 2001 mg: infuse over 2.5 hours MEDICATION WASTE Product Size: 1000 mg Product Wasted: ___ mg Hydralazine 25 mg, 1 No Longer [place] Hydrochloride 25 tab, Route: Active 016 Medical MG Oral Tablet PO, Drug Center form: TAB, Q6H-02, Dosing Weight 104.33, kg, Priority: NOW, Start date: 06/08/16 13:13:00 CDT, Duration: 30 day, Stop date: 07/08/16 6:30:00 CDTNotes: (Same as: Apresoline) May interfere w/enteral feedings Take With Food. vancomycin 1 gm, Route: Inactive [facility] IVPB, Drug 016 Medical form: INJ, Center ONCE, Start date: 06/08/16 13:00:00 CDT, Stop date: 06/08/16 13:00:00 CDTNotes: TIME CRITICAL MEDICATION (Same As: Vancocin) Infusion rate 2001 mg: infuse over 2.5 hours MEDICATION WASTE Product Size: 1000 mg Product Wasted: ___ mg Geodon 20 mg, 1 No Longer [facility] cap, Route: Active 016 Medical PO, Drug Center form: CAP, BID, Dosing Weight 104.33, kg, Priority: NOW, Start date: 06/08/16 12:44:00 CDT, Duration: 30 day, Stop date: 07/08/16 9:00:00 CDTNotes: (Same As: Geodon) Give with Food Robaxin 500 mg, 1 No Longer [place] tab, Route: Active 016 Medical PO, Drug Center form: TAB, TID, Dosing Weight 104.33, kg, Start date: 06/08/16 9:00:00 CDT, Duration: 30 day, Stop date: 07/07/16 17:00:00 CDTNotes: (Same as:Robaxin) Robaxin 500 mg, 1 No Longer [facility] tab, Route: Active 016 Medical PO, Drug Center form: TAB, Q8H, Dosing Weight 104.33, kg, Priority: NOW, Start date: 06/07/16 22:02:00 CDT, Duration: 30 day, Stop date: 07/07/16 22:00:00 CDTNotes: (Same as:Robaxin) Milk of Magnesia 60 ml, Inactive [facility] Route: PO, 016 Medical Drug Form: [place] SUSP, Dosing Weight 104.33, kg, ONCE, Start date: 06/07/16 19:09:00 CDT, Stop date: 06/07/16 19:09:00 CDTNotes: (Same as: Milk of Magnesia, MOM) heparin 5,000 unit, No Longer [facility] 1 mL, Route: Active 016 Medical SUB-Q, Drug Center form: INJ, Q8H, Dosing Weight 104.33, kg, Start date: 06/07/16 16:00:00 CDT, Duration: 30 day, Stop date: 07/07/16 8:00:00 CDTNotes: porcine heparin molasses 240 mL, Inactive [facility] Route: ID, 016 Medical Drug Form: [place] SYRP, Dosing Weight 104.33, kg, ONCE, Milk of Molasses Enema, Start date: 06/07/16 10:36:00 CDT, Duration: 1 doses or times, Stop date: 06/07/16 10:36:00 CDTNotes: (Same as:Molasses) Oxycodone 5 mg, 1 tab, No Longer [facility] Hydrochloride 5 Route: PO, Active 016 Medical MG Oral Tablet Drug form: [place] TAB, Q6H, Dosing Weight 104.33, kg, PRN Pain Score 4-6, Start date: 06/07/16 10:15:00 CDT, Duration: 30 day, Stop date: 07/07/16 10:14:00 CDTNotes: (Same as: Roxicodone) sennosides, LONG-TERM 8.6 mg, 1 No Longer [facility] tab, Route: Active 016 Medical PO, Drug Center Form: TAB, Dosing Weight 104.33, kg, Daily, Start date: 06/07/16 9:00:00 CDT, Duration: 30 day, Stop date: 07/06/16 9:00:00 CDTNotes: (Same as: Isaiahot) lurasidone 80 mg, No Longer [facility] Route: PO, Active 016 Medical Drug form: Center TAB, Daily, Dosing Weight 104.33, kg, Start date: 06/07/16 9:00:00 CDT, Duration: 30 day, Stop date: 07/06/16 9:00:00 CDT atorvastatin 40 mg, 1 No Longer [facility] tab, Route: Active 016 Medical PO, Drug Center form: TAB, Daily, Dosing Weight 104.33, kg, Start date: 06/07/16 9:00:00 CDT, Duration: 30 day, Stop date: 07/06/16 9:00:00 CDTNotes: (Same as: Lipitor) Amlodipine 10 mg, 1 No Longer [facility] tab, Route: Active 016 Medical PO, Drug Center form: TAB, Daily, Dosing Weight 104.33, kg, Start date: 06/07/16 9:00:00 CDT, Duration: 30 day, Stop date: 07/06/16 9:00:00 CDTNotes: (Same as: [place]) Levemir 5 unit, 0.05 No Longer [facility] mL, Route: Active 016 Medical SUB-Q, Drug Center form: INJ, Bedtime, Dosing Weight 104.33, kg, Start date: 06/06/16 21:00:00 CDT, Stop date: 07/05/16 21:00:00 CDTNotes: Same as Levemir Do not hold insulin without contacting prescriber WASTE: F/P - Black; E - Municipal Trash Bin "single patient use only" Geodon 40 mg, 1 No Longer [facility] cap, Route: Active 016 Medical PO, Drug Center form: CAP, Bedtime, Dosing Weight 104.33, kg, Start date: 06/06/16 21:00:00 CDT, Duration: 30 day, Stop date: 07/05/16 21:00:00 CDT donepezil 10 mg, 2 No Longer [facility] tab, Route: Active 016 Medical PO, Drug Center form: TAB, Bedtime, Dosing Weight 104.33, kg, Start date: 06/06/16 21:00:00 CDT, Duration: 30 day, Stop date: 07/05/16 21:00:00 CDTNotes: (Same as: Aricept) Furosemide 40 MG 40 mg=1 tab, No Longer [facility] Oral Tablet PO, 0 Active [facility] Medical Refill(s) [place] Humulin 70/30 Pen SUB-Q, 0 No Longer [facility] Refill(s) [address] terazosin 2 mg 2 mg=1 cap, No Longer [facility] oral capsule PO, 0 Active [facility] Medical Refill(s) [place] 3 ML Insulin 6 unit, No Longer [facility] Lispro 100 UNT/ML SUB-Q, # [address] [place] [address] Pen Injector mL, 0 Center [Humalog] Refill(s) vancomycin + 750 mg, Inactive [facility] sodium chloride Route: IVPB, [address] [place] [address] 0.9% 250 mL INJ , Center (for IV set) 250 Start date: mL 06/06/16 18:00:00 CDT, Duration: 30 day, Stop date: 07/06/16 16:00:00 CDTNotes: TIME CRITICAL MEDICATION (Same As: Vancocin) Infusion rate 2001 mg: infuse over 2.5 hours MEDICATION WASTE Product Size: 1000 mg Product Wasted: ___ mg Docusate Sodium 100 mg, 1 Inactive [facility] 100 MG Oral cap, Route: [facility] Medical Capsule [Colace] PO, BID, Center Dosing Weight 104.33, kg, Start date: 06/06/16 17:00:00 CDT, Duration: 30 day, Stop date: 07/06/16 9:00:00 CDT Miralax 17 gm, 1 No Longer [facility] pkt, Route: Active [facility] Medical PO, Drug Center form: PWDR, BID, Dosing Weight 104.33, kg, Start date: 06/06/16 17:00:00 CDT, Duration: 30 day, Stop date: 07/06/16 9:00:00 CDTNotes: Dissolve in 8 oz of water or juice. (Same as: Miralax) Docusate 100 mg, 1 No Longer [facility] cap, Route: Active 016 Medical PO, Drug Center form: CAP, BID, Dosing Weight 104.33, kg, Start date: 06/06/16 17:00:00 CDT, Duration: 30 day, Stop date: 07/06/16 9:00:00 CDTNotes: (Same as: Colace) (Do Not Crush) ranolazine 1,000 mg, 2 No Longer [facility] tab, Route: Active 016 Medical PO, Drug Center form: TAB, BID, Dosing Weight 104.33, kg, Start date: 06/06/16 17:00:00 CDT, Duration: 30 day, Stop date: 07/06/16 9:00:00 CDT Cozaar 100 mg, 2 No Longer [facility] tab, Route: Active 016 Medical PO, Drug Center form: TAB, Daily, Dosing Weight 104.33, kg, Start date: 06/06/16 17:00:00 CDT, Duration: 30 day, Stop date: 07/06/16 9:00:00 CDTNotes: (Same as: Cozaar) vancomycin + 2,250 mg, Inactive [facility] sodium chloride Route: IVPB, [facility] Medical 0.9% 500 mL INJ ONCE, [place] (for IV set) 500 Priority: mL Routine, Start date: 06/06/16 17:00:00 CDT, Stop date: 06/06/16 17:00:00 CDTNotes: TIME CRITICAL MEDICATION (Same As: Vancocin) Infusion rate 2001 mg: infuse over 2.5 hours MEDICATION WASTE Product Size: 1000 mg Product Wasted: ___ mg Acetaminophen 325 1 tab, No Longer [facility] MG / Hydrocodone Route: PO, Active [facility] Medical Bitartrate 5 MG Drug Form: Center Oral Tablet TAB, Dosing [[place] 5/325] Weight 104.33, kg, Q4H, PRN Pain Score 4-6, Start date: 06/06/16 16:23:00 CDT, Duration: 30 day, Stop date: 07/06/16 16:22:00 CDTNotes: (Same as: [place] 325/5) Do not exceed 4gm/day of acetaminophe n. Tylenol 650 mg, 2 No Longer [facility] tab, Route: Active 016 Medical PO, Drug Center form: TAB, Q6H, Dosing Weight 104.33, kg, PRN Pain 1-3/Temp > 100.4 F, Start date: 06/06/16 16:22:00 CDT, Duration: 30 day, Stop date: 07/06/16 16:21:00 CDTNotes: Do not exceed 4 gm/day. (Same as: Tylenol) tramadol 50 mg, 1 No Longer [place] hydrochloride 50 tab, Route: Active 016 Medical MG Oral Tablet PO, Drug Center form: TAB, Q6H, Dosing Weight 104.33, kg, PRN Pain Score 1-3, Start date: 06/06/16 16:22:00 CDT, Duration: 30 day, Stop date: 07/06/16 16:21:00 CDTNotes: Not to exceed 400mg/day. (Same As: Ultram) meropenem 500 mg, No Longer [facility] Route: IVPB, Active 016 Medical Drug form: Center PDR/INJ, [id number], Dosing Weight 104.33, kg, CrCL=Notes: Same as [place] MEDICATION WASTE Product Size: 500 mg Product Wasted: ___ mg Plavix 75 mg, 1 No Longer [facility] tab, Route: Active 016 Medical PO, Drug Center form: TAB, Daily, Dosing Weight 104.33, kg, Start date: 06/06/16 14:23:00 CDT, Duration: 30 day, Stop date: 07/06/16 9:00:00 CDTNotes: (Same As: Plavix) Aspirin 325 mg, 1 No Longer [facility] tab, Route: Active 016 Medical PO, Drug Center form: TAB, Daily, Dosing Weight 104.33, kg, Start date: 06/06/16 14:23:00 CDT, Duration: 30 day, Stop date: 07/06/16 9:00:00 CDTNotes: Take with food. Adenosine 6 mg, Route: Inactive [facility] IV, ONCE, 016 Medical Dosing Center Weight 104.33, kg, Start date: 06/06/16 14:19:00 CDT, Stop date: 06/06/16 14:19:00 CDT Adenosine 6 mg, Route: Inactive [facility] [facility], [facility] Weight 104.33, kg, Start date: 06/06/16 14:17:00 CDT, Stop date: 06/06/16 14:17:00 CDT Morphine 2 mg, 1 mL, No Longer [facility] Route: IV, Active Medical Drug form: Center INJ, Q6H, Dosing Weight 104.33, kg, PRN as needed for chest pain, Start date: 06/06/16 14:00:00 CDT, Duration: 30 day, Stop date: 07/06/16 13:59:00 CDTNotes: (Same as:MORPhine Sulfate) metoprolol 25 mg, Inactive [facility] tartrate Route: PO, Medical Drug form: [place] TAB, ONCE, Dosing Weight 104.33, kg, Start date: 06/06/16 13:59:00 CDT, Stop date: 06/06/16 13:59:00 CDT vancomycin + 1.5 gm, Inactive [facility] sodium chloride Route: IVPB, [facility] Medical 0.9% INJ 250 mL ONCE, Start Center date: 06/06/16 11:12:00 CDT, Stop date: 06/06/16 11:12:00 CDTNotes: TIME CRITICAL MEDICATION (Same As: Vancocin) Infusion rate 2001 mg: infuse over 2.5 hours MEDICATION WASTE Product Size: 1000 mg Product Wasted: ___ mg Ceftazidime 1 gm, Route: Inactive [facility] IVPB, Drug 016 Medical form: Center PDR/INJ, [id number], Dosing Weight 104.33, kg, Start date: 06/06/16 11:00:00 CDT, Duration: 30 day, Stop date: 07/05/16 11:00:00 CDTNotes: (Same as: [place]) MEDICATION WASTE Product Size: 1000 mg Product Wasted: 0 mg venlafaxine 300 mg, 2 No Longer [facility] cap, Route: Active 016 Medical PO, Drug Center form: ERCAP, Daily, Dosing Weight 104.33, kg, Start date: 06/06/16 11:00:00 CDT, Duration: 30 day, Stop date: 07/06/16 9:00:00 CDT tiotropium 18 No Longer [facility] microgram, [address] [place] [id number] inhalation, Center Route: INHALATION, Drug form: CAP, RDaily, Dosing Weight 104.33, kg, Start date: 06/06/16 11:00:00 CDT, Duration: 30 day, Stop date: 07/06/16 8:00:00 CDTNotes: (Same As: Spiriva) Lopressor 50 mg, 1 No Longer [facility] tab, Route: Active 016 Medical PO, Drug Center form: TAB, Q12H, Dosing Weight 104.33, kg, Start date: 06/06/16 11:00:00 CDT, Duration: 30 day, Stop date: 07/06/16 9:00:00 CDTNotes: (Same as: Lopressor) Losartan 100 mg, 1 Inactive [facility] tab, Route: 016 Medical PO, Drug Center form: TAB, Daily, Dosing Weight 104.33, kg, Start date: 06/06/16 11:00:00 CDT, Duration: 30 day, Stop date: 07/06/16 9:00:00 CDTNotes: (Same as: Cozaar) Dulcolax Laxative 10 mg, 1 No Longer [facility] supp, Route: Active 016 [facility] ID, Drug Center form: SUPP, Daily, Dosing Weight 104.33, kg, PRN Constipation , Start date: 06/06/16 10:50:00 CDT, Duration: 30 day, Stop date: 07/06/16 10:49:00 CDTNotes: (Same As: Dulcolax, [place]-Lax) Insulin, Aspart, 10 unit, 0.1 No Longer [facility] Human mL, Route: Active 016 Medical SUB-Q, Drug Center form: SOLN, Sliding Scale, Dosing Weight 104.33, kg, PRN Blood Glucose Results, Start date: 06/06/16 9:41:00 CDT, Duration: 30 day, Stop date: 07/06/16 9:40:00 CDTNotes: Roll in palms of hands gently; Do not shake vigorously. (Same as: NovoLOG) "single patient use only" WASTE: F/P - Black; E - Municipal Trash Bin Stable for 28 days at room temperature. Expires in days from __Date Glucagon 1 mg, Route: No Longer [facility] IM, Drug Active 016 Medical form: Center PDR/INJ, PRN, Dosing Weight 104.33, kg, PRN Blood Glucose Results, Start date: 06/06/16 9:41:00 CDT, Duration: 30 day, Stop date: 07/06/16 9:40:00 CDT Dextrose 50% 25 gm, 50 No Longer [facility] Syringe mL, Route: Active 016 Medical IVP, Drug Center Form: INJ, Dosing Weight 104.33, kg, PRN, PRN Blood Glucose Results, Start date: 06/06/16 9:41:00 CDT, Duration: 30 day, Stop date: 07/06/16 9:40:00 CDT Ondansetron 4 mg, 2 mL, No Longer [facility] Route: IVP, Active 016 Medical Drug form: Center INJ, Q6H, Dosing Weight 104.33, kg, PRN Nausea & Vomiting, Start date: 06/06/16 9:39:00 CDT, Duration: 30 day, Stop date: 07/06/16 9:38:00 CDTNotes: (Same as: [place]) MEDICATION WASTE Product Size: 4 mg Product Wasted: _0__ mg venlafaxine 300 mg, PO, No Longer [facility] Daily, 0 Active 016 Medical Refill(s) Center donepezil 10 mg, PO, No Longer [facility] Bedtime, 0 Active 016 Medical Refill(s) Center clopidogrel 75 MG 75 mg=1 tab, No Longer [facility] Oral Tablet PO, Daily, 0 Active 016 Medical [Plavix] Refill(s) Center Levemir 22 unit, No Longer [facility] SUB-Q, 0 Active 016 Medical Refill(s) Center cholecalciferol 1,000 No Longer [facility] IntlUnit, 0 Active 016 Medical Refill(s) [place] Aspirin 325 mg, 0 No Longer [facility] Refill(s) Active 016 [facility] Center atorvastatin 40 mg, PO, No Longer [facility] Daily, 0 Active 016 Medical Refill(s) Center Amlodipine 10 mg, PO, No Longer [facility] Daily, 0 Active 016 Medical Refill(s) [place] tiotropium 18 No Longer [facility] microgram, Active 016 Medical INHALATION, Center Daily, 0 Refill(s) Prenavite FC oral 1 tab, PO, No Longer [facility] tablet Daily, 0 Active 016 Medical Refill(s) [place] losartan 100 mg 100 mg=1 No Longer [facility] oral tablet tab, PO, Active 016 Medical Daily, 0 Center Refill(s) Lorazepam 2 mg, PO, No Longer [facility] Q---Sa, Active 016 Medical 0 Refill(s) [place] Insulin, Aspart, 8 unit, No Longer [facility] Human SUB-Q, Active 016 Medical TID-Before [place] Meals, 0 Refill(s) Nitroglycerin 0.4 mg, SL, No Longer [facility] Q5Min, PRN Active 016 Medical as needed Center for chest pain, 0 Refill(s) lurasidone 80 mg 80 mg=1 tab, No Longer [facility] oral tablet PO, Daily, 0 Active 016 Medical Refill(s) [place] metoprolol 50 mg=1 tab, No Longer [facility] tartrate 50 mg PO, BID, # Active 016 Medical oral tablet 180 tab, 0 Center Refill(s) 12 HR ranolazine 1,000 mg=1 No Longer [facility] 1000 MG Extended tab, PO, Active 016 Medical Release Tablet BID, # 60 Center tab, 0 Refill(s) Pramipexole 0.25 mg=1 No Longer [facility] dihydrochloride tab, PO, Active 016 Medical 0.25 MG Oral Daily, 0 [place] Tablet [Mirapex] Refill(s) Geodon 40 mg, PO, No Longer [facility] Daily, 0 Active 016 Medical Refill(s) [place] Sodium Chloride 1,000 mL, Inactive [facility] 0.154 MEQ/ML 1,000 ml/hr, 016 Medical Injectable Infuse Over: [place] Solution 1 hr, Route: IV, ONCE, Priority: STAT, Dosing Weight 104.33 kg, Start date: 06/06/16 5:34:00 CDT, Duration: 1 doses or times, Stop date: 06/06/16 5:34:00 CDT Albuterol 0.833 9 mL, Route: Inactive [facility] MG/ML / NEB, Drug 016 Medical Ipratropium Form: SOLN, [place] 0.167 Dosing MG/ML Inhalant Weight Solution [DuoNeb] 104.33, kg, ONCE, STAT, Start date: 06/06/16 2:53:00 CDT, Stop date: 06/06/16 2:53:00 CDTNotes: (Same as: Duoneb) Allergies, Adverse Reactions, Alerts Substance Category Reaction Severity Reaction Status Date Comments Source type Reported Immunizations Immunization Date Given Site Status Last Updated Comments Source Results Order Name Results Value Reference Date Interpretation Comments Source Range CHEM PANEL Phosphorus 2.0 mg/dL 2.5 - 4.5 06/21 [facility] CHEM PANEL eGFR 38 06/21 Result Comment: The eGFR is calculated using the CKD-EPI formula. In most young, healthy individuals the eGFR will be >90 mL/ min/1.73m2. The eGFR declines with age. An eGFR of 60-89 may be normal in [facility] mL/min/1. /2015 some populations, particularly the elderly, for whom the CKD-EPI formula has not been extensively validated. Use of the eGFR is not recommended in the following populations: [address] Individuals with unstable creatinine concentrations, including patients and those with serious co-morbid conditions. Patients with extremes in muscle mass or diet. The data above are obtained from the National Kidney Disease Education Program (NKDEP) which additionally recommends that when the eGFR is used in patients with extremes of body mass index for purposes of drug dosing, the eGFR should be multiplied by the estimated BMI. CHEM PANEL AGAP 11.7 meq/L 10.0 - 06/21 [facility] 20.0 [facility] CHEM PANEL CO2 26 meq/L 24 - 32 06/21 [facility] CHEM PANEL Calcium Lvl 7.8 mg/dL 8.5 - 10.5 06/21 [facility] CHEM PANEL Chloride Lvl 99 meq/L 95 - 109 06/21 2015 [facility] CHEM PANEL Creatinine 1.89 mg/dL 0.50 - 06/21 [facility] Lvl 1. [facility] CHEM PANEL Potassium Lvl 3.7 meq/L 3.5 - 5.1 06/21 2015 [facility] CHEM PANEL Sodium Lvl 133 meq/L 135 - 145 06/21 2015 [facility] CHEM PANEL Glucose Lvl 125 mg/dL 70 - 99 06/21 [facility] CHEM PANEL BUN 23 mg/dL 06/21 2015 [facility] CHEM PANEL Magnesium Lvl 2.0 mg/dL 1.8 - 2.4 06/21 [facility]2015 [facility] CHEM PANEL BUN 35 mg/dL 06/[address] CHEM PANEL Creatinine 3.30 mg/dL 0.50 - 06/19 [facility] Lvl 1.40 [facility] CHEM PANEL Chloride Lvl 95 meq/L 95 - 109 06/19 2015 [facility] CHEM PANEL Potassium Lvl 4.4 meq/L 3.5 - 5.1 06/19 2015 [facility] CHEM PANEL Glucose Lvl 137 mg/dL 70 - 99 06/19 2015 [facility] CHEM PANEL Sodium Lvl 128 meq/L 135 - 145 06/[address] CHEM PANEL eGFR 20 06/19 Result Comment: The eGFR is calculated using the CKD-EPI formula. In most young, healthy individuals the eGFR will be >90 mL/ min/1.73m2. The eGFR declines with age. An eGFR of 60-89 may be normal in [facility] mL/min/1. some populations, particularly the elderly, for whom the CKD-EPI formula has not been extensively validated. Use of the eGFR is not recommended in the following populations: [address] Individuals with unstable creatinine concentrations, including patients and those with serious co-morbid conditions. Patients with extremes in muscle mass or diet. The data above are obtained from the National Kidney Disease Education Program (NKDEP) which additionally recommends that when the eGFR is used in patients with extremes of body mass index for purposes of drug dosing, the eGFR should be multiplied by the estimated BMI. CHEM PANEL CO2 21 meq/L 24 - 32 06/19 [facility] CHEM PANEL Calcium Lvl 8.2 mg/dL 8.5 - 10.5 06/19 [facility] CHEM PANEL AGAP 16.4 meq/L 10.0 - 06/19 20.0 [facility] HEMATOLOGY MCH 29.1 pg 27.0 - 06/19 31.0 [facility] HEMATOLOGY MCV 86.5 fL 80.0 - 06/19 [place] 94.0 [facility] HEMATOLOGY Hct 22.1 % 42.0 - 06/19 [place] 54.0 [facility] HEMATOLOGY Hgb 7.4 g/dL 14.0 - 06/19 18.0 [facility] HEMATOLOGY RBC 2.56 M/CMM 4.70 - 06/19 6.10 [facility] HEMATOLOGY WBC 22.6 K/CMM 3.7 - 10.4 06/19 [facility] HEMATOLOGY RDW 14.5 % 11.5 - 06/19 14. [facility] HEMATOLOGY MCHC 33.7 g/dL 32.0 - 06/19 [place] 36.0 [facility] HEMATOLOGY Platelet 387 K/CMM 133 - 450 06/19 [facility] HEMATOLOGY MPV 8.3 fL 7.4 - 10.4 06/19 [facility] HEMATOLOGY Lymphocytes 7.8 % 20.0 - 06/19 40.0 [facility] HEMATOLOGY Segs 84.0 % 45.0 - 06/19 75.0 [facility] HEMATOLOGY Basophils # 0.1 K/CMM 0.0 - 0.2 06/19 [facility] HEMATOLOGY Monocytes # 1.5 K/CMM 0.0 - 0.8 06/19 [facility] HEMATOLOGY Lymphocytes # 1.8 K/CMM 1.0 - 5.5 06/19 [facility] HEMATOLOGY Eosinophils # 0.2 K/CMM 0.0 - 0.5 06/19 [facility] HEMATOLOGY Monocytes 6.8 % 2.0 - 12.0 06/19 [facility] HEMATOLOGY Segs-Bands # 18.9 K/CMM 1.5 - 8.1 06/19 [facility] HEMATOLOGY Basophils 0.4 % 0.0 - 1.0 06/19 [facility] HEMATOLOGY Eosinophils 1.0 % 0.0 - 4.0 06/19 [facility] ELECTROLYTE AGAP 11.8 meq/L 10.0 - 06/17 [facility] 20.0 [facility] ELECTROLYTE eGFR 33 06/17 Result Comment: The eGFR is calculated using the CKD-EPI formula. In most young, healthy individuals the eGFR will be >90 mL/ min/1.73m2. The eGFR declines with age. An eGFR of 60-89 may be normal in [facility] mL/min/1. some populations, particularly the elderly, for whom the CKD-EPI formula has not been extensively validated. Use of the eGFR is not recommended in the following populations: [address] Individuals with unstable creatinine concentrations, including patients and those with serious co-morbid conditions. Patients with extremes in muscle mass or diet. The data above are obtained from the National Kidney Disease Education Program (NKDEP) which additionally recommends that when the eGFR is used in patients with extremes of body mass index for purposes of drug dosing, the eGFR should be multiplied by the estimated BMI. ELECTROLYTE BUN 30 mg/dL 7 - 22 06/17 [facility] ELECTROLYTE Glucose Lvl 85 mg/dL 70 - 99 06/17 [facility] ELECTROLYTE Chloride Lvl 100 meq/L 95 - 109 06/17 [facility] ELECTROLYTE Potassium Lvl 3.8 meq/L 3.5 - 5.1 06/17 [facility] ELECTROLYTE CO2 28 meq/L 24 - 32 06/17 [facility] ELECTROLYTE Creatinine 2.17 mg/dL 0.50 - 06/17 [facility] Lvl 1.40 [facility] ELECTROLYTE Sodium Lvl 136 meq/L 135 - 145 06/17 [facility] ELECTROLYTE Calcium Lvl 8.3 mg/dL 8.5 - 10.5 06/17 [facility] 2015 [facility] HEMATOLOGY RBC 2.61 M/CMM 4.70 - 06/17 [facility] 6.10 [facility] HEMATOLOGY MCHC 33.7 g/dL 32.0 - 06/17 [facility] 36.0 [facility] HEMATOLOGY RDW 14.4 % 11.5 - 06/17 14.5 [facility] HEMATOLOGY Platelet 331 K/CMM 133 - 450 06/17 [facility] HEMATOLOGY MPV 8.7 fL 7.4 - 10.4 06/17 [facility] HEMATOLOGY Hgb 7.5 g/dL 14.0 - 06/17 18.0 [facility] HEMATOLOGY Hct 22.2 % 42.0 - 06/17 [facility] 54.0 [facility] HEMATOLOGY MCV 85.3 fL 80.0 - 06/17 [facility] 94.0 [facility] HEMATOLOGY MCH 28.8 pg 27.0 - 06/17 [facility] 31.0 [facility] HEMATOLOGY WBC 19.1 K/CMM 3.7 - 10.4 06/17 [facility] HEMATOLOGY Eosinophils # 0.1 K/CMM 0.0 - 0.5 06/17 [facility] HEMATOLOGY Monocytes # 1.6 K/CMM 0.0 - 0.8 06/17 [facility] HEMATOLOGY Lymphocytes # 1.6 K/CMM 1.0 - 5.5 06/17 [facility] HEMATOLOGY Segs-Bands # 15.8 K/CMM 1.5 - 8.1 06/17 [facility] HEMATOLOGY Basophils 0.4 % 0.0 - 1.0 06/17 [facility] HEMATOLOGY Basophils # 0.1 K/CMM 0.0 - 0.2 06/17 [facility] HEMATOLOGY Segs 82.3 % 45.0 - 06/17 75.0 [facility] HEMATOLOGY Eosinophils 0.5 % 0.0 - 4.0 06/17 [facility] HEMATOLOGY Monocytes 8.6 % 2.0 - 12.0 06/17 [facility] HEMATOLOGY Lymphocytes 8.2 % 20.0 - 06/17 40.0 [facility] BLOOD BANK RBC product Product available 06/[address] [facility] (06/16/16 7:16 AM) [place] HEMATOLOGY Polychrom slight 06/16 [facility] HEMATOLOGY Plt Morph Normal 06/16 [facility] (06/16/16 4:18 AM) Center HEMATOLOGY Atypical 0.0 % <=0.0 % 06/16 [facility] Lymph [facility] HEMATOLOGY Monocytes 5.0 % 2.0 - 12.0 06/16 [facility] HEMATOLOGY Metamyelocyte 1.0 % 0.0 - 1.0 06/16 s [facility] HEMATOLOGY Lymphocytes 5.0 % 20.0 - 06/16 [place] 40.0 /2015 [facility] HEMATOLOGY Monocytes # 1.5 K/CMM 0.0 - 0.8 06/16 [facility] HEMATOLOGY Segs 87.0 % 45.0 - 06/16 [place] 75.0 /2015 [facility] HEMATOLOGY Bands 2.0 % 0.0 - 11.0 06/16 [facility] HEMATOLOGY Lymphocytes # 1.5 K/CMM 1.0 - 5.5 06/16 [facility] HEMATOLOGY Segs-Bands # 26.3 K/CMM 1.5 - 8.1 06/16 [facility] HEMATOLOGY Platelet 338 K/CMM 133 - 450 06/16 [facility] HEMATOLOGY MCHC 32.6 g/dL 32.0 - 06/16 [place] 36.0 [facility] HEMATOLOGY MPV 8.4 fL 7.4 - 10.4 06/16 [facility] HEMATOLOGY RDW 14.4 % 11.5 - 06/16 14.5 [facility] HEMATOLOGY MCV 84.7 fL 80.0 - 06/16 [facility] 94.0 [facility] HEMATOLOGY Hct 20.7 % 42.0 - 06/16 54.0 [facility] HEMATOLOGY Hgb 6.8 g/dL 14.0 - 06/16 Result [facility] 18. Comment: [facility] Result(s) called to tristan dubon at 06/16/2016 05:01_ by_aa. Read back OK. HEMATOLOGY RBC 2.44 M/CMM 4.70 - 06/16 [facility] 6.10 [facility] HEMATOLOGY MCH 27.6 pg 27.0 - 06/16 [facility] 31.0 [facility] HEMATOLOGY WBC 29.5 K/CMM 3.7 - 10.4 06/16 [facility] CVC insert CVC insert STUDY: VIR CV Catheter Placement Tunneled 06/15 - [facility] tunnel tunnel w/-w/o /2015 - Medical w/-w/o port/pump age This report was dictated by a Refinery Operator Coking /Fellow. I have personally reviewed the images as Center port/pump 5+ yrs VR well as the Resident's interpretation and agree with the findings. age 5+ yrs DATE: 06/15/2016 12:36 PM CDT Read by: Aneesh Nails MD Resident: Aneesh Nails MD VR Dictated Date/time: 06/15/16 16:07 Electronically Signed by: Mychal Bravo MD 06/15/16 16:20 FINAL REPORT INDICATION(S): venous access. 55 year old who needs access for hemodialysis. PROCEDURE(S) PERFORMED: 1. Successful ultrasound and fluoroscopic guided placement of a16 [place] 23 cm to tip hemodialysis catheter into the right internal jugular vein. 2. Moderate sedation CODING AUDITOR: Vincent Gamino SENIOR BENEFITS MANAGER(S): Dr. Bravo CONSENT: Written consent obtained after discussing the indications, procedure, potential benefits, alternatives and risks SEDATION/PAIN CONTROL: Moderate conscious sedation was administered by a dedicated nurse under my supervision. There was continuous monitoring of BP, pulse and oxygen saturation. Sedation time 20 minutes. Lidocaine 1% used as local anesthetic. PROCEDURE IN DETAIL:The patient was brought into interventional suite and placed supine. Timeout was performed. Preliminary ultrasound of the right neck confirmed a patent and compressible right interna l jugular vein. The right neck and right anterior chest was thoroughly prepped using the usual sterile technique. Lidocaine 1% used as local anesthetic. Using real-time ultrasound guidance , a patent and compressible right internal jugular vein was punctured using a micropuncture set, US images of the needle in the vein were saved to PACS and the patient's medical record. The system was upsized in the usual manner to accept a note 0.035 wire. Attention brought to the right infraclavicular area. An appropriate entry point for tunnel was selected and lidocaine 1% generously injected. The appropriate length catheter was tunneled through the tu st wall to the venotomy access point. The venotomy site was serially dilated to accept a 17F peel-away sheath. The dialysis catheter was successfully fed over the peel-away sheath into the right interna l jugular vein. The catheter tip lies just within the right atrium. The catheter was tethered to the skin using 2-0 Prolene and the venotomy site sutured using Vicryl. A sterile antibiotic loaded dressing was applied to the chest wall tunnel entry area and the venotomy dressed using Primapore. Both ports flushed well and were locked with heparin. The catheter is ready for immediate use. FINDINGS: 1. Widely patent and compressible right internal jugular vein. 2. Successful placement of 16 [place] 23 cm right internal jugular vein hemodialysis catheter. COMPLICATIONS: None ESTIMATED BLOOD LOSS: None FLUOROSCOPIC TIME: 0.3 minutes RADIATION DOSE: 6 mGy CONTRAST VOLUME: None IMPRESSION: Successful ultrasound and fluoroscopic guided placement of a right internal jugular vein 16 [place] tunneled 23 cm cuff to tip hemodialysis catheter. The line is ready for immediate use. PLAN/FOLLOW UP: None Dr. Bravo, IR Attending, was present for the procedure. BLOOD BANK RBC product Product available 06/[address] [facility] (06/15/16 12:25 AM) [place] IMMUNOLOGY H pylori IgG 0.7 06/15 [facility] unit/mL [facility] CHEM PANEL Lactic Acid 1.7 mMol/L 0.5 - 2.2 06/14 [facility] Lvl [facility] CHEM PANEL Procalcitonin 1.04 ng/mL 0.00 - 06/14 [facility] CHEM PANEL Phosphorus 4.6 mg/dL 2.5 - 4.5 06/14 [facility] CHEM PANEL Procalcitonin 1.04 ng/mL 0.00 - 06/14 [facility]. [facility] HEMATOLOGY Metamyelocyte 2.0 % 0.0 - 1.0 06/14 [facility] s [facility] HEMATOLOGY Bands 1.0 % 0.0 - 11.0 06/14 [facility] HEMATOLOGY Tot Cell Ct 200 06/14 [facility] HEMATOLOGY Plt Morph Normal 06/14 [facility] (06/14/16 2:21 AM) [place] HEMATOLOGY RBC Morph Normal 06/14 [facility] (06/14/16 2:21 AM) [place] HEMATOLOGY Atypical 0.0 % <=0.0 % 06/14 [facility] Lymphs [facility] BLOOD BANK ABO/Rh O POS 06/14 [facility] BLOOD BANK Antibody Scrn Negative 06/[address] [facility] (06/13/16 10:25 PM) [place] BODY FLUIDS Sebastián Occult Positive Negative 06/14 [facility] Bld Medical *ABN* Center (06/13/16 10:22 PM) HEMATOLOGY Basophils 0.1 % 0.0 - 1.0 06/14 [facility] HEMATOLOGY PTT 40.7 s 22.9 - 06/14 [facility] 35.8 /2015 [facility] HEMATOLOGY INR 1.13 0.85 - 06/14 [facility] 1.17 [facility] HEMATOLOGY PT 14.8 s 12.0 - 06/14 [facility] 14.7 /2015 [facility] Abdomen AP Abdomen AP DX EXAM: XR ABDOMEN 1 VIEW 06/13 - [facility] DX /2015 - [facility] This report was dictated by a Refinery Operator Coking/Fellow. I have personally reviewed the images as Center well as the Resident's interpretation and agree with the findings. DATE: 06/13/2016 1400 CDT Read by: Malena Galeana MD Resident: Malena Galeana MD Dictated Date/time: 06/13/16 14:56 Electronically Signed by: Guanakito Bledsoe 06/13/16 16:00 FINAL REPORT INDICATION: Abdominal fullness ADDITIONAL INFORMATION: None. COMPARISON: None. TECHNIQUE: AP view of the abdomen. FINDINGS: Lines and tubes: None. Lower thorax: Unremarkable where visualized. Bowel: Stomach is gas-distended. No dilated loops of large or small bowel. Moderate right colonic stool burden. Solid organs: No abnormal mass or organomegaly seen. Calcifications: No abnormal calcifications found. Bones: Normal. IMPRESSION: 1. Gas distended stomach. 2. Moderate right colonic stool burden without obstruction. CHEM PANEL Albumin Lvl 2.0 g/dL 3.5 - 5.0 06/13 [facility] CHEM PANEL Total Protein 6.4 g/dL 6.4 - 8.4 06/13 [facility] CHEM PANEL A/G Ratio 0.5 0.7 - 1.6 06/13 [facility] CHEM PANEL Globulin 4.4 g/dL 2.7 - 4.2 06/13 [facility]2015 [facility] CHEM PANEL Alk Phos 319 unit/L 39 - 136 06/13 [facility]2015 [facility] CHEM PANEL B/C Ratio 16 6 - 25 06/13 [facility]2015 [facility] CHEM PANEL AST 18 unit/L 0 - 37 06/13 [facility]2015 [facility] CHEM PANEL ALT 26 unit/L 0 - 65 06/13 [facility] [address] [place] [address] CHEM PANEL Bili Total 0.4 mg/dL 0.2 - 1.3 06/[address] HEMATOLOGY Eosinophils 0.4 % 0.0 - 4.0 06/[address] HEMATOLOGY Plt Morph Normal 06/[address] [place] [address] (06/13/16 12:38 AM) [place] HEMATOLOGY Eosinophils # 0.1 K/CMM 0.0 - 0.5 06/[address] CVC remove CVC remove STUDY: Tunneled hemodialysis catheter removal 06/12 - [facility] tunnel tunnel w/-w/o /2015 - [facility] w/-w/o port/pump VR Center port/pump VR DATE: 06/12/2016 3:49 PM CDT Read by: Mychal Bravo MD Dictated Date/time: 06/13/16 08:23 Electronically Signed by: Mychal Bravo MD 06/13/16 08:24 FINAL REPORT INDICATION(S): Infection. PROCEDURE(S): Catheter and the entry site was sterilely prepped and draped. 1% lidocaine was infiltrated for local anesthesia. Using blunt dissection the cuff was dissected free and the catheter came e asily out. The entry site was compressed for short while and hemostasis obtained. CODING AUDITOR: Lawrence SENIOR BENEFITS MANAGER(S): CONSENT: Written consent obtained after discussing the indications, procedure, potential benefits, alternatives and risks SEDATION/PAIN CONTROL: 1% Lidocaine used as local anesthetic.. Sedation time minutes. COMPLICATIONS: None ESTIMATED BLOOD LOSS: Minimal FLUOROSCOPIC TIME: minutes RADIATION DOSE: mGy CONTRAST VOLUME: mL FINDINGS: PermCath removed right IJ IMPRESSION: Same PLAN/FOLLOW UP: Dr. Bravo, IR Attending, was present for the procedure. CHEM PANEL B/C Ratio 18 6 - 25 06/[address] CHEM PANEL Globulin 4.9 g/dL 2.7 - 4.2 06/[address] CHEM PANEL A/G Ratio 0.4 0.7 - 1.6 06/[address] CHEM PANEL Bili Total 0.4 mg/dL 0.2 - 1.3 06/[address] CHEM PANEL AST 18 unit/L 0 - 37 06/[address] CHEM PANEL Alk Phos 401 unit/L 39 - 136 06/12 [facility] CHEM PANEL Total Protein 7.0 g/dL 6.4 - 8.4 06/12 [facility] CHEM PANEL ALT 24 unit/L 0 - 65 06/12 [facility] CHEM PANEL Albumin Lvl 2.1 g/dL 3.5 - 5.0 06/12 [facility] CHEM PANEL Lactic Acid 0.8 mMol/L 0.5 - 2.2 06/10 [facility] CHEM PANEL Globulin 4.6 g/dL 2.7 - 4.2 06/10 [facility] CHEM PANEL B/C Ratio 12 6 - 25 06/10 2015 [facility] CHEM PANEL A/G Ratio 0.4 0.7 - 1.6 06/10 [facility]2015 [facility] CHEM PANEL Total Protein 6.5 g/dL 6.4 - 8.4 06/10 [facility] CHEM PANEL Albumin Lvl 1.9 g/dL 3.5 - 5.0 06/10 [facility] CHEM PANEL ALT 22 unit/L 0 - 65 06/10 [facility] CHEM PANEL AST 22 unit/L 0 - 37 06/10 [facility] CHEM PANEL Alk Phos 352 unit/L 39 - 136 06/10 2015 [facility] CHEM PANEL Bili Total 0.4 mg/dL 0.2 - 1.3 06/10 [facility] CHEM PANEL Lactic Acid 0.9 mMol/L 0.5 - 2.2 06/08 [facility] CARDIAC Troponin-I 0.07 ng/mL 0.00 - 06/07 [place] ENZYMES 0.40 [facility] CHEM PANEL Phosphorus 3.7 mg/dL 2.5 - 4.5 06/07 [facility] CHEM PANEL Magnesium Lvl 2.1 mg/dL 1.8 - 2.4 06/07 [facility] HEMATOLOGY INR 1.32 0.85 - 06/07 [place] 1.17 [facility] HEMATOLOGY PTT 49.3 s 22.9 - 06/07 [place] 35.8 /2015 [facility] HEMATOLOGY PT 16.7 s 12.0 - 06/07 [place] 14.7 [facility] BACTERIAL - MRSA by PCR Positive 1 06/07 Result [facility] SEROLOGY Comment: Medical *ABN* "Significant Center Findings (06/07/16 1:46 AM) called to Anca Morales_at 06/07/2016 13:25 by bf. Read Back OK." URINE AND UA Sq Epi RARE 06/07 [facility] STOOL [facility] URINE AND UA WBC 8 /HPF 0 - 5 06/07 [facility] STOOL [facility] URINE AND UA RBC 3 /HPF 0 - 2 06/07 [facility] STOOL [facility] URINE AND UA Bacteria Occasional None Seen 06/07 [facility] STOOL /HPF /HPF /2015 [facility] URINE AND UA Hyal Cast 3 /LPF 0 - 2 06/07 [facility] URINE AND UA Mucus Few /LPF None Seen 06/07 [facility] /LPF /2015 [facility] URINE AND UA 0.2 EU/dL 0.1 - 1.0 06/07 [facility] Urobilinogen /2015 [facility] URINE AND UA Nitrite Negative Negative 06/07 [facility] (06/06/16 11:32 PM) [place] URINE AND UA Leuk Est Negative Negative 06/07 [facility] STOOL [facility] (06/06/16 11:32 PM) [place] URINE AND UA Blood Trace Negative 06/07 [facility] Medical *ABN* [place] (06/06/16 11:32 PM) URINE AND UA Bili Negative Negative 06/07 [facility] Medical *NA* [place] (06/06/16 11:32 PM) URINE AND UA pH 7.0 5.0 - 8.0 06/07 [facility] URINE AND UA Protein 100 mg/dL Negative 06/07 [facility] mg/dL [facility] URINE AND UA Turbidity Clear Clear 06/07 [facility] [address] (06/06/16 11:32 PM) [place] URINE AND UA Spec Grav 1.020 <=1.030 06/07 [facility] URINE AND UA Ketones Negative Negative 06/07 [facility] Medical *NA* Center (06/06/16 11:32 PM) URINE AND UA Glucose Negative Negative 06/07 [facility] (06/06/16 11:32 PM) [place] URINE AND UA Color Yellow Yellow 06/07 [facility] Medical *NA* Center (06/06/16 11:32 PM) CARDIAC Troponin-I 0.12 ng/mL 0.00 - 06/07 [facility] ENZYMES 0.40 [facility] IMMUNOLOGY Hep Bs Ab 20.5 <=7.4 06/06 [facility] mIU/mL mIU/mL [facility] IMMUNOLOGY Hep B Core Ab Negative Negative [facility] [place] (06/06/16 3:44 PM) IMMUNOLOGY Hep C Ab Negative 06/06 [facility] [place] (06/06/16 3:44 PM) IMMUNOLOGY Hep Bs Ag Negative Negative 06/06 [facility] (06/06/16 3:44 PM) CARDIAC Troponin-I null 0.00 - 06/06 [facility] ENZYMES 0.40 [facility] CHEM PANEL Magnesium Lvl 1.7 mg/dL 1.8 - 2.4 06/06 [facility] HEMATOLOGY Bands 0.0 % 0.0 - 11.0 06/06 [facility] HEMATOLOGY Atypical 0.0 % <=0.0 % 06/06 [facility] Lymphs [facility] PARATHYROID Ca Ion WB 1.18 1.05 - 06/06 [facility] PROFILE mMol/L 1. [facility] PARATHYROID Ca Norm WB 1.15 1.05 - 06/06 [facility] PROFILE mMol/L 1. [facility] CARDIAC Troponin-T 0.050 0.000 - 06/06 [facility] ENZYMES ng/mL 0.100 [facility] CARDIAC Troponin-T 0.036 0.000 - 06/06 [facility] ENZYMES ng/mL 0.100 [facility] CARDIAC Total CK 43 unit/L 12 - 191 06/06 [facility] HEMATOLOGY Sed Rate >100 mm/hr 0 - 15 06/06 [facility] HEMATOLOGY Estimated % 1.2 % 0.0 - 7.5 06/06 [facility] Lysis [facility] HEMATOLOGY ACT (TEG) 128 s 86 - 118 06/06 [facility] HEMATOLOGY Angle Rapid 80 degrees 64 - 80 06/06 [facility]2015 [facility] HEMATOLOGY Max Amplitude 78 mm 52 - 71 06/06 [facility] Rapid [facility] HEMATOLOGY G-value Rapid 17.6 K 5.0 - 11.6 06/06 [facility] d/sc [facility] HEMATOLOGY [place] 0.7 min 06/06 [facility] Rapid /2015 [facility] HEMATOLOGY R-time Rapid 0.8 min 0.4 - 0.7 06/06 [facility] HEMATOLOGY K-time Rapid 0.8 min 0.6 - 2.3 06/06 [facility] HEMATOLOGY PT 14.6 s 12.0 - 06/06 [facility] 14.7 /2015 [facility] HEMATOLOGY PTT 49.0 s 22.9 - 06/06 [place] 35.8 /2015 [facility] HEMATOLOGY INR 1.11 0.85 - 06/06 [place] 1.17 [facility] HEMATOLOGY RBC Morph Normal 06/06 [facility] (06/06/16 3:15 AM) [place] HEMATOLOGY Tot Cell Ct 100 06/06 [facility] HEMATOLOGY Basophils # 0.1 K/CMM 0.0 - 0.2 06/06 [facility] IMMUNOLOGY C-REACTIVE 251.0 mg/L <=2.9 mg/L 06/06 [facility] PROTEIN [facility] BLOOD BANK Antibody Scrn Negative 06/06 [facility] RESULTS [facility] (06/06/16 3:00 AM) [place] BLOOD BANK ABO/Rh O POS 06/06 [facility] RESULTS [facility] Spine Spine lumbar EXAM: MRI LUMBAR SPINE WITHOUT CONTRAST 06/06 - [facility] lumbar wo wo contrast - [facility] contrast MRI Center MRI DATE: 06/06/2016 04:27 AM CDT Read by: Kathrin Rooney Dictated Date/time: 06/06/16 07:41 Electronically Signed by: Kathrin Rooney 06/06/16 07:50 FINAL REPORT INDICATION: Numbness COMPARISON: CT of the abdomen dated 06/05/2016 TECHNIQUE: Multiplanar, multisequence noncontrast MR imaging of the lumbar spine. IV contrast: None. FINDINGS: Grade 1 anterolisthesis of L5 on S1 is demonstrated. Edematous changes in the post changes in the posterior half of the L4 vertebral body, without bone destruction are identified. At L5-S1 there is edema in both vertebral bodies, destructive changes in the endplates, expansion of the disc space, and anterior and posterior a soft tissue mass. Extra-axial collection in the left lat eral recesses at the level of L5 is identified, causing right lateral displacement and constriction of the thecal sac. The soft tissue mass extends to the L5-S1 neural foramina bilaterally. Hypertrophy of the facet joints at L4-L5 and L5-S1, with increased synovial fluid at L5-S1 is demonstrated. There are however no edematous changes of the articular facets. Edematous changes of the psoas muscles, without collection within them are demonstrated. The sacroiliac joints are normal. Interval note is made of a few renal cysts on the right side. IMPRESSION: 1. 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 There is a phlegmonous collection in the left lateral recess at the level of L5, causing constriction of t he thecal sac and crowding of the roots of the cauda equina. Neural foraminal narrowing due to phlegmonous changes is also noted. 2. Edematous changes in the posterior aspect of the L4 vertebral body, which can represent hyperemia and/or extension of the infection. 3. Hypertrophy of the facet joints at L4-L5 and L5-S1, without signs of infection in these joints. Abdomen/Pel Abdomen/Pelvi EXAM: CT ABDOMEN AND PELVIS WITHOUT CONTRAST [facility] wo IV s wo IV /2015 - Medical contrast CT contrast CT Center DATE: 06/06/2016 3:02 AM CDT Read by: Guanakito Bledsoe Dictated Date/time: 06/06/16 08:43 Electronically Signed by: Guanakito Bledsoe 06/06/16 08:51 FINAL REPORT INDICATION: Fever ADDITIONAL INFORMATION: None. COMPARISON: Outside CT dated 06/05/2016, lumbar spine magnetic resonance imaging dated 06/06/2016 TECHNIQUE: Volumetric CT acquisition of the abdomen and pelvis without the intravenous administration contrast. Axial, coronal and sagittal reconstructions. IV contrast: None. Oral contrast: None. DLP: 783 mGy*cm FINDINGS: Lines and tubes: None. Lower thorax: Minimal bibasal subsegmental atelectasis seen. No pleural effusions seen. No pericardial effusion seen. There is small hiatal hernia. Distal esophagus is fluid-filled and prominent. Liver: Normal. No obvious focal hepatic lesions given for the noncontrast technique. Biliary tree: No intra- or extrahepatic biliary ductal dilation. Gallbladder: Gallbladder is unremarkable. Pancreas: Normal. No pancreatic ductal dilation. No obvious focal lesions. Spleen: Normal. No enlargement. No focal lesions. Adrenals: Nonspecific bilateral adrenal thickening seen. Kidneys and ureters: Both kidneys are small and atrophic with cortical thinning and perinephric fat stranding seen. No hydronephrosis. No nephrolithiasis. No focal hypodense lesions. Urinary bladder: Urinary bladder is well distended and is grossly unremarkable. Prostate and seminal vesicles: Calcifications seen within the transition zone of prostate is not enlarged. Both seminal vesicles are unremarkable. Stomach: Stomach is relatively decompressed given for the hiatal hernia. Duodenum: Duodenum is unremarkable without wall thickening. No duodenal diverticula seen. Small bowel: No small bowel dilation. No small bowel wall thickening. Terminal ileum is visualized and is unremarkable. Appendix: Normal appendix. Colon: Small stool burden seen in the colon which is otherwise unremarkable. Peritoneum: No ascites or free air. No fluid collections. Lymph nodes: No enlarged retroperitoneal or pelvic or mesenteric lymph nodes by CT size criteria. Abdominal aorta: Abdominal aorta is normal in caliber without aneurysmal dilation. Diffuse atherosclerotic calcifications seen. Iliac arteries: Iliac arteries are normal in caliber without dilation. IVC and iliac veins: Unremarkable noncontrast appearance of IVC and iliac veins. Bones: There is endplate destruction and erosion at L5-S1 level with soft tissue and surrounding fat stranding consistent with infective spondylodiscitis , this is better evaluated on the magnetic resona nce imaging from the same day. There is also grade 1-2 spondylolisthesis of L5 over S1 with by lateral chronic pars defects at L5. Abdominal wall: No obvious ventral hernias. Soft tissues: No obvious focal masses or fluid collections. IMPRESSION: 1. Findings suggestive of L5-S1 spondylodiscitis better evaluated on the lumbar spine magnetic resonance imaging from the same day. 2. Small atrophic kidneys bilaterally with perinephric fat stranding consistent with chronic medical renal disease. 3. Small hiatal hernia and fluid-filled distal esophagus, likely related to gastroesophageal reflux. Chest 1view Chest 1view EXAM: Chest 1view DX 06/06 - [facility] DX DX /2015 - [facility] DATE: 06/06/2016 0318 hours CDT Read by: Christian Eden MD Dictated Date/time: 06/06/16 04:10 Electronically Signed by: Christian Eden MD 06/06/16 04:11 FINAL REPORT INDICATION: Crackles ADDITIONAL HISTORY: None. COMPARISON: Chest 1 view 06/05/2016 at 2136 hours. TECHNIQUE: Portable AP semierect chest with a total of 1 image(s). FINDINGS: Lines, tubes, devices: Again noted is a double-lumen right IJ central venous catheter extending to the lower SVC region. Lungs: The lungs are normally inflated without consolidation. Pleura: There is no pleural effusion or pneumothorax identified given the technique. Heart and mediastinum: The heart size is normal for technique. The pulmonary vasculature is normal. The mediastinal contours are normal. Bones: No acute bony abnormality is identified. Soft Tissue: The soft tissues are unremarkable. IMPRESSION: 1. No acute cardiopulmonary abnormality. Vital Signs Vital Sign Value Date Comments Source Heart Rate 104 06/21/2016 [facility] Respitory Rate 20 06/21/2016 [facility] Systolic (mm Hg) 160 06/21/2016 [facility] Diastolic (mm Hg) 70 06/21/2016 [facility] Temperature Oral (F) 97.7 F 06/21/2016 [facility] Respitory Rate 16 06/21/2016 [facility] Temperature Oral (F) 96.5 F 06/21/2016 [facility] Systolic (mm Hg) 143 06/21/2016 [facility] Diastolic (mm Hg) 71 06/21/2016 [facility] Respitory Rate 16 06/21/2016 [facility] Heart Rate 94 06/21/2016 [facility] Temperature Oral (F) 96.9 F 06/21/2016 [facility] Heart Rate 87 06/21/2016 [facility] Systolic (mm Hg) 145 06/21/2016 [facility] Diastolic (mm Hg) 69 06/21/2016 [facility] Height 170.18 cm 06/06/2016 [facility] Weight 104.33 06/06/2016 [facility] Weight 104.33 06/06/2016 [facility] Encounters Location Location Encounter Encounter Reason Attending ADM DC Status Source Details Type Number For Provider Date Date [facility] [id number] Pin Coyle 06/06 06/21 [facility]2015 [facility] Procedures Procedure Code Date Perfomer Comments Source
--- OUTSIDE RECORDS SUMMARY | 2018-08-01 14:37 | XMS REPORT ---
:1960 [facility] Address [address] [place] [address] Care Team Providers Name Role Phone KENJUAN [...] Reference Range Comments METHYLMALONIC ACID, SERUM (test ehfn=693796) 603 nmol/L 0-378 PERFORMED AT: [facility] [id number] ANTIQUE JEWELRY REPAIRER: Donnie Youssef MD PHONE: [phone], [id number] 06:50:00To start 15mins after 1st cultureSpecimen: BloodCollected: 2016 01:33 Status: Final Last Updated: 06/21/2017 06:49 (1) To start 15mins after 1st culture Culture Result (Final) (Final) No Growth After 5 DaysCULTURE, [id number] 06:50:00Specimen: BloodCollected: 06/16/2017 01: 20 Status: Final Last Updated: 06/21/2017 06:49 Culture Result (Final) ( Final) No Growth After 5 [id number] 09:05:00 Test Item Value Reference Range Comments [...] mL/min/1.73m\\S\\2 EGFR if Non- 17 Estimated Glomerular [place] (test mL/min/1.73m\\S\\2 Filtration Rate (eGFR) code=EGFRNA) Reference [...] of chronic kidney failure. CBC WITH AUTO [id number] 08:50:00 Test Item Value Reference Range Comments [...] code=IG%) 0.7 % 0.0-0.4 CBC WITH AUTO [id number] 01:49:00 Test Item Value Reference Range Comments [...] code=IG%) 0.9 % 0.0-0.4 CBC WITH AUTO [id number] 20:08:00 Test Item Value Reference Range Comments [...] code=IG%) 0.7 % 0.0-0.4 CBC WITH AUTO [id number] 13:58:00 Test Item Value Reference Range Comments [...] 1.0-3.0 IG% (test code=IG%) 0.7 % 0.0-0.4 [id number] 09:14:00 Test Item Value Reference Range Comments [...] mL/min/1.73m\\S\\2 EGFR if Non- 16 Estimated Glomerular [place] (test mL/min/1.73m\\S\\2 Filtration Rate (eGFR) code=EGFRNA) Reference [...] of chronic kidney failure. CBC WITH AUTO [id number] 09:05:00 Test Item Value Reference Range Comments [...] code=IG%) 0.7 % 0.0-0.4 CBC WITH AUTO [id number] 02:17:00 Test Item Value Reference Range Comments [...] code=IG%) 0.7 % 0.0-0.4 CBC WITH AUTO [id number] 20:02:00 Test Item Value Reference Range Comments [...] code=IG%) 0.8 % 0.0-0.4 CBC WITH AUTO [id number] 14:17:00 Test Item Value Reference Range Comments [...] 1.0-3.0 IG% (test code=IG%) 0.9 % 0.0-0.4 [id number] 08:47:00 Test Item Value Reference Range Comments Magnesium (test code=MG) 1.9 mg/dl 1.6-2.3 [id number] 08:47:00 Test Item Value Reference Range Comments [...] mL/min/1.73m\\S\\2 EGFR if Non- 17 Estimated Glomerular [place] (test mL/min/1.73m\\S\\2 Filtration Rate (eGFR) code=EGFRNA) Reference [...] of chronic kidney failure. CBC WITH AUTO [id number] 08:22:00 Test Item Value Reference Range Comments [...] code=IG%) 0.8 % 0.0-0.4 CBC WITH AUTO [id number] 03:42:00 Test Item Value Reference Range Comments [...] on ############### was changed to 1 by [id number] on 06/17/2017 03:42 Neutrophils (test 68 % 42-75 The value no value code=NEUTR) originally released by on ############### was changed to 68 by [id number] on 06/17/2017 03:42 Lymphocytes (test 16 % 13-42 The value no value code=LYMPH) originally released by on ############### was changed to 16 by [id number] on 06/17/2017 03:42 Monocytes (test 11 % 4-14 The value no value code=MONOS) originally released by on ############### was changed to 11 by [id number] on 06/17/2017 03:42 Eosinophils (test 3 % 1-3 The value no value code=EOS) originally released by on ############### was changed to 3 by [id number] on 06/17/2017 03:42 Basophils (test 1 % 0-1 The value no value code=BASO) originally released by on ############### was changed to 1 by [id number] on 06/17/2017 03:42 RBC Morphology (test Anisocytosis The value no value code=RBCMOR) Hypochromic originally released by on ############### was changed to Anisocytosis Hypochromic by [id number] on 06/17/2017 03:42 Platelet Morphology Giant platelets The value no value (test code=PLTMORPH) originally released by on ############### was changed to Giant platelets by [id number] on 06/17/2017 03:42 CBC WITH AUTO [id number] 19:54:00 Test Item Value Reference Range Comments [...] code=IG%) 0.8 % 0.0-0.4 CBC WITH AUTO [id number] 14:30:00 Test Item Value Reference Range Comments [...] code=IG%) 1.0 % 0.0-0.4 CBC WITH AUTO [id number] 07:35:00 Test Item Value Reference Range Comments [...] code=IG%) 1.2 % 0.0-0.4 HEP B SURFACE [id number] 07:14:00 Test Item Value Reference Range Comments [...] code=HBSAG) Negative (qualifier Negative value) TYPE & [id number] 04:15:00 Test Item Value Reference Range Comments ABO Blood Type (test code=ABO) O Rh (test code=RH) Positive Antibody Screen (test code=ABSCR) Negative Negative ARMBAND# (test code=ARMBAND) [id number] PRO-BNP(B-Type Natriuretic Peptide)2017-06-16 03:42:00 Test Item Value Reference Range Comments Pro-BNP(B-Peptide) 40054 pg/ml 0-125 THE METHODOLOGY FOR DETECTION OF [...] TIBC (test code=TIBC) 161 ug/dl 178-500 B12, [id number] 03:32:00 Test Item Value Reference Range Comments B12 (test code=B12) 717 pg/ml 239-941 [id number] 03:32:00 Test Item Value Reference Range Comments Folic Acid (test code=FOLIC) 5.35 ng/ml 2.76-20.00 IRON [id number] 03:32:00 Test Item Value Reference Range Comments Iron (test code=FETOT) 33 ug/dl 20-149 TIBC (test code=TIBC) 161 ug/dl 178-500 Iron Saturation (test code=FESAT) 20 % 16-62 [id number] 03:05:00 Test Item Value Reference Range Comments [...] (test code=BGCTHB) 9.6 gm/dl 11.5-17.4 O2Hb (test code=CVPD0GJ) 94.7 % 95.0-99.0 COHb (test code=BGFCOHB) <2.8 [...] Notified (test code=BGTMNOTIFIED) 03:03 O2 Device (test code=JCF7OYU4) ROOM AIR Instrument ID (test code=BGINSTRID) [id number] Reported By (test code=BGREPORTEDBY) LUCY GAMBLE GLYCOSALATED [id number] 02:39:00 Test Item Value Reference Range Comments Hemoglobin A1C (test 5.78 % 4.3-6.0 code=GLYCO) Mean Plasma Glucose (test 128 mg/dl 90-180 WHEN TEST RESULTS FOR A1C code=MPG) EXCEED 14.0, THE LINEAR LIMIT OF THE INSTRUMENT, THE CALCULATED RESULT FOR THE MEAN GLUCOSE IS NOT RELIABLE. CORONARY [id number] 02:22:00 Test Item Value Reference Range Comments [...] vLDL (test code=VLDL) 16 mg/dl 30-60 VANCOMYCIN, [id number] 02:19:00 Test Item Value Reference Range Comments Vancomycin, Trough (test 7.7 ug/ml 15.0-20.0 05/13/2009 Change in Therapeutic code=VANCT) Range, for Trough Level, has been implemented per P&T committee. INTERPRETATION GUIDE: CONSIDER SENSITIVITY REPORT IF NGUYEN IS=1 THERAPEUTIC RANGE IS 15-20 ug/ml IF NGUYEN IS > OR=2 CONSIDER ALTERNATE THERAPY [id number] 02:05:00 Test Item Value Reference Range Comments [...] mL/min/1.73m\\S\\2 EGFR if Non- 23 Estimated Glomerular [place] (test mL/min/1.73m\\S\\2 Filtration Rate (eGFR) code=EGFRNA) Reference Intervals Decision Points for 18 years and older and average body mass: >=60 Does not exclude kidney disease. 30 - 59 Suggests moderate chronic kidney disease and indicates the need for further investigation including assessment of proteinuria and cardiovascular factors. < 30 Usually indicates a need for referral for assessment and management of chronic kidney failure. [id number] 02:05:00 Test Item Value Reference Range Comments Magnesium (test code=MG) 1.9 mg/dl 1.6-2.3 CBC WITH AUTO [id number] 02:03:00 Test Item Value Reference Range Comments [...] code=IG%) 0.9 % 0.0-0.4 AFB CULTURE + [id number] 12:29:00 Test Item Value Reference Range Comments CULTURE (BEAKER) (test No acid-fast bacilli isolated ekoa=3858) in 42 days AFB SMEAR (BEAKER) (test No acid fast bacilli seen jpbu=252) AFB CULTURE + [id number] 12:28:00 Test Item Value Reference Range Comments CULTURE (BEAKER) (test No acid-fast bacilli isolated wxyj=3972) in 42 days AFB SMEAR (BEAKER) (test No acid fast bacilli seen qkgy=501) FUNGUS CULTURE + [id number] 17:13:00 Test Item Value Reference Range Comments CULTURE (BEAKER) (test No fungus isolated in 28 days ihfl=3897) FUNGUS SMEAR (BEAKER) (test No fungi seen hvme=4515) FUNGUS CULTURE + [id number] 17:13:00 Test Item Value Reference Range Comments CULTURE (BEAKER) (test No fungus isolated in 28 days yqlp=5683) FUNGUS SMEAR (BEAKER) (test No fungi seen caxs=1212) FUNGUS CULTURE + [id number] 21:46:00 Test Item Value Reference Range Comments CULTURE (BEAKER) (test No fungus isolated in 28 days uajm=5250) FUNGUS SMEAR (BEAKER) (test No fungi seen lcmm=1020) POCT-GLUCOSE [id number] 17:22:00 Test Item Value Reference Range Comments POC-GLUCOSE METER (BEAKER) 169 mg/dL 70-110 TESTED AT [address] (test zgwo=7685) [place] [id number] POCT-GLUCOSE [id number] 12:13:00 Test Item Value Reference Range Comments POC-GLUCOSE METER (BEAKER) 165 mg/dL 70-110 TESTED AT [address] (test vazt=9848) [place] [id number] POCT-GLUCOSE [id number] 07:48:00 Test Item Value Reference Range Comments POC-GLUCOSE METER (BEAKER) 132 mg/dL 70-110 TESTED AT [address] (test jjvb=2669) [place] [id number] BASIC METABOLIC [id number] 07:26:00 Test Item Value Reference Range Comments SODIUM (BEAKER) (test 133 meq/L 136-145 ydjm=843) POTASSIUM (BEAKER) (test 4.2 meq/L 3.5-5.1 ahsv=381) CHLORIDE (BEAKER) (test 101 meq/L 98-107 geaq=961) CO2 (BEAKER) (test 22 meq/L 22-29 gabe=729) BLOOD UREA NITROGEN 38 mg/dL 7-21 (BEAKER) (test enxy=881) CREATININE (BEAKER) (test 4.01 mg/dL 0.57-1.25 zshr=694) GLUCOSE RANDOM (BEAKER) 110 mg/dL 70-105 (test bfku=962) CALCIUM (BEAKER) (test 8.7 mg/dL 8.4-10.2 dxjx=434) EGFR (BEAKER) (test 15 mL/min/1.73 sq m ESTIMATED GFR IS NOT eeez=4621) ACCURATE CREATININE CLEARANCE IN PREDICTING GLOMERULAR FILTRATION RATE. ESTIMATED GFR IS NOT APPLICABLE FOR DIALYSIS PATIENTS. [id number] 07:25:00 Test Item Value Reference Range Comments PHOSPHORUS (BEAKER) (test tdkm=633) 4.4 mg/dL 2.3-4.7 [id number] 07:25:00 Test Item Value Reference Range Comments MAGNESIUM (BEAKER) (test jnhy=188) 1.9 mg/dL 1.6-2.6 CBC W/PLT COUNT & AUTO [id number] 06:54:00 Test Item Value Reference Range Comments WHITE BLOOD CELL COUNT (BEAKER) (test ldhs=853) 12.6 K/ L 4.0-10.0 RED BLOOD CELL COUNT (BEAKER) (test ojom=212) 2.78 M/ L 4.20-5.80 HEMOGLOBIN (BEAKER) (test eqdk=850) 8.3 GM/DL 13.0-16.8 HEMATOCRIT (BEAKER) (test xafq=944) 25.1 % 40.0-50.0 MEAN CORPUSCULAR VOLUME (BEAKER) (test emis=143) 90.3 fL 82.0-98.0 MEAN CORPUSCULAR HEMOGLOBIN (BEAKER) (test 29.8 pg 27.0-33.0 iork=675) MEAN CORPUSCULAR HEMOGLOBIN CONC (BEAKER) (test 33.1 GM/DL 32.0-36.0 vipa=958) RED CELL DISTRIBUTION WIDTH (BEAKER) (test 16.1 % 10.3-14.2 mqes=262) PLATELET COUNT (BEAKER) (test zfou=894) 290 K/CU MM 150-430 MEAN PLATELET VOLUME (BEAKER) (test tilz=937) 7.2 fL 6.5-10.5 NUCLEATED RED BLOOD CELLS (BEAKER) (test 0 /100 WBC 0-0 gxdl=076) NEUTROPHILS RELATIVE PERCENT (BEAKER) (test 74 % pcsn=641) LYMPHOCYTES RELATIVE PERCENT (BEAKER) (test 15 % ngsq=447) MONOCYTES RELATIVE PERCENT (BEAKER) (test 9 % ynhl=795) EOSINOPHILS RELATIVE PERCENT (BEAKER) (test 2 % gdyq=716) BASOPHILS RELATIVE PERCENT (BEAKER) (test 0 % hycy=024) NEUTROPHILS ABSOLUTE COUNT (BEAKER) (test 9.30 K/ L 1.80-8.00 maqc=101) LYMPHOCYTES ABSOLUTE COUNT (BEAKER) (test 1.89 K/ L 1.48-4.50 guin=915) MONOCYTES ABSOLUTE COUNT (BEAKER) (test 1.14 K/ L 0.00-1.30 eidq=729) EOSINOPHILS ABSOLUTE COUNT (BEAKER) (test 0.26 K/ L 0.00-0.50 njsh=981) BASOPHILS ABSOLUTE COUNT (BEAKER) (test 0.05 K/ L 0.00-0.20 mbxn=507) 0.00POCT-GLUCOSE [id number] 22:31:00 Test Item Value Reference Range Comments POC-GLUCOSE METER (BEAKER) 133 mg/dL 70-110 TESTED AT [address] (test azvj=8151) [place] [address] POCT-GLUCOSE [id number] 17:17:00 Test Item Value Reference Range Comments POC-GLUCOSE METER (BEAKER) 119 mg/dL 70-110 TESTED AT [address] (test almr=0791) [place] [address] POCT-GLUCOSE [id number] 11:43:00 Test Item Value Reference Range Comments POC-GLUCOSE METER (BEAKER) 175 mg/dL 70-110 TESTED AT [address] (test uohm=6400) [place] [address] CBC W/PLT COUNT & AUTO [id number] 08:39:00 Test Item Value Reference Range Comments WHITE BLOOD CELL COUNT (BEAKER) (test ruke=306) 13.4 K/ L 4.0-10.0 RED BLOOD CELL COUNT (BEAKER) (test bvxk=271) 2.91 M/ L 4.20-5.80 HEMOGLOBIN (BEAKER) (test cnqa=426) 8.6 GM/DL 13.0-16.8 HEMATOCRIT (BEAKER) (test kpxl=118) 26.5 % 40.0-50.0 MEAN CORPUSCULAR VOLUME (BEAKER) (test wsjx=802) 91.1 fL 82.0-98.0 MEAN CORPUSCULAR HEMOGLOBIN (BEAKER) (test 29.4 pg 27.0-33.0 hetq=570) MEAN CORPUSCULAR HEMOGLOBIN CONC (BEAKER) (test 32.3 GM/DL 32.0-36.0 rtod=474) RED CELL DISTRIBUTION WIDTH (BEAKER) (test 16.0 % 10.3-14.2 fozs=768) PLATELET COUNT (BEAKER) (test ywyr=612) 282 K/CU MM 150-430 MEAN PLATELET VOLUME (BEAKER) (test vcwf=608) 7.7 fL 6.5-10.5 NUCLEATED RED BLOOD CELLS (BEAKER) (test 0 /100 WBC 0-0 bbfz=107) NEUTROPHILS RELATIVE PERCENT (BEAKER) (test 72 % gxfe=837) LYMPHOCYTES RELATIVE PERCENT (BEAKER) (test 16 % nhxh=977) MONOCYTES RELATIVE PERCENT (BEAKER) (test 10 % idth=761) EOSINOPHILS RELATIVE PERCENT (BEAKER) (test 2 % mnwd=527) BASOPHILS RELATIVE PERCENT (BEAKER) (test 1 % ncdw=783) NEUTROPHILS ABSOLUTE COUNT (BEAKER) (test 9.63 K/ L 1.80-8.00 gfnl=070) LYMPHOCYTES ABSOLUTE COUNT (BEAKER) (test 2.15 K/ L 1.48-4.50 pkeb=929) MONOCYTES ABSOLUTE COUNT (BEAKER) (test 1.32 K/ L 0.00-1.30 gnxq=302) EOSINOPHILS ABSOLUTE COUNT (BEAKER) (test 0.23 K/ L 0.00-0.50 zxhg=515) BASOPHILS ABSOLUTE COUNT (BEAKER) (test 0.10 K/ L 0.00-0.20 mxmk=457) 0.000.730.001.460.000.000.000.000.000.000.000.000.000.000.000.00(MANUAL DIFFERENTIAL)2016-12-24 08:39:00 Test Item Value Reference Range Comments TOTAL COUNTED (BEAKER) (test clxf=1160) POCT-GLUCOSE [id number] 07:47:00 Test Item Value Reference Range Comments POC-GLUCOSE METER (BEAKER) 139 mg/dL 70-110 TESTED AT [address] (test qcft=5300) [facility] [address] BASIC METABOLIC [id number] 06:50:00 Test Item Value Reference Range Comments SODIUM (BEAKER) (test 133 meq/L 136-145 wukr=496) POTASSIUM (BEAKER) (test 4.2 meq/L 3.5-5.1 csir=747) CHLORIDE (BEAKER) (test 102 meq/L 98-107 jrib=100) CO2 (BEAKER) (test 21 meq/L 22-29 wxgw=631) BLOOD UREA NITROGEN 27 mg/dL 7-21 (BEAKER) (test czcs=405) CREATININE (BEAKER) (test 3.13 mg/dL 0.57-1.25 stsk=303) GLUCOSE RANDOM (BEAKER) 100 mg/dL 70-105 (test nbyx=760) CALCIUM (BEAKER) (test 8.8 mg/dL 8.4-10.2 hjig=693) EGFR (BEAKER) (test 21 mL/min/1.73 sq m ESTIMATED GFR IS NOT zubu=2792) ACCURATE CREATININE CLEARANCE IN PREDICTING GLOMERULAR FILTRATION RATE. ESTIMATED GFR IS NOT APPLICABLE FOR DIALYSIS PATIENTS. [id number] 06:41:00 Test Item Value Reference Range Comments PHOSPHORUS (BEAKER) (test bfpa=501) 2.9 mg/dL 2.3-4.7 [id number] 06:41:00 Test Item Value Reference Range Comments MAGNESIUM (BEAKER) (test otar=403) 1.7 mg/dL 1.6-2.6 POCT-GLUCOSE [id number] 21:52:00 Test Item Value Reference Range Comments POC-GLUCOSE METER (BEAKER) 97 mg/dL 70-110 TESTED AT [address] (test xwet=3650) [facility] [address] POCT-GLUCOSE [id number] 17:28:00 Test Item Value Reference Range Comments POC-GLUCOSE METER (BEAKER) 105 mg/dL 70-110 TESTED AT [address] (test ddzh=5999) [facility] [address] POCT-GLUCOSE [id number] 12:31:00 Test Item Value Reference Range Comments POC-GLUCOSE METER (BEAKER) 215 mg/dL 70-110 TESTED AT [address] (test hoaw=8853) [facility] [address] POCT-GLUCOSE [id number] 08:19:00 Test Item Value Reference Range Comments POC-GLUCOSE METER (BEAKER) 135 mg/dL 70-[address] [facility] [address] (test zeqs=8200) [facility] [address] CBC W/PLT COUNT & AUTO [id number] 07:19:00 Test Item Value Reference Range Comments WHITE BLOOD CELL COUNT (BEAKER) (test tjzl=917) 15.0 K/ L 4.0-10.0 RED BLOOD CELL COUNT (BEAKER) (test gixz=456) 3.04 M/ L 4.20-5.80 HEMOGLOBIN (BEAKER) (test xxws=435) 8.8 GM/DL 13.0-16.8 HEMATOCRIT (BEAKER) (test fgqk=054) 27.3 % 40.0-50.0 MEAN CORPUSCULAR VOLUME (BEAKER) (test wldp=671) 89.8 fL 82.0-98.0 MEAN CORPUSCULAR HEMOGLOBIN (BEAKER) (test 29.0 pg 27.0-33.0 juhf=727) MEAN CORPUSCULAR HEMOGLOBIN CONC (BEAKER) (test 32.3 GM/DL 32.0-36.0 ekzf=768) RED CELL DISTRIBUTION WIDTH (BEAKER) (test 17.0 % 10.3-14.2 wvtz=402) PLATELET COUNT (BEAKER) (test hegg=991) 285 K/CU MM 150-430 MEAN PLATELET VOLUME (BEAKER) (test smzc=512) 7.2 fL 6.5-10.5 NUCLEATED RED BLOOD CELLS (BEAKER) (test 0 /100 WBC 0-0 acdz=603) NEUTROPHILS RELATIVE PERCENT (BEAKER) (test 77 % gltx=573) LYMPHOCYTES RELATIVE PERCENT (BEAKER) (test 11 % budg=611) MONOCYTES RELATIVE PERCENT (BEAKER) (test 11 % itwb=108) EOSINOPHILS RELATIVE PERCENT (BEAKER) (test 1 % lmhj=797) BASOPHILS RELATIVE PERCENT (BEAKER) (test 0 % xikb=756) NEUTROPHILS ABSOLUTE COUNT (BEAKER) (test 11.50 K/ L 1.80-8.00 wkpq=138) LYMPHOCYTES ABSOLUTE COUNT (BEAKER) (test 1.72 K/ L 1.48-4.50 dimt=923) MONOCYTES ABSOLUTE COUNT (BEAKER) (test 1.59 K/ L 0.00-1.30 gfcd=491) EOSINOPHILS ABSOLUTE COUNT (BEAKER) (test 0.17 K/ L 0.00-0.50 cnnd=408) BASOPHILS ABSOLUTE COUNT (BEAKER) (test 0.05 K/ L 0.00-0.20 jaaw=963) [id number] 06:41:00 Test Item Value Reference Range Comments PHOSPHORUS (BEAKER) (test yfnb=460) 2.1 mg/dL 2.3-4.7 [id number] 06:41:00 Test Item Value Reference Range Comments MAGNESIUM (BEAKER) (test kgmy=472) 1.8 mg/dL 1.6-2.6 BASIC METABOLIC [id number] 06:41:00 Test Item Value Reference Range Comments SODIUM (BEAKER) (test 134 meq/L 136-145 jrhj=394) POTASSIUM (BEAKER) (test 4.2 meq/L 3.5-5.1 geqv=533) CHLORIDE (BEAKER) (test 103 meq/L 98-107 sjml=845) CO2 (BEAKER) (test 23 meq/L 22-29 jyrj=595) BLOOD UREA NITROGEN 18 mg/dL 7-21 (BEAKER) (test qugz=676) CREATININE (BEAKER) (test 2.20 mg/dL 0.57-1.25 dwwa=378) GLUCOSE RANDOM (BEAKER) 105 mg/dL 70-105 (test djcm=908) CALCIUM (BEAKER) (test 8.5 mg/dL 8.4-10.2 hmee=417) EGFR (BEAKER) (test 31 mL/min/1.73 sq m ESTIMATED GFR IS NOT vsrr=3040) ACCURATE CREATININE CLEARANCE IN PREDICTING GLOMERULAR FILTRATION RATE. ESTIMATED GFR IS NOT APPLICABLE FOR DIALYSIS PATIENTS. POCT-GLUCOSE [id number] 21:43:00 Test Item Value Reference Range Comments POC-GLUCOSE METER (BEAKER) 278 mg/dL 70-110 TESTED AT [address] (test kgpi=7972) [facility] [address] POCT-GLUCOSE [id number] 18:42:00 Test Item Value Reference Range Comments POC-GLUCOSE METER (BEAKER) 177 mg/dL 70-110 TESTED AT [address] (test mvzg=2964) [facility] [address] POCT-GLUCOSE [id number] 14:53:00 Test Item Value Reference Range Comments POC-GLUCOSE METER (BEAKER) 197 mg/dL 70-110 TESTED AT [place] [id number] [facility] (test wsqc=2459) [facility] [address] CBC W/PLT COUNT & AUTO [id number] 12:20:00 Test Item Value Reference Range Comments WHITE BLOOD CELL COUNT (BEAKER) (test fdey=968) 13.6 K/ L 4.0-10.0 RED BLOOD CELL COUNT (BEAKER) (test rbbo=072) 2.85 M/ L 4.20-5.80 HEMOGLOBIN (BEAKER) (test thzk=209) 8.3 GM/DL 13.0-16.8 HEMATOCRIT (BEAKER) (test fifk=587) 25.8 % 40.0-50.0 MEAN CORPUSCULAR VOLUME (BEAKER) (test abti=736) 90.6 fL 82.0-98.0 MEAN CORPUSCULAR HEMOGLOBIN (BEAKER) (test 29.3 pg 27.0-33.0 agba=468) MEAN CORPUSCULAR HEMOGLOBIN CONC (BEAKER) (test 32.3 GM/DL 32.0-36.0 zblb=041) RED CELL DISTRIBUTION WIDTH (BEAKER) (test 16.7 % 10.3-14.2 fucb=972) PLATELET COUNT (BEAKER) (test hxez=123) 252 K/CU MM 150-430 MEAN PLATELET VOLUME (BEAKER) (test qejv=758) 7.4 fL 6.5-10.5 NUCLEATED RED BLOOD CELLS (BEAKER) (test 0 /100 WBC 0-0 wgcn=882) NEUTROPHILS RELATIVE PERCENT (BEAKER) (test 75 % qxwy=425) LYMPHOCYTES RELATIVE PERCENT (BEAKER) (test 13 % mhyy=777) MONOCYTES RELATIVE PERCENT (BEAKER) (test 10 % afju=882) EOSINOPHILS RELATIVE PERCENT (BEAKER) (test 2 % lala=126) BASOPHILS RELATIVE PERCENT (BEAKER) (test 0 % pfzh=866) NEUTROPHILS ABSOLUTE COUNT (BEAKER) (test 10.20 K/ L 1.80-8.00 ekft=028) LYMPHOCYTES ABSOLUTE COUNT (BEAKER) (test 1.78 K/ L 1.48-4.50 pgcn=556) MONOCYTES ABSOLUTE COUNT (BEAKER) (test 1.32 K/ L 0.00-1.30 pkif=565) EOSINOPHILS ABSOLUTE COUNT (BEAKER) (test 0.22 K/ L 0.00-0.50 tltv=772) BASOPHILS ABSOLUTE COUNT (BEAKER) (test 0.06 K/ L 0.00-0.20 jgxx=387) 0.00POCT-GLUCOSE [id number] 08:28:00 Test Item Value Reference Range Comments POC-GLUCOSE METER (BEAKER) 132 mg/dL 70-[address] [facility] [address] [facility] (test ceek=0121) [facility] [address] BASIC METABOLIC [id number] 07:26:00 Test Item Value Reference Range Comments SODIUM (BEAKER) (test 131 meq/L 136-145 wivi=767) POTASSIUM (BEAKER) (test 4.2 meq/L 3.5-5.1 urli=683) CHLORIDE (BEAKER) (test 98 meq/L 98-107 wukv=528) CO2 (BEAKER) (test 24 meq/L 22-29 vnsq=627) BLOOD UREA NITROGEN 25 mg/dL 7-21 (BEAKER) (test efzv=216) CREATININE (BEAKER) (test 3.02 mg/dL 0.57-1.25 avhi=793) GLUCOSE RANDOM (BEAKER) 103 mg/dL 70-105 (test uowp=918) CALCIUM (BEAKER) (test 8.1 mg/dL 8.4-10.2 eqob=178) EGFR (BEAKER) (test 21 mL/min/1.73 sq m ESTIMATED GFR IS NOT anqa=6030) ACCURATE CREATININE CLEARANCE IN PREDICTING GLOMERULAR FILTRATION RATE. ESTIMATED GFR IS NOT APPLICABLE FOR DIALYSIS PATIENTS. [id number] 07:17:00 Test Item Value Reference Range Comments PHOSPHORUS (BEAKER) (test cykk=111) 3.1 mg/dL 2.3-4.7 [id number] 07:17:00 Test Item Value Reference Range Comments MAGNESIUM (BEAKER) (test hcrb=490) 1.8 mg/dL 1.6-2.6 CALCIUM, [id number] 05:38:00 Test Item Value Reference Range Comments CALCIUM IONIZED (BEAKER) (test vyrv=574) 1.09 mmol/L 1.12-1.27 PH, BLOOD (BEAKER) (test mmrd=8870) 7.45 POCT-GLUCOSE [id number] 21:45:00 Test Item Value Reference Range Comments POC-GLUCOSE METER (BEAKER) 121 mg/dL 70-110 TESTED AT [address] (test cwfo=7285) [facility] [address] POCT-GLUCOSE [id number] 16:48:00 Test Item Value Reference Range Comments POC-GLUCOSE METER (BEAKER) 157 mg/dL 70-110 TESTED AT [address] (test faur=5377) [facility] [address] POCT-GLUCOSE [id number] 12:16:00 Test Item Value Reference Range Comments POC-GLUCOSE METER (BEAKER) 247 mg/dL 70-110 TESTED AT [address] (test llss=0550) [facility] [address] POCT-GLUCOSE [id number] 08:14:00 Test Item Value Reference Range Comments POC-GLUCOSE METER (BEAKER) 166 mg/dL 70-110 TESTED AT [address] (test qvyu=8910) [facility] [address] BASIC METABOLIC [id number] 07:58:00 Test Item Value Reference Range Comments SODIUM (BEAKER) (test 131 meq/L 136-145 gwso=031) POTASSIUM (BEAKER) (test 3.9 meq/L 3.5-5.1 ywjt=947) CHLORIDE (BEAKER) (test 99 meq/L 98-107 nihm=520) CO2 (BEAKER) (test 26 meq/L 22-29 flgg=251) BLOOD UREA NITROGEN 18 mg/dL 7-21 (BEAKER) (test zyvu=774) CREATININE (BEAKER) (test 2.32 mg/dL 0.57-1.25 stwi=112) GLUCOSE RANDOM (BEAKER) 145 mg/dL 70-105 (test bvwz=012) CALCIUM (BEAKER) (test 8.1 mg/dL 8.4-10.2 vtea=785) EGFR (BEAKER) (test 29 mL/min/1.73 sq m ESTIMATED GFR IS NOT rmbk=5268) ACCURATE CREATININE CLEARANCE IN PREDICTING GLOMERULAR FILTRATION RATE. ESTIMATED GFR IS NOT APPLICABLE FOR DIALYSIS PATIENTS. CBC W/PLT COUNT & AUTO [id number] 07:50:00 Test Item Value Reference Range Comments WHITE BLOOD CELL COUNT (BEAKER) (test hckg=803) 15.3 K/ L 4.0-10.0 RED BLOOD CELL COUNT (BEAKER) (test wbpy=957) 3.00 M/ L 4.20-5.80 HEMOGLOBIN (BEAKER) (test rwmv=515) 8.4 GM/DL 13.0-16.8 HEMATOCRIT (BEAKER) (test ibcd=429) 27.3 % 40.0-50.0 MEAN CORPUSCULAR VOLUME (BEAKER) (test uzpq=728) 90.9 fL 82.0-98.0 MEAN CORPUSCULAR HEMOGLOBIN (BEAKER) (test 28.0 pg 27.0-33.0 wydc=147) MEAN CORPUSCULAR HEMOGLOBIN CONC (BEAKER) (test 30.8 GM/DL 32.0-36.0 rkmj=304) RED CELL DISTRIBUTION WIDTH (BEAKER) (test 15.9 % 10.3-14.2 trfp=482) PLATELET COUNT (BEAKER) (test divt=174) 271 K/CU MM 150-430 MEAN PLATELET VOLUME (BEAKER) (test ilzm=192) 7.4 fL 6.5-10.5 NUCLEATED RED BLOOD CELLS (BEAKER) (test 0 /100 WBC 0-0 esna=715) NEUTROPHILS RELATIVE PERCENT (BEAKER) (test 76 % zknq=977) LYMPHOCYTES RELATIVE PERCENT (BEAKER) (test 14 % cqod=689) MONOCYTES RELATIVE PERCENT (BEAKER) (test 9 % aysd=052) EOSINOPHILS RELATIVE PERCENT (BEAKER) (test 1 % cfyq=774) BASOPHILS RELATIVE PERCENT (BEAKER) (test 0 % eavv=863) NEUTROPHILS ABSOLUTE COUNT (BEAKER) (test 11.60 K/ L 1.80-8.00 ccbq=800) LYMPHOCYTES ABSOLUTE COUNT (BEAKER) (test 2.11 K/ L 1.48-4.50 yfpc=381) MONOCYTES ABSOLUTE COUNT (BEAKER) (test 1.36 K/ L 0.00-1.30 bcfw=392) EOSINOPHILS ABSOLUTE COUNT (BEAKER) (test 0.17 K/ L 0.00-0.50 eqdc=291) BASOPHILS ABSOLUTE COUNT (BEAKER) (test 0.06 K/ L 0.00-0.20 fxdc=392) [id number] 07:24:00 Test Item Value Reference Range Comments PHOSPHORUS (BEAKER) (test zqrq=248) 2.1 mg/dL 2.3-4.7 [id number] 07:24:00 Test Item Value Reference Range Comments MAGNESIUM (BEAKER) (test ubma=945) 1.6 mg/dL 1.6-2.6 POCT-GLUCOSE [id number] 20:38:00 Test Item Value Reference Range Comments POC-GLUCOSE METER (BEAKER) 191 mg/dL 70-110 TESTED AT [address] (test arts=9965) [place] [id number] POCT-GLUCOSE [id number] 17:32:00 Test Item Value Reference Range Comments POC-GLUCOSE METER (BEAKER) 229 mg/dL 70-110 TESTED AT [address] (test acvf=4428) [place] [address] VANCOMYCIN LEVEL, [id number] 16:51:00 Test Item Value Reference Range Comments VANCOMYCIN TROUGH (BEAKER) (test tqzj=203) 17.2 ug/mL 10.0-20.0 At end of dialysis on 12/20/16POCT-GLUCOSE [id number] 11:49:00 Test Item Value Reference Range Comments POC-GLUCOSE METER (BEAKER) 97 mg/dL 70-110 TESTED AT [address] (test nuvy=3492) [place] [id number] POCT-GLUCOSE [id number] 07:38:00 Test Item Value Reference Range Comments POC-GLUCOSE METER (BEAKER) 151 mg/dL 70-110 TESTED AT [address] (test tbnf=3389) [place] [id number] BASIC METABOLIC [id number] 06:39:00 Test Item Value Reference Range Comments SODIUM (BEAKER) (test 134 meq/L 136-145 mfvb=705) POTASSIUM (BEAKER) (test 3.9 meq/L 3.5-5.1 ngcm=159) CHLORIDE (BEAKER) (test 102 meq/L 98-107 tjwc=007) CO2 (BEAKER) (test 24 meq/L 22-29 owur=956) BLOOD UREA NITROGEN 23 mg/dL 7-21 (BEAKER) (test oakn=872) CREATININE (BEAKER) (test 2.91 mg/dL 0.57-1.25 cplo=859) GLUCOSE RANDOM (BEAKER) 99 mg/dL 70-105 (test uueb=379) CALCIUM (BEAKER) (test 8.2 mg/dL 8.4-10.2 upxf=993) EGFR (BEAKER) (test 22 mL/min/1.73 sq m ESTIMATED GFR IS NOT bror=9390) ACCURATE CREATININE CLEARANCE IN PREDICTING GLOMERULAR FILTRATION RATE. ESTIMATED GFR IS NOT APPLICABLE FOR DIALYSIS PATIENTS. [id number] 06:37:00 Test Item Value Reference Range Comments PHOSPHORUS (BEAKER) (test afcb=968) 2.9 mg/dL 2.3-4.7 [id number] 06:37:00 Test Item Value Reference Range Comments MAGNESIUM (BEAKER) (test qivs=037) 1.6 mg/dL 1.6-2.6 CBC W/PLT COUNT & AUTO [id number] 06:36:00 Test Item Value Reference Range Comments WHITE BLOOD CELL COUNT (BEAKER) (test awrp=297) 14.1 K/ L 4.0-10.0 RED BLOOD CELL COUNT (BEAKER) (test dwzo=028) 3.01 M/ L 4.20-5.80 HEMOGLOBIN (BEAKER) (test mxrg=440) 8.7 GM/DL 13.0-16.8 HEMATOCRIT (BEAKER) (test ltca=778) 26.8 % 40.0-50.0 MEAN CORPUSCULAR VOLUME (BEAKER) (test bhzx=687) 88.9 fL 82.0-98.0 MEAN CORPUSCULAR HEMOGLOBIN (BEAKER) (test 28.8 pg 27.0-33.0 oozf=511) MEAN CORPUSCULAR HEMOGLOBIN CONC (BEAKER) (test 32.5 GM/DL 32.0-36.0 dbnq=887) RED CELL DISTRIBUTION WIDTH (BEAKER) (test 16.3 % 10.3-14.2 dnmg=347) PLATELET COUNT (BEAKER) (test wdco=138) 242 K/CU MM 150-430 MEAN PLATELET VOLUME (BEAKER) (test bhfh=368) 6.9 fL 6.5-10.5 NUCLEATED RED BLOOD CELLS (BEAKER) (test 0 /100 WBC 0-0 lviw=647) NEUTROPHILS RELATIVE PERCENT (BEAKER) (test 73 % vjle=055) LYMPHOCYTES RELATIVE PERCENT (BEAKER) (test 15 % audo=918) MONOCYTES RELATIVE PERCENT (BEAKER) (test 9 % swvo=047) EOSINOPHILS RELATIVE PERCENT (BEAKER) (test 2 % ngit=960) BASOPHILS RELATIVE PERCENT (BEAKER) (test 0 % otpu=970) NEUTROPHILS ABSOLUTE COUNT (BEAKER) (test 10.30 K/ L 1.80-8.00 vndv=325) LYMPHOCYTES ABSOLUTE COUNT (BEAKER) (test 2.14 K/ L 1.48-4.50 lbqy=293) MONOCYTES ABSOLUTE COUNT (BEAKER) (test 1.33 K/ L 0.00-1.30 lpns=314) EOSINOPHILS ABSOLUTE COUNT (BEAKER) (test 0.29 K/ L 0.00-0.50 phqm=371) BASOPHILS ABSOLUTE COUNT (BEAKER) (test 0.06 K/ L 0.00-0.20 njmj=193) 0.00CALCIUM, [id number] 06:24:00 Test Item Value Reference Range Comments CALCIUM IONIZED (BEAKER) (test hulz=830) 1.08 mmol/L 1.12-1.27 PH, BLOOD (BEAKER) (test pfif=9538) 7.46 POCT-GLUCOSE [id number] 22:24:00 Test Item Value Reference Range Comments POC-GLUCOSE METER (BEAKER) 166 mg/dL 70-110 TESTED AT [address] (test ouia=0683) [place] [id number] POCT-GLUCOSE [id number] 16:17:00 Test Item Value Reference Range Comments POC-GLUCOSE METER (BEAKER) 132 mg/dL 70-110 TESTED AT [address] (test iklo=2728) [place] [address] POCT-GLUCOSE [id number] 12:16:00 Test Item Value Reference Range Comments POC-GLUCOSE METER (BEAKER) 90 mg/dL 70-110 TESTED AT [address] (test igtl=1193) [place] [address] POCT-GLUCOSE [id number] 08:13:00 Test Item Value Reference Range Comments POC-GLUCOSE METER (BEAKER) 111 mg/dL 70-110 TESTED AT [address] (test jilw=8198) [place] [address] CBC W/PLT COUNT & AUTO [id number] 07:40:00 Test Item Value Reference Range Comments WHITE BLOOD CELL COUNT (BEAKER) (test dgdh=461) 11.9 K/ L 4.0-10.0 RED BLOOD CELL COUNT (BEAKER) (test bbob=339) 3.11 M/ L 4.20-5.80 HEMOGLOBIN (BEAKER) (test cnxk=562) 8.9 GM/DL 13.0-16.8 HEMATOCRIT (BEAKER) (test osqf=692) 28.0 % 40.0-50.0 MEAN CORPUSCULAR VOLUME (BEAKER) (test lkyf=778) 90.3 fL 82.0-98.0 MEAN CORPUSCULAR HEMOGLOBIN (BEAKER) (test 28.7 pg 27.0-33.0 qryh=760) MEAN CORPUSCULAR HEMOGLOBIN CONC (BEAKER) (test 31.8 GM/DL 32.0-36.0 qmhq=651) RED CELL DISTRIBUTION WIDTH (BEAKER) (test 15.5 % 10.3-14.2 mlxd=474) PLATELET COUNT (BEAKER) (test kord=613) 252 K/CU MM 150-430 MEAN PLATELET VOLUME (BEAKER) (test znhy=886) 7.1 fL 6.5-10.5 NUCLEATED RED BLOOD CELLS (BEAKER) (test 0 /100 WBC 0-0 xwhw=009) NEUTROPHILS RELATIVE PERCENT (BEAKER) (test 69 % jzsj=425) LYMPHOCYTES RELATIVE PERCENT (BEAKER) (test 18 % yyjj=835) MONOCYTES RELATIVE PERCENT (BEAKER) (test 11 % xbzv=809) EOSINOPHILS RELATIVE PERCENT (BEAKER) (test 2 % ylwo=685) BASOPHILS RELATIVE PERCENT (BEAKER) (test 0 % sain=589) NEUTROPHILS ABSOLUTE COUNT (BEAKER) (test 8.27 K/ L 1.80-8.00 grzz=641) LYMPHOCYTES ABSOLUTE COUNT (BEAKER) (test 2.09 K/ L 1.48-4.50 eres=526) MONOCYTES ABSOLUTE COUNT (BEAKER) (test 1.35 K/ L 0.00-1.30 yije=256) EOSINOPHILS ABSOLUTE COUNT (BEAKER) (test 0.19 K/ L 0.00-0.50 ppmf=165) BASOPHILS ABSOLUTE COUNT (BEAKER) (test 0.04 K/ L 0.00-0.20 tegh=988) [id number] 07:29:00 Test Item Value Reference Range Comments PHOSPHORUS (BEAKER) (test vjwp=509) 1.8 mg/dL 2.3-4.7 [id number] 07:29:00 Test Item Value Reference Range Comments MAGNESIUM (BEAKER) (test stiw=252) 1.6 mg/dL 1.6-2.6 BASIC METABOLIC [id number] 07:29:00 Test Item Value Reference Range Comments SODIUM (BEAKER) (test 135 meq/L 136-145 fynb=217) POTASSIUM (BEAKER) (test 3.7 meq/L 3.5-5.1 waqj=006) CHLORIDE (BEAKER) (test 104 meq/L 98-107 jdwe=396) CO2 (BEAKER) (test 24 meq/L 22-29 sfmh=348) BLOOD UREA NITROGEN 12 mg/dL 7-21 (BEAKER) (test rlui=621) CREATININE (BEAKER) (test 2.00 mg/dL 0.57-1.25 vzis=940) GLUCOSE RANDOM (BEAKER) 81 mg/dL 70-105 (test fljh=915) CALCIUM (BEAKER) (test 8.2 mg/dL 8.4-10.2 kvob=579) EGFR (BEAKER) (test 34 mL/min/1.73 sq m ESTIMATED GFR IS NOT dyjg=6473) ACCURATE CREATININE CLEARANCE IN PREDICTING GLOMERULAR FILTRATION RATE. ESTIMATED GFR IS NOT APPLICABLE FOR DIALYSIS PATIENTS. POCT-GLUCOSE [id number] 21:13:00 Test Item Value Reference Range Comments POC-GLUCOSE METER (BEAKER) 107 mg/dL 70-110 TESTED AT [address] (test bjmo=9161) [facility] [address] POCT-GLUCOSE [id number] 17:33:00 Test Item Value Reference Range Comments POC-GLUCOSE METER (BEAKER) 131 mg/dL 70-110 TESTED AT [address] (test jvkj=0096) [facility] [address] POCT-GLUCOSE [id number] 13:05:00 Test Item Value Reference Range Comments POC-GLUCOSE METER (BEAKER) 188 mg/dL 70-110 TESTED AT [address] (test slxe=2161) [facility] [address] POCT-GLUCOSE [id number] 09:01:00 Test Item Value Reference Range Comments POC-GLUCOSE METER (BEAKER) 103 mg/dL 70-110 TESTED AT [place] [id number] [facility] (test jyjz=9838) [facility] [address] CBC W/PLT COUNT & AUTO [id number] 07:08:00 Test Item Value Reference Range Comments WHITE BLOOD CELL COUNT (BEAKER) (test spms=077) 12.7 K/ L 4.0-10.0 RED BLOOD CELL COUNT (BEAKER) (test yaxt=459) 3.09 M/ L 4.20-5.80 HEMOGLOBIN (BEAKER) (test cmib=891) 9.0 GM/DL 13.0-16.8 HEMATOCRIT (BEAKER) (test rlyq=708) 27.4 % 40.0-50.0 MEAN CORPUSCULAR VOLUME (BEAKER) (test dfqq=507) 88.8 fL 82.0-98.0 MEAN CORPUSCULAR HEMOGLOBIN (BEAKER) (test 29.0 pg 27.0-33.0 teef=204) MEAN CORPUSCULAR HEMOGLOBIN CONC (BEAKER) (test 32.7 GM/DL 32.0-36.0 zkfn=529) RED CELL DISTRIBUTION WIDTH (BEAKER) (test 15.7 % 10.3-14.2 uvxh=419) PLATELET COUNT (BEAKER) (test vbjn=254) 257 K/CU MM 150-430 MEAN PLATELET VOLUME (BEAKER) (test ublp=901) 7.0 fL 6.5-10.5 NUCLEATED RED BLOOD CELLS (BEAKER) (test 0 /100 WBC 0-0 pfjs=900) NEUTROPHILS RELATIVE PERCENT (BEAKER) (test 74 % xcvt=396) LYMPHOCYTES RELATIVE PERCENT (BEAKER) (test 14 % gisz=626) MONOCYTES RELATIVE PERCENT (BEAKER) (test 9 % icwi=447) EOSINOPHILS RELATIVE PERCENT (BEAKER) (test 2 % uasg=133) BASOPHILS RELATIVE PERCENT (BEAKER) (test 0 % jlct=726) NEUTROPHILS ABSOLUTE COUNT (BEAKER) (test 9.38 K/ L 1.80-8.00 nbnk=255) LYMPHOCYTES ABSOLUTE COUNT (BEAKER) (test 1.80 K/ L 1.48-4.50 qpna=802) MONOCYTES ABSOLUTE COUNT (BEAKER) (test 1.20 K/ L 0.00-1.30 bwsw=001) EOSINOPHILS ABSOLUTE COUNT (BEAKER) (test 0.24 K/ L 0.00-0.50 vezt=172) BASOPHILS ABSOLUTE COUNT (BEAKER) (test 0.05 K/ L 0.00-0.20 nxkm=283) [id number] 06:17:00 Test Item Value Reference Range Comments PHOSPHORUS (BEAKER) (test srdm=611) 2.4 mg/dL 2.3-4.7 [id number] 06:17:00 Test Item Value Reference Range Comments MAGNESIUM (BEAKER) (test grgn=518) 1.5 mg/dL 1.6-2.6 BASIC METABOLIC [id number] 06:17:00 Test Item Value Reference Range Comments SODIUM (BEAKER) (test 135 meq/L 136-145 nuvz=057) POTASSIUM (BEAKER) (test 3.7 meq/L 3.5-5.1 imtg=869) CHLORIDE (BEAKER) (test 104 meq/L 98-107 hmnz=908) CO2 (BEAKER) (test 23 meq/L 22-29 aexo=050) BLOOD UREA NITROGEN 24 mg/dL 7-21 (BEAKER) (test uawq=475) CREATININE (BEAKER) (test 2.70 mg/dL 0.57-1.25 edtw=606) GLUCOSE RANDOM (BEAKER) 93 mg/dL 70-105 (test ckcd=843) CALCIUM (BEAKER) (test 8.4 mg/dL 8.4-10.2 qogr=828) EGFR (BEAKER) (test 24 mL/min/1.73 sq m ESTIMATED GFR IS NOT qwmq=0281) ACCURATE CREATININE CLEARANCE IN PREDICTING GLOMERULAR FILTRATION RATE. ESTIMATED GFR IS NOT APPLICABLE FOR DIALYSIS PATIENTS. POCT-GLUCOSE [id number] 23:43:00 Test Item Value Reference Range Comments POC-GLUCOSE METER (BEAKER) 100 mg/dL 70-[address] [facility] [address] (test angp=6864) [facility] [address] POCT-GLUCOSE [id number] 17:44:00 Test Item Value Reference Range Comments POC-GLUCOSE METER (BEAKER) 208 mg/dL 70-110 TESTED AT [address] (test wbru=1361) [facility] [address] ANAEROBIC [id number] 14:43:00 Test Item Value Reference Range Comments CULTURE (BEAKER) (test cjkl=9007) No anaerobes isolated ANAEROBIC [id number] 14:42:00 Test Item Value Reference Range Comments CULTURE (BEAKER) (test wrum=1239) No anaerobes isolated POCT-GLUCOSE [id number] 12:02:00 Test Item Value Reference Range Comments POC-GLUCOSE METER (BEAKER) 208 mg/dL 70-110 TESTED AT [address] (test bias=5294) [place] [id number] POCT-GLUCOSE [id number] 09:52:00 Test Item Value Reference Range Comments POC-GLUCOSE METER (BEAKER) 86 mg/dL 70-110 TESTED AT [address] (test bmgi=8511) [facility] [address] CBC W/PLT COUNT & AUTO [id number] 07:11:00 Test Item Value Reference Range Comments WHITE BLOOD CELL COUNT (BEAKER) (test fibf=414) 11.1 K/ L 4.0-10.0 RED BLOOD CELL COUNT (BEAKER) (test bnuu=425) 3.26 M/ L 4.20-5.80 HEMOGLOBIN (BEAKER) (test dizd=822) 9.6 GM/DL 13.0-16.8 HEMATOCRIT (BEAKER) (test mzwj=291) 29.4 % 40.0-50.0 MEAN CORPUSCULAR VOLUME (BEAKER) (test oqtm=755) 90.2 fL 82.0-98.0 MEAN CORPUSCULAR HEMOGLOBIN (BEAKER) (test 29.5 pg 27.0-33.0 bzjd=245) MEAN CORPUSCULAR HEMOGLOBIN CONC (BEAKER) (test 32.7 GM/DL 32.0-36.0 opma=774) RED CELL DISTRIBUTION WIDTH (BEAKER) (test 14.7 % 10.3-14.2 svjn=316) PLATELET COUNT (BEAKER) (test zqgp=515) 280 K/CU MM 150-430 MEAN PLATELET VOLUME (BEAKER) (test yzrk=532) 6.8 fL 6.5-10.5 NUCLEATED RED BLOOD CELLS (BEAKER) (test 0 /100 WBC 0-0 uuqb=320) NEUTROPHILS RELATIVE PERCENT (BEAKER) (test 73 % fkvd=534) LYMPHOCYTES RELATIVE PERCENT (BEAKER) (test 15 % xptx=754) MONOCYTES RELATIVE PERCENT (BEAKER) (test 10 % zqep=339) EOSINOPHILS RELATIVE PERCENT (BEAKER) (test 2 % rhmg=868) BASOPHILS RELATIVE PERCENT (BEAKER) (test 0 % nrtj=998) NEUTROPHILS ABSOLUTE COUNT (BEAKER) (test 8.08 K/ L 1.80-8.00 vwax=806) LYMPHOCYTES ABSOLUTE COUNT (BEAKER) (test 1.66 K/ L 1.48-4.50 lpsz=958) MONOCYTES ABSOLUTE COUNT (BEAKER) (test 1.06 K/ L 0.00-1.30 hfap=912) EOSINOPHILS ABSOLUTE COUNT (BEAKER) (test 0.26 K/ L 0.00-0.50 nmtu=974) BASOPHILS ABSOLUTE COUNT (BEAKER) (test 0.05 K/ L 0.00-0.20 bpod=932) [id number] 06:02:00 Test Item Value Reference Range Comments PHOSPHORUS (BEAKER) (test stzd=637) 1.7 mg/dL 2.3-4.7 [id number] 06:02:00 Test Item Value Reference Range Comments MAGNESIUM (BEAKER) (test zfit=043) 1.5 mg/dL 1.6-2.6 BASIC METABOLIC [id number] 06:02:00 Test Item Value Reference Range Comments SODIUM (BEAKER) (test 136 meq/L 136-145 znun=016) POTASSIUM (BEAKER) (test 3.9 meq/L 3.5-5.1 ewlw=826) CHLORIDE (BEAKER) (test 103 meq/L 98-107 zace=695) CO2 (BEAKER) (test 25 meq/L 22-29 qvso=592) BLOOD UREA NITROGEN 13 mg/dL 7-21 (BEAKER) (test ijlv=025) CREATININE (BEAKER) (test 1.67 mg/dL 0.57-1.25 lzva=998) GLUCOSE RANDOM (BEAKER) 74 mg/dL 70-105 (test mnyi=390) CALCIUM (BEAKER) (test 8.7 mg/dL 8.4-10.2 lnrt=434) EGFR (BEAKER) (test 42 mL/min/1.73 sq m ESTIMATED GFR IS NOT milo=4605) ACCURATE CREATININE CLEARANCE IN PREDICTING GLOMERULAR FILTRATION RATE. ESTIMATED GFR IS NOT APPLICABLE FOR DIALYSIS PATIENTS. POCT-GLUCOSE [id number] 21:46:00 Test Item Value Reference Range Comments POC-GLUCOSE METER (BEAKER) 83 mg/dL 70-110 TESTED AT [address] (test qija=1855) [place] [id number] POCT-GLUCOSE [id number] 17:45:00 Test Item Value Reference Range Comments POC-GLUCOSE METER (BEAKER) 83 mg/dL 70-110 TESTED AT [address] (test tpre=1680) [place] [id number] POCT-GLUCOSE [id number] 11:03:00 Test Item Value Reference Range Comments POC-GLUCOSE METER (BEAKER) 152 mg/dL 70-110 TESTED AT [address] (test luny=4910) [place] [id number] CBC W/PLT COUNT & AUTO [id number] 08:54:00 Test Item Value Reference Range Comments WHITE BLOOD CELL COUNT (BEAKER) (test cpcz=674) 14.2 K/ L 4.0-10.0 RED BLOOD CELL COUNT (BEAKER) (test zgvo=994) 2.99 M/ L 4.20-5.80 HEMOGLOBIN (BEAKER) (test aobx=774) 8.6 GM/DL 13.0-16.8 HEMATOCRIT (BEAKER) (test ikja=100) 27.1 % 40.0-50.0 MEAN CORPUSCULAR VOLUME (BEAKER) (test uaxl=125) 90.6 fL 82.0-98.0 MEAN CORPUSCULAR HEMOGLOBIN (BEAKER) (test 28.6 pg 27.0-33.0 vpzo=587) MEAN CORPUSCULAR HEMOGLOBIN CONC (BEAKER) (test 31.6 GM/DL 32.0-36.0 jnfz=241) RED CELL DISTRIBUTION WIDTH (BEAKER) (test 14.6 % 10.3-14.2 bomr=922) PLATELET COUNT (BEAKER) (test lidj=191) 285 K/CU MM 150-430 MEAN PLATELET VOLUME (BEAKER) (test cbop=892) 7.1 fL 6.5-10.5 NUCLEATED RED BLOOD CELLS (BEAKER) (test 0 /100 WBC 0-0 rcap=777) NEUTROPHILS RELATIVE PERCENT (BEAKER) (test 79 % nhjx=214) LYMPHOCYTES RELATIVE PERCENT (BEAKER) (test 10 % kzou=709) MONOCYTES RELATIVE PERCENT (BEAKER) (test 9 % srid=075) EOSINOPHILS RELATIVE PERCENT (BEAKER) (test 2 % wplq=364) BASOPHILS RELATIVE PERCENT (BEAKER) (test 0 % dlhf=309) NEUTROPHILS ABSOLUTE COUNT (BEAKER) (test 11.20 K/ L 1.80-8.00 hvvr=023) LYMPHOCYTES ABSOLUTE COUNT (BEAKER) (test 1.40 K/ L 1.48-4.50 bwdv=820) MONOCYTES ABSOLUTE COUNT (BEAKER) (test 1.30 K/ L 0.00-1.30 inod=042) EOSINOPHILS ABSOLUTE COUNT (BEAKER) (test 0.27 K/ L 0.00-0.50 xreo=654) BASOPHILS ABSOLUTE COUNT (BEAKER) (test 0.04 K/ L 0.00-0.20 dbpn=862) 0.00BASIC METABOLIC [id number] 08:46:00 Test Item Value Reference Range Comments SODIUM (BEAKER) (test 138 meq/L 136-145 wkbo=062) POTASSIUM (BEAKER) (test 3.8 meq/L 3.5-5.1 mmzk=333) CHLORIDE (BEAKER) (test 103 meq/L 98-107 wfnq=135) CO2 (BEAKER) (test 25 meq/L 22-29 dsjw=595) BLOOD UREA NITROGEN 29 mg/dL 7-21 (BEAKER) (test cjzz=468) CREATININE (BEAKER) (test 2.68 mg/dL 0.57-1.25 vvbl=914) GLUCOSE RANDOM (BEAKER) 91 mg/dL 70-105 (test ypib=346) CALCIUM (BEAKER) (test 7.9 mg/dL 8.4-10.2 rjvv=519) EGFR (BEAKER) (test 25 mL/min/1.73 sq m ESTIMATED GFR IS NOT uzta=3096) ACCURATE CREATININE CLEARANCE IN PREDICTING GLOMERULAR FILTRATION RATE. ESTIMATED GFR IS NOT APPLICABLE FOR DIALYSIS PATIENTS. VANCOMYCIN LEVEL, [id number] 07:53:00 Test Item Value Reference Range Comments VANCOMYCIN RANDOM (BEAKER) (test yxjj=529) 15.1 ug/mL Reference Range: No NormalsPOCT-GLUCOSE [id number] 07:52:00 Test Item Value Reference Range Comments POC-GLUCOSE METER (BEAKER) 126 mg/dL 70-110 TESTED AT [address] (test yfbw=8231) [place] [address] [id number] 07:50:00 Test Item Value Reference Range Comments PHOSPHORUS (BEAKER) (test ybjt=189) 2.1 mg/dL 2.3-4.7 [id number] 07:50:00 Test Item Value Reference Range Comments MAGNESIUM (BEAKER) (test xgic=171) 1.7 mg/dL 1.6-2.6 POCT-GLUCOSE [id number] 21:08:00 Test Item Value Reference Range Comments POC-GLUCOSE METER (BEAKER) 234 mg/dL 70-110 TESTED AT [address] (test ruis=8634) [place] [address] POCT-GLUCOSE [id number] 17:02:00 Test Item Value Reference Range Comments POC-GLUCOSE METER (BEAKER) 230 mg/dL 70-110 TESTED AT [address] (test rfqi=9492) [place] [address] SURGICALLY OBTAINED CULTURE + GRAM [id number] 09:26:00 Test Item Value Reference Range Comments CULTURE (BEAKER) (test <1+ Same organism has been ydjn=5569) isolated from cultures(s) of the same body site and collection date. Repeat identification and susceptibility testing performed only after consultation with the clinical microbiology laboratory.Refer to previous culture ofMethicillin resistant Staphylococcus aureus GRAM STAIN RESULT <1+ WBCs (BEAKER) (test jrhy=8932) GRAM STAIN RESULT No organisms seen (BEAKER) (test mwya=982071) SURGICALLY OBTAINED CULTURE + GRAM [id number] 09:25:00 Test Item Value Reference Range Comments CULTURE (BEAKER) (test METHICILLIN RESISTANT <1+ Methicillin vbrk=6420) STAPHYLOCOCCUS AUREUS resistant Staphylococcus aureus Clindamycin (test code=10) Erythromycin (test code=4) Linezolid (test code=40) Oxacillin (test code=14) Rifampin (test code=43) Tetracycline (test code=2) Trimethoprim + Sulfamethoxazole (test code=47) Vancomycin (test code=13) CULTURE (BEAKER) (test METHICILLIN RESISTANT <1+ Methicillin mulr=89115) STAPHYLOCOCCUS AUREUS resistant Staphylococcus aureusof a second type Clindamycin (test code=10) Erythromycin (test code=4) Linezolid (test code=40) Oxacillin (test code=14) Rifampin (test code=43) Tetracycline (test code=2) Trimethoprim + Sulfamethoxazole (test code=47) Vancomycin (test code=13) GRAM STAIN RESULT No White blood cells (BEAKER) (test qetj=6606) seen GRAM STAIN RESULT No organisms seen (BEAKER) (test flds=028274) POCT-GLUCOSE [id number] 08:39:00 Test Item Value Reference Range Comments POC-GLUCOSE METER (BEAKER) 129 mg/dL 70-[address] [facility] [address] [facility] (test wetm=8578) [facility] [address] CBC W/PLT COUNT & AUTO [id number] 06:51:00 Test Item Value Reference Range Comments WHITE BLOOD CELL COUNT (BEAKER) (test dhdt=594) 17.4 K/ L 4.0-10.0 RED BLOOD CELL COUNT (BEAKER) (test ksen=238) 2.99 M/ L 4.20-5.80 HEMOGLOBIN (BEAKER) (test fxkj=810) 8.9 GM/DL 13.0-16.8 HEMATOCRIT (BEAKER) (test czvo=377) 27.1 % 40.0-50.0 MEAN CORPUSCULAR VOLUME (BEAKER) (test onfm=886) 90.6 fL 82.0-98.0 MEAN CORPUSCULAR HEMOGLOBIN (BEAKER) (test 29.6 pg 27.0-33.0 yvdw=409) MEAN CORPUSCULAR HEMOGLOBIN CONC (BEAKER) (test 32.7 GM/DL 32.0-36.0 gwue=203) RED CELL DISTRIBUTION WIDTH (BEAKER) (test 15.3 % 10.3-14.2 cwww=989) PLATELET COUNT (BEAKER) (test drnp=123) 246 K/CU MM 150-430 MEAN PLATELET VOLUME (BEAKER) (test ysyx=802) 6.7 fL 6.5-10.5 NUCLEATED RED BLOOD CELLS (BEAKER) (test 0 /100 WBC 0-0 wcoi=117) NEUTROPHILS RELATIVE PERCENT (BEAKER) (test 83 % oaow=826) LYMPHOCYTES RELATIVE PERCENT (BEAKER) (test 7 % hlxz=083) MONOCYTES RELATIVE PERCENT (BEAKER) (test 9 % tbpk=433) EOSINOPHILS RELATIVE PERCENT (BEAKER) (test 1 % oucl=599) BASOPHILS RELATIVE PERCENT (BEAKER) (test 0 % ydui=185) NEUTROPHILS ABSOLUTE COUNT (BEAKER) (test 14.50 K/ L 1.80-8.00 zych=982) LYMPHOCYTES ABSOLUTE COUNT (BEAKER) (test 1.19 K/ L 1.48-4.50 bxlc=011) MONOCYTES ABSOLUTE COUNT (BEAKER) (test 1.56 K/ L 0.00-1.30 pdja=651) EOSINOPHILS ABSOLUTE COUNT (BEAKER) (test 0.13 K/ L 0.00-0.50 scup=913) BASOPHILS ABSOLUTE COUNT (BEAKER) (test 0.03 K/ L 0.00-0.20 zjhx=523) 0.00BASIC METABOLIC [id number] 05:44:00 Test Item Value Reference Range Comments SODIUM (BEAKER) (test 139 meq/L 136-145 vsai=663) POTASSIUM (BEAKER) (test 3.7 meq/L 3.5-5.1 sizl=707) CHLORIDE (BEAKER) (test 104 meq/L 98-107 eetd=632) CO2 (BEAKER) (test 26 meq/L 22-29 uymf=189) BLOOD UREA NITROGEN 19 mg/dL 7-21 (BEAKER) (test gukt=182) CREATININE (BEAKER) (test 2.08 mg/dL 0.57-1.25 tigo=534) GLUCOSE RANDOM (BEAKER) 127 mg/dL 70-105 (test fyes=189) CALCIUM (BEAKER) (test 7.9 mg/dL 8.4-10.2 socs=536) EGFR (BEAKER) (test 33 mL/min/1.73 sq m ESTIMATED GFR IS NOT ogig=3797) ACCURATE CREATININE CLEARANCE IN PREDICTING GLOMERULAR FILTRATION RATE. ESTIMATED GFR IS NOT APPLICABLE FOR DIALYSIS PATIENTS. [id number] 05:42:00 Test Item Value Reference Range Comments PHOSPHORUS (BEAKER) (test mqsa=470) 2.3 mg/dL 2.3-4.7 [id number] 05:42:00 Test Item Value Reference Range Comments MAGNESIUM (BEAKER) (test egpk=686) 1.7 mg/dL 1.6-2.6 CALCIUM, [id number] 05:21:00 Test Item Value Reference Range Comments CALCIUM IONIZED (BEAKER) (test kdgi=729) 0.99 mmol/L 1.12-1.27 PH, BLOOD (BEAKER) (test rfpi=1561) 7.44 POCT-GLUCOSE [id number] 21:08:00 Test Item Value Reference Range Comments POC-GLUCOSE METER (BEAKER) 184 mg/dL 70-110 TESTED AT [address] (test mhif=1426) [place] [id number] POCT-GLUCOSE [id number] 18:10:00 Test Item Value Reference Range Comments POC-GLUCOSE METER (BEAKER) 214 mg/dL 70-110 TESTED AT [address] (test xosj=7667) [place] [id number] POCT-GLUCOSE [id number] 18:04:00 Test Item Value Reference Range Comments POC-GLUCOSE METER (BEAKER) 169 mg/dL 70-110 TESTED AT [address] (test elmr=6259) [place] [id number] POCT-GLUCOSE [id number] 11:49:00 Test Item Value Reference Range Comments POC-GLUCOSE METER (BEAKER) 126 mg/dL 70-110 TESTED AT [address] (test njdr=0207) [place] [id number] POCT-GLUCOSE [id number] 08:17:00 Test Item Value Reference Range Comments POC-GLUCOSE METER (BEAKER) 119 mg/dL 70-110 TESTED AT [address] (test ikql=3887) [facility] [address] VANCOMYCIN LEVEL, [id number] 06:32:00 Test Item Value Reference Range Comments VANCOMYCIN RANDOM (BEAKER) (test gsnz=245) 13.8 ug/mL Reference Range: No NormalsPOCT-GLUCOSE [id number] 05:54:00 Test Item Value Reference Range Comments POC-GLUCOSE METER (BEAKER) 122 mg/dL 70-110 TESTED AT [address] (test tysz=2179) [facility] [address] B-TYPE NATRIURETIC FACTOR (BNP)2016-12-14 03:44:00 Test Item Value Reference Range Comments B-TYPE NATRIURETIC PEPTIDE (BEAKER) (test 883 pg/mL 0-100 yylk=598) BASIC METABOLIC [id number] 03:40:00 Test Item Value Reference Range Comments SODIUM (BEAKER) (test 140 meq/L 136-145 kzjk=068) POTASSIUM (BEAKER) (test 4.5 meq/L 3.5-5.1 hdnk=939) CHLORIDE (BEAKER) (test 109 meq/L 98-107 qmms=953) CO2 (BEAKER) (test 23 meq/L 22-29 kzdn=208) BLOOD UREA NITROGEN 21 mg/dL 7-21 (BEAKER) (test pgjo=867) CREATININE (BEAKER) (test 2.96 mg/dL 0.57-1.25 cxtr=238) GLUCOSE RANDOM (BEAKER) 118 mg/dL 70-105 (test zvew=720) CALCIUM (BEAKER) (test 7.5 mg/dL 8.4-10.2 lezd=999) EGFR (BEAKER) (test 22 mL/min/1.73 sq m ESTIMATED GFR IS NOT seii=1295) ACCURATE CREATININE CLEARANCE IN PREDICTING GLOMERULAR FILTRATION RATE. ESTIMATED GFR IS NOT APPLICABLE FOR DIALYSIS PATIENTS. [id number] 03:37:00 Test Item Value Reference Range Comments PHOSPHORUS (BEAKER) (test wonk=565) 4.6 mg/dL 2.3-4.7 [id number] 03:37:00 Test Item Value Reference Range Comments MAGNESIUM (BEAKER) (test xnkr=983) 1.7 mg/dL 1.6-2.6 CBC W/PLT COUNT & AUTO [id number] 03:36:00 Test Item Value Reference Range Comments WHITE BLOOD CELL COUNT (BEAKER) (test cnrz=141) 23.8 K/ L 4.0-10.0 RED BLOOD CELL COUNT (BEAKER) (test eqiw=683) 2.80 M/ L 4.20-5.80 HEMOGLOBIN (BEAKER) (test aizm=799) 8.3 GM/DL 13.0-16.8 HEMATOCRIT (BEAKER) (test lgka=140) 25.7 % 40.0-50.0 MEAN CORPUSCULAR VOLUME (BEAKER) (test tkcu=675) 91.8 fL 82.0-98.0 MEAN CORPUSCULAR HEMOGLOBIN (BEAKER) (test 29.6 pg 27.0-33.0 oura=667) MEAN CORPUSCULAR HEMOGLOBIN CONC (BEAKER) (test 32.2 GM/DL 32.0-36.0 fkwb=052) RED CELL DISTRIBUTION WIDTH (BEAKER) (test 14.8 % 10.3-14.2 bfzz=989) PLATELET COUNT (BEAKER) (test ttpr=190) 261 K/CU MM 150-430 MEAN PLATELET VOLUME (BEAKER) (test zlgp=885) 6.4 fL 6.5-10.5 NUCLEATED RED BLOOD CELLS (BEAKER) (test 0 /100 WBC 0-0 rffe=222) NEUTROPHILS RELATIVE PERCENT (BEAKER) (test 88 % qrmq=124) LYMPHOCYTES RELATIVE PERCENT (BEAKER) (test 6 % pinq=112) MONOCYTES RELATIVE PERCENT (BEAKER) (test 6 % pdgh=306) EOSINOPHILS RELATIVE PERCENT (BEAKER) (test 0 % skib=958) BASOPHILS RELATIVE PERCENT (BEAKER) (test 0 % xzoo=451) NEUTROPHILS ABSOLUTE COUNT (BEAKER) (test 21.00 K/ L 1.80-8.00 bzga=075) LYMPHOCYTES ABSOLUTE COUNT (BEAKER) (test 1.16 K/ L 1.48-4.50 mkbz=034) MONOCYTES ABSOLUTE COUNT (BEAKER) (test 1.53 K/ L 0.00-1.30 unwd=103) EOSINOPHILS ABSOLUTE COUNT (BEAKER) (test 0.08 K/ L 0.00-0.50 zeyk=082) BASOPHILS ABSOLUTE COUNT (BEAKER) (test 0.03 K/ L 0.00-0.20 glqi=588) 0.00CALCIUM, [id number] 03:20:00 Test Item Value Reference Range Comments CALCIUM IONIZED (BEAKER) (test uksn=153) 1.02 mmol/L 1.12-1.27 PH, BLOOD (BEAKER) (test wkqj=3038) 7.44 POCT-GLUCOSE [id number] 23:20:00 Test Item Value Reference Range Comments POC-GLUCOSE METER (BEAKER) 129 mg/dL 70-[address] [facility] [address] [facility] (test gpfo=4549) [facility] [address] POCT-GLUCOSE [id number] 16:47:00 Test Item Value Reference Range Comments POC-GLUCOSE METER (BEAKER) 120 mg/dL 70-[address] [facility] [address] (test fnvo=6180) [place] [address] SPIN/CONCENTRATION [id number] 13:52:00 Test Item Value Reference Range Comments CONCENTRATION CHARGED (BEAKER) (test xcae=2939) Done SPIN/CONCENTRATION [id number] 13:52:00 Test Item Value Reference Range Comments CONCENTRATION CHARGED (BEAKER) (test bshu=4483) Done BLOOD GAS, [id number] 08:32:00 Test Item Value Reference Range Comments PH ARTERIAL (BEAKER) (test jxes=465) 7.41 7.35-7.45 PCO2 ARTERIAL (BEAKER) (test wkem=502) 45 mmHg 35-45 PO2 ARTERIAL (BEAKER) (test ptgf=404) 137 mmHg 80-90 O2 SATURATION ARTERIAL (BEAKER) (test gelp=664) 98.7 % 96.0-97.0 HCO3 ARTERIAL (BEAKER) (test wbzk=883) 28 mmol/L 21-29 BASE EXCESS ARTERIAL (BEAKER) (test oukm=291) 2.8 mmol/L -2.0-3.0 PATIENT TEMPERATURE (BEAKER) (test cnwq=0646) 37.0 C FIO2 (BEAKER) (test rojz=8911) 40.0 % CBC W/PLT COUNT & AUTO [id number] 08:04:00 Test Item Value Reference Range Comments WHITE BLOOD CELL COUNT (BEAKER) (test lfmw=525) 23.6 K/ L 4.0-10.0 RED BLOOD CELL COUNT (BEAKER) (test fsia=020) 3.04 M/ L 4.20-5.80 HEMOGLOBIN (BEAKER) (test aekh=205) 8.9 GM/DL 13.0-16.8 HEMATOCRIT (BEAKER) (test heqh=826) 26.9 % 40.0-50.0 MEAN CORPUSCULAR VOLUME (BEAKER) (test vbje=869) 88.6 fL 82.0-98.0 MEAN CORPUSCULAR HEMOGLOBIN (BEAKER) (test 29.4 pg 27.0-33.0 ytku=367) MEAN CORPUSCULAR HEMOGLOBIN CONC (BEAKER) (test 33.2 GM/DL 32.0-36.0 rpno=511) RED CELL DISTRIBUTION WIDTH (BEAKER) (test 15.4 % 10.3-14.2 clha=070) PLATELET COUNT (BEAKER) (test yabl=380) 291 K/CU MM 150-430 MEAN PLATELET VOLUME (BEAKER) (test sqmh=357) 6.9 fL 6.5-10.5 NUCLEATED RED BLOOD CELLS (BEAKER) (test 0 /100 WBC 0-0 dlkg=133) NEUTROPHILS RELATIVE PERCENT (BEAKER) (test 89 % lyho=228) LYMPHOCYTES RELATIVE PERCENT (BEAKER) (test 5 % vtja=058) MONOCYTES RELATIVE PERCENT (BEAKER) (test 6 % wbss=597) EOSINOPHILS RELATIVE PERCENT (BEAKER) (test 0 % iwki=770) BASOPHILS RELATIVE PERCENT (BEAKER) (test 0 % witt=279) NEUTROPHILS ABSOLUTE COUNT (BEAKER) (test 21.00 K/ L 1.80-8.00 owgo=067) LYMPHOCYTES ABSOLUTE COUNT (BEAKER) (test 1.17 K/ L 1.48-4.50 cows=848) MONOCYTES ABSOLUTE COUNT (BEAKER) (test 1.37 K/ L 0.00-1.30 imen=446) EOSINOPHILS ABSOLUTE COUNT (BEAKER) (test 0.04 K/ L 0.00-0.50 dnzq=814) BASOPHILS ABSOLUTE COUNT (BEAKER) (test 0.02 K/ L 0.00-0.20 imgb=785) 0.00(MANUAL DIFFERENTIAL)2016-12-13 08:04:00 Test Item Value Reference Range Comments TOTAL COUNTED (BEAKER) (test egve=4997) WBC MORPHOLOGY (BEAKER) (test cdyj=477) Normal PLT MORPHOLOGY (BEAKER) (test chsx=536) Normal HYPOCHROMIA (BEAKER) (test tvct=424) 1+ few POCT-GLUCOSE [id number] 07:23:00 Test Item Value Reference Range Comments POC-GLUCOSE METER (BEAKER) 116 mg/dL 70-110 TESTED AT [address] (test vdyo=9739) [facility] [address] POCT-GLUCOSE [id number] 06:31:00 Test Item Value Reference Range Comments POC-GLUCOSE METER (BEAKER) 115 mg/dL 70-110 TESTED AT [address] (test xmjk=5388) [facility] [address] CALCIUM, [id number] 05:09:00 Test Item Value Reference Range Comments CALCIUM IONIZED (BEAKER) (test drww=387) 1.06 mmol/L 1.12-1.27 PH, BLOOD (BEAKER) (test vdbq=8741) 7.46 BASIC METABOLIC [id number] 04:49:00 Test Item Value Reference Range Comments SODIUM (BEAKER) (test 139 meq/L 136-145 dsxg=659) POTASSIUM (BEAKER) (test 4.5 meq/L 3.5-5.1 lrjf=930) CHLORIDE (BEAKER) (test 106 meq/L 98-107 gtni=517) CO2 (BEAKER) (test 26 meq/L 22-29 whwg=067) BLOOD UREA NITROGEN 14 mg/dL 7-21 (BEAKER) (test hxgj=620) CREATININE (BEAKER) (test 2.20 mg/dL 0.57-1.25 fqnd=947) GLUCOSE RANDOM (BEAKER) 138 mg/dL 70-105 (test kbik=041) CALCIUM (BEAKER) (test 7.8 mg/dL 8.4-10.2 ehyq=025) EGFR (BEAKER) (test 31 mL/min/1.73 sq m ESTIMATED GFR IS NOT snqv=7230) ACCURATE CREATININE CLEARANCE IN PREDICTING GLOMERULAR FILTRATION RATE. ESTIMATED GFR IS NOT APPLICABLE FOR DIALYSIS PATIENTS. [id number] 04:47:00 Test Item Value Reference Range Comments PHOSPHORUS (BEAKER) (test fbkb=934) 3.8 mg/dL 2.3-4.7 [id number] 04:47:00 Test Item Value Reference Range Comments MAGNESIUM (BEAKER) (test ypkm=177) 1.6 mg/dL 1.6-2.6 POCT-GLUCOSE [id number] 00:17:00 Test Item Value Reference Range Comments POC-GLUCOSE METER (BEAKER) 165 mg/dL 70-110 TESTED AT [place] [id number] [facility] (test rjbt=3311) [facility] [address] POCT-GLUCOSE [id number] 19:50:00 Test Item Value Reference Range Comments POC-GLUCOSE METER (BEAKER) 150 mg/dL 70-110 TESTED AT [address] (test ezzw=7659) [facility] [address] GLUCOSE-STAT [id number] 16:40:00 Test Item Value Reference Range Comments GLUCOSE RANDOM (BEAKER) (test hher=298) 93 mg/dL 70-110 SODIUM NA-STAT [id number] 16:40:00 Test Item Value Reference Range Comments SODIUM (BEAKER) (test oaxv=728) 136 meq/L 135-148 POTASSIUM-STAT [id number] 16:40:00 Test Item Value Reference Range Comments POTASSIUM (BEAKER) (test pnay=083) 3.8 meq/L 3.6-5.5 BLOOD GAS, [id number] 16:40:00 Test Item Value Reference Range Comments PH ARTERIAL (BEAKER) (test ihlp=749) 7.45 7.35-7.45 PCO2 ARTERIAL (BEAKER) (test rosp=078) 46 mmHg 35-45 PO2 ARTERIAL (BEAKER) (test qydp=817) 371 mmHg 80-90 O2 SATURATION ARTERIAL (BEAKER) (test immz=303) 99.8 % 96.0-97.0 HCO3 ARTERIAL (BEAKER) (test hxna=968) 31 mmol/L 21-29 BASE EXCESS ARTERIAL (BEAKER) (test mtsf=975) 6.0 mmol/L -2.0-3.0 PATIENT TEMPERATURE (BEAKER) (test pwdb=8159) 37.0 C FIO2 (BEAKER) (test tbgu=7264) 60.0 % HGB/HCT (H&H) - STAT [id number] 16:40:00 Test Item Value Reference Range Comments HEMOGLOBIN (BEAKER) (test lmqm=893) 6.3 g/dL 13.0-16.8 HEMATOCRIT (BEAKER) (test ivgw=139) 19.0 % 40.0-50.0 GLUCOSE-STAT [id number] 16:14:00 Test Item Value Reference Range Comments GLUCOSE RANDOM (BEAKER) (test drle=122) 89 mg/dL 70-110 [id number] 13:22:00 Test Item Value Reference Range Comments PARTIAL THROMBOPLASTIN TIME (BEAKER) (test 80.1 seconds 22.5-36.0 dzbl=873) POCT-GLUCOSE [id number] 11:57:00 Test Item Value Reference Range Comments POC-GLUCOSE METER (BEAKER) 82 mg/dL 70-110 TESTED AT [address] (test lgpp=9506) [facility] [address] POCT-GLUCOSE [id number] 08:15:00 Test Item Value Reference Range Comments POC-GLUCOSE METER (BEAKER) 90 mg/dL 70-110 TESTED AT [place] [id number] [facility] (test iczp=1202) [facility] [address] CBC W/PLT COUNT & AUTO [id number] 05:50:00 Test Item Value Reference Range Comments WHITE BLOOD CELL COUNT (BEAKER) (test cjug=839) 13.9 K/ L 4.0-10.0 RED BLOOD CELL COUNT (BEAKER) (test moti=332) 2.42 M/ L 4.20-5.80 HEMOGLOBIN (BEAKER) (test qtgi=617) 7.2 GM/DL 13.0-16.8 HEMATOCRIT (BEAKER) (test bagn=259) 21.8 % 40.0-50.0 MEAN CORPUSCULAR VOLUME (BEAKER) (test zwgf=560) 90.3 fL 82.0-98.0 MEAN CORPUSCULAR HEMOGLOBIN (BEAKER) (test 29.5 pg 27.0-33.0 rjug=922) MEAN CORPUSCULAR HEMOGLOBIN CONC (BEAKER) (test 32.7 GM/DL 32.0-36.0 urut=006) RED CELL DISTRIBUTION WIDTH (BEAKER) (test 15.9 % 10.3-14.2 iqmt=700) PLATELET COUNT (BEAKER) (test scas=110) 282 K/CU MM 150-430 MEAN PLATELET VOLUME (BEAKER) (test xkym=851) 6.8 fL 6.5-10.5 NUCLEATED RED BLOOD CELLS (BEAKER) (test 0 /100 WBC 0-0 tgqp=409) NEUTROPHILS RELATIVE PERCENT (BEAKER) (test 78 % bcun=989) LYMPHOCYTES RELATIVE PERCENT (BEAKER) (test 11 % yjjr=782) MONOCYTES RELATIVE PERCENT (BEAKER) (test 9 % gxci=935) EOSINOPHILS RELATIVE PERCENT (BEAKER) (test 1 % mwqt=866) BASOPHILS RELATIVE PERCENT (BEAKER) (test 0 % scsp=288) NEUTROPHILS ABSOLUTE COUNT (BEAKER) (test 10.80 K/ L 1.80-8.00 frkf=898) LYMPHOCYTES ABSOLUTE COUNT (BEAKER) (test 1.57 K/ L 1.48-4.50 vxvw=204) MONOCYTES ABSOLUTE COUNT (BEAKER) (test 1.30 K/ L 0.00-1.30 ginu=079) EOSINOPHILS ABSOLUTE COUNT (BEAKER) (test 0.20 K/ L 0.00-0.50 znoo=356) BASOPHILS ABSOLUTE COUNT (BEAKER) (test 0.04 K/ L 0.00-0.20 uswx=659) 0.00CALCIUM, [id number] 05:43:00 Test Item Value Reference Range Comments CALCIUM IONIZED (BEAKER) (test rqhm=598) 0.97 mmol/L 1.12-1.27 PH, BLOOD (BEAKER) (test gaes=5879) 7.51 BASIC METABOLIC [id number] 05:35:00 Test Item Value Reference Range Comments SODIUM (BEAKER) (test 132 meq/L 136-145 vnck=799) POTASSIUM (BEAKER) (test 4.2 meq/L 3.5-5.1 mffq=776) CHLORIDE (BEAKER) (test 102 meq/L 98-107 latk=825) CO2 (BEAKER) (test 22 meq/L 22-29 vujh=199) BLOOD UREA NITROGEN 26 mg/dL 7-21 (BEAKER) (test sxoi=404) CREATININE (BEAKER) (test 3.57 mg/dL 0.57-1.25 vxoh=300) GLUCOSE RANDOM (BEAKER) 69 mg/dL 70-105 (test pboh=423) CALCIUM (BEAKER) (test 7.6 mg/dL 8.4-10.2 qwof=416) EGFR (BEAKER) (test 18 mL/min/1.73 sq m ESTIMATED GFR IS NOT qgfk=3066) ACCURATE CREATININE CLEARANCE IN PREDICTING GLOMERULAR FILTRATION RATE. ESTIMATED GFR IS NOT APPLICABLE FOR DIALYSIS PATIENTS. [id number] 05:31:00 Test Item Value Reference Range Comments PHOSPHORUS (BEAKER) (test maks=940) 3.7 mg/dL 2.3-4.7 [id number] 05:31:00 Test Item Value Reference Range Comments MAGNESIUM (BEAKER) (test khmo=623) 1.8 mg/dL 1.6-2.6 [id number] 05:30:00 Test Item Value Reference Range Comments PARTIAL THROMBOPLASTIN TIME (BEAKER) (test 44.4 seconds 22.5-36.0 ikhb=149) PROTHROMBIN [id number] 05:29:00 Test Item Value Reference Range Comments PROTIME (BEAKER) (test shez=449) 14.5 seconds 11.7-14.7 INR (BEAKER) (test dwxr=702) 1.1 <=5.9 RECOMMENDED COUMADIN/WARFARIN INR THERAPY RANGESSTANDARD DOSE: 2.0 - 3.0 Includes: PROPHYLAXIS forvenous thrombosis, systemic embolization; TREATMENT for venous thrombosis and/or pulmonary embolus.HIGH RISK: Target INR is 2.5-3.5 for patients with mechanical heart valves.POCT-GLUCOSE [id number] 22:10:00 Test Item Value Reference Range Comments POC-GLUCOSE METER (BEAKER) 106 mg/dL 70-110 TESTED AT [address] (test jkjg=7487) [place] [address] POCT-GLUCOSE [id number] 17:31:00 Test Item Value Reference Range Comments POC-GLUCOSE METER (BEAKER) 114 mg/dL 70-110 TESTED AT [address] (test kybh=3511) [place] [address] [id number] 15:36:00 Test Item Value Reference Range Comments PARTIAL THROMBOPLASTIN TIME (BEAKER) (test 38.5 seconds 22.5-36.0 mpwh=044) PROTHROMBIN [id number] 15:35:00 Test Item Value Reference Range Comments PROTIME (BEAKER) (test oiiv=593) 14.6 seconds 11.7-14.7 INR (BEAKER) (test dlio=213) 1.2 <=5.9 RECOMMENDED COUMADIN/WARFARIN INR THERAPY RANGESSTANDARD DOSE: 2.0 - 3.0 Includes: PROPHYLAXIS forvenous thrombosis, systemic embolization; TREATMENT for venous thrombosis and/or pulmonary embolus.HIGH RISK: Target INR is 2.5-3.5 for patients with mechanical heart valves.POCT-GLUCOSE [id number] 12:12:00 Test Item Value Reference Range Comments POC-GLUCOSE METER (BEAKER) 130 mg/dL 70-110 TESTED AT [address] (test liyr=0452) [place] [id number] POCT-GLUCOSE [id number] 08:04:00 Test Item Value Reference Range Comments POC-GLUCOSE METER (BEAKER) 96 mg/dL 70-110 TESTED AT [address] (test ahgm=0074) [facility] [address] VANCOMYCIN LEVEL, [id number] 07:30:00 Test Item Value Reference Range Comments VANCOMYCIN RANDOM (BEAKER) (test niyd=574) 21.2 ug/mL Reference Range: No NormalsPOCT-GLUCOSE [id number] 20:25:00 Test Item Value Reference Range Comments POC-GLUCOSE METER (BEAKER) 152 mg/dL 70-110 TESTED AT [address] (test alko=7639) [place] [id number] POCT-GLUCOSE [id number] 17:23:00 Test Item Value Reference Range Comments POC-GLUCOSE METER (BEAKER) 161 mg/dL 70-110 TESTED AT [address] (test petz=1983) [place] [id number] [id number] 13:34:00 Test Item Value Reference Range Comments PROTIME (BEAKER) (test uavv=609) 15.4 seconds 11.7-14.7 INR (BEAKER) (test zxdc=318) 1.2 <=5.9 PARTIAL THROMBOPLASTIN TIME (BEAKER) (test 51.5 seconds 22.5-36.0 oviu=458) RECOMMENDED COUMADIN/WARFARIN INR THERAPY RANGESSTANDARD DOSE: 2.0 - 3.0 Includes: PROPHYLAXIS forvenous thrombosis, systemic embolization; TREATMENT for venous thrombosis and/or pulmonary embolus.HIGH RISK: Target INR is 2.5-3.5 for patients with mechanical heart valves.POCT-GLUCOSE [id number] 12:11:00 Test Item Value Reference Range Comments POC-GLUCOSE METER (BEAKER) 140 mg/dL 70-110 TESTED AT [address] (test eide=7201) [place] [id number] CBC W/PLT COUNT & AUTO [id number] 08:02:00 Test Item Value Reference Range Comments WHITE BLOOD CELL COUNT (BEAKER) (test huay=423) 14.8 K/ L 4.0-10.0 RED BLOOD CELL COUNT (BEAKER) (test twms=733) 2.40 M/ L 4.20-5.80 HEMOGLOBIN (BEAKER) (test fkrq=618) 7.0 GM/DL 13.0-16.8 HEMATOCRIT (BEAKER) (test cdpc=304) 21.6 % 40.0-50.0 MEAN CORPUSCULAR VOLUME (BEAKER) (test hxkv=643) 90.0 fL 82.0-98.0 MEAN CORPUSCULAR HEMOGLOBIN (BEAKER) (test 29.2 pg 27.0-33.0 yxlt=672) MEAN CORPUSCULAR HEMOGLOBIN CONC (BEAKER) (test 32.5 GM/DL 32.0-36.0 ugpq=082) RED CELL DISTRIBUTION WIDTH (BEAKER) (test 15.8 % 10.3-14.2 ncid=365) PLATELET COUNT (BEAKER) (test ykss=827) 276 K/CU MM 150-430 MEAN PLATELET VOLUME (BEAKER) (test srhf=247) 6.8 fL 6.5-10.5 NUCLEATED RED BLOOD CELLS (BEAKER) (test 0 /100 WBC 0-0 yxfl=763) NEUTROPHILS RELATIVE PERCENT (BEAKER) (test 80 % fuaa=191) LYMPHOCYTES RELATIVE PERCENT (BEAKER) (test 10 % zfks=678) MONOCYTES RELATIVE PERCENT (BEAKER) (test 9 % sjbg=959) EOSINOPHILS RELATIVE PERCENT (BEAKER) (test 1 % gndm=133) BASOPHILS RELATIVE PERCENT (BEAKER) (test 0 % tlwf=891) NEUTROPHILS ABSOLUTE COUNT (BEAKER) (test 11.80 K/ L 1.80-8.00 mxqg=235) LYMPHOCYTES ABSOLUTE COUNT (BEAKER) (test 1.49 K/ L 1.48-4.50 igvh=114) MONOCYTES ABSOLUTE COUNT (BEAKER) (test 1.28 K/ L 0.00-1.30 qfme=313) EOSINOPHILS ABSOLUTE COUNT (BEAKER) (test 0.17 K/ L 0.00-0.50 panh=140) BASOPHILS ABSOLUTE COUNT (BEAKER) (test 0.04 K/ L 0.00-0.20 rpss=592) 0.00VANCOMYCIN LEVEL, [id number] 07:43:00 Test Item Value Reference Range Comments VANCOMYCIN RANDOM (BEAKER) (test lxsi=634) 31.1 ug/mL Reference Range: No NormalsBASIC METABOLIC [id number] 07:30:00 Test Item Value Reference Range Comments SODIUM (BEAKER) (test 134 meq/L 136-145 hwpz=513) POTASSIUM (BEAKER) (test 3.6 meq/L 3.5-5.1 daet=459) CHLORIDE (BEAKER) (test 100 meq/L 98-107 gibo=166) CO2 (BEAKER) (test 27 meq/L 22-29 ynun=845) BLOOD UREA NITROGEN 12 mg/dL 7-21 (BEAKER) (test jyxm=577) CREATININE (BEAKER) (test 1.88 mg/dL 0.57-1.25 oall=475) GLUCOSE RANDOM (BEAKER) 109 mg/dL 70-105 (test zulz=730) CALCIUM (BEAKER) (test 7.7 mg/dL 8.4-10.2 sjpl=631) EGFR (BEAKER) (test 37 mL/min/1.73 sq m ESTIMATED GFR IS NOT cbdv=0865) ACCURATE CREATININE CLEARANCE IN PREDICTING GLOMERULAR FILTRATION RATE. ESTIMATED GFR IS NOT APPLICABLE FOR DIALYSIS PATIENTS. [id number] 07:25:00 Test Item Value Reference Range Comments PHOSPHORUS (BEAKER) (test legs=129) 2.9 mg/dL 2.3-4.7 [id number] 07:25:00 Test Item Value Reference Range Comments MAGNESIUM (BEAKER) (test csmo=176) 1.3 mg/dL 1.6-2.6 POCT-GLUCOSE [id number] 07:18:00 Test Item Value Reference Range Comments POC-GLUCOSE METER (BEAKER) 107 mg/dL 70-[address] [facility] [address] [facility] (test pxvg=7945) [facility] [address] CALCIUM, [id number] 06:57:00 Test Item Value Reference Range Comments CALCIUM IONIZED (BEAKER) (test afkb=111) 1.04 mmol/L 1.12-1.27 PH, BLOOD (BEAKER) (test orgk=3238) 7.44 BLOOD [id number] 17:00:00 Test Item Value Reference Range Comments CULTURE (BEAKER) (test slhd=1707) No growth in 5 days BLOOD [id number] 17:00:00 Test Item Value Reference Range Comments CULTURE (BEAKER) (test bvyo=9655) No growth in 5 days POCT-GLUCOSE [id number] 12:01:00 Test Item Value Reference Range Comments POC-GLUCOSE METER (BEAKER) 128 mg/dL 70-[address] [facility] [address] [facility] (test qqcv=5003) [facility] [address] POCT-GLUCOSE [id number] 07:48:00 Test Item Value Reference Range Comments POC-GLUCOSE METER (BEAKER) 100 mg/dL 70-110 TESTED AT [place] [id number] [facility] (test fjfr=6735) [facility] [address] VANCOMYCIN LEVEL, [id number] 05:36:00 Test Item Value Reference Range Comments VANCOMYCIN RANDOM (BEAKER) (test vrcq=777) 26.8 ug/mL Reference Range: No NormalsSPUTUM CULTURE + GRAM [id number] 00:09:00 Test Item Value Reference Range Comments CULTURE (BEAKER) (test Oropharyngeal contamination, nyjd=8520) specimen rejected. Recollect requested. GRAM STAIN RESULT (BEAKER) No WBCs (test sohx=9067) GRAM STAIN RESULT (BEAKER) >25 epithelial cells (test qurc=44548) GRAM STAIN RESULT (BEAKER) 4+ gram positive rods (test ndah=30868) GRAM STAIN RESULT (BEAKER) 4+ gram positive cocci in pairs (test ngzv=968228) GRAM STAIN RESULT (BEAKER) 4+ budding yeast (test rvzv=027130) POCT-GLUCOSE [id number] 20:17:00 Test Item Value Reference Range Comments POC-GLUCOSE METER (BEAKER) 111 mg/dL 70-[address] [facility] [address] [facility] (test giit=0252) [facility] [address] TSH/FREE T4 IF [id number] 18:39:00 Test Item Value Reference Range Comments THYROID STIMULATING HORMONE (BEAKER) (test 3.14 uIU/mL 0.35-4.94 tqop=509) VITAMIN B12 AND [id number] 18:39:00 Test Item Value Reference Range Comments VITAMIN B12 (BEAKER) (test bfme=383) 1407 pg/mL 213-816 FOLATE (BEAKER) (test gtmg=419) 16.4 ng/mL >=7.0 Effective 09/08/2014: Folate Reference Range ChangeNew: >=7.0 Previous: & gt;=[id number] 18:12:00 Test Item Value Reference Range Comments CALCIUM (BEAKER) (test hhzn=236) 8.2 mg/dL 8.4-10.2 PROTHROMBIN [id number] 18:07:00 Test Item Value Reference Range Comments PROTIME (BEAKER) (test afqb=074) 15.5 seconds 11.7-14.7 INR (BEAKER) (test qzjt=000) 1.2 <=5.9 RECOMMENDED COUMADIN/WARFARIN INR THERAPY RANGESSTANDARD DOSE: 2.0 - 3.0 Includes: PROPHYLAXIS forvenous thrombosis, systemic embolization; TREATMENT for venous thrombosis and/or pulmonary embolus.HIGH RISK: Target INR is 2.5-3.5 for patients with mechanical heart valves.[id number] 18:06:00 Test Item Value Reference Range Comments PHOSPHORUS (BEAKER) (test ewpi=327) 3.4 mg/dL 2.3-4.7 [id number] 18:06:00 Test Item Value Reference Range Comments MAGNESIUM (BEAKER) (test hrtu=184) 1.5 mg/dL 1.6-2.6 HEPATIC FUNCTION [id number] 18:06:00 Test Item Value Reference Range Comments TOTAL PROTEIN (BEAKER) (test scvq=118) 5.9 gm/dL 6.0-8.3 ALBUMIN (BEAKER) (test qzsd=1174) 2.3 g/dL 3.5-5.0 BILIRUBIN TOTAL (BEAKER) (test fjkx=101) 0.4 mg/dL 0.2-1.2 BILIRUBIN DIRECT (BEAKER) (test aajl=379) 0.2 mg/dL 0.1-0.5 ALKALINE PHOSPHATASE (BEAKER) (test qpmy=790) 118 U/L 40-150 AST (SGOT) (BEAKER) (test dwgr=608) 11 U/L 5-34 ALT (SGPT) (BEAKER) (test lydb=300) 7 U/L 6-55 [id number] 17:57:00 Test Item Value Reference Range Comments AMMONIA (BEAKER) (test utlf=355) 23 mol/L 18-72 POCT-GLUCOSE [id number] 17:55:00 Test Item Value Reference Range Comments POC-GLUCOSE METER (BEAKER) 137 mg/dL 70-110 TESTED AT [address] (test whvp=8782) [facility] [address] POCT-GLUCOSE [id number] 17:01:00 Test Item Value Reference Range Comments POC-GLUCOSE METER (BEAKER) 62 mg/dL 70-110 TESTED AT [place] [id number] [facility] (test sbrc=5884) [facility] [address] [id number] 15:09:00 Test Item Value Reference Range Comments SODIUM (BEAKER) (test edep=806) 138 meq/L 136-145 POTASSIUM (BEAKER) (test 4.0 meq/L 3.5-5.1 Specimen slightly hemolyzed nyra=423) CHLORIDE (BEAKER) (test 105 meq/L 98-107 nxlq=343) CO2 (BEAKER) (test pcgl=998) 23 meq/L 22-29 BLOOD GAS, [id number] 14:56:00 Test Item Value Reference Range Comments PH ARTERIAL (BEAKER) (test dwpa=803) 7.53 7.35-7.45 PCO2 ARTERIAL (BEAKER) (test qizg=263) 35 mmHg 35-45 PO2 ARTERIAL (BEAKER) (test oans=974) 70 mmHg 80-90 O2 SATURATION ARTERIAL (BEAKER) (test jqyp=894) 95.5 % 96.0-97.0 HCO3 ARTERIAL (BEAKER) (test cmva=689) 28 mmol/L 21-29 BASE EXCESS ARTERIAL (BEAKER) (test rwhf=052) 5.2 mmol/L -2.0-3.0 PATIENT TEMPERATURE (BEAKER) (test dhmr=8471) 37.3 C FIO2 (BEAKER) (test bglz=0852) 21.0 % CBC W/PLT COUNT & AUTO [id number] 14:56:00 Test Item Value Reference Range Comments WHITE BLOOD CELL COUNT (BEAKER) (test zgga=703) 18.1 K/ L 4.0-10.0 RED BLOOD CELL COUNT (BEAKER) (test uyni=646) 2.43 M/ L 4.20-5.80 HEMOGLOBIN (BEAKER) (test hhor=730) 7.3 GM/DL 13.0-16.8 HEMATOCRIT (BEAKER) (test kidi=285) 22.2 % 40.0-50.0 MEAN CORPUSCULAR VOLUME (BEAKER) (test rjtn=573) 91.7 fL 82.0-98.0 MEAN CORPUSCULAR HEMOGLOBIN (BEAKER) (test 30.0 pg 27.0-33.0 anba=847) MEAN CORPUSCULAR HEMOGLOBIN CONC (BEAKER) (test 32.7 GM/DL 32.0-36.0 hmml=163) RED CELL DISTRIBUTION WIDTH (BEAKER) (test 15.7 % 10.3-14.2 kiue=850) PLATELET COUNT (BEAKER) (test ymtp=446) 290 K/CU MM 150-430 MEAN PLATELET VOLUME (BEAKER) (test iaqp=036) 6.9 fL 6.5-10.5 NUCLEATED RED BLOOD CELLS (BEAKER) (test 0 /100 WBC 0-0 qgvj=676) NEUTROPHILS RELATIVE PERCENT (BEAKER) (test 84 % knyp=664) LYMPHOCYTES RELATIVE PERCENT (BEAKER) (test 8 % ykpi=877) MONOCYTES RELATIVE PERCENT (BEAKER) (test 8 % owno=270) EOSINOPHILS RELATIVE PERCENT (BEAKER) (test 0 % qfce=251) BASOPHILS RELATIVE PERCENT (BEAKER) (test 0 % fdwf=161) NEUTROPHILS ABSOLUTE COUNT (BEAKER) (test 15.10 K/ L 1.80-8.00 xdhj=378) LYMPHOCYTES ABSOLUTE COUNT (BEAKER) (test 1.51 K/ L 1.48-4.50 qlee=214) MONOCYTES ABSOLUTE COUNT (BEAKER) (test 1.43 K/ L 0.00-1.30 kgfm=499) EOSINOPHILS ABSOLUTE COUNT (BEAKER) (test 0.03 K/ L 0.00-0.50 omyq=625) BASOPHILS ABSOLUTE COUNT (BEAKER) (test 0.02 K/ L 0.00-0.20 egvk=592) 0.00POCT-GLUCOSE [id number] 12:19:00 Test Item Value Reference Range Comments POC-GLUCOSE METER (BEAKER) 75 mg/dL 70-[address] [facility] [address] [facility] (test zxuo=0937) [facility] [address] [id number] 09:59:00 Test Item Value Reference Range Comments HAPTOGLOBIN (BEAKER) (test asls=353) > mg/dL 14- Effective 09/08/2014: Reference Range ChangeNew: 14-258 Previous: 36- 195LACTATE DEHYDROGENASE (LDH)2016-12-08 09:56:00 Test Item Value Reference Range Comments LACTATE DEHYDROGENASE (BEAKER) (test cyqm=554) 234 U/L 125-220 [id number] 09:35:00 Test Item Value Reference Range Comments FIBRINOGEN LEVEL (BEAKER) (test ktvh=000) 554 mg/dl 225-434 BASIC METABOLIC [id number] 08:56:00 Test Item Value Reference Range Comments SODIUM (BEAKER) (test 139 meq/L 136-145 qqcg=229) POTASSIUM (BEAKER) (test 3.0 meq/L 3.5-5.1 aeee=938) CHLORIDE (BEAKER) (test 114 meq/L 98-107 kanb=276) CO2 (BEAKER) (test 18 meq/L 22-29 apic=952) BLOOD UREA NITROGEN 14 mg/dL 7-21 (BEAKER) (test izgo=181) CREATININE (BEAKER) (test 1.68 mg/dL 0.57-1.25 gmel=180) GLUCOSE RANDOM (BEAKER) 65 mg/dL 70-105 (test tybd=623) CALCIUM (BEAKER) (test 6.3 mg/dL 8.4-10.2 btaa=361) EGFR (BEAKER) (test 42 mL/min/1.73 sq m ESTIMATED GFR IS NOT qwjs=8515) ACCURATE CREATININE CLEARANCE IN PREDICTING GLOMERULAR FILTRATION RATE. ESTIMATED GFR IS NOT APPLICABLE FOR DIALYSIS PATIENTS. CBC W/PLT COUNT & AUTO [id number] 08:55:00 Test Item Value Reference Range Comments WHITE BLOOD CELL COUNT (BEAKER) (test ubwc=883) 12.8 K/ L 4.0-10.0 RED BLOOD CELL COUNT (BEAKER) (test fccg=879) 1.79 M/ L 4.20-5.80 HEMOGLOBIN (BEAKER) (test xvig=536) 5.4 GM/DL 13.0-16.8 HEMATOCRIT (BEAKER) (test quwf=098) 16.7 % 40.0-50.0 MEAN CORPUSCULAR VOLUME (BEAKER) (test gpwh=110) 93.5 fL 82.0-98.0 MEAN CORPUSCULAR HEMOGLOBIN (BEAKER) (test 30.2 pg 27.0-33.0 cayd=838) MEAN CORPUSCULAR HEMOGLOBIN CONC (BEAKER) (test 32.3 GM/DL 32.0-36.0 vsro=327) RED CELL DISTRIBUTION WIDTH (BEAKER) (test 15.9 % 10.3-14.2 ywdj=953) PLATELET COUNT (BEAKER) (test vnwt=426) 211 K/CU MM 150-430 MEAN PLATELET VOLUME (BEAKER) (test erei=347) 6.8 fL 6.5-10.5 NUCLEATED RED BLOOD CELLS (BEAKER) (test 0 /100 WBC 0-0 vdpc=900) NEUTROPHILS RELATIVE PERCENT (BEAKER) (test 82 % twik=776) LYMPHOCYTES RELATIVE PERCENT (BEAKER) (test 8 % ygyj=531) MONOCYTES RELATIVE PERCENT (BEAKER) (test 9 % xpad=023) EOSINOPHILS RELATIVE PERCENT (BEAKER) (test 0 % gygl=130) BASOPHILS RELATIVE PERCENT (BEAKER) (test 0 % twll=816) NEUTROPHILS ABSOLUTE COUNT (BEAKER) (test 10.50 K/ L 1.80-8.00 gsvj=616) LYMPHOCYTES ABSOLUTE COUNT (BEAKER) (test 1.08 K/ L 1.48-4.50 fqbx=981) MONOCYTES ABSOLUTE COUNT (BEAKER) (test 1.17 K/ L 0.00-1.30 hzmv=104) EOSINOPHILS ABSOLUTE COUNT (BEAKER) (test 0.06 K/ L 0.00-0.50 slcg=677) BASOPHILS ABSOLUTE COUNT (BEAKER) (test 0.04 K/ L 0.00-0.20 jvbi=492) 0.00LACTIC ACID, VENOUS, WHOLE [id number] 08:52:00 Test Item Value Reference Range Comments LACTATE BLOOD VENOUS (2) (BEAKER) (test 0.5 mmol/L 0.5-2.2 nlet=5268) Effective 02/23/2016: Units/Reference Range ChangeNew: 0.5-2.2 mmol/L Previous: 5 -20 mg/dLPOCT-GLUCOSE [id number] 07:40:00 Test Item Value Reference Range Comments POC-GLUCOSE METER (BEAKER) 80 mg/dL 70-[address] [facility] [address] (test oumv=1236) [facility] [address] POCT-GLUCOSE [id number] 21:47:00 Test Item Value Reference Range Comments POC-GLUCOSE METER (BEAKER) 97 mg/dL 70-110 TESTED AT [address] (test bkee=5510) [facility] [address] POCT-GLUCOSE [id number] 17:45:00 Test Item Value Reference Range Comments POC-GLUCOSE METER (BEAKER) 115 mg/dL 70-110 TESTED AT [address] (test iiij=7935) [facility] [address] POCT-GLUCOSE [id number] 12:56:00 Test Item Value Reference Range Comments POC-GLUCOSE METER (BEAKER) 120 mg/dL 70-110 TESTED AT [address] (test fdpj=1341) [facility] [address] POCT-GLUCOSE [id number] 12:56:00 Test Item Value Reference Range Comments POC-GLUCOSE METER (BEAKER) 107 mg/dL 70-110 TESTED AT [address] (test wyxx=5441) [facility] [address] CBC W/PLT COUNT & AUTO [id number] 11:18:00 Test Item Value Reference Range Comments WHITE BLOOD CELL COUNT (BEAKER) (test uxqo=365) 21.4 K/ L 4.0-10.0 RED BLOOD CELL COUNT (BEAKER) (test nwix=665) 2.63 M/ L 4.20-5.80 HEMOGLOBIN (BEAKER) (test gmzp=565) 7.5 GM/DL 13.0-16.8 HEMATOCRIT (BEAKER) (test gntu=770) 24.1 % 40.0-50.0 MEAN CORPUSCULAR VOLUME (BEAKER) (test jeyn=816) 91.8 fL 82.0-98.0 MEAN CORPUSCULAR HEMOGLOBIN (BEAKER) (test 28.6 pg 27.0-33.0 kkan=600) MEAN CORPUSCULAR HEMOGLOBIN CONC (BEAKER) (test 31.1 GM/DL 32.0-36.0 kcnl=697) RED CELL DISTRIBUTION WIDTH (BEAKER) (test 15.4 % 10.3-14.2 syjd=895) PLATELET COUNT (BEAKER) (test zchw=630) 297 K/CU MM 150-430 MEAN PLATELET VOLUME (BEAKER) (test rkcf=044) 7.0 fL 6.5-10.5 NUCLEATED RED BLOOD CELLS (BEAKER) (test 0 /100 WBC 0-0 fgtr=819) NEUTROPHILS RELATIVE PERCENT (BEAKER) (test 88 % txym=580) LYMPHOCYTES RELATIVE PERCENT (BEAKER) (test 6 % yuvv=227) MONOCYTES RELATIVE PERCENT (BEAKER) (test 6 % hrxb=698) EOSINOPHILS RELATIVE PERCENT (BEAKER) (test 0 % lrpl=731) BASOPHILS RELATIVE PERCENT (BEAKER) (test 0 % nczg=006) NEUTROPHILS ABSOLUTE COUNT (BEAKER) (test 18.90 K/ L 1.80-8.00 fcna=086) LYMPHOCYTES ABSOLUTE COUNT (BEAKER) (test 1.25 K/ L 1.48-4.50 ythr=928) MONOCYTES ABSOLUTE COUNT (BEAKER) (test 1.26 K/ L 0.00-1.30 gntm=066) EOSINOPHILS ABSOLUTE COUNT (BEAKER) (test 0.05 K/ L 0.00-0.50 lvfc=705) BASOPHILS ABSOLUTE COUNT (BEAKER) (test 0.01 K/ L 0.00-0.20 okpr=588) 0.000.520.000.000.560.000.000.000.00(MANUAL DIFFERENTIAL)2016-12-07 11:18:00 Test Item Value Reference Range Comments TOTAL COUNTED (BEAKER) (test cbwo=5938) CATHETER TIP [id number] 09:38:00 Test Item Value Reference Range Comments CULTURE (BEAKER) (test METHICILLIN RESISTANT 15-29 Colonies On smrq=8951) STAPHYLOCOCCUS AUREUS Direct Plate Methicillin resistant Staphylococcus aureus Clindamycin (test code=10) Erythromycin (test code=4) Linezolid (test code=40) Oxacillin (test code=14) Rifampin (test code=43) Tetracycline (test code=2) Trimethoprim + Sulfamethoxazole (test code=47) Vancomycin (test code=13) CULTURE (BEAKER) (test <15 Colonies On Direct agwg=[id number]) Plate Methicillin resistant Staphylococcus aureusof a second type CALCIUM, [id number] 09:12:00 Test Item Value Reference Range Comments CALCIUM IONIZED (BEAKER) (test xpuk=492) 1.04 mmol/L 1.12-1.27 PH, BLOOD (BEAKER) (test ndqv=5424) 7.40 BASIC METABOLIC [id number] 07:52:00 Test Item Value Reference Range Comments SODIUM (BEAKER) (test 134 meq/L 136-145 uenp=840) POTASSIUM (BEAKER) (test 4.1 meq/L 3.5-5.1 fmyn=484) CHLORIDE (BEAKER) (test 103 meq/L 98-107 owjc=607) CO2 (BEAKER) (test 20 meq/L 22-29 zntx=401) BLOOD UREA NITROGEN 37 mg/dL 7-21 (BEAKER) (test qwtg=813) CREATININE (BEAKER) (test 3.25 mg/dL 0.57-1.25 iaxd=163) GLUCOSE RANDOM (BEAKER) 129 mg/dL 70-105 (test bykm=878) CALCIUM (BEAKER) (test 8.1 mg/dL 8.4-10.2 ahld=405) EGFR (BEAKER) (test 20 mL/min/1.73 sq m ESTIMATED GFR IS NOT aotm=5688) ACCURATE CREATININE CLEARANCE IN PREDICTING GLOMERULAR FILTRATION RATE. ESTIMATED GFR IS NOT APPLICABLE FOR DIALYSIS PATIENTS. [id number] 07:48:00 Test Item Value Reference Range Comments PHOSPHORUS (BEAKER) (test rqfw=538) 4.8 mg/dL 2.3-4.7 [id number] 07:48:00 Test Item Value Reference Range Comments MAGNESIUM (BEAKER) (test ejee=531) 1.9 mg/dL 1.6-2.6 ANAEROBIC [id number] 02:42:00 Test Item Value Reference Range Comments CULTURE (BEAKER) (test dovz=8761) No anaerobes isolated POCT-GLUCOSE [id number] 20:57:00 Test Item Value Reference Range Comments POC-GLUCOSE METER (BEAKER) 191 mg/dL 70-110 TESTED AT [address] (test fyrt=1062) [facility] [address] VANCOMYCIN LEVEL, [id number] 17:35:00 Test Item Value Reference Range Comments VANCOMYCIN RANDOM (BEAKER) (test ccbm=607) 21.9 ug/mL Reference Range: No NormalsPOCT-GLUCOSE [id number] 13:28:00 Test Item Value Reference Range Comments POC-GLUCOSE METER (BEAKER) 202 mg/dL 70-[address] [facility] [address] [place] [address] (test ypge=2415) [facility] [address] POCT-GLUCOSE [id number] 08:30:00 Test Item Value Reference Range Comments POC-GLUCOSE METER (BEAKER) 144 mg/dL 70-[address] [facility] [address] (test numx=2599) [facility] [address] BASIC METABOLIC [id number] 07:04:00 Test Item Value Reference Range Comments SODIUM (BEAKER) (test 134 meq/L 136-145 jgmz=334) POTASSIUM (BEAKER) (test 3.8 meq/L 3.5-5.1 mkuh=976) CHLORIDE (BEAKER) (test 104 meq/L 98-107 kdyi=316) CO2 (BEAKER) (test 21 meq/L 22-29 ewnu=438) BLOOD UREA NITROGEN 33 mg/dL 7-21 (BEAKER) (test ixoa=910) CREATININE (BEAKER) (test 2.91 mg/dL 0.57-1.25 rphq=852) GLUCOSE RANDOM (BEAKER) 124 mg/dL 70-105 (test hkdq=103) CALCIUM (BEAKER) (test 7.8 mg/dL 8.4-10.2 qtah=921) EGFR (BEAKER) (test 22 mL/min/1.73 sq m ESTIMATED GFR IS NOT qnro=5619) ACCURATE CREATININE CLEARANCE IN PREDICTING GLOMERULAR FILTRATION RATE. ESTIMATED GFR IS NOT APPLICABLE FOR DIALYSIS PATIENTS. PROTHROMBIN [id number] 07:03:00 Test Item Value Reference Range Comments PROTIME (BEAKER) (test fxud=469) 14.7 seconds 11.7-14.7 INR (BEAKER) (test xtks=078) 1.2 <=5.9 RECOMMENDED COUMADIN/WARFARIN INR THERAPY RANGESSTANDARD DOSE: 2.0 - 3.0 Includes: PROPHYLAXIS forvenous thrombosis, systemic embolization; TREATMENT for venous thrombosis and/or pulmonary embolus.HIGH RISK: Target INR is 2.5-3.5 for patients with mechanical heart valves.[id number] 07:01:00 Test Item Value Reference Range Comments PHOSPHORUS (BEAKER) (test xnhx=380) 3.9 mg/dL 2.3-4.7 [id number] 07:01:00 Test Item Value Reference Range Comments MAGNESIUM (BEAKER) (test lazx=279) 1.7 mg/dL 1.6-2.6 CALCIUM, [id number] 06:45:00 Test Item Value Reference Range Comments CALCIUM IONIZED (BEAKER) (test dphs=234) 1.00 mmol/L 1.12-1.27 PH, BLOOD (BEAKER) (test araq=7618) 7.43 POCT-GLUCOSE [id number] 21:06:00 Test Item Value Reference Range Comments POC-GLUCOSE METER (BEAKER) 167 mg/dL 70-110 TESTED AT [address] (test iqdl=6885) [place] [address] POCT-GLUCOSE [id number] 17:43:00 Test Item Value Reference Range Comments POC-GLUCOSE METER (BEAKER) 212 mg/dL 70-110 TESTED AT [address] (test vxqf=8690) [place] [address]
[2018-08-01 15:47] LABS: Absolute Lymphocytes (CBC) 0.5 K/uL (0.7-4.9); Absolute Monocytes 1.1 K/uL (0.1-1.3); Absolute Neutrophil 9.6 K/uL (1.8-8.0); Basophils % 0.7 % (0-1.3); Hematocrit 30.8 % (39.6-49.0); Lymphocytes % 4.6 % (15.3-44.8); MCH 24.9 pg (27.0-35.0); MCV 79.6 fL (80-100); MPV 7.3 fL (7.6-11.3); Monocytes % 9.4 % (3.3-12.3); RBC Red Blood Cell Count 3.87 M/uL (4.33-5.43)
[2018-08-01 15:48] LABS: Protime INR 1.04
[2018-08-01 16:17] LABS: Anisocytosis 2+; Blood Morphology Comment NOTED (NOT SEEN); Poikilocytosis 2+; Spherocyte 1+; Stomatocytes 1+
[2018-08-01 16:33] LABS: Platelet Estimate ADEQ
[2018-08-01 16:34] LABS: Urine White Blood Cell Casts OK
--- NOTE | 2018-08-01 16:39 | RAD REPORT ---
EXAM DESCRIPTION: RADChest Single View08/01/2018 4:12 pm CLINICAL HISTORY: Chest pain COMPARISON: March 2018 FINDINGS: The lungs appear clear of acute infiltrate. The heart is mildly to moderately enlarged. Central venous catheter remains in place . Upper lobe vessels are prominent indicative of pulmonary venous hypertension
[2018-08-01 16:40] LABS: Potassium 3.9 mmol/L (3.5-5.1)
[2018-08-01 16:41] LABS: Bilirubin Direct 0.1 mg/dL (0-0.2); Bilirubin Total 0.4 mg/dL (0.2-1.0); Magnesium 2.1 mg/dL (1.8-2.4); Protein, Total 7.3 g/dL (6.4-8.2); Troponin (Emerg Dept Use Only) 0.02 ng/mL (0.0-0.045)
--- NOTE | 2018-08-01 16:51 | EKG ---
Test Date: 2018-08-01 Test Time: 14:36:12 Plating Equipment Tender: KECIA MEASUREMENT RESULTS: Intervals: Rate: 66 OH: 154 QRSD: 128 QT: 476 QTc: 499 [place]: P: 49 OH: 154 QRS: 73 T: 52 INTERPRETIVE STATEMENTS: Normal sinus rhythm Possible Left atrial enlargement Nonspecific intraventricular block Nonspecific T wave abnormality Abnormal ECG Compared to ECG 03/24/2018 04:59:18 T-wave abnormality now present Atrial fibrillation no longer present Ventricular premature complex(es) no longer present Myocardial infarct finding no longer present ST (T wave) deviation no longer present Electronically Signed On 08-01-18 16:50:58 CDT by Júnior Napoles
--- NOTE | 2018-08-01 17:09 | EDPHYS ---
Physician Documentation [facility] Name: Federico Martinez Age: 58 yrs Sex: Male : 1960 Arrival Date: 08/01/2018 Time: 14:32 Bed 20 Private MD: ED Physician Kalia Hooks HPI: 08/02 07:58 This 58 yrs old Male presents to ER via EMS with complaints of Generalized kdr pain and chest pain. 07:58 The patient or guardian reports chest pain that is located primarily in the anterior kdr chest wall, left. Onset: this morning. The pain radiates to the left shoulder. Associated signs and symptoms: Pertinent positives: Generalized weakness, Pertinent negatives: abdominal pain, diaphoresis, dizziness, headache, nausea, near syncope, palpitations, syncope, vomiting. The chest pain is described as burning, dull, a pressure. Duration: The patient or guardian reports a single episode, that is still ongoing, and unchanged. Modifying factors: The symptoms are alleviated by nothing. the symptoms are aggravated by nothing. Severity of pain: At its worst the pain was mild just prior to arrival, in the emergency department the pain is unchanged. The patient has experienced similar episodes in the past, chronically. Historical: - Allergies: 08/01 14:47 No Known Allergies; aj1 - Home Meds: 14:47 simethicone Oral as needed [Active]; ramipril 10 mg Oral cap 1 cap nightly [Active]; aj1 carvedilol 6.25 mg Oral tab 1 tab 2 times per day [Active]; Protonix 40 mg Oral TbEC 1 tab 2 times per day [Active]; Cymbalta 30 mg oral cpDR 1 cap once daily [Active]; Zofran (as hydrochloride) 4 mg Oral tab 1 tabs every 4 hours as needed [Active]; fentanyl 25 mcg/hr Topical pt72 1 patch every 72 hours [Active]; Protem 7.5-325 mg Oral tab 1 tab every 6 hours as needed [Active]; ferrous sulfate 324 mg (65 mg iron) Oral TbEC daily [Active]; albuterol sulfate 2.5 mg /3 mL (0.083 %) Inhl nebu 3 mL q6hrs prn [Active]; arformoterol inhalation inhalation 2 times per day [Active]; Geodon 20 mg Oral cap 1 cap 2 times per day [Active]; amiodarone 200 mg Oral tab 1 tab once daily [Active]; nifedipine 60 mg Oral tr24 1 tab twice a day [Active]; Atrovent Inhl q 4 hrs prn sob [Active]; Vitamin D3 5,000 unit oral tab daily [Active]; - PMHx: 14:47 Anemia; Atherosclerotic heart disease; COPD; Hypertension; CHF; osteomyelitis; aj1 Parkinsons; pressure ulcer of left ankle stage II; Pressure ulcer of right ankle, stage II; Sacral Pressure Ulcer Stage III; Asthma; Schizophrenia; Post Laminectomy Syndrome; Paraplegia; insomnia; Anxiety; Bipolar disorder; Dementia; Depression; Diabetes - IDDM; ESRD; GERD; GI Hemorrhage; - PSHx: 14:40 back; rb1 - Immunization history:: Adult Immunizations up to date. - Social history:: Smoking status: Patient/guardian denies using tobacco. - Ebola Screening: : Patient negative for fever greater than or equal to 101.5 degrees Fahrenheit, and additional compatible Ebola Virus Disease symptoms. ROS: 08/02 07:58 Constitutional: Negative for fever, chills, and weight loss, Eyes: Negative for injury, kdr pain, redness, and discharge, ENT: Negative for injury, pain, and discharge, Neck: Negative for injury, pain, and swelling, Respiratory: Negative for shortness of breath, cough, wheezing, and pleuritic chest pain, Abdomen/GI: Negative for abdominal pain, nausea, vomiting, diarrhea, and constipation, Back: Negative for injury and pain, : Negative for injury, bleeding, discharge, and swelling, MS/Extremity: Negative for injury and deformity, Skin: Negative for injury, rash, and discoloration, Neuro: Negative for headache, weakness, numbness, tingling, and seizure activity. Psych: Negative for depression, anxiety, suicide ideation, homicidal ideation, and hallucinations, Allergy/Immunology: Negative for hives, rash, and allergies, Endocrine: Negative for neck swelling, polydipsia, polyuria, polyphagia, and marked weight changes, Hematologic/Lymphatic: Negative for swollen nodes, abnormal bleeding, and unusual bruising. Cardiovascular: Positive for chest pain, Negative for edema, orthopnea, palpitations. Exam: 07:58 Constitutional: This is a well developed, well nourished patient who is awake, alert, kdr and in no acute distress. Head/Face: Normocephalic, atraumatic. Eyes: Pupils equal round and reactive to light, extra-ocular motions intact. Lids and lashes normal. Conjunctiva and sclera are non-icteric and not injected. Cornea within normal limits. Periorbital areas with no swelling, redness, or edema. Neck: Trachea midline, no thyromegaly or masses palpated, and no cervical lymphadenopathy. Supple, full range of motion without nuchal rigidity, or vertebral point tenderness. No Meningismus. Chest/axilla: Normal chest wall appearance and motion. Nontender with no deformity. No lesions are appreciated. Cardiovascular: Regular rate and rhythm with a normal S1 and S2. No gallops, murmurs, or rubs. Normal PMI, no JVD. No pulse deficits. Respiratory: Lungs have equal breath sounds bilaterally, clear to auscultation and percussion. No rales, rhonchi or wheezes noted. No increased work of breathing, no retractions or nasal flaring. Abdomen/GI: Soft, non-tender, with normal bowel sounds. No distension or tympany. No guarding or rebound. No evidence of tenderness throughout. Back: No spinal tenderness. No costovertebral tenderness. Full range of motion. Skin: Warm, dry with normal turgor. Normal color with no rashes, no lesions, and no evidence of cellulitis. MS/ Extremity: Pulses equal, no cyanosis. Neurovascular intact. Full, normal range of motion. Psych: Awake, alert, with orientation to person, place and time. Behavior, mood, and affect are within normal limits. 07:58 Neuro: Orientation: is normal, Mentation: is normal, Cranial nerves: is grossly normal based on the patient's age, Motor: is grossly normal based on the patient's age, no acute changes, Sensation: no obvious gross deficits. Vital Signs: 08/01 14:40 BP 193 / 81; Pulse 81; Resp 20; Temp 99.3(O); Pulse Ox 99% on 3 lpm NC; Weight 86.18 rb1 kg; Height 5 ft. 8 in. (172.72 cm) (R); Pain 07/31; 15:30 BP 190 / 78; Pulse 63; Resp 19; Pulse Ox 100% on R/A; rb1 16:30 BP 183 / 75; Pulse 58; Resp 19; Pulse Ox 100% on 3 lpm NC; rb1 17:30 BP 159 / 78; Pulse 60; Resp 19; Pulse Ox 100% on 3 lpm NC; rb1 18:00 BP 179 / 77; Pulse 52; Resp 17; Pulse Ox 100% on 3 lpm NC; rb1 14:40 Body Mass Index 28.89 (86.18 kg, 172.72 cm) rb1 MDM: 17:08 Patient medically screened. kdr 08/02 07:58 RADHA Risk Score: 1 - Three or more CAD risk factors, 1- Known CAD, TOTAL SCORE = 2. kdr Data reviewed: vital signs, nurses notes. 08/01 15:22 Order name: Basic Metabolic Panel; Complete Time: 16:49 kdr 08/01 15:22 Order name: CBC with Diff; Complete Time: 16:49 kdr 08/01 15:22 Order name: LFT's; Complete Time: 16:49 kdr 08/01 15:22 Order name: Magnesium; Complete Time: 16:49 kdr 08/01 15:22 Order name: NT PRO-BNP; Complete Time: 16:49 kdr 08/01 15:22 Order name: PT-INR; Complete Time: 16:49 kdr 08/01 15:22 Order name: Troponin (emerg Dept Use Only); Complete Time: 16:49 kdr 08/01 15:22 Order name: XRAY Chest (1 view); Complete Time: 16:49 kdr 08/01 15:22 Order name: EKG; Complete Time: 15:23 kdr 08/01 15:22 Order name: Cardiac monitoring; Complete Time: 17:10 kdr 08/01 15:22 Order name: EKG - Nurse/Tech; Complete Time: 17:10 kdr 08/01 15:22 Order name: IV Saline Lock; Complete Time: 16:53 kdr 08/01 15:22 Order name: Labs collected and sent; Complete Time: 16:54 kdr 08/01 15:50 Order name: CBC Smear Scan; Complete Time: 16:49 EDMS 08/01 15:22 Order name: O2 Per Protocol; Complete Time: 17:10 kdr 08/01 15:22 Order name: O2 Sat Monitoring; Complete Time: 17:10 kdr Administered Medications: No medications were administered Disposition: 08/01/18 17:08 Discharged to Home. Impression: Chest pain, unspecified. - Condition is Stable. - Discharge Instructions: Nonspecific Chest Pain, [id number]. - Medication Reconciliation Form, Thank You Letter, SBAR form form. - Follow up: Private Physician; When: 2 - 3 days; Reason: If symptoms return, Further diagnostic work-up, Recheck today's complaints, Continuance of care, Re-evaluation by your physician. Follow up: Rafy Ascencio MD; When: Tomorrow; Reason: Further diagnostic work-up, Recheck today's complaints, Continuance of care, Re-evaluation by your physician. - Problem is an acute exacerbation. - Symptoms have improved. Signatures: Dispatcher [employer] EDMS Staci Patel RN RN aj1 Kalia Hooks MD MD kdr Krenek, Amber, RN RN ak1 Breana García RN RN rb1 Corrections: (The following items were deleted from the chart) 08/01 20:44 17:08 08/01/2018 17:08 Discharged to Home. Impression: Chest pain, unspecified. ak1 Condition is Stable. Forms are Medication Reconciliation Form, Thank You Letter, Antibiotic Education, Prescription Opioid Use. Follow up: Private Physician; When: 2 - 3 days; Reason: If symptoms return, Further diagnostic work-up, Recheck today's complaints, Continuance of care, Re-evaluation by your physician. Follow up: Rafy Ascencio; When: Tomorrow; Reason: Further diagnostic work-up, Recheck today's complaints, Continuance of care, Re-evaluation by your physician. Problem is an acute exacerbation. Symptoms have improved. kdr
--- NOTE | 2018-08-01 17:09 | ER ---
Nurse's Notes [facility] Name: Federico Martinez Age: 58 yrs Sex: Male : 1960 Arrival Date: 08/01/2018 Time: 14:32 Bed 20 Private MD: Diagnosis: Chest pain, unspecified Presentation: 08/01 14:36 Presenting complaint: EMS states: They were called out for chest pain and shortness of aj1 breath. When they arrived patient reports that he is having pain all over that started when he got out of dialysis today at 11:00. Patient reports left sided chest pain that is worse on inspiration. Breath sounds CTA. Patient reports SOB, but states that he is always short of breath. Reports nausea, anxiety, malaise. FSBS by EMS 166. Transition of care: patient was not received from another setting of care. Onset of symptoms was August 01, 2018 at 11:00. Risk Assessment: Do you want to hurt yourself or someone else? Patient reports no desire to harm self or others. Care prior to arrival: None. 14:36 Method Of Arrival: EMS: [facility] aj1 14:36 Acuity: CHARLES 3 aj1 14:40 Initial Sepsis Screen: Does the patient meet any 2 criteria? No. Patient's initial rb1 sepsis screen is negative. Does the patient have a suspected source of infection? No. Patient's initial sepsis screen is negative. Triage Assessment: 14:47 General: Appears in no apparent distress. Behavior is calm, cooperative, appropriate aj1 for age. Pain: Complains of pain in generalized pain. Historical: - Allergies: 14:47 No Known Allergies; aj1 - Home Meds: 14:47 simethicone Oral as needed [Active]; ramipril 10 mg Oral cap 1 cap nightly [Active]; aj1 carvedilol 6.25 mg Oral tab 1 tab 2 times per day [Active]; Protonix 40 mg Oral TbEC 1 tab 2 times per day [Active]; Cymbalta 30 mg oral cpDR 1 cap once daily [Active]; Zofran (as hydrochloride) 4 mg Oral tab 1 tabs every 4 hours as needed [Active]; fentanyl 25 mcg/hr Topical pt72 1 patch every 72 hours [Active]; [place] 7.5-325 mg Oral tab 1 tab every 6 hours as needed [Active]; ferrous sulfate 324 mg (65 mg iron) Oral TbEC daily [Active]; albuterol sulfate 2.5 mg /3 mL (0.083 %) Inhl nebu 3 mL q6hrs prn [Active]; arformoterol inhalation inhalation 2 times per day [Active]; Geodon 20 mg Oral cap 1 cap 2 times per day [Active]; amiodarone 200 mg Oral tab 1 tab once daily [Active]; nifedipine 60 mg Oral tr24 1 tab twice a day [Active]; Atrovent Inhl q 4 hrs prn sob [Active]; Vitamin D3 5,000 unit oral tab daily [Active]; - PMHx: 14:47 Anemia; Atherosclerotic heart disease; COPD; Hypertension; CHF; osteomyelitis; aj1 Parkinsons; pressure ulcer of left ankle stage II; Pressure ulcer of right ankle, stage II; Sacral Pressure Ulcer Stage III; Asthma; Schizophrenia; Post Laminectomy Syndrome; Paraplegia; insomnia; Anxiety; Bipolar disorder; Dementia; Depression; Diabetes - IDDM; ESRD; GERD; GI Hemorrhage; - PSHx: 14:40 back; rb1 - Immunization history:: Adult Immunizations up to date. - Social history:: Smoking status: Patient/guardian denies using tobacco. - Ebola Screening: : Patient negative for fever greater than or equal to 101.5 degrees Fahrenheit, and additional compatible Ebola Virus Disease symptoms. Screenin:40 Abuse screen: Denies threats or abuse. Nutritional screening: No deficits noted. rb1 Tuberculosis screening: No symptoms or risk factors identified. Fall Risk No fall in past 12 months (0 pts). Secondary diagnosis (15 points) impaired mobility, IV access (20 points). Ambulatory Aid- Crutches/Cane/Walker (15 pts). Gait- Impaired (20 pts.). Mental Status- Oriented to own ability (0 pts). Total Abarca Fall Scale indicates High Risk Score (45 or more points). Fall prevention measures have been instituted. Side Rails Up X 2 Placed Close to Nursing Station 1:1 Attendant Assigned Frequent Obs/Assessments Occuring Family Present and informed to notify staff if the need to leave the bedside As available patient and family educated on Fall Prevention Program and Strategies. Assessment: 14:40 General: Appears in no apparent distress. comfortable, Behavior is calm, cooperative, rb1 Reports fever for 1-2 days. Pain: Complains of pain in generalized Pain currently is 10 out of 10 on a pain scale. Neuro: Level of Consciousness is awake, alert, obeys commands, Oriented to person, place, time, situation. Neuro: Cardiovascular: Capillary refill < 3 seconds is brisk in bilateral fingers. Respiratory: Airway is patent Respiratory effort is even, unlabored, Respiratory pattern is regular, symmetrical. Respiratory: Reports shortness of breath at rest. GI: Reports diarrhea. : No signs and/or symptoms were reported regarding the genitourinary system. Derm: Skin is dry, Skin is normal, Skin temperature is warm. Musculoskeletal: Range of motion: intact in upper extremeties Paralysis from the waist down. 15:20 Reassessment: Called [phone] and spoke with Betzaida. Informed her per pt. request rb1 that the pt. had been brought to the hospital for generalized pain and SOB. Betzaida stated, "We will be heading up that way around 4:00." Pt. has been updated on the situation. 16:20 Reassessment: Patient appears in no apparent distress at this time. No changes from rb1 previously documented assessment. 17:20 Reassessment: Patient appears in no apparent distress at this time. Patient and/or rb1 family updated on plan of care and expected duration. Pain level reassessed. Patient is alert, oriented x 3, equal unlabored respirations, skin warm/dry/pink. Family at bedside. 17:30 Reassessment: Called report to LIZABETH Hamilton at [facility]. Information from the SBAR was rb1 given. All questions asked and answered. LIZABETH Hamilton will call for transportation and call me back with an update. Discharge pending due to transportation. 17:50 Reassessment: LIZABETH Hamilton from [facility] called to inform me that transportation will be rb1 here in about 30 minutes to transport the pt. to the facility. 18:00 Reassessment: Patient appears in no apparent distress at this time. Patient and/or rb1 family updated on plan of care and expected duration. Pain level reassessed. Patient is alert, oriented x 3, equal unlabored respirations, skin warm/dry/pink. Changed soiled diaper. Dark brown, formed medium stool was noted. Pt. tolerated well. 19:05 Reassessment: Called [facility] to get an update on ETA for transportation, but they rb1 did not answer the phone. 19:07 Reassessment: Attempted to call [facility] again regarding transportation but still rb1 there was no answer. 19:30 Reassessment: [facility] called and stated [facility] ETA 30 mins. [facility] ak1 contacted, [facility] stated ETA 30 mins. Vital Signs: 14:40 BP 193 / 81; Pulse 81; Resp 20; Temp 99.3(O); Pulse Ox 99% on 3 lpm NC; Weight 86.18 rb1 kg; Height 5 ft. 8 in. (172.72 cm) (R); Pain 10/10; 15:30 BP 190 / 78; Pulse 63; Resp 19; Pulse Ox 100% on R/A; rb1 16:30 BP 183 / 75; Pulse 58; Resp 19; Pulse Ox 100% on 3 lpm NC; rb1 17:30 BP 159 / 78; Pulse 60; Resp 19; Pulse Ox 100% on 3 lpm NC; rb1 18:00 BP 179 / 77; Pulse 52; Resp 17; Pulse Ox 100% on 3 lpm NC; rb1 14:40 Body Mass Index 28.89 (86.18 kg, 172.72 cm) [facility] ED Course: 14:32 Patient arrived in ED. hb 14:38 Triage completed. aj1 14:38 Breana García, RN is Primary Nurse. rb1 14:40 Patient has correct armband on for positive identification. Bed in low position. Call rb1 light in reach. Side rails up X2. Pulse ox on. NIBP on. 14:40 Maintain EMS IV. Dressing intact. Good blood return noted. Site clean \\T\\ dry. Gauge \\T\\ rb 1 site: 18 g Right AC. 14:42 Kalia Hooks MD is Attending Physician. kdr 14:47 Arm band placed on. aj1 14:49 EKG done, by landfill gas technician. reviewed by Kalia Hooks MD. sm3 16:13 XRAY Chest (1 view) In Process Unspecified. EDMS 17:08 Rafy Ascencio MD is Referral Physician. kdr 19:00 Report given to LIZABETH Triplett. rb1 19:18 No provider procedures requiring assistance completed. ak1 19:45 IV discontinued, intact, bleeding controlled, No redness/swelling at site. Pressure ds4 dressing applied. Administered Medications: No medications were administered Output: 18:00 Stool: 1 (Formed Stool) ; Total: 0ml. rb1 Outcome: 17:08 Discharge ordered by . kdr 19:31 Condition: stable ak1 20:44 Patient left the ED. ak1 Signatures: Dispatcher [employer] Staci Laird RN RN aj1 Kalia Hooks MD MD kdr Cesar Bueno ds4 Ioana Johnson RN RN ak1 Breana García RN RN rb1 Anca Shoemaker RN RN [facility]
[2018-08-01 21:04] VITALS: TEMP 99.3
[2018-08-01 21:05] VITALS: O2SAT 100
[2018-08-01 21:09] VITALS: BP 179/77
== END 2018-08-01 20:44 | disposition home or self-care (01) ==
LOC: ER 14:29
DX: R07.9 Chest pain, unspecified (principal); I50.9 Heart failure, unspecified; J44.9 Chronic obstructive pulmonary disease, unspecified; F32.9 Major depressive disorder, single episode, unspecified; E11.22 Type 2 diabetes mellitus with diabetic chronic kidney disease; I12.0 Hypertensive chronic kidney disease with stage 5 chronic kidney disease or end stage renal disease; N18.6 End stage renal disease
CPT/HCPCS: 36415; 71045; 80048; 80076; 83735; 83880; 84484; 85025; 85610; 93005; 99284

== ENCOUNTER 2018-09-11 10:48 | Emergency (ER) | payer MEDICAID ==
--- OUTSIDE RECORDS SUMMARY | 2018-09-11 10:50 | XMS REPORT | Clinical Summary ---
:1960 Author Organization [facility] Address [address] [place] [address] Care Team Providers Name Role Phone Unavailable Primary Care Provider Unavailable Allergies No Known Allergies Medications Medication Sig Dispensed Refills Start Date End Date Status donepezil (ARICEPT) Take 10 mg by mouth 0 Active 10 MG tablet nightly. atorvastatin Take 10 mg by mouth 0 Active (LIPITOR) 10 MG daily. tablet venlafaxine Take 150 mg by 0 Active (EFFEXOR-XR) 150 MG mouth 2 (two) times 24 hr capsule daily . ferrous gluconate Take 324 mg by 0 Active (FERGON) 324 MG mouth daily with tablet breakfast. zolpidem (AMBIEN) 5 Take 5 mg by mouth 0 Active MG tablet every night as needed for Insomnia. pramipexole (MIRAPEX) Take 0.25 mg by 0 Active 0.25 MG tablet mouth nightly. multivitamin Take 1 tablet by 0 Active (MULTIVITAMIN) per mouth daily. tablet cholecalciferol, Take 5,000 Units by 0 Active vitamin D3, 2,000 mouth daily . unit Cap amLODIPine (NORVASC) Take 10 mg by mouth 0 Active 10 MG tablet daily. acetaminophen Take 500 mg by 0 Active (TYLENOL) 500 MG mouth every 6 (six) tablet hours as needed for Pain. ALPRAZolam (XANAX) 2 Take 1 mg by mouth 0 Active MG tablet daily as needed for Sleep (before dialysis). lurasidone 80 mg Tab Take 100 mg by 0 Active mouth nightly . nitroglycerin Place 0.4 mg under 0 Active (NITROSTAT) 0.4 MG SL the tongue every 5 tablet (five) minutes as needed for Chest pain Put 1 pill under tongue every 5min as needed for chest pain.No more than 3 doses in 15min.Call 911 if pain is unrelieved 5min after 1st dose . HYDROcodone-acetamino Take 1 tablet by 0 Active phen (NORCO 7.5-325) mouth every 6 (six) 7.5-325 mg per hours as needed for tabletIndications: Pain. Pain pantoprazole Take 40 mg by mouth 0 Active (PROTONIX) 40 MG daily. tabletIndications: gastroesophageal reflux disease ranolazine (RANEXA) Take 500 mg by 0 Active 500 MG 12 hr tablet mouth 2 (two) times daily Two tabs . ziprasidone (GEODON) Take 20 mg by mouth 0 Active 20 MG capsule 2 (two) times daily with breakfast and dinner. fentaNYL (DURAGESIC) Place 1 patch onto 0 Active 25 mcg/hr patch the skin every third day. doxazosin (CARDURA) 8 Take 8 mg by mouth 0 Active MG tablet nightly. balsam reta-castor Apply 1 application 0 12/21/2016 Active oil (VENELEX) 41-267 topically 2 (two) mg/gram Oint times daily as needed (wound care). epoetin mendy Inject 2 mLs (8,000 1 mL 0 12/22/2016 Active (EPOGEN,PROCRIT) Units total) 4,000 unit/mL subcutaneously 3 injection (three) times a week after dialysis. heparin injection Inject 1 mL (5,000 1 mL 0 12/21/2016 Active 5,000 units/mL for Units total) DVT subcutaneously prophylaxis/dialysis every 12 (twelve) lock/IV bolus hours. gabapentin Take 1 capsule (100 0 12/21/2016 Active (NEURONTIN) 100 MG mg total) by mouth capsule 2 (two) times daily. losartan (COZAAR) 50 Take 1 tablet (50 0 12/21/2016 Active MG tablet mg total) by mouth 2 (two) times daily. insulin 70/30, Inject 7 Units 10 mL 0 12/21/2016 Active insulin NPH-insulin subcutaneously 2 regular, (HUMULIN (two) times daily 70/30,NOVOLIN 70/30) before meals. 100 unit/mL (70-30) injectionIndications: Diabetes Mellitus hydrALAZINE Take 1 tablet (100 0 12/21/2016 Active (APRESOLINE) 100 MG mg total) by mouth tablet 3 (three) times daily. carvedilol (COREG) 25 Take 1 tablet (25 0 12/21/2016 MG tablet mg total) by mouth 8 2 (two) times daily. ipratropium-albuterol Take 3 mLs by 0 12/21/2016 (DUO-NEB) 0.5 mg-3 nebulization every 8 mg(2.5 mg base)/3 mL 6 (six) hours as nebulizer solution needed for Wheezing for up to 360 days. 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 Paraplegic spinal paralysis 12/26/2016 Sacral decubitus ulcer 12/26/2016 ESRD on hemodialysis 12/26/2016 Acute bilateral low back pain without sciatica 11/30/2016 Back pain 11/29/2016 Complications, dialysis, catheter, mechanical 04/06/2016 Angina effort 09/04/2014 CAD (coronary artery disease) 09/04/2014 Social History Tobacco Use Types Packs/Day Years Used Date Former Smoker 0 Alcohol Use Drinks/Week oz/Week Comments No Sex Assigned at Date Recorded Not on file Job Start Date Occupation Industry Not on file Not on file Not on file Travel History Travel Start Travel End No recent travel history available. Last Filed Vital Signs Not on file Plan of Treatment Not on file Implants Implanted Type Area Zone Maintenance Technician Device Shelf Model / Identifier Expiration Serial / Lot Date Infusion Set Bone Infuseii Lg [id number] - [id number] Bone N/A: MEDTRONIC: SPINAL 08/22/2018 [id number] / Implanted: Qty: 1 on 12/12/2016 by Eduardo Ruggiero MD Spine BIOLOGICS / Lumbar [id number] Matrix Floseal Hemo W/O Ndl 10 [id number] - [id number] Cement/Fi N/A: MA: BIOSCI 04/20/2019 [id number] / Implanted: Qty: 2 on 12/12/2016 by Eduardo Ruggiero MD ller/Adhe Spine / sive Lumbar [id number] Bone Putty Stimulan 10 620-010 - [id number] Cement/Fi N/A: BIOCOMPOSITES 08/21/2019 [id number] / Implanted: Qty: 1 on 12/12/2016 by Eduardo Ruggiero MD ller/Adhe Spine / sive Lumbar 10/16-R300/301 Connector Set Screw Joints N/A: MEDTRONIC [id number] / Implanted: Qty: 1 on 12/12/2016 by Eduardo Ruggiero MD Spine / Lumbar Scr Mas 8.5x90 [id number] - [id number] Spine N/A: MEDTRONIC:SPINE: [id number] / Implanted: Qty: 1 on 12/12/2016 by Eduardo Ruggiero MD Spine SOFAMOR DANEK / Lumbar [id number] Ballast Mas 8.5x80 Spine N/A: MEDTRONIC [id number] / Implanted: Qty: 1 on 12/12/2016 by Eduardo Ruggiero MD Spine / Lumbar [id number] Taco 16m134 Spine N/A: MEDTRONIC [id number] / Implanted: Qty: 2 on 12/12/2016 by Eduardo Ruggiero MD Spine / Lumbar [id number] Connector 20mm Spine N/A: MEDTR[employer]IC [id number] / Implanted: Qty: 1 on 12/12/2016 by Eduardo Ruggiero MD Spine / Lumbar Medtronic Sofamor Danek 10cc Sprinal Graft Spine N/A: MEDTRONIC 2017 [id number] / Implanted: Qty: 1 on 12/12/2016 by Eduardo Ruggiero MD Spine [id number] / Lumbar Medtronic Sofamor Daek Orthoblend Small 10cc Spine N/A: MEDTRONIC 2017 [id number] / Implanted: Qty: 1 on 12/12/2016 by Eduardo Ruggiero MD Spine [id number] / Lumbar Medtronic Sofarmor Danek Orthoblend Small 10cc Spine N/A: MEDTR[employer]IC [id number] / Implanted: Qty: 1 on 12/12/2016 by Eduardo Ruggiero MD Spine [id number] / Lumbar Screw Set Ti Ns Brk Off 5.5 - [id number] Spine N/A: MEDTR[employer]IC:SPINAL [id number] / Implanted: Qty: 6 on 12/12/2016 by Eduardo Ruggiero MD Spine BIOLOGICS / Lumbar [id number] Screw Mas Cc 7.5x50 [id number] - [id number] Spine N/A: MEDTRONIC:SPINAL [id number] / Implanted: Qty: 2 on 12/12/2016 by Eduardo Ruggiero MD Spine BIOLOGICS / Lumbar [id number] Screw Mas Cc 7.5 X 45 [id number] - [id number] Spine N/A: [employer]TR[employer]IC:SPINAL [id number] / Implanted: Qty: 2 on 12/12/2016 by Eduardo Ruggiero MD Spine BIOLOGICS / Lumbar [id number] Results Not on fileafter 09/10/2017 Insurance Payer Benefit Plan / Subscriber ID Type Phone Address Group MEDICAID - MEDICAID [facility] COMM STAR xxxxxxxxx Medicaid Contracted MGD CARE PLAN Advance Directives For more information, please contact:[address] [phone] Code Status Date Activated Date Inactivated Comments Full Code 11/29/2016 2:40 AM 12/25/2016 10:37 PM This code status was determined by: Patient Full Code 09/04/2014 12:28 PM 09/04/2014 6:40 PM This code status was determined by: Patient
--- OUTSIDE RECORDS SUMMARY | 2018-09-11 10:52 | XMS REPORT | Continuity of Care Document ---
:1960 Author Organization Interface Problems Problem Status Onset Classification Date Comments Source Date Reported MRSA<sup>1, 2, Active Problem 06/24/2016 Problem [facility] 3, 4</sup> 6 added by [facility] Expert. MARISEL COYLE Active [address] CAD - Coronary Resolved Problem 06/24/2016 [facility] artery disease [facility] Congestive Resolved Problem 06/24/2016 [facility] heart failure [facility] COPD Resolved Problem 06/24/2016 [facility] Diabetes Resolved Problem 06/24/2016 [facility] HTN (<span Resolved Problem 06/24/2016 [facility] ID="[id number] Medical 7">Confirmed</s Center pollack>) MRSA infection Resolved Problem 06/24/2016 [facility] ILLNESS, Active [facility] UNSPECIFIED [facility] Medications Medication Details Route Status Patient Ordering Order Source Instructions Provider Date clopidogrel 75 mg 75 mg=1 tab, Active [facility] oral tablet PO, Daily, 0 016 Medical Refill(s) [place] bisacodyl 10 mg 10 mg=1 Active [facility] rectal supp, DC, 016 Medical suppository Daily, PRN Center Constipation , 0 Refill(s) atorvastatin 40 40 mg=1 tab, Active [facility] mg oral tablet PO, Daily, 0 016 Medical Refill(s) Center amLODIPine 10 mg 10 mg=1 tab, Active [facility] oral tablet PO, Daily, 0 016 Medical Refill(s) [place] acetaminophen 325 650 mg=2 Active [facility] mg oral tablet tab, PO, 016 Medical Q6H, PRN Center Pain 1-3/Temp > 100.4 F, 0 Refill(s) tiotropium 18 Active [facility] microgram=1 016 Medical inhalation, Center INHALATION, RDaily, 0 Refill(s) ziprasidone 20 mg 20 mg=1 cap, Active [facility] oral capsule PO, BID, 0 016 Medical Refill(s) [place] Sucralfate 100 1 gm=10 mL, Active [place] MG/ML Oral PO, QID, 0 016 Medical Suspension Refill(s) [place] senna 8.6 mg oral 8.6 mg=1 Active [facility] tablet tab, PO, 016 Medical Daily, 0 Center Refill(s) polyethylene 17 gm, PO, Active [facility] glycol 3350 oral BID, 0 016 Medical powder for Refill(s) [place] reconstitution pantoprazole 40 40 mg=1 tab, Active [place] mg oral enteric PO, BID, 0 016 Medical coated tablet Refill(s) [place] Oxycodone 5 mg=1 tab, Active [facility] Hydrochloride 5 PO, Q6H, PRN 016 Medical MG Oral Tablet Pain Score Center 4-6, 0 Refill(s) metoprolol 25 mg=1 tab, Active [facility] tartrate 25 mg PO, Q12H, 0 016 Medical oral tablet Refill(s) [place] methocarbamol 500 1,000 mg=2 Active [facility] mg oral tablet tab, PO, 016 Medical Q8Hnow, 0 Center Refill(s) losartan 50 mg 50 mg=1 tab, Active [facility] oral tablet PO, Daily, 0 016 Medical Refill(s) [place] insulin detemir 10 unit, Active [facility] 100 units/mL SUB-Q, Q12H, 016 Medical subcutaneous 0 Refill(s) [place] solution Hydralazine 25 mg=1 tab, Active [facility] Hydrochloride 25 PO, Q6H-02, 016 Medical MG Oral Tablet 0 Refill(s) [place] gabapentin 100 MG 100 mg=1 Active [facility] Oral Capsule cap, PO, 016 Medical Daily, 0 Center Refill(s) doxazosin 4 mg 4 mg=1 tab, Active [facility] oral tablet PO, Daily, 0 016 Medical Refill(s) [place] donepezil 5 mg 10 mg=2 tab, Active [facility] oral tablet PO, Bedtime, 016 Medical 0 Refill(s) [place] Docusate Sodium 100 mg=1 Active [facility] [place] 100 MG Oral cap, PO, 016 Medical Capsule BID, 0 Center Refill(s) Aspirin 81 MG 81 mg=1 tab, Active [facility] Enteric Coated PO, Daily, 0 016 Medical Tablet Refill(s) Center Plavix 75 mg, 1 Inactive [facility] tab, Route: 016 Medical PO, Drug Center form: TAB, Daily, Dosing Weight 104.33, kg, Start date: 06/21/16 9:00:00 CDT, Duration: 30 day, Stop date: 07/20/16 9:00:00 CDTNotes: (Same As: Plavix) Aspirin 81 mg, 1 No Longer [facility] tab, Route: Active 016 Medical PO, Drug Center form: ECTAB, Daily, Dosing Weight 104.33, kg, Start date: 06/20/16 16:17:00 CDT, Duration: 30 day, Stop date: 07/20/16 9:00:00 CDT vancomycin 1 g See Active [facility] intravenous Instructions 016 Medical injection , infused Center over 60 minute, # 1 vial, 0 Refill(s) gabapentin 100 MG 100 mg, 1 Inactive [facility] Oral Capsule cap, Route: 016 Medical PO, Drug Center form: CAP, ONCE, Dosing Weight 104.33, kg, Start date: 06/19/16 17:40:00 CDT, Stop date: 06/19/16 17:40:00 CDTNotes: (Same as: Neurontin) Dilaudid 0.2 mg, 0.1 No Longer [facility] mL, Route: Active 016 Medical IVP, Drug Center form: INJ, Q4H, Dosing Weight 104.33, kg, PRN Pain Score 7-10, Start date: 06/19/16 17:37:00 CDT, Duration: 30 day, Stop date: 07/19/16 17:36:00 CDTNotes: Same as: Dilaudid Oxycodone 10 mg, 2 No Longer [facility] Hydrochloride 5 tab, Route: Active 016 Medical MG Oral Tablet PO, Drug Center form: TAB, Q6H, Dosing Weight 104.33, kg, PRN Pain Score 7-10, Start date: 06/19/16 17:36:00 CDT, Duration: 30 day, Stop date: 07/19/16 17:35:00 CDTNotes: (Same as: Roxicodone) vancomycin + 2 gm, Route: Inactive [facility] sodium chloride IVPB, ONCE, 016 Medical 0.9% 500 ml INJ Start date: Center 500 mL 06/19/16 15:00:00 CDT, Stop date: 06/19/16 15:00:00 CDTNotes: TIME CRITICAL MEDICATION (Same As: Vancocin) Infusion rate 2001 mg: infuse over 2.5 hours MEDICATION WASTE Product Size: 1000 mg Product Wasted: ___ mg hydrALAZINE 25 mg, 1 No Longer [facility] tab, Route: Active 016 Medical PO, Drug Center form: TAB, Q6H-02, Dosing Weight 104.33, kg, Priority: Routine, Start date: 06/17/16 12:00:00 CDT, Duration: 30 day, Stop date: 07/17/16 6:00:00 CDTNotes: (Same as: Apresoline) May interfere w/enteral feedings Take With Food. Protonix 80 mg, 2 No Longer [facility] tab, Route: Active 016 Medical PO, Drug Center form: ECTAB, BID, Dosing Weight 104.33, kg, Start date: 06/17/16 9:00:00 CDT, Duration: 30 day, Stop date: 07/16/16 17:00:00 CDTNotes: Tablet should not be chewed or crushed. (Same as: Protonix) Protonix 40 mg, 1 No Longer [facility] tab, Route: Active 016 Medical PO, Drug Center form: ECTAB, BID, Dosing Weight 104.33, kg, Start date: 06/16/16 17:00:00 CDT, Duration: 30 day, Stop date: 07/16/16 9:00:00 CDT vancomycin + 2 gm, Route: Inactive [facility] sodium chloride IVPB, ONCE, 016 Medical 0.9% 500 ml INJ Start date: Center 500 mL 06/16/16 14:30:00 CDT, Stop date: 06/16/16 14:30:00 CDTNotes: TIME CRITICAL MEDICATION (Same As: Vancocin) Infusion rate 2001 mg: infuse over 2.5 hours MEDICATION WASTE Product Size: 1000 mg Product Wasted: ___ mg gabapentin 100 MG 100 mg, 1 No Longer [facility] Oral Capsule cap, Route: Active 016 Medical PO, Drug Center form: CAP, Daily, Dosing Weight 104.33, kg, Start date: 06/16/16 11:46:00 CDT, Duration: 30 day, Stop date: 07/16/16 9:00:00 CDTNotes: (Same as: Neurontin) Cozaar 50 mg, 1 No Longer [facility] tab, Route: Active 016 Medical PO, Drug Center form: TAB, Daily, Dosing Weight 104.33, kg, Start date: 06/16/16 9:00:00 CDT, Duration: 30 day, Stop date: 07/15/16 9:00:00 CDTNotes: (Same as: Cozaar) Amlodipine 10 mg, 1 No Longer [facility] tab, Route: Active 016 Medical PO, Drug Center form: TAB, Daily, Dosing Weight 104.33, kg, Start date: 06/16/16 9:00:00 CDT, Duration: 30 day, Stop date: 07/15/16 9:00:00 CDTNotes: (Same as: Norvasc) sodium chloride 250 mL, No Longer [facility] 0.9% INJ 250 mL Rate: On [place] [address] Medical call for use Center with blood product administrati on, Dosing Weight 104.33, kg, Route: IV, Total Volume: 250, Start Date: 06/16/16 7:16:00 CDT, Duration: 1 doses or times, Stop date: 06/17/16 7:15:00 CDT, Replace Every: 24 hr Robaxin 1,000 mg, 2 No Longer [facility] tab, Route: Active 016 Medical PO, Drug Center form: TAB, Q8Hnow, Dosing Weight 104.33, kg, Start date: 06/16/16 0:00:00 CDT, Duration: 30 day, Stop date: 07/15/16 16:00:00 CDTNotes: (Same as:Robaxin) hydrALAZINE 50 mg, 1 No Longer [facility] tab, Route: Active 016 Medical PO, Drug Center form: TAB, Q6H-02, Dosing Weight 104.33, kg, Priority: Routine, Start date: 06/16/16 0:00:00 CDT, Duration: 30 day, Stop date: 07/15/16 18:00:00 CDTNotes: (Same as: Apresoline) May interfere w/enteral feedings Take With Food Levemir 10 unit, 0.1 No Longer [facility] mL, Route: Active 016 Medical SUB-Q, Drug Center form: INJ, Q12H, Dosing Weight 104.33, kg, Start date: 06/15/16 21:00:00 CDT, Duration: 30 day, Stop date: 07/15/16 9:00:00 CDTNotes: Same as Levemir Do not hold insulin without contacting prescriber WASTE: F/P - Black; E - [facility] Trash Bin "single patient use only" Vancomycin 1,500 mg, Inactive [facility] Route: IVPB, [facility] Drug form: [place] INJ, ONCE, Dosing Weight 104.33, kg, Start date: 06/15/16 17:17:00 CDT, Stop date: 06/15/16 17:17:00 CDT sodium chloride 250 mL, No Longer [facility] 0.9% 1000 ml INJ Rate: On [facility] 016 [facility] 250 mL call for use Center with blood product administrati on, Dosing Weight 104.33, kg, Route: IV, Total Volume: 250, Start Date: 06/15/16 0:25:00 CDT, Duration: 30 day, Stop date: 07/15/16 0:24:00 CDT, Replace Every: 24 hr Protonix 40 mg, No Longer [facility] Route: IVP, Active 016 Medical Drug form: [place] INJ, BID, Dosing Weight 104.33, kg, Start date: 06/14/16 17:00:00 CDT, Duration: 30 day, Stop date: 07/14/16 9:00:00 CDT Carafate 1 gm, 10 mL, No Longer [facility] Route: PO, Active 016 Medical Drug form: [place] SUSP, QID, Start date: 06/14/16 13:00:00 CDT, Duration: 14 day, Stop date: 06/28/16 9:00:00 CDT Lopressor 25 mg, 1 No Longer [facility] tab, Route: Active 016 Medical PO, Drug Center form: TAB, Q12H, Dosing Weight 104.33, kg, Start date: 06/14/16 9:55:00 CDT, Duration: 30 day, Stop date: 07/14/16 9:00:00 CDTNotes: (Same as: Lopressor) Doxazosin 4 mg, 1 tab, No Longer [facility] Route: PO, Active 016 Medical Drug form: [place] TAB, Daily, Dosing Weight 104.33, kg, Start date: 06/14/16 9:00:00 CDT, Duration: 30 day, Stop date: 07/13/16 9:00:00 CDTNotes: (Same as: Maricarmen) Sodium Chloride 100 mL, No Longer [facility] 0.154 MEQ/ML Rate: [address] [place] [address] Medical Injectable ml/hr, [place] Solution Infuse over: 10 hr, Route: IVPB, Dosing Weight 104.33 kg, Total Volume: 100, Infuse at 8 mg / hr for 72 hours for GI bleeding, Start date: 06/13/16 21:35:00 CDT, Duration: 72 hr, Stop date: 06/16/16 21:34:00 CDT Metoclopramide 5 5 mg, 1 tab, No Longer [facility] MG Oral Tablet Route: PO, Active 016 Medical [Reglan] Drug form: [place] TAB, Before Meals & Bedtime, Dosing Weight 104.33, kg, Start date: 06/13/16 21:00:00 CDT, Duration: 30 day, Stop date: 07/13/16 16:30:00 CDTNotes: (Same as: Reglan) magnesium citrate 300 ml, Inactive [facility] Route: PO, 016 Medical Drug Form: [place] LIQ, Dosing Weight 104.33, kg, ONCE, Start date: 06/13/16 19:55:00 CDT, Stop date: 06/13/16 19:55:00 CDTNotes: (Same as: Citrate of Magnesia) SMOG Enema 300 ml, No Longer [facility] Route: DC, Active Medical Drug Form: Center TONIA, Dosing Weight 104.33, kg, ONCE, Start date: 06/13/16 19:54:00 CDT, Duration: 1 doses or times, Stop date: 06/13/16 19:54:00 CDTNotes: Non formulary item Cardura 2 mg, 1 tab, Inactive [facility] Route: PO, Medical Drug form: [place] TAB, ONCE, Start date: 06/13/16 15:22:00 CDT, Stop date: 06/13/16 15:22:00 CDTNotes: (Same as: Cardura) Vancomycin 1.5 gm, Inactive [facility] Route: IVPB, [address] [place] [address] ONCE, Dosing Center Weight 104.33, kg, Start date: 06/13/16 3:57:00 CDT, Stop date: 06/13/16 3:57:00 CDTNotes: TIME CRITICAL MEDICATION (Same As: Vancocin) Infusion rate 2001 mg: infuse over 2.5 hours MEDICATION WASTE Product Size: 1000 mg Product Wasted: ___ mg Phenergan 12.5 mg, 0.5 No Longer [facility] mL, Route: Active [facility] IVPB, Drug Center form: INJ, Q6H, PRN Nausea, Start date: 06/13/16 3:11:00 CDT, Duration: 30 day, Stop date: 07/13/16 3:10:00 CDTNotes: Do not give IV push. (Same as: Phenergan) Compazine 5 mg, Route: Inactive [facility] IV, Q3H, 016 Medical Dosing Center Weight 104.33, kg, PRN Nausea & Vomiting, Start date: 06/13/16 2:02:00 CDT, Duration: 30 day, Stop date: 07/13/16 2:01:00 CDT Doxazosin 2 mg, 1 tab, No Longer [facility] Route: PO, Active 016 Medical Drug form: Center TAB, Daily, Dosing Weight 104.33, kg, Start date: 06/12/16 10:30:00 CDT, Duration: 30 day, Stop date: 07/12/16 9:00:00 CDTNotes: (Same as: Maricarmen) Dilaudid 0.2 mg, 0.1 No Longer [facility] mL, Route: Active 016 Medical IVP, Drug Center form: INJ, Q4H, Dosing Weight 104.33, kg, PRN Pain Score 7-10, Start date: 06/12/16 10:19:00 CDT, Duration: 30 day, Stop date: 07/12/16 10:18:00 CDTNotes: Same as: Dilaudid hydrALAZINE 50 mg, 1 No Longer [facility] tab, Route: Active 016 Medical PO, Drug Center form: TAB, Q6H-02, Dosing Weight 104.33, kg, Priority: Routine, Start date: 06/10/16 12:30:00 CDT, Duration: 30 day, Stop date: 07/10/16 6:30:00 CDTNotes: (Same as: Apresoline) May interfere w/enteral feedings Take With Food vancomycin 1 gm, Route: Inactive [facility] IVPB, Drug [facility] Medical form: INJ, Center ONCE, Start date: 06/10/16 2:30:00 CDT, Stop date: 06/10/16 2:30:00 CDTNotes: TIME CRITICAL MEDICATION (Same As: Vancocin) Infusion rate 2001 mg: infuse over 2.5 hours MEDICATION WASTE Product Size: 1000 mg Product Wasted: ___ mg hydrALAZINE 25 mg 25 mg, 1 Inactive [facility] oral tablet tab, Route: 016 Medical PO, Drug Center form: TAB, Q6H-02, Dosing Weight 104.33, kg, Priority: Routine, Start date: 06/10/16 0:30:00 CDT, Duration: 30 day, Stop date: 07/09/16 18:30:00 CDTNotes: (Same as: Apresoline) May interfere w/enteral feedings Take With Food. vancomycin + 750 mg, Inactive [facility] sodium chloride Route: IVPB, 016 Medical [...] With Food. vancomycin 1 gm, Route: Inactive [facility] IVPB, Drug 016 Medical form: INJ, Center ONCE, Start date: 06/08/16 13:00:00 CDT, Stop date: 06/08/16 13:00:00 CDTNotes: TIME CRITICAL MEDICATION (Same As: Vancocin) Infusion rate 2001 mg: infuse over 2.5 hours MEDICATION WASTE Product Size: 1000 mg Product Wasted: ___ mg Geodon 20 mg, 1 No Longer [facility] cap, Route: Active 016 Medical PO, [...] as:Robaxin) Robaxin 500 mg, 1 No Longer [facility] tab, Route: Active 016 Medical PO, Drug Center form: TAB, Q8H, Dosing Weight 104.33, kg, Priority: NOW, Start date: 06/07/16 22:02:00 CDT, Duration: 30 day, Stop date: 07/07/16 22:00:00 CDTNotes: (Same as:Robaxin) Milk of Magnesia 60 ml, Inactive [facility] Route: PO, 016 Medical Drug Form: [place] SUSP, Dosing Weight 104.33, kg, ONCE, Start date: 06/07/16 19:09:00 CDT, Stop date: 06/07/16 19:09:00 CDTNotes: (Same as: Milk of Magnesia, MOM) heparin 5,000 unit, No Longer [facility] 1 mL, Route: Active 016 Medical SUB-Q, Drug Center form: INJ, Q8H, Dosing Weight 104.33, kg, Start date: 06/07/16 16:00:00 CDT, Duration: 30 day, Stop date: 07/07/16 8:00:00 CDTNotes: porcine heparin molasses 240 mL, Inactive [facility] Route: DC, 016 Medical Drug Form: [place] SYRP, Dosing Weight 104.33, kg, ONCE, Milk of Molasses Enema, Start date: 06/07/16 10:36:00 CDT, Duration: 1 doses or times, Stop date: 06/07/16 10:36:00 CDTNotes: (Same as:Molasses) Oxycodone 5 mg, 1 tab, No Longer [facility] Hydrochloride 5 Route: PO, Active 016 Medical MG Oral Tablet Drug form: [place] TAB, Q6H, Dosing Weight 104.33, kg, PRN Pain Score 4-6, Start date: 06/07/16 10:15:00 CDT, Duration: 30 day, Stop date: 07/07/16 10:14:00 CDTNotes: (Same as: Roxicodone) sennosides, HALFWAY 8.6 mg, 1 No Longer [facility] tab, Route: Active 016 Medical PO, Drug Center Form: TAB, Dosing Weight 104.33, kg, Daily, Start date: 06/07/16 9:00:00 CDT, Duration: 30 day, Stop date: 07/06/16 9:00:00 CDTNotes: (Same as: Isaiahot) lurasidone 80 mg, No Longer [facility] Route: PO, Active 016 Medical Drug form: Center TAB, Daily, Dosing Weight 104.33, kg, Start date: 06/07/16 9:00:00 CDT, Duration: 30 day, Stop date: 07/06/16 9:00:00 CDT atorvastatin 40 mg, 1 No Longer [facility] tab, Route: Active 016 Medical PO, Drug Center form: TAB, Daily, Dosing Weight 104.33, kg, Start date: 06/07/16 9:00:00 CDT, Duration: 30 day, Stop date: 07/06/16 9:00:00 CDTNotes: (Same as: Lipitor) Amlodipine 10 mg, 1 No Longer [facility] tab, Route: Active 016 Medical PO, Drug Center form: TAB, Daily, Dosing Weight 104.33, kg, Start date: 06/07/16 9:00:00 CDT, Duration: 30 day, Stop date: 07/06/16 9:00:00 CDTNotes: (Same as: Shady) Levemir 5 unit, 0.05 No Longer [facility] mL, Route: Active 016 Medical SUB-Q, Drug Center form: INJ, Bedtime, Dosing Weight 104.33, kg, Start date: 06/06/16 21:00:00 CDT, Stop date: 07/05/16 21:00:00 CDTNotes: Same as Levemir Do not hold insulin without contacting prescriber WASTE: F/P - Black; E - Municipal Trash Bin "single patient use only" Geodon 40 mg, 1 No Longer [facility] cap, Route: Active 016 Medical PO, Drug Center form: CAP, Bedtime, Dosing Weight 104.33, kg, Start date: 06/06/16 21:00:00 CDT, Duration: 30 day, Stop date: 07/05/16 21:00:00 CDT donepezil 10 mg, 2 No Longer [facility] tab, Route: Active 016 Medical PO, Drug Center form: TAB, Bedtime, Dosing Weight 104.33, kg, Start date: 06/06/16 21:00:00 CDT, Duration: 30 day, Stop date: 07/05/16 21:00:00 CDTNotes: (Same as: Aricept) Furosemide 40 MG 40 mg=1 tab, No Longer [facility] Oral Tablet PO, 0 Active [facility] Medical Refill(s) [place] Humulin 70/30 Pen SUB-Q, 0 No Longer [facility] Refill(s) [address] terazosin 2 mg 2 mg=1 cap, No Longer [facility] oral capsule PO, 0 Active [facility] Medical Refill(s) [place] 3 ML Insulin 6 unit, No Longer [facility] Lispro 100 UNT/ML SUB-Q, # [address] [place] [address] Pen Injector mL, 0 Center [Humalog] Refill(s) vancomycin + 750 mg, Inactive [facility] sodium chloride Route: IVPB, [address] [place] [address] 0.9% 250 mL INJ , Center (for IV set) 250 Start date: mL 06/06/16 18:00:00 CDT, Duration: 30 day, Stop date: 07/06/16 16:00:00 CDTNotes: TIME CRITICAL MEDICATION (Same As: Vancocin) Infusion rate 2001 mg: infuse over 2.5 hours MEDICATION WASTE Product Size: 1000 mg Product Wasted: ___ mg Docusate Sodium 100 mg, 1 Inactive [facility] 100 MG Oral cap, Route: [facility] Medical Capsule [Colace] PO, BID, Center Dosing Weight 104.33, kg, Start date: 06/06/16 17:00:00 CDT, Duration: 30 day, Stop date: 07/06/16 9:00:00 CDT Miralax 17 gm, 1 No Longer [facility] pkt, Route: Active [facility] Medical PO, Drug Center form: PWDR, BID, Dosing Weight 104.33, kg, Start date: 06/06/16 17:00:00 CDT, Duration: 30 day, Stop date: 07/06/16 9:00:00 CDTNotes: Dissolve in 8 oz of water or juice. (Same as: Miralax) Docusate 100 mg, 1 No Longer [facility] cap, Route: Active 016 Medical PO, Drug Center form: CAP, BID, Dosing Weight 104.33, kg, Start date: 06/06/16 17:00:00 CDT, Duration: 30 day, Stop date: 07/06/16 9:00:00 CDTNotes: (Same as: Colace) (Do Not Crush) ranolazine 1,000 mg, 2 No Longer [facility] tab, Route: Active 016 Medical PO, Drug Center form: TAB, BID, Dosing Weight 104.33, kg, Start date: 06/06/16 17:00:00 CDT, Duration: 30 day, Stop date: 07/06/16 9:00:00 CDT Cozaar 100 mg, 2 No Longer [facility] tab, Route: Active 016 Medical PO, Drug Center form: TAB, Daily, Dosing Weight 104.33, kg, Start date: 06/06/16 17:00:00 CDT, Duration: 30 day, Stop date: 07/06/16 9:00:00 CDTNotes: (Same as: Cozaar) vancomycin + 2,250 mg, Inactive [facility] sodium chloride Route: IVPB, [facility] Medical 0.9% 500 mL INJ ONCE, [place] (for IV set) 500 Priority: mL Routine, Start date: 06/06/16 17:00:00 CDT, Stop date: 06/06/16 17:00:00 CDTNotes: TIME CRITICAL MEDICATION (Same As: Vancocin) Infusion rate 2001 mg: infuse over 2.5 hours MEDICATION WASTE Product Size: 1000 mg Product Wasted: ___ mg Acetaminophen 325 1 tab, No Longer [facility] MG / Hydrocodone Route: PO, Active [facility] Medical Bitartrate 5 MG Drug Form: Center Oral Tablet TAB, Dosing [[place] 5/325] Weight 104.33, kg, Q4H, PRN Pain Score 4-6, Start date: 06/06/16 16:23:00 CDT, Duration: 30 day, Stop date: 07/06/16 16:22:00 CDTNotes: (Same as: [place] 325/5) Do not exceed 4gm/day of acetaminophe n. Tylenol 650 mg, 2 No Longer [facility] tab, Route: Active 016 Medical PO, [...] As: Ultram) meropenem 500 mg, No Longer [facility] Route: IVPB, Active 016 Medical Drug form: Center PDR/INJ, [id number], Dosing Weight 104.33, kg, CrCL=Notes: Same as [place] MEDICATION WASTE Product Size: 500 mg Product Wasted: ___ mg Plavix 75 mg, 1 No Longer [facility] tab, Route: Active 016 Medical PO, Drug Center form: TAB, Daily, Dosing Weight 104.33, kg, Start date: 06/06/16 14:23:00 CDT, Duration: 30 day, Stop date: 07/06/16 9:00:00 CDTNotes: (Same As: Plavix) Aspirin 325 mg, 1 No Longer [facility] tab, Route: Active 016 Medical PO, Drug Center form: TAB, Daily, Dosing Weight 104.33, kg, Start date: 06/06/16 14:23:00 CDT, Duration: 30 day, Stop date: 07/06/16 9:00:00 CDTNotes: Take with food. Adenosine 6 mg, Route: Inactive [facility] IV, ONCE, 016 Medical Dosing Center Weight 104.33, kg, Start date: 06/06/16 14:19:00 CDT, Stop date: 06/06/16 14:19:00 CDT Adenosine 6 mg, Route: Inactive [facility] IV, ONCE, 016 Medical Dosing Center Weight 104.33, kg, Start date: 06/06/16 14:17:00 CDT, Stop date: 06/06/16 14:17:00 CDT Morphine 2 mg, 1 mL, No Longer [facility] Route: IV, Active Medical Drug form: Center INJ, Q6H, Dosing Weight 104.33, kg, PRN as needed for chest pain, Start date: 06/06/16 14:00:00 CDT, Duration: 30 day, Stop date: 07/06/16 13:59:00 CDTNotes: (Same as:MORPhine Sulfate) metoprolol 25 mg, Inactive [facility] tartrate Route: PO, Medical Drug form: [place] TAB, ONCE, Dosing Weight 104.33, kg, Start date: 06/06/16 13:59:00 CDT, Stop date: 06/06/16 13:59:00 CDT vancomycin + 1.5 gm, Inactive [facility] sodium chloride Route: IVPB, [facility] Medical 0.9% INJ 250 mL ONCE, Start Center date: 06/06/16 11:12:00 CDT, Stop date: 06/06/16 11:12:00 CDTNotes: TIME CRITICAL MEDICATION (Same As: Vancocin) Infusion rate 2001 mg: infuse over 2.5 hours MEDICATION WASTE Product Size: 1000 mg Product Wasted: ___ mg Ceftazidime 1 gm, Route: Inactive [facility] IVPB, Drug 016 Medical form: Center PDR/INJ, [id number], Dosing Weight 104.33, kg, Start date: 06/06/16 11:00:00 CDT, Duration: 30 day, Stop date: 07/05/16 11:00:00 CDTNotes: (Same as: [place]) MEDICATION WASTE Product Size: 1000 mg Product Wasted: 0 mg venlafaxine 300 mg, 2 No Longer [facility] cap, Route: Active 016 Medical PO, Drug Center form: ERCAP, Daily, Dosing Weight 104.33, kg, Start date: 06/06/16 11:00:00 CDT, Duration: 30 day, Stop date: 07/06/16 9:00:00 CDT tiotropium 18 No Longer [facility] microgram, [address] [place] [address] inhalation, Center Route: INHALATION, Drug form: CAP, RDaily, Dosing Weight 104.33, kg, Start date: 06/06/16 11:00:00 CDT, Duration: 30 day, Stop date: 07/06/16 8:00:00 CDTNotes: (Same As: Spiriva) Lopressor 50 mg, 1 No Longer [facility] tab, Route: Active 016 Medical PO, Drug Center form: TAB, Q12H, Dosing Weight 104.33, kg, Start date: 06/06/16 11:00:00 CDT, Duration: 30 day, Stop date: 07/06/16 9:00:00 CDTNotes: (Same as: Lopressor) Losartan 100 mg, 1 Inactive [facility] tab, Route: 016 Medical PO, Drug Center form: TAB, Daily, Dosing Weight 104.33, kg, Start date: 06/06/16 11:00:00 CDT, Duration: 30 day, Stop date: 07/06/16 9:00:00 CDTNotes: (Same as: Cozaar) Dulcolax Laxative 10 mg, 1 No Longer [facility] supp, Route: Active 016 [facility], Drug Center form: SUPP, Daily, Dosing Weight 104.33, kg, PRN Constipation , Start date: 06/06/16 10:50:00 CDT, Duration: 30 day, Stop date: 07/06/16 10:49:00 CDTNotes: (Same As: Dulcolax, [place]isco-Lax) Insulin, Aspart, 10 unit, 0.1 No Longer [facility] Human mL, Route: Active 016 Medical [...] __Date Glucagon 1 mg, Route: No Longer [facility] IM, Drug Active 016 Medical form: Center PDR/INJ, PRN, Dosing Weight 104.33, kg, PRN Blood Glucose Results, Start date: 06/06/16 9:41:00 CDT, Duration: 30 day, Stop date: 07/06/16 9:40:00 CDT Dextrose 50% 25 gm, 50 No Longer [facility] Syringe mL, Route: Active 016 Medical IVP, Drug Center Form: INJ, Dosing Weight 104.33, kg, PRN, PRN Blood Glucose Results, Start date: 06/06/16 9:41:00 CDT, Duration: 30 day, Stop date: 07/06/16 9:40:00 CDT Ondansetron 4 mg, 2 mL, No Longer [facility] Route: IVP, Active 016 Medical Drug form: Center INJ, Q6H, Dosing Weight 104.33, kg, PRN Nausea & Vomiting, Start date: 06/06/16 9:39:00 CDT, Duration: 30 day, Stop date: 07/06/16 9:38:00 CDTNotes: (Same as: [place]) MEDICATION WASTE Product Size: 4 mg Product Wasted: _0__ mg venlafaxine 300 mg, PO, No Longer [facility] Daily, 0 Active 016 Medical Refill(s) Center donepezil 10 mg, PO, No Longer [facility] Bedtime, 0 Active 016 Medical Refill(s) Center clopidogrel 75 MG 75 mg=1 tab, No Longer [facility] Oral Tablet PO, Daily, 0 Active 016 Medical [Plavix] Refill(s) Center Levemir 22 unit, No Longer [facility] SUB-Q, 0 Active 016 Medical Refill(s) Center cholecalciferol 1,000 No Longer [facility] IntlUnit, 0 Active 016 Medical Refill(s) [place] Aspirin 325 mg, 0 No Longer [facility] Refill(s) Active 016 [facility] atorvastatin 40 mg, PO, No Longer [facility] Daily, 0 Active 016 Medical Refill(s) Center Amlodipine 10 mg, PO, No Longer [facility] Daily, 0 Active 016 Medical Refill(s) [place] tiotropium 18 No Longer [facility] microgram, Active 016 Medical INHALATION, Center Daily, 0 Refill(s) Prenavite FC oral 1 tab, PO, No Longer [facility] tablet Daily, 0 Active 016 Medical Refill(s) [place] losartan 100 mg 100 mg=1 No Longer [facility] oral tablet tab, PO, Active 016 Medical Daily, 0 Center Refill(s) Lorazepam 2 mg, PO, No Longer [facility] Q---Sa, Active 016 Medical 0 Refill(s) [place] Insulin, Aspart, 8 unit, No Longer [facility] Human SUB-Q, Active 016 Medical TID-Before [place] Meals, 0 Refill(s) Nitroglycerin 0.4 mg, SL, No Longer [facility] Q5Min, PRN Active 016 Medical as needed Center for chest pain, 0 Refill(s) lurasidone 80 mg 80 mg=1 tab, No Longer [facility] oral tablet PO, Daily, 0 Active 016 Medical Refill(s) [place] metoprolol 50 mg=1 tab, No Longer [facility] tartrate 50 mg PO, BID, # Active 016 Medical oral tablet 180 tab, 0 Center Refill(s) 12 HR ranolazine 1,000 mg=1 No Longer [facility] 1000 MG Extended tab, PO, Active 016 Medical Release Tablet BID, # 60 Center tab, 0 Refill(s) Pramipexole 0.25 mg=1 No Longer [facility] dihydrochloride tab, PO, Active 016 Medical 0.25 MG Oral Daily, 0 [place] Tablet [Mirapex] Refill(s) Geodon 40 mg, PO, No Longer [facility] Daily, 0 Active 016 Medical Refill(s) [place] Sodium Chloride 1,000 mL, Inactive [facility] 0.154 MEQ/ML 1,000 ml/hr, 016 Medical Injectable Infuse Over: [place] Solution 1 hr, Route: IV, ONCE, Priority: STAT, Dosing Weight 104.33 kg, Start date: 06/06/16 5:34:00 CDT, Duration: 1 doses or times, Stop date: 06/06/16 5:34:00 CDT Albuterol 0.833 9 mL, Route: Inactive [facility] MG/ML / NEB, Drug 016 Medical Ipratropium Form: SOLN, [place] Goff 0.167 Dosing MG/ML Inhalant Weight Solution [DuoNeb] [...] Phosphorus 2.0 mg/dL 2.5 - 4.5 06/21 [facility] CHEM PANEL eGFR 38 06/21 Result Comment: The eGFR is calculated using the CKD-EPI formula. In most young, healthy individuals the eGFR will be >90 mL/ min/1.73m2. The eGFR declines with age. An eGFR of 60-89 may be normal in [facility] mL/min/1. /2015 some populations, particularly the elderly, for whom the CKD-EPI formula has not been extensively validated. Use of the eGFR is not recommended in the following populations: [address] Individuals with unstable creatinine concentrations, including [...] PANEL AGAP 11.7 meq/L 10.0 - 06/21 [facility] 20.0 [facility] CHEM PANEL CO2 26 meq/L 24 - 32 06/21 [facility] CHEM PANEL Calcium Lvl 7.8 mg/dL 8.5 - 10.5 06/21 [facility] CHEM PANEL Chloride Lvl 99 meq/L 95 - 109 06/21 [facility]2015 [facility] CHEM PANEL Creatinine 1.89 mg/dL 0.50 - 06/21 [facility] Lvl 1.40 [facility] CHEM PANEL Potassium Lvl 3.7 meq/L 3.5 - 5.1 06/21 2015 [facility] CHEM PANEL Sodium Lvl 133 meq/L 135 - 145 06/21 2015 [facility] CHEM PANEL Glucose Lvl 125 mg/dL 70 - 99 06/21 2015 [facility] CHEM PANEL BUN 23 mg/dL 06/[address] CHEM PANEL Magnesium Lvl 2.0 mg/dL 1.8 - 2.4 06/21 [facility]2015 [facility] TOXICOLOGY Vanco Lvl 21.1 ug/ml 06/[address] TOXICOLOGY Vanco Lvl 31.4 ug/ml 06/[address] CHEM PANEL BUN 35 mg/dL 06/[address] CHEM PANEL Creatinine 3.30 mg/dL 0.50 - 06/19 [facility] Lvl 1.40 [facility] CHEM PANEL Chloride Lvl 95 meq/L 95 - 109 06/[address] CHEM PANEL Potassium Lvl 4.4 meq/L 3.5 - 5.1 06/[address] CHEM PANEL Glucose Lvl 137 mg/dL 70 - 99 06/[address] CHEM PANEL Sodium Lvl 128 meq/L 135 - 145 06/19 [facility]2015 [facility] CHEM PANEL eGFR 20 06/19 Result Comment: The eGFR is calculated using the CKD-EPI formula. In most young, healthy individuals the eGFR will be >90 mL/ min/1.73m2. The eGFR declines with age. An eGFR of 60-89 may be normal in [facility] mL/min/1. some populations, particularly the elderly, for whom the CKD-EPI formula has not been extensively validated. Use of the eGFR is not recommended in the following populations: [address] Individuals with unstable creatinine concentrations, including [...] CO2 21 meq/L 24 - 32 06/19 [facility] CHEM PANEL Calcium Lvl 8.2 mg/dL 8.5 - 10.5 06/19 [facility] CHEM PANEL AGAP 16.4 meq/L 10.0 - 06/19 20.0 [facility] HEMATOLOGY MCH 29.1 pg 27.0 - 06/19 [place] 31.0 [facility] HEMATOLOGY MCV 86.5 fL 80.0 - 06/19 [place] 94.0 [facility] HEMATOLOGY Hct 22.1 % 42.0 - 06/19 54.0 [facility] HEMATOLOGY Hgb 7.4 g/dL 14.0 - 06/19 18.0 [facility] HEMATOLOGY RBC 2.56 M/CMM 4.70 - 06/19 [place] 6.10 [facility] HEMATOLOGY WBC 22.6 K/CMM 3.7 - 10.4 06/19 [facility] HEMATOLOGY RDW 14.5 % 11.5 - 06/19 14. [facility] HEMATOLOGY MCHC 33.7 g/dL 32.0 - 06/19 [place] 36.0 [facility] HEMATOLOGY Platelet 387 K/CMM 133 - 450 06/19 [facility] HEMATOLOGY MPV 8.3 fL 7.4 - 10.4 06/19 [facility] HEMATOLOGY Lymphocytes 7.8 % 20.0 - 06/19 [place] 40.0 [facility] HEMATOLOGY Segs 84.0 % 45.0 - 06/19 [place] 75.0 [facility] HEMATOLOGY Basophils # 0.1 K/CMM 0.0 - 0.2 06/19 [facility] HEMATOLOGY Monocytes # 1.5 K/CMM 0.0 - 0.8 06/19 [facility] HEMATOLOGY Lymphocytes # 1.8 K/CMM 1.0 - 5.5 06/19 [facility] HEMATOLOGY Eosinophils # 0.2 K/CMM 0.0 - 0.5 06/19 [facility] HEMATOLOGY Monocytes 6.8 % 2.0 - 12.0 06/19 [facility] HEMATOLOGY Segs-Bands # 18.9 K/CMM 1.5 - 8.1 06/19 [facility] HEMATOLOGY Basophils 0.4 % 0.0 - 1.0 06/19 [facility] HEMATOLOGY Eosinophils 1.0 % 0.0 - 4.0 06/19 [facility] TOXICOLOGY Vanco Lvl 16.5 ug/ml 06/19 [facility] ELECTROLYTE AGAP 11.8 meq/L 10.0 - 06/17 [facility] 20.0 [facility] ELECTROLYTE eGFR 33 06/17 Result Comment: The eGFR is calculated using the CKD-EPI formula. In most young, healthy individuals the eGFR will be >90 mL/ min/1.73m2. The eGFR declines with age. An eGFR of 60-89 may be normal in [facility] mL/min/1. some populations, particularly the elderly, for whom the CKD-EPI formula has not been extensively validated. Use of the eGFR is not recommended in the following populations: [address] Individuals with unstable creatinine concentrations, including [...] BMI. ELECTROLYTE BUN 30 mg/dL 7 - 06/17 [facility] ELECTROLYTE Glucose Lvl 85 mg/dL 70 - 99 06/17 [facility] ELECTROLYTE Chloride Lvl 100 meq/L 95 - 109 06/17 [facility] ELECTROLYTE Potassium Lvl 3.8 meq/L 3.5 - 5.1 06/17 [facility] ELECTROLYTE CO2 28 meq/L 24 - 32 06/17 [facility]2015 [facility] ELECTROLYTE Creatinine 2.17 mg/dL 0.50 - 06/17 [facility] Lvl 1.40 [facility] ELECTROLYTE Sodium Lvl 136 meq/L 135 - 145 06/17 [facility] ELECTROLYTE Calcium Lvl 8.3 mg/dL 8.5 - 10.5 06/17 [facility] S [facility] HEMATOLOGY RBC 2.61 M/CMM 4.70 - 06/17 6.10 [facility] HEMATOLOGY MCHC 33.7 g/dL 32.0 - 06/17 36.0 [facility] HEMATOLOGY RDW 14.4 % 11.5 - 06/17 14. [facility] HEMATOLOGY Platelet 331 K/CMM 133 - 450 06/17 [facility] HEMATOLOGY MPV 8.7 fL 7.4 - 10.4 06/17 [facility] HEMATOLOGY Hgb 7.5 g/dL 14.0 - 06/17 18.0 [facility] HEMATOLOGY Hct 22.2 % 42.0 - 06/17 54.0 [facility] HEMATOLOGY MCV 85.3 fL 80.0 - 06/17 94.0 [facility] HEMATOLOGY MCH 28.8 pg 27.0 - 06/17 31.0 [facility] HEMATOLOGY WBC 19.1 K/CMM 3.7 - 10.4 06/17 [facility] HEMATOLOGY Eosinophils # 0.1 K/CMM 0.0 - 0.5 06/17 [facility] HEMATOLOGY Monocytes # 1.6 K/CMM 0.0 - 0.8 06/17 [facility] HEMATOLOGY Lymphocytes # 1.6 K/CMM 1.0 - 5.5 06/17 [facility] HEMATOLOGY Segs-Bands # 15.8 K/CMM 1.5 - 8.1 06/17 [facility] HEMATOLOGY Basophils 0.4 % 0.0 - 1.0 06/17 [facility] HEMATOLOGY Basophils # 0.1 K/CMM 0.0 - 0.2 06/17 [facility] HEMATOLOGY Segs 82.3 % 45.0 - 06/17 75.0 [facility] HEMATOLOGY Eosinophils 0.5 % 0.0 - 4.0 06/17 [facility] HEMATOLOGY Monocytes 8.6 % 2.0 - 12.0 06/17 [facility] HEMATOLOGY Lymphocytes 8.2 % 20.0 - 06/17 40.0 [facility] BLOOD BANK RBC product Product available 06/16 [facility] (06/16/16 7:16 AM) [place] HEMATOLOGY Polychrom slight 06/16 [facility] HEMATOLOGY Plt Morph Normal 06/16 Medical (06/16/16 4:18 AM) [place] HEMATOLOGY Atypical 0.0 % <=0.0 % 06/16 [facility] Lymph [facility] HEMATOLOGY Monocytes 5.0 % 2.0 - 12.0 06/16 [facility] HEMATOLOGY Metamyelocyte 1.0 % 0.0 - 1.0 06/16 [facility] s [facility] HEMATOLOGY Lymphocytes 5.0 % 20.0 - 06/16 [place] 40.0 [facility] HEMATOLOGY Monocytes # 1.5 K/CMM 0.0 - 0.8 06/16 [facility] HEMATOLOGY Segs 87.0 % 45.0 - 06/16 [place] 75.0 [facility] HEMATOLOGY Bands 2.0 % 0.0 - 11.0 06/16 [facility] HEMATOLOGY Lymphocytes # 1.5 K/CMM 1.0 - 5.5 06/16 [facility] HEMATOLOGY Segs-Bands # 26.3 K/CMM 1.5 - 8.1 06/16 [facility] HEMATOLOGY Platelet 338 K/CMM 133 - 450 06/16 [facility] HEMATOLOGY MCHC 32.6 g/dL 32.0 - 06/16 [place] 36.0 [facility] HEMATOLOGY MPV 8.4 fL 7.4 - 10.4 06/16 [facility] HEMATOLOGY RDW 14.4 % 11.5 - 06/16 14.5 [facility] HEMATOLOGY MCV 84.7 fL 80.0 - 06/16 94.0 [facility] HEMATOLOGY Hct 20.7 % 42.0 - 06/16 [place] 54.0 2016 [facility] HEMATOLOGY Hgb 6.8 g/dL 14.0 - 06/16 Result [facility] 18. Comment: Medical Critical Center Result(s) called to tristan dubon at 06/16/2016 05:01_ by_aa. Read back OK. HEMATOLOGY RBC 2.44 M/CMM 4.70 - 06/16 [place] 6.10 [facility] HEMATOLOGY MCH 27.6 pg 27.0 - 06/16 [place] 31.0 [facility] HEMATOLOGY WBC 29.5 K/CMM 3.7 - 10.4 06/16 [facility] /2015 [facility] CVC insert CVC insert STUDY: VIR CV Catheter Placement Tunneled 06/15 - [facility] tunnel tunnel w/-w/o /2015 - Medical w/-w/o port/pump age This report was dictated by a Senior Talent Acquisition Specialist /Fellow. I have personally reviewed the images [...] ultrasound and fluoroscopic guided placement of a16 Polish 23 cm to tip hemodialysis catheter into the right internal jugular vein. 2. Moderate sedation [place] [employer] DRIVER: Vincent Gamino AIRPLANE ENGINEER(S): Dr. Bravo CONSENT: Written consent obtained after [...] jugular vein. 2. Successful placement of 16 [place] 23 cm right internal jugular vein hemodialysis catheter. COMPLICATIONS: None ESTIMATED BLOOD LOSS: None FLUOROSCOPIC TIME: 0.3 minutes RADIATION DOSE: 6 mGy CONTRAST VOLUME: None IMPRESSION: Successful ultrasound and fluoroscopic guided placement of a right internal jugular vein 16 [place] tunneled 23 cm cuff to tip hemodialysis catheter. The line is ready for immediate use. PLAN/FOLLOW UP: None Dr. Bravo, IR Attending, was present for the procedure. BLOOD BANK RBC product Product available 06/15 [facility] (06/15/16 12:25 AM) Center IMMUNOLOGY H pylori IgG 0.7 06/15 [facility] unit/mL [facility] CHEM PANEL Lactic Acid 1.7 mMol/L 0.5 - 2.2 06/14 [facility] CHEM PANEL Procalcitonin 1.04 ng/mL 0.00 - 06/14 [facility] 0. [facility] CHEM PANEL Phosphorus 4.6 mg/dL 2.5 - 4.5 06/14 [facility] CHEM PANEL Procalcitonin 1.04 ng/mL 0.00 - 06/14 [facility] 0. [facility] HEMATOLOGY Metamyelocyte 2.0 % 0.0 - 1.0 06/14 [facility] s [facility] HEMATOLOGY Bands 1.0 % 0.0 - 11.0 06/14 [facility] HEMATOLOGY Tot Cell Ct 200 06/14 [facility] HEMATOLOGY Plt Morph Normal 06/14 [facility] (06/14/16 2:21 AM) [place] HEMATOLOGY RBC Morph Normal 06/14 [facility] (06/14/16 2:21 AM) [place] HEMATOLOGY Atypical 0.0 % <=0.0 % 06/14 [facility] Lymphs [facility] BLOOD BANK ABO/Rh O POS 06/14 [place] RESULTS [facility] BLOOD BANK Antibody Scrn Negative 06/14 [place] RESULTS Medical (06/13/16 10:25 PM) Center BODY FLUIDS Sebastián Occult Positive Negative 06/14 [facility] Bld [facility] *ABN* Center (06/13/16 10:22 PM) HEMATOLOGY Basophils 0.1 % 0.0 - 1.0 06/14 /2015 [facility] HEMATOLOGY PTT 40.7 s 22.9 - 06/14 [place] 35.8 [facility] HEMATOLOGY INR 1.13 0.85 - 06/14 [place] 1.17 /2015 [facility] HEMATOLOGY PT 14.8 s 12.0 - 06/14 [facility] 14.7 [facility] Abdomen AP Abdomen AP DX EXAM: XR ABDOMEN 1 VIEW 06/13 - [facility] DX - [facility] This report was dictated by a Senior Talent Acquisition Specialist/Fellow. I have personally reviewed the images as [...] Lvl 2.0 g/dL 3.5 - 5.0 06/13 [facility] CHEM PANEL Total Protein 6.4 g/dL 6.4 - 8.4 06/13 [facility] CHEM PANEL A/G Ratio 0.5 0.7 - 1.6 06/13 [facility] CHEM PANEL Globulin 4.4 g/dL 2.7 - 4.2 06/13 [facility] CHEM PANEL Alk Phos 319 unit/L 39 - 136 06/13 [facility] CHEM PANEL B/C Ratio 16 6 - 25 06/[address] CHEM PANEL AST 18 unit/L 0 - 37 06/13 [facility]2015 [facility] CHEM PANEL ALT 26 unit/L 0 - 65 06/[address] CHEM PANEL Bili Total 0.4 mg/dL 0.2 - 1.3 06/[address] HEMATOLOGY Eosinophils 0.4 % 0.0 - 4.0 06/13 [facility]2015 [facility] HEMATOLOGY Plt Morph Normal 06/13 [facility] (06/13/16 12:38 AM) [place] HEMATOLOGY Eosinophils # 0.1 K/CMM 0.0 - 0.5 06/[address] CVC remove CVC remove STUDY: Tunneled hemodialysis catheter removal 06/12 [facility] tunnel tunnel w/-w/o /2015 - [facility] w/-w/o port/pump VR Center port/pump VR DATE: [...] compressed for short while and hemostasis obtained. [place] DRIVER: Lawrence AIRPLANE ENGINEER(S): CONSENT: Written consent obtained after discussing the [...] B/C Ratio 18 6 - 25 06/[address] CHEM PANEL Globulin 4.9 g/dL 2.7 - 4.2 06/[address] CHEM PANEL A/G Ratio 0.4 0.7 - 1.6 06/12 [facility] /[address] [place] [address] CHEM PANEL Bili Total 0.4 mg/dL 0.2 - 1.3 06/12 2015 [facility] CHEM PANEL AST 18 unit/L 0 - 37 06/12 [facility]2015 [facility] CHEM PANEL Alk Phos 401 unit/L 39 - 136 06/[address] CHEM PANEL Total Protein 7.0 g/dL 6.4 - 8.4 06/12 [facility]2015 [facility] CHEM PANEL ALT 24 unit/L 0 - 65 06/12 [facility]2015 [facility] CHEM PANEL Albumin Lvl 2.1 g/dL 3.5 - 5.0 06/12 [facility]2015 [facility] CHEM PANEL Lactic Acid 0.8 mMol/L 0.5 - 2.2 06/10 [facility] CHEM PANEL Globulin 4.6 g/dL 2.7 - 4.2 06/[address] CHEM PANEL B/C Ratio 12 6 - 25 06/[address] CHEM PANEL A/G Ratio 0.4 0.7 - 1.6 06/[address] CHEM PANEL Total Protein 6.5 g/dL 6.4 - 8.4 06/[address] CHEM PANEL Albumin Lvl 1.9 g/dL 3.5 - 5.0 06/[address] CHEM PANEL ALT 22 unit/L 0 - 65 06/[address] CHEM PANEL AST 22 unit/L 0 - 37 06/[address] CHEM PANEL Alk Phos 352 unit/L 39 - 136 06/[address] CHEM PANEL Bili Total 0.4 mg/dL 0.2 - 1.3 06/[address] CHEM PANEL Lactic Acid 0.9 mMol/L 0.5 - 2.2 06/08 [facility] CARDIAC Troponin-I 0.07 ng/mL 0.00 - 06/07 [facility] ENZYMES 0. [facility] CHEM PANEL Phosphorus 3.7 mg/dL 2.5 - 4.5 06/[address] CHEM PANEL Magnesium Lvl 2.1 mg/dL 1.8 - 2.4 06/07 [facility]2015 [facility] HEMATOLOGY INR 1.32 0.85 - 06/07 [facility] [place] 1. [facility] HEMATOLOGY PTT 49.3 s 22.9 - 06/07 [facility] 35.8 /2015 [facility] HEMATOLOGY PT 16.7 s 12.0 - 06/07 [facility] 14.7 [facility] BACTERIAL - MRSA by PCR Positive 1 06/07 Result [facility] SEROLOGY Comment: Medical *ABN* "Significant Center Findings (06/07/16 1:46 AM) called to Anca Ward_at 06/07/2016 13:25 by bf. Read Back OK." URINE AND UA Sq Epi RARE 06/07 [facility] URINE AND UA WBC 8 /HPF 0 - 5 06/07 [facility] URINE AND UA RBC 3 /HPF 0 - 2 06/07 [facility] URINE AND UA Bacteria Occasional None Seen 06/07 [facility] /HPF /HPF /2015 [facility] URINE AND UA Hyal Cast 3 /LPF 0 - 2 06/07 [facility] URINE AND UA Mucus Few /LPF None Seen 06/07 [facility] STOOL /LPF /2015 [facility] URINE AND UA 0.2 EU/dL 0.1 - 1.0 06/07 [facility] Urobilinogen /2015 [facility] URINE AND UA Nitrite Negative Negative 06/07 [facility] (06/06/16 11:32 PM) [place] URINE AND UA Leuk Est Negative Negative 06/07 [facility] (06/06/16 11:32 PM) [place] URINE AND UA Blood Trace Negative 06/07 [facility] Medical *ABN* [place] (06/06/16 11:32 PM) URINE AND UA Bili Negative Negative 06/07 [facility] Medical *NA* [place] (06/06/16 11:32 PM) URINE AND UA pH 7.0 5.0 - 8.0 06/07 [facility] [facility] URINE AND UA Protein 100 mg/dL Negative 06/07 [facility] mg/dL [facility] URINE AND UA Turbidity Clear Clear 06/07 [facility] (06/06/16 11:32 PM) [place] URINE AND UA Spec Grav 1.020 <=1.030 06/07 [facility] URINE AND UA Ketones Negative Negative 06/07 [facility] Medical *NA* Center (06/06/16 11:32 PM) URINE AND UA Glucose Negative Negative 06/07 [facility] STOOL Medical (06/06/16 11:32 PM) [place] URINE AND UA Color Yellow Yellow 06/07 [facility] STOOL [facility] *NA* [place] (06/06/16 11:32 PM) CARDIAC Troponin-I 0.12 ng/mL 0.00 - 06/07 [facility] ENZYMES 0.40 [facility] IMMUNOLOGY Hep Bs Ab 20.5 <=7.4 06/06 [facility] mIU/mL mIU/mL [facility] IMMUNOLOGY Hep B Core Ab Negative Negative 06/06 [facility] *NA* [place] (06/06/16 3:44 PM) IMMUNOLOGY Hep C Ab Negative 06/06 [facility]* [place] (06/06/16 3:44 PM) [facility]UNOLOGY [facility] Bs [facility] [place] (06/06/16 3:44 PM) CARDIAC Troponin-I null 0.00 - 06/06 [facility] ENZYMES 0.40 [facility] CHEM PANEL Magnesium Lvl 1.7 mg/dL 1.8 - 2.4 06/06 [facility] HEMATOLOGY Bands 0.0 % 0.0 - 11.0 06/06 [facility] HEMATOLOGY Atypical 0.0 % <=0.0 % 06/06 [facility] Lymphs [facility] PARATHYROID Ca Ion WB 1.18 1.05 - 06/06 [facility] PROFILE mMol/L 1. [facility] PARATHYROID Ca Norm WB 1.15 1.05 - 06/06 [facility] PROFILE mMol/L 1. [facility] CARDIAC Troponin-T 0.050 0.000 - 06/06 [facility] ENZYMES ng/mL 0.100 [facility] CARDIAC Troponin-T 0.036 0.000 - 06/06 [facility] ENZYMES ng/mL 0.100 [facility] CARDIAC Total CK 43 unit/L 12 - 191 06/06 [facility] HEMATOLOGY Sed Rate >100 mm/hr 0 - 15 06/06 [facility]2015 [facility] HEMATOLOGY Estimated % 1.2 % 0.0 - 7.5 06/06 [facility] Lysis [facility] HEMATOLOGY ACT (TEG) 128 s 86 - 118 06/06 [facility] Rapid [facility] HEMATOLOGY Angle Rapid 80 degrees 64 - 80 06/06 [facility] HEMATOLOGY Max Amplitude 78 mm 52 - 71 06/06 [facility] HEMATOLOGY G-value Rapid 17.6 K 5.0 - 11.6 06/06 [facility] d/sc /2015 [facility] HEMATOLOGY [place] 0.7 min 06/06 [facility] HEMATOLOGY R-time Rapid 0.8 min 0.4 - 0.7 06/06 [facility] HEMATOLOGY K-time Rapid 0.8 min 0.6 - 2.3 06/06 /2015 [facility] HEMATOLOGY PT 14.6 s 12.0 - 06/06 [facility] 14.7 [facility] HEMATOLOGY PTT 49.0 s 22.9 - 06/06 [facility] 35.8 [facility] HEMATOLOGY INR 1.11 0.85 - 06/06 [facility] 1. [facility] HEMATOLOGY RBC Morph Normal 06/06 [facility] (06/06/16 3:15 AM) [place] HEMATOLOGY Tot Cell Ct 100 06/06 [facility] HEMATOLOGY Basophils # 0.1 K/CMM 0.0 - 0.2 06/06 [facility] IMMUNOLOGY C-REACTIVE 251.0 mg/L <=2.9 mg/L 06/06 [facility] PROTEIN [facility] BLOOD BANK Antibody Scrn Negative 06/06 [facility] RESULTS [facility] (06/06/16 3:00 AM) [place] BLOOD BANK ABO/Rh O POS 06/06 [facility] RESULTS [facility] Spine Spine lumbar EXAM: MRI LUMBAR SPINE WITHOUT CONTRAST 06/06 - [facility] lumbar wo wo /2015 - [facility] contrast MRI Center MRI DATE: 06/06/2016 04:27 [...] EXAM: CT ABDOMEN AND PELVIS WITHOUT CONTRAST - [facility] wo IV s wo IV /2015 - [...] 1view EXAM: Chest 1view DX 06/06 - [facility] DX DX /2016 [facility] DATE: 06/06/2016 0318 hours CDT Read by: [...] Date Comments Source Heart Rate 104 06/21/2016 [facility] Respitory Rate 20 06/21/2016 [facility] Systolic (mm Hg) 160 06/21/2016 [facility] Diastolic (mm Hg) 70 06/21/2016 [facility] Temperature Oral (F) 97.7 F 06/21/2016 [facility] Respitory Rate 16 06/21/2016 [facility] Temperature Oral (F) 96.5 F 06/21/2016 [facility] Systolic (mm Hg) 143 06/21/2016 [facility] Diastolic (mm Hg) 71 06/21/2016 [facility] Respitory Rate 16 06/21/2016 [facility] Heart Rate 94 06/21/2016 [facility] Temperature Oral (F) 96.9 F 06/21/2016 [facility] Heart Rate 87 06/21/2016 [facility] Systolic (mm Hg) 145 06/21/2016 [facility] Diastolic (mm Hg) 69 06/21/2016 [facility] Height 170.18 cm 06/06/2016 [facility] Weight 104.33 06/06/2016 [facility] Weight 104.33 06/06/2016 [facility] Encounters Location Location Encounter Encounter Reason Attending ADM DC Status Source Details Type Number For Provider Date Date Visit [facility] Inpatient [id number] Marisel Coyle 06/06 06/21 DO [place] /2015 [facility] Procedures Procedure Code Date Perfomer Comments Source
--- OUTSIDE RECORDS SUMMARY | 2018-09-11 10:56 | XMS REPORT ---
:1960 [facility] Organization [facility] Address [address] [place] [address] Care Team Providers Name Role Phone KENJUAN [...] Reference Range Comments METHYLMALONIC ACID, SERUM (test tsrk=[id number]) 603 nmol/L 0-378 PERFORMED AT: [facility] [id number] [employer] MILL WORKER: Donnie Youssef MD PHONE: [phone], [id number] 06:50:00To start 15mins after 1st cultureSpecimen: BloodCollected: 2016 01:33 Status: Final Last Updated: 06/21/2017 06:49 (1) To start 15mins after 1st culture Culture Result (Final) (Final) No Growth After 5 DaysCULTURE, [id number] 06:50:00Specimen: BloodCollected: 06/16/2017 01: 20 Status: Final Last Updated: 06/21/2017 06:49 Culture Result (Final) ( Final) No Growth After 5 [id number] 09:05:00 Test Item Value Reference Range Comments [...] mL/min/1.73m\\S\\2 EGFR if Non- 17 Estimated Glomerular Norwegian (test mL/min/1.73m\\S\\2 Filtration Rate (eGFR) code=EGFRNA) Reference [...] of chronic kidney failure. CBC WITH AUTO [id number] 08:50:00 Test Item Value Reference Range Comments [...] code=IG%) 0.7 % 0.0-0.4 CBC WITH AUTO [id number] 01:49:00 Test Item Value Reference Range Comments [...] code=IG%) 0.9 % 0.0-0.4 CBC WITH AUTO [id number] 20:08:00 Test Item Value Reference Range Comments [...] code=IG%) 0.7 % 0.0-0.4 CBC WITH AUTO [id number] 13:58:00 Test Item Value Reference Range Comments [...] 1.0-3.0 IG% (test code=IG%) 0.7 % 0.0-0.4 [id number] 09:14:00 Test Item Value Reference Range Comments [...] mL/min/1.73m\\S\\2 EGFR if Non- 16 Estimated Glomerular Norwegian (test mL/min/1.73m\\S\\2 Filtration Rate (eGFR) code=EGFRNA) Reference [...] of chronic kidney failure. CBC WITH AUTO [id number] 09:05:00 Test Item Value Reference Range Comments [...] code=IG%) 0.7 % 0.0-0.4 CBC WITH AUTO [id number] 02:17:00 Test Item Value Reference Range Comments [...] code=IG%) 0.7 % 0.0-0.4 CBC WITH AUTO [id number] 20:02:00 Test Item Value Reference Range Comments [...] code=IG%) 0.8 % 0.0-0.4 CBC WITH AUTO [id number] 14:17:00 Test Item Value Reference Range Comments [...] 1.0-3.0 IG% (test code=IG%) 0.9 % 0.0-0.4 [id number] 08:47:00 Test Item Value Reference Range Comments Magnesium (test code=MG) 1.9 mg/dl 1.6-2.3 [id number] 08:47:00 Test Item Value Reference Range Comments [...] mL/min/1.73m\\S\\2 EGFR if Non- 17 Estimated Glomerular Norwegian (test mL/min/1.73m\\S\\2 Filtration Rate (eGFR) code=EGFRNA) Reference [...] of chronic kidney failure. CBC WITH AUTO [id number] 08:22:00 Test Item Value Reference Range Comments [...] code=IG%) 0.8 % 0.0-0.4 CBC WITH AUTO [id number] 03:42:00 Test Item Value Reference Range Comments [...] on ############### was changed to 1 by [id number] on 06/17/2017 03:42 Neutrophils (test 68 % 42-75 The value no value code=NEUTR) originally released by on ############### was changed to 68 by [id number] on 06/17/2017 03:42 Lymphocytes (test 16 % 13-42 The value no value code=LYMPH) originally released by on ############### was changed to 16 by [id number] on 06/17/2017 03:42 Monocytes (test 11 % 4-14 The value no value code=MONOS) originally released by on ############### was changed to 11 by [id number] on 06/17/2017 03:42 Eosinophils (test 3 % 1-3 The value no value code=EOS) originally released by on ############### was changed to 3 by [id number] on 06/17/2017 03:42 Basophils (test 1 % 0-1 The value no value code=BASO) originally released by on ############### was changed to 1 by [id number] on 06/17/2017 03:42 RBC Morphology (test Anisocytosis The value no value code=RBCMOR) Hypochromic originally released by on ############### was changed to Anisocytosis Hypochromic by [id number] on 06/17/2017 03:42 Platelet Morphology Giant platelets The value no value (test code=PLTMORPH) originally released by on ############### was changed to Giant platelets by [id number] on 06/17/2017 03:42 CBC WITH AUTO [id number] 19:54:00 Test Item Value Reference Range Comments [...] code=IG%) 0.8 % 0.0-0.4 CBC WITH AUTO [id number] 14:30:00 Test Item Value Reference Range Comments [...] code=IG%) 1.0 % 0.0-0.4 CBC WITH AUTO [id number] 07:35:00 Test Item Value Reference Range Comments [...] code=IG%) 1.2 % 0.0-0.4 HEP B SURFACE [id number] 07:14:00 Test Item Value Reference Range Comments [...] code=HBSAG) Negative (qualifier Negative value) TYPE & [id number] 04:15:00 Test Item Value Reference Range Comments ABO Blood Type (test code=ABO) O Rh (test code=RH) Positive Antibody Screen (test code=ABSCR) Negative Negative ARMBAND# (test code=ARMBAND) [id number] PRO-BNP(B-Type Natriuretic Peptide)2017-06-16 03:42:00 Test Item Value Reference Range Comments Pro-BNP(B-Peptide) 70483 pg/ml 0-125 THE METHODOLOGY FOR DETECTION OF [...] TIBC (test code=TIBC) 161 ug/dl 178-500 B12, [id number] 03:32:00 Test Item Value Reference Range Comments B12 (test code=B12) 717 pg/ml 239-941 [id number] 03:32:00 Test Item Value Reference Range Comments Folic Acid (test code=FOLIC) 5.35 ng/ml 2.76-20.00 IRON [id number] 03:32:00 Test Item Value Reference Range Comments Iron (test code=FETOT) 33 ug/dl 20-149 TIBC (test code=TIBC) 161 ug/dl 178-500 Iron Saturation (test code=FESAT) 20 % 16-62 [id number] 03:05:00 Test Item Value Reference Range Comments [...] (test code=BGCTHB) 9.6 gm/dl 11.5-17.4 O2Hb (test code=HFPI7SK) 94.7 % 95.0-99.0 COHb (test code=BGFCOHB) <2.8 [...] Notified (test code=BGTMNOTIFIED) 03:03 O2 Device (test code=DNZ1ROJ1) ROOM AIR Instrument ID (test code=BGINSTRID) [id number] Reported By (test code=BGREPORTEDBY) LUCY GAMBLE GLYCOSALATED [id number] 02:39:00 Test Item Value Reference Range Comments Hemoglobin A1C (test 5.78 % 4.3-6.0 code=GLYCO) Mean Plasma Glucose (test 128 mg/dl 90-180 WHEN TEST RESULTS FOR A1C code=MPG) EXCEED 14.0, THE LINEAR LIMIT OF THE INSTRUMENT, THE CALCULATED RESULT FOR THE MEAN GLUCOSE IS NOT RELIABLE. CORONARY [id number] 02:22:00 Test Item Value Reference Range Comments [...] vLDL (test code=VLDL) 16 mg/dl 30-60 VANCOMYCIN, [id number] 02:19:00 Test Item Value Reference Range Comments Vancomycin, Trough (test 7.7 ug/ml 15.0-20.0 05/13/2009 Change in Therapeutic code=VANCT) Range, for Trough Level, has been implemented per P&T committee. INTERPRETATION GUIDE: CONSIDER SENSITIVITY REPORT IF NGUYEN IS=1 THERAPEUTIC RANGE IS 15-20 ug/ml IF NGUYEN IS > OR=2 CONSIDER ALTERNATE THERAPY [id number] 02:05:00 Test Item Value Reference Range Comments [...] mL/min/1.73m\\S\\2 EGFR if Non- 23 Estimated Glomerular Norwegian (test mL/min/1.73m\\S\\2 Filtration Rate (eGFR) code=EGFRNA) Reference Intervals Decision Points for 18 years and older and average body mass: >=60 Does not exclude kidney disease. 30 - 59 Suggests moderate chronic kidney disease and indicates the need for further investigation including assessment of proteinuria and cardiovascular factors. < 30 Usually indicates a need for referral for assessment and management of chronic kidney failure. [id number] 02:05:00 Test Item Value Reference Range Comments Magnesium (test code=MG) 1.9 mg/dl 1.6-2.3 CBC WITH AUTO [id number] 02:03:00 Test Item Value Reference Range Comments [...] code=IG%) 0.9 % 0.0-0.4 AFB CULTURE + [id number] 12:29:00 Test Item Value Reference Range Comments CULTURE (BEAKER) (test No acid-fast bacilli isolated igeu=9735) in 42 days AFB SMEAR (BEAKER) (test No acid fast bacilli seen eyzb=344) AFB CULTURE + [id number] 12:28:00 Test Item Value Reference Range Comments CULTURE (BEAKER) (test No acid-fast bacilli isolated ikxi=5765) in 42 days AFB SMEAR (BEAKER) (test No acid fast bacilli seen avui=583) FUNGUS CULTURE + [id number] 17:13:00 Test Item Value Reference Range Comments CULTURE (BEAKER) (test No fungus isolated in 28 days vzjs=1340) FUNGUS SMEAR (BEAKER) (test No fungi seen raqg=0194) FUNGUS CULTURE + [id number] 17:13:00 Test Item Value Reference Range Comments CULTURE (BEAKER) (test No fungus isolated in 28 days utvk=6335) FUNGUS SMEAR (BEAKER) (test No fungi seen kyuf=3035) FUNGUS CULTURE + [id number] 21:46:00 Test Item Value Reference Range Comments CULTURE (BEAKER) (test No fungus isolated in 28 days lviu=9411) FUNGUS SMEAR (BEAKER) (test No fungi seen ndej=7376) POCT-GLUCOSE [id number] 17:22:00 Test Item Value Reference Range Comments POC-GLUCOSE METER (BEAKER) 169 mg/dL 70-110 TESTED AT [address] (test uhcn=6041) [place] [id number] POCT-GLUCOSE [id number] 12:13:00 Test Item Value Reference Range Comments POC-GLUCOSE METER (BEAKER) 165 mg/dL 70-110 TESTED AT [address] (test efad=9746) [place] [id number] POCT-GLUCOSE [id number] 07:48:00 Test Item Value Reference Range Comments POC-GLUCOSE METER (BEAKER) 132 mg/dL 70-110 TESTED AT [address] (test txui=4134) [place] [id number] BASIC METABOLIC [id number] 07:26:00 Test Item Value Reference Range Comments SODIUM (BEAKER) (test 133 meq/L 136-145 hgki=028) POTASSIUM (BEAKER) (test 4.2 meq/L 3.5-5.1 zykg=745) CHLORIDE (BEAKER) (test 101 meq/L 98-107 mkho=986) CO2 (BEAKER) (test 22 meq/L 22-29 itzl=047) BLOOD UREA NITROGEN 38 mg/dL 7-21 (BEAKER) (test llwp=697) CREATININE (BEAKER) (test 4.01 mg/dL 0.57-1.25 ucqg=522) GLUCOSE RANDOM (BEAKER) 110 mg/dL 70-105 (test zdmn=133) CALCIUM (BEAKER) (test 8.7 mg/dL 8.4-10.2 frqb=873) EGFR (BEAKER) (test 15 mL/min/1.73 sq m ESTIMATED GFR IS NOT xffb=8518) ACCURATE CREATININE CLEARANCE IN PREDICTING GLOMERULAR FILTRATION RATE. ESTIMATED GFR IS NOT APPLICABLE FOR DIALYSIS PATIENTS. [id number] 07:25:00 Test Item Value Reference Range Comments PHOSPHORUS (BEAKER) (test bhxt=427) 4.4 mg/dL 2.3-4.7 [id number] 07:25:00 Test Item Value Reference Range Comments MAGNESIUM (BEAKER) (test nnyg=441) 1.9 mg/dL 1.6-2.6 CBC W/PLT COUNT & AUTO [id number] 06:54:00 Test Item Value Reference Range Comments WHITE BLOOD CELL COUNT (BEAKER) (test omzt=951) 12.6 K/ L 4.0-10.0 RED BLOOD CELL COUNT (BEAKER) (test qcsz=859) 2.78 M/ L 4.20-5.80 HEMOGLOBIN (BEAKER) (test kbzf=241) 8.3 GM/DL 13.0-16.8 HEMATOCRIT (BEAKER) (test jjjc=052) 25.1 % 40.0-50.0 MEAN CORPUSCULAR VOLUME (BEAKER) (test gpgn=319) 90.3 fL 82.0-98.0 MEAN CORPUSCULAR HEMOGLOBIN (BEAKER) (test 29.8 pg 27.0-33.0 mxko=268) MEAN CORPUSCULAR HEMOGLOBIN CONC (BEAKER) (test 33.1 GM/DL 32.0-36.0 bfjn=850) RED CELL DISTRIBUTION WIDTH (BEAKER) (test 16.1 % 10.3-14.2 ntqw=066) PLATELET COUNT (BEAKER) (test mnpk=557) 290 K/CU MM 150-430 MEAN PLATELET VOLUME (BEAKER) (test fzhj=343) 7.2 fL 6.5-10.5 NUCLEATED RED BLOOD CELLS (BEAKER) (test 0 /100 WBC 0-0 fudo=361) NEUTROPHILS RELATIVE PERCENT (BEAKER) (test 74 % selk=745) LYMPHOCYTES RELATIVE PERCENT (BEAKER) (test 15 % zsqx=497) MONOCYTES RELATIVE PERCENT (BEAKER) (test 9 % ouom=434) EOSINOPHILS RELATIVE PERCENT (BEAKER) (test 2 % epwg=034) BASOPHILS RELATIVE PERCENT (BEAKER) (test 0 % qjel=195) NEUTROPHILS ABSOLUTE COUNT (BEAKER) (test 9.30 K/ L 1.80-8.00 shmi=041) LYMPHOCYTES ABSOLUTE COUNT (BEAKER) (test 1.89 K/ L 1.48-4.50 jbkt=864) MONOCYTES ABSOLUTE COUNT (BEAKER) (test 1.14 K/ L 0.00-1.30 vjja=226) EOSINOPHILS ABSOLUTE COUNT (BEAKER) (test 0.26 K/ L 0.00-0.50 rimn=283) BASOPHILS ABSOLUTE COUNT (BEAKER) (test 0.05 K/ L 0.00-0.20 flva=856) 0.00POCT-GLUCOSE [id number] 22:31:00 Test Item Value Reference Range Comments POC-GLUCOSE METER (BEAKER) 133 mg/dL 70-110 TESTED AT [address] (test ethx=8490) [place] [address] POCT-GLUCOSE [id number] 17:17:00 Test Item Value Reference Range Comments POC-GLUCOSE METER (BEAKER) 119 mg/dL 70-110 TESTED AT [address] (test jcwt=8886) [place] [address] POCT-GLUCOSE [id number] 11:43:00 Test Item Value Reference Range Comments POC-GLUCOSE METER (BEAKER) 175 mg/dL 70-110 TESTED AT [address] (test iist=6323) [place] [address] CBC W/PLT COUNT & AUTO [id number] 08:39:00 Test Item Value Reference Range Comments WHITE BLOOD CELL COUNT (BEAKER) (test ujmd=981) 13.4 K/ L 4.0-10.0 RED BLOOD CELL COUNT (BEAKER) (test tnqd=760) 2.91 M/ L 4.20-5.80 HEMOGLOBIN (BEAKER) (test atkq=316) 8.6 GM/DL 13.0-16.8 HEMATOCRIT (BEAKER) (test dksn=605) 26.5 % 40.0-50.0 MEAN CORPUSCULAR VOLUME (BEAKER) (test yfyk=707) 91.1 fL 82.0-98.0 MEAN CORPUSCULAR HEMOGLOBIN (BEAKER) (test 29.4 pg 27.0-33.0 tntj=855) MEAN CORPUSCULAR HEMOGLOBIN CONC (BEAKER) (test 32.3 GM/DL 32.0-36.0 hiog=801) RED CELL DISTRIBUTION WIDTH (BEAKER) (test 16.0 % 10.3-14.2 rigu=058) PLATELET COUNT (BEAKER) (test isuo=529) 282 K/CU MM 150-430 MEAN PLATELET VOLUME (BEAKER) (test vmkb=291) 7.7 fL 6.5-10.5 NUCLEATED RED BLOOD CELLS (BEAKER) (test 0 /100 WBC 0-0 ljav=923) NEUTROPHILS RELATIVE PERCENT (BEAKER) (test 72 % pttb=603) LYMPHOCYTES RELATIVE PERCENT (BEAKER) (test 16 % wcyq=322) MONOCYTES RELATIVE PERCENT (BEAKER) (test 10 % ylbb=669) EOSINOPHILS RELATIVE PERCENT (BEAKER) (test 2 % vhuw=264) BASOPHILS RELATIVE PERCENT (BEAKER) (test 1 % yevg=855) NEUTROPHILS ABSOLUTE COUNT (BEAKER) (test 9.63 K/ L 1.80-8.00 axbh=565) LYMPHOCYTES ABSOLUTE COUNT (BEAKER) (test 2.15 K/ L 1.48-4.50 qgtk=391) MONOCYTES ABSOLUTE COUNT (BEAKER) (test 1.32 K/ L 0.00-1.30 keqe=525) EOSINOPHILS ABSOLUTE COUNT (BEAKER) (test 0.23 K/ L 0.00-0.50 kjyj=843) BASOPHILS ABSOLUTE COUNT (BEAKER) (test 0.10 K/ L 0.00-0.20 azzz=041) 0.000.730.001.460.000.000.000.000.000.000.000.000.000.000.000.00(MANUAL DIFFERENTIAL)2016-12-24 08:39:00 Test Item Value Reference Range Comments TOTAL COUNTED (BEAKER) (test cvek=3702) POCT-GLUCOSE [id number] 07:47:00 Test Item Value Reference Range Comments POC-GLUCOSE METER (BEAKER) 139 mg/dL 70-110 TESTED AT [address] (test dlfm=5906) [facility] [address] BASIC METABOLIC [id number] 06:50:00 Test Item Value Reference Range Comments SODIUM (BEAKER) (test 133 meq/L 136-145 cpsy=249) POTASSIUM (BEAKER) (test 4.2 meq/L 3.5-5.1 drrd=386) CHLORIDE (BEAKER) (test 102 meq/L 98-107 kwgu=633) CO2 (BEAKER) (test 21 meq/L 22-29 einn=736) BLOOD UREA NITROGEN 27 mg/dL 7-21 (BEAKER) (test byss=743) CREATININE (BEAKER) (test 3.13 mg/dL 0.57-1.25 dehw=431) GLUCOSE RANDOM (BEAKER) 100 mg/dL 70-105 (test ndwr=401) CALCIUM (BEAKER) (test 8.8 mg/dL 8.4-10.2 qgzd=878) EGFR (BEAKER) (test 21 mL/min/1.73 sq m ESTIMATED GFR IS NOT azeq=6980) ACCURATE CREATININE CLEARANCE IN PREDICTING GLOMERULAR FILTRATION RATE. ESTIMATED GFR IS NOT APPLICABLE FOR DIALYSIS PATIENTS. [id number] 06:41:00 Test Item Value Reference Range Comments PHOSPHORUS (BEAKER) (test tnnq=677) 2.9 mg/dL 2.3-4.7 [id number] 06:41:00 Test Item Value Reference Range Comments MAGNESIUM (BEAKER) (test peux=613) 1.7 mg/dL 1.6-2.6 POCT-GLUCOSE [id number] 21:52:00 Test Item Value Reference Range Comments POC-GLUCOSE METER (BEAKER) 97 mg/dL 70-110 TESTED AT [address] (test xnza=3840) [facility] [address] POCT-GLUCOSE [id number] 17:28:00 Test Item Value Reference Range Comments POC-GLUCOSE METER (BEAKER) 105 mg/dL 70-110 TESTED AT [address] (test vbjo=1708) [facility] [address] POCT-GLUCOSE [id number] 12:31:00 Test Item Value Reference Range Comments POC-GLUCOSE METER (BEAKER) 215 mg/dL 70-110 TESTED AT [address] (test yjnp=1968) [facility] [address] POCT-GLUCOSE [id number] 08:19:00 Test Item Value Reference Range Comments POC-GLUCOSE METER (BEAKER) 135 mg/dL 70-110 TESTED AT [facility] [address] (test tawq=7640) [facility] [address] CBC W/PLT COUNT & AUTO [id number] 07:19:00 Test Item Value Reference Range Comments WHITE BLOOD CELL COUNT (BEAKER) (test odao=954) 15.0 K/ L 4.0-10.0 RED BLOOD CELL COUNT (BEAKER) (test gibe=242) 3.04 M/ L 4.20-5.80 HEMOGLOBIN (BEAKER) (test dcdm=970) 8.8 GM/DL 13.0-16.8 HEMATOCRIT (BEAKER) (test wzde=846) 27.3 % 40.0-50.0 MEAN CORPUSCULAR VOLUME (BEAKER) (test cain=761) 89.8 fL 82.0-98.0 MEAN CORPUSCULAR HEMOGLOBIN (BEAKER) (test 29.0 pg 27.0-33.0 airs=121) MEAN CORPUSCULAR HEMOGLOBIN CONC (BEAKER) (test 32.3 GM/DL 32.0-36.0 ggwq=295) RED CELL DISTRIBUTION WIDTH (BEAKER) (test 17.0 % 10.3-14.2 gens=589) PLATELET COUNT (BEAKER) (test oelp=639) 285 K/CU MM 150-430 MEAN PLATELET VOLUME (BEAKER) (test xovo=839) 7.2 fL 6.5-10.5 NUCLEATED RED BLOOD CELLS (BEAKER) (test 0 /100 WBC 0-0 gvbu=014) NEUTROPHILS RELATIVE PERCENT (BEAKER) (test 77 % lygg=877) LYMPHOCYTES RELATIVE PERCENT (BEAKER) (test 11 % zito=558) MONOCYTES RELATIVE PERCENT (BEAKER) (test 11 % fdlh=308) EOSINOPHILS RELATIVE PERCENT (BEAKER) (test 1 % nuol=262) BASOPHILS RELATIVE PERCENT (BEAKER) (test 0 % fbgi=506) NEUTROPHILS ABSOLUTE COUNT (BEAKER) (test 11.50 K/ L 1.80-8.00 tzcx=078) LYMPHOCYTES ABSOLUTE COUNT (BEAKER) (test 1.72 K/ L 1.48-4.50 fksb=138) MONOCYTES ABSOLUTE COUNT (BEAKER) (test 1.59 K/ L 0.00-1.30 oulx=172) EOSINOPHILS ABSOLUTE COUNT (BEAKER) (test 0.17 K/ L 0.00-0.50 hcbr=491) BASOPHILS ABSOLUTE COUNT (BEAKER) (test 0.05 K/ L 0.00-0.20 kkgn=085) [id number] 06:41:00 Test Item Value Reference Range Comments PHOSPHORUS (BEAKER) (test rcvq=292) 2.1 mg/dL 2.3-4.7 [id number] 06:41:00 Test Item Value Reference Range Comments MAGNESIUM (BEAKER) (test crmq=115) 1.8 mg/dL 1.6-2.6 BASIC METABOLIC [id number] 06:41:00 Test Item Value Reference Range Comments SODIUM (BEAKER) (test 134 meq/L 136-145 vcrz=852) POTASSIUM (BEAKER) (test 4.2 meq/L 3.5-5.1 dvyd=193) CHLORIDE (BEAKER) (test 103 meq/L 98-107 abkj=793) CO2 (BEAKER) (test 23 meq/L 22-29 crur=045) BLOOD UREA NITROGEN 18 mg/dL 7-21 (BEAKER) (test bbhv=650) CREATININE (BEAKER) (test 2.20 mg/dL 0.57-1.25 gxal=480) GLUCOSE RANDOM (BEAKER) 105 mg/dL 70-105 (test mwtt=014) CALCIUM (BEAKER) (test 8.5 mg/dL 8.4-10.2 gpgz=192) EGFR (BEAKER) (test 31 mL/min/1.73 sq m ESTIMATED GFR IS NOT qhxu=3269) ACCURATE CREATININE CLEARANCE IN PREDICTING GLOMERULAR FILTRATION RATE. ESTIMATED GFR IS NOT APPLICABLE FOR DIALYSIS PATIENTS. POCT-GLUCOSE [id number] 21:43:00 Test Item Value Reference Range Comments POC-GLUCOSE METER (BEAKER) 278 mg/dL 70-110 TESTED AT [address] (test gecb=1441) [facility] [address] POCT-GLUCOSE [id number] 18:42:00 Test Item Value Reference Range Comments POC-GLUCOSE METER (BEAKER) 177 mg/dL 70-110 TESTED AT [address] (test tfrj=1467) [facility] [address] POCT-GLUCOSE [id number] 14:53:00 Test Item Value Reference Range Comments POC-GLUCOSE METER (BEAKER) 197 mg/dL 70-110 TESTED AT [place] [id number] [facility] (test vokr=0945) [facility] [address] CBC W/PLT COUNT & AUTO [id number] 12:20:00 Test Item Value Reference Range Comments WHITE BLOOD CELL COUNT (BEAKER) (test ezdf=073) 13.6 K/ L 4.0-10.0 RED BLOOD CELL COUNT (BEAKER) (test bmvv=670) 2.85 M/ L 4.20-5.80 HEMOGLOBIN (BEAKER) (test pwfh=927) 8.3 GM/DL 13.0-16.8 HEMATOCRIT (BEAKER) (test kumb=359) 25.8 % 40.0-50.0 MEAN CORPUSCULAR VOLUME (BEAKER) (test usyf=899) 90.6 fL 82.0-98.0 MEAN CORPUSCULAR HEMOGLOBIN (BEAKER) (test 29.3 pg 27.0-33.0 ezyj=339) MEAN CORPUSCULAR HEMOGLOBIN CONC (BEAKER) (test 32.3 GM/DL 32.0-36.0 zbms=808) RED CELL DISTRIBUTION WIDTH (BEAKER) (test 16.7 % 10.3-14.2 qsxb=767) PLATELET COUNT (BEAKER) (test lzuj=896) 252 K/CU MM 150-430 MEAN PLATELET VOLUME (BEAKER) (test wmuq=482) 7.4 fL 6.5-10.5 NUCLEATED RED BLOOD CELLS (BEAKER) (test 0 /100 WBC 0-0 bfxk=517) NEUTROPHILS RELATIVE PERCENT (BEAKER) (test 75 % glqy=885) LYMPHOCYTES RELATIVE PERCENT (BEAKER) (test 13 % dwzh=397) MONOCYTES RELATIVE PERCENT (BEAKER) (test 10 % fiss=398) EOSINOPHILS RELATIVE PERCENT (BEAKER) (test 2 % cnji=005) BASOPHILS RELATIVE PERCENT (BEAKER) (test 0 % obrz=664) NEUTROPHILS ABSOLUTE COUNT (BEAKER) (test 10.20 K/ L 1.80-8.00 esad=179) LYMPHOCYTES ABSOLUTE COUNT (BEAKER) (test 1.78 K/ L 1.48-4.50 lpec=466) MONOCYTES ABSOLUTE COUNT (BEAKER) (test 1.32 K/ L 0.00-1.30 morl=160) EOSINOPHILS ABSOLUTE COUNT (BEAKER) (test 0.22 K/ L 0.00-0.50 zyfh=360) BASOPHILS ABSOLUTE COUNT (BEAKER) (test 0.06 K/ L 0.00-0.20 erde=001) 0.00POCT-GLUCOSE [id number] 08:28:00 Test Item Value Reference Range Comments POC-GLUCOSE METER (BEAKER) 132 mg/dL 70-110 TESTED AT [facility] [address] [facility] (test yuzw=3922) [facility] [address] BASIC METABOLIC [id number] 07:26:00 Test Item Value Reference Range Comments SODIUM (BEAKER) (test 131 meq/L 136-145 asze=485) POTASSIUM (BEAKER) (test 4.2 meq/L 3.5-5.1 vpnx=281) CHLORIDE (BEAKER) (test 98 meq/L 98-107 awzc=784) CO2 (BEAKER) (test 24 meq/L 22-29 cvgl=281) BLOOD UREA NITROGEN 25 mg/dL 7-21 (BEAKER) (test lqhl=644) CREATININE (BEAKER) (test 3.02 mg/dL 0.57-1.25 tftt=304) GLUCOSE RANDOM (BEAKER) 103 mg/dL 70-105 (test lwut=364) CALCIUM (BEAKER) (test 8.1 mg/dL 8.4-10.2 rxdj=680) EGFR (BEAKER) (test 21 mL/min/1.73 sq m ESTIMATED GFR IS NOT toje=4248) ACCURATE CREATININE CLEARANCE IN PREDICTING GLOMERULAR FILTRATION RATE. ESTIMATED GFR IS NOT APPLICABLE FOR DIALYSIS PATIENTS. [id number] 07:17:00 Test Item Value Reference Range Comments PHOSPHORUS (BEAKER) (test xrtx=816) 3.1 mg/dL 2.3-4.7 [id number] 07:17:00 Test Item Value Reference Range Comments MAGNESIUM (BEAKER) (test tifc=549) 1.8 mg/dL 1.6-2.6 CALCIUM, [id number] 05:38:00 Test Item Value Reference Range Comments CALCIUM IONIZED (BEAKER) (test flue=855) 1.09 mmol/L 1.12-1.27 PH, BLOOD (BEAKER) (test xyhh=4127) 7.45 POCT-GLUCOSE [id number] 21:45:00 Test Item Value Reference Range Comments POC-GLUCOSE METER (BEAKER) 121 mg/dL 70-110 TESTED AT [address] (test pxox=6957) [facility] [address] POCT-GLUCOSE [id number] 16:48:00 Test Item Value Reference Range Comments POC-GLUCOSE METER (BEAKER) 157 mg/dL 70-110 TESTED AT [address] (test xvgl=7041) [facility] [address] POCT-GLUCOSE [id number] 12:16:00 Test Item Value Reference Range Comments POC-GLUCOSE METER (BEAKER) 247 mg/dL 70-110 TESTED AT [address] (test elkw=6203) [facility] [address] POCT-GLUCOSE [id number] 08:14:00 Test Item Value Reference Range Comments POC-GLUCOSE METER (BEAKER) 166 mg/dL 70-110 TESTED AT [address] (test mvhv=5377) [facility] [address] BASIC METABOLIC [id number] 07:58:00 Test Item Value Reference Range Comments SODIUM (BEAKER) (test 131 meq/L 136-145 rnjj=876) POTASSIUM (BEAKER) (test 3.9 meq/L 3.5-5.1 xtvf=696) CHLORIDE (BEAKER) (test 99 meq/L 98-107 liio=703) CO2 (BEAKER) (test 26 meq/L 22-29 eykf=617) BLOOD UREA NITROGEN 18 mg/dL 7-21 (BEAKER) (test tlvb=745) CREATININE (BEAKER) (test 2.32 mg/dL 0.57-1.25 pzok=861) GLUCOSE RANDOM (BEAKER) 145 mg/dL 70-105 (test mkzk=141) CALCIUM (BEAKER) (test 8.1 mg/dL 8.4-10.2 eimk=053) EGFR (BEAKER) (test 29 mL/min/1.73 sq m ESTIMATED GFR IS NOT kkca=5731) ACCURATE CREATININE CLEARANCE IN PREDICTING GLOMERULAR FILTRATION RATE. ESTIMATED GFR IS NOT APPLICABLE FOR DIALYSIS PATIENTS. CBC W/PLT COUNT & AUTO [id number] 07:50:00 Test Item Value Reference Range Comments WHITE BLOOD CELL COUNT (BEAKER) (test nzov=435) 15.3 K/ L 4.0-10.0 RED BLOOD CELL COUNT (BEAKER) (test ufjg=496) 3.00 M/ L 4.20-5.80 HEMOGLOBIN (BEAKER) (test shxd=504) 8.4 GM/DL 13.0-16.8 HEMATOCRIT (BEAKER) (test irhs=060) 27.3 % 40.0-50.0 MEAN CORPUSCULAR VOLUME (BEAKER) (test pciz=013) 90.9 fL 82.0-98.0 MEAN CORPUSCULAR HEMOGLOBIN (BEAKER) (test 28.0 pg 27.0-33.0 ujhq=764) MEAN CORPUSCULAR HEMOGLOBIN CONC (BEAKER) (test 30.8 GM/DL 32.0-36.0 wrdz=096) RED CELL DISTRIBUTION WIDTH (BEAKER) (test 15.9 % 10.3-14.2 shuw=068) PLATELET COUNT (BEAKER) (test gxvt=704) 271 K/CU MM 150-430 MEAN PLATELET VOLUME (BEAKER) (test auzt=130) 7.4 fL 6.5-10.5 NUCLEATED RED BLOOD CELLS (BEAKER) (test 0 /100 WBC 0-0 veli=233) NEUTROPHILS RELATIVE PERCENT (BEAKER) (test 76 % athw=984) LYMPHOCYTES RELATIVE PERCENT (BEAKER) (test 14 % juog=010) MONOCYTES RELATIVE PERCENT (BEAKER) (test 9 % khdk=940) EOSINOPHILS RELATIVE PERCENT (BEAKER) (test 1 % syjx=260) BASOPHILS RELATIVE PERCENT (BEAKER) (test 0 % tdxw=852) NEUTROPHILS ABSOLUTE COUNT (BEAKER) (test 11.60 K/ L 1.80-8.00 jvrz=644) LYMPHOCYTES ABSOLUTE COUNT (BEAKER) (test 2.11 K/ L 1.48-4.50 cdod=690) MONOCYTES ABSOLUTE COUNT (BEAKER) (test 1.36 K/ L 0.00-1.30 kktz=539) EOSINOPHILS ABSOLUTE COUNT (BEAKER) (test 0.17 K/ L 0.00-0.50 bhso=675) BASOPHILS ABSOLUTE COUNT (BEAKER) (test 0.06 K/ L 0.00-0.20 ddyr=290) [id number] 07:24:00 Test Item Value Reference Range Comments PHOSPHORUS (BEAKER) (test vjlm=852) 2.1 mg/dL 2.3-4.7 [id number] 07:24:00 Test Item Value Reference Range Comments MAGNESIUM (BEAKER) (test fmej=777) 1.6 mg/dL 1.6-2.6 POCT-GLUCOSE [id number] 20:38:00 Test Item Value Reference Range Comments POC-GLUCOSE METER (BEAKER) 191 mg/dL 70-110 TESTED AT [address] (test pjxq=6232) [place] [id number] POCT-GLUCOSE [id number] 17:32:00 Test Item Value Reference Range Comments POC-GLUCOSE METER (BEAKER) 229 mg/dL 70-110 TESTED AT [address] (test bcdm=4998) [place] [address] VANCOMYCIN LEVEL, [id number] 16:51:00 Test Item Value Reference Range Comments VANCOMYCIN TROUGH (BEAKER) (test sarz=629) 17.2 ug/mL 10.0-20.0 At end of dialysis on 12/20/16POCT-GLUCOSE [id number] 11:49:00 Test Item Value Reference Range Comments POC-GLUCOSE METER (BEAKER) 97 mg/dL 70-110 TESTED AT [address] (test jeua=3197) [place] [id number] POCT-GLUCOSE [id number] 07:38:00 Test Item Value Reference Range Comments POC-GLUCOSE METER (BEAKER) 151 mg/dL 70-110 TESTED AT [address] (test doaj=2529) [place] [id number] BASIC METABOLIC [id number] 06:39:00 Test Item Value Reference Range Comments SODIUM (BEAKER) (test 134 meq/L 136-145 fcog=717) POTASSIUM (BEAKER) (test 3.9 meq/L 3.5-5.1 kcov=513) CHLORIDE (BEAKER) (test 102 meq/L 98-107 sjbc=227) CO2 (BEAKER) (test 24 meq/L 22-29 hzqy=036) BLOOD UREA NITROGEN 23 mg/dL 7-21 (BEAKER) (test plom=099) CREATININE (BEAKER) (test 2.91 mg/dL 0.57-1.25 oyrf=968) GLUCOSE RANDOM (BEAKER) 99 mg/dL 70-105 (test vldm=534) CALCIUM (BEAKER) (test 8.2 mg/dL 8.4-10.2 eqrn=025) EGFR (BEAKER) (test 22 mL/min/1.73 sq m ESTIMATED GFR IS NOT buuq=7721) ACCURATE CREATININE CLEARANCE IN PREDICTING GLOMERULAR FILTRATION RATE. ESTIMATED GFR IS NOT APPLICABLE FOR DIALYSIS PATIENTS. [id number] 06:37:00 Test Item Value Reference Range Comments PHOSPHORUS (BEAKER) (test ftiq=805) 2.9 mg/dL 2.3-4.7 [id number] 06:37:00 Test Item Value Reference Range Comments MAGNESIUM (BEAKER) (test vbqd=428) 1.6 mg/dL 1.6-2.6 CBC W/PLT COUNT & AUTO [id number] 06:36:00 Test Item Value Reference Range Comments WHITE BLOOD CELL COUNT (BEAKER) (test hlmy=301) 14.1 K/ L 4.0-10.0 RED BLOOD CELL COUNT (BEAKER) (test rtjf=837) 3.01 M/ L 4.20-5.80 HEMOGLOBIN (BEAKER) (test twxd=245) 8.7 GM/DL 13.0-16.8 HEMATOCRIT (BEAKER) (test vtxy=049) 26.8 % 40.0-50.0 MEAN CORPUSCULAR VOLUME (BEAKER) (test vgpf=610) 88.9 fL 82.0-98.0 MEAN CORPUSCULAR HEMOGLOBIN (BEAKER) (test 28.8 pg 27.0-33.0 hvjv=748) MEAN CORPUSCULAR HEMOGLOBIN CONC (BEAKER) (test 32.5 GM/DL 32.0-36.0 vniu=938) RED CELL DISTRIBUTION WIDTH (BEAKER) (test 16.3 % 10.3-14.2 ktph=950) PLATELET COUNT (BEAKER) (test betb=008) 242 K/CU MM 150-430 MEAN PLATELET VOLUME (BEAKER) (test xvsi=229) 6.9 fL 6.5-10.5 NUCLEATED RED BLOOD CELLS (BEAKER) (test 0 /100 WBC 0-0 hbrn=926) NEUTROPHILS RELATIVE PERCENT (BEAKER) (test 73 % cpjw=017) LYMPHOCYTES RELATIVE PERCENT (BEAKER) (test 15 % aiez=056) MONOCYTES RELATIVE PERCENT (BEAKER) (test 9 % jsql=659) EOSINOPHILS RELATIVE PERCENT (BEAKER) (test 2 % pmlb=359) BASOPHILS RELATIVE PERCENT (BEAKER) (test 0 % hyhp=361) NEUTROPHILS ABSOLUTE COUNT (BEAKER) (test 10.30 K/ L 1.80-8.00 eiea=609) LYMPHOCYTES ABSOLUTE COUNT (BEAKER) (test 2.14 K/ L 1.48-4.50 innk=653) MONOCYTES ABSOLUTE COUNT (BEAKER) (test 1.33 K/ L 0.00-1.30 aknu=960) EOSINOPHILS ABSOLUTE COUNT (BEAKER) (test 0.29 K/ L 0.00-0.50 tywc=611) BASOPHILS ABSOLUTE COUNT (BEAKER) (test 0.06 K/ L 0.00-0.20 conu=882) 0.00CALCIUM, [id number] 06:24:00 Test Item Value Reference Range Comments CALCIUM IONIZED (BEAKER) (test hmac=670) 1.08 mmol/L 1.12-1.27 PH, BLOOD (BEAKER) (test zrml=3217) 7.46 POCT-GLUCOSE [id number] 22:24:00 Test Item Value Reference Range Comments POC-GLUCOSE METER (BEAKER) 166 mg/dL 70-110 TESTED AT [address] (test zsaj=5573) [place] [id number] POCT-GLUCOSE [id number] 16:17:00 Test Item Value Reference Range Comments POC-GLUCOSE METER (BEAKER) 132 mg/dL 70-110 TESTED AT [address] (test lddj=0869) [place] [address] POCT-GLUCOSE [id number] 12:16:00 Test Item Value Reference Range Comments POC-GLUCOSE METER (BEAKER) 90 mg/dL 70-110 TESTED AT [address] (test eclx=9328) [place] [address] POCT-GLUCOSE [id number] 08:13:00 Test Item Value Reference Range Comments POC-GLUCOSE METER (BEAKER) 111 mg/dL 70-110 TESTED AT [address] (test tqai=3673) [place] [address] CBC W/PLT COUNT & AUTO [id number] 07:40:00 Test Item Value Reference Range Comments WHITE BLOOD CELL COUNT (BEAKER) (test gsjb=801) 11.9 K/ L 4.0-10.0 RED BLOOD CELL COUNT (BEAKER) (test doth=851) 3.11 M/ L 4.20-5.80 HEMOGLOBIN (BEAKER) (test oavq=909) 8.9 GM/DL 13.0-16.8 HEMATOCRIT (BEAKER) (test jzyc=795) 28.0 % 40.0-50.0 MEAN CORPUSCULAR VOLUME (BEAKER) (test dmuw=681) 90.3 fL 82.0-98.0 MEAN CORPUSCULAR HEMOGLOBIN (BEAKER) (test 28.7 pg 27.0-33.0 cuuw=804) MEAN CORPUSCULAR HEMOGLOBIN CONC (BEAKER) (test 31.8 GM/DL 32.0-36.0 hbvi=642) RED CELL DISTRIBUTION WIDTH (BEAKER) (test 15.5 % 10.3-14.2 yvvq=428) PLATELET COUNT (BEAKER) (test dnfs=139) 252 K/CU MM 150-430 MEAN PLATELET VOLUME (BEAKER) (test optm=974) 7.1 fL 6.5-10.5 NUCLEATED RED BLOOD CELLS (BEAKER) (test 0 /100 WBC 0-0 tyyi=856) NEUTROPHILS RELATIVE PERCENT (BEAKER) (test 69 % rmmt=900) LYMPHOCYTES RELATIVE PERCENT (BEAKER) (test 18 % vasu=343) MONOCYTES RELATIVE PERCENT (BEAKER) (test 11 % dvjy=218) EOSINOPHILS RELATIVE PERCENT (BEAKER) (test 2 % hepx=637) BASOPHILS RELATIVE PERCENT (BEAKER) (test 0 % gomh=373) NEUTROPHILS ABSOLUTE COUNT (BEAKER) (test 8.27 K/ L 1.80-8.00 llxs=660) LYMPHOCYTES ABSOLUTE COUNT (BEAKER) (test 2.09 K/ L 1.48-4.50 cmpz=809) MONOCYTES ABSOLUTE COUNT (BEAKER) (test 1.35 K/ L 0.00-1.30 zbny=091) EOSINOPHILS ABSOLUTE COUNT (BEAKER) (test 0.19 K/ L 0.00-0.50 owfr=224) BASOPHILS ABSOLUTE COUNT (BEAKER) (test 0.04 K/ L 0.00-0.20 adom=081) [id number] 07:29:00 Test Item Value Reference Range Comments PHOSPHORUS (BEAKER) (test smvu=768) 1.8 mg/dL 2.3-4.7 [id number] 07:29:00 Test Item Value Reference Range Comments MAGNESIUM (BEAKER) (test rgqi=395) 1.6 mg/dL 1.6-2.6 BASIC METABOLIC [id number] 07:29:00 Test Item Value Reference Range Comments SODIUM (BEAKER) (test 135 meq/L 136-145 eplf=382) POTASSIUM (BEAKER) (test 3.7 meq/L 3.5-5.1 zsaa=042) CHLORIDE (BEAKER) (test 104 meq/L 98-107 dydj=041) CO2 (BEAKER) (test 24 meq/L 22-29 xika=809) BLOOD UREA NITROGEN 12 mg/dL 7-21 (BEAKER) (test vtzk=336) CREATININE (BEAKER) (test 2.00 mg/dL 0.57-1.25 kkhz=150) GLUCOSE RANDOM (BEAKER) 81 mg/dL 70-105 (test qrre=410) CALCIUM (BEAKER) (test 8.2 mg/dL 8.4-10.2 htdk=705) EGFR (BEAKER) (test 34 mL/min/1.73 sq m ESTIMATED GFR IS NOT lljo=1132) ACCURATE CREATININE CLEARANCE IN PREDICTING GLOMERULAR FILTRATION RATE. ESTIMATED GFR IS NOT APPLICABLE FOR DIALYSIS PATIENTS. POCT-GLUCOSE [id number] 21:13:00 Test Item Value Reference Range Comments POC-GLUCOSE METER (BEAKER) 107 mg/dL 70-110 TESTED AT [address] (test mokc=1574) [facility] [address] POCT-GLUCOSE [id number] 17:33:00 Test Item Value Reference Range Comments POC-GLUCOSE METER (BEAKER) 131 mg/dL 70-110 TESTED AT [address] (test eukh=5854) [facility] [address] POCT-GLUCOSE [id number] 13:05:00 Test Item Value Reference Range Comments POC-GLUCOSE METER (BEAKER) 188 mg/dL 70-110 TESTED AT [address] (test gbms=1305) [facility] [address] POCT-GLUCOSE [id number] 09:01:00 Test Item Value Reference Range Comments POC-GLUCOSE METER (BEAKER) 103 mg/dL 70-110 TESTED AT [place] [id number] [facility] (test sgsl=2779) [facility] [address] CBC W/PLT COUNT & AUTO [id number] 07:08:00 Test Item Value Reference Range Comments WHITE BLOOD CELL COUNT (BEAKER) (test gqem=057) 12.7 K/ L 4.0-10.0 RED BLOOD CELL COUNT (BEAKER) (test rtxd=366) 3.09 M/ L 4.20-5.80 HEMOGLOBIN (BEAKER) (test bjni=491) 9.0 GM/DL 13.0-16.8 HEMATOCRIT (BEAKER) (test hwbz=589) 27.4 % 40.0-50.0 MEAN CORPUSCULAR VOLUME (BEAKER) (test cvtd=266) 88.8 fL 82.0-98.0 MEAN CORPUSCULAR HEMOGLOBIN (BEAKER) (test 29.0 pg 27.0-33.0 pjrt=853) MEAN CORPUSCULAR HEMOGLOBIN CONC (BEAKER) (test 32.7 GM/DL 32.0-36.0 qxga=605) RED CELL DISTRIBUTION WIDTH (BEAKER) (test 15.7 % 10.3-14.2 klky=773) PLATELET COUNT (BEAKER) (test uhpc=142) 257 K/CU MM 150-430 MEAN PLATELET VOLUME (BEAKER) (test pcps=836) 7.0 fL 6.5-10.5 NUCLEATED RED BLOOD CELLS (BEAKER) (test 0 /100 WBC 0-0 hmua=918) NEUTROPHILS RELATIVE PERCENT (BEAKER) (test 74 % hmdf=878) LYMPHOCYTES RELATIVE PERCENT (BEAKER) (test 14 % ejat=480) MONOCYTES RELATIVE PERCENT (BEAKER) (test 9 % ybib=540) EOSINOPHILS RELATIVE PERCENT (BEAKER) (test 2 % wegn=614) BASOPHILS RELATIVE PERCENT (BEAKER) (test 0 % iemp=351) NEUTROPHILS ABSOLUTE COUNT (BEAKER) (test 9.38 K/ L 1.80-8.00 dxmo=187) LYMPHOCYTES ABSOLUTE COUNT (BEAKER) (test 1.80 K/ L 1.48-4.50 hbia=186) MONOCYTES ABSOLUTE COUNT (BEAKER) (test 1.20 K/ L 0.00-1.30 qfjc=671) EOSINOPHILS ABSOLUTE COUNT (BEAKER) (test 0.24 K/ L 0.00-0.50 iksp=848) BASOPHILS ABSOLUTE COUNT (BEAKER) (test 0.05 K/ L 0.00-0.20 gbfx=444) [id number] 06:17:00 Test Item Value Reference Range Comments PHOSPHORUS (BEAKER) (test msum=568) 2.4 mg/dL 2.3-4.7 [id number] 06:17:00 Test Item Value Reference Range Comments MAGNESIUM (BEAKER) (test foxa=857) 1.5 mg/dL 1.6-2.6 BASIC METABOLIC [id number] 06:17:00 Test Item Value Reference Range Comments SODIUM (BEAKER) (test 135 meq/L 136-145 imoi=518) POTASSIUM (BEAKER) (test 3.7 meq/L 3.5-5.1 zpfv=905) CHLORIDE (BEAKER) (test 104 meq/L 98-107 umvt=495) CO2 (BEAKER) (test 23 meq/L 22-29 zbuz=355) BLOOD UREA NITROGEN 24 mg/dL 7-21 (BEAKER) (test gwvp=657) CREATININE (BEAKER) (test 2.70 mg/dL 0.57-1.25 tafi=316) GLUCOSE RANDOM (BEAKER) 93 mg/dL 70-105 (test bprj=333) CALCIUM (BEAKER) (test 8.4 mg/dL 8.4-10.2 zxzl=247) EGFR (BEAKER) (test 24 mL/min/1.73 sq m ESTIMATED GFR IS NOT ioyg=4331) ACCURATE CREATININE CLEARANCE IN PREDICTING GLOMERULAR FILTRATION RATE. ESTIMATED GFR IS NOT APPLICABLE FOR DIALYSIS PATIENTS. POCT-GLUCOSE [id number] 23:43:00 Test Item Value Reference Range Comments POC-GLUCOSE METER (BEAKER) 100 mg/dL 70-110 TESTED AT [facility] [address] (test yudy=3740) [facility] [address] POCT-GLUCOSE [id number] 17:44:00 Test Item Value Reference Range Comments POC-GLUCOSE METER (BEAKER) 208 mg/dL 70-110 TESTED AT [address] (test zlmi=1352) [facility] [address] ANAEROBIC [id number] 14:43:00 Test Item Value Reference Range Comments CULTURE (BEAKER) (test ddku=7346) No anaerobes isolated ANAEROBIC [id number] 14:42:00 Test Item Value Reference Range Comments CULTURE (BEAKER) (test yrmu=9879) No anaerobes isolated POCT-GLUCOSE [id number] 12:02:00 Test Item Value Reference Range Comments POC-GLUCOSE METER (BEAKER) 208 mg/dL 70-110 TESTED AT [address] (test royu=7208) [place] [address] POCT-GLUCOSE [id number] 09:52:00 Test Item Value Reference Range Comments POC-GLUCOSE METER (BEAKER) 86 mg/dL 70-110 TESTED AT [address] (test chpt=3614) [facility] [address] CBC W/PLT COUNT & AUTO [id number] 07:11:00 Test Item Value Reference Range Comments WHITE BLOOD CELL COUNT (BEAKER) (test bnmv=339) 11.1 K/ L 4.0-10.0 RED BLOOD CELL COUNT (BEAKER) (test jrhf=688) 3.26 M/ L 4.20-5.80 HEMOGLOBIN (BEAKER) (test ntgu=747) 9.6 GM/DL 13.0-16.8 HEMATOCRIT (BEAKER) (test olsz=783) 29.4 % 40.0-50.0 MEAN CORPUSCULAR VOLUME (BEAKER) (test irls=602) 90.2 fL 82.0-98.0 MEAN CORPUSCULAR HEMOGLOBIN (BEAKER) (test 29.5 pg 27.0-33.0 eiwj=711) MEAN CORPUSCULAR HEMOGLOBIN CONC (BEAKER) (test 32.7 GM/DL 32.0-36.0 uchg=292) RED CELL DISTRIBUTION WIDTH (BEAKER) (test 14.7 % 10.3-14.2 sern=553) PLATELET COUNT (BEAKER) (test kqpo=816) 280 K/CU MM 150-430 MEAN PLATELET VOLUME (BEAKER) (test ilfn=260) 6.8 fL 6.5-10.5 NUCLEATED RED BLOOD CELLS (BEAKER) (test 0 /100 WBC 0-0 rbxh=283) NEUTROPHILS RELATIVE PERCENT (BEAKER) (test 73 % mywb=335) LYMPHOCYTES RELATIVE PERCENT (BEAKER) (test 15 % wjvz=556) MONOCYTES RELATIVE PERCENT (BEAKER) (test 10 % ihmh=026) EOSINOPHILS RELATIVE PERCENT (BEAKER) (test 2 % ceca=198) BASOPHILS RELATIVE PERCENT (BEAKER) (test 0 % dhqj=715) NEUTROPHILS ABSOLUTE COUNT (BEAKER) (test 8.08 K/ L 1.80-8.00 lmtk=425) LYMPHOCYTES ABSOLUTE COUNT (BEAKER) (test 1.66 K/ L 1.48-4.50 vlyl=296) MONOCYTES ABSOLUTE COUNT (BEAKER) (test 1.06 K/ L 0.00-1.30 acng=195) EOSINOPHILS ABSOLUTE COUNT (BEAKER) (test 0.26 K/ L 0.00-0.50 isyp=404) BASOPHILS ABSOLUTE COUNT (BEAKER) (test 0.05 K/ L 0.00-0.20 ivob=574) [id number] 06:02:00 Test Item Value Reference Range Comments PHOSPHORUS (BEAKER) (test fidu=911) 1.7 mg/dL 2.3-4.7 [id number] 06:02:00 Test Item Value Reference Range Comments MAGNESIUM (BEAKER) (test zuym=775) 1.5 mg/dL 1.6-2.6 BASIC METABOLIC [id number] 06:02:00 Test Item Value Reference Range Comments SODIUM (BEAKER) (test 136 meq/L 136-145 krhg=242) POTASSIUM (BEAKER) (test 3.9 meq/L 3.5-5.1 zjxq=911) CHLORIDE (BEAKER) (test 103 meq/L 98-107 mxzt=801) CO2 (BEAKER) (test 25 meq/L 22-29 xcjk=384) BLOOD UREA NITROGEN 13 mg/dL 7-21 (BEAKER) (test bdko=677) CREATININE (BEAKER) (test 1.67 mg/dL 0.57-1.25 weuj=911) GLUCOSE RANDOM (BEAKER) 74 mg/dL 70-105 (test yzpq=284) CALCIUM (BEAKER) (test 8.7 mg/dL 8.4-10.2 ejud=287) EGFR (BEAKER) (test 42 mL/min/1.73 sq m ESTIMATED GFR IS NOT ijxr=3220) ACCURATE CREATININE CLEARANCE IN PREDICTING GLOMERULAR FILTRATION RATE. ESTIMATED GFR IS NOT APPLICABLE FOR DIALYSIS PATIENTS. POCT-GLUCOSE [id number] 21:46:00 Test Item Value Reference Range Comments POC-GLUCOSE METER (BEAKER) 83 mg/dL 70-110 TESTED AT [address] (test hhvx=7939) [place] [address] POCT-GLUCOSE [id number] 17:45:00 Test Item Value Reference Range Comments POC-GLUCOSE METER (BEAKER) 83 mg/dL 70-110 TESTED AT [address] (test vbwq=8258) [place] [address] POCT-GLUCOSE [id number] 11:03:00 Test Item Value Reference Range Comments POC-GLUCOSE METER (BEAKER) 152 mg/dL 70-110 TESTED AT [address] (test nbjq=2324) [place] [address] CBC W/PLT COUNT & AUTO [id number] 08:54:00 Test Item Value Reference Range Comments WHITE BLOOD CELL COUNT (BEAKER) (test xqtj=937) 14.2 K/ L 4.0-10.0 RED BLOOD CELL COUNT (BEAKER) (test ojbf=722) 2.99 M/ L 4.20-5.80 HEMOGLOBIN (BEAKER) (test trvw=023) 8.6 GM/DL 13.0-16.8 HEMATOCRIT (BEAKER) (test vadn=381) 27.1 % 40.0-50.0 MEAN CORPUSCULAR VOLUME (BEAKER) (test jtni=592) 90.6 fL 82.0-98.0 MEAN CORPUSCULAR HEMOGLOBIN (BEAKER) (test 28.6 pg 27.0-33.0 ntld=547) MEAN CORPUSCULAR HEMOGLOBIN CONC (BEAKER) (test 31.6 GM/DL 32.0-36.0 svqa=111) RED CELL DISTRIBUTION WIDTH (BEAKER) (test 14.6 % 10.3-14.2 migz=065) PLATELET COUNT (BEAKER) (test nlso=666) 285 K/CU MM 150-430 MEAN PLATELET VOLUME (BEAKER) (test sdlx=291) 7.1 fL 6.5-10.5 NUCLEATED RED BLOOD CELLS (BEAKER) (test 0 /100 WBC 0-0 pqem=127) NEUTROPHILS RELATIVE PERCENT (BEAKER) (test 79 % wlwi=202) LYMPHOCYTES RELATIVE PERCENT (BEAKER) (test 10 % slit=970) MONOCYTES RELATIVE PERCENT (BEAKER) (test 9 % ljru=707) EOSINOPHILS RELATIVE PERCENT (BEAKER) (test 2 % obkp=271) BASOPHILS RELATIVE PERCENT (BEAKER) (test 0 % bvco=035) NEUTROPHILS ABSOLUTE COUNT (BEAKER) (test 11.20 K/ L 1.80-8.00 assk=541) LYMPHOCYTES ABSOLUTE COUNT (BEAKER) (test 1.40 K/ L 1.48-4.50 kawz=128) MONOCYTES ABSOLUTE COUNT (BEAKER) (test 1.30 K/ L 0.00-1.30 plce=774) EOSINOPHILS ABSOLUTE COUNT (BEAKER) (test 0.27 K/ L 0.00-0.50 cikn=915) BASOPHILS ABSOLUTE COUNT (BEAKER) (test 0.04 K/ L 0.00-0.20 xsln=980) 0.00BASIC METABOLIC [id number] 08:46:00 Test Item Value Reference Range Comments SODIUM (BEAKER) (test 138 meq/L 136-145 wjoq=185) POTASSIUM (BEAKER) (test 3.8 meq/L 3.5-5.1 qtds=835) CHLORIDE (BEAKER) (test 103 meq/L 98-107 xfsl=915) CO2 (BEAKER) (test 25 meq/L 22-29 gxen=474) BLOOD UREA NITROGEN 29 mg/dL 7-21 (BEAKER) (test fxdc=076) CREATININE (BEAKER) (test 2.68 mg/dL 0.57-1.25 sqij=656) GLUCOSE RANDOM (BEAKER) 91 mg/dL 70-105 (test wkul=128) CALCIUM (BEAKER) (test 7.9 mg/dL 8.4-10.2 eknk=054) EGFR (BEAKER) (test 25 mL/min/1.73 sq m ESTIMATED GFR IS NOT cqtt=0942) ACCURATE CREATININE CLEARANCE IN PREDICTING GLOMERULAR FILTRATION RATE. ESTIMATED GFR IS NOT APPLICABLE FOR DIALYSIS PATIENTS. VANCOMYCIN LEVEL, [id number] 07:53:00 Test Item Value Reference Range Comments VANCOMYCIN RANDOM (BEAKER) (test vapi=461) 15.1 ug/mL Reference Range: No NormalsPOCT-GLUCOSE [id number] 07:52:00 Test Item Value Reference Range Comments POC-GLUCOSE METER (BEAKER) 126 mg/dL 70-110 TESTED AT [address] (test kaen=9281) [place] [address] [id number] 07:50:00 Test Item Value Reference Range Comments PHOSPHORUS (BEAKER) (test gvvm=379) 2.1 mg/dL 2.3-4.7 [id number] 07:50:00 Test Item Value Reference Range Comments MAGNESIUM (BEAKER) (test mybc=854) 1.7 mg/dL 1.6-2.6 POCT-GLUCOSE [id number] 21:08:00 Test Item Value Reference Range Comments POC-GLUCOSE METER (BEAKER) 234 mg/dL 70-110 TESTED AT [address] (test pjvo=2671) [place] [address] POCT-GLUCOSE [id number] 17:02:00 Test Item Value Reference Range Comments POC-GLUCOSE METER (BEAKER) 230 mg/dL 70-110 TESTED AT [address] (test bqqy=8416) [place] [address] SURGICALLY OBTAINED CULTURE + GRAM [id number] 09:26:00 Test Item Value Reference Range Comments CULTURE (BEAKER) (test <1+ Same organism has been iiwv=4826) isolated from cultures(s) of the same body site and collection date. Repeat identification and susceptibility testing performed only after consultation with the clinical microbiology laboratory.Refer to previous culture ofMethicillin resistant Staphylococcus aureus GRAM STAIN RESULT <1+ WBCs (BEAKER) (test gekk=1329) GRAM STAIN RESULT No organisms seen (BEAKER) (test hjkh=663062) SURGICALLY OBTAINED CULTURE + GRAM [id number] 09:25:00 Test Item Value Reference Range Comments CULTURE (BEAKER) (test METHICILLIN RESISTANT <1+ Methicillin hmpp=6548) STAPHYLOCOCCUS AUREUS resistant Staphylococcus aureus Clindamycin (test code=10) Erythromycin (test code=4) Linezolid (test code=40) Oxacillin (test code=14) Rifampin (test code=43) Tetracycline (test code=2) Trimethoprim + Sulfamethoxazole (test code=47) Vancomycin (test code=13) CULTURE (BEAKER) (test METHICILLIN RESISTANT <1+ Methicillin pdti=39972) STAPHYLOCOCCUS AUREUS resistant Staphylococcus aureusof a second type Clindamycin (test code=10) Erythromycin (test code=4) Linezolid (test code=40) Oxacillin (test code=14) Rifampin (test code=43) Tetracycline (test code=2) Trimethoprim + Sulfamethoxazole (test code=47) Vancomycin (test code=13) GRAM STAIN RESULT No White blood cells (BEAKER) (test witk=6775) seen GRAM STAIN RESULT No organisms seen (BEAKER) (test fbtp=469444) POCT-GLUCOSE [id number] 08:39:00 Test Item Value Reference Range Comments POC-GLUCOSE METER (BEAKER) 129 mg/dL 70-110 TESTED AT [facility] [address] [facility] (test hsse=7451) [facility] [address] CBC W/PLT COUNT & AUTO [id number] 06:51:00 Test Item Value Reference Range Comments WHITE BLOOD CELL COUNT (BEAKER) (test vyzh=700) 17.4 K/ L 4.0-10.0 RED BLOOD CELL COUNT (BEAKER) (test wxds=892) 2.99 M/ L 4.20-5.80 HEMOGLOBIN (BEAKER) (test nsmq=030) 8.9 GM/DL 13.0-16.8 HEMATOCRIT (BEAKER) (test heor=365) 27.1 % 40.0-50.0 MEAN CORPUSCULAR VOLUME (BEAKER) (test evsd=070) 90.6 fL 82.0-98.0 MEAN CORPUSCULAR HEMOGLOBIN (BEAKER) (test 29.6 pg 27.0-33.0 yvdq=355) MEAN CORPUSCULAR HEMOGLOBIN CONC (BEAKER) (test 32.7 GM/DL 32.0-36.0 jtdb=265) RED CELL DISTRIBUTION WIDTH (BEAKER) (test 15.3 % 10.3-14.2 zppx=059) PLATELET COUNT (BEAKER) (test dcus=316) 246 K/CU MM 150-430 MEAN PLATELET VOLUME (BEAKER) (test gbql=275) 6.7 fL 6.5-10.5 NUCLEATED RED BLOOD CELLS (BEAKER) (test 0 /100 WBC 0-0 qsii=361) NEUTROPHILS RELATIVE PERCENT (BEAKER) (test 83 % hhxr=786) LYMPHOCYTES RELATIVE PERCENT (BEAKER) (test 7 % ukrm=553) MONOCYTES RELATIVE PERCENT (BEAKER) (test 9 % nwsu=636) EOSINOPHILS RELATIVE PERCENT (BEAKER) (test 1 % dsrl=576) BASOPHILS RELATIVE PERCENT (BEAKER) (test 0 % evuk=607) NEUTROPHILS ABSOLUTE COUNT (BEAKER) (test 14.50 K/ L 1.80-8.00 sfog=973) LYMPHOCYTES ABSOLUTE COUNT (BEAKER) (test 1.19 K/ L 1.48-4.50 hiho=852) MONOCYTES ABSOLUTE COUNT (BEAKER) (test 1.56 K/ L 0.00-1.30 wgmn=842) EOSINOPHILS ABSOLUTE COUNT (BEAKER) (test 0.13 K/ L 0.00-0.50 wyqj=087) BASOPHILS ABSOLUTE COUNT (BEAKER) (test 0.03 K/ L 0.00-0.20 geii=890) 0.00BASIC METABOLIC [id number] 05:44:00 Test Item Value Reference Range Comments SODIUM (BEAKER) (test 139 meq/L 136-145 hnfw=121) POTASSIUM (BEAKER) (test 3.7 meq/L 3.5-5.1 vrju=749) CHLORIDE (BEAKER) (test 104 meq/L 98-107 uajn=455) CO2 (BEAKER) (test 26 meq/L 22-29 sbna=359) BLOOD UREA NITROGEN 19 mg/dL 7-21 (BEAKER) (test uxiv=123) CREATININE (BEAKER) (test 2.08 mg/dL 0.57-1.25 cwtu=334) GLUCOSE RANDOM (BEAKER) 127 mg/dL 70-105 (test frpu=571) CALCIUM (BEAKER) (test 7.9 mg/dL 8.4-10.2 tifc=281) EGFR (BEAKER) (test 33 mL/min/1.73 sq m ESTIMATED GFR IS NOT gnyf=5577) ACCURATE CREATININE CLEARANCE IN PREDICTING GLOMERULAR FILTRATION RATE. ESTIMATED GFR IS NOT APPLICABLE FOR DIALYSIS PATIENTS. [id number] 05:42:00 Test Item Value Reference Range Comments PHOSPHORUS (BEAKER) (test fyfz=593) 2.3 mg/dL 2.3-4.7 [id number] 05:42:00 Test Item Value Reference Range Comments MAGNESIUM (BEAKER) (test wbyk=802) 1.7 mg/dL 1.6-2.6 CALCIUM, [id number] 05:21:00 Test Item Value Reference Range Comments CALCIUM IONIZED (BEAKER) (test kefh=403) 0.99 mmol/L 1.12-1.27 PH, BLOOD (BEAKER) (test xgcq=2349) 7.44 POCT-GLUCOSE [id number] 21:08:00 Test Item Value Reference Range Comments POC-GLUCOSE METER (BEAKER) 184 mg/dL 70-110 TESTED AT [address] (test glyo=9464) [place] [id number] POCT-GLUCOSE [id number] 18:10:00 Test Item Value Reference Range Comments POC-GLUCOSE METER (BEAKER) 214 mg/dL 70-110 TESTED AT [address] (test kbtj=4265) [place] [id number] POCT-GLUCOSE [id number] 18:04:00 Test Item Value Reference Range Comments POC-GLUCOSE METER (BEAKER) 169 mg/dL 70-110 TESTED AT [address] (test hvcs=6260) [place] [id number] POCT-GLUCOSE [id number] 11:49:00 Test Item Value Reference Range Comments POC-GLUCOSE METER (BEAKER) 126 mg/dL 70-110 TESTED AT [address] (test nbiv=8209) [place] [id number] POCT-GLUCOSE [id number] 08:17:00 Test Item Value Reference Range Comments POC-GLUCOSE METER (BEAKER) 119 mg/dL 70-110 TESTED AT [address] (test glmt=4270) [facility] [address] VANCOMYCIN LEVEL, [id number] 06:32:00 Test Item Value Reference Range Comments VANCOMYCIN RANDOM (BEAKER) (test nvok=411) 13.8 ug/mL Reference Range: No NormalsPOCT-GLUCOSE [id number] 05:54:00 Test Item Value Reference Range Comments POC-GLUCOSE METER (BEAKER) 122 mg/dL 70-110 TESTED AT [address] (test taqh=3329) [facility] [address] B-TYPE NATRIURETIC FACTOR (BNP)2016-12-14 03:44:00 Test Item Value Reference Range Comments B-TYPE NATRIURETIC PEPTIDE (BEAKER) (test 883 pg/mL 0-100 leeq=129) BASIC METABOLIC [id number] 03:40:00 Test Item Value Reference Range Comments SODIUM (BEAKER) (test 140 meq/L 136-145 ritx=430) POTASSIUM (BEAKER) (test 4.5 meq/L 3.5-5.1 ljva=812) CHLORIDE (BEAKER) (test 109 meq/L 98-107 kuwu=702) CO2 (BEAKER) (test 23 meq/L 22-29 hiat=462) BLOOD UREA NITROGEN 21 mg/dL 7-21 (BEAKER) (test ztxw=859) CREATININE (BEAKER) (test 2.96 mg/dL 0.57-1.25 hmfm=966) GLUCOSE RANDOM (BEAKER) 118 mg/dL 70-105 (test xcdp=369) CALCIUM (BEAKER) (test 7.5 mg/dL 8.4-10.2 xpqw=953) EGFR (BEAKER) (test 22 mL/min/1.73 sq m ESTIMATED GFR IS NOT vhjx=2598) ACCURATE CREATININE CLEARANCE IN PREDICTING GLOMERULAR FILTRATION RATE. ESTIMATED GFR IS NOT APPLICABLE FOR DIALYSIS PATIENTS. [id number] 03:37:00 Test Item Value Reference Range Comments PHOSPHORUS (BEAKER) (test wtdu=170) 4.6 mg/dL 2.3-4.7 [id number] 03:37:00 Test Item Value Reference Range Comments MAGNESIUM (BEAKER) (test jeml=343) 1.7 mg/dL 1.6-2.6 CBC W/PLT COUNT & AUTO [id number] 03:36:00 Test Item Value Reference Range Comments WHITE BLOOD CELL COUNT (BEAKER) (test hkzs=686) 23.8 K/ L 4.0-10.0 RED BLOOD CELL COUNT (BEAKER) (test zwol=396) 2.80 M/ L 4.20-5.80 HEMOGLOBIN (BEAKER) (test hcfb=426) 8.3 GM/DL 13.0-16.8 HEMATOCRIT (BEAKER) (test zizw=222) 25.7 % 40.0-50.0 MEAN CORPUSCULAR VOLUME (BEAKER) (test ilmg=697) 91.8 fL 82.0-98.0 MEAN CORPUSCULAR HEMOGLOBIN (BEAKER) (test 29.6 pg 27.0-33.0 rwvz=077) MEAN CORPUSCULAR HEMOGLOBIN CONC (BEAKER) (test 32.2 GM/DL 32.0-36.0 usud=139) RED CELL DISTRIBUTION WIDTH (BEAKER) (test 14.8 % 10.3-14.2 zeov=339) PLATELET COUNT (BEAKER) (test dwhb=876) 261 K/CU MM 150-430 MEAN PLATELET VOLUME (BEAKER) (test aumq=142) 6.4 fL 6.5-10.5 NUCLEATED RED BLOOD CELLS (BEAKER) (test 0 /100 WBC 0-0 aqis=267) NEUTROPHILS RELATIVE PERCENT (BEAKER) (test 88 % bwhn=776) LYMPHOCYTES RELATIVE PERCENT (BEAKER) (test 6 % kyes=381) MONOCYTES RELATIVE PERCENT (BEAKER) (test 6 % xhie=969) EOSINOPHILS RELATIVE PERCENT (BEAKER) (test 0 % dssd=491) BASOPHILS RELATIVE PERCENT (BEAKER) (test 0 % gtvh=013) NEUTROPHILS ABSOLUTE COUNT (BEAKER) (test 21.00 K/ L 1.80-8.00 fcas=778) LYMPHOCYTES ABSOLUTE COUNT (BEAKER) (test 1.16 K/ L 1.48-4.50 yuuz=533) MONOCYTES ABSOLUTE COUNT (BEAKER) (test 1.53 K/ L 0.00-1.30 nmva=802) EOSINOPHILS ABSOLUTE COUNT (BEAKER) (test 0.08 K/ L 0.00-0.50 xuxc=671) BASOPHILS ABSOLUTE COUNT (BEAKER) (test 0.03 K/ L 0.00-0.20 urly=236) 0.00CALCIUM, [id number] 03:20:00 Test Item Value Reference Range Comments CALCIUM IONIZED (BEAKER) (test bpvi=816) 1.02 mmol/L 1.12-1.27 PH, BLOOD (BEAKER) (test gzkr=3676) 7.44 POCT-GLUCOSE [id number] 23:20:00 Test Item Value Reference Range Comments POC-GLUCOSE METER (BEAKER) 129 mg/dL 70-110 TESTED AT [facility] [address] [facility] (test tibb=5674) [facility] [address] POCT-GLUCOSE [id number] 16:47:00 Test Item Value Reference Range Comments POC-GLUCOSE METER (BEAKER) 120 mg/dL 70-110 TESTED AT [facility] [address] (test chxg=7975) [place] [address] SPIN/CONCENTRATION [id number] 13:52:00 Test Item Value Reference Range Comments CONCENTRATION CHARGED (BEAKER) (test rqtu=2252) Done SPIN/CONCENTRATION [id number] 13:52:00 Test Item Value Reference Range Comments CONCENTRATION CHARGED (BEAKER) (test unsi=8629) Done BLOOD GAS, [id number] 08:32:00 Test Item Value Reference Range Comments PH ARTERIAL (BEAKER) (test wnzk=397) 7.41 7.35-7.45 PCO2 ARTERIAL (BEAKER) (test gmqd=014) 45 mmHg 35-45 PO2 ARTERIAL (BEAKER) (test irlu=228) 137 mmHg 80-90 O2 SATURATION ARTERIAL (BEAKER) (test aurg=014) 98.7 % 96.0-97.0 HCO3 ARTERIAL (BEAKER) (test ogvd=550) 28 mmol/L 21-29 BASE EXCESS ARTERIAL (BEAKER) (test axvz=455) 2.8 mmol/L -2.0-3.0 PATIENT TEMPERATURE (BEAKER) (test yqbz=9355) 37.0 C FIO2 (BEAKER) (test rvmq=8070) 40.0 % CBC W/PLT COUNT & AUTO [id number] 08:04:00 Test Item Value Reference Range Comments WHITE BLOOD CELL COUNT (BEAKER) (test shrp=629) 23.6 K/ L 4.0-10.0 RED BLOOD CELL COUNT (BEAKER) (test qqyp=149) 3.04 M/ L 4.20-5.80 HEMOGLOBIN (BEAKER) (test cjhb=198) 8.9 GM/DL 13.0-16.8 HEMATOCRIT (BEAKER) (test jazj=805) 26.9 % 40.0-50.0 MEAN CORPUSCULAR VOLUME (BEAKER) (test nkkc=056) 88.6 fL 82.0-98.0 MEAN CORPUSCULAR HEMOGLOBIN (BEAKER) (test 29.4 pg 27.0-33.0 orge=608) MEAN CORPUSCULAR HEMOGLOBIN CONC (BEAKER) (test 33.2 GM/DL 32.0-36.0 bzkl=682) RED CELL DISTRIBUTION WIDTH (BEAKER) (test 15.4 % 10.3-14.2 upaw=842) PLATELET COUNT (BEAKER) (test nptk=749) 291 K/CU MM 150-430 MEAN PLATELET VOLUME (BEAKER) (test lbws=389) 6.9 fL 6.5-10.5 NUCLEATED RED BLOOD CELLS (BEAKER) (test 0 /100 WBC 0-0 czys=750) NEUTROPHILS RELATIVE PERCENT (BEAKER) (test 89 % dgzn=886) LYMPHOCYTES RELATIVE PERCENT (BEAKER) (test 5 % tcsb=086) MONOCYTES RELATIVE PERCENT (BEAKER) (test 6 % pnen=456) EOSINOPHILS RELATIVE PERCENT (BEAKER) (test 0 % fspw=289) BASOPHILS RELATIVE PERCENT (BEAKER) (test 0 % lezr=610) NEUTROPHILS ABSOLUTE COUNT (BEAKER) (test 21.00 K/ L 1.80-8.00 qzgn=072) LYMPHOCYTES ABSOLUTE COUNT (BEAKER) (test 1.17 K/ L 1.48-4.50 tzqd=215) MONOCYTES ABSOLUTE COUNT (BEAKER) (test 1.37 K/ L 0.00-1.30 umoq=343) EOSINOPHILS ABSOLUTE COUNT (BEAKER) (test 0.04 K/ L 0.00-0.50 sttq=526) BASOPHILS ABSOLUTE COUNT (BEAKER) (test 0.02 K/ L 0.00-0.20 bvqs=826) 0.00(MANUAL DIFFERENTIAL)2016-12-13 08:04:00 Test Item Value Reference Range Comments TOTAL COUNTED (BEAKER) (test sozd=9488) WBC MORPHOLOGY (BEAKER) (test lenx=665) Normal PLT MORPHOLOGY (BEAKER) (test abtj=002) Normal HYPOCHROMIA (BEAKER) (test mzlv=765) 1+ few POCT-GLUCOSE [id number] 07:23:00 Test Item Value Reference Range Comments POC-GLUCOSE METER (BEAKER) 116 mg/dL 70-110 TESTED AT [address] (test cttf=3660) [facility] [address] POCT-GLUCOSE [id number] 06:31:00 Test Item Value Reference Range Comments POC-GLUCOSE METER (BEAKER) 115 mg/dL 70-110 TESTED AT [address] (test uzkg=5777) [facility] [address] CALCIUM, [id number] 05:09:00 Test Item Value Reference Range Comments CALCIUM IONIZED (BEAKER) (test pubj=245) 1.06 mmol/L 1.12-1.27 PH, BLOOD (BEAKER) (test avak=6407) 7.46 BASIC METABOLIC [id number] 04:49:00 Test Item Value Reference Range Comments SODIUM (BEAKER) (test 139 meq/L 136-145 pcfi=912) POTASSIUM (BEAKER) (test 4.5 meq/L 3.5-5.1 nxni=859) CHLORIDE (BEAKER) (test 106 meq/L 98-107 ykgs=184) CO2 (BEAKER) (test 26 meq/L 22-29 ktzk=915) BLOOD UREA NITROGEN 14 mg/dL 7-21 (BEAKER) (test bncx=996) CREATININE (BEAKER) (test 2.20 mg/dL 0.57-1.25 zjer=142) GLUCOSE RANDOM (BEAKER) 138 mg/dL 70-105 (test dznt=856) CALCIUM (BEAKER) (test 7.8 mg/dL 8.4-10.2 yazt=890) EGFR (BEAKER) (test 31 mL/min/1.73 sq m ESTIMATED GFR IS NOT jaqv=7071) ACCURATE CREATININE CLEARANCE IN PREDICTING GLOMERULAR FILTRATION RATE. ESTIMATED GFR IS NOT APPLICABLE FOR DIALYSIS PATIENTS. [id number] 04:47:00 Test Item Value Reference Range Comments PHOSPHORUS (BEAKER) (test aafw=006) 3.8 mg/dL 2.3-4.7 [id number] 04:47:00 Test Item Value Reference Range Comments MAGNESIUM (BEAKER) (test skdx=363) 1.6 mg/dL 1.6-2.6 POCT-GLUCOSE [id number] 00:17:00 Test Item Value Reference Range Comments POC-GLUCOSE METER (BEAKER) 165 mg/dL 70-110 TESTED AT [place] [id number] [facility] (test pxvu=2028) [facility] [address] POCT-GLUCOSE [id number] 19:50:00 Test Item Value Reference Range Comments POC-GLUCOSE METER (BEAKER) 150 mg/dL 70-110 TESTED AT [address] (test bpbg=7011) [facility] [address] GLUCOSE-STAT [id number] 16:40:00 Test Item Value Reference Range Comments GLUCOSE RANDOM (BEAKER) (test qzdb=528) 93 mg/dL 70-110 SODIUM NA-STAT [id number] 16:40:00 Test Item Value Reference Range Comments SODIUM (BEAKER) (test djrl=488) 136 meq/L 135-148 POTASSIUM-STAT [id number] 16:40:00 Test Item Value Reference Range Comments POTASSIUM (BEAKER) (test qxuy=177) 3.8 meq/L 3.6-5.5 BLOOD GAS, [id number] 16:40:00 Test Item Value Reference Range Comments PH ARTERIAL (BEAKER) (test wvsh=159) 7.45 7.35-7.45 PCO2 ARTERIAL (BEAKER) (test cnoy=043) 46 mmHg 35-45 PO2 ARTERIAL (BEAKER) (test zilw=652) 371 mmHg 80-90 O2 SATURATION ARTERIAL (BEAKER) (test cxfr=713) 99.8 % 96.0-97.0 HCO3 ARTERIAL (BEAKER) (test xqmy=101) 31 mmol/L 21-29 BASE EXCESS ARTERIAL (BEAKER) (test ksvo=259) 6.0 mmol/L -2.0-3.0 PATIENT TEMPERATURE (BEAKER) (test cnsj=3920) 37.0 C FIO2 (BEAKER) (test wczf=4238) 60.0 % HGB/HCT (H&H) - STAT [id number] 16:40:00 Test Item Value Reference Range Comments HEMOGLOBIN (BEAKER) (test ekqw=916) 6.3 g/dL 13.0-16.8 HEMATOCRIT (BEAKER) (test kpkz=550) 19.0 % 40.0-50.0 GLUCOSE-STAT [id number] 16:14:00 Test Item Value Reference Range Comments GLUCOSE RANDOM (BEAKER) (test cujn=927) 89 mg/dL 70-110 [id number] 13:22:00 Test Item Value Reference Range Comments PARTIAL THROMBOPLASTIN TIME (BEAKER) (test 80.1 seconds 22.5-36.0 qbxj=121) POCT-GLUCOSE [id number] 11:57:00 Test Item Value Reference Range Comments POC-GLUCOSE METER (BEAKER) 82 mg/dL 70-110 TESTED AT [address] (test kcut=4462) [facility] [address] POCT-GLUCOSE [id number] 08:15:00 Test Item Value Reference Range Comments POC-GLUCOSE METER (BEAKER) 90 mg/dL 70-110 TESTED AT [place] [id number] [facility] (test gnvu=4352) [facility] [address] CBC W/PLT COUNT & AUTO [id number] 05:50:00 Test Item Value Reference Range Comments WHITE BLOOD CELL COUNT (BEAKER) (test jxgp=537) 13.9 K/ L 4.0-10.0 RED BLOOD CELL COUNT (BEAKER) (test mnes=235) 2.42 M/ L 4.20-5.80 HEMOGLOBIN (BEAKER) (test xikq=097) 7.2 GM/DL 13.0-16.8 HEMATOCRIT (BEAKER) (test lutg=854) 21.8 % 40.0-50.0 MEAN CORPUSCULAR VOLUME (BEAKER) (test quyo=503) 90.3 fL 82.0-98.0 MEAN CORPUSCULAR HEMOGLOBIN (BEAKER) (test 29.5 pg 27.0-33.0 vmmw=042) MEAN CORPUSCULAR HEMOGLOBIN CONC (BEAKER) (test 32.7 GM/DL 32.0-36.0 bhxv=897) RED CELL DISTRIBUTION WIDTH (BEAKER) (test 15.9 % 10.3-14.2 ielv=660) PLATELET COUNT (BEAKER) (test bacz=444) 282 K/CU MM 150-430 MEAN PLATELET VOLUME (BEAKER) (test dutn=051) 6.8 fL 6.5-10.5 NUCLEATED RED BLOOD CELLS (BEAKER) (test 0 /100 WBC 0-0 fqnl=542) NEUTROPHILS RELATIVE PERCENT (BEAKER) (test 78 % cbbs=654) LYMPHOCYTES RELATIVE PERCENT (BEAKER) (test 11 % gvij=471) MONOCYTES RELATIVE PERCENT (BEAKER) (test 9 % kqif=930) EOSINOPHILS RELATIVE PERCENT (BEAKER) (test 1 % kjqp=436) BASOPHILS RELATIVE PERCENT (BEAKER) (test 0 % hrjh=283) NEUTROPHILS ABSOLUTE COUNT (BEAKER) (test 10.80 K/ L 1.80-8.00 kpyr=755) LYMPHOCYTES ABSOLUTE COUNT (BEAKER) (test 1.57 K/ L 1.48-4.50 rsff=888) MONOCYTES ABSOLUTE COUNT (BEAKER) (test 1.30 K/ L 0.00-1.30 fqwp=660) EOSINOPHILS ABSOLUTE COUNT (BEAKER) (test 0.20 K/ L 0.00-0.50 vyyc=325) BASOPHILS ABSOLUTE COUNT (BEAKER) (test 0.04 K/ L 0.00-0.20 sqlo=550) 0.00CALCIUM, [id number] 05:43:00 Test Item Value Reference Range Comments CALCIUM IONIZED (BEAKER) (test cqny=658) 0.97 mmol/L 1.12-1.27 PH, BLOOD (BEAKER) (test uxjc=2445) 7.51 BASIC METABOLIC [id number] 05:35:00 Test Item Value Reference Range Comments SODIUM (BEAKER) (test 132 meq/L 136-145 asbx=532) POTASSIUM (BEAKER) (test 4.2 meq/L 3.5-5.1 xvbb=827) CHLORIDE (BEAKER) (test 102 meq/L 98-107 krim=622) CO2 (BEAKER) (test 22 meq/L 22-29 zemf=387) BLOOD UREA NITROGEN 26 mg/dL 7-21 (BEAKER) (test lvji=833) CREATININE (BEAKER) (test 3.57 mg/dL 0.57-1.25 qudg=626) GLUCOSE RANDOM (BEAKER) 69 mg/dL 70-105 (test bvjf=162) CALCIUM (BEAKER) (test 7.6 mg/dL 8.4-10.2 fdvg=022) EGFR (BEAKER) (test 18 mL/min/1.73 sq m ESTIMATED GFR IS NOT fvxj=2936) ACCURATE CREATININE CLEARANCE IN PREDICTING GLOMERULAR FILTRATION RATE. ESTIMATED GFR IS NOT APPLICABLE FOR DIALYSIS PATIENTS. [id number] 05:31:00 Test Item Value Reference Range Comments PHOSPHORUS (BEAKER) (test hmcs=238) 3.7 mg/dL 2.3-4.7 [id number] 05:31:00 Test Item Value Reference Range Comments MAGNESIUM (BEAKER) (test liuc=335) 1.8 mg/dL 1.6-2.6 [id number] 05:30:00 Test Item Value Reference Range Comments PARTIAL THROMBOPLASTIN TIME (BEAKER) (test 44.4 seconds 22.5-36.0 lhbj=569) PROTHROMBIN [id number] 05:29:00 Test Item Value Reference Range Comments PROTIME (BEAKER) (test dsxs=800) 14.5 seconds 11.7-14.7 INR (BEAKER) (test eoww=290) 1.1 <=5.9 RECOMMENDED COUMADIN/WARFARIN INR THERAPY RANGESSTANDARD DOSE: 2.0 - 3.0 Includes: PROPHYLAXIS forvenous thrombosis, systemic embolization; TREATMENT for venous thrombosis and/or pulmonary embolus.HIGH RISK: Target INR is 2.5-3.5 for patients with mechanical heart valves.POCT-GLUCOSE [id number] 22:10:00 Test Item Value Reference Range Comments POC-GLUCOSE METER (BEAKER) 106 mg/dL 70-110 TESTED AT [address] (test qrbq=7320) [place] [address] POCT-GLUCOSE [id number] 17:31:00 Test Item Value Reference Range Comments POC-GLUCOSE METER (BEAKER) 114 mg/dL 70-110 TESTED AT [address] (test arhd=1650) [place] [address] [id number] 15:36:00 Test Item Value Reference Range Comments PARTIAL THROMBOPLASTIN TIME (BEAKER) (test 38.5 seconds 22.5-36.0 acqu=259) PROTHROMBIN [id number] 15:35:00 Test Item Value Reference Range Comments PROTIME (BEAKER) (test lfbd=487) 14.6 seconds 11.7-14.7 INR (BEAKER) (test tzcv=806) 1.2 <=5.9 RECOMMENDED COUMADIN/WARFARIN INR THERAPY RANGESSTANDARD DOSE: 2.0 - 3.0 Includes: PROPHYLAXIS forvenous thrombosis, systemic embolization; TREATMENT for venous thrombosis and/or pulmonary embolus.HIGH RISK: Target INR is 2.5-3.5 for patients with mechanical heart valves.POCT-GLUCOSE [id number] 12:12:00 Test Item Value Reference Range Comments POC-GLUCOSE METER (BEAKER) 130 mg/dL 70-110 TESTED AT [address] (test ejfj=3378) [place] [address] POCT-GLUCOSE [id number] 08:04:00 Test Item Value Reference Range Comments POC-GLUCOSE METER (BEAKER) 96 mg/dL 70-110 TESTED AT [address] (test plum=5375) [facility] [address] VANCOMYCIN LEVEL, [id number] 07:30:00 Test Item Value Reference Range Comments VANCOMYCIN RANDOM (BEAKER) (test flcc=363) 21.2 ug/mL Reference Range: No NormalsPOCT-GLUCOSE [id number] 20:25:00 Test Item Value Reference Range Comments POC-GLUCOSE METER (BEAKER) 152 mg/dL 70-110 TESTED AT [address] (test duqz=6445) [place] [address] POCT-GLUCOSE [id number] 17:23:00 Test Item Value Reference Range Comments POC-GLUCOSE METER (BEAKER) 161 mg/dL 70-110 TESTED AT [address] (test fhte=8425) [place] [address] [id number] 13:34:00 Test Item Value Reference Range Comments PROTIME (BEAKER) (test jbxx=262) 15.4 seconds 11.7-14.7 INR (BEAKER) (test bvio=392) 1.2 <=5.9 PARTIAL THROMBOPLASTIN TIME (BEAKER) (test 51.5 seconds 22.5-36.0 cbny=527) RECOMMENDED COUMADIN/WARFARIN INR THERAPY RANGESSTANDARD DOSE: 2.0 - 3.0 Includes: PROPHYLAXIS forvenous thrombosis, systemic embolization; TREATMENT for venous thrombosis and/or pulmonary embolus.HIGH RISK: Target INR is 2.5-3.5 for patients with mechanical heart valves.POCT-GLUCOSE [id number] 12:11:00 Test Item Value Reference Range Comments POC-GLUCOSE METER (BEAKER) 140 mg/dL 70-110 TESTED AT [address] (test bmxj=9962) [place] [address] CBC W/PLT COUNT & AUTO [id number] 08:02:00 Test Item Value Reference Range Comments WHITE BLOOD CELL COUNT (BEAKER) (test nysh=775) 14.8 K/ L 4.0-10.0 RED BLOOD CELL COUNT (BEAKER) (test rewc=878) 2.40 M/ L 4.20-5.80 HEMOGLOBIN (BEAKER) (test exwh=883) 7.0 GM/DL 13.0-16.8 HEMATOCRIT (BEAKER) (test imeh=098) 21.6 % 40.0-50.0 MEAN CORPUSCULAR VOLUME (BEAKER) (test eqgj=918) 90.0 fL 82.0-98.0 MEAN CORPUSCULAR HEMOGLOBIN (BEAKER) (test 29.2 pg 27.0-33.0 fcoj=114) MEAN CORPUSCULAR HEMOGLOBIN CONC (BEAKER) (test 32.5 GM/DL 32.0-36.0 ewgv=323) RED CELL DISTRIBUTION WIDTH (BEAKER) (test 15.8 % 10.3-14.2 flny=221) PLATELET COUNT (BEAKER) (test qzbj=694) 276 K/CU MM 150-430 MEAN PLATELET VOLUME (BEAKER) (test rgsa=125) 6.8 fL 6.5-10.5 NUCLEATED RED BLOOD CELLS (BEAKER) (test 0 /100 WBC 0-0 zbcp=325) NEUTROPHILS RELATIVE PERCENT (BEAKER) (test 80 % pdtq=521) LYMPHOCYTES RELATIVE PERCENT (BEAKER) (test 10 % qvbh=699) MONOCYTES RELATIVE PERCENT (BEAKER) (test 9 % tkhe=404) EOSINOPHILS RELATIVE PERCENT (BEAKER) (test 1 % dnck=545) BASOPHILS RELATIVE PERCENT (BEAKER) (test 0 % nnap=378) NEUTROPHILS ABSOLUTE COUNT (BEAKER) (test 11.80 K/ L 1.80-8.00 uspi=667) LYMPHOCYTES ABSOLUTE COUNT (BEAKER) (test 1.49 K/ L 1.48-4.50 fkez=991) MONOCYTES ABSOLUTE COUNT (BEAKER) (test 1.28 K/ L 0.00-1.30 gwyz=037) EOSINOPHILS ABSOLUTE COUNT (BEAKER) (test 0.17 K/ L 0.00-0.50 fuvq=993) BASOPHILS ABSOLUTE COUNT (BEAKER) (test 0.04 K/ L 0.00-0.20 ihgt=143) 0.00VANCOMYCIN LEVEL, [id number] 07:43:00 Test Item Value Reference Range Comments VANCOMYCIN RANDOM (BEAKER) (test wstp=903) 31.1 ug/mL Reference Range: No NormalsBASIC METABOLIC [id number] 07:30:00 Test Item Value Reference Range Comments SODIUM (BEAKER) (test 134 meq/L 136-145 xtss=838) POTASSIUM (BEAKER) (test 3.6 meq/L 3.5-5.1 yelb=735) CHLORIDE (BEAKER) (test 100 meq/L 98-107 yjuu=339) CO2 (BEAKER) (test 27 meq/L 22-29 lqqm=772) BLOOD UREA NITROGEN 12 mg/dL 7-21 (BEAKER) (test raiw=901) CREATININE (BEAKER) (test 1.88 mg/dL 0.57-1.25 ieej=438) GLUCOSE RANDOM (BEAKER) 109 mg/dL 70-105 (test lqxb=282) CALCIUM (BEAKER) (test 7.7 mg/dL 8.4-10.2 jcxy=365) EGFR (BEAKER) (test 37 mL/min/1.73 sq m ESTIMATED GFR IS NOT zviu=8178) ACCURATE CREATININE CLEARANCE IN PREDICTING GLOMERULAR FILTRATION RATE. ESTIMATED GFR IS NOT APPLICABLE FOR DIALYSIS PATIENTS. [id number] 07:25:00 Test Item Value Reference Range Comments PHOSPHORUS (BEAKER) (test ongy=285) 2.9 mg/dL 2.3-4.7 [id number] 07:25:00 Test Item Value Reference Range Comments MAGNESIUM (BEAKER) (test dwnz=064) 1.3 mg/dL 1.6-2.6 POCT-GLUCOSE [id number] 07:18:00 Test Item Value Reference Range Comments POC-GLUCOSE METER (BEAKER) 107 mg/dL 70-110 TESTED AT [facility] [address] [facility] (test iktv=9319) [facility] [address] CALCIUM, [id number] 06:57:00 Test Item Value Reference Range Comments CALCIUM IONIZED (BEAKER) (test oaxi=272) 1.04 mmol/L 1.12-1.27 PH, BLOOD (BEAKER) (test cukb=9644) 7.44 BLOOD [id number] 17:00:00 Test Item Value Reference Range Comments CULTURE (BEAKER) (test foki=3410) No growth in 5 days BLOOD [id number] 17:00:00 Test Item Value Reference Range Comments CULTURE (BEAKER) (test ozml=6642) No growth in 5 days POCT-GLUCOSE [id number] 12:01:00 Test Item Value Reference Range Comments POC-GLUCOSE METER (BEAKER) 128 mg/dL 70-110 TESTED AT [facility] [address] [facility] (test osah=7367) [facility] [address] POCT-GLUCOSE [id number] 07:48:00 Test Item Value Reference Range Comments POC-GLUCOSE METER (BEAKER) 100 mg/dL 70-110 TESTED AT [place] [id number] [facility] (test nswa=9163) [facility] [address] VANCOMYCIN LEVEL, [id number] 05:36:00 Test Item Value Reference Range Comments VANCOMYCIN RANDOM (BEAKER) (test ehsx=711) 26.8 ug/mL Reference Range: No NormalsSPUTUM CULTURE + GRAM [id number] 00:09:00 Test Item Value Reference Range Comments CULTURE (BEAKER) (test Oropharyngeal contamination, etmq=5214) specimen rejected. Recollect requested. GRAM STAIN RESULT (BEAKER) No WBCs (test raux=7034) GRAM STAIN RESULT (BEAKER) >25 epithelial cells (test hwja=68811) GRAM STAIN RESULT (BEAKER) 4+ gram positive rods (test ndbt=58060) GRAM STAIN RESULT (BEAKER) 4+ gram positive cocci in pairs (test jcce=822984) GRAM STAIN RESULT (BEAKER) 4+ budding yeast (test wgal=040394) POCT-GLUCOSE [id number] 20:17:00 Test Item Value Reference Range Comments POC-GLUCOSE METER (BEAKER) 111 mg/dL 70-110 TESTED AT [facility] [address] [facility] (test pafo=5878) [facility] [address] TSH/FREE T4 IF [id number] 18:39:00 Test Item Value Reference Range Comments THYROID STIMULATING HORMONE (BEAKER) (test 3.14 uIU/mL 0.35-4.94 iqix=380) VITAMIN B12 AND [id number] 18:39:00 Test Item Value Reference Range Comments VITAMIN B12 (BEAKER) (test unhe=099) 1407 pg/mL 213-816 FOLATE (BEAKER) (test mffl=237) 16.4 ng/mL >=7.0 Effective 09/08/2014: Folate Reference Range ChangeNew: >=7.0 Previous: & gt;=[id number] 18:12:00 Test Item Value Reference Range Comments CALCIUM (BEAKER) (test kjqu=803) 8.2 mg/dL 8.4-10.2 PROTHROMBIN [id number] 18:07:00 Test Item Value Reference Range Comments PROTIME (BEAKER) (test msdd=198) 15.5 seconds 11.7-14.7 INR (BEAKER) (test tmui=227) 1.2 <=5.9 RECOMMENDED COUMADIN/WARFARIN INR THERAPY RANGESSTANDARD DOSE: 2.0 - 3.0 Includes: PROPHYLAXIS forvenous thrombosis, systemic embolization; TREATMENT for venous thrombosis and/or pulmonary embolus.HIGH RISK: Target INR is 2.5-3.5 for patients with mechanical heart valves.[id number] 18:06:00 Test Item Value Reference Range Comments PHOSPHORUS (BEAKER) (test mbpl=111) 3.4 mg/dL 2.3-4.7 [id number] 18:06:00 Test Item Value Reference Range Comments MAGNESIUM (BEAKER) (test qauf=011) 1.5 mg/dL 1.6-2.6 HEPATIC FUNCTION [id number] 18:06:00 Test Item Value Reference Range Comments TOTAL PROTEIN (BEAKER) (test hkot=003) 5.9 gm/dL 6.0-8.3 ALBUMIN (BEAKER) (test ddsg=0861) 2.3 g/dL 3.5-5.0 BILIRUBIN TOTAL (BEAKER) (test oezn=721) 0.4 mg/dL 0.2-1.2 BILIRUBIN DIRECT (BEAKER) (test tuzh=824) 0.2 mg/dL 0.1-0.5 ALKALINE PHOSPHATASE (BEAKER) (test xghv=086) 118 U/L 40-150 AST (SGOT) (BEAKER) (test uumy=685) 11 U/L 5-34 ALT (SGPT) (BEAKER) (test gtcr=972) 7 U/L 6-55 [id number] 17:57:00 Test Item Value Reference Range Comments AMMONIA (BEAKER) (test dbpz=534) 23 mol/L 18-72 POCT-GLUCOSE [id number] 17:55:00 Test Item Value Reference Range Comments POC-GLUCOSE METER (BEAKER) 137 mg/dL 70-110 TESTED AT [address] (test lzas=6809) [facility] [address] POCT-GLUCOSE [id number] 17:01:00 Test Item Value Reference Range Comments POC-GLUCOSE METER (BEAKER) 62 mg/dL 70-110 TESTED AT [place] [id number] [facility] (test qmmb=4244) [facility] [address] [id number] 15:09:00 Test Item Value Reference Range Comments SODIUM (BEAKER) (test jghq=469) 138 meq/L 136-145 POTASSIUM (BEAKER) (test 4.0 meq/L 3.5-5.1 Specimen slightly hemolyzed yold=740) CHLORIDE (BEAKER) (test 105 meq/L 98-107 tmyn=923) CO2 (BEAKER) (test pylf=516) 23 meq/L 22-29 BLOOD GAS, [id number] 14:56:00 Test Item Value Reference Range Comments PH ARTERIAL (BEAKER) (test ozjz=065) 7.53 7.35-7.45 PCO2 ARTERIAL (BEAKER) (test pjrj=514) 35 mmHg 35-45 PO2 ARTERIAL (BEAKER) (test yuig=917) 70 mmHg 80-90 O2 SATURATION ARTERIAL (BEAKER) (test yfln=913) 95.5 % 96.0-97.0 HCO3 ARTERIAL (BEAKER) (test wnni=144) 28 mmol/L 21-29 BASE EXCESS ARTERIAL (BEAKER) (test qaty=166) 5.2 mmol/L -2.0-3.0 PATIENT TEMPERATURE (BEAKER) (test wsqf=2751) 37.3 C FIO2 (BEAKER) (test jvod=3200) 21.0 % CBC W/PLT COUNT & AUTO [id number] 14:56:00 Test Item Value Reference Range Comments WHITE BLOOD CELL COUNT (BEAKER) (test kjdi=860) 18.1 K/ L 4.0-10.0 RED BLOOD CELL COUNT (BEAKER) (test wugx=009) 2.43 M/ L 4.20-5.80 HEMOGLOBIN (BEAKER) (test gqcu=386) 7.3 GM/DL 13.0-16.8 HEMATOCRIT (BEAKER) (test zmsj=757) 22.2 % 40.0-50.0 MEAN CORPUSCULAR VOLUME (BEAKER) (test aali=687) 91.7 fL 82.0-98.0 MEAN CORPUSCULAR HEMOGLOBIN (BEAKER) (test 30.0 pg 27.0-33.0 fncc=610) MEAN CORPUSCULAR HEMOGLOBIN CONC (BEAKER) (test 32.7 GM/DL 32.0-36.0 yfyj=899) RED CELL DISTRIBUTION WIDTH (BEAKER) (test 15.7 % 10.3-14.2 ttmz=062) PLATELET COUNT (BEAKER) (test vmvh=575) 290 K/CU MM 150-430 MEAN PLATELET VOLUME (BEAKER) (test giqd=790) 6.9 fL 6.5-10.5 NUCLEATED RED BLOOD CELLS (BEAKER) (test 0 /100 WBC 0-0 xugc=536) NEUTROPHILS RELATIVE PERCENT (BEAKER) (test 84 % xarp=961) LYMPHOCYTES RELATIVE PERCENT (BEAKER) (test 8 % mzxd=934) MONOCYTES RELATIVE PERCENT (BEAKER) (test 8 % hdrx=078) EOSINOPHILS RELATIVE PERCENT (BEAKER) (test 0 % qizm=818) BASOPHILS RELATIVE PERCENT (BEAKER) (test 0 % ejxv=390) NEUTROPHILS ABSOLUTE COUNT (BEAKER) (test 15.10 K/ L 1.80-8.00 yykn=793) LYMPHOCYTES ABSOLUTE COUNT (BEAKER) (test 1.51 K/ L 1.48-4.50 xwwb=680) MONOCYTES ABSOLUTE COUNT (BEAKER) (test 1.43 K/ L 0.00-1.30 cmyr=923) EOSINOPHILS ABSOLUTE COUNT (BEAKER) (test 0.03 K/ L 0.00-0.50 ranv=880) BASOPHILS ABSOLUTE COUNT (BEAKER) (test 0.02 K/ L 0.00-0.20 qsbr=989) 0.00POCT-GLUCOSE [id number] 12:19:00 Test Item Value Reference Range Comments POC-GLUCOSE METER (BEAKER) 75 mg/dL 70-110 TESTED AT [facility] [address] [facility] (test mqse=6233) [facility] [address] [id number] 09:59:00 Test Item Value Reference Range Comments HAPTOGLOBIN (BEAKER) (test yihx=587) > mg/dL 14- Effective 09/08/2014: Reference Range ChangeNew: 14-258 Previous: 36- 195LACTATE DEHYDROGENASE (LDH)2016-12-08 09:56:00 Test Item Value Reference Range Comments LACTATE DEHYDROGENASE (BEAKER) (test sbti=786) 234 U/L 125-220 [id number] 09:35:00 Test Item Value Reference Range Comments FIBRINOGEN LEVEL (BEAKER) (test gegy=590) 554 mg/dl 225-434 BASIC METABOLIC [id number] 08:56:00 Test Item Value Reference Range Comments SODIUM (BEAKER) (test 139 meq/L 136-145 hwjk=546) POTASSIUM (BEAKER) (test 3.0 meq/L 3.5-5.1 rqvy=960) CHLORIDE (BEAKER) (test 114 meq/L 98-107 zruv=485) CO2 (BEAKER) (test 18 meq/L 22-29 qkli=108) BLOOD UREA NITROGEN 14 mg/dL 7-21 (BEAKER) (test yhui=535) CREATININE (BEAKER) (test 1.68 mg/dL 0.57-1.25 qapb=018) GLUCOSE RANDOM (BEAKER) 65 mg/dL 70-105 (test znob=659) CALCIUM (BEAKER) (test 6.3 mg/dL 8.4-10.2 ayad=476) EGFR (BEAKER) (test 42 mL/min/1.73 sq m ESTIMATED GFR IS NOT zeav=6070) ACCURATE CREATININE CLEARANCE IN PREDICTING GLOMERULAR FILTRATION RATE. ESTIMATED GFR IS NOT APPLICABLE FOR DIALYSIS PATIENTS. CBC W/PLT COUNT & AUTO [id number] 08:55:00 Test Item Value Reference Range Comments WHITE BLOOD CELL COUNT (BEAKER) (test iwmb=663) 12.8 K/ L 4.0-10.0 RED BLOOD CELL COUNT (BEAKER) (test hjva=005) 1.79 M/ L 4.20-5.80 HEMOGLOBIN (BEAKER) (test lmtk=985) 5.4 GM/DL 13.0-16.8 HEMATOCRIT (BEAKER) (test agfu=414) 16.7 % 40.0-50.0 MEAN CORPUSCULAR VOLUME (BEAKER) (test lggq=816) 93.5 fL 82.0-98.0 MEAN CORPUSCULAR HEMOGLOBIN (BEAKER) (test 30.2 pg 27.0-33.0 ojdp=824) MEAN CORPUSCULAR HEMOGLOBIN CONC (BEAKER) (test 32.3 GM/DL 32.0-36.0 jtoe=104) RED CELL DISTRIBUTION WIDTH (BEAKER) (test 15.9 % 10.3-14.2 peym=652) PLATELET COUNT (BEAKER) (test bdso=721) 211 K/CU MM 150-430 MEAN PLATELET VOLUME (BEAKER) (test cflg=072) 6.8 fL 6.5-10.5 NUCLEATED RED BLOOD CELLS (BEAKER) (test 0 /100 WBC 0-0 lbgv=540) NEUTROPHILS RELATIVE PERCENT (BEAKER) (test 82 % qyda=247) LYMPHOCYTES RELATIVE PERCENT (BEAKER) (test 8 % kqdg=030) MONOCYTES RELATIVE PERCENT (BEAKER) (test 9 % ozcq=572) EOSINOPHILS RELATIVE PERCENT (BEAKER) (test 0 % gjwj=291) BASOPHILS RELATIVE PERCENT (BEAKER) (test 0 % jajg=439) NEUTROPHILS ABSOLUTE COUNT (BEAKER) (test 10.50 K/ L 1.80-8.00 idzm=188) LYMPHOCYTES ABSOLUTE COUNT (BEAKER) (test 1.08 K/ L 1.48-4.50 lhat=431) MONOCYTES ABSOLUTE COUNT (BEAKER) (test 1.17 K/ L 0.00-1.30 cjbk=558) EOSINOPHILS ABSOLUTE COUNT (BEAKER) (test 0.06 K/ L 0.00-0.50 kelj=112) BASOPHILS ABSOLUTE COUNT (BEAKER) (test 0.04 K/ L 0.00-0.20 znur=924) 0.00LACTIC ACID, VENOUS, WHOLE [id number] 08:52:00 Test Item Value Reference Range Comments LACTATE BLOOD VENOUS (2) (BEAKER) (test 0.5 mmol/L 0.5-2.2 wtlc=6277) Effective 02/23/2016: Units/Reference Range ChangeNew: 0.5-2.2 mmol/L Previous: 5 -20 mg/dLPOCT-GLUCOSE [id number] 07:40:00 Test Item Value Reference Range Comments POC-GLUCOSE METER (BEAKER) 80 mg/dL 70-110 TESTED AT [facility] [address] (test vlkh=7349) [facility] [address] POCT-GLUCOSE [id number] 21:47:00 Test Item Value Reference Range Comments POC-GLUCOSE METER (BEAKER) 97 mg/dL 70-110 TESTED AT [address] (test dlll=6247) [facility] [address] POCT-GLUCOSE [id number] 17:45:00 Test Item Value Reference Range Comments POC-GLUCOSE METER (BEAKER) 115 mg/dL 70-110 TESTED AT [address] (test kztr=2433) [facility] [address] POCT-GLUCOSE [id number] 12:56:00 Test Item Value Reference Range Comments POC-GLUCOSE METER (BEAKER) 120 mg/dL 70-110 TESTED AT [address] (test ltep=4549) [facility] [address] POCT-GLUCOSE [id number] 12:56:00 Test Item Value Reference Range Comments POC-GLUCOSE METER (BEAKER) 107 mg/dL 70-110 TESTED AT [address] (test zkjl=5945) [facility] [address] CBC W/PLT COUNT & AUTO [id number] 11:18:00 Test Item Value Reference Range Comments WHITE BLOOD CELL COUNT (BEAKER) (test pshq=381) 21.4 K/ L 4.0-10.0 RED BLOOD CELL COUNT (BEAKER) (test rtja=234) 2.63 M/ L 4.20-5.80 HEMOGLOBIN (BEAKER) (test emwo=066) 7.5 GM/DL 13.0-16.8 HEMATOCRIT (BEAKER) (test xidn=029) 24.1 % 40.0-50.0 MEAN CORPUSCULAR VOLUME (BEAKER) (test ihep=113) 91.8 fL 82.0-98.0 MEAN CORPUSCULAR HEMOGLOBIN (BEAKER) (test 28.6 pg 27.0-33.0 ccod=377) MEAN CORPUSCULAR HEMOGLOBIN CONC (BEAKER) (test 31.1 GM/DL 32.0-36.0 tjkq=420) RED CELL DISTRIBUTION WIDTH (BEAKER) (test 15.4 % 10.3-14.2 jvla=883) PLATELET COUNT (BEAKER) (test nlpo=164) 297 K/CU MM 150-430 MEAN PLATELET VOLUME (BEAKER) (test evfz=698) 7.0 fL 6.5-10.5 NUCLEATED RED BLOOD CELLS (BEAKER) (test 0 /100 WBC 0-0 grcm=970) NEUTROPHILS RELATIVE PERCENT (BEAKER) (test 88 % glrf=572) LYMPHOCYTES RELATIVE PERCENT (BEAKER) (test 6 % ivqy=688) MONOCYTES RELATIVE PERCENT (BEAKER) (test 6 % yere=108) EOSINOPHILS RELATIVE PERCENT (BEAKER) (test 0 % xmus=409) BASOPHILS RELATIVE PERCENT (BEAKER) (test 0 % cvky=254) NEUTROPHILS ABSOLUTE COUNT (BEAKER) (test 18.90 K/ L 1.80-8.00 lzrt=995) LYMPHOCYTES ABSOLUTE COUNT (BEAKER) (test 1.25 K/ L 1.48-4.50 cthy=067) MONOCYTES ABSOLUTE COUNT (BEAKER) (test 1.26 K/ L 0.00-1.30 lskb=869) EOSINOPHILS ABSOLUTE COUNT (BEAKER) (test 0.05 K/ L 0.00-0.50 vwyw=515) BASOPHILS ABSOLUTE COUNT (BEAKER) (test 0.01 K/ L 0.00-0.20 yhix=060) 0.000.520.000.000.560.000.000.000.00(MANUAL DIFFERENTIAL)2016-12-07 11:18:00 Test Item Value Reference Range Comments TOTAL COUNTED (BEAKER) (test vrbj=5148) CATHETER TIP [id number] 09:38:00 Test Item Value Reference Range Comments CULTURE (BEAKER) (test METHICILLIN RESISTANT 15-29 Colonies On eiac=4405) STAPHYLOCOCCUS AUREUS Direct Plate Methicillin resistant Staphylococcus aureus Clindamycin (test code=10) Erythromycin (test code=4) Linezolid (test code=40) Oxacillin (test code=14) Rifampin (test code=43) Tetracycline (test code=2) Trimethoprim + Sulfamethoxazole (test code=47) Vancomycin (test code=13) CULTURE (BEAKER) (test <15 Colonies On Direct bdjy=[id number]) Plate Methicillin resistant Staphylococcus aureusof a second type CALCIUM, [id number] 09:12:00 Test Item Value Reference Range Comments CALCIUM IONIZED (BEAKER) (test lgbb=967) 1.04 mmol/L 1.12-1.27 PH, BLOOD (BEAKER) (test jyug=5350) 7.40 BASIC METABOLIC [id number] 07:52:00 Test Item Value Reference Range Comments SODIUM (BEAKER) (test 134 meq/L 136-145 temi=572) POTASSIUM (BEAKER) (test 4.1 meq/L 3.5-5.1 huri=531) CHLORIDE (BEAKER) (test 103 meq/L 98-107 nghk=405) CO2 (BEAKER) (test 20 meq/L 22-29 chsh=342) BLOOD UREA NITROGEN 37 mg/dL 7-21 (BEAKER) (test rnwy=735) CREATININE (BEAKER) (test 3.25 mg/dL 0.57-1.25 mtoo=235) GLUCOSE RANDOM (BEAKER) 129 mg/dL 70-105 (test cybd=691) CALCIUM (BEAKER) (test 8.1 mg/dL 8.4-10.2 tegr=951) EGFR (BEAKER) (test 20 mL/min/1.73 sq m ESTIMATED GFR IS NOT bkxn=9145) ACCURATE CREATININE CLEARANCE IN PREDICTING GLOMERULAR FILTRATION RATE. ESTIMATED GFR IS NOT APPLICABLE FOR DIALYSIS PATIENTS. [id number] 07:48:00 Test Item Value Reference Range Comments PHOSPHORUS (BEAKER) (test qjio=258) 4.8 mg/dL 2.3-4.7 [id number] 07:48:00 Test Item Value Reference Range Comments MAGNESIUM (BEAKER) (test cpxr=317) 1.9 mg/dL 1.6-2.6 ANAEROBIC [id number] 02:42:00 Test Item Value Reference Range Comments CULTURE (BEAKER) (test yuia=5374) No anaerobes isolated POCT-GLUCOSE [id number] 20:57:00 Test Item Value Reference Range Comments POC-GLUCOSE METER (BEAKER) 191 mg/dL 70-110 TESTED AT [address] (test yacy=4814) [facility] [address] VANCOMYCIN LEVEL, [id number] 17:35:00 Test Item Value Reference Range Comments VANCOMYCIN RANDOM (BEAKER) (test iwso=901) 21.9 ug/mL Reference Range: No NormalsPOCT-GLUCOSE [id number] 13:28:00 Test Item Value Reference Range Comments POC-GLUCOSE METER (BEAKER) 202 mg/dL 70-110 TESTED AT [facility] [address] [place] [address] (test pzvi=4903) [facility] [address] POCT-GLUCOSE [id number] 08:30:00 Test Item Value Reference Range Comments POC-GLUCOSE METER (BEAKER) 144 mg/dL 70-110 TESTED AT [facility] [address] (test idjj=9522) [facility] [address] BASIC METABOLIC [id number] 07:04:00 Test Item Value Reference Range Comments SODIUM (BEAKER) (test 134 meq/L 136-145 ryon=518) POTASSIUM (BEAKER) (test 3.8 meq/L 3.5-5.1 zrcq=459) CHLORIDE (BEAKER) (test 104 meq/L 98-107 lcty=723) CO2 (BEAKER) (test 21 meq/L 22-29 anbm=491) BLOOD UREA NITROGEN 33 mg/dL 7-21 (BEAKER) (test bipe=051) CREATININE (BEAKER) (test 2.91 mg/dL 0.57-1.25 znlj=339) GLUCOSE RANDOM (BEAKER) 124 mg/dL 70-105 (test cmmo=610) CALCIUM (BEAKER) (test 7.8 mg/dL 8.4-10.2 gfkt=721) EGFR (BEAKER) (test 22 mL/min/1.73 sq m ESTIMATED GFR IS NOT ofmk=0235) ACCURATE CREATININE CLEARANCE IN PREDICTING GLOMERULAR FILTRATION RATE. ESTIMATED GFR IS NOT APPLICABLE FOR DIALYSIS PATIENTS. PROTHROMBIN [id number] 07:03:00 Test Item Value Reference Range Comments PROTIME (BEAKER) (test zovz=288) 14.7 seconds 11.7-14.7 INR (BEAKER) (test dnxh=669) 1.2 <=5.9 RECOMMENDED COUMADIN/WARFARIN INR THERAPY RANGESSTANDARD DOSE: 2.0 - 3.0 Includes: PROPHYLAXIS forvenous thrombosis, systemic embolization; TREATMENT for venous thrombosis and/or pulmonary embolus.HIGH RISK: Target INR is 2.5-3.5 for patients with mechanical heart valves.[id number] 07:01:00 Test Item Value Reference Range Comments PHOSPHORUS (BEAKER) (test hexd=597) 3.9 mg/dL 2.3-4.7 [id number] 07:01:00 Test Item Value Reference Range Comments MAGNESIUM (BEAKER) (test rsjb=907) 1.7 mg/dL 1.6-2.6 CALCIUM, [id number] 06:45:00 Test Item Value Reference Range Comments CALCIUM IONIZED (BEAKER) (test nlkj=710) 1.00 mmol/L 1.12-1.27 PH, BLOOD (BEAKER) (test cbgc=1936) 7.43 POCT-GLUCOSE [id number] 21:06:00 Test Item Value Reference Range Comments POC-GLUCOSE METER (BEAKER) 167 mg/dL 70-110 TESTED AT [address] (test edkh=5829) [place] [address] POCT-GLUCOSE [id number] 17:43:00 Test Item Value Reference Range Comments POC-GLUCOSE METER (BEAKER) 212 mg/dL 70-110 TESTED AT [address] (test iprb=1234) [place] [address]
[2018-09-11 11:16] LABS: Absolute Lymphocytes (CBC) 0.5 K/uL (0.7-4.9); Absolute Monocytes 1.9 K/uL (0.1-1.3); Absolute Neutrophil 12.3 K/uL (1.8-8.0); Basophils % 0.5 % (0-1.3); Eosinophils % 0.4 % (0-4.4); Hematocrit 35.1 % (39.6-49.0); Lymphocytes % 3.2 % (15.3-44.8); MCH 24.7 pg (27.0-35.0); MPV 8.6 fL (7.6-11.3); Monocytes % 12.8 % (3.3-12.3); RBC Red Blood Cell Count 4.49 M/uL (4.33-5.43)
[2018-09-11] MEDS ORDERED: ONDANSETRON 4 MG/2 ML VIAL ONE (11:17)
[2018-09-11 11:36] LABS: Albumin 2.8 g/dL (3.4-5.0); Bilirubin Direct 0.3 mg/dL (0-0.2); Bilirubin Total 0.7 mg/dL (0.2-1.0); Potassium 4.3 mmol/L (3.5-5.1); Protein, Total 7.4 g/dL (6.4-8.2)
[2018-09-11 12:06] LABS: Anisocytosis 2+; Blood Morphology Comment NOTED (NOT SEEN); Platelet Estimate ADEQ; Polychromasia 1+; Urine White Blood Cell Casts OK
[2018-09-11] MEDS ORDERED: MORPHINE 4 MG/ML SYR ONE ×2 (12:07→12:56)
--- NOTE | 2018-09-11 13:16 | RAD REPORT ---
EXAM DESCRIPTION: CT - Stone Protocol - 09/11/2018 1:03 pm CLINICAL HISTORY: Flank pain. ABD PAIN COMPARISON: Abdomen Pelvis Wo Contrast dated 03/20/2018 TECHNIQUE: Axial images were obtained without oral or IV contrast. Lack of contrast limits solid org an and vascular assessment. The jufiw-he-herm spans the entirety of the system partially obscuring uppermost abdomen and lung bases. Coronal reformatted images were obtained and reviewed. All CT scans are performed using dose optimization technique as appropriate and may include automated exposure control or mA/KV adjustment according to patient size. FINDINGS: Small bilateral pleural effusions are present with atelectasis or infiltrate in the left l curt base. Small hiatal hernia is present. Imaged portions of the liver and spleen show no suspicious findings on non-contrast imaging. The panc reas and adrenal glands are normal.Atherosclerosis is present. No pathologic lymphadenopathy in the a bdomen or pelvis. No renal stone or hydronephrosis. No perirenal fluid collections. No bowel obstruction, free air, free fluid or abscess. Normal appendix noted. Prominent destructive changes are present involving the L5 vertebral body with hardware in spot place spanning L3-S1. Prominent retained fecal material seen in the rectum. IMPRESSION: Moderate fecal retention in the rectum. Bilateral pleural effusions, slightly larger on the left. Prominent degenerative and destructive changes lower lumbar spine with hardware in place.
--- NOTE | 2018-09-11 13:30 | ER ---
Nurse's Notes [facility] Name: Federico Martinez Age: 58 yrs Sex: Male : 1960 Arrival Date: 09/11/2018 Time: 10:51 Bed 13 Private MD: Diagnosis: Nausea with vomiting, unspecified;Constipation, unspecified Presentation: 09/11 10:52 Presenting complaint: EMS states: Pt resident at assisted, has been vomiting and la1 reports blood in his vomit. [facility] staff reports no visible blood in vomit. Transition of care: patient was not received from another setting of care. Onset of symptoms was September 11, 2018. Risk Assessment: Do you want to hurt yourself or someone else? Patient reports no desire to harm self or others. Initial Sepsis Screen: Does the patient meet any 2 criteria? Yes Does the patient have a suspected source of infection? No. Patient's initial sepsis screen is negative. Care prior to arrival: None. 10:52 Method Of Arrival: EMS: [facility] la1 10:52 Acuity: CHARLES 3 la1 Historical: - Allergies: 10:56 No Known Allergies; la1 - PMHx: 10:56 Anemia; Anxiety; Asthma; Atherosclerotic heart disease; Bipolar disorder; CHF; COPD; la1 Dementia; Depression; Diabetes - IDDM; ESRD; GERD; GI Hemorrhage; Hypertension; insomnia; osteomyelitis; Paraplegia; Parkinsons; Post Laminectomy Syndrome; pressure ulcer of left ankle stage II; Pressure ulcer of right ankle, stage II; Sacral Pressure Ulcer Stage III; Schizophrenia; - Immunization history:: Adult Immunizations up to date. - Social history:: Smoking status: Patient/guardian denies using tobacco. - Ebola Screening: : No symptoms or risks identified at this time. Screenin:16 Abuse screen: Denies threats or abuse. Nutritional screening: No deficits noted. la1 Tuberculosis screening: No symptoms or risk factors identified. Fall Risk No fall in past 12 months (0 pts). Secondary diagnosis (15 points) IV access (20 points). Ambulatory Aid- Crutches/Cane/Walker (15 pts). Gait- Normal/Bed Rest/Wheelchair (0 pts) Mental Status- Oriented to own ability (0 pts). Total Abarca Fall Scale indicates Low Risk Score (25-44 pts). Side Rails Up X 2. Assessment: 11:15 General: Appears in no apparent distress. uncomfortable, Behavior is calm, cooperative. la1 Pain: Complains of pain in right upper quadrant and left upper quadrant. Neuro: Level of Consciousness is awake, alert, obeys commands. Cardiovascular: Capillary refill < 3 seconds Patient's skin is warm and dry. Cardiovascular: Dialysis shunt: in the chest. GI: Abdomen is round non-distended, Pt is actively vomiting bile, Bowel sounds present X 4 quads. Abd is soft and non tender X 4 quads. : No signs and/or symptoms were reported regarding the genitourinary system. 11:41 Reassessment: Attempted to call patient's ex as requested. Gentleman that answered ss the phone states that he will let her know when she wakes up because she is working night and is sleeping. Attempted to call patient's daughter Vika who did not answer. Left VM. 12:04 Reassessment: Patient appears in no apparent distress at this time. No changes from la1 previously documented assessment. Patient and/or family updated on plan of care and expected duration. Pain level reassessed. Patient is alert, oriented x 3, equal unlabored respirations, skin warm/dry/pink. 13:47 Reassessment: Patient appears in no apparent distress at this time. No changes from la1 previously documented assessment. Patient and/or family updated on plan of care and expected duration. Pain level reassessed. Patient is alert, oriented x 3, equal unlabored respirations, skin warm/dry/pink. Report called to [facility] who stated they will arrange for transport. Pt denies any additional complaints. Vital Signs: 10:56 BP 167 / 79; Pulse 78; Resp 18; Temp 97.2(TE); Pulse Ox 94% on 2 lpm NC; la1 12:04 BP 160 / 70; Pulse 74; Resp 16; Pulse Ox 96% on 2 lpm NC; la1 12:12 BP 155 / 72; Pulse 76; Resp 16; Pulse Ox 98% on R/A; la1 12:51 BP 145 / 74; Pulse 81; Resp 16; Pulse Ox 98% on R/A; la1 ED Course: 10:51 Patient arrived in ED. la1 10:51 [facility]C [facility] kb 10:51 Addy Franco MD is Attending Physician. kb 10:53 Triage completed. la1 10:57 Arm band placed on right wrist. la1 10:58 Isaiah Ying, RN is Primary Nurse. la1 11:16 Call light in reach. Side rails up X 1. la1 11:16 Inserted saline lock: 22 gauge in left antecubital area, using aseptic technique. Blood la1 collected. 12:[address] via stretcher. sj 13:01 CT completed. Patient tolerated procedure well. Patient moved back from CT. sj 13:07 CT Stone Protocol In Process Unspecified. EDMS 14:07 No provider procedures requiring assistance completed. IV discontinued, intact, la1 bleeding controlled, No redness/swelling at site. Pressure dressing applied. Administered Medications: 11:15 Drug: Zofran 4 mg Route: IVP; Site: left antecubital; la1 12:03 Follow up: Response: No adverse reaction la1 12:03 Drug: morphine 2 mg Route: IVP; Site: left antecubital; la1 12:29 Follow up: Response: No adverse reaction; Pain is decreased la1 12:50 Drug: morphine 2 mg Route: IVP; Site: left antecubital; la1 13:42 Follow up: Response: No adverse reaction; Pain is decreased la1 13:42 Drug: Dulcolax Delayed Release Tablet 10 mg Route: PO; la1 13:43 Follow up: Response: No adverse reaction la1 Outcome: 13:30 Discharge ordered by . kb 14:07 Discharged to assisted. la1 14:07 Condition: stable 14:07 Discharge instructions given to patient, Instructed on discharge instructions, follow up and referral plans. medication usage, Demonstrated understanding of instructions, follow-up care, medications, Prescriptions given X 2. 14:07 Patient left the ED. la1 Signatures: Dispatcher [employer] EDAR Fariha Rodriguez FNP-C FNP-Ckb Jones, Susan sj Smirch, Shelby, RN RN Isaiah Ying RN RN la1
--- NOTE | 2018-09-11 13:31 | EDPHYS ---
Physician Documentation [facility] Name: Federico Martinez Age: 58 yrs Sex: Male : 1960 Arrival Date: 09/11/2018 Time: 10:51 Bed 13 Private MD: ED Physician Addy Franco HPI: 09/11 13:28 This 58 yrs old Male presents to ER via EMS with complaints of Nausea/Vomiting.kb 13:28 The patient presents to the emergency department with nausea, vomiting. Onset: The kb symptoms/episode began/occurred yesterday. Possible causes: unknown. The symptoms are aggravated by nothing. The symptoms are alleviated by nothing. Associated signs and symptoms: Pertinent positives: abdominal pain, nausea, vomiting. Severity of symptoms: At their worst the symptoms were moderate in the emergency department the symptoms are unchanged. The patient has not experienced similar symptoms in the past. The patient has not recently seen a physician. Pt reports vomiting since yesterday and upper abd pain. States he saw blood in the emesis last night, half-way staff denies blood in emesis. . Historical: - Allergies: 10:56 No Known Allergies; la1 - PMHx: 10:56 Anemia; Anxiety; Asthma; Atherosclerotic heart disease; Bipolar disorder; CHF; COPD; la1 Dementia; Depression; Diabetes - IDDM; ESRD; GERD; GI Hemorrhage; Hypertension; insomnia; osteomyelitis; Paraplegia; Parkinsons; Post Laminectomy Syndrome; pressure ulcer of left ankle stage II; Pressure ulcer of right ankle, stage II; Sacral Pressure Ulcer Stage III; Schizophrenia; - Immunization history:: Adult Immunizations up to date. - Social history:: Smoking status: Patient/guardian denies using tobacco. - Ebola Screening: : No symptoms or risks identified at this time. ROS: 13:27 Constitutional: Negative for fever, chills, and weight loss, Cardiovascular: Negative kb for chest pain, palpitations, and edema, Respiratory: Negative for shortness of breath, cough, wheezing, and pleuritic chest pain, Back: Negative for injury and pain, : Negative for injury, bleeding, discharge, and swelling, MS/Extremity: Negative for injury and deformity, Skin: Negative for injury, rash, and discoloration, Neuro: Negative for headache, weakness, numbness, tingling, and seizure. 13:27 Abdomen/GI: Positive for abdominal pain, nausea and vomiting, Negative for diarrhea, constipation, abdominal cramps, abdominal distension, anorexia. Exam: 13:28 Constitutional: This is a well developed, well nourished patient who is awake, alert, kb and in no acute distress. Head/Face: Normocephalic, atraumatic. Chest/axilla: Normal chest wall appearance and motion. Nontender with no deformity. No lesions are appreciated. Cardiovascular: Regular rate and rhythm with a normal S1 and S2. No gallops, murmurs, or rubs. Normal PMI, no JVD. No pulse deficits. Respiratory: Lungs have equal breath sounds bilaterally, clear to auscultation and percussion. No rales, rhonchi or wheezes noted. No increased work of breathing, no retractions or nasal flaring. 13:28 Abdomen/GI: Inspection: abdomen appears normal, Bowel sounds: normal, in all quadrants, Palpation: soft, in all quadrants, moderate abdominal tenderness, in the right upper quadrant and left upper quadrant. Vital Signs: 10:56 BP 167 / 79; Pulse 78; Resp 18; Temp 97.2(TE); Pulse Ox 94% on 2 lpm NC; la1 12:04 BP 160 / 70; Pulse 74; Resp 16; Pulse Ox 96% on 2 lpm NC; la1 12:12 BP 155 / 72; Pulse 76; Resp 16; Pulse Ox 98% on R/A; la1 12:51 BP 145 / 74; Pulse 81; Resp 16; Pulse Ox 98% on R/A; la1 MDM: 10:52 Patient medically screened. kb 13:27 Data reviewed: vital signs, nurses notes. Data interpreted: Pulse oximetry: on room air kb is 98 %. Interpretation: normal. Counseling: I had a detailed discussion with the patient and/or guardian regarding: the historical points, exam findings, and any diagnostic results supporting the discharge/admit diagnosis, lab results, radiology results, the need for outpatient follow up, a family practitioner, to return to the emergency department if symptoms worsen or persist or if there are any questions or concerns that arise at home. 09/11 10:52 Order name: Basic Metabolic Panel; Complete Time: 11:53 kb 09/11 10:52 Order name: CBC with Diff; Complete Time: 12:26 kb 09/11 10:52 Order name: Hepatic Function; Complete Time: 11:53 kb 09/11 10:52 Order name: Lipase; Complete Time: 11:53 kb 09/11 11:18 Order name: CBC Smear Scan; Complete Time: 12:26 EDSD 09/11 13:56 Order name: Glucose, Ancillary Testing; Complete Time: 14:00 [facility] 09/11 10:52 Order name: IV Saline Lock; Complete Time: 11:15 kb 09/11 10:52 Order name: Labs collected and sent; Complete Time: 11:15 kb 09/11 11:53 Order name: CT Stone Protocol; Complete Time: 13:21 kb Administered Medications: 11:15 Drug: Zofran 4 mg Route: IVP; Site: left antecubital; la1 12:03 Follow up: Response: No adverse reaction la1 12:03 Drug: morphine 2 mg Route: IVP; Site: left antecubital; la1 12:29 Follow up: Response: No adverse reaction; Pain is decreased la1 12:50 Drug: morphine 2 mg Route: IVP; Site: left antecubital; la1 13:42 Follow up: Response: No adverse reaction; Pain is decreased la1 13:42 Drug: Dulcolax Delayed Release Tablet 10 mg Route: PO; la1 13:43 Follow up: Response: No adverse reaction la1 Disposition: 15:46 Co-signature as Attending Physician, Addy Franco MD I agree with the assessment and alondra plan of care. Disposition: 09/11/18 13:30 Discharged to Home. Impression: Nausea with vomiting, unspecified, Constipation, unspecified. - Condition is Stable. - Discharge Instructions: Constipation, Adult, Cgto-iy-Mnoa, Nausea and Vomiting, Adult, Qpqn-[id number]-Mxmx. - Prescriptions for Bentyl 20 mg Oral Tablet - take 1 tablet by ORAL route every 6 hours As needed; 20 tablet. Zofran 4 mg Oral Tablet - take 1 tablet by ORAL route every 6 hours As needed; 20 tablet. - Medication Reconciliation Form, Thank You Letter, Antibiotic Education, Prescription Opioid Use form. - Follow up: Emergency Department; When: As needed; Reason: Worsening of condition. Follow up: Private Physician; When: 2 - 3 days; Reason: Recheck today's complaints, Continuance of care, Re-evaluation by your physician. Signatures: Dispatcher [employer] [facility] Fariha Rodriguez FNP-C FNP-Ckb Addy Franco MD MD cha Therrien, Shelly, SLEEVE BOTTOM FELLER-C SLEEVE BOTTOM FELLER-Csnw Isaiah Ying, RN RN la1 Corrections: (The following items were deleted from the chart) 14:07 13:30 09/11/2018 13:30 Discharged to Home. Impression: Nausea with vomiting, la1 unspecified; Constipation, unspecified. Condition is Stable. Forms are Medication Reconciliation Form, Thank You Letter, Antibiotic Education, Prescription Opioid Use. Follow up: Emergency Department; When: As needed; Reason: Worsening of condition. Follow up: Private Physician; When: 2 - 3 days; Reason: Recheck today's complaints, Continuance of care, Re-evaluation by your physician. kb
[2018-09-11] MEDS ORDERED: BISACODYL E.C. 5 MG TAB PO ONE (13:47)
[2018-09-11 14:14] VITALS: TEMP 97.2
[2018-09-11 14:16] VITALS: O2SAT 98
[2018-09-11 14:17] VITALS: BP 145/74
== END 2018-09-11 14:07 | disposition home or self-care (01) ==
LOC: ER 10:48
DX: K59.00 Constipation, unspecified (principal); I12.0 Hypertensive chronic kidney disease with stage 5 chronic kidney disease or end stage renal disease; E11.22 Type 2 diabetes mellitus with diabetic chronic kidney disease; N18.6 End stage renal disease
CPT/HCPCS: 36415; 74176; 76377; 80048; 80076; 82962; 83690; 85025; 96374; 96375; 99284; J2405

== ENCOUNTER 2018-09-13 10:58 | Inpatient (IN) | payer MEDICAID ==
--- OUTSIDE RECORDS SUMMARY | 2018-09-13 11:00 | XMS REPORT | Clinical Summary ---
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 Device Shelf Model / Identifier Expiration Serial / Lot Date Infusion Set Bone Infuseii Lg [id number] - [id number] Bone N/A: MEDTRONIC: SPINAL 08/22/2018 [id number] / Implanted: Qty: 1 on 12/12/2016 by Eduardo Ruggiero MD Spine BIOLOGICS / Lumbar [id number] Matrix Floseal Hemo W/O Ndl 10 [id number] - [id number] Cement/Fi N/A: MA: BIOSCI 04/20/2019 [id number] / Implanted: Qty: 2 on 12/12/2016 by Eduardo Ruggiero MD ller/Adhe Spine / sive Lumbar [id number] Bone Putty Stimulan 10 620-010 - [id number] Cement/Fi N/A: BIOCOMPOSITES 08/21/2019 [id number] / Implanted: Qty: 1 on 12/12/2016 by Eduardo Ruggiero MD ller/Adhe Spine / sive Lumbar 10/16-R300/301 Connector Set Screw Joints N/A: MEDTRONIC [id number] / Implanted: Qty: 1 on 12/12/2016 by Eduardo Ruggiero MD Spine / Lumbar Scr Mas 8.5x90 [id number] - [id number] Spine N/A: MEDTRONIC:SPINE: [id number] / Implanted: Qty: 1 on 12/12/2016 by Eduardo Ruggiero MD Spine SOFAMOR DANEK / Lumbar [id number] Ballast Mas 8.5x80 Spine N/A: MEDTRONIC [id number] / Implanted: Qty: 1 on 12/12/2016 by Eduardo Ruggiero MD Spine / Lumbar [id number] Taco 24i121 Spine N/A: MEDTRONIC [id number] / Implanted: Qty: 2 on 12/12/2016 by Eduardo Ruggiero MD Spine / Lumbar [id number] Connector 20mm Spine N/A: MEDTRONIC [id number] / Implanted: Qty: 1 on 12/12/2016 by Eduardo Ruggiero MD Spine / Lumbar Medtronic Sofamor Danek 10cc Sprinal Graft Spine N/A: MEDTRONIC 2017 [id number] / Implanted: Qty: 1 on 12/12/2016 by Eduardo Ruggiero MD Spine [id number] / Lumbar Medtronic Sofamor Daek Orthoblend Small 10cc Spine N/A: MEDTRONIC 2017 [id number] / Implanted: Qty: 1 on 12/12/2016 by Eduardo Ruggiero MD Spine [id number] / Lumbar Medtronic Sofarmor Danek Orthoblend Small 10cc Spine N/A: MEDTRONIC [id number] / Implanted: Qty: 1 on 12/12/2016 by Eduardo Ruggiero MD Spine [id number] / Lumbar Screw Set Ti Ns Brk Off 5.5 - [id number] Spine N/A: MEDTRONIC:SPINAL [id number] / Implanted: Qty: 6 on 12/12/2016 by Eduardo Ruggiero MD Spine BIOLOGICS / Lumbar [id number] Screw Mas Cc 7.5x50 [id number] - [id number] Spine N/A: MEDTRONIC:SPINAL [id number] / Implanted: Qty: 2 on 12/12/2016 by Eduardo Ruggiero MD Spine BIOLOGICS / Lumbar [id number] Screw Mas Cc 7.5 X 45 [id number] - [id number] Spine N/A: MEDTRONIC:SPINAL [id number] / Implanted: Qty: 2 on 12/12/2016 by Eduardo Ruggiero MD Spine BIOLOGICS / Lumbar [id number] Results Not on fileafter 09/12/2017 Insurance Payer Benefit Plan / Subscriber ID Type Phone Address Group MEDICAID - MEDICAID [facility] STAR xxxxxxxxx Medicaid Contracted [facility] CARE PLAN Advance Directives For more information, please contact:[address] [phone] Code Status Date Activated Date Inactivated Comments Full Code 11/29/2016 2:40 AM 12/25/2016 10:37 PM This code status was determined by: Patient Full Code 09/04/2014 12:28 PM 09/04/2014 6:40 PM This code status was determined by: Patient
--- OUTSIDE RECORDS SUMMARY | 2018-09-13 11:02 | XMS REPORT | Continuity of Care Document ---
:1960 Author Organization Interface Problems Problem Status Onset Classification Date Comments Source Date Reported MRSA<sup>1, 2, Active Problem 06/24/2016 Problem [facility] 3, 4</sup> 6 added by [facility] Expert. MARISEL COYLE Active [address] CAD - Coronary Resolved Problem 06/24/2016 [facility] artery disease [facility] Congestive Resolved Problem 06/24/2016 [facility] heart failure [facility] COPD Resolved Problem 06/24/2016 [facility] Diabetes Resolved Problem 06/24/2016 [facility] HTN (<span Resolved Problem 06/24/2016 [facility] ID="[id number] Medical 7">Confirmed</s Center pollack>) MRSA infection Resolved Problem 06/24/2016 [facility] ILLNESS, Active [facility] UNSPECIFIED [facility] Medications Medication Details Route Status Patient Ordering Order Source Instructions Provider Date clopidogrel 75 mg 75 mg=1 tab, Active [facility] oral tablet PO, Daily, 0 016 Medical Refill(s) [place] bisacodyl 10 mg 10 mg=1 Active [facility] rectal supp, [place], 016 Medical suppository Daily, PRN Center Constipation , 0 Refill(s) atorvastatin 40 40 mg=1 tab, Active [facility] mg oral tablet PO, Daily, 0 016 Medical Refill(s) Center amLODIPine 10 mg 10 mg=1 tab, Active [facility] oral tablet PO, Daily, 0 016 Medical Refill(s) [place] acetaminophen 325 650 mg=2 Active [facility] mg oral tablet tab, PO, 016 Medical Q6H, PRN Center Pain 1-3/Temp > 100.4 F, 0 Refill(s) tiotropium 18 Active [facility] microgram=1 016 Medical inhalation, Center INHALATION, RDaily, 0 Refill(s) ziprasidone 20 mg 20 mg=1 cap, Active [facility] oral capsule PO, BID, 0 016 Medical Refill(s) [place] Sucralfate 100 1 gm=10 mL, Active [place] MG/ML Oral PO, QID, 0 016 Medical Suspension Refill(s) [place] senna 8.6 mg oral 8.6 mg=1 Active [facility] tablet tab, PO, 016 Medical Daily, 0 Center Refill(s) polyethylene 17 gm, PO, Active [facility] glycol 3350 oral BID, 0 016 Medical powder for Refill(s) [place] reconstitution pantoprazole 40 40 mg=1 tab, Active [place] mg oral enteric PO, BID, 0 016 Medical coated tablet Refill(s) [place] Oxycodone 5 mg=1 tab, Active [facility] Hydrochloride 5 PO, Q6H, PRN 016 Medical MG Oral Tablet Pain Score Center 4-6, 0 Refill(s) metoprolol 25 mg=1 tab, Active [facility] tartrate 25 mg PO, Q12H, 0 016 Medical oral tablet Refill(s) [place] methocarbamol 500 1,000 mg=2 Active [facility] mg oral tablet tab, PO, 016 Medical Q8Hnow, 0 Center Refill(s) losartan 50 mg 50 mg=1 tab, Active [facility] oral tablet PO, Daily, 0 016 Medical Refill(s) [place] insulin detemir 10 unit, Active [facility] 100 units/mL SUB-Q, Q12H, 016 Medical subcutaneous 0 Refill(s) [place] solution Hydralazine 25 mg=1 tab, Active [facility] Hydrochloride 25 PO, Q6H-02, 016 Medical MG Oral Tablet 0 Refill(s) [place] gabapentin 100 MG 100 mg=1 Active [facility] Oral Capsule cap, PO, 016 Medical Daily, 0 Center Refill(s) doxazosin 4 mg 4 mg=1 tab, Active [facility] oral tablet PO, Daily, 0 016 Medical Refill(s) [place] donepezil 5 mg 10 mg=2 tab, Active [facility] oral tablet PO, Bedtime, 016 Medical 0 Refill(s) [place] Docusate Sodium 100 mg=1 Active [facility] [place] 100 MG Oral cap, PO, 016 Medical Capsule BID, 0 Center Refill(s) Aspirin 81 MG 81 mg=1 tab, Active [facility] Enteric Coated PO, Daily, 0 016 Medical Tablet Refill(s) Center Plavix 75 mg, 1 Inactive [facility] tab, Route: 016 Medical PO, Drug Center form: TAB, Daily, Dosing Weight 104.33, kg, Start date: 06/21/16 9:00:00 CDT, Duration: 30 day, Stop date: 07/20/16 9:00:00 CDTNotes: (Same As: Plavix) Aspirin 81 mg, 1 No Longer [facility] tab, Route: Active 016 Medical PO, Drug Center form: ECTAB, Daily, Dosing Weight 104.33, kg, Start date: 06/20/16 16:17:00 CDT, Duration: 30 day, Stop date: 07/20/16 9:00:00 CDT vancomycin 1 g See Active [facility] intravenous Instructions 016 Medical injection , infused Center over 60 minute, # 1 vial, 0 Refill(s) gabapentin 100 MG 100 mg, 1 Inactive [facility] Oral Capsule cap, Route: 016 Medical PO, Drug Center form: CAP, ONCE, Dosing Weight 104.33, kg, Start date: 06/19/16 17:40:00 CDT, Stop date: 06/19/16 17:40:00 CDTNotes: (Same as: Neurontin) Dilaudid 0.2 mg, 0.1 No Longer [facility] mL, Route: Active 016 Medical IVP, Drug Center form: INJ, Q4H, Dosing Weight 104.33, kg, PRN Pain Score 7-10, Start date: 06/19/16 17:37:00 CDT, Duration: 30 day, Stop date: 07/19/16 17:36:00 CDTNotes: Same as: Dilaudid Oxycodone 10 mg, 2 No Longer [facility] Hydrochloride 5 tab, Route: Active 016 Medical MG Oral Tablet PO, Drug Center form: TAB, Q6H, Dosing Weight 104.33, kg, PRN Pain Score 7-10, Start date: 06/19/16 17:36:00 CDT, Duration: 30 day, Stop date: 07/19/16 17:35:00 CDTNotes: (Same as: Roxicodone) vancomycin + 2 gm, Route: Inactive [facility] sodium chloride IVPB, ONCE, 016 Medical 0.9% 500 ml INJ Start date: Center 500 mL 06/19/16 15:00:00 CDT, Stop date: 06/19/16 15:00:00 CDTNotes: TIME CRITICAL MEDICATION (Same As: Vancocin) Infusion rate 2001 mg: infuse over 2.5 hours MEDICATION WASTE Product Size: 1000 mg Product Wasted: ___ mg hydrALAZINE 25 mg, 1 No Longer [facility] tab, Route: Active 016 Medical PO, Drug Center form: TAB, Q6H-02, Dosing Weight 104.33, kg, Priority: Routine, Start date: 06/17/16 12:00:00 CDT, Duration: 30 day, Stop date: 07/17/16 6:00:00 CDTNotes: (Same as: Apresoline) May interfere w/enteral feedings Take With Food. Protonix 80 mg, 2 No Longer [facility] tab, Route: Active 016 Medical PO, Drug Center form: ECTAB, BID, Dosing Weight 104.33, kg, Start date: 06/17/16 9:00:00 CDT, Duration: 30 day, Stop date: 07/16/16 17:00:00 CDTNotes: Tablet should not be chewed or crushed. (Same as: Protonix) Protonix 40 mg, 1 No Longer [facility] tab, Route: Active 016 Medical PO, Drug Center form: ECTAB, BID, Dosing Weight 104.33, kg, Start date: 06/16/16 17:00:00 CDT, Duration: 30 day, Stop date: 07/16/16 9:00:00 CDT vancomycin + 2 gm, Route: Inactive [facility] sodium chloride IVPB, ONCE, 016 Medical 0.9% 500 ml INJ Start date: Center 500 mL 06/16/16 14:30:00 CDT, Stop date: 06/16/16 14:30:00 CDTNotes: TIME CRITICAL MEDICATION (Same As: Vancocin) Infusion rate 2001 mg: infuse over 2.5 hours MEDICATION WASTE Product Size: 1000 mg Product Wasted: ___ mg gabapentin 100 MG 100 mg, 1 No Longer [facility] Oral Capsule cap, Route: Active 016 Medical PO, Drug Center form: CAP, Daily, Dosing Weight 104.33, kg, Start date: 06/16/16 11:46:00 CDT, Duration: 30 day, Stop date: 07/16/16 9:00:00 CDTNotes: (Same as: Neurontin) Cozaar 50 mg, 1 No Longer [facility] tab, Route: Active 016 Medical PO, Drug Center form: TAB, Daily, Dosing Weight 104.33, kg, Start date: 06/16/16 9:00:00 CDT, Duration: 30 day, Stop date: 07/15/16 9:00:00 CDTNotes: (Same as: Cozaar) Amlodipine 10 mg, 1 No Longer [facility] tab, Route: Active 016 Medical PO, Drug Center form: TAB, Daily, Dosing Weight 104.33, kg, Start date: 06/16/16 9:00:00 CDT, Duration: 30 day, Stop date: 07/15/16 9:00:00 CDTNotes: (Same as: Norvasc) sodium chloride 250 mL, No Longer [facility] 0.9% INJ 250 mL Rate: On [place] [address] Medical call for use Center with blood product administrati on, Dosing Weight 104.33, kg, Route: IV, Total Volume: 250, Start Date: 06/16/16 7:16:00 CDT, Duration: 1 doses or times, Stop date: 06/17/16 7:15:00 CDT, Replace Every: 24 hr Robaxin 1,000 mg, 2 No Longer [facility] tab, Route: Active 016 Medical PO, Drug Center form: TAB, Q8Hnow, Dosing Weight 104.33, kg, Start date: 06/16/16 0:00:00 CDT, Duration: 30 day, Stop date: 07/15/16 16:00:00 CDTNotes: (Same as:Robaxin) hydrALAZINE 50 mg, 1 No Longer [facility] tab, Route: Active 016 Medical PO, Drug Center form: TAB, Q6H-02, Dosing Weight 104.33, kg, Priority: Routine, Start date: 06/16/16 0:00:00 CDT, Duration: 30 day, Stop date: 07/15/16 18:00:00 CDTNotes: (Same as: Apresoline) May interfere w/enteral feedings Take With Food Levemir 10 unit, 0.1 No Longer [facility] mL, Route: Active 016 Medical SUB-Q, Drug Center form: INJ, Q12H, Dosing Weight 104.33, kg, Start date: 06/15/16 21:00:00 CDT, Duration: 30 day, Stop date: 07/15/16 9:00:00 CDTNotes: Same as Levemir Do not hold insulin without contacting prescriber WASTE: F/P - Black; E - Municipal Trash Bin "single patient use only" Vancomycin 1,500 mg, Inactive [facility] Route: IVPB, [facility] Drug form: [place] INJ, ONCE, Dosing Weight 104.33, kg, Start date: 06/15/16 17:17:00 CDT, Stop date: 06/15/16 17:17:00 CDT sodium chloride 250 mL, No Longer [facility] 0.9% 1000 ml INJ Rate: On [facility] 016 [facility] 250 mL call for use Center with blood product administrati on, Dosing Weight 104.33, kg, Route: IV, Total Volume: 250, Start Date: 06/15/16 0:25:00 CDT, Duration: 30 day, Stop date: 07/15/16 0:24:00 CDT, Replace Every: 24 hr Protonix 40 mg, No Longer [facility] Route: IVP, Active 016 Medical Drug form: [place] INJ, BID, Dosing Weight 104.33, kg, Start date: 06/14/16 17:00:00 CDT, Duration: 30 day, Stop date: 07/14/16 9:00:00 CDT Carafate 1 gm, 10 mL, No Longer [facility] Route: PO, Active 016 Medical Drug form: [place] SUSP, QID, Start date: 06/14/16 13:00:00 CDT, Duration: 14 day, Stop date: 06/28/16 9:00:00 CDT Lopressor 25 mg, 1 No Longer [facility] tab, Route: Active 016 Medical PO, Drug Center form: TAB, Q12H, Dosing Weight 104.33, kg, Start date: 06/14/16 9:55:00 CDT, Duration: 30 day, Stop date: 07/14/16 9:00:00 CDTNotes: (Same as: Lopressor) Doxazosin 4 mg, 1 tab, No Longer [facility] Route: PO, Active 016 Medical Drug form: [place] TAB, Daily, Dosing Weight 104.33, kg, Start date: 06/14/16 9:00:00 CDT, Duration: 30 day, Stop date: 07/13/16 9:00:00 CDTNotes: (Same as: Maricarmen) Sodium Chloride 100 mL, No Longer [facility] 0.154 MEQ/ML Rate: [address] [place] [address] Medical Injectable ml/hr, [place] Solution Infuse over: 10 hr, Route: IVPB, Dosing Weight 104.33 kg, Total Volume: 100, Infuse at 8 mg / hr for 72 hours for GI bleeding, Start date: 06/13/16 21:35:00 CDT, Duration: 72 hr, Stop date: 06/16/16 21:34:00 CDT Metoclopramide 5 5 mg, 1 tab, No Longer [facility] MG Oral Tablet Route: PO, Active 016 Medical [Reglan] Drug form: [place] TAB, Before Meals & Bedtime, Dosing Weight 104.33, kg, Start date: 06/13/16 21:00:00 CDT, Duration: 30 day, Stop date: 07/13/16 16:30:00 CDTNotes: (Same as: Reglan) magnesium citrate 300 ml, Inactive [facility] Route: PO, 016 Medical Drug Form: [place] LIQ, Dosing Weight 104.33, kg, ONCE, Start date: 06/13/16 19:55:00 CDT, Stop date: 06/13/16 19:55:00 CDTNotes: (Same as: Citrate of Magnesia) SMOG Enema 300 ml, No Longer [facility] Route: SD, Active Medical Drug Form: Center TONIA, Dosing Weight 104.33, kg, ONCE, Start date: 06/13/16 19:54:00 CDT, Duration: 1 doses or times, Stop date: 06/13/16 19:54:00 CDTNotes: Non formulary item Cardura 2 mg, 1 tab, Inactive [facility] Route: PO, Medical Drug form: [place] TAB, ONCE, Start date: 06/13/16 15:22:00 CDT, Stop date: 06/13/16 15:22:00 CDTNotes: (Same as: Cardura) Vancomycin 1.5 gm, Inactive [facility] Route: IVPB, [address] [place] [address] ONCE, Dosing Center Weight 104.33, kg, Start date: 06/13/16 3:57:00 CDT, Stop date: 06/13/16 3:57:00 CDTNotes: TIME CRITICAL MEDICATION (Same As: Vancocin) Infusion rate 2001 mg: infuse over 2.5 hours MEDICATION WASTE Product Size: 1000 mg Product Wasted: ___ mg Phenergan 12.5 mg, 0.5 No Longer [facility] mL, Route: Active [facility] IVPB, Drug Center form: INJ, Q6H, PRN Nausea, Start date: 06/13/16 3:11:00 CDT, Duration: 30 day, Stop date: 07/13/16 3:10:00 CDTNotes: Do not give IV push. (Same as: Phenergan) Compazine 5 mg, Route: Inactive [facility] IV, Q3H, 016 Medical Dosing Center Weight 104.33, kg, PRN Nausea & Vomiting, Start date: 06/13/16 2:02:00 CDT, Duration: 30 day, Stop date: 07/13/16 2:01:00 CDT Doxazosin 2 mg, 1 tab, No Longer [facility] Route: PO, Active 016 Medical Drug form: Center TAB, Daily, Dosing Weight 104.33, kg, Start date: 06/12/16 10:30:00 CDT, Duration: 30 day, Stop date: 07/12/16 9:00:00 CDTNotes: (Same as: Maricarmen) Dilaudid 0.2 mg, 0.1 No Longer [facility] mL, Route: Active 016 Medical IVP, Drug Center form: INJ, Q4H, Dosing Weight 104.33, kg, PRN Pain Score 7-10, Start date: 06/12/16 10:19:00 CDT, Duration: 30 day, Stop date: 07/12/16 10:18:00 CDTNotes: Same as: Dilaudid hydrALAZINE 50 mg, 1 No Longer [facility] tab, Route: Active 016 Medical PO, Drug Center form: TAB, Q6H-02, Dosing Weight 104.33, kg, Priority: Routine, Start date: 06/10/16 12:30:00 CDT, Duration: 30 day, Stop date: 07/10/16 6:30:00 CDTNotes: (Same as: Apresoline) May interfere w/enteral feedings Take With Food vancomycin 1 gm, Route: Inactive [facility] IVPB, Drug [facility] Medical form: INJ, Center ONCE, Start date: 06/10/16 2:30:00 CDT, Stop date: 06/10/16 2:30:00 CDTNotes: TIME CRITICAL MEDICATION (Same As: Vancocin) Infusion rate 2001 mg: infuse over 2.5 hours MEDICATION WASTE Product Size: 1000 mg Product Wasted: ___ mg hydrALAZINE 25 mg 25 mg, 1 Inactive [facility] oral tablet tab, Route: 016 Medical PO, Drug Center form: TAB, Q6H-02, Dosing Weight 104.33, kg, Priority: Routine, Start date: 06/10/16 0:30:00 CDT, Duration: 30 day, Stop date: 07/09/16 18:30:00 CDTNotes: (Same as: Apresoline) May interfere w/enteral feedings Take With Food. vancomycin + 750 mg, Inactive [facility] sodium chloride Route: IVPB, 016 Medical 0.9% [...] With Food. vancomycin 1 gm, Route: Inactive [facility] IVPB, Drug 016 Medical form: INJ, Center ONCE, Start date: 06/08/16 13:00:00 CDT, Stop date: 06/08/16 13:00:00 CDTNotes: TIME CRITICAL MEDICATION (Same As: Vancocin) Infusion rate 2001 mg: infuse over 2.5 hours MEDICATION WASTE Product Size: 1000 mg Product Wasted: ___ mg Geodon 20 mg, 1 No Longer [facility] cap, Route: Active 016 Medical PO, Drug [...] as:Robaxin) Robaxin 500 mg, 1 No Longer [facility] tab, Route: Active 016 Medical PO, Drug Center form: TAB, Q8H, Dosing Weight 104.33, kg, Priority: NOW, Start date: 06/07/16 22:02:00 CDT, Duration: 30 day, Stop date: 07/07/16 22:00:00 CDTNotes: (Same as:Robaxin) Milk of Magnesia 60 ml, Inactive [facility] Route: PO, 016 Medical Drug Form: [place] SUSP, Dosing Weight 104.33, kg, ONCE, Start date: 06/07/16 19:09:00 CDT, Stop date: 06/07/16 19:09:00 CDTNotes: (Same as: Milk of Magnesia, MOM) heparin 5,000 unit, No Longer [facility] 1 mL, Route: Active 016 Medical SUB-Q, Drug Center form: INJ, Q8H, Dosing Weight 104.33, kg, Start date: 06/07/16 16:00:00 CDT, Duration: 30 day, Stop date: 07/07/16 8:00:00 CDTNotes: porcine heparin molasses 240 mL, Inactive [facility] Route: SD, 016 Medical Drug Form: [place] SYRP, Dosing Weight 104.33, kg, ONCE, Milk of Molasses Enema, Start date: 06/07/16 10:36:00 CDT, Duration: 1 doses or times, Stop date: 06/07/16 10:36:00 CDTNotes: (Same as:Molasses) Oxycodone 5 mg, 1 tab, No Longer [facility] Hydrochloride 5 Route: PO, Active 016 Medical MG Oral Tablet Drug form: [place] TAB, Q6H, Dosing Weight 104.33, kg, PRN Pain Score 4-6, Start date: 06/07/16 10:15:00 CDT, Duration: 30 day, Stop date: 07/07/16 10:14:00 CDTNotes: (Same as: Roxicodone) sennosides, M[facility] 8.6 mg, 1 No Longer [facility] tab, Route: Active 016 Medical PO, Drug Center Form: TAB, Dosing Weight 104.33, kg, Daily, Start date: 06/07/16 9:00:00 CDT, Duration: 30 day, Stop date: 07/06/16 9:00:00 CDTNotes: (Same as: Isaiahot) lurasidone 80 mg, No Longer [facility] Route: PO, Active 016 Medical Drug form: Center TAB, Daily, Dosing Weight 104.33, kg, Start date: 06/07/16 9:00:00 CDT, Duration: 30 day, Stop date: 07/06/16 9:00:00 CDT atorvastatin 40 mg, 1 No Longer [facility] tab, Route: Active 016 Medical PO, Drug Center form: TAB, Daily, Dosing Weight 104.33, kg, Start date: 06/07/16 9:00:00 CDT, Duration: 30 day, Stop date: 07/06/16 9:00:00 CDTNotes: (Same as: Lipitor) Amlodipine 10 mg, 1 No Longer [facility] tab, Route: Active 016 Medical PO, Drug Center form: TAB, Daily, Dosing Weight 104.33, kg, Start date: 06/07/16 9:00:00 CDT, Duration: 30 day, Stop date: 07/06/16 9:00:00 CDTNotes: (Same as: [place]) Levemir 5 unit, 0.05 No Longer [facility] mL, Route: Active 016 Medical SUB-Q, Drug Center form: INJ, Bedtime, Dosing Weight 104.33, kg, Start date: 06/06/16 21:00:00 CDT, Stop date: 07/05/16 21:00:00 CDTNotes: Same as Levemir Do not hold insulin without contacting prescriber WASTE: F/P - Black; E - Municipal Trash Bin "single patient use only" Geodon 40 mg, 1 No Longer [facility] cap, Route: Active 016 Medical PO, Drug Center form: CAP, Bedtime, Dosing Weight 104.33, kg, Start date: 06/06/16 21:00:00 CDT, Duration: 30 day, Stop date: 07/05/16 21:00:00 CDT donepezil 10 mg, 2 No Longer [facility] tab, Route: Active 016 Medical PO, Drug Center form: TAB, Bedtime, Dosing Weight 104.33, kg, Start date: 06/06/16 21:00:00 CDT, Duration: 30 day, Stop date: 07/05/16 21:00:00 CDTNotes: (Same as: Aricept) Furosemide 40 MG 40 mg=1 tab, No Longer [facility] Oral Tablet PO, 0 Active [facility] Medical Refill(s) [place] Humulin 70/30 Pen SUB-Q, 0 No Longer [facility] Refill(s) [address] terazosin 2 mg 2 mg=1 cap, No Longer [facility] oral capsule PO, 0 Active [facility] Medical Refill(s) [place] 3 ML Insulin 6 unit, No Longer [facility] Lispro 100 UNT/ML SUB-Q, # [address] [place] [address] Pen Injector mL, 0 Center [Humalog] Refill(s) vancomycin + 750 mg, Inactive [facility] sodium chloride Route: IVPB, [address] [place] [address] 0.9% 250 mL INJ , Center (for IV set) 250 Start date: mL 06/06/16 18:00:00 CDT, Duration: 30 day, Stop date: 07/06/16 16:00:00 CDTNotes: TIME CRITICAL MEDICATION (Same As: Vancocin) Infusion rate 2001 mg: infuse over 2.5 hours MEDICATION WASTE Product Size: 1000 mg Product Wasted: ___ mg Docusate Sodium 100 mg, 1 Inactive [facility] 100 MG Oral cap, Route: [facility] Medical Capsule [Colace] PO, BID, Center Dosing Weight 104.33, kg, Start date: 06/06/16 17:00:00 CDT, Duration: 30 day, Stop date: 07/06/16 9:00:00 CDT Miralax 17 gm, 1 No Longer [facility] pkt, Route: Active [facility] Medical PO, Drug Center form: PWDR, BID, Dosing Weight 104.33, kg, Start date: 06/06/16 17:00:00 CDT, Duration: 30 day, Stop date: 07/06/16 9:00:00 CDTNotes: Dissolve in 8 oz of water or juice. (Same as: Miralax) Docusate 100 mg, 1 No Longer [facility] cap, Route: Active 016 Medical PO, Drug Center form: CAP, BID, Dosing Weight 104.33, kg, Start date: 06/06/16 17:00:00 CDT, Duration: 30 day, Stop date: 07/06/16 9:00:00 CDTNotes: (Same as: Colace) (Do Not Crush) ranolazine 1,000 mg, 2 No Longer [facility] tab, Route: Active 016 Medical PO, Drug Center form: TAB, BID, Dosing Weight 104.33, kg, Start date: 06/06/16 17:00:00 CDT, Duration: 30 day, Stop date: 07/06/16 9:00:00 CDT Cozaar 100 mg, 2 No Longer [facility] tab, Route: Active 016 Medical PO, Drug Center form: TAB, Daily, Dosing Weight 104.33, kg, Start date: 06/06/16 17:00:00 CDT, Duration: 30 day, Stop date: 07/06/16 9:00:00 CDTNotes: (Same as: Cozaar) vancomycin + 2,250 mg, Inactive [facility] sodium chloride Route: IVPB, [facility] Medical 0.9% 500 mL INJ ONCE, [place] (for IV set) 500 Priority: mL Routine, Start date: 06/06/16 17:00:00 CDT, Stop date: 06/06/16 17:00:00 CDTNotes: TIME CRITICAL MEDICATION (Same As: Vancocin) Infusion rate 2001 mg: infuse over 2.5 hours MEDICATION WASTE Product Size: 1000 mg Product Wasted: ___ mg Acetaminophen 325 1 tab, No Longer [facility] MG / Hydrocodone Route: PO, Active [facility] Medical Bitartrate 5 MG Drug Form: Center Oral Tablet TAB, Dosing [[place] 5/325] Weight 104.33, kg, Q4H, PRN Pain Score 4-6, Start date: 06/06/16 16:23:00 CDT, Duration: 30 day, Stop date: 07/06/16 16:22:00 CDTNotes: (Same as: [place] 325/5) Do not exceed 4gm/day of acetaminophe n. Tylenol 650 mg, 2 No Longer [facility] tab, Route: Active 016 Medical PO, Drug [...] As: Ultram) meropenem 500 mg, No Longer [facility] Route: IVPB, Active 016 Medical Drug form: Center PDR/INJ, [id number], Dosing Weight 104.33, kg, CrCL=Notes: Same as [place] MEDICATION WASTE Product Size: 500 mg Product Wasted: ___ mg Plavix 75 mg, 1 No Longer [facility] tab, Route: Active 016 Medical PO, Drug Center form: TAB, Daily, Dosing Weight 104.33, kg, Start date: 06/06/16 14:23:00 CDT, Duration: 30 day, Stop date: 07/06/16 9:00:00 CDTNotes: (Same As: Plavix) Aspirin 325 mg, 1 No Longer [facility] tab, Route: Active 016 Medical PO, Drug Center form: TAB, Daily, Dosing Weight 104.33, kg, Start date: 06/06/16 14:23:00 CDT, Duration: 30 day, Stop date: 07/06/16 9:00:00 CDTNotes: Take with food. Adenosine 6 mg, Route: Inactive [facility] IV, ONCE, 016 Medical Dosing Center Weight 104.33, kg, Start date: 06/06/16 14:19:00 CDT, Stop date: 06/06/16 14:19:00 CDT Adenosine 6 mg, Route: Inactive [facility] IV, ONCE, 016 Medical Dosing Center Weight 104.33, kg, Start date: 06/06/16 14:17:00 CDT, Stop date: 06/06/16 14:17:00 CDT Morphine 2 mg, 1 mL, No Longer [facility] Route: IV, Active Medical Drug form: Center INJ, Q6H, Dosing Weight 104.33, kg, PRN as needed for chest pain, Start date: 06/06/16 14:00:00 CDT, Duration: 30 day, Stop date: 07/06/16 13:59:00 CDTNotes: (Same as:MORPhine Sulfate) metoprolol 25 mg, Inactive [facility] tartrate Route: PO, Medical Drug form: [place] TAB, ONCE, Dosing Weight 104.33, kg, Start date: 06/06/16 13:59:00 CDT, Stop date: 06/06/16 13:59:00 CDT vancomycin + 1.5 gm, Inactive [facility] sodium chloride Route: [facility], [facility] [facility] 0.9% INJ 250 mL ONCE, Start Center date: 06/06/16 11:12:00 CDT, Stop date: 06/06/16 11:12:00 CDTNotes: TIME CRITICAL MEDICATION (Same As: Vancocin) Infusion rate 2001 mg: infuse over 2.5 hours MEDICATION WASTE Product Size: 1000 mg Product Wasted: ___ mg Ceftazidime 1 gm, Route: Inactive [facility] IVPB, Drug 016 Medical form: Center PDR/INJ, [id number], Dosing Weight 104.33, kg, Start date: 06/06/16 11:00:00 CDT, Duration: 30 day, Stop date: 07/05/16 11:00:00 CDTNotes: (Same as: [place]) MEDICATION WASTE Product Size: 1000 mg Product Wasted: 0 mg venlafaxine 300 mg, 2 No Longer [facility] cap, Route: Active 016 Medical PO, Drug Center form: ERCAP, Daily, Dosing Weight 104.33, kg, Start date: 06/06/16 11:00:00 CDT, Duration: 30 day, Stop date: 07/06/16 9:00:00 CDT tiotropium 18 No Longer [facility] microgram, [address] [place] [address] inhalation, Center Route: INHALATION, Drug form: CAP, RDaily, Dosing Weight 104.33, kg, Start date: 06/06/16 11:00:00 CDT, Duration: 30 day, Stop date: 07/06/16 8:00:00 CDTNotes: (Same As: Spiriva) Lopressor 50 mg, 1 No Longer [facility] tab, Route: Active 016 Medical PO, Drug Center form: TAB, Q12H, Dosing Weight 104.33, kg, Start date: 06/06/16 11:00:00 CDT, Duration: 30 day, Stop date: 07/06/16 9:00:00 CDTNotes: (Same as: Lopressor) Losartan 100 mg, 1 Inactive [facility] tab, Route: 016 Medical PO, Drug Center form: TAB, Daily, Dosing Weight 104.33, kg, Start date: 06/06/16 11:00:00 CDT, Duration: 30 day, Stop date: 07/06/16 9:00:00 CDTNotes: (Same as: Cozaar) Dulcolax Laxative 10 mg, 1 No Longer [facility] supp, Route: Active 016 [facility] [place], Drug Center form: SUPP, Daily, Dosing Weight 104.33, kg, PRN Constipation , Start date: 06/06/16 10:50:00 CDT, Duration: 30 day, Stop date: 07/06/16 10:49:00 CDTNotes: (Same As: Dulcolax, [place]-Lax) Insulin, Aspart, 10 unit, 0.1 No Longer [facility] Human mL, Route: Active 016 Medical SUB-Q, [...] __Date Glucagon 1 mg, Route: No Longer [facility] IM, Drug Active 016 Medical form: Center PDR/INJ, PRN, Dosing Weight 104.33, kg, PRN Blood Glucose Results, Start date: 06/06/16 9:41:00 CDT, Duration: 30 day, Stop date: 07/06/16 9:40:00 CDT Dextrose 50% 25 gm, 50 No Longer [facility] Syringe mL, Route: Active 016 Medical IVP, Drug Center Form: INJ, Dosing Weight 104.33, kg, PRN, PRN Blood Glucose Results, Start date: 06/06/16 9:41:00 CDT, Duration: 30 day, Stop date: 07/06/16 9:40:00 CDT Ondansetron 4 mg, 2 mL, No Longer [facility] Route: IVP, Active 016 Medical Drug form: Center INJ, Q6H, Dosing Weight 104.33, kg, PRN Nausea & Vomiting, Start date: 06/06/16 9:39:00 CDT, Duration: 30 day, Stop date: 07/06/16 9:38:00 CDTNotes: (Same as: [place]) MEDICATION WASTE Product Size: 4 mg Product Wasted: _0__ mg venlafaxine 300 mg, PO, No Longer [facility] Daily, 0 Active 016 Medical Refill(s) Center donepezil 10 mg, PO, No Longer [facility] Bedtime, 0 Active 016 Medical Refill(s) Center clopidogrel 75 MG 75 mg=1 tab, No Longer [facility] Oral Tablet PO, Daily, 0 Active 016 Medical [Plavix] Refill(s) Center Levemir 22 unit, No Longer [facility] SUB-Q, 0 Active 016 Medical Refill(s) Center cholecalciferol 1,000 No Longer [facility] IntlUnit, 0 Active 016 Medical Refill(s) [place] Aspirin 325 mg, 0 No Longer [facility] Refill(s) Active 016 [facility] Center atorvastatin 40 mg, PO, No Longer [facility] Daily, 0 Active 016 Medical Refill(s) Center Amlodipine 10 mg, PO, No Longer [facility] Daily, 0 Active 016 Medical Refill(s) [place] tiotropium 18 No Longer [facility] microgram, Active 016 Medical INHALATION, Center Daily, 0 Refill(s) Prenavite FC oral 1 tab, PO, No Longer [facility] tablet Daily, 0 Active 016 Medical Refill(s) [place] losartan 100 mg 100 mg=1 No Longer [facility] oral tablet tab, PO, Active 016 Medical Daily, 0 Center Refill(s) Lorazepam 2 mg, PO, No Longer [facility] Q---Sa, Active 016 Medical 0 Refill(s) [place] Insulin, Aspart, 8 unit, No Longer [facility] Human SUB-Q, Active 016 Medical TID-Before [place] Meals, 0 Refill(s) Nitroglycerin 0.4 mg, SL, No Longer [facility] Q5Min, PRN Active 016 Medical as needed Center for chest pain, 0 Refill(s) lurasidone 80 mg 80 mg=1 tab, No Longer [facility] oral tablet PO, Daily, 0 Active 016 Medical Refill(s) [place] metoprolol 50 mg=1 tab, No Longer [facility] tartrate 50 mg PO, BID, # Active 016 Medical oral tablet 180 tab, 0 Center Refill(s) 12 HR ranolazine 1,000 mg=1 No Longer [facility] 1000 MG Extended tab, PO, Active 016 Medical Release Tablet BID, # 60 Center tab, 0 Refill(s) Pramipexole 0.25 mg=1 No Longer [facility] dihydrochloride tab, PO, Active 016 Medical 0.25 MG Oral Daily, 0 [place] Tablet [Mirapex] Refill(s) Geodon 40 mg, PO, No Longer [facility] Daily, 0 Active 016 Medical Refill(s) [place] Sodium Chloride 1,000 mL, Inactive [facility] 0.154 MEQ/ML 1,000 ml/hr, 016 Medical Injectable Infuse Over: [place] Solution 1 hr, Route: IV, ONCE, Priority: STAT, Dosing Weight 104.33 kg, Start date: 06/06/16 5:34:00 CDT, Duration: 1 doses or times, Stop date: 06/06/16 5:34:00 CDT Albuterol 0.833 9 mL, Route: Inactive [facility] MG/ML / NEB, Drug 016 Medical Ipratropium Form: SOLN, [place] 0.167 Dosing MG/ML Inhalant Weight Solution [DuoNeb] [...] Phosphorus 2.0 mg/dL 2.5 - 4.5 06/21 [facility] CHEM PANEL eGFR 38 06/21 Result Comment: The eGFR is calculated using the CKD-EPI formula. In most young, healthy individuals the eGFR will be >90 mL/ min/1.73m2. The eGFR declines with age. An eGFR of 60-89 may be normal in [facility] mL/min/1. /2015 some populations, particularly the elderly, for whom the CKD-EPI formula has not been extensively validated. Use of the eGFR is not recommended in the following populations: [address] Individuals with unstable creatinine concentrations, including [...] PANEL AGAP 11.7 meq/L 10.0 - 06/21 [facility] 20.0 [facility] CHEM PANEL CO2 26 meq/L 24 - 32 06/21 [facility] CHEM PANEL Calcium Lvl 7.8 mg/dL 8.5 - 10.5 06/21 [facility] CHEM PANEL Chloride Lvl 99 meq/L 95 - 109 06/21 [facility]2015 [facility] CHEM PANEL Creatinine 1.89 mg/dL 0.50 - 06/21 [facility] Lvl 1.40 [facility] CHEM PANEL Potassium Lvl 3.7 meq/L 3.5 - 5.1 06/21 2015 [facility] CHEM PANEL Sodium Lvl 133 meq/L 135 - 145 06/21 2015 [facility] CHEM PANEL Glucose Lvl 125 mg/dL 70 - 99 06/21 2015 [facility] CHEM PANEL BUN 23 mg/dL 06/[address] CHEM PANEL Magnesium Lvl 2.0 mg/dL 1.8 - 2.4 06/21 [facility]2015 [facility] TOXICOLOGY Vanco Lvl 21.1 ug/ml 06/[address] TOXICOLOGY Vanco Lvl 31.4 ug/ml 06/[address] CHEM PANEL BUN 35 mg/dL 06/[address] CHEM PANEL Creatinine 3.30 mg/dL 0.50 - 06/19 [facility] Lvl 1.40 [facility] CHEM PANEL Chloride Lvl 95 meq/L 95 - 109 06/[address] CHEM PANEL Potassium Lvl 4.4 meq/L 3.5 - 5.1 06/[address] CHEM PANEL Glucose Lvl 137 mg/dL 70 - 99 06/[address] CHEM PANEL Sodium Lvl 128 meq/L 135 - 145 06/19 [facility]2015 [facility] CHEM PANEL eGFR 20 06/19 Result Comment: The eGFR is calculated using the CKD-EPI formula. In most young, healthy individuals the eGFR will be >90 mL/ min/1.73m2. The eGFR declines with age. An eGFR of 60-89 may be normal in [facility] mL/min/1. some populations, particularly the elderly, for whom the CKD-EPI formula has not been extensively validated. Use of the eGFR is not recommended in the following populations: [address] Individuals with unstable creatinine concentrations, including [...] CO2 21 meq/L 24 - 32 06/19 [facility] CHEM PANEL Calcium Lvl 8.2 mg/dL 8.5 - 10.5 06/19 [facility] CHEM PANEL AGAP 16.4 meq/L 10.0 - 06/19 20.0 [facility] HEMATOLOGY MCH 29.1 pg 27.0 - 06/19 [place] 31.0 [facility] HEMATOLOGY MCV 86.5 fL 80.0 - 06/19 [place] 94.0 [facility] HEMATOLOGY Hct 22.1 % 42.0 - 06/19 54.0 [facility] HEMATOLOGY Hgb 7.4 g/dL 14.0 - 06/19 18.0 [facility] HEMATOLOGY RBC 2.56 M/CMM 4.70 - 06/19 [place] 6.10 [facility] HEMATOLOGY WBC 22.6 K/CMM 3.7 - 10.4 06/19 [facility] HEMATOLOGY RDW 14.5 % 11.5 - 06/19 14. [facility] HEMATOLOGY MCHC 33.7 g/dL 32.0 - 06/19 [place] 36.0 [facility] HEMATOLOGY Platelet 387 K/CMM 133 - 450 06/19 [facility] HEMATOLOGY MPV 8.3 fL 7.4 - 10.4 06/19 [facility] HEMATOLOGY Lymphocytes 7.8 % 20.0 - 06/19 [place] 40.0 [facility] HEMATOLOGY Segs 84.0 % 45.0 - 06/19 [place] 75.0 [facility] HEMATOLOGY Basophils # 0.1 K/CMM 0.0 - 0.2 06/19 [facility] HEMATOLOGY Monocytes # 1.5 K/CMM 0.0 - 0.8 06/19 [facility] HEMATOLOGY Lymphocytes # 1.8 K/CMM 1.0 - 5.5 06/19 [facility] HEMATOLOGY Eosinophils # 0.2 K/CMM 0.0 - 0.5 06/19 [facility] HEMATOLOGY Monocytes 6.8 % 2.0 - 12.0 06/19 [facility] HEMATOLOGY Segs-Bands # 18.9 K/CMM 1.5 - 8.1 06/19 [facility] HEMATOLOGY Basophils 0.4 % 0.0 - 1.0 06/19 [facility] HEMATOLOGY Eosinophils 1.0 % 0.0 - 4.0 06/19 [facility] TOXICOLOGY [place]anco Lvl 16.5 ug/ml 06/19 [facility] ELECTROLYTE AGAP 11.8 meq/L 10.0 - 06/17 [facility] 20.0 [facility] ELECTROLYTE eGFR 33 06/17 Result Comment: The eGFR is calculated using the CKD-EPI formula. In most young, healthy individuals the eGFR will be >90 mL/ min/1.73m2. The eGFR declines with age. An eGFR of 60-89 may be normal in [facility] mL/min/1. some populations, particularly the elderly, for whom the CKD-EPI formula has not been extensively validated. Use of the eGFR is not recommended in the following populations: [address] Individuals with unstable creatinine concentrations, including [...] ELECTROLYTE BUN 30 mg/dL 7 - 06/17 [facility] ELECTROLYTE Glucose Lvl 85 mg/dL 70 - 99 06/17 [facility] ELECTROLYTE Chloride Lvl 100 meq/L 95 - 109 06/17 [facility] ELECTROLYTE Potassium Lvl 3.8 meq/L 3.5 - 5.1 06/17 [facility] ELECTROLYTE CO2 28 meq/L 24 - 32 06/17 [facility]2015 [facility] ELECTROLYTE Creatinine 2.17 mg/dL 0.50 - 06/17 [facility] Lvl 1.40 [facility] ELECTROLYTE Sodium Lvl 136 meq/L 135 - 145 06/17 [facility] ELECTROLYTE Calcium Lvl 8.3 mg/dL 8.5 - 10.5 06/17 [facility] S [facility] HEMATOLOGY RBC 2.61 M/CMM 4.70 - 06/17 6.10 [facility] HEMATOLOGY MCHC 33.7 g/dL 32.0 - 06/17 36.0 [facility] HEMATOLOGY RDW 14.4 % 11.5 - 06/17 14. [facility] HEMATOLOGY Platelet 331 K/CMM 133 - 450 06/17 [facility] HEMATOLOGY MPV 8.7 fL 7.4 - 10.4 06/17 [facility] HEMATOLOGY Hgb 7.5 g/dL 14.0 - 06/17 18.0 [facility] HEMATOLOGY Hct 22.2 % 42.0 - 06/17 54.0 [facility] HEMATOLOGY MCV 85.3 fL 80.0 - 06/17 94.0 [facility] HEMATOLOGY MCH 28.8 pg 27.0 - 06/17 31.0 [facility] HEMATOLOGY WBC 19.1 K/CMM 3.7 - 10.4 06/17 [facility] HEMATOLOGY Eosinophils # 0.1 K/CMM 0.0 - 0.5 06/17 [facility] HEMATOLOGY Monocytes # 1.6 K/CMM 0.0 - 0.8 06/17 [facility] HEMATOLOGY Lymphocytes # 1.6 K/CMM 1.0 - 5.5 06/17 [facility] HEMATOLOGY Segs-Bands # 15.8 K/CMM 1.5 - 8.1 06/17 [facility] HEMATOLOGY Basophils 0.4 % 0.0 - 1.0 06/17 [facility] HEMATOLOGY Basophils # 0.1 K/CMM 0.0 - 0.2 06/17 [facility] HEMATOLOGY Segs 82.3 % 45.0 - 06/17 75.0 [facility] HEMATOLOGY Eosinophils 0.5 % 0.0 - 4.0 06/17 [facility] HEMATOLOGY Monocytes 8.6 % 2.0 - 12.0 06/17 [facility] HEMATOLOGY Lymphocytes 8.2 % 20.0 - 06/17 40.0 [facility] BLOOD BANK RBC product Product available 06/16 [facility] (06/16/16 7:16 AM) [place] HEMATOLOGY Polychrom slight 06/16 [facility] HEMATOLOGY Plt Morph Normal 06/16 Medical (06/16/16 4:18 AM) [place] HEMATOLOGY Atypical 0.0 % <=0.0 % 06/16 [facility] Lymph [facility] HEMATOLOGY Monocytes 5.0 % 2.0 - 12.0 06/16 [facility] HEMATOLOGY Metamyelocyte 1.0 % 0.0 - 1.0 06/16 [facility] s [facility] HEMATOLOGY Lymphocytes 5.0 % 20.0 - 06/16 [place] 40.0 [facility] HEMATOLOGY Monocytes # 1.5 K/CMM 0.0 - 0.8 06/16 [facility] HEMATOLOGY Segs 87.0 % 45.0 - 06/16 [place] 75.0 [facility] HEMATOLOGY Bands 2.0 % 0.0 - 11.0 06/16 [facility] HEMATOLOGY Lymphocytes # 1.5 K/CMM 1.0 - 5.5 06/16 [facility] HEMATOLOGY Segs-Bands # 26.3 K/CMM 1.5 - 8.1 06/16 [facility] HEMATOLOGY Platelet 338 K/CMM 133 - 450 06/16 [facility] HEMATOLOGY MCHC 32.6 g/dL 32.0 - 06/16 [place] 36.0 [facility] HEMATOLOGY MPV 8.4 fL 7.4 - 10.4 06/16 [facility] HEMATOLOGY RDW 14.4 % 11.5 - 06/16 14.5 [facility] HEMATOLOGY MCV 84.7 fL 80.0 - 06/16 94.0 [facility] HEMATOLOGY Hct 20.7 % 42.0 - 06/16 [place] 54.0 2016 [facility] HEMATOLOGY Hgb 6.8 g/dL 14.0 - 06/16 Result [facility] 18. Comment: Medical Critical Center Result(s) called to tristan dubon at 06/16/2016 05:01_ by_aa. Read back [place]. HEMATOLOGY RBC 2.44 M/CMM 4.70 - 06/16 [place] 6.10 [facility] HEMATOLOGY MCH 27.6 pg 27.0 - 06/16 [place] 31.0 [facility] HEMATOLOGY WBC 29.5 K/CMM 3.7 - 10.4 06/16 [facility] /2015 [facility] CVC insert CVC insert STUDY: VIR CV Catheter Placement Tunneled 06/15 - [facility] tunnel tunnel w/-w/o /2015 - Medical w/-w/o port/pump age This report was dictated by a Instructional Assistant /Fellow. I have personally reviewed the images as Center port/pump 5+ yrs VR well as the Resident's interpretation and agree with the findings. age 5+ yrs DATE: 06/15/2016 12:36 PM CDT Read by: Aneesh Nails MD Resident: Aneesh aNils MD VR Dictated Date/time: 06/15/16 16:07 Electronically Signed by: Mychal Bravo MD 06/15/16 16:20 FINAL REPORT INDICATION(S): venous access. 55 year old who needs access for hemodialysis. PROCEDURE(S) PERFORMED: 1. Successful ultrasound and fluoroscopic guided placement of a16 [place] 23 cm to tip hemodialysis catheter into the right internal jugular vein. 2. Moderate sedation PICKER MACHINE OPERATOR: Vincent Gamino STACK MATCHER(S): Dr. Bravo CONSENT: Written consent obtained after [...] jugular vein. 2. Successful placement of 16 [place] 23 cm right internal jugular vein hemodialysis catheter. COMPLICATIONS: None ESTIMATED BLOOD LOSS: None FLUOROSCOPIC TIME: 0.3 minutes RADIATION DOSE: 6 mGy CONTRAST VOLUME: None IMPRESSION: Successful ultrasound and fluoroscopic guided placement of a right internal jugular vein 16 [place] tunneled 23 cm cuff to tip hemodialysis catheter. The line is ready for immediate use. PLAN/FOLLOW UP: None Dr. Bravo, IR Attending, was present for the procedure. BLOOD BANK RBC product Product available 06/15 [facility] (06/15/16 12:25 AM) Center IMMUNOLOGY H pylori IgG 0.7 06/15 [facility] unit/mL [facility] CHEM PANEL Lactic Acid 1.7 mMol/L 0.5 - 2.2 06/14 [facility] CHEM PANEL Procalcitonin 1.04 ng/mL 0.00 - 06/14 [facility] 0. [facility] CHEM PANEL Phosphorus 4.6 mg/dL 2.5 - 4.5 06/14 [facility] CHEM PANEL Procalcitonin 1.04 ng/mL 0.00 - 06/14 [facility] 0. [facility] HEMATOLOGY Metamyelocyte 2.0 % 0.0 - 1.0 06/14 [facility] s [facility] HEMATOLOGY Bands 1.0 % 0.0 - 11.0 06/14 [facility] HEMATOLOGY Tot Cell Ct 200 06/14 [facility] HEMATOLOGY Plt Morph Normal 06/14 [facility] (06/14/16 2:21 AM) [place] HEMATOLOGY RBC Morph Normal 06/14 [facility] (06/14/16 2:21 AM) [place] HEMATOLOGY Atypical 0.0 % <=0.0 % 06/14 [facility] Lymphs [facility] BLOOD BANK ABO/Rh O POS 06/14 [place] RESULTS [facility] BLOOD BANK Antibody Scrn Negative 06/14 [place] RESULTS Medical (06/13/16 10:25 PM) Center BODY FLUIDS Sebastián Occult Positive Negative 06/14 [facility] Bld [facility] *ABN* Center (06/13/16 10:22 PM) HEMATOLOGY Basophils 0.1 % 0.0 - 1.0 06/14 /2015 [facility] HEMATOLOGY PTT 40.7 s 22.9 - 06/14 [place] 35.8 [facility] HEMATOLOGY INR 1.13 0.85 - 06/14 [place] 1.17 /2015 [facility] HEMATOLOGY PT 14.8 s 12.0 - 06/14 [facility] 14.7 [facility] Abdomen AP Abdomen AP DX EXAM: XR ABDOMEN 1 VIEW 06/13 - [facility] DX - [facility] This report was dictated by a Instructional Assistant/Fellow. I have personally reviewed the images as [...] Lvl 2.0 g/dL 3.5 - 5.0 06/13 [facility] CHEM PANEL Total Protein 6.4 g/dL 6.4 - 8.4 06/13 [facility] CHEM PANEL A/G Ratio 0.5 0.7 - 1.6 06/13 [facility] CHEM PANEL Globulin 4.4 g/dL 2.7 - 4.2 06/13 [facility] CHEM PANEL Alk Phos 319 unit/L 39 - 136 06/13 [facility] CHEM PANEL B/C Ratio 16 6 - 25 06/[address] CHEM PANEL AST 18 unit/L 0 - 37 06/13 [facility]2015 [facility] CHEM PANEL ALT 26 unit/L 0 - 65 06/[address] CHEM PANEL Bili Total 0.4 mg/dL 0.2 - 1.3 06/[address] HEMATOLOGY Eosinophils 0.4 % 0.0 - 4.0 06/13 [facility]2015 [facility] HEMATOLOGY Plt Morph Normal 06/13 [facility] (06/13/16 12:38 AM) [place] HEMATOLOGY Eosinophils # 0.1 K/CMM 0.0 - 0.5 06/[address] CVC remove CVC remove STUDY: Tunneled hemodialysis catheter removal 06/12 [facility] tunnel tunnel w/-w/o /2015 - [facility] w/-w/o port/pump VR Center port/pump VR DATE: [...] compressed for short while and hemostasis obtained. PICKER MACHINE OPERATOR: [place] STACK MATCHER(S): CONSENT: Written consent obtained after discussing the [...] B/C Ratio 18 6 - 25 06/[address] CHEM PANEL Globulin 4.9 g/dL 2.7 - 4.2 06/[address] CHEM PANEL A/G Ratio 0.4 0.7 - 1.6 06/12 [facility] /[address] [place] [address] CHEM PANEL Bili Total 0.4 mg/dL 0.2 - 1.3 06/12 2015 [facility] CHEM PANEL AST 18 unit/L 0 - 37 06/12 [facility]2015 [facility] CHEM PANEL Alk Phos 401 unit/L 39 - 136 06/[address] CHEM PANEL Total Protein 7.0 g/dL 6.4 - 8.4 06/12 [facility]2015 [facility] CHEM PANEL ALT 24 unit/L 0 - 65 06/12 [facility]2015 [facility] CHEM PANEL Albumin Lvl 2.1 g/dL 3.5 - 5.0 06/12 [facility]2015 [facility] CHEM PANEL Lactic Acid 0.8 mMol/L 0.5 - 2.2 06/10 [facility] CHEM PANEL Globulin 4.6 g/dL 2.7 - 4.2 06/[address] CHEM PANEL B/C Ratio 12 6 - 25 06/[address] CHEM PANEL A/G Ratio 0.4 0.7 - 1.6 06/[address] CHEM PANEL Total Protein 6.5 g/dL 6.4 - 8.4 06/[address] CHEM PANEL Albumin Lvl 1.9 g/dL 3.5 - 5.0 06/[address] CHEM PANEL ALT 22 unit/L 0 - 65 06/[address] CHEM PANEL AST 22 unit/L 0 - 37 06/[address] CHEM PANEL Alk Phos 352 unit/L 39 - 136 06/[address] CHEM PANEL Bili Total 0.4 mg/dL 0.2 - 1.3 06/[address] CHEM PANEL Lactic Acid 0.9 mMol/L 0.5 - 2.2 06/08 [facility] CARDIAC Troponin-I 0.07 ng/mL 0.00 - 06/07 [facility] ENZYMES 0. [facility] CHEM PANEL Phosphorus 3.7 mg/dL 2.5 - 4.5 06/[address] CHEM PANEL Magnesium Lvl 2.1 mg/dL 1.8 - 2.4 06/07 [facility]2015 [facility] HEMATOLOGY INR 1.32 0.85 - 06/07 [facility] [place] 1. [facility] HEMATOLOGY PTT 49.3 s 22.9 - 06/07 [facility] 35.8 /2015 [facility] HEMATOLOGY PT 16.7 s 12.0 - 06/07 [facility] 14.7 [facility] BACTERIAL - MRSA by PCR Positive 1 06/07 Result [facility] SEROLOGY Comment: Medical *ABN* "Significant Center Findings (06/07/16 1:46 AM) called to Anca Ward_at 06/07/2016 13:25 by bf. Read Back OK." URINE AND UA Sq Epi RARE 06/07 [facility] URINE AND UA WBC 8 /HPF 0 - 5 06/07 [facility] URINE AND UA RBC 3 /HPF 0 - 2 06/07 [facility] URINE AND UA Bacteria Occasional None Seen 06/07 [facility] /HPF /HPF /2015 [facility] URINE AND UA Hyal Cast 3 /LPF 0 - 2 06/07 [facility] [facility] URINE AND UA Mucus Few /LPF None Seen 06/07 [facility] STOOL /LPF /2015 [facility] URINE AND UA 0.2 EU/dL 0.1 - 1.0 06/07 [facility] Urobilinogen /2015 [facility] URINE AND UA Nitrite Negative Negative 06/07 [facility] (06/06/16 11:32 PM) [place] URINE AND UA Leuk Est Negative Negative 06/07 [facility] (06/06/16 11:32 PM) [place] URINE AND UA Blood Trace Negative 06/07 [facility] Medical *ABN* [place] (06/06/16 11:32 PM) URINE AND UA Bili Negative Negative 06/07 [facility] Medical *NA* [place] (06/06/16 11:32 PM) URINE AND UA pH 7.0 5.0 - 8.0 06/07 [facility] URINE AND UA Protein 100 mg/dL Negative 06/07 [facility] mg/dL [facility] URINE AND UA Turbidity Clear Clear 06/07 [facility] (06/06/16 11:32 PM) [place] URINE AND UA Spec Grav 1.020 <=1.030 06/07 [facility] URINE AND UA Ketones Negative Negative 06/07 [facility] Medical *NA* Center (06/06/16 11:32 PM) URINE AND UA Glucose Negative Negative 06/07 [facility] STOOL Medical (06/06/16 11:32 PM) [place] URINE AND UA Color Yellow Yellow 06/07 [facility] STOOL [facility] *NA* [place] (06/06/16 11:32 PM) CARDIAC Troponin-I 0.12 ng/mL 0.00 - 06/07 [facility] ENZYMES 0.40 [facility] IMMUNOLOGY Hep Bs Ab 20.5 <=7.4 06/06 [facility] mIU/mL mIU/mL [facility] IMMUNOLOGY Hep B Core Ab Negative Negative 06/06 [facility] *NA* [place] (06/06/16 3:44 PM) IMMUNOLOGY Hep C Ab Negative 06/06 [facility]* [place] (06/06/16 3:44 PM) IMMUNOLOGY Hep Bs Ag Negative Negative [facility] [place] (06/06/16 3:44 PM) CARDIAC Troponin-I null 0.00 - 06/06 [facility] ENZYMES 0.40 [facility] CHEM PANEL Magnesium Lvl 1.7 mg/dL 1.8 - 2.4 06/06 [facility] HEMATOLOGY Bands 0.0 % 0.0 - 11.0 06/06 [facility] HEMATOLOGY Atypical 0.0 % <=0.0 % 06/06 [facility] Lymphs [facility] PARATHYROID Ca Ion WB 1.18 1.05 - 06/06 [facility] PROFILE mMol/L 1. [facility] PARATHYROID Ca Norm WB 1.15 1.05 - 06/06 [facility] PROFILE mMol/L 1. [facility] CARDIAC Troponin-T 0.050 0.000 - 06/06 [facility] ENZYMES ng/mL 0.100 [facility] CARDIAC Troponin-T 0.036 0.000 - 06/06 [facility] ENZYMES ng/mL 0.100 [facility] CARDIAC Total CK 43 unit/L 12 - 191 06/06 [facility] HEMATOLOGY Sed Rate >100 mm/hr 0 - 15 06/06 [facility]2015 [facility] HEMATOLOGY Estimated % 1.2 % 0.0 - 7.5 06/06 [facility] Lysis [facility] HEMATOLOGY ACT (TEG) 128 s 86 - 118 06/06 [facility] Rapid [facility] HEMATOLOGY Angle Rapid 80 degrees 64 - 80 06/06 [facility] HEMATOLOGY Max Amplitude 78 mm 52 - 71 06/06 [facility] HEMATOLOGY G-value Rapid 17.6 K 5.0 - 11.6 06/06 [facility] d/sc /2015 [facility] HEMATOLOGY [place] 0.7 min 06/06 [facility] HEMATOLOGY R-time Rapid 0.8 min 0.4 - 0.7 06/06 [facility] HEMATOLOGY K-time Rapid 0.8 min 0.6 - 2.3 06/06 /2015 [facility] HEMATOLOGY PT 14.6 s 12.0 - 06/06 [facility] 14.7 [facility] HEMATOLOGY PTT 49.0 s 22.9 - 06/06 [facility] 35.8 [facility] HEMATOLOGY INR 1.11 0.85 - 06/06 [facility] 1. [facility] HEMATOLOGY RBC Morph Normal 06/06 [facility] (06/06/16 3:15 AM) [place] HEMATOLOGY Tot Cell Ct 100 06/06 [facility] HEMATOLOGY Basophils # 0.1 K/CMM 0.0 - 0.2 06/06 [facility] IMMUNOLOGY C-REACTIVE 251.0 mg/L <=2.9 mg/L 06/06 [facility] PROTEIN [facility] BLOOD BANK Antibody Scrn Negative 06/06 [facility] RESULTS [facility] (06/06/16 3:00 AM) [place] BLOOD BANK ABO/Rh O POS 06/06 [facility] RESULTS [facility] Spine Spine lumbar EXAM: MRI LUMBAR SPINE WITHOUT CONTRAST 06/06 - [facility] lumbar wo wo /2015 - [facility] contrast MRI Center MRI DATE: 06/06/2016 04:27 [...] CT ABDOMEN AND PELVIS WITHOUT CONTRAST - [facility] [place] wo IV s wo IV /2015 - [...] 1view EXAM: Chest 1view DX 06/06 - [facility] DX DX /2016 [facility] DATE: 06/06/2016 0318 hours CDT Read [...] Date Comments Source Heart Rate 104 06/21/2016 [facility] Respitory Rate 20 06/21/2016 [facility] Systolic (mm Hg) 160 06/21/2016 [facility] Diastolic (mm Hg) 70 06/21/2016 [facility] Temperature Oral (F) 97.7 F 06/21/2016 [facility] Respitory Rate 16 06/21/2016 [facility] Temperature Oral (F) 96.5 F 06/21/2016 [facility] Systolic (mm Hg) 143 06/21/2016 [facility] Diastolic (mm Hg) 71 06/21/2016 [facility] Respitory Rate 16 06/21/2016 [facility] Heart Rate 94 06/21/2016 [facility] Temperature Oral (F) 96.9 F 06/21/2016 [facility] Heart Rate 87 06/21/2016 [facility] Systolic (mm Hg) 145 06/21/2016 [facility] Diastolic (mm Hg) 69 06/21/2016 [facility] Height 170.18 cm 06/06/2016 [facility] Weight 104.33 06/06/2016 [facility] Weight 104.33 06/06/2016 [facility] Encounters Location Location Encounter Encounter Reason Attending ADM DC Status Source Details Type Number For Provider Date Date Visit [facility] Inpatient [id number] Marisel Coyle 06/06 06/21 DO [place] /2015 [facility] Procedures Procedure Code Date Perfomer Comments Source
--- OUTSIDE RECORDS SUMMARY | 2018-09-13 11:06 | XMS REPORT ---
:1960 [facility] Address [address] [place] [address] Care Team Providers Name Role Phone KENJUAN [...] Reference Range Comments METHYLMALONIC ACID, SERUM (test mezy=719656) 603 nmol/L 0-378 PERFORMED AT: [facility] [id number] [facility] ASSISTANT: Donnie Youssef MD PHONE: [phone], [id number] 06:50:00To start 15mins after 1st cultureSpecimen: BloodCollected: 2016 01:33 Status: Final Last Updated: 06/21/2017 06:49 (1) To start 15mins after 1st culture Culture Result (Final) (Final) No Growth After 5 DaysCULTURE, [id number] 06:50:00Specimen: BloodCollected: 06/16/2017 01: 20 Status: Final Last Updated: 06/21/2017 06:49 Culture Result (Final) ( Final) No Growth After 5 [id number] 09:05:00 Test Item Value Reference Range Comments [...] mL/min/1.73m\\S\\2 EGFR if Non- 17 Estimated Glomerular Singaporean (test mL/min/1.73m\\S\\2 Filtration Rate (eGFR) code=EGFRNA) Reference [...] of chronic kidney failure. CBC WITH AUTO [id number] 08:50:00 Test Item Value Reference Range Comments [...] code=IG%) 0.7 % 0.0-0.4 CBC WITH AUTO [id number] 01:49:00 Test Item Value Reference Range Comments [...] code=IG%) 0.9 % 0.0-0.4 CBC WITH AUTO [id number] 20:08:00 Test Item Value Reference Range Comments [...] code=IG%) 0.7 % 0.0-0.4 CBC WITH AUTO [id number] 13:58:00 Test Item Value Reference Range Comments [...] 1.0-3.0 IG% (test code=IG%) 0.7 % 0.0-0.4 [id number] 09:14:00 Test Item Value Reference Range Comments [...] mL/min/1.73m\\S\\2 EGFR if Non- 16 Estimated Glomerular Singaporean (test mL/min/1.73m\\S\\2 Filtration Rate (eGFR) code=EGFRNA) Reference [...] of chronic kidney failure. CBC WITH AUTO [id number] 09:05:00 Test Item Value Reference Range Comments [...] code=IG%) 0.7 % 0.0-0.4 CBC WITH AUTO [id number] 02:17:00 Test Item Value Reference Range Comments [...] code=IG%) 0.7 % 0.0-0.4 CBC WITH AUTO [id number] 20:02:00 Test Item Value Reference Range Comments [...] code=IG%) 0.8 % 0.0-0.4 CBC WITH AUTO [id number] 14:17:00 Test Item Value Reference Range Comments [...] 1.0-3.0 IG% (test code=IG%) 0.9 % 0.0-0.4 [id number] 08:47:00 Test Item Value Reference Range Comments Magnesium (test code=MG) 1.9 mg/dl 1.6-2.3 [id number] 08:47:00 Test Item Value Reference Range Comments [...] mL/min/1.73m\\S\\2 EGFR if Non- 17 Estimated Glomerular Singaporean (test mL/min/1.73m\\S\\2 Filtration Rate (eGFR) code=EGFRNA) Reference [...] of chronic kidney failure. CBC WITH AUTO [id number] 08:22:00 Test Item Value Reference Range Comments [...] code=IG%) 0.8 % 0.0-0.4 CBC WITH AUTO [id number] 03:42:00 Test Item Value Reference Range Comments [...] on ############### was changed to 1 by [id number] on 06/17/2017 03:42 Neutrophils (test 68 % 42-75 The value no value code=NEUTR) originally released by on ############### was changed to 68 by [id number] on 06/17/2017 03:42 Lymphocytes (test 16 % 13-42 The value no value code=LYMPH) originally released by on ############### was changed to 16 by [id number] on 06/17/2017 03:42 Monocytes (test 11 % 4-14 The value no value code=MONOS) originally released by on ############### was changed to 11 by [id number] on 06/17/2017 03:42 Eosinophils (test 3 % 1-3 The value no value code=EOS) originally released by on ############### was changed to 3 by [id number] on 06/17/2017 03:42 Basophils (test 1 % 0-1 The value no value code=BASO) originally released by on ############### was changed to 1 by [id number] on 06/17/2017 03:42 RBC Morphology (test Anisocytosis The value no value code=RBCMOR) Hypochromic originally released by on ############### was changed to Anisocytosis Hypochromic by [id number] on 06/17/2017 03:42 Platelet Morphology Giant platelets The value no value (test code=PLTMORPH) originally released by on ############### was changed to Giant platelets by [id number] on 06/17/2017 03:42 CBC WITH AUTO [id number] 19:54:00 Test Item Value Reference Range Comments [...] code=IG%) 0.8 % 0.0-0.4 CBC WITH AUTO [id number] 14:30:00 Test Item Value Reference Range Comments [...] code=IG%) 1.0 % 0.0-0.4 CBC WITH AUTO [id number] 07:35:00 Test Item Value Reference Range Comments [...] code=IG%) 1.2 % 0.0-0.4 HEP B SURFACE [id number] 07:14:00 Test Item Value Reference Range Comments [...] code=HBSAG) Negative (qualifier Negative value) TYPE & [id number] 04:15:00 Test Item Value Reference Range Comments ABO Blood Type (test code=ABO) O Rh (test code=RH) Positive Antibody Screen (test code=ABSCR) Negative Negative ARMBAND# (test code=ARMBAND) [id number] PRO-BNP(B-Type Natriuretic Peptide)2017-06-16 03:42:00 Test Item Value Reference Range Comments Pro-BNP(B-Peptide) 22230 pg/ml 0-125 THE METHODOLOGY FOR DETECTION OF [...] TIBC (test code=TIBC) 161 ug/dl 178-500 B12, [id number] 03:32:00 Test Item Value Reference Range Comments B12 (test code=B12) 717 pg/ml 239-941 [id number] 03:32:00 Test Item Value Reference Range Comments Folic Acid (test code=FOLIC) 5.35 ng/ml 2.76-20.00 IRON [id number] 03:32:00 Test Item Value Reference Range Comments Iron (test code=FETOT) 33 ug/dl 20-149 TIBC (test code=TIBC) 161 ug/dl 178-500 Iron Saturation (test code=FESAT) 20 % 16-62 [id number] 03:05:00 Test Item Value Reference Range Comments [...] (test code=BGCTHB) 9.6 gm/dl 11.5-17.4 O2Hb (test code=EXNK2WA) 94.7 % 95.0-99.0 COHb (test code=BGFCOHB) <2.8 [...] Notified (test code=BGTMNOTIFIED) 03:03 O2 Device (test code=ZFV5RGI9) ROOM AIR Instrument ID (test code=BGINSTRID) [id number] Reported By (test code=BGREPORTEDBY) LUCY GAMBLE GLYCOSALATED [id number] 02:39:00 Test Item Value Reference Range Comments Hemoglobin A1C (test 5.78 % 4.3-6.0 code=GLYCO) Mean Plasma Glucose (test 128 mg/dl 90-180 WHEN TEST RESULTS FOR A1C code=MPG) EXCEED 14.0, THE LINEAR LIMIT OF THE INSTRUMENT, THE CALCULATED RESULT FOR THE MEAN GLUCOSE IS NOT RELIABLE. CORONARY [id number] 02:22:00 Test Item Value Reference Range Comments [...] vLDL (test code=VLDL) 16 mg/dl 30-60 VANCOMYCIN, [id number] 02:19:00 Test Item Value Reference Range Comments Vancomycin, Trough (test 7.7 ug/ml 15.0-20.0 05/13/2009 Change in Therapeutic code=VANCT) Range, for Trough Level, has been implemented per P&T committee. INTERPRETATION GUIDE: CONSIDER SENSITIVITY REPORT IF NGUYEN IS=1 THERAPEUTIC RANGE IS 15-20 ug/ml IF NGUYEN IS > OR=2 CONSIDER ALTERNATE THERAPY [id number] 02:05:00 Test Item Value Reference Range Comments [...] mL/min/1.73m\\S\\2 EGFR if Non- 23 Estimated Glomerular Singaporean (test mL/min/1.73m\\S\\2 Filtration Rate (eGFR) code=EGFRNA) Reference Intervals Decision Points for 18 years and older and average body mass: >=60 Does not exclude kidney disease. 30 - 59 Suggests moderate chronic kidney disease and indicates the need for further investigation including assessment of proteinuria and cardiovascular factors. < 30 Usually indicates a need for referral for assessment and management of chronic kidney failure. [id number] 02:05:00 Test Item Value Reference Range Comments Magnesium (test code=MG) 1.9 mg/dl 1.6-2.3 CBC WITH AUTO [id number] 02:03:00 Test Item Value Reference Range Comments [...] code=IG%) 0.9 % 0.0-0.4 AFB CULTURE + [id number] 12:29:00 Test Item Value Reference Range Comments CULTURE (BEAKER) (test No acid-fast bacilli isolated rryq=8466) in 42 days AFB SMEAR (BEAKER) (test No acid fast bacilli seen kzhz=695) AFB CULTURE + [id number] 12:28:00 Test Item Value Reference Range Comments CULTURE (BEAKER) (test No acid-fast bacilli isolated wnrh=4126) in 42 days AFB SMEAR (BEAKER) (test No acid fast bacilli seen cnxd=920) FUNGUS CULTURE + [id number] 17:13:00 Test Item Value Reference Range Comments CULTURE (BEAKER) (test No fungus isolated in 28 days eesw=2970) FUNGUS SMEAR (BEAKER) (test No fungi seen gdyd=6938) FUNGUS CULTURE + [id number] 17:13:00 Test Item Value Reference Range Comments CULTURE (BEAKER) (test No fungus isolated in 28 days ncfn=4211) FUNGUS SMEAR (BEAKER) (test No fungi seen acsm=4712) FUNGUS CULTURE + [id number] 21:46:00 Test Item Value Reference Range Comments CULTURE (BEAKER) (test No fungus isolated in 28 days mxgq=6519) FUNGUS SMEAR (BEAKER) (test No fungi seen jajj=6190) POCT-GLUCOSE [id number] 17:22:00 Test Item Value Reference Range Comments POC-GLUCOSE METER (BEAKER) 169 mg/dL 70-110 TESTED AT [address] (test wlcc=6407) [place] [id number] POCT-GLUCOSE [id number] 12:13:00 Test Item Value Reference Range Comments POC-GLUCOSE METER (BEAKER) 165 mg/dL 70-110 TESTED AT [address] (test hbyx=5525) [place] [id number] POCT-GLUCOSE [id number] 07:48:00 Test Item Value Reference Range Comments POC-GLUCOSE METER (BEAKER) 132 mg/dL 70-110 TESTED AT [address] (test crkm=8078) [place] [id number] BASIC METABOLIC [id number] 07:26:00 Test Item Value Reference Range Comments SODIUM (BEAKER) (test 133 meq/L 136-145 cevx=580) POTASSIUM (BEAKER) (test 4.2 meq/L 3.5-5.1 czmq=058) CHLORIDE (BEAKER) (test 101 meq/L 98-107 rxcf=914) CO2 (BEAKER) (test 22 meq/L 22-29 gwna=957) BLOOD UREA NITROGEN 38 mg/dL 7-21 (BEAKER) (test ohng=522) CREATININE (BEAKER) (test 4.01 mg/dL 0.57-1.25 dudy=252) GLUCOSE RANDOM (BEAKER) 110 mg/dL 70-105 (test cgoe=738) CALCIUM (BEAKER) (test 8.7 mg/dL 8.4-10.2 fhii=333) EGFR (BEAKER) (test 15 mL/min/1.73 sq m ESTIMATED GFR IS NOT qlpg=4006) ACCURATE CREATININE CLEARANCE IN PREDICTING GLOMERULAR FILTRATION RATE. ESTIMATED GFR IS NOT APPLICABLE FOR DIALYSIS PATIENTS. [id number] 07:25:00 Test Item Value Reference Range Comments PHOSPHORUS (BEAKER) (test djmk=924) 4.4 mg/dL 2.3-4.7 [id number] 07:25:00 Test Item Value Reference Range Comments MAGNESIUM (BEAKER) (test nwod=126) 1.9 mg/dL 1.6-2.6 CBC W/PLT COUNT & AUTO [id number] 06:54:00 Test Item Value Reference Range Comments WHITE BLOOD CELL COUNT (BEAKER) (test wgtz=814) 12.6 K/ L 4.0-10.0 RED BLOOD CELL COUNT (BEAKER) (test pbsp=924) 2.78 M/ L 4.20-5.80 HEMOGLOBIN (BEAKER) (test hing=469) 8.3 GM/DL 13.0-16.8 HEMATOCRIT (BEAKER) (test pmpu=979) 25.1 % 40.0-50.0 MEAN CORPUSCULAR VOLUME (BEAKER) (test mrch=368) 90.3 fL 82.0-98.0 MEAN CORPUSCULAR HEMOGLOBIN (BEAKER) (test 29.8 pg 27.0-33.0 hwix=551) MEAN CORPUSCULAR HEMOGLOBIN CONC (BEAKER) (test 33.1 GM/DL 32.0-36.0 kndw=787) RED CELL DISTRIBUTION WIDTH (BEAKER) (test 16.1 % 10.3-14.2 hxux=202) PLATELET COUNT (BEAKER) (test ycaj=056) 290 K/CU MM 150-430 MEAN PLATELET VOLUME (BEAKER) (test bzvc=156) 7.2 fL 6.5-10.5 NUCLEATED RED BLOOD CELLS (BEAKER) (test 0 /100 WBC 0-0 cmdc=306) NEUTROPHILS RELATIVE PERCENT (BEAKER) (test 74 % ftwc=062) LYMPHOCYTES RELATIVE PERCENT (BEAKER) (test 15 % xgsx=627) MONOCYTES RELATIVE PERCENT (BEAKER) (test 9 % tlij=644) EOSINOPHILS RELATIVE PERCENT (BEAKER) (test 2 % lsus=416) BASOPHILS RELATIVE PERCENT (BEAKER) (test 0 % ndbg=035) NEUTROPHILS ABSOLUTE COUNT (BEAKER) (test 9.30 K/ L 1.80-8.00 tapk=045) LYMPHOCYTES ABSOLUTE COUNT (BEAKER) (test 1.89 K/ L 1.48-4.50 ngfq=943) MONOCYTES ABSOLUTE COUNT (BEAKER) (test 1.14 K/ L 0.00-1.30 ruei=576) EOSINOPHILS ABSOLUTE COUNT (BEAKER) (test 0.26 K/ L 0.00-0.50 mcpl=281) BASOPHILS ABSOLUTE COUNT (BEAKER) (test 0.05 K/ L 0.00-0.20 cnlo=595) 0.00POCT-GLUCOSE [id number] 22:31:00 Test Item Value Reference Range Comments POC-GLUCOSE METER (BEAKER) 133 mg/dL 70-110 TESTED AT [address] (test rikw=7630) [place] [address] POCT-GLUCOSE [id number] 17:17:00 Test Item Value Reference Range Comments POC-GLUCOSE METER (BEAKER) 119 mg/dL 70-110 TESTED AT [address] (test gxjk=1675) [place] [address] POCT-GLUCOSE [id number] 11:43:00 Test Item Value Reference Range Comments POC-GLUCOSE METER (BEAKER) 175 mg/dL 70-110 TESTED AT [address] (test mmpz=0926) [place] [address] CBC W/PLT COUNT & AUTO [id number] 08:39:00 Test Item Value Reference Range Comments WHITE BLOOD CELL COUNT (BEAKER) (test apgn=863) 13.4 K/ L 4.0-10.0 RED BLOOD CELL COUNT (BEAKER) (test ovkv=805) 2.91 M/ L 4.20-5.80 HEMOGLOBIN (BEAKER) (test jqpr=811) 8.6 GM/DL 13.0-16.8 HEMATOCRIT (BEAKER) (test mkgb=226) 26.5 % 40.0-50.0 MEAN CORPUSCULAR VOLUME (BEAKER) (test xaud=121) 91.1 fL 82.0-98.0 MEAN CORPUSCULAR HEMOGLOBIN (BEAKER) (test 29.4 pg 27.0-33.0 pwyg=051) MEAN CORPUSCULAR HEMOGLOBIN CONC (BEAKER) (test 32.3 GM/DL 32.0-36.0 gymf=822) RED CELL DISTRIBUTION WIDTH (BEAKER) (test 16.0 % 10.3-14.2 nzqo=951) PLATELET COUNT (BEAKER) (test wagj=190) 282 K/CU MM 150-430 MEAN PLATELET VOLUME (BEAKER) (test atqf=463) 7.7 fL 6.5-10.5 NUCLEATED RED BLOOD CELLS (BEAKER) (test 0 /100 WBC 0-0 kuxb=766) NEUTROPHILS RELATIVE PERCENT (BEAKER) (test 72 % pcxc=028) LYMPHOCYTES RELATIVE PERCENT (BEAKER) (test 16 % ajzx=348) MONOCYTES RELATIVE PERCENT (BEAKER) (test 10 % efvr=936) EOSINOPHILS RELATIVE PERCENT (BEAKER) (test 2 % vtcg=387) BASOPHILS RELATIVE PERCENT (BEAKER) (test 1 % wyak=609) NEUTROPHILS ABSOLUTE COUNT (BEAKER) (test 9.63 K/ L 1.80-8.00 bgki=625) LYMPHOCYTES ABSOLUTE COUNT (BEAKER) (test 2.15 K/ L 1.48-4.50 aifq=014) MONOCYTES ABSOLUTE COUNT (BEAKER) (test 1.32 K/ L 0.00-1.30 zzhu=455) EOSINOPHILS ABSOLUTE COUNT (BEAKER) (test 0.23 K/ L 0.00-0.50 cthy=629) BASOPHILS ABSOLUTE COUNT (BEAKER) (test 0.10 K/ L 0.00-0.20 fvge=236) 0.000.730.001.460.000.000.000.000.000.000.000.000.000.000.000.00(MANUAL DIFFERENTIAL)2016-12-24 08:39:00 Test Item Value Reference Range Comments TOTAL COUNTED (BEAKER) (test kdvo=7720) POCT-GLUCOSE [id number] 07:47:00 Test Item Value Reference Range Comments POC-GLUCOSE METER (BEAKER) 139 mg/dL 70-110 TESTED AT [address] (test gfdb=1113) [facility] [address] BASIC METABOLIC [id number] 06:50:00 Test Item Value Reference Range Comments SODIUM (BEAKER) (test 133 meq/L 136-145 tzha=812) POTASSIUM (BEAKER) (test 4.2 meq/L 3.5-5.1 kxcl=865) CHLORIDE (BEAKER) (test 102 meq/L 98-107 exzn=082) CO2 (BEAKER) (test 21 meq/L 22-29 kybp=885) BLOOD UREA NITROGEN 27 mg/dL 7-21 (BEAKER) (test hatx=628) CREATININE (BEAKER) (test 3.13 mg/dL 0.57-1.25 bdid=974) GLUCOSE RANDOM (BEAKER) 100 mg/dL 70-105 (test wiuz=176) CALCIUM (BEAKER) (test 8.8 mg/dL 8.4-10.2 uidj=140) EGFR (BEAKER) (test 21 mL/min/1.73 sq m ESTIMATED GFR IS NOT wnvt=9375) ACCURATE CREATININE CLEARANCE IN PREDICTING GLOMERULAR FILTRATION RATE. ESTIMATED GFR IS NOT APPLICABLE FOR DIALYSIS PATIENTS. [id number] 06:41:00 Test Item Value Reference Range Comments PHOSPHORUS (BEAKER) (test zvgk=073) 2.9 mg/dL 2.3-4.7 [id number] 06:41:00 Test Item Value Reference Range Comments MAGNESIUM (BEAKER) (test xvps=406) 1.7 mg/dL 1.6-2.6 POCT-GLUCOSE [id number] 21:52:00 Test Item Value Reference Range Comments POC-GLUCOSE METER (BEAKER) 97 mg/dL 70-110 TESTED AT [address] (test yizz=4010) [facility] [address] POCT-GLUCOSE [id number] 17:28:00 Test Item Value Reference Range Comments POC-GLUCOSE METER (BEAKER) 105 mg/dL 70-110 TESTED AT [address] (test rcsu=0320) [facility] [address] POCT-GLUCOSE [id number] 12:31:00 Test Item Value Reference Range Comments POC-GLUCOSE METER (BEAKER) 215 mg/dL 70-110 TESTED AT [address] (test vmbv=8733) [facility] [address] POCT-GLUCOSE [id number] 08:19:00 Test Item Value Reference Range Comments POC-GLUCOSE METER (BEAKER) 135 mg/dL 70-110 TESTED AT [facility] [address] (test ltbl=6278) [facility] [address] CBC W/PLT COUNT & AUTO [id number] 07:19:00 Test Item Value Reference Range Comments WHITE BLOOD CELL COUNT (BEAKER) (test mmgq=648) 15.0 K/ L 4.0-10.0 RED BLOOD CELL COUNT (BEAKER) (test lgmt=913) 3.04 M/ L 4.20-5.80 HEMOGLOBIN (BEAKER) (test xtlf=936) 8.8 GM/DL 13.0-16.8 HEMATOCRIT (BEAKER) (test ockn=558) 27.3 % 40.0-50.0 MEAN CORPUSCULAR VOLUME (BEAKER) (test sgyg=922) 89.8 fL 82.0-98.0 MEAN CORPUSCULAR HEMOGLOBIN (BEAKER) (test 29.0 pg 27.0-33.0 cjcy=441) MEAN CORPUSCULAR HEMOGLOBIN CONC (BEAKER) (test 32.3 GM/DL 32.0-36.0 mbiz=674) RED CELL DISTRIBUTION WIDTH (BEAKER) (test 17.0 % 10.3-14.2 nxgw=016) PLATELET COUNT (BEAKER) (test ysdt=246) 285 K/CU MM 150-430 MEAN PLATELET VOLUME (BEAKER) (test wbej=108) 7.2 fL 6.5-10.5 NUCLEATED RED BLOOD CELLS (BEAKER) (test 0 /100 WBC 0-0 potk=218) NEUTROPHILS RELATIVE PERCENT (BEAKER) (test 77 % gbak=170) LYMPHOCYTES RELATIVE PERCENT (BEAKER) (test 11 % lsuw=125) MONOCYTES RELATIVE PERCENT (BEAKER) (test 11 % xwix=747) EOSINOPHILS RELATIVE PERCENT (BEAKER) (test 1 % vhot=925) BASOPHILS RELATIVE PERCENT (BEAKER) (test 0 % pxjk=814) NEUTROPHILS ABSOLUTE COUNT (BEAKER) (test 11.50 K/ L 1.80-8.00 cwhz=537) LYMPHOCYTES ABSOLUTE COUNT (BEAKER) (test 1.72 K/ L 1.48-4.50 yfqm=340) MONOCYTES ABSOLUTE COUNT (BEAKER) (test 1.59 K/ L 0.00-1.30 iban=421) EOSINOPHILS ABSOLUTE COUNT (BEAKER) (test 0.17 K/ L 0.00-0.50 iups=972) BASOPHILS ABSOLUTE COUNT (BEAKER) (test 0.05 K/ L 0.00-0.20 wqws=146) [id number] 06:41:00 Test Item Value Reference Range Comments PHOSPHORUS (BEAKER) (test zmou=440) 2.1 mg/dL 2.3-4.7 [id number] 06:41:00 Test Item Value Reference Range Comments MAGNESIUM (BEAKER) (test karn=593) 1.8 mg/dL 1.6-2.6 BASIC METABOLIC [id number] 06:41:00 Test Item Value Reference Range Comments SODIUM (BEAKER) (test 134 meq/L 136-145 nnxa=497) POTASSIUM (BEAKER) (test 4.2 meq/L 3.5-5.1 fybl=250) CHLORIDE (BEAKER) (test 103 meq/L 98-107 drkf=525) CO2 (BEAKER) (test 23 meq/L 22-29 rdff=081) BLOOD UREA NITROGEN 18 mg/dL 7-21 (BEAKER) (test bcfj=358) CREATININE (BEAKER) (test 2.20 mg/dL 0.57-1.25 xzyq=902) GLUCOSE RANDOM (BEAKER) 105 mg/dL 70-105 (test wgeh=174) CALCIUM (BEAKER) (test 8.5 mg/dL 8.4-10.2 apfg=797) EGFR (BEAKER) (test 31 mL/min/1.73 sq m ESTIMATED GFR IS NOT ppol=2209) ACCURATE CREATININE CLEARANCE IN PREDICTING GLOMERULAR FILTRATION RATE. ESTIMATED GFR IS NOT APPLICABLE FOR DIALYSIS PATIENTS. POCT-GLUCOSE [id number] 21:43:00 Test Item Value Reference Range Comments POC-GLUCOSE METER (BEAKER) 278 mg/dL 70-110 TESTED AT [address] (test tblt=1469) [facility] [address] POCT-GLUCOSE [id number] 18:42:00 Test Item Value Reference Range Comments POC-GLUCOSE METER (BEAKER) 177 mg/dL 70-110 TESTED AT [address] (test xens=0742) [facility] [address] POCT-GLUCOSE [id number] 14:53:00 Test Item Value Reference Range Comments POC-GLUCOSE METER (BEAKER) 197 mg/dL 70-110 TESTED AT [place] [id number] [facility] (test xahk=5925) [facility] [address] CBC W/PLT COUNT & AUTO [id number] 12:20:00 Test Item Value Reference Range Comments WHITE BLOOD CELL COUNT (BEAKER) (test ygvd=563) 13.6 K/ L 4.0-10.0 RED BLOOD CELL COUNT (BEAKER) (test afuh=790) 2.85 M/ L 4.20-5.80 HEMOGLOBIN (BEAKER) (test yfxp=268) 8.3 GM/DL 13.0-16.8 HEMATOCRIT (BEAKER) (test guew=910) 25.8 % 40.0-50.0 MEAN CORPUSCULAR VOLUME (BEAKER) (test xwzd=075) 90.6 fL 82.0-98.0 MEAN CORPUSCULAR HEMOGLOBIN (BEAKER) (test 29.3 pg 27.0-33.0 pvhu=361) MEAN CORPUSCULAR HEMOGLOBIN CONC (BEAKER) (test 32.3 GM/DL 32.0-36.0 whcp=370) RED CELL DISTRIBUTION WIDTH (BEAKER) (test 16.7 % 10.3-14.2 gelo=031) PLATELET COUNT (BEAKER) (test ezpz=493) 252 K/CU MM 150-430 MEAN PLATELET VOLUME (BEAKER) (test nwoe=603) 7.4 fL 6.5-10.5 NUCLEATED RED BLOOD CELLS (BEAKER) (test 0 /100 WBC 0-0 gicr=205) NEUTROPHILS RELATIVE PERCENT (BEAKER) (test 75 % fwbh=937) LYMPHOCYTES RELATIVE PERCENT (BEAKER) (test 13 % atsp=889) MONOCYTES RELATIVE PERCENT (BEAKER) (test 10 % mzqm=683) EOSINOPHILS RELATIVE PERCENT (BEAKER) (test 2 % zxjc=981) BASOPHILS RELATIVE PERCENT (BEAKER) (test 0 % yjeu=957) NEUTROPHILS ABSOLUTE COUNT (BEAKER) (test 10.20 K/ L 1.80-8.00 wydx=349) LYMPHOCYTES ABSOLUTE COUNT (BEAKER) (test 1.78 K/ L 1.48-4.50 gehx=412) MONOCYTES ABSOLUTE COUNT (BEAKER) (test 1.32 K/ L 0.00-1.30 plhw=907) EOSINOPHILS ABSOLUTE COUNT (BEAKER) (test 0.22 K/ L 0.00-0.50 fijl=512) BASOPHILS ABSOLUTE COUNT (BEAKER) (test 0.06 K/ L 0.00-0.20 phze=820) 0.00POCT-GLUCOSE [id number] 08:28:00 Test Item Value Reference Range Comments POC-GLUCOSE METER (BEAKER) 132 mg/dL 70-110 TESTED AT [facility] [address] [facility] (test ujke=7084) [facility] [address] BASIC METABOLIC [id number] 07:26:00 Test Item Value Reference Range Comments SODIUM (BEAKER) (test 131 meq/L 136-145 hyuc=517) POTASSIUM (BEAKER) (test 4.2 meq/L 3.5-5.1 wdtg=066) CHLORIDE (BEAKER) (test 98 meq/L 98-107 lara=338) CO2 (BEAKER) (test 24 meq/L 22-29 ymkx=502) BLOOD UREA NITROGEN 25 mg/dL 7-21 (BEAKER) (test mnkn=715) CREATININE (BEAKER) (test 3.02 mg/dL 0.57-1.25 xofl=105) GLUCOSE RANDOM (BEAKER) 103 mg/dL 70-105 (test cger=302) CALCIUM (BEAKER) (test 8.1 mg/dL 8.4-10.2 kbbq=109) EGFR (BEAKER) (test 21 mL/min/1.73 sq m ESTIMATED GFR IS NOT case=1666) ACCURATE CREATININE CLEARANCE IN PREDICTING GLOMERULAR FILTRATION RATE. ESTIMATED GFR IS NOT APPLICABLE FOR DIALYSIS PATIENTS. [id number] 07:17:00 Test Item Value Reference Range Comments PHOSPHORUS (BEAKER) (test fmkn=456) 3.1 mg/dL 2.3-4.7 [id number] 07:17:00 Test Item Value Reference Range Comments MAGNESIUM (BEAKER) (test xypl=488) 1.8 mg/dL 1.6-2.6 CALCIUM, [id number] 05:38:00 Test Item Value Reference Range Comments CALCIUM IONIZED (BEAKER) (test apuk=417) 1.09 mmol/L 1.12-1.27 PH, BLOOD (BEAKER) (test nlwb=2164) 7.45 POCT-GLUCOSE [id number] 21:45:00 Test Item Value Reference Range Comments POC-GLUCOSE METER (BEAKER) 121 mg/dL 70-110 TESTED AT [address] (test jgbv=8857) [facility] [address] POCT-GLUCOSE [id number] 16:48:00 Test Item Value Reference Range Comments POC-GLUCOSE METER (BEAKER) 157 mg/dL 70-110 TESTED AT [address] (test sbxy=8603) [facility] [address] POCT-GLUCOSE [id number] 12:16:00 Test Item Value Reference Range Comments POC-GLUCOSE METER (BEAKER) 247 mg/dL 70-110 TESTED AT [address] (test cfqu=4665) [facility] [address] POCT-GLUCOSE [id number] 08:14:00 Test Item Value Reference Range Comments POC-GLUCOSE METER (BEAKER) 166 mg/dL 70-110 TESTED AT [address] (test eswr=6218) [facility] [address] BASIC METABOLIC [id number] 07:58:00 Test Item Value Reference Range Comments SODIUM (BEAKER) (test 131 meq/L 136-145 qgwh=179) POTASSIUM (BEAKER) (test 3.9 meq/L 3.5-5.1 kgvj=303) CHLORIDE (BEAKER) (test 99 meq/L 98-107 nxyq=290) CO2 (BEAKER) (test 26 meq/L 22-29 dvnp=915) BLOOD UREA NITROGEN 18 mg/dL 7-21 (BEAKER) (test xfnb=251) CREATININE (BEAKER) (test 2.32 mg/dL 0.57-1.25 vdzy=947) GLUCOSE RANDOM (BEAKER) 145 mg/dL 70-105 (test fhxg=311) CALCIUM (BEAKER) (test 8.1 mg/dL 8.4-10.2 yjmo=593) EGFR (BEAKER) (test 29 mL/min/1.73 sq m ESTIMATED GFR IS NOT bscx=2741) ACCURATE CREATININE CLEARANCE IN PREDICTING GLOMERULAR FILTRATION RATE. ESTIMATED GFR IS NOT APPLICABLE FOR DIALYSIS PATIENTS. CBC W/PLT COUNT & AUTO [id number] 07:50:00 Test Item Value Reference Range Comments WHITE BLOOD CELL COUNT (BEAKER) (test pfao=626) 15.3 K/ L 4.0-10.0 RED BLOOD CELL COUNT (BEAKER) (test pbmz=454) 3.00 M/ L 4.20-5.80 HEMOGLOBIN (BEAKER) (test iqfq=543) 8.4 GM/DL 13.0-16.8 HEMATOCRIT (BEAKER) (test walo=870) 27.3 % 40.0-50.0 MEAN CORPUSCULAR VOLUME (BEAKER) (test itmc=642) 90.9 fL 82.0-98.0 MEAN CORPUSCULAR HEMOGLOBIN (BEAKER) (test 28.0 pg 27.0-33.0 ovka=592) MEAN CORPUSCULAR HEMOGLOBIN CONC (BEAKER) (test 30.8 GM/DL 32.0-36.0 wolh=951) RED CELL DISTRIBUTION WIDTH (BEAKER) (test 15.9 % 10.3-14.2 eglg=202) PLATELET COUNT (BEAKER) (test jntx=757) 271 K/CU MM 150-430 MEAN PLATELET VOLUME (BEAKER) (test psye=442) 7.4 fL 6.5-10.5 NUCLEATED RED BLOOD CELLS (BEAKER) (test 0 /100 WBC 0-0 scsm=369) NEUTROPHILS RELATIVE PERCENT (BEAKER) (test 76 % yqjc=439) LYMPHOCYTES RELATIVE PERCENT (BEAKER) (test 14 % nxgp=996) MONOCYTES RELATIVE PERCENT (BEAKER) (test 9 % ujos=406) EOSINOPHILS RELATIVE PERCENT (BEAKER) (test 1 % dkvj=218) BASOPHILS RELATIVE PERCENT (BEAKER) (test 0 % ozrw=590) NEUTROPHILS ABSOLUTE COUNT (BEAKER) (test 11.60 K/ L 1.80-8.00 hdjl=592) LYMPHOCYTES ABSOLUTE COUNT (BEAKER) (test 2.11 K/ L 1.48-4.50 cyou=828) MONOCYTES ABSOLUTE COUNT (BEAKER) (test 1.36 K/ L 0.00-1.30 drps=850) EOSINOPHILS ABSOLUTE COUNT (BEAKER) (test 0.17 K/ L 0.00-0.50 rbso=949) BASOPHILS ABSOLUTE COUNT (BEAKER) (test 0.06 K/ L 0.00-0.20 oxbr=417) [id number] 07:24:00 Test Item Value Reference Range Comments PHOSPHORUS (BEAKER) (test ddgv=670) 2.1 mg/dL 2.3-4.7 [id number] 07:24:00 Test Item Value Reference Range Comments MAGNESIUM (BEAKER) (test apjq=132) 1.6 mg/dL 1.6-2.6 POCT-GLUCOSE [id number] 20:38:00 Test Item Value Reference Range Comments POC-GLUCOSE METER (BEAKER) 191 mg/dL 70-110 TESTED AT [address] (test gcxj=6075) [place] [id number] POCT-GLUCOSE [id number] 17:32:00 Test Item Value Reference Range Comments POC-GLUCOSE METER (BEAKER) 229 mg/dL 70-110 TESTED AT [address] (test njks=7872) [place] [address] VANCOMYCIN LEVEL, [id number] 16:51:00 Test Item Value Reference Range Comments VANCOMYCIN TROUGH (BEAKER) (test agpi=773) 17.2 ug/mL 10.0-20.0 At end of dialysis on 12/20/16POCT-GLUCOSE [id number] 11:49:00 Test Item Value Reference Range Comments POC-GLUCOSE METER (BEAKER) 97 mg/dL 70-110 TESTED AT [address] (test dhzu=8095) [place] [id number] POCT-GLUCOSE [id number] 07:38:00 Test Item Value Reference Range Comments POC-GLUCOSE METER (BEAKER) 151 mg/dL 70-110 TESTED AT [address] (test tqoj=4348) [place] [id number] BASIC METABOLIC [id number] 06:39:00 Test Item Value Reference Range Comments SODIUM (BEAKER) (test 134 meq/L 136-145 dtmz=857) POTASSIUM (BEAKER) (test 3.9 meq/L 3.5-5.1 nisx=924) CHLORIDE (BEAKER) (test 102 meq/L 98-107 ohuu=103) CO2 (BEAKER) (test 24 meq/L 22-29 fovh=394) BLOOD UREA NITROGEN 23 mg/dL 7-21 (BEAKER) (test tzpz=345) CREATININE (BEAKER) (test 2.91 mg/dL 0.57-1.25 doeb=836) GLUCOSE RANDOM (BEAKER) 99 mg/dL 70-105 (test aahz=989) CALCIUM (BEAKER) (test 8.2 mg/dL 8.4-10.2 blrk=269) EGFR (BEAKER) (test 22 mL/min/1.73 sq m ESTIMATED GFR IS NOT dboe=6898) ACCURATE CREATININE CLEARANCE IN PREDICTING GLOMERULAR FILTRATION RATE. ESTIMATED GFR IS NOT APPLICABLE FOR DIALYSIS PATIENTS. [id number] 06:37:00 Test Item Value Reference Range Comments PHOSPHORUS (BEAKER) (test vakc=408) 2.9 mg/dL 2.3-4.7 [id number] 06:37:00 Test Item Value Reference Range Comments MAGNESIUM (BEAKER) (test hkmr=068) 1.6 mg/dL 1.6-2.6 CBC W/PLT COUNT & AUTO [id number] 06:36:00 Test Item Value Reference Range Comments WHITE BLOOD CELL COUNT (BEAKER) (test wity=365) 14.1 K/ L 4.0-10.0 RED BLOOD CELL COUNT (BEAKER) (test veyd=145) 3.01 M/ L 4.20-5.80 HEMOGLOBIN (BEAKER) (test kegy=651) 8.7 GM/DL 13.0-16.8 HEMATOCRIT (BEAKER) (test yqxs=232) 26.8 % 40.0-50.0 MEAN CORPUSCULAR VOLUME (BEAKER) (test cyvq=358) 88.9 fL 82.0-98.0 MEAN CORPUSCULAR HEMOGLOBIN (BEAKER) (test 28.8 pg 27.0-33.0 qwis=871) MEAN CORPUSCULAR HEMOGLOBIN CONC (BEAKER) (test 32.5 GM/DL 32.0-36.0 kkhz=789) RED CELL DISTRIBUTION WIDTH (BEAKER) (test 16.3 % 10.3-14.2 ujjt=679) PLATELET COUNT (BEAKER) (test srei=235) 242 K/CU MM 150-430 MEAN PLATELET VOLUME (BEAKER) (test ceot=794) 6.9 fL 6.5-10.5 NUCLEATED RED BLOOD CELLS (BEAKER) (test 0 /100 WBC 0-0 uqtw=077) NEUTROPHILS RELATIVE PERCENT (BEAKER) (test 73 % adjp=046) LYMPHOCYTES RELATIVE PERCENT (BEAKER) (test 15 % orto=108) MONOCYTES RELATIVE PERCENT (BEAKER) (test 9 % vsvk=570) EOSINOPHILS RELATIVE PERCENT (BEAKER) (test 2 % dart=232) BASOPHILS RELATIVE PERCENT (BEAKER) (test 0 % idgp=612) NEUTROPHILS ABSOLUTE COUNT (BEAKER) (test 10.30 K/ L 1.80-8.00 aqrc=153) LYMPHOCYTES ABSOLUTE COUNT (BEAKER) (test 2.14 K/ L 1.48-4.50 uxtj=839) MONOCYTES ABSOLUTE COUNT (BEAKER) (test 1.33 K/ L 0.00-1.30 auxp=011) EOSINOPHILS ABSOLUTE COUNT (BEAKER) (test 0.29 K/ L 0.00-0.50 gqwb=634) BASOPHILS ABSOLUTE COUNT (BEAKER) (test 0.06 K/ L 0.00-0.20 zmcu=722) 0.00CALCIUM, [id number] 06:24:00 Test Item Value Reference Range Comments CALCIUM IONIZED (BEAKER) (test zwnh=400) 1.08 mmol/L 1.12-1.27 PH, BLOOD (BEAKER) (test blwm=9241) 7.46 POCT-GLUCOSE [id number] 22:24:00 Test Item Value Reference Range Comments POC-GLUCOSE METER (BEAKER) 166 mg/dL 70-110 TESTED AT [address] (test dtqq=5437) [place] [id number] POCT-GLUCOSE [id number] 16:17:00 Test Item Value Reference Range Comments POC-GLUCOSE METER (BEAKER) 132 mg/dL 70-110 TESTED AT [address] (test gsha=3175) [place] [address] POCT-GLUCOSE [id number] 12:16:00 Test Item Value Reference Range Comments POC-GLUCOSE METER (BEAKER) 90 mg/dL 70-110 TESTED AT [address] (test ulmz=2532) [place] [address] POCT-GLUCOSE [id number] 08:13:00 Test Item Value Reference Range Comments POC-GLUCOSE METER (BEAKER) 111 mg/dL 70-110 TESTED AT [address] (test paat=0588) [place] [id number] CBC W/PLT COUNT & AUTO [id number] 07:40:00 Test Item Value Reference Range Comments WHITE BLOOD CELL COUNT (BEAKER) (test ydvn=489) 11.9 K/ L 4.0-10.0 RED BLOOD CELL COUNT (BEAKER) (test txmy=011) 3.11 M/ L 4.20-5.80 HEMOGLOBIN (BEAKER) (test rrdu=182) 8.9 GM/DL 13.0-16.8 HEMATOCRIT (BEAKER) (test wjab=487) 28.0 % 40.0-50.0 MEAN CORPUSCULAR VOLUME (BEAKER) (test cefk=402) 90.3 fL 82.0-98.0 MEAN CORPUSCULAR HEMOGLOBIN (BEAKER) (test 28.7 pg 27.0-33.0 ogfj=229) MEAN CORPUSCULAR HEMOGLOBIN CONC (BEAKER) (test 31.8 GM/DL 32.0-36.0 hwbj=160) RED CELL DISTRIBUTION WIDTH (BEAKER) (test 15.5 % 10.3-14.2 dpdv=754) PLATELET COUNT (BEAKER) (test qotu=643) 252 K/CU MM 150-430 MEAN PLATELET VOLUME (BEAKER) (test qyga=401) 7.1 fL 6.5-10.5 NUCLEATED RED BLOOD CELLS (BEAKER) (test 0 /100 WBC 0-0 hagt=074) NEUTROPHILS RELATIVE PERCENT (BEAKER) (test 69 % umcm=000) LYMPHOCYTES RELATIVE PERCENT (BEAKER) (test 18 % zucr=150) MONOCYTES RELATIVE PERCENT (BEAKER) (test 11 % dzdo=803) EOSINOPHILS RELATIVE PERCENT (BEAKER) (test 2 % plwr=590) BASOPHILS RELATIVE PERCENT (BEAKER) (test 0 % ghpc=882) NEUTROPHILS ABSOLUTE COUNT (BEAKER) (test 8.27 K/ L 1.80-8.00 hyal=412) LYMPHOCYTES ABSOLUTE COUNT (BEAKER) (test 2.09 K/ L 1.48-4.50 buza=953) MONOCYTES ABSOLUTE COUNT (BEAKER) (test 1.35 K/ L 0.00-1.30 hngz=151) EOSINOPHILS ABSOLUTE COUNT (BEAKER) (test 0.19 K/ L 0.00-0.50 woni=821) BASOPHILS ABSOLUTE COUNT (BEAKER) (test 0.04 K/ L 0.00-0.20 xghh=821) [id number] 07:29:00 Test Item Value Reference Range Comments PHOSPHORUS (BEAKER) (test cqxo=576) 1.8 mg/dL 2.3-4.7 [id number] 07:29:00 Test Item Value Reference Range Comments MAGNESIUM (BEAKER) (test pgvn=822) 1.6 mg/dL 1.6-2.6 BASIC METABOLIC [id number] 07:29:00 Test Item Value Reference Range Comments SODIUM (BEAKER) (test 135 meq/L 136-145 xfig=443) POTASSIUM (BEAKER) (test 3.7 meq/L 3.5-5.1 jhbt=394) CHLORIDE (BEAKER) (test 104 meq/L 98-107 icun=211) CO2 (BEAKER) (test 24 meq/L 22-29 cksz=303) BLOOD UREA NITROGEN 12 mg/dL 7-21 (BEAKER) (test iyec=891) CREATININE (BEAKER) (test 2.00 mg/dL 0.57-1.25 qiph=957) GLUCOSE RANDOM (BEAKER) 81 mg/dL 70-105 (test qwlr=025) CALCIUM (BEAKER) (test 8.2 mg/dL 8.4-10.2 hqba=036) EGFR (BEAKER) (test 34 mL/min/1.73 sq m ESTIMATED GFR IS NOT tyos=5099) ACCURATE CREATININE CLEARANCE IN PREDICTING GLOMERULAR FILTRATION RATE. ESTIMATED GFR IS NOT APPLICABLE FOR DIALYSIS PATIENTS. POCT-GLUCOSE [id number] 21:13:00 Test Item Value Reference Range Comments POC-GLUCOSE METER (BEAKER) 107 mg/dL 70-110 TESTED AT [address] (test dwai=2155) [facility] [address] POCT-GLUCOSE [id number] 17:33:00 Test Item Value Reference Range Comments POC-GLUCOSE METER (BEAKER) 131 mg/dL 70-110 TESTED AT [address] (test lmca=6049) [facility] [address] POCT-GLUCOSE [id number] 13:05:00 Test Item Value Reference Range Comments POC-GLUCOSE METER (BEAKER) 188 mg/dL 70-110 TESTED AT [address] (test igdo=5335) [facility] [address] POCT-GLUCOSE [id number] 09:01:00 Test Item Value Reference Range Comments POC-GLUCOSE METER (BEAKER) 103 mg/dL 70-110 TESTED AT [place] [id number] [facility] (test skwv=6516) [facility] [address] CBC W/PLT COUNT & AUTO [id number] 07:08:00 Test Item Value Reference Range Comments WHITE BLOOD CELL COUNT (BEAKER) (test otoi=377) 12.7 K/ L 4.0-10.0 RED BLOOD CELL COUNT (BEAKER) (test geyd=962) 3.09 M/ L 4.20-5.80 HEMOGLOBIN (BEAKER) (test ujtj=855) 9.0 GM/DL 13.0-16.8 HEMATOCRIT (BEAKER) (test pwkb=584) 27.4 % 40.0-50.0 MEAN CORPUSCULAR VOLUME (BEAKER) (test qsga=719) 88.8 fL 82.0-98.0 MEAN CORPUSCULAR HEMOGLOBIN (BEAKER) (test 29.0 pg 27.0-33.0 xccw=967) MEAN CORPUSCULAR HEMOGLOBIN CONC (BEAKER) (test 32.7 GM/DL 32.0-36.0 kwza=555) RED CELL DISTRIBUTION WIDTH (BEAKER) (test 15.7 % 10.3-14.2 pezw=343) PLATELET COUNT (BEAKER) (test dkjr=447) 257 K/CU MM 150-430 MEAN PLATELET VOLUME (BEAKER) (test kqah=495) 7.0 fL 6.5-10.5 NUCLEATED RED BLOOD CELLS (BEAKER) (test 0 /100 WBC 0-0 trmz=805) NEUTROPHILS RELATIVE PERCENT (BEAKER) (test 74 % yjrw=852) LYMPHOCYTES RELATIVE PERCENT (BEAKER) (test 14 % ixio=702) MONOCYTES RELATIVE PERCENT (BEAKER) (test 9 % vlac=488) EOSINOPHILS RELATIVE PERCENT (BEAKER) (test 2 % ofrx=533) BASOPHILS RELATIVE PERCENT (BEAKER) (test 0 % wuxt=360) NEUTROPHILS ABSOLUTE COUNT (BEAKER) (test 9.38 K/ L 1.80-8.00 aayy=182) LYMPHOCYTES ABSOLUTE COUNT (BEAKER) (test 1.80 K/ L 1.48-4.50 dojf=319) MONOCYTES ABSOLUTE COUNT (BEAKER) (test 1.20 K/ L 0.00-1.30 rgjf=045) EOSINOPHILS ABSOLUTE COUNT (BEAKER) (test 0.24 K/ L 0.00-0.50 jyfu=139) BASOPHILS ABSOLUTE COUNT (BEAKER) (test 0.05 K/ L 0.00-0.20 lxew=277) [id number] 06:17:00 Test Item Value Reference Range Comments PHOSPHORUS (BEAKER) (test tqft=900) 2.4 mg/dL 2.3-4.7 [id number] 06:17:00 Test Item Value Reference Range Comments MAGNESIUM (BEAKER) (test gdnj=509) 1.5 mg/dL 1.6-2.6 BASIC METABOLIC [id number] 06:17:00 Test Item Value Reference Range Comments SODIUM (BEAKER) (test 135 meq/L 136-145 nsri=254) POTASSIUM (BEAKER) (test 3.7 meq/L 3.5-5.1 jdjd=389) CHLORIDE (BEAKER) (test 104 meq/L 98-107 emvf=039) CO2 (BEAKER) (test 23 meq/L 22-29 ohbr=345) BLOOD UREA NITROGEN 24 mg/dL 7-21 (BEAKER) (test mmkq=025) CREATININE (BEAKER) (test 2.70 mg/dL 0.57-1.25 yjiy=244) GLUCOSE RANDOM (BEAKER) 93 mg/dL 70-105 (test fxwg=862) CALCIUM (BEAKER) (test 8.4 mg/dL 8.4-10.2 crtf=333) EGFR (BEAKER) (test 24 mL/min/1.73 sq m ESTIMATED GFR IS NOT gkgq=5549) ACCURATE CREATININE CLEARANCE IN PREDICTING GLOMERULAR FILTRATION RATE. ESTIMATED GFR IS NOT APPLICABLE FOR DIALYSIS PATIENTS. POCT-GLUCOSE [id number] 23:43:00 Test Item Value Reference Range Comments POC-GLUCOSE METER (BEAKER) 100 mg/dL 70-110 TESTED AT [facility] [address] (test zfum=7818) [facility] [address] POCT-GLUCOSE [id number] 17:44:00 Test Item Value Reference Range Comments POC-GLUCOSE METER (BEAKER) 208 mg/dL 70-110 TESTED AT [address] (test oejq=9351) [facility] [address] ANAEROBIC [id number] 14:43:00 Test Item Value Reference Range Comments CULTURE (BEAKER) (test whjq=7653) No anaerobes isolated ANAEROBIC [id number] 14:42:00 Test Item Value Reference Range Comments CULTURE (BEAKER) (test cowq=1964) No anaerobes isolated POCT-GLUCOSE [id number] 12:02:00 Test Item Value Reference Range Comments POC-GLUCOSE METER (BEAKER) 208 mg/dL 70-110 TESTED AT [address] (test xdbe=8298) [place] [id number] POCT-GLUCOSE [id number] 09:52:00 Test Item Value Reference Range Comments POC-GLUCOSE METER (BEAKER) 86 mg/dL 70-110 TESTED AT [address] (test ihsx=1523) [facility] [address] CBC W/PLT COUNT & AUTO [id number] 07:11:00 Test Item Value Reference Range Comments WHITE BLOOD CELL COUNT (BEAKER) (test cbzq=669) 11.1 K/ L 4.0-10.0 RED BLOOD CELL COUNT (BEAKER) (test grdw=464) 3.26 M/ L 4.20-5.80 HEMOGLOBIN (BEAKER) (test zrwv=871) 9.6 GM/DL 13.0-16.8 HEMATOCRIT (BEAKER) (test gran=488) 29.4 % 40.0-50.0 MEAN CORPUSCULAR VOLUME (BEAKER) (test rnfs=262) 90.2 fL 82.0-98.0 MEAN CORPUSCULAR HEMOGLOBIN (BEAKER) (test 29.5 pg 27.0-33.0 lybs=281) MEAN CORPUSCULAR HEMOGLOBIN CONC (BEAKER) (test 32.7 GM/DL 32.0-36.0 mfyz=561) RED CELL DISTRIBUTION WIDTH (BEAKER) (test 14.7 % 10.3-14.2 vjgt=061) PLATELET COUNT (BEAKER) (test ybbz=587) 280 K/CU MM 150-430 MEAN PLATELET VOLUME (BEAKER) (test ifax=254) 6.8 fL 6.5-10.5 NUCLEATED RED BLOOD CELLS (BEAKER) (test 0 /100 WBC 0-0 huhj=110) NEUTROPHILS RELATIVE PERCENT (BEAKER) (test 73 % dopm=759) LYMPHOCYTES RELATIVE PERCENT (BEAKER) (test 15 % bmlz=167) MONOCYTES RELATIVE PERCENT (BEAKER) (test 10 % mxme=231) EOSINOPHILS RELATIVE PERCENT (BEAKER) (test 2 % dejz=286) BASOPHILS RELATIVE PERCENT (BEAKER) (test 0 % ywur=820) NEUTROPHILS ABSOLUTE COUNT (BEAKER) (test 8.08 K/ L 1.80-8.00 jzvy=811) LYMPHOCYTES ABSOLUTE COUNT (BEAKER) (test 1.66 K/ L 1.48-4.50 jiow=265) MONOCYTES ABSOLUTE COUNT (BEAKER) (test 1.06 K/ L 0.00-1.30 zoic=292) EOSINOPHILS ABSOLUTE COUNT (BEAKER) (test 0.26 K/ L 0.00-0.50 qbcz=981) BASOPHILS ABSOLUTE COUNT (BEAKER) (test 0.05 K/ L 0.00-0.20 pque=648) [id number] 06:02:00 Test Item Value Reference Range Comments PHOSPHORUS (BEAKER) (test rilx=241) 1.7 mg/dL 2.3-4.7 [id number] 06:02:00 Test Item Value Reference Range Comments MAGNESIUM (BEAKER) (test iowt=513) 1.5 mg/dL 1.6-2.6 BASIC METABOLIC [id number] 06:02:00 Test Item Value Reference Range Comments SODIUM (BEAKER) (test 136 meq/L 136-145 lhfa=570) POTASSIUM (BEAKER) (test 3.9 meq/L 3.5-5.1 tckq=428) CHLORIDE (BEAKER) (test 103 meq/L 98-107 smiv=108) CO2 (BEAKER) (test 25 meq/L 22-29 xbcu=730) BLOOD UREA NITROGEN 13 mg/dL 7-21 (BEAKER) (test clhw=031) CREATININE (BEAKER) (test 1.67 mg/dL 0.57-1.25 rrqs=839) GLUCOSE RANDOM (BEAKER) 74 mg/dL 70-105 (test rfyl=921) CALCIUM (BEAKER) (test 8.7 mg/dL 8.4-10.2 whvo=280) EGFR (BEAKER) (test 42 mL/min/1.73 sq m ESTIMATED GFR IS NOT ayof=0477) ACCURATE CREATININE CLEARANCE IN PREDICTING GLOMERULAR FILTRATION RATE. ESTIMATED GFR IS NOT APPLICABLE FOR DIALYSIS PATIENTS. POCT-GLUCOSE [id number] 21:46:00 Test Item Value Reference Range Comments POC-GLUCOSE METER (BEAKER) 83 mg/dL 70-110 TESTED AT [address] (test uflz=7999) [place] [id number] POCT-GLUCOSE [id number] 17:45:00 Test Item Value Reference Range Comments POC-GLUCOSE METER (BEAKER) 83 mg/dL 70-110 TESTED AT [address] (test quac=4182) [place] [address] POCT-GLUCOSE [id number] 11:03:00 Test Item Value Reference Range Comments POC-GLUCOSE METER (BEAKER) 152 mg/dL 70-110 TESTED AT [address] (test bgax=5788) [place] [address] CBC W/PLT COUNT & AUTO [id number] 08:54:00 Test Item Value Reference Range Comments WHITE BLOOD CELL COUNT (BEAKER) (test bawc=763) 14.2 K/ L 4.0-10.0 RED BLOOD CELL COUNT (BEAKER) (test mhmb=188) 2.99 M/ L 4.20-5.80 HEMOGLOBIN (BEAKER) (test evuf=809) 8.6 GM/DL 13.0-16.8 HEMATOCRIT (BEAKER) (test loxs=866) 27.1 % 40.0-50.0 MEAN CORPUSCULAR VOLUME (BEAKER) (test rrto=087) 90.6 fL 82.0-98.0 MEAN CORPUSCULAR HEMOGLOBIN (BEAKER) (test 28.6 pg 27.0-33.0 rauu=335) MEAN CORPUSCULAR HEMOGLOBIN CONC (BEAKER) (test 31.6 GM/DL 32.0-36.0 nfnl=002) RED CELL DISTRIBUTION WIDTH (BEAKER) (test 14.6 % 10.3-14.2 xsvt=059) PLATELET COUNT (BEAKER) (test zmez=807) 285 K/CU MM 150-430 MEAN PLATELET VOLUME (BEAKER) (test qnoc=645) 7.1 fL 6.5-10.5 NUCLEATED RED BLOOD CELLS (BEAKER) (test 0 /100 WBC 0-0 awly=145) NEUTROPHILS RELATIVE PERCENT (BEAKER) (test 79 % fnao=106) LYMPHOCYTES RELATIVE PERCENT (BEAKER) (test 10 % azoc=120) MONOCYTES RELATIVE PERCENT (BEAKER) (test 9 % xolx=184) EOSINOPHILS RELATIVE PERCENT (BEAKER) (test 2 % ewya=113) BASOPHILS RELATIVE PERCENT (BEAKER) (test 0 % pjrs=659) NEUTROPHILS ABSOLUTE COUNT (BEAKER) (test 11.20 K/ L 1.80-8.00 lvia=727) LYMPHOCYTES ABSOLUTE COUNT (BEAKER) (test 1.40 K/ L 1.48-4.50 gfvy=893) MONOCYTES ABSOLUTE COUNT (BEAKER) (test 1.30 K/ L 0.00-1.30 jzsj=415) EOSINOPHILS ABSOLUTE COUNT (BEAKER) (test 0.27 K/ L 0.00-0.50 dzdq=361) BASOPHILS ABSOLUTE COUNT (BEAKER) (test 0.04 K/ L 0.00-0.20 jfvm=997) 0.00BASIC METABOLIC [id number] 08:46:00 Test Item Value Reference Range Comments SODIUM (BEAKER) (test 138 meq/L 136-145 wtzu=930) POTASSIUM (BEAKER) (test 3.8 meq/L 3.5-5.1 nsgd=212) CHLORIDE (BEAKER) (test 103 meq/L 98-107 vqyl=499) CO2 (BEAKER) (test 25 meq/L 22-29 rtjm=728) BLOOD UREA NITROGEN 29 mg/dL 7-21 (BEAKER) (test omqf=638) CREATININE (BEAKER) (test 2.68 mg/dL 0.57-1.25 essw=695) GLUCOSE RANDOM (BEAKER) 91 mg/dL 70-105 (test ugbv=814) CALCIUM (BEAKER) (test 7.9 mg/dL 8.4-10.2 gpru=636) EGFR (BEAKER) (test 25 mL/min/1.73 sq m ESTIMATED GFR IS NOT nsqb=2249) ACCURATE CREATININE CLEARANCE IN PREDICTING GLOMERULAR FILTRATION RATE. ESTIMATED GFR IS NOT APPLICABLE FOR DIALYSIS PATIENTS. VANCOMYCIN LEVEL, [id number] 07:53:00 Test Item Value Reference Range Comments VANCOMYCIN RANDOM (BEAKER) (test exqm=946) 15.1 ug/mL Reference Range: No NormalsPOCT-GLUCOSE [id number] 07:52:00 Test Item Value Reference Range Comments POC-GLUCOSE METER (BEAKER) 126 mg/dL 70-110 TESTED AT [address] (test amiv=8742) [place] [address] [id number] 07:50:00 Test Item Value Reference Range Comments PHOSPHORUS (BEAKER) (test mesz=874) 2.1 mg/dL 2.3-4.7 [id number] 07:50:00 Test Item Value Reference Range Comments MAGNESIUM (BEAKER) (test svrm=879) 1.7 mg/dL 1.6-2.6 POCT-GLUCOSE [id number] 21:08:00 Test Item Value Reference Range Comments POC-GLUCOSE METER (BEAKER) 234 mg/dL 70-110 TESTED AT [address] (test susy=5781) [place] [address] POCT-GLUCOSE [id number] 17:02:00 Test Item Value Reference Range Comments POC-GLUCOSE METER (BEAKER) 230 mg/dL 70-110 TESTED AT [address] (test xswd=9601) [place] [address] SURGICALLY OBTAINED CULTURE + GRAM [id number] 09:26:00 Test Item Value Reference Range Comments CULTURE (BEAKER) (test <1+ Same organism has been rtuc=3677) isolated from cultures(s) of the same body site and collection date. Repeat identification and susceptibility testing performed only after consultation with the clinical microbiology laboratory.Refer to previous culture ofMethicillin resistant Staphylococcus aureus GRAM STAIN RESULT <1+ WBCs (BEAKER) (test zkir=8081) GRAM STAIN RESULT No organisms seen (BEAKER) (test usxw=670778) SURGICALLY OBTAINED CULTURE + GRAM [id number] 09:25:00 Test Item Value Reference Range Comments CULTURE (BEAKER) (test METHICILLIN RESISTANT <1+ Methicillin jhfh=5668) STAPHYLOCOCCUS AUREUS resistant Staphylococcus aureus Clindamycin (test code=10) Erythromycin (test code=4) Linezolid (test code=40) Oxacillin (test code=14) Rifampin (test code=43) Tetracycline (test code=2) Trimethoprim + Sulfamethoxazole (test code=47) Vancomycin (test code=13) CULTURE (BEAKER) (test METHICILLIN RESISTANT <1+ Methicillin otrc=81638) STAPHYLOCOCCUS AUREUS resistant Staphylococcus aureusof a second type Clindamycin (test code=10) Erythromycin (test code=4) Linezolid (test code=40) Oxacillin (test code=14) Rifampin (test code=43) Tetracycline (test code=2) Trimethoprim + Sulfamethoxazole (test code=47) Vancomycin (test code=13) GRAM STAIN RESULT No White blood cells (BEAKER) (test aizg=6670) seen GRAM STAIN RESULT No organisms seen (BEAKER) (test xzjh=983248) POCT-GLUCOSE [id number] 08:39:00 Test Item Value Reference Range Comments POC-GLUCOSE METER (BEAKER) 129 mg/dL 70-110 TESTED AT [facility] [address] [facility] (test nqml=9616) [facility] [address] CBC W/PLT COUNT & AUTO [id number] 06:51:00 Test Item Value Reference Range Comments WHITE BLOOD CELL COUNT (BEAKER) (test bzze=709) 17.4 K/ L 4.0-10.0 RED BLOOD CELL COUNT (BEAKER) (test cqoj=666) 2.99 M/ L 4.20-5.80 HEMOGLOBIN (BEAKER) (test kgnn=010) 8.9 GM/DL 13.0-16.8 HEMATOCRIT (BEAKER) (test fqin=255) 27.1 % 40.0-50.0 MEAN CORPUSCULAR VOLUME (BEAKER) (test rjgn=924) 90.6 fL 82.0-98.0 MEAN CORPUSCULAR HEMOGLOBIN (BEAKER) (test 29.6 pg 27.0-33.0 irxg=739) MEAN CORPUSCULAR HEMOGLOBIN CONC (BEAKER) (test 32.7 GM/DL 32.0-36.0 qtka=967) RED CELL DISTRIBUTION WIDTH (BEAKER) (test 15.3 % 10.3-14.2 qchs=513) PLATELET COUNT (BEAKER) (test btfa=545) 246 K/CU MM 150-430 MEAN PLATELET VOLUME (BEAKER) (test zylw=154) 6.7 fL 6.5-10.5 NUCLEATED RED BLOOD CELLS (BEAKER) (test 0 /100 WBC 0-0 ojlq=204) NEUTROPHILS RELATIVE PERCENT (BEAKER) (test 83 % wneo=003) LYMPHOCYTES RELATIVE PERCENT (BEAKER) (test 7 % hymv=052) MONOCYTES RELATIVE PERCENT (BEAKER) (test 9 % grcd=986) EOSINOPHILS RELATIVE PERCENT (BEAKER) (test 1 % ugdc=679) BASOPHILS RELATIVE PERCENT (BEAKER) (test 0 % bcga=351) NEUTROPHILS ABSOLUTE COUNT (BEAKER) (test 14.50 K/ L 1.80-8.00 xyhb=830) LYMPHOCYTES ABSOLUTE COUNT (BEAKER) (test 1.19 K/ L 1.48-4.50 ximh=927) MONOCYTES ABSOLUTE COUNT (BEAKER) (test 1.56 K/ L 0.00-1.30 wpgc=806) EOSINOPHILS ABSOLUTE COUNT (BEAKER) (test 0.13 K/ L 0.00-0.50 dzex=068) BASOPHILS ABSOLUTE COUNT (BEAKER) (test 0.03 K/ L 0.00-0.20 ehll=717) 0.00BASIC METABOLIC [id number] 05:44:00 Test Item Value Reference Range Comments SODIUM (BEAKER) (test 139 meq/L 136-145 xoli=058) POTASSIUM (BEAKER) (test 3.7 meq/L 3.5-5.1 coqk=079) CHLORIDE (BEAKER) (test 104 meq/L 98-107 cfrf=418) CO2 (BEAKER) (test 26 meq/L 22-29 fzaj=216) BLOOD UREA NITROGEN 19 mg/dL 7-21 (BEAKER) (test ghzm=142) CREATININE (BEAKER) (test 2.08 mg/dL 0.57-1.25 cgbs=902) GLUCOSE RANDOM (BEAKER) 127 mg/dL 70-105 (test ltwq=784) CALCIUM (BEAKER) (test 7.9 mg/dL 8.4-10.2 dtwv=234) EGFR (BEAKER) (test 33 mL/min/1.73 sq m ESTIMATED GFR IS NOT gloq=9412) ACCURATE CREATININE CLEARANCE IN PREDICTING GLOMERULAR FILTRATION RATE. ESTIMATED GFR IS NOT APPLICABLE FOR DIALYSIS PATIENTS. [id number] 05:42:00 Test Item Value Reference Range Comments PHOSPHORUS (BEAKER) (test ektp=044) 2.3 mg/dL 2.3-4.7 [id number] 05:42:00 Test Item Value Reference Range Comments MAGNESIUM (BEAKER) (test qqbz=867) 1.7 mg/dL 1.6-2.6 CALCIUM, [id number] 05:21:00 Test Item Value Reference Range Comments CALCIUM IONIZED (BEAKER) (test tcru=010) 0.99 mmol/L 1.12-1.27 PH, BLOOD (BEAKER) (test llcq=8815) 7.44 POCT-GLUCOSE [id number] 21:08:00 Test Item Value Reference Range Comments POC-GLUCOSE METER (BEAKER) 184 mg/dL 70-110 TESTED AT [address] (test lxed=4611) [place] [id number] POCT-GLUCOSE [id number] 18:10:00 Test Item Value Reference Range Comments POC-GLUCOSE METER (BEAKER) 214 mg/dL 70-110 TESTED AT [address] (test jugy=5982) [place] [id number] POCT-GLUCOSE [id number] 18:04:00 Test Item Value Reference Range Comments POC-GLUCOSE METER (BEAKER) 169 mg/dL 70-110 TESTED AT [address] (test lyxy=4783) [place] [id number] POCT-GLUCOSE [id number] 11:49:00 Test Item Value Reference Range Comments POC-GLUCOSE METER (BEAKER) 126 mg/dL 70-110 TESTED AT [address] (test oglr=1808) [place] [id number] POCT-GLUCOSE [id number] 08:17:00 Test Item Value Reference Range Comments POC-GLUCOSE METER (BEAKER) 119 mg/dL 70-110 TESTED AT [address] (test viwl=2332) [facility] [address] VANCOMYCIN LEVEL, [id number] 06:32:00 Test Item Value Reference Range Comments VANCOMYCIN RANDOM (BEAKER) (test kiaw=256) 13.8 ug/mL Reference Range: No NormalsPOCT-GLUCOSE [id number] 05:54:00 Test Item Value Reference Range Comments POC-GLUCOSE METER (BEAKER) 122 mg/dL 70-110 TESTED AT [address] (test pbft=0552) [facility] [address] B-TYPE NATRIURETIC FACTOR (BNP)2016-12-14 03:44:00 Test Item Value Reference Range Comments B-TYPE NATRIURETIC PEPTIDE (BEAKER) (test 883 pg/mL 0-100 dvhd=524) BASIC METABOLIC [id number] 03:40:00 Test Item Value Reference Range Comments SODIUM (BEAKER) (test 140 meq/L 136-145 geyj=479) POTASSIUM (BEAKER) (test 4.5 meq/L 3.5-5.1 qahw=185) CHLORIDE (BEAKER) (test 109 meq/L 98-107 eyfd=693) CO2 (BEAKER) (test 23 meq/L 22-29 zkvu=879) BLOOD UREA NITROGEN 21 mg/dL 7-21 (BEAKER) (test vofo=555) CREATININE (BEAKER) (test 2.96 mg/dL 0.57-1.25 vifz=475) GLUCOSE RANDOM (BEAKER) 118 mg/dL 70-105 (test ixce=681) CALCIUM (BEAKER) (test 7.5 mg/dL 8.4-10.2 ysio=942) EGFR (BEAKER) (test 22 mL/min/1.73 sq m ESTIMATED GFR IS NOT uoei=7402) ACCURATE CREATININE CLEARANCE IN PREDICTING GLOMERULAR FILTRATION RATE. ESTIMATED GFR IS NOT APPLICABLE FOR DIALYSIS PATIENTS. [id number] 03:37:00 Test Item Value Reference Range Comments PHOSPHORUS (BEAKER) (test ivjs=640) 4.6 mg/dL 2.3-4.7 [id number] 03:37:00 Test Item Value Reference Range Comments MAGNESIUM (BEAKER) (test ftll=181) 1.7 mg/dL 1.6-2.6 CBC W/PLT COUNT & AUTO [id number] 03:36:00 Test Item Value Reference Range Comments WHITE BLOOD CELL COUNT (BEAKER) (test rhft=918) 23.8 K/ L 4.0-10.0 RED BLOOD CELL COUNT (BEAKER) (test qkpl=730) 2.80 M/ L 4.20-5.80 HEMOGLOBIN (BEAKER) (test uwoq=355) 8.3 GM/DL 13.0-16.8 HEMATOCRIT (BEAKER) (test lrac=981) 25.7 % 40.0-50.0 MEAN CORPUSCULAR VOLUME (BEAKER) (test lmcu=672) 91.8 fL 82.0-98.0 MEAN CORPUSCULAR HEMOGLOBIN (BEAKER) (test 29.6 pg 27.0-33.0 wzoh=030) MEAN CORPUSCULAR HEMOGLOBIN CONC (BEAKER) (test 32.2 GM/DL 32.0-36.0 urkd=147) RED CELL DISTRIBUTION WIDTH (BEAKER) (test 14.8 % 10.3-14.2 xpqi=484) PLATELET COUNT (BEAKER) (test soyj=160) 261 K/CU MM 150-430 MEAN PLATELET VOLUME (BEAKER) (test aoul=762) 6.4 fL 6.5-10.5 NUCLEATED RED BLOOD CELLS (BEAKER) (test 0 /100 WBC 0-0 zpla=334) NEUTROPHILS RELATIVE PERCENT (BEAKER) (test 88 % xlav=126) LYMPHOCYTES RELATIVE PERCENT (BEAKER) (test 6 % xbuu=765) MONOCYTES RELATIVE PERCENT (BEAKER) (test 6 % ilsv=236) EOSINOPHILS RELATIVE PERCENT (BEAKER) (test 0 % ywzv=130) BASOPHILS RELATIVE PERCENT (BEAKER) (test 0 % xbzy=354) NEUTROPHILS ABSOLUTE COUNT (BEAKER) (test 21.00 K/ L 1.80-8.00 gmck=186) LYMPHOCYTES ABSOLUTE COUNT (BEAKER) (test 1.16 K/ L 1.48-4.50 vakn=519) MONOCYTES ABSOLUTE COUNT (BEAKER) (test 1.53 K/ L 0.00-1.30 gnvs=461) EOSINOPHILS ABSOLUTE COUNT (BEAKER) (test 0.08 K/ L 0.00-0.50 qwdf=852) BASOPHILS ABSOLUTE COUNT (BEAKER) (test 0.03 K/ L 0.00-0.20 rsij=259) 0.00CALCIUM, [id number] 03:20:00 Test Item Value Reference Range Comments CALCIUM IONIZED (BEAKER) (test nkof=067) 1.02 mmol/L 1.12-1.27 PH, BLOOD (BEAKER) (test usjw=1341) 7.44 POCT-GLUCOSE [id number] 23:20:00 Test Item Value Reference Range Comments POC-GLUCOSE METER (BEAKER) 129 mg/dL 70-110 TESTED AT [facility] [address] [facility] (test twsg=3522) [facility] [address] POCT-GLUCOSE [id number] 16:47:00 Test Item Value Reference Range Comments POC-GLUCOSE METER (BEAKER) 120 mg/dL 70-110 TESTED AT [facility] [address] (test ujfu=7834) [place] [address] SPIN/CONCENTRATION [id number] 13:52:00 Test Item Value Reference Range Comments CONCENTRATION CHARGED (BEAKER) (test zboo=3077) Done SPIN/CONCENTRATION [id number] 13:52:00 Test Item Value Reference Range Comments CONCENTRATION CHARGED (BEAKER) (test phbg=2348) Done BLOOD GAS, [id number] 08:32:00 Test Item Value Reference Range Comments PH ARTERIAL (BEAKER) (test ytul=112) 7.41 7.35-7.45 PCO2 ARTERIAL (BEAKER) (test bxpr=320) 45 mmHg 35-45 PO2 ARTERIAL (BEAKER) (test ccqf=235) 137 mmHg 80-90 O2 SATURATION ARTERIAL (BEAKER) (test skja=955) 98.7 % 96.0-97.0 HCO3 ARTERIAL (BEAKER) (test dpwc=553) 28 mmol/L 21-29 BASE EXCESS ARTERIAL (BEAKER) (test levx=405) 2.8 mmol/L -2.0-3.0 PATIENT TEMPERATURE (BEAKER) (test zndl=9236) 37.0 C FIO2 (BEAKER) (test hekj=0764) 40.0 % CBC W/PLT COUNT & AUTO [id number] 08:04:00 Test Item Value Reference Range Comments WHITE BLOOD CELL COUNT (BEAKER) (test nkci=781) 23.6 K/ L 4.0-10.0 RED BLOOD CELL COUNT (BEAKER) (test hosi=521) 3.04 M/ L 4.20-5.80 HEMOGLOBIN (BEAKER) (test vaed=625) 8.9 GM/DL 13.0-16.8 HEMATOCRIT (BEAKER) (test eint=035) 26.9 % 40.0-50.0 MEAN CORPUSCULAR VOLUME (BEAKER) (test pztm=862) 88.6 fL 82.0-98.0 MEAN CORPUSCULAR HEMOGLOBIN (BEAKER) (test 29.4 pg 27.0-33.0 rxdf=109) MEAN CORPUSCULAR HEMOGLOBIN CONC (BEAKER) (test 33.2 GM/DL 32.0-36.0 xpyz=130) RED CELL DISTRIBUTION WIDTH (BEAKER) (test 15.4 % 10.3-14.2 jjkh=306) PLATELET COUNT (BEAKER) (test ndux=579) 291 K/CU MM 150-430 MEAN PLATELET VOLUME (BEAKER) (test esvj=854) 6.9 fL 6.5-10.5 NUCLEATED RED BLOOD CELLS (BEAKER) (test 0 /100 WBC 0-0 mask=144) NEUTROPHILS RELATIVE PERCENT (BEAKER) (test 89 % dgqb=084) LYMPHOCYTES RELATIVE PERCENT (BEAKER) (test 5 % hzxw=817) MONOCYTES RELATIVE PERCENT (BEAKER) (test 6 % mupg=012) EOSINOPHILS RELATIVE PERCENT (BEAKER) (test 0 % mwaz=405) BASOPHILS RELATIVE PERCENT (BEAKER) (test 0 % ljwu=006) NEUTROPHILS ABSOLUTE COUNT (BEAKER) (test 21.00 K/ L 1.80-8.00 lxjl=539) LYMPHOCYTES ABSOLUTE COUNT (BEAKER) (test 1.17 K/ L 1.48-4.50 aztb=613) MONOCYTES ABSOLUTE COUNT (BEAKER) (test 1.37 K/ L 0.00-1.30 psoe=161) EOSINOPHILS ABSOLUTE COUNT (BEAKER) (test 0.04 K/ L 0.00-0.50 tofq=134) BASOPHILS ABSOLUTE COUNT (BEAKER) (test 0.02 K/ L 0.00-0.20 tvpw=386) 0.00(MANUAL DIFFERENTIAL)2016-12-13 08:04:00 Test Item Value Reference Range Comments TOTAL COUNTED (BEAKER) (test kgmb=9014) WBC MORPHOLOGY (BEAKER) (test twnp=609) Normal PLT MORPHOLOGY (BEAKER) (test jyfv=001) Normal HYPOCHROMIA (BEAKER) (test tpwk=958) 1+ few POCT-GLUCOSE [id number] 07:23:00 Test Item Value Reference Range Comments POC-GLUCOSE METER (BEAKER) 116 mg/dL 70-110 TESTED AT [address] (test tdij=2471) [facility] [address] POCT-GLUCOSE [id number] 06:31:00 Test Item Value Reference Range Comments POC-GLUCOSE METER (BEAKER) 115 mg/dL 70-110 TESTED AT [address] (test ntut=4071) [facility] [address] CALCIUM, [id number] 05:09:00 Test Item Value Reference Range Comments CALCIUM IONIZED (BEAKER) (test xfpd=325) 1.06 mmol/L 1.12-1.27 PH, BLOOD (BEAKER) (test ovso=1749) 7.46 BASIC METABOLIC [id number] 04:49:00 Test Item Value Reference Range Comments SODIUM (BEAKER) (test 139 meq/L 136-145 bokz=282) POTASSIUM (BEAKER) (test 4.5 meq/L 3.5-5.1 dwot=431) CHLORIDE (BEAKER) (test 106 meq/L 98-107 xoxe=791) CO2 (BEAKER) (test 26 meq/L 22-29 xvqo=980) BLOOD UREA NITROGEN 14 mg/dL 7-21 (BEAKER) (test dvqj=424) CREATININE (BEAKER) (test 2.20 mg/dL 0.57-1.25 aaoc=935) GLUCOSE RANDOM (BEAKER) 138 mg/dL 70-105 (test aylr=076) CALCIUM (BEAKER) (test 7.8 mg/dL 8.4-10.2 gnwd=674) EGFR (BEAKER) (test 31 mL/min/1.73 sq m ESTIMATED GFR IS NOT arey=6922) ACCURATE CREATININE CLEARANCE IN PREDICTING GLOMERULAR FILTRATION RATE. ESTIMATED GFR IS NOT APPLICABLE FOR DIALYSIS PATIENTS. [id number] 04:47:00 Test Item Value Reference Range Comments PHOSPHORUS (BEAKER) (test sdrr=643) 3.8 mg/dL 2.3-4.7 [id number] 04:47:00 Test Item Value Reference Range Comments MAGNESIUM (BEAKER) (test qrnv=314) 1.6 mg/dL 1.6-2.6 POCT-GLUCOSE [id number] 00:17:00 Test Item Value Reference Range Comments POC-GLUCOSE METER (BEAKER) 165 mg/dL 70-110 TESTED AT [place] [id number] [facility] (test bxga=8379) [facility] [address] POCT-GLUCOSE [id number] 19:50:00 Test Item Value Reference Range Comments POC-GLUCOSE METER (BEAKER) 150 mg/dL 70-110 TESTED AT [address] (test ncvm=0257) [facility] [address] GLUCOSE-STAT [id number] 16:40:00 Test Item Value Reference Range Comments GLUCOSE RANDOM (BEAKER) (test qmha=513) 93 mg/dL 70-110 SODIUM NA-STAT [id number] 16:40:00 Test Item Value Reference Range Comments SODIUM (BEAKER) (test qxrp=653) 136 meq/L 135-148 POTASSIUM-STAT [id number] 16:40:00 Test Item Value Reference Range Comments POTASSIUM (BEAKER) (test jqkd=055) 3.8 meq/L 3.6-5.5 BLOOD GAS, [id number] 16:40:00 Test Item Value Reference Range Comments PH ARTERIAL (BEAKER) (test psgu=309) 7.45 7.35-7.45 PCO2 ARTERIAL (BEAKER) (test qhiw=347) 46 mmHg 35-45 PO2 ARTERIAL (BEAKER) (test ffcl=590) 371 mmHg 80-90 O2 SATURATION ARTERIAL (BEAKER) (test hbic=601) 99.8 % 96.0-97.0 HCO3 ARTERIAL (BEAKER) (test ujcb=729) 31 mmol/L 21-29 BASE EXCESS ARTERIAL (BEAKER) (test lbep=497) 6.0 mmol/L -2.0-3.0 PATIENT TEMPERATURE (BEAKER) (test stch=5647) 37.0 C FIO2 (BEAKER) (test lnyd=9773) 60.0 % HGB/HCT (H&H) - STAT [id number] 16:40:00 Test Item Value Reference Range Comments HEMOGLOBIN (BEAKER) (test azjq=252) 6.3 g/dL 13.0-16.8 HEMATOCRIT (BEAKER) (test bcvl=620) 19.0 % 40.0-50.0 GLUCOSE-STAT [id number] 16:14:00 Test Item Value Reference Range Comments GLUCOSE RANDOM (BEAKER) (test aios=672) 89 mg/dL 70-110 [id number] 13:22:00 Test Item Value Reference Range Comments PARTIAL THROMBOPLASTIN TIME (BEAKER) (test 80.1 seconds 22.5-36.0 wzeq=946) POCT-GLUCOSE [id number] 11:57:00 Test Item Value Reference Range Comments POC-GLUCOSE METER (BEAKER) 82 mg/dL 70-110 TESTED AT [address] (test jhfg=6573) [facility] [address] POCT-GLUCOSE [id number] 08:15:00 Test Item Value Reference Range Comments POC-GLUCOSE METER (BEAKER) 90 mg/dL 70-110 TESTED AT [place] [id number] [facility] (test bkph=7443) [facility] [address] CBC W/PLT COUNT & AUTO [id number] 05:50:00 Test Item Value Reference Range Comments WHITE BLOOD CELL COUNT (BEAKER) (test uslg=753) 13.9 K/ L 4.0-10.0 RED BLOOD CELL COUNT (BEAKER) (test hxcm=223) 2.42 M/ L 4.20-5.80 HEMOGLOBIN (BEAKER) (test jlec=712) 7.2 GM/DL 13.0-16.8 HEMATOCRIT (BEAKER) (test uglo=292) 21.8 % 40.0-50.0 MEAN CORPUSCULAR VOLUME (BEAKER) (test umxv=545) 90.3 fL 82.0-98.0 MEAN CORPUSCULAR HEMOGLOBIN (BEAKER) (test 29.5 pg 27.0-33.0 scdq=787) MEAN CORPUSCULAR HEMOGLOBIN CONC (BEAKER) (test 32.7 GM/DL 32.0-36.0 huez=779) RED CELL DISTRIBUTION WIDTH (BEAKER) (test 15.9 % 10.3-14.2 fcxl=237) PLATELET COUNT (BEAKER) (test rpzs=229) 282 K/CU MM 150-430 MEAN PLATELET VOLUME (BEAKER) (test yuai=181) 6.8 fL 6.5-10.5 NUCLEATED RED BLOOD CELLS (BEAKER) (test 0 /100 WBC 0-0 xdmo=825) NEUTROPHILS RELATIVE PERCENT (BEAKER) (test 78 % dntr=308) LYMPHOCYTES RELATIVE PERCENT (BEAKER) (test 11 % ysnp=389) MONOCYTES RELATIVE PERCENT (BEAKER) (test 9 % jdhp=693) EOSINOPHILS RELATIVE PERCENT (BEAKER) (test 1 % pvzo=638) BASOPHILS RELATIVE PERCENT (BEAKER) (test 0 % jmzy=560) NEUTROPHILS ABSOLUTE COUNT (BEAKER) (test 10.80 K/ L 1.80-8.00 gjzz=909) LYMPHOCYTES ABSOLUTE COUNT (BEAKER) (test 1.57 K/ L 1.48-4.50 ivhk=002) MONOCYTES ABSOLUTE COUNT (BEAKER) (test 1.30 K/ L 0.00-1.30 wpph=140) EOSINOPHILS ABSOLUTE COUNT (BEAKER) (test 0.20 K/ L 0.00-0.50 vehd=629) BASOPHILS ABSOLUTE COUNT (BEAKER) (test 0.04 K/ L 0.00-0.20 ymtd=702) 0.00CALCIUM, [id number] 05:43:00 Test Item Value Reference Range Comments CALCIUM IONIZED (BEAKER) (test fapl=968) 0.97 mmol/L 1.12-1.27 PH, BLOOD (BEAKER) (test cuyb=5034) 7.51 BASIC METABOLIC [id number] 05:35:00 Test Item Value Reference Range Comments SODIUM (BEAKER) (test 132 meq/L 136-145 chsb=302) POTASSIUM (BEAKER) (test 4.2 meq/L 3.5-5.1 hyoq=178) CHLORIDE (BEAKER) (test 102 meq/L 98-107 zyil=880) CO2 (BEAKER) (test 22 meq/L 22-29 juit=180) BLOOD UREA NITROGEN 26 mg/dL 7-21 (BEAKER) (test bymc=301) CREATININE (BEAKER) (test 3.57 mg/dL 0.57-1.25 ogyb=119) GLUCOSE RANDOM (BEAKER) 69 mg/dL 70-105 (test pegy=656) CALCIUM (BEAKER) (test 7.6 mg/dL 8.4-10.2 dfcj=233) EGFR (BEAKER) (test 18 mL/min/1.73 sq m ESTIMATED GFR IS NOT essl=6790) ACCURATE CREATININE CLEARANCE IN PREDICTING GLOMERULAR FILTRATION RATE. ESTIMATED GFR IS NOT APPLICABLE FOR DIALYSIS PATIENTS. [id number] 05:31:00 Test Item Value Reference Range Comments PHOSPHORUS (BEAKER) (test miov=339) 3.7 mg/dL 2.3-4.7 [id number] 05:31:00 Test Item Value Reference Range Comments MAGNESIUM (BEAKER) (test ejvo=610) 1.8 mg/dL 1.6-2.6 [id number] 05:30:00 Test Item Value Reference Range Comments PARTIAL THROMBOPLASTIN TIME (BEAKER) (test 44.4 seconds 22.5-36.0 keze=612) PROTHROMBIN [id number] 05:29:00 Test Item Value Reference Range Comments PROTIME (BEAKER) (test nynx=110) 14.5 seconds 11.7-14.7 INR (BEAKER) (test jrhl=326) 1.1 <=5.9 RECOMMENDED COUMADIN/WARFARIN INR THERAPY RANGESSTANDARD DOSE: 2.0 - 3.0 Includes: PROPHYLAXIS forvenous thrombosis, systemic embolization; TREATMENT for venous thrombosis and/or pulmonary embolus.HIGH RISK: Target INR is 2.5-3.5 for patients with mechanical heart valves.POCT-GLUCOSE [id number] 22:10:00 Test Item Value Reference Range Comments POC-GLUCOSE METER (BEAKER) 106 mg/dL 70-110 TESTED AT [address] (test hqht=4615) [place] [address] POCT-GLUCOSE [id number] 17:31:00 Test Item Value Reference Range Comments POC-GLUCOSE METER (BEAKER) 114 mg/dL 70-110 TESTED AT [address] (test ovyb=0851) [place] [address] [id number] 15:36:00 Test Item Value Reference Range Comments PARTIAL THROMBOPLASTIN TIME (BEAKER) (test 38.5 seconds 22.5-36.0 gopu=555) PROTHROMBIN [id number] 15:35:00 Test Item Value Reference Range Comments PROTIME (BEAKER) (test yqhg=048) 14.6 seconds 11.7-14.7 INR (BEAKER) (test yiph=253) 1.2 <=5.9 RECOMMENDED COUMADIN/WARFARIN INR THERAPY RANGESSTANDARD DOSE: 2.0 - 3.0 Includes: PROPHYLAXIS forvenous thrombosis, systemic embolization; TREATMENT for venous thrombosis and/or pulmonary embolus.HIGH RISK: Target INR is 2.5-3.5 for patients with mechanical heart valves.POCT-GLUCOSE [id number] 12:12:00 Test Item Value Reference Range Comments POC-GLUCOSE METER (BEAKER) 130 mg/dL 70-110 TESTED AT [address] (test agpf=9686) [place] [id number] POCT-GLUCOSE [id number] 08:04:00 Test Item Value Reference Range Comments POC-GLUCOSE METER (BEAKER) 96 mg/dL 70-110 TESTED AT [address] (test xkas=3307) [facility] [address] VANCOMYCIN LEVEL, [id number] 07:30:00 Test Item Value Reference Range Comments VANCOMYCIN RANDOM (BEAKER) (test yuiv=409) 21.2 ug/mL Reference Range: No NormalsPOCT-GLUCOSE [id number] 20:25:00 Test Item Value Reference Range Comments POC-GLUCOSE METER (BEAKER) 152 mg/dL 70-110 TESTED AT [address] (test hkle=0002) [place] [id number] POCT-GLUCOSE [id number] 17:23:00 Test Item Value Reference Range Comments POC-GLUCOSE METER (BEAKER) 161 mg/dL 70-110 TESTED AT [address] (test chzk=7679) [place] [id number] [id number] 13:34:00 Test Item Value Reference Range Comments PROTIME (BEAKER) (test npjt=975) 15.4 seconds 11.7-14.7 INR (BEAKER) (test igdx=662) 1.2 <=5.9 PARTIAL THROMBOPLASTIN TIME (BEAKER) (test 51.5 seconds 22.5-36.0 gafh=385) RECOMMENDED COUMADIN/WARFARIN INR THERAPY RANGESSTANDARD DOSE: 2.0 - 3.0 Includes: PROPHYLAXIS forvenous thrombosis, systemic embolization; TREATMENT for venous thrombosis and/or pulmonary embolus.HIGH RISK: Target INR is 2.5-3.5 for patients with mechanical heart valves.POCT-GLUCOSE [id number] 12:11:00 Test Item Value Reference Range Comments POC-GLUCOSE METER (BEAKER) 140 mg/dL 70-110 TESTED AT [address] (test ishm=9533) [place] [id number] CBC W/PLT COUNT & AUTO [id number] 08:02:00 Test Item Value Reference Range Comments WHITE BLOOD CELL COUNT (BEAKER) (test bkib=700) 14.8 K/ L 4.0-10.0 RED BLOOD CELL COUNT (BEAKER) (test zumd=051) 2.40 M/ L 4.20-5.80 HEMOGLOBIN (BEAKER) (test fyoi=874) 7.0 GM/DL 13.0-16.8 HEMATOCRIT (BEAKER) (test oknz=572) 21.6 % 40.0-50.0 MEAN CORPUSCULAR VOLUME (BEAKER) (test iteo=977) 90.0 fL 82.0-98.0 MEAN CORPUSCULAR HEMOGLOBIN (BEAKER) (test 29.2 pg 27.0-33.0 qqrw=915) MEAN CORPUSCULAR HEMOGLOBIN CONC (BEAKER) (test 32.5 GM/DL 32.0-36.0 wzdt=016) RED CELL DISTRIBUTION WIDTH (BEAKER) (test 15.8 % 10.3-14.2 vxbi=310) PLATELET COUNT (BEAKER) (test tqyp=651) 276 K/CU MM 150-430 MEAN PLATELET VOLUME (BEAKER) (test jmsr=890) 6.8 fL 6.5-10.5 NUCLEATED RED BLOOD CELLS (BEAKER) (test 0 /100 WBC 0-0 yamu=813) NEUTROPHILS RELATIVE PERCENT (BEAKER) (test 80 % fjky=637) LYMPHOCYTES RELATIVE PERCENT (BEAKER) (test 10 % oahg=862) MONOCYTES RELATIVE PERCENT (BEAKER) (test 9 % juxr=559) EOSINOPHILS RELATIVE PERCENT (BEAKER) (test 1 % vksg=671) BASOPHILS RELATIVE PERCENT (BEAKER) (test 0 % tiru=089) NEUTROPHILS ABSOLUTE COUNT (BEAKER) (test 11.80 K/ L 1.80-8.00 tgya=332) LYMPHOCYTES ABSOLUTE COUNT (BEAKER) (test 1.49 K/ L 1.48-4.50 vqcn=756) MONOCYTES ABSOLUTE COUNT (BEAKER) (test 1.28 K/ L 0.00-1.30 vbvo=220) EOSINOPHILS ABSOLUTE COUNT (BEAKER) (test 0.17 K/ L 0.00-0.50 jdug=812) BASOPHILS ABSOLUTE COUNT (BEAKER) (test 0.04 K/ L 0.00-0.20 yhlz=800) 0.00VANCOMYCIN LEVEL, [id number] 07:43:00 Test Item Value Reference Range Comments VANCOMYCIN RANDOM (BEAKER) (test xafl=336) 31.1 ug/mL Reference Range: No NormalsBASIC METABOLIC [id number] 07:30:00 Test Item Value Reference Range Comments SODIUM (BEAKER) (test 134 meq/L 136-145 xzha=202) POTASSIUM (BEAKER) (test 3.6 meq/L 3.5-5.1 yvjr=681) CHLORIDE (BEAKER) (test 100 meq/L 98-107 lyif=795) CO2 (BEAKER) (test 27 meq/L 22-29 izls=231) BLOOD UREA NITROGEN 12 mg/dL 7-21 (BEAKER) (test ymfx=578) CREATININE (BEAKER) (test 1.88 mg/dL 0.57-1.25 npwz=134) GLUCOSE RANDOM (BEAKER) 109 mg/dL 70-105 (test gbwj=420) CALCIUM (BEAKER) (test 7.7 mg/dL 8.4-10.2 aaqo=380) EGFR (BEAKER) (test 37 mL/min/1.73 sq m ESTIMATED GFR IS NOT wqbl=6335) ACCURATE CREATININE CLEARANCE IN PREDICTING GLOMERULAR FILTRATION RATE. ESTIMATED GFR IS NOT APPLICABLE FOR DIALYSIS PATIENTS. [id number] 07:25:00 Test Item Value Reference Range Comments PHOSPHORUS (BEAKER) (test kreo=678) 2.9 mg/dL 2.3-4.7 [id number] 07:25:00 Test Item Value Reference Range Comments MAGNESIUM (BEAKER) (test maqs=485) 1.3 mg/dL 1.6-2.6 POCT-GLUCOSE [id number] 07:18:00 Test Item Value Reference Range Comments POC-GLUCOSE METER (BEAKER) 107 mg/dL 70-110 TESTED AT [facility] [address] [facility] (test byhn=7597) [facility] [address] CALCIUM, [id number] 06:57:00 Test Item Value Reference Range Comments CALCIUM IONIZED (BEAKER) (test gpwa=234) 1.04 mmol/L 1.12-1.27 PH, BLOOD (BEAKER) (test ztwx=1799) 7.44 BLOOD [id number] 17:00:00 Test Item Value Reference Range Comments CULTURE (BEAKER) (test svwf=4370) No growth in 5 days BLOOD [id number] 17:00:00 Test Item Value Reference Range Comments CULTURE (BEAKER) (test ujjt=2629) No growth in 5 days POCT-GLUCOSE [id number] 12:01:00 Test Item Value Reference Range Comments POC-GLUCOSE METER (BEAKER) 128 mg/dL 70-110 TESTED AT [facility] [address] [facility] (test zbse=5321) [facility] [address] POCT-GLUCOSE [id number] 07:48:00 Test Item Value Reference Range Comments POC-GLUCOSE METER (BEAKER) 100 mg/dL 70-110 TESTED AT [place] [id number] [facility] (test tpeu=3869) [facility] [address] VANCOMYCIN LEVEL, [id number] 05:36:00 Test Item Value Reference Range Comments VANCOMYCIN RANDOM (BEAKER) (test vwoc=594) 26.8 ug/mL Reference Range: No NormalsSPUTUM CULTURE + GRAM [id number] 00:09:00 Test Item Value Reference Range Comments CULTURE (BEAKER) (test Oropharyngeal contamination, zrng=7775) specimen rejected. Recollect requested. GRAM STAIN RESULT (BEAKER) No WBCs (test mxfz=4444) GRAM STAIN RESULT (BEAKER) >25 epithelial cells (test ejpa=39300) GRAM STAIN RESULT (BEAKER) 4+ gram positive rods (test bkpq=58456) GRAM STAIN RESULT (BEAKER) 4+ gram positive cocci in pairs (test rito=204973) GRAM STAIN RESULT (BEAKER) 4+ budding yeast (test pgew=184801) POCT-GLUCOSE [id number] 20:17:00 Test Item Value Reference Range Comments POC-GLUCOSE METER (BEAKER) 111 mg/dL 70-110 TESTED AT [facility] [address] [facility] (test euft=3324) [facility] [address] TSH/FREE T4 IF [id number] 18:39:00 Test Item Value Reference Range Comments THYROID STIMULATING HORMONE (BEAKER) (test 3.14 uIU/mL 0.35-4.94 pftk=060) VITAMIN B12 AND [id number] 18:39:00 Test Item Value Reference Range Comments VITAMIN B12 (BEAKER) (test zcgx=196) 1407 pg/mL 213-816 FOLATE (BEAKER) (test nfat=004) 16.4 ng/mL >=7.0 Effective 09/08/2014: Folate Reference Range ChangeNew: >=7.0 Previous: & gt;=[id number] 18:12:00 Test Item Value Reference Range Comments CALCIUM (BEAKER) (test yqqq=190) 8.2 mg/dL 8.4-10.2 PROTHROMBIN [id number] 18:07:00 Test Item Value Reference Range Comments PROTIME (BEAKER) (test bjqs=617) 15.5 seconds 11.7-14.7 INR (BEAKER) (test hpfc=831) 1.2 <=5.9 RECOMMENDED COUMADIN/WARFARIN INR THERAPY RANGESSTANDARD DOSE: 2.0 - 3.0 Includes: PROPHYLAXIS forvenous thrombosis, systemic embolization; TREATMENT for venous thrombosis and/or pulmonary embolus.HIGH RISK: Target INR is 2.5-3.5 for patients with mechanical heart valves.[id number] 18:06:00 Test Item Value Reference Range Comments PHOSPHORUS (BEAKER) (test hwwp=829) 3.4 mg/dL 2.3-4.7 [id number] 18:06:00 Test Item Value Reference Range Comments MAGNESIUM (BEAKER) (test crnv=185) 1.5 mg/dL 1.6-2.6 HEPATIC FUNCTION [id number] 18:06:00 Test Item Value Reference Range Comments TOTAL PROTEIN (BEAKER) (test zgfe=752) 5.9 gm/dL 6.0-8.3 ALBUMIN (BEAKER) (test wgsx=9121) 2.3 g/dL 3.5-5.0 BILIRUBIN TOTAL (BEAKER) (test vulr=481) 0.4 mg/dL 0.2-1.2 BILIRUBIN DIRECT (BEAKER) (test aenc=922) 0.2 mg/dL 0.1-0.5 ALKALINE PHOSPHATASE (BEAKER) (test idwl=861) 118 U/L 40-150 AST (SGOT) (BEAKER) (test irdh=114) 11 U/L 5-34 ALT (SGPT) (BEAKER) (test royr=304) 7 U/L 6-55 [id number] 17:57:00 Test Item Value Reference Range Comments AMMONIA (BEAKER) (test mqzo=205) 23 mol/L 18-72 POCT-GLUCOSE [id number] 17:55:00 Test Item Value Reference Range Comments POC-GLUCOSE METER (BEAKER) 137 mg/dL 70-110 TESTED AT [address] (test pvks=8357) [facility] [address] POCT-GLUCOSE [id number] 17:01:00 Test Item Value Reference Range Comments POC-GLUCOSE METER (BEAKER) 62 mg/dL 70-110 TESTED AT [place] [id number] [facility] (test xkqk=6783) [facility] [address] [id number] 15:09:00 Test Item Value Reference Range Comments SODIUM (BEAKER) (test awah=438) 138 meq/L 136-145 POTASSIUM (BEAKER) (test 4.0 meq/L 3.5-5.1 Specimen slightly hemolyzed jwpa=102) CHLORIDE (BEAKER) (test 105 meq/L 98-107 pjvd=753) CO2 (BEAKER) (test abhg=417) 23 meq/L 22-29 BLOOD GAS, [id number] 14:56:00 Test Item Value Reference Range Comments PH ARTERIAL (BEAKER) (test kcpy=547) 7.53 7.35-7.45 PCO2 ARTERIAL (BEAKER) (test sskt=048) 35 mmHg 35-45 PO2 ARTERIAL (BEAKER) (test ovfh=779) 70 mmHg 80-90 O2 SATURATION ARTERIAL (BEAKER) (test drun=958) 95.5 % 96.0-97.0 HCO3 ARTERIAL (BEAKER) (test rzmp=081) 28 mmol/L 21-29 BASE EXCESS ARTERIAL (BEAKER) (test oqwj=573) 5.2 mmol/L -2.0-3.0 PATIENT TEMPERATURE (BEAKER) (test yucg=2314) 37.3 C FIO2 (BEAKER) (test qxoa=2007) 21.0 % CBC W/PLT COUNT & AUTO [id number] 14:56:00 Test Item Value Reference Range Comments WHITE BLOOD CELL COUNT (BEAKER) (test irhd=434) 18.1 K/ L 4.0-10.0 RED BLOOD CELL COUNT (BEAKER) (test qqgn=271) 2.43 M/ L 4.20-5.80 HEMOGLOBIN (BEAKER) (test snxo=619) 7.3 GM/DL 13.0-16.8 HEMATOCRIT (BEAKER) (test lilr=411) 22.2 % 40.0-50.0 MEAN CORPUSCULAR VOLUME (BEAKER) (test pvsb=984) 91.7 fL 82.0-98.0 MEAN CORPUSCULAR HEMOGLOBIN (BEAKER) (test 30.0 pg 27.0-33.0 cwkk=669) MEAN CORPUSCULAR HEMOGLOBIN CONC (BEAKER) (test 32.7 GM/DL 32.0-36.0 lftm=337) RED CELL DISTRIBUTION WIDTH (BEAKER) (test 15.7 % 10.3-14.2 iunh=176) PLATELET COUNT (BEAKER) (test eioj=176) 290 K/CU MM 150-430 MEAN PLATELET VOLUME (BEAKER) (test bmuh=137) 6.9 fL 6.5-10.5 NUCLEATED RED BLOOD CELLS (BEAKER) (test 0 /100 WBC 0-0 fzga=070) NEUTROPHILS RELATIVE PERCENT (BEAKER) (test 84 % zsrf=804) LYMPHOCYTES RELATIVE PERCENT (BEAKER) (test 8 % zobn=951) MONOCYTES RELATIVE PERCENT (BEAKER) (test 8 % hato=484) EOSINOPHILS RELATIVE PERCENT (BEAKER) (test 0 % agqi=022) BASOPHILS RELATIVE PERCENT (BEAKER) (test 0 % hbkd=520) NEUTROPHILS ABSOLUTE COUNT (BEAKER) (test 15.10 K/ L 1.80-8.00 dbkm=808) LYMPHOCYTES ABSOLUTE COUNT (BEAKER) (test 1.51 K/ L 1.48-4.50 bknv=483) MONOCYTES ABSOLUTE COUNT (BEAKER) (test 1.43 K/ L 0.00-1.30 vaui=231) EOSINOPHILS ABSOLUTE COUNT (BEAKER) (test 0.03 K/ L 0.00-0.50 afpp=856) BASOPHILS ABSOLUTE COUNT (BEAKER) (test 0.02 K/ L 0.00-0.20 ipeo=283) 0.00POCT-GLUCOSE [id number] 12:19:00 Test Item Value Reference Range Comments POC-GLUCOSE METER (BEAKER) 75 mg/dL 70-110 TESTED AT [facility] [address] [facility] (test gvfg=6008) [facility] [address] [id number] 09:59:00 Test Item Value Reference Range Comments HAPTOGLOBIN (BEAKER) (test ixmx=599) > mg/dL 14- Effective 09/08/2014: Reference Range ChangeNew: 14-258 Previous: 36- 195LACTATE DEHYDROGENASE (LDH)2016-12-08 09:56:00 Test Item Value Reference Range Comments LACTATE DEHYDROGENASE (BEAKER) (test cgpd=748) 234 U/L 125-220 [id number] 09:35:00 Test Item Value Reference Range Comments FIBRINOGEN LEVEL (BEAKER) (test mgog=537) 554 mg/dl 225-434 BASIC METABOLIC [id number] 08:56:00 Test Item Value Reference Range Comments SODIUM (BEAKER) (test 139 meq/L 136-145 karn=602) POTASSIUM (BEAKER) (test 3.0 meq/L 3.5-5.1 vbcz=065) CHLORIDE (BEAKER) (test 114 meq/L 98-107 xvan=663) CO2 (BEAKER) (test 18 meq/L 22-29 elhv=643) BLOOD UREA NITROGEN 14 mg/dL 7-21 (BEAKER) (test kpbs=979) CREATININE (BEAKER) (test 1.68 mg/dL 0.57-1.25 cskj=593) GLUCOSE RANDOM (BEAKER) 65 mg/dL 70-105 (test lbsg=323) CALCIUM (BEAKER) (test 6.3 mg/dL 8.4-10.2 nnek=308) EGFR (BEAKER) (test 42 mL/min/1.73 sq m ESTIMATED GFR IS NOT txuk=9712) ACCURATE CREATININE CLEARANCE IN PREDICTING GLOMERULAR FILTRATION RATE. ESTIMATED GFR IS NOT APPLICABLE FOR DIALYSIS PATIENTS. CBC W/PLT COUNT & AUTO [id number] 08:55:00 Test Item Value Reference Range Comments WHITE BLOOD CELL COUNT (BEAKER) (test nutz=958) 12.8 K/ L 4.0-10.0 RED BLOOD CELL COUNT (BEAKER) (test uyzz=868) 1.79 M/ L 4.20-5.80 HEMOGLOBIN (BEAKER) (test dmiy=994) 5.4 GM/DL 13.0-16.8 HEMATOCRIT (BEAKER) (test ikof=838) 16.7 % 40.0-50.0 MEAN CORPUSCULAR VOLUME (BEAKER) (test vbft=106) 93.5 fL 82.0-98.0 MEAN CORPUSCULAR HEMOGLOBIN (BEAKER) (test 30.2 pg 27.0-33.0 maog=914) MEAN CORPUSCULAR HEMOGLOBIN CONC (BEAKER) (test 32.3 GM/DL 32.0-36.0 cikp=107) RED CELL DISTRIBUTION WIDTH (BEAKER) (test 15.9 % 10.3-14.2 eyic=700) PLATELET COUNT (BEAKER) (test igba=629) 211 K/CU MM 150-430 MEAN PLATELET VOLUME (BEAKER) (test wkth=139) 6.8 fL 6.5-10.5 NUCLEATED RED BLOOD CELLS (BEAKER) (test 0 /100 WBC 0-0 bswn=789) NEUTROPHILS RELATIVE PERCENT (BEAKER) (test 82 % eeos=710) LYMPHOCYTES RELATIVE PERCENT (BEAKER) (test 8 % mewq=005) MONOCYTES RELATIVE PERCENT (BEAKER) (test 9 % fcsl=451) EOSINOPHILS RELATIVE PERCENT (BEAKER) (test 0 % ncxu=595) BASOPHILS RELATIVE PERCENT (BEAKER) (test 0 % bjqn=048) NEUTROPHILS ABSOLUTE COUNT (BEAKER) (test 10.50 K/ L 1.80-8.00 jsgk=806) LYMPHOCYTES ABSOLUTE COUNT (BEAKER) (test 1.08 K/ L 1.48-4.50 oifz=837) MONOCYTES ABSOLUTE COUNT (BEAKER) (test 1.17 K/ L 0.00-1.30 xuig=327) EOSINOPHILS ABSOLUTE COUNT (BEAKER) (test 0.06 K/ L 0.00-0.50 yclc=231) BASOPHILS ABSOLUTE COUNT (BEAKER) (test 0.04 K/ L 0.00-0.20 canx=452) 0.00LACTIC ACID, VENOUS, WHOLE [id number] 08:52:00 Test Item Value Reference Range Comments LACTATE BLOOD VENOUS (2) (BEAKER) (test 0.5 mmol/L 0.5-2.2 sqyx=5414) Effective 02/23/2016: Units/Reference Range ChangeNew: 0.5-2.2 mmol/L Previous: 5 -20 mg/dLPOCT-GLUCOSE [id number] 07:40:00 Test Item Value Reference Range Comments POC-GLUCOSE METER (BEAKER) 80 mg/dL 70-110 TESTED AT [facility] [address] (test iwnv=2765) [facility] [address] POCT-GLUCOSE [id number] 21:47:00 Test Item Value Reference Range Comments POC-GLUCOSE METER (BEAKER) 97 mg/dL 70-110 TESTED AT [address] (test knne=1527) [facility] [address] POCT-GLUCOSE [id number] 17:45:00 Test Item Value Reference Range Comments POC-GLUCOSE METER (BEAKER) 115 mg/dL 70-110 TESTED AT [address] (test zgpq=4035) [facility] [address] POCT-GLUCOSE [id number] 12:56:00 Test Item Value Reference Range Comments POC-GLUCOSE METER (BEAKER) 120 mg/dL 70-110 TESTED AT [address] (test kcpf=4928) [facility] [address] POCT-GLUCOSE [id number] 12:56:00 Test Item Value Reference Range Comments POC-GLUCOSE METER (BEAKER) 107 mg/dL 70-110 TESTED AT [address] (test fdzq=4888) [facility] [address] CBC W/PLT COUNT & AUTO [id number] 11:18:00 Test Item Value Reference Range Comments WHITE BLOOD CELL COUNT (BEAKER) (test xnyu=054) 21.4 K/ L 4.0-10.0 RED BLOOD CELL COUNT (BEAKER) (test osxk=548) 2.63 M/ L 4.20-5.80 HEMOGLOBIN (BEAKER) (test tnai=583) 7.5 GM/DL 13.0-16.8 HEMATOCRIT (BEAKER) (test jigr=982) 24.1 % 40.0-50.0 MEAN CORPUSCULAR VOLUME (BEAKER) (test jgvh=772) 91.8 fL 82.0-98.0 MEAN CORPUSCULAR HEMOGLOBIN (BEAKER) (test 28.6 pg 27.0-33.0 ctwt=602) MEAN CORPUSCULAR HEMOGLOBIN CONC (BEAKER) (test 31.1 GM/DL 32.0-36.0 mcfx=254) RED CELL DISTRIBUTION WIDTH (BEAKER) (test 15.4 % 10.3-14.2 brqn=437) PLATELET COUNT (BEAKER) (test jmzk=283) 297 K/CU MM 150-430 MEAN PLATELET VOLUME (BEAKER) (test zyed=712) 7.0 fL 6.5-10.5 NUCLEATED RED BLOOD CELLS (BEAKER) (test 0 /100 WBC 0-0 sdwf=400) NEUTROPHILS RELATIVE PERCENT (BEAKER) (test 88 % owse=051) LYMPHOCYTES RELATIVE PERCENT (BEAKER) (test 6 % alnv=982) MONOCYTES RELATIVE PERCENT (BEAKER) (test 6 % cbqe=212) EOSINOPHILS RELATIVE PERCENT (BEAKER) (test 0 % vtyp=116) BASOPHILS RELATIVE PERCENT (BEAKER) (test 0 % sypg=808) NEUTROPHILS ABSOLUTE COUNT (BEAKER) (test 18.90 K/ L 1.80-8.00 vdyh=841) LYMPHOCYTES ABSOLUTE COUNT (BEAKER) (test 1.25 K/ L 1.48-4.50 ywql=848) MONOCYTES ABSOLUTE COUNT (BEAKER) (test 1.26 K/ L 0.00-1.30 mmpg=245) EOSINOPHILS ABSOLUTE COUNT (BEAKER) (test 0.05 K/ L 0.00-0.50 muyh=592) BASOPHILS ABSOLUTE COUNT (BEAKER) (test 0.01 K/ L 0.00-0.20 dblq=528) 0.000.520.000.000.560.000.000.000.00(MANUAL DIFFERENTIAL)2016-12-07 11:18:00 Test Item Value Reference Range Comments TOTAL COUNTED (BEAKER) (test jcjv=2360) CATHETER TIP [id number] 09:38:00 Test Item Value Reference Range Comments CULTURE (BEAKER) (test METHICILLIN RESISTANT 15-29 Colonies On wtlo=9886) STAPHYLOCOCCUS AUREUS Direct Plate Methicillin resistant Staphylococcus aureus Clindamycin (test code=10) Erythromycin (test code=4) Linezolid (test code=40) Oxacillin (test code=14) Rifampin (test code=43) Tetracycline (test code=2) Trimethoprim + Sulfamethoxazole (test code=47) Vancomycin (test code=13) CULTURE (BEAKER) (test <15 Colonies On Direct rmyc=294308) Plate Methicillin resistant Staphylococcus aureusof a second type CALCIUM, [id number] 09:12:00 Test Item Value Reference Range Comments CALCIUM IONIZED (BEAKER) (test mpbo=555) 1.04 mmol/L 1.12-1.27 PH, BLOOD (BEAKER) (test yfgq=0446) 7.40 BASIC METABOLIC [id number] 07:52:00 Test Item Value Reference Range Comments SODIUM (BEAKER) (test 134 meq/L 136-145 sxcj=246) POTASSIUM (BEAKER) (test 4.1 meq/L 3.5-5.1 ybkw=326) CHLORIDE (BEAKER) (test 103 meq/L 98-107 ewfw=884) CO2 (BEAKER) (test 20 meq/L 22-29 zbxj=009) BLOOD UREA NITROGEN 37 mg/dL 7-21 (BEAKER) (test dvje=470) CREATININE (BEAKER) (test 3.25 mg/dL 0.57-1.25 qcas=374) GLUCOSE RANDOM (BEAKER) 129 mg/dL 70-105 (test kmkt=588) CALCIUM (BEAKER) (test 8.1 mg/dL 8.4-10.2 uwlw=636) EGFR (BEAKER) (test 20 mL/min/1.73 sq m ESTIMATED GFR IS NOT uijg=7707) ACCURATE CREATININE CLEARANCE IN PREDICTING GLOMERULAR FILTRATION RATE. ESTIMATED GFR IS NOT APPLICABLE FOR DIALYSIS PATIENTS. [id number] 07:48:00 Test Item Value Reference Range Comments PHOSPHORUS (BEAKER) (test wrdb=873) 4.8 mg/dL 2.3-4.7 [id number] 07:48:00 Test Item Value Reference Range Comments MAGNESIUM (BEAKER) (test vaxf=451) 1.9 mg/dL 1.6-2.6 ANAEROBIC [id number] 02:42:00 Test Item Value Reference Range Comments CULTURE (BEAKER) (test nmsy=4568) No anaerobes isolated POCT-GLUCOSE [id number] 20:57:00 Test Item Value Reference Range Comments POC-GLUCOSE METER (BEAKER) 191 mg/dL 70-110 TESTED AT [address] (test wpkg=0733) [facility] [address] VANCOMYCIN LEVEL, [id number] 17:35:00 Test Item Value Reference Range Comments VANCOMYCIN RANDOM (BEAKER) (test ukuk=265) 21.9 ug/mL Reference Range: No NormalsPOCT-GLUCOSE [id number] 13:28:00 Test Item Value Reference Range Comments POC-GLUCOSE METER (BEAKER) 202 mg/dL 70-110 TESTED AT [facility] [address] [place] [address] (test osnj=8142) [facility] [address] POCT-GLUCOSE [id number] 08:30:00 Test Item Value Reference Range Comments POC-GLUCOSE METER (BEAKER) 144 mg/dL 70-110 TESTED AT [facility] [address] (test uwvk=5333) [facility] [address] BASIC METABOLIC [id number] 07:04:00 Test Item Value Reference Range Comments SODIUM (BEAKER) (test 134 meq/L 136-145 ekrs=924) POTASSIUM (BEAKER) (test 3.8 meq/L 3.5-5.1 tkar=215) CHLORIDE (BEAKER) (test 104 meq/L 98-107 qwpe=503) CO2 (BEAKER) (test 21 meq/L 22-29 phol=909) BLOOD UREA NITROGEN 33 mg/dL 7-21 (BEAKER) (test ukqx=916) CREATININE (BEAKER) (test 2.91 mg/dL 0.57-1.25 jmon=801) GLUCOSE RANDOM (BEAKER) 124 mg/dL 70-105 (test lszm=557) CALCIUM (BEAKER) (test 7.8 mg/dL 8.4-10.2 imzq=163) EGFR (BEAKER) (test 22 mL/min/1.73 sq m ESTIMATED GFR IS NOT dqvj=4949) ACCURATE CREATININE CLEARANCE IN PREDICTING GLOMERULAR FILTRATION RATE. ESTIMATED GFR IS NOT APPLICABLE FOR DIALYSIS PATIENTS. PROTHROMBIN [id number] 07:03:00 Test Item Value Reference Range Comments PROTIME (BEAKER) (test qdsj=619) 14.7 seconds 11.7-14.7 INR (BEAKER) (test cbph=752) 1.2 <=5.9 RECOMMENDED COUMADIN/WARFARIN INR THERAPY RANGESSTANDARD DOSE: 2.0 - 3.0 Includes: PROPHYLAXIS forvenous thrombosis, systemic embolization; TREATMENT for venous thrombosis and/or pulmonary embolus.HIGH RISK: Target INR is 2.5-3.5 for patients with mechanical heart valves.[id number] 07:01:00 Test Item Value Reference Range Comments PHOSPHORUS (BEAKER) (test rymv=064) 3.9 mg/dL 2.3-4.7 [id number] 07:01:00 Test Item Value Reference Range Comments MAGNESIUM (BEAKER) (test cbcm=713) 1.7 mg/dL 1.6-2.6 CALCIUM, [id number] 06:45:00 Test Item Value Reference Range Comments CALCIUM IONIZED (BEAKER) (test edkc=271) 1.00 mmol/L 1.12-1.27 PH, BLOOD (BEAKER) (test rlpo=9910) 7.43 POCT-GLUCOSE [id number] 21:06:00 Test Item Value Reference Range Comments POC-GLUCOSE METER (BEAKER) 167 mg/dL 70-110 TESTED AT [address] (test wmbk=0372) [place] [address] POCT-GLUCOSE [id number] 17:43:00 Test Item Value Reference Range Comments POC-GLUCOSE METER (BEAKER) 212 mg/dL 70-110 TESTED AT [address] (test kasn=8100) [place] [address]
[2018-09-13] MEDS ORDERED: PANTOPRAZOLE 40 MG INJ ONE (11:28)
[2018-09-13] MEDS ORDERED: ONDANSETRON 4 MG/2 ML VIAL ONE (11:28)
[2018-09-13 11:52] LABS: Absolute Lymphocytes (CBC) 0.3 K/uL (0.7-4.9); Absolute Monocytes 1.4 K/uL (0.1-1.3); Absolute Neutrophil 18.1 K/uL (1.8-8.0); Basophils % 0.3 % (0-1.3); Eosinophils % 0.6 % (0-4.4); Hematocrit 34.7 % (39.6-49.0); Lymphocytes % 1.6 % (15.3-44.8); MCH 24.5 pg (27.0-35.0); MCV 77.4 fL (80-100); MPV 8.8 fL (7.6-11.3); Monocytes % 6.9 % (3.3-12.3); RBC Red Blood Cell Count 4.48 M/uL (4.33-5.43)
[2018-09-13 12:12] LABS: ALT/SGPT 15 U/L (12-78); AST/SGOT 15 U/L (15-37); Albumin 2.7 g/dL (3.4-5.0); Alkaline Phosphatase 111 U/L (45-117); BUN Blood Urea Nitrogen 16 mg/dL (7-18); Bicarbonate 24 mmol/L (21-32); Bilirubin Direct 0.3 mg/dL (0-0.2); Bilirubin Total 0.7 mg/dL (0.2-1.0); Glucose Level 146 mg/dL (74-106); Lipase 61 U/L (73-393); Magnesium 2.3 mg/dL (1.8-2.4); Potassium 3.5 mmol/L (3.5-5.1); Protein, Total 7.5 g/dL (6.4-8.2); Sodium Level 140 mmol/L (136-145); Troponin I < 0.02 ng/mL (0.0-0.045)
[2018-09-13 12:27] LABS: Platelet Estimate ADEQ
[2018-09-13 12:30] LABS: Anisocytosis 1+; Blood Morphology Comment NOT SEEN (NOT SEEN)
--- NOTE | 2018-09-13 12:52 | RAD REPORT ---
EXAM DESCRIPTION: RAD - Chest Single View - 09/13/2018 12:35 pm CLINICAL HISTORY: Abdominal pain, vomiting, dialysis patient COMPARISON: September 01 TECHNIQUE: AP portable chest image was obtained 1228 hours . FINDINGS: Mid and lower lung field interstitial and alveolar edema pattern is evident. Upper lobe va sculature is prominent. Patient has cardiomegaly slightly increased over July imaging. There is no pneumothorax. The large pleural effusion is not seen. Dialysis catheter in place. No acute bony abno rmality seen. No acute aortic findings suspected. IMPRESSION: Mild to moderate CHF or volume overload pattern.
[2018-09-13] MEDS ORDERED: VANCOMYCIN 0 GM/0 ML BAG ONE (13:27)
[2018-09-13] MEDS ORDERED: CEFEPIME 1 GM/100 ML BAG IV ONE (13:28)
--- NOTE | 2018-09-13 13:30 | RAD REPORT ---
EXAM DESCRIPTION: CT - Chest Abd Pelvis Wo Con - 09/13/2018 12:58 pm CLINICAL HISTORY: Chest pain, abdominal pain, vomiting COMPARISON: Chest films same date, CT chest February 2018, CT abdomen September 11 TECHNIQUE: During dynamic enhancement using 100 milliliters nonionic IV contrast, axial 5 millimeter thick images of the chest, abdomen and pelvis were obtained. Biphasic technique was utilized through the abdomen. Oral contrast was administered. All CT scans are performed using dose optimization technique as appropriate and may include automated exposure control or mA/KV adjustment according to patient size. FINDINGS: Interstitial thickening is present throughout most likely failure or volume overload relat ed. There is focal posterior left base opacification. This is favored to be atelectasis. Patient has a moderate left-sided pleural effusion and a small right-sided pleural effusion. No pneumothorax. No chest wall mass or abnormal axillary lymphadenopathy seen. Mediastinal and hilar regions show no mas s or lymphadenopathy. Cardiomegaly without pericardial thickening or effusion. Bilateral gynecomasti a is present. The liver, spleen and pancreas show no significant findings. No biliary tree dilatation. Gallbladder wall appears slightly thickened. This may be secondary to an overall volume overload pattern. Gallst ones can be occult. Gallbladder findings are not substantially different from comparison. No hydronephrosis. No acute renal parenchymal process. Upper pole renal cyst on the right. No adrenal abnormalities. Contracted urinary bladder present. Stomach is distended but not dilated. Retained f luid present. No mass or suspicious wall thickening. Large and small bowel show no suspicious finding s. No appendicitis findings. No dilated small bowel or acute small bowel finding. Moderate stool volume throughout the colon. Rect um is dilated by stool. No free air or pneumatosis. Fluid retention seen in the subcutaneous fatty ti ssues and to a lesser degree peritoneal and retroperitoneal tissues. No mass or bulky lymphadenopathy . No omental thickening. Patient has very dense calcifications throughout the arterial tree. Patient has extensive postsurgical change in the lower lumbar spine. No clearly pathologic or destruc tive process confirmed. Long-term appearance of the lumbosacral junction is unknown. IMPRESSION: Moderate left-side and small to moderate right-sided pleural effusions with left base at electasis and probable interstitial edema related to volume overload. Cardiomegaly without pericardial thickening or effusion. No bowel obstruction, free air or surgically emergent finding. Stool volume is moderate throughout th e colon with stool dilating the rectum. Peralta of the gallbladder appear slightly thickened. Gallstones can be occult. Biliary tree is normal. Pattern is not substantially different from prior September 11 imaging. Additional nonacute findings detailed in the body of the report.
--- NOTE | 2018-09-13 13:48 | ER ---
Nurse's Notes [facility] Name: Federico Martinez Age: 58 yrs Sex: Male : 1960 Arrival Date: 09/13/2018 Time: 10:59 Bed 20 Private MD: Diagnosis: Nausea and vomiting-Intractable;Elevated white blood cell count Presentation: 09/13 11:00 Presenting complaint: EMS states: vomiting that began last night. Went to dialysis this morning and finished session, but stated that he felt even worse after with increased chest pressure and nausea. Emesis is brown in appearance. Transition of care: patient was not received from another setting of care. Onset of symptoms was September 12, 2018. Risk Assessment: Do you want to hurt yourself or someone else? Patient reports no desire to harm self or others. Initial Sepsis Screen: Does the patient have a suspected source of infection? No. Patient's initial sepsis screen is negative. Care prior to arrival: Glucose check: 109. 11:00 Method Of Arrival: EMS: [facility] 11:00 Acuity: CHARLES 3 ss Historical: - Allergies: 11:06 No Known Allergies; ss - Home Meds: 15:22 albuterol sulfate 2.5 mg /3 mL (0.083 %) Inhl nebu 3 mL q6hrs prn [Active]; amiodarone ss 200 mg Oral tab 1 tab once daily [Active]; Atrovent Inhl q 4 hrs prn sob [Active]; arformoterol inhalation 2 times per day [Active]; carvedilol 6.25 mg Oral tab 1 tab 2 times per day [Active]; Cymbalta 30 mg Oral cpDR 1 cap once daily [Active]; fentanyl 25 mcg/hr Topical pt72 1 patch every 72 hours [Active]; ferrous sulfate 324 mg (65 mg iron) Oral TbEC daily [Active]; Geodon 20 mg Oral cap 1 cap 2 times per day [Active]; nifedipine 60 mg Oral tr24 1 tab twice a day [Active]; Aurora 7.5-325 mg Oral tab 1 tab every 6 hours as needed [Active]; Protonix 40 mg Oral TbEC 1 tab 2 times per day [Active]; ramipril 10 mg Oral cap 1 cap nightly [Active]; Simethicone Oral as needed [Active]; Vitamin D3 5,000 unit Oral tab daily [Active]; Zofran (as hydrochloride) 4 mg Oral tab 1 tabs every 4 hours as needed [Active]; - PMHx: 11:06 Anemia; Bipolar disorder; CHF; Dementia; COPD; ESRD; GERD; Diabetes - IDDM; Parkinsons; ss GI Hemorrhage; Hypertension; insomnia; Post Laminectomy Syndrome; Paraplegia; Anxiety; osteomyelitis; Asthma; Atherosclerotic heart disease; Depression; Schizophrenia; - Immunization history:: Adult Immunizations up to date. - Social history:: Smoking status: unknown. - Ebola Screening: : Patient denies exposure to infectious person Patient denies travel to an Ebola-affected area in the 21 days before illness onset. Screenin:22 Abuse screen: Denies threats or abuse. Nutritional screening: No deficits noted. em Tuberculosis screening: No symptoms or risk factors identified. Fall Risk None identified. Assessment: 11:22 General: Appears uncomfortable, Behavior is calm, cooperative. Pain: Complains of pain em in chest and abdomen diffusely Pain currently is 10 out of 10 on a pain scale. Pain began 1 hour ago. Neuro: Level of Consciousness is awake, alert, obeys commands, Oriented to person, place, time, situation, Paralysis from waist down, Speech is normal, Facial symmetry appears normal. Cardiovascular: Capillary refill < 3 seconds Patient's skin is warm and dry. dialysis access noted to the right upper chest. Respiratory: Airway is patent Respiratory effort is even, unlabored, Breath sounds are clear bilaterally. GI: Abdomen is round non-distended, Pt is actively vomiting black emesis Bowel sounds present X 4 quads. Abd is soft X 4 quads Abdomen is tender to palpation X 4 quads. Reports nausea, vomiting, Patient currently denies bloody stool. : No signs and/or symptoms were reported regarding the genitourinary system. EENT: No signs and/or symptoms were reported regarding the EENT system. Derm: Skin is intact, Skin is pink, warm \\T\\ dry. Musculoskeletal: Range of motion:. 11:30 General: The previous assessment is accurate, call light remains within reach. Side ss rails up x2.. 12:40 Reassessment: Patient appears in no apparent distress at this time. Patient and/or em family updated on plan of care and expected duration. Pain level reassessed. Patient is alert, oriented x 3, equal unlabored respirations, skin warm/dry/pink. request something to eat because "sugar will drop," provider notified, given turkey sandwich and chips. 13:46 Reassessment: Patient appears in no apparent distress at this time. Patient and/or em family updated on plan of care and expected duration. Pain level reassessed. Patient is alert, oriented x 3, equal unlabored respirations, skin warm/dry/pink. 14:57 Reassessment: Patient appears in no apparent distress at this time. Patient and/or em family updated on plan of care and expected duration. Pain level reassessed. Patient is alert, oriented x 3, equal unlabored respirations, skin warm/dry/pink. reports feeling better, rates pain 8/10, chest pain has improved, will continue to monitor, sister at bedside. Vital Signs: 11:13 BP 156 / 65; Pulse 85; Resp 16; Temp 97.6(TE); Pulse Ox 93% on R/A; Height 5 ft. 8 in. ss (172.72 cm); Pain 8/10; 12:00 BP 152 / 77; Pulse 76; Resp 18; Pulse Ox 99% on R/A; Pain 10/10; em 13:00 BP 165 / 67; Pulse 71; Resp 14; Pulse Ox 98% on R/A; Pain 9/10; em 14:04 BP 165 / 67; Pulse 72; Resp 15; Pulse Ox 99% on R/A; em 15:00 BP 160 / 72; Pulse 76; Resp 18; Pulse Ox 99% on R/A; Pain 8/10; em ED Course: 10:59 Patient arrived in ED. ss 11:02 Addy Reid PA is PHCP. cp 11:02 Addy Franco MD is Attending Physician. cp 11:04 Triage completed. ss 11:06 Arm band placed on right wrist. ss 11:16 Kem Bower LVN is Primary Nurse. em 11:22 Patient has correct armband on for positive identification. Bed in low position. Call em light in reach. Side rails up X2. 11:22 Initial lab(s) drawn, by me, sent to lab. Inserted saline lock: 20 gauge in right em forearm, using aseptic technique. Blood collected. 11:48 EKG done, by ED staff, reviewed by Addy Franco MD. [facility] 12:30 X-ray completed. Portable x-ray completed in exam room. Patient tolerated procedure ml well. 12:36 XRAY Chest (1 view) In Process Unspecified. EDMS 12:57 CT Chest Abdomen Pelvis W/O Contrast: no oral contrast In Process Unspecified. EDMS 13:46 Valery Norman MD is Hospitalizing Provider. cp 15:56 No provider procedures requiring assistance completed. Patient admitted, IV remains in em place. Administered Medications: 11:40 Drug: Zofran 4 mg Route: IVP; Site: right forearm; ss 12:10 Follow up: Response: No adverse reaction em 11:40 Drug: ProTONIX 40 mg Route: IVP; Site: right forearm; ss 12:10 Follow up: Response: No adverse reaction em 13:26 Drug: Cefepime 1 grams Route: IVPB; Rate: 200 ml/hr; Infused Over: 30 mins; Site: right em forearm; 14:02 Follow up: Response: No adverse reaction; IV Status: Completed infusion; IV Intake: em 100ml 13:45 Not Given (Physician Discretion): vancoMYCIN 1 grams IVPB once over 2 hrs cp Intake: 14:02 IV: 100ml; Total: 100ml. em Outcome: 13:48 Decision to Hospitalize by Provider. cp 16:26 Admitted to Med/surg accompanied by tech, via stretcher, room 210, with chart, Report em called to LIZABETH Jones 16:26 Condition: good 16:26 Instructed on the need for admit, Demonstrated understanding of instructions. 16:49 Patient left the ED. em Signatures: Dispatcher [employer] EDWA Kem Bower, SENIOR SHAREPOINT DEVELOPER SENIOR SHAREPOINT DEVELOPER em Elvie Martinez Shelby, RN RN Addy Gonzáles PA PA Eli Chase [facility]
--- NOTE | 2018-09-13 13:49 | EDPHYS ---
Physician Documentation [facility] Name: Federico Martinez Age: 58 yrs Sex: Male : 1960 Arrival Date: 09/13/2018 Time: 10:59 Bed 20 Private MD: ED Physician Addy Franco HPI: 09/13 11:09 This 58 yrs old Male presents to ER via EMS with complaints of Nausea/Vomiting.cp 11:09 The patient presents to the emergency department with nausea, that is moderate, cp vomiting, that is intermittent, abdominal pain, of the abdomen diffusely. Onset: The symptoms/episode began/occurred yesterday. 11:09 Patient reports he just finished dialysis when vomiting returned. cp 11:09 Associated signs and symptoms: Pertinent positives: abdominal pain, Pertinent cp negatives: constipation, diarrhea, fever. Historical: - Allergies: 11:06 No Known Allergies; ss - Home Meds: 15:22 albuterol sulfate 2.5 mg /3 mL (0.083 %) Inhl nebu 3 mL q6hrs prn [Active]; amiodarone ss 200 mg Oral tab 1 tab once daily [Active]; Atrovent Inhl q 4 hrs prn sob [Active]; arformoterol inhalation 2 times per day [Active]; carvedilol 6.25 mg Oral tab 1 tab 2 times per day [Active]; Cymbalta 30 mg Oral cpDR 1 cap once daily [Active]; fentanyl 25 mcg/hr Topical pt72 1 patch every 72 hours [Active]; ferrous sulfate 324 mg (65 mg iron) Oral TbEC daily [Active]; Geodon 20 mg Oral cap 1 cap 2 times per day [Active]; nifedipine 60 mg Oral tr24 1 tab twice a day [Active]; [place] 7.5-325 mg Oral tab 1 tab every 6 hours as needed [Active]; Protonix 40 mg Oral TbEC 1 tab 2 times per day [Active]; ramipril 10 mg Oral cap 1 cap nightly [Active]; Simethicone Oral as needed [Active]; Vitamin D3 5,000 unit Oral tab daily [Active]; Zofran (as hydrochloride) 4 mg Oral tab 1 tabs every 4 hours as needed [Active]; - PMHx: 11:06 Anemia; Bipolar disorder; CHF; Dementia; COPD; ESRD; GERD; Diabetes - IDDM; Parkinsons; ss GI Hemorrhage; Hypertension; insomnia; Post Laminectomy Syndrome; Paraplegia; Anxiety; osteomyelitis; Asthma; Atherosclerotic heart disease; Depression; Schizophrenia; - Immunization history:: Adult Immunizations up to date. - Social history:: Smoking status: unknown. - Ebola Screening: : Patient denies exposure to infectious person Patient denies travel to an Ebola-affected area in the 21 days before illness onset. ROS: 11:15 Constitutional: Negative for body aches, chills, fever, poor PO intake. cp 11:15 Eyes: Negative for injury, pain, redness, and discharge. cp 11:15 ENT: Negative for drainage from ear(s), ear pain, sore throat, difficulty swallowing, difficulty handling secretions. 11:15 Respiratory: Negative for cough, dyspnea on exertion, shortness of breath, wheezing. 11:15 Abdomen/GI: Positive for abdominal pain, nausea and vomiting, Negative for diarrhea, constipation, hematemesis, black/tarry stool, rectal bleeding. 11:15 Back: Negative for pain at rest, pain with movement. 11:15 Skin: Negative for cellulitis, rash. 11:15 Neuro: Negative for altered mental status, headache, weakness. 11:15 Cardiovascular: Negative for chest pain, edema, palpitations. cp 11:15 All other systems are negative. Exam: 11:20 Constitutional: The patient appears in no acute distress, alert, awake, cp non-diaphoretic, non-toxic, well developed, well nourished. 11:20 Head/Face: Normocephalic, atraumatic. cp 11:20 Eyes: Periorbital structures: appear normal, Conjunctiva: normal, no exudate, no injection, Sclera: no appreciated abnormality, Lids and lashes: appear normal, bilaterally. 11:20 ENT: External ear(s): are unremarkable, Nose: is normal, Mouth: Lips: moist, Oral mucosa: moist, Posterior pharynx: is normal, airway is patent, no erythema, no exudate. 11:20 Neck: ROM/movement: is normal, is supple, without pain, no range of motions limitations, no nuchal rigidity. 11:20 Chest/axilla: Inspection: normal, Palpation: is normal, no crepitus, no tenderness. 11:20 Cardiovascular: Rate: normal, Rhythm: regular, Edema: is not appreciated, JVD: is not appreciated. 11:20 Respiratory: the patient does not display signs of respiratory distress, Respirations: normal, no use of accessory muscles, no retractions, no splinting, no tachypnea, labored breathing, is not present, Breath sounds: are clear throughout, no decreased breath sounds, no stridor, no wheezing. 11:20 Abdomen/GI: Inspection: abdomen appears normal, Bowel sounds: active, all quadrants, Palpation: soft, in all quadrants, mild abdominal tenderness, in all quadrants, rebound tenderness, is not appreciated, involuntary guarding, is not appreciated. 11:20 Back: pain, is absent, ROM is normal. 11:20 Skin: cellulitis, is not appreciated, no rash present. 11:20 Neuro: Orientation: to person, place \T\ time. Mentation: is normal. 11:52 ECG was reviewed by the Attending Physician. Vital Signs: 11:13 BP 156 / 65; Pulse 85; Resp 16; Temp 97.6(TE); Pulse Ox 93% on R/A; Height 5 ft. 8 in. ss (172.72 cm); Pain 8/10; 12:00 BP 152 / 77; Pulse 76; Resp 18; Pulse Ox 99% on R/A; Pain 10/10; em 13:00 BP 165 / 67; Pulse 71; Resp 14; Pulse Ox 98% on R/A; Pain 9/10; em 14:04 BP 165 / 67; Pulse 72; Resp 15; Pulse Ox 99% on R/A; em 15:00 BP 160 / 72; Pulse 76; Resp 18; Pulse Ox 99% on R/A; Pain 8/10; em MDM: 11:03 Patient medically screened. 13:45 Physician consultation: Valery Norman MD was called at 13:46, was contacted at 13:46, regarding admission, to the telemetry unit. patient's condition. 13:47 Data reviewed: vital signs, nurses notes, lab test result(s), EKG, radiologic studies, cp CT scan, plain films. 13:47 Test interpretation: by ED physician or midlevel provider: plain radiologic studies. cp Counseling: I had a detailed discussion with the patient and/or guardian regarding: the historical points, exam findings, and any diagnostic results supporting the discharge/admit diagnosis, lab results, radiology results. Response to treatment: the patient's symptoms have mildly improved after treatment. 09/13 11:09 Order name: Basic Metabolic Panel; Complete Time: 12:33 cp 09/13 12:33 Interpretation: Normal except: GLUC 146; CRE 3.00; GFR 21. cp 09/13 11:09 Order name: CBC with Diff; Complete Time: 12:33 cp 09/13 12:33 Interpretation: Normal except: WBC 19.9; HGB 11.0; HCT 34.7; MCV 77.4; MCH 24.5; MCHC cp 31.7; RDW 22.0; RENA% 90.6; LYM% 1.6; NEUT A 18.1; LYMA 0.3; MNA 1.4. 09/13 11:09 Order name: Creatinine for Radiology; Complete Time: 12:33 cp 09/13 11:09 Order name: Hepatic Function; Complete Time: 12:33 cp 09/13 13:33 Interpretation: Normal except: BILID 0.3; ALB 2.7; GLOB 4.8; A/G 0.6. cp 09/13 11:09 Order name: Lipase; Complete Time: 12:33 cp 09/13 11:09 Order name: Troponin I; Complete Time: 12:33 cp 09/13 11:09 Order name: Magnesium; Complete Time: 12:33 cp 09/13 11:25 Order name: XRAY Chest (1 view); Complete Time: 13:31 cp 09/13 12:28 Order name: Manual Differential; Complete Time: 12:33 EDMS 09/13 12:36 Order name: CT Chest Abdomen Pelvis W/O Contrast: no oral contrast; Complete Time: 13:31cp 09/13 12:36 Order name: Gastric Occult Blood cp 09/13 11:09 Order name: IV Saline Lock; Complete Time: 11:41 cp 09/13 11:09 Order name: Labs collected and sent; Complete Time: 11:40 cp 09/13 11:09 Order name: EKG; Complete Time: 11:10 cp 09/13 11:09 Order name: EKG - Nurse/Tech; Complete Time: 11:47 cp EC:52 Rate is 80 beats/min. Rhythm is regular. VA interval is normal. QRS interval is cp prolonged at 130 msec. QT interval is normal. T waves are Flattened in lead III. Interpreted by me. Reviewed by me. Administered Medications: 11:40 Drug: Zofran 4 mg Route: IVP; Site: right forearm; ss 12:10 Follow up: Response: No adverse reaction em 11:40 Drug: ProTONIX 40 mg Route: IVP; Site: right forearm; ss 12:10 Follow up: Response: No adverse reaction em 13:26 Drug: Cefepime 1 grams Route: IVPB; Rate: 200 ml/hr; Infused Over: 30 mins; Site: right em forearm; 14:02 Follow up: Response: No adverse reaction; IV Status: Completed infusion; IV Intake: em 100ml 13:45 Not Given (Physician Discretion): vancoMYCIN 1 grams IVPB once over 2 hrs cp Disposition: 09/13/18 13:48 Hospitalization ordered by Valery Norman for Observation. Preliminary diagnosis are Nausea and vomiting - Intractable, Elevated white blood cell count. - Bed requested for Telemetry/MedSurg (observation). - Status is Observation. em - Condition is Stable. - Problem is new. - Symptoms have improved. UTI on Admission? No Addendum: 09/16/2018 08:11 Co-signature as Attending Physician, Addy Franco MD I agree with the assessment and c costa plan of care. Signatures: Dispatcher [employer] [facility] Calista Thomas RN RN dw Anderson, Corey, MD MD cha Munoz, Edgar, XEROX MACHINE ASSEMBLER XEROX MACHINE ASSEMBLER em Manuela Pickens RN RN ss Page, Corey, PA PA cp Corrections: (The following items were deleted from the chart) 09/13 12:28 11:59 CBC Smear Scan ordered. [facility] 15:46 13:48 Hospitalization Ordered by Valery Norman MD for Observation. Preliminary dw diagnosis is Nausea and vomiting - Intractable; Elevated white blood cell count. Bed requested for Telemetry/MedSurg (observation). Status is Observation. Condition is Stable. Problem is new. Symptoms have improved. UTI on Admission? No. cp 16:49 15:46 09/13/2018 13:48 Hospitalization Ordered by Valery Norman MD for Observation. em Preliminary diagnosis is Nausea and vomiting - Intractable; Elevated white blood cell count. Bed requested for Telemetry/MedSurg (observation). Status is Observation. Condition is Stable. Problem is new. Symptoms have improved. UTI on Admission? No. dw 09/14 10:46 09/13 11:15 Cardiovascular: Positive for chest pain, Negative for edema, palpitations, cp cp 09/14 10:46 09/13 11:15 All other systems are negative, cp cp
[2018-09-13] MEDS ORDERED: ACETAMINOPHEN 500 MG TAB PO PRN (16:51)
[2018-09-13] MEDS ORDERED: ONDANSETRON 4 MG/2 ML VIAL IV PRN (16:51)
--- NOTE | 2018-09-13 17:17 | P.HP ---
Certification for Inpatient Patient admitted to: Observation With expected LOS: <2 Midnights Patient will require the following post-hospital care: None Practitioner: I am a practitioner with admitting privileges, knowledge of patient current condition, hospital course, and medical plan of care. Services: Services provided to patient in accordance with Admission requirements found in Title 42 Section 412.3 of the Code of Federal Regulations Patient History Date of Service: 09/13/18 Reason for admission: Hememesis History of Present Illness: 58-year-old male with significant past medical history of GI bleed, gastritis, esophageal varices, HTN, diabetes, GERD, who presented to the ED with Hememesis from the [facility]. The patient has been to the hospital several times for the same reason before as well, Where GI saw the patient and did EGD. patient was found to have Non bleeding Ulcers, gastritis and esophageal varices. Heme/Onc was also consulted who believe pt has chronic Bone marrow suppression due to ESRD and Sepsis. Patient was discharged on Protonix b.i.d. along with Carafate. Patient states that he has been taking his medications [facility]. Patient denies having any alcohol intake or any illicit drug usage at this time. States he might been having Melenotic stool but not sure. Patient was brought to the ER for hematemesis was evaluated in the ER and was discharged back again was [facility] the [facility] with stable hemoglobin and follow up with GI doctor outpatient. Allergies No Known Drug Allergies Allergy (Verified 04/08/18 04:40) Unknown No Allergy (Uncoded 04/08/18 08:07) Unknown Home Medications: Albuterol Sulfate [Albuterol Sulfate 0.083% Neb Soln] 2.5 mg IH Q6H PRN Amiodarone HCl [Cordarone*] 1 tab PO DAILY 09/13/18 Arformoterol Tartrate [Brovana] 1 inh IH BID 09/13/18 Carvedilol [Coreg*] 1 tab PO BID 09/13/18 Cholecalciferol (Vitamin D3) [Vitamin D3] 1 cap PO DAILY 09/13/18 Duloxetine HCl [Cymbalta] 1 cap PO DAILY 09/13/18 Fentanyl [Duragesic] 1 patch TOP Q72H 09/13/18 Ferrous Sulfate 1 tab PO DAILY 09/13/18 Hydrocodone Bit/Acetaminophen [[place] 7.5-325 Tablet] 1 tab PO Q6H PRN 09/13/18 Ipratropium Neb [Atrovent*] 1 inh IH Q4H PRN 09/13/18 Nifedipine [Procardia Xl] 1 tab PO BID 09/13/18 Ondansetron HCl [Zofran] 1 tab PO Q4H PRN 09/13/18 Pantoprazole Sodium [Protonix] 1 tab PO BID 09/13/18 Ramipril [Altace] 1 cap PO BEDTIME 09/13/18 Simethicone 1 tab PO DAILY PRN 09/13/18 Ziprasidone HCl [Geodon] 1 cap PO BID 09/13/18 - Past Medical/Surgical History Diabetic: Yes -: DM-Type 2 -: HTN -: Hyperlipidemia -: Dementia, Parkinsons disease -: GERD -: ESRD, Nephrology-Dr. Leavitt, Dialysis-,,Sat -: Restless leg syndrome -: COPD -: Depression, insomnia -: Anemia of chronic disease -: Normal-pressure hydrocephalus -: CAD, PUD -: Cardiac stents. -: Numerous back surgeries -: Congestive heart failure Psychosocial/ Personal History: [facility] - Family History Mother -: Heart disease, Hypertension Father -: Heart disease - Social History Alcohol use: No CD- Drugs: No Caffeine use: Yes Review of Systems 10-point ROS is otherwise unremarkable Physical Examination - Physical Exam General: Alert, In no apparent distress, Acute distress HEENT: Atraumatic, PERRLA, Mucous membr. moist/pink, EOMI, Sclerae nonicteric Neck: Supple, 2+ carotid pulse no bruit, No LAD, Without JVD or thyroid abnormality Respiratory: Clear to auscultation bilaterally, Normal air movement Cardiovascular: Regular rate/rhythm, Normal S1 S2 Gastrointestinal: Normal bowel sounds, No tenderness Musculoskeletal: No tenderness Integumentary: No rashes Neurological: Normal gait, Normal speech, Normal strength at 5/5 x4 extr, Normal tone, Normal affect Lymphatics: No axilla or inguinal lymphadenopathy - Studies Laboratory Data (last 24 hrs) 09/13/18 11:38: Creatinine 3.00 H 09/13/18 11:38: WBC 19.9 H D, Hgb 11.0 L, Hct 34.7 L, Plt Count 247 09/13/18 11:38: Sodium 140, Potassium 3.5, BUN 16, Creatinine 3.00 H D, Glucose 146 H, Magnesium 2.3, Total Bilirubin 0.7, AST 15, ALT 15, Alkaline Phosphatase 111, Troponin I < 0.02, Lipase 61 L Assessment and Plan - Problems (Diagnosis) (1) UGIB (upper gastrointestinal bleed) Onset Date: 05/28/17 Current Visit: No Status: Resolved Plan: Repeated Admission for this in the past. Recently scoped by GI. Had varices and gastritis. Anemia Most likely secondary to ESRD and chronic Gastritis -Protonix BID IV for now -Monitor H/H if trending down will transfuse -If stable DC back to NH and outpt f.u with GI (2) Leukocytosis Onset Date: 01/10/17 Current Visit: No Status: Acute Plan: Most Likely 2.2 to Gastroentritis -Will trend the WBC with CBC bree -Cefepime x 1 in the ER -Culture pending Qualifiers: Leukocytosis type: bandemia Qualified Code(s): D72.825 - Bandemia (3) Anasarca Onset Date: 06/05/17 Current Visit: No Status: Chronic (4) Atrial fibrillation Current Visit: No Status: Chronic Qualifiers: (5) Bipolar disorder Onset Date: 05/04/17 Current Visit: No Status: Chronic Qualifiers: (6) CAD (coronary artery disease) Onset Date: 12/24/17 Current Visit: No Status: Chronic Qualifiers: (7) CHF (congestive heart failure) Onset Date: 12/24/17 Current Visit: No Status: Chronic Qualifiers: (8) COPD (chronic obstructive pulmonary disease) Onset Date: 12/24/17 Current Visit: No Status: Chronic Qualifiers: (9) Diabetes Onset Date: 12/24/17 Current Visit: No Status: Chronic Qualifiers: (10) ESRD (end stage renal disease) Onset Date: 12/24/17 Current Visit: No Status: Chronic Plan: Currently on HD (T,TH,S) with Dr. Leavitt 1. Nephrology Consulted. Appreciate Reccs 2. On Epogen 3. Last visit evaluated extensively for Anemia of Chronic Disease. (11) GERD (gastroesophageal reflux disease) Onset Date: 12/24/17 Current Visit: No Status: Chronic Qualifiers: (12) Gastric varices Onset Date: 05/28/17 Current Visit: No Status: Chronic (13) Hypertension Onset Date: 12/24/17 Current Visit: No Status: Chronic Qualifiers: (14) History of upper gastrointestinal bleeding Current Visit: No Status: Acute Discharge Plan: Home Plan to discharge in: 48 Hours - Advance Directives Does patient have a Living Will: No Does patient have a Durable POA for Healthcare: Yes - Code Status/Comfort Care Code Status Assessed: Yes Critical Care: No
[2018-09-13] MEDS ORDERED: SIMETHICONE 80 MG TAB PO PRN (17:20)
[2018-09-13] MEDS ORDERED: ONDANSETRON 4 MG (ODT) TAB PO PRN (17:44)
[2018-09-13] MEDS: ARFORMOTEROL TARTRATE 15 MCG/2 ML VIAL.NEB IH SCH (19:48)
[2018-09-13] MEDS: IPRATROPIUM BROM 0.5MG/2.5ML IH PRN (19:49)
[2018-09-13] MEDS: NIFEDIPINE XL 60 MG TABLET PO SCH (20:19)
[2018-09-13] MEDS: RAMIPRIL 5 MG CAP PO SCH (20:19)
[2018-09-13] MEDS: CARVEDILOL 6.25 MG TAB PO SCH (20:20)
[2018-09-13] MEDS: HYDROCODONE/APAP 7.5/325 MG TAB PO PRN (20:20)
[2018-09-13] MEDS: ZIPRASIDONE 20 MG CAP PO SCH (20:20)
[2018-09-13] MEDS: PANTOPRAZOLE 40MG TABLET PO SCH (20:21)
[2018-09-14 05:40] LABS: Absolute Lymphocytes (CBC) 0.5 K/uL (0.7-4.9); Absolute Monocytes 1.4 K/uL (0.1-1.3); Absolute Neutrophil 14.7 K/uL (1.8-8.0); Basophils % 0.5 % (0-1.3); Eosinophils % 1.8 % (0-4.4); Hematocrit 31.3 % (39.6-49.0); Lymphocytes % 2.9 % (15.3-44.8); MCH 24.4 pg (27.0-35.0); MCV 78.6 fL (80-100); MPV 8.5 fL (7.6-11.3); Monocytes % 8.3 % (3.3-12.3); RBC Red Blood Cell Count 3.98 M/uL (4.33-5.43)
[2018-09-14 05:49] LABS: Albumin 2.4 g/dL (3.4-5.0); Bilirubin Total 0.5 mg/dL (0.2-1.0); Potassium 3.7 mmol/L (3.5-5.1); Protein, Total 6.2 g/dL (6.4-8.2)
--- NOTE | 2018-09-14 07:04 | EKG ---
Test Date: 2018-09-13 Test Time: 11:45:34 Reaming Machine Operator For Plastic: MARK MEASUREMENT RESULTS: Intervals: Rate: 80 [place]: 164 QRSD: 130 QT: 454 QTc: 523 [place]: P: 51 [place]: 164 QRS: 62 T: 68 INTERPRETIVE STATEMENTS: Normal sinus rhythm Possible Left atrial enlargement Nonspecific intraventricular block Abnormal ECG Compared to ECG 08/01/2018 14:36:12 T-wave abnormality no longer present Electronically Signed On 09-14-18 07:03:08 CLOUD ENGINEER by Júnior Napoles
[2018-09-14] MEDS: NIFEDIPINE XL 60 MG TABLET PO SCH ×2 (09:16→20:44)
[2018-09-14] MEDS: FERROUS SULFATE 325 MG TAB PO SCH (09:16)
[2018-09-14] MEDS: PANTOPRAZOLE 40MG TABLET PO SCH ×2 (09:16→20:46)
[2018-09-14] MEDS: VITAMIN D 5,000 UNIT CAP PO SCH (09:16)
[2018-09-14] MEDS: ZIPRASIDONE 20 MG CAP PO SCH ×2 (09:16→20:45)
[2018-09-14] MEDS: DULOXETINE 30 MG CAP PO SCH (09:16)
[2018-09-14] MEDS: AMIODARONE HCL 200 MG TAB PO SCH (09:17)
[2018-09-14] MEDS: CARVEDILOL 6.25 MG TAB PO SCH ×2 (09:17→20:45)
[2018-09-14] MEDS: HYDROCODONE/APAP 7.5/325 MG TAB PO PRN ×2 (09:21→20:45)
[2018-09-14] MEDS: ARFORMOTEROL TARTRATE 15 MCG/2 ML VIAL.NEB IH SCH ×2 (11:26→19:47)
--- NOTE | 2018-09-14 14:57 | P.PN ---
Subjective Date of Service: 09/14/18 Chief Complaint: Hememesis Subjective: No C/O voiced, Tolerating diet, Improving, Doing well Review of Systems 10-point ROS is otherwise unremarkable Physical Examination - Vital Signs Temperature: 98.5 F Blood Pressure: 143/73 Pulse: 69 Respirations: 16 Pulse Ox (%): 98 - Physical Exam General: Alert, In no apparent distress HEENT: Atraumatic, PERRLA, EOMI Neck: Supple, JVD not distended Respiratory: Clear to auscultation bilaterally, Normal air movement Cardiovascular: Regular rate/rhythm, Normal S1 S2 Gastrointestinal: Normal bowel sounds, No tenderness Musculoskeletal: No tenderness Integumentary: No rashes Neurological: Normal speech, Normal tone, Normal affect Lymphatics: No axilla or inguinal lymphadenopathy - Studies Medications List Reviewed: Yes Assessment And Plan - Current Problems (Diagnosis) (1) UGIB (upper gastrointestinal bleed) Onset Date: 05/28/17 Current Visit: No Status: Resolved Plan: Repeated Admission for this in the past. Recently scoped by GI. Had varices and gastritis. -Anemia Most likely secondary to ESRD and chronic Gastritis -Protonix BID IV for now -Stable H/H for now -If stable DC back to NH and outpt f.u with GI (2) Leukocytosis Onset Date: 01/10/17 Current Visit: No Status: Acute Plan: Most Likely 2.2 to Gastroentritis -WBC trending down. -Cefepime x 1 in the ER -Culture pending. negative thus far Qualifiers: Leukocytosis type: bandemia Qualified Code(s): D72.825 - Bandemia (3) Anasarca Onset Date: 06/05/17 Current Visit: No Status: Chronic (4) Atrial fibrillation Current Visit: No Status: Chronic Qualifiers: (5) Bipolar disorder Onset Date: 05/04/17 Current Visit: No Status: Chronic Qualifiers: (6) CAD (coronary artery disease) Onset Date: 12/24/17 Current Visit: No Status: Chronic Qualifiers: (7) CHF (congestive heart failure) Onset Date: 12/24/17 Current Visit: No Status: Chronic Qualifiers: (8) COPD (chronic obstructive pulmonary disease) Onset Date: 12/24/17 Current Visit: No Status: Chronic Qualifiers: (9) Diabetes Onset Date: 12/24/17 Current Visit: No Status: Chronic Qualifiers: (10) ESRD (end stage renal disease) Onset Date: 12/24/17 Current Visit: No Status: Chronic Plan: Currently on HD (T,TH,S) with Dr. Leavitt 1. Nephrology Consulted. Appreciate Reccs 2. On Epogen 3. Last visit evaluated extensively for Anemia of Chronic Disease. (11) GERD (gastroesophageal reflux disease) Onset Date: 12/24/17 Current Visit: No Status: Chronic Qualifiers: (12) Gastric varices Onset Date: 05/28/17 Current Visit: No Status: Chronic (13) Hypertension Onset Date: 12/24/17 Current Visit: No Status: Chronic Qualifiers: (14) History of upper gastrointestinal bleeding Current Visit: No Status: Acute - Plan Pending clinical improvement at this time. If WBC continued to trend down will discharge patient in next 24-48 hr Discharge Plan: [facility] Plan to discharge in: 48 Hours - Code Status/Comfort Care Code Status Assessed: Yes Critical Care: No
[2018-09-14] MEDS: RAMIPRIL 5 MG CAP PO SCH (20:45)
[2018-09-15 05:31] LABS: Absolute Lymphocytes (CBC) 0.7 K/uL (0.7-4.9); Absolute Monocytes 1.6 K/uL (0.1-1.3); Absolute Neutrophil 16.4 K/uL (1.8-8.0); Basophils % 0.6 % (0-1.3); Eosinophils % 2.1 % (0-4.4); Hematocrit 31.8 % (39.6-49.0); Lymphocytes % 3.6 % (15.3-44.8); MCH 24.6 pg (27.0-35.0); MPV 8.9 fL (7.6-11.3); Monocytes % 8.5 % (3.3-12.3); RBC Red Blood Cell Count 4.08 M/uL (4.33-5.43)
[2018-09-15 05:49] LABS: Albumin 2.4 g/dL (3.4-5.0); Bilirubin Total 0.5 mg/dL (0.2-1.0); Potassium 4.2 mmol/L (3.5-5.1); Protein, Total 6.5 g/dL (6.4-8.2)
[2018-09-15] MEDS: ARFORMOTEROL TARTRATE 15 MCG/2 ML VIAL.NEB IH SCH ×2 (08:23→19:44)
[2018-09-15] MEDS: FERROUS SULFATE 325 MG TAB PO SCH (09:21)
[2018-09-15] MEDS: AMIODARONE HCL 200 MG TAB PO SCH (09:21)
[2018-09-15] MEDS: DULOXETINE 30 MG CAP PO SCH (09:21)
[2018-09-15] MEDS: NIFEDIPINE XL 60 MG TABLET PO SCH ×2 (09:21→21:12)
[2018-09-15] MEDS: CARVEDILOL 6.25 MG TAB PO SCH ×2 (09:21→21:12)
[2018-09-15] MEDS: PANTOPRAZOLE 40MG TABLET PO SCH ×2 (09:21→21:12)
[2018-09-15] MEDS: ZIPRASIDONE 20 MG CAP PO SCH ×2 (09:21→21:12)
[2018-09-15] MEDS: VITAMIN D 5,000 UNIT CAP PO SCH (09:22)
[2018-09-15] MEDS ORDERED: Levofloxacin500mg IV 500 MG/100 ML BAG IV SCH (12:00)
--- NOTE | 2018-09-15 12:54 | P.PN ---
Subjective Date of Service: 09/15/18 Chief Complaint: Hememesis Subjective: No C/O voiced, Tolerating diet, Improving, Doing well Review of Systems 10-point ROS is otherwise unremarkable Physical Examination - Vital Signs Temperature: 98.6 F Blood Pressure: 132/62 Pulse: 68 Respirations: 16 Pulse Ox (%): 91 - Physical Exam General: Alert, In no apparent distress HEENT: Atraumatic, PERRLA, EOMI Neck: Supple, JVD not distended Respiratory: Clear to auscultation bilaterally, Normal air movement Cardiovascular: Regular rate/rhythm, Normal S1 S2 Gastrointestinal: Normal bowel sounds, No tenderness Musculoskeletal: No tenderness Integumentary: No rashes Neurological: Normal speech, Normal tone, Normal affect Lymphatics: No axilla or inguinal lymphadenopathy - Studies Medications List Reviewed: Yes Assessment And Plan - Current Problems (Diagnosis) (1) UGIB (upper gastrointestinal bleed) Onset Date: 05/28/17 Current Visit: No Status: Resolved Plan: Repeated Admission for this in the past. Recently scoped by GI. Had varices and gastritis. -Anemia Most likely secondary to ESRD and chronic Gastritis -Protonix BID IV for now -Stable H/H for now -If stable DC back to NH and outpt f.u with GI (2) Leukocytosis Onset Date: 01/10/17 Current Visit: No Status: Acute Plan: Most Likely 2.2 to Gastroentritis vs PNA. Worsening today with WBC elevated -Cefepime x 1 in the ER -Started on Levaquin today Qualifiers: Leukocytosis type: bandemia Qualified Code(s): D72.825 - Bandemia (3) Anasarca Onset Date: 06/05/17 Current Visit: No Status: Chronic (4) Atrial fibrillation Current Visit: No Status: Chronic Qualifiers: (5) Bipolar disorder Onset Date: 05/04/17 Current Visit: No Status: Chronic Qualifiers: (6) CAD (coronary artery disease) Onset Date: 12/24/17 Current Visit: No Status: Chronic Qualifiers: (7) CHF (congestive heart failure) Onset Date: 12/24/17 Current Visit: No Status: Chronic Qualifiers: (8) COPD (chronic obstructive pulmonary disease) Onset Date: 12/24/17 Current Visit: No Status: Chronic Qualifiers: (9) Diabetes Onset Date: 12/24/17 Current Visit: No Status: Chronic Qualifiers: (10) ESRD (end stage renal disease) Onset Date: 12/24/17 Current Visit: No Status: Chronic Plan: Currently on HD (T,TH,S) with Dr. Leavitt 1. Nephrology Consulted. Appreciate Reccs 2. On Epogen 3. Last visit evaluated extensively for Anemia of Chronic Disease. (11) GERD (gastroesophageal reflux disease) Onset Date: 12/24/17 Current Visit: No Status: Chronic Qualifiers: (12) Gastric varices Onset Date: 05/28/17 Current Visit: No Status: Chronic (13) Hypertension Onset Date: 12/24/17 Current Visit: No Status: Chronic Qualifiers: (14) History of upper gastrointestinal bleeding Current Visit: No Status: Acute - Plan Pending clinical improvement at this time. If WBC trending down will discharge patient in next 24-48 hr with ABX Discharge Plan: Home Plan to discharge in: 48 Hours - Code Status/Comfort Care Code Status Assessed: Yes Critical Care: No
[2018-09-15] MEDS: ALBUTEROL 2.5 MG/3 ML NEB SOL IH PRN (17:46)
[2018-09-15] MEDS: IPRATROPIUM BROM 0.5MG/2.5ML IH PRN (17:46)
[2018-09-15] MEDS: RAMIPRIL 5 MG CAP PO SCH (21:11)
[2018-09-15] MEDS: HYDROCODONE/APAP 7.5/325 MG TAB PO PRN (21:12)
[2018-09-16 06:30] LABS: Absolute Lymphocytes (CBC) 0.6 K/uL (0.7-4.9); Absolute Monocytes 1.6 K/uL (0.1-1.3); Absolute Neutrophil 16.8 K/uL (1.8-8.0); Basophils % 0.2 % (0-1.3); Hematocrit 33.2 % (39.6-49.0); Lymphocytes % 3.2 % (15.3-44.8); MCH 23.7 pg (27.0-35.0); MPV 8.5 fL (7.6-11.3); Monocytes % 8.2 % (3.3-12.3); RBC Red Blood Cell Count 4.26 M/uL (4.33-5.43)
[2018-09-16 06:51] LABS: Albumin 2.4 g/dL (3.4-5.0); Bilirubin Total 0.5 mg/dL (0.2-1.0); Potassium 4.5 mmol/L (3.5-5.1); Protein, Total 6.5 g/dL (6.4-8.2)
[2018-09-16 06:52] VITALS: BMI 27.8
[2018-09-16] MEDS: ARFORMOTEROL TARTRATE 15 MCG/2 ML VIAL.NEB IH SCH ×2 (08:09→19:55)
[2018-09-16] MEDS: NIFEDIPINE XL 60 MG TABLET PO SCH ×2 (09:00→23:07)
[2018-09-16] MEDS: CARVEDILOL 6.25 MG TAB PO SCH ×2 (09:00→23:07)
--- NOTE | 2018-09-16 09:13 | RAD REPORT ---
EXAM DESCRIPTION: RAD - Chest Single View - 09/16/2018 8:50 am CLINICAL HISTORY: wheezes noted Chest pain. COMPARISON: Chest Single View dated 09/13/2018; Chest Single View dated 08/01/2018; Chest Single Vie w dated 04/08/2018; Chest Single View dated 03/28/2018; Chest Abd Pelvis Wo Con dated 09/13/2018 FINDINGS: Portable technique limits examination quality. Mild to moderate bilateral pulmonary opacities are noted likely representing pulmonary edema. These f indings are mildly progressive since the comparative study. Pleural effusions are also likely present , greater on the left. The heart is moderately enlarged. IMPRESSION: Moderate CHF versus volume overload pattern.
[2018-09-16] MEDS: DULOXETINE 30 MG CAP PO SCH (09:34)
[2018-09-16] MEDS: ZIPRASIDONE 20 MG CAP PO SCH ×2 (09:34→23:07)
[2018-09-16] MEDS: FERROUS SULFATE 325 MG TAB PO SCH (09:35)
[2018-09-16] MEDS: VITAMIN D 5,000 UNIT CAP PO SCH (09:35)
[2018-09-16] MEDS: PANTOPRAZOLE 40MG TABLET PO SCH ×2 (09:36→23:06)
[2018-09-16] MEDS: AMIODARONE HCL 200 MG TAB PO SCH (09:36)
--- NOTE | 2018-09-16 10:13 | P.PN ---
Subjective Date of Service: 09/16/18 Primary Care Provider: [facility] resident; Nephrology-Dr. Leavitt Chief Complaint: Hememesis Subjective: Other (Patient reports slight shortness of breath with fatigue. Patient is not received dialysis since last .) Physical Examination - Vital Signs Temperature: 97.5 F Blood Pressure: 166/71 Pulse: 68 Respirations: 16 Pulse Ox (%): 97 - Physical Exam General: Alert, In no apparent distress, Cooperative HEENT: Atraumatic Neck: Supple Respiratory: Diminished (Bilateral), Crackles/rales (Mild bilateral), Expiratory wheezes (Bilateral) Cardiovascular: Normal pulses, Regular rate/rhythm Gastrointestinal: Normal bowel sounds, Soft and benign, Non-distended, No tenderness, No masses, No rebound, No guarding Musculoskeletal: No erythema, No tenderness, No warmth Integumentary: No tenderness/swelling, No erythema, No warmth, No cyanosis Neurological: Normal speech, Normal strength at 5/5 x4 extr, Normal tone, Normal affect - Studies Medications List Reviewed: Yes Assessment & Plan Discharge Plan: Group Home Plan to discharge in: 24 Hours Physician Review Additional Text: Impression: Hematemesis likely related to Upper GI bleed, resolved with history of GERD/ gastritis and gastric varices Anemia likely of chronic disease Shortness of breath with noted leukocytosis likely secondary to acute on chronic diastolic CHF and acute on chronic COPD exacerbation likely underlying left posterior base pneumonia complicated with bilateral chronic pleural effusions left greater than right slightly more progressive today, noted with elevated pro calcitonin End-stage renal disease on dialysis Atrial fibrillation, chronic Bipolar disorder CAD Diabetes mellitus type 2 Hypertension Chronic pain Plan: Hematemesis likely related to Upper GI bleed, resolved with history of GERD/ gastritis and gastric varices: No more hematemesis noted. Hemoglobin stable. Will continue with Protonix 40 mg 1 pill twice daily. Will continue monitor closely. Patient recently seen by GI. This can be further addressed as an outpatient. Anemia likely of chronic disease: Hemoglobin stable. Patient with underlying end-stage renal disease. Patient also with history of upper GI bleed in the past with noted GERD/gastritis and gastric varices. No bleeding noted at this time. Continue with current medication. Shortness of breath with noted leukocytosis likely secondary to acute on chronic diastolic CHF and acute on chronic COPD exacerbation likely underlying left posterior base pneumonia complicated with bilateral chronic pleural effusions left greater than right slightly more progressive today, noted with elevated pro calcitonin: Original CT scan upon admission showed left posterior base opacity likely underlying pneumonia. This is complicated with chronic bilateral pleural effusions. Repeat chest x-ray showed slight worsening today. This is also complicated with acute on chronic diastolic CHF and acute on chronic COPD exacerbation. Noted leukocytosis likely related to above. Will check room air saturations. Patient may require room-air ABG. Will adjust antibiotic therapy to oral. Will continue with COPD medication. Last dialysis done . Will address with nephrology today. Patient will likely need dialysis today and tomorrow. Will continue to reassess. Will provide incentive spirometer. Anticipate discharge likely tomorrow. Patient high risk for aspiration pneumonia and readmission if discharge today. Will hold discharge at this time. Will check lactic acid and blood cultures. Will continue monitor CBC. Recheck chest x-ray in the morning. Patient uses oxygen at the intermediate as needed. Previous echocardiogram done 02/2018 shows EF of 49%. End-stage renal disease on dialysis: Spoke with nephrology today. Patient will receive dialysis today. Last dialysis . Patient normally has dialysis every Tuesdays, and Saturdays. Atrial fibrillation, chronic: Will continue with medication. Not on chronic anti coagulation therapy due to history of GI bleed and anemia. Bipolar disorder: Will continue with his medication. CAD: Will continue with medication. Diabetes mellitus type 2: Will continue sliding scale and monitor closely. Hypertension: Will continue with blood pressure medication. Will monitor and adjust appropriately. Chronic pain: Will continue to hold fentanyl patch at this time. Will recommend not using fentanyl in the future as this may cause increase sedation. Time Spent Managing Pts Care (In Minutes): 55
[2018-09-16] MEDS ORDERED: levoFLOXacin 250 MG TAB PO SCH (11:00)
[2018-09-16] MEDS ORDERED: GLUCAGON 1 MG/VIAL IM PRN (17:11)
[2018-09-16] MEDS ORDERED: D50W 25 GM/50 ML SYRINGE IV PRN (17:11)
[2018-09-16] MEDS: NEPRO SHAKE 237 ML CAN PO SCH (18:30)
[2018-09-16] MEDS: HYDROCODONE/APAP 7.5/325 MG TAB PO PRN (18:32)
[2018-09-16] MEDS: INSULIN -REGULAR HUMAN 50 UNIT/0.5 ML ML SQ SCH (21:00)
[2018-09-16] MEDS: RAMIPRIL 5 MG CAP PO SCH (23:08)
--- NOTE | 2018-09-17 00:09 | PN ---
Date of Progress Note: 09/16/2018 Subjective: The patient is seen at the bedside. No overnight events reported. The patient feels we ll. Denies any fevers, chills, chest pain, shortness of breath, nausea, vomiting, or diarrhea. Objective: Vital Signs: Blood pressure is 166/71, pulse 68, temperature 97.5. General: No acute distress. Heart: Regular rate and rhythm. No murmurs, rubs, gallops. Lungs: Decreased at the bases with some rales. Abdomen: Soft, nontender, nondistended. Extremities: With no significant edema. Laboratory Data: CBC showing elevated WBC of 19.5, hemoglobin and hematocrit of 10 and 33 with a ruddy telet count of 272. Serum chemistry: Sodium 134, potassium 4.5, BUN 51, creatinine 6.7, calcium 8.4 . Current medications were reviewed. Impression: 1.Hematemesis. 2.End-stage renal disease, on hemodialysis. 3.Anemia of chronic disease. 4.Acute on chronic congestive heart failure. Plan: The patient is scheduled for dialysis today. Monitor the patient's respiratory status, and if needing further treatments, we will re-order for dialysis tomorrow. However, we will aim for a libe ral ultrafiltration today. Continue renally dosed antibiotics for presumptive pneumonia. Continue the patient on current management for anemia, and we will continue t o follow. /BG Voice ID: [id number] Report ID: [id number]
[2018-09-17] MEDS: IPRATROPIUM BROM 0.5MG/2.5ML IH PRN (01:00)
[2018-09-17] MEDS: ALBUTEROL 2.5 MG/3 ML NEB SOL IH PRN (01:00)
[2018-09-17 06:58] LABS: Albumin 2.2 g/dL (3.4-5.0); Bilirubin Total 0.4 mg/dL (0.2-1.0); Magnesium 2.2 mg/dL (1.8-2.4); Phosphorus 4.4 mg/dL (2.5-4.9); Potassium 3.9 mmol/L (3.5-5.1); Protein, Total 6.1 g/dL (6.4-8.2)
[2018-09-17 07:06] LABS: Absolute Lymphocytes (CBC) 0.4 K/uL (0.7-4.9); Absolute Monocytes 1.8 K/uL (0.1-1.3); Absolute Neutrophil 17.3 K/uL (1.8-8.0); Basophils % 0.3 % (0-1.3); Eosinophils % 1.6 % (0-4.4); Hematocrit 32.3 % (39.6-49.0); Lymphocytes % 2.1 % (15.3-44.8); MCH 24.2 pg (27.0-35.0); MCV 78.1 fL (80-100); MPV 8.5 fL (7.6-11.3); Monocytes % 8.8 % (3.3-12.3); RBC Red Blood Cell Count 4.13 M/uL (4.33-5.43)
[2018-09-17] MEDS: INSULIN -REGULAR HUMAN 50 UNIT/0.5 ML ML SQ SCH ×2 (07:30→11:30)
[2018-09-17] MEDS: ARFORMOTEROL TARTRATE 15 MCG/2 ML VIAL.NEB IH SCH (07:42)
[2018-09-17] MEDS: NEPRO SHAKE 237 ML CAN PO SCH ×2 (08:58→13:02)
[2018-09-17] MEDS: DULOXETINE 30 MG CAP PO SCH (09:00)
[2018-09-17] MEDS: VITAMIN D 5,000 UNIT CAP PO SCH (09:00)
[2018-09-17] MEDS: FERROUS SULFATE 325 MG TAB PO SCH (09:00)
[2018-09-17] MEDS ORDERED: Levofloxacin 250mg IV 250 MG/50 ML BAG IV SCH (09:00)
[2018-09-17] MEDS: PANTOPRAZOLE 40MG TABLET PO SCH (09:00)
[2018-09-17] MEDS: ZIPRASIDONE 20 MG CAP PO SCH (09:00)
[2018-09-17] MEDS: AMIODARONE HCL 200 MG TAB PO SCH (09:00)
[2018-09-17] MEDS: NIFEDIPINE XL 60 MG TABLET PO SCH (09:01)
[2018-09-17] MEDS: CARVEDILOL 6.25 MG TAB PO SCH (09:01)
[2018-09-17 10:16] LABS: Anisocytosis 1+; Blood Morphology Comment NOTED (NOT SEEN); Platelet Estimate ADEQ; Poikilocytosis 1+; Urine White Blood Cell Casts OK
--- NOTE | 2018-09-17 10:22 | P.DS ---
Admission Date: 09/16/18 Discharge Date: 09/17/18 Primary Care Provider: [facility] resident; Nephrology-Dr. Leavitt Disposition: TRANSFER TO HALF-WAY Discharge Condition: GOOD Reason for Admission: Hememesis Consultations: Nephrology-Dr. Leavitt/Dr. Man Procedures: CT scan: COMPARISON: Chest films same date, CT chest February 2018, CT abdomen September 11 TECHNIQUE: During dynamic enhancement using 100 milliliters nonionic IV contrast, axial 5 millimeter thick images of the chest, abdomen and pelvis were obtained. Biphasic technique was utilized through the abdomen. Oral contrast was administered. All CT scans are performed using dose optimization technique as appropriate and may include automated exposure control or mA/KV adjustment according to patient size. FINDINGS: Interstitial thickening is present throughout most likely failure or volume overload related. There is focal posterior left base opacification. This is favored to be atelectasis. Patient has a moderate left-sided pleural effusion and a small right-sided pleural effusion. No pneumothorax. No chest wall mass or abnormal axillary lymphadenopathy seen. Mediastinal and hilar regions show no mass or lymphadenopathy. Cardiomegaly without pericardial thickening or effusion. Bilateral gynecomastia is present. The liver, spleen and pancreas show no significant findings. No biliary tree dilatation. Gallbladder wall appears slightly thickened. This may be secondary to an overall volume overload pattern. Gallstones can be occult. Gallbladder findings are not substantially different from comparison. No hydronephrosis. No acute renal parenchymal process. Upper pole renal cyst on the right. No adrenal abnormalities. Contracted urinary bladder present. Stomach is distended but not dilated. Retained fluid present. No mass or suspicious wall thickening. Large and small bowel show no suspicious findings. No appendicitis findings. No dilated small bowel or acute small bowel finding. Moderate stool volume throughout the colon. Rectum is dilated by stool. No free air or pneumatosis. Fluid retention seen in the subcutaneous fatty tissues and to a lesser degree peritoneal and retroperitoneal tissues. No mass or bulky lymphadenopathy. No omental thickening. Patient has very dense calcifications throughout the arterial tree. Patient has extensive postsurgical change in the lower lumbar spine. No clearly pathologic or destructive process confirmed. Long-term appearance of the lumbosacral junction is unknown. IMPRESSION: Moderate left-side and small to moderate right-sided pleural effusions with left base atelectasis and probable interstitial edema related to volume overload. Cardiomegaly without pericardial thickening or effusion. No bowel obstruction, free air or surgically emergent finding. Stool volume is moderate throughout the colon with stool dilating the rectum. Peralta of the gallbladder appear slightly thickened. Gallstones can be occult. Biliary tree is normal. Pattern is not substantially different from prior September 11 imaging. Follow up CXR: COMPARISON: Chest Single View dated 09/13/2018; Chest Single View dated 2017; Chest Single View dated 04/08/2018; Chest Single View dated 03/28/2018; Chest Abd Pelvis Wo Con dated 09/13/2018 FINDINGS: Portable technique limits examination quality. Mild to moderate bilateral pulmonary opacities are noted likely representing pulmonary edema. These findings are mildly progressive since the comparative study. Pleural effusions are also likely present, greater on the left. The heart is moderately enlarged. IMPRESSION: Moderate CHF versus volume overload pattern Medical Problem List: Hematemesis likely related to Upper GI bleed, resolved with history of GERD/ gastritis and gastric varices Anemia likely of chronic disease Shortness of breath with noted leukocytosis and hypoxia on room air likely secondary to acute on chronic diastolic CHF and acute on chronic COPD exacerbation with underlying left posterior base pneumonia complicated with bilateral chronic pleural effusions left greater than right, on chronic oxygen at halfway End-stage renal disease on dialysis, Dialysis every //Sun Atrial fibrillation, chronic, not on chronic anticoagulation Bipolar disorder CAD Diabetes mellitus type 2 Hypertension Chronic pain Brief History of Present Illness: 58-year-old male presents to the emergency room with hematemesis. Patient with history of gastric varices, GERD. Patient has been seen by GI and Hematology/Oncology in the past. Hemoglobin stable. Patient was admitted for further evaluation. Patient with the other chronic medical problems Hospital Course: Patient presented with hematemesis. Patient with history of GERD/gastritis and gastric varices. Upper GI bleed was suspected. Patient was monitored. Hemoglobin remained stable. No need for transfusion was noted. Patient remained stable on PPI. Hematemesis resolved. Patient able to take normal oral intake. At discharge he will continue with Protonix 40 mg 1 pill twice daily, simethicone 80 mg daily as needed and Carafate 3 times a day as needed. Recommendation to follow up with GI as an outpatient in 2-4 weeks to monitor his progress. Patient will likely require repeat EGD in the future if this persists. Patient will return to the halfway Patient with anemia of chronic disease Hemoglobin remained stable. Patient with underlying end-stage renal disease. Patient takes iron medication. At discharge he will continue with iron 325 mg 1 pill daily. Recommendation to recheck lab-CBC in 2-4 weeks to monitor his progress. Patient also had shortness of breath during the course of the stay. Leukocytosis noted with elevated pro calcitonin. This was likely secondary to acute on chronic diastolic CHF with acute on chronic COPD exacerbation with noted hypoxia on room air. This was also complicated with underlying left posterior base pneumonia with bilateral chronic pleural effusions left greater than right. The patient was started on antibiotic therapy. Condition improved. Patient also receive dialysis. Patient had missed dialysis over 4 days. Patient responded well to dialysis. At discharge patient will continue with oxygen to maintain sats above 90%. Patient will continue with Levaquin 250 mg 1 pill every 48 hr for 4 doses. Recommendation to recheck chest x-ray in 2-4 weeks to monitor resolution. Recommendation to recheck lab-CBC in 1 week to monitor resolution of leukocytosis. For his CHF he is to continue with a 1500 cc per day fluid restriction. He is to monitor his weight daily. If his weight increases by more than 5 lb he is to contact his PCP or nephrology to further address. Patient will continue with dialysis as directed every Tuesdays, and Saturdays. Recent echocardiogram done 02/2018 shows normal ejection fraction of 49%. Patient will continue with incentive spirometer. Patient at risk for aspiration pneumonia. Aspiration precautions are to remain in place. Patient with chronic pleural effusions that will need to be monitored. Recheck chest x-ray as recommended above. Patient will continue with his COPD medication including Brovana 1 unit dose twice daily and albuterol 1 unit dose 3 times a day as needed for shortness of breath. Recommendation for the patient follow up with pulmonology in 2-4 weeks to monitor his progress. Patient has end-stage renal disease on dialysis. Patient received dialysis during the course of his stay. Nephrology did evaluate the patient. At discharge she will continue with dialysis every Tuesdays, and Saturdays. Compliance with dialysis is to be monitored. Patient with chronic atrial fibrillation. Patient does not take chronic anti coagulation therapy due to history of GI bleed and anemia. This remained stable during the course of his stay. At discharge he will continue with amiodarone 200 mg daily and carvedilol 6.25 mg 1 pill twice daily. Patient has hypertension. This remained stable during his stay. Patient will continue with carvedilol 6.25 mg 1 pill twice daily, Procardia XL 60 mg 1 pill twice daily, and Altace 10 mg daily. Recommendation is to maintain blood pressures less 150/80. Further adjustment can be done by his PCP. Patient has bipolar disorder. Patient will continue with Cymbalta 30 mg daily and Geodon 20 mg 1 pill twice daily. Further adjustment can be done by halfway. Patient has CAD. Patient will continue with his current medications. Patient has diabetes mellitus type 2. This seems to be well controlled. Recommendation is to maintain blood sugars less than 140 fasting and less than 200 after meals. Further adjustment can be done by his PCP. Patient will continue with diabetic diet. Patient with chronic pain. Patient will continue with [place] 7.5 mg 1 pill every 6 hr as needed for pain. Fentanyl was discontinued as this has increased sedation. This will need to be reassessed at the halfway. Will need to reconsider restarting fentanyl at the halfway if pain increases. Vital Signs/Physical Exam: Temp Pulse Resp BP Pulse Ox 97.9 F 65 18 144/71 H 95 09/17/18 08:00 09/17/18 09:01 09/17/18 08:00 09/17/18 09:01 09/17/18 08:00 General: Alert, In no apparent distress, Oriented x3, Cooperative HEENT: Atraumatic Neck: Supple Respiratory: Clear to auscultation bilaterally, Normal air movement Cardiovascular: Normal pulses, Regular rate/rhythm Gastrointestinal: Normal bowel sounds, Soft and benign, Non-distended, No tenderness, No masses, No rebound, No guarding Musculoskeletal: No erythema, No tenderness, No warmth Integumentary: No tenderness/swelling, No erythema, No warmth, No cyanosis Neurological: Normal speech, Normal strength at 5/5 x4 extr, Normal tone, Normal affect Laboratory Data at Discharge: WBC 19.9 K/uL (4.3-10.9) H 09/17/18 05:47 Hgb 10.0 g/dL (13.6-17.9) L 09/17/18 05:47 Hct 32.3 % (39.6-49.0) L 09/17/18 05:47 Plt Count 247 K/uL (152-406) 09/17/18 05:47 Sodium 136 mmol/L (136-145) 09/17/18 05:47 Potassium 3.9 mmol/L (3.5-5.1) 09/17/18 05:47 BUN 37 mg/dL (7-18) H 09/17/18 05:47 Creatinine 5.00 mg/dL (0.55-1.3) H D 09/17/18 05:47 Glucose 104 mg/dL (74-106) 09/17/18 05:47 Phosphorus 4.4 mg/dL (2.5-4.9) 09/17/18 05:47 Magnesium 2.2 mg/dL (1.8-2.4) 09/17/18 05:47 Total Bilirubin 0.4 mg/dL (0.2-1.0) 09/17/18 05:47 AST 12 U/L (15-37) L 09/17/18 05:47 ALT 15 U/L (12-78) 09/17/18 05:47 Alkaline Phosphatase 105 U/L (45-117) 09/17/18 05:47 Troponin I < 0.02 ng/mL (0.0-0.045) 09/13/18 11:38 Lipase 61 U/L (73-393) L 09/13/18 11:38 Home Medications: Albuterol Sulfate [Albuterol Sulfate 0.083% Neb Soln] 2.5 mg IH Q6H PRN Amiodarone HCl [Cordarone*] 1 tab PO DAILY 09/13/18 Arformoterol Tartrate [Brovana] 1 inh IH BID 09/13/18 Carvedilol [Coreg*] 1 tab PO BID 09/13/18 Cholecalciferol (Vitamin D3) [Vitamin D3] 1 cap PO DAILY 09/13/18 Duloxetine HCl [Cymbalta] 1 cap PO DAILY 09/13/18 Ferrous Sulfate 1 tab PO DAILY 09/13/18 Hydrocodone Bit/Acetaminophen [[place] 7.5-325 Tablet] 1 tab PO Q6H PRN 09/13/18 Ipratropium Neb [Atrovent*] 1 inh IH Q4H PRN 09/13/18 Nifedipine [Procardia Xl] 1 tab PO BID 09/13/18 Ondansetron HCl [Zofran] 1 tab PO Q4H PRN 09/13/18 Pantoprazole Sodium [Protonix] 1 tab PO BID 09/13/18 Ramipril [Altace] 1 cap PO BEDTIME 09/13/18 Simethicone 1 tab PO DAILY PRN 09/13/18 Ziprasidone HCl [Geodon] 1 cap PO BID 09/13/18 Nepro Shake [Nepro*] 237 ml PO TIDWM #90 can 09/17/18 Sucralfate [Carafate -Tab] 1 gm PO SEECOM PRN #30 tab 09/17/18 levoFLOXacin [Levaquin*] 250 mg PO Q48H #4 tab 09/17/18 New Medications: levoFLOXacin [Levaquin*] 250 mg PO Q48H #4 tab Nepro Shake [Nepro*] 237 ml PO TIDWM #90 can Sucralfate [Carafate -Tab] 1 gm PO SEECOM PRN #30 tab PRN Reason: Abdominal Cramps Patient Discharge Instructions: 1. Patient will return to the halfway. 2. Patient presented with hematemesis. Patient with history of GERD/gastritis and gastric varices. Upper GI bleed was suspected. Patient was monitored. Hemoglobin remained stable. No need for transfusion was noted. Patient remained stable on PPI. Hematemesis resolved. Patient able to take normal oral intake. At discharge he will continue with Protonix 40 mg 1 pill twice daily, simethicone 80 mg daily as needed and Carafate twice daily as needed. Recommendation to follow up with GI as an outpatient in 2-4 weeks to monitor his progress. Patient will likely require repeat EGD in the future if this persists. Patient will return to the halfway. 3. Patient with anemia of chronic disease Hemoglobin remained stable. Patient with underlying end-stage renal disease. Patient takes iron medication. At discharge he will continue with iron 325 mg 1 pill daily. Recommendation to recheck lab-CBC in 2-4 weeks to monitor his progress. 4. Patient also had shortness of breath during the course of the stay. Leukocytosis noted with elevated pro calcitonin. This was likely secondary to acute on chronic diastolic CHF with acute on chronic COPD exacerbation with noted hypoxia on room air. This was also complicated with underlying left posterior base pneumonia with bilateral chronic pleural effusions left greater than right. The patient was started on antibiotic therapy. Condition improved. Patient also receive dialysis. Patient had missed dialysis over 4 days. Patient responded well to dialysis. At discharge patient will continue with oxygen to maintain sats above 90%. Patient will continue with Levaquin 250 mg 1 pill every 48 hr for 4 doses. Recommendation to recheck chest x-ray in 2-4 weeks to monitor resolution. Recommendation to recheck lab-CBC in 1 week to monitor resolution of leukocytosis. For his CHF he is to continue with a 1500 cc per day fluid restriction. He is to monitor his weight daily. If his weight increases by more than 5 lb he is to contact his PCP or nephrology to further address. Patient will continue with dialysis as directed every Tuesdays, and Saturdays. Recent echocardiogram done 02/2018 shows normal ejection fraction of 49%. Patient will continue with incentive spirometer. Patient at risk for aspiration pneumonia. Aspiration precautions are to remain in place. Patient with chronic pleural effusions that will need to be monitored. Recheck chest x-ray as recommended above. Patient will continue with his COPD medication including Brovana 1 unit dose twice daily and albuterol 1 unit dose 3 times a day as needed for shortness of breath. Recommendation for the patient follow up with pulmonology in 2-4 weeks to monitor his progress. 5. Patient has end-stage renal disease on dialysis. Patient received dialysis during the course of his stay. Nephrology did evaluate the patient. At discharge she will continue with dialysis every Tuesdays, and Saturdays. Compliance with dialysis is to be monitored. 6. Patient with chronic atrial fibrillation. Patient does not take chronic anti coagulation therapy due to history of GI bleed and anemia. This remained stable during the course of his stay. At discharge he will continue with amiodarone 200 mg daily and carvedilol 6.25 mg 1 pill twice daily. 7. Patient has hypertension. This remained stable during his stay. Patient will continue with carvedilol 6.25 mg 1 pill twice daily, Procardia XL 60 mg 1 pill twice daily, and Altace 10 mg daily. Recommendation is to maintain blood pressures less 150/80. Further adjustment can be done by his PCP. 8. Patient has bipolar disorder. Patient will continue with Cymbalta 30 mg daily and Geodon 20 mg 1 pill twice daily. Further adjustment can be done by halfway. 9. Patient has CAD. Patient will continue with his current medications. 10. Patient has diabetes mellitus type 2. This seems to be well controlled. Recommendation is to maintain blood sugars less than 140 fasting and less than 200 after meals. Further adjustment can be done by his PCP. Patient will continue with diabetic diet. 11. Patient with chronic pain. Patient will continue with [place] 7.5 mg 1 pill every 6 hr as needed for pain. Fentanyl was discontinued as this has increased sedation. This will need to be reassessed at the halfway. Will need to reconsider restarting fentanyl at the halfway if pain increases. Diet: ADA Activity: Fall precautions Time spent managing pt's care (in minutes): 55
[2018-09-17 10:41] VITALS: O2SAT 95
[2018-09-17] MEDS: HYDROCODONE/APAP 7.5/325 MG TAB PO PRN (16:38)
[2018-09-17 17:21] VITALS: BP 149/70; TEMP 98.9
== END 2018-09-17 17:40 | DRG 377 ==
LOC: ER 10:58 → ERHOLD 13:53 → 2ND 16:26 → OBSVTOIN 09-16 17:12
PROVIDERS: ADMIT Family Medicine; ATTEND Family Medicine
PROC: 5A1D70Z Performance of Urinary Filtration, Intermittent, Less than 6 Hours Per Day (ICD-10-PCS; principal; 2018-09-16)
DX: K92.0 Hematemesis (principal); N18.6 End stage renal disease; I50.33 Acute on chronic diastolic (congestive) heart failure; J18.9 Pneumonia, unspecified organism; I13.2 Hypertensive heart and chronic kidney disease with heart failure and with stage 5 chronic kidney disease, or end stage renal disease; R09.02 Hypoxemia; J44.1 Chronic obstructive pulmonary disease with (acute) exacerbation; K92.2 Gastrointestinal hemorrhage, unspecified; E11.22 Type 2 diabetes mellitus with diabetic chronic kidney disease; Z99.2 Dependence on renal dialysis; E78.5 Hyperlipidemia, unspecified; G20 Parkinson's disease; F02.80 Dementia in other diseases classified elsewhere, unspecified severity, without behavioral disturbance, psychotic disturbance, mood disturbance, and anxiety; G25.81 Restless legs syndrome; J44.9 Chronic obstructive pulmonary disease, unspecified; I25.10 Atherosclerotic heart disease of native coronary artery without angina pectoris; D63.1 Anemia in chronic kidney disease; I48.2 Chronic atrial fibrillation; F31.9 Bipolar disorder, unspecified; K21.9 Gastro-esophageal reflux disease without esophagitis; G89.29 Other chronic pain
CPT/HCPCS: 36415; 71045; 71250; 74176; 80048; 80053; 80076; 82962; 83605; 83690; 83735; 84100; 84145; 84484; 85025; 93005; 96365; 96375; 99285; C9113; G0257; G0378; J0692; J2405; J3370; J7605

== ENCOUNTER 2018-09-20 13:00 | Inpatient (IN) | payer MEDICAID ==
--- OUTSIDE RECORDS SUMMARY | 2018-09-20 13:02 | XMS REPORT | Clinical Summary ---
:1960 Author Organization [facility] Address [address] [place] [address] Care Team Providers Name Role Phone Unavailable [...] 1 application 0 12/21/2016 Active oil (VENELEX) 38-638 topically 2 (two) mg/gram Oint times daily [...] Not on file Implants Implanted Type Area Line Up Worker Device Shelf Model / Identifier Expiration Serial / Lot Date Infusion Set Bone Infuseii Lg [id number] - [id number] Bone N/A: MEDTRONIC: SPINAL 08/22/2018 [id number] / Implanted: Qty: 1 on 12/12/2016 by Eduardo Ruggiero MD Spine BIOLOGICS / Lumbar [id number] Matrix Floseal Hemo W/O Ndl 10 [id number] - [id number] Cement/Fi N/A: MA: BIOSCI 04/20/2019 [id number] / Implanted: Qty: 2 on 12/12/2016 by Eduardo Ruggiero MD ller/Adhe Spine / sive Lumbar [id number] Bone Putty Stimulan 10 620-010 - [id number] Cement/Fi N/A: BIOCOMPOSITES 08/21/2019 620-010 / Implanted: Qty: 1 on 12/12/2016 by Eduardo Ruggiero MD ller/Adhe Spine / sive Lumbar 10/16-R300/301 Connector Set Screw Joints N/A: MEDTRONIC [id number] / Implanted: Qty: 1 on 12/12/2016 by Eduardo Ruggiero MD Spine / Lumbar Scr Mas 8.5x90 [id number] - [id number] Spine N/A: MEDTRONIC:SPINE: [id number] / Implanted: Qty: 1 on 12/12/2016 by Eduardo Ruggiero MD Spine SOFAMOR DANEK / Lumbar [id number] Ballast Mas 8.5x80 Spine N/A: MEDTRONIC [id number] / Implanted: Qty: 1 on 12/12/2016 by Eduardo Ruggiero MD Spine / Lumbar [id number] Taco 29e008 Spine N/A: MEDTRONIC [id number] / Implanted: Qty: 2 on 12/12/2016 by Eduardo Ruggiero MD Spine / Lumbar [id number] Connector 20mm Spine N/A: MEDTRONIC [id number] / Implanted: Qty: 1 on 12/12/2016 by Eduardo Ruggiero MD Spine / Lumbar Medtronic Sofamor Danek 10cc Sprinal Graft Spine N/A: MEDTRONIC 2017 [id number] / Implanted: Qty: 1 on 12/12/2016 by Eduardo Ruggiero MD Spine [id number] / Lumbar Medtronic Sofamor Daek Orthoblend Small 10cc Spine N/A: MEDTRONIC 2017 [id number] / Implanted: Qty: 1 on 12/12/2016 by Eduardo Ruggiero MD Spine [id number] / Lumbar Medtronic Sofarmor Danek Orthoblend Small 10cc Spine N/A: MEDTRONIC [id number] / Implanted: Qty: 1 on 12/12/2016 by Eduardo Ruggiero MD Spine [id number] / Lumbar Screw Set Ti Ns Brk Off 5.5 - [id number] Spine N/A: MEDTRONIC:SPINAL [id number] / Implanted: Qty: 6 on 12/12/2016 by Eduardo Ruggiero MD Spine BIOLOGICS / Lumbar [id number] Screw Mas Cc 7.5x50 [id number] - [id number] Spine N/A: MEDTRONIC:SPINAL [id number] / Implanted: Qty: 2 on 12/12/2016 by Eduardo Ruggiero MD Spine BIOLOGICS / Lumbar [id number] Screw Mas Cc 7.5 X 45 [id number] - [id number] Spine N/A: MEDTRONIC:SPINAL [id number] / Implanted: Qty: 2 on 12/12/2016 by Eduardo Ruggiero MD Spine BIOLOGICS / Lumbar [id number] Results Not on fileafter 09/19/2017 Insurance Payer Benefit Plan / Subscriber ID Type Phone Address Group MEDICAID - MEDICAID [facility]AR xxxxxxxxx Medicaid Contracted [employer] CARE PLAN Advance Directives For more information, please contact:[address] [phone] Code Status Date Activated Date Inactivated Comments Full Code 11/29/2016 2:40 AM 12/25/2016 10:37 PM This code status was determined by: Patient Full Code 09/04/2014 12:28 PM 09/04/2014 6:40 PM This code status was determined by: Patient
--- OUTSIDE RECORDS SUMMARY | 2018-09-20 13:04 | XMS REPORT | Continuity of Care Document ---
:1960 Author Organization Interface Problems Problem Status Onset Classification Date Comments Source Date Reported MRSA<sup>1, 2, Active Problem 06/24/2016 Problem [facility] 3, 4</sup> 6 added by [facility] Expert. MARISEL COYLE Active [address] CAD - Coronary Resolved Problem 06/24/2016 [facility] artery disease [facility] Congestive Resolved Problem 06/24/2016 [facility] heart failure [facility] COPD Resolved Problem 06/24/2016 [facility] Diabetes Resolved Problem 06/24/2016 [facility] HTN (<span Resolved Problem 06/24/2016 [facility] ID="[id number] Medical 7">Confirmed</s Center [place]>) MRSA infection Resolved Problem 06/24/2016 [facility] ILLNESS, Active [facility] UNSPECIFIED [facility] Center Medications Medication Details Route Status Patient Ordering Order Source Instructions Provider Date clopidogrel 75 mg 75 mg=1 tab, Active [facility] oral tablet PO, Daily, 0 016 Medical Refill(s) [place] bisacodyl 10 mg 10 mg=1 Active [facility] rectal supp, [place], 016 Medical suppository Daily, PRN Center Constipation , 0 Refill(s) atorvastatin 40 40 mg=1 tab, Active [facility] mg oral tablet PO, Daily, 0 016 Medical Refill(s) Center amLODIPine 10 mg 10 mg=1 tab, Active [facility] oral tablet PO, Daily, 0 016 Medical Refill(s) [place] acetaminophen 325 650 mg=2 Active [facility] mg oral tablet tab, PO, 016 Medical Q6H, PRN Center Pain 1-3/Temp > 100.4 F, 0 Refill(s) tiotropium 18 Active [facility] microgram=1 016 Medical inhalation, Center INHALATION, RDaily, 0 Refill(s) ziprasidone 20 mg 20 mg=1 cap, Active [facility] oral capsule PO, BID, 0 016 Medical Refill(s) [place] Sucralfate 100 1 gm=10 mL, Active [place] MG/ML Oral PO, QID, 0 016 Medical Suspension Refill(s) [place] senna 8.6 mg oral 8.6 mg=1 Active [facility] tablet tab, PO, 016 Medical Daily, 0 Center Refill(s) polyethylene 17 gm, PO, Active [facility] glycol 3350 oral BID, 0 016 Medical powder for Refill(s) [place] reconstitution pantoprazole 40 40 mg=1 tab, Active [place] mg oral enteric PO, BID, 0 016 Medical coated tablet Refill(s) [place] Oxycodone 5 mg=1 tab, Active [facility] Hydrochloride 5 PO, Q6H, PRN 016 Medical MG Oral Tablet Pain Score Center 4-6, 0 Refill(s) metoprolol 25 mg=1 tab, Active [facility] tartrate 25 mg PO, Q12H, 0 016 Medical oral tablet Refill(s) [place] methocarbamol 500 1,000 mg=2 Active [facility] mg oral tablet tab, PO, 016 Medical Q8Hnow, 0 Center Refill(s) losartan 50 mg 50 mg=1 tab, Active [facility] oral tablet PO, Daily, 0 016 Medical Refill(s) [place] insulin detemir 10 unit, Active [facility] 100 units/mL SUB-Q, Q12H, 016 Medical subcutaneous 0 Refill(s) [place] solution Hydralazine 25 mg=1 tab, Active [facility] Hydrochloride 25 PO, Q6H-02, 016 Medical MG Oral Tablet 0 Refill(s) [place] gabapentin 100 MG 100 mg=1 Active [facility] Oral Capsule cap, PO, 016 Medical Daily, 0 Center Refill(s) doxazosin 4 mg 4 mg=1 tab, Active [facility] oral tablet PO, Daily, 0 016 Medical Refill(s) [place] donepezil 5 mg 10 mg=2 tab, Active [facility] oral tablet PO, Bedtime, 016 Medical 0 Refill(s) [place] Docusate Sodium 100 mg=1 Active [facility] [place] 100 MG Oral cap, PO, 016 Medical Capsule BID, 0 Center Refill(s) Aspirin 81 MG 81 mg=1 tab, Active [facility] Enteric Coated PO, Daily, 0 016 Medical Tablet Refill(s) Center Plavix 75 mg, 1 Inactive [facility] tab, Route: 016 Medical PO, Drug Center form: TAB, Daily, Dosing Weight 104.33, kg, Start date: 06/21/16 9:00:00 CDT, Duration: 30 day, Stop date: 07/20/16 9:00:00 CDTNotes: (Same As: Plavix) Aspirin 81 mg, 1 No Longer [facility] tab, Route: Active 016 Medical PO, Drug Center form: ECTAB, Daily, Dosing Weight 104.33, kg, Start date: 06/20/16 16:17:00 CDT, Duration: 30 day, Stop date: 07/20/16 9:00:00 CDT vancomycin 1 g See Active [facility] intravenous Instructions 016 Medical injection , infused Center over 60 minute, # 1 vial, 0 Refill(s) gabapentin 100 MG 100 mg, 1 Inactive [facility] Oral Capsule cap, Route: 016 Medical PO, Drug Center form: CAP, ONCE, Dosing Weight 104.33, kg, Start date: 06/19/16 17:40:00 CDT, Stop date: 06/19/16 17:40:00 CDTNotes: (Same as: Neurontin) Dilaudid 0.2 mg, 0.1 No Longer [facility] mL, Route: Active 016 Medical IVP, Drug Center form: INJ, Q4H, Dosing Weight 104.33, kg, PRN Pain Score 7-10, Start date: 06/19/16 17:37:00 CDT, Duration: 30 day, Stop date: 07/19/16 17:36:00 CDTNotes: Same as: Dilaudid Oxycodone 10 mg, 2 No Longer [facility] Hydrochloride 5 tab, Route: Active 016 Medical MG Oral Tablet PO, Drug Center form: TAB, Q6H, Dosing Weight 104.33, kg, PRN Pain Score 7-10, Start date: 06/19/16 17:36:00 CDT, Duration: 30 day, Stop date: 07/19/16 17:35:00 CDTNotes: (Same as: Roxicodone) vancomycin + 2 gm, Route: Inactive [facility] sodium chloride IVPB, ONCE, 016 Medical 0.9% 500 ml INJ Start date: Center 500 mL 06/19/16 15:00:00 CDT, Stop date: 06/19/16 15:00:00 CDTNotes: TIME CRITICAL MEDICATION (Same As: Vancocin) Infusion rate 2001 mg: infuse over 2.5 hours MEDICATION WASTE Product Size: 1000 mg Product Wasted: ___ mg hydrALAZINE 25 mg, 1 No Longer [facility] tab, Route: Active 016 Medical PO, Drug Center form: TAB, Q6H-02, Dosing Weight 104.33, kg, Priority: Routine, Start date: 06/17/16 12:00:00 CDT, Duration: 30 day, Stop date: 07/17/16 6:00:00 CDTNotes: (Same as: Apresoline) May interfere w/enteral feedings Take With Food. Protonix 80 mg, 2 No Longer [facility] tab, Route: Active 016 Medical PO, Drug Center form: ECTAB, BID, Dosing Weight 104.33, kg, Start date: 06/17/16 9:00:00 CDT, Duration: 30 day, Stop date: 07/16/16 17:00:00 CDTNotes: Tablet should not be chewed or crushed. (Same as: Protonix) Protonix 40 mg, 1 No Longer [facility] tab, Route: Active 016 Medical PO, Drug Center form: ECTAB, BID, Dosing Weight 104.33, kg, Start date: 06/16/16 17:00:00 CDT, Duration: 30 day, Stop date: 07/16/16 9:00:00 CDT vancomycin + 2 gm, Route: Inactive [facility] sodium chloride IVPB, ONCE, 016 Medical 0.9% 500 ml INJ Start date: Center 500 mL 06/16/16 14:30:00 CDT, Stop date: 06/16/16 14:30:00 CDTNotes: TIME CRITICAL MEDICATION (Same As: Vancocin) Infusion rate 2001 mg: infuse over 2.5 hours MEDICATION WASTE Product Size: 1000 mg Product Wasted: ___ mg gabapentin 100 MG 100 mg, 1 No Longer [facility] Oral Capsule cap, Route: Active 016 Medical PO, Drug Center form: CAP, Daily, Dosing Weight 104.33, kg, Start date: 06/16/16 11:46:00 CDT, Duration: 30 day, Stop date: 07/16/16 9:00:00 CDTNotes: (Same as: Neurontin) Cozaar 50 mg, 1 No Longer [facility] tab, Route: Active 016 Medical PO, Drug Center form: TAB, Daily, Dosing Weight 104.33, kg, Start date: 06/16/16 9:00:00 CDT, Duration: 30 day, Stop date: 07/15/16 9:00:00 CDTNotes: (Same as: Cozaar) Amlodipine 10 mg, 1 No Longer [facility] tab, Route: Active 016 Medical PO, Drug Center form: TAB, Daily, Dosing Weight 104.33, kg, Start date: 06/16/16 9:00:00 CDT, Duration: 30 day, Stop date: 07/15/16 9:00:00 CDTNotes: (Same as: Norvasc) sodium chloride 250 mL, No Longer [facility] 0.9% INJ 250 mL Rate: On [place] [address] Medical call for use Center with blood product administrati on, Dosing Weight 104.33, kg, Route: IV, Total Volume: 250, Start Date: 06/16/16 7:16:00 CDT, Duration: 1 doses or times, Stop date: 06/17/16 7:15:00 CDT, Replace Every: 24 hr Robaxin 1,000 mg, 2 No Longer [facility] tab, Route: Active 016 Medical PO, Drug Center form: TAB, Q8Hnow, Dosing Weight 104.33, kg, Start date: 06/16/16 0:00:00 CDT, Duration: 30 day, Stop date: 07/15/16 16:00:00 CDTNotes: (Same as:Robaxin) hydrALAZINE 50 mg, 1 No Longer [facility] tab, Route: Active 016 Medical PO, Drug Center form: TAB, Q6H-02, Dosing Weight 104.33, kg, Priority: Routine, Start date: 06/16/16 0:00:00 CDT, Duration: 30 day, Stop date: 07/15/16 18:00:00 CDTNotes: (Same as: Apresoline) May interfere w/enteral feedings Take With Food Levemir 10 unit, 0.1 No Longer [facility] mL, Route: Active 016 Medical SUB-Q, Drug Center form: INJ, Q12H, Dosing Weight 104.33, kg, Start date: 06/15/16 21:00:00 CDT, Duration: 30 day, Stop date: 07/15/16 9:00:00 CDTNotes: Same as Levemir Do not hold insulin without contacting prescriber WASTE: F/P - Black; E - Municipal Trash Bin "single patient use only" Vancomycin 1,500 mg, Inactive [facility] Route: IVPB, [facility] Drug form: [place] INJ, ONCE, Dosing Weight 104.33, kg, Start date: 06/15/16 17:17:00 CDT, Stop date: 06/15/16 17:17:00 CDT sodium chloride 250 mL, No Longer [facility] 0.9% 1000 ml INJ Rate: On [facility] 016 [facility] 250 mL call for use Center with blood product administrati on, Dosing Weight 104.33, kg, Route: IV, Total Volume: 250, Start Date: 06/15/16 0:25:00 CDT, Duration: 30 day, Stop date: 07/15/16 0:24:00 CDT, Replace Every: 24 hr Protonix 40 mg, No Longer [facility] Route: IVP, Active 016 Medical Drug form: [place] INJ, BID, Dosing Weight 104.33, kg, Start date: 06/14/16 17:00:00 CDT, Duration: 30 day, Stop date: 07/14/16 9:00:00 CDT Carafate 1 gm, 10 mL, No Longer [facility] Route: PO, Active 016 Medical Drug form: [place] SUSP, QID, Start date: 06/14/16 13:00:00 CDT, Duration: 14 day, Stop date: 06/28/16 9:00:00 CDT Lopressor 25 mg, 1 No Longer [facility] tab, Route: Active 016 Medical PO, Drug Center form: TAB, Q12H, Dosing Weight 104.33, kg, Start date: 06/14/16 9:55:00 CDT, Duration: 30 day, Stop date: 07/14/16 9:00:00 CDTNotes: (Same as: Lopressor) Doxazosin 4 mg, 1 tab, No Longer [facility] Route: PO, Active 016 Medical Drug form: [place] TAB, Daily, Dosing Weight 104.33, kg, Start date: 06/14/16 9:00:00 CDT, Duration: 30 day, Stop date: 07/13/16 9:00:00 CDTNotes: (Same as: Maricarmen) Sodium Chloride 100 mL, No Longer [facility] 0.154 MEQ/ML Rate: [address] [place] [address] Medical Injectable ml/hr, [place] Solution Infuse over: 10 hr, Route: IVPB, Dosing Weight 104.33 kg, Total Volume: 100, Infuse at 8 mg / hr for 72 hours for GI bleeding, Start date: 06/13/16 21:35:00 CDT, Duration: 72 hr, Stop date: 06/16/16 21:34:00 CDT Metoclopramide 5 5 mg, 1 tab, No Longer [facility] MG Oral Tablet Route: PO, Active 016 Medical [Reglan] Drug form: [place] TAB, Before Meals & Bedtime, Dosing Weight 104.33, kg, Start date: 06/13/16 21:00:00 CDT, Duration: 30 day, Stop date: 07/13/16 16:30:00 CDTNotes: (Same as: Reglan) magnesium citrate 300 ml, Inactive [facility] Route: PO, 016 Medical Drug Form: [place] LIQ, Dosing Weight 104.33, kg, ONCE, Start date: 06/13/16 19:55:00 CDT, Stop date: 06/13/16 19:55:00 CDTNotes: (Same as: Citrate of Magnesia) SMOG Enema 300 ml, No Longer [facility] Route: MO, Active Medical Drug Form: Center TONIA, Dosing Weight 104.33, kg, ONCE, Start date: 06/13/16 19:54:00 CDT, Duration: 1 doses or times, Stop date: 06/13/16 19:54:00 CDTNotes: Non formulary item Cardura 2 mg, 1 tab, Inactive [facility] Route: PO, Medical Drug form: [place] TAB, ONCE, Start date: 06/13/16 15:22:00 CDT, Stop date: 06/13/16 15:22:00 CDTNotes: (Same as: Cardura) Vancomycin 1.5 gm, Inactive [facility] Route: IVPB, [address] [place] [address] ONCE, Dosing Center Weight 104.33, kg, Start date: 06/13/16 3:57:00 CDT, Stop date: 06/13/16 3:57:00 CDTNotes: TIME CRITICAL MEDICATION (Same As: Vancocin) Infusion rate 2001 mg: infuse over 2.5 hours MEDICATION WASTE Product Size: 1000 mg Product Wasted: ___ mg Phenergan 12.5 mg, 0.5 No Longer [facility] mL, Route: Active [facility] IVPB, Drug Center form: INJ, Q6H, PRN Nausea, Start date: 06/13/16 3:11:00 CDT, Duration: 30 day, Stop date: 07/13/16 3:10:00 CDTNotes: Do not give IV push. (Same as: Phenergan) Compazine 5 mg, Route: Inactive [facility] IV, Q3H, 016 Medical Dosing Center Weight 104.33, kg, PRN Nausea & Vomiting, Start date: 06/13/16 2:02:00 CDT, Duration: 30 day, Stop date: 07/13/16 2:01:00 CDT Doxazosin 2 mg, 1 tab, No Longer [facility] Route: PO, Active 016 Medical Drug form: Center TAB, Daily, Dosing Weight 104.33, kg, Start date: 06/12/16 10:30:00 CDT, Duration: 30 day, Stop date: 07/12/16 9:00:00 CDTNotes: (Same as: Maricarmen) Dilaudid 0.2 mg, 0.1 No Longer [facility] mL, Route: Active 016 Medical IVP, Drug Center form: INJ, Q4H, Dosing Weight 104.33, kg, PRN Pain Score 7-10, Start date: 06/12/16 10:19:00 CDT, Duration: 30 day, Stop date: 07/12/16 10:18:00 CDTNotes: Same as: Dilaudid hydrALAZINE 50 mg, 1 No Longer [facility] tab, Route: Active 016 Medical PO, Drug Center form: TAB, Q6H-02, Dosing Weight 104.33, kg, Priority: Routine, Start date: 06/10/16 12:30:00 CDT, Duration: 30 day, Stop date: 07/10/16 6:30:00 CDTNotes: (Same as: Apresoline) May interfere w/enteral feedings Take With Food vancomycin 1 gm, Route: Inactive [facility] IVPB, Drug [facility] Medical form: INJ, Center ONCE, Start date: 06/10/16 2:30:00 CDT, Stop date: 06/10/16 2:30:00 CDTNotes: TIME CRITICAL MEDICATION (Same As: Vancocin) Infusion rate 2001 mg: infuse over 2.5 hours MEDICATION WASTE Product Size: 1000 mg Product Wasted: ___ mg hydrALAZINE 25 mg 25 mg, 1 Inactive [facility] oral tablet tab, Route: 016 Medical PO, Drug Center form: TAB, Q6H-02, Dosing Weight 104.33, kg, Priority: Routine, Start date: 06/10/16 0:30:00 CDT, Duration: 30 day, Stop date: 07/09/16 18:30:00 CDTNotes: (Same as: Apresoline) May interfere w/enteral feedings Take With Food. vancomycin + 750 mg, Inactive [facility] sodium chloride Route: IVPB, 016 Medical [...] With Food. vancomycin 1 gm, Route: Inactive [facility] IVPB, Drug 016 Medical form: INJ, Center ONCE, Start date: 06/08/16 13:00:00 CDT, Stop date: 06/08/16 13:00:00 CDTNotes: TIME CRITICAL MEDICATION (Same As: Vancocin) Infusion rate 2001 mg: infuse over 2.5 hours MEDICATION WASTE Product Size: 1000 mg Product Wasted: ___ mg Geodon 20 mg, 1 No Longer [facility] cap, Route: Active 016 Medical PO, [...] as:Robaxin) Robaxin 500 mg, 1 No Longer [facility] tab, Route: Active 016 Medical PO, Drug Center form: TAB, Q8H, Dosing Weight 104.33, kg, Priority: NOW, Start date: 06/07/16 22:02:00 CDT, Duration: 30 day, Stop date: 07/07/16 22:00:00 CDTNotes: (Same as:Robaxin) Milk of Magnesia 60 ml, Inactive [facility] Route: PO, 016 Medical Drug Form: [place] SUSP, Dosing Weight 104.33, kg, ONCE, Start date: 06/07/16 19:09:00 CDT, Stop date: 06/07/16 19:09:00 CDTNotes: (Same as: Milk of Magnesia, MOM) heparin 5,000 unit, No Longer [facility] 1 mL, Route: Active 016 Medical SUB-Q, Drug Center form: INJ, Q8H, Dosing Weight 104.33, kg, Start date: 06/07/16 16:00:00 CDT, Duration: 30 day, Stop date: 07/07/16 8:00:00 CDTNotes: porcine heparin molasses 240 mL, Inactive [facility] Route: MO, 016 Medical Drug Form: [place] SYRP, Dosing Weight 104.33, kg, ONCE, Milk of Molasses Enema, Start date: 06/07/16 10:36:00 CDT, Duration: 1 doses or times, Stop date: 06/07/16 10:36:00 CDTNotes: (Same as:Molasses) Oxycodone 5 mg, 1 tab, No Longer [facility] Hydrochloride 5 Route: PO, Active 016 Medical MG Oral Tablet Drug form: [place] TAB, Q6H, Dosing Weight 104.33, kg, PRN Pain Score 4-6, Start date: 06/07/16 10:15:00 CDT, Duration: 30 day, Stop date: 07/07/16 10:14:00 CDTNotes: (Same as: Roxicodone) sennosides, CUSTODIAL 8.6 mg, 1 No Longer [facility] tab, Route: Active 016 Medical PO, Drug Center Form: TAB, Dosing Weight 104.33, kg, Daily, Start date: 06/07/16 9:00:00 CDT, Duration: 30 day, Stop date: 07/06/16 9:00:00 CDTNotes: (Same as: Isaiahot) lurasidone 80 mg, No Longer [facility] Route: PO, Active 016 Medical Drug form: Center TAB, Daily, Dosing Weight 104.33, kg, Start date: 06/07/16 9:00:00 CDT, Duration: 30 day, Stop date: 07/06/16 9:00:00 CDT atorvastatin 40 mg, 1 No Longer [facility] tab, Route: Active 016 Medical PO, Drug Center form: TAB, Daily, Dosing Weight 104.33, kg, Start date: 06/07/16 9:00:00 CDT, Duration: 30 day, Stop date: 07/06/16 9:00:00 CDTNotes: (Same as: Lipitor) Amlodipine 10 mg, 1 No Longer [facility] tab, Route: Active 016 Medical PO, Drug Center form: TAB, Daily, Dosing Weight 104.33, kg, Start date: 06/07/16 9:00:00 CDT, Duration: 30 day, Stop date: 07/06/16 9:00:00 CDTNotes: (Same as: [place]) Levemir 5 unit, 0.05 No Longer [facility] mL, Route: Active 016 Medical SUB-Q, Drug Center form: INJ, Bedtime, Dosing Weight 104.33, kg, Start date: 06/06/16 21:00:00 CDT, Stop date: 07/05/16 21:00:00 CDTNotes: Same as Levemir Do not hold insulin without contacting prescriber WASTE: F/P - Black; E - Municipal Trash Bin "single patient use only" Geodon 40 mg, 1 No Longer [facility] cap, Route: Active 016 Medical PO, Drug Center form: CAP, Bedtime, Dosing Weight 104.33, kg, Start date: 06/06/16 21:00:00 CDT, Duration: 30 day, Stop date: 07/05/16 21:00:00 CDT donepezil 10 mg, 2 No Longer [facility] tab, Route: Active 016 Medical PO, Drug Center form: TAB, Bedtime, Dosing Weight 104.33, kg, Start date: 06/06/16 21:00:00 CDT, Duration: 30 day, Stop date: 07/05/16 21:00:00 CDTNotes: (Same as: Aricept) Furosemide 40 MG 40 mg=1 tab, No Longer [facility] Oral Tablet PO, [address] [facility] Medical Refill(s) [place] Humulin 70/30 Pen SUB-Q, 0 No Longer [facility] Refill(s) [address] terazosin 2 mg 2 mg=1 cap, No Longer [facility] oral capsule PO, [address] [facility] Medical Refill(s) [place] 3 ML Insulin 6 unit, No Longer [facility] Lispro 100 UNT/ML SUB-Q, # [address] [place] [address] Pen Injector mL, 0 Center [Humalog] Refill(s) vancomycin + 750 mg, Inactive [facility] sodium chloride Route: IVPB, [address] [place] [address] 0.9% 250 mL INJ , Center (for IV set) 250 Start date: mL 06/06/16 18:00:00 CDT, Duration: 30 day, Stop date: 07/06/16 16:00:00 CDTNotes: TIME CRITICAL MEDICATION (Same As: Vancocin) Infusion rate 2001 mg: infuse over 2.5 hours MEDICATION WASTE Product Size: 1000 mg Product Wasted: ___ mg Docusate Sodium 100 mg, 1 Inactive [facility] 100 MG Oral cap, Route: [facility] Medical Capsule [Colace] PO, BID, Center Dosing Weight 104.33, kg, Start date: 06/06/16 17:00:00 CDT, Duration: 30 day, Stop date: 07/06/16 9:00:00 CDT Miralax 17 gm, 1 No Longer [facility] pkt, Route: Active [facility] Medical PO, Drug Center form: PWDR, BID, Dosing Weight 104.33, kg, Start date: 06/06/16 17:00:00 CDT, Duration: 30 day, Stop date: 07/06/16 9:00:00 CDTNotes: Dissolve in 8 oz of water or juice. (Same as: Miralax) Docusate 100 mg, 1 No Longer [facility] cap, Route: Active 016 Medical PO, Drug Center form: CAP, BID, Dosing Weight 104.33, kg, Start date: 06/06/16 17:00:00 CDT, Duration: 30 day, Stop date: 07/06/16 9:00:00 CDTNotes: (Same as: Colace) (Do Not Crush) ranolazine 1,000 mg, 2 No Longer [facility] tab, Route: Active 016 Medical PO, Drug Center form: TAB, BID, Dosing Weight 104.33, kg, Start date: 06/06/16 17:00:00 CDT, Duration: 30 day, Stop date: 07/06/16 9:00:00 CDT Cozaar 100 mg, 2 No Longer [facility] tab, Route: Active 016 Medical PO, Drug Center form: TAB, Daily, Dosing Weight 104.33, kg, Start date: 06/06/16 17:00:00 CDT, Duration: 30 day, Stop date: 07/06/16 9:00:00 CDTNotes: (Same as: Cozaar) vancomycin + 2,250 mg, Inactive [facility] sodium chloride Route: IVPB, [facility] Medical 0.9% 500 mL INJ ONCE, [place] (for IV set) 500 Priority: mL Routine, Start date: 06/06/16 17:00:00 CDT, Stop date: 06/06/16 17:00:00 CDTNotes: TIME CRITICAL MEDICATION (Same As: Vancocin) Infusion rate 2001 mg: infuse over 2.5 hours MEDICATION WASTE Product Size: 1000 mg Product Wasted: ___ mg Acetaminophen 325 1 tab, No Longer [facility] MG / Hydrocodone Route: PO, Active [facility] Medical Bitartrate 5 MG Drug Form: Center Oral Tablet TAB, Dosing [[place] 5/325] Weight 104.33, kg, Q4H, PRN Pain Score 4-6, Start date: 06/06/16 16:23:00 CDT, Duration: 30 day, Stop date: 07/06/16 16:22:00 CDTNotes: (Same as: [place] 325/5) Do not exceed 4gm/day of acetaminophe n. Tylenol 650 mg, 2 No Longer [facility] tab, Route: Active 016 Medical PO, [...] As: Ultram) meropenem 500 mg, No Longer [facility] Route: IVPB, Active 016 Medical Drug form: Center PDR/INJ, [id number], Dosing Weight 104.33, kg, CrCL=Notes: Same as [place] MEDICATION WASTE Product Size: 500 mg Product Wasted: ___ mg Plavix 75 mg, 1 No Longer [facility] tab, Route: Active 016 Medical PO, Drug Center form: TAB, Daily, Dosing Weight 104.33, kg, Start date: 06/06/16 14:23:00 CDT, Duration: 30 day, Stop date: 07/06/16 9:00:00 CDTNotes: (Same As: Plavix) Aspirin 325 mg, 1 No Longer [facility] tab, Route: Active 016 Medical PO, Drug Center form: TAB, Daily, Dosing Weight 104.33, kg, Start date: 06/06/16 14:23:00 CDT, Duration: 30 day, Stop date: 07/06/16 9:00:00 CDTNotes: Take with food. Adenosine 6 mg, Route: Inactive [facility] IV, ONCE, 016 Medical Dosing Center Weight 104.33, kg, Start date: 06/06/16 14:19:00 CDT, Stop date: 06/06/16 14:19:00 CDT Adenosine 6 mg, Route: Inactive [facility] IV, ONCE, 016 Medical Dosing Center Weight 104.33, kg, Start date: 06/06/16 14:17:00 CDT, Stop date: 06/06/16 14:17:00 CDT Morphine 2 mg, 1 mL, No Longer [facility] Route: IV, Active Medical Drug form: Center INJ, Q6H, Dosing Weight 104.33, kg, PRN as needed for chest pain, Start date: 06/06/16 14:00:00 CDT, Duration: 30 day, Stop date: 07/06/16 13:59:00 CDTNotes: (Same as:MORPhine Sulfate) metoprolol 25 mg, Inactive [facility] tartrate Route: PO, Medical Drug form: [place] TAB, ONCE, Dosing Weight 104.33, kg, Start date: 06/06/16 13:59:00 CDT, Stop date: 06/06/16 13:59:00 CDT vancomycin + 1.5 gm, Inactive [facility] sodium chloride Route: IVPB, [facility] Medical 0.9% INJ 250 mL ONCE, Start Center date: 06/06/16 11:12:00 CDT, Stop date: 06/06/16 11:12:00 CDTNotes: TIME CRITICAL MEDICATION (Same As: Vancocin) Infusion rate 2001 mg: infuse over 2.5 hours MEDICATION WASTE Product Size: 1000 mg Product Wasted: ___ mg Ceftazidime 1 gm, Route: Inactive [facility] IVPB, Drug 016 Medical form: Center PDR/INJ, [id number], Dosing Weight 104.33, kg, Start date: 06/06/16 11:00:00 CDT, Duration: 30 day, Stop date: 07/05/16 11:00:00 CDTNotes: (Same as: [place]) MEDICATION WASTE Product Size: 1000 mg Product Wasted: 0 mg venlafaxine 300 mg, 2 No Longer [facility] [facility], Route: Active 016 Medical PO, Drug Center form: ERCAP, Daily, Dosing Weight 104.33, kg, Start date: 06/06/16 11:00:00 CDT, Duration: 30 day, Stop date: 07/06/16 9:00:00 CDT tiotropium 18 No Longer [facility] microgram, [address] [place] [address] inhalation, Center Route: INHALATION, Drug form: CAP, RDaily, Dosing Weight 104.33, kg, Start date: 06/06/16 11:00:00 CDT, Duration: 30 day, Stop date: 07/06/16 8:00:00 CDTNotes: (Same As: Spiriva) Lopressor 50 mg, 1 No Longer [facility] tab, Route: Active 016 Medical PO, Drug Center form: TAB, Q12H, Dosing Weight 104.33, kg, Start date: 06/06/16 11:00:00 CDT, Duration: 30 day, Stop date: 07/06/16 9:00:00 CDTNotes: (Same as: Lopressor) Losartan 100 mg, 1 Inactive [facility] tab, Route: 016 Medical PO, Drug Center form: TAB, Daily, Dosing Weight 104.33, kg, Start date: 06/06/16 11:00:00 CDT, Duration: 30 day, Stop date: 07/06/16 9:00:00 CDTNotes: (Same as: Cozaar) Dulcolax Laxative 10 mg, 1 No Longer [facility] supp, Route: Active 016 [facility] [place], Drug Center form: SUPP, Daily, Dosing Weight 104.33, kg, PRN Constipation , Start date: 06/06/16 10:50:00 CDT, Duration: 30 day, Stop date: 07/06/16 10:49:00 CDTNotes: (Same As: Dulcolax, [place]isco-Lax) Insulin, Aspart, 10 unit, 0.1 No Longer [facility] Human mL, Route: Active 016 Medical [...] __Date Glucagon 1 mg, Route: No Longer [facility] IM, Drug Active 016 Medical form: Center PDR/INJ, PRN, Dosing Weight 104.33, kg, PRN Blood Glucose Results, Start date: 06/06/16 9:41:00 CDT, Duration: 30 day, Stop date: 07/06/16 9:40:00 CDT Dextrose 50% 25 gm, 50 No Longer [facility] Syringe mL, Route: Active 016 Medical IVP, Drug Center Form: INJ, Dosing Weight 104.33, kg, PRN, PRN Blood Glucose Results, Start date: 06/06/16 9:41:00 CDT, Duration: 30 day, Stop date: 07/06/16 9:40:00 CDT Ondansetron 4 mg, 2 mL, No Longer [facility] Route: IVP, Active 016 Medical Drug form: Center INJ, Q6H, Dosing Weight 104.33, kg, PRN Nausea & Vomiting, Start date: 06/06/16 9:39:00 CDT, Duration: 30 day, Stop date: 07/06/16 9:38:00 CDTNotes: (Same as: [place]) MEDICATION WASTE Product Size: 4 mg Product Wasted: _0__ mg venlafaxine 300 mg, PO, No Longer [facility] Daily, 0 Active 016 Medical Refill(s) Center donepezil 10 mg, PO, No Longer [facility] Bedtime, 0 Active 016 Medical Refill(s) Center clopidogrel 75 MG 75 mg=1 tab, No Longer [facility] Oral Tablet PO, Daily, 0 Active 016 Medical [Plavix] Refill(s) Center Levemir 22 unit, No Longer [facility] SUB-Q, 0 Active 016 Medical Refill(s) Center cholecalciferol 1,000 No Longer [facility] IntlUnit, 0 Active 016 Medical Refill(s) [place] Aspirin 325 mg, 0 No Longer [facility] Refill(s) Active 016 [facility] Center atorvastatin 40 mg, PO, No Longer [facility] Daily, 0 Active 016 Medical Refill(s) Center Amlodipine 10 mg, PO, No Longer [facility] Daily, 0 Active 016 Medical Refill(s) [place] tiotropium 18 No Longer [facility] microgram, Active 016 Medical INHALATION, Center Daily, 0 Refill(s) Prenavite FC oral 1 tab, PO, No Longer [facility] tablet Daily, 0 Active 016 Medical Refill(s) [place] losartan 100 mg 100 mg=1 No Longer [facility] oral tablet tab, PO, Active 016 Medical Daily, 0 Center Refill(s) Lorazepam 2 mg, PO, No Longer [facility] Q---Sa, Active 016 Medical 0 Refill(s) [place] Insulin, Aspart, 8 unit, No Longer [facility] Human SUB-Q, Active 016 Medical TID-Before [place] Meals, 0 Refill(s) Nitroglycerin 0.4 mg, SL, No Longer [facility] Q5Min, PRN Active 016 Medical as needed Center for chest pain, 0 Refill(s) lurasidone 80 mg 80 mg=1 tab, No Longer [facility] oral tablet PO, Daily, 0 Active 016 Medical Refill(s) [place] metoprolol 50 mg=1 tab, No Longer [facility] tartrate 50 mg PO, BID, # Active 016 Medical oral tablet 180 tab, 0 Center Refill(s) 12 HR ranolazine 1,000 mg=1 No Longer [facility] 1000 MG Extended tab, PO, Active 016 Medical Release Tablet BID, # 60 Center tab, 0 Refill(s) Pramipexole 0.25 mg=1 No Longer [facility] dihydrochloride tab, PO, Active 016 Medical 0.25 MG Oral Daily, 0 [place] Tablet [Mirapex] Refill(s) Geodon 40 mg, PO, No Longer [facility] Daily, 0 Active 016 Medical Refill(s) [place] Sodium Chloride 1,000 mL, Inactive [facility] 0.154 MEQ/ML 1,000 ml/hr, 016 Medical Injectable Infuse Over: [place] Solution 1 hr, Route: IV, ONCE, Priority: STAT, Dosing Weight 104.33 kg, Start date: 06/06/16 5:34:00 CDT, Duration: 1 doses or times, Stop date: 06/06/16 5:34:00 CDT Albuterol 0.833 9 mL, Route: Inactive [facility] MG/ML / NEB, Drug 016 Medical Ipratropium Form: SOLN, [place] 0.167 Dosing MG/ML Inhalant Weight Solution [DuoNeb] [...] Phosphorus 2.0 mg/dL 2.5 - 4.5 06/21 [facility] CHEM PANEL eGFR 38 06/21 Result Comment: The eGFR is calculated using the CKD-EPI formula. In most young, healthy individuals the eGFR will be >90 mL/ min/1.73m2. The eGFR declines with age. An eGFR of 60-89 may be normal in [facility] mL/min/1. /2015 some populations, particularly the elderly, for whom the CKD-EPI formula has not been extensively validated. Use of the eGFR is not recommended in the following populations: [address] Individuals with unstable creatinine concentrations, including [...] PANEL AGAP 11.7 meq/L 10.0 - 06/21 [facility] 20.0 [facility] CHEM PANEL CO2 26 meq/L 24 - 32 06/21 [facility] CHEM PANEL Calcium Lvl 7.8 mg/dL 8.5 - 10.5 06/21 [facility] CHEM PANEL Chloride Lvl 99 meq/L 95 - 109 06/21 [facility]2015 [facility] CHEM PANEL Creatinine 1.89 mg/dL 0.50 - 06/21 [facility] Lvl 1.40 [facility] CHEM PANEL Potassium Lvl 3.7 meq/L 3.5 - 5.1 06/21 2015 [facility] CHEM PANEL Sodium Lvl 133 meq/L 135 - 145 06/21 2015 [facility] CHEM PANEL Glucose Lvl 125 mg/dL 70 - 99 06/21 2015 [facility] CHEM PANEL BUN 23 mg/dL 06/[address] CHEM PANEL Magnesium Lvl 2.0 mg/dL 1.8 - 2.4 06/21 [facility]2015 [facility] TOXICOLOGY Vanco Lvl 21.1 ug/ml 06/[address] TOXICOLOGY Vanco Lvl 31.4 ug/ml 06/[address] CHEM PANEL BUN 35 mg/dL 06/[address] CHEM PANEL Creatinine 3.30 mg/dL 0.50 - 06/19 [facility] Lvl 1.40 [facility] CHEM PANEL Chloride Lvl 95 meq/L 95 - 109 06/[address] CHEM PANEL Potassium Lvl 4.4 meq/L 3.5 - 5.1 06/[address] CHEM PANEL Glucose Lvl 137 mg/dL 70 - 99 06/[address] CHEM PANEL Sodium Lvl 128 meq/L 135 - 145 06/19 [facility]2015 [facility] CHEM PANEL eGFR 20 06/19 Result Comment: The eGFR is calculated using the CKD-EPI formula. In most young, healthy individuals the eGFR will be >90 mL/ min/1.73m2. The eGFR declines with age. An eGFR of 60-89 may be normal in [facility] mL/min/1. some populations, particularly the elderly, for whom the CKD-EPI formula has not been extensively validated. Use of the eGFR is not recommended in the following populations: [address] Individuals with unstable creatinine concentrations, including [...] CO2 21 meq/L 24 - 32 06/19 [facility] CHEM PANEL Calcium Lvl 8.2 mg/dL 8.5 - 10.5 06/19 [facility] CHEM PANEL AGAP 16.4 meq/L 10.0 - 06/19 20.0 [facility] HEMATOLOGY MCH 29.1 pg 27.0 - 06/19 [place] 31.0 [facility] HEMATOLOGY MCV 86.5 fL 80.0 - 06/19 [place] 94.0 [facility] HEMATOLOGY Hct 22.1 % 42.0 - 06/19 54.0 [facility] HEMATOLOGY Hgb 7.4 g/dL 14.0 - 06/19 18.0 [facility] HEMATOLOGY RBC 2.56 M/CMM 4.70 - 06/19 [place] 6.10 [facility] HEMATOLOGY WBC 22.6 K/CMM 3.7 - 10.4 06/19 [facility] HEMATOLOGY RDW 14.5 % 11.5 - 06/19 14. [facility] HEMATOLOGY MCHC 33.7 g/dL 32.0 - 06/19 [place] 36.0 [facility] HEMATOLOGY Platelet 387 K/CMM 133 - 450 06/19 [facility] HEMATOLOGY MPV 8.3 fL 7.4 - 10.4 06/19 [facility] HEMATOLOGY Lymphocytes 7.8 % 20.0 - 06/19 [place] 40.0 [facility] HEMATOLOGY Segs 84.0 % 45.0 - 06/19 [place] 75.0 [facility] HEMATOLOGY Basophils # 0.1 K/CMM 0.0 - 0.2 06/19 [facility] HEMATOLOGY Monocytes # 1.5 K/CMM 0.0 - 0.8 06/19 [facility] HEMATOLOGY Lymphocytes # 1.8 K/CMM 1.0 - 5.5 06/19 [facility] HEMATOLOGY Eosinophils # 0.2 K/CMM 0.0 - 0.5 06/19 [facility] HEMATOLOGY Monocytes 6.8 % 2.0 - 12.0 06/19 [facility] HEMATOLOGY Segs-Bands # 18.9 K/CMM 1.5 - 8.1 06/19 [facility] HEMATOLOGY Basophils 0.4 % 0.0 - 1.0 06/19 [facility] HEMATOLOGY Eosinophils 1.0 % 0.0 - 4.0 06/19 [facility] TOXICOLOGY Vanco Lvl 16.5 ug/ml 06/19 [facility] ELECTROLYTE AGAP 11.8 meq/L 10.0 - 06/17 [facility] 20.0 [facility] ELECTROLYTE eGFR 33 06/17 Result Comment: The eGFR is calculated using the CKD-EPI formula. In most young, healthy individuals the eGFR will be >90 mL/ min/1.73m2. The eGFR declines with age. An eGFR of 60-89 may be normal in [facility] mL/min/1. some populations, particularly the elderly, for whom the CKD-EPI formula has not been extensively validated. Use of the eGFR is not recommended in the following populations: [address] Individuals with unstable creatinine concentrations, including [...] ELECTROLYTE BUN 30 mg/dL 7 - 06/17 [facility] ELECTROLYTE Glucose Lvl 85 mg/dL 70 - 99 06/17 [facility] ELECTROLYTE Chloride Lvl 100 meq/L 95 - 109 06/17 [facility] ELECTROLYTE Potassium Lvl 3.8 meq/L 3.5 - 5.1 06/17 [facility] ELECTROLYTE CO2 28 meq/L 24 - 32 06/17 [facility]2015 [facility] ELECTROLYTE Creatinine 2.17 mg/dL 0.50 - 06/17 [facility] Lvl 1.40 [facility] ELECTROLYTE Sodium Lvl 136 meq/L 135 - 145 06/17 [facility] ELECTROLYTE Calcium Lvl 8.3 mg/dL 8.5 - 10.5 06/17 [facility] S [facility] HEMATOLOGY RBC 2.61 M/CMM 4.70 - 06/17 6.10 [facility] HEMATOLOGY MCHC 33.7 g/dL 32.0 - 06/17 36.0 [facility] HEMATOLOGY RDW 14.4 % 11.5 - 06/17 14. [facility] HEMATOLOGY Platelet 331 K/CMM 133 - 450 06/17 [facility] HEMATOLOGY MPV 8.7 fL 7.4 - 10.4 06/17 [facility] HEMATOLOGY Hgb 7.5 g/dL 14.0 - 06/17 18.0 [facility] HEMATOLOGY Hct 22.2 % 42.0 - 06/17 54.0 [facility] HEMATOLOGY MCV 85.3 fL 80.0 - 06/17 94.0 [facility] HEMATOLOGY MCH 28.8 pg 27.0 - 06/17 31.0 [facility] HEMATOLOGY WBC 19.1 K/CMM 3.7 - 10.4 06/17 [facility] HEMATOLOGY Eosinophils # 0.1 K/CMM 0.0 - 0.5 06/17 [facility] HEMATOLOGY Monocytes # 1.6 K/CMM 0.0 - 0.8 06/17 [facility] HEMATOLOGY Lymphocytes # 1.6 K/CMM 1.0 - 5.5 06/17 [facility] HEMATOLOGY Segs-Bands # 15.8 K/CMM 1.5 - 8.1 06/17 [facility] HEMATOLOGY Basophils 0.4 % 0.0 - 1.0 06/17 [facility] HEMATOLOGY Basophils # 0.1 K/CMM 0.0 - 0.2 06/17 [facility] HEMATOLOGY Segs 82.3 % 45.0 - 06/17 75.0 [facility] HEMATOLOGY Eosinophils 0.5 % 0.0 - 4.0 06/17 [facility] HEMATOLOGY Monocytes 8.6 % 2.0 - 12.0 06/17 [facility] HEMATOLOGY Lymphocytes 8.2 % 20.0 - 06/17 40.0 [facility] BLOOD BANK RBC product Product available 06/16 [facility] (06/16/16 7:16 AM) [place] HEMATOLOGY Polychrom slight 06/16 [facility] HEMATOLOGY Plt Morph Normal 06/16 Medical (06/16/16 4:18 AM) [place] HEMATOLOGY Atypical 0.0 % <=0.0 % 06/16 [facility] Lymph [facility] HEMATOLOGY Monocytes 5.0 % 2.0 - 12.0 06/16 [facility] HEMATOLOGY Metamyelocyte 1.0 % 0.0 - 1.0 06/16 [facility] s [facility] HEMATOLOGY Lymphocytes 5.0 % 20.0 - 06/16 [place] 40.0 [facility] HEMATOLOGY Monocytes # 1.5 K/CMM 0.0 - 0.8 06/16 [facility] HEMATOLOGY Segs 87.0 % 45.0 - 06/16 [place] 75.0 [facility] HEMATOLOGY Bands 2.0 % 0.0 - 11.0 06/16 [facility] HEMATOLOGY Lymphocytes # 1.5 K/CMM 1.0 - 5.5 06/16 [facility] HEMATOLOGY Segs-Bands # 26.3 K/CMM 1.5 - 8.1 06/16 [facility] HEMATOLOGY Platelet 338 K/CMM 133 - 450 06/16 [facility] HEMATOLOGY MCHC 32.6 g/dL 32.0 - 06/16 [place] 36.0 [facility] HEMATOLOGY MPV 8.4 fL 7.4 - 10.4 06/16 [facility] HEMATOLOGY RDW 14.4 % 11.5 - 06/16 14.5 [facility] HEMATOLOGY MCV 84.7 fL 80.0 - 06/16 94.0 [facility] HEMATOLOGY Hct 20.7 % 42.0 - 06/16 [place] 54.0 2016 [facility] HEMATOLOGY Hgb 6.8 g/dL 14.0 - 06/16 Result [facility] 18. Comment: [facility] Result(s) called to tristan dubon at 06/16/2016 05:01_ by_aa. Read back OK. HEMATOLOGY RBC 2.44 M/CMM 4.70 - 06/16 [place] 6.10 [facility] HEMATOLOGY MCH 27.6 pg 27.0 - 06/16 [place] 31.0 [facility] HEMATOLOGY WBC 29.5 K/CMM 3.7 - 10.4 06/16 [facility] /2015 [facility] CVC insert CVC insert STUDY: VIR CV Catheter Placement Tunneled 06/15 - [facility] tunnel tunnel w/-w/o /2015 - Medical w/-w/o port/pump age This report was dictated by a Neurophysiological Technician /Fellow. I have personally reviewed the images [...] ultrasound and fluoroscopic guided placement of a16 [place] 23 cm to tip hemodialysis catheter into the right internal jugular vein. 2. Moderate sedation FRICKERTRON CHECKER: Vincent Gamino CARPET CLEANER(S): Dr. Bravo CONSENT: Written consent obtained after [...] jugular vein. 2. Successful placement of 16 [place] 23 cm right internal jugular vein hemodialysis catheter. COMPLICATIONS: None ESTIMATED BLOOD LOSS: None FLUOROSCOPIC TIME: 0.3 minutes RADIATION DOSE: 6 mGy CONTRAST VOLUME: None IMPRESSION: Successful ultrasound and fluoroscopic guided placement of a right internal jugular vein 16 [place] tunneled 23 cm cuff to tip hemodialysis catheter. The line is ready for immediate use. PLAN/FOLLOW UP: None Dr. Bravo, IR Attending, was present for the procedure. BLOOD BANK RBC product Product available 06/15 [facility] (06/15/16 12:25 AM) Center IMMUNOLOGY H pylori IgG 0.7 06/15 [facility] unit/mL [facility] CHEM PANEL Lactic Acid 1.7 mMol/L 0.5 - 2.2 06/14 [facility] CHEM PANEL Procalcitonin 1.04 ng/mL 0.00 - 06/14 [facility] 0. [facility] CHEM PANEL Phosphorus 4.6 mg/dL 2.5 - 4.5 06/14 [facility] CHEM PANEL Procalcitonin 1.04 ng/mL 0.00 - 06/14 [facility] 0. [facility] HEMATOLOGY Metamyelocyte 2.0 % 0.0 - 1.0 06/14 [facility] s [facility] HEMATOLOGY Bands 1.0 % 0.0 - 11.0 06/14 [facility] HEMATOLOGY Tot Cell Ct 200 06/14 [facility] HEMATOLOGY Plt Morph Normal 06/14 [facility] (06/14/16 2:21 AM) [place] HEMATOLOGY RBC Morph Normal 06/14 [facility] (06/14/16 2:21 AM) [place] HEMATOLOGY Atypical 0.0 % <=0.0 % 06/14 [facility] Lymphs [facility] BLOOD BANK ABO/Rh O POS 06/14 [place] RESULTS [facility] BLOOD BANK Antibody Scrn Negative 06/14 [place] RESULTS Medical (06/13/16 10:25 PM) Center BODY FLUIDS [place] Occult Positive Negative 06/14 [facility] Bld [facility] *ABN* Center (06/13/16 10:22 PM) HEMATOLOGY Basophils 0.1 % 0.0 - 1.0 06/14 /2015 [facility] HEMATOLOGY PTT 40.7 s 22.9 - 06/14 [place] 35.8 [facility] HEMATOLOGY INR 1.13 0.85 - 06/14 [place] 1.17 /2015 [facility] HEMATOLOGY PT 14.8 s 12.0 - 06/14 [facility] 14.7 [facility] Abdomen AP Abdomen AP DX EXAM: XR ABDOMEN 1 VIEW 06/13 - [facility] DX - [facility] This report was dictated by a Neurophysiological Technician/Fellow. I have personally reviewed the images as [...] Lvl 2.0 g/dL 3.5 - 5.0 06/13 [facility] CHEM PANEL Total Protein 6.4 g/dL 6.4 - 8.4 06/13 [facility] CHEM PANEL A/G Ratio 0.5 0.7 - 1.6 06/13 [facility] CHEM PANEL Globulin 4.4 g/dL 2.7 - 4.2 06/13 [facility] CHEM PANEL Alk Phos 319 unit/L 39 - 136 06/13 [facility] CHEM PANEL B/C Ratio 16 6 - 25 06/[address] CHEM PANEL AST 18 unit/L 0 - 37 06/13 [facility]2015 [facility] CHEM PANEL ALT 26 unit/L 0 - 65 06/[address] CHEM PANEL Bili Total 0.4 mg/dL 0.2 - 1.3 06/[address] HEMATOLOGY Eosinophils 0.4 % 0.0 - 4.0 06/13 [facility]2015 [facility] HEMATOLOGY Plt Morph Normal 06/13 [facility] (06/13/16 12:38 AM) [place] HEMATOLOGY Eosinophils # 0.1 K/CMM 0.0 - 0.5 06/[address] CVC remove CVC remove STUDY: Tunneled hemodialysis catheter removal 06/12 [facility] tunnel tunnel w/-w/o /2015 - [facility] w/-w/o port/pump [facility] Center port/pump [...] compressed for short while and hemostasis obtained. FRICKERTRON CHECKER: Lawrence CARPET CLEANER(S): CONSENT: Written consent obtained after discussing the [...] B/C Ratio 18 6 - 25 06/[address] CHEM PANEL Globulin 4.9 g/dL 2.7 - 4.2 06/[address] CHEM PANEL A/G Ratio 0.4 0.7 - 1.6 06/12 [facility] /[address] [place] [address] CHEM PANEL Bili Total 0.4 mg/dL 0.2 - 1.3 06/12 2015 [facility] CHEM PANEL AST 18 unit/L 0 - 37 06/12 [facility]2015 [facility] CHEM PANEL Alk Phos 401 unit/L 39 - 136 06/[address] CHEM PANEL Total Protein 7.0 g/dL 6.4 - 8.4 06/12 [facility]2015 [facility] CHEM PANEL ALT 24 unit/L 0 - 65 06/12 [facility]2015 [facility] CHEM PANEL Albumin Lvl 2.1 g/dL 3.5 - 5.0 06/12 [facility]2015 [facility] CHEM PANEL Lactic Acid 0.8 mMol/L 0.5 - 2.2 06/10 [facility] CHEM PANEL Globulin 4.6 g/dL 2.7 - 4.2 06/[address] CHEM PANEL B/C Ratio 12 6 - 25 06/[address] CHEM PANEL A/G Ratio 0.4 0.7 - 1.6 06/[address] CHEM PANEL Total Protein 6.5 g/dL 6.4 - 8.4 06/[address] CHEM PANEL Albumin Lvl 1.9 g/dL 3.5 - 5.0 06/[address] CHEM PANEL ALT 22 unit/L 0 - 65 06/[address] CHEM PANEL AST 22 unit/L 0 - 37 06/[address] CHEM PANEL Alk Phos 352 unit/L 39 - 136 06/[address] CHEM PANEL Bili Total 0.4 mg/dL 0.2 - 1.3 06/[address] CHEM PANEL Lactic Acid 0.9 mMol/L 0.5 - 2.2 06/08 [facility] CARDIAC Troponin-I 0.07 ng/mL 0.00 - 06/07 [facility] ENZYMES 0. [facility] CHEM PANEL Phosphorus 3.7 mg/dL 2.5 - 4.5 06/[address] CHEM PANEL Magnesium Lvl 2.1 mg/dL 1.8 - 2.4 06/07 [facility]2015 [facility] HEMATOLOGY INR 1.32 0.85 - 06/07 [facility] [place] 1. [facility] HEMATOLOGY PTT 49.3 s 22.9 - 06/07 [facility] 35.8 /2015 [facility] HEMATOLOGY PT 16.7 s 12.0 - 06/07 [facility] 14.7 [facility] BACTERIAL - MRSA by PCR Positive 1 06/07 Result [facility] SEROLOGY Comment: Medical *ABN* "Significant Center Findings (06/07/16 1:46 AM) called to Anca Ward_at 06/07/2016 13:25 by bf. Read Back OK." URINE AND UA Sq Epi RARE 06/07 [facility] URINE AND UA WBC 8 /HPF 0 - 5 06/07 [facility] URINE AND UA RBC 3 /HPF 0 - 2 06/07 [facility] URINE AND UA Bacteria Occasional None Seen 06/07 [facility] /HPF /HPF /2015 [facility] URINE AND UA Hyal Cast 3 /LPF 0 - 2 06/07 [facility] URINE AND UA Mucus Few /LPF None Seen 06/07 [facility] STOOL /LPF /2015 [facility] URINE AND UA 0.2 EU/dL 0.1 - 1.0 06/07 [facility] Urobilinogen /2015 [facility] URINE AND UA Nitrite Negative Negative 06/07 [facility] (06/06/16 11:32 PM) [place] URINE AND UA Leuk Est Negative Negative 06/07 [facility] (06/06/16 11:32 PM) [place] URINE AND UA Blood Trace Negative 06/07 [facility] Medical *ABN* [place] (06/06/16 11:32 PM) URINE AND UA Bili Negative Negative 06/07 [facility] Medical *NA* [place] (06/06/16 11:32 PM) URINE AND UA pH 7.0 5.0 - 8.0 06/07 [facility] URINE AND UA Protein 100 mg/dL Negative 06/07 [facility] mg/dL [facility] URINE AND UA Turbidity Clear Clear 06/07 [facility] (06/06/16 11:32 PM) [place] URINE AND UA Spec Grav 1.020 <=1.030 06/07 [facility] URINE AND UA Ketones Negative Negative 06/07 [facility] *NA* Center (06/06/16 11:32 PM) URINE AND UA Glucose Negative Negative 06/07 [facility] Medical (06/06/16 11:32 PM) [place] URINE AND UA Color Yellow Yellow 06/07 [facility]OL [facility] *NA* [place] (06/06/16 11:32 PM) CARDIAC Troponin-I 0.12 ng/mL 0.00 - 06/07 [facility] ENZYMES 0.40 [facility] IMMUNOLOGY Hep Bs Ab 20.5 <=7.4 06/06 [facility] mIU/mL mIU/mL [facility] IMMUNOLOGY Hep B Core Ab Negative Negative 06/06 [facility] *NA* [place] (06/06/16 3:44 PM) IMMUNOLOGY Hep C Ab Negative 06/06 [facility]* [place] (06/06/16 3:44 PM) IMMUNOLOGY Hep Bs Ag Negative [facility] [place] (06/06/16 3:44 PM) CARDIAC Troponin-I null 0.00 - 06/06 [facility] ENZYMES 0.40 [facility] CHEM PANEL Magnesium Lvl 1.7 mg/dL 1.8 - 2.4 06/06 [facility] HEMATOLOGY Bands 0.0 % 0.0 - 11.0 06/06 [facility] HEMATOLOGY Atypical 0.0 % <=0.0 % 06/06 [facility] Lymphs [facility] PARATHYROID Ca Ion WB 1.18 1.05 - 06/06 [facility] PROFILE mMol/L 1. [facility] PARATHYROID Ca Norm WB 1.15 1.05 - 06/06 [facility] PROFILE mMol/L 1. [facility] CARDIAC Troponin-T 0.050 0.000 - 06/06 [facility] ENZYMES ng/mL 0.100 [facility] CARDIAC Troponin-T 0.036 0.000 - 06/06 [facility] ENZYMES ng/mL 0.100 [facility] CARDIAC Total CK 43 unit/L 12 - 191 06/06 [facility] HEMATOLOGY Sed Rate >100 mm/hr 0 - 15 06/06 [facility]2015 [facility] HEMATOLOGY Estimated % 1.2 % 0.0 - 7.5 06/06 [facility] Lysis [facility] HEMATOLOGY ACT (TEG) 128 s 86 - 118 06/06 [facility] Rapid [facility] HEMATOLOGY Angle Rapid 80 degrees 64 - 80 06/06 [facility] HEMATOLOGY Max Amplitude 78 mm 52 - 71 06/06 [facility] HEMATOLOGY G-value Rapid 17.6 K 5.0 - 11.6 06/06 [facility] d/sc /2015 [facility] HEMATOLOGY [place] 0.7 min 06/06 [facility] HEMATOLOGY R-time Rapid 0.8 min 0.4 - 0.7 06/06 [facility] HEMATOLOGY K-time Rapid 0.8 min 0.6 - 2.3 06/06 /2015 [facility] HEMATOLOGY PT 14.6 s 12.0 - 06/06 [facility] 14.7 [facility] HEMATOLOGY PTT 49.0 s 22.9 - 06/06 [facility] 35.8 [facility] HEMATOLOGY INR 1.11 0.85 - 06/06 [facility] 1. [facility] HEMATOLOGY RBC Morph Normal 06/06 [facility] (06/06/16 3:15 AM) [place] HEMATOLOGY Tot Cell Ct 100 06/06 [facility] HEMATOLOGY Basophils # 0.1 K/CMM 0.0 - 0.2 06/06 [facility] IMMUNOLOGY C-REACTIVE 251.0 mg/L <=2.9 mg/L 06/06 [facility] PROTEIN [facility] BLOOD BANK Antibody Scrn Negative 06/06 [facility] RESULTS [facility] (06/06/16 3:00 AM) [place] BLOOD BANK ABO/Rh O POS 06/06 [facility] RESULTS [facility] Spine Spine lumbar EXAM: MRI LUMBAR SPINE WITHOUT CONTRAST 06/06 - [facility] lumbar wo wo /2015 - [facility] contrast MRI Center MRI DATE: [...] CT ABDOMEN AND PELVIS WITHOUT CONTRAST - [facility] wo IV s wo IV [...] 1view EXAM: Chest 1view DX 06/06 - [facility] DX DX /2016 [facility] DATE: 06/06/2016 0318 hours CDT [...] Date Comments Source Heart Rate 104 06/21/2016 [facility] Respitory Rate 20 06/21/2016 [facility] Systolic (mm Hg) 160 06/21/2016 [facility] Diastolic (mm Hg) 70 06/21/2016 [facility] Temperature Oral (F) 97.7 F 06/21/2016 [facility] Respitory Rate 16 06/21/2016 [facility] Temperature Oral (F) 96.5 F 06/21/2016 [facility] Systolic (mm Hg) 143 06/21/2016 [facility] Diastolic (mm Hg) 71 06/21/2016 [facility] Respitory Rate 16 06/21/2016 [facility] Heart Rate 94 06/21/2016 [facility] Temperature Oral (F) 96.9 F 06/21/2016 [facility] Heart Rate 87 06/21/2016 [facility] Systolic (mm Hg) 145 06/21/2016 [facility] Diastolic (mm Hg) 69 06/21/2016 [facility] Height 170.18 cm 06/06/2016 [facility] Weight 104.33 06/06/2016 [facility] Weight 104.33 06/06/2016 [facility] Encounters Location Location Encounter Encounter Reason Attending ADM DC Status Source Details Type Number For Provider Date Date Visit [facility] Inpatient [id number] Marisel Coyle 06/06 06/21 DO [place] /2015 [facility] Procedures Procedure Code Date Perfomer Comments Source
--- OUTSIDE RECORDS SUMMARY | 2018-09-20 13:08 | XMS REPORT ---
:1960 [facility] [address] [place] [address] Care Team Providers Name Role Phone KENJUAN [...] Reference Range Comments METHYLMALONIC ACID, SERUM (test owwo=[id number]) 603 nmol/L 0-378 PERFORMED AT: [facility] [id number] POT FILLER: Donnie Youssef MD PHONE: [phone], [id number] 06:50:00To start 15mins after 1st cultureSpecimen: BloodCollected: 2016 01:33 Status: Final Last Updated: 06/21/2017 06:49 (1) To start 15mins after 1st culture Culture Result (Final) (Final) No Growth After 5 DaysCULTURE, [id number] 06:50:00Specimen: BloodCollected: 06/16/2017 01: 20 Status: Final Last Updated: 06/21/2017 06:49 Culture Result (Final) ( Final) No Growth After 5 [id number] 09:05:00 Test Item Value Reference Range Comments [...] mL/min/1.73m\\S\\2 EGFR if Non- 17 Estimated Glomerular Brazilian (test mL/min/1.73m\\S\\2 Filtration Rate (eGFR) code=EGFRNA) Reference [...] of chronic kidney failure. CBC WITH AUTO [id number] 08:50:00 Test Item Value Reference Range Comments [...] code=IG%) 0.7 % 0.0-0.4 CBC WITH AUTO [id number] 01:49:00 Test Item Value Reference Range Comments [...] code=IG%) 0.9 % 0.0-0.4 CBC WITH AUTO [id number] 20:08:00 Test Item Value Reference Range Comments [...] code=IG%) 0.7 % 0.0-0.4 CBC WITH AUTO [id number] 13:58:00 Test Item Value Reference Range Comments [...] 1.0-3.0 IG% (test code=IG%) 0.7 % 0.0-0.4 [id number] 09:14:00 Test Item Value Reference Range Comments [...] mL/min/1.73m\\S\\2 EGFR if Non- 16 Estimated Glomerular Brazilian (test mL/min/1.73m\\S\\2 Filtration Rate (eGFR) code=EGFRNA) Reference [...] of chronic kidney failure. CBC WITH AUTO [id number] 09:05:00 Test Item Value Reference Range Comments [...] code=IG%) 0.7 % 0.0-0.4 CBC WITH AUTO [id number] 02:17:00 Test Item Value Reference Range Comments [...] code=IG%) 0.7 % 0.0-0.4 CBC WITH AUTO [id number] 20:02:00 Test Item Value Reference Range Comments [...] code=IG%) 0.8 % 0.0-0.4 CBC WITH AUTO [id number] 14:17:00 Test Item Value Reference Range Comments [...] 1.0-3.0 IG% (test code=IG%) 0.9 % 0.0-0.4 [id number] 08:47:00 Test Item Value Reference Range Comments Magnesium (test code=MG) 1.9 mg/dl 1.6-2.3 [id number] 08:47:00 Test Item Value Reference Range Comments [...] mL/min/1.73m\\S\\2 EGFR if Non- 17 Estimated Glomerular Brazilian (test mL/min/1.73m\\S\\2 Filtration Rate (eGFR) code=EGFRNA) Reference [...] of chronic kidney failure. CBC WITH AUTO [id number] 08:22:00 Test Item Value Reference Range Comments [...] code=IG%) 0.8 % 0.0-0.4 CBC WITH AUTO [id number] 03:42:00 Test Item Value Reference Range Comments [...] on ############### was changed to 1 by [id number] on 06/17/2017 03:42 Neutrophils (test 68 % 42-75 The value no value code=NEUTR) originally released by on ############### was changed to 68 by [id number] on 06/17/2017 03:42 Lymphocytes (test 16 % 13-42 The value no value code=LYMPH) originally released by on ############### was changed to 16 by [id number] on 06/17/2017 03:42 Monocytes (test 11 % 4-14 The value no value code=MONOS) originally released by on ############### was changed to 11 by [id number] on 06/17/2017 03:42 Eosinophils (test 3 % 1-3 The value no value code=EOS) originally released by on ############### was changed to 3 by [id number] on 06/17/2017 03:42 Basophils (test 1 % 0-1 The value no value code=BASO) originally released by on ############### was changed to 1 by [id number] on 06/17/2017 03:42 RBC Morphology (test Anisocytosis The value no value code=RBCMOR) Hypochromic originally released by on ############### was changed to Anisocytosis Hypochromic by [id number] on 06/17/2017 03:42 Platelet Morphology Giant platelets The value no value (test code=PLTMORPH) originally released by on ############### was changed to Giant platelets by [id number] on 06/17/2017 03:42 CBC WITH AUTO [id number] 19:54:00 Test Item Value Reference Range Comments [...] code=IG%) 0.8 % 0.0-0.4 CBC WITH AUTO [id number] 14:30:00 Test Item Value Reference Range Comments [...] code=IG%) 1.0 % 0.0-0.4 CBC WITH AUTO [id number] 07:35:00 Test Item Value Reference Range Comments [...] code=IG%) 1.2 % 0.0-0.4 HEP B SURFACE [id number] 07:14:00 Test Item Value Reference Range Comments [...] code=HBSAG) Negative (qualifier Negative value) TYPE & [id number] 04:15:00 Test Item Value Reference Range Comments ABO Blood Type (test code=ABO) O Rh (test code=RH) Positive Antibody Screen (test code=ABSCR) Negative Negative ARMBAND# (test code=ARMBAND) [id number] PRO-BNP(B-Type Natriuretic Peptide)2017-06-16 03:42:00 Test Item Value Reference Range Comments Pro-BNP(B-Peptide) 61701 pg/ml 0-125 THE METHODOLOGY FOR DETECTION OF [...] TIBC (test code=TIBC) 161 ug/dl 178-500 B12, [id number] 03:32:00 Test Item Value Reference Range Comments B12 (test code=B12) 717 pg/ml 239-941 [id number] 03:32:00 Test Item Value Reference Range Comments Folic Acid (test code=FOLIC) 5.35 ng/ml 2.76-20.00 IRON [id number] 03:32:00 Test Item Value Reference Range Comments Iron (test code=FETOT) 33 ug/dl 20-149 TIBC (test code=TIBC) 161 ug/dl 178-500 Iron Saturation (test code=FESAT) 20 % 16-62 [id number] 03:05:00 Test Item Value Reference Range Comments [...] (test code=BGCTHB) 9.6 gm/dl 11.5-17.4 O2Hb (test code=VPXN7OI) 94.7 % 95.0-99.0 COHb (test code=BGFCOHB) <2.8 [...] Notified (test code=BGTMNOTIFIED) 03:03 O2 Device (test code=GVA4JRO9) ROOM AIR Instrument ID (test code=BGINSTRID) [id number] Reported By (test code=BGREPORTEDBY) LUCY GAMBLE GLYCOSALATED [id number] 02:39:00 Test Item Value Reference Range Comments Hemoglobin A1C (test 5.78 % 4.3-6.0 code=GLYCO) Mean Plasma Glucose (test 128 mg/dl 90-180 WHEN TEST RESULTS FOR A1C code=MPG) EXCEED 14.0, THE LINEAR LIMIT OF THE INSTRUMENT, THE CALCULATED RESULT FOR THE MEAN GLUCOSE IS NOT RELIABLE. CORONARY [id number] 02:22:00 Test Item Value Reference Range Comments [...] vLDL (test code=VLDL) 16 mg/dl 30-60 VANCOMYCIN, [id number] 02:19:00 Test Item Value Reference Range Comments Vancomycin, Trough (test 7.7 ug/ml 15.0-20.0 05/13/2009 Change in Therapeutic code=VANCT) Range, for Trough Level, has been implemented per P&T committee. INTERPRETATION GUIDE: CONSIDER SENSITIVITY REPORT IF NGUYEN IS=1 THERAPEUTIC RANGE IS 15-20 ug/ml IF NGUYEN IS > OR=2 CONSIDER ALTERNATE THERAPY [id number] 02:05:00 Test Item Value Reference Range Comments [...] mL/min/1.73m\\S\\2 EGFR if Non- 23 Estimated Glomerular Brazilian (test mL/min/1.73m\\S\\2 Filtration Rate (eGFR) code=EGFRNA) Reference Intervals Decision Points for 18 years and older and average body mass: >=60 Does not exclude kidney disease. 30 - 59 Suggests moderate chronic kidney disease and indicates the need for further investigation including assessment of proteinuria and cardiovascular factors. < 30 Usually indicates a need for referral for assessment and management of chronic kidney failure. [id number] 02:05:00 Test Item Value Reference Range Comments Magnesium (test code=MG) 1.9 mg/dl 1.6-2.3 CBC WITH AUTO [id number] 02:03:00 Test Item Value Reference Range Comments [...] code=IG%) 0.9 % 0.0-0.4 AFB CULTURE + [id number] 12:29:00 Test Item Value Reference Range Comments CULTURE (BEAKER) (test No acid-fast bacilli isolated ppxu=0751) in 42 days AFB SMEAR (BEAKER) (test No acid fast bacilli seen okyu=060) AFB CULTURE + [id number] 12:28:00 Test Item Value Reference Range Comments CULTURE (BEAKER) (test No acid-fast bacilli isolated pwth=8936) in 42 days AFB SMEAR (BEAKER) (test No acid fast bacilli seen rlbx=803) FUNGUS CULTURE + [id number] 17:13:00 Test Item Value Reference Range Comments CULTURE (BEAKER) (test No fungus isolated in 28 days uohp=5077) FUNGUS SMEAR (BEAKER) (test No fungi seen laej=6520) FUNGUS CULTURE + [id number] 17:13:00 Test Item Value Reference Range Comments CULTURE (BEAKER) (test No fungus isolated in 28 days utob=4808) FUNGUS SMEAR (BEAKER) (test No fungi seen mxdk=2868) FUNGUS CULTURE + [id number] 21:46:00 Test Item Value Reference Range Comments CULTURE (BEAKER) (test No fungus isolated in 28 days jktx=6640) FUNGUS SMEAR (BEAKER) (test No fungi seen nfpv=6686) POCT-GLUCOSE [id number] 17:22:00 Test Item Value Reference Range Comments POC-GLUCOSE METER (BEAKER) 169 mg/dL 70-110 TESTED AT [address] (test hmej=9303) [place] [id number] POCT-GLUCOSE [id number] 12:13:00 Test Item Value Reference Range Comments POC-GLUCOSE METER (BEAKER) 165 mg/dL 70-110 TESTED AT [address] (test erhi=8754) [place] [id number] POCT-GLUCOSE [id number] 07:48:00 Test Item Value Reference Range Comments POC-GLUCOSE METER (BEAKER) 132 mg/dL 70-110 TESTED AT [address] (test kfgz=7352) [place] [id number] BASIC METABOLIC [id number] 07:26:00 Test Item Value Reference Range Comments SODIUM (BEAKER) (test 133 meq/L 136-145 uiet=397) POTASSIUM (BEAKER) (test 4.2 meq/L 3.5-5.1 dzrf=457) CHLORIDE (BEAKER) (test 101 meq/L 98-107 bnxy=007) CO2 (BEAKER) (test 22 meq/L 22-29 pujg=890) BLOOD UREA NITROGEN 38 mg/dL 7-21 (BEAKER) (test xxwb=478) CREATININE (BEAKER) (test 4.01 mg/dL 0.57-1.25 qjeh=719) GLUCOSE RANDOM (BEAKER) 110 mg/dL 70-105 (test jiqo=447) CALCIUM (BEAKER) (test 8.7 mg/dL 8.4-10.2 umvr=005) EGFR (BEAKER) (test 15 mL/min/1.73 sq m ESTIMATED GFR IS NOT cahl=1297) ACCURATE CREATININE CLEARANCE IN PREDICTING GLOMERULAR FILTRATION RATE. ESTIMATED GFR IS NOT APPLICABLE FOR DIALYSIS PATIENTS. [id number] 07:25:00 Test Item Value Reference Range Comments PHOSPHORUS (BEAKER) (test hixo=474) 4.4 mg/dL 2.3-4.7 [id number] 07:25:00 Test Item Value Reference Range Comments MAGNESIUM (BEAKER) (test zcpy=637) 1.9 mg/dL 1.6-2.6 CBC W/PLT COUNT & AUTO [id number] 06:54:00 Test Item Value Reference Range Comments WHITE BLOOD CELL COUNT (BEAKER) (test fqms=406) 12.6 K/ L 4.0-10.0 RED BLOOD CELL COUNT (BEAKER) (test vbnb=218) 2.78 M/ L 4.20-5.80 HEMOGLOBIN (BEAKER) (test iuvf=721) 8.3 GM/DL 13.0-16.8 HEMATOCRIT (BEAKER) (test ixzy=686) 25.1 % 40.0-50.0 MEAN CORPUSCULAR VOLUME (BEAKER) (test ptzv=899) 90.3 fL 82.0-98.0 MEAN CORPUSCULAR HEMOGLOBIN (BEAKER) (test 29.8 pg 27.0-33.0 iotw=815) MEAN CORPUSCULAR HEMOGLOBIN CONC (BEAKER) (test 33.1 GM/DL 32.0-36.0 ldxu=681) RED CELL DISTRIBUTION WIDTH (BEAKER) (test 16.1 % 10.3-14.2 avfh=237) PLATELET COUNT (BEAKER) (test jtik=746) 290 K/CU MM 150-430 MEAN PLATELET VOLUME (BEAKER) (test fzmz=383) 7.2 fL 6.5-10.5 NUCLEATED RED BLOOD CELLS (BEAKER) (test 0 /100 WBC 0-0 syif=746) NEUTROPHILS RELATIVE PERCENT (BEAKER) (test 74 % imoo=796) LYMPHOCYTES RELATIVE PERCENT (BEAKER) (test 15 % dhfs=763) MONOCYTES RELATIVE PERCENT (BEAKER) (test 9 % dpfq=648) EOSINOPHILS RELATIVE PERCENT (BEAKER) (test 2 % jvjr=362) BASOPHILS RELATIVE PERCENT (BEAKER) (test 0 % nccg=110) NEUTROPHILS ABSOLUTE COUNT (BEAKER) (test 9.30 K/ L 1.80-8.00 nsxa=885) LYMPHOCYTES ABSOLUTE COUNT (BEAKER) (test 1.89 K/ L 1.48-4.50 bafg=441) MONOCYTES ABSOLUTE COUNT (BEAKER) (test 1.14 K/ L 0.00-1.30 adhs=635) EOSINOPHILS ABSOLUTE COUNT (BEAKER) (test 0.26 K/ L 0.00-0.50 dvvg=334) BASOPHILS ABSOLUTE COUNT (BEAKER) (test 0.05 K/ L 0.00-0.20 thtd=958) 0.00POCT-GLUCOSE [id number] 22:31:00 Test Item Value Reference Range Comments POC-GLUCOSE METER (BEAKER) 133 mg/dL 70-110 TESTED AT [address] (test uqmy=1359) [place] [address] POCT-GLUCOSE [id number] 17:17:00 Test Item Value Reference Range Comments POC-GLUCOSE METER (BEAKER) 119 mg/dL 70-110 TESTED AT [address] (test hdcn=6302) [place] [address] POCT-GLUCOSE [id number] 11:43:00 Test Item Value Reference Range Comments POC-GLUCOSE METER (BEAKER) 175 mg/dL 70-110 TESTED AT [address] (test mcsc=9152) [place] [address] CBC W/PLT COUNT & AUTO [id number] 08:39:00 Test Item Value Reference Range Comments WHITE BLOOD CELL COUNT (BEAKER) (test nleo=151) 13.4 K/ L 4.0-10.0 RED BLOOD CELL COUNT (BEAKER) (test fsru=153) 2.91 M/ L 4.20-5.80 HEMOGLOBIN (BEAKER) (test nwje=253) 8.6 GM/DL 13.0-16.8 HEMATOCRIT (BEAKER) (test vcgx=106) 26.5 % 40.0-50.0 MEAN CORPUSCULAR VOLUME (BEAKER) (test msrd=004) 91.1 fL 82.0-98.0 MEAN CORPUSCULAR HEMOGLOBIN (BEAKER) (test 29.4 pg 27.0-33.0 lagw=652) MEAN CORPUSCULAR HEMOGLOBIN CONC (BEAKER) (test 32.3 GM/DL 32.0-36.0 sktj=172) RED CELL DISTRIBUTION WIDTH (BEAKER) (test 16.0 % 10.3-14.2 rekm=868) PLATELET COUNT (BEAKER) (test xkqr=265) 282 K/CU MM 150-430 MEAN PLATELET VOLUME (BEAKER) (test ydgh=143) 7.7 fL 6.5-10.5 NUCLEATED RED BLOOD CELLS (BEAKER) (test 0 /100 WBC 0-0 uirr=411) NEUTROPHILS RELATIVE PERCENT (BEAKER) (test 72 % xbes=443) LYMPHOCYTES RELATIVE PERCENT (BEAKER) (test 16 % dnrv=704) MONOCYTES RELATIVE PERCENT (BEAKER) (test 10 % ycti=834) EOSINOPHILS RELATIVE PERCENT (BEAKER) (test 2 % klvu=764) BASOPHILS RELATIVE PERCENT (BEAKER) (test 1 % pkiy=778) NEUTROPHILS ABSOLUTE COUNT (BEAKER) (test 9.63 K/ L 1.80-8.00 aubp=403) LYMPHOCYTES ABSOLUTE COUNT (BEAKER) (test 2.15 K/ L 1.48-4.50 zqmd=200) MONOCYTES ABSOLUTE COUNT (BEAKER) (test 1.32 K/ L 0.00-1.30 srbe=416) EOSINOPHILS ABSOLUTE COUNT (BEAKER) (test 0.23 K/ L 0.00-0.50 txte=721) BASOPHILS ABSOLUTE COUNT (BEAKER) (test 0.10 K/ L 0.00-0.20 hufo=940) 0.000.730.001.460.000.000.000.000.000.000.000.000.000.000.000.00(MANUAL DIFFERENTIAL)2016-12-24 08:39:00 Test Item Value Reference Range Comments TOTAL COUNTED (BEAKER) (test leko=9199) POCT-GLUCOSE [id number] 07:47:00 Test Item Value Reference Range Comments POC-GLUCOSE METER (BEAKER) 139 mg/dL 70-110 TESTED AT [address] (test mdnd=4025) [facility] [address] BASIC METABOLIC [id number] 06:50:00 Test Item Value Reference Range Comments SODIUM (BEAKER) (test 133 meq/L 136-145 vmef=515) POTASSIUM (BEAKER) (test 4.2 meq/L 3.5-5.1 kpnn=871) CHLORIDE (BEAKER) (test 102 meq/L 98-107 ggyz=163) CO2 (BEAKER) (test 21 meq/L 22-29 mpxt=019) BLOOD UREA NITROGEN 27 mg/dL 7-21 (BEAKER) (test enna=734) CREATININE (BEAKER) (test 3.13 mg/dL 0.57-1.25 csuf=962) GLUCOSE RANDOM (BEAKER) 100 mg/dL 70-105 (test wqfn=187) CALCIUM (BEAKER) (test 8.8 mg/dL 8.4-10.2 ipbl=868) EGFR (BEAKER) (test 21 mL/min/1.73 sq m ESTIMATED GFR IS NOT inag=6609) ACCURATE CREATININE CLEARANCE IN PREDICTING GLOMERULAR FILTRATION RATE. ESTIMATED GFR IS NOT APPLICABLE FOR DIALYSIS PATIENTS. [id number] 06:41:00 Test Item Value Reference Range Comments PHOSPHORUS (BEAKER) (test grbw=591) 2.9 mg/dL 2.3-4.7 [id number] 06:41:00 Test Item Value Reference Range Comments MAGNESIUM (BEAKER) (test sxzw=811) 1.7 mg/dL 1.6-2.6 POCT-GLUCOSE [id number] 21:52:00 Test Item Value Reference Range Comments POC-GLUCOSE METER (BEAKER) 97 mg/dL 70-110 TESTED AT [address] (test xhyf=8183) [facility] [address] POCT-GLUCOSE [id number] 17:28:00 Test Item Value Reference Range Comments POC-GLUCOSE METER (BEAKER) 105 mg/dL 70-110 TESTED AT [address] (test rwvc=4701) [facility] [address] POCT-GLUCOSE [id number] 12:31:00 Test Item Value Reference Range Comments POC-GLUCOSE METER (BEAKER) 215 mg/dL 70-110 TESTED AT [address] (test sltf=7020) [facility] [address] POCT-GLUCOSE [id number] 08:19:00 Test Item Value Reference Range Comments POC-GLUCOSE METER (BEAKER) 135 mg/dL 70-110 TESTED AT [facility] [address] (test yilp=4086) [facility] [address] CBC W/PLT COUNT & AUTO [id number] 07:19:00 Test Item Value Reference Range Comments WHITE BLOOD CELL COUNT (BEAKER) (test hidn=166) 15.0 K/ L 4.0-10.0 RED BLOOD CELL COUNT (BEAKER) (test tjdi=430) 3.04 M/ L 4.20-5.80 HEMOGLOBIN (BEAKER) (test dbuv=788) 8.8 GM/DL 13.0-16.8 HEMATOCRIT (BEAKER) (test uxjr=841) 27.3 % 40.0-50.0 MEAN CORPUSCULAR VOLUME (BEAKER) (test vhhy=482) 89.8 fL 82.0-98.0 MEAN CORPUSCULAR HEMOGLOBIN (BEAKER) (test 29.0 pg 27.0-33.0 atuo=082) MEAN CORPUSCULAR HEMOGLOBIN CONC (BEAKER) (test 32.3 GM/DL 32.0-36.0 ytyb=277) RED CELL DISTRIBUTION WIDTH (BEAKER) (test 17.0 % 10.3-14.2 eszz=820) PLATELET COUNT (BEAKER) (test kfqo=492) 285 K/CU MM 150-430 MEAN PLATELET VOLUME (BEAKER) (test ftsa=853) 7.2 fL 6.5-10.5 NUCLEATED RED BLOOD CELLS (BEAKER) (test 0 /100 WBC 0-0 rvxc=931) NEUTROPHILS RELATIVE PERCENT (BEAKER) (test 77 % rmvc=338) LYMPHOCYTES RELATIVE PERCENT (BEAKER) (test 11 % rcye=849) MONOCYTES RELATIVE PERCENT (BEAKER) (test 11 % mxsa=268) EOSINOPHILS RELATIVE PERCENT (BEAKER) (test 1 % fuit=727) BASOPHILS RELATIVE PERCENT (BEAKER) (test 0 % hokl=024) NEUTROPHILS ABSOLUTE COUNT (BEAKER) (test 11.50 K/ L 1.80-8.00 lupx=614) LYMPHOCYTES ABSOLUTE COUNT (BEAKER) (test 1.72 K/ L 1.48-4.50 ssid=809) MONOCYTES ABSOLUTE COUNT (BEAKER) (test 1.59 K/ L 0.00-1.30 dons=671) EOSINOPHILS ABSOLUTE COUNT (BEAKER) (test 0.17 K/ L 0.00-0.50 ycol=179) BASOPHILS ABSOLUTE COUNT (BEAKER) (test 0.05 K/ L 0.00-0.20 ugre=687) [id number] 06:41:00 Test Item Value Reference Range Comments PHOSPHORUS (BEAKER) (test tlpa=881) 2.1 mg/dL 2.3-4.7 [id number] 06:41:00 Test Item Value Reference Range Comments MAGNESIUM (BEAKER) (test qwnh=310) 1.8 mg/dL 1.6-2.6 BASIC METABOLIC [id number] 06:41:00 Test Item Value Reference Range Comments SODIUM (BEAKER) (test 134 meq/L 136-145 gfxe=741) POTASSIUM (BEAKER) (test 4.2 meq/L 3.5-5.1 encm=115) CHLORIDE (BEAKER) (test 103 meq/L 98-107 uvda=889) CO2 (BEAKER) (test 23 meq/L 22-29 ofzd=255) BLOOD UREA NITROGEN 18 mg/dL 7-21 (BEAKER) (test dgcr=293) CREATININE (BEAKER) (test 2.20 mg/dL 0.57-1.25 hnge=063) GLUCOSE RANDOM (BEAKER) 105 mg/dL 70-105 (test wkbj=670) CALCIUM (BEAKER) (test 8.5 mg/dL 8.4-10.2 wvhy=676) EGFR (BEAKER) (test 31 mL/min/1.73 sq m ESTIMATED GFR IS NOT xjuc=0656) ACCURATE CREATININE CLEARANCE IN PREDICTING GLOMERULAR FILTRATION RATE. ESTIMATED GFR IS NOT APPLICABLE FOR DIALYSIS PATIENTS. POCT-GLUCOSE [id number] 21:43:00 Test Item Value Reference Range Comments POC-GLUCOSE METER (BEAKER) 278 mg/dL 70-110 TESTED AT [address] (test uhdd=4039) [facility] [address] POCT-GLUCOSE [id number] 18:42:00 Test Item Value Reference Range Comments POC-GLUCOSE METER (BEAKER) 177 mg/dL 70-110 TESTED AT [address] (test vrrj=3787) [facility] [address] POCT-GLUCOSE [id number] 14:53:00 Test Item Value Reference Range Comments POC-GLUCOSE METER (BEAKER) 197 mg/dL 70-110 TESTED AT [place] [id number] [facility] (test pksb=5520) [facility] [address] CBC W/PLT COUNT & AUTO [id number] 12:20:00 Test Item Value Reference Range Comments WHITE BLOOD CELL COUNT (BEAKER) (test wocl=638) 13.6 K/ L 4.0-10.0 RED BLOOD CELL COUNT (BEAKER) (test jcdo=727) 2.85 M/ L 4.20-5.80 HEMOGLOBIN (BEAKER) (test izil=626) 8.3 GM/DL 13.0-16.8 HEMATOCRIT (BEAKER) (test jchx=406) 25.8 % 40.0-50.0 MEAN CORPUSCULAR VOLUME (BEAKER) (test twmy=995) 90.6 fL 82.0-98.0 MEAN CORPUSCULAR HEMOGLOBIN (BEAKER) (test 29.3 pg 27.0-33.0 mlzu=691) MEAN CORPUSCULAR HEMOGLOBIN CONC (BEAKER) (test 32.3 GM/DL 32.0-36.0 rjbe=330) RED CELL DISTRIBUTION WIDTH (BEAKER) (test 16.7 % 10.3-14.2 jdoo=336) PLATELET COUNT (BEAKER) (test tkwx=971) 252 K/CU MM 150-430 MEAN PLATELET VOLUME (BEAKER) (test inek=680) 7.4 fL 6.5-10.5 NUCLEATED RED BLOOD CELLS (BEAKER) (test 0 /100 WBC 0-0 oaxn=527) NEUTROPHILS RELATIVE PERCENT (BEAKER) (test 75 % gfou=022) LYMPHOCYTES RELATIVE PERCENT (BEAKER) (test 13 % mrsk=858) MONOCYTES RELATIVE PERCENT (BEAKER) (test 10 % pahc=307) EOSINOPHILS RELATIVE PERCENT (BEAKER) (test 2 % wpng=855) BASOPHILS RELATIVE PERCENT (BEAKER) (test 0 % cozb=794) NEUTROPHILS ABSOLUTE COUNT (BEAKER) (test 10.20 K/ L 1.80-8.00 tdxs=500) LYMPHOCYTES ABSOLUTE COUNT (BEAKER) (test 1.78 K/ L 1.48-4.50 hohv=149) MONOCYTES ABSOLUTE COUNT (BEAKER) (test 1.32 K/ L 0.00-1.30 onyx=083) EOSINOPHILS ABSOLUTE COUNT (BEAKER) (test 0.22 K/ L 0.00-0.50 fauw=991) BASOPHILS ABSOLUTE COUNT (BEAKER) (test 0.06 K/ L 0.00-0.20 iqmx=056) 0.00POCT-GLUCOSE [id number] 08:28:00 Test Item Value Reference Range Comments POC-GLUCOSE METER (BEAKER) 132 mg/dL 70-110 TESTED AT [facility] [address] [facility] (test toqq=1538) [facility] [id number] BASIC METABOLIC [id number] 07:26:00 Test Item Value Reference Range Comments SODIUM (BEAKER) (test 131 meq/L 136-145 dlot=878) POTASSIUM (BEAKER) (test 4.2 meq/L 3.5-5.1 zhle=291) CHLORIDE (BEAKER) (test 98 meq/L 98-107 ieqr=577) CO2 (BEAKER) (test 24 meq/L 22-29 ldub=627) BLOOD UREA NITROGEN 25 mg/dL 7-21 (BEAKER) (test oggv=311) CREATININE (BEAKER) (test 3.02 mg/dL 0.57-1.25 hkub=101) GLUCOSE RANDOM (BEAKER) 103 mg/dL 70-105 (test vhfk=942) CALCIUM (BEAKER) (test 8.1 mg/dL 8.4-10.2 bswk=668) EGFR (BEAKER) (test 21 mL/min/1.73 sq m ESTIMATED GFR IS NOT acyr=3387) ACCURATE CREATININE CLEARANCE IN PREDICTING GLOMERULAR FILTRATION RATE. ESTIMATED GFR IS NOT APPLICABLE FOR DIALYSIS PATIENTS. [id number] 07:17:00 Test Item Value Reference Range Comments PHOSPHORUS (BEAKER) (test drkf=996) 3.1 mg/dL 2.3-4.7 [id number] 07:17:00 Test Item Value Reference Range Comments MAGNESIUM (BEAKER) (test cunk=397) 1.8 mg/dL 1.6-2.6 CALCIUM, [id number] 05:38:00 Test Item Value Reference Range Comments CALCIUM IONIZED (BEAKER) (test jmpw=402) 1.09 mmol/L 1.12-1.27 PH, BLOOD (BEAKER) (test tcpq=2663) 7.45 POCT-GLUCOSE [id number] 21:45:00 Test Item Value Reference Range Comments POC-GLUCOSE METER (BEAKER) 121 mg/dL 70-110 TESTED AT [address] (test ejae=5954) [facility] [address] POCT-GLUCOSE [id number] 16:48:00 Test Item Value Reference Range Comments POC-GLUCOSE METER (BEAKER) 157 mg/dL 70-110 TESTED AT [address] (test sldq=8492) [facility] [address] POCT-GLUCOSE [id number] 12:16:00 Test Item Value Reference Range Comments POC-GLUCOSE METER (BEAKER) 247 mg/dL 70-110 TESTED AT [address] (test vcin=1951) [facility] [address] POCT-GLUCOSE [id number] 08:14:00 Test Item Value Reference Range Comments POC-GLUCOSE METER (BEAKER) 166 mg/dL 70-110 TESTED AT [address] (test oedw=4527) [facility] [address] BASIC METABOLIC [id number] 07:58:00 Test Item Value Reference Range Comments SODIUM (BEAKER) (test 131 meq/L 136-145 kmyp=069) POTASSIUM (BEAKER) (test 3.9 meq/L 3.5-5.1 lnkv=531) CHLORIDE (BEAKER) (test 99 meq/L 98-107 qbuq=410) CO2 (BEAKER) (test 26 meq/L 22-29 mgel=135) BLOOD UREA NITROGEN 18 mg/dL 7-21 (BEAKER) (test qfgv=181) CREATININE (BEAKER) (test 2.32 mg/dL 0.57-1.25 tbeu=901) GLUCOSE RANDOM (BEAKER) 145 mg/dL 70-105 (test eagl=909) CALCIUM (BEAKER) (test 8.1 mg/dL 8.4-10.2 oorw=951) EGFR (BEAKER) (test 29 mL/min/1.73 sq m ESTIMATED GFR IS NOT offe=7698) ACCURATE CREATININE CLEARANCE IN PREDICTING GLOMERULAR FILTRATION RATE. ESTIMATED GFR IS NOT APPLICABLE FOR DIALYSIS PATIENTS. CBC W/PLT COUNT & AUTO [id number] 07:50:00 Test Item Value Reference Range Comments WHITE BLOOD CELL COUNT (BEAKER) (test pbbi=012) 15.3 K/ L 4.0-10.0 RED BLOOD CELL COUNT (BEAKER) (test mfak=884) 3.00 M/ L 4.20-5.80 HEMOGLOBIN (BEAKER) (test lyck=951) 8.4 GM/DL 13.0-16.8 HEMATOCRIT (BEAKER) (test xorb=655) 27.3 % 40.0-50.0 MEAN CORPUSCULAR VOLUME (BEAKER) (test gxpz=818) 90.9 fL 82.0-98.0 MEAN CORPUSCULAR HEMOGLOBIN (BEAKER) (test 28.0 pg 27.0-33.0 cpfz=126) MEAN CORPUSCULAR HEMOGLOBIN CONC (BEAKER) (test 30.8 GM/DL 32.0-36.0 qqye=316) RED CELL DISTRIBUTION WIDTH (BEAKER) (test 15.9 % 10.3-14.2 kulo=888) PLATELET COUNT (BEAKER) (test lkhp=293) 271 K/CU MM 150-430 MEAN PLATELET VOLUME (BEAKER) (test pncr=671) 7.4 fL 6.5-10.5 NUCLEATED RED BLOOD CELLS (BEAKER) (test 0 /100 WBC 0-0 sice=433) NEUTROPHILS RELATIVE PERCENT (BEAKER) (test 76 % ucbx=810) LYMPHOCYTES RELATIVE PERCENT (BEAKER) (test 14 % rafx=730) MONOCYTES RELATIVE PERCENT (BEAKER) (test 9 % hdde=506) EOSINOPHILS RELATIVE PERCENT (BEAKER) (test 1 % ivya=839) BASOPHILS RELATIVE PERCENT (BEAKER) (test 0 % jroe=185) NEUTROPHILS ABSOLUTE COUNT (BEAKER) (test 11.60 K/ L 1.80-8.00 igoq=683) LYMPHOCYTES ABSOLUTE COUNT (BEAKER) (test 2.11 K/ L 1.48-4.50 jiud=957) MONOCYTES ABSOLUTE COUNT (BEAKER) (test 1.36 K/ L 0.00-1.30 pvuv=551) EOSINOPHILS ABSOLUTE COUNT (BEAKER) (test 0.17 K/ L 0.00-0.50 gpdo=856) BASOPHILS ABSOLUTE COUNT (BEAKER) (test 0.06 K/ L 0.00-0.20 usjn=582) [id number] 07:24:00 Test Item Value Reference Range Comments PHOSPHORUS (BEAKER) (test sumt=179) 2.1 mg/dL 2.3-4.7 [id number] 07:24:00 Test Item Value Reference Range Comments MAGNESIUM (BEAKER) (test glft=515) 1.6 mg/dL 1.6-2.6 POCT-GLUCOSE [id number] 20:38:00 Test Item Value Reference Range Comments POC-GLUCOSE METER (BEAKER) 191 mg/dL 70-110 TESTED AT [address] (test xrzw=8292) [place] [id number] POCT-GLUCOSE [id number] 17:32:00 Test Item Value Reference Range Comments POC-GLUCOSE METER (BEAKER) 229 mg/dL 70-110 TESTED AT [address] (test zpur=3702) [place] [address] VANCOMYCIN LEVEL, [id number] 16:51:00 Test Item Value Reference Range Comments VANCOMYCIN TROUGH (BEAKER) (test ptra=238) 17.2 ug/mL 10.0-20.0 At end of dialysis on 12/20/16POCT-GLUCOSE [id number] 11:49:00 Test Item Value Reference Range Comments POC-GLUCOSE METER (BEAKER) 97 mg/dL 70-110 TESTED AT [address] (test wbas=4299) [place] [id number] POCT-GLUCOSE [id number] 07:38:00 Test Item Value Reference Range Comments POC-GLUCOSE METER (BEAKER) 151 mg/dL 70-110 TESTED AT [address] (test dmue=5711) [place] [id number] BASIC METABOLIC [id number] 06:39:00 Test Item Value Reference Range Comments SODIUM (BEAKER) (test 134 meq/L 136-145 neuv=125) POTASSIUM (BEAKER) (test 3.9 meq/L 3.5-5.1 bpto=459) CHLORIDE (BEAKER) (test 102 meq/L 98-107 avbt=094) CO2 (BEAKER) (test 24 meq/L 22-29 yxlx=895) BLOOD UREA NITROGEN 23 mg/dL 7-21 (BEAKER) (test yqkp=616) CREATININE (BEAKER) (test 2.91 mg/dL 0.57-1.25 uysc=117) GLUCOSE RANDOM (BEAKER) 99 mg/dL 70-105 (test hjsy=092) CALCIUM (BEAKER) (test 8.2 mg/dL 8.4-10.2 zbel=908) EGFR (BEAKER) (test 22 mL/min/1.73 sq m ESTIMATED GFR IS NOT msll=9785) ACCURATE CREATININE CLEARANCE IN PREDICTING GLOMERULAR FILTRATION RATE. ESTIMATED GFR IS NOT APPLICABLE FOR DIALYSIS PATIENTS. [id number] 06:37:00 Test Item Value Reference Range Comments PHOSPHORUS (BEAKER) (test nnem=970) 2.9 mg/dL 2.3-4.7 [id number] 06:37:00 Test Item Value Reference Range Comments MAGNESIUM (BEAKER) (test boll=270) 1.6 mg/dL 1.6-2.6 CBC W/PLT COUNT & AUTO [id number] 06:36:00 Test Item Value Reference Range Comments WHITE BLOOD CELL COUNT (BEAKER) (test hhso=586) 14.1 K/ L 4.0-10.0 RED BLOOD CELL COUNT (BEAKER) (test xsbz=989) 3.01 M/ L 4.20-5.80 HEMOGLOBIN (BEAKER) (test jfzl=764) 8.7 GM/DL 13.0-16.8 HEMATOCRIT (BEAKER) (test cgeu=246) 26.8 % 40.0-50.0 MEAN CORPUSCULAR VOLUME (BEAKER) (test adry=442) 88.9 fL 82.0-98.0 MEAN CORPUSCULAR HEMOGLOBIN (BEAKER) (test 28.8 pg 27.0-33.0 qoxk=995) MEAN CORPUSCULAR HEMOGLOBIN CONC (BEAKER) (test 32.5 GM/DL 32.0-36.0 vbly=007) RED CELL DISTRIBUTION WIDTH (BEAKER) (test 16.3 % 10.3-14.2 hjbj=881) PLATELET COUNT (BEAKER) (test ylli=036) 242 K/CU MM 150-430 MEAN PLATELET VOLUME (BEAKER) (test gtwn=610) 6.9 fL 6.5-10.5 NUCLEATED RED BLOOD CELLS (BEAKER) (test 0 /100 WBC 0-0 dhzg=314) NEUTROPHILS RELATIVE PERCENT (BEAKER) (test 73 % cwxm=784) LYMPHOCYTES RELATIVE PERCENT (BEAKER) (test 15 % bdry=097) MONOCYTES RELATIVE PERCENT (BEAKER) (test 9 % aipk=761) EOSINOPHILS RELATIVE PERCENT (BEAKER) (test 2 % pagh=020) BASOPHILS RELATIVE PERCENT (BEAKER) (test 0 % dezk=940) NEUTROPHILS ABSOLUTE COUNT (BEAKER) (test 10.30 K/ L 1.80-8.00 rlgb=619) LYMPHOCYTES ABSOLUTE COUNT (BEAKER) (test 2.14 K/ L 1.48-4.50 aovh=734) MONOCYTES ABSOLUTE COUNT (BEAKER) (test 1.33 K/ L 0.00-1.30 qzqa=581) EOSINOPHILS ABSOLUTE COUNT (BEAKER) (test 0.29 K/ L 0.00-0.50 efhi=944) BASOPHILS ABSOLUTE COUNT (BEAKER) (test 0.06 K/ L 0.00-0.20 rfip=337) 0.00CALCIUM, [id number] 06:24:00 Test Item Value Reference Range Comments CALCIUM IONIZED (BEAKER) (test sugu=593) 1.08 mmol/L 1.12-1.27 PH, BLOOD (BEAKER) (test dpxb=3635) 7.46 POCT-GLUCOSE [id number] 22:24:00 Test Item Value Reference Range Comments POC-GLUCOSE METER (BEAKER) 166 mg/dL 70-110 TESTED AT [address] (test atkb=8831) [place] [id number] POCT-GLUCOSE [id number] 16:17:00 Test Item Value Reference Range Comments POC-GLUCOSE METER (BEAKER) 132 mg/dL 70-110 TESTED AT [address] (test clwv=2532) [place] [address] POCT-GLUCOSE [id number] 12:16:00 Test Item Value Reference Range Comments POC-GLUCOSE METER (BEAKER) 90 mg/dL 70-110 TESTED AT [address] (test dzny=4188) [place] [address] POCT-GLUCOSE [id number] 08:13:00 Test Item Value Reference Range Comments POC-GLUCOSE METER (BEAKER) 111 mg/dL 70-110 TESTED AT [address] (test pfhc=5578) [place] [address] CBC W/PLT COUNT & AUTO [id number] 07:40:00 Test Item Value Reference Range Comments WHITE BLOOD CELL COUNT (BEAKER) (test scxs=685) 11.9 K/ L 4.0-10.0 RED BLOOD CELL COUNT (BEAKER) (test bvox=137) 3.11 M/ L 4.20-5.80 HEMOGLOBIN (BEAKER) (test ognn=689) 8.9 GM/DL 13.0-16.8 HEMATOCRIT (BEAKER) (test xkst=954) 28.0 % 40.0-50.0 MEAN CORPUSCULAR VOLUME (BEAKER) (test jiwj=647) 90.3 fL 82.0-98.0 MEAN CORPUSCULAR HEMOGLOBIN (BEAKER) (test 28.7 pg 27.0-33.0 dsri=024) MEAN CORPUSCULAR HEMOGLOBIN CONC (BEAKER) (test 31.8 GM/DL 32.0-36.0 rgfw=301) RED CELL DISTRIBUTION WIDTH (BEAKER) (test 15.5 % 10.3-14.2 shgr=490) PLATELET COUNT (BEAKER) (test edni=606) 252 K/CU MM 150-430 MEAN PLATELET VOLUME (BEAKER) (test xbsv=366) 7.1 fL 6.5-10.5 NUCLEATED RED BLOOD CELLS (BEAKER) (test 0 /100 WBC 0-0 pyfq=867) NEUTROPHILS RELATIVE PERCENT (BEAKER) (test 69 % fsbj=987) LYMPHOCYTES RELATIVE PERCENT (BEAKER) (test 18 % szoi=591) MONOCYTES RELATIVE PERCENT (BEAKER) (test 11 % pgie=976) EOSINOPHILS RELATIVE PERCENT (BEAKER) (test 2 % xtqf=193) BASOPHILS RELATIVE PERCENT (BEAKER) (test 0 % vfkz=660) NEUTROPHILS ABSOLUTE COUNT (BEAKER) (test 8.27 K/ L 1.80-8.00 bxrv=619) LYMPHOCYTES ABSOLUTE COUNT (BEAKER) (test 2.09 K/ L 1.48-4.50 blap=153) MONOCYTES ABSOLUTE COUNT (BEAKER) (test 1.35 K/ L 0.00-1.30 zsok=966) EOSINOPHILS ABSOLUTE COUNT (BEAKER) (test 0.19 K/ L 0.00-0.50 nzar=774) BASOPHILS ABSOLUTE COUNT (BEAKER) (test 0.04 K/ L 0.00-0.20 lmwa=620) [id number] 07:29:00 Test Item Value Reference Range Comments PHOSPHORUS (BEAKER) (test aygi=650) 1.8 mg/dL 2.3-4.7 [id number] 07:29:00 Test Item Value Reference Range Comments MAGNESIUM (BEAKER) (test jrvy=725) 1.6 mg/dL 1.6-2.6 BASIC METABOLIC [id number] 07:29:00 Test Item Value Reference Range Comments SODIUM (BEAKER) (test 135 meq/L 136-145 wdmn=860) POTASSIUM (BEAKER) (test 3.7 meq/L 3.5-5.1 vsfi=212) CHLORIDE (BEAKER) (test 104 meq/L 98-107 sdtl=383) CO2 (BEAKER) (test 24 meq/L 22-29 dirg=478) BLOOD UREA NITROGEN 12 mg/dL 7-21 (BEAKER) (test zpjl=193) CREATININE (BEAKER) (test 2.00 mg/dL 0.57-1.25 kwek=472) GLUCOSE RANDOM (BEAKER) 81 mg/dL 70-105 (test yrry=247) CALCIUM (BEAKER) (test 8.2 mg/dL 8.4-10.2 kdvf=224) EGFR (BEAKER) (test 34 mL/min/1.73 sq m ESTIMATED GFR IS NOT gkpm=7167) ACCURATE CREATININE CLEARANCE IN PREDICTING GLOMERULAR FILTRATION RATE. ESTIMATED GFR IS NOT APPLICABLE FOR DIALYSIS PATIENTS. POCT-GLUCOSE [id number] 21:13:00 Test Item Value Reference Range Comments POC-GLUCOSE METER (BEAKER) 107 mg/dL 70-110 TESTED AT [address] (test fxsf=8041) [facility] [address] POCT-GLUCOSE [id number] 17:33:00 Test Item Value Reference Range Comments POC-GLUCOSE METER (BEAKER) 131 mg/dL 70-110 TESTED AT [address] (test znjn=2847) [facility] [address] POCT-GLUCOSE [id number] 13:05:00 Test Item Value Reference Range Comments POC-GLUCOSE METER (BEAKER) 188 mg/dL 70-110 TESTED AT [address] (test lzsz=4660) [facility] [address] POCT-GLUCOSE [id number] 09:01:00 Test Item Value Reference Range Comments POC-GLUCOSE METER (BEAKER) 103 mg/dL 70-110 TESTED AT [place] [id number] [facility] (test ybhf=7732) [facility] [address] CBC W/PLT COUNT & AUTO [id number] 07:08:00 Test Item Value Reference Range Comments WHITE BLOOD CELL COUNT (BEAKER) (test yyyf=459) 12.7 K/ L 4.0-10.0 RED BLOOD CELL COUNT (BEAKER) (test ychd=087) 3.09 M/ L 4.20-5.80 HEMOGLOBIN (BEAKER) (test dukw=213) 9.0 GM/DL 13.0-16.8 HEMATOCRIT (BEAKER) (test mnhj=608) 27.4 % 40.0-50.0 MEAN CORPUSCULAR VOLUME (BEAKER) (test vdje=353) 88.8 fL 82.0-98.0 MEAN CORPUSCULAR HEMOGLOBIN (BEAKER) (test 29.0 pg 27.0-33.0 gzhv=827) MEAN CORPUSCULAR HEMOGLOBIN CONC (BEAKER) (test 32.7 GM/DL 32.0-36.0 sbch=109) RED CELL DISTRIBUTION WIDTH (BEAKER) (test 15.7 % 10.3-14.2 snnp=857) PLATELET COUNT (BEAKER) (test keel=154) 257 K/CU MM 150-430 MEAN PLATELET VOLUME (BEAKER) (test kosa=363) 7.0 fL 6.5-10.5 NUCLEATED RED BLOOD CELLS (BEAKER) (test 0 /100 WBC 0-0 rbhy=138) NEUTROPHILS RELATIVE PERCENT (BEAKER) (test 74 % zkwp=564) LYMPHOCYTES RELATIVE PERCENT (BEAKER) (test 14 % uvqj=941) MONOCYTES RELATIVE PERCENT (BEAKER) (test 9 % fkvy=566) EOSINOPHILS RELATIVE PERCENT (BEAKER) (test 2 % mhxg=788) BASOPHILS RELATIVE PERCENT (BEAKER) (test 0 % vcol=511) NEUTROPHILS ABSOLUTE COUNT (BEAKER) (test 9.38 K/ L 1.80-8.00 aina=660) LYMPHOCYTES ABSOLUTE COUNT (BEAKER) (test 1.80 K/ L 1.48-4.50 esnk=639) MONOCYTES ABSOLUTE COUNT (BEAKER) (test 1.20 K/ L 0.00-1.30 tqea=561) EOSINOPHILS ABSOLUTE COUNT (BEAKER) (test 0.24 K/ L 0.00-0.50 ufyg=958) BASOPHILS ABSOLUTE COUNT (BEAKER) (test 0.05 K/ L 0.00-0.20 yvta=418) [id number] 06:17:00 Test Item Value Reference Range Comments PHOSPHORUS (BEAKER) (test ttac=759) 2.4 mg/dL 2.3-4.7 [id number] 06:17:00 Test Item Value Reference Range Comments MAGNESIUM (BEAKER) (test cxya=638) 1.5 mg/dL 1.6-2.6 BASIC METABOLIC [id number] 06:17:00 Test Item Value Reference Range Comments SODIUM (BEAKER) (test 135 meq/L 136-145 yyvh=537) POTASSIUM (BEAKER) (test 3.7 meq/L 3.5-5.1 ajod=820) CHLORIDE (BEAKER) (test 104 meq/L 98-107 nbks=177) CO2 (BEAKER) (test 23 meq/L 22-29 bhir=924) BLOOD UREA NITROGEN 24 mg/dL 7-21 (BEAKER) (test gqeh=009) CREATININE (BEAKER) (test 2.70 mg/dL 0.57-1.25 rbcr=341) GLUCOSE RANDOM (BEAKER) 93 mg/dL 70-105 (test vljk=889) CALCIUM (BEAKER) (test 8.4 mg/dL 8.4-10.2 hltt=846) EGFR (BEAKER) (test 24 mL/min/1.73 sq m ESTIMATED GFR IS NOT wvfs=6575) ACCURATE CREATININE CLEARANCE IN PREDICTING GLOMERULAR FILTRATION RATE. ESTIMATED GFR IS NOT APPLICABLE FOR DIALYSIS PATIENTS. POCT-GLUCOSE [id number] 23:43:00 Test Item Value Reference Range Comments POC-GLUCOSE METER (BEAKER) 100 mg/dL 70-110 TESTED AT [facility] [address] (test bmuo=1482) [facility] [address] POCT-GLUCOSE [id number] 17:44:00 Test Item Value Reference Range Comments POC-GLUCOSE METER (BEAKER) 208 mg/dL 70-110 TESTED AT [address] (test ocbn=3100) [facility] [address] ANAEROBIC [id number] 14:43:00 Test Item Value Reference Range Comments CULTURE (BEAKER) (test rrmx=1738) No anaerobes isolated ANAEROBIC [id number] 14:42:00 Test Item Value Reference Range Comments CULTURE (BEAKER) (test mcmz=8590) No anaerobes isolated POCT-GLUCOSE [id number] 12:02:00 Test Item Value Reference Range Comments POC-GLUCOSE METER (BEAKER) 208 mg/dL 70-110 TESTED AT [address] (test wwtk=5867) [place] [id number] POCT-GLUCOSE [id number] 09:52:00 Test Item Value Reference Range Comments POC-GLUCOSE METER (BEAKER) 86 mg/dL 70-110 TESTED AT [address] (test gvup=3521) [facility] [address] CBC W/PLT COUNT & AUTO [id number] 07:11:00 Test Item Value Reference Range Comments WHITE BLOOD CELL COUNT (BEAKER) (test uhsy=407) 11.1 K/ L 4.0-10.0 RED BLOOD CELL COUNT (BEAKER) (test dzeb=991) 3.26 M/ L 4.20-5.80 HEMOGLOBIN (BEAKER) (test xbdt=659) 9.6 GM/DL 13.0-16.8 HEMATOCRIT (BEAKER) (test mucq=938) 29.4 % 40.0-50.0 MEAN CORPUSCULAR VOLUME (BEAKER) (test fzxu=000) 90.2 fL 82.0-98.0 MEAN CORPUSCULAR HEMOGLOBIN (BEAKER) (test 29.5 pg 27.0-33.0 wxqx=646) MEAN CORPUSCULAR HEMOGLOBIN CONC (BEAKER) (test 32.7 GM/DL 32.0-36.0 zcvc=658) RED CELL DISTRIBUTION WIDTH (BEAKER) (test 14.7 % 10.3-14.2 jjop=383) PLATELET COUNT (BEAKER) (test edew=885) 280 K/CU MM 150-430 MEAN PLATELET VOLUME (BEAKER) (test ljvi=413) 6.8 fL 6.5-10.5 NUCLEATED RED BLOOD CELLS (BEAKER) (test 0 /100 WBC 0-0 repe=789) NEUTROPHILS RELATIVE PERCENT (BEAKER) (test 73 % ygau=123) LYMPHOCYTES RELATIVE PERCENT (BEAKER) (test 15 % tire=996) MONOCYTES RELATIVE PERCENT (BEAKER) (test 10 % sctr=196) EOSINOPHILS RELATIVE PERCENT (BEAKER) (test 2 % banz=354) BASOPHILS RELATIVE PERCENT (BEAKER) (test 0 % ipmh=331) NEUTROPHILS ABSOLUTE COUNT (BEAKER) (test 8.08 K/ L 1.80-8.00 ehwt=790) LYMPHOCYTES ABSOLUTE COUNT (BEAKER) (test 1.66 K/ L 1.48-4.50 lfkj=999) MONOCYTES ABSOLUTE COUNT (BEAKER) (test 1.06 K/ L 0.00-1.30 qgph=765) EOSINOPHILS ABSOLUTE COUNT (BEAKER) (test 0.26 K/ L 0.00-0.50 axxv=480) BASOPHILS ABSOLUTE COUNT (BEAKER) (test 0.05 K/ L 0.00-0.20 dzrw=159) [id number] 06:02:00 Test Item Value Reference Range Comments PHOSPHORUS (BEAKER) (test hozi=530) 1.7 mg/dL 2.3-4.7 [id number] 06:02:00 Test Item Value Reference Range Comments MAGNESIUM (BEAKER) (test owiz=920) 1.5 mg/dL 1.6-2.6 BASIC METABOLIC [id number] 06:02:00 Test Item Value Reference Range Comments SODIUM (BEAKER) (test 136 meq/L 136-145 iner=656) POTASSIUM (BEAKER) (test 3.9 meq/L 3.5-5.1 krtc=696) CHLORIDE (BEAKER) (test 103 meq/L 98-107 bbku=711) CO2 (BEAKER) (test 25 meq/L 22-29 zkfn=662) BLOOD UREA NITROGEN 13 mg/dL 7-21 (BEAKER) (test otxv=688) CREATININE (BEAKER) (test 1.67 mg/dL 0.57-1.25 yaxk=360) GLUCOSE RANDOM (BEAKER) 74 mg/dL 70-105 (test yunp=350) CALCIUM (BEAKER) (test 8.7 mg/dL 8.4-10.2 gpbi=387) EGFR (BEAKER) (test 42 mL/min/1.73 sq m ESTIMATED GFR IS NOT ynfy=9578) ACCURATE CREATININE CLEARANCE IN PREDICTING GLOMERULAR FILTRATION RATE. ESTIMATED GFR IS NOT APPLICABLE FOR DIALYSIS PATIENTS. POCT-GLUCOSE [id number] 21:46:00 Test Item Value Reference Range Comments POC-GLUCOSE METER (BEAKER) 83 mg/dL 70-110 TESTED AT [address] (test bcpc=2800) [place] [id number] POCT-GLUCOSE [id number] 17:45:00 Test Item Value Reference Range Comments POC-GLUCOSE METER (BEAKER) 83 mg/dL 70-110 TESTED AT [address] (test ljmf=7829) [place] [address] POCT-GLUCOSE [id number] 11:03:00 Test Item Value Reference Range Comments POC-GLUCOSE METER (BEAKER) 152 mg/dL 70-110 TESTED AT [address] (test jqyz=5200) [place] [address] CBC W/PLT COUNT & AUTO [id number] 08:54:00 Test Item Value Reference Range Comments WHITE BLOOD CELL COUNT (BEAKER) (test ilwh=888) 14.2 K/ L 4.0-10.0 RED BLOOD CELL COUNT (BEAKER) (test xpvb=360) 2.99 M/ L 4.20-5.80 HEMOGLOBIN (BEAKER) (test vyyo=813) 8.6 GM/DL 13.0-16.8 HEMATOCRIT (BEAKER) (test opxf=566) 27.1 % 40.0-50.0 MEAN CORPUSCULAR VOLUME (BEAKER) (test aepx=242) 90.6 fL 82.0-98.0 MEAN CORPUSCULAR HEMOGLOBIN (BEAKER) (test 28.6 pg 27.0-33.0 uxvw=174) MEAN CORPUSCULAR HEMOGLOBIN CONC (BEAKER) (test 31.6 GM/DL 32.0-36.0 cbuu=041) RED CELL DISTRIBUTION WIDTH (BEAKER) (test 14.6 % 10.3-14.2 fekq=604) PLATELET COUNT (BEAKER) (test cohe=746) 285 K/CU MM 150-430 MEAN PLATELET VOLUME (BEAKER) (test urhv=635) 7.1 fL 6.5-10.5 NUCLEATED RED BLOOD CELLS (BEAKER) (test 0 /100 WBC 0-0 wita=286) NEUTROPHILS RELATIVE PERCENT (BEAKER) (test 79 % qrkv=432) LYMPHOCYTES RELATIVE PERCENT (BEAKER) (test 10 % xaho=598) MONOCYTES RELATIVE PERCENT (BEAKER) (test 9 % hnyk=824) EOSINOPHILS RELATIVE PERCENT (BEAKER) (test 2 % uhya=351) BASOPHILS RELATIVE PERCENT (BEAKER) (test 0 % vgqy=761) NEUTROPHILS ABSOLUTE COUNT (BEAKER) (test 11.20 K/ L 1.80-8.00 qvhx=895) LYMPHOCYTES ABSOLUTE COUNT (BEAKER) (test 1.40 K/ L 1.48-4.50 xxhy=241) MONOCYTES ABSOLUTE COUNT (BEAKER) (test 1.30 K/ L 0.00-1.30 vwyb=428) EOSINOPHILS ABSOLUTE COUNT (BEAKER) (test 0.27 K/ L 0.00-0.50 vkob=887) BASOPHILS ABSOLUTE COUNT (BEAKER) (test 0.04 K/ L 0.00-0.20 xjdn=983) 0.00BASIC METABOLIC [id number] 08:46:00 Test Item Value Reference Range Comments SODIUM (BEAKER) (test 138 meq/L 136-145 lnxv=257) POTASSIUM (BEAKER) (test 3.8 meq/L 3.5-5.1 lcxd=615) CHLORIDE (BEAKER) (test 103 meq/L 98-107 zmyn=979) CO2 (BEAKER) (test 25 meq/L 22-29 vdsx=713) BLOOD UREA NITROGEN 29 mg/dL 7-21 (BEAKER) (test gxue=909) CREATININE (BEAKER) (test 2.68 mg/dL 0.57-1.25 kuoi=247) GLUCOSE RANDOM (BEAKER) 91 mg/dL 70-105 (test exdt=786) CALCIUM (BEAKER) (test 7.9 mg/dL 8.4-10.2 fggn=675) EGFR (BEAKER) (test 25 mL/min/1.73 sq m ESTIMATED GFR IS NOT voxq=3806) ACCURATE CREATININE CLEARANCE IN PREDICTING GLOMERULAR FILTRATION RATE. ESTIMATED GFR IS NOT APPLICABLE FOR DIALYSIS PATIENTS. VANCOMYCIN LEVEL, [id number] 07:53:00 Test Item Value Reference Range Comments VANCOMYCIN RANDOM (BEAKER) (test kguw=538) 15.1 ug/mL Reference Range: No NormalsPOCT-GLUCOSE [id number] 07:52:00 Test Item Value Reference Range Comments POC-GLUCOSE METER (BEAKER) 126 mg/dL 70-110 TESTED AT [address] (test ryws=1910) [place] [address] [id number] 07:50:00 Test Item Value Reference Range Comments PHOSPHORUS (BEAKER) (test pwam=915) 2.1 mg/dL 2.3-4.7 [id number] 07:50:00 Test Item Value Reference Range Comments MAGNESIUM (BEAKER) (test ehkp=127) 1.7 mg/dL 1.6-2.6 POCT-GLUCOSE [id number] 21:08:00 Test Item Value Reference Range Comments POC-GLUCOSE METER (BEAKER) 234 mg/dL 70-110 TESTED AT [address] (test nudz=7705) [place] [address] POCT-GLUCOSE [id number] 17:02:00 Test Item Value Reference Range Comments POC-GLUCOSE METER (BEAKER) 230 mg/dL 70-110 TESTED AT [address] (test ofhy=0363) [place] [address] SURGICALLY OBTAINED CULTURE + GRAM [id number] 09:26:00 Test Item Value Reference Range Comments CULTURE (BEAKER) (test <1+ Same organism has been vyxm=6987) isolated from cultures(s) of the same body site and collection date. Repeat identification and susceptibility testing performed only after consultation with the clinical microbiology laboratory.Refer to previous culture ofMethicillin resistant Staphylococcus aureus GRAM STAIN RESULT <1+ WBCs (BEAKER) (test ybuf=4569) GRAM STAIN RESULT No organisms seen (BEAKER) (test wshu=098328) SURGICALLY OBTAINED CULTURE + GRAM [id number] 09:25:00 Test Item Value Reference Range Comments CULTURE (BEAKER) (test METHICILLIN RESISTANT <1+ Methicillin svrj=3331) STAPHYLOCOCCUS AUREUS resistant Staphylococcus aureus Clindamycin (test code=10) Erythromycin (test code=4) Linezolid (test code=40) Oxacillin (test code=14) Rifampin (test code=43) Tetracycline (test code=2) Trimethoprim + Sulfamethoxazole (test code=47) Vancomycin (test code=13) CULTURE (BEAKER) (test METHICILLIN RESISTANT <1+ Methicillin gujo=63005) STAPHYLOCOCCUS AUREUS resistant Staphylococcus aureusof a second type Clindamycin (test code=10) Erythromycin (test code=4) Linezolid (test code=40) Oxacillin (test code=14) Rifampin (test code=43) Tetracycline (test code=2) Trimethoprim + Sulfamethoxazole (test code=47) Vancomycin (test code=13) GRAM STAIN RESULT No White blood cells (BEAKER) (test msvl=4178) seen GRAM STAIN RESULT No organisms seen (BEAKER) (test exts=403205) POCT-GLUCOSE [id number] 08:39:00 Test Item Value Reference Range Comments POC-GLUCOSE METER (BEAKER) 129 mg/dL 70-110 TESTED AT [facility] [address] [facility] (test qgip=2055) [facility] [address] CBC W/PLT COUNT & AUTO [id number] 06:51:00 Test Item Value Reference Range Comments WHITE BLOOD CELL COUNT (BEAKER) (test ldox=337) 17.4 K/ L 4.0-10.0 RED BLOOD CELL COUNT (BEAKER) (test bipj=124) 2.99 M/ L 4.20-5.80 HEMOGLOBIN (BEAKER) (test qhbh=913) 8.9 GM/DL 13.0-16.8 HEMATOCRIT (BEAKER) (test wmkr=122) 27.1 % 40.0-50.0 MEAN CORPUSCULAR VOLUME (BEAKER) (test lgkz=603) 90.6 fL 82.0-98.0 MEAN CORPUSCULAR HEMOGLOBIN (BEAKER) (test 29.6 pg 27.0-33.0 qmrp=521) MEAN CORPUSCULAR HEMOGLOBIN CONC (BEAKER) (test 32.7 GM/DL 32.0-36.0 sxzk=477) RED CELL DISTRIBUTION WIDTH (BEAKER) (test 15.3 % 10.3-14.2 xvgv=752) PLATELET COUNT (BEAKER) (test kifj=873) 246 K/CU MM 150-430 MEAN PLATELET VOLUME (BEAKER) (test isyd=128) 6.7 fL 6.5-10.5 NUCLEATED RED BLOOD CELLS (BEAKER) (test 0 /100 WBC 0-0 zrpy=269) NEUTROPHILS RELATIVE PERCENT (BEAKER) (test 83 % oaca=116) LYMPHOCYTES RELATIVE PERCENT (BEAKER) (test 7 % kadi=124) MONOCYTES RELATIVE PERCENT (BEAKER) (test 9 % iglm=878) EOSINOPHILS RELATIVE PERCENT (BEAKER) (test 1 % nfvk=979) BASOPHILS RELATIVE PERCENT (BEAKER) (test 0 % xqpz=241) NEUTROPHILS ABSOLUTE COUNT (BEAKER) (test 14.50 K/ L 1.80-8.00 vsnc=075) LYMPHOCYTES ABSOLUTE COUNT (BEAKER) (test 1.19 K/ L 1.48-4.50 wyzx=019) MONOCYTES ABSOLUTE COUNT (BEAKER) (test 1.56 K/ L 0.00-1.30 eppm=186) EOSINOPHILS ABSOLUTE COUNT (BEAKER) (test 0.13 K/ L 0.00-0.50 bgsk=509) BASOPHILS ABSOLUTE COUNT (BEAKER) (test 0.03 K/ L 0.00-0.20 flxa=513) 0.00BASIC METABOLIC [id number] 05:44:00 Test Item Value Reference Range Comments SODIUM (BEAKER) (test 139 meq/L 136-145 jweo=285) POTASSIUM (BEAKER) (test 3.7 meq/L 3.5-5.1 inol=083) CHLORIDE (BEAKER) (test 104 meq/L 98-107 pklx=605) CO2 (BEAKER) (test 26 meq/L 22-29 sexc=265) BLOOD UREA NITROGEN 19 mg/dL 7-21 (BEAKER) (test bjbj=975) CREATININE (BEAKER) (test 2.08 mg/dL 0.57-1.25 xcqg=504) GLUCOSE RANDOM (BEAKER) 127 mg/dL 70-105 (test ncpn=471) CALCIUM (BEAKER) (test 7.9 mg/dL 8.4-10.2 aldv=398) EGFR (BEAKER) (test 33 mL/min/1.73 sq m ESTIMATED GFR IS NOT ijrx=0960) ACCURATE CREATININE CLEARANCE IN PREDICTING GLOMERULAR FILTRATION RATE. ESTIMATED GFR IS NOT APPLICABLE FOR DIALYSIS PATIENTS. [id number] 05:42:00 Test Item Value Reference Range Comments PHOSPHORUS (BEAKER) (test grrv=641) 2.3 mg/dL 2.3-4.7 [id number] 05:42:00 Test Item Value Reference Range Comments MAGNESIUM (BEAKER) (test ngci=335) 1.7 mg/dL 1.6-2.6 CALCIUM, [id number] 05:21:00 Test Item Value Reference Range Comments CALCIUM IONIZED (BEAKER) (test rpnq=240) 0.99 mmol/L 1.12-1.27 PH, BLOOD (BEAKER) (test onmx=4261) 7.44 POCT-GLUCOSE [id number] 21:08:00 Test Item Value Reference Range Comments POC-GLUCOSE METER (BEAKER) 184 mg/dL 70-110 TESTED AT [address] (test wcks=6218) [place] [id number] POCT-GLUCOSE [id number] 18:10:00 Test Item Value Reference Range Comments POC-GLUCOSE METER (BEAKER) 214 mg/dL 70-110 TESTED AT [address] (test gwqz=8917) [place] [id number] POCT-GLUCOSE [id number] 18:04:00 Test Item Value Reference Range Comments POC-GLUCOSE METER (BEAKER) 169 mg/dL 70-110 TESTED AT [address] (test hjud=3532) [place] [id number] POCT-GLUCOSE [id number] 11:49:00 Test Item Value Reference Range Comments POC-GLUCOSE METER (BEAKER) 126 mg/dL 70-110 TESTED AT [address] (test hjib=6749) [place] [id number] POCT-GLUCOSE [id number] 08:17:00 Test Item Value Reference Range Comments POC-GLUCOSE METER (BEAKER) 119 mg/dL 70-110 TESTED AT [address] (test ipgf=6296) [facility] [address] VANCOMYCIN LEVEL, [id number] 06:32:00 Test Item Value Reference Range Comments VANCOMYCIN RANDOM (BEAKER) (test kqyy=193) 13.8 ug/mL Reference Range: No NormalsPOCT-GLUCOSE [id number] 05:54:00 Test Item Value Reference Range Comments POC-GLUCOSE METER (BEAKER) 122 mg/dL 70-110 TESTED AT [address] (test uauw=7938) [facility] [address] B-TYPE NATRIURETIC FACTOR (BNP)2016-12-14 03:44:00 Test Item Value Reference Range Comments B-TYPE NATRIURETIC PEPTIDE (BEAKER) (test 883 pg/mL 0-100 ltnq=917) BASIC METABOLIC [id number] 03:40:00 Test Item Value Reference Range Comments SODIUM (BEAKER) (test 140 meq/L 136-145 kkgj=169) POTASSIUM (BEAKER) (test 4.5 meq/L 3.5-5.1 olhy=060) CHLORIDE (BEAKER) (test 109 meq/L 98-107 ikjd=866) CO2 (BEAKER) (test 23 meq/L 22-29 kxyf=475) BLOOD UREA NITROGEN 21 mg/dL 7-21 (BEAKER) (test gepb=223) CREATININE (BEAKER) (test 2.96 mg/dL 0.57-1.25 zdml=849) GLUCOSE RANDOM (BEAKER) 118 mg/dL 70-105 (test ccch=060) CALCIUM (BEAKER) (test 7.5 mg/dL 8.4-10.2 iyie=918) EGFR (BEAKER) (test 22 mL/min/1.73 sq m ESTIMATED GFR IS NOT rbtp=5359) ACCURATE CREATININE CLEARANCE IN PREDICTING GLOMERULAR FILTRATION RATE. ESTIMATED GFR IS NOT APPLICABLE FOR DIALYSIS PATIENTS. [id number] 03:37:00 Test Item Value Reference Range Comments PHOSPHORUS (BEAKER) (test syob=302) 4.6 mg/dL 2.3-4.7 [id number] 03:37:00 Test Item Value Reference Range Comments MAGNESIUM (BEAKER) (test rveh=488) 1.7 mg/dL 1.6-2.6 CBC W/PLT COUNT & AUTO [id number] 03:36:00 Test Item Value Reference Range Comments WHITE BLOOD CELL COUNT (BEAKER) (test ouch=438) 23.8 K/ L 4.0-10.0 RED BLOOD CELL COUNT (BEAKER) (test kmpi=732) 2.80 M/ L 4.20-5.80 HEMOGLOBIN (BEAKER) (test xaem=049) 8.3 GM/DL 13.0-16.8 HEMATOCRIT (BEAKER) (test nkig=343) 25.7 % 40.0-50.0 MEAN CORPUSCULAR VOLUME (BEAKER) (test phqf=693) 91.8 fL 82.0-98.0 MEAN CORPUSCULAR HEMOGLOBIN (BEAKER) (test 29.6 pg 27.0-33.0 fuea=617) MEAN CORPUSCULAR HEMOGLOBIN CONC (BEAKER) (test 32.2 GM/DL 32.0-36.0 srqh=438) RED CELL DISTRIBUTION WIDTH (BEAKER) (test 14.8 % 10.3-14.2 vbkt=172) PLATELET COUNT (BEAKER) (test eckq=186) 261 K/CU MM 150-430 MEAN PLATELET VOLUME (BEAKER) (test oqec=273) 6.4 fL 6.5-10.5 NUCLEATED RED BLOOD CELLS (BEAKER) (test 0 /100 WBC 0-0 prbp=262) NEUTROPHILS RELATIVE PERCENT (BEAKER) (test 88 % mxqn=113) LYMPHOCYTES RELATIVE PERCENT (BEAKER) (test 6 % hrhp=173) MONOCYTES RELATIVE PERCENT (BEAKER) (test 6 % bbhn=019) EOSINOPHILS RELATIVE PERCENT (BEAKER) (test 0 % ryve=583) BASOPHILS RELATIVE PERCENT (BEAKER) (test 0 % dxrd=386) NEUTROPHILS ABSOLUTE COUNT (BEAKER) (test 21.00 K/ L 1.80-8.00 yjtj=401) LYMPHOCYTES ABSOLUTE COUNT (BEAKER) (test 1.16 K/ L 1.48-4.50 qlpz=749) MONOCYTES ABSOLUTE COUNT (BEAKER) (test 1.53 K/ L 0.00-1.30 ndzh=426) EOSINOPHILS ABSOLUTE COUNT (BEAKER) (test 0.08 K/ L 0.00-0.50 xqcb=765) BASOPHILS ABSOLUTE COUNT (BEAKER) (test 0.03 K/ L 0.00-0.20 fthm=915) 0.00CALCIUM, [id number] 03:20:00 Test Item Value Reference Range Comments CALCIUM IONIZED (BEAKER) (test ipmk=738) 1.02 mmol/L 1.12-1.27 PH, BLOOD (BEAKER) (test fpen=7701) 7.44 POCT-GLUCOSE [id number] 23:20:00 Test Item Value Reference Range Comments POC-GLUCOSE METER (BEAKER) 129 mg/dL 70-110 TESTED AT [facility] [address] [facility] (test qeio=3767) [facility] [address] POCT-GLUCOSE [id number] 16:47:00 Test Item Value Reference Range Comments POC-GLUCOSE METER (BEAKER) 120 mg/dL 70-110 TESTED AT [facility] [address] (test meiv=9943) [place] [address] SPIN/CONCENTRATION [id number] 13:52:00 Test Item Value Reference Range Comments CONCENTRATION CHARGED (BEAKER) (test treo=3304) Done SPIN/CONCENTRATION [id number] 13:52:00 Test Item Value Reference Range Comments CONCENTRATION CHARGED (BEAKER) (test sxtd=2133) Done BLOOD GAS, [id number] 08:32:00 Test Item Value Reference Range Comments PH ARTERIAL (BEAKER) (test lswj=891) 7.41 7.35-7.45 PCO2 ARTERIAL (BEAKER) (test jjld=564) 45 mmHg 35-45 PO2 ARTERIAL (BEAKER) (test hfyh=562) 137 mmHg 80-90 O2 SATURATION ARTERIAL (BEAKER) (test lmpy=825) 98.7 % 96.0-97.0 HCO3 ARTERIAL (BEAKER) (test clsj=964) 28 mmol/L 21-29 BASE EXCESS ARTERIAL (BEAKER) (test mfbz=183) 2.8 mmol/L -2.0-3.0 PATIENT TEMPERATURE (BEAKER) (test setd=2935) 37.0 C FIO2 (BEAKER) (test gihl=5416) 40.0 % CBC W/PLT COUNT & AUTO [id number] 08:04:00 Test Item Value Reference Range Comments WHITE BLOOD CELL COUNT (BEAKER) (test bido=667) 23.6 K/ L 4.0-10.0 RED BLOOD CELL COUNT (BEAKER) (test fvzk=146) 3.04 M/ L 4.20-5.80 HEMOGLOBIN (BEAKER) (test twxq=455) 8.9 GM/DL 13.0-16.8 HEMATOCRIT (BEAKER) (test kslt=025) 26.9 % 40.0-50.0 MEAN CORPUSCULAR VOLUME (BEAKER) (test tzwb=842) 88.6 fL 82.0-98.0 MEAN CORPUSCULAR HEMOGLOBIN (BEAKER) (test 29.4 pg 27.0-33.0 iqek=856) MEAN CORPUSCULAR HEMOGLOBIN CONC (BEAKER) (test 33.2 GM/DL 32.0-36.0 ezxx=825) RED CELL DISTRIBUTION WIDTH (BEAKER) (test 15.4 % 10.3-14.2 vqde=861) PLATELET COUNT (BEAKER) (test yxwn=483) 291 K/CU MM 150-430 MEAN PLATELET VOLUME (BEAKER) (test fely=905) 6.9 fL 6.5-10.5 NUCLEATED RED BLOOD CELLS (BEAKER) (test 0 /100 WBC 0-0 uhvw=882) NEUTROPHILS RELATIVE PERCENT (BEAKER) (test 89 % xdiz=294) LYMPHOCYTES RELATIVE PERCENT (BEAKER) (test 5 % klss=908) MONOCYTES RELATIVE PERCENT (BEAKER) (test 6 % fbil=037) EOSINOPHILS RELATIVE PERCENT (BEAKER) (test 0 % jmod=331) BASOPHILS RELATIVE PERCENT (BEAKER) (test 0 % sowf=439) NEUTROPHILS ABSOLUTE COUNT (BEAKER) (test 21.00 K/ L 1.80-8.00 bczi=731) LYMPHOCYTES ABSOLUTE COUNT (BEAKER) (test 1.17 K/ L 1.48-4.50 vxms=105) MONOCYTES ABSOLUTE COUNT (BEAKER) (test 1.37 K/ L 0.00-1.30 wujt=538) EOSINOPHILS ABSOLUTE COUNT (BEAKER) (test 0.04 K/ L 0.00-0.50 qehj=693) BASOPHILS ABSOLUTE COUNT (BEAKER) (test 0.02 K/ L 0.00-0.20 rnab=554) 0.00(MANUAL DIFFERENTIAL)2016-12-13 08:04:00 Test Item Value Reference Range Comments TOTAL COUNTED (BEAKER) (test unwf=0681) WBC MORPHOLOGY (BEAKER) (test gcxu=833) Normal PLT MORPHOLOGY (BEAKER) (test usrr=805) Normal HYPOCHROMIA (BEAKER) (test zioe=703) 1+ few POCT-GLUCOSE [id number] 07:23:00 Test Item Value Reference Range Comments POC-GLUCOSE METER (BEAKER) 116 mg/dL 70-110 TESTED AT [address] (test rvcs=3792) [facility] [address] POCT-GLUCOSE [id number] 06:31:00 Test Item Value Reference Range Comments POC-GLUCOSE METER (BEAKER) 115 mg/dL 70-110 TESTED AT [address] (test ramo=2390) [facility] [address] CALCIUM, [id number] 05:09:00 Test Item Value Reference Range Comments CALCIUM IONIZED (BEAKER) (test pyzj=296) 1.06 mmol/L 1.12-1.27 PH, BLOOD (BEAKER) (test ywwq=6869) 7.46 BASIC METABOLIC [id number] 04:49:00 Test Item Value Reference Range Comments SODIUM (BEAKER) (test 139 meq/L 136-145 axpa=706) POTASSIUM (BEAKER) (test 4.5 meq/L 3.5-5.1 lhec=416) CHLORIDE (BEAKER) (test 106 meq/L 98-107 dvsy=830) CO2 (BEAKER) (test 26 meq/L 22-29 npro=240) BLOOD UREA NITROGEN 14 mg/dL 7-21 (BEAKER) (test pvly=772) CREATININE (BEAKER) (test 2.20 mg/dL 0.57-1.25 nhqz=383) GLUCOSE RANDOM (BEAKER) 138 mg/dL 70-105 (test nqyc=132) CALCIUM (BEAKER) (test 7.8 mg/dL 8.4-10.2 cffn=405) EGFR (BEAKER) (test 31 mL/min/1.73 sq m ESTIMATED GFR IS NOT bjjj=4458) ACCURATE CREATININE CLEARANCE IN PREDICTING GLOMERULAR FILTRATION RATE. ESTIMATED GFR IS NOT APPLICABLE FOR DIALYSIS PATIENTS. [id number] 04:47:00 Test Item Value Reference Range Comments PHOSPHORUS (BEAKER) (test qfuv=027) 3.8 mg/dL 2.3-4.7 [id number] 04:47:00 Test Item Value Reference Range Comments MAGNESIUM (BEAKER) (test iwtn=366) 1.6 mg/dL 1.6-2.6 POCT-GLUCOSE [id number] 00:17:00 Test Item Value Reference Range Comments POC-GLUCOSE METER (BEAKER) 165 mg/dL 70-110 TESTED AT [place] [id number] [facility] (test bkbl=8741) [facility] [address] POCT-GLUCOSE [id number] 19:50:00 Test Item Value Reference Range Comments POC-GLUCOSE METER (BEAKER) 150 mg/dL 70-110 TESTED AT [address] (test uvew=3505) [facility] [address] GLUCOSE-STAT [id number] 16:40:00 Test Item Value Reference Range Comments GLUCOSE RANDOM (BEAKER) (test xkdv=846) 93 mg/dL 70-110 SODIUM NA-STAT [id number] 16:40:00 Test Item Value Reference Range Comments SODIUM (BEAKER) (test tgdp=948) 136 meq/L 135-148 POTASSIUM-STAT [id number] 16:40:00 Test Item Value Reference Range Comments POTASSIUM (BEAKER) (test diyc=837) 3.8 meq/L 3.6-5.5 BLOOD GAS, [id number] 16:40:00 Test Item Value Reference Range Comments PH ARTERIAL (BEAKER) (test rdtj=339) 7.45 7.35-7.45 PCO2 ARTERIAL (BEAKER) (test zjqv=297) 46 mmHg 35-45 PO2 ARTERIAL (BEAKER) (test wlts=030) 371 mmHg 80-90 O2 SATURATION ARTERIAL (BEAKER) (test iqsu=397) 99.8 % 96.0-97.0 HCO3 ARTERIAL (BEAKER) (test pxdh=531) 31 mmol/L 21-29 BASE EXCESS ARTERIAL (BEAKER) (test fngm=352) 6.0 mmol/L -2.0-3.0 PATIENT TEMPERATURE (BEAKER) (test owoh=3277) 37.0 C FIO2 (BEAKER) (test jyst=1717) 60.0 % HGB/HCT (H&H) - STAT [id number] 16:40:00 Test Item Value Reference Range Comments HEMOGLOBIN (BEAKER) (test huaj=111) 6.3 g/dL 13.0-16.8 HEMATOCRIT (BEAKER) (test jger=624) 19.0 % 40.0-50.0 GLUCOSE-STAT [id number] 16:14:00 Test Item Value Reference Range Comments GLUCOSE RANDOM (BEAKER) (test uaco=451) 89 mg/dL 70-110 [id number] 13:22:00 Test Item Value Reference Range Comments PARTIAL THROMBOPLASTIN TIME (BEAKER) (test 80.1 seconds 22.5-36.0 ebdx=740) POCT-GLUCOSE [id number] 11:57:00 Test Item Value Reference Range Comments POC-GLUCOSE METER (BEAKER) 82 mg/dL 70-110 TESTED AT [address] (test hvlq=7183) [facility] [address] POCT-GLUCOSE [id number] 08:15:00 Test Item Value Reference Range Comments POC-GLUCOSE METER (BEAKER) 90 mg/dL 70-110 TESTED AT [place] [id number] [facility] (test jbgx=6929) [facility] [address] CBC W/PLT COUNT & AUTO [id number] 05:50:00 Test Item Value Reference Range Comments WHITE BLOOD CELL COUNT (BEAKER) (test tcnj=263) 13.9 K/ L 4.0-10.0 RED BLOOD CELL COUNT (BEAKER) (test kbsc=500) 2.42 M/ L 4.20-5.80 HEMOGLOBIN (BEAKER) (test bhxo=526) 7.2 GM/DL 13.0-16.8 HEMATOCRIT (BEAKER) (test ijoj=054) 21.8 % 40.0-50.0 MEAN CORPUSCULAR VOLUME (BEAKER) (test kher=767) 90.3 fL 82.0-98.0 MEAN CORPUSCULAR HEMOGLOBIN (BEAKER) (test 29.5 pg 27.0-33.0 lsvt=798) MEAN CORPUSCULAR HEMOGLOBIN CONC (BEAKER) (test 32.7 GM/DL 32.0-36.0 xyhy=099) RED CELL DISTRIBUTION WIDTH (BEAKER) (test 15.9 % 10.3-14.2 xutz=495) PLATELET COUNT (BEAKER) (test bxsw=839) 282 K/CU MM 150-430 MEAN PLATELET VOLUME (BEAKER) (test wxbz=595) 6.8 fL 6.5-10.5 NUCLEATED RED BLOOD CELLS (BEAKER) (test 0 /100 WBC 0-0 jhzv=623) NEUTROPHILS RELATIVE PERCENT (BEAKER) (test 78 % jldk=492) LYMPHOCYTES RELATIVE PERCENT (BEAKER) (test 11 % lcpp=782) MONOCYTES RELATIVE PERCENT (BEAKER) (test 9 % yxhz=417) EOSINOPHILS RELATIVE PERCENT (BEAKER) (test 1 % jsjz=000) BASOPHILS RELATIVE PERCENT (BEAKER) (test 0 % eqmd=379) NEUTROPHILS ABSOLUTE COUNT (BEAKER) (test 10.80 K/ L 1.80-8.00 aiar=168) LYMPHOCYTES ABSOLUTE COUNT (BEAKER) (test 1.57 K/ L 1.48-4.50 pcet=076) MONOCYTES ABSOLUTE COUNT (BEAKER) (test 1.30 K/ L 0.00-1.30 ssql=541) EOSINOPHILS ABSOLUTE COUNT (BEAKER) (test 0.20 K/ L 0.00-0.50 lqqk=992) BASOPHILS ABSOLUTE COUNT (BEAKER) (test 0.04 K/ L 0.00-0.20 ujhw=776) 0.00CALCIUM, [id number] 05:43:00 Test Item Value Reference Range Comments CALCIUM IONIZED (BEAKER) (test acki=236) 0.97 mmol/L 1.12-1.27 PH, BLOOD (BEAKER) (test yjqw=1815) 7.51 BASIC METABOLIC [id number] 05:35:00 Test Item Value Reference Range Comments SODIUM (BEAKER) (test 132 meq/L 136-145 nafw=244) POTASSIUM (BEAKER) (test 4.2 meq/L 3.5-5.1 anzu=029) CHLORIDE (BEAKER) (test 102 meq/L 98-107 wacz=729) CO2 (BEAKER) (test 22 meq/L 22-29 rral=231) BLOOD UREA NITROGEN 26 mg/dL 7-21 (BEAKER) (test ynyp=921) CREATININE (BEAKER) (test 3.57 mg/dL 0.57-1.25 mjdx=781) GLUCOSE RANDOM (BEAKER) 69 mg/dL 70-105 (test xchl=279) CALCIUM (BEAKER) (test 7.6 mg/dL 8.4-10.2 bdyk=946) EGFR (BEAKER) (test 18 mL/min/1.73 sq m ESTIMATED GFR IS NOT bvrn=8603) ACCURATE CREATININE CLEARANCE IN PREDICTING GLOMERULAR FILTRATION RATE. ESTIMATED GFR IS NOT APPLICABLE FOR DIALYSIS PATIENTS. [id number] 05:31:00 Test Item Value Reference Range Comments PHOSPHORUS (BEAKER) (test azgs=450) 3.7 mg/dL 2.3-4.7 [id number] 05:31:00 Test Item Value Reference Range Comments MAGNESIUM (BEAKER) (test fdea=473) 1.8 mg/dL 1.6-2.6 [id number] 05:30:00 Test Item Value Reference Range Comments PARTIAL THROMBOPLASTIN TIME (BEAKER) (test 44.4 seconds 22.5-36.0 jgth=912) PROTHROMBIN [id number] 05:29:00 Test Item Value Reference Range Comments PROTIME (BEAKER) (test bqfa=762) 14.5 seconds 11.7-14.7 INR (BEAKER) (test ronm=083) 1.1 <=5.9 RECOMMENDED COUMADIN/WARFARIN INR THERAPY RANGESSTANDARD DOSE: 2.0 - 3.0 Includes: PROPHYLAXIS forvenous thrombosis, systemic embolization; TREATMENT for venous thrombosis and/or pulmonary embolus.HIGH RISK: Target INR is 2.5-3.5 for patients with mechanical heart valves.POCT-GLUCOSE [id number] 22:10:00 Test Item Value Reference Range Comments POC-GLUCOSE METER (BEAKER) 106 mg/dL 70-110 TESTED AT [address] (test zfsd=0880) [place] [address] POCT-GLUCOSE [id number] 17:31:00 Test Item Value Reference Range Comments POC-GLUCOSE METER (BEAKER) 114 mg/dL 70-110 TESTED AT [address] (test orqg=1388) [place] [address] [id number] 15:36:00 Test Item Value Reference Range Comments PARTIAL THROMBOPLASTIN TIME (BEAKER) (test 38.5 seconds 22.5-36.0 uuzy=320) PROTHROMBIN [id number] 15:35:00 Test Item Value Reference Range Comments PROTIME (BEAKER) (test xxej=320) 14.6 seconds 11.7-14.7 INR (BEAKER) (test talk=227) 1.2 <=5.9 RECOMMENDED COUMADIN/WARFARIN INR THERAPY RANGESSTANDARD DOSE: 2.0 - 3.0 Includes: PROPHYLAXIS forvenous thrombosis, systemic embolization; TREATMENT for venous thrombosis and/or pulmonary embolus.HIGH RISK: Target INR is 2.5-3.5 for patients with mechanical heart valves.POCT-GLUCOSE [id number] 12:12:00 Test Item Value Reference Range Comments POC-GLUCOSE METER (BEAKER) 130 mg/dL 70-110 TESTED AT [address] (test cbfy=1631) [place] [id number] POCT-GLUCOSE [id number] 08:04:00 Test Item Value Reference Range Comments POC-GLUCOSE METER (BEAKER) 96 mg/dL 70-110 TESTED AT [address] (test ppta=8287) [facility] [address] VANCOMYCIN LEVEL, [id number] 07:30:00 Test Item Value Reference Range Comments VANCOMYCIN RANDOM (BEAKER) (test dwiy=635) 21.2 ug/mL Reference Range: No NormalsPOCT-GLUCOSE [id number] 20:25:00 Test Item Value Reference Range Comments POC-GLUCOSE METER (BEAKER) 152 mg/dL 70-110 TESTED AT [address] (test ckyv=8071) [place] [id number] POCT-GLUCOSE [id number] 17:23:00 Test Item Value Reference Range Comments POC-GLUCOSE METER (BEAKER) 161 mg/dL 70-110 TESTED AT [address] (test ikih=8500) [place] [id number] [id number] 13:34:00 Test Item Value Reference Range Comments PROTIME (BEAKER) (test kycq=699) 15.4 seconds 11.7-14.7 INR (BEAKER) (test gwbo=996) 1.2 <=5.9 PARTIAL THROMBOPLASTIN TIME (BEAKER) (test 51.5 seconds 22.5-36.0 bwoc=067) RECOMMENDED COUMADIN/WARFARIN INR THERAPY RANGESSTANDARD DOSE: 2.0 - 3.0 Includes: PROPHYLAXIS forvenous thrombosis, systemic embolization; TREATMENT for venous thrombosis and/or pulmonary embolus.HIGH RISK: Target INR is 2.5-3.5 for patients with mechanical heart valves.POCT-GLUCOSE [id number] 12:11:00 Test Item Value Reference Range Comments POC-GLUCOSE METER (BEAKER) 140 mg/dL 70-110 TESTED AT [address] (test nkai=1964) [place] [id number] CBC W/PLT COUNT & AUTO [id number] 08:02:00 Test Item Value Reference Range Comments WHITE BLOOD CELL COUNT (BEAKER) (test jwng=742) 14.8 K/ L 4.0-10.0 RED BLOOD CELL COUNT (BEAKER) (test hwow=041) 2.40 M/ L 4.20-5.80 HEMOGLOBIN (BEAKER) (test tvpg=327) 7.0 GM/DL 13.0-16.8 HEMATOCRIT (BEAKER) (test iaom=028) 21.6 % 40.0-50.0 MEAN CORPUSCULAR VOLUME (BEAKER) (test qfhf=514) 90.0 fL 82.0-98.0 MEAN CORPUSCULAR HEMOGLOBIN (BEAKER) (test 29.2 pg 27.0-33.0 fsta=215) MEAN CORPUSCULAR HEMOGLOBIN CONC (BEAKER) (test 32.5 GM/DL 32.0-36.0 nkyl=079) RED CELL DISTRIBUTION WIDTH (BEAKER) (test 15.8 % 10.3-14.2 qsdq=261) PLATELET COUNT (BEAKER) (test uaob=817) 276 K/CU MM 150-430 MEAN PLATELET VOLUME (BEAKER) (test bgbx=857) 6.8 fL 6.5-10.5 NUCLEATED RED BLOOD CELLS (BEAKER) (test 0 /100 WBC 0-0 ctsf=805) NEUTROPHILS RELATIVE PERCENT (BEAKER) (test 80 % irpr=891) LYMPHOCYTES RELATIVE PERCENT (BEAKER) (test 10 % ojxh=592) MONOCYTES RELATIVE PERCENT (BEAKER) (test 9 % acde=833) EOSINOPHILS RELATIVE PERCENT (BEAKER) (test 1 % rgas=715) BASOPHILS RELATIVE PERCENT (BEAKER) (test 0 % drnp=382) NEUTROPHILS ABSOLUTE COUNT (BEAKER) (test 11.80 K/ L 1.80-8.00 jyqu=836) LYMPHOCYTES ABSOLUTE COUNT (BEAKER) (test 1.49 K/ L 1.48-4.50 hosb=175) MONOCYTES ABSOLUTE COUNT (BEAKER) (test 1.28 K/ L 0.00-1.30 qnrj=870) EOSINOPHILS ABSOLUTE COUNT (BEAKER) (test 0.17 K/ L 0.00-0.50 qjlk=301) BASOPHILS ABSOLUTE COUNT (BEAKER) (test 0.04 K/ L 0.00-0.20 ovka=369) 0.00VANCOMYCIN LEVEL, [id number] 07:43:00 Test Item Value Reference Range Comments VANCOMYCIN RANDOM (BEAKER) (test xuuv=202) 31.1 ug/mL Reference Range: No NormalsBASIC METABOLIC [id number] 07:30:00 Test Item Value Reference Range Comments SODIUM (BEAKER) (test 134 meq/L 136-145 utvy=138) POTASSIUM (BEAKER) (test 3.6 meq/L 3.5-5.1 zmjk=601) CHLORIDE (BEAKER) (test 100 meq/L 98-107 crpp=507) CO2 (BEAKER) (test 27 meq/L 22-29 njya=894) BLOOD UREA NITROGEN 12 mg/dL 7-21 (BEAKER) (test iokj=058) CREATININE (BEAKER) (test 1.88 mg/dL 0.57-1.25 tfnm=551) GLUCOSE RANDOM (BEAKER) 109 mg/dL 70-105 (test usul=766) CALCIUM (BEAKER) (test 7.7 mg/dL 8.4-10.2 ifne=065) EGFR (BEAKER) (test 37 mL/min/1.73 sq m ESTIMATED GFR IS NOT cjhg=5572) ACCURATE CREATININE CLEARANCE IN PREDICTING GLOMERULAR FILTRATION RATE. ESTIMATED GFR IS NOT APPLICABLE FOR DIALYSIS PATIENTS. [id number] 07:25:00 Test Item Value Reference Range Comments PHOSPHORUS (BEAKER) (test ncaz=137) 2.9 mg/dL 2.3-4.7 [id number] 07:25:00 Test Item Value Reference Range Comments MAGNESIUM (BEAKER) (test dxxi=664) 1.3 mg/dL 1.6-2.6 POCT-GLUCOSE [id number] 07:18:00 Test Item Value Reference Range Comments POC-GLUCOSE METER (BEAKER) 107 mg/dL 70-110 TESTED AT [facility] [address] [facility] (test wcjv=8069) [facility] [address] CALCIUM, [id number] 06:57:00 Test Item Value Reference Range Comments CALCIUM IONIZED (BEAKER) (test jlzj=713) 1.04 mmol/L 1.12-1.27 PH, BLOOD (BEAKER) (test oolm=8714) 7.44 BLOOD [id number] 17:00:00 Test Item Value Reference Range Comments CULTURE (BEAKER) (test tfeo=5095) No growth in 5 days BLOOD [id number] 17:00:00 Test Item Value Reference Range Comments CULTURE (BEAKER) (test lnjt=6652) No growth in 5 days POCT-GLUCOSE [id number] 12:01:00 Test Item Value Reference Range Comments POC-GLUCOSE METER (BEAKER) 128 mg/dL 70-110 TESTED AT [facility] [address] [facility] (test ycvy=1265) [facility] [address] POCT-GLUCOSE [id number] 07:48:00 Test Item Value Reference Range Comments POC-GLUCOSE METER (BEAKER) 100 mg/dL 70-110 TESTED AT [place] [id number] [facility] (test amht=2529) [facility] [address] VANCOMYCIN LEVEL, [id number] 05:36:00 Test Item Value Reference Range Comments VANCOMYCIN RANDOM (BEAKER) (test yrfj=397) 26.8 ug/mL Reference Range: No NormalsSPUTUM CULTURE + GRAM [id number] 00:09:00 Test Item Value Reference Range Comments CULTURE (BEAKER) (test Oropharyngeal contamination, vtkc=2248) specimen rejected. Recollect requested. GRAM STAIN RESULT (BEAKER) No WBCs (test skkd=2079) GRAM STAIN RESULT (BEAKER) >25 epithelial cells (test oyrw=36186) GRAM STAIN RESULT (BEAKER) 4+ gram positive rods (test eyrp=87923) GRAM STAIN RESULT (BEAKER) 4+ gram positive cocci in pairs (test oaux=161899) GRAM STAIN RESULT (BEAKER) 4+ budding yeast (test feqg=699538) POCT-GLUCOSE [id number] 20:17:00 Test Item Value Reference Range Comments POC-GLUCOSE METER (BEAKER) 111 mg/dL 70-110 TESTED AT [facility] [address] [facility] (test umrb=3418) [facility] [address] TSH/FREE T4 IF [id number] 18:39:00 Test Item Value Reference Range Comments THYROID STIMULATING HORMONE (BEAKER) (test 3.14 uIU/mL 0.35-4.94 zwbt=800) VITAMIN B12 AND [id number] 18:39:00 Test Item Value Reference Range Comments VITAMIN B12 (BEAKER) (test cbbt=107) 1407 pg/mL 213-816 FOLATE (BEAKER) (test itbe=919) 16.4 ng/mL >=7.0 Effective 09/08/2014: Folate Reference Range ChangeNew: >=7.0 Previous: & gt;=[id number] 18:12:00 Test Item Value Reference Range Comments CALCIUM (BEAKER) (test jsgu=989) 8.2 mg/dL 8.4-10.2 PROTHROMBIN [id number] 18:07:00 Test Item Value Reference Range Comments PROTIME (BEAKER) (test hpsm=331) 15.5 seconds 11.7-14.7 INR (BEAKER) (test ehfe=468) 1.2 <=5.9 RECOMMENDED COUMADIN/WARFARIN INR THERAPY RANGESSTANDARD DOSE: 2.0 - 3.0 Includes: PROPHYLAXIS forvenous thrombosis, systemic embolization; TREATMENT for venous thrombosis and/or pulmonary embolus.HIGH RISK: Target INR is 2.5-3.5 for patients with mechanical heart valves.[id number] 18:06:00 Test Item Value Reference Range Comments PHOSPHORUS (BEAKER) (test lsyr=569) 3.4 mg/dL 2.3-4.7 [id number] 18:06:00 Test Item Value Reference Range Comments MAGNESIUM (BEAKER) (test mjzu=550) 1.5 mg/dL 1.6-2.6 HEPATIC FUNCTION [id number] 18:06:00 Test Item Value Reference Range Comments TOTAL PROTEIN (BEAKER) (test rxlw=558) 5.9 gm/dL 6.0-8.3 ALBUMIN (BEAKER) (test ffii=7586) 2.3 g/dL 3.5-5.0 BILIRUBIN TOTAL (BEAKER) (test eiae=310) 0.4 mg/dL 0.2-1.2 BILIRUBIN DIRECT (BEAKER) (test edzw=979) 0.2 mg/dL 0.1-0.5 ALKALINE PHOSPHATASE (BEAKER) (test yisg=924) 118 U/L 40-150 AST (SGOT) (BEAKER) (test bjtz=921) 11 U/L 5-34 ALT (SGPT) (BEAKER) (test dwib=981) 7 U/L 6-55 [id number] 17:57:00 Test Item Value Reference Range Comments AMMONIA (BEAKER) (test ncrp=929) 23 mol/L 18-72 POCT-GLUCOSE [id number] 17:55:00 Test Item Value Reference Range Comments POC-GLUCOSE METER (BEAKER) 137 mg/dL 70-110 TESTED AT [address] (test xaqf=9574) [facility] [address] POCT-GLUCOSE [id number] 17:01:00 Test Item Value Reference Range Comments POC-GLUCOSE METER (BEAKER) 62 mg/dL 70-110 TESTED AT [place] [id number] [facility] (test quhm=9528) [facility] [address] [id number] 15:09:00 Test Item Value Reference Range Comments SODIUM (BEAKER) (test jort=796) 138 meq/L 136-145 POTASSIUM (BEAKER) (test 4.0 meq/L 3.5-5.1 Specimen slightly hemolyzed gijz=576) CHLORIDE (BEAKER) (test 105 meq/L 98-107 ondn=553) CO2 (BEAKER) (test srtm=531) 23 meq/L 22-29 BLOOD GAS, [id number] 14:56:00 Test Item Value Reference Range Comments PH ARTERIAL (BEAKER) (test eoje=075) 7.53 7.35-7.45 PCO2 ARTERIAL (BEAKER) (test djvy=225) 35 mmHg 35-45 PO2 ARTERIAL (BEAKER) (test wkjs=248) 70 mmHg 80-90 O2 SATURATION ARTERIAL (BEAKER) (test zmts=644) 95.5 % 96.0-97.0 HCO3 ARTERIAL (BEAKER) (test rzjl=355) 28 mmol/L 21-29 BASE EXCESS ARTERIAL (BEAKER) (test zihc=272) 5.2 mmol/L -2.0-3.0 PATIENT TEMPERATURE (BEAKER) (test vzjt=8589) 37.3 C FIO2 (BEAKER) (test qbsm=9139) 21.0 % CBC W/PLT COUNT & AUTO [id number] 14:56:00 Test Item Value Reference Range Comments WHITE BLOOD CELL COUNT (BEAKER) (test cuco=486) 18.1 K/ L 4.0-10.0 RED BLOOD CELL COUNT (BEAKER) (test fejg=163) 2.43 M/ L 4.20-5.80 HEMOGLOBIN (BEAKER) (test tjdm=202) 7.3 GM/DL 13.0-16.8 HEMATOCRIT (BEAKER) (test sutv=940) 22.2 % 40.0-50.0 MEAN CORPUSCULAR VOLUME (BEAKER) (test zshz=891) 91.7 fL 82.0-98.0 MEAN CORPUSCULAR HEMOGLOBIN (BEAKER) (test 30.0 pg 27.0-33.0 kpts=545) MEAN CORPUSCULAR HEMOGLOBIN CONC (BEAKER) (test 32.7 GM/DL 32.0-36.0 vtwk=755) RED CELL DISTRIBUTION WIDTH (BEAKER) (test 15.7 % 10.3-14.2 byuv=863) PLATELET COUNT (BEAKER) (test euhp=621) 290 K/CU MM 150-430 MEAN PLATELET VOLUME (BEAKER) (test trlz=465) 6.9 fL 6.5-10.5 NUCLEATED RED BLOOD CELLS (BEAKER) (test 0 /100 WBC 0-0 womw=035) NEUTROPHILS RELATIVE PERCENT (BEAKER) (test 84 % hwxl=255) LYMPHOCYTES RELATIVE PERCENT (BEAKER) (test 8 % emxr=572) MONOCYTES RELATIVE PERCENT (BEAKER) (test 8 % wbsc=690) EOSINOPHILS RELATIVE PERCENT (BEAKER) (test 0 % zdak=132) BASOPHILS RELATIVE PERCENT (BEAKER) (test 0 % koly=814) NEUTROPHILS ABSOLUTE COUNT (BEAKER) (test 15.10 K/ L 1.80-8.00 owqx=585) LYMPHOCYTES ABSOLUTE COUNT (BEAKER) (test 1.51 K/ L 1.48-4.50 ytwk=373) MONOCYTES ABSOLUTE COUNT (BEAKER) (test 1.43 K/ L 0.00-1.30 pnyr=812) EOSINOPHILS ABSOLUTE COUNT (BEAKER) (test 0.03 K/ L 0.00-0.50 lrsu=244) BASOPHILS ABSOLUTE COUNT (BEAKER) (test 0.02 K/ L 0.00-0.20 iguj=401) 0.00POCT-GLUCOSE [id number] 12:19:00 Test Item Value Reference Range Comments POC-GLUCOSE METER (BEAKER) 75 mg/dL 70-110 TESTED AT [facility] [address] [facility] (test fper=5443) [facility] [address] [id number] 09:59:00 Test Item Value Reference Range Comments HAPTOGLOBIN (BEAKER) (test ihve=739) > mg/dL 14- Effective 09/08/2014: Reference Range ChangeNew: 14-258 Previous: 36- 195LACTATE DEHYDROGENASE (LDH)2016-12-08 09:56:00 Test Item Value Reference Range Comments LACTATE DEHYDROGENASE (BEAKER) (test nlna=690) 234 U/L 125-220 [id number] 09:35:00 Test Item Value Reference Range Comments FIBRINOGEN LEVEL (BEAKER) (test rbwz=112) 554 mg/dl 225-434 BASIC METABOLIC [id number] 08:56:00 Test Item Value Reference Range Comments SODIUM (BEAKER) (test 139 meq/L 136-145 rakc=848) POTASSIUM (BEAKER) (test 3.0 meq/L 3.5-5.1 zxlf=955) CHLORIDE (BEAKER) (test 114 meq/L 98-107 ebwv=432) CO2 (BEAKER) (test 18 meq/L 22-29 kcxr=584) BLOOD UREA NITROGEN 14 mg/dL 7-21 (BEAKER) (test hkgt=117) CREATININE (BEAKER) (test 1.68 mg/dL 0.57-1.25 tizi=205) GLUCOSE RANDOM (BEAKER) 65 mg/dL 70-105 (test gbxr=242) CALCIUM (BEAKER) (test 6.3 mg/dL 8.4-10.2 gnba=834) EGFR (BEAKER) (test 42 mL/min/1.73 sq m ESTIMATED GFR IS NOT omdd=2351) ACCURATE CREATININE CLEARANCE IN PREDICTING GLOMERULAR FILTRATION RATE. ESTIMATED GFR IS NOT APPLICABLE FOR DIALYSIS PATIENTS. CBC W/PLT COUNT & AUTO [id number] 08:55:00 Test Item Value Reference Range Comments WHITE BLOOD CELL COUNT (BEAKER) (test kwef=016) 12.8 K/ L 4.0-10.0 RED BLOOD CELL COUNT (BEAKER) (test wgys=137) 1.79 M/ L 4.20-5.80 HEMOGLOBIN (BEAKER) (test bqql=924) 5.4 GM/DL 13.0-16.8 HEMATOCRIT (BEAKER) (test wgon=976) 16.7 % 40.0-50.0 MEAN CORPUSCULAR VOLUME (BEAKER) (test pfnr=385) 93.5 fL 82.0-98.0 MEAN CORPUSCULAR HEMOGLOBIN (BEAKER) (test 30.2 pg 27.0-33.0 ijxq=704) MEAN CORPUSCULAR HEMOGLOBIN CONC (BEAKER) (test 32.3 GM/DL 32.0-36.0 jqem=922) RED CELL DISTRIBUTION WIDTH (BEAKER) (test 15.9 % 10.3-14.2 yrqn=380) PLATELET COUNT (BEAKER) (test waii=733) 211 K/CU MM 150-430 MEAN PLATELET VOLUME (BEAKER) (test iklb=986) 6.8 fL 6.5-10.5 NUCLEATED RED BLOOD CELLS (BEAKER) (test 0 /100 WBC 0-0 guoc=439) NEUTROPHILS RELATIVE PERCENT (BEAKER) (test 82 % hqvl=057) LYMPHOCYTES RELATIVE PERCENT (BEAKER) (test 8 % quaq=149) MONOCYTES RELATIVE PERCENT (BEAKER) (test 9 % kwop=102) EOSINOPHILS RELATIVE PERCENT (BEAKER) (test 0 % kdjg=951) BASOPHILS RELATIVE PERCENT (BEAKER) (test 0 % fcug=631) NEUTROPHILS ABSOLUTE COUNT (BEAKER) (test 10.50 K/ L 1.80-8.00 ldaz=885) LYMPHOCYTES ABSOLUTE COUNT (BEAKER) (test 1.08 K/ L 1.48-4.50 fand=531) MONOCYTES ABSOLUTE COUNT (BEAKER) (test 1.17 K/ L 0.00-1.30 nahz=651) EOSINOPHILS ABSOLUTE COUNT (BEAKER) (test 0.06 K/ L 0.00-0.50 zpwh=215) BASOPHILS ABSOLUTE COUNT (BEAKER) (test 0.04 K/ L 0.00-0.20 xomj=286) 0.00LACTIC ACID, VENOUS, WHOLE [id number] 08:52:00 Test Item Value Reference Range Comments LACTATE BLOOD VENOUS (2) (BEAKER) (test 0.5 mmol/L 0.5-2.2 kqdi=8799) Effective 02/23/2016: Units/Reference Range ChangeNew: 0.5-2.2 mmol/L Previous: 5 -20 mg/dLPOCT-GLUCOSE [id number] 07:40:00 Test Item Value Reference Range Comments POC-GLUCOSE METER (BEAKER) 80 mg/dL 70-110 TESTED AT [facility] [address] (test rifa=2427) [facility] [address] POCT-GLUCOSE [id number] 21:47:00 Test Item Value Reference Range Comments POC-GLUCOSE METER (BEAKER) 97 mg/dL 70-110 TESTED AT [address] (test gbbc=0005) [facility] [address] POCT-GLUCOSE [id number] 17:45:00 Test Item Value Reference Range Comments POC-GLUCOSE METER (BEAKER) 115 mg/dL 70-110 TESTED AT [address] (test ltgb=3763) [facility] [address] POCT-GLUCOSE [id number] 12:56:00 Test Item Value Reference Range Comments POC-GLUCOSE METER (BEAKER) 120 mg/dL 70-110 TESTED AT [address] (test idgm=7357) [facility] [address] POCT-GLUCOSE [id number] 12:56:00 Test Item Value Reference Range Comments POC-GLUCOSE METER (BEAKER) 107 mg/dL 70-110 TESTED AT [address] (test cfws=7799) [facility] [address] CBC W/PLT COUNT & AUTO [id number] 11:18:00 Test Item Value Reference Range Comments WHITE BLOOD CELL COUNT (BEAKER) (test efxy=854) 21.4 K/ L 4.0-10.0 RED BLOOD CELL COUNT (BEAKER) (test cash=974) 2.63 M/ L 4.20-5.80 HEMOGLOBIN (BEAKER) (test wnif=967) 7.5 GM/DL 13.0-16.8 HEMATOCRIT (BEAKER) (test blcu=554) 24.1 % 40.0-50.0 MEAN CORPUSCULAR VOLUME (BEAKER) (test sybf=732) 91.8 fL 82.0-98.0 MEAN CORPUSCULAR HEMOGLOBIN (BEAKER) (test 28.6 pg 27.0-33.0 mqmm=992) MEAN CORPUSCULAR HEMOGLOBIN CONC (BEAKER) (test 31.1 GM/DL 32.0-36.0 sjyi=670) RED CELL DISTRIBUTION WIDTH (BEAKER) (test 15.4 % 10.3-14.2 qcrf=289) PLATELET COUNT (BEAKER) (test ixdb=295) 297 K/CU MM 150-430 MEAN PLATELET VOLUME (BEAKER) (test cwcj=882) 7.0 fL 6.5-10.5 NUCLEATED RED BLOOD CELLS (BEAKER) (test 0 /100 WBC 0-0 axsn=769) NEUTROPHILS RELATIVE PERCENT (BEAKER) (test 88 % dmom=418) LYMPHOCYTES RELATIVE PERCENT (BEAKER) (test 6 % rftw=287) MONOCYTES RELATIVE PERCENT (BEAKER) (test 6 % tisa=604) EOSINOPHILS RELATIVE PERCENT (BEAKER) (test 0 % fxfs=259) BASOPHILS RELATIVE PERCENT (BEAKER) (test 0 % rzev=724) NEUTROPHILS ABSOLUTE COUNT (BEAKER) (test 18.90 K/ L 1.80-8.00 ecfk=457) LYMPHOCYTES ABSOLUTE COUNT (BEAKER) (test 1.25 K/ L 1.48-4.50 aswk=102) MONOCYTES ABSOLUTE COUNT (BEAKER) (test 1.26 K/ L 0.00-1.30 rgcg=099) EOSINOPHILS ABSOLUTE COUNT (BEAKER) (test 0.05 K/ L 0.00-0.50 uhxp=525) BASOPHILS ABSOLUTE COUNT (BEAKER) (test 0.01 K/ L 0.00-0.20 suvz=023) 0.000.520.000.000.560.000.000.000.00(MANUAL DIFFERENTIAL)2016-12-07 11:18:00 Test Item Value Reference Range Comments TOTAL COUNTED (BEAKER) (test lveg=7217) CATHETER TIP [id number] 09:38:00 Test Item Value Reference Range Comments CULTURE (BEAKER) (test METHICILLIN RESISTANT 15-29 Colonies On xdfk=6123) STAPHYLOCOCCUS AUREUS Direct Plate Methicillin resistant Staphylococcus aureus Clindamycin (test code=10) Erythromycin (test code=4) Linezolid (test code=40) Oxacillin (test code=14) Rifampin (test code=43) Tetracycline (test code=2) Trimethoprim + Sulfamethoxazole (test code=47) Vancomycin (test code=13) CULTURE (BEAKER) (test <15 Colonies On Direct nzbb=277109) Plate Methicillin resistant Staphylococcus aureusof a second type CALCIUM, [id number] 09:12:00 Test Item Value Reference Range Comments CALCIUM IONIZED (BEAKER) (test txnq=470) 1.04 mmol/L 1.12-1.27 PH, BLOOD (BEAKER) (test btxc=0817) 7.40 BASIC METABOLIC [id number] 07:52:00 Test Item Value Reference Range Comments SODIUM (BEAKER) (test 134 meq/L 136-145 sxov=140) POTASSIUM (BEAKER) (test 4.1 meq/L 3.5-5.1 cdau=536) CHLORIDE (BEAKER) (test 103 meq/L 98-107 pmkq=526) CO2 (BEAKER) (test 20 meq/L 22-29 vjfx=182) BLOOD UREA NITROGEN 37 mg/dL 7-21 (BEAKER) (test vwgv=131) CREATININE (BEAKER) (test 3.25 mg/dL 0.57-1.25 dgnw=924) GLUCOSE RANDOM (BEAKER) 129 mg/dL 70-105 (test akvo=670) CALCIUM (BEAKER) (test 8.1 mg/dL 8.4-10.2 lmyl=489) EGFR (BEAKER) (test 20 mL/min/1.73 sq m ESTIMATED GFR IS NOT ekva=2068) ACCURATE CREATININE CLEARANCE IN PREDICTING GLOMERULAR FILTRATION RATE. ESTIMATED GFR IS NOT APPLICABLE FOR DIALYSIS PATIENTS. [id number] 07:48:00 Test Item Value Reference Range Comments PHOSPHORUS (BEAKER) (test govu=862) 4.8 mg/dL 2.3-4.7 [id number] 07:48:00 Test Item Value Reference Range Comments MAGNESIUM (BEAKER) (test pzzx=725) 1.9 mg/dL 1.6-2.6 ANAEROBIC [id number] 02:42:00 Test Item Value Reference Range Comments CULTURE (BEAKER) (test dqni=6514) No anaerobes isolated POCT-GLUCOSE [id number] 20:57:00 Test Item Value Reference Range Comments POC-GLUCOSE METER (BEAKER) 191 mg/dL 70-110 TESTED AT [address] (test rghb=5397) [facility] [address] VANCOMYCIN LEVEL, [id number] 17:35:00 Test Item Value Reference Range Comments VANCOMYCIN RANDOM (BEAKER) (test azdc=012) 21.9 ug/mL Reference Range: No NormalsPOCT-GLUCOSE [id number] 13:28:00 Test Item Value Reference Range Comments POC-GLUCOSE METER (BEAKER) 202 mg/dL 70-110 TESTED AT [facility] [address] [place] [address] (test fzxf=3418) [facility] [address] POCT-GLUCOSE [id number] 08:30:00 Test Item Value Reference Range Comments POC-GLUCOSE METER (BEAKER) 144 mg/dL 70-110 TESTED AT [facility] [address] (test zusk=0636) [facility] [address] BASIC METABOLIC [id number] 07:04:00 Test Item Value Reference Range Comments SODIUM (BEAKER) (test 134 meq/L 136-145 hiop=335) POTASSIUM (BEAKER) (test 3.8 meq/L 3.5-5.1 xzov=605) CHLORIDE (BEAKER) (test 104 meq/L 98-107 wswv=676) CO2 (BEAKER) (test 21 meq/L 22-29 pdiw=078) BLOOD UREA NITROGEN 33 mg/dL 7-21 (BEAKER) (test hmmc=105) CREATININE (BEAKER) (test 2.91 mg/dL 0.57-1.25 elny=761) GLUCOSE RANDOM (BEAKER) 124 mg/dL 70-105 (test yptq=157) CALCIUM (BEAKER) (test 7.8 mg/dL 8.4-10.2 buwr=738) EGFR (BEAKER) (test 22 mL/min/1.73 sq m ESTIMATED GFR IS NOT omjh=4344) ACCURATE CREATININE CLEARANCE IN PREDICTING GLOMERULAR FILTRATION RATE. ESTIMATED GFR IS NOT APPLICABLE FOR DIALYSIS PATIENTS. PROTHROMBIN [id number] 07:03:00 Test Item Value Reference Range Comments PROTIME (BEAKER) (test hezv=423) 14.7 seconds 11.7-14.7 INR (BEAKER) (test cmqa=006) 1.2 <=5.9 RECOMMENDED COUMADIN/WARFARIN INR THERAPY RANGESSTANDARD DOSE: 2.0 - 3.0 Includes: PROPHYLAXIS forvenous thrombosis, systemic embolization; TREATMENT for venous thrombosis and/or pulmonary embolus.HIGH RISK: Target INR is 2.5-3.5 for patients with mechanical heart valves.[id number] 07:01:00 Test Item Value Reference Range Comments PHOSPHORUS (BEAKER) (test qhye=225) 3.9 mg/dL 2.3-4.7 [id number] 07:01:00 Test Item Value Reference Range Comments MAGNESIUM (BEAKER) (test yqab=296) 1.7 mg/dL 1.6-2.6 CALCIUM, [id number] 06:45:00 Test Item Value Reference Range Comments CALCIUM IONIZED (BEAKER) (test bxls=444) 1.00 mmol/L 1.12-1.27 PH, BLOOD (BEAKER) (test aioe=2748) 7.43 POCT-GLUCOSE [id number] 21:06:00 Test Item Value Reference Range Comments POC-GLUCOSE METER (BEAKER) 167 mg/dL 70-110 TESTED AT [address] (test koyh=0033) [place] [address] POCT-GLUCOSE [id number] 17:43:00 Test Item Value Reference Range Comments POC-GLUCOSE METER (BEAKER) 212 mg/dL 70-110 TESTED AT [address] (test dqli=4540) [place] [address]
--- NOTE | 2018-09-20 14:47 | RAD REPORT ---
EXAM DESCRIPTION: Richelle Single View09/20/2018 2:34 pm CLINICAL HISTORY: Chest pain COMPARISON: September 16, 2018 FINDINGS: Small to moderate left and small right pleural effusions. Mild bilateral interstitial terrie g opacities probably represent interstitial pulmonary edema. The heart remains enlarged. Central venous catheter remains place
[2018-09-20 15:33] LABS: Absolute Lymphocytes (CBC) 0.4 K/uL (0.7-4.9); Absolute Monocytes 2.2 K/uL (0.1-1.3); Absolute Neutrophil 26.5 K/uL (1.8-8.0); Basophils % 0.3 % (0-1.3); Eosinophils % 0.8 % (0-4.4); Hematocrit 34.9 % (39.6-49.0); Lymphocytes % 1.5 % (15.3-44.8); MCH 24.7 pg (27.0-35.0); MCV 77.8 fL (80-100); MPV 7.9 fL (7.6-11.3); Monocytes % 7.4 % (3.3-12.3); RBC Red Blood Cell Count 4.49 M/uL (4.33-5.43)
[2018-09-20 15:37] LABS: Protime INR 1.21
[2018-09-20] MEDS ORDERED: ACETAMINOPHEN 325 MG TABLET ONE (15:43)
--- NOTE | 2018-09-20 16:20 | EKG ---
Test Date: 2018-09-20 Test Time: 14:04:17 Watershed Engineer: SONAL MEASUREMENT RESULTS: Intervals: Rate: 80 MO: 136 QRSD: 122 QT: 438 QTc: 505 [place]: P: 57 MO: 136 QRS: 66 T: 89 INTERPRETIVE STATEMENTS: Normal sinus rhythm Possible Left atrial enlargement Nonspecific intraventricular conduction delay Nonspecific T wave abnormality Abnormal ECG Compared to ECG 09/13/2018 11:45:34 Intraventricular conduction delay now present T-wave abnormality now present Electronically Signed On 09-20-18 16:19:56 X RAY DEVELOPING MACHINE OPERATOR by Júnior Napoles
[2018-09-20 16:41] LABS: Anisocytosis 1+; Blood Morphology Comment NOTED (NOT SEEN); Platelet Estimate ADEQ; Poikilocytosis 1+; Toxic Granulation 1+; Urine White Blood Cell Casts OK
[2018-09-20 16:49] LABS: ALT/SGPT 18 U/L (12-78); AST/SGOT 15 U/L (15-37); Albumin 2.7 g/dL (3.4-5.0); Alkaline Phosphatase 117 U/L (45-117); BUN Blood Urea Nitrogen 32 mg/dL (7-18); Bicarbonate 25 mmol/L (21-32); Bilirubin Direct 0.2 mg/dL (0-0.2); Bilirubin Total 0.5 mg/dL (0.2-1.0); Glucose Level 195 mg/dL (74-106); Magnesium 2.3 mg/dL (1.8-2.4); NT PRO-BNP 109819 pg/mL (<125); Potassium 4.2 mmol/L (3.5-5.1); Protein, Total 7.3 g/dL (6.4-8.2); Sodium Level 136 mmol/L (136-145); Troponin (Emerg Dept Use Only) < 0.02 ng/mL (0.0-0.045)
--- NOTE | 2018-09-20 17:27 | EDPHYS ---
Physician Documentation [facility] Name: Federico Martinez Age: 58 yrs Sex: Male : 1960 Arrival Date: 09/20/2018 Time: 13:12 Bed 15 Private MD: ED Physician Kalia Hooks HPI: 09/20 16:18 This 58 yrs old Male presents to ER via EMS with complaints of elevated WBC. kb 16:18 The patient presents to the emergency department with vomiting. Onset: The kb symptoms/episode began/occurred 2 week(s) ago. Possible causes: GERD. The symptoms are aggravated by nothing. The symptoms are alleviated by nothing. Associated signs and symptoms: Pertinent positives: abdominal pain, fever, GI bleeding, nausea, vomiting. Severity of symptoms: At their worst the symptoms were mild moderate in the emergency department the symptoms are unchanged. The patient has experienced similar episodes in the past. The patient has been recently been admitted at [facility], was discharged earlier this week. [place] had labs [place] [address] [place]. [facility] staff report pt has not had fever or any other complaints. Pt reports he has same symptoms as last time he was here including abd pain, vomiting blood, and shortness of breath. . Historical: - Allergies: 13:23 No Known Allergies; ss - Home Meds: 13:23 albuterol sulfate 2.5 mg /3 mL (0.083 %) Inhl nebu 3 mL q6hrs prn [Active]; amiodarone ss 200 mg Oral tab 1 tab once daily [Active]; arformoterol inhalation 2 times per day [Active]; Atrovent Inhl q 4 hrs prn sob [Active]; carvedilol 6.25 mg Oral tab 1 tab 2 times per day [Active]; Cymbalta 30 mg Oral cpDR 1 cap once daily [Active]; fentanyl 25 mcg/hr Topical pt72 1 patch every 72 hours [Active]; ferrous sulfate 324 mg (65 mg iron) Oral TbEC daily [Active]; Geodon 20 mg Oral cap 1 cap 2 times per day [Active]; nifedipine 60 mg Oral tr24 1 tab twice a day [Active]; [place] 7.5-325 mg Oral tab 1 tab every 6 hours as needed [Active]; Protonix 40 mg Oral TbEC 1 tab 2 times per day [Active]; ramipril 10 mg Oral cap 1 cap nightly [Active]; Simethicone Oral as needed [Active]; Vitamin D3 5,000 unit Oral tab daily [Active]; Zofran (as hydrochloride) 4 mg Oral tab 1 tabs every 4 hours as needed [Active]; - PMHx: 13:23 Anemia; Anxiety; Asthma; Atherosclerotic heart disease; Bipolar disorder; CHF; COPD; ss Dementia; Depression; Diabetes - IDDM; ESRD; GERD; GI Hemorrhage; Hypertension; insomnia; osteomyelitis; Paraplegia; Parkinsons; Post Laminectomy Syndrome; pressure ulcer of left ankle stage II; Sacral Pressure Ulcer Stage III; Schizophrenia; Pressure ulcer of right ankle, stage II; - Immunization history:: Adult Immunizations up to date. - Social history:: Smoking status: Patient/guardian denies using tobacco. - Ebola Screening: : Patient denies exposure to infectious person Patient denies travel to an Ebola-affected area in the 21 days before illness onset. ROS: 16:18 Constitutional: Negative for fever, chills, and weight loss, ENT: Negative for injury, kb pain, and discharge, Neck: Negative for injury, pain, and swelling, Cardiovascular: Negative for chest pain, palpitations, and edema, Back: Negative for injury and pain, : Negative for injury, bleeding, discharge, and swelling, MS/Extremity: Negative for injury and deformity, Skin: Negative for injury, rash, and discoloration, Neuro: Negative for headache, weakness, numbness, tingling, and seizure. 16:18 Respiratory: Positive for shortness of breath, Negative for cough, dyspnea on exertion, hemoptysis, orthopnea, pleurisy, sputum production, wheezing. 16:18 Abdomen/GI: Positive for abdominal pain, nausea and vomiting. Exam: 16:18 Constitutional: This is a well developed, well nourished patient who is awake, alert, kb and in no acute distress. Head/Face: Normocephalic, atraumatic. ENT: Nares patent. No nasal discharge, no septal abnormalities noted. Tympanic membranes are normal and external auditory canals are clear. Oropharynx with no redness, swelling, or masses, exudates, or evidence of obstruction, uvula midline. Mucous membranes moist. Neck: Trachea midline, no thyromegaly or masses palpated, and no cervical lymphadenopathy. Supple, full range of motion without nuchal rigidity, or vertebral point tenderness. No Meningismus. Chest/axilla: Normal chest wall appearance and motion. Nontender with no deformity. No lesions are appreciated. Cardiovascular: Regular rate and rhythm with a normal S1 and S2. No gallops, murmurs, or rubs. Normal PMI, no JVD. No pulse deficits. Respiratory: Lungs have equal breath sounds bilaterally, clear to auscultation and percussion. No rales, rhonchi or wheezes noted. No increased work of breathing, no retractions or nasal flaring. Back: No spinal tenderness. No costovertebral tenderness. Full range of motion. Skin: Warm, dry with normal turgor. Normal color with no rashes, no lesions, and no evidence of cellulitis. MS/ Extremity: Pulses equal, no cyanosis. Neurovascular intact. Full, normal range of motion. Neuro: Awake and alert, GCS 15, oriented to person, place, time, and situation. Cranial nerves II-XII grossly intact. Motor strength 5/5 in all extremities. Sensory grossly intact. Cerebellar exam normal. Normal gait. 16:18 Abdomen/GI: Inspection: abdomen appears normal, Bowel sounds: normal, Palpation: soft, in all quadrants, mild abdominal tenderness, in all quadrants. Vital Signs: 13:23 BP 136 / 57; Pulse 78; Resp 20; Temp 101(O); Pulse Ox 96% on R/A; Height 5 ft. 8 in. ss (172.72 cm); Pain 10/10; 15:32 BP 151 / 73; Pulse 80; Resp 16; Temp 99.0(O); Pulse Ox 95% on R/A; aj1 16:30 BP 129 / 49; Pulse 70; Resp 18; Pulse Ox 98% on R/A; aj1 17:30 BP 122 / 63; Pulse 70; Resp 18; Pulse Ox 96% on R/A; aj1 20:01 BP 120 / 51; Pulse 74; Resp 18; Pulse Ox 96% on R/A; mt 20:30 BP 116 / 63; Pulse 73; Resp 16; Pulse Ox 96% on R/A; jb4 13:23 PT denies "new pain", but 10/10 pain is his chronic pain ss MDM: 13:17 Patient medically screened. kb 16:23 Data reviewed: vital signs, nurses notes. Data interpreted: Pulse oximetry: on room air kb is 95 %. Interpretation: acceptable. 17:25 Counseling: I had a detailed discussion with the patient and/or guardian regarding: the kb historical points, exam findings, and any diagnostic results supporting the discharge/admit diagnosis, lab results, radiology results, the need for further work-up and treatment in the hospital. Physician consultation: Ryan Shaneqing was contacted at 17:25, regarding admission, to the medical/surgical unit. patient's condition, and will see patient in ED, shortly. 09/20 13:41 Order name: Blood Culture Adult (2) 09/20 13:41 Order name: Lactate 09/20 13:41 Order name: Basic Metabolic Panel 09/20 13:41 Order name: CBC with Diff 09/20 13:41 Order name: LFT's 09/20 13:41 Order name: Magnesium 09/20 13:41 Order name: NT PRO-BNP 09/20 13:41 Order name: PT-INR 09/20 13:41 Order name: Troponin (emerg Dept Use Only) 09/20 13:41 Order name: Procalcitonin 09/20 15:38 Order name: CBC with Automated Diff; Complete Time: 16:53 EDMS 09/20 15:52 Order name: Protime (+INR); Complete Time: 15:53 EDMS 09/20 15:53 Order name: Lactate; Complete Time: 15:53 EDMS 09/20 16:08 Order name: Procalcitonin; Complete Time: 16:09 EDMS 09/20 13:41 Order name: XRAY Chest (1 view) 09/20 13:41 Order name: EKG; Complete Time: 13:42 kb 09/20 13:41 Order name: Cardiac monitoring; Complete Time: 15:31 kb 09/20 13:41 Order name: EKG - Nurse/Tech; Complete Time: 15:31 kb 09/20 13:41 Order name: IV Saline Lock; Complete Time: 15:32 kb 09/20 13:41 Order name: Labs collected and sent; Complete Time: 15:32 kb 09/20 13:41 Order name: O2 Per Protocol; Complete Time: 15:32 kb 09/20 13:41 Order name: O2 Sat Monitoring; Complete Time: 15:32 kb 09/20 14:49 Order name: RAD; Complete Time: 14:51 EDWV 09/20 16:42 Order name: CBC Smear Scan; Complete Time: 16:53 EDWV 09/20 17:01 Order name: Basic Metabolic Panel; Complete Time: 17:01 EDWV 09/20 17:01 Order name: Liver (Hepatic) Function; Complete Time: 17:01 EDWV 09/20 17:01 Order name: Troponin (Emerg Dept Use Only); Complete Time: 17:01 EDWV 09/20 17:01 Order name: NT PRO-BNP; Complete Time: 17:01 EDWV 09/20 17:01 Order name: Magnesium; Complete Time: 17: EDWV 09/20 15:03 Order name: Vital Signs; Complete Time: 15:33 kb Administered Medications: 15:37 Drug: Tylenol 650 mg Route: PO; aj1 17:42 Follow up: Response: No adverse reaction ss Disposition: 09/20/18 17:26 Hospitalization ordered by Ryan Rojas for Inpatient Admission. Preliminary diagnosis are Fever, unspecified, Elevated white blood cell count, unspecified. - Bed requested for Telemetry/MedSurg (Inpatient). - Status is Inpatient Admission. jb4 - Condition is Stable. - Problem is an ongoing problem. - Symptoms are unchanged. UTI on Admission? No Addendum: 09/22/2018 09:19 Co-signature as Attending Physician, Kalia Hooks MD I agree with the assessment and k dr plan of care. Signatures: Dispatcher [employer] EDWV Fariha Rodriguez, DRIVER SERVICE TECHNICIAN-C DRIVER SERVICE TECHNICIAN-Ckb Staci Patel RN RN aj1 Camilla Mazariegos RN RN kl Rittger, Kevin, MD MD [facility] Manuela Pickens RN RN ss Bryson, James, RN RN jb4 Corrections: (The following items were deleted from the chart) 09/20 19:24 17:26 Hospitalization Ordered by Ryan Rojas DO for Inpatient Admission. Preliminary diagnosis is Fever, unspecified; Elevated white blood cell count, unspecified. Bed requested for Telemetry/MedSurg (Inpatient). Status is Inpatient Admission. Condition is Stable. Problem is an ongoing problem. Symptoms are unchanged. UTI on Admission? No. kb 20:53 19:24 09/20/2018 17:26 Hospitalization Ordered by Ryan Rojas DO for Inpatient jb4 Admission. Preliminary diagnosis is Fever, unspecified; Elevated white blood cell count, unspecified. Bed requested for Telemetry/MedSurg (Inpatient). Status is Inpatient Admission. Condition is Stable. Problem is an ongoing problem. Symptoms are unchanged. UTI on Admission? No. kl
--- NOTE | 2018-09-20 17:27 | ER ---
Nurse's Notes [facility] Name: Federico Martinez Age: 58 yrs Sex: Male : 1960 Arrival Date: 09/20/2018 Time: 13:12 Bed 15 Private MD: Diagnosis: Fever, unspecified;Elevated white blood cell count, unspecified Presentation: 09/20 13:10 Presenting complaint: EMS states: elevated WBC of 24. Pt has no new complaints other ss than his chronic pain. Transition of care: patient was not received from another setting of care. Onset of symptoms is unknown. Risk Assessment: Do you want to hurt yourself or someone else? Patient reports no desire to harm self or others. Initial Sepsis Screen: Does the patient meet any 2 criteria? Temp <36.0*C (96.8*F)) or > 38.3*C (100.9*F). Care prior to arrival: None. 13:10 Method Of Arrival: EMS: [facility] ss 13:10 Acuity: CHARLES 3 ss 17:30 Initial Sepsis Screen: Does the patient have a suspected source of infection? Yes: aj1 Other: Patient has an elevated WBC, unknown source of infection. Historical: - Allergies: 13:23 No Known Allergies; ss - Home Meds: 13:23 albuterol sulfate 2.5 mg /3 mL (0.083 %) Inhl nebu 3 mL q6hrs prn [Active]; amiodarone ss 200 mg Oral tab 1 tab once daily [Active]; arformoterol inhalation 2 times per day [Active]; Atrovent Inhl q 4 hrs prn sob [Active]; carvedilol 6.25 mg Oral tab 1 tab 2 times per day [Active]; Cymbalta 30 mg Oral cpDR 1 cap once daily [Active]; fentanyl 25 mcg/hr Topical pt72 1 patch every 72 hours [Active]; ferrous sulfate 324 mg (65 mg iron) Oral TbEC daily [Active]; Geodon 20 mg Oral cap 1 cap 2 times per day [Active]; nifedipine 60 mg Oral tr24 1 tab twice a day [Active]; Gideon 7.5-325 mg Oral tab 1 tab every 6 hours as needed [Active]; Protonix 40 mg Oral TbEC 1 tab 2 times per day [Active]; ramipril 10 mg Oral cap 1 cap nightly [Active]; Simethicone Oral as needed [Active]; Vitamin D3 5,000 unit Oral tab daily [Active]; Zofran (as hydrochloride) 4 mg Oral tab 1 tabs every 4 hours as needed [Active]; - PMHx: 13:23 Anemia; Anxiety; Asthma; Atherosclerotic heart disease; Bipolar disorder; CHF; COPD; ss Dementia; Depression; Diabetes - IDDM; ESRD; GERD; GI Hemorrhage; Hypertension; insomnia; osteomyelitis; Paraplegia; Parkinsons; Post Laminectomy Syndrome; pressure ulcer of left ankle stage II; Sacral Pressure Ulcer Stage III; Schizophrenia; Pressure ulcer of right ankle, stage II; - Immunization history:: Adult Immunizations up to date. - Social history:: Smoking status: Patient/guardian denies using tobacco. - Ebola Screening: : Patient denies exposure to infectious person Patient denies travel to an Ebola-affected area in the 21 days before illness onset. Screenin:30 Abuse screen: Denies threats or abuse. Denies injuries from another. Nutritional aj1 screening: No deficits noted. Tuberculosis screening: No symptoms or risk factors identified. Assessment: 13:30 General: Appears in no apparent distress. uncomfortable, Behavior is calm, cooperative, aj1 appropriate for age. Pain: Complains of pain in Patient reports pain is "everywhere" Pain currently is 10 out of 10 on a pain scale. Neuro: Level of Consciousness is awake, alert, obeys commands. Cardiovascular: Patient's skin is warm and dry. Respiratory: Airway is patent Respiratory effort is even, unlabored, Respiratory pattern is regular, symmetrical. GI: No signs and/or symptoms were reported involving the gastrointestinal system. : No signs and/or symptoms were reported regarding the genitourinary system. EENT: No signs and/or symptoms were reported regarding the EENT system. Derm: No signs and/or symptoms reported regarding the dermatologic system. Skin is pink, warm \\T\\ dry. normal. 14:30 Reassessment: Patient appears in no apparent distress at this time. No changes from aj1 previously documented assessment. Patient and/or family updated on plan of care and expected duration. Pain level reassessed. Patient is alert, oriented x 3, equal unlabored respirations, skin warm/dry/pink. 15:39 Reassessment: Patient appears in no apparent distress at this time. No changes from aj1 previously documented assessment. Patient and/or family updated on plan of care and expected duration. Pain level reassessed. Patient is alert, oriented x 3, equal unlabored respirations, skin warm/dry/pink. 16:30 Reassessment: Patient and/or family updated on plan of care and expected duration. Pain aj1 level reassessed. General: Appears in no apparent distress. uncomfortable, Behavior is calm, cooperative, appropriate for age. Neuro: Level of Consciousness is awake, alert, obeys commands. Cardiovascular: Patient's skin is warm and dry. Respiratory: Airway is patent Respiratory effort is even, unlabored, Respiratory pattern is regular, symmetrical. GI: No signs and/or symptoms were reported involving the gastrointestinal system. : No signs and/or symptoms were reported regarding the genitourinary system. EENT: No signs and/or symptoms were reported regarding the EENT system. Derm: No signs and/or symptoms reported regarding the dermatologic system. Skin is pink, warm \\T\\ dry. normal. 17:29 Reassessment: Patient appears in no apparent distress at this time. No changes from aj1 previously documented assessment. Patient and/or family updated on plan of care and expected duration. Pain level reassessed. Patient is alert, oriented x 3, equal unlabored respirations, skin warm/dry/pink. 18:01 Reassessment: Attempted to straight cath patient, unable to visualize the urinary aj1 meatus because of inability to retract the foreskin. Large amounts of white drainage noted. Patient cries out in pain with any attempt to clean or place catheter. Notified Dr. Rojas, order received to hold cath urine for now. 19:15 Reassessment: Patient appears in no apparent distress at this time. Patient and/or jb4 family updated on plan of care and expected duration. Pain level reassessed. Patient is alert, oriented x 3, equal unlabored respirations, skin warm/dry/pink. 20:30 Reassessment: Patient appears in no apparent distress at this time. Patient and/or jb4 family updated on plan of care and expected duration. Pain level reassessed. Patient is alert, oriented x 3, equal unlabored respirations, skin warm/dry/pink. Vital Signs: 13:23 BP 136 / 57; Pulse 78; Resp 20; Temp 101(O); Pulse Ox 96% on R/A; Height 5 ft. 8 in. ss (172.72 cm); Pain 10/10; 15:32 BP 151 / 73; Pulse 80; Resp 16; Temp 99.0(O); Pulse Ox 95% on R/A; aj1 16:30 BP 129 / 49; Pulse 70; Resp 18; Pulse Ox 98% on R/A; aj1 17:30 BP 122 / 63; Pulse 70; Resp 18; Pulse Ox 96% on R/A; aj1 20:01 BP 120 / 51; Pulse 74; Resp 18; Pulse Ox 96% on R/A; mt 20:30 BP 116 / 63; Pulse 73; Resp 16; Pulse Ox 96% on R/A; jb4 13:23 PT denies "new pain", but 10/10 pain is his chronic pain ss ED Course: 13:12 Patient arrived in ED. em1 13:17 [facility]-C [facility]. kb 13:17 Kalia Hooks MD is Attending Physician. kb 13:21 Triage completed. ss 13:23 Arm band placed on right wrist. ss 13:30 Patient has correct armband on for positive identification. Bed in low position. Call aj1 light in reach. Side rails up X 1. 13:30 No provider procedures requiring assistance completed. aj1 14:19 EKG done, by certified medical technician assistant. reviewed by Fariha VALERIO. at1 15:20 Inserted saline lock: 20 gauge in right forearm, using aseptic technique. Blood em collected. 15:20 Initial lab(s) drawn, by sd, sent to lab. First set of blood cultures drawn. em 15:25 Staci Patel RN is Primary Nurse. aj1 17:26 Ryan Rojas DO is Hospitalizing Provider. kb 20:30 Patient admitted, IV remains in place. jb4 Administered Medications: 15:37 Drug: Tylenol 650 mg Route: PO; aj1 17:42 Follow up: Response: No adverse reaction ss Outcome: 17:26 Decision to Hospitalize by Provider. kb 20:30 Admitted to Tele accompanied by tech, via stretcher, room 428, with chart, Report jb4 called to LIZABETH morrison 20:30 Condition: stable 20:30 Discharge instructions given to patient, family, Instructed on the need for admit, Demonstrated understanding of instructions. 20:53 Patient left the ED. jb4 Signatures: Fariha Rodriguez, SECTION GANG WORKER-C SECTION GANG WORKER-Staci Nguyen, RN RN aj1 Kem Bower, NARCOTICS AGENT NARCOTICS AGENT Brown Rivero em1 Manuela Pickens RN RN ss Meenu Awan, insurance manager EKG Tat1 Tripp Rick RN RN jb4 Jenny Nair sd
[2018-09-20] MEDS ORDERED: ALBUTEROL 2.5 MG/3 ML NEB SOL NEB PRN (17:57)
[2018-09-20] MEDS ORDERED: ONDANSETRON 4 MG/2 ML VIAL IV PRN (17:57)
[2018-09-20] MEDS ORDERED: ACETAMINOPHEN 500 MG TAB PO PRN (17:57)
[2018-09-20] MEDS ORDERED: IPRATROPIUM BROM 0.5MG/2.5ML NEB PRN (17:57)
--- NOTE | 2018-09-20 18:29 | P.HP ---
Certification for Inpatient Patient admitted to: Inpatient With expected LOS: >2 Midnights Patient will require the following post-hospital care: Other (Back to a group home) Practitioner: I am a practitioner with admitting privileges, knowledge of patient current condition, hospital course, and medical plan of care. Services: Services provided to patient in accordance with Admission requirements found in Title 42 Section 412.3 of the Code of Federal Regulations Patient History Date of Service: 09/20/18 Primary Care Provider: Dr. George; Nephrology-Dr. Leavitt Reason for admission: Abnormal lab History of Present Illness: 58-year-old male well known to me with multiple medical problems including end-stage renal disease, diabetes, hypertension, anemia of chronic disease, atrial fibrillation, bipolar disorder, CAD. Patient was recently hospitalized earlier in the week for hematemesis. This resolved. During the course of his stay the patient had some shortness of breath with elevation in his white blood cell count and hypoxia. Acute on chronic diastolic CHF and acute on chronic COPD exacerbation with underlying possible pneumonia was suspected. Patient with bilateral chronic pleural effusions. The patient was recently discharged back to the group home with Levaquin. Today the patient was sent to the ER due to abnormal lab. He was found to have elevation in his white count. Patient's only complaint is a dry cough. There is reports of fever. No significant shortness of breath, sharp chest pain, nausea or vomiting noted. In the ER lab was repeated. White count elevated at 29.5, this was a significant change from previous. Hemoglobin 11.1, platelet count of 390. Sodium 136, potassium 4.2, BUN of 32, creatinine 5.2, GFR of 11. Glucose 295. Pro calcitonin elevated at 3.5, lactic acid normal 1.4. BNP elevated. Chest x- ray showed bilateral pleural effusions. Patient was admitted for further evaluation and treatment. When I saw the patient ER, he did not appear in any respiratory distress. Patient is on oxygen at the group home. Patient had been taking his medication Levaquin. He denies no skin problems. No other complaints noted by patient. Allergies No Known Drug Allergies Allergy (Verified 04/08/18 04:40) Unknown No Allergy (Uncoded 04/08/18 08:07) Unknown Home medications list reviewed: Yes Home Medications: Albuterol Sulfate [Albuterol Sulfate 0.083% Neb Soln] 2.5 mg IH Q6H PRN Amiodarone HCl [Cordarone*] 1 tab PO DAILY 09/13/18 Arformoterol Tartrate [Brovana] 1 inh IH BID 09/13/18 Carvedilol [Coreg*] 1 tab PO BID 09/13/18 Cholecalciferol (Vitamin D3) [Vitamin D3] 1 cap PO DAILY 09/13/18 Duloxetine HCl [Cymbalta] 1 cap PO DAILY 09/13/18 Ferrous Sulfate 1 tab PO DAILY 09/13/18 Hydrocodone Bit/Acetaminophen [[place] 7.5-325 Tablet] 1 tab PO Q6H PRN 09/13/18 Ipratropium Neb [Atrovent*] 1 inh IH Q4H PRN 09/13/18 Nifedipine [Procardia Xl] 1 tab PO BID 09/13/18 Ondansetron HCl [Zofran] 1 tab PO Q4H PRN 09/13/18 Pantoprazole Sodium [Protonix] 1 tab PO BID 09/13/18 Ramipril [Altace] 1 cap PO BEDTIME 09/13/18 Simethicone 1 tab PO DAILY PRN 09/13/18 Ziprasidone HCl [Geodon] 1 cap PO BID 09/13/18 Nepro Shake [Nepro*] 237 ml PO TIDWM #90 can 09/17/18 Sucralfate [Carafate -Tab] 1 gm PO SEECOM PRN #30 tab 09/17/18 levoFLOXacin [Levaquin*] 250 mg PO Q48H #4 tab 09/17/18 - Past Medical/Surgical History Diabetic: Yes -: DM-Type 2 -: HTN -: Hyperlipidemia -: Dementia, Parkinsons disease -: GERD -: ESRD, Nephrology-Dr. Leavitt, Dialysis-,Sat -: Restless leg syndrome -: COPD -: Depression, insomnia -: Anemia of chronic disease -: Normal-pressure hydrocephalus -: CAD, PUD -: Cardiac stents. -: Numerous back surgeries -: Congestive heart failure Psychosocial/ Personal History: He currently lives at the group home - Family History Mother -: Heart disease, Hypertension Father -: Heart disease - Social History Smoking Status: Never smoker Alcohol use: No CD- Drugs: No Caffeine use: Yes [facility] Review of Systems General: Weakness, As per HPI Eyes: Unremarkable ENT: Unremarkable Respiratory: Cough, As per HPI Cardiovascular: Unremarkable Gastrointestinal: Unremarkable Genitourinary: Unremarkable Musculoskeletal: Unremarkable Integumentary: Unremarkable Neurological: Unremarkable Lymphatics: Unremarkable Physical Examination - Physical Exam General: Alert, In no apparent distress, Oriented x3, Cooperative HEENT: Atraumatic, Normocephalic, PERRLA, Mucous membr. moist/pink Neck: Supple Respiratory: Crackles/rales (Crackles to the bases bilateral) Cardiovascular: Normal pulses, Regular rate/rhythm Gastrointestinal: Normal bowel sounds, Soft and benign, Non-distended, No ascites, No tenderness, No masses, No rebound, No guarding Musculoskeletal: No contractures, No erythema, No tenderness, No warmth Integumentary: No tenderness/swelling, No erythema, No warmth, No cyanosis Neurological: Normal speech, Normal strength at 5/5 x4 extr, Normal tone, Normal affect - Studies Laboratory Data (last 24 hrs) 09/20/18 15:20: PT 14.3 H, INR 1.21 09/20/18 15:20: WBC 29.5 H* D, Hgb 11.1 L, Hct 34.9 L, Plt Count 330 09/20/18 15:20: Sodium 136, Potassium 4.2, BUN 32 H, Creatinine 5.30 H*, Glucose 195 H, Magnesium 2.3, Total Bilirubin 0.5, AST 15, ALT 18, Alkaline Phosphatase 117 Assessment and Plan - Plan Impression: Fever with noted leukocytosis etiology unknown but with recent left posterior base pneumonia previously treated with Levaquin complicated with chronic bilateral pleural effusions, COPD and chronic diastolic CHF Anemia of chronic disease Atrial fibrillation, chronic, not on chronic anti coagulation therapy End-stage renal disease on hemodialysis Tuesdays, and Sunday Diabetes mellitus type 2 non-insulin dependent Hypertension CAD Bipolar disorder Chronic pain GERD with history of GI bleed in the past/gastritis and gastric varices Plan: Fever with noted leukocytosis etiology unknown but with recent left posterior base pneumonia previously treated with Levaquin complicated with chronic bilateral pleural effusions, COPD and chronic diastolic CHF: Patient will be admitted. Will start vancomycin and Zosyn. Will obtain blood cultures and urine culture. Will need to consider dialysis catheter to be removed as this may be the etiology. Will maintain sats above 90%. Will provide medication for COPD. Patient will require dialysis. Will consult Nephrology to further evaluate. Will consult pulmonology to evaluate for possible pneumonia as the etiology of his leukocytosis. Await further recommendations. Anemia of chronic disease: Will monitor closely. Currently stable this time. Atrial fibrillation, chronic, not on chronic anti coagulation therapy: Will continue with amiodarone. End-stage renal disease on hemodialysis Tuesdays, and Sunday : Patient will need dialysis tomorrow. Nephrology consulted. Diabetes mellitus type 2 non-insulin dependent: Will start sliding scale. Will monitor and adjust appropriately. Hypertension: Will restart his home medication of Altace 10 mg daily, carvedilol 6.25 mg 1 pill twice daily, and Procardia XL 60 mg twice daily. CAD: Will continue monitor closely. Bipolar disorder: Will continue with his medication of the Geodon 20 mg twice daily and Cymbalta 30 mg daily Chronic pain: Will continue with hydrocodone as needed. GERD with history of GI bleed in the past/gastritis and gastric varices: Will continue with PPI. . Discharge Plan: [facility] Plan to discharge in: 72 Hours - Advance Directives Does patient have a Living Will: No Does patient have a Durable POA for Healthcare: Yes - Code Status/Comfort Care Code Status Assessed: Yes (Patient is DNR) Time Spent Managing Pts Care (In Minutes): 55
[2018-09-20] MEDS: ARFORMOTEROL TARTRATE 15 MCG/2 ML VIAL.NEB NEB SCH (20:00)
[2018-09-20] MEDS ORDERED: VANCOMYCIN/NS 1 gm 1 GM/250 ML BAG IV SCH (21:00)
[2018-09-20] MEDS: INSULIN -REGULAR HUMAN 50 UNIT/0.5 ML ML SQ SCH (21:00)
[2018-09-20] MEDS: ZIPRASIDONE 20 MG CAP PO SCH (21:28)
[2018-09-20] MEDS: CARVEDILOL 6.25 MG TAB PO SCH (21:28)
[2018-09-20] MEDS: HYDROCODONE/APAP 7.5/325 MG TAB PO PRN (21:46)
[2018-09-20] MEDS ORDERED: MANNITOL 25% 12.5 GM/50 ML VIAL IV PRN (22:39)
[2018-09-20] MEDS ORDERED: NA CHLORIDE 0.9% 1,000 ML IV PRN (22:39)
[2018-09-20] MEDS ORDERED: EPOETIN ALFA 10,000 UNIT/ML VIAL IV SCH (22:45)
[2018-09-20] MEDS ORDERED: ALBUMIN HUMAN 25% 50 ML IV SCH (23:00)
[2018-09-21] MEDS: PIPER/TAZO/NS 2.25gm 2.25 GM/50 ML BAG IVPB SCH ×3 (00:32→17:00)
[2018-09-21 05:22] LABS: Absolute Lymphocytes (CBC) 0.6 K/uL (0.7-4.9); Absolute Monocytes 2.2 K/uL (0.1-1.3); Absolute Neutrophil 22.7 K/uL (1.8-8.0); Basophils % 0.3 % (0-1.3); Eosinophils % 1.8 % (0-4.4); Hematocrit 30.5 % (39.6-49.0); Lymphocytes % 2.3 % (15.3-44.8); MCH 24.5 pg (27.0-35.0); MCV 77.7 fL (80-100); MPV 8.1 fL (7.6-11.3); Monocytes % 8.5 % (3.3-12.3); RBC Red Blood Cell Count 3.92 M/uL (4.33-5.43)
[2018-09-21 05:41] LABS: Magnesium 2.4 mg/dL (1.8-2.4); Potassium 4.3 mmol/L (3.5-5.1)
[2018-09-21] MEDS: INSULIN -REGULAR HUMAN 50 UNIT/0.5 ML ML SQ SCH ×4 (07:30→21:00)
[2018-09-21] MEDS: CARVEDILOL 6.25 MG TAB PO SCH ×2 (08:55→21:58)
[2018-09-21] MEDS: RAMIPRIL 5 MG CAP PO SCH (08:55)
[2018-09-21] MEDS: NIFEDIPINE XL 60 MG TABLET PO SCH (08:56)
[2018-09-21] MEDS: ZIPRASIDONE 20 MG CAP PO SCH ×2 (09:05→21:58)
[2018-09-21] MEDS: AMIODARONE HCL 200 MG TAB PO SCH (09:05)
[2018-09-21] MEDS: DULOXETINE 30 MG CAP PO SCH (09:05)
[2018-09-21] MEDS: ARFORMOTEROL TARTRATE 15 MCG/2 ML VIAL.NEB NEB SCH ×2 (10:55→21:05)
--- NOTE | 2018-09-21 11:12 | RAD REPORT ---
EXAM DESCRIPTION: RAD - Chest Single View - 09/21/2018 6:20 am CLINICAL HISTORY: follow up CHF/Pneumonia Chest pain. COMPARISON: Chest Single View dated 09/20/2018; Chest Single View dated 09/16/2018; Chest Single Vie w dated 09/13/2018; Chest Single View dated 08/01/2018 FINDINGS: Portable technique limits examination quality. Mild interstitial pulmonary edema is present. The heart is moderately enlarged in size. Right-sided v enous catheter has tip in the SVC near the right atrial junction. IMPRESSION: Mild CHF versus volume overload.
[2018-09-21] MEDS: HYDROCODONE/APAP 7.5/325 MG TAB PO PRN ×2 (12:09→21:58)
--- NOTE | 2018-09-21 15:06 | P.PN ---
Subjective Date of Service: 09/21/18 Primary Care Provider: Dr. George; Nephrology-Dr. Leavitt Chief Complaint: Abnormal lab Subjective: Doing well (Patient doing better today. No significant complaints noted. No shortness of breath noted. Slight fatigue noted. T-max 101) Physical Examination - Vital Signs Temperature: 99.5 F Blood Pressure: 142/62 Pulse: 71 Respirations: 22 Pulse Ox (%): 98 - Physical Exam General: Alert, In no apparent distress, Oriented x3, Cooperative HEENT: Atraumatic Neck: Supple Respiratory: Crackles/rales (Mild crackles to the bases) Cardiovascular: Normal pulses, Regular rate/rhythm Gastrointestinal: Normal bowel sounds, Soft and benign, Non-distended, No tenderness, No masses, No rebound, No guarding Musculoskeletal: No erythema, No tenderness, No warmth Integumentary: No tenderness/swelling, No erythema, No warmth, No cyanosis Neurological: Normal speech, Normal strength at 5/5 x4 extr, Normal tone, Normal affect - Studies Laboratory Data (last 24 hrs) 09/20/18 15:20: PT 14.3 H, INR 1.21 09/20/18 15:20: WBC 29.5 H* D, Hgb 11.1 L, Hct 34.9 L, Plt Count 330 09/20/18 15:20: Sodium 136, Potassium 4.2, BUN 32 H, Creatinine 5.30 H*, Glucose 195 H, Magnesium 2.3, Total Bilirubin 0.5, AST 15, ALT 18, Alkaline Phosphatase 117 Medications List Reviewed: Yes Assessment & Plan Discharge Plan: Long Term Plan to discharge in: 48 Hours Physician Review Additional Text: Impression: Fever with noted leukocytosis etiology unknown but with recent left posterior base pneumonia previously treated with Levaquin complicated with chronic bilateral pleural effusions, COPD and chronic diastolic CHF Anemia of chronic disease Atrial fibrillation, chronic, not on chronic anti coagulation therapy End-stage renal disease on hemodialysis Tuesdays, and Sunday Diabetes mellitus type 2 non-insulin dependent Hypertension CAD Bipolar disorder Chronic pain GERD with history of GI bleed in the past/gastritis and gastric varices Plan: Fever with noted leukocytosis etiology unknown but with recent left posterior base pneumonia previously treated with Levaquin complicated with chronic bilateral pleural effusions, COPD and chronic diastolic CHF: Patient remained stable. T-max 101. Will continue with IV antibiotic therapy. Blood cultures and urine culture obtained. Pulmonology feels the patient does not have underlying pneumonia. Await blood culture results. Patient will require dialysis. Will discuss with nephrology. Chest x-ray shows CHF pattern. Etiology of fever on known. If blood cultures abnormal than dialysis catheter may need to be evaluated as the source of infection. Anemia of chronic disease: Will monitor closely. Currently stable this time. Atrial fibrillation, chronic, not on chronic anti coagulation therapy: Will continue with amiodarone. End-stage renal disease on hemodialysis Tuesdays, and Sunday : Patient required dialysis today. Nephrology consulted. Diabetes mellitus type 2 non-insulin dependent: Will continue with sliding scale. Will monitor and adjust appropriately. Hypertension: Will continue with his home medication of Altace 10 mg daily, carvedilol 6.25 mg 1 pill twice daily, and Procardia XL 60 mg twice daily. CAD: Will continue monitor closely. Bipolar disorder: Will continue with his medication of the Geodon 20 mg twice daily and Cymbalta 30 mg daily Chronic pain: Will continue with hydrocodone as needed. GERD with history of GI bleed in the past/gastritis and gastric varices: Will continue with PPI. Time Spent Managing Pts Care (In Minutes): 55
[2018-09-21] MEDS: VANCOMYCIN/NS 1 gm 1 GM/250 ML BAG IV SCH (22:13)
[2018-09-21] MEDS ORDERED: HYDROMORPHONE HCL 1 MG/ML INJ IV ONE (23:04)
[2018-09-22] MEDS: PIPER/TAZO/NS 2.25gm 2.25 GM/50 ML BAG IVPB SCH ×3 (00:46→17:02)
[2018-09-22 05:45] LABS: Absolute Lymphocytes (CBC) 0.6 K/uL (0.7-4.9); Absolute Monocytes 1.8 K/uL (0.1-1.3); Basophils % 0.4 % (0-1.3); Eosinophils % 1.5 % (0-4.4); Hematocrit 31.7 % (39.6-49.0); Lymphocytes % 2.4 % (15.3-44.8); MCH 24.8 pg (27.0-35.0); MCV 78.4 fL (80-100); MPV 8.3 fL (7.6-11.3); Monocytes % 6.7 % (3.3-12.3); RBC Red Blood Cell Count 4.04 M/uL (4.33-5.43)
[2018-09-22 05:59] LABS: Magnesium 2.3 mg/dL (1.8-2.4); Potassium 4.3 mmol/L (3.5-5.1)
[2018-09-22 06:40] VITALS: BMI 29.3
[2018-09-22] MEDS: INSULIN -REGULAR HUMAN 50 UNIT/0.5 ML ML SQ SCH ×4 (07:30→20:39)
[2018-09-22] MEDS: ARFORMOTEROL TARTRATE 15 MCG/2 ML VIAL.NEB NEB SCH ×2 (08:11→20:28)
[2018-09-22] MEDS: DULOXETINE 30 MG CAP PO SCH (08:26)
[2018-09-22] MEDS: AMIODARONE HCL 200 MG TAB PO SCH (08:26)
[2018-09-22] MEDS: CARVEDILOL 6.25 MG TAB PO SCH ×2 (08:26→20:36)
[2018-09-22] MEDS: ZIPRASIDONE 20 MG CAP PO SCH ×2 (08:26→20:36)
[2018-09-22] MEDS: NIFEDIPINE XL 60 MG TABLET PO SCH (08:27)
[2018-09-22] MEDS: RAMIPRIL 5 MG CAP PO SCH (08:28)
[2018-09-22] MEDS: HYDROCODONE/APAP 7.5/325 MG TAB PO PRN ×3 (08:32→20:36)
--- NOTE | 2018-09-22 15:28 | P.PN ---
Subjective Date of Service: 09/22/18 Primary Care Provider: Dr. George; Nephrology-Dr. Leavitt Chief Complaint: Abnormal lab Subjective: Improving (Patient improved. No more fever noted. White count still elevated.) Physical Examination - Vital Signs Temperature: 97.2 F Blood Pressure: 143/63 Pulse: 54 Respirations: 18 Pulse Ox (%): 96 - Physical Exam General: Alert, In no apparent distress, Oriented x3, Cooperative HEENT: Atraumatic Neck: Supple Respiratory: Clear to auscultation bilaterally, Normal air movement Cardiovascular: Normal pulses, Regular rate/rhythm Gastrointestinal: Normal bowel sounds, Soft and benign, Non-distended, No tenderness, No masses, No rebound, No guarding Musculoskeletal: No erythema, No tenderness, No warmth Integumentary: No tenderness/swelling, No erythema, No warmth, No cyanosis Neurological: Normal speech, Normal strength at 5/5 x4 extr, Normal tone, Normal affect - Studies Medications List Reviewed: Yes Assessment & Plan Discharge Plan: Alf Plan to discharge in: 48 Hours Physician Review Additional Text: Impression: Fever with noted leukocytosis etiology unknown but with recent left posterior base pneumonia previously treated with Levaquin complicated with chronic bilateral pleural effusions, COPD and chronic diastolic CHF Anemia of chronic disease Atrial fibrillation, chronic, not on chronic anti coagulation therapy End-stage renal disease on hemodialysis Tuesdays, and Sunday Diabetes mellitus type 2 non-insulin dependent Hypertension CAD Bipolar disorder Chronic pain GERD with history of GI bleed in the past/gastritis and gastric varices Plan: Fever with noted leukocytosis etiology unknown but with recent left posterior base pneumonia previously treated with Levaquin complicated with chronic bilateral pleural effusions, COPD and chronic diastolic CHF: Patient remains stable. No more fever present. White count still elevated. Will continue monitor CBC. Will recheck pro calcitonin tomorrow. Pulmonology feels that the patient does not have underlying pneumonia. Will continue with IV antibiotic therapy. Etiology of fever and leukocytosis still unknown. Await blood culture results. Will need to consider dialysis catheter as the source if blood cultures positive. Will discuss with pulmonology and nephrology. I will turn the service over to Dr. Norman tomorrow. I will go over the plan of care with her. Anemia of chronic disease: Will monitor closely. Currently stable this time. Atrial fibrillation, chronic, not on chronic anti coagulation therapy: Will continue with amiodarone. End-stage renal disease on hemodialysis Tuesdays, and Sunday : Patient will continue with dialysis on scheduled days. Nephrology consulted. Diabetes mellitus type 2 non-insulin dependent: Will continue with sliding scale. Will monitor and adjust appropriately. Hypertension: Will continue with his home medication of Altace 10 mg daily, carvedilol 6.25 mg 1 pill twice daily, and Procardia XL 60 mg twice daily. CAD: Will continue monitor closely. Bipolar disorder: Will continue with his medication of the Geodon 20 mg twice daily and Cymbalta 30 mg daily Chronic pain: Will continue with hydrocodone as needed. GERD with history of GI bleed in the past/gastritis and gastric varices: Will continue with PPI. Time Spent Managing Pts Care (In Minutes): 55
[2018-09-22] MEDS ORDERED: HEPARIN 10,000 UNIT/10 ML VIAL IV PRN (16:00)
[2018-09-22] MEDS ORDERED: HEPARIN/D5W 25,000 UNIT/500 ML BAG IV PRN (16:00)
[2018-09-22] MEDS ORDERED: HEPARIN 10,000 UNIT/10 ML VIAL IV SCH (16:00)
--- NOTE | 2018-09-22 19:18 | CON ---
Date of Consultation: 09/22/2018 Reason For Consultation: ESRD on dialysis. History Of Present Illness: Mr. Martinez is a 58-year-old male with a complicated past medical history, who presented to [facility] after he was just recently discharged with not feeling well, malaise, and weakness. He was found to have significant elevation in his white cell count. Avinash felipe has been started on antibiotics. Past Medical History: Significant for history of type 2 diabetes, hypertension, hyperlipidemia, hermes ntia, Parkinson's, GERD, ESRD on dialysis, restless legs syndrome, COPD, depression, anemia of chroni c disease, cardiac stents, numerous back surgeries, congestive heart failure. He has had history of MRSA bacteremia in the past related to diskitis and had been treated with prolonged course of antibio tics in the past. Social History: Lives at a longterm. No history of smoking reported. Home Medications: Have been reviewed. Family History: Significant for hypertension in his mother and father. Review of Systems: Positive for weakness and lethargy. All other review of systems are negative. Laboratory Data: At this time showing sodium of 135, potassium of 4.3, chloride of 103, BUN of 24, a nd creatinine of 4.4. CBC showing WBC count of 27,000, hemoglobin of 10, hematocrit 31.7, and platel et count of 21. Blood cultures are currently pending at this time, so far negative. Physical Examination: Vital Signs: Temperature of 97.2, pulse rate of 54, respiratory rate of 18, and blood pressure 143/6 3. General: He appears weak and lethargic. HEENT: Atraumatic head. Lungs: Auscultation of the lungs revealed bilateral equal air entry. Abdomen: Soft and nontender. Heart: Auscultation of the heart revealed regular rate and rhythm. Extremities: Without any evidence of edema. Current Medications: Include Tylenol, amiodarone, albumin with dialysis, Cymbalta, carvedilol, Epoge n with dialysis, ramipril, vancomycin, and Zosyn. Impression: 1.End-stage renal disease, on dialysis. 2.Leukocytosis. Etiology of the leukocytosis is unclear. Workup is underway. The patient is recei ving broad-spectrum antibiotics with vancomycin and Zosyn at this time. Leukocytosis is being monito red. 3.Chronic anemia with history of gastrointestinal bleeds. Currently, hemoglobin is stable. 4.Severe debility and weakness. 5.Chronic back pain. He will possibly need to be evaluated for diskitis if no other source of infec tion. 6.Bipolar disorder. Continue with home dose of medications. Continue all other medications. Plan Of Care: We will plan for Sunday, , Sunday dialysis and antibiotics to be dosed post hemodialysis. Thank you very much for this consultation. Please do not hesitate to call with any questions or conc erns. BARTOLOME/BG Voice ID: [id number] Report ID: [id number]
[2018-09-22] MEDS: HEPARIN 5000 UNIT/ML 1 ML VIAL SQ SCH (20:38)
[2018-09-23] MEDS: PIPER/TAZO/NS 2.25gm 2.25 GM/50 ML BAG IVPB SCH ×3 (01:14→17:00)
[2018-09-23 05:20] LABS: Absolute Lymphocytes (CBC) 0.7 K/uL (0.7-4.9); Absolute Monocytes 1.8 K/uL (0.1-1.3); Basophils % 0.2 % (0-1.3); Eosinophils % 1.9 % (0-4.4); Hematocrit 32.2 % (39.6-49.0); Lymphocytes % 2.7 % (15.3-44.8); MCH 24.2 pg (27.0-35.0); MCV 78.7 fL (80-100); MPV 8.6 fL (7.6-11.3); Monocytes % 7.1 % (3.3-12.3); RBC Red Blood Cell Count 4.09 M/uL (4.33-5.43)
[2018-09-23 06:04] LABS: Magnesium 2.3 mg/dL (1.8-2.4); Potassium 4.6 mmol/L (3.5-5.1)
[2018-09-23] MEDS: INSULIN -REGULAR HUMAN 50 UNIT/0.5 ML ML SQ SCH ×4 (07:30→21:00)
[2018-09-23] MEDS: ARFORMOTEROL TARTRATE 15 MCG/2 ML VIAL.NEB NEB SCH ×2 (07:45→19:55)
[2018-09-23] MEDS: NIFEDIPINE XL 60 MG TABLET PO SCH (08:10)
[2018-09-23] MEDS: HEPARIN 5000 UNIT/ML 1 ML VIAL SQ SCH ×2 (08:10→21:11)
[2018-09-23] MEDS: DULOXETINE 30 MG CAP PO SCH (08:14)
[2018-09-23] MEDS: AMIODARONE HCL 200 MG TAB PO SCH (08:14)
[2018-09-23] MEDS: RAMIPRIL 5 MG CAP PO SCH (08:14)
[2018-09-23] MEDS: ZIPRASIDONE 20 MG CAP PO SCH ×2 (08:14→21:11)
[2018-09-23] MEDS: CARVEDILOL 6.25 MG TAB PO SCH ×2 (08:15→21:10)
[2018-09-23] MEDS: HYDROCODONE/APAP 7.5/325 MG TAB PO PRN ×2 (08:19→17:53)
--- NOTE | 2018-09-23 15:37 | P.PN ---
Subjective Date of Service: 09/23/18 Primary Care Provider: Dr. George; Nephrology-Dr. Leavitt Chief Complaint: Abnormal lab Review of Systems 10-point ROS is otherwise unremarkable Physical Examination - Vital Signs Temperature: 98.9 F Blood Pressure: 143/68 Pulse: 68 Respirations: 20 Pulse Ox (%): 95 - Physical Exam General: Alert, In no apparent distress HEENT: Atraumatic, PERRLA, EOMI Neck: Supple, JVD not distended Respiratory: Normal air movement, Rhonchi/gurgles Cardiovascular: Regular rate/rhythm, Normal S1 S2 Gastrointestinal: Normal bowel sounds, No tenderness Musculoskeletal: No tenderness Integumentary: No rashes Neurological: Normal speech, Normal tone, Normal affect Lymphatics: No axilla or inguinal lymphadenopathy - Studies Medications List Reviewed: Yes Assessment And Plan - Current Problems (Diagnosis) (1) Fever Current Visit: Yes Status: Acute Plan: Fever with leukocytosis etiology unknown but with recent left posterior base pneumonia previously treated with Levaquin -Pending Blood, sputum and urine culture. -Pulmonology consulted. Appreciate Reccs -Low Probablity of PNA after Reviewing blood work and imaging -Will continue with Abx for now and f.u with culture Qualifiers: Fever type: unspecified Qualified Code(s): R50.9 - Fever, unspecified (2) Leukocytosis Onset Date: 01/10/17 Current Visit: No Status: Acute Plan: Elevated on admission -trending down now -F.u with Culture -See# 1 Qualifiers: Leukocytosis type: bandemia Qualified Code(s): D72.825 - Bandemia (3) Pleural effusion Onset Date: 03/21/18 Current Visit: No Status: Acute Plan: Most Likely 2.2 to Volume overload. -Pt on Dialysis will continue. -Pulmonology consulted. Appreciate Reccs -Will monitor closely (4) History of upper gastrointestinal bleeding Current Visit: No Status: Chronic (5) Atrial fibrillation Onset Date: 09/16/18 Current Visit: No Status: Chronic Qualifiers: (6) Bipolar disorder Onset Date: 05/04/17 Current Visit: No Status: Chronic Qualifiers: Active/Remission status: remission status unspecified (7) CAD (coronary artery disease) Onset Date: 12/24/17 Current Visit: No Status: Chronic Qualifiers: Coronary Disease-Associated Artery/Lesion type: [place] artery [place] vs. transplanted heart: [place] heart Associated angina: without angina Qualified Code(s): I25.10 - Atherosclerotic heart disease of [place] coronary artery without angina pectoris (8) CHF (congestive heart failure) Onset Date: 12/24/17 Current Visit: No Status: Chronic Qualifiers: Heart failure type: unspecified Heart failure chronicity: chronic Qualified Code(s): I50.9 - Heart failure, unspecified (9) COPD (chronic obstructive pulmonary disease) Onset Date: 12/24/17 Current Visit: No Status: Chronic Qualifiers: COPD type: chronic bronchitis Chronic bronchitis type: mucopurulent Qualified Code(s): J41.1 - Mucopurulent chronic bronchitis (10) Diabetes mellitus Onset Date: 05/04/17 Current Visit: No Status: Chronic Qualifiers: Diabetes mellitus type: type 2 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 Diabetes mellitus complication status: with other specified complication Qualified Code(s): E11.69 - Type 2 diabetes mellitus with other specified complication; Z79.4 - care home (current) use of insulin (11) ESRD (end stage renal disease) Onset Date: 12/24/17 Current Visit: No Status: Chronic (12) GERD (gastroesophageal reflux disease) Onset Date: 12/24/17 Current Visit: No Status: Chronic Qualifiers: Esophagitis presence: with esophagitis Qualified Code(s): K21.0 - Gastro- esophageal reflux disease with esophagitis (13) Hypertension Onset Date: 12/24/17 Current Visit: No Status: Chronic Qualifiers: Hypertension type: essential hypertension - Plan Currently awaiting clinical improvement at this time. WBC is trending down today. Will go ahead and continue the IV antibiotics here. Will follow up with blood culture and urine culture along with sputum culture at this time. Discharge Plan: [facility]irement Plan to discharge in: Greater than 2 days - Code Status/Comfort Care Code Status Assessed: Yes Critical Care: No
--- NOTE | 2018-09-23 20:37 | P.PN ---
Date of Service: 09/23/18 Vital Signs Temp Pulse Resp BP Pulse Ox 99.0 F 72 20 124/59 L 92 09/23/18 16:00 09/23/18 16:00 09/23/18 16:00 09/23/18 16:00 09/23/18 16:00 Medications Acetaminophen (Tylenol -Extra Strength) 500 mg PO Q4HP PRN PRN Reason: [id number] Stop: 10/20/18 17:58 Hydrocodone Bitart/Acetaminophen ([place] 7.5/325 Mg) 1 tab PO Q6H PRN PRN Reason: PAIN Stop: 10/20/18 17:58 Last Admin: 09/23/18 17:53 Dose: 1 tab Albuterol Sulfate (Proventil 0.083% Neb Soln) 2.5 mg NEB [id number] PRN PRN Reason: SHORTNESS OF BREATH Stop: 10/20/18 20:01 Amiodarone HCl (Cordarone Tab) 200 mg PO DAILY RUBY Stop: 10/21/18 09:01 Last Admin: 09/23/18 08:14 Dose: 200 mg Arformoterol Tartrate (Brovana) 15 mcg NEB BIDRESP RUBY Stop: 10/20/18 20:01 Last Admin: 09/23/18 19:55 Dose: 15 mcg Carvedilol (Coreg) 6.25 mg PO BID RUBY Stop: 10/20/18 21:01 Last Admin: 09/23/18 08:15 Dose: 6.25 mg Duloxetine HCl (Cymbalta Delayed Release Pellets) 30 mg PO DAILY RUBY Stop: 10/21/18 09:01 Last Admin: 09/23/18 08:14 Dose: 30 mg Epoetin Jg (Procrit) 10,000 unit IV EVERY HD RUBY Stop: 10/20/18 22:46 Heparin Sodium (Porcine) (Heparin 1,000 Units/Ml) 6,000 unit IJ EVERY HD PRN PRN Reason: FLUSH AFTER EACH USE Stop: 10/20/18 22:40 Heparin Sodium (Porcine) (Heparin 5,000 Units/Ml) 5,000 unit SQ Q12HR RUBY Stop: 10/22/18 21:01 Last Admin: 09/23/18 08:10 Dose: 5,000 unit Piperacillin/Tazobactam/Sod Chloride (Zosyn 2.25 Gm/50 Ml Ivpb) 2.25 gm in 50 mls @ 100 mls/hr IVPB Q8HR RUBY; Protocol Stop: 10/21/18 01:01 Last Admin: 09/23/18 17:00 Dose: 50 mls Albumin Human (Albumin 25%) 50 mls @ 100 mls/hr IV EVERY HD [facility] Stop: 10/20/18 23:01 Vancomycin HCl (Vancomycin 1 Gm/250 Ml Ns Ivpb) 1 gm in 250 mls @ 125 mls/hr IV AFTER EACH DIALYSIS [facility]; Protocol Stop: 10/20/18 21:01 Last Admin: 09/21/18 22:13 Dose: 250 mls Insulin Human Regular (Novolin -R) 0 unit SQ ACHS RUBY; Protocol Stop: 10/20/18 21:01 Last Admin: 09/23/18 16:30 Dose: Not Given Ipratropium [place] (Atrovent Neb) 0.5 mg NEB [id number] PRN PRN Reason: SHORTNESS OF BREATH Stop: 10/20/18 20:01 Last Admin: 09/21/18 21:05 Dose: 0.5 mg Mannitol (Mannitol 12.5 Gm/50 Ml Vial) 12.5 gm IV EVERY HD PRN PRN Reason: BP support at hemodialysis Stop: 10/20/18 22:40 Nifedipine (Procardia Xl) 60 mg PO DAILY [facility] Stop: 10/21/18 09:01 Last Admin: 09/23/18 08:10 Dose: 60 mg Ondansetron HCl (Zofran) 4 mg IV Q6HP PRN PRN Reason: NAUSEA / VOMITING Stop: 10/20/18 17:58 Ramipril (Altace) 10 mg PO DAILY [facility] Stop: 10/21/18 09:01 Last Admin: 09/23/18 08:14 Dose: 10 mg Sodium Chloride (Normal Saline Flush) 10 ml IV BID RUBY Stop: 10/20/18 21:01 Last Admin: 09/23/18 08:15 Dose: 10 ml Ziprasidone (Geodon) 20 mg PO BID [facility] Stop: 10/20/18 21:01 Last Admin: 09/23/18 08:14 Dose: 20 mg Microbiology Results 09/20/18 15:45 Blood - Blood Aerobic Blood Culture - Preliminary No growth in 24 hours. 09/20/18 15:45 Blood - Blood Anaerobic Blood Culture - Preliminary No growth in 24 hours. 09/20/18 15:20 Blood - Blood Aerobic Blood Culture - Preliminary No growth in 24 hours. 09/20/18 15:20 Blood - Blood Anaerobic Blood Culture - Preliminary No growth in 24 hours. Assessment/ Plan: Nephrology. Feeling better. CPS improved without CP or SOB. No acute events overnight. Vitals, medications, blood work and imaging reviewed in the chart. NAD. MMM. Neck supple. CTA. RRR. Soft Abd. No C/C/E. No rash. AAO. Normal speech. A/ ESRD on HD. HTN with CKD/ HTN. Diastolic CHF, chronic. Anemia in chronic illness. JACOB/ Secondary HyperPTH. P/ Continue current POC and Medications. Arrange for acute HD tomorrow. Agree with abx. No NSAIDs. AM labs. Daily weight.
[2018-09-24] MEDS: PIPER/TAZO/NS 2.25gm 2.25 GM/50 ML BAG IVPB SCH ×3 (00:25→17:00)
[2018-09-24] MEDS: HYDROCODONE/APAP 7.5/325 MG TAB PO PRN ×4 (00:25→22:07)
[2018-09-24] MEDS: INSULIN -REGULAR HUMAN 50 UNIT/0.5 ML ML SQ SCH ×4 (07:30→21:00)
[2018-09-24] MEDS: ARFORMOTEROL TARTRATE 15 MCG/2 ML VIAL.NEB NEB SCH ×2 (08:00→20:00)
[2018-09-24] MEDS: RAMIPRIL 5 MG CAP PO SCH (08:48)
[2018-09-24] MEDS: AMIODARONE HCL 200 MG TAB PO SCH (08:48)
[2018-09-24] MEDS: HEPARIN 5000 UNIT/ML 1 ML VIAL SQ SCH ×2 (08:48→22:08)
[2018-09-24] MEDS: CARVEDILOL 6.25 MG TAB PO SCH ×2 (08:48→22:07)
[2018-09-24] MEDS: ZIPRASIDONE 20 MG CAP PO SCH ×2 (08:48→22:07)
[2018-09-24] MEDS: NIFEDIPINE XL 60 MG TABLET PO SCH (08:48)
[2018-09-24] MEDS: DULOXETINE 30 MG CAP PO SCH (08:48)
--- NOTE | 2018-09-24 10:59 | RAD REPORT ---
EXAM DESCRIPTION: RAD - Chest Single View - 09/24/2018 10:36 am CLINICAL HISTORY: Shortness of breath COMPARISON: September 21, 2018, September 20, 2018 TECHNIQUE: AP portable chest image was obtained 1022 hours . FINDINGS: Double-lumen dialysis catheter remains in place on the right well-positioned. Prominent in terstitial markings are seen throughout the right lung field similar to the comparison study. Mid and lower left lung field opacification has increased slightly. Left lung field was poorly visualized on the comparison due to shallow inspiration and patient positioning. Cardiomegaly is present. There is vascular engorgement similar to comparison. No pneumothorax is present. There is moderate left pleur al effusion with left base atelectasis. No acute bony abnormality seen. No acute aortic findings susp ected. IMPRESSION: Moderate pleural effusion and atelectasis in the left lung field appearing increased fro m September 21 imaging. Underlying CHF/volume overload findings are still present.
[2018-09-24 11:44] LABS: Hematocrit 32.5 % (39.6-49.0); MCH 24.1 pg (27.0-35.0); MCV 78.1 fL (80-100); MPV 8.1 fL (7.6-11.3); RBC Red Blood Cell Count 4.17 M/uL (4.33-5.43)
[2018-09-24 11:59] LABS: Albumin 2.3 g/dL (3.4-5.0); Bilirubin Total 0.4 mg/dL (0.2-1.0); Potassium 5.3 mmol/L (3.5-5.1); Protein, Total 6.6 g/dL (6.4-8.2)
[2018-09-24 13:51] LABS: Platelet Estimate ADEQ
[2018-09-24 13:52] LABS: Anisocytosis 1+; Blood Morphology Comment NOTED (NOT SEEN); Poikilocytosis 1+
[2018-09-24] MEDS: VANCOMYCIN/NS 1 gm 1 GM/250 ML BAG IV SCH (16:33)
--- NOTE | 2018-09-24 17:33 | P.PN ---
Subjective Date of Service: 09/24/18 Primary Care Provider: Dr. George; Nephrology-Dr. Leavitt Chief Complaint: Abnormal lab Patient seen and examined at bedside with RN. Chart reviewed. Case discussed with nephrology along with infectious disease. Patient complaining of not feeling well generally today. Patient states that he is very short of breath at this time. Patient also complains of having lower back pain. Review of Systems 10-point ROS is otherwise unremarkable Physical Examination - Vital Signs Temperature: 97.2 F Blood Pressure: 147/70 Pulse: 64 Respirations: 20 Pulse Ox (%): 96 - Physical Exam General: Alert, In no apparent distress HEENT: Atraumatic, PERRLA, EOMI Neck: Supple, JVD not distended Respiratory: Clear to auscultation bilaterally, Normal air movement Cardiovascular: Regular rate/rhythm, Normal S1 S2 Gastrointestinal: Normal bowel sounds, No tenderness Musculoskeletal: Erythema, Tenderness, Warmth, Other (Bulging noted on the liver is the lumbar spine.) Integumentary: No rashes Neurological: Normal speech, Normal tone, Normal affect Lymphatics: No axilla or inguinal lymphadenopathy - Studies Medications List Reviewed: Yes Assessment And Plan - Current Problems (Diagnosis) (1) Fever Current Visit: Yes Status: Acute Plan: Fever with leukocytosis etiology unknown but with recent left posterior base pneumonia previously treated with Levaquin -Pending Blood, sputum and urine culture. -Pulmonology consulted. Appreciate Reccs -Low Probablity of PNA after Reviewing blood work and imaging -Will continue with Abx for now and f.u with culture Qualifiers: Fever type: unspecified Qualified Code(s): R50.9 - Fever, unspecified (2) Leukocytosis Onset Date: 01/10/17 Current Visit: No Status: Acute Plan: Elevated at this time. -WBC at 30 today -F.u with blood and Urine Culture -See# 1 Qualifiers: Leukocytosis type: bandemia Qualified Code(s): D72.825 - Bandemia (3) Pleural effusion Onset Date: 03/21/18 Current Visit: No Status: Acute Plan: Most Likely 2.2 to Volume overload. -Pt on Dialysis will continue. -Pulmonology consulted. Appreciate Reccs -Will monitor closely (4) History of upper gastrointestinal bleeding Current Visit: No Status: Chronic (5) Atrial fibrillation Onset Date: 09/16/18 Current Visit: No Status: Chronic Qualifiers: (6) Bipolar disorder Onset Date: 05/04/17 Current Visit: No Status: Chronic Qualifiers: Active/Remission status: remission status unspecified (7) CAD (coronary artery disease) Onset Date: 12/24/17 Current Visit: No Status: Chronic Qualifiers: Coronary Disease-Associated Artery/Lesion type: [place] artery [place] vs. transplanted heart: [place] heart Associated angina: without angina Qualified Code(s): I25.10 - Atherosclerotic heart disease of [place] coronary artery without angina pectoris (8) CHF (congestive heart failure) Onset Date: 12/24/17 Current Visit: No Status: Chronic Qualifiers: Heart failure type: unspecified Heart failure chronicity: chronic Qualified Code(s): I50.9 - Heart failure, unspecified (9) COPD (chronic obstructive pulmonary disease) Onset Date: 12/24/17 Current Visit: No Status: Chronic Qualifiers: COPD type: chronic bronchitis Chronic bronchitis type: mucopurulent Qualified Code(s): J41.1 - Mucopurulent chronic bronchitis (10) Diabetes mellitus Onset Date: 05/04/17 Current Visit: No Status: Chronic Qualifiers: Diabetes mellitus type: type 2 Diabetes mellitus [facility] insulin use: with [facility] use Diabetes mellitus complication status: with other specified complication Qualified Code(s): E11.69 - Type 2 diabetes mellitus with other specified complication; 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 WBC is elevated today. Will go ahead and continue the IV antibiotics here. ID has been consulted. Patient does have a new finding on physical exam and his lower back where he has a bulge on the lumbar spine. Will get and the MRI of the lumbar spine to rule out abscess or any acute abnormality. ID recommendations appreciated this time will continue with IV antibiotics at this time as well. Discharge Plan: [facility] Plan to discharge in: Greater than 2 days - Code Status/Comfort Care Code Status Assessed: Yes Critical Care: No
--- NOTE | 2018-09-24 19:31 | RAD REPORT ---
EXAM DESCRIPTION: MRI - Lumbar Spine Wo Con - 09/24/2018 6:53 pm COMPARISON: None. TECHNIQUE: Sagittal T1, T2 and STIR weighted sequences were obtained. Axial T1 and T2 sequences were obtained through the lumbar disc levels. FINDINGS: An approximately 11 x 5 x 7 centimeter (cc by AP by trans) lobulated fluid-filled mass is present within the posterior subcutaneous tissues from L1-2 to S2. Ill defined fluid is present withi n the posterior subcutaneous of the lower thoracic spine. L1-2, L2-3, and L3-4 demonstrate no significant abnormality. Pedicular screws united by rods have been placed from L4-S1. Artifact from the hardware obscures deta il somewhat. No significant abnormality L4-5. A 25 millimeter bony fragment lies anterior to S1. It is unchanged from the prior CT. It probably rep resents an old ununited fracture from S1. Mild anterior subluxation of L5 on S1 is present. A broad-b ased central disc herniation is present which encroaches upon the thecal sac. No significant abnormal signal within the vertebra is seen. IMPRESSION: 11 centimeter lobulated fluid collection within the posterior subcutaneous tissues of th e lumbar spine and sacrum has a nonspecific appearance. It could represent an abscess or inflammatory mass. There is no abnormal signal within the bones to suggest osteomyelitis. Moderate broad-based central disc herniation L5-S1
--- NOTE | 2018-09-24 20:19 | CON ---
History Of Present Illness: This is a 58-year-old male coming in with multiple medical problems. He has significant history of end-stage renal disease. I was consulted for leukocytosis. The patient also has left-sided pleural effusion and area of concern to the lumbar region. The patient is having discomfort in the back and unable to lay down. The patient was at detention and was on Levaquin when he was transferred to the hospital for further evaluation of white blood cell count being elevat ed of 30,000. Past Medical History: Diabetes mellitus, hypertension, hyperlipidemia, dementia, GERD, end-stage daniel al disease, restless legs syndrome, COPD, depression, anemia, coronary artery disease, peptic ulcer d isease, cardiac stent, numerous back surgeries, congestive heart failure. Social History: Nonsmoker and nondrinker. Family History: Noncontributory. Medications: Zosyn and vancomycin. See MARs for other medication. Allergies: NO KNOWN DRUG ALLERGIES. Review of Systems: A 10-point review was performed. Physical Examination: General: This is a 58-year-old male, lying in bed, not in any acute cardiopulmonary distress. Vital Signs: Temperature 97, pulse 69, respirations 16, blood pressure 168/69. HEENT: Unremarkable. Neck: Supple. Lungs: Basal crackles. Heart: S1 and S2 regular. Abdomen: Soft. Bowel sounds present. Back: Showed area of softness at lumbar spine with purplish discoloration. Extremities: Trace edema. Laboratory Data: Shows WBC 30,000, hemoglobin 10.9, platelets are 307. Chemistry shows sodium 137, potassium 5.3, chloride 104, bicarb 22, BUN 56, creatinine 6.9, glucose 104. Micro data shows blood cultures negative. Assessment And Plan: A 58-year-old male with recurrent admission coming in with leukocytosis with th e left pleural effusion, pneumonitis versus excessive fluid buildup. The patient also has an area of concern on the lumbar region. We will get an MRI and repeat blood cultures. Continue broad-spectru m IV antibiotic. We will follow the patient closely. NF/MODL Voice ID: [id number] Report ID: [id number]
[2018-09-25] MEDS: PIPER/TAZO/NS 2.25gm 2.25 GM/50 ML BAG IVPB SCH ×2 (01:15→08:26)
[2018-09-25] MEDS ORDERED: MORPHINE 4 MG/ML SYR IV ONE (01:30)
[2018-09-25] MEDS: HYDROCODONE/APAP 7.5/325 MG TAB PO PRN ×3 (04:27→17:16)
[2018-09-25] MEDS: INSULIN -REGULAR HUMAN 50 UNIT/0.5 ML ML SQ SCH ×2 (07:30→11:30)
[2018-09-25] MEDS: ARFORMOTEROL TARTRATE 15 MCG/2 ML VIAL.NEB NEB SCH (07:50)
--- NOTE | 2018-09-25 07:58 | P.CNS ---
Date of Consult: 09/25/18 Primary Care Provider: Dr. George; Nephrology-Dr. Leavitt Chief Complaint: Pleural effusion History of Present Illness: Patient is 58 years of age admitted with elevated white count and fever as in multiple hospital admissions end-stage renal disease patient has bilateral pleural effusion all left worse than the right white count remains persistently elevated despite broad-spectrum antibiotics possible abscess in the sacral area confirmed by an MRI scan has some shortness of breath poor historian denies any chest pain Allergies No Known Drug Allergies Allergy (Verified 09/20/18 21:00) Unknown No Allergy (Uncoded 04/08/18 08:07) Unknown Home Medications: Albuterol Sulfate [Albuterol Sulfate 0.083% Neb Soln] 2.5 mg IH Q6H PRN Amiodarone HCl [Cordarone*] 1 tab PO DAILY 09/13/18 Arformoterol Tartrate [Brovana] 1 inh IH BID 09/13/18 Carvedilol [Coreg*] 1 tab PO BID 09/13/18 Cholecalciferol (Vitamin D3) [Vitamin D3] 1 cap PO DAILY 09/13/18 Duloxetine HCl [Cymbalta] 60 mg PO DAILY 09/13/18 Ferrous Sulfate 1 tab PO BID 09/13/18 Hydrocodone Bit/Acetaminophen [[place] 7.5-325 Tablet] 1 tab PO Q6H PRN 09/13/18 Ipratropium Neb [Atrovent*] 1 inh IH Q4H PRN 09/13/18 Nifedipine [Procardia Xl] 1 tab PO BID 09/13/18 Ondansetron HCl [Zofran] 1 tab PO Q4H PRN 09/13/18 Pantoprazole Sodium [Protonix] 1 tab PO BID 09/13/18 Ramipril [Altace] 1 cap PO BEDTIME 09/13/18 Ziprasidone HCl [Geodon] 1 cap PO BID 09/13/18 levoFLOXacin [Levaquin*] 250 mg PO Q48H #4 tab 09/17/18 Dicyclomine [Bentyl*] 20 mg PO Q6H PRN 09/20/18 Glucagon HCl 1 mg IM Q2H PRN 09/20/18 Sucralfate [Carafate -Tab] 1 gm PO Q12H PRN 09/20/18 - Past Medical/Surgical History Diabetic: Yes -: DM-Type 2 -: HTN -: Hyperlipidemia -: Dementia, Parkinsons disease -: GERD -: ESRD, Nephrology-Dr. Leavitt, Dialysis-,,Sun -: Restless leg syndrome -: COPD -: Depression, insomnia -: Anemia of chronic disease -: Normal-pressure hydrocephalus -: CAD, PUD, CHF -: Cardiac stents. -: Numerous back surgeries -: Congestive heart failure Psychosocial/ Personal History: He currently lives at the snf - Family History Mother Medical History: Heart disease, Hypertension Father Medical History: Heart disease - Social History Smoking Status: Unknown if ever smoked Alcohol use: No CD- Drugs: No Caffeine use: Yes Place of [facility] Review of Systems General: Fever Respiratory: Shortness of Breath Physical Examination Temp Pulse Resp BP Pulse Ox 99.1 F 83 20 170/74 H 91 09/25/18 00:00 09/25/18 00:00 09/25/18 00:00 09/25/18 00:00 09/25/18 00:00 General: Alert, Oriented x3 Neck: Supple Respiratory: Diminished (Diminished air entry on the left side) Cardiovascular: No edema, Normal S1 S2 - Problems (1) Pleural effusion Current Visit: Yes Status: Acute Plan: Patient is 58 years of age end-stage renal disease multiple medical admissions admitted with fever elevated white count despite broad-spectrum antibiotics cultures are all negative possibility of a pleural infection consider thoracentesis he has abscess or inflammatory mass was niece to be evaluated by general surgery if not infected lead a thoracentesis on the left side patient is not taking anti antiplatelet agents is to be done under ultrasound by radiology
[2018-09-25] MEDS: HEPARIN 5000 UNIT/ML 1 ML VIAL SQ SCH (08:26)
[2018-09-25] MEDS: CARVEDILOL 6.25 MG TAB PO SCH (08:27)
[2018-09-25] MEDS: RAMIPRIL 5 MG CAP PO SCH (08:27)
[2018-09-25] MEDS: AMIODARONE HCL 200 MG TAB PO SCH (08:27)
[2018-09-25] MEDS: NIFEDIPINE XL 60 MG TABLET PO SCH (08:28)
[2018-09-25] MEDS: DULOXETINE 30 MG CAP PO SCH (08:28)
[2018-09-25] MEDS: ZIPRASIDONE 20 MG CAP PO SCH (09:33)
--- NOTE | 2018-09-25 11:56 | RAD REPORT ---
EXAM DESCRIPTION: CT - Thorax Wo Con - 09/25/2018 11:30 am CLINICAL HISTORY: Elevated white blood cell count, pleural effusion COMPARISON: CT study September 13 TECHNIQUE: Axial 5 mm thick images of the chest were obtained without IV contrast. All CT scans are performed using dose optimization technique as appropriate and may include automated exposure control or mA/KV adjustment according to patient size. FINDINGS: Exam was performed with the patient left-side down on the CT table. Patient was unable to tolerate any other positioning for the exam. Large left pleural effusion is present and has increased since September 13. Fluid mostly layers paulo ng the lateral left chest. Significant loculation is not confirmed. There is near complete left lower lobe and left upper lobe atelectasis. Minimal right pleural effusion is present with partial atelect asis in the right lower lobe. No pneumonia or suspicious finding in the aerated portions of the right lung field and minimal aerated portions of left lung field. No pneumothorax. No pleural based mass. No abnormal mediastinal or hilar masses or lymphadenopathy seen. No gross aortic or pulmonary artery finding suspected. Assessment is limited in the absence of IV contrast. Cardiomegaly is present with out pericardial thickening or effusion. Edema is present in the subcutaneous fatty tissues of the chest. Bilateral gynecomastia present. No c hest wall mass or acute rib lesion. IMPRESSION: Large left pleural effusion increased from September 13 layering along the lateral left chest. Patient was in a left lateral decubitus position for the examination. Near complete left upper and lower lobe atelectasis. Minimal right pleural effusion. No acute infiltrate of the lung parenchyma. Cardiomegaly without pericardial thickening or effusion.
[2018-09-25] MEDS ORDERED: FLUCONAZOLE 200mg IVPB 200 MG/100 ML BAG IV SCH (12:00)
[2018-09-25 12:26] LABS: Absolute Lymphocytes (CBC) 0.6 K/uL (0.7-4.9); Absolute Monocytes 1.7 K/uL (0.1-1.3); Absolute Neutrophil 23.3 K/uL (1.8-8.0); Basophils % 0.7 % (0-1.3); Hematocrit 33.8 % (39.6-49.0); Lymphocytes % 2.4 % (15.3-44.8); MCH 24.3 pg (27.0-35.0); MPV 7.8 fL (7.6-11.3); Monocytes % 6.5 % (3.3-12.3); RBC Red Blood Cell Count 4.33 M/uL (4.33-5.43)
[2018-09-25 12:50] LABS: Urine White Blood Cell Casts OK
[2018-09-25 12:51] LABS: Anisocytosis 1+; Blood Morphology Comment NOTED (NOT SEEN); Platelet Estimate ADEQ; Toxic Granulation 1+
[2018-09-25] MEDS ORDERED: MICAFUNGIN SODIUM 100 MG in NA CHLORIDE 0.9% 100 ML IV SCH (13:30)
--- NOTE | 2018-09-25 14:12 | CON ---
Date of Consultation: 09/25/2018 Reason: Abscess, back. 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 He was being treated in the hospital for pneumonia, however, s tarted complaining of some back pain and then MRI of the back shows a fluid collection around the amarilis e surgery done on his back with hardware close by and I was asked to evaluate. The patient is awake and alert, complaining of lower back pain, difficulty breathing, lies on his left side only. No feve r or chills. He has had significant leukocytosis since being admitted and there is no open wound in the back. Review of Systems: Otherwise unremarkable. Past Medical History: Significant for type 2 diabetes, hypertension, hyperlipidemia, dementia, Parki nson disease, GERD, end-stage renal disease, restless legs syndrome, COPD, coronary artery disease, a nd normal pressure hydrocephalus. Past Surgical History: Numerous back surgeries and cardiac stents. Allergies: NONE. Social History: The patient does not smoke or drink. Family History: Significant for heart disease and hypertension. Physical Examination: Vital Signs: Stable. He is afebrile. General: He is awake and alert, complaining of back pain. Head and Neck: No masses. Chest: Clear. Diminished on the left side. Heart: S1 and S2. Abdomen: Soft. Extremities: Neurovascularly intact. Neuro: Nonfocal. Back: Lower mid back, on the right side, there is an obvious large fluid collection approximately 10 x 15 cm. Skin is slightly discolored. There is no significant warmth to it, however, there is no o pen wound. Laboratory Data: White count is 30.1, H and H are 10.1 and 32.5, left shift. INR is 1.21. Chemistr y shows BUN 56, creatinine is 6.9. Last procalcitonin was 3.05. Lactic acid on admission was 1.4. Chest x-ray and chest CT reviewed with Dr. Guillen, it shows large pleural effusion increased from No vember 23rd layering along left chest, near-complete left upper and lower lobe atelectasis, minimal r ight pleural effusion, cardiomegaly without pericardial thickening or effusion. A lumbar MRI demonst rates 11 cm lobulated fluid collection with posterior subcutaneous tissue of the lumbar spine and sac rum, has a nonspecific appearance, moderate broad-based central disk herniation L5-S1 and this is tanner y close to the hardware that is present from the L4 to S1 region. Assessment: A 58-year-old gentleman, with multiple medical problems with sepsis, left pleural effusi on, back fluid collection, and end-stage renal disease. Recommendations: This is a very complicated patient, requires a back surgeon to be present if the costa rdware needs to be removed in the back and the fluid needs to be aspirated, also needs some fluid rem amaya from his chest where thoracic surgery VATS procedure may be necessary. Given the patient's miranda rbidities and the complex nature of his current issues, I believe the patient should be transferred t o a tertiary care facility where cardiothoracic surgery as well as back surgery backup is available. Continue IV antibiotics as ordered. Plan of care discussed in detail with Dr. Norman. BENNETT/BG Voice ID: [id number] Report ID: [id number]
[2018-09-25 16:54] VITALS: BP 154/73; TEMP 99.1
--- NOTE | 2018-09-25 17:06 | P.DS ---
Admission Date: 09/20/18 Discharge Date: 09/25/18 Primary Care Provider: Dr. George; Nephrology-Dr. Leavitt Reason for Admission: Pleural effusion Consultations: Pulmonology Infectious disease General surgery Nephrology - Problems (1) Sepsis Onset Date: 05/28/17 Current Visit: No Status: Resolved Qualifiers: Sepsis type: sepsis due to unspecified organism Qualified Code(s): A41.9 - Sepsis, unspecified organism (2) Fever Current Visit: Yes Status: Acute Qualifiers: Fever type: unspecified Qualified Code(s): R50.9 - Fever, unspecified (3) Leukocytosis Onset Date: 01/10/17 Current Visit: No Status: Acute Qualifiers: Leukocytosis type: bandemia Qualified Code(s): D72.825 - Bandemia (4) Pleural effusion Onset Date: 03/21/18 Current Visit: No Status: Acute (5) History of upper gastrointestinal bleeding Current Visit: No Status: Chronic (6) Atrial fibrillation Onset Date: 09/16/18 Current Visit: No Status: Chronic Qualifiers: (7) Bipolar disorder Onset Date: 05/04/17 Current Visit: No Status: Chronic Qualifiers: Active/Remission status: remission status unspecified (8) CAD (coronary artery disease) Onset Date: 12/24/17 Current Visit: No Status: Chronic Qualifiers: Coronary Disease-Associated Artery/Lesion type: [place] artery [place] vs. transplanted heart: [place] heart Associated angina: without angina Qualified Code(s): I25.10 - Atherosclerotic heart disease of [place] coronary artery without angina pectoris (9) CHF (congestive heart failure) Onset Date: 12/24/17 Current Visit: No Status: Chronic Qualifiers: Heart failure type: unspecified Heart failure chronicity: chronic Qualified Code(s): I50.9 - Heart failure, unspecified (10) COPD (chronic obstructive pulmonary disease) Onset Date: 12/24/17 Current Visit: No Status: Chronic Qualifiers: COPD type: chronic bronchitis Chronic bronchitis type: mucopurulent Qualified Code(s): J41.1 - Mucopurulent chronic bronchitis (11) Diabetes mellitus Onset Date: 05/04/17 Current Visit: No Status: Chronic Qualifiers: Diabetes mellitus type: type 2 Diabetes mellitus jail insulin use: with after school coordinator use Diabetes mellitus complication status: with other specified complication Qualified Code(s): E11.69 - Type 2 diabetes mellitus with other specified complication; Z79.4 - feed manager (current) use of insulin (12) ESRD (end stage renal disease) Onset Date: 12/24/17 Current Visit: No Status: Chronic (13) GERD (gastroesophageal reflux disease) Onset Date: 12/24/17 Current Visit: No Status: Chronic Qualifiers: Esophagitis presence: with esophagitis Qualified Code(s): K21.0 - Gastro- esophageal reflux disease with esophagitis (14) Hypertension Onset Date: 12/24/17 Current Visit: No Status: Chronic Qualifiers: Hypertension type: essential hypertension Brief History of Present Illness: 58-year-old male well known to me with multiple medical problems including end-stage renal disease, diabetes, hypertension, anemia of chronic disease, atrial fibrillation, bipolar disorder, CAD. Patient was recently hospitalized earlier in the week for hematemesis. This resolved. During the course of his stay the patient had some shortness of breath with elevation in his white blood cell count and hypoxia. Acute on chronic diastolic CHF and acute on chronic COPD exacerbation with underlying possible pneumonia was suspected. Patient with bilateral chronic pleural effusions. The patient was recently discharged back to the half-way with Levaquin. Today the patient was sent to the ER due to abnormal lab. He was found to have elevation in his white count. Patient's only complaint is a dry cough. There is reports of fever. No significant shortness of breath, sharp chest pain, nausea or vomiting noted. In the ER lab was repeated. White count elevated at 29.5, this was a significant change from previous. Hemoglobin 11.1, platelet count of 390. Sodium 136, potassium 4.2, BUN of 32, creatinine 5.2, GFR of 11. Glucose 295. Pro calcitonin elevated at 3.5, lactic acid normal 1.4. BNP elevated. Chest x- ray showed bilateral pleural effusions. Patient was admitted for further evaluation and treatment. When I saw the patient ER, he did not appear in any respiratory distress. Patient is on oxygen at the half-way. Patient had been taking his medication Levaquin. He denies no skin problems. No other complaints noted by patient. Hospital Course: Overall well here in the hospital patient remains stable Patient is a 58-year-old male with a frequent Flyer here in the hospital has been admitted several times to the hospital for upper GI bleeding due to noncompliance with medication at the half-way. Patient however this time was brought over to the hospital for shortness of breath and possible sepsis secondary to pneumonia. However it over the hospital course patient was found to be in sepsis secondary to possible sacral abscess and infected profusion and thus was transferred to the [facility] for higher level of care. During the course of the hospital visit patient after admission was placed on medical-surgical floor and started on IV vancomycin and Zosyn here for presumed pneumonia. Pulmonology was consulted who believe the patient most likely does not have pneumonia and is chronic profusion is was causing him to have elevated leukocytosis and fever. Patient was continued on the IV antibiotics until cultures was resulted. Cultures were negative thus far here in the hospital. Patient however while here in the hospital stay had increasing worsening of his leukocytosis. Upon physical examination of the patient patient did appear to have a sacral bulge which was very tender to touch along with marked erythema and swelling was noted to the area. Patient had an MRI of the lumbar spine done which was consistent with loculated fluid collection by L4-S1 which was presumed to be an abscess. General surgery then was consulted for possible drainage of the abscess. General surgery recommended the patient be transferred to higher level of care where there is your surgery due to patient having hardware in that area previously. Patient did have a history of epidural abscess in 2017 which she was treated for at [facility] extensively. Purulent effusion patient was noted to have large pleural thickening resolved with hemodialysis and thus CT of the chest was done which was consistent with loculated pleural effusion which was significantly large in size. At that time it was deemed necessary that patient be transferred to a higher level of care for neurosurgery and cardiothoracic coverage for possible drainage of his abscess in the back along with drainage of his pleural effusion by CT surgery. [facility] was consulted. Patient was noted to the hospice team over there and patient was accepted by the hospital list along with CT surgery and neurosurgery. While here in the hospital patient chronic condition remained stable. Patient did receive hemodialysis here with nephrology. His chronic medications were restarted while here in the hospital as well. Vital Signs/Physical Exam: Temp Pulse Resp BP Pulse Ox 99.1 F 69 16 154/73 H 93 09/25/18 16:00 09/25/18 16:00 09/25/18 16:00 09/25/18 16:00 09/25/18 16:00 General: Alert, Moderate distress HEENT: Atraumatic, PERRLA, EOMI Neck: Supple, JVD not distended Respiratory: Clear to auscultation bilaterally, Diminished, Crackles/rales Cardiovascular: Regular rate/rhythm, Normal S1 S2 Gastrointestinal: Normal bowel sounds, Soft and benign, No tenderness Musculoskeletal: No tenderness Integumentary: Tenderness/swelling, Erythema, Warmth, Other (Sacral bulge noted with acute tenderness to touch erythema and warmth) Neurological: Normal speech, Normal affect Lymphatics: No axilla or inguinal lymphadenopathy Laboratory Data at Discharge: WBC 26.4 K/uL (4.3-10.9) H* 09/25/18 12:05 Hgb 10.5 g/dL (13.6-17.9) L 09/25/18 12:05 Hct 33.8 % (39.6-49.0) L 09/25/18 12:05 Plt Count 297 K/uL (152-406) 09/25/18 12:05 PT 14.3 SECONDS (9.5-12.5) H 09/20/18 15:20 INR 1.21 09/20/18 15:20 Sodium 137 mmol/L (136-145) 09/24/18 10:31 Potassium 5.3 mmol/L (3.5-5.1) H 09/24/18 10:31 BUN 56 mg/dL (7-18) H 09/24/18 10:31 Creatinine 6.90 mg/dL (0.55-1.3) H* D 09/24/18 10:31 Glucose 104 mg/dL (74-106) 09/24/18 10:31 Magnesium 2.3 mg/dL (1.8-2.4) 09/23/18 03:55 Total Bilirubin 0.4 mg/dL (0.2-1.0) 09/24/18 10:31 AST 6 U/L (15-37) L 09/24/18 10:31 ALT 10 U/L (12-78) L 09/24/18 10:31 Alkaline Phosphatase 108 U/L (45-117) 09/24/18 10:31 Home Medications: Albuterol Sulfate [Albuterol Sulfate 0.083% Neb Soln] 2.5 mg IH Q6H PRN Amiodarone HCl [Cordarone*] 1 tab PO DAILY 09/13/18 Arformoterol Tartrate [Brovana] 1 inh IH BID 09/13/18 Carvedilol [Coreg*] 1 tab PO BID 09/13/18 Cholecalciferol (Vitamin D3) [Vitamin D3] 1 cap PO DAILY 09/13/18 Duloxetine HCl [Cymbalta] 60 mg PO DAILY 09/13/18 Ferrous Sulfate 1 tab PO BID 09/13/18 Hydrocodone Bit/Acetaminophen [[place] 7.5-325 Tablet] 1 tab PO Q6H PRN 09/13/18 Ipratropium Neb [Atrovent*] 1 inh IH Q4H PRN 09/13/18 Nifedipine [Procardia Xl] 1 tab PO BID 09/13/18 Ondansetron HCl [Zofran] 1 tab PO Q4H PRN 09/13/18 Pantoprazole Sodium [Protonix] 1 tab PO BID 09/13/18 Ramipril [Altace] 1 cap PO BEDTIME 09/13/18 Ziprasidone HCl [Geodon] 1 cap PO BID 09/13/18 levoFLOXacin [Levaquin*] 250 mg PO Q48H #4 tab 09/17/18 Dicyclomine [Bentyl*] 20 mg PO Q6H PRN 09/20/18 Glucagon HCl 1 mg IM Q2H PRN 09/20/18 Sucralfate [Carafate -Tab] 1 gm PO Q12H PRN 09/20/18
[2018-09-25 17:37] VITALS: O2SAT 93
--- NOTE | 2018-09-25 20:31 | P.PN ---
Date of Service: 09/24/18 Vital Signs Temp Pulse Resp BP Pulse Ox 99.1 F 69 16 154/73 H 93 09/25/18 16:00 09/25/18 16:00 09/25/18 16:00 09/25/18 16:00 09/25/18 16:00 Microbiology Results 09/20/18 15:45 Blood - Blood Aerobic Blood Culture - Final No growth in 5 days. 09/20/18 15:45 Blood - Blood Anaerobic Blood Culture - Final No growth in 5 days. 09/20/18 15:20 Blood - Blood Aerobic Blood Culture - Final No growth in 5 days. 09/20/18 15:20 Blood - Blood Anaerobic Blood Culture - Final No growth in 5 days. Assessment/ Plan: Nephrology. Malaise and weakness. CPS improved without CP or SOB. No acute events overnight. Vitals, medications, blood work and imaging reviewed in the chart. NAD. MMM. Neck supple. CTA. RRR. Soft Abd. No C/C/E. No rash. AAO. Normal speech. A/ ESRD on HD. HTN with CKD/ HTN. Diastolic CHF, chronic. Anemia in chronic illness. JACOB/ Secondary HyperPTH. Persistent leukocytosis. P/ Continue current POC and Medications. HD today. Agree with abx. Plan for MRI today. No NSAIDs. AM labs. Daily weight.
--- NOTE | 2018-09-25 20:32 | P.PN ---
Date of Service: 09/25/18 Vital Signs Temp Pulse Resp BP Pulse Ox 99.1 F 69 16 154/73 H 93 09/25/18 16:00 09/25/18 16:00 09/25/18 16:00 09/25/18 16:00 09/25/18 16:00 Microbiology Results 09/20/18 15:45 Blood - Blood Aerobic Blood Culture - Final No growth in 5 days. 09/20/18 15:45 Blood - Blood Anaerobic Blood Culture - Final No growth in 5 days. 09/20/18 15:20 Blood - Blood Aerobic Blood Culture - Final No growth in 5 days. 09/20/18 15:20 Blood - Blood Anaerobic Blood Culture - Final No growth in 5 days. Assessment/ Plan: Nephrology. Malaise and weakness. CPS improved without CP or SOB. No acute events overnight. Vitals, medications, blood work and imaging reviewed in the chart. NAD. MMM. Neck supple. CTA. RRR. Soft Abd. No C/C/E. No rash. AAO. Normal speech. A/ ESRD on HD. HTN with CKD/ HTN. Diastolic CHF, chronic. Anemia in chronic illness. JACOB/ Secondary HyperPTH. Lumbar abscess. P/ Continue current POC and Medications. HD today. Agree with abx. Possible transfer today for neurosurgery evaluation. No NSAIDs. AM labs. Daily weight.
== END 2018-09-25 17:30 | disposition short-term general hospital (02) | DRG 871 ==
LOC: ER 13:00 → ERHOLD 17:28 → 4TH 20:23
PROVIDERS: ADMIT Family Medicine; ATTEND Family Medicine
PROC: 5A1D70Z Performance of Urinary Filtration, Intermittent, Less than 6 Hours Per Day (ICD-10-PCS; principal; 2018-09-21)
PROC: 5A1D70Z Performance of Urinary Filtration, Intermittent, Less than 6 Hours Per Day (ICD-10-PCS; 2018-09-24)
DX: A41.9 Sepsis, unspecified organism (principal); J18.9 Pneumonia, unspecified organism; N18.6 End stage renal disease; I50.33 Acute on chronic diastolic (congestive) heart failure; I13.2 Hypertensive heart and chronic kidney disease with heart failure and with stage 5 chronic kidney disease, or end stage renal disease; J90 Pleural effusion, not elsewhere classified; J44.0 Chronic obstructive pulmonary disease with (acute) lower respiratory infection; J44.1 Chronic obstructive pulmonary disease with (acute) exacerbation; L02.212 Cutaneous abscess of back [any part, except buttock and flank]; I48.91 Unspecified atrial fibrillation; F31.9 Bipolar disorder, unspecified; I25.10 Atherosclerotic heart disease of native coronary artery without angina pectoris; J41.1 Mucopurulent chronic bronchitis; Z79.4 Long term (current) use of insulin; K21.9 Gastro-esophageal reflux disease without esophagitis; E11.22 Type 2 diabetes mellitus with diabetic chronic kidney disease; Z99.2 Dependence on renal dialysis; Z99.81 Dependence on supplemental oxygen; G20 Parkinson's disease; F02.80 Dementia in other diseases classified elsewhere, unspecified severity, without behavioral disturbance, psychotic disturbance, mood disturbance, and anxiety; G25.81 Restless legs syndrome
CPT/HCPCS: 36415; 71045; 71250; 72148; 80048; 80053; 80076; 80202; 82962; 83036; 83605; 83735; 83880; 84145; 84484; 85025; 85610; 87040; 90935; 93005; 94640; 99285; J1170; J1644; J2248; J3370; J7605; Q4081

== ENCOUNTER 2018-11-07 10:51 | Observation (INO) | payer MEDICAID ==
--- OUTSIDE RECORDS SUMMARY | 2018-11-07 10:55 | XMS REPORT | Clinical Summary ---
:1960 Author Organization [facility] Address [address] [place] [address] Care Team Providers Name Role Phone Unavailable Primary Care Provider Unavailable Allergies No Known Allergies Medications Medication Sig Dispensed Refills Start End Status Date Date donepezil (ARICEPT) Take 10 mg by 0 Active 10 MG tablet mouth nightly. atorvastatin Take 10 mg by 0 Active (LIPITOR) 10 MG mouth daily. tablet ferrous gluconate Take 324 mg by 0 Active (FERGON) 324 MG mouth daily with tablet breakfast. multivitamin Take 1 tablet by 0 Active (MULTIVITAMIN) per mouth daily. tablet cholecalciferol, Take 5,000 Units 0 Active vitamin D3, 2,000 by mouth daily . unit Cap acetaminophen Take 500 mg by 0 Active (TYLENOL) 500 MG mouth every 6 tablet (six) hours as needed for Pain. pantoprazole Take 40 mg by 0 Active (PROTONIX) 40 MG mouth daily. tabletIndications: gastroesophageal reflux disease epoetin mendy Inject 2 mLs 1 mL 0 Active (EPOGEN,PROCRIT) (8,000 Units 7 4,000 unit/mL total) injection subcutaneously 3 (three) times a week after dialysis. heparin injection Inject 1 mL (5,000 1 mL 0 Active 5,000 units/mL for Units total) 7 DVT subcutaneously prophylaxis/dialysis every 12 (twelve) lock/IV bolus hours. gabapentin Take 1 capsule 0 Active (NEURONTIN) 100 MG (100 mg total) by 7 capsule mouth 2 (two) times daily. hydrALAZINE Take 0.5 tablets 0 Active (APRESOLINE) 100 MG (50 mg total) by 9 tablet mouth 3 (three) times daily. HYDROcodone-acetamin Take 1 tablet by 30 tablet 0 Active ophen (NORCO 10-325) mouth every 4 9 019 10-325 mg per tablet (four) hours as needed for up to 10 days. Max Daily Amount: 6 tablets amiodarone Take 1 tablet (200 0 /06/12 Active (PACERONE) 200 MG mg total) by mouth 9 019 tablet daily for 30 days. carvedilol (COREG) Take 1 tablet 0 Active 6.25 MG tablet (6.25 mg total) by 9 020 mouth 2 (two) times daily. ceftaroline Inject 300 mg 0 Active (TEFLARO) IVPB in intravenously 9 019 100 mL every 12 (twelve) hours for 40 days. DAPTOmycin (CUBICIN) Inject 650 mg 0 Active in sodium chloride intravenously 9 019 (NS) NON-DEHP 50 ML every other day IVPB for 39 days. DULoxetine Take 1 capsule (30 30 tablet 0 Active (CYMBALTA) 30 MG mg total) by mouth 9 020 capsule daily. ipratropium-albutero Take 3 mLs by 0 Active l (DUO-NEB) 0.5 mg-3 nebulization every 9 020 mg(2.5 mg base)/3 mL 6 (six) hours as nebulizer solution needed for Wheezing or Shortness of Breath for up to 360 days. methocarbamol Take 1 tablet (750 0 Active (ROBAXIN) 750 MG mg total) by mouth 9 019 tablet 4 (four) times daily for 10 days. NIFEdipine (ADALAT Take 1 tablet (90 0 Active CC) 90 MG 24 hr mg total) by mouth 9 020 tablet 2 (two) times daily. ramipril (ALTACE) 10 Take 1 capsule (10 0 Active MG capsule mg total) by mouth 9 020 daily. insulin regular Use as directed. 10 mL 0 Active (HUMULIN R,NOVOLIN 9 020 R) 100 unit/mL injection venlafaxine Take 150 mg by 0 Discontinued (EFFEXOR-XR) 150 MG mouth 2 (two) 019 24 hr capsule times daily . zolpidem (AMBIEN) 5 Take 5 mg by mouth 0 Discontinued MG tablet every night as 019 needed for Insomnia. pramipexole Take 0.25 mg by 0 Discontinued (MIRAPEX) 0.25 MG mouth nightly. 019 tablet amLODIPine (NORVASC) Take 10 mg by 0 Discontinued 10 MG tablet mouth daily. 019 ALPRAZolam (XANAX) 2 Take 1 mg by mouth 0 Discontinued MG tablet daily as needed 019 for Sleep (before dialysis). lurasidone 80 mg Tab Take 100 mg by 0 Discontinued mouth nightly . [address] 0.4 mg under 0 Discontinued (NITROSTAT) 0.4 MG the tongue every 5 019 SL tablet (five) minutes as needed for Chest pain Put 1 pill under tongue every 5min as needed for chest pain.No more than 3 doses in 15min.Call 911 if pain is unrelieved 5min after 1st dose . HYDROcodone-acetamin Take 1 tablet by 0 Discontinued ophen (NORCO mouth every 6 019 7.5-325) 7.5-325 mg (six) hours as per needed for Pain. tabletIndications: Pain ranolazine (RANEXA) Take 500 mg by 0 Discontinued 500 MG 12 hr tablet mouth 2 (two) 019 times daily Two tabs . ziprasidone (GEODON) Take 20 mg by 0 Discontinued 20 MG capsule mouth 2 (two) 019 times daily with breakfast and dinner. fentaNYL (DURAGESIC) Place 1 patch onto 0 Discontinued 25 mcg/hr patch the skin every 019 third day. doxazosin (CARDURA) Take 8 mg by mouth 0 Discontinued 8 MG tablet nightly. 019 carvedilol (COREG) Take 1 tablet (25 0 12/21/201 12/21/2 25 MG tablet mg total) by mouth 7 018 2 (two) times daily. balsam reta-castor Apply 1 0 Discontinued oil (VENELEX) 02-428 application 7 019 mg/gram Oint topically 2 (two) times daily as needed (wound care). ipratropium-albutero Take 3 mLs by 0 l (DUO-NEB) 0.5 mg-3 nebulization every 7 018 mg(2.5 mg base)/3 mL 6 (six) hours as nebulizer solution needed for Wheezing for up to 360 days. losartan (COZAAR) 50 Take 1 tablet (50 0 Discontinued MG tablet mg total) by mouth 7 019 2 (two) times daily. insulin 70/30, Inject 7 Units 10 mL 0 Discontinued insulin NPH-insulin subcutaneously 2 7 019 regular, (HUMULIN (two) times daily 70/30,NOVOLIN 70/30) before meals. 100 unit/mL (70-30) injectionIndications : diabetes mellitus hydrALAZINE Take 1 tablet (100 0 Discontinued (APRESOLINE) 100 MG mg total) by mouth 7 019 tablet 3 (three) times daily. insulin regular Use as directed. 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 Paraplegic spinal paralysis 12/26/2016 Sacral decubitus ulcer 12/26/2016 ESRD on hemodialysis 12/26/2016 Acute bilateral low back pain without sciatica 11/30/2016 Back pain 11/29/2016 Complications, dialysis, catheter, mechanical 04/06/2016 Angina effort 09/04/2014 CAD (coronary artery disease) 09/04/2014 ESRD (end stage renal disease) on dialysis Encounters Date Type Specialty Care Team Description 10/20/2018 Anesthesia Event Rufina Azul MD 10/20/2018 Surgery Eduardo Ruggiero LAMINECTOMY,CRISTIAN Galvin MD 09/30/2018 Anesthesia Event Gastroenterology Virgil Delgado CRNA 09/30/2018 Surgery Gastroenterology Vincent Pitt UPPER ENDOSCOPY MD Odilon 09/28/2018 Anesthesia Event Lakshmi Knox MD 09/28/2018 Surgery Eduardo Ruggiero LAMINECTOMY, CRISTIAN Galvin MD W/INTERNAL FIXATION 09/25/2018 [facility] Internal Kiet Feldman Abscess in epidural space of L2-L5 lumbar spine (Primary Dx); - Encounter Medicine Kaiser BOURNE MD Loculated pleural effusion; 11/06/2018 Brann, Acute bilateral low back pain without sciatica; aLneopher Epidural abscess; MD Júnior ESRD on hemodialysis ([facility]); [place], [place] Paraplegic spinal paralysis ([facility]); MD Yolette Vertebral osteomyelitis ([facility]); Alba Gia Spinal abscess ([facility]); MD Sy Pleural effusion, left; Parag Swanson, Leukocytosis, unspecified type; Queenie Johnson MD Hx MRSA infection; ESRD (end stage renal disease) on dialysis ([facility]); Erosive esophagitis; Depression, unspecified depression type; MRSA infection 09/25/2018 Travel after 11/06/2017 Social History Tobacco Use Types Packs/Day Years Used Date Former Smoker 0 Alcohol Use Drinks/Week oz/Week Comments No Sex Assigned at Date Recorded Not on file Job Start Date Occupation Industry Not on file Not on file Not on file Travel History Travel Start Travel End No recent travel history available. Last Filed Vital Signs Vital Sign Reading Time Taken Blood Pressure 167/77 11/06/2018 4:05 PM REHAB MANAGER Pulse 67 11/06/2018 4:05 PM REHAB MANAGER Temperature 36.2 C (97.2 F) 11/06/2018 4:05 PM REHAB MANAGER Respiratory Rate 18 11/06/2018 4:05 PM REHAB MANAGER Oxygen Saturation 97% 11/06/2018 4:05 PM REHAB MANAGER Inhaled Oxygen Concentration 21% 10/09/2018 11:45 AM REHAB MANAGER Weight 78.5 kg (173 lb 1 oz) 10/26/2018 12:44 PM REHAB MANAGER Height 170.2 cm (5' 7.01") 09/25/2018 11:00 PM REHAB MANAGER Body Mass Index 27.1 10/26/2018 12:44 PM REHAB MANAGER Plan of Treatment Not on file Implants Implanted Type Area Machine Clipper Device Shelf Model / Identifier Expiration Serial / Lot Date Infusion Set Bone Infuseii [id number] - [id number] Bone N/A: MEDTRONIC: SPINAL 08/22/2018 [id number] / Implanted: Qty: 1 on 12/12/2016 by Eduardo Ruggiero MD Spine BIOLOGICS / Lumbar [id number] Graft Bone Orthoblend [facility] [id number] - [id number] Bone N/A: MEDTRONIC:SPINAL 04/03/2019 [id number] / Implanted: Qty: 1 on 09/28/2018 by Eduardo Ruggiero MD Spine GRAFT [id number] / Lumbar Infusion Set Bone Infuseii [id number] - [id number] Bone N/A: MEDTRONIC: SPINAL 03/21/2020 [id number] / Implanted: Qty: 1 on 09/28/2018 by Eduardo Ruggiero MD Spine BIOLOGICS / Lumbar [id number] Graft Bone [facility]oblend [facility] [id number] - [id number] Bone N/A: MEDTRONIC:SPINAL 03/26/2020 [id number] / Implanted: Qty: 1 on 09/28/2018 by Eduardo Ruggiero MD Spine GRAFT [id number] / Lumbar Graft Bone [facility] [id number] - [id number] Bone N/A: MEDTRONIC:SPINAL 04/03/2019 [id number] / Implanted: Qty: 1 on 09/28/2018 by Eduardo Ruggiero MD Spine GRAFT [id number] / Lumbar Matrix Floseal Hemo W/O Ndl 10 [id number] - [id number] Cement/Fi N/A: MA: BIOSCI 04/20/2019 [id number] / Implanted: Qty: 2 on 12/12/2016 by Eduardo Ruggiero MD ller/Terrance Spine / sive Lumbar [id number] Bone Putty Stimulan 10 620-010 - [id number] Cement/Fi N/A: BIOCOMPOSITES 08/21/2019 620-010 / Implanted: Qty: 1 on 12/12/2016 by Eduardo Ruggiero MD ller/Terrance Spine / sive Lumbar 08/06-R300/301 Flseal Vhsd Full Strlprep 10ml [id number] - [id number] Cement/Fi N/A: MA: BIOSCI [id number] / Implanted: Qty: 1 on 09/28/2018 by Eduardo Ruggiero MD ller/Terrance Spine / sive Lumbar [id number] Bone Putty Stimulan 10cc 620-010 - [id number] Cement/Fi Back BIOCOMPOSITES 08/21/2021 620-010 / Implanted: Qty: 1 on 10/20/2018 by Eduardo Ruggiero MD ller/Terrance / sive 08/08-R381/382 Connector Set Screw Joints N/A: MEDTRONIC [id number] / Implanted: Qty: 1 on 12/12/2016 by Eduardo Ruggiero MD Spine / Lumbar Medtronic Sofamor Danek 10cc Sprinal Graft Spine N/A: MEDTRONIC 2017 [id number] / Implanted: Qty: 1 on 12/12/2016 by Eduardo Ruggiero MD Spine [id number] / Lumbar Medtronic Sofamor Daek Orthoblend Small 10cc Spine N/A: MEDTRONIC 2017 [id number] / Implanted: Qty: 1 on 12/12/2016 by Eduardo Ruggiero MD Spine [id number] / Lumbar Medtronic Sofarmor Danek Orthoblend Small 10cc Spine N/A: MEDTRONIC [id number] / Implanted: Qty: 1 on 12/12/2016 by Eduardo Ruggiero MD Spine [id number] / Lumbar Screw Set Ti Ns Brk Off 5.5 - [id number] Spine N/A: MEDTRONIC:SPINAL [id number] / Implanted: Qty: 6 on 12/12/2016 by Eduardo Ruggiero MD Spine BIOLOGICS / Lumbar [id number] Screw Mas Cc 7.5x50 [id number] - [id number] Spine N/A: MEDTRONIC:SPINAL [id number] / Implanted: Qty: 2 on 12/12/2016 by Eduardo Ruggiero MD Spine BIOLOGICS / Lumbar [id number] Screw Mas Cc 7.5 X 45 [id number] - [id number] Spine N/A: MEDTRONIC:SPINAL [id number] / Implanted: Qty: 2 on 12/12/2016 by Eduardo Ruggiero MD Spine BIOLOGICS / Lumbar [id number] Scr Mas 8.5x90 [id number] - [id number] Spine N/A: MEDTRONIC:SPINE: [id number] / Implanted: Qty: 1 on 12/12/2016 by Eduardo Ruggiero MD Spine SOFAMOR DANEK / Lumbar [id number] Ballast Mas 8.5x80 Spine N/A: MEDTRONIC [id number] / Implanted: Qty: 1 on 12/12/2016 by Eduardo Ruggiero MD Spine / Lumbar [id number] Taco [id number] Spine N/A: MEDTRONIC [id number] / Implanted: Qty: 2 on 12/12/2016 by Eduardo Ruggiero MD Spine / Lumbar [id number] Connector 20mm Spine N/A: MEDTRONIC [id number] / Implanted: Qty: 1 on 12/12/2016 by Eduardo Ruggiero MD Spine / Lumbar Scr Set Ti Ns Brk Off 5.5 [id number] - [id number] Spine N/A: MEDTRONIC:SPINAL [id number] / Implanted: Qty: 9 on 09/28/2018 by Eduardo Ruggiero MD Spine BIOLOGICS / Lumbar [id number] Scr Mas Cc 8.5x45mm [id number] - [id number] Spine N/A: MEDTRONIC:SPINAL [id number] / Implanted: Qty: 1 on 09/28/2018 by Eduardo Ruggiero MD Spine BIOLOGICS / Lumbar [id number] Scr Mas Cc 8.5x50 [id number] - [id number] Spine N/A: MEDTRONIC:SPINAL [id number] / Implanted: Qty: 1 on 09/28/2018 by Eduardo Ruggiero MD Spine BIOLOGICS / Lumbar [id number] Scr Ballast 8.5x80mm [id number] - [id number] Spine N/A: MEDTRONIC:SPINAL [id number] / Implanted: Qty: 2 on 09/28/2018 by Eduardo Ruggiero MD Spine BIOLOGICS / Lumbar [id number] Scr Mas Cc 7.5x50 [id number] - [id number] Spine N/A: MEDTRONIC:SPINAL [id number] / Implanted: Qty: 2 on 09/28/2018 by Eduardo Rugigero MD Spine BIOLOGICS / Lumbar [id number] Taco 5.4v058nm [id number] - [id number] Spine N/A: MEDTRONIC:SPINAL [id number] / Implanted: Qty: 1 on 09/28/2018 by Eduardo Ruggiero MD Spine BIOLOGICS / Lumbar [id number] Connector N/A: MEDTRONIC [id number] / Implanted: Qty: 1 on 09/28/2018 by Eduardo Ruggiero MD Spine / Lumbar Procedures Procedure Name Priority Date/Time Associated Diagnosis Comments POCT-GLUCOSE METER Routine 11/06/2018 1:02 Results for PM REHAB MANAGER this procedure are in the results section. POCT-GLUCOSE METER Routine 11/06/2018 8:00 Results for AM REHAB MANAGER this procedure are in the results section. (CELLAVISION MANUAL Routine 11/06/2018 5:16 Results for DIFF) AM REHAB MANAGER this procedure are in the results section. CBC W/PLT COUNT & Routine 11/06/2018 5:16 Results for AUTO DIFFERENTIAL AM REHAB MANAGER this procedure are in the results section. CBC W/PLT COUNT & Routine 11/06/2018 5:16 Results for AUTO DIFFERENTIAL AM REHAB MANAGER this procedure are in the results section. BASIC METABOLIC PANEL Routine 11/06/2018 5:16 Results for (7) AM REHAB MANAGER this procedure are in the results section. POCT-GLUCOSE METER Routine 11/05/2018 9:45 Results for PM REHAB MANAGER this procedure are in the results section. POCT-GLUCOSE METER Routine 11/05/2018 5:21 Results for PM REHAB MANAGER this procedure are in the results section. POCT-GLUCOSE METER Routine 11/05/2018 12:19 Results for PM REHAB MANAGER this procedure are in the results section. HEMODIALYSIS Routine 11/05/2018 11:38 Results for INPATIENT AM REHAB MANAGER this procedure are in the results section. POCT-GLUCOSE METER Routine 11/05/2018 9:47 Results for AM REHAB MANAGER this procedure are in the results section. (CELLAVISION MANUAL Routine 11/05/2018 5:07 Results for DIFF) AM REHAB MANAGER this procedure are in the results section. CBC W/PLT COUNT & Routine 11/05/2018 5:07 Results for AUTO DIFFERENTIAL AM REHAB MANAGER this procedure are in the results section. PHOSPHORUS Routine 11/05/2018 5:07 Results for AM REHAB MANAGER this procedure are in the results section. MAGNESIUM Routine 11/05/2018 5:07 Results for AM REHAB MANAGER this procedure are in the results section. CBC W/PLT COUNT & Routine 11/05/2018 5:07 Results for AUTO DIFFERENTIAL AM REHAB MANAGER this procedure are in the results section. BASIC METABOLIC PANEL Routine 11/05/2018 5:07 Results for (7) AM REHAB MANAGER this procedure are in the results section. POCT-GLUCOSE METER Routine 11/05/2018 12:59 Results for AM REHAB MANAGER this procedure are in the results section. POCT-GLUCOSE METER Routine 11/04/2018 4:59 Results for PM REHAB MANAGER this procedure are in the results section. PHOSPHORUS Routine 11/04/2018 2:09 Results for PM REHAB MANAGER this procedure are in the results section. POCT-GLUCOSE METER Routine 11/04/2018 11:37 Results for AM REHAB MANAGER this procedure are in the results section. POCT-GLUCOSE METER Routine 11/04/2018 7:16 Results for AM REHAB MANAGER this procedure are in the results section. (CELLAVISION MANUAL Routine 11/04/2018 4:41 Results for DIFF) AM REHAB MANAGER this procedure are in the results section. CBC W/PLT COUNT & Routine 11/04/2018 4:41 Results for AUTO DIFFERENTIAL AM REHAB MANAGER this procedure are in the results section. CBC W/PLT COUNT & Routine 11/04/2018 4:41 Results for AUTO DIFFERENTIAL AM REHAB MANAGER this procedure are in the results section. BASIC METABOLIC PANEL Routine 11/04/2018 4:41 Results for (7) AM REHAB MANAGER this procedure are in the results section. POCT-GLUCOSE METER Routine 11/03/2018 5:27 Results for PM REHAB MANAGER this procedure are in the results section. POCT-GLUCOSE METER Routine 11/03/2018 12:10 Results for PM REHAB MANAGER this procedure are in the results section. POCT-GLUCOSE METER Routine 11/03/2018 8:11 Results for AM REHAB MANAGER this procedure are in the results section. (CELLAVISION MANUAL Routine 11/03/2018 5:59 Results for DIFF) AM REHAB MANAGER this procedure are in the results section. CBC W/PLT COUNT & Routine 11/03/2018 5:59 Results for AUTO DIFFERENTIAL AM REHAB MANAGER this procedure are in the results section. CBC W/PLT COUNT & Routine 11/03/2018 5:59 Results for AUTO DIFFERENTIAL AM REHAB MANAGER this procedure are in the results section. BASIC METABOLIC PANEL Routine 11/03/2018 4:38 Results for (7) AM REHAB MANAGER this procedure are in the results section. POCT-GLUCOSE METER Routine 11/02/2018 10:41 Results for PM REHAB MANAGER this procedure are in the results section. POCT-GLUCOSE METER Routine 11/02/2018 5:22 Results for PM REHAB MANAGER this procedure are in the results section. HEMODIALYSIS Routine 11/02/2018 5:04 Results for INPATIENT PM REHAB MANAGER this procedure are in the results section. POCT-GLUCOSE METER Routine 11/02/2018 11:35 Results for AM REHAB MANAGER this procedure are in the results section. POCT-GLUCOSE METER Routine 11/02/2018 8:19 Results for AM REHAB MANAGER this procedure are in the results section. (CELLAVISION MANUAL Routine 11/02/2018 4:11 Results for DIFF) AM REHAB MANAGER this procedure are in the results section. CBC W/PLT COUNT & Routine 11/02/2018 4:11 Results for AUTO DIFFERENTIAL AM REHAB MANAGER this procedure are in the results section. PHOSPHORUS Routine 11/02/2018 4:11 Results for AM REHAB MANAGER this procedure are in the results section. MAGNESIUM Routine 11/02/2018 4:11 Results for AM REHAB MANAGER this procedure are in the results section. CBC W/PLT COUNT & Routine 11/02/2018 4:11 Results for AUTO DIFFERENTIAL AM REHAB MANAGER this procedure are in the results section. BASIC METABOLIC PANEL Routine 11/02/2018 4:11 Results for (7) AM REHAB MANAGER this procedure are in the results section. POCT-GLUCOSE METER Routine 11/01/2018 9:16 Results for PM REHAB MANAGER this procedure are in the results section. POCT-GLUCOSE METER Routine 11/01/2018 8:20 Results for AM REHAB MANAGER this procedure are in the results section. (CELLAVISION MANUAL Routine 11/01/2018 4:41 Results for DIFF) AM REHAB MANAGER this procedure are in the results section. CBC W/PLT COUNT & Routine 11/01/2018 4:41 Results for AUTO DIFFERENTIAL AM REHAB MANAGER this procedure are in the results section. PHOSPHORUS Routine 11/01/2018 4:41 Results for AM REHAB MANAGER this procedure are in the results section. MAGNESIUM Routine 11/01/2018 4:41 Results for AM REHAB MANAGER this procedure are in the results section. CBC W/PLT COUNT & Routine 11/01/2018 4:41 Results for AUTO DIFFERENTIAL AM REHAB MANAGER this procedure are in the results section. BASIC METABOLIC PANEL Routine 11/01/2018 4:41 Results for (7) AM REHAB MANAGER this procedure are in the results section. POCT-GLUCOSE METER Routine 10/31/2018 9:11 Results for PM REHAB MANAGER this procedure are in the results section. HEMODIALYSIS Routine 10/31/2018 8:13 INPATIENT PM REHAB MANAGER HEMODIALYSIS Routine 10/31/2018 8:13 INPATIENT PM REHAB MANAGER HEMODIALYSIS Routine 10/31/2018 8:13 INPATIENT PM REHAB MANAGER POCT-GLUCOSE METER Routine 10/31/2018 7:56 Results for AM REHAB MANAGER this procedure are in the results section. (CELLAVISION MANUAL Routine 10/31/2018 4:10 Results for DIFF) AM REHAB MANAGER this procedure are in the results section. CBC W/PLT COUNT & Routine 10/31/2018 4:10 Results for AUTO DIFFERENTIAL AM REHAB MANAGER this procedure are in the results section. CREATINE KINASE (CK) Routine 10/31/2018 4:10 Results for AM REHAB MANAGER this procedure are in the results section. PHOSPHORUS Routine 10/31/2018 4:10 Results for AM REHAB MANAGER this procedure are in the results section. MAGNESIUM Routine 10/31/2018 4:10 Results for AM REHAB MANAGER this procedure are in the results section. CBC W/PLT COUNT & Routine 10/31/2018 4:10 Results for AUTO DIFFERENTIAL AM REHAB MANAGER this procedure are in the results section. BASIC METABOLIC PANEL Routine 10/31/2018 4:10 Results for (7) AM REHAB MANAGER this procedure are in the results section. POCT-GLUCOSE METER Routine 10/30/2018 11:08 Results for PM REHAB MANAGER this procedure are in the results section. POCT-GLUCOSE METER Routine 10/30/2018 5:35 Results for PM REHAB MANAGER this procedure are in the results section. POCT-GLUCOSE METER Routine 10/30/2018 11:28 Results for AM REHAB MANAGER this procedure are in the results section. APTT STAT 10/30/2018 10:58 Results for AM REHAB MANAGER this procedure are in the results section. PROTHROMBIN TIME/INR STAT 10/30/2018 10:58 Results for AM REHAB MANAGER this procedure are in the results section. POCT-GLUCOSE METER Routine 10/30/2018 7:45 Results for AM REHAB MANAGER this procedure are in the results section. (CELLAVISION MANUAL Routine 10/30/2018 5:13 Results for DIFF) AM REHAB MANAGER this procedure are in the results section. CBC W/PLT COUNT & Routine 10/30/2018 5:13 Results for AUTO DIFFERENTIAL AM REHAB MANAGER this procedure are in the results section. CBC W/PLT COUNT & Routine 10/30/2018 5:13 Results for AUTO DIFFERENTIAL AM REHAB MANAGER this procedure are in the results section. BASIC METABOLIC PANEL Routine 10/30/2018 5:13 Results for (7) AM REHAB MANAGER this procedure are in the results section. POCT-GLUCOSE METER Routine 10/29/2018 9:23 Results for PM REHAB MANAGER this procedure are in the results section. POCT-GLUCOSE METER Routine 10/29/2018 4:42 Results for PM REHAB MANAGER this procedure are in the results section. POCT-GLUCOSE METER Routine 10/29/2018 12:31 Results for PM REHAB MANAGER this procedure are in the results section. POCT-GLUCOSE METER Routine 10/29/2018 9:25 Results for AM REHAB MANAGER this procedure are in the results section. HEMODIALYSIS Routine 10/29/2018 7:37 INPATIENT AM REHAB MANAGER CBC W/PLT COUNT & Routine 10/29/2018 4:49 Results for AUTO DIFFERENTIAL AM REHAB MANAGER this procedure are in the results section. HEPATITIS B SURFACE Routine 10/29/2018 4:49 Results for ANTIGEN AM REHAB MANAGER this procedure are in the results section. PTH, INTACT Routine 10/29/2018 4:49 Results for AM REHAB MANAGER this procedure are in the results section. CALCIUM, IONIZED Routine 10/29/2018 4:49 Results for AM REHAB MANAGER this procedure are in the results section. COMPREHENSIVE Routine 10/29/2018 4:49 Results for METABOLIC PANEL AM REHAB MANAGER this procedure are in the results section. PHOSPHORUS Routine 10/29/2018 4:49 Results for AM REHAB MANAGER this procedure are in the results section. MAGNESIUM Routine 10/29/2018 4:49 Results for AM REHAB MANAGER this procedure are in the results section. CBC W/PLT COUNT & Routine 10/29/2018 4:49 Results for AUTO DIFFERENTIAL AM REHAB MANAGER this procedure are in the results section. POCT-GLUCOSE METER Routine 10/28/2018 8:52 Results for PM REHAB MANAGER this procedure are in the results section. POCT-GLUCOSE METER Routine 10/28/2018 5:18 Results for PM REHAB MANAGER this procedure are in the results section. POCT-GLUCOSE METER Routine 10/28/2018 12:02 Results for PM REHAB MANAGER this procedure are in the results section. POCT-GLUCOSE METER Routine 10/28/2018 8:15 Results for AM REHAB MANAGER this procedure are in the results section. (CELLAVISION MANUAL Routine 10/28/2018 6:33 Results for DIFF) AM REHAB MANAGER this procedure are in the results section. CBC W/PLT COUNT & Routine 10/28/2018 6:33 Results for AUTO DIFFERENTIAL AM REHAB MANAGER this procedure are in the results section. CBC W/PLT COUNT & Routine 10/28/2018 6:33 Results for AUTO DIFFERENTIAL AM REHAB MANAGER this procedure are in the results section. BASIC METABOLIC PANEL Routine 10/28/2018 6:33 Results for (7) AM REHAB MANAGER this procedure are in the results section. POCT-GLUCOSE METER Routine 10/27/2018 9:25 Results for PM REHAB MANAGER this procedure are in the results section. POCT-GLUCOSE METER Routine 10/27/2018 3:59 Results for PM REHAB MANAGER this procedure are in the results section. POCT-GLUCOSE METER Routine 10/27/2018 11:26 Results for AM REHAB MANAGER this procedure are in the results section. POCT-GLUCOSE METER Routine 10/27/2018 8:18 Results for AM REHAB MANAGER this procedure are in the results section. (CELLAVISION MANUAL Routine 10/27/2018 5:56 Results for DIFF) AM REHAB MANAGER this procedure are in the results section. CBC W/PLT COUNT & Routine 10/27/2018 5:56 Results for AUTO DIFFERENTIAL AM REHAB MANAGER this procedure are in the results section. CBC W/PLT COUNT & Routine 10/27/2018 5:56 Results for AUTO DIFFERENTIAL AM REHAB MANAGER this procedure are in the results section. BASIC METABOLIC PANEL Routine 10/27/2018 5:56 Results for (7) AM REHAB MANAGER this procedure are in the results section. POCT-GLUCOSE METER Routine 10/27/2018 12:52 Results for AM REHAB MANAGER this procedure are in the results section. POCT-GLUCOSE METER Routine 10/26/2018 5:05 Results for PM REHAB MANAGER this procedure are in the results section. POCT-GLUCOSE METER Routine 10/26/2018 11:33 Results for AM REHAB MANAGER this procedure are in the results section. POCT-GLUCOSE METER Routine 10/26/2018 7:34 Results for AM REHAB MANAGER this procedure are in the results section. (CELLAVISION MANUAL Routine 10/26/2018 7:29 Results for DIFF) AM REHAB MANAGER this procedure are in the results section. CBC W/PLT COUNT & Routine 10/26/2018 7:29 Results for AUTO DIFFERENTIAL AM REHAB MANAGER this procedure are in the results section. C-REACTIVE PROTEIN Routine 10/26/2018 7:29 Results for AM REHAB MANAGER this procedure are in the results section. CBC W/PLT COUNT & Routine 10/26/2018 7:29 Results for AUTO DIFFERENTIAL AM REHAB MANAGER this procedure are in the results section. BASIC METABOLIC PANEL Routine 10/26/2018 7:29 Results for (7) AM REHAB MANAGER this procedure are in the results section. POCT-GLUCOSE METER Routine 10/25/2018 8:48 Results for PM REHAB MANAGER this procedure are in the results section. POCT-GLUCOSE METER Routine 10/25/2018 5:26 Results for PM REHAB MANAGER this procedure are in the results section. POCT-GLUCOSE METER Routine 10/25/2018 12:33 Results for PM REHAB MANAGER this procedure are in the results section. POCT-GLUCOSE METER Routine 10/25/2018 7:28 Results for AM REHAB MANAGER this procedure are in the results section. (CELLAVISION MANUAL Routine 10/25/2018 4:27 Results for DIFF) AM REHAB MANAGER this procedure are in the results section. CBC W/PLT COUNT & Routine 10/25/2018 4:27 Results for AUTO DIFFERENTIAL AM REHAB MANAGER this procedure are in the results section. CBC W/PLT COUNT & Routine 10/25/2018 4:27 Results for AUTO DIFFERENTIAL AM REHAB MANAGER this procedure are in the results section. BASIC METABOLIC PANEL Routine 10/25/2018 4:27 Results for (7) AM REHAB MANAGER this procedure are in the results section. POCT-GLUCOSE METER Routine 10/24/2018 9:12 Results for PM REHAB MANAGER this procedure are in the results section. HEMODIALYSIS Routine 10/24/2018 6:48 INPATIENT PM REHAB MANAGER POCT-GLUCOSE METER Routine 10/24/2018 11:08 Results for AM REHAB MANAGER this procedure are in the results section. BASIC METABOLIC PANEL Routine 10/24/2018 9:17 Results for (7) AM REHAB MANAGER this procedure are in the results section. POCT-GLUCOSE METER Routine 10/24/2018 7:48 Results for AM REHAB MANAGER this procedure are in the results section. CBC W/PLT COUNT & Routine 10/24/2018 4:25 Results for AUTO DIFFERENTIAL AM REHAB MANAGER this procedure are in the results section. CBC W/PLT COUNT & Routine 10/24/2018 4:25 Results for AUTO DIFFERENTIAL AM REHAB MANAGER this procedure are in the results section. POCT-GLUCOSE METER Routine 10/23/2018 8:48 Results for PM REHAB MANAGER this procedure are in the results section. POCT-GLUCOSE METER Routine 10/23/2018 4:57 Results for PM REHAB MANAGER this procedure are in the results section. POCT-GLUCOSE METER Routine 10/23/2018 10:51 Results for AM REHAB MANAGER this procedure are in the results section. (CELLAVISION MANUAL Routine 10/23/2018 9:27 Results for DIFF) AM REHAB MANAGER this procedure are in the results section. CBC W/PLT COUNT & Routine 10/23/2018 9:27 Results for AUTO DIFFERENTIAL AM REHAB MANAGER this procedure are in the results section. CBC W/PLT COUNT & Routine 10/23/2018 9:27 Results for AUTO DIFFERENTIAL AM REHAB MANAGER this procedure are in the results section. BASIC METABOLIC PANEL Routine 10/23/2018 9:27 Results for (7) AM REHAB MANAGER this procedure are in the results section. POCT-GLUCOSE METER Routine 10/23/2018 7:45 Results for AM REHAB MANAGER this procedure are in the results section. POCT-GLUCOSE METER Routine 10/22/2018 9:53 Results for PM REHAB MANAGER this procedure are in the results section. POCT-GLUCOSE METER Routine 10/22/2018 3:50 Results for PM REHAB MANAGER this procedure are in the results section. HEMODIALYSIS Routine 10/22/2018 2:05 Results for INPATIENT PM REHAB MANAGER this procedure are in the results section. (CELLAVISION MANUAL Routine 10/22/2018 10:00 Results for DIFF) AM REHAB MANAGER this procedure are in the results section. CBC W/PLT COUNT & Routine 10/22/2018 10:00 Results for AUTO DIFFERENTIAL AM REHAB MANAGER this procedure are in the results section. CREATINE KINASE (CK) Routine 10/22/2018 10:00 Results for AM REHAB MANAGER this procedure are in the results section. CBC W/PLT COUNT & Routine 10/22/2018 10:00 Results for AUTO DIFFERENTIAL AM REHAB MANAGER this procedure are in the results section. BASIC METABOLIC PANEL Routine 10/22/2018 10:00 Results for (7) AM REHAB MANAGER this procedure are in the results section. POCT-GLUCOSE METER Routine 10/22/2018 8:07 Results for AM REHAB MANAGER this procedure are in the results section. POCT-GLUCOSE METER Routine 10/21/2018 9:09 Results for PM REHAB MANAGER this procedure are in the results section. POCT-GLUCOSE METER Routine 10/21/2018 4:49 Results for PM REHAB MANAGER this procedure are in the results section. POCT-GLUCOSE METER Routine 10/21/2018 7:46 Results for AM REHAB MANAGER this procedure are in the results section. (CELLAVISION MANUAL Routine 10/21/2018 7:28 Results for DIFF) AM REHAB MANAGER this procedure are in the results section. CBC W/PLT COUNT & Routine 10/21/2018 7:28 Results for AUTO DIFFERENTIAL AM REHAB MANAGER this procedure are in the results section. CREATINE KINASE (CK) Add-On 10/21/2018 7:28 Results for AM REHAB MANAGER this procedure are in the results section. CBC W/PLT COUNT & Routine 10/21/2018 7:28 Results for AUTO DIFFERENTIAL AM REHAB MANAGER this procedure are in the results section. BASIC METABOLIC PANEL Routine 10/21/2018 7:28 Results for (7) AM REHAB MANAGER this procedure are in the results section. POCT-GLUCOSE METER Routine 10/20/2018 9:09 Results for PM REHAB MANAGER this procedure are in the results section. POCT-GLUCOSE METER Routine 10/20/2018 8:12 Results for PM REHAB MANAGER this procedure are in the results section. TRANSFUSION SERVICE 10/20/2018 6:00 REPORT - SCAN PM REHAB MANAGER POCT-GLUCOSE METER Routine 10/20/2018 5:09 Results for PM REHAB MANAGER this procedure are in the results section. POCT-GLUCOSE METER Routine 10/20/2018 11:10 Results for AM REHAB MANAGER this procedure are in the results section. SURGICALLY OBTAINED Routine 10/20/2018 9:46 Results for CULTURE + GRAM STAIN AM REHAB MANAGER this procedure are in the results section. AFB CULTURE + SMEAR Routine 10/20/2018 9:46 AM REHAB MANAGER ANAEROBIC CULTURE Routine 10/20/2018 9:46 Results for AM REHAB MANAGER this procedure are in the results section. FUNGUS CULTURE + Routine 10/20/2018 9:46 SMEAR AM REHAB MANAGER SPIN/CONCENTRATION Routine 10/20/2018 9:46 Results for CHARGE AM REHAB MANAGER this procedure are in the results section. 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 POTASSIUM STAT 10/20/2018 7:27 Results for AM REHAB MANAGER this procedure are in the results section. POCT-GLUCOSE METER Routine 10/19/2018 9:26 Results for PM REHAB MANAGER this procedure are in the results section. HEMODIALYSIS Routine 10/19/2018 8:52 Results for INPATIENT PM REHAB MANAGER this procedure are in the results section. TYPE AND SCREEN, Routine 10/19/2018 3:28 Results for AUTOMATED PM REHAB MANAGER this procedure are in the results section. CREATINE KINASE (CK) Routine 10/19/2018 3:28 Results for PM REHAB MANAGER this procedure are in the results section. COMPREHENSIVE Routine 10/19/2018 3:28 Results for METABOLIC PANEL PM REHAB MANAGER this procedure are in the results section. POCT-GLUCOSE METER Routine 10/19/2018 11:39 Results for AM REHAB MANAGER this procedure are in the results section. POCT-GLUCOSE METER Routine 10/19/2018 7:24 Results for AM REHAB MANAGER this procedure are in the results section. CBC W/PLT COUNT & Routine 10/19/2018 5:50 Results for AUTO DIFFERENTIAL AM REHAB MANAGER this procedure are in the results section. CBC W/PLT COUNT & Routine 10/19/2018 5:50 Results for AUTO DIFFERENTIAL AM REHAB MANAGER this procedure are in the results section. POCT-GLUCOSE METER Routine 10/18/2018 10:50 Results for PM REHAB MANAGER this procedure are in the results section. POCT-GLUCOSE METER Routine 10/18/2018 4:31 Results for PM REHAB MANAGER this procedure are in the results section. POCT-GLUCOSE METER Routine 10/18/2018 11:29 Results for AM REHAB MANAGER this procedure are in the results section. POCT-GLUCOSE METER Routine 10/17/2018 9:52 Results for PM REHAB MANAGER this procedure are in the results section. POCT-GLUCOSE METER Routine 10/17/2018 3:32 Results for PM REHAB MANAGER this procedure are in the results section. POCT-GLUCOSE METER Routine 10/17/2018 10:51 Results for AM REHAB MANAGER this procedure are in the results section. HEMODIALYSIS Routine 10/17/2018 10:07 Results for INPATIENT AM REHAB MANAGER this procedure are in the results section. (CELLAVISION MANUAL Routine 10/17/2018 4:36 Results for DIFF) AM REHAB MANAGER this procedure are in the results section. CBC W/PLT COUNT & Routine 10/17/2018 4:36 Results for AUTO DIFFERENTIAL AM REHAB MANAGER this procedure are in the results section. CBC W/PLT COUNT & Routine 10/17/2018 4:36 Results for AUTO DIFFERENTIAL AM REHAB MANAGER this procedure are in the results section. POCT-GLUCOSE METER Routine 10/16/2018 11:32 Results for AM REHAB MANAGER this procedure are in the results section. POCT-GLUCOSE METER Routine 10/16/2018 8:00 Results for AM REHAB MANAGER this procedure are in the results section. POCT-GLUCOSE METER Routine 10/15/2018 9:26 Results for PM REHAB MANAGER this procedure are in the results section. POCT-GLUCOSE METER Routine 10/15/2018 4:31 Results for PM REHAB MANAGER this procedure are in the results section. POCT-GLUCOSE METER Routine 10/15/2018 12:39 Results for PM REHAB MANAGER this procedure are in the results section. HEMODIALYSIS Routine 10/15/2018 12:14 Results for INPATIENT PM REHAB MANAGER this procedure are in the results section. POCT-GLUCOSE METER Routine 10/15/2018 11:00 Results for AM REHAB MANAGER this procedure are in the results section. (CELLAVISION MANUAL Routine 10/15/2018 7:27 Results for DIFF) AM REHAB MANAGER this procedure are in the results section. CBC W/PLT COUNT & Routine 10/15/2018 7:27 Results for AUTO DIFFERENTIAL AM REHAB MANAGER this procedure are in the results section. CBC W/PLT COUNT & Routine 10/15/2018 7:27 Results for AUTO DIFFERENTIAL AM REHAB MANAGER this procedure are in the results section. PHOSPHORUS Routine 10/15/2018 7:27 Results for AM REHAB MANAGER this procedure are in the results section. MAGNESIUM Routine 10/15/2018 7:27 Results for AM REHAB MANAGER this procedure are in the results section. BASIC METABOLIC PANEL Routine 10/15/2018 7:27 Results for (7) AM REHAB MANAGER this procedure are in the results section. POCT-GLUCOSE METER Routine 10/14/2018 10:24 Results for PM REHAB MANAGER this procedure are in the results section. CT SPINE LUMBAR Routine 10/14/2018 8:51 Results for WITHOUT IV CONTRAST PM REHAB MANAGER this procedure are in the results section. POCT-GLUCOSE METER Routine 10/14/2018 4:00 Results for PM REHAB MANAGER this procedure are in the results section. POCT-GLUCOSE METER Routine 10/14/2018 11:09 Results for AM REHAB MANAGER this procedure are in the results section. POCT-GLUCOSE METER Routine 10/14/2018 8:05 Results for AM REHAB MANAGER this procedure are in the results section. POCT-GLUCOSE METER Routine 10/13/2018 9:23 Results for PM REHAB MANAGER this procedure are in the results section. POCT-GLUCOSE METER Routine 10/13/2018 4:27 Results for PM REHAB MANAGER this procedure are in the results section. POCT-GLUCOSE METER Routine 10/13/2018 11:53 Results for AM REHAB MANAGER this procedure are in the results section. POCT-GLUCOSE METER Routine 10/13/2018 8:44 Results for AM REHAB MANAGER this procedure are in the results section. POCT-GLUCOSE METER Routine 10/12/2018 9:34 Results for PM REHAB MANAGER this procedure are in the results section. HEMODIALYSIS Routine 10/12/2018 3:22 INPATIENT PM REHAB MANAGER POCT-GLUCOSE METER Routine 10/12/2018 12:26 Results for PM REHAB MANAGER this procedure are in the results section. POCT-GLUCOSE METER Routine 10/12/2018 7:43 Results for AM REHAB MANAGER this procedure are in the results section. CBC W/PLT COUNT & Routine 10/12/2018 5:19 Results for AUTO DIFFERENTIAL AM REHAB MANAGER this procedure are in the results section. PHOSPHORUS Routine 10/12/2018 5:19 Results for AM REHAB MANAGER this procedure are in the results section. MAGNESIUM Routine 10/12/2018 5:19 Results for AM REHAB MANAGER this procedure are in the results section. CBC W/PLT COUNT & Routine 10/12/2018 5:19 Results for AUTO DIFFERENTIAL AM REHAB MANAGER this procedure are in the results section. BASIC METABOLIC PANEL Routine 10/12/2018 5:19 Results for (7) AM REHAB MANAGER this procedure are in the results section. POCT-GLUCOSE METER Routine 10/11/2018 10:14 Results for PM REHAB MANAGER this procedure are in the results section. POCT-GLUCOSE METER Routine 10/11/2018 4:58 Results for PM REHAB MANAGER this procedure are in the results section. POCT-GLUCOSE METER Routine 10/11/2018 11:43 Results for AM REHAB MANAGER this procedure are in the results section. POCT-GLUCOSE METER Routine 10/11/2018 7:48 Results for AM REHAB MANAGER this procedure are in the results section. (CELLAVISION MANUAL Routine 10/11/2018 4:55 Results for DIFF) AM REHAB MANAGER this procedure are in the results section. CBC W/PLT COUNT & Routine 10/11/2018 4:55 Results for AUTO DIFFERENTIAL AM REHAB MANAGER this procedure are in the results section. PHOSPHORUS Routine 10/11/2018 4:55 Results for AM REHAB MANAGER this procedure are in the results section. MAGNESIUM Routine 10/11/2018 4:55 Results for AM REHAB MANAGER this procedure are in the results section. CBC W/PLT COUNT & Routine 10/11/2018 4:55 Results for AUTO DIFFERENTIAL AM REHAB MANAGER this procedure are in the results section. BASIC METABOLIC PANEL Routine 10/11/2018 4:55 Results for (7) AM REHAB MANAGER this procedure are in the results section. POCT-GLUCOSE METER Routine 10/10/2018 9:45 Results for PM REHAB MANAGER this procedure are in the results section. TRANSFUSION SERVICE 10/10/2018 6:02 REPORT - SCAN PM REHAB MANAGER HEMODIALYSIS Routine 10/10/2018 12:36 Results for INPATIENT PM REHAB MANAGER this procedure are in the results section. (CELLAVISION MANUAL Routine 10/10/2018 5:37 Results for DIFF) AM REHAB MANAGER this procedure are in the results section. CBC W/PLT COUNT & Routine 10/10/2018 5:37 Results for AUTO DIFFERENTIAL AM REHAB MANAGER this procedure are in the results section. CBC W/PLT COUNT & Routine 10/10/2018 5:37 Results for AUTO DIFFERENTIAL AM REHAB MANAGER this procedure are in the results section. PHOSPHORUS Routine 10/10/2018 5:37 Results for AM REHAB MANAGER this procedure are in the results section. MAGNESIUM Routine 10/10/2018 5:37 Results for AM REHAB MANAGER this procedure are in the results section. COMPREHENSIVE Routine 10/10/2018 5:37 Results for METABOLIC PANEL AM REHAB MANAGER this procedure are in the results section. CALCIUM, IONIZED Routine 10/10/2018 5:37 Results for AM REHAB MANAGER this procedure are in the results section. POCT-GLUCOSE METER Routine 10/09/2018 9:34 Results for PM REHAB MANAGER this procedure are in the results section. POCT-GLUCOSE METER Routine 10/09/2018 6:18 Results for PM REHAB MANAGER this procedure are in the results section. POCT-GLUCOSE METER Routine 10/09/2018 1:11 Results for PM REHAB MANAGER this procedure are in the results section. (CELLAVISION MANUAL DEXTER 10/09/2018 12:11 Results for DIFF) PM REHAB MANAGER this procedure are in the results section. CBC W/PLT COUNT & DEXTER 10/09/2018 12:11 Results for AUTO DIFFERENTIAL PM REHAB MANAGER this procedure are in the results section. TYPE AND SCREEN, Routine 10/09/2018 12:11 Results for AUTOMATED PM REHAB MANAGER this procedure are in the results section. PT/APTT DEXTER 10/09/2018 12:11 Results for PM REHAB MANAGER this procedure are in the results section. PROTHROMBIN TIME/INR DEXTER 10/09/2018 12:11 Results for PM REHAB MANAGER this procedure are in the results section. BASIC METABOLIC PANEL DEXTER 10/09/2018 12:11 Results for (7) PM REHAB MANAGER this procedure are in the results section. CBC W/PLT COUNT & DEXTER 10/09/2018 12:11 Results for AUTO DIFFERENTIAL PM REHAB MANAGER this procedure are in the results section. XR CHEST 1 VIEW Routine 10/09/2018 11:05 Results for PORTABLE/BEDSIDE AM REHAB MANAGER this procedure are in the results section. ECG 12-LEAD Routine 10/09/2018 10:52 Results for AM REHAB MANAGER this procedure are in the results section. POCT-GLUCOSE METER Routine 10/09/2018 7:55 Results for AM REHAB MANAGER this procedure are in the results section. POCT-GLUCOSE METER Routine 10/08/2018 9:28 Results for PM REHAB MANAGER this procedure are in the results section. POCT-GLUCOSE METER Routine 10/08/2018 5:28 Results for PM REHAB MANAGER this procedure are in the results section. POCT-GLUCOSE METER Routine 10/08/2018 12:23 Results for PM REHAB MANAGER this procedure are in the results section. POCT-GLUCOSE METER Routine 10/08/2018 8:52 Results for AM REHAB MANAGER this procedure are in the results section. HEMODIALYSIS Routine 10/08/2018 8:33 Results for INPATIENT AM REHAB MANAGER this procedure are in the results section. CBC W/PLT COUNT & STAT 10/08/2018 5:04 Results for AUTO DIFFERENTIAL AM REHAB MANAGER this procedure are in the results section. PHOSPHORUS Routine 10/08/2018 5:04 Results for AM REHAB MANAGER this procedure are in the results section. MAGNESIUM Routine 10/08/2018 5:04 Results for AM REHAB MANAGER this procedure are in the results section. COMPREHENSIVE Routine 10/08/2018 5:04 Results for METABOLIC PANEL AM REHAB MANAGER this procedure are in the results section. CALCIUM, IONIZED Routine 10/08/2018 5:04 Results for AM REHAB MANAGER this procedure are in the results section. BASIC METABOLIC PANEL STAT 10/08/2018 5:04 Results for (7) AM REHAB MANAGER this procedure are in the results section. CBC W/PLT COUNT & STAT 10/08/2018 5:04 Results for AUTO DIFFERENTIAL AM REHAB MANAGER this procedure are in the results section. POCT-GLUCOSE METER Routine 10/07/2018 10:02 Results for PM REHAB MANAGER this procedure are in the results section. POCT-GLUCOSE METER Routine 10/07/2018 6:25 Results for PM REHAB MANAGER this procedure are in the results section. POCT-GLUCOSE METER Routine 10/07/2018 12:12 Results for PM REHAB MANAGER this procedure are in the results section. POCT-GLUCOSE METER Routine 10/07/2018 7:42 Results for AM REHAB MANAGER this procedure are in the results section. (CELLAVISION MANUAL STAT 10/07/2018 5:33 Results for DIFF) AM REHAB MANAGER this procedure are in the results section. CBC W/PLT COUNT & STAT 10/07/2018 5:33 Results for AUTO DIFFERENTIAL AM REHAB MANAGER this procedure are in the results section. BASIC METABOLIC PANEL STAT 10/07/2018 5:33 Results for (7) AM REHAB MANAGER this procedure are in the results section. CBC W/PLT COUNT & STAT 10/07/2018 5:33 Results for AUTO DIFFERENTIAL AM REHAB MANAGER this procedure are in the results section. POCT-GLUCOSE METER Routine 10/06/2018 8:40 Results for PM REHAB MANAGER this procedure are in the results section. POCT-GLUCOSE METER Routine 10/06/2018 5:19 Results for PM REHAB MANAGER this procedure are in the results section. CBC W/PLT COUNT & STAT 10/06/2018 5:04 Results for AUTO DIFFERENTIAL PM REHAB MANAGER this procedure are in the results section. BASIC METABOLIC PANEL STAT 10/06/2018 5:04 Results for (7) PM REHAB MANAGER this procedure are in the results section. CBC W/PLT COUNT & STAT 10/06/2018 5:04 Results for AUTO DIFFERENTIAL PM REHAB MANAGER this procedure are in the results section. POCT-GLUCOSE METER Routine 10/06/2018 12:57 Results for PM REHAB MANAGER this procedure are in the results section. POCT-GLUCOSE METER Routine 10/06/2018 8:03 Results for AM REHAB MANAGER this procedure are in the results section. VANCOMYCIN LEVEL, Timed 10/05/2018 10:28 Results for TROUGH PM REHAB MANAGER this procedure are in the results section. POCT-GLUCOSE METER Routine 10/05/2018 9:09 Results for PM REHAB MANAGER this procedure are in the results section. POCT-GLUCOSE METER Routine 10/05/2018 5:51 Results for PM REHAB MANAGER this procedure are in the results section. POCT-GLUCOSE METER Routine 10/05/2018 9:56 Results for AM REHAB MANAGER this procedure are in the results section. HEMODIALYSIS Routine 10/05/2018 9:19 INPATIENT AM REHAB MANAGER POCT-GLUCOSE METER Routine 10/05/2018 8:32 Results for AM REHAB MANAGER this procedure are in the results section. CBC W/PLT COUNT & Routine 10/05/2018 4:08 Results for AUTO DIFFERENTIAL AM REHAB MANAGER this procedure are in the results section. CBC W/PLT COUNT & Routine 10/05/2018 4:08 Results for AUTO DIFFERENTIAL AM REHAB MANAGER this procedure are in the results section. BASIC METABOLIC PANEL Routine 10/05/2018 4:08 Results for (7) AM REHAB MANAGER this procedure are in the results section. POCT-GLUCOSE METER Routine 10/04/2018 8:32 Results for PM REHAB MANAGER this procedure are in the results section. POCT-GLUCOSE METER Routine 10/04/2018 6:45 Results for PM REHAB MANAGER this procedure are in the results section. POCT-GLUCOSE METER Routine 10/04/2018 12:03 Results for PM REHAB MANAGER this procedure are in the results section. POCT-GLUCOSE METER Routine 10/04/2018 7:50 Results for AM REHAB MANAGER this procedure are in the results section. (CELLAVISION MANUAL Routine 10/04/2018 5:12 Results for DIFF) AM REHAB MANAGER this procedure are in the results section. CBC W/PLT COUNT & Routine 10/04/2018 5:12 Results for AUTO DIFFERENTIAL AM REHAB MANAGER this procedure are in the results section. MAGNESIUM Routine 10/04/2018 5:12 Results for AM REHAB MANAGER this procedure are in the results section. CBC W/PLT COUNT & Routine 10/04/2018 5:12 Results for AUTO DIFFERENTIAL AM REHAB MANAGER this procedure are in the results section. BASIC METABOLIC PANEL Routine 10/04/2018 5:12 Results for (7) AM REHAB MANAGER this procedure are in the results section. VANCOMYCIN LEVEL, Routine 10/03/2018 9:19 Results for RANDOM PM REHAB MANAGER this procedure are in the results section. POCT-GLUCOSE METER Routine 10/03/2018 9:17 Results for PM REHAB MANAGER this procedure are in the results section. HEMODIALYSIS Routine 10/03/2018 6:46 Results for INPATIENT PM REHAB MANAGER this procedure are in the results section. POCT-GLUCOSE METER Routine 10/03/2018 5:35 Results for PM REHAB MANAGER this procedure are in the results section. MAGNESIUM Routine 10/03/2018 3:20 Results for PM REHAB MANAGER this procedure are in the results section. CT SPINE LUMBAR Routine 10/03/2018 12:40 Results for WITHOUT IV CONTRAST PM REHAB MANAGER this procedure are in the results section. POCT-GLUCOSE METER Routine 10/03/2018 11:49 Results for AM REHAB MANAGER this procedure are in the results section. POCT-GLUCOSE METER Routine 10/03/2018 8:21 Results for AM REHAB MANAGER this procedure are in the results section. CBC W/PLT COUNT & Routine 10/03/2018 3:29 Results for AUTO DIFFERENTIAL AM REHAB MANAGER this procedure are in the results section. PHOSPHORUS Routine 10/03/2018 3:29 Results for AM REHAB MANAGER this procedure are in the results section. MAGNESIUM Routine 10/03/2018 3:29 Results for AM REHAB MANAGER this procedure are in the results section. COMPREHENSIVE Routine 10/03/2018 3:29 Results for METABOLIC PANEL AM REHAB MANAGER this procedure are in the results section. CALCIUM, IONIZED Routine 10/03/2018 3:29 Results for AM REHAB MANAGER this procedure are in the results section. CBC W/PLT COUNT & Routine 10/03/2018 3:29 Results for AUTO DIFFERENTIAL AM REHAB MANAGER this procedure are in the results section. POCT-GLUCOSE METER Routine 10/02/2018 10:13 Results for PM REHAB MANAGER this procedure are in the results section. POCT-GLUCOSE METER Routine 10/02/2018 6:39 Results for PM REHAB MANAGER this procedure are in the results section. POCT-GLUCOSE METER Routine 10/02/2018 1:08 Results for PM REHAB MANAGER this procedure are in the results section. (CELLAVISION MANUAL Routine 10/02/2018 3:41 Results for DIFF) AM REHAB MANAGER this procedure are in the results section. CBC W/PLT COUNT & Routine 10/02/2018 3:41 Results for AUTO DIFFERENTIAL AM REHAB MANAGER this procedure are in the results section. PHOSPHORUS Routine 10/02/2018 3:41 Results for AM REHAB MANAGER this procedure are in the results section. MAGNESIUM Routine 10/02/2018 3:41 Results for AM REHAB MANAGER this procedure are in the results section. CALCIUM, IONIZED Routine 10/02/2018 3:41 Results for AM REHAB MANAGER this procedure are in the results section. CBC W/PLT COUNT & Routine 10/02/2018 3:41 Results for AUTO DIFFERENTIAL AM REHAB MANAGER this procedure are in the results section. BASIC METABOLIC PANEL Routine 10/02/2018 3:41 Results for (7) AM REHAB MANAGER this procedure are in the results section. POCT-GLUCOSE METER Routine 10/01/2018 11:42 Results for PM REHAB MANAGER this procedure are in the results section. TRANSFUSION SERVICE 10/01/2018 6:01 REPORT - SCAN PM REHAB MANAGER POCT-GLUCOSE METER Routine 10/01/2018 5:52 Results for PM REHAB MANAGER this procedure are in the results section. XR ABDOMEN 1 VIEW STAT 10/01/2018 5:17 Results for PM REHAB MANAGER this procedure are in the results section. ECHOCARDIOGRAM REPORT 10/01/2018 1:51 - SCAN PM REHAB MANAGER POCT-GLUCOSE METER Routine 10/01/2018 12:30 Results for PM REHAB MANAGER this procedure are in the results section. BLOOD CULTURE Routine 10/01/2018 11:21 Results for AM REHAB MANAGER this procedure are in the results section. BLOOD CULTURE Routine 10/01/2018 11:21 Results for AM REHAB MANAGER this procedure are in the results section. (CELLAVISION MANUAL Routine 10/01/2018 9:50 Results for DIFF) AM REHAB MANAGER this procedure are in the results section. CBC W/PLT COUNT & Routine 10/01/2018 9:50 Results for AUTO DIFFERENTIAL AM REHAB MANAGER this procedure are in the results section. CBC W/PLT COUNT & Routine 10/01/2018 9:50 Results for AUTO DIFFERENTIAL AM REHAB MANAGER this procedure are in the results section. 2D ECHO W/ DOPPLER STAT 10/01/2018 9:17 Results for (CW/PW/COLOR) AM REHAB MANAGER this procedure are in the results section. HEMODIALYSIS Routine 10/01/2018 9:04 INPATIENT AM REHAB MANAGER XR CHEST 1 VIEW STAT 10/01/2018 8:31 Results for PORTABLE/BEDSIDE AM REHAB MANAGER this procedure are in the results section. BLOOD GAS, ARTERIAL STAT 10/01/2018 8:26 Results for AM REHAB MANAGER this procedure are in the results section. POCT-GLUCOSE METER Routine 10/01/2018 8:17 Results for AM REHAB MANAGER this procedure are in the results section. (CELLAVISION MANUAL STAT 10/01/2018 8:06 Results for DIFF) AM REHAB MANAGER this procedure are in the results section. CBC W/PLT COUNT & STAT 10/01/2018 8:06 Results for AUTO DIFFERENTIAL AM REHAB MANAGER this procedure are in the results section. BASIC METABOLIC PANEL STAT 10/01/2018 8:06 Results for (7) AM REHAB MANAGER this procedure are in the results section. CBC W/PLT COUNT & STAT 10/01/2018 8:06 Results for AUTO DIFFERENTIAL AM REHAB MANAGER this procedure are in the results section. POCT-GLUCOSE METER Routine 10/01/2018 6:50 Results for AM REHAB MANAGER this procedure are in the results section. VANCOMYCIN LEVEL, Routine 10/01/2018 6:29 Results for RANDOM AM REHAB MANAGER this procedure are in the results section. POCT-GLUCOSE METER Routine 10/01/2018 12:32 Results for AM REHAB MANAGER this procedure are in the results section. PREPARE LEUKO-REDUCED Routine 09/30/2018 11:54 Results for RBC PM REHAB MANAGER this procedure are in the results section. POCT-GLUCOSE METER Routine 09/30/2018 10:37 Results for PM REHAB MANAGER this procedure are in the results section. TRANSFUSION SERVICE 09/30/2018 6:01 REPORT - SCAN PM REHAB MANAGER POCT-GLUCOSE METER Routine 09/30/2018 5:59 Results for PM REHAB MANAGER this procedure are in the results section. BLOOD GAS, ARTERIAL STAT 09/30/2018 5:29 Results for PM REHAB MANAGER this procedure are in the results section. POCT-GLUCOSE METER Routine 09/30/2018 4:02 Results for PM REHAB MANAGER this procedure are in the results section. SPUTUM CULTURE + GRAM Routine 09/30/2018 2:36 Results for STAIN PM REHAB MANAGER this procedure are in the results section. REPORT OF PROCEDURE - 09/30/2018 2:06 ENDOSCOPY URL PM REHAB MANAGER XR CHEST 1 VIEW STAT 09/30/2018 2:06 Results for PORTABLE/BEDSIDE PM REHAB MANAGER this procedure are in the results section. XR CHEST 1 VIEW Routine 09/30/2018 11:54 Results for PORTABLE/BEDSIDE AM REHAB MANAGER this procedure are in the results section. POCT-GLUCOSE METER Routine 09/30/2018 11:34 Results for AM REHAB MANAGER this procedure are in the results section. UPPER ENDOSCOPY 09/30/2018 11:00 Gastrointestinal AM REHAB MANAGER hemorrhage, unspecified gastrointestinal hemorrhage type POCT-GLUCOSE METER Routine 09/30/2018 9:48 Results for AM REHAB MANAGER this procedure are in the results section. POCT-GLUCOSE METER Routine 09/30/2018 6:16 Results for AM REHAB MANAGER this procedure are in the results section. XR CHEST 1 VIEW Routine 09/30/2018 5:55 Results for PORTABLE/BEDSIDE AM REHAB MANAGER this procedure are in the results section. (CELLAVISION MANUAL Routine 09/30/2018 4:28 Results for DIFF) AM REHAB MANAGER this procedure are in the results section. CBC W/PLT COUNT & Routine 09/30/2018 4:28 Results for AUTO DIFFERENTIAL AM REHAB MANAGER this procedure are in the results section. CBC W/PLT COUNT & Routine 09/30/2018 4:28 Results for AUTO DIFFERENTIAL AM REHAB MANAGER this procedure are in the results section. PT/APTT Routine 09/30/2018 4:28 Results for AM REHAB MANAGER this procedure are in the results section. BASIC METABOLIC PANEL Routine 09/30/2018 4:28 Results for (7) AM REHAB MANAGER this procedure are in the results section. HEMOGLOBIN AND Routine 09/30/2018 4:28 Results for HEMATOCRIT AM REHAB MANAGER this procedure are in the results section. POCT-GLUCOSE METER Routine 09/30/2018 12:08 Results for AM REHAB MANAGER this procedure are in the results section. TRANSFUSE Routine 09/29/2018 11:29 LEUKO-REDUCED RED PM REHAB MANAGER BLOOD CELLS TRANSFUSE Routine 09/29/2018 8:56 LEUKO-REDUCED RED PM REHAB MANAGER BLOOD CELLS TRANSFUSION SERVICE 09/29/2018 6:01 REPORT - SCAN PM REHAB MANAGER POCT-GLUCOSE METER Routine 09/29/2018 5:36 Results for PM REHAB MANAGER this procedure are in the results section. HEMOGLOBIN AND Routine 09/29/2018 12:34 Results for HEMATOCRIT PM REHAB MANAGER this procedure are in the results section. BLOOD CULTURE Routine 09/29/2018 12:34 Results for PM REHAB MANAGER this procedure are in the results section. POCT-GLUCOSE METER Routine 09/29/2018 12:21 Results for PM REHAB MANAGER this procedure are in the results section. POCT-GLUCOSE METER Routine 09/29/2018 8:33 Results for AM REHAB MANAGER this procedure are in the results section. XR CHEST 1 VIEW Routine 09/29/2018 6:25 Results for PORTABLE/BEDSIDE AM REHAB MANAGER this procedure are in the results section. (CELLAVISION MANUAL Routine 09/29/2018 4:53 Results for DIFF) AM REHAB MANAGER this procedure are in the results section. CBC W/PLT COUNT & Routine 09/29/2018 4:53 Results for AUTO DIFFERENTIAL AM REHAB MANAGER this procedure are in the results section. CBC W/PLT COUNT & Routine 09/29/2018 4:53 Results for AUTO DIFFERENTIAL AM REHAB MANAGER this procedure are in the results section. BASIC METABOLIC PANEL Routine 09/29/2018 4:53 Results for (7) AM REHAB MANAGER this procedure are in the results section. HEMODIALYSIS Routine 09/29/2018 12:17 Results for INPATIENT AM REHAB MANAGER this procedure are in the results section. POCT-GLUCOSE METER Routine 09/28/2018 9:47 Results for PM REHAB MANAGER this procedure are in the results section. HEMOGLOBIN AND Routine 09/28/2018 6:39 Results for HEMATOCRIT PM REHAB MANAGER this procedure are in the results section. POCT-GLUCOSE METER Routine 09/28/2018 5:47 Results for PM REHAB MANAGER this procedure are in the results section. POCT-GLUCOSE METER Routine 09/28/2018 2:53 Results for PM REHAB MANAGER this procedure are in the results section. CALCIUM, IONIZED STAT 09/28/2018 2:36 Results for PM REHAB MANAGER this procedure are in the results section. TISSUE EXAM AP Routine 09/28/2018 1:42 Results for PM REHAB MANAGER this procedure are in the results section. CALCIUM, IONIZED STAT 09/28/2018 12:27 Results for PM REHAB MANAGER this procedure are in the results section. HGB/HCT (H&H) - STAT STAT 09/28/2018 12:15 Results for LAB PM REHAB MANAGER this procedure are in the results section. GLUCOSE-STAT LAB STAT 09/28/2018 12:15 Results for PM REHAB MANAGER this procedure are in the results section. POTASSIUM-STAT LAB STAT 09/28/2018 12:15 Results for PM REHAB MANAGER this procedure are in the results section. SODIUM NA-STAT LAB STAT 09/28/2018 12:15 Results for PM REHAB MANAGER this procedure are in the results section. BLOOD GAS, ARTERIAL STAT 09/28/2018 12:15 Results for PM REHAB MANAGER this procedure are in the results section. FL MANAGER CARDIAC IN OR 30 Routine 09/28/2018 11:50 Results for MINUTE INCREMENTS AM REHAB MANAGER this procedure are in the results section. FUNGUS CULTURE + Routine 09/28/2018 10:31 Results for SMEAR AM REHAB MANAGER this procedure are in the results section. AFB CULTURE + SMEAR Routine 09/28/2018 10:31 AM REHAB MANAGER ANAEROBIC CULTURE Routine 09/28/2018 10:31 Results for AM REHAB MANAGER this procedure are in the results section. SURGICALLY OBTAINED Routine 09/28/2018 10:31 Results for CULTURE + GRAM STAIN AM REHAB MANAGER this procedure are in the results section. SPIN/CONCENTRATION Routine 09/28/2018 10:31 Results for CHARGE AM REHAB MANAGER this procedure are in the results section. POCT-GLUCOSE METER Routine 09/28/2018 8:39 Results for AM REHAB MANAGER this procedure are in the results section. LAMINECTOMY, LUMBAR 09/28/2018 8:00 Osteomyelitis, W/INTERNAL FIXATION AM REHAB MANAGER unspecified site, unspecified type (HCC) Special Needs REQ 0800, AL TABLE, C-ARM, MEDTRONIC, PULSE LAVAGE, AQUAMANTIS, PRONE XR CHEST 1 VIEW Routine 09/28/2018 7:29 AM Results for this PORTABLE/BEDSIDE REHAB MANAGER procedure are in the results section. POCT-GLUCOSE METER Routine 09/28/2018 5:58 AM Results for this REHAB MANAGER procedure are in the results section. CBC W/PLT COUNT & AUTO STAT 09/28/2018 4:06 AM Results for this DIFFERENTIAL REHAB MANAGER procedure are in the results section. TYPE AND SCREEN, AUTOMATED Routine 09/28/2018 4:06 AM Results for this REHAB MANAGER procedure are in the results section. BASIC METABOLIC PANEL (7) STAT 09/28/2018 4:06 AM Results for this REHAB MANAGER procedure are in the results section. PT/APTT STAT 09/28/2018 4:06 AM Results for this REHAB MANAGER procedure are in the results section. PROTHROMBIN TIME/INR STAT 09/28/2018 4:06 AM Results for this REHAB MANAGER procedure are in the results section. CBC W/PLT COUNT & AUTO STAT 09/28/2018 4:06 AM Results for this DIFFERENTIAL REHAB MANAGER procedure are in the results section. VANCOMYCIN LEVEL, RANDOM Routine 09/28/2018 4:06 AM Results for this REHAB MANAGER procedure are in the results section. POCT-GLUCOSE METER Routine 09/27/2018 8:47 PM Results for this REHAB MANAGER procedure are in the results section. CT CHEST WITHOUT IV CONTRAST STAT 09/27/2018 6:58 PM Results for this REHAB MANAGER procedure are in the results section. POCT-GLUCOSE METER Routine 09/27/2018 5:39 PM Results for this REHAB MANAGER procedure are in the results section. POCT-GLUCOSE METER Routine 09/27/2018 11:33 AM Results for this REHAB MANAGER procedure are in the results section. XR CHEST 1 VIEW Routine 09/27/2018 10:21 AM Results for this PORTABLE/BEDSIDE REHAB MANAGER procedure are in the results section. PTH, INTACT Routine 09/27/2018 5:44 AM Results for this REHAB MANAGER procedure are in the results section. (CELLAVISION MANUAL DIFF) Routine 09/27/2018 4:53 AM Results for this REHAB MANAGER procedure are in the results section. CBC W/PLT COUNT & AUTO Routine 09/27/2018 4:53 AM Results for this DIFFERENTIAL REHAB MANAGER procedure are in the results section. LACTATE DEHYDROGENASE (LDH) Routine 09/27/2018 4:53 AM Results for this REHAB MANAGER procedure are in the results section. BASIC METABOLIC PANEL (7) Routine 09/27/2018 4:53 AM Results for this REHAB MANAGER procedure are in the results section. CALCIUM, IONIZED Routine 09/27/2018 4:53 AM Results for this REHAB MANAGER procedure are in the results section. CBC W/PLT COUNT & AUTO Routine 09/27/2018 4:53 AM Results for this DIFFERENTIAL REHAB MANAGER procedure are in the results section. MAGNESIUM Routine 09/27/2018 4:53 AM Results for this REHAB MANAGER procedure are in the results section. PHOSPHORUS Routine 09/27/2018 4:53 AM Results for this REHAB MANAGER procedure are in the results section. POCT-GLUCOSE METER Routine 09/26/2018 10:16 PM Results for this REHAB MANAGER procedure are in the results section. APTT Routine 09/26/2018 8:32 PM Results for this REHAB MANAGER procedure are in the results section. HEMODIALYSIS INPATIENT Routine 09/26/2018 7:59 PM Results for this REHAB MANAGER procedure are in the results section. HEPATITIS B SURFACE ANTIGEN Routine 09/26/2018 4:55 PM Results for this REHAB MANAGER procedure are in the results section. CYTOLOGY AP Routine 09/26/2018 3:54 PM Results for this REHAB MANAGER procedure are in the results section. TRIGLYCERIDES, BODY FLUID Routine 09/26/2018 3:54 PM Results for this REHAB MANAGER procedure are in the results section. PROTEIN, BODY FLUID Routine 09/26/2018 3:54 PM Results for this REHAB MANAGER procedure are in the results section. PH, BODY FLUID Routine 09/26/2018 3:54 PM Results for this REHAB MANAGER procedure are in the results section. BODY FLUID CELL COUNT WITH AP Routine 09/26/2018 3:54 PM Results for this DIFFERENTIAL REHAB MANAGER procedure are in the results section. LACTATE DEHYDROGENASE (LDH), Routine 09/26/2018 3:54 PM Results for this BODY FLUID REHAB MANAGER procedure are in the results section. BODY FLUID CULTURE + GRAM Routine 09/26/2018 3:54 PM Results for this STAIN REHAB MANAGER procedure are in the results section. CT BRAIN WITHOUT IV CONTRAST STAT 09/26/2018 2:06 PM Results for this REHAB MANAGER procedure are in the results section. CT SPINE LUMBAR WITHOUT IV Routine 09/26/2018 2:06 PM Results for this CONTRAST REHAB MANAGER procedure are in the results section. XR CHEST 1 VIEW DEXTER 09/26/2018 1:04 PM Results for this PORTABLE/BEDSIDE REHAB MANAGER procedure are in the results section. BLOOD CULTURE Routine 09/26/2018 3:14 AM Results for this REHAB MANAGER procedure are in the results section. BLOOD CULTURE Routine 09/26/2018 3:14 AM Results for this REHAB MANAGER procedure are in the results section. CBC W/PLT COUNT & AUTO Routine 09/26/2018 2:42 AM Results for this DIFFERENTIAL REHAB MANAGER procedure are in the results section. VANCOMYCIN LEVEL, RANDOM Routine 09/26/2018 2:42 AM Results for this REHAB MANAGER procedure are in the results section. LACTIC ACID, VENOUS, WHOLE Routine 09/26/2018 2:42 AM Results for this BLOOD REHAB MANAGER procedure are in the results section. C-REACTIVE PROTEIN Routine 09/26/2018 2:42 AM Results for this REHAB MANAGER procedure are in the results section. PHOSPHORUS Routine 09/26/2018 2:42 AM Results for this REHAB MANAGER procedure are in the results section. HEPATIC FUNCTION PANEL Routine 09/26/2018 2:42 AM Results for this REHAB MANAGER procedure are in the results section. PROTHROMBIN TIME/INR Routine 09/26/2018 2:42 AM Results for this REHAB MANAGER procedure are in the results section. BASIC METABOLIC PANEL (7) Routine 09/26/2018 2:42 AM Results for this REHAB MANAGER procedure are in the results section. CBC W/PLT COUNT & AUTO Routine 09/26/2018 2:42 AM Results for this DIFFERENTIAL REHAB MANAGER procedure are in the results section. POCT-GLUCOSE METER Routine 09/25/2018 8:51 PM Results for this REHAB MANAGER procedure are in the results section. after 11/06/2017 Results POC-Glucose meter (11/06/2018 1:02 PM REHAB MANAGER)Only the most recent of151 resultswithin the time period is included. POC-Glucose Meter 124 (H)Comment: TESTED AT 70 - 110 mg/dL [address] [address] Specimen Blood Performing Organization Address City/State/Zipcode Phone Number [address] [address] CENTER Manual Differential (11/06/2018 5:16 AM REHAB MANAGER)Only the most recent of28 resultswithin the time period is included. % Neutros 89 % [facility] % Lymphs 2 % [facility] % Monos 7 % [facility] % Eos 2 % [facility] # Neutros 18.33 (H) 1.78 - 5.38 K/ul [facility] # Lymphs 0.41 (L) 1.32 - 3.57 K/ul [facility] # Monos 1.44 (H) 0.30 - 0.82 K/uL [facility] # Eos 0.41 0.04 - 0.54 K/uL [facility] Total Counted 100 [facility] WBC Morphology Normal [facility] Platelet Morphology Normal [facility] Polychromasia 1+ few [facility] Anisocytosis 1+ few [facility] Poikilocytes 1+ few [facility] Artifact Present [facility] Platelet Conc Adequate [facility] Specimen Blood Narrative Performed At Received comment: [facility] User comments: Slide comments: Performing Organization Address City/State/Zipcode Phone Number [facility] [address] [place] [address] [phone] CENTER CBC with platelet count + automated diff (11/06/2018 5:16 AM REHAB MANAGER)Only the most recent of38 resultswithin the time period is included. WBC 20.6 (H) 3.5 - 10.5 K/L [facility] RBC 3.09 (L) 4.63 - 6.08 M/L [facility] Hemoglobin 8.1 (L) 13.7 - 17.5 GM/DL [facility] Hematocrit 28.0 (L) 40.1 - 51.0 % [facility] MCV 90.6 79.0 - 92.2 fL [facility] MCH 26.2 25.7 - 32.2 pg [facility] MCHC 28.9 (L) 32.3 - 36.5 GM/DL [facility] RDW 19.9 (H) 11.6 - 14.4 % [facility] Platelets 328 150 - 450 K/CU MM [facility] MPV 9.8 9.4 - 12.4 fL [facility] nRBC 0 0 - 0 /100 WBC [facility] Specimen Blood Performing Organization Address City/State/Zipcode Phone Number [facility] [address] [place] [address] [place] Basic Metabolic Panel (11/06/2018 5:16 AM REHAB MANAGER)Only the most recent of32 resultswithin the time period is included. Sodium 140 136 - 145 meq/L [facility] Potassium 4.0 3.5 - 5.1 meq/L [facility] Chloride 101 98 - 107 meq/L [facility] CO2 29 22 - 29 meq/L [facility] BUN 34 (H) 7 - 21 mg/dL [facility] Creatinine 2.69 (H) 0.57 - 1.25 mg/dL [facility] Glucose 83 70 - 105 mg/dL [facility] Calcium 9.7 8.4 - 10.2 mg/dL [facility] EGFR 24Comment: ESTIMATED GFR IS mL/min/1.73 sq m [facility] NOT ACCURATE CREATININE [facility] CLEARANCE IN PREDICTING GLOMERULAR FILTRATION RATE. ESTIMATED GFR IS NOT APPLICABLE FOR DIALYSIS PATIENTS. Specimen Blood Performing Organization Address City/[facility]/Zipcode Phone Number [facility] [address] [place], [place] [id number] [place] HEMODIALYSIS INPATIENT (11/05/2018 11:38 AM REHAB MANAGER) Narrative Performed At Joseph Ashton RN 11/05/2018 11:57 AM HD x 4 hours completed, 3L net fluid removed. Patient tolerated treatment well. Lab Results Component Value Date WBC 17.8 (H) 11/05/2018 HGB 7.8 (L) 11/05/2018 HCT 26.9 (L) 11/05/2018 MCV 89.7 11/05/2018 PLT 330 11/05/2018 Lab Results Component Value Date HEPBSAG Nonreactive 10/29/2018 ] Lab Results Component Value Date GLUCOSE 68 (L) 11/05/2018 CALCIUM 10.0 11/05/2018 NA 134 (L) 11/05/2018 K 5.2 (H) 11/05/2018 CO2 24 11/05/2018 CL 97 (L) 11/05/2018 BUN 52 (H) 11/05/2018 CREATININE 4.18 (H) 11/05/2018 Phosphorus (11/05/2018 5:07 AM REHAB MANAGER)Only the most recent of15 resultswithin the time period is included. Phosphorus 6.9 (H) 2.3 - 4.7 mg/dL [facility] Specimen Blood Performing Organization Address City/State/Zipcode Phone Number [facility] [address] [place] [phone] CENTER Magnesium (11/05/2018 5:07 AM REHAB MANAGER)Only the most recent of15 resultswithin the time period is included. Magnesium 2.3 1.6 - 2.6 mg/dL [facility] Specimen Blood Performing Organization Address City/[facility]/Zipcode Phone Number [address] [address] [place] HEMODIALYSIS INPATIENT (11/02/2018 5:04 PM REHAB MANAGER) Narrative Performed At Rosaline Rosas RN 11/02/20185:32 PM Lab Results Component Value Date WBC 20.7 (H) 11/02/2018 HGB 8.3 (L) 11/02/2018 HCT 28.3 (L) 11/02/2018 MCV 89.6 11/02/2018 PLT 379 11/02/2018 Lab Results Component Value Date GLUCOSE 97 11/02/2018 CALCIUM 10.2 11/02/2018 NA 137 11/02/2018 K 4.5 11/02/2018 CO2 25 11/02/2018 CL 100 11/02/2018 BUN 45 (H) 11/02/2018 CREATININE 4.15 (H) 11/02/2018 Results for DIRIS PARKS ( ) as of 11/02/2018 17:05 Ref. Range 10/29/2018 04:49 Hepatitis B Surface Ag Latest Ref Range: NonreactiveNonreactive HD X 4 hours completed.VSS.Net UF -3L.Rosaline Rosas RN Creatine Kinase (CK) (10/31/2018 4:10 AM REHAB MANAGER)Only the most recent of4 resultswithin the time period is included. Total CK 14 (L) 29 - 200 U/L [facility] Specimen Blood Performing Organization Address City/[facility] Phone Number [address] [address] CENTER aPTT (10/30/2018 10:58 AM REHAB MANAGER)Only the most recent of2 resultswithin the time period is included. PTT 45.8 (H) 22.5 - 36.0 seconds [facility] Specimen Blood - Arm, Left Performing Organization Address [facility] Phone Number [address] [address] [address] [phone] [place] Prothrombin time/INR (10/30/2018 10:58 AM REHAB MANAGER)Only the most recent of4 resultswithin the time period is included. Protime 14.0 11.7 - 14.7 seconds [facility] INR 1.1 <=5.9 [facility] Specimen Blood - Arm, Left Narrative Performed At RECOMMENDED COUMADIN/WARFARIN INR THERAPY [facility] RANGES STANDARD DOSE: 2.0 - 3.0 Includes: PROPHYLAXIS for venous thrombosis, systemic embolization; TREATMENT for venous thrombosis and/or pulmonary embolus. HIGH RISK: Target INR is 2.5-3.5 for patients with mechanical heart valves. Performing Organization Address City/[facility] [place] Phone Number [address] [address] CENTER Calcium, Ionized (10/29/2018 4:49 AM REHAB MANAGER)Only the most recent of8 resultswithin the time period is included. Calcium, Ion 1.26 1.12 - 1.27 mmol/L [facility] pH, Blood 7.35 [facility] Specimen Blood Performing Organization Address City/[facility] Phone Number [facility] [address] [phone] CENTER Hepatitis B surface antigen (10/29/2018 4:49 AM REHAB MANAGER)Only the most recent of2 resultswithin the time period is included. hepatitis B Surface Ag NON-REACTIVE Nonreactive [facility] Specimen Blood Performing Organization Address City/[facility] Phone Number [address] [address] [place] PTH, intact (10/29/2018 4:49 AM REHAB MANAGER)Only the most recent of2 resultswithin the time period is included. PTH 8.4 (L) 8.5 - 72.5 pg/mL [facility] Specimen Blood Performing Organization Address [facility] Phone Number [address] [address] [phone] [place] Comprehensive metabolic panel (10/29/2018 4:49 AM REHAB MANAGER)Only the most recent of5 resultswithin the time period is included. Protein, Total 7.0 6.0 - 8.3 gm/dL [facility] Albumin 2.8 (L) 3.5 - 5.0 g/dL [facility] Alkaline Phosphatase 87 40 - 150 U/L [facility] Total Bilirubin 0.5 0.2 - 1.2 mg/dL [facility] Sodium 136 136 - 145 meq/L [facility] Potassium 5.6 (H) 3.5 - 5.1 meq/L [facility] Chloride 101 98 - 107 meq/L [facility] CO2 23 22 - 29 meq/L [facility] BUN 65 (H) 7 - 21 mg/dL [facility] Creatinine 4.74 (H) 0.57 - 1.25 mg/dL [facility] Glucose 89 70 - 105 mg/dL [facility] Calcium 10.3 (H) 8.4 - 10.2 mg/dL [facility] AST 9 5 - 34 U/L [facility] ALT <6 (L) 6 - 55 U/L [facility] EGFR 13Comment: ESTIMATED GFR mL/min/1.[address] [facility] IS NOT ACCURATE [facility] CREATININE CLEARANCE IN PREDICTING GLOMERULAR FILTRATION RATE. ESTIMATED GFR IS NOT APPLICABLE FOR DIALYSIS PATIENTS. Specimen Blood Performing Organization Address City/[facility] Phone Number [address] [address] CENTER C-Reactive Protein (10/26/2018 7:29 AM REHAB MANAGER)Only the most recent of2 resultswithin the time period is included. CRP 11.00 (H) 0.00 - 0.50 mg/dL [facility] Specimen Blood Performing Organization Address City/[facility] Phone Number [address] [address] CENTER HEMODIALYSIS INPATIENT (10/22/2018 2:05 PM REHAB MANAGER) Narrative Performed At Tricia Moreno RN 10/22/20182:06 PM 4 hours HD completed. Net UF of 3 L. Pt tolerated tx well. Reports given to primary stratigrapher Results Component Value Date GLUCOSE 95 10/22/2018 CALCIUM 10.8 (H) 10/22/2018 NA 136 10/22/2018 K 5.2 (H) 10/22/2018 CO2 25 10/22/2018 CL 99 10/22/2018 BUN 50 (H) 10/22/2018 CREATININE 4.42 (H) 10/22/2018 Lab Results Component Value Date WBC 26.2 (H) 10/22/2018 HGB 8.2 (L) 10/22/2018 HCT 27.9 (L) 10/22/2018 MCV 87.5 10/22/2018 PLT 317 10/22/2018 Lab Results Component Value Date HEPBSAG Nonreactive 09/26/2018 Lab Results Component Value Date HEPBSAB 57.8 (H) 04/07/2016 No Known Allergies No chief complaint on file. 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 Paraplegic spinal paralysis ([facility]) 12/26/2016 Sacral decubitus ulcer 12/26/2016 ESRD on hemodialysis ([facility]) 12/26/2016 Resolved Ambulatory Problems Diagnosis Date Noted No Resolved Ambulatory Problems Past Medical History: Diagnosis Date Anemia Arthritis Asthma Bipolar disorder ([facility]) CHF (congestive heart failure) ([facility]) COPD (chronic obstructive pulmonary disease) ([facility]) Coronary artery disease Dementia Depression, major Diabetes mellitus ([facility]) End stage renal disease ([facility]) GERD (gastroesophageal reflux disease) High cholesterol Hypertension Insomnia MRSA (methicillin resistant Staphylococcus aureus) Restless leg syndrome Schizophrenia ([facility]) Past Surgical History: Procedure Laterality Date ABDOMINAL SURGERY Tricia Moreno RN TRANSFUSION SERVICE REPORT - SCAN (10/20/2018 6:00 PM REHAB MANAGER)Only the most recent of5 resultswithin the time period is included. Narrative Performed At Anaerobic culture (10/20/2018 9:46 AM REHAB MANAGER)Only the most recent of2 resultswithin the time period is included. Result No anaerobes isolated [facility] Specimen Wound - Back,Lower Performing Organization Address City/State/Zipcode Phone Number [facility] [address] [place] [address] CENTER Surgically obtained culture + gram stain (10/20/2018 9:46 AM REHAB MANAGER)Only the most recent of2 resultswithin the time period is included. Result No growth [facility] Gram Stain Result No white blood cells seen [facility] Gram Stain Result No organisms seen [facility] Specimen Wound - Back,Lower Performing Organization Address City/State/Zipcode Phone Number [facility] [address] [address] [phone] CENTER SPIN/CONCENTRATION CHARGE (10/20/2018 9:46 AM REHAB MANAGER)Only the most recent of2 resultswithin the time period is included. Concentration charged Done [facility] Specimen Wound - Back,Lower Performing Organization Address City/[facility]/Zipcode Phone Number [address] [address] [phone] CENTER Potassium (10/20/2018 7:27 AM REHAB MANAGER) Potassium 3.6 3.5 - 5.1 meq/L [facility] Specimen Blood - Arm, Right Performing Organization Address [facility]/Zipcode Phone Number [address] [phone] [place] HEMODIALYSIS INPATIENT (10/19/2018 8:52 PM REHAB MANAGER) Narrative Performed At [place] RN 10/19/20188:52 PM Completed hd x4 hrs via right IJ tunneled catheter. With complaint of nausea during hd, saline bolus given and decreased UF goal - relieved. Tolerated hd with net UF of 2000 ml today. Report given to LIZABETH Faye. Lab Results Component Value Date GLUCOSE 142 (H) 10/19/2018 CALCIUM 9.5 10/19/2018 NA 139 10/19/2018 K 4.7 10/19/2018 CO2 26 10/19/2018 CL 102 10/19/2018 BUN 49 (H) 10/19/2018 CREATININE 4.36 (H) 10/19/2018 MG 2.1 10/15/2018 PHOS 6.3 (H) 10/15/2018 Lab Results Component Value Date WBC 20.2 (H) 10/19/2018 HGB 8.4 (L) 10/19/2018 HCT 28.2 (L) 10/19/2018 MCV 86.2 10/19/2018 PLT 310 10/19/2018 Lab Results Component Value Date HEPBSAG Nonreactive 09/26/2018 Type and screen, automated (10/19/2018 3:28 PM REHAB MANAGER)Only the most recent of3 resultswithin the time period is included. ABO/RH AUTOMATED (BEAKER) O POSITIVE [facility] Ab Scrn NEGATIVE [facility] Specimen Blood - Central Venous Line Performing Organization Address City/State/Zipcode Phone Number [facility] [address] [place] [address] [phone] HEMODIALYSIS INPATIENT (10/17/2018 10:07 AM REHAB MANAGER) Narrative Performed At Rosaline Rosas RN 10/17/2018 12:16 PM Lab Results Component Value Date WBC 29.9 (H) 10/17/2018 HGB 9.0 (L) 10/17/2018 HCT 30.5 (L) 10/17/2018 MCV 86.4 10/17/2018 PLT 381 10/17/2018 Lab Results Component Value Date GLUCOSE 99 10/15/2018 CALCIUM 9.4 10/15/2018 NA 135 (L) 10/15/2018 K 5.7 (H) 10/15/2018 CO2 22 10/15/2018 CL 103 10/15/2018 BUN 60 (H) 10/15/2018 CREATININE 4.61 (H) 10/15/2018 Results for IDRIS PARKS ( ) as of 10/17/2018 09:28 Ref. Range 09/26/2018 16:55 Hepatitis B Surface Ag Latest Ref Range: NonreactiveNonreactive HD completed x 4 hours.Net UF -2.5L.VSS. Rosaline Rosas RN HEMODIALYSIS INPATIENT (10/15/2018 12:14 PM REHAB MANAGER) Narrative Performed At Kris Radford RN 10/15/2018 12:15 PM Lab Results Component Value Date WBC 29.6 (H) 10/15/2018 HGB 7.7 (L) 10/15/2018 HCT 25.9 (L) 10/15/2018 MCV 86.6 10/15/2018 PLT 337 10/15/2018 Lab Results Component Value Date GLUCOSE 99 10/15/2018 CALCIUM 9.4 10/15/2018 NA 135 (L) 10/15/2018 K 5.7 (H) 10/15/2018 CO2 22 10/15/2018 CL 103 10/15/2018 BUN 60 (H) 10/15/2018 CREATININE 4.61 (H) 10/15/2018 Lab Results Component Value Date HEPBSAG Nonreactive 09/26/2018 Vitals: 10/15/18 1135 BP: 154/72 Pulse: 69 Resp: 18 Temp: 98.4 F (36.9 C) SpO2: 97% HD x 4hrs. UF net 2.5L. Treatment tolerated well. Pt awake and alert, not in distress. CT spine lumbar without IV contrast (10/14/2018 8:51 PM REHAB MANAGER)Only the most recent of3 resultswithin the time period is included. Narrative Performed At FINAL REPORT Estately CT lumbar spine without contrast 10/14/2018 8:59 PM CLINICAL INDICATION: Low back pain, <6wks, no red flags, no prior management COMPARISON: 10/03/2018 TECHNIQUE: Multiple axial noncontrast CT images of the lumbar spine were obtained in bone and soft tissue windows. Axially acquired data were reformatted in sagittal and coronal planes for further analysis. This examination was performed according to our departmental dose optimization program, which includes automated exposure control, adjustment of the mA and/or kV according to patient size, and/or use of iterated reconstruction technique. FINDINGS: As before, the patient is status post posterior lumbosacral fusion. There is no hardware malalignment. There is unchanged lucency about the bilateral L3, L4, and sacroiliac screws, suggesting loosening. There is no periprosthetic fracture. Chronic fracture deformity at the lumbosacral junction is unchanged, with resultant severe bilateral L5-S1 foraminal stenosis. Disorganized fluid remains evident in the overlying paraspinal musculature and subcutaneous tissue. No organized collection is evident, although plaque of contrast limits evaluation. There is an indwelling drainage catheter. There is no acute-appearing fracture or malalignment. There are chronic appearing wedge deformities in the T11, T12, and superior L2 vertebral bodies. The skeleton is osteopenic. There are no osteolytic or osteoblastic lesions. There are small volume right pleural effusions. Opacity in the left lung base may reflect atelectasis or pneumonia. There is a small hiatal hernia. There is relatively extensive arteriosclerosis. There is deconditioning of the posterior paraspinal musculature. 1. Since 10/03/2018, no remarkable change in postoperative appearance. 2. Small volume left pleural effusion with adjacent atelectasis and/or pneumonia. Signed: Avi Lara MD Report Verified Date/Time:10/14/2018 21:05:37 Reading Location: [facility] Radiology Reading Room Procedure Note Interface, External Ris In - 10/14/2018 9:07 PM REHAB MANAGER FINAL REPORT CT lumbar spine without contrast 10/14/2018 8:59 PM CLINICAL INDICATION: Low back pain, <6wks, no red flags, no prior management COMPARISON: 10/03/2018 TECHNIQUE: Multiple axial noncontrast CT images of the lumbar spine were obtained in bone and soft tissue windows. Axially acquired data were reformatted in sagittal and coronal planes for further analysis. This examination was performed according to our departmental dose optimization program, which includes automated exposure control, adjustment of the mA and/or kV according to patient size, and/or use of iterated reconstruction technique. FINDINGS: As before, the patient is status post posterior lumbosacral fusion. There is no hardware malalignment. There is unchanged lucency about the bilateral L3, L4, and sacroiliac screws, suggesting loosening. There is no periprosthetic fracture. Chronic fracture deformity at the lumbosacral junction is unchanged, with resultant severe bilateral L5-S1 foraminal stenosis. Disorganized fluid remains evident in the overlying paraspinal musculature and subcutaneous tissue. No organized collection is evident, although plaque of contrast limits evaluation. There is an indwelling drainage catheter. There is no acute-appearing fracture or malalignment. There are chronic appearing wedge deformities in the T11, T12, and superior L2 vertebral bodies. The skeleton is osteopenic. There are no osteolytic or osteoblastic lesions. There are small volume right pleural effusions. Opacity in the left lung base may reflect atelectasis or pneumonia. There is a small hiatal hernia. There is relatively extensive arteriosclerosis. There is deconditioning of the posterior paraspinal musculature. 1. Since 10/03/2018, no remarkable change in postoperative appearance. 2. Small volume left pleural effusion with adjacent atelectasis and/or pneumonia. Signed: Avi Lara MD Report Verified Date/Time: 10/14/2018 21:05:37 Reading Location: [facility] Radiology Reading Room Performing Organization Address City/State/Zipcode Phone Number [facility] HEMODIALYSIS INPATIENT (10/10/2018 12:36 PM REHAB MANAGER) Narrative Performed At Tricia Moreno RN 10/10/2018 12:36 PM 4 hours HD completed. Net UF of 2.5 L. Pt tolerated tx well. Reports given to primary RN. Lab Results Component Value Date GLUCOSE 100 10/10/2018 CALCIUM 9.7 10/10/2018 NA 134 (L) 10/10/2018 K 5.0 10/10/2018 CO2 24 10/10/2018 CL 98 10/10/2018 BUN 45 (H) 10/10/2018 CREATININE 4.11 (H) 10/10/2018 Lab Results Component Value Date WBC 21.3 (H) 10/10/2018 HGB 8.7 (L) 10/10/2018 HCT 28.9 (L) 10/10/2018 MCV 85.0 10/10/2018 PLT 291 10/10/2018 Lab Results Component Value Date HEPBSAG Nonreactive 09/26/2018 Lab Results Component Value Date HEPBSAB 57.8 (H) 04/07/2016 No Known Allergies No chief complaint on file. 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 Paraplegic spinal paralysis ([facility]) 12/26/2016 Sacral decubitus ulcer 12/26/2016 ESRD on hemodialysis ([facility]) 12/26/2016 Resolved Ambulatory Problems Diagnosis Date Noted No Resolved Ambulatory Problems Past Medical History: Diagnosis Date Anemia Arthritis Asthma Bipolar disorder ([facility]) CHF (congestive heart failure) ([facility]) COPD (chronic obstructive pulmonary disease) ([facility]) Coronary artery disease Dementia Depression, major Diabetes mellitus ([facility]) End stage renal disease ([facility]) GERD (gastroesophageal reflux disease) High cholesterol Hypertension Insomnia MRSA (methicillin resistant Staphylococcus aureus) Restless leg syndrome Schizophrenia ([facility]) Past Surgical History: Procedure Laterality Date ABDOMINAL SURGERY Tricia Moreno RN PT/aPTT (10/09/2018 12:11 PM REHAB MANAGER)Only the most recent of3 resultswithin the time period is included. Protime 13.4 11.7 - 14.7 seconds [facility] INR 1.0 <=5.9 [facility] PTT 36.8 (H) 22.5 - 36.0 seconds [facility] Specimen Blood Narrative Performed At RECOMMENDED COUMADIN/WARFARIN INR THERAPY [facility] RANGES STANDARD DOSE: 2.0 - 3.0 Includes: PROPHYLAXIS for venous thrombosis, systemic embolization; TREATMENT for venous thrombosis and/or pulmonary embolus. HIGH RISK: Target INR is 2.5-3.5 for patients with mechanical heart valves. Performing Organization Address City/State/Zipcode Phone Number [facility] [address] [place] [address] [phone] CENTER XR chest 1 view portable / bedside (10/09/2018 11:05 AM REHAB MANAGER)Only the most recent of9 resultswithin the time period is included. Narrative Performed At FINAL REPORT GE RIS Portable chest. Clinical history: Preoperative. Comparison study: October 01, 2018. FINDINGS: The cardiac size is enlarged. There is pulmonary venous congestion and airspace opacities with a right-sided central line identified. Blunting of the left costophrenic angle is seen. No pneumothorax is noted. Degenerative changes are seen. IMPRESSION: Findings consistent with CHF. In the right clinical setting, a superimposed infection would be difficult to exclude. Clinical correlation and short term imaging follow-up could be made to exclude other etiologies. Signed: Vincent Stroud MD Report Verified Date/Time:10/09/2018 11:30:43 Reading Location: [facility] Radiology Reading Room Procedure Note Interface, External Ris In - 10/09/2018 11:32 AM REHAB MANAGER FINAL REPORT Portable chest. Clinical history: Preoperative. Comparison study: October 01, 2018. FINDINGS: The cardiac size is enlarged. There is pulmonary venous congestion and airspace opacities with a right-sided central line identified. Blunting of the left costophrenic angle is seen. No pneumothorax is noted. Degenerative changes are seen. IMPRESSION: Findings consistent with CHF. In the right clinical setting, a superimposed infection would be difficult to exclude. Clinical correlation and short term imaging follow-up could be made to exclude other etiologies. Signed: Vincent Stroud MD Report Verified Date/Time: 10/09/2018 11:30:43 Reading Location: [facility] Radiology Reading Room Performing Organization Address City/State/[facility] Phone Number Estately ECG 12 lead (10/09/2018 10:52 AM REHAB MANAGER) Narrative Performed At Ventricular Rate 63 BPM GE MUSE Atrial Rate 63 BPM P-R Interval 170 ms QRS Duration 126 ms Q-T Interval 474 ms QTC Calculation(Bazett) 485 ms P [place] 56 degrees R [place] 58 degrees T [place] 33 degrees Normal sinus rhythm Non-specific intra-ventricular conduction block Inferior infarct , age undetermined Abnormal ECG When compared with ECG of 12-JAN-1999 15:05, QRS duration has increased QT has lengthened Confirmed by Neeraj Chairez ([id number]) on 10/10/2018 3:49:43 PM Procedure Note Interface, External Ris In - 10/10/2018 3:49 PM REHAB MANAGER Ventricular Rate 63 BPM Atrial Rate 63 BPM P-R Interval 170 ms QRS Duration 126 ms Q-T Interval 474 ms QTC Calculation(Bazett) 485 ms P [place] 56 degrees R [place] 58 degrees T [place] 33 degrees Normal sinus rhythm Non-specific intra-ventricular conduction block Inferior infarct , age undetermined Abnormal ECG When compared with ECG of 12-JAN-1999 15:05, QRS duration has increased QT has lengthened Confirmed by Neeraj Chairez ([id number]) on 10/10/2018 3:49:43 PM Performing Organization Address City/State/[facility] Phone Number [facility] MUSE HEMODIALYSIS INPATIENT (10/08/2018 8:33 AM REHAB MANAGER) Narrative Performed At Rosaline Rosas RN 10/08/2018 11:55 AM Lab Results Component Value Date WBC 24.3 (H) 10/08/2018 HGB 9.8 (L) 10/08/2018 HCT 32.5 (L) 10/08/2018 MCV 84.2 10/08/2018 PLT 322 10/08/2018 Lab Results Component Value Date GLUCOSE 117 (H) 10/08/2018 GLUCOSE 117 (H) 10/08/2018 CALCIUM 9.3 10/08/2018 CALCIUM 9.3 10/08/2018 NA 134 (L) 10/08/2018 NA 134 (L) 10/08/2018 K 4.0 10/08/2018 K 4.0 10/08/2018 CO2 24 10/08/2018 CO2 24 10/08/2018 CL 98 10/08/2018 CL 98 10/08/2018 BUN 42 (H) 10/08/2018 BUN 42 (H) 10/08/2018 CREATININE 5.10 (H) 10/08/2018 CREATININE 5.10 (H) 10/08/2018 Results for IDRIS PARKS ( ) as of 10/08/2018 08:32 Ref. Range 09/26/2018 16:55 Hepatitis B Surface Ag Latest Ref Range: NonreactiveNonreactive HD X 4 hours completed.Net UF -3L.VSS. Rosaline Rosas RN Vancomycin level, trough (10/05/2018 10:28 PM REHAB MANAGER) Vancomycin Tr 21.4 (H) 10.0 - 20.0 ug/mL [facility] Specimen Blood - Arm, Left Performing Organization Address City/State/Zipcode Phone Number [address] [address] CENTER Vancomycin level, random (10/03/2018 9:19 PM REHAB MANAGER)Only the most recent of4 resultswithin the time period is included. Vancomycin Rm 21.7 ug/mL [facility] Specimen Blood Narrative Performed At Reference Range: No Normals [facility] Hold dose if level is >20 mcg/mL and contact physician. Performing Organization Address City/State/Zipcode Phone Number [address] [address] CENTER HEMODIALYSIS INPATIENT (10/03/2018 6:46 PM REHAB MANAGER) Narrative Performed At Kris Radford RN 10/03/20186:46 PM HD x 4 hrs. UF net 2L. Ttreatment tolerated well pt awake and alert, not in distress. Lab Results Component Value Date WBC 36.0 (H) 10/03/2018 HGB 8.0 (L) 10/03/2018 HCT 26.9 (L) 10/03/2018 MCV 87.3 10/03/2018 PLT 227 10/03/2018 Lab Results Component Value Date GLUCOSE 98 10/03/2018 CALCIUM 8.7 10/03/2018 NA 139 10/03/2018 K 3.6 10/03/2018 CO2 25 10/03/2018 CL 102 10/03/2018 BUN 32 (H) 10/03/2018 CREATININE 4.64 (H) 10/03/2018 Lab Results Component Value Date HEPBSAG Nonreactive 09/26/2018 Vitals: 10/03/18 1830 BP: Pulse: 65 Resp: 13 Temp: 98.2 F (36.8 C) SpO2: 100% XR abdomen / KUB 1 view (10/01/2018 5:17 PM REHAB MANAGER) Narrative Performed At FINAL REPORT [facility] EXAM: AP abdominal radiograph HISTORY PROVIDED: Nasogastric tube placement COMPARISON: None available IMPRESSION: The tip of a nasogastric tube projects over the expected location of the stomach. The visualized bowel gas pattern is nonspecific but appears nonobstructive. A moderate amount of stool is seen within the colon. While no definite free air is seen, this examination is insensitive for the detection of free air. Postsurgical changes with fusion hardware are seen in the lower lumbar spine. Degenerative changes are noted. No acute osseous abnormality. Midline surgical kaur are noted. Signed: Rob Hernandez MD Report Verified Date/Time:10/01/2018 17:28:51 Reading Location: [facility] Women Procedure Note Interface, External Ris In - 10/01/2018 5:31 PM REHAB MANAGER FINAL REPORT EXAM: AP abdominal radiograph HISTORY PROVIDED: Nasogastric tube placement COMPARISON: None available IMPRESSION: The tip of a nasogastric tube projects over the expected location of the stomach. The visualized bowel gas pattern is nonspecific but appears nonobstructive. A moderate amount of stool is seen within the colon. While no definite free air is seen, this examination is insensitive for the detection of free air. Postsurgical changes with fusion hardware are seen in the lower lumbar spine. Degenerative changes are noted. No acute osseous abnormality. Midline surgical kuar are noted. Signed: Rob Hernandez MD Report Verified Date/Time: 10/01/2018 17:28:51 Reading Location: [facility] Reva Performing Organization Address City/State/Zipcode Phone Number Estately ECHOCARDIOGRAM REPORT - SCAN (10/01/2018 1:51 PM REHAB MANAGER) Narrative Performed At Blood culture (10/01/2018 11:21 AM REHAB MANAGER)Only the most recent of5 resultswithin the time period is included. Result No growth in 5 days [facility] Specimen Blood - Line, Arterial Performing Organization Address City/State/[place] [address] [phone] CENTER 2D Echo W/Doppler(CW/PW/Color) (10/01/2018 9:17 AM REHAB MANAGER) Ejection Fraction [facility] Narrative Performed At Transthoracic Echocardiography Report (TTE) [facility] [employer] [facility] Demographics Patient NameMushtaq PARKS of Study10/01/2018 Alex Gender Male Visit [id number] Race Unknown [id number] Number Date of 1960 Referring PhysicianAdityaciaristeo Saab Age 58 year(s) SonographerGuy Caldwell Licensed Home Inspector Luis Henao MD Physician Procedure Type of Study TTE procedure:2DECHO W DOPPLER(CW/PW/COLOR) (STAT) Indications:Endocarditis. Clinical History HGB 8.7 HCT 28.7 % ANEMIA CHF COPD DM HTN MRSA ABDOMINAL SURGERT Height: 67 inches Weight: 82.55 kg (182 lbs) BSA: 1.94 m^2 BMI: 28.5 kg/m^2 HR: 71 bpm BP: 131/46 mmHg Summary 1. The left ventricle is chamber size (by PSLAX dimension) is mildly enlarged (male - LVIDd 5.9-6.3cm) .Mild concentric LVH. The following segment(s) appear severely hypokinetic: basal to mid inferior . The other segments contract normally. Estimated LVEF by qualitative assessment is lower limits of normal (50-55%) . Grade 1 diastolic dysfunction (impaired relaxation and low-normal LA pressure). 2. Normal right ventricle structure and function. 3. LA size is moderately enlarged . Normal right atrium. 4. Trileaflet aortic valve. Moderate AoV cusp thickening and calcification. Restricted motion of the non coronary leaflet noted. Based on doppler evaluation, suggestion of mild aortic stenosis. 5. A trace of tricuspid regurgitation. Unable to estimate peak systolic PA pressure; inadequate TR velocity signal. The estimated RA pressure by IVC dynamics 0-5 mmHg . Previous Study Compared to the prior study dated 12/01/2016, no significant changes noted. Within the limitations of a TTE study, no significant valvular lesions noted to suggest presence of endocarditis. If the clinical suspicion is high, please consider further evaluation with a GEORGINA. Signature Findings Technical Quality: Technically adequate exam. Left Ventricle The left ventricle is chamber size (by PSLAX di mension) is mildly enlarged (male - LVIDd 5. 9-6.3cm) .Mild concentric LVH. The following se gment(s) appear severely hypokinetic: basal to mi d inferior . The other segments contract no rmally. Estimated LVEF by qualitative assessment is lower limits of normal (50-55%) . Grade 1 di astolic dysfunction (impaired relaxation and lo w-normal LA pressure). Left AtriumLA size is moderately enlarged . Right VentricleNormal right ventricle structure and function. Right Atrium Normal right atrium. Aortic Valve Trileaflet aortic valve. Moderate AoV cusp th ickening and calcification. Restricted motion of th e non coronary leaflet noted. Based on doppler ev aluation, suggestion of mild aortic stenosis. Mi ld aortic stenosis. Mitral Valve Moderate mitral annular calcification. Tr taylor mitral regurgitation. Tricuspid ValveA trace of tricuspid regurgitation. Un able to estimate peak systolic PA pressure; in adequate TR velocity signal. Pulmonic Valve Normal PV structure and function by limited views an d Doppler. AortaAortic root size (SInus of Valsalva diameter) is no rmal . Pr oximal ascending aorta size is normal . PericardiumNo evidence of pericardial effusion. IVC/SVC/PA/PV/PleuralThe estimated RA pressure by IVC dynamics 0-5 mmHg . Chambers/Structures Left Atrium LA Volume: 87 ml LA Area: 23.09 cm^2 LA Vol. Index: 45 ml/m^2 Left Ventricle LVIDd: 6.18 cm LVEDV:192.34 ml LV Septum Diastolic: 1.3 cm LVEF 2D Cube: 52.1 % LV PW Diastolic: 1.1 cm LVEDV Abbasi's:171 mlLV Length: 9.69 cm LVESV Abbasi's:85 ml LVEF Abbasi's: 50 %L VEDVI: 88 ml/m^2 LVESVI: 44 ml/m^2 LVOT Diameter: 2.4 cm Right Ventricle TAPSE: 2.1 cm Aorta Ao Root S of Eunice.: 3.4 cm Ascending Aorta: 3.5 cm Doppler/Quantitative Measurements Mitral Valve MV Peak E-Wave: 0.75 m/sMV Peak A-Wave: 0.83 m/s E/A Ratio: 0.91 Peak Gradient: 2.25 mmHg Deceleration Time: 188.9 msec MV Migue. Peak: Tissue Doppler E' Septal Velocity: 0.07 m/sE/E': 9 E' Lateral Velocity: 0.09 m/s Aortic Valve Peak Velocity: 2.18 m/sMean Velocity: 1.49 m/s Peak Gradient: 19.04 mmHgMean Gradient: 10.26 mmHg AV Area (continuity): 1.92 cm^2 AV VTI: 39.65 cm AV DVI: 0.42 LVOT Peak Velocity: 1.07 m/s Peak Gradient: 4.56 mmHg Mean Velocity: 0.6 m/sMean Gradient: 1.81 mmHg LVOT Diameter: 2.4 cm LVOT VTI: 16.8 cm LVOT Area: 4.52 cm^2LVOT SV:75.96 ml LVOT CO: 5.39 l/min LVOT CI: 2.78 l/min/m^2 Procedure Note Interface, External Ris In - 10/01/2018 1:24 PM REHAB MANAGER Transthoracic Echocardiography Report (TTE) Demographics Patient Name IDRIS PARKS Date of Study 10/01/2018 Alex Gender Male Visit Number [id number] Race Unknown Room Number 7408 Number Date of 1960 Referring Physician Francia Saab Age 58 year(s) Extension 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 Clinical History HGB 8.7 HCT 28.7 % ANEMIA CHF COPD DM HTN MRSA ABDOMINAL SURGERT Height: 67 inches Weight: 82.55 kg (182 lbs) BSA: 1.94 m^2 BMI: 28.5 kg/m^2 HR: 71 bpm BP: 131/46 mmHg Summary 1. The left ventricle is chamber size (by PSLAX dimension) is mildly enlarged (male - LVIDd 5.9-6.3cm) .Mild concentric LVH. The following segment(s) appear severely hypokinetic: basal to mid inferior . The other segments contract normally. Estimated LVEF by qualitative assessment is lower limits of normal (50-55%) . Grade 1 diastolic dysfunction (impaired relaxation and low-normal LA pressure). 2. Normal right ventricle structure and function. 3. LA size is moderately enlarged . Normal right atrium. 4. Trileaflet aortic valve. Moderate AoV cusp thickening and calcification. Restricted motion of the non coronary leaflet noted. Based on doppler evaluation, suggestion of mild aortic stenosis. 5. A trace of tricuspid regurgitation. Unable to estimate peak systolic PA pressure; inadequate TR velocity signal. The estimated RA pressure by IVC dynamics 0-5 mmHg . Previous Study Compared to the prior study dated 12/01/2016, no significant changes noted. Within the limitations of a TTE study, no significant valvular lesions noted to suggest presence of endocarditis. If the clinical suspicion is high, please consider further evaluation with a GEORGINA. Signature Findings Technical Quality: Technically adequate exam. Left Ventricle The left ventricle is chamber size (by PSLAX dimension) is mildly enlarged (male - LVIDd 5.9-6.3cm) .Mild concentric LVH. The following segment(s) appear severely hypokinetic: basal to mid inferior . The other segments contract normally. Estimated LVEF by qualitative assessment is lower limits of normal (50-55%) . Grade 1 diastolic dysfunction (impaired relaxation and low-normal LA pressure). Left Atrium LA size is moderately enlarged . Right Ventricle Normal right ventricle structure and function. Right Atrium Normal right atrium. Aortic Valve Trileaflet aortic valve. Moderate AoV cusp thickening and calcification. Restricted motion of the non coronary leaflet noted. Based on doppler evaluation, suggestion of mild aortic stenosis. Mild aortic stenosis. Mitral Valve Moderate mitral annular calcification. Trace mitral regurgitation. Tricuspid Valve A trace of tricuspid regurgitation. Unable to estimate peak systolic PA pressure; inadequate TR velocity signal. Pulmonic Valve Normal PV structure and function by limited views and Doppler. Aorta Aortic root size (SInus of Valsalva diameter) is normal . Proximal ascending aorta size is normal . Pericardium No evidence of pericardial effusion. IVC/SVC/PA/PV/Pleural The estimated RA pressure by IVC dynamics 0-5 mmHg . Chambers/Structures Left Atrium LA Volume: 87 ml LA Area: 23.09 cm^2 LA Vol. Index: 45 ml/m^2 Left Ventricle LVIDd: 6.18 cm LVEDV:192.34 ml LV Septum Diastolic: 1.3 cm LVEF 2D Cube: 52.1 % LV PW Diastolic: 1.1 cm LVEDV Abbasi's:171 ml LV Length: 9.69 cm LVESV Abbasi's:85 ml LVEF Abbasi's: 50 % LVEDVI: 88 ml/m^2 LVESVI: 44 ml/m^2 LVOT Diameter: 2.4 cm Right Ventricle TAPSE: 2.1 cm Aorta Ao Root S of Eunice.: 3.4 cm Ascending Aorta: 3.5 cm Doppler/Quantitative Measurements Mitral Valve MV Peak E-Wave: 0.75 m/s MV Peak A-Wave: 0.83 m/s E/A Ratio: 0.91 Peak Gradient: 2.25 mmHg Deceleration Time: 188.9 msec MV Migue. Peak: Tissue Doppler E' Septal Velocity: 0.07 m/s E/E': 9 E' Lateral Velocity: 0.09 m/s Aortic Valve Peak Velocity: 2.18 m/s Mean Velocity: 1.49 m/s Peak Gradient: 19.04 mmHg Mean Gradient: 10.26 mmHg AV Area (continuity): 1.92 cm^2 AV VTI: 39.65 cm AV DVI: 0.42 LVOT Peak Velocity: 1.07 m/s Peak Gradient: 4.56 mmHg Mean Velocity: 0.6 m/s Mean Gradient: 1.81 mmHg LVOT Diameter: 2.4 cm LVOT VTI: 16.8 cm LVOT Area: 4.52 cm^2 LVOT SV:75.96 ml LVOT CO: 5.39 l/min LVOT CI: 2.78 l/min/m^2 Performing Organization Address City/State/[facility] Phone Number [facility] Blood gas, arterial (10/01/2018 8:26 AM REHAB MANAGER)Only the most recent of3 resultswithin the time period is included. pH, Arterial 7.37 7.35 - 7.45 [facility] pCO2, Arterial 39 35 - 45 mmHg [facility] pO2, Arterial 246 (H) 80 - 90 mmHg [facility] O2 Sat, Arterial 99.5 (H) 96.0 - 97.0 % [facility] HCO3, Arterial 22 21 - 29 mmol/L [facility] Base Excess, Arterial -2.9 (L) -2.0 - 3.0 mmol/L [facility] Patient Temperature 36.9 C [facility] FIO2 50.0 % [facility] Specimen Blood, Arterial Performing Organization Address [facility] Mexicocode Phone Number [facility] [address] [place] [address] [phone] CENTER Prepare Leuko-Red RBC (09/30/2018 11:54 PM REHAB MANAGER) CROSSMATCH COMPATIBLE SAFETRACE TX Unit ABO O Pos SAFETRACE TX UNIT NUMBER [id number] SAFETRACE TX Status TRANSFUSED SAFETRACE TX Blood Bank Product RED BLOOD CELLS SAFETRACE TX PRODUCT CODE [id number] SAFETRACE TX CROSSMATCH COMPATIBLE SAFETRACE TX Unit ABO O Pos SAFETRACE TX UNIT NUMBER [id number] SAFETRACE TX Status TRANSFUSED SAFETRACE TX Blood Bank Product RED BLOOD CELLS SAFETRACE TX PRODUCT CODE [id number] SAFETRACE TX Specimen Other Performing Organization Address [facility] Phone Number SAFETRACE TX Sputum Culture + Gram Stain (09/30/2018 2:36 PM REHAB MANAGER) Result See comment [facility] Gram Stain Result <1+ WBCs [facility] Gram Stain Result 0-5 epithelial cells [facility] Gram Stain Result 1+ yeast [facility] Specimen Sputum - Endotracheal Narrative Performed At 3+ yeast [facility] No Normal respiratory inlesh present Performing Organization Address City/[facility]/Zipcode Phone Number [facility] [address] [place] [address] CENTER REPORT OF PROCEDURE - ENDOSCOPY URL (09/30/2018 2:06 PM REHAB MANAGER) Narrative Performed At Hemoglobin and hematocrit (09/30/2018 4:28 AM REHAB MANAGER)Only the most recent of3 resultswithin the time period is included. Hemoglobin 8.7 (L) 13.7 - 17.5 GM/DL [facility] Hematocrit 28.7 (L) 40.1 - 51.0 % [facility] Specimen Blood - Line, Arterial Narrative Performed At Post transfusion [facility] Performing Organization Address City/State/Zipcode Phone Number [facility] [address] [place] [address] [phone] CENTER Transfuse Leuko-Red RBC (09/29/2018 11:29 PM REHAB MANAGER)Only the most recent of3 resultswithin the time period is included.HEMODIALYSIS INPATIENT (09/29/2018 12: 17 AM REHAB MANAGER) Narrative Performed At Naveen Garnett RN 09/29/2018 12:17 AM 2015:HD treatment initiated via RIJ tunneled catheter.Able to aspirate and flush both port without discomfort to the pt, able to achieve 400ml/min bfr.Will monitor pt. 0015:HD treatment completed, tolerated well.Net UF -3.0L in 4hrs.CVC care provided, packed with heparin as ordered.Pt in stable condition, report given to primary care RN. Lab Results Component Value Date GLUCOSE 112 (H) 09/28/2018 CALCIUM 9.1 09/28/2018 NA 134 (L) 09/28/2018 K 4.5 09/28/2018 CO2 24 09/28/2018 CL 100 09/28/2018 BUN 34 (H) 09/28/2018 CREATININE 5.31 (H) 09/28/2018 Lab Results Component Value Date WBC 26.0 (H) 09/28/2018 HGB 7.7 (L) 09/28/2018 HCT 26.5 (L) 09/28/2018 MCV 82.7 09/28/2018 PLT 285 09/28/2018 Lab Results Component Value Date HEPBSAG Nonreactive 09/26/2018 Tissue Exam (09/28/2018 1:42 PM REHAB MANAGER) Case Report Surgical Pathology Report Case: [id number] [facility] Authorizing Provider:Eduardo Ruggiero MDCollected: 09/28/2018 1342 MEDICAL [facility]ENTER Ordering Location: [facility] PERIOPERATIVE Received: 09/30/2018 0846 SERVICES Pathologist: Nahun Storey MD Specimen:Explant, HARDWARE DIAGNOSIS HARDWARE, LUMBAR SPINE, REMOVAL: [facility] HARDWARE (GROSS DIAGNOSIS) MEDICAL CENTER Signing Pathologist Direct Phone Line: [phone] CPT Code(s) DB/ew [facility] [address] MEDICAL CENTER CLINICAL HISTORY Osteomyelitis [facility] SPECIMEN SOURCE Hardware [facility] GROSS DESCRIPTION Received fresh labeled [facility] "explant", description MEDICAL CENTER "hardware" are two metallic rods each measuring 11.0 cm in length x 0.3 juanita,three metallic screws ranging in length from 6.5 cm to 11.0 cm and measuring 0.5 cm in diameter, seven metallic washers ranging in diameter from 0.5 cm to 0.7 cm, and a metallic bracket measuring 3.0 x 1.2 x 0.8 cm. The specimen is for gross identification only. DB/ew Specimen Tissue - Explant Performing Organization Address [facility] Phone Number [address] [address] [phone] [place] Potassium-Stat Lab (09/28/2018 12:15 PM REHAB MANAGER) Potassium 4.5 3.6 - 5.5 meq/L [facility] Specimen Blood, Arterial Performing Organization Address [facility] Phone Number [address] [address] [place] Sodium Na-Stat Lab (09/28/2018 12:15 PM REHAB MANAGER) Sodium 134 (L) 135 - 148 meq/L [facility] Specimen Blood, Arterial Performing Organization Address [facility] Phone Number [address] [address] [phone] [place] Glucose-Stat Lab (09/28/2018 12:15 PM REHAB MANAGER) Glucose 112 (H) 70 - 110 mg/dL [facility] Specimen Blood, Arterial Performing Organization Address [facility] Phone Number [address] [address] [place] HGB/HCT (H&H)-Stat Lab (09/28/2018 12:15 PM REHAB MANAGER) Hemoglobin 8.5 (L) 13.0 - 16.8 g/dL [facility] Hematocrit 25.0 (L) 40.0 - 50.0 % [facility] Specimen Blood, Arterial Performing Organization Address City/State/Zipcode Phone Number [facility] [address] [place] [address] CENTER [place] radiologist physician in or 30 minute increments (09/28/2018 11:50 AM REHAB MANAGER) Narrative Performed At FINAL REPORT [employer] Fluoroscopic spot imaging was performed at the time of the procedure by the ordering service. This examination is nondiagnostic. Fluoroscopy was not performed by the undersigned, and the radiologist was not present at the time of examination. Interpretation of the images was not requested. Total fluoroscopy time: 14.4 seconds Total number of films: 2 Please refer to the referring physician's procedure report for complete detail. Signed: Shiv Reaves MD Report Verified Date/Time:09/28/2018 13:35:42 Reading Location: [address] Transitional Reading Room Procedure Note Interface, External Ris In - 09/28/2018 1:37 PM REHAB MANAGER FINAL REPORT Fluoroscopic spot imaging was performed at the time of the procedure by the ordering service. This examination is nondiagnostic. Fluoroscopy was not performed by the undersigned, and the radiologist was not present at the time of examination. Interpretation of the images was not requested. Total fluoroscopy time: 14.4 seconds Total number of films: 2 Please refer to the referring physician's procedure report for complete detail. Signed: Shiv Reaves MD Report Verified Date/Time: 09/28/2018 13:35:42 Reading Location: [address] Transitional Reading Room Performing Organization Address City/State/Zipcode Phone Number [facility] [employer] Fungus culture + smear (09/28/2018 10:31 AM REHAB MANAGER) Result No fungus isolated in 28 days [facility] Fungus Smear No fungi seen [facility] Specimen Wound - Lumbar Performing Organization Address City/State/Zipcode Phone Number [facility] [address] [place] [address] chest without IV contrast (09/27/2018 6:58 PM REHAB MANAGER) Narrative Performed At FINAL REPORT [facility] History: Pleural effusion. TECHNIQUE: Helical CT of the chest was performed without contrast utilizing multiple windows, sagittal and coronal reformations. This exam was performed according to our departmental dose optimization program which includes automated exposure control, adjustment of the mA and/or KV according to the patient's size and/or use of iterative reconstruction technique. FINDINGS: Comparison is made with the patient's prior CT chest performed April 07, 2016. Chest CT: Moderate atherosclerotic calcification of the aorta, coronary arteries and great vessels is seen. A tunneled right internal jugular dialysis catheter is present, its tip terminates near the cavoatrial junction. Scattered small nonpathologic-appearing mediastinal lymph nodes are present. Moderately dilated esophagus is present containing an air-fluid level. The heart, mediastinum and great vessels are otherwise unremarkable in this noncontrast study. Small to moderate bilateral pleural effusions are present. More focal opacity in the lower lobes adjacent to the effusions likely represents atelectasis though pneumonia cannot be small cavitary right lower lobe are not visible secured by the right effusion. Similarly, the irregular nodule is identified along the posterior pleural margin in the left lower lobe is not seen partially obscured. A small left-sided pneumothorax is present despite the presence of a small caliber left chest tube entering the chest from a left posterolateral approach. Images obtained through the upper abdomen demonstrate a moderate sized fluid filled hiatal hernia. A moderately dilated gallbladder is also seen. IMPRESSION: 1. Tpmxu-fm-znmalfae bilateral pleural effusions and probable bilateral lower lung atelectasis. Previously noted small cavitary lesions in the right lower lobe and irregular nodule in the left lower lobe are not currently visible and may be obscured by these effusions. No new pulmonary nodules are identified. 2. Small left-sided pneumothorax despite the presence of a small caliber left chest tube as described above. 3. Moderately dilated esophagus containing an air-fluid level. Moderate sized fluid filled hiatal hernia is also noted. 4. Atherosclerosis. 5. Moderately distended gallbladder. Dedicated abdominal imaging could be performed for further evaluation if indicated clinically. Signed: Yosvany Alvarez MD Report Verified Date/Time:09/27/2018 19:32:24 Reading Location: [facility] Diagnostic Imaging Reading Room - [place] [address] Procedure Note Interface, External Ris In - 09/27/2018 7:34 PM REHAB MANAGER FINAL REPORT History: Pleural effusion. TECHNIQUE: Helical CT of the chest was performed without contrast utilizing multiple windows, sagittal and coronal reformations. This exam was performed according to our departmental dose optimization program which includes automated exposure control, adjustment of the mA and/or KV according to the patient's size and/or use of iterative reconstruction technique. FINDINGS: Comparison is made with the patient's prior CT chest performed April 07, 2016. Chest CT: Moderate atherosclerotic calcification of the aorta, coronary arteries and great vessels is seen. A tunneled right internal jugular dialysis catheter is present, its tip terminates near the cavoatrial junction. Scattered small nonpathologic-appearing mediastinal lymph nodes are present. Moderately dilated esophagus is present containing an air-fluid level. The heart, mediastinum and great vessels are otherwise unremarkable in this noncontrast study. Small to moderate bilateral pleural effusions are present. More focal opacity in the lower lobes adjacent to the effusions likely represents atelectasis though pneumonia cannot be small cavitary right lower lobe are not visible secured by the right effusion. Similarly, the irregular nodule is identified along the posterior pleural margin in the left lower lobe is not seen partially obscured. A small left-sided pneumothorax is present despite the presence of a small caliber left chest tube entering the chest from a left posterolateral approach. Images obtained through the upper abdomen demonstrate a moderate sized fluid filled hiatal hernia. A moderately dilated gallbladder is also seen. IMPRESSION: 1. Aopnp-fo-eejmlkmm bilateral pleural effusions and probable bilateral lower lung atelectasis. Previously noted small cavitary lesions in the right lower lobe and irregular nodule in the left lower lobe are not currently visible and may be obscured by these effusions. No new pulmonary nodules are identified. 2. Small left-sided pneumothorax despite the presence of a small caliber left chest tube as described above. 3. Moderately dilated esophagus containing an air-fluid level. Moderate sized fluid filled hiatal hernia is also noted. 4. Atherosclerosis. 5. Moderately distended gallbladder. Dedicated abdominal imaging could be performed for further evaluation if indicated clinically. Signed: Yosvany Alvarez MD Report Verified Date/Time: 09/27/2018 19:32:24 Reading Location: [facility] Diagnostic Imaging Reading Room - [place] [address] Performing Organization Address City/State/Zipcode Phone Number [facility] Lactate dehydrogenase (LDH) (09/27/2018 4:53 AM REHAB MANAGER) LDH 387 (H)Comment: Specimen 125 - 220 U/L [facility] slightly hemolyzed [facility] Specimen Blood - Arm, Left Performing Organization Address [facility] Mex[facility]ode Phone Number [facility] MEDICAL [address] [place] [address] [phone] CENTER HEMODIALYSIS INPATIENT (09/26/2018 7:59 PM REHAB MANAGER) Narrative Performed At Rosaline Rosas RN 09/26/20189:10 PM Lab Results Component Value Date WBC 28.3 (H) 09/26/2018 HGB 10.5 (L) 09/26/2018 HCT 35.0 (L) 09/26/2018 MCV 82.4 09/26/2018 PLT 310 09/26/2018 Lab Results Component Value Date GLUCOSE 130 (H) 09/26/2018 CALCIUM 9.3 09/26/2018 NA 135 (L) 09/26/2018 K 4.8 09/26/2018 CO2 21 (L) 09/26/2018 CL 100 09/26/2018 BUN 46 (H) 09/26/2018 CREATININE 6.42 (H) 09/26/2018 Results for IDRIS PARKS ( ) as of 09/26/2018 19:59 Ref. Range 09/26/2018 16:55 Hepatitis B Surface Ag Latest Ref Range: NonreactiveNonreactive HD completed X 4 hours.Net UF -2.3L as unable to return blood at end of treatment. Dr Reveles visited at start of treatment and UF order adjusted. Left chest tube leaked large amount serous fluid all over bed linens despite being attached to 20 cm [facility]/ wall suction. Linens etc changed.Dressing applied to chest tube insertion site (no dressing on patient arrival to dialysis unit.)Patient has large reddened area mid-back, per patient is very painful when repositioning side to side or extending extremities, related to epidural abscess per chart. Report called to fiona BARONE.Rosaline Rosas RN pH, body fluid (09/26/2018 3:54 PM REHAB MANAGER) pH, Body Fluid 7.87 [facility] Specimen Body Fluid - Pleural, Left Performing Organization Address [facility]/Zipcode Phone Number [facility] [address] [place] [address] CENTER Body fluid culture + gram stain (09/26/2018 3:54 PM REHAB MANAGER) Result No growth [facility] Gram Stain Result <1+ WBCs [facility] Gram Stain Result No organisms seen [facility] Specimen Body Fluid - Pleural, Left Performing Organization Address [facility]/Zipcode Phone Number [facility] [address] [place] [phone] CENTER Body fluid cell count with differential (09/26/2018 3:54 PM REHAB MANAGER) Appearance Slightly Hazy (A) Clear [facility] Color Yellow (A) Colorless, Straw [facility] RBCs 150 (H) <=1 /cu mm [facility] Adjusted WBC Count 375 (H) <=5 /cu mm [facility] Lining Cells 7 (H) <=1 /cu mm [facility] % Segs 41 % [facility] % Lymphs 7 % [facility] % Monos 29 % [facility] % Eos 22 % [facility] % Baso 1 % [facility] Container Body Fluid EDTA Tube [facility] Specimen Body Fluid - Pleural, Left Performing Organization Address City/State/Zipcode Phone Number [facility] [address] [place] [phone] [place] Triglycerides, body fluid (09/26/2018 3:54 PM REHAB MANAGER) Triglycerides, Fluid 19 mg/dL [facility] Specimen Body Fluid - Pleural, Left Narrative Performed At Reference Range:No Normals [facility] Assay performance has not been validated for this type of specimen. Performing Organization Address City/[facility] Mex[facility]ode Phone Number [address] [address] [place] Protein, body fluid (09/26/2018 3:54 PM REHAB MANAGER) Protein, Fluid 2.1 Light's criteria identifies [facility] effusions if one or more are MEDICAL CENTER present: Pleural to serum protein ratio of more than 0.5; Pleural to Serum LDH of more than 0.6; Pleural LDH of more than two third of upper serum reference limit g/dL Specimen Body Fluid - Pleural, Left Narrative Performed At Absence of reference range indicates that [facility] normals have not been defined. Assay performance has not been validated for this type of specimen. Performing Organization Address City/[facility] Mex[facility]ode Phone Number [facility] [address] [place] [address] CENTER Lactate dehydrogenase (LDH), body fluid (09/26/2018 3:54 PM REHAB MANAGER) LDH, Fluid 111 Light's criteria identifies [facility] MEDICAL effusions if one or more are CENTER present: Pleural to serum protein ratio of more than 0.5; Pleural to serum LDH ratio of more than 0.6; Pleural LDH more than two third of upper serum reference limit U/L Specimen Body Fluid - Pleural, Left Narrative Performed At Absence of reference range indicates that [facility] normals have not been defined. Assay performance has not been validated for this type of specimen. Performing Organization Address [facility] Mex[facility]ode Phone Number [address] [phone] CENTER Cytology (09/26/2018 3:54 PM REHAB MANAGER) Case Report Medical Cytology Report Case: [id number] [facility] Authorizing Provider:Malena Whittaker, Collected: 09/26/[address] [facility] ASSEMBLY ASSOCIATE Ordering Location: [address] Received: 09/27/2018 0922 Service Pathologist: Chayo Bashir MD Specimen:Pleural, Left DIAGNOSIS LEFT PLEURAL FLUID (CYTOSPINS ): [facility] - NEGATIVE FOR MALIGNANCY [facility] - MESOTHELIAL CELLS; ACUTE INFLAMMATORY CELLS Signing Pathologist Direct Phone Line: [phone] CPT Code(s) 62115 [facility] CLINICAL DATA Left pleural effusion, history of Parkinson's disease,MRSA bacteremia,HTN, DM, ESRD (TTS),CAD, and Atrial fibrillation [facility] SPECIMEN SOURCE LEFT PLEURAL FLUID [facility] GROSS DESCRIPTION 5 mls yellow; [address] [facility] Collected: [id number] [facility] Received: [id number] MICROSCOPIC DESCRIPTION Performed. [facility] STATEMENT OF ADEQUACY Satisfactory [facility] Gross assessment was [facility] performed at [place], Department of [facility] Pathology, [address] [place] [id number], Technical component was [facility] performed at [place], Department [facility] Pathology, [address] [place] [address], Professional component was [facility] performed at [place], Department of [facility] Pathology, [address] [place] [address], Specimen Body Fluid - Pleural, Left Narrative Performed At Performing Organization Address [facility] Mex[facility]ode Phone Number [facility] [address] [place] [address] brain without IV contrast (09/26/2018 2:06 PM REHAB MANAGER) Narrative Performed At FINAL REPORT [facility] CT head without contrast 09/26/2018 2:17 PM CLINICAL HISTORY: Neuro deficit(s), subacute TECHNIQUE: Axial noncontrast CT images through the head were obtained. This examination was performed according to our departmental dose optimization program, which includes automated exposure control, adjustment of the mA and/or kV according to patient size, and/or use of iterated reconstruction technique. COMPARISON: 12/08/2016 FINDINGS: There is disproportionate supratentorial ventriculomegaly suggesting normal pressure hydrocephalus. There is no hemorrhage, mass, or midline shift. There is a prominent cisterna magna or arachnoid cyst without remarkable mass effect overlying the posterior left cerebellar hemisphere. There is mild microvascular ischemia in the supratentorial white matter. There is atherosclerotic calcification of the intracranial arterial vasculature. There is generalized parenchymal volume loss. The visualized paranasal sinuses and mastoid air cells are well aerated. The skull is intact. IMPRESSION: No intracranial hemorrhage or mass effect. Chronic appearing findings, stable when compared to 12/08/2016. If concern for acute pathology persists, further evaluation with MRI is recommended. Signed: Avi Lara MD Report Verified Date/Time:09/26/2018 14:19:09 Reading Location: [facility] Radiology Reading Room Procedure Note Interface, External Ris In - 09/26/2018 3:25 PM REHAB MANAGER FINAL REPORT CT head without contrast 09/26/2018 2:17 PM CLINICAL HISTORY: Neuro deficit(s), subacute TECHNIQUE: Axial noncontrast CT images through the head were obtained. This examination was performed according to our departmental dose optimization program, which includes automated exposure control, adjustment of the mA and/or kV according to patient size, and/or use of iterated reconstruction technique. COMPARISON: 12/08/2016 FINDINGS: There is disproportionate supratentorial ventriculomegaly suggesting normal pressure hydrocephalus. There is no hemorrhage, mass, or midline shift. There is a prominent cisterna magna or arachnoid cyst without remarkable mass effect overlying the posterior left cerebellar hemisphere. There is mild microvascular ischemia in the supratentorial white matter. There is atherosclerotic calcification of the intracranial arterial vasculature. There is generalized parenchymal volume loss. The visualized paranasal sinuses and mastoid air cells are well aerated. The skull is intact. IMPRESSION: No intracranial hemorrhage or mass effect. Chronic appearing findings, stable when compared to 12/08/2016. If concern for acute pathology persists, further evaluation with MRI is recommended. Signed: Avi Lara MD Report Verified Date/Time: 09/26/2018 14:19:09 Reading Location: [facility] Radiology Reading Room Performing Organization Address [facility]ond Phone Number [facility] Lactic acid, venous, whole blood (09/26/2018 2:42 AM REHAB MANAGER) Lactate, Venous 0.7Comment: Specimen 0.5 - 2.2 mmol/L [facility] slightly hemolyzed [facility] Specimen Blood Performing Organization Address [facility]ond Phone Number [address] [address] [phone] CENTER Hepatic function panel (09/26/2018 2:42 AM REHAB MANAGER) Protein, Total 6.6 6.0 - 8.3 gm/dL [facility] Albumin 3.1 (L) 3.5 - 5.0 g/dL [facility] Total Bilirubin 0.5 0.2 - 1.2 mg/dL [facility] Bilirubin, Direct 0.2 0.1 - 0.5 mg/dL [facility] Alkaline Phosphatase 102 40 - 150 U/L [facility] AST 9 5 - 34 U/L [facility] ALT 8 6 - 55 U/L [facility] Specimen Blood Performing Organization Address [facility] Phone Number [facility] [address] [place] [address] [phone] CENTER after 11/06/2017 Insurance Payer Benefit Plan / Group Subscriber ID Type Phone Address [id number] xxxxxxxxx Advance Directives For more information, please contact:[address] [phone] Code Status Date Activated Date Inactivated Comments Partial Code 09/29/2018 8:26 AM This code status was determined by: Patient Drug Protocol After Arrest Occurs? No Mechanical Ventilation with Intubation? Yes Bag/Mask? No Internal/External Pacemaker? No Transfer to Critical Care? No Chest Compressions? No Defibrillation/Cardioversion? No Full Code 09/25/2018 8:27 PM 09/29/2018 8:26 AM This code status was determined by: Patient Full Code 11/29/2016 2:40 AM 12/25/2016 10:37 PM This code status was determined by: Patient Full Code 09/04/2014 12:28 PM 09/04/2014 6:40 PM This code status was determined by: Patient
--- OUTSIDE RECORDS SUMMARY | 2018-11-07 10:58 | XMS REPORT | Continuity of Care Document ---
:1960 Author Organization Interface Problems Problem Status Onset Classification Date Comments Source Date Reported MRSA<sup>1, 2, Active Problem 06/24/2016 Problem [facility] 3, 4</sup> 6 added by [facility] Expert. MARISEL COYLE Active [address] CAD - Coronary Resolved Problem 06/24/2016 [facility] artery disease [facility] Congestive Resolved Problem 06/24/2016 [facility] heart failure [facility] COPD Resolved Problem 06/24/2016 [facility] Diabetes Resolved Problem 06/24/2016 [facility] HTN (<span Resolved Problem 06/24/2016 [facility] ID="[id number] Medical 7">Confirmed</s Center [place]>) MRSA infection Resolved Problem 06/24/2016 [facility] ILLNESS, Active [facility] UNSPECIFIED [facility] Center Medications Medication Details Route Status Patient Ordering Order Source Instructions Provider Date clopidogrel 75 mg 75 mg=1 tab, Active [facility] oral tablet PO, Daily, 0 016 Medical Refill(s) [place] bisacodyl 10 mg 10 mg=1 Active [facility] rectal supp, [place], 016 Medical suppository Daily, PRN Center Constipation , 0 Refill(s) atorvastatin 40 40 mg=1 tab, Active [facility] mg oral tablet PO, Daily, 0 016 Medical Refill(s) Center amLODIPine 10 mg 10 mg=1 tab, Active [facility] oral tablet PO, Daily, 0 016 Medical Refill(s) [place] acetaminophen 325 650 mg=2 Active [facility] mg oral tablet tab, PO, 016 Medical Q6H, PRN Center Pain 1-3/Temp > 100.4 F, 0 Refill(s) tiotropium 18 Active [facility] microgram=1 016 Medical inhalation, Center INHALATION, RDaily, 0 Refill(s) ziprasidone 20 mg 20 mg=1 cap, Active [facility] oral capsule PO, BID, 0 016 Medical Refill(s) [place] Sucralfate 100 1 gm=10 mL, Active [place] MG/ML Oral PO, QID, 0 016 Medical Suspension Refill(s) [place] senna 8.6 mg oral 8.6 mg=1 Active [facility] tablet tab, PO, 016 Medical Daily, 0 Center Refill(s) polyethylene 17 gm, PO, Active [facility] glycol 3350 oral BID, 0 016 Medical powder for Refill(s) [place] reconstitution pantoprazole 40 40 mg=1 tab, Active [place] mg oral enteric PO, BID, 0 016 Medical coated tablet Refill(s) [place] Oxycodone 5 mg=1 tab, Active [facility] Hydrochloride 5 PO, Q6H, PRN 016 Medical MG Oral Tablet Pain Score Center 4-6, 0 Refill(s) metoprolol 25 mg=1 tab, Active [facility] tartrate 25 mg PO, Q12H, 0 016 Medical oral tablet Refill(s) [place] methocarbamol 500 1,000 mg=2 Active [facility] mg oral tablet tab, PO, 016 Medical Q8Hnow, 0 Center Refill(s) losartan 50 mg 50 mg=1 tab, Active [facility] oral tablet PO, Daily, 0 016 Medical Refill(s) [place] insulin detemir 10 unit, Active [facility] 100 units/mL SUB-Q, Q12H, 016 Medical subcutaneous 0 Refill(s) [place] solution Hydralazine 25 mg=1 tab, Active [facility] Hydrochloride 25 PO, Q6H-02, 016 Medical MG Oral Tablet 0 Refill(s) [place] gabapentin 100 MG 100 mg=1 Active [facility] Oral Capsule cap, PO, 016 Medical Daily, 0 Center Refill(s) doxazosin 4 mg 4 mg=1 tab, Active [facility] oral tablet PO, Daily, 0 016 Medical Refill(s) [place] donepezil 5 mg 10 mg=2 tab, Active [facility] oral tablet PO, Bedtime, 016 Medical 0 Refill(s) [place] Docusate Sodium 100 mg=1 Active [facility] [place] 100 MG Oral cap, PO, 016 Medical Capsule BID, 0 Center Refill(s) Aspirin 81 MG 81 mg=1 tab, Active [facility] Enteric Coated PO, Daily, 0 016 Medical Tablet Refill(s) Center Plavix 75 mg, 1 Inactive [facility] tab, Route: 016 Medical PO, Drug Center form: TAB, Daily, Dosing Weight 104.33, kg, Start date: 06/21/16 9:00:00 CDT, Duration: 30 day, Stop date: 07/20/16 9:00:00 CDTNotes: (Same As: Plavix) Aspirin 81 mg, 1 No Longer [facility] tab, Route: Active 016 Medical PO, Drug Center form: ECTAB, Daily, Dosing Weight 104.33, kg, Start date: 06/20/16 16:17:00 CDT, Duration: 30 day, Stop date: 07/20/16 9:00:00 CDT vancomycin 1 g See Active [facility] intravenous Instructions 016 Medical injection , infused Center over 60 minute, # 1 vial, 0 Refill(s) gabapentin 100 MG 100 mg, 1 Inactive [facility] Oral Capsule cap, Route: 016 Medical PO, Drug Center form: CAP, ONCE, Dosing Weight 104.33, kg, Start date: 06/19/16 17:40:00 CDT, Stop date: 06/19/16 17:40:00 CDTNotes: (Same as: Neurontin) Dilaudid 0.2 mg, 0.1 No Longer [facility] mL, Route: Active 016 Medical IVP, Drug Center form: INJ, Q4H, Dosing Weight 104.33, kg, PRN Pain Score 7-10, Start date: 06/19/16 17:37:00 CDT, Duration: 30 day, Stop date: 07/19/16 17:36:00 CDTNotes: Same as: Dilaudid Oxycodone 10 mg, 2 No Longer [facility] Hydrochloride 5 tab, Route: Active 016 Medical MG Oral Tablet PO, Drug Center form: TAB, Q6H, Dosing Weight 104.33, kg, PRN Pain Score 7-10, Start date: 06/19/16 17:36:00 CDT, Duration: 30 day, Stop date: 07/19/16 17:35:00 CDTNotes: (Same as: Roxicodone) vancomycin + 2 gm, Route: Inactive [facility] sodium chloride IVPB, ONCE, 016 Medical 0.9% 500 ml INJ Start date: Center 500 mL 06/19/16 15:00:00 CDT, Stop date: 06/19/16 15:00:00 CDTNotes: TIME CRITICAL MEDICATION (Same As: Vancocin) Infusion rate 2001 mg: infuse over 2.5 hours MEDICATION WASTE Product Size: 1000 mg Product Wasted: ___ mg hydrALAZINE 25 mg, 1 No Longer [facility] tab, Route: Active 016 Medical PO, Drug Center form: TAB, Q6H-02, Dosing Weight 104.33, kg, Priority: Routine, Start date: 06/17/16 12:00:00 CDT, Duration: 30 day, Stop date: 07/17/16 6:00:00 CDTNotes: (Same as: Apresoline) May interfere w/enteral feedings Take With Food. Protonix 80 mg, 2 No Longer [facility] tab, Route: Active 016 Medical PO, Drug Center form: ECTAB, BID, Dosing Weight 104.33, kg, Start date: 06/17/16 9:00:00 CDT, Duration: 30 day, Stop date: 07/16/16 17:00:00 CDTNotes: Tablet should not be chewed or crushed. (Same as: Protonix) Protonix 40 mg, 1 No Longer [facility] tab, Route: Active 016 Medical PO, Drug Center form: ECTAB, BID, Dosing Weight 104.33, kg, Start date: 06/16/16 17:00:00 CDT, Duration: 30 day, Stop date: 07/16/16 9:00:00 CDT vancomycin + 2 gm, Route: Inactive [facility] sodium chloride IVPB, ONCE, 016 Medical 0.9% 500 ml INJ Start date: Center 500 mL 06/16/16 14:30:00 CDT, Stop date: 06/16/16 14:30:00 CDTNotes: TIME CRITICAL MEDICATION (Same As: Vancocin) Infusion rate 2001 mg: infuse over 2.5 hours MEDICATION WASTE Product Size: 1000 mg Product Wasted: ___ mg gabapentin 100 MG 100 mg, 1 No Longer [facility] Oral Capsule cap, Route: Active 016 Medical PO, Drug Center form: CAP, Daily, Dosing Weight 104.33, kg, Start date: 06/16/16 11:46:00 CDT, Duration: 30 day, Stop date: 07/16/16 9:00:00 CDTNotes: (Same as: Neurontin) Cozaar 50 mg, 1 No Longer [facility] tab, Route: Active 016 Medical PO, Drug Center form: TAB, Daily, Dosing Weight 104.33, kg, Start date: 06/16/16 9:00:00 CDT, Duration: 30 day, Stop date: 07/15/16 9:00:00 CDTNotes: (Same as: Cozaar) Amlodipine 10 mg, 1 No Longer [facility] tab, Route: Active 016 Medical PO, Drug Center form: TAB, Daily, Dosing Weight 104.33, kg, Start date: 06/16/16 9:00:00 CDT, Duration: 30 day, Stop date: 07/15/16 9:00:00 CDTNotes: (Same as: Norvasc) sodium chloride 250 mL, No Longer [facility] 0.9% INJ 250 mL Rate: On [place] [address] Medical call for use Center with blood product administrati on, Dosing Weight 104.33, kg, Route: IV, Total Volume: 250, Start Date: 06/16/16 7:16:00 CDT, Duration: 1 doses or times, Stop date: 06/17/16 7:15:00 CDT, Replace Every: 24 hr Robaxin 1,000 mg, 2 No Longer [facility] tab, Route: Active 016 Medical PO, Drug Center form: TAB, Q8Hnow, Dosing Weight 104.33, kg, Start date: 06/16/16 0:00:00 CDT, Duration: 30 day, Stop date: 07/15/16 16:00:00 CDTNotes: (Same as:Robaxin) hydrALAZINE 50 mg, 1 No Longer [facility] tab, Route: Active 016 Medical PO, Drug Center form: TAB, Q6H-02, Dosing Weight 104.33, kg, Priority: Routine, Start date: 06/16/16 0:00:00 CDT, Duration: 30 day, Stop date: 07/15/16 18:00:00 CDTNotes: (Same as: Apresoline) May interfere w/enteral feedings Take With Food Levemir 10 unit, 0.1 No Longer [facility] mL, Route: Active 016 Medical SUB-Q, Drug Center form: INJ, Q12H, Dosing Weight 104.33, kg, Start date: 06/15/16 21:00:00 CDT, Duration: 30 day, Stop date: 07/15/16 9:00:00 CDTNotes: Same as Levemir Do not hold insulin without contacting prescriber WASTE: F/P - Black; E - Municipal Trash Bin "single patient use only" Vancomycin 1,500 mg, Inactive [facility] Route: IVPB, [facility] Drug form: [place] INJ, ONCE, Dosing Weight 104.33, kg, Start date: 06/15/16 17:17:00 CDT, Stop date: 06/15/16 17:17:00 CDT sodium chloride 250 mL, No Longer [facility] 0.9% 1000 ml INJ Rate: On [facility] 016 [facility] 250 mL call for use Center with blood product administrati on, Dosing Weight 104.33, kg, Route: IV, Total Volume: 250, Start Date: 06/15/16 0:25:00 CDT, Duration: 30 day, Stop date: 07/15/16 0:24:00 CDT, Replace Every: 24 hr Protonix 40 mg, No Longer [facility] Route: IVP, Active 016 Medical Drug form: [place] INJ, BID, Dosing Weight 104.33, kg, Start date: 06/14/16 17:00:00 CDT, Duration: 30 day, Stop date: 07/14/16 9:00:00 CDT Carafate 1 gm, 10 mL, No Longer [facility] Route: PO, Active 016 Medical Drug form: [place] SUSP, QID, Start date: 06/14/16 13:00:00 CDT, Duration: 14 day, Stop date: 06/28/16 9:00:00 CDT Lopressor 25 mg, 1 No Longer [facility] tab, Route: Active 016 Medical PO, Drug Center form: TAB, Q12H, Dosing Weight 104.33, kg, Start date: 06/14/16 9:55:00 CDT, Duration: 30 day, Stop date: 07/14/16 9:00:00 CDTNotes: (Same as: Lopressor) Doxazosin 4 mg, 1 tab, No Longer [facility] Route: PO, Active 016 Medical Drug form: [place] TAB, Daily, Dosing Weight 104.33, kg, Start date: 06/14/16 9:00:00 CDT, Duration: 30 day, Stop date: 07/13/16 9:00:00 CDTNotes: (Same as: Maricarmen) Sodium Chloride 100 mL, No Longer [facility] 0.154 MEQ/ML Rate: [address] [place] [address] Medical Injectable ml/hr, [place] Solution Infuse over: 10 hr, Route: IVPB, Dosing Weight 104.33 kg, Total Volume: 100, Infuse at 8 mg / hr for 72 hours for GI bleeding, Start date: 06/13/16 21:35:00 CDT, Duration: 72 hr, Stop date: 06/16/16 21:34:00 CDT Metoclopramide 5 5 mg, 1 tab, No Longer [facility] MG Oral Tablet Route: PO, Active 016 Medical [Reglan] Drug form: [place] TAB, Before Meals & Bedtime, Dosing Weight 104.33, kg, Start date: 06/13/16 21:00:00 CDT, Duration: 30 day, Stop date: 07/13/16 16:30:00 CDTNotes: (Same as: Reglan) magnesium citrate 300 ml, Inactive [facility] Route: PO, 016 Medical Drug Form: [place] LIQ, Dosing Weight 104.33, kg, ONCE, Start date: 06/13/16 19:55:00 CDT, Stop date: 06/13/16 19:55:00 CDTNotes: (Same as: Citrate of Magnesia) SMOG Enema 300 ml, No Longer [facility] Route: PA, Active Medical Drug Form: Center TONIA, Dosing Weight 104.33, kg, ONCE, Start date: 06/13/16 19:54:00 CDT, Duration: 1 doses or times, Stop date: 06/13/16 19:54:00 CDTNotes: Non formulary item Cardura 2 mg, 1 tab, Inactive [facility] Route: PO, Medical Drug form: [place] TAB, ONCE, Start date: 06/13/16 15:22:00 CDT, Stop date: 06/13/16 15:22:00 CDTNotes: (Same as: Cardura) Vancomycin 1.5 gm, Inactive [facility] Route: IVPB, [address] [place] [address] ONCE, Dosing Center Weight 104.33, kg, Start date: 06/13/16 3:57:00 CDT, Stop date: 06/13/16 3:57:00 CDTNotes: TIME CRITICAL MEDICATION (Same As: Vancocin) Infusion rate 2001 mg: infuse over 2.5 hours MEDICATION WASTE Product Size: 1000 mg Product Wasted: ___ mg Phenergan 12.5 mg, 0.5 No Longer [facility] mL, Route: Active [facility] IVPB, Drug Center form: INJ, Q6H, PRN Nausea, Start date: 06/13/16 3:11:00 CDT, Duration: 30 day, Stop date: 07/13/16 3:10:00 CDTNotes: Do not give IV push. (Same as: Phenergan) Compazine 5 mg, Route: Inactive [facility] IV, Q3H, 016 Medical Dosing Center Weight 104.33, kg, PRN Nausea & Vomiting, Start date: 06/13/16 2:02:00 CDT, Duration: 30 day, Stop date: 07/13/16 2:01:00 CDT Doxazosin 2 mg, 1 tab, No Longer [facility] Route: PO, Active 016 Medical Drug form: Center TAB, Daily, Dosing Weight 104.33, kg, Start date: 06/12/16 10:30:00 CDT, Duration: 30 day, Stop date: 07/12/16 9:00:00 CDTNotes: (Same as: Maricarmen) Dilaudid 0.2 mg, 0.1 No Longer [facility] mL, Route: Active 016 Medical IVP, Drug Center form: INJ, Q4H, Dosing Weight 104.33, kg, PRN Pain Score 7-10, Start date: 06/12/16 10:19:00 CDT, Duration: 30 day, Stop date: 07/12/16 10:18:00 CDTNotes: Same as: Dilaudid hydrALAZINE 50 mg, 1 No Longer [facility] tab, Route: Active 016 Medical PO, Drug Center form: TAB, Q6H-02, Dosing Weight 104.33, kg, Priority: Routine, Start date: 06/10/16 12:30:00 CDT, Duration: 30 day, Stop date: 07/10/16 6:30:00 CDTNotes: (Same as: Apresoline) May interfere w/enteral feedings Take With Food vancomycin 1 gm, Route: Inactive [facility] IVPB, Drug [facility] Medical form: INJ, Center ONCE, Start date: 06/10/16 2:30:00 CDT, Stop date: 06/10/16 2:30:00 CDTNotes: TIME CRITICAL MEDICATION (Same As: Vancocin) Infusion rate 2001 mg: infuse over 2.5 hours MEDICATION WASTE Product Size: 1000 mg Product Wasted: ___ mg hydrALAZINE 25 mg 25 mg, 1 Inactive [facility] oral tablet tab, Route: 016 Medical PO, Drug Center form: TAB, Q6H-02, Dosing Weight 104.33, kg, Priority: Routine, Start date: 06/10/16 0:30:00 CDT, Duration: 30 day, Stop date: 07/09/16 18:30:00 CDTNotes: (Same as: Apresoline) May interfere w/enteral feedings Take With Food. vancomycin + 750 mg, Inactive [facility] sodium chloride Route: IVPB, 016 Medical [...] With Food. vancomycin 1 gm, Route: Inactive [facility] IVPB, Drug 016 Medical form: INJ, Center ONCE, Start date: 06/08/16 13:00:00 CDT, Stop date: 06/08/16 13:00:00 CDTNotes: TIME CRITICAL MEDICATION (Same As: Vancocin) Infusion rate 2001 mg: infuse over 2.5 hours MEDICATION WASTE Product Size: 1000 mg Product Wasted: ___ mg Geodon 20 mg, 1 No Longer [facility] cap, Route: Active 016 Medical PO, [...] as:Robaxin) Robaxin 500 mg, 1 No Longer [facility] tab, Route: Active 016 Medical PO, Drug Center form: TAB, Q8H, Dosing Weight 104.33, kg, Priority: NOW, Start date: 06/07/16 22:02:00 CDT, Duration: 30 day, Stop date: 07/07/16 22:00:00 CDTNotes: (Same as:Robaxin) Milk of Magnesia 60 ml, Inactive [facility] Route: PO, 016 Medical Drug Form: [place] SUSP, Dosing Weight 104.33, kg, ONCE, Start date: 06/07/16 19:09:00 CDT, Stop date: 06/07/16 19:09:00 CDTNotes: (Same as: Milk of Magnesia, MOM) heparin 5,000 unit, No Longer [facility] 1 mL, Route: Active 016 Medical SUB-Q, Drug Center form: INJ, Q8H, Dosing Weight 104.33, kg, Start date: 06/07/16 16:00:00 CDT, Duration: 30 day, Stop date: 07/07/16 8:00:00 CDTNotes: porcine heparin molasses 240 mL, Inactive [facility] Route: PA, 016 Medical Drug Form: [place] SYRP, Dosing Weight 104.33, kg, ONCE, Milk of Molasses Enema, Start date: 06/07/16 10:36:00 CDT, Duration: 1 doses or times, Stop date: 06/07/16 10:36:00 CDTNotes: (Same as:Molasses) Oxycodone 5 mg, 1 tab, No Longer [facility] Hydrochloride 5 Route: PO, Active 016 Medical MG Oral Tablet Drug form: [place] TAB, Q6H, Dosing Weight 104.33, kg, PRN Pain Score 4-6, Start date: 06/07/16 10:15:00 CDT, Duration: 30 day, Stop date: 07/07/16 10:14:00 CDTNotes: (Same as: Roxicodone) sennosides, LONGTERM 8.6 mg, 1 No Longer [facility] tab, Route: Active 016 Medical PO, Drug Center Form: TAB, Dosing Weight 104.33, kg, Daily, Start date: 06/07/16 9:00:00 CDT, Duration: 30 day, Stop date: 07/06/16 9:00:00 CDTNotes: (Same as: Isaiahot) lurasidone 80 mg, No Longer [facility] Route: PO, Active 016 Medical Drug form: Center TAB, Daily, Dosing Weight 104.33, kg, Start date: 06/07/16 9:00:00 CDT, Duration: 30 day, Stop date: 07/06/16 9:00:00 CDT atorvastatin 40 mg, 1 No Longer [facility] tab, Route: Active 016 Medical PO, Drug Center form: TAB, Daily, Dosing Weight 104.33, kg, Start date: 06/07/16 9:00:00 CDT, Duration: 30 day, Stop date: 07/06/16 9:00:00 CDTNotes: (Same as: Lipitor) Amlodipine 10 mg, 1 No Longer [facility] tab, Route: Active 016 Medical PO, Drug Center form: TAB, Daily, Dosing Weight 104.33, kg, Start date: 06/07/16 9:00:00 CDT, Duration: 30 day, Stop date: 07/06/16 9:00:00 CDTNotes: (Same as: [place]) Levemir 5 unit, 0.05 No Longer [facility] mL, Route: Active 016 Medical SUB-Q, Drug Center form: INJ, Bedtime, Dosing Weight 104.33, kg, Start date: 06/06/16 21:00:00 CDT, Stop date: 07/05/16 21:00:00 CDTNotes: Same as Levemir Do not hold insulin without contacting prescriber WASTE: F/P - Black; E - Municipal Trash Bin "single patient use only" Geodon 40 mg, 1 No Longer [facility] cap, Route: Active 016 Medical PO, Drug Center form: CAP, Bedtime, Dosing Weight 104.33, kg, Start date: 06/06/16 21:00:00 CDT, Duration: 30 day, Stop date: 07/05/16 21:00:00 CDT donepezil 10 mg, 2 No Longer [facility] tab, Route: Active 016 Medical PO, Drug Center form: TAB, Bedtime, Dosing Weight 104.33, kg, Start date: 06/06/16 21:00:00 CDT, Duration: 30 day, Stop date: 07/05/16 21:00:00 CDTNotes: (Same as: Aricept) Furosemide 40 MG 40 mg=1 tab, No Longer [facility] Oral Tablet PO, 0 Active [facility] Medical Refill(s) [place] Humulin 70/30 Pen SUB-Q, 0 No Longer [facility] Refill(s) [address] terazosin 2 mg 2 mg=1 cap, No Longer [facility] oral capsule PO, 0 Active [facility] Medical Refill(s) [place] 3 ML Insulin 6 unit, No Longer [facility] Lispro 100 UNT/ML SUB-Q, # [address] [place] [address] Pen Injector mL, 0 Center [Humalog] Refill(s) vancomycin + 750 mg, Inactive [facility] sodium chloride Route: IVPB, [address] [place] [address] 0.9% 250 mL INJ , Center (for IV set) 250 Start date: mL 06/06/16 18:00:00 CDT, Duration: 30 day, Stop date: 07/06/16 16:00:00 CDTNotes: TIME CRITICAL MEDICATION (Same As: Vancocin) Infusion rate 2001 mg: infuse over 2.5 hours MEDICATION WASTE Product Size: 1000 mg Product Wasted: ___ mg Docusate Sodium 100 mg, 1 Inactive [facility] 100 MG Oral cap, Route: [facility] Medical Capsule [Colace] PO, BID, Center Dosing Weight 104.33, kg, Start date: 06/06/16 17:00:00 CDT, Duration: 30 day, Stop date: 07/06/16 9:00:00 CDT Miralax 17 gm, 1 No Longer [facility] pkt, Route: Active [facility] Medical PO, Drug Center form: PWDR, BID, Dosing Weight 104.33, kg, Start date: 06/06/16 17:00:00 CDT, Duration: 30 day, Stop date: 07/06/16 9:00:00 CDTNotes: Dissolve in 8 oz of water or juice. (Same as: Miralax) Docusate 100 mg, 1 No Longer [facility] cap, Route: Active 016 Medical PO, Drug Center form: CAP, BID, Dosing Weight 104.33, kg, Start date: 06/06/16 17:00:00 CDT, Duration: 30 day, Stop date: 07/06/16 9:00:00 CDTNotes: (Same as: Colace) (Do Not Crush) ranolazine 1,000 mg, 2 No Longer [facility] tab, Route: Active 016 Medical PO, Drug Center form: TAB, BID, Dosing Weight 104.33, kg, Start date: 06/06/16 17:00:00 CDT, Duration: 30 day, Stop date: 07/06/16 9:00:00 CDT Cozaar 100 mg, 2 No Longer [facility] tab, Route: Active 016 Medical PO, Drug Center form: TAB, Daily, Dosing Weight 104.33, kg, Start date: 06/06/16 17:00:00 CDT, Duration: 30 day, Stop date: 07/06/16 9:00:00 CDTNotes: (Same as: Cozaar) vancomycin + 2,250 mg, Inactive [facility] sodium chloride Route: IVPB, [facility] Medical 0.9% 500 mL INJ ONCE, [place] (for IV set) 500 Priority: mL Routine, Start date: 06/06/16 17:00:00 CDT, Stop date: 06/06/16 17:00:00 CDTNotes: TIME CRITICAL MEDICATION (Same As: Vancocin) Infusion rate 2001 mg: infuse over 2.5 hours MEDICATION WASTE Product Size: 1000 mg Product Wasted: ___ mg Acetaminophen 325 1 tab, No Longer [facility] MG / Hydrocodone Route: PO, Active [facility] Medical Bitartrate 5 MG Drug Form: Center Oral Tablet TAB, Dosing [[place] 5/325] Weight 104.33, kg, Q4H, PRN Pain Score 4-6, Start date: 06/06/16 16:23:00 CDT, Duration: 30 day, Stop date: 07/06/16 16:22:00 CDTNotes: (Same as: [place] 325/5) Do not exceed 4gm/day of acetaminophe n. Tylenol 650 mg, 2 No Longer [facility] tab, Route: Active 016 Medical PO, [...] As: Ultram) meropenem 500 mg, No Longer [facility] Route: IVPB, Active 016 Medical Drug form: Center PDR/INJ, [id number], Dosing Weight 104.33, kg, CrCL=Notes: Same as [place] MEDICATION WASTE Product Size: 500 mg Product Wasted: ___ mg Plavix 75 mg, 1 No Longer [facility] tab, Route: Active 016 Medical PO, Drug Center form: TAB, Daily, Dosing Weight 104.33, kg, Start date: 06/06/16 14:23:00 CDT, Duration: 30 day, Stop date: 07/06/16 9:00:00 CDTNotes: (Same As: Plavix) Aspirin 325 mg, 1 No Longer [facility] tab, Route: Active 016 Medical PO, Drug Center form: TAB, Daily, Dosing Weight 104.33, kg, Start date: 06/06/16 14:23:00 CDT, Duration: 30 day, Stop date: 07/06/16 9:00:00 CDTNotes: Take with food. Adenosine 6 mg, Route: Inactive [facility] IV, ONCE, 016 Medical Dosing Center Weight 104.33, kg, Start date: 06/06/16 14:19:00 CDT, Stop date: 06/06/16 14:19:00 CDT Adenosine 6 mg, Route: Inactive [facility] IV, ONCE, 016 Medical Dosing Center Weight 104.33, kg, Start date: 06/06/16 14:17:00 CDT, Stop date: 06/06/16 14:17:00 CDT Morphine 2 mg, 1 mL, No Longer [facility] Route: IV, Active Medical Drug form: Center INJ, Q6H, Dosing Weight 104.33, kg, PRN as needed for chest pain, Start date: 06/06/16 14:00:00 CDT, Duration: 30 day, Stop date: 07/06/16 13:59:00 CDTNotes: (Same as:MORPhine Sulfate) metoprolol 25 mg, Inactive [facility] tartrate Route: PO, Medical Drug form: [place] TAB, ONCE, Dosing Weight 104.33, kg, Start date: 06/06/16 13:59:00 CDT, Stop date: 06/06/16 13:59:00 CDT vancomycin + 1.5 gm, Inactive [facility] sodium chloride Route: IVPB, [facility] Medical 0.9% INJ 250 mL ONCE, Start Center date: 06/06/16 11:12:00 CDT, Stop date: 06/06/16 11:12:00 CDTNotes: TIME CRITICAL MEDICATION (Same As: Vancocin) Infusion rate 2001 mg: infuse over 2.5 hours MEDICATION WASTE Product Size: 1000 mg Product Wasted: ___ mg Ceftazidime 1 gm, Route: Inactive [facility] IVPB, Drug 016 Medical form: Center PDR/INJ, [id number], Dosing Weight 104.33, kg, Start date: 06/06/16 11:00:00 CDT, Duration: 30 day, Stop date: 07/05/16 11:00:00 CDTNotes: (Same as: [place]) MEDICATION WASTE Product Size: 1000 mg Product Wasted: 0 mg venlafaxine 300 mg, 2 No Longer [facility] cap, Route: Active 016 Medical PO, Drug Center form: ERCAP, Daily, Dosing Weight 104.33, kg, Start date: 06/06/16 11:00:00 CDT, Duration: 30 day, Stop date: 07/06/16 9:00:00 CDT tiotropium 18 No Longer [facility] microgram, [address] [place] [address] inhalation, Center Route: INHALATION, Drug form: CAP, RDaily, Dosing Weight 104.33, kg, Start date: 06/06/16 11:00:00 CDT, Duration: 30 day, Stop date: 07/06/16 8:00:00 CDTNotes: (Same As: Spiriva) Lopressor 50 mg, 1 No Longer [facility] tab, Route: Active 016 Medical PO, Drug Center form: TAB, Q12H, Dosing Weight 104.33, kg, Start date: 06/06/16 11:00:00 CDT, Duration: 30 day, Stop date: 07/06/16 9:00:00 CDTNotes: (Same as: Lopressor) Losartan 100 mg, 1 Inactive [facility] tab, Route: 016 Medical PO, Drug Center form: TAB, Daily, Dosing Weight 104.33, kg, Start date: 06/06/16 11:00:00 CDT, Duration: 30 day, Stop date: 07/06/16 9:00:00 CDTNotes: (Same as: Cozaar) Dulcolax Laxative 10 mg, 1 No Longer [facility] supp, Route: Active 016 [facility] PA, Drug Center form: SUPP, Daily, Dosing Weight 104.33, kg, PRN Constipation , Start date: 06/06/16 10:50:00 CDT, Duration: 30 day, Stop date: 07/06/16 10:49:00 CDTNotes: (Same As: Dulcolax, Bisco-Lax) Insulin, Aspart, 10 unit, 0.1 No Longer [facility] Human mL, Route: Active 016 Medical [...] __Date Glucagon 1 mg, Route: No Longer [facility] IM, Drug Active 016 Medical form: Center PDR/INJ, PRN, Dosing Weight 104.33, kg, PRN Blood Glucose Results, Start date: 06/06/16 9:41:00 CDT, Duration: 30 day, Stop date: 07/06/16 9:40:00 CDT Dextrose 50% 25 gm, 50 No Longer [facility] Syringe mL, Route: Active 016 Medical IVP, Drug Center Form: INJ, Dosing Weight 104.33, kg, PRN, PRN Blood Glucose Results, Start date: 06/06/16 9:41:00 CDT, Duration: 30 day, Stop date: 07/06/16 9:40:00 CDT Ondansetron 4 mg, 2 mL, No Longer [facility] Route: IVP, Active 016 Medical Drug form: Center INJ, Q6H, Dosing Weight 104.33, kg, PRN Nausea & Vomiting, Start date: 06/06/16 9:39:00 CDT, Duration: 30 day, Stop date: 07/06/16 9:38:00 CDTNotes: (Same as: [place]) MEDICATION WASTE Product Size: 4 mg Product Wasted: _0__ mg venlafaxine 300 mg, PO, No Longer [facility] Daily, 0 Active 016 Medical Refill(s) Center donepezil 10 mg, PO, No Longer [facility] Bedtime, 0 Active 016 Medical Refill(s) Center clopidogrel 75 MG 75 mg=1 tab, No Longer [facility] Oral Tablet PO, Daily, 0 Active 016 Medical [Plavix] Refill(s) Center Levemir 22 unit, No Longer [facility] SUB-Q, 0 Active 016 Medical Refill(s) Center cholecalciferol 1,000 No Longer [facility] IntlUnit, 0 Active 016 Medical Refill(s) [place] Aspirin 325 mg, 0 No Longer [facility] Refill(s) Active 016 [facility] Center atorvastatin 40 mg, PO, No Longer [facility] Daily, 0 Active 016 Medical Refill(s) Center Amlodipine 10 mg, PO, No Longer [facility] Daily, 0 Active 016 Medical Refill(s) [place] tiotropium 18 No Longer [facility] microgram, Active 016 Medical INHALATION, Center Daily, 0 Refill(s) Prenavite FC oral 1 tab, PO, No Longer [facility] tablet Daily, 0 Active 016 Medical Refill(s) [place] losartan 100 mg 100 mg=1 No Longer [facility] oral tablet tab, PO, Active 016 Medical Daily, 0 Center Refill(s) Lorazepam 2 mg, PO, No Longer [facility] Q---Sa, Active 016 Medical 0 Refill(s) [place] Insulin, Aspart, 8 unit, No Longer [facility] Human SUB-Q, Active 016 Medical TID-Before [place] Meals, 0 Refill(s) Nitroglycerin 0.4 mg, SL, No Longer [facility] Q5Min, PRN Active 016 Medical as needed Center for chest pain, 0 Refill(s) lurasidone 80 mg 80 mg=1 tab, No Longer [facility] oral tablet PO, Daily, 0 Active 016 Medical Refill(s) [place] metoprolol 50 mg=1 tab, No Longer [facility] tartrate 50 mg PO, BID, # Active 016 Medical oral tablet 180 tab, 0 Center Refill(s) 12 HR ranolazine 1,000 mg=1 No Longer [facility] 1000 MG Extended tab, PO, Active 016 Medical Release Tablet BID, # 60 Center tab, 0 Refill(s) Pramipexole 0.25 mg=1 No Longer [facility] dihydrochloride tab, PO, Active 016 Medical 0.25 MG Oral Daily, 0 [place] Tablet [Mirapex] Refill(s) Geodon 40 mg, PO, No Longer [facility] Daily, 0 Active 016 Medical Refill(s) [place] Sodium Chloride 1,000 mL, Inactive [facility] 0.154 MEQ/ML 1,000 ml/hr, 016 Medical Injectable Infuse Over: [place] Solution 1 hr, Route: IV, ONCE, Priority: STAT, Dosing Weight 104.33 kg, Start date: 06/06/16 5:34:00 CDT, Duration: 1 doses or times, Stop date: 06/06/16 5:34:00 CDT Albuterol 0.833 9 mL, Route: Inactive [facility] MG/ML / NEB, Drug 016 Medical Ipratropium Form: SOLN, [place] 0.167 Dosing MG/ML Inhalant Weight Solution [DuoNeb] [...] Phosphorus 2.0 mg/dL 2.5 - 4.5 06/21 [facility] CHEM PANEL eGFR 38 06/21 Result Comment: The eGFR is calculated using the CKD-EPI formula. In most young, healthy individuals the eGFR will be >90 mL/ min/1.73m2. The eGFR declines with age. An eGFR of 60-89 may be normal in [facility] mL/min/1. /2015 some populations, particularly the elderly, for whom the CKD-EPI formula has not been extensively validated. Use of the eGFR is not recommended in the following populations: [address] Individuals with unstable creatinine concentrations, including [...] PANEL AGAP 11.7 meq/L 10.0 - 06/21 [facility] 20.0 [facility] CHEM PANEL CO2 26 meq/L 24 - 32 06/21 [facility] CHEM PANEL Calcium Lvl 7.8 mg/dL 8.5 - 10.5 06/21 [facility] CHEM PANEL Chloride Lvl 99 meq/L 95 - 109 06/21 [facility]2015 [facility] CHEM PANEL Creatinine 1.89 mg/dL 0.50 - 06/21 [facility] Lvl 1.40 [facility] CHEM PANEL Potassium Lvl 3.7 meq/L 3.5 - 5.1 06/21 2015 [facility] CHEM PANEL Sodium Lvl 133 meq/L 135 - 145 06/21 2015 [facility] CHEM PANEL Glucose Lvl 125 mg/dL 70 - 99 06/21 2015 [facility] CHEM PANEL BUN 23 mg/dL 06/[address] CHEM PANEL Magnesium Lvl 2.0 mg/dL 1.8 - 2.4 06/21 [facility]2015 [facility] TOXICOLOGY Vanco Lvl 21.1 ug/ml 06/[address] TOXICOLOGY Vanco Lvl 31.4 ug/ml 06/[address] CHEM PANEL BUN 35 mg/dL 06/[address] CHEM PANEL Creatinine 3.30 mg/dL 0.50 - 06/19 [facility] Lvl 1.40 [facility] CHEM PANEL Chloride Lvl 95 meq/L 95 - 109 06/[address] CHEM PANEL Potassium Lvl 4.4 meq/L 3.5 - 5.1 06/[address] CHEM PANEL Glucose Lvl 137 mg/dL 70 - 99 06/[address] CHEM PANEL Sodium Lvl 128 meq/L 135 - 145 06/19 [facility]2015 [facility] CHEM PANEL eGFR 20 06/19 Result Comment: The eGFR is calculated using the CKD-EPI formula. In most young, healthy individuals the eGFR will be >90 mL/ min/1.73m2. The eGFR declines with age. An eGFR of 60-89 may be normal in [facility] mL/min/1. some populations, particularly the elderly, for whom the CKD-EPI formula has not been extensively validated. Use of the eGFR is not recommended in the following populations: [address] Individuals with unstable creatinine concentrations, including [...] CO2 21 meq/L 24 - 32 06/19 [facility] CHEM PANEL Calcium Lvl 8.2 mg/dL 8.5 - 10.5 06/19 [facility] CHEM PANEL AGAP 16.4 meq/L 10.0 - 06/19 20.0 [facility] HEMATOLOGY MCH 29.1 pg 27.0 - 06/19 [place] 31.0 [facility] HEMATOLOGY MCV 86.5 fL 80.0 - 06/19 [place] 94.0 [facility] HEMATOLOGY Hct 22.1 % 42.0 - 06/19 54.0 [facility] HEMATOLOGY Hgb 7.4 g/dL 14.0 - 06/19 18.0 [facility] HEMATOLOGY RBC 2.56 M/CMM 4.70 - 06/19 [place] 6.10 [facility] HEMATOLOGY WBC 22.6 K/CMM 3.7 - 10.4 06/19 [facility] HEMATOLOGY RDW 14.5 % 11.5 - 06/19 14. [facility] HEMATOLOGY MCHC 33.7 g/dL 32.0 - 06/19 [place] 36.0 [facility] HEMATOLOGY Platelet 387 K/CMM 133 - 450 06/19 [facility] HEMATOLOGY MPV 8.3 fL 7.4 - 10.4 06/19 [facility] HEMATOLOGY Lymphocytes 7.8 % 20.0 - 06/19 [place] 40.0 [facility] HEMATOLOGY Segs 84.0 % 45.0 - 06/19 [place] 75.0 [facility] HEMATOLOGY Basophils # 0.1 K/CMM 0.0 - 0.2 06/19 [facility] HEMATOLOGY Monocytes # 1.5 K/CMM 0.0 - 0.8 06/19 [facility] HEMATOLOGY Lymphocytes # 1.8 K/CMM 1.0 - 5.5 06/19 [facility] HEMATOLOGY Eosinophils # 0.2 K/CMM 0.0 - 0.5 06/19 [facility] HEMATOLOGY Monocytes 6.8 % 2.0 - 12.0 06/19 [facility] HEMATOLOGY Segs-Bands # 18.9 K/CMM 1.5 - 8.1 06/19 [facility] HEMATOLOGY Basophils 0.4 % 0.0 - 1.0 06/19 [facility] HEMATOLOGY Eosinophils 1.0 % 0.0 - 4.0 06/19 [facility] TOXICOLOGY Vanco Lvl 16.5 ug/ml 06/19 [facility] ELECTROLYTE AGAP 11.8 meq/L 10.0 - 06/17 [facility] 20.0 [facility] ELECTROLYTE eGFR 33 06/17 Result Comment: The eGFR is calculated using the CKD-EPI formula. In most young, healthy individuals the eGFR will be >90 mL/ min/1.73m2. The eGFR declines with age. An eGFR of 60-89 may be normal in [facility] mL/min/1. some populations, particularly the elderly, for whom the CKD-EPI formula has not been extensively validated. Use of the eGFR is not recommended in the following populations: [address] Individuals with unstable creatinine concentrations, including [...] ELECTROLYTE BUN 30 mg/dL 7 - 06/17 [facility] ELECTROLYTE Glucose Lvl 85 mg/dL 70 - 99 06/17 [facility] ELECTROLYTE Chloride Lvl 100 meq/L 95 - 109 06/17 [facility] ELECTROLYTE Potassium Lvl 3.8 meq/L 3.5 - 5.1 06/17 [facility] ELECTROLYTE CO2 28 meq/L 24 - 32 06/17 [facility]2015 [facility] ELECTROLYTE Creatinine 2.17 mg/dL 0.50 - 06/17 [facility] Lvl 1.40 [facility] ELECTROLYTE Sodium Lvl 136 meq/L 135 - 145 06/17 [facility] ELECTROLYTE Calcium Lvl 8.3 mg/dL 8.5 - 10.5 06/17 [facility] S [facility] HEMATOLOGY RBC 2.61 M/CMM 4.70 - 06/17 6.10 [facility] HEMATOLOGY MCHC 33.7 g/dL 32.0 - 06/17 36.0 [facility] HEMATOLOGY RDW 14.4 % 11.5 - 06/17 14. [facility] HEMATOLOGY Platelet 331 K/CMM 133 - 450 06/17 [facility] HEMATOLOGY MPV 8.7 fL 7.4 - 10.4 06/17 [facility] HEMATOLOGY Hgb 7.5 g/dL 14.0 - 06/17 18.0 [facility] HEMATOLOGY Hct 22.2 % 42.0 - 06/17 54.0 [facility] HEMATOLOGY MCV 85.3 fL 80.0 - 06/17 94.0 [facility] HEMATOLOGY MCH 28.8 pg 27.0 - 06/17 31.0 [facility] HEMATOLOGY WBC 19.1 K/CMM 3.7 - 10.4 06/17 [facility] HEMATOLOGY Eosinophils # 0.1 K/CMM 0.0 - 0.5 06/17 [facility] HEMATOLOGY Monocytes # 1.6 K/CMM 0.0 - 0.8 06/17 [facility] HEMATOLOGY Lymphocytes # 1.6 K/CMM 1.0 - 5.5 06/17 [facility] HEMATOLOGY Segs-Bands # 15.8 K/CMM 1.5 - 8.1 06/17 [facility] HEMATOLOGY Basophils 0.4 % 0.0 - 1.0 06/17 [facility] HEMATOLOGY Basophils # 0.1 K/CMM 0.0 - 0.2 06/17 [facility] HEMATOLOGY Segs 82.3 % 45.0 - 06/17 75.0 [facility] HEMATOLOGY Eosinophils 0.5 % 0.0 - 4.0 06/17 [facility] HEMATOLOGY Monocytes 8.6 % 2.0 - 12.0 06/17 [facility] HEMATOLOGY Lymphocytes 8.2 % 20.0 - 06/17 40.0 [facility] BLOOD BANK RBC product Product available 06/16 [facility] (06/16/16 7:16 AM) [place] HEMATOLOGY Polychrom slight 06/16 [facility] HEMATOLOGY Plt Morph Normal 06/16 Medical (06/16/16 4:18 AM) [place] HEMATOLOGY Atypical 0.0 % <=0.0 % 06/16 [facility] Lymph [facility] HEMATOLOGY Monocytes 5.0 % 2.0 - 12.0 06/16 [facility] HEMATOLOGY Metamyelocyte 1.0 % 0.0 - 1.0 06/16 [facility] s [facility] HEMATOLOGY Lymphocytes 5.0 % 20.0 - 06/16 [place] 40.0 [facility] HEMATOLOGY Monocytes # 1.5 K/CMM 0.0 - 0.8 06/16 [facility] HEMATOLOGY Segs 87.0 % 45.0 - 06/16 [place] 75.0 [facility] HEMATOLOGY Bands 2.0 % 0.0 - 11.0 06/16 [facility] HEMATOLOGY Lymphocytes # 1.5 K/CMM 1.0 - 5.5 06/16 [facility] HEMATOLOGY Segs-Bands # 26.3 K/CMM 1.5 - 8.1 06/16 [facility] HEMATOLOGY Platelet 338 K/CMM 133 - 450 06/16 [facility] HEMATOLOGY MCHC 32.6 g/dL 32.0 - 06/16 [place] 36.0 [facility] HEMATOLOGY MPV 8.4 fL 7.4 - 10.4 06/16 [facility] HEMATOLOGY RDW 14.4 % 11.5 - 06/16 14.5 [facility] HEMATOLOGY MCV 84.7 fL 80.0 - 06/16 94.0 [facility] HEMATOLOGY Hct 20.7 % 42.0 - 06/16 [place] 54.0 2016 [facility] HEMATOLOGY Hgb 6.8 g/dL 14.0 - 06/16 Result [facility] 18. Comment: [facility] Result(s) called to tristan dubon at 06/16/2016 05:01_ by_aa. Read back OK. HEMATOLOGY RBC 2.44 M/CMM 4.70 - 06/16 [place] 6.10 [facility] HEMATOLOGY MCH 27.6 pg 27.0 - 06/16 [place] 31.0 [facility] HEMATOLOGY WBC 29.5 K/CMM 3.7 - 10.4 06/16 [facility] /2015 [facility] CVC insert CVC insert STUDY: VIR CV Catheter Placement Tunneled 06/15 - [facility] tunnel tunnel w/-w/o /2015 - Medical w/-w/o port/pump age This report was dictated by a Tile Shader /Fellow. I have personally reviewed the images [...] ultrasound and fluoroscopic guided placement of a16 [place] 23 cm to tip hemodialysis catheter into the right internal jugular vein. 2. Moderate sedation [employer] OPERATOR: Vincent Gamino BARREL ASSEMBLER HELPER(S): Dr. Bravo CONSENT: Written consent obtained after [...] jugular vein. 2. Successful placement of 16 [place] 23 cm right internal jugular vein hemodialysis catheter. COMPLICATIONS: None ESTIMATED BLOOD LOSS: None FLUOROSCOPIC TIME: 0.3 minutes RADIATION DOSE: 6 mGy CONTRAST VOLUME: None IMPRESSION: Successful ultrasound and fluoroscopic guided placement of a right internal jugular vein 16 [place] tunneled 23 cm cuff to tip hemodialysis catheter. The line is ready for immediate use. PLAN/FOLLOW UP: None Dr. Bravo, IR Attending, was present for the procedure. BLOOD BANK RBC product Product available 06/15 [facility] (06/15/16 12:25 AM) Center IMMUNOLOGY H pylori IgG 0.7 06/15 [facility] unit/mL [facility] CHEM PANEL Lactic Acid 1.7 mMol/L 0.5 - 2.2 06/14 [facility] CHEM PANEL Procalcitonin 1.04 ng/mL 0.00 - 06/14 [facility] 0. [facility] CHEM PANEL Phosphorus 4.6 mg/dL 2.5 - 4.5 06/14 [facility] CHEM PANEL Procalcitonin 1.04 ng/mL 0.00 - 06/14 [facility] 0. [facility] HEMATOLOGY Metamyelocyte 2.0 % 0.0 - 1.0 06/14 [facility] s [facility] HEMATOLOGY Bands 1.0 % 0.0 - 11.0 06/14 [facility] HEMATOLOGY Tot Cell Ct 200 06/14 [facility] HEMATOLOGY Plt Morph Normal 06/14 [facility] (06/14/16 2:21 AM) [place] HEMATOLOGY RBC Morph Normal 06/14 [facility] (06/14/16 2:21 AM) [place] HEMATOLOGY Atypical 0.0 % <=0.0 % 06/14 [facility] Lymphs [facility] BLOOD BANK ABO/Rh O POS 06/14 [place] RESULTS [facility] BLOOD BANK Antibody Scrn Negative 06/14 [place] RESULTS Medical (06/13/16 10:25 PM) Center BODY FLUIDS Sebastián Occult Positive Negative 06/14 [facility] Bld [facility] *ABN* Center (06/13/16 10:22 PM) HEMATOLOGY Basophils 0.1 % 0.0 - 1.0 06/14 /2015 [facility] HEMATOLOGY PTT 40.7 s 22.9 - 06/14 [place] 35.8 [facility] HEMATOLOGY INR 1.13 0.85 - 06/14 [place] 1.17 /2015 [facility] HEMATOLOGY PT 14.8 s 12.0 - 06/14 [facility] 14.7 [facility] Abdomen AP Abdomen AP DX EXAM: XR ABDOMEN 1 VIEW 06/13 - [facility] DX - [facility] This report was dictated by a Tile Shader/Fellow. I have personally reviewed the images as [...] Lvl 2.0 g/dL 3.5 - 5.0 06/13 [facility] CHEM PANEL Total Protein 6.4 g/dL 6.4 - 8.4 06/13 [facility] CHEM PANEL A/G Ratio 0.5 0.7 - 1.6 06/13 [facility] CHEM PANEL Globulin 4.4 g/dL 2.7 - 4.2 06/13 [facility] CHEM PANEL Alk Phos 319 unit/L 39 - 136 06/13 [facility] CHEM PANEL B/C Ratio 16 6 - 25 06/[address] CHEM PANEL AST 18 unit/L 0 - 37 06/13 [facility]2015 [facility] CHEM PANEL ALT 26 unit/L 0 - 65 06/[address] CHEM PANEL Bili Total 0.4 mg/dL 0.2 - 1.3 06/[address] HEMATOLOGY Eosinophils 0.4 % 0.0 - 4.0 06/13 [facility]2015 [facility] HEMATOLOGY Plt Morph Normal 06/13 [facility] (06/13/16 12:38 AM) [place] HEMATOLOGY Eosinophils # 0.1 K/CMM 0.0 - 0.5 06/[address] CVC remove CVC remove STUDY: Tunneled hemodialysis catheter removal 06/12 [facility] tunnel tunnel w/-w/o /2015 - [facility] w/-w/o port/pump [facility] [...] compressed for short while and hemostasis obtained. [employer] OPERATOR: Lawrence BARREL ASSEMBLER HELPER(S): CONSENT: Written consent obtained after discussing the [...] B/C Ratio 18 6 - 25 06/[address] CHEM PANEL Globulin 4.9 g/dL 2.7 - 4.2 06/[address] CHEM PANEL A/G Ratio 0.4 0.7 - 1.6 06/12 [facility] /[address] [place] [address] CHEM PANEL Bili Total 0.4 mg/dL 0.2 - 1.3 06/12 2015 [facility] CHEM PANEL AST 18 unit/L 0 - 37 06/12 [facility]2015 [facility] CHEM PANEL Alk Phos 401 unit/L 39 - 136 06/[address] CHEM PANEL Total Protein 7.0 g/dL 6.4 - 8.4 06/12 [facility]2015 [facility] CHEM PANEL ALT 24 unit/L 0 - 65 06/12 [facility]2015 [facility] CHEM PANEL Albumin Lvl 2.1 g/dL 3.5 - 5.0 06/12 [facility]2015 [facility] CHEM PANEL Lactic Acid 0.8 mMol/L 0.5 - 2.2 06/10 [facility] CHEM PANEL Globulin 4.6 g/dL 2.7 - 4.2 06/[address] CHEM PANEL B/C Ratio 12 6 - 25 06/[address] CHEM PANEL A/G Ratio 0.4 0.7 - 1.6 06/[address] CHEM PANEL Total Protein 6.5 g/dL 6.4 - 8.4 06/[address] CHEM PANEL Albumin Lvl 1.9 g/dL 3.5 - 5.0 06/[address] CHEM PANEL ALT 22 unit/L 0 - 65 06/[address] CHEM PANEL AST 22 unit/L 0 - 37 06/[address] CHEM PANEL Alk Phos 352 unit/L 39 - 136 06/[address] CHEM PANEL Bili Total 0.4 mg/dL 0.2 - 1.3 06/[address] CHEM PANEL Lactic Acid 0.9 mMol/L 0.5 - 2.2 06/08 [facility] CARDIAC Troponin-I 0.07 ng/mL 0.00 - 06/07 [facility] ENZYMES 0. [facility] CHEM PANEL Phosphorus 3.7 mg/dL 2.5 - 4.5 06/[address] CHEM PANEL Magnesium Lvl 2.1 mg/dL 1.8 - 2.4 06/07 [facility]2015 [facility] HEMATOLOGY INR 1.32 0.85 - 06/07 [facility] [place] 1. [facility] HEMATOLOGY PTT 49.3 s 22.9 - 06/07 [facility] 35.8 /2015 [facility] HEMATOLOGY PT 16.7 s 12.0 - 06/07 [facility] 14.7 [facility] BACTERIAL - MRSA by PCR Positive 1 06/07 Result [facility] SEROLOGY Comment: Medical *ABN* "Significant Center Findings (06/07/16 1:46 AM) called to Anca Ward_at 06/07/2016 13:25 by bf. Read Back OK." URINE AND UA Sq Epi RARE 06/07 [facility] URINE AND UA WBC 8 /HPF 0 - 5 06/07 [facility] URINE AND UA RBC 3 /HPF 0 - 2 06/07 [facility] URINE AND UA Bacteria Occasional None Seen 06/07 [facility] /HPF /HPF /2015 [facility] URINE AND UA Hyal Cast 3 /LPF 0 - 2 06/07 [facility] URINE AND UA Mucus Few /LPF None Seen 06/07 [facility] STOOL /LPF /2015 [facility] URINE AND UA 0.2 EU/dL 0.1 - 1.0 06/07 [facility] Urobilinogen /2015 [facility] URINE AND UA Nitrite Negative Negative 06/07 [facility] (06/06/16 11:32 PM) [place] URINE AND UA Leuk Est Negative Negative 06/07 [facility] (06/06/16 11:32 PM) [place] URINE AND UA Blood Trace Negative 06/07 [facility] Medical *ABN* [place] (06/06/16 11:32 PM) URINE AND UA Bili Negative Negative 06/07 [facility] Medical *NA* [place] (06/06/16 11:32 PM) URINE AND UA pH 7.0 5.0 - 8.0 06/07 [facility] URINE AND UA Protein 100 mg/dL Negative 06/07 [facility] mg/dL [facility] URINE AND UA Turbidity Clear Clear 06/07 [facility] (06/06/16 11:32 PM) [place] URINE AND UA Spec Grav 1.020 <=1.030 06/07 [facility] URINE AND UA Ketones Negative Negative 06/07 [facility] Medical *NA* Center (06/06/16 11:32 PM) URINE AND UA Glucose Negative Negative 06/07 [facility] STOOL Medical (06/06/16 11:32 PM) [place] URINE AND UA Color Yellow Yellow 06/07 [facility] STOOL [facility] *NA* [place] (06/06/16 11:32 PM) CARDIAC Troponin-I 0.12 ng/mL 0.00 - 06/07 [facility] ENZYMES 0.40 [facility] IMMUNOLOGY Hep Bs Ab 20.5 <=7.4 06/06 [facility] mIU/mL mIU/mL [facility] IMMUNOLOGY Hep B Core Ab Negative Negative 06/06 [facility] *NA* [place] (06/06/16 3:44 PM) IMMUNOLOGY Hep C Ab Negative 06/06 [facility]* [place] (06/06/16 3:44 PM) IMMUNOLOGY Hep Bs Ag Negative Negative [facility] [place] (06/06/16 3:44 PM) CARDIAC Troponin-I null 0.00 - 06/06 [facility] ENZYMES 0.40 [facility] CHEM PANEL Magnesium Lvl 1.7 mg/dL 1.8 - 2.4 06/06 [facility] HEMATOLOGY Bands 0.0 % 0.0 - 11.0 06/06 [facility] HEMATOLOGY Atypical 0.0 % <=0.0 % 06/06 [facility] Lymphs [facility] PARATHYROID Ca Ion WB 1.18 1.05 - 06/06 [facility] PROFILE mMol/L 1. [facility] PARATHYROID Ca Norm WB 1.15 1.05 - 06/06 [facility] PROFILE mMol/L 1. [facility] CARDIAC Troponin-T 0.050 0.000 - 06/06 [facility] ENZYMES ng/mL 0.100 [facility] CARDIAC Troponin-T 0.036 0.000 - 06/06 [facility] ENZYMES ng/mL 0.100 [facility] CARDIAC Total CK 43 unit/L 12 - 191 06/06 [facility] HEMATOLOGY Sed Rate >100 mm/hr 0 - 15 06/06 [facility]2015 [facility] HEMATOLOGY Estimated % 1.2 % 0.0 - 7.5 06/06 [facility] Lysis [facility] HEMATOLOGY ACT (TEG) 128 s 86 - 118 06/06 [facility] Rapid [facility] HEMATOLOGY Angle Rapid 80 degrees 64 - 80 06/06 [facility] HEMATOLOGY Max Amplitude 78 mm 52 - 71 06/06 [facility] HEMATOLOGY G-value Rapid 17.6 K 5.0 - 11.6 06/06 [facility] d/sc /2015 [facility] HEMATOLOGY [place] 0.7 min 06/06 [facility] [facility] HEMATOLOGY R-time Rapid 0.8 min 0.4 - 0.7 06/06 [facility] HEMATOLOGY K-time Rapid 0.8 min 0.6 - 2.3 06/06 /2015 [facility] HEMATOLOGY PT 14.6 s 12.0 - 06/06 [facility] 14.7 [facility] HEMATOLOGY PTT 49.0 s 22.9 - 06/06 [facility] 35.8 [facility] HEMATOLOGY INR 1.11 0.85 - 06/06 [facility] 1. [facility] HEMATOLOGY RBC Morph Normal 06/06 [facility] (06/06/16 3:15 AM) [place] HEMATOLOGY Tot Cell Ct 100 06/06 [facility] HEMATOLOGY Basophils # 0.1 K/CMM 0.0 - 0.2 06/06 [facility] IMMUNOLOGY C-REACTIVE 251.0 mg/L <=2.9 mg/L 06/06 [facility] PROTEIN [facility] BLOOD BANK Antibody Scrn Negative 06/06 [facility] RESULTS [facility] (06/06/16 3:00 AM) [place] BLOOD BANK ABO/Rh O POS 06/06 [facility] RESULTS [facility] Spine Spine lumbar EXAM: MRI LUMBAR SPINE WITHOUT CONTRAST 06/06 - [facility] lumbar wo wo /2015 - [facility] contrast MRI Center MRI [...] CT ABDOMEN AND PELVIS WITHOUT CONTRAST - [facility] wo IV s wo IV /2015 - [facility] contrast [facility] contrast CT Center DATE: 06/06/2016 3:02 AM CDT Read by: Guanakito Bledsoe Dictated Date/time: 06/06/16 08:43 Electronically Signed by: [place] Bledsoe 06/06/16 08:51 FINAL REPORT INDICATION: Fever [...] 1view EXAM: Chest 1view DX 06/06 - [facility] DX DX /2016 [facility] DATE: 06/06/2016 0318 hours CDT Read [...] Date Comments Source Heart Rate 104 06/21/2016 [facility] Respitory Rate 20 06/21/2016 [facility] Systolic (mm Hg) 160 06/21/2016 [facility] Diastolic (mm Hg) 70 06/21/2016 [facility] Temperature Oral (F) 97.7 F 06/21/2016 [facility] Respitory Rate 16 06/21/2016 [facility] Temperature Oral (F) 96.5 F 06/21/2016 [facility] Systolic (mm Hg) 143 06/21/2016 [facility] Diastolic (mm Hg) 71 06/21/2016 [facility] Respitory Rate 16 06/21/2016 [facility] Heart Rate 94 06/21/2016 [facility] Temperature Oral (F) 96.9 F 06/21/2016 [facility] Heart Rate 87 06/21/2016 [facility] Systolic (mm Hg) 145 06/21/2016 [facility] Diastolic (mm Hg) 69 06/21/2016 [facility] Height 170.18 cm 06/06/2016 [facility] Weight 104.33 06/06/2016 [facility] Weight 104.33 06/06/2016 [facility] Encounters Location Location Encounter Encounter Reason Attending ADM DC Status Source Details Type Number For Provider Date Date Visit [facility] Inpatient [id number] Marisel Coyle 06/06 06/21 DO [place] /2015 [facility] Procedures Procedure Code Date Perfomer Comments Source
--- OUTSIDE RECORDS SUMMARY | 2018-11-07 11:08 | XMS REPORT ---
:1960 [facility] Address [address] [place] [address] Care Team Providers Name Role Phone CAIO JONES Unavailable Unavailable MARYELLEN ZENG Unavailable Unavailable JESSIKA HUMPHREY Unavailable Unavailable Problems This patient has no known problems. Allergies, Adverse Reactions, Alerts This patient has no known allergies or adverse reactions. Medications This patient has no known medications. Results Test Description Test Time Test Comments Text Results Atomic Results Result Comments POCT-GLUCOSE METER 2018-11-06 16:45:00 Test Item Value Reference Range Comments POC-GLUCOSE METER (BEAKER) (test 124 mg/dL 70-110 TESTED AT [facility] [address] [facility] dcye=2345) [facility] [address] CBC W/PLT COUNT & AUTO [id number] 13:03:00 Test Item Value Reference Range Comments WHITE BLOOD CELL COUNT (BEAKER) (test xokw=400) 20.6 K/ L 3.5-10.5 RED BLOOD CELL COUNT (BEAKER) (test qfvz=693) 3.09 M/ L 4.63-6.08 HEMOGLOBIN (BEAKER) (test avhd=782) 8.1 GM/DL 13.7-17.5 HEMATOCRIT (BEAKER) (test nugl=031) 28.0 % 40.1-51.0 MEAN CORPUSCULAR VOLUME (BEAKER) (test ejek=281) 90.6 fL 79.0-92.2 MEAN CORPUSCULAR HEMOGLOBIN (BEAKER) (test 26.2 pg 25.7-32.2 nivw=958) MEAN CORPUSCULAR HEMOGLOBIN CONC (BEAKER) (test 28.9 GM/DL 32.3-36.5 gpua=447) RED CELL DISTRIBUTION WIDTH (BEAKER) (test 19.9 % 11.6-14.4 zqwk=325) PLATELET COUNT (BEAKER) (test qdrc=867) 328 K/CU MM 150-450 MEAN PLATELET VOLUME (BEAKER) (test vigg=055) 9.8 fL 9.4-12.4 NUCLEATED RED BLOOD CELLS (BEAKER) (test 0 /100 WBC 0-0 nesq=805) (CELLAVISION MANUAL DIFF)2018-11-06 13:03:00 Test Item Value Reference Range Comments NEUTROPHILS - REL (CELLAVISION)(BEAKER) (test 89 % yujy=5223) LYMPHOCYTES - REL (CELLAVISION)(BEAKER) (test 2 % elpw=0915) MONOCYTES - REL (CELLAVISION)(BEAKER) (test 7 % weom=7836) EOSINOPHILS - REL (CELLAVISION)(BEAKER) (test 2 % vmvh=5574) NEUTROPHILS - ABS (CELLAVISION)(BEAKER) (test 18.33 K/ul 1.78-5.38 ncds=9376) LYMPHOCYTES - ABS (CELLAVISION)(BEAKER) (test 0.41 K/ul 1.32-3.57 pzdm=1856) MONOCYTES - ABS (CELLAVISION)(BEAKER) (test 1.44 K/uL 0.30-0.82 lhre=2215) EOSINOPHILS - ABS (CELLAVISION)(BEAKER) (test 0.41 K/uL 0.04-0.54 ntjz=8013) TOTAL COUNTED (BEAKER) (test czuf=7132) 100 WBC MORPHOLOGY (BEAKER) (test rhwn=608) Normal PLT MORPHOLOGY (BEAKER) (test ntbn=453) Normal POLYCHROMATOPHILLIC RBCS(BEAKER) (test ebro=935) 1+ few ANISOCYTOSIS (BEAKER) (test ufdg=913) 1+ few POIKILOCYTES (BEAKER) (test frwm=654) 1+ few ARTIFACT (CELLAVISION)(BEAKER) (test vlid=3258) Present PLATELET CONCENTRATION (CELLAVISION)(BEAKER) Adequate (test ttpq=8044) Received comment: User comments: Slide comments:POCT-GLUCOSE [id number] 08: 23:00 Test Item Value Reference Range Comments POC-GLUCOSE METER (BEAKER) 126 mg/dL 70-110 TESTED AT [address] (test glhi=0646) [place] [id number] POCT-GLUCOSE [id number] 07:38:00 Test Item Value Reference Range Comments POC-GLUCOSE METER (BEAKER) 78 mg/dL 70-110 TESTED AT [address] (test cgdq=8650) [place] [id number] BASIC METABOLIC [id number] 07:16:00 Test Item Value Reference Range Comments SODIUM (BEAKER) (test 140 meq/L 136-145 owkf=697) POTASSIUM (BEAKER) (test 4.0 meq/L 3.5-5.1 mltd=967) CHLORIDE (BEAKER) (test 101 meq/L 98-107 xgdi=373) CO2 (BEAKER) (test 29 meq/L 22-29 chme=356) BLOOD UREA NITROGEN 34 mg/dL 7-21 (BEAKER) (test yobm=464) CREATININE (BEAKER) (test 2.69 mg/dL 0.57-1.25 jcaz=476) GLUCOSE RANDOM (BEAKER) 83 mg/dL 70-105 (test impb=271) CALCIUM (BEAKER) (test 9.7 mg/dL 8.4-10.2 lnni=088) EGFR (BEAKER) (test 24 mL/min/1.73 sq m ESTIMATED GFR IS NOT jpej=9494) ACCURATE CREATININE CLEARANCE IN PREDICTING GLOMERULAR FILTRATION RATE. ESTIMATED GFR IS NOT APPLICABLE FOR DIALYSIS PATIENTS. POCT-GLUCOSE [id number] 21:46:00 Test Item Value Reference Range Comments POC-GLUCOSE METER (BEAKER) 119 mg/dL 70-110 TESTED AT [address] (test nrmo=0673) [place] [id number] POCT-GLUCOSE [id number] 17:26:00 Test Item Value Reference Range Comments POC-GLUCOSE METER (BEAKER) 176 mg/dL 70-110 TESTED AT [address] (test bdrh=5565) [place] [id number] POCT-GLUCOSE [id number] 12:46:00 Test Item Value Reference Range Comments POC-GLUCOSE METER (BEAKER) 105 mg/dL 70-110 TESTED AT [address] (test mhjw=9226) [place] [address] CBC W/PLT COUNT & AUTO [id number] 11:07:00 Test Item Value Reference Range Comments WHITE BLOOD CELL COUNT (BEAKER) (test tzhu=570) 17.8 K/ L 3.5-10.5 RED BLOOD CELL COUNT (BEAKER) (test tevb=301) 3.00 M/ L 4.63-6.08 HEMOGLOBIN (BEAKER) (test xntv=863) 7.8 GM/DL 13.7-17.5 HEMATOCRIT (BEAKER) (test qewx=744) 26.9 % 40.1-51.0 MEAN CORPUSCULAR VOLUME (BEAKER) (test siiu=540) 89.7 fL 79.0-92.2 MEAN CORPUSCULAR HEMOGLOBIN (BEAKER) (test 26.0 pg 25.7-32.2 fcdl=608) MEAN CORPUSCULAR HEMOGLOBIN CONC (BEAKER) (test 29.0 GM/DL 32.3-36.5 pgrp=411) RED CELL DISTRIBUTION WIDTH (BEAKER) (test 19.5 % 11.6-14.4 mhob=400) PLATELET COUNT (BEAKER) (test mhsj=627) 330 K/CU MM 150-450 MEAN PLATELET VOLUME (BEAKER) (test zblo=694) 10.4 fL 9.4-12.4 NUCLEATED RED BLOOD CELLS (BEAKER) (test 0 /100 WBC 0-0 kzgg=759) (CELLAVISION MANUAL DIFF)2018-11-05 11:07:00 Test Item Value Reference Range Comments NEUTROPHILS - REL (CELLAVISION)(BEAKER) (test 86 % egkk=7412) LYMPHOCYTES - REL (CELLAVISION)(BEAKER) (test 6 % eyfb=3053) MONOCYTES - REL (CELLAVISION)(BEAKER) (test 2 % psgi=6968) EOSINOPHILS - REL (CELLAVISION)(BEAKER) (test 4 % uwzz=3342) BASOPHILS - REL (CELLAVISION)(BEAKER) (test 2 % xxmk=2478) NEUTROPHILS - ABS (CELLAVISION)(BEAKER) (test 15.31 K/ul 1.78-5.38 ocjj=4497) LYMPHOCYTES - ABS (CELLAVISION)(BEAKER) (test 1.07 K/ul 1.32-3.57 xqca=1397) MONOCYTES - ABS (CELLAVISION)(BEAKER) (test 0.36 K/uL 0.30-0.82 hgsn=0275) EOSINOPHILS - ABS (CELLAVISION)(BEAKER) (test 0.71 K/uL 0.04-0.54 bjaf=3250) BASOPHILS - ABS (CELLAVISION)(BEAKER) (test 0.36 K/uL 0.01-0.08 qwdy=6497) TOTAL COUNTED (BEAKER) (test kjmq=0167) 100 WBC MORPHOLOGY (BEAKER) (test thta=360) Normal PLT MORPHOLOGY (BEAKER) (test dbai=419) Normal ANISOCYTOSIS (BEAKER) (test znzl=340) 1+ few MACROCYTES (BEAKER) (test rgnq=236) 1+ few ARTIFACT (CELLAVISION)(BEAKER) (test avrv=3236) Present PLATELET CONCENTRATION (CELLAVISION)(BEAKER) Adequate (test kmrw=1638) Received comment: User comments: Slide comments:POCT-GLUCOSE [id number] 08: 44:00 Test Item Value Reference Range Comments POC-GLUCOSE METER (BEAKER) 137 mg/dL 70-110 TESTED AT [address] (test qolb=0519) [facility] [address] BASIC METABOLIC [id number] 06:41:00 Test Item Value Reference Range Comments SODIUM (BEAKER) (test 134 meq/L 136-145 qrkp=065) POTASSIUM (BEAKER) (test 5.2 meq/L 3.5-5.1 trvz=130) CHLORIDE (BEAKER) (test 97 meq/L 98-107 hqrc=705) CO2 (BEAKER) (test 24 meq/L 22-29 livw=809) BLOOD UREA NITROGEN 52 mg/dL 7-21 (BEAKER) (test mbbe=675) CREATININE (BEAKER) (test 4.18 mg/dL 0.57-1.25 wfmg=267) GLUCOSE RANDOM (BEAKER) 68 mg/dL 70-105 (test ihpz=520) CALCIUM (BEAKER) (test 10.0 mg/dL 8.4-10.2 bufc=685) EGFR (BEAKER) (test 15 mL/min/1.73 sq m ESTIMATED GFR IS NOT zvpu=1593) ACCURATE CREATININE CLEARANCE IN PREDICTING GLOMERULAR FILTRATION RATE. ESTIMATED GFR IS NOT APPLICABLE FOR DIALYSIS PATIENTS. [id number] 06:23:00 Test Item Value Reference Range Comments PHOSPHORUS (BEAKER) (test ygnb=914) 6.9 mg/dL 2.3-4.7 [id number] 06:23:00 Test Item Value Reference Range Comments MAGNESIUM (BEAKER) (test nrxi=779) 2.3 mg/dL 1.6-2.6 POCT-GLUCOSE [id number] 01:02:00 Test Item Value Reference Range Comments POC-GLUCOSE METER (BEAKER) 151 mg/dL 70-110 TESTED AT [address] (test pobw=1361) [place] [address] POCT-GLUCOSE [id number] 17:07:00 Test Item Value Reference Range Comments POC-GLUCOSE METER (BEAKER) 126 mg/dL 70-110 TESTED AT [address] (test fqmu=7328) [place] [address] [id number] 14:52:00 Test Item Value Reference Range Comments PHOSPHORUS (BEAKER) (test owtk=632) 5.7 mg/dL 2.3-4.7 POCT-GLUCOSE [id number] 12:06:00 Test Item Value Reference Range Comments POC-GLUCOSE METER (BEAKER) 130 mg/dL 70-110 TESTED AT [address] (test lamx=2615) [place] [address] CBC W/PLT COUNT & AUTO [id number] 09:24:00 Test Item Value Reference Range Comments WHITE BLOOD CELL COUNT (BEAKER) (test siqi=253) 23.0 K/ L 3.5-10.5 RED BLOOD CELL COUNT (BEAKER) (test tvrw=073) 3.05 M/ L 4.63-6.08 HEMOGLOBIN (BEAKER) (test fvqc=099) 7.9 GM/DL 13.7-17.5 HEMATOCRIT (BEAKER) (test szkn=837) 27.6 % 40.1-51.0 MEAN CORPUSCULAR VOLUME (BEAKER) (test aqyw=497) 90.5 fL 79.0-92.2 MEAN CORPUSCULAR HEMOGLOBIN (BEAKER) (test 25.9 pg 25.7-32.2 gaiu=433) MEAN CORPUSCULAR HEMOGLOBIN CONC (BEAKER) (test 28.6 GM/DL 32.3-36.5 epzi=502) RED CELL DISTRIBUTION WIDTH (BEAKER) (test 19.9 % 11.6-14.4 ywlu=412) PLATELET COUNT (BEAKER) (test usmo=159) 348 K/CU MM 150-450 MEAN PLATELET VOLUME (BEAKER) (test hmzo=695) 9.8 fL 9.4-12.4 NUCLEATED RED BLOOD CELLS (BEAKER) (test 0 /100 WBC 0-0 icse=845) (CELLAVISION MANUAL DIFF)2018-11-04 09:24:00 Test Item Value Reference Range Comments NEUTROPHILS - REL (CELLAVISION)(BEAKER) (test 85 % qlbe=4533) LYMPHOCYTES - REL (CELLAVISION)(BEAKER) (test 5 % xezg=1259) MONOCYTES - REL (CELLAVISION)(BEAKER) (test 10 % odxy=2839) BASOPHILS - REL (CELLAVISION)(BEAKER) (test 1 % nqun=2325) NEUTROPHILS - ABS (CELLAVISION)(BEAKER) (test 19.55 K/ul 1.78-5.38 qgkz=1285) LYMPHOCYTES - ABS (CELLAVISION)(BEAKER) (test 1.15 K/ul 1.32-3.57 tfyf=5528) MONOCYTES - ABS (CELLAVISION)(BEAKER) (test 2.30 K/uL 0.30-0.82 athx=4601) BASOPHILS - ABS (CELLAVISION)(BEAKER) (test 0.23 K/uL 0.01-0.08 lqmh=1168) TOTAL COUNTED (BEAKER) (test irif=1798) 100 WBC MORPHOLOGY (BEAKER) (test gbkw=429) Normal LARGE PLT(BEAKER) (test nyll=5353) Present POLYCHROMATOPHILLIC RBCS(BEAKER) (test zuam=131) 1+ few HYPOCHROMIA (BEAKER) (test jznh=087) 2+ moderate ARTIFACT (CELLAVISION)(BEAKER) (test xycf=9524) Present PLATELET CONCENTRATION (CELLAVISION)(BEAKER) Adequate (test ymdg=2065) Received comment: User comments: Slide comments:POCT-GLUCOSE [id number] 08: 12:00 Test Item Value Reference Range Comments POC-GLUCOSE METER (BEAKER) 131 mg/dL 70-110 TESTED AT [address] (test cdxw=9812) [place] [id number] BASIC METABOLIC [id number] 06:09:00 Test Item Value Reference Range Comments SODIUM (BEAKER) (test 136 meq/L 136-145 hgpa=349) POTASSIUM (BEAKER) (test 4.6 meq/L 3.5-5.1 fjum=221) CHLORIDE (BEAKER) (test 100 meq/L 98-107 jdxh=981) CO2 (BEAKER) (test 25 meq/L 22-29 fnln=378) BLOOD UREA NITROGEN 37 mg/dL 7-21 (BEAKER) (test hicu=485) CREATININE (BEAKER) (test 3.40 mg/dL 0.57-1.25 dwte=728) GLUCOSE RANDOM (BEAKER) 95 mg/dL 70-105 (test kzti=115) CALCIUM (BEAKER) (test 10.1 mg/dL 8.4-10.2 ujvi=988) EGFR (BEAKER) (test 19 mL/min/1.73 sq m ESTIMATED GFR IS NOT post=4392) ACCURATE CREATININE CLEARANCE IN PREDICTING GLOMERULAR FILTRATION RATE. ESTIMATED GFR IS NOT APPLICABLE FOR DIALYSIS PATIENTS. POCT-GLUCOSE [id number] 17:29:00 Test Item Value Reference Range Comments POC-GLUCOSE METER (BEAKER) 88 mg/dL 70-110 TESTED AT [address] (test lthp=4155) [place] [address] CBC W/PLT COUNT & AUTO [id number] 13:50:00 Test Item Value Reference Range Comments WHITE BLOOD CELL COUNT (BEAKER) (test pghm=526) 17.8 K/ L 3.5-10.5 RED BLOOD CELL COUNT (BEAKER) (test tljh=850) 3.11 M/ L 4.63-6.08 HEMOGLOBIN (BEAKER) (test rkav=725) 8.1 GM/DL 13.7-17.5 HEMATOCRIT (BEAKER) (test grtq=228) 27.8 % 40.1-51.0 MEAN CORPUSCULAR VOLUME (BEAKER) (test wybs=581) 89.4 fL 79.0-92.2 MEAN CORPUSCULAR HEMOGLOBIN (BEAKER) (test 26.0 pg 25.7-32.2 ntpq=093) MEAN CORPUSCULAR HEMOGLOBIN CONC (BEAKER) (test 29.1 GM/DL 32.3-36.5 hzay=595) RED CELL DISTRIBUTION WIDTH (BEAKER) (test 19.8 % 11.6-14.4 xext=989) PLATELET COUNT (BEAKER) (test ywcb=804) 356 K/CU MM 150-450 MEAN PLATELET VOLUME (BEAKER) (test tdcx=852) 10.7 fL 9.4-12.4 NUCLEATED RED BLOOD CELLS (BEAKER) (test 0 /100 WBC 0-0 hlbr=307) (CELLAVISION MANUAL DIFF)2018-11-03 13:50:00 Test Item Value Reference Range Comments NEUTROPHILS - REL (CELLAVISION)(BEAKER) (test 70 % benq=4037) LYMPHOCYTES - REL (CELLAVISION)(BEAKER) (test 8 % xflt=2790) MONOCYTES - REL (CELLAVISION)(BEAKER) (test 7 % lhnj=6250) EOSINOPHILS - REL (CELLAVISION)(BEAKER) (test 4 % bvev=6995) BASOPHILS - REL (CELLAVISION)(BEAKER) (test 1 % ukzs=7578) BANDS - REL (CELLAVISION)(BEAKER) (test 10 % 0-10 gclh=9030) NEUTROPHILS - ABS (CELLAVISION)(BEAKER) (test 12.46 K/ul 1.78-5.38 slwv=8703) LYMPHOCYTES - ABS (CELLAVISION)(BEAKER) (test 1.42 K/ul 1.32-3.57 fyye=2357) MONOCYTES - ABS (CELLAVISION)(BEAKER) (test 1.25 K/uL 0.30-0.82 hugn=8374) EOSINOPHILS - ABS (CELLAVISION)(BEAKER) (test 0.71 K/uL 0.04-0.54 lvgq=7774) BASOPHILS - ABS (CELLAVISION)(BEAKER) (test 0.18 K/uL 0.01-0.08 iund=1736) BANDS - ABS (CELLAVISION)(BEAKER) (test 1.78 K/uL 0.00-0.80 ntci=3286) TOTAL COUNTED (BEAKER) (test fpvj=1851) 100 WBC MORPHOLOGY (BEAKER) (test etec=384) Normal PLT MORPHOLOGY (BEAKER) (test rzzt=149) Normal POLYCHROMATOPHILLIC RBCS(BEAKER) (test tdfe=463) 1+ few ANISOCYTOSIS (BEAKER) (test bbxv=627) 1+ few POIKILOCYTES (BEAKER) (test aoyn=993) 1+ few ARTIFACT (CELLAVISION)(BEAKER) (test gtbo=4094) Present PLATELET CONCENTRATION (CELLAVISION)(BEAKER) Adequate (test baag=8975) Received comment: User comments: Slide comments:POCT-GLUCOSE [id number] 12: 28:00 Test Item Value Reference Range Comments POC-GLUCOSE METER (BEAKER) 144 mg/dL 70-110 TESTED AT [address] (test peki=0928) [place] [address] POCT-GLUCOSE [id number] 08:48:00 Test Item Value Reference Range Comments POC-GLUCOSE METER (BEAKER) 101 mg/dL 70-110 TESTED AT [address] (test uhqd=7908) [place] [id number] BASIC METABOLIC [id number] 06:14:00 Test Item Value Reference Range Comments SODIUM (BEAKER) (test 136 meq/L 136-145 mczr=675) POTASSIUM (BEAKER) (test 3.9 meq/L 3.5-5.1 suuw=462) CHLORIDE (BEAKER) (test 99 meq/L 98-107 rrzo=623) CO2 (BEAKER) (test 28 meq/L 22-29 zagv=078) BLOOD UREA NITROGEN 17 mg/dL 7-21 (BEAKER) (test vudp=466) CREATININE (BEAKER) (test 2.31 mg/dL 0.57-1.25 zjmw=522) GLUCOSE RANDOM (BEAKER) 75 mg/dL 70-105 (test nzmn=538) CALCIUM (BEAKER) (test 9.5 mg/dL 8.4-10.2 lrni=863) EGFR (BEAKER) (test 29 mL/min/1.73 sq m ESTIMATED GFR IS NOT xklg=7634) ACCURATE CREATININE CLEARANCE IN PREDICTING GLOMERULAR FILTRATION RATE. ESTIMATED GFR IS NOT APPLICABLE FOR DIALYSIS PATIENTS. POCT-GLUCOSE [id number] 22:46:00 Test Item Value Reference Range Comments POC-GLUCOSE METER (BEAKER) 104 mg/dL 70-110 TESTED AT [facility] [address] [facility] (test cprp=0075) [facility] [address] POCT-GLUCOSE [id number] 12:12:00 Test Item Value Reference Range Comments POC-GLUCOSE METER (BEAKER) 139 mg/dL 70-110 TESTED AT [facility] [address] [facility] (test ajsm=1043) [facility] [address] CBC W/PLT COUNT & AUTO [id number] 09:48:00 Test Item Value Reference Range Comments WHITE BLOOD CELL COUNT (BEAKER) (test ziws=673) 20.7 K/ L 3.5-10.5 RED BLOOD CELL COUNT (BEAKER) (test wjke=185) 3.16 M/ L 4.63-6.08 HEMOGLOBIN (BEAKER) (test qqgy=501) 8.3 GM/DL 13.7-17.5 HEMATOCRIT (BEAKER) (test meop=492) 28.3 % 40.1-51.0 MEAN CORPUSCULAR VOLUME (BEAKER) (test cpbh=903) 89.6 fL 79.0-92.2 MEAN CORPUSCULAR HEMOGLOBIN (BEAKER) (test 26.3 pg 25.7-32.2 uvre=114) MEAN CORPUSCULAR HEMOGLOBIN CONC (BEAKER) (test 29.3 GM/DL 32.3-36.5 xich=049) RED CELL DISTRIBUTION WIDTH (BEAKER) (test 19.3 % 11.6-14.4 idqi=249) PLATELET COUNT (BEAKER) (test jmdj=602) 379 K/CU MM 150-450 MEAN PLATELET VOLUME (BEAKER) (test guok=578) 10.3 fL 9.4-12.4 NUCLEATED RED BLOOD CELLS (BEAKER) (test 0 /100 WBC 0-0 mimg=036) (CELLAVISION MANUAL DIFF)2018-11-02 09:48:00 Test Item Value Reference Range Comments NEUTROPHILS - REL (CELLAVISION)(BEAKER) (test 83 % gndt=2692) LYMPHOCYTES - REL (CELLAVISION)(BEAKER) (test 2 % zwpg=3714) MONOCYTES - REL (CELLAVISION)(BEAKER) (test 10 % lwky=0575) EOSINOPHILS - REL (CELLAVISION)(BEAKER) (test 5 % ihiv=6124) NEUTROPHILS - ABS (CELLAVISION)(BEAKER) (test 17.18 K/ul 1.78-5.38 eqsy=1163) LYMPHOCYTES - ABS (CELLAVISION)(BEAKER) (test 0.41 K/ul 1.32-3.57 zixs=0655) MONOCYTES - ABS (CELLAVISION)(BEAKER) (test 2.07 K/uL 0.30-0.82 dnea=5816) EOSINOPHILS - ABS (CELLAVISION)(BEAKER) (test 1.04 K/uL 0.04-0.54 rpak=0645) TOTAL COUNTED (BEAKER) (test zsqt=8891) 100 WBC MORPHOLOGY (BEAKER) (test csnt=718) Normal LARGE PLT(BEAKER) (test avdh=7128) Present POLYCHROMATOPHILLIC RBCS(BEAKER) (test yzet=430) 2+ moderate HYPOCHROMIA (BEAKER) (test avnb=320) 2+ moderate ANISOCYTOSIS (BEAKER) (test azel=044) 2+ moderate MICROCYTES (BEAKER) (test bfqx=603) 1+ few MACROCYTES (BEAKER) (test nimc=194) 2+ moderate POIKILOCYTES (BEAKER) (test orxc=742) 2+ moderate TARGET CELLS (BEAKER) (test ylzn=435) 1+ few SCHISTOCYTES (BEAKER) (test zszb=045) 1+ few OVALOCYTES (BEAKER) (test fyvb=982) 1+ few TEAR DROP CELLS (BEAKER) (test tlsp=881) 1+ few ACANTHOCYTES (BEAKER) (test dnml=862) 1+ few ARTIFACT (CELLAVISION)(BEAKER) (test yedp=1585) Present PLATELET CONCENTRATION (CELLAVISION)(BEAKER) Adequate (test msod=0802) Received comment: User comments: Slide comments:POCT-GLUCOSE [id number] 08: 50:00 Test Item Value Reference Range Comments POC-GLUCOSE METER (BEAKER) 135 mg/dL 70-110 TESTED AT [facility] [address] [facility] (test jmeb=1049) [facility] [address] [id number] 05:33:00 Test Item Value Reference Range Comments PHOSPHORUS (BEAKER) (test tdse=513) 5.8 mg/dL 2.3-4.7 [id number] 05:33:00 Test Item Value Reference Range Comments MAGNESIUM (BEAKER) (test efod=674) 2.3 mg/dL 1.6-2.6 BASIC METABOLIC [id number] 05:33:00 Test Item Value Reference Range Comments SODIUM (BEAKER) (test 137 meq/L 136-145 vvmd=066) POTASSIUM (BEAKER) (test 4.5 meq/L 3.5-5.1 nycq=625) CHLORIDE (BEAKER) (test 100 meq/L 98-107 fafy=578) CO2 (BEAKER) (test 25 meq/L 22-29 hddl=017) BLOOD UREA NITROGEN 45 mg/dL 7-21 (BEAKER) (test qgcx=042) CREATININE (BEAKER) (test 4.15 mg/dL 0.57-1.25 qehs=285) GLUCOSE RANDOM (BEAKER) 97 mg/dL 70-105 (test jdxr=735) CALCIUM (BEAKER) (test 10.2 mg/dL 8.4-10.2 tlvj=142) EGFR (BEAKER) (test 15 mL/min/1.73 sq m ESTIMATED GFR IS NOT qtda=3533) ACCURATE CREATININE CLEARANCE IN PREDICTING GLOMERULAR FILTRATION RATE. ESTIMATED GFR IS NOT APPLICABLE FOR DIALYSIS PATIENTS. POCT-GLUCOSE [id number] 21:19:00 Test Item Value Reference Range Comments POC-GLUCOSE METER (BEAKER) 165 mg/dL 70-110 TESTED AT [facility] [address] [facility] (test yfrs=9514) [facility] [address] CBC W/PLT COUNT & AUTO [id number] 13:24:00 Test Item Value Reference Range Comments WHITE BLOOD CELL COUNT (BEAKER) (test earh=523) 20.2 K/ L 3.5-10.5 RED BLOOD CELL COUNT (BEAKER) (test uesd=944) 3.18 M/ L 4.63-6.08 HEMOGLOBIN (BEAKER) (test pyek=481) 8.2 GM/DL 13.7-17.5 HEMATOCRIT (BEAKER) (test wznd=473) 28.3 % 40.1-51.0 MEAN CORPUSCULAR VOLUME (BEAKER) (test hvgz=523) 89.0 fL 79.0-92.2 MEAN CORPUSCULAR HEMOGLOBIN (BEAKER) (test 25.8 pg 25.7-32.2 nsrt=822) MEAN CORPUSCULAR HEMOGLOBIN CONC (BEAKER) (test 29.0 GM/DL 32.3-36.5 kupq=184) RED CELL DISTRIBUTION WIDTH (BEAKER) (test 19.2 % 11.6-14.4 tkto=439) PLATELET COUNT (BEAKER) (test qtep=444) 362 K/CU MM 150-450 MEAN PLATELET VOLUME (BEAKER) (test yfay=765) 10.3 fL 9.4-12.4 NUCLEATED RED BLOOD CELLS (BEAKER) (test 0 /100 WBC 0-0 qqsp=587) (CELLAVISION MANUAL DIFF)2018-11-01 13:24:00 Test Item Value Reference Range Comments NEUTROPHILS - REL (CELLAVISION)(BEAKER) (test 84 % xnpr=2455) LYMPHOCYTES - REL (CELLAVISION)(BEAKER) (test 3 % xrvl=2124) MONOCYTES - REL (CELLAVISION)(BEAKER) (test 5 % onan=8259) EOSINOPHILS - REL (CELLAVISION)(BEAKER) (test 7 % yzmm=0237) BANDS - REL (CELLAVISION)(BEAKER) (test 1 % 0-10 iniq=9921) NEUTROPHILS - ABS (CELLAVISION)(BEAKER) (test 16.97 K/ul 1.78-5.38 qdqs=7370) LYMPHOCYTES - ABS (CELLAVISION)(BEAKER) (test 0.61 K/ul 1.32-3.57 wzgb=3447) MONOCYTES - ABS (CELLAVISION)(BEAKER) (test 1.01 K/uL 0.30-0.82 ivdg=3921) EOSINOPHILS - ABS (CELLAVISION)(BEAKER) (test 1.41 K/uL 0.04-0.54 ekol=8472) BANDS - ABS (CELLAVISION)(BEAKER) (test 0.20 K/uL 0.00-0.80 creu=6129) TOTAL COUNTED (BEAKER) (test xtvp=8291) 100 WBC MORPHOLOGY (BEAKER) (test rqnv=315) Normal PLT MORPHOLOGY (BEAKER) (test cadp=514) Normal HYPOCHROMIA (BEAKER) (test tkry=588) 1+ few ANISOCYTOSIS (BEAKER) (test iaup=780) 1+ few MICROCYTES (BEAKER) (test ppox=822) 1+ few ARTIFACT (CELLAVISION)(BEAKER) (test rpag=1479) Present PLATELET CONCENTRATION (CELLAVISION)(BEAKER) Adequate (test rjmi=2823) Received comment: User comments: Slide comments:POCT-GLUCOSE [id number] 10: 05:00 Test Item Value Reference Range Comments POC-GLUCOSE METER (BEAKER) 143 mg/dL 70-110 TESTED AT [facility] [address] [facility] (test bgpt=9472) [facility] [address] BASIC METABOLIC [id number] 06:11:00 Test Item Value Reference Range Comments SODIUM (BEAKER) (test 136 meq/L 136-145 mcrl=719) POTASSIUM (BEAKER) (test 3.9 meq/L 3.5-5.1 crul=524) CHLORIDE (BEAKER) (test 99 meq/L 98-107 cngo=529) CO2 (BEAKER) (test 28 meq/L 22-29 pwtk=074) BLOOD UREA NITROGEN 32 mg/dL 7-21 (BEAKER) (test pjbn=219) CREATININE (BEAKER) (test 3.20 mg/dL 0.57-1.25 awlc=317) GLUCOSE RANDOM (BEAKER) 113 mg/dL 70-105 (test vrnu=895) CALCIUM (BEAKER) (test 10.0 mg/dL 8.4-10.2 arud=123) EGFR (BEAKER) (test 20 mL/min/1.73 sq m ESTIMATED GFR IS NOT xbvv=0514) ACCURATE CREATININE CLEARANCE IN PREDICTING GLOMERULAR FILTRATION RATE. ESTIMATED GFR IS NOT APPLICABLE FOR DIALYSIS PATIENTS. [id number] 06:09:00 Test Item Value Reference Range Comments PHOSPHORUS (BEAKER) (test eemw=788) 4.1 mg/dL 2.3-4.7 [id number] 06:09:00 Test Item Value Reference Range Comments MAGNESIUM (BEAKER) (test cxlf=033) 2.2 mg/dL 1.6-2.6 POCT-GLUCOSE [id number] 23:49:00 Test Item Value Reference Range Comments POC-GLUCOSE METER (BEAKER) 89 mg/dL 70-110 TESTED AT [facility] [address] (test jlba=1268) [place] [address] CBC W/PLT COUNT & AUTO [id number] 13:04:00 Test Item Value Reference Range Comments WHITE BLOOD CELL COUNT (BEAKER) (test adyv=983) 18.2 K/ L 3.5-10.5 RED BLOOD CELL COUNT (BEAKER) (test tdfn=306) 3.13 M/ L 4.63-6.08 HEMOGLOBIN (BEAKER) (test dvln=247) 8.1 GM/DL 13.7-17.5 HEMATOCRIT (BEAKER) (test lpwy=474) 27.7 % 40.1-51.0 MEAN CORPUSCULAR VOLUME (BEAKER) (test styn=629) 88.5 fL 79.0-92.2 MEAN CORPUSCULAR HEMOGLOBIN (BEAKER) (test 25.9 pg 25.7-32.2 bgjj=028) MEAN CORPUSCULAR HEMOGLOBIN CONC (BEAKER) (test 29.2 GM/DL 32.3-36.5 gpwf=089) RED CELL DISTRIBUTION WIDTH (BEAKER) (test 19.3 % 11.6-14.4 wfyv=017) PLATELET COUNT (BEAKER) (test muky=656) 357 K/CU MM 150-450 MEAN PLATELET VOLUME (BEAKER) (test ayun=210) 10.5 fL 9.4-12.4 NUCLEATED RED BLOOD CELLS (BEAKER) (test 0 /100 WBC 0-0 yycv=473) (CELLAVISION MANUAL DIFF)[id number] 13:04:00 Test Item Value Reference Range Comments NEUTROPHILS - REL (CELLAVISION)(BEAKER) (test 86 % xivj=2977) LYMPHOCYTES - REL (CELLAVISION)(BEAKER) (test 6 % pifm=8927) MONOCYTES - REL (CELLAVISION)(BEAKER) (test 5 % bxfr=4238) EOSINOPHILS - REL (CELLAVISION)(BEAKER) (test 2 % scec=6140) BASOPHILS - REL (CELLAVISION)(BEAKER) (test 1 % zgka=6208) NEUTROPHILS - ABS (CELLAVISION)(BEAKER) (test 15.65 K/ul 1.78-5.38 nwvr=7274) LYMPHOCYTES - ABS (CELLAVISION)(BEAKER) (test 1.09 K/ul 1.32-3.57 dbfd=4193) MONOCYTES - ABS (CELLAVISION)(BEAKER) (test 0.91 K/uL 0.30-0.82 zjwa=8750) EOSINOPHILS - ABS (CELLAVISION)(BEAKER) (test 0.36 K/uL 0.04-0.54 yzln=8058) BASOPHILS - ABS (CELLAVISION)(BEAKER) (test 0.18 K/uL 0.01-0.08 fvem=6801) TOTAL COUNTED (BEAKER) (test lnvk=3112) 100 WBC MORPHOLOGY (BEAKER) (test nyio=302) Normal PLT MORPHOLOGY (BEAKER) (test hekh=848) Normal POLYCHROMATOPHILLIC RBCS(BEAKER) (test uqaq=792) 1+ few ANISOCYTOSIS (BEAKER) (test nddv=675) 1+ few ARTIFACT (CELLAVISION)(BEAKER) (test dmda=0123) Present PLATELET CONCENTRATION (CELLAVISION)(BEAKER) Adequate (test gfui=2547) Received comment: User comments: Slide comments:FUNGUS CULTURE + [id number] 12:26:00 Test Item Value Reference Range Comments CULTURE (BEAKER) (test No fungus isolated in 28 days dtve=1933) FUNGUS SMEAR (BEAKER) (test No fungi seen pnhu=6296) POCT-GLUCOSE [id number] 11:23:00 Test Item Value Reference Range Comments POC-GLUCOSE METER (BEAKER) 114 mg/dL 70-110 TESTED AT [address] (test sowk=9594) [facility] [address] BASIC METABOLIC [id number] 05:12:00 Test Item Value Reference Range Comments SODIUM (BEAKER) (test 136 meq/L 136-145 ijhq=738) POTASSIUM (BEAKER) (test 4.8 meq/L 3.5-5.1 tjrs=802) CHLORIDE (BEAKER) (test 100 meq/L 98-107 hbqz=118) CO2 (BEAKER) (test 23 meq/L 22-29 psob=800) BLOOD UREA NITROGEN 47 mg/dL 7-21 (BEAKER) (test lhdd=989) CREATININE (BEAKER) (test 4.06 mg/dL 0.57-1.25 idep=678) GLUCOSE RANDOM (BEAKER) 95 mg/dL 70-105 (test shxm=112) CALCIUM (BEAKER) (test 10.2 mg/dL 8.4-10.2 hnbx=258) EGFR (BEAKER) (test 15 mL/min/1.73 sq m ESTIMATED GFR IS NOT pzjt=7694) ACCURATE CREATININE CLEARANCE IN PREDICTING GLOMERULAR FILTRATION RATE. ESTIMATED GFR IS NOT APPLICABLE FOR DIALYSIS PATIENTS. CREATINE KINASE (CK)2018-10-31 05:12:00 Test Item Value Reference Range Comments CREATINE KINASE TOTAL (BEAKER) (test ckpg=671) 14 U/L 29-200 [id number] 05:08:00 Test Item Value Reference Range Comments PHOSPHORUS (BEAKER) (test trlo=921) 5.4 mg/dL 2.3-4.7 [id number] 05:08:00 Test Item Value Reference Range Comments MAGNESIUM (BEAKER) (test luig=319) 2.3 mg/dL 1.6-2.6 POCT-GLUCOSE [id number] 23:13:00 Test Item Value Reference Range Comments POC-GLUCOSE METER (BEAKER) 175 mg/dL 70-110 TESTED AT [address] (test imub=4493) [place] [id number] POCT-GLUCOSE [id number] 17:41:00 Test Item Value Reference Range Comments POC-GLUCOSE METER (BEAKER) 127 mg/dL 70-110 TESTED AT [address] (test wpgn=5274) [facility] [address] CBC W/PLT COUNT & AUTO [id number] 13:28:00 Test Item Value Reference Range Comments WHITE BLOOD CELL COUNT (BEAKER) (test rvyb=965) 21.6 K/ L 3.5-10.5 RED BLOOD CELL COUNT (BEAKER) (test fiiu=944) 3.19 M/ L 4.63-6.08 HEMOGLOBIN (BEAKER) (test appe=966) 8.3 GM/DL 13.7-17.5 HEMATOCRIT (BEAKER) (test llfr=979) 28.5 % 40.1-51.0 MEAN CORPUSCULAR VOLUME (BEAKER) (test utpw=626) 89.3 fL 79.0-92.2 MEAN CORPUSCULAR HEMOGLOBIN (BEAKER) (test 26.0 pg 25.7-32.2 okbt=239) MEAN CORPUSCULAR HEMOGLOBIN CONC (BEAKER) (test 29.1 GM/DL 32.3-36.5 hwnw=822) RED CELL DISTRIBUTION WIDTH (BEAKER) (test 19.5 % 11.6-14.4 arvq=593) PLATELET COUNT (BEAKER) (test dwcl=771) 378 K/CU MM 150-450 MEAN PLATELET VOLUME (BEAKER) (test gfjq=177) 10.6 fL 9.4-12.4 NUCLEATED RED BLOOD CELLS (BEAKER) (test 0 /100 WBC 0-0 bjbz=792) (CELLAVISION MANUAL DIFF)2018-10-30 13:28:00 Test Item Value Reference Range Comments NEUTROPHILS - REL (CELLAVISION)(BEAKER) (test 86 % wrul=8230) LYMPHOCYTES - REL (CELLAVISION)(BEAKER) (test 2 % fdcv=8985) MONOCYTES - REL (CELLAVISION)(BEAKER) (test 8 % dbxu=3399) EOSINOPHILS - REL (CELLAVISION)(BEAKER) (test 3 % raye=2311) BANDS - REL (CELLAVISION)(BEAKER) (test 1 % 0-10 ogtx=5055) NEUTROPHILS - ABS (CELLAVISION)(BEAKER) (test 18.58 K/ul 1.78-5.38 asjn=9240) LYMPHOCYTES - ABS (CELLAVISION)(BEAKER) (test 0.43 K/ul 1.32-3.57 zktt=4678) MONOCYTES - ABS (CELLAVISION)(BEAKER) (test 1.73 K/uL 0.30-0.82 uzcq=1623) EOSINOPHILS - ABS (CELLAVISION)(BEAKER) (test 0.65 K/uL 0.04-0.54 vsis=9980) BANDS - ABS (CELLAVISION)(BEAKER) (test 0.22 K/uL 0.00-0.80 agje=2159) TOTAL COUNTED (BEAKER) (test jdem=5663) 100 SMUDGE CELLS (BEAKER) (test gthj=3515) Present GIANT PLATELETS (BEAKER) (test ibty=649) Present POLYCHROMATOPHILLIC RBCS(BEAKER) (test evuv=339) 1+ few HYPOCHROMIA (BEAKER) (test flfi=585) 2+ moderate ANISOCYTOSIS (BEAKER) (test oqzx=383) 1+ few MICROCYTES (BEAKER) (test ojcv=616) 1+ few POIKILOCYTES (BEAKER) (test krrz=465) 1+ few SCHISTOCYTES (BEAKER) (test irat=358) 1+ few ARTIFACT (CELLAVISION)(BEAKER) (test tasv=0102) Present PLATELET CONCENTRATION (CELLAVISION)(BEAKER) Adequate (test leow=1157) Received comment: User comments: Slide comments:POCT-GLUCOSE [id number] 11: 52:00 Test Item Value Reference Range Comments POC-GLUCOSE METER (BEAKER) 287 mg/dL 70-110 TESTED AT [address] (test etaj=8320) [place] [address] [id number] 11:35:00 Test Item Value Reference Range Comments PARTIAL THROMBOPLASTIN TIME (BEAKER) (test 45.8 seconds 22.5-36.0 bexn=668) PROTHROMBIN [id number] 11:34:00 Test Item Value Reference Range Comments PROTIME (BEAKER) (test dewi=892) 14.0 seconds 11.7-14.7 INR (BEAKER) (test yzpn=506) 1.1 <=5.9 RECOMMENDED COUMADIN/WARFARIN INR THERAPY RANGESSTANDARD DOSE: 2.0 - 3.0 Includes: PROPHYLAXIS forvenous thrombosis, systemic embolization; TREATMENT for venous thrombosis and/or pulmonary embolus.HIGH RISK: Target INR is 2.5-3.5 for patients with mechanical heart valves.POCT-GLUCOSE [id number] 08:08:00 Test Item Value Reference Range Comments POC-GLUCOSE METER (BEAKER) 167 mg/dL 70-110 TESTED AT [address] (test kjmj=0202) [place] [id number] BASIC METABOLIC [id number] 06:29:00 Test Item Value Reference Range Comments SODIUM (BEAKER) (test 139 meq/L 136-145 ytcx=150) POTASSIUM (BEAKER) (test 4.3 meq/L 3.5-5.1 unmi=693) CHLORIDE (BEAKER) (test 102 meq/L 98-107 xwva=037) CO2 (BEAKER) (test 25 meq/L 22-29 mpcn=310) BLOOD UREA NITROGEN 35 mg/dL 7-21 (BEAKER) (test dxld=194) CREATININE (BEAKER) (test 3.06 mg/dL 0.57-1.25 zpih=479) GLUCOSE RANDOM (BEAKER) 104 mg/dL 70-105 (test vmpp=247) CALCIUM (BEAKER) (test 10.2 mg/dL 8.4-10.2 mymr=253) EGFR (BEAKER) (test 21 mL/min/1.73 sq m ESTIMATED GFR IS NOT asze=3088) ACCURATE CREATININE CLEARANCE IN PREDICTING GLOMERULAR FILTRATION RATE. ESTIMATED GFR IS NOT APPLICABLE FOR DIALYSIS PATIENTS. POCT-GLUCOSE [id number] 21:26:00 Test Item Value Reference Range Comments POC-GLUCOSE METER (BEAKER) 181 mg/dL 70-110 TESTED AT [address] (test gdmz=9054) [place] [address] POCT-GLUCOSE [id number] 16:53:00 Test Item Value Reference Range Comments POC-GLUCOSE METER (BEAKER) 152 mg/dL 70-110 TESTED AT [address] (test zojs=4547) [place] [address] POCT-GLUCOSE [id number] 12:44:00 Test Item Value Reference Range Comments POC-GLUCOSE METER (BEAKER) 113 mg/dL 70-110 TESTED AT [address] (test jsux=4171) [place] [id number] POCT-GLUCOSE [id number] 09:48:00 Test Item Value Reference Range Comments POC-GLUCOSE METER (BEAKER) 111 mg/dL 70-110 TESTED AT [address] (test wjih=5352) [place] [address] CBC W/PLT COUNT & AUTO [id number] 07:22:00 Test Item Value Reference Range Comments WHITE BLOOD CELL COUNT (BEAKER) (test cfla=962) 24.1 K/ L 3.5-10.5 RED BLOOD CELL COUNT (BEAKER) (test aplx=510) 3.08 M/ L 4.63-6.08 HEMOGLOBIN (BEAKER) (test bboc=247) 7.8 GM/DL 13.7-17.5 HEMATOCRIT (BEAKER) (test wpuq=293) 27.1 % 40.1-51.0 MEAN CORPUSCULAR VOLUME (BEAKER) (test kqtz=979) 88.0 fL 79.0-92.2 MEAN CORPUSCULAR HEMOGLOBIN (BEAKER) (test 25.3 pg 25.7-32.2 jqgp=394) MEAN CORPUSCULAR HEMOGLOBIN CONC (BEAKER) (test 28.8 GM/DL 32.3-36.5 ryug=009) RED CELL DISTRIBUTION WIDTH (BEAKER) (test 19.8 % 11.6-14.4 zczb=443) PLATELET COUNT (BEAKER) (test xlnc=388) 354 K/CU MM 150-450 MEAN PLATELET VOLUME (BEAKER) (test uvdd=601) 9.5 fL 9.4-12.4 NUCLEATED RED BLOOD CELLS (BEAKER) (test 0 /100 WBC 0-0 eisq=780) NEUTROPHILS RELATIVE PERCENT (BEAKER) (test 80 % rtux=677) LYMPHOCYTES RELATIVE PERCENT (BEAKER) (test 5 % vpvu=060) MONOCYTES RELATIVE PERCENT (BEAKER) (test 9 % wsza=064) EOSINOPHILS RELATIVE PERCENT (BEAKER) (test 4 % gllu=623) BASOPHILS RELATIVE PERCENT (BEAKER) (test 1 % rfll=429) NEUTROPHILS ABSOLUTE COUNT (BEAKER) (test 19.31 K/ L 1.78-5.38 kytg=525) LYMPHOCYTES ABSOLUTE COUNT (BEAKER) (test 1.22 K/ L 1.32-3.57 zfoa=121) MONOCYTES ABSOLUTE COUNT (BEAKER) (test 2.26 K/ L 0.30-0.82 nxcp=168) EOSINOPHILS ABSOLUTE COUNT (BEAKER) (test 0.93 K/ L 0.04-0.54 qfrs=625) BASOPHILS ABSOLUTE COUNT (BEAKER) (test 0.12 K/ L 0.01-0.08 kbal=249) IMMATURE GRANULOCYTES-RELATIVE PERCENT (BEAKER) 1 % 0-1 (test iclr=8906) CALCIUM, [id number] 05:57:00 Test Item Value Reference Range Comments CALCIUM IONIZED (BEAKER) (test qcnv=226) 1.26 mmol/L 1.12-1.27 PH, BLOOD (BEAKER) (test ucdm=4565) 7.35 HEPATITIS B SURFACE [id number] 05:57:00 Test Item Value Reference Range Comments HEPATITIS B SURFACE ANTIGEN (2) (BEAKER) (test Nonreactive Nonreactive tujf=6601) COMPREHENSIVE METABOLIC [id number] 05:37:00 Test Item Value Reference Range Comments TOTAL PROTEIN (BEAKER) 7.0 gm/dL 6.0-8.3 (test xaml=064) ALBUMIN (BEAKER) (test 2.8 g/dL 3.5-5.0 vxpl=4219) ALKALINE PHOSPHATASE 87 U/L 40-150 (BEAKER) (test bihm=549) BILIRUBIN TOTAL (BEAKER) 0.5 mg/dL 0.2-1.2 (test sgbr=207) SODIUM (BEAKER) (test 136 meq/L 136-145 xtxt=556) POTASSIUM (BEAKER) (test 5.6 meq/L 3.5-5.1 dmpu=854) CHLORIDE (BEAKER) (test 101 meq/L 98-107 igrf=647) CO2 (BEAKER) (test 23 meq/L 22-29 pmfl=973) BLOOD UREA NITROGEN 65 mg/dL 7-21 (BEAKER) (test nvqh=484) CREATININE (BEAKER) (test 4.74 mg/dL 0.57-1.25 ngax=024) GLUCOSE RANDOM (BEAKER) 89 mg/dL 70-105 (test nboy=083) CALCIUM (BEAKER) (test 10.3 mg/dL 8.4-10.2 kkmf=792) AST (SGOT) (BEAKER) (test 9 U/L 5-34 nqao=973) ALT (SGPT) (BEAKER) (test < U/L 6-55 ywll=032) EGFR (BEAKER) (test 13 mL/min/1.73 sq m ESTIMATED GFR IS NOT mxle=9127) ACCURATE CREATININE CLEARANCE IN PREDICTING GLOMERULAR FILTRATION RATE. ESTIMATED GFR IS NOT APPLICABLE FOR DIALYSIS PATIENTS. PTH, [id number] 05:32:00 Test Item Value Reference Range Comments PARATHYROID HORMONE INTACT (BEAKER) (test 8.4 pg/mL 8.5-72.5 vfxc=816) [id number] 05:27:00 Test Item Value Reference Range Comments PHOSPHORUS (BEAKER) (test tjki=528) 6.7 mg/dL 2.3-4.7 [id number] 05:27:00 Test Item Value Reference Range Comments MAGNESIUM (BEAKER) (test uxuy=904) 2.4 mg/dL 1.6-2.6 POCT-GLUCOSE [id number] 21:04:00 Test Item Value Reference Range Comments POC-GLUCOSE METER (BEAKER) 129 mg/dL 70-110 TESTED AT [address] (test kijn=4295) [facility] [address] POCT-GLUCOSE [id number] 17:28:00 Test Item Value Reference Range Comments POC-GLUCOSE METER (BEAKER) 122 mg/dL 70-110 TESTED AT [address] (test jwte=0164) [facility] [address] CBC W/PLT COUNT & AUTO [id number] 15:04:00 Test Item Value Reference Range Comments WHITE BLOOD CELL COUNT (BEAKER) (test xnzm=260) 23.8 K/ L 3.5-10.5 RED BLOOD CELL COUNT (BEAKER) (test xvxo=753) 3.11 M/ L 4.63-6.08 HEMOGLOBIN (BEAKER) (test csls=983) 8.1 GM/DL 13.7-17.5 HEMATOCRIT (BEAKER) (test zxvf=449) 27.5 % 40.1-51.0 MEAN CORPUSCULAR VOLUME (BEAKER) (test vtfa=129) 88.4 fL 79.0-92.2 MEAN CORPUSCULAR HEMOGLOBIN (BEAKER) (test 26.0 pg 25.7-32.2 zqrg=553) MEAN CORPUSCULAR HEMOGLOBIN CONC (BEAKER) (test 29.5 GM/DL 32.3-36.5 knir=230) RED CELL DISTRIBUTION WIDTH (BEAKER) (test 19.6 % 11.6-14.4 vcio=393) PLATELET COUNT (BEAKER) (test yoyo=848) 358 K/CU MM 150-450 MEAN PLATELET VOLUME (BEAKER) (test hnow=830) 9.9 fL 9.4-12.4 NUCLEATED RED BLOOD CELLS (BEAKER) (test 0 /100 WBC 0-0 yscu=122) (CELLAVISION MANUAL DIFF)2018-10-28 15:04:00 Test Item Value Reference Range Comments NEUTROPHILS - REL (CELLAVISION)(BEAKER) (test 91 % noge=6551) LYMPHOCYTES - REL (CELLAVISION)(BEAKER) (test 3 % okjz=1274) MONOCYTES - REL (CELLAVISION)(BEAKER) (test 5 % nsge=6419) EOSINOPHILS - REL (CELLAVISION)(BEAKER) (test 1 % uhdc=5894) NEUTROPHILS - ABS (CELLAVISION)(BEAKER) (test 21.66 K/ul 1.78-5.38 kxlr=4761) LYMPHOCYTES - ABS (CELLAVISION)(BEAKER) (test 0.71 K/ul 1.32-3.57 mjjv=6027) MONOCYTES - ABS (CELLAVISION)(BEAKER) (test 1.19 K/uL 0.30-0.82 fxcj=6963) EOSINOPHILS - ABS (CELLAVISION)(BEAKER) (test 0.24 K/uL 0.04-0.54 optv=7658) TOTAL COUNTED (BEAKER) (test xfxy=6000) 100 WBC MORPHOLOGY (BEAKER) (test oauz=696) Normal PLT MORPHOLOGY (BEAKER) (test ulvc=541) Normal POLYCHROMATOPHILLIC RBCS(BEAKER) (test hzzo=930) 1+ few ANISOCYTOSIS (BEAKER) (test vfcj=275) 1+ few POIKILOCYTES (BEAKER) (test ntfo=428) 1+ few ARTIFACT (CELLAVISION)(BEAKER) (test fcwd=9383) Present PLATELET CONCENTRATION (CELLAVISION)(BEAKER) Adequate (test cdpw=6681) Received comment: User comments: Slide comments:POCT-GLUCOSE [id number] 13: 28:00 Test Item Value Reference Range Comments POC-GLUCOSE METER (BEAKER) 192 mg/dL 70-110 TESTED AT [address] (test nidy=8647) [facility] [address] POCT-GLUCOSE [id number] 08:42:00 Test Item Value Reference Range Comments POC-GLUCOSE METER (BEAKER) 147 mg/dL 70-110 TESTED AT [address] (test txzr=8080) [facility] [address] BASIC METABOLIC [id number] 07:30:00 Test Item Value Reference Range Comments SODIUM (BEAKER) (test 137 meq/L 136-145 hfrq=047) POTASSIUM (BEAKER) (test 4.8 meq/L 3.5-5.1 jhen=825) CHLORIDE (BEAKER) (test 101 meq/L 98-107 ngkg=424) CO2 (BEAKER) (test 26 meq/L 22-29 skyq=345) BLOOD UREA NITROGEN 52 mg/dL 7-21 (BEAKER) (test vhwq=657) CREATININE (BEAKER) (test 3.81 mg/dL 0.57-1.25 kcgq=535) GLUCOSE RANDOM (BEAKER) 123 mg/dL 70-105 (test bkbd=943) CALCIUM (BEAKER) (test 10.4 mg/dL 8.4-10.2 defq=955) EGFR (BEAKER) (test 16 mL/min/1.73 sq m ESTIMATED GFR IS NOT fpjd=8554) ACCURATE CREATININE CLEARANCE IN PREDICTING GLOMERULAR FILTRATION RATE. ESTIMATED GFR IS NOT APPLICABLE FOR DIALYSIS PATIENTS. POCT-GLUCOSE [id number] 22:35:00 Test Item Value Reference Range Comments POC-GLUCOSE METER (BEAKER) 166 mg/dL 70-110 TESTED AT [address] (test upcb=6301) [place] [address] POCT-GLUCOSE [id number] 16:05:00 Test Item Value Reference Range Comments POC-GLUCOSE METER (BEAKER) 196 mg/dL 70-110 TESTED AT [address] (test nfaq=6970) [place] [address] POCT-GLUCOSE [id number] 12:20:00 Test Item Value Reference Range Comments POC-GLUCOSE METER (BEAKER) 147 mg/dL 70-110 TESTED AT [address] (test zmjq=2480) [place] [address] CBC W/PLT COUNT & AUTO [id number] 11:09:00 Test Item Value Reference Range Comments WHITE BLOOD CELL COUNT (BEAKER) (test fppu=867) 21.1 K/ L 3.5-10.5 RED BLOOD CELL COUNT (BEAKER) (test ghzs=499) 3.25 M/ L 4.63-6.08 HEMOGLOBIN (BEAKER) (test gtwa=006) 8.4 GM/DL 13.7-17.5 HEMATOCRIT (BEAKER) (test rlyw=369) 28.8 % 40.1-51.0 MEAN CORPUSCULAR VOLUME (BEAKER) (test dggc=420) 88.6 fL 79.0-92.2 MEAN CORPUSCULAR HEMOGLOBIN (BEAKER) (test 25.8 pg 25.7-32.2 azwi=800) MEAN CORPUSCULAR HEMOGLOBIN CONC (BEAKER) (test 29.2 GM/DL 32.3-36.5 ppqx=998) RED CELL DISTRIBUTION WIDTH (BEAKER) (test 19.5 % 11.6-14.4 ljiw=379) PLATELET COUNT (BEAKER) (test cnzm=375) 368 K/CU MM 150-450 MEAN PLATELET VOLUME (BEAKER) (test ejps=069) 10.1 fL 9.4-12.4 NUCLEATED RED BLOOD CELLS (BEAKER) (test 0 /100 WBC 0-0 ievz=228) (CELLAVISION MANUAL DIFF)2018-10-27 11:09:00 Test Item Value Reference Range Comments NEUTROPHILS - REL (CELLAVISION)(BEAKER) (test 82 % pcta=9627) LYMPHOCYTES - REL (CELLAVISION)(BEAKER) (test 4 % zgfv=5075) MONOCYTES - REL (CELLAVISION)(BEAKER) (test 9 % jgzf=8700) EOSINOPHILS - REL (CELLAVISION)(BEAKER) (test 4 % femr=3464) BASOPHILS - REL (CELLAVISION)(BEAKER) (test 1 % njui=6459) NEUTROPHILS - ABS (CELLAVISION)(BEAKER) (test 17.30 K/ul 1.78-5.38 vzko=6222) LYMPHOCYTES - ABS (CELLAVISION)(BEAKER) (test 0.84 K/ul 1.32-3.57 shmk=5868) MONOCYTES - ABS (CELLAVISION)(BEAKER) (test 1.90 K/uL 0.30-0.82 ofop=8242) EOSINOPHILS - ABS (CELLAVISION)(BEAKER) (test 0.84 K/uL 0.04-0.54 fcdu=7822) BASOPHILS - ABS (CELLAVISION)(BEAKER) (test 0.21 K/uL 0.01-0.08 fxge=8992) TOTAL COUNTED (BEAKER) (test xyzg=3929) 100 WBC MORPHOLOGY (BEAKER) (test qize=971) Normal PLT MORPHOLOGY (BEAKER) (test qoqk=729) Normal POLYCHROMATOPHILLIC RBCS(BEAKER) (test kovn=738) 1+ few HYPOCHROMIA (BEAKER) (test jatv=305) 1+ few ANISOCYTOSIS (BEAKER) (test kqgx=534) 1+ few MICROCYTES (BEAKER) (test tqgx=236) 1+ few ARTIFACT (CELLAVISION)(BEAKER) (test coti=2950) Present PLATELET CONCENTRATION (CELLAVISION)(BEAKER) Adequate (test pqsg=3866) Received comment: User comments: Slide comments:POCT-GLUCOSE [id number] 08: 24:00 Test Item Value Reference Range Comments POC-GLUCOSE METER (BEAKER) 106 mg/dL 70-110 TESTED AT [address] (test zrlb=2001) [place] [address] BASIC METABOLIC [id number] 07:45:00 Test Item Value Reference Range Comments SODIUM (BEAKER) (test 137 meq/L 136-145 whze=658) POTASSIUM (BEAKER) (test 4.2 meq/L 3.5-5.1 vcpo=952) CHLORIDE (BEAKER) (test 101 meq/L 98-107 hbdy=551) CO2 (BEAKER) (test 28 meq/L 22-29 oaxh=446) BLOOD UREA NITROGEN 32 mg/dL 7-21 (BEAKER) (test veqg=887) CREATININE (BEAKER) (test 2.65 mg/dL 0.57-1.25 tzxw=491) GLUCOSE RANDOM (BEAKER) 95 mg/dL 70-105 (test beyo=561) CALCIUM (BEAKER) (test 10.6 mg/dL 8.4-10.2 yjku=143) EGFR (BEAKER) (test 25 mL/min/1.73 sq m ESTIMATED GFR IS NOT jyqu=1299) ACCURATE CREATININE CLEARANCE IN PREDICTING GLOMERULAR FILTRATION RATE. ESTIMATED GFR IS NOT APPLICABLE FOR DIALYSIS PATIENTS. POCT-GLUCOSE [id number] 00:57:00 Test Item Value Reference Range Comments POC-GLUCOSE METER (BEAKER) 139 mg/dL 70-110 TESTED AT [address] (test nqpd=7344) [place] [id number] POCT-GLUCOSE [id number] 17:15:00 Test Item Value Reference Range Comments POC-GLUCOSE METER (BEAKER) 142 mg/dL 70-110 TESTED AT [facility] [address] (test jcgt=8718) [facility] [address] CBC W/PLT COUNT & AUTO [id number] 12:22:00 Test Item Value Reference Range Comments WHITE BLOOD CELL COUNT (BEAKER) (test fqsb=946) 29.1 K/ L 3.5-10.5 RED BLOOD CELL COUNT (BEAKER) (test jjww=770) 3.46 M/ L 4.63-6.08 HEMOGLOBIN (BEAKER) (test xupy=814) 8.8 GM/DL 13.7-17.5 HEMATOCRIT (BEAKER) (test cjon=406) 30.1 % 40.1-51.0 MEAN CORPUSCULAR VOLUME (BEAKER) (test lbin=469) 87.0 fL 79.0-92.2 MEAN CORPUSCULAR HEMOGLOBIN (BEAKER) (test 25.4 pg 25.7-32.2 xggy=936) MEAN CORPUSCULAR HEMOGLOBIN CONC (BEAKER) (test 29.2 GM/DL 32.3-36.5 xqtl=848) RED CELL DISTRIBUTION WIDTH (BEAKER) (test 19.5 % 11.6-14.4 lcxr=527) PLATELET COUNT (BEAKER) (test jrmy=971) 364 K/CU MM 150-450 MEAN PLATELET VOLUME (BEAKER) (test jtkk=861) 9.7 fL 9.4-12.4 NUCLEATED RED BLOOD CELLS (BEAKER) (test 0 /100 WBC 0-0 pvnh=298) (CELLAVISION MANUAL DIFF)2018-10-26 12:22:00 Test Item Value Reference Range Comments NEUTROPHILS - REL (CELLAVISION)(BEAKER) (test 90 % zsmk=5289) LYMPHOCYTES - REL (CELLAVISION)(BEAKER) (test 3 % fhpb=0156) MONOCYTES - REL (CELLAVISION)(BEAKER) (test 4 % fuvx=5352) EOSINOPHILS - REL (CELLAVISION)(BEAKER) (test 3 % vzrp=8460) NEUTROPHILS - ABS (CELLAVISION)(BEAKER) (test 26.19 K/ul 1.78-5.38 yoyr=7244) LYMPHOCYTES - ABS (CELLAVISION)(BEAKER) (test 0.87 K/ul 1.32-3.57 jjiw=9675) MONOCYTES - ABS (CELLAVISION)(BEAKER) (test 1.16 K/uL 0.30-0.82 xaff=0950) EOSINOPHILS - ABS (CELLAVISION)(BEAKER) (test 0.87 K/uL 0.04-0.54 werk=3337) TOTAL COUNTED (BEAKER) (test ulpl=5412) 100 WBC MORPHOLOGY (BEAKER) (test dlmx=051) Normal PLT MORPHOLOGY (BEAKER) (test fkwi=000) Normal POLYCHROMATOPHILLIC RBCS(BEAKER) (test shfw=706) 1+ few HYPOCHROMIA (BEAKER) (test bbrn=893) 1+ few PLATELET CONCENTRATION (CELLAVISION)(BEAKER) Adequate (test lsyx=5057) Received comment: User comments: Slide comments:POCT-GLUCOSE [id number] 12: 02:00 Test Item Value Reference Range Comments POC-GLUCOSE METER (BEAKER) 166 mg/dL 70-110 TESTED AT [address] (test rqjq=9397) [facility] [address] BASIC METABOLIC [id number] 08:29:00 Test Item Value Reference Range Comments SODIUM (BEAKER) (test 135 meq/L 136-145 ikhv=363) POTASSIUM (BEAKER) (test 4.9 meq/L 3.5-5.1 wumy=914) CHLORIDE (BEAKER) (test 97 meq/L 98-107 pfcl=562) CO2 (BEAKER) (test 30 meq/L 22-29 kzyj=184) BLOOD UREA NITROGEN 43 mg/dL 7-21 (BEAKER) (test lfwa=057) CREATININE (BEAKER) (test 3.85 mg/dL 0.57-1.25 sjks=376) GLUCOSE RANDOM (BEAKER) 97 mg/dL 70-105 (test vudz=139) CALCIUM (BEAKER) (test 11.6 mg/dL 8.4-10.2 qtou=426) EGFR (BEAKER) (test 16 mL/min/1.73 sq m ESTIMATED GFR IS NOT uvsk=9318) ACCURATE CREATININE CLEARANCE IN PREDICTING GLOMERULAR FILTRATION RATE. ESTIMATED GFR IS NOT APPLICABLE FOR DIALYSIS PATIENTS. C-REACTIVE [id number] 08:24:00 Test Item Value Reference Range Comments C-REACTIVE PROTEIN (BEAKER) (test pgvl=133) 11.00 mg/dL 0.00-0.50 POCT-GLUCOSE [id number] 08:04:00 Test Item Value Reference Range Comments POC-GLUCOSE METER (BEAKER) 111 mg/dL 70-110 TESTED AT [address] (test nxfz=2809) [facility] [address] POCT-GLUCOSE [id number] 21:22:00 Test Item Value Reference Range Comments POC-GLUCOSE METER (BEAKER) 163 mg/dL 70-110 TESTED AT [address] (test ewwh=0873) [facility] [address] POCT-GLUCOSE [id number] 17:51:00 Test Item Value Reference Range Comments POC-GLUCOSE METER (BEAKER) 175 mg/dL 70-110 TESTED AT [address] (test udnu=6058) [facility] [address] POCT-GLUCOSE [id number] 12:38:00 Test Item Value Reference Range Comments POC-GLUCOSE METER (BEAKER) 122 mg/dL 70-110 TESTED AT [address] (test isln=5507) [facility] [address] CBC W/PLT COUNT & AUTO [id number] 11:35:00 Test Item Value Reference Range Comments WHITE BLOOD CELL COUNT (BEAKER) (test uwdu=465) 24.2 K/ L 3.5-10.5 RED BLOOD CELL COUNT (BEAKER) (test yura=449) 3.20 M/ L 4.63-6.08 HEMOGLOBIN (BEAKER) (test blws=726) 8.3 GM/DL 13.7-17.5 HEMATOCRIT (BEAKER) (test wsah=509) 27.8 % 40.1-51.0 MEAN CORPUSCULAR VOLUME (BEAKER) (test lvib=366) 86.9 fL 79.0-92.2 MEAN CORPUSCULAR HEMOGLOBIN (BEAKER) (test 25.9 pg 25.7-32.2 agxu=118) MEAN CORPUSCULAR HEMOGLOBIN CONC (BEAKER) (test 29.9 GM/DL 32.3-36.5 emty=891) RED CELL DISTRIBUTION WIDTH (BEAKER) (test 19.5 % 11.6-14.4 hjtq=344) PLATELET COUNT (BEAKER) (test jwnc=181) 340 K/CU MM 150-450 MEAN PLATELET VOLUME (BEAKER) (test fzmm=198) 10.3 fL 9.4-12.4 NUCLEATED RED BLOOD CELLS (BEAKER) (test 0 /100 WBC 0-0 bqwj=196) (CELLAVISION MANUAL DIFF)2018-10-25 11:35:00 Test Item Value Reference Range Comments NEUTROPHILS - REL (CELLAVISION)(BEAKER) (test 87 % sucx=4504) LYMPHOCYTES - REL (CELLAVISION)(BEAKER) (test 3 % pudc=8206) MONOCYTES - REL (CELLAVISION)(BEAKER) (test 6 % waqq=3668) EOSINOPHILS - REL (CELLAVISION)(BEAKER) (test 2 % gwng=7359) BASOPHILS - REL (CELLAVISION)(BEAKER) (test 2 % pujj=4521) NEUTROPHILS - ABS (CELLAVISION)(BEAKER) (test 21.05 K/ul 1.78-5.38 srsj=4402) LYMPHOCYTES - ABS (CELLAVISION)(BEAKER) (test 0.73 K/ul 1.32-3.57 gnhb=1588) MONOCYTES - ABS (CELLAVISION)(BEAKER) (test 1.45 K/uL 0.30-0.82 uxwk=7216) EOSINOPHILS - ABS (CELLAVISION)(BEAKER) (test 0.48 K/uL 0.04-0.54 wryc=1931) BASOPHILS - ABS (CELLAVISION)(BEAKER) (test 0.48 K/uL 0.01-0.08 tslr=0710) TOTAL COUNTED (BEAKER) (test zwbi=7540) 100 WBC MORPHOLOGY (BEAKER) (test wrzs=106) Normal PLT MORPHOLOGY (BEAKER) (test dntn=326) Normal POLYCHROMATOPHILLIC RBCS(BEAKER) (test lqvj=563) 1+ few HYPOCHROMIA (BEAKER) (test tdld=016) 1+ few ANISOCYTOSIS (BEAKER) (test wkak=187) 1+ few ARTIFACT (CELLAVISION)(BEAKER) (test evbb=0226) Present PLATELET CONCENTRATION (CELLAVISION)(BEAKER) Adequate (test nzlx=5582) Received comment: User comments: Slide comments:POCT-GLUCOSE [id number] 08: 26:00 Test Item Value Reference Range Comments POC-GLUCOSE METER (BEAKER) 100 mg/dL 70-110 TESTED AT [address] (test fzyq=9175) [place] [address] POCT-GLUCOSE [id number] 07:48:00 Test Item Value Reference Range Comments POC-GLUCOSE METER (BEAKER) 171 mg/dL 70-110 TESTED AT [address] (test xmcq=7216) [place] [address] BASIC METABOLIC [id number] 07:00:00 Test Item Value Reference Range Comments SODIUM (BEAKER) (test 138 meq/L 136-145 mqau=961) POTASSIUM (BEAKER) (test 4.4 meq/L 3.5-5.1 qiqx=180) CHLORIDE (BEAKER) (test 99 meq/L 98-107 eokj=059) CO2 (BEAKER) (test 28 meq/L 22-29 xuzo=126) BLOOD UREA NITROGEN 26 mg/dL 7-21 (BEAKER) (test pmtx=038) CREATININE (BEAKER) (test 2.65 mg/dL 0.57-1.25 hepd=414) GLUCOSE RANDOM (BEAKER) 65 mg/dL 70-105 (test zora=477) CALCIUM (BEAKER) (test 10.4 mg/dL 8.4-10.2 abox=234) EGFR (BEAKER) (test 25 mL/min/1.73 sq m ESTIMATED GFR IS NOT myrd=2152) ACCURATE CREATININE CLEARANCE IN PREDICTING GLOMERULAR FILTRATION RATE. ESTIMATED GFR IS NOT APPLICABLE FOR DIALYSIS PATIENTS. POCT-GLUCOSE [id number] 21:14:00 Test Item Value Reference Range Comments POC-GLUCOSE METER (BEAKER) 121 mg/dL 70-110 TESTED AT [address] (test tjgu=5655) [place] [address] POCT-GLUCOSE [id number] 11:32:00 Test Item Value Reference Range Comments POC-GLUCOSE METER (BEAKER) 138 mg/dL 70-110 TESTED AT [address] (test xbgo=8218) [place] [address] BASIC METABOLIC [id number] 10:02:00 Test Item Value Reference Range Comments SODIUM (BEAKER) (test 139 meq/L 136-145 xsls=296) POTASSIUM (BEAKER) (test 5.1 meq/L 3.5-5.1 jchz=987) CHLORIDE (BEAKER) (test 101 meq/L 98-107 gpmo=113) CO2 (BEAKER) (test 28 meq/L 22-29 ehxv=352) BLOOD UREA NITROGEN 51 mg/dL 7-21 (BEAKER) (test ohkz=236) CREATININE (BEAKER) (test 4.15 mg/dL 0.57-1.25 jvdp=073) GLUCOSE RANDOM (BEAKER) 107 mg/dL 70-105 (test klba=502) CALCIUM (BEAKER) (test 11.6 mg/dL 8.4-10.2 dqoj=512) EGFR (BEAKER) (test 15 mL/min/1.73 sq m ESTIMATED GFR IS NOT chnl=8399) ACCURATE CREATININE CLEARANCE IN PREDICTING GLOMERULAR FILTRATION RATE. ESTIMATED GFR IS NOT APPLICABLE FOR DIALYSIS PATIENTS. POCT-GLUCOSE [id number] 08:13:00 Test Item Value Reference Range Comments POC-GLUCOSE METER (BEAKER) 147 mg/dL 70-110 TESTED AT [facility] [address] [facility] (test zyxv=2089) [facility] [address] CBC W/PLT COUNT & AUTO [id number] 05:33:00 Test Item Value Reference Range Comments WHITE BLOOD CELL COUNT (BEAKER) (test zoly=493) 23.8 K/ L 3.5-10.5 RED BLOOD CELL COUNT (BEAKER) (test ygtb=656) 3.19 M/ L 4.63-6.08 HEMOGLOBIN (BEAKER) (test jyos=028) 8.1 GM/DL 13.7-17.5 HEMATOCRIT (BEAKER) (test xlnn=093) 28.0 % 40.1-51.0 MEAN CORPUSCULAR VOLUME (BEAKER) (test nvgt=361) 87.8 fL 79.0-92.2 MEAN CORPUSCULAR HEMOGLOBIN (BEAKER) (test 25.4 pg 25.7-32.2 royi=660) MEAN CORPUSCULAR HEMOGLOBIN CONC (BEAKER) (test 28.9 GM/DL 32.3-36.5 gtdx=135) RED CELL DISTRIBUTION WIDTH (BEAKER) (test 19.4 % 11.6-14.4 zfsf=827) PLATELET COUNT (BEAKER) (test hqob=032) 309 K/CU MM 150-450 MEAN PLATELET VOLUME (BEAKER) (test nlpk=050) 10.1 fL 9.4-12.4 NUCLEATED RED BLOOD CELLS (BEAKER) (test 0 /100 WBC 0-0 kswz=870) NEUTROPHILS RELATIVE PERCENT (BEAKER) (test 80 % mrpk=730) LYMPHOCYTES RELATIVE PERCENT (BEAKER) (test 5 % tvbo=674) MONOCYTES RELATIVE PERCENT (BEAKER) (test 7 % jgke=414) EOSINOPHILS RELATIVE PERCENT (BEAKER) (test 4 % nizr=614) BASOPHILS RELATIVE PERCENT (BEAKER) (test 1 % oldp=417) NEUTROPHILS ABSOLUTE COUNT (BEAKER) (test 19.06 K/ L 1.78-5.38 ziug=831) LYMPHOCYTES ABSOLUTE COUNT (BEAKER) (test 1.18 K/ L 1.32-3.57 zskd=487) MONOCYTES ABSOLUTE COUNT (BEAKER) (test 1.77 K/ L 0.30-0.82 xnot=159) EOSINOPHILS ABSOLUTE COUNT (BEAKER) (test 0.91 K/ L 0.04-0.54 ogpb=679) BASOPHILS ABSOLUTE COUNT (BEAKER) (test 0.13 K/ L 0.01-0.08 tphb=445) IMMATURE GRANULOCYTES-RELATIVE PERCENT (BEAKER) 3 % 0-1 (test kxuh=7169) POCT-GLUCOSE [id number] 20:53:00 Test Item Value Reference Range Comments POC-GLUCOSE METER (BEAKER) 147 mg/dL 70-110 TESTED AT [address] (test ezwq=4753) [place] [address] ANAEROBIC [id number] 17:56:00 Test Item Value Reference Range Comments CULTURE (BEAKER) (test qzpu=0180) No anaerobes isolated POCT-GLUCOSE [id number] 17:02:00 Test Item Value Reference Range Comments POC-GLUCOSE METER (BEAKER) 184 mg/dL 70-110 TESTED AT [address] (test ehqv=6039) [place] [address] POCT-GLUCOSE [id number] 11:25:00 Test Item Value Reference Range Comments POC-GLUCOSE METER (BEAKER) 144 mg/dL 70-110 TESTED AT [address] (test mlpd=9558) [place] [address] SURGICALLY OBTAINED CULTURE + GRAM [id number] 10:26:00 Test Item Value Reference Range Comments CULTURE (BEAKER) (test gpvm=0965) No growth GRAM STAIN RESULT (BEAKER) (test No white blood cells seen bmjb=3189) GRAM STAIN RESULT (BEAKER) (test No organisms seen wxtr=98349) CBC W/PLT COUNT & AUTO [id number] 10:18:00 Test Item Value Reference Range Comments WHITE BLOOD CELL COUNT (BEAKER) (test rilr=089) 24.3 K/ L 3.5-10.5 RED BLOOD CELL COUNT (BEAKER) (test lwws=759) 3.23 M/ L 4.63-6.08 HEMOGLOBIN (BEAKER) (test xzao=582) 8.2 GM/DL 13.7-17.5 HEMATOCRIT (BEAKER) (test gwzg=009) 28.3 % 40.1-51.0 MEAN CORPUSCULAR VOLUME (BEAKER) (test qraq=864) 87.6 fL 79.0-92.2 MEAN CORPUSCULAR HEMOGLOBIN (BEAKER) (test 25.4 pg 25.7-32.2 rzlo=400) MEAN CORPUSCULAR HEMOGLOBIN CONC (BEAKER) (test 29.0 GM/DL 32.3-36.5 xqng=433) RED CELL DISTRIBUTION WIDTH (BEAKER) (test 19.2 % 11.6-14.4 sukg=645) PLATELET COUNT (BEAKER) (test qncf=481) 311 K/CU MM 150-450 MEAN PLATELET VOLUME (BEAKER) (test rnru=100) 10.5 fL 9.4-12.4 NUCLEATED RED BLOOD CELLS (BEAKER) (test 0 /100 WBC 0-0 oyzj=415) (CELLAVISION MANUAL DIFF)2018-10-23 10:18:00 Test Item Value Reference Range Comments NEUTROPHILS - REL (CELLAVISION)(BEAKER) (test 83 % qxxv=8147) MONOCYTES - REL (CELLAVISION)(BEAKER) (test 6 % fhxd=1870) EOSINOPHILS - REL (CELLAVISION)(BEAKER) (test 3 % hmby=4075) METAMYELOCYTES - REL (CELLAVISION)(BEAKER) (test 1 % 0-0 wady=4918) BANDS - REL (CELLAVISION)(BEAKER) (test 7 % 0-10 urxw=5895) NEUTROPHILS - ABS (CELLAVISION)(BEAKER) (test 20.17 K/ul 1.78-5.38 xcwd=0343) MONOCYTES - ABS (CELLAVISION)(BEAKER) (test 1.46 K/uL 0.30-0.82 reob=0937) EOSINOPHILS - ABS (CELLAVISION)(BEAKER) (test 0.73 K/uL 0.04-0.54 piqb=2849) METAMYELOCYTES - ABS (CELLAVISION)(BEAKER) (test 0.24 K/uL 0.00-0.00 zdsu=7423) BANDS - ABS (CELLAVISION)(BEAKER) (test 1.70 K/uL 0.00-0.80 quto=4571) TOTAL COUNTED (BEAKER) (test fhgl=6961) 100 WBC MORPHOLOGY (BEAKER) (test nktx=721) Normal PLT MORPHOLOGY (BEAKER) (test gcnl=107) Normal POLYCHROMATOPHILLIC RBCS(BEAKER) (test tgnu=626) 2+ moderate ANISOCYTOSIS (BEAKER) (test mtss=286) 2+ moderate POIKILOCYTES (BEAKER) (test fing=580) 2+ moderate ARTIFACT (CELLAVISION)(BEAKER) (test gtoa=7313) Present PLATELET CONCENTRATION (CELLAVISION)(BEAKER) Adequate (test mfel=7037) Received comment: User comments: Slide comments:BASIC METABOLIC [id number] 10:02:00 Test Item Value Reference Range Comments SODIUM (BEAKER) (test 136 meq/L 136-145 gftn=908) POTASSIUM (BEAKER) (test 4.2 meq/L 3.5-5.1 wlrl=542) CHLORIDE (BEAKER) (test 100 meq/L 98-107 jacx=023) CO2 (BEAKER) (test 27 meq/L 22-29 zpey=894) BLOOD UREA NITROGEN 31 mg/dL 7-21 (BEAKER) (test lvir=266) CREATININE (BEAKER) (test 2.89 mg/dL 0.57-1.25 ggqn=331) GLUCOSE RANDOM (BEAKER) 112 mg/dL 70-105 (test bywp=444) CALCIUM (BEAKER) (test 10.3 mg/dL 8.4-10.2 pmpj=730) EGFR (BEAKER) (test 22 mL/min/1.73 sq m ESTIMATED GFR IS NOT ghvx=7354) ACCURATE CREATININE CLEARANCE IN PREDICTING GLOMERULAR FILTRATION RATE. ESTIMATED GFR IS NOT APPLICABLE FOR DIALYSIS PATIENTS. POCT-GLUCOSE [id number] 08:12:00 Test Item Value Reference Range Comments POC-GLUCOSE METER (BEAKER) 100 mg/dL 70-110 TESTED AT [address] (test ikfh=1042) [place] [id number] POCT-GLUCOSE [id number] 21:57:00 Test Item Value Reference Range Comments POC-GLUCOSE METER (BEAKER) 195 mg/dL 70-110 TESTED AT [address] (test xdsz=6310) [place] [id number] POCT-GLUCOSE [id number] 16:23:00 Test Item Value Reference Range Comments POC-GLUCOSE METER (BEAKER) 130 mg/dL 70-110 TESTED AT [address] (test hzuk=4103) [place] [id number] CBC W/PLT COUNT & AUTO [id number] 14:03:00 Test Item Value Reference Range Comments WHITE BLOOD CELL COUNT (BEAKER) (test yicg=933) 26.2 K/ L 3.5-10.5 RED BLOOD CELL COUNT (BEAKER) (test jqwa=810) 3.19 M/ L 4.63-6.08 HEMOGLOBIN (BEAKER) (test lxvs=453) 8.2 GM/DL 13.7-17.5 HEMATOCRIT (BEAKER) (test cgjz=845) 27.9 % 40.1-51.0 MEAN CORPUSCULAR VOLUME (BEAKER) (test ufdq=176) 87.5 fL 79.0-92.2 MEAN CORPUSCULAR HEMOGLOBIN (BEAKER) (test 25.7 pg 25.7-32.2 tyta=057) MEAN CORPUSCULAR HEMOGLOBIN CONC (BEAKER) (test 29.4 GM/DL 32.3-36.5 uahf=615) RED CELL DISTRIBUTION WIDTH (BEAKER) (test 19.1 % 11.6-14.4 tydp=057) PLATELET COUNT (BEAKER) (test rgzr=176) 317 K/CU MM 150-450 MEAN PLATELET VOLUME (BEAKER) (test dsyr=082) 10.5 fL 9.4-12.4 NUCLEATED RED BLOOD CELLS (BEAKER) (test 0 /100 WBC 0-0 duql=653) (CELLAVISION MANUAL DIFF)2018-10-22 14:03:00 Test Item Value Reference Range Comments NEUTROPHILS - REL (CELLAVISION)(BEAKER) (test 94 % vidd=2986) LYMPHOCYTES - REL (CELLAVISION)(BEAKER) (test 1 % pamo=4749) MONOCYTES - REL (CELLAVISION)(BEAKER) (test 5 % maxx=2158) NEUTROPHILS - ABS (CELLAVISION)(BEAKER) (test 24.63 K/ul 1.78-5.38 xruj=0847) LYMPHOCYTES - ABS (CELLAVISION)(BEAKER) (test 0.26 K/ul 1.32-3.57 qwjw=8268) MONOCYTES - ABS (CELLAVISION)(BEAKER) (test 1.31 K/uL 0.30-0.82 mduh=9916) TOTAL COUNTED (BEAKER) (test boob=2454) 100 WBC MORPHOLOGY (BEAKER) (test wtgl=829) Normal PLT MORPHOLOGY (BEAKER) (test mhqa=059) Normal POLYCHROMATOPHILLIC RBCS(BEAKER) (test plww=105) 1+ few ANISOCYTOSIS (BEAKER) (test ufdu=519) 1+ few POIKILOCYTES (BEAKER) (test gumd=743) 1+ few PLATELET CONCENTRATION (CELLAVISION)(BEAKER) Adequate (test kfpv=5394) Received comment: User comments: Slide comments:CREATINE KINASE (CK)2018-10-22 10:51:00 Test Item Value Reference Range Comments CREATINE KINASE TOTAL (BEAKER) (test cnbn=435) 9 U/L 29-200 BASIC METABOLIC [id number] 10:51:00 Test Item Value Reference Range Comments SODIUM (BEAKER) (test 136 meq/L 136-145 atqx=829) POTASSIUM (BEAKER) (test 5.2 meq/L 3.5-5.1 imvw=341) CHLORIDE (BEAKER) (test 99 meq/L 98-107 ppag=735) CO2 (BEAKER) (test 25 meq/L 22-29 pgmd=015) BLOOD UREA NITROGEN 50 mg/dL 7-21 (BEAKER) (test jcko=443) CREATININE (BEAKER) (test 4.42 mg/dL 0.57-1.25 bnad=941) GLUCOSE RANDOM (BEAKER) 95 mg/dL 70-105 (test wctn=262) CALCIUM (BEAKER) (test 10.8 mg/dL 8.4-10.2 mxjb=322) EGFR (BEAKER) (test 14 mL/min/1.73 sq m ESTIMATED GFR IS NOT opjq=5356) ACCURATE CREATININE CLEARANCE IN PREDICTING GLOMERULAR FILTRATION RATE. ESTIMATED GFR IS NOT APPLICABLE FOR DIALYSIS PATIENTS. SPIN/CONCENTRATION [id number] 10:41:00 Test Item Value Reference Range Comments CONCENTRATION CHARGED (BEAKER) (test lexo=3022) Done POCT-GLUCOSE [id number] 08:13:00 Test Item Value Reference Range Comments POC-GLUCOSE METER (BEAKER) 137 mg/dL 70-110 TESTED AT [address] (test foae=6715) [place] [address] POCT-GLUCOSE [id number] 21:51:00 Test Item Value Reference Range Comments POC-GLUCOSE METER (BEAKER) 135 mg/dL 70-110 TESTED AT [address] (test rgfu=8912) [place] [address] POCT-GLUCOSE [id number] 16:57:00 Test Item Value Reference Range Comments POC-GLUCOSE METER (BEAKER) 152 mg/dL 70-110 TESTED AT [address] (test amiy=7000) [place] [address] CREATINE KINASE (CK)2018-10-21 13:32:00 Test Item Value Reference Range Comments CREATINE KINASE TOTAL (BEAKER) (test lsta=894) 13 U/L 29-200 CBC W/PLT COUNT & AUTO [id number] 13:27:00 Test Item Value Reference Range Comments WHITE BLOOD CELL COUNT (BEAKER) (test ssce=939) 29.1 K/ L 3.5-10.5 RED BLOOD CELL COUNT (BEAKER) (test zgku=899) 3.22 M/ L 4.63-6.08 HEMOGLOBIN (BEAKER) (test tdem=308) 8.2 GM/DL 13.7-17.5 HEMATOCRIT (BEAKER) (test nset=531) 28.6 % 40.1-51.0 MEAN CORPUSCULAR VOLUME (BEAKER) (test eztq=691) 88.8 fL 79.0-92.2 MEAN CORPUSCULAR HEMOGLOBIN (BEAKER) (test 25.5 pg 25.7-32.2 tysh=173) MEAN CORPUSCULAR HEMOGLOBIN CONC (BEAKER) (test 28.7 GM/DL 32.3-36.5 dyxe=289) RED CELL DISTRIBUTION WIDTH (BEAKER) (test 19.4 % 11.6-14.4 awix=177) PLATELET COUNT (BEAKER) (test rqhd=178) 315 K/CU MM 150-450 MEAN PLATELET VOLUME (BEAKER) (test lskc=090) 10.2 fL 9.4-12.4 NUCLEATED RED BLOOD CELLS (BEAKER) (test 0 /100 WBC 0-0 nxjz=469) (CELLAVISION MANUAL DIFF)2018-10-21 13:27:00 Test Item Value Reference Range Comments NEUTROPHILS - REL (CELLAVISION)(BEAKER) (test 89 % aphd=3072) LYMPHOCYTES - REL (CELLAVISION)(BEAKER) (test 5 % bewi=8180) MONOCYTES - REL (CELLAVISION)(BEAKER) (test 5 % ognm=7188) EOSINOPHILS - REL (CELLAVISION)(BEAKER) (test 1 % nhqz=4219) NEUTROPHILS - ABS (CELLAVISION)(BEAKER) (test 25.90 K/ul 1.78-5.38 lobw=2334) LYMPHOCYTES - ABS (CELLAVISION)(BEAKER) (test 1.46 K/ul 1.32-3.57 vkub=2920) MONOCYTES - ABS (CELLAVISION)(BEAKER) (test 1.46 K/uL 0.30-0.82 qreq=0388) EOSINOPHILS - ABS (CELLAVISION)(BEAKER) (test 0.29 K/uL 0.04-0.54 dvlv=2799) TOTAL COUNTED (BEAKER) (test oytu=1163) 100 MANUAL NRBC PER 100 CELLS (BEAKER) (test 1 /100 WBC 0-0 lgja=0027) WBC MORPHOLOGY (BEAKER) (test egak=355) Normal PLT MORPHOLOGY (BEAKER) (test qobl=386) Normal POLYCHROMATOPHILLIC RBCS(BEAKER) (test jiiy=203) 1+ few HYPOCHROMIA (BEAKER) (test tfne=232) 1+ few ANISOCYTOSIS (BEAKER) (test ttyw=158) 1+ few POIKILOCYTES (BEAKER) (test netm=859) 1+ few ARTIFACT (CELLAVISION)(BEAKER) (test wuik=5667) Present PLATELET CONCENTRATION (CELLAVISION)(BEAKER) Adequate (test yxep=6496) Received comment: User comments: Slide comments:BASIC METABOLIC [id number] 08:02:00 Test Item Value Reference Range Comments SODIUM (BEAKER) (test 136 meq/L 136-145 brzt=853) POTASSIUM (BEAKER) (test 4.3 meq/L 3.5-5.1 xktl=960) CHLORIDE (BEAKER) (test 101 meq/L 98-107 phqd=174) CO2 (BEAKER) (test 24 meq/L 22-29 pkgw=915) BLOOD UREA NITROGEN 36 mg/dL 7-21 (BEAKER) (test lpix=871) CREATININE (BEAKER) (test 3.51 mg/dL 0.57-1.25 snwd=689) GLUCOSE RANDOM (BEAKER) 106 mg/dL 70-105 (test wqga=539) CALCIUM (BEAKER) (test 9.6 mg/dL 8.4-10.2 spzd=333) EGFR (BEAKER) (test 18 mL/min/1.73 sq m ESTIMATED GFR IS NOT txjs=0527) ACCURATE CREATININE CLEARANCE IN PREDICTING GLOMERULAR FILTRATION RATE. ESTIMATED GFR IS NOT APPLICABLE FOR DIALYSIS PATIENTS. POCT-GLUCOSE [id number] 07:58:00 Test Item Value Reference Range Comments POC-GLUCOSE METER (BEAKER) 134 mg/dL 70-110 TESTED AT [facility] [address] [facility] (test aqgd=6632) [facility] [address] POCT-GLUCOSE [id number] 21:13:00 Test Item Value Reference Range Comments POC-GLUCOSE METER (BEAKER) 199 mg/dL 70-110 TESTED AT [place] [id number] [facility] (test ciko=1080) [facility] [address] POCT-GLUCOSE [id number] 20:45:00 Test Item Value Reference Range Comments POC-GLUCOSE METER (BEAKER) 227 mg/dL 70-110 TESTED AT [address] (test czss=2014) [facility] [address] POCT-GLUCOSE [id number] 17:24:00 Test Item Value Reference Range Comments POC-GLUCOSE METER (BEAKER) 211 mg/dL 70-110 TESTED AT [address] (test wsbm=7580) [facility] [address] POCT-GLUCOSE [id number] 11:12:00 Test Item Value Reference Range Comments POC-GLUCOSE METER (BEAKER) 136 mg/dL 70-110 TESTED AT [address] (test vnul=5209) [facility] [address] POCT-GLUCOSE [id number] 08:04:00 Test Item Value Reference Range Comments POC-GLUCOSE METER (BEAKER) 153 mg/dL 70-110 TESTED AT [address] (test idbr=3691) [facility] [address] [id number] 07:46:00 Test Item Value Reference Range Comments POTASSIUM (BEAKER) (test hmlp=176) 3.6 meq/L 3.5-5.1 POCT-GLUCOSE [id number] 21:32:00 Test Item Value Reference Range Comments POC-GLUCOSE METER (BEAKER) 155 mg/dL 70-110 TESTED AT [address] (test oihg=4384) [facility] [address] COMPREHENSIVE METABOLIC [id number] 15:59:00 Test Item Value Reference Range Comments TOTAL PROTEIN (BEAKER) 6.4 gm/dL 6.0-8.3 (test zupu=904) ALBUMIN (BEAKER) (test 2.5 g/dL 3.5-5.0 vdgu=0998) ALKALINE PHOSPHATASE 119 U/L 40-150 (BEAKER) (test rsnj=806) BILIRUBIN TOTAL (BEAKER) 0.4 mg/dL 0.2-1.2 (test qlns=156) SODIUM (BEAKER) (test 139 meq/L 136-145 whup=389) POTASSIUM (BEAKER) (test 4.7 meq/L 3.5-5.1 noqd=424) CHLORIDE (BEAKER) (test 102 meq/L 98-107 nutm=022) CO2 (BEAKER) (test 26 meq/L 22-29 bara=615) BLOOD UREA NITROGEN 49 mg/dL 7-21 (BEAKER) (test bugo=208) CREATININE (BEAKER) (test 4.36 mg/dL 0.57-1.25 mskl=993) GLUCOSE RANDOM (BEAKER) 142 mg/dL 70-105 (test lfpa=592) CALCIUM (BEAKER) (test 9.5 mg/dL 8.4-10.2 dtnn=065) AST (SGOT) (BEAKER) (test 16 U/L 5-34 pgjg=422) ALT (SGPT) (BEAKER) (test 16 U/L 6-55 qbqu=477) EGFR (BEAKER) (test 14 mL/min/1.73 sq m ESTIMATED GFR IS NOT frfo=7172) ACCURATE CREATININE CLEARANCE IN PREDICTING GLOMERULAR FILTRATION RATE. ESTIMATED GFR IS NOT APPLICABLE FOR DIALYSIS PATIENTS. CREATINE KINASE (CK)2018-10-19 15:59:00 Test Item Value Reference Range Comments CREATINE KINASE TOTAL (BEAKER) (test spgt=597) 10 U/L 29-200 POCT-GLUCOSE [id number] 12:09:00 Test Item Value Reference Range Comments POC-GLUCOSE METER (BEAKER) 172 mg/dL 70-110 TESTED AT [address] (test vujy=9737) [facility] [address] POCT-GLUCOSE [id number] 07:56:00 Test Item Value Reference Range Comments POC-GLUCOSE METER (BEAKER) 114 mg/dL 70-110 TESTED AT [address] (test bggr=7365) [facility] [address] CBC W/PLT COUNT & AUTO [id number] 06:51:00 Test Item Value Reference Range Comments WHITE BLOOD CELL COUNT (BEAKER) (test tnys=177) 20.2 K/ L 3.5-10.5 RED BLOOD CELL COUNT (BEAKER) (test hpyp=012) 3.27 M/ L 4.63-6.08 HEMOGLOBIN (BEAKER) (test tvpu=171) 8.4 GM/DL 13.7-17.5 HEMATOCRIT (BEAKER) (test xoyb=798) 28.2 % 40.1-51.0 MEAN CORPUSCULAR VOLUME (BEAKER) (test zxsk=180) 86.2 fL 79.0-92.2 MEAN CORPUSCULAR HEMOGLOBIN (BEAKER) (test 25.7 pg 25.7-32.2 zqkc=619) MEAN CORPUSCULAR HEMOGLOBIN CONC (BEAKER) (test 29.8 GM/DL 32.3-36.5 sbum=253) RED CELL DISTRIBUTION WIDTH (BEAKER) (test 19.1 % 11.6-14.4 gexd=593) PLATELET COUNT (BEAKER) (test fccy=687) 310 K/CU MM 150-450 MEAN PLATELET VOLUME (BEAKER) (test rzsc=472) 9.8 fL 9.4-12.4 NUCLEATED RED BLOOD CELLS (BEAKER) (test 0 /100 WBC 0-0 klpb=412) NEUTROPHILS RELATIVE PERCENT (BEAKER) (test 81 % gijw=047) LYMPHOCYTES RELATIVE PERCENT (BEAKER) (test 6 % zkoo=926) MONOCYTES RELATIVE PERCENT (BEAKER) (test 7 % mutq=547) EOSINOPHILS RELATIVE PERCENT (BEAKER) (test 4 % fysg=804) BASOPHILS RELATIVE PERCENT (BEAKER) (test 1 % evpd=575) NEUTROPHILS ABSOLUTE COUNT (BEAKER) (test 16.33 K/ L 1.78-5.38 mwmq=104) LYMPHOCYTES ABSOLUTE COUNT (BEAKER) (test 1.13 K/ L 1.32-3.57 btyu=368) MONOCYTES ABSOLUTE COUNT (BEAKER) (test 1.46 K/ L 0.30-0.82 hxjv=705) EOSINOPHILS ABSOLUTE COUNT (BEAKER) (test 0.78 K/ L 0.04-0.54 akfw=055) BASOPHILS ABSOLUTE COUNT (BEAKER) (test 0.12 K/ L 0.01-0.08 pqzz=476) IMMATURE GRANULOCYTES-RELATIVE PERCENT (BEAKER) 2 % 0-1 (test spix=3560) POCT-GLUCOSE [id number] 23:15:00 Test Item Value Reference Range Comments POC-GLUCOSE METER (BEAKER) 127 mg/dL 70-110 TESTED AT [address] (test hnka=7267) [facility] [address] POCT-GLUCOSE [id number] 17:05:00 Test Item Value Reference Range Comments POC-GLUCOSE METER (BEAKER) 125 mg/dL 70-110 TESTED AT [address] (test zxen=9285) [facility] [address] POCT-GLUCOSE [id number] 11:31:00 Test Item Value Reference Range Comments POC-GLUCOSE METER (BEAKER) 185 mg/dL 70-110 TESTED AT [place] [id number] [facility] (test zrtn=2682) [facility] [address] POCT-GLUCOSE [id number] 22:10:00 Test Item Value Reference Range Comments POC-GLUCOSE METER (BEAKER) 231 mg/dL 70-110 TESTED AT [address] (test xtof=3899) [place] [id number] POCT-GLUCOSE [id number] 15:51:00 Test Item Value Reference Range Comments POC-GLUCOSE METER (BEAKER) 121 mg/dL 70-110 TESTED AT [address] (test gsqv=7046) [facility] [address] CBC W/PLT COUNT & AUTO [id number] 11:29:00 Test Item Value Reference Range Comments WHITE BLOOD CELL COUNT (BEAKER) (test qfwf=780) 29.9 K/ L 3.5-10.5 RED BLOOD CELL COUNT (BEAKER) (test rzkl=739) 3.53 M/ L 4.63-6.08 HEMOGLOBIN (BEAKER) (test knml=678) 9.0 GM/DL 13.7-17.5 HEMATOCRIT (BEAKER) (test afrr=563) 30.5 % 40.1-51.0 MEAN CORPUSCULAR VOLUME (BEAKER) (test lupl=594) 86.4 fL 79.0-92.2 MEAN CORPUSCULAR HEMOGLOBIN (BEAKER) (test 25.5 pg 25.7-32.2 yleo=861) MEAN CORPUSCULAR HEMOGLOBIN CONC (BEAKER) (test 29.5 GM/DL 32.3-36.5 ewsx=480) RED CELL DISTRIBUTION WIDTH (BEAKER) (test 19.6 % 11.6-14.4 oeen=979) PLATELET COUNT (BEAKER) (test bmvw=073) 381 K/CU MM 150-450 MEAN PLATELET VOLUME (BEAKER) (test ljaa=361) 10.6 fL 9.4-12.4 NUCLEATED RED BLOOD CELLS (BEAKER) (test 0 /100 WBC 0-0 dxke=310) (CELLAVISION MANUAL DIFF)2018-10-17 11:29:00 Test Item Value Reference Range Comments NEUTROPHILS - REL (CELLAVISION)(BEAKER) (test 85 % qbex=2931) LYMPHOCYTES - REL (CELLAVISION)(BEAKER) (test 6 % esyq=5935) MONOCYTES - REL (CELLAVISION)(BEAKER) (test 6 % zryx=8017) EOSINOPHILS - REL (CELLAVISION)(BEAKER) (test 2 % upgn=3680) BASOPHILS - REL (CELLAVISION)(BEAKER) (test 1 % ijkc=4141) NEUTROPHILS - ABS (CELLAVISION)(BEAKER) (test 25.42 K/ul 1.78-5.38 hdul=7357) LYMPHOCYTES - ABS (CELLAVISION)(BEAKER) (test 1.79 K/ul 1.32-3.57 hdan=7353) MONOCYTES - ABS (CELLAVISION)(BEAKER) (test 1.79 K/uL 0.30-0.82 jakf=4119) EOSINOPHILS - ABS (CELLAVISION)(BEAKER) (test 0.60 K/uL 0.04-0.54 cwiv=8721) BASOPHILS - ABS (CELLAVISION)(BEAKER) (test 0.30 K/uL 0.01-0.08 zeer=3216) TOTAL COUNTED (BEAKER) (test widm=4991) 100 WBC MORPHOLOGY (BEAKER) (test lcus=384) Normal PLT MORPHOLOGY (BEAKER) (test ugli=077) Normal POLYCHROMATOPHILLIC RBCS(BEAKER) (test lhxo=440) 1+ few ANISOCYTOSIS (BEAKER) (test hrlz=221) 1+ few POIKILOCYTES (BEAKER) (test iqin=384) 1+ few ARTIFACT (CELLAVISION)(BEAKER) (test qewt=0157) Present PLATELET CONCENTRATION (CELLAVISION)(BEAKER) Adequate (test nccv=9479) Received comment: User comments: Slide comments:POCT-GLUCOSE [id number] 18: 50:00 Test Item Value Reference Range Comments POC-GLUCOSE METER (BEAKER) 111 mg/dL 70-110 TESTED AT [facility] [address] [facility] (test kovj=9467) [facility] [address] POCT-GLUCOSE [id number] 12:44:00 Test Item Value Reference Range Comments POC-GLUCOSE METER (BEAKER) 142 mg/dL 70-110 TESTED AT [address] (test vmol=6850) [facility] [address] POCT-GLUCOSE [id number] 08:45:00 Test Item Value Reference Range Comments POC-GLUCOSE METER (BEAKER) 113 mg/dL 70-110 TESTED AT [address] (test htwf=1726) [facility] [address] POCT-GLUCOSE [id number] 21:27:00 Test Item Value Reference Range Comments POC-GLUCOSE METER (BEAKER) 124 mg/dL 70-110 TESTED AT [address] (test mdlk=2162) [facility] [address] POCT-GLUCOSE [id number] 16:35:00 Test Item Value Reference Range Comments POC-GLUCOSE METER (BEAKER) 121 mg/dL 70-110 TESTED AT [address] (test qnie=3598) [place] [id number] POCT-GLUCOSE [id number] 12:48:00 Test Item Value Reference Range Comments POC-GLUCOSE METER (BEAKER) 134 mg/dL 70-110 TESTED AT [address] (test gael=8538) [place] [id number] CBC W/PLT COUNT & AUTO [id number] 11:01:00 Test Item Value Reference Range Comments WHITE BLOOD CELL COUNT (BEAKER) (test rkhv=640) 29.6 K/ L 3.5-10.5 RED BLOOD CELL COUNT (BEAKER) (test tygb=418) 2.99 M/ L 4.63-6.08 HEMOGLOBIN (BEAKER) (test ufzs=471) 7.7 GM/DL 13.7-17.5 HEMATOCRIT (BEAKER) (test vyss=124) 25.9 % 40.1-51.0 MEAN CORPUSCULAR VOLUME (BEAKER) (test gzoh=953) 86.6 fL 79.0-92.2 MEAN CORPUSCULAR HEMOGLOBIN (BEAKER) (test 25.8 pg 25.7-32.2 tppt=177) MEAN CORPUSCULAR HEMOGLOBIN CONC (BEAKER) (test 29.7 GM/DL 32.3-36.5 mgqt=268) RED CELL DISTRIBUTION WIDTH (BEAKER) (test 19.6 % 11.6-14.4 lhxl=213) PLATELET COUNT (BEAKER) (test xnfg=472) 337 K/CU MM 150-450 MEAN PLATELET VOLUME (BEAKER) (test lzpu=269) 10.9 fL 9.4-12.4 NUCLEATED RED BLOOD CELLS (BEAKER) (test 0 /100 WBC 0-0 cmar=106) (CELLAVISION MANUAL DIFF)2018-10-15 11:01:00 Test Item Value Reference Range Comments NEUTROPHILS - REL (CELLAVISION)(BEAKER) (test 92 % joeo=3152) LYMPHOCYTES - REL (CELLAVISION)(BEAKER) (test 2 % repd=7463) MONOCYTES - REL (CELLAVISION)(BEAKER) (test 4 % xxdw=1152) EOSINOPHILS - REL (CELLAVISION)(BEAKER) (test 2 % exqw=3732) NEUTROPHILS - ABS (CELLAVISION)(BEAKER) (test 27.23 K/ul 1.78-5.38 pgss=8588) LYMPHOCYTES - ABS (CELLAVISION)(BEAKER) (test 0.59 K/ul 1.32-3.57 xnvv=3973) MONOCYTES - ABS (CELLAVISION)(BEAKER) (test 1.18 K/uL 0.30-0.82 pemk=9954) EOSINOPHILS - ABS (CELLAVISION)(BEAKER) (test 0.59 K/uL 0.04-0.54 tdks=7912) TOTAL COUNTED (BEAKER) (test jcax=1604) 100 WBC MORPHOLOGY (BEAKER) (test pnhc=637) Normal PLT MORPHOLOGY (BEAKER) (test xypa=013) Normal POLYCHROMATOPHILLIC RBCS(BEAKER) (test jaan=375) 1+ few HYPOCHROMIA (BEAKER) (test uwau=008) 1+ few ARTIFACT (CELLAVISION)(BEAKER) (test mouw=5553) Present PLATELET CONCENTRATION (CELLAVISION)(BEAKER) Adequate (test dkah=0408) Received comment: User comments: Slide comments:BASIC METABOLIC [id number] 07:54:00 Test Item Value Reference Range Comments SODIUM (BEAKER) (test 135 meq/L 136-145 dtcb=613) POTASSIUM (BEAKER) (test 5.7 meq/L 3.5-5.1 icio=174) CHLORIDE (BEAKER) (test 103 meq/L 98-107 cbsl=630) CO2 (BEAKER) (test 22 meq/L 22-29 mqro=720) BLOOD UREA NITROGEN 60 mg/dL 7-21 (BEAKER) (test tvls=947) CREATININE (BEAKER) (test 4.61 mg/dL 0.57-1.25 bgkt=571) GLUCOSE RANDOM (BEAKER) 99 mg/dL 70-105 (test sshe=637) CALCIUM (BEAKER) (test 9.4 mg/dL 8.4-10.2 dsbf=220) EGFR (BEAKER) (test 13 mL/min/1.73 sq m ESTIMATED GFR IS NOT rgvk=9391) ACCURATE CREATININE CLEARANCE IN PREDICTING GLOMERULAR FILTRATION RATE. ESTIMATED GFR IS NOT APPLICABLE FOR DIALYSIS PATIENTS. [id number] 07:53:00 Test Item Value Reference Range Comments PHOSPHORUS (BEAKER) (test hotx=234) 6.3 mg/dL 2.3-4.7 [id number] 07:53:00 Test Item Value Reference Range Comments MAGNESIUM (BEAKER) (test xqlr=325) 2.1 mg/dL 1.6-2.6 POCT-GLUCOSE [id number] 23:16:00 Test Item Value Reference Range Comments POC-GLUCOSE METER (BEAKER) 128 mg/dL 70-110 TESTED AT [facility] [address] [place] [address] (test xjfq=6517) [facility] [address] CT, SPINE, LUMBAR, WO [id number] 21:05:00FINAL REPORT CT lumbar spine without contrast 10/14/2018 8:59 PM CLINICAL INDICATION : Low back pain, <6wks, no red flags, no prior management COMPARISON: 2017 TECHNIQUE:Multiple axial noncontrast CT images of the lumbar [...] unchanged lucency about the bilateral L3, L4, andsacroiliac screws, suggesting loosening. There is no periprosthetic [...] Since 10/03/2018, no remarkable change in postoperative appearance.2. Small volume leftpleural effusion with adjacent atelectasis and/ or pneumonia. Signed: Avi Lara Verified Date/Time: 10/14/2018 21:05:37 Reading Location: [facility] Reading Room POCT- GLUCOSE [id number] 16:18:00 Test Item Value Reference Range Comments POC-GLUCOSE METER (BEAKER) 220 mg/dL 70-110 TESTED AT [address] (test texr=2890) [place] [id number] POCT-GLUCOSE [id number] 11:12:00 Test Item Value Reference Range Comments POC-GLUCOSE METER (BEAKER) 117 mg/dL 70-110 TESTED AT [address] (test jmgk=7664) [facility] [address] POCT-GLUCOSE [id number] 08:10:00 Test Item Value Reference Range Comments POC-GLUCOSE METER (BEAKER) 116 mg/dL 70-110 TESTED AT [address] (test ssnw=3081) [place] [id number] POCT-GLUCOSE [id number] 21:26:00 Test Item Value Reference Range Comments POC-GLUCOSE METER (BEAKER) 169 mg/dL 70-110 TESTED AT [address] (test drul=2873) [place] [address] POCT-GLUCOSE [id number] 16:44:00 Test Item Value Reference Range Comments POC-GLUCOSE METER (BEAKER) 146 mg/dL 70-110 TESTED AT [address] (test xvwo=4276) [place] [id number] POCT-GLUCOSE [id number] 11:55:00 Test Item Value Reference Range Comments POC-GLUCOSE METER (BEAKER) 175 mg/dL 70-110 TESTED AT [address] (test myhb=8643) [place] [id number] POCT-GLUCOSE [id number] 08:54:00 Test Item Value Reference Range Comments POC-GLUCOSE METER (BEAKER) 136 mg/dL 70-110 TESTED AT [address] (test zzzw=9856) [place] [address] POCT-GLUCOSE [id number] 21:41:00 Test Item Value Reference Range Comments POC-GLUCOSE METER (BEAKER) 194 mg/dL 70-110 TESTED AT [address] (test dpbn=9295) [place] [id number] POCT-GLUCOSE [id number] 12:41:00 Test Item Value Reference Range Comments POC-GLUCOSE METER (BEAKER) 225 mg/dL 70-110 TESTED AT [address] (test vdfx=2169) [place] [id number] POCT-GLUCOSE [id number] 08:34:00 Test Item Value Reference Range Comments POC-GLUCOSE METER (BEAKER) 134 mg/dL 70-110 TESTED AT [address] (test vdde=1161) [place] [address] CBC W/PLT COUNT & AUTO [id number] 07:45:00 Test Item Value Reference Range Comments WHITE BLOOD CELL COUNT 24.5 K/ L 3.5-10.5 (BEAKER) (test odlt=827) RED BLOOD CELL COUNT (BEAKER) 3.35 M/ L 4.63-6.08 (test onem=587) HEMOGLOBIN (BEAKER) (test 8.5 GM/DL 13.7-17.5 qjvu=081) HEMATOCRIT (BEAKER) (test 30.5 % 40.1-51.0 bojq=012) MEAN CORPUSCULAR VOLUME 91.0 fL 79.0-92.2 Discordant MCV result (BEAKER) (test lwwc=753) compared to previous one; Clinical correlation required. MEAN CORPUSCULAR HEMOGLOBIN 25.4 pg 25.7-32.2 (BEAKER) (test kiek=686) MEAN CORPUSCULAR HEMOGLOBIN 27.9 GM/DL 32.3-36.5 CONC (BEAKER) (test akmo=859) RED CELL DISTRIBUTION WIDTH 19.9 % 11.6-14.4 (BEAKER) (test ihgs=608) PLATELET COUNT (BEAKER) (test 254 K/CU MM 150-450 vnfp=272) MEAN PLATELET VOLUME (BEAKER) 10.9 fL 9.4-12.4 (test isyn=216) NUCLEATED RED BLOOD CELLS 0 /100 WBC 0-0 (BEAKER) (test wqqm=407) NEUTROPHILS RELATIVE PERCENT 86 % (BEAKER) (test ohxq=792) LYMPHOCYTES RELATIVE PERCENT 4 % (BEAKER) (test nbcm=409) MONOCYTES RELATIVE PERCENT 7 % (BEAKER) (test fcwt=110) EOSINOPHILS RELATIVE PERCENT 3 % (BEAKER) (test uqjd=705) BASOPHILS RELATIVE PERCENT 1 % (BEAKER) (test mafw=634) NEUTROPHILS ABSOLUTE COUNT 20.96 K/ L 1.78-5.38 (BEAKER) (test ywvc=226) LYMPHOCYTES ABSOLUTE COUNT 0.86 K/ L 1.32-3.57 (BEAKER) (test homk=709) MONOCYTES ABSOLUTE COUNT 1.58 K/ L 0.30-0.82 (BEAKER) (test zrbi=925) EOSINOPHILS ABSOLUTE COUNT 0.62 K/ L 0.04-0.54 (BEAKER) (test mdhp=789) BASOPHILS ABSOLUTE COUNT 0.16 K/ L 0.01-0.08 (BEAKER) (test eyac=803) IMMATURE 1 % 0-1 GRANULOCYTES-RELATIVE PERCENT (BEAKER) (test bexb=5908) BASIC METABOLIC [id number] 07:06:00 Test Item Value Reference Range Comments SODIUM (BEAKER) (test 130 meq/L 136-145 pyhz=636) POTASSIUM (BEAKER) (test 5.1 meq/L 3.5-5.1 evnl=132) CHLORIDE (BEAKER) (test 98 meq/L 98-107 xbti=213) CO2 (BEAKER) (test 20 meq/L 22-29 batk=334) BLOOD UREA NITROGEN 38 mg/dL 7-21 (BEAKER) (test yvdy=196) CREATININE (BEAKER) (test 3.90 mg/dL 0.57-1.25 ccqz=393) GLUCOSE RANDOM (BEAKER) 95 mg/dL 70-105 (test wtcu=095) CALCIUM (BEAKER) (test 9.2 mg/dL 8.4-10.2 cpup=688) EGFR (BEAKER) (test 16 mL/min/1.73 sq m ESTIMATED GFR IS NOT batg=4333) ACCURATE CREATININE CLEARANCE IN PREDICTING GLOMERULAR FILTRATION RATE. ESTIMATED GFR IS NOT APPLICABLE FOR DIALYSIS PATIENTS. [id number] 07:05:00 Test Item Value Reference Range Comments PHOSPHORUS (BEAKER) (test evpw=631) 4.8 mg/dL 2.3-4.7 [id number] 07:05:00 Test Item Value Reference Range Comments MAGNESIUM (BEAKER) (test uljn=343) 1.8 mg/dL 1.6-2.6 POCT-GLUCOSE [id number] 22:22:00 Test Item Value Reference Range Comments POC-GLUCOSE METER (BEAKER) 134 mg/dL 70-110 TESTED AT [address] (test nasr=0003) [facility] [address] POCT-GLUCOSE [id number] 17:01:00 Test Item Value Reference Range Comments POC-GLUCOSE METER (BEAKER) 140 mg/dL 70-110 TESTED AT [address] (test ucib=6094) [facility] [address] CBC W/PLT COUNT & AUTO [id number] 12:47:00 Test Item Value Reference Range Comments WHITE BLOOD CELL COUNT (BEAKER) (test aoqc=876) 23.0 K/ L 3.5-10.5 RED BLOOD CELL COUNT (BEAKER) (test pprx=480) 3.45 M/ L 4.63-6.08 HEMOGLOBIN (BEAKER) (test krhz=319) 8.7 GM/DL 13.7-17.5 HEMATOCRIT (BEAKER) (test maol=462) 30.0 % 40.1-51.0 MEAN CORPUSCULAR VOLUME (BEAKER) (test bves=530) 87.0 fL 79.0-92.2 MEAN CORPUSCULAR HEMOGLOBIN (BEAKER) (test 25.2 pg 25.7-32.2 cmaf=012) MEAN CORPUSCULAR HEMOGLOBIN CONC (BEAKER) (test 29.0 GM/DL 32.3-36.5 imkz=019) RED CELL DISTRIBUTION WIDTH (BEAKER) (test 19.5 % 11.6-14.4 umju=723) PLATELET COUNT (BEAKER) (test aces=586) 335 K/CU MM 150-450 MEAN PLATELET VOLUME (BEAKER) (test vqbm=410) 10.7 fL 9.4-12.4 NUCLEATED RED BLOOD CELLS (BEAKER) (test 0 /100 WBC 0-0 vpaa=912) (CELLAVISION MANUAL DIFF)2018-10-11 12:45:00 Test Item Value Reference Range Comments NEUTROPHILS - REL (CELLAVISION)(BEAKER) (test 85 % hman=2334) LYMPHOCYTES - REL (CELLAVISION)(BEAKER) (test 2 % cigp=1377) MONOCYTES - REL (CELLAVISION)(BEAKER) (test 7 % uuld=1390) EOSINOPHILS - REL (CELLAVISION)(BEAKER) (test 6 % acyn=7116) NEUTROPHILS - ABS (CELLAVISION)(BEAKER) (test 19.55 K/ul 1.78-5.38 ppqn=4778) LYMPHOCYTES - ABS (CELLAVISION)(BEAKER) (test 0.46 K/ul 1.32-3.57 lagc=0458) MONOCYTES - ABS (CELLAVISION)(BEAKER) (test 1.61 K/uL 0.30-0.82 lxol=4256) EOSINOPHILS - ABS (CELLAVISION)(BEAKER) (test 1.38 K/uL 0.04-0.54 iqay=9738) TOTAL COUNTED (BEAKER) (test awcj=2537) 100 PLT MORPHOLOGY (BEAKER) (test rnbj=900) Normal SMUDGE CELLS (BEAKER) (test mrvx=9508) Present POLYCHROMATOPHILLIC RBCS(BEAKER) (test mywy=280) 1+ few HYPOCHROMIA (BEAKER) (test sfnc=281) 1+ few ANISOCYTOSIS (BEAKER) (test pafc=188) 1+ few MICROCYTES (BEAKER) (test eqfu=203) 1+ few OVALOCYTES (BEAKER) (test ffgv=773) 1+ few PLATELET CONCENTRATION (CELLAVISION)(BEAKER) Adequate (test fatm=2872) Received comment: User comments: Slide comments:POCT-GLUCOSE [id number] 12: 21:00 Test Item Value Reference Range Comments POC-GLUCOSE METER (BEAKER) 174 mg/dL 70-110 TESTED AT [facility] [address] [facility] (test lrtd=9904) [facility] [address] POCT-GLUCOSE [id number] 08:32:00 Test Item Value Reference Range Comments POC-GLUCOSE METER (BEAKER) 164 mg/dL 70-110 TESTED AT [facility] [address] [facility] (test zhpm=3844) [facility] [address] BASIC METABOLIC [id number] 06:00:00 Test Item Value Reference Range Comments SODIUM (BEAKER) (test 136 meq/L 136-145 yqhr=004) POTASSIUM (BEAKER) (test 4.5 meq/L 3.5-5.1 ktay=324) CHLORIDE (BEAKER) (test 100 meq/L 98-107 gvdu=068) CO2 (BEAKER) (test 27 meq/L 22-29 tcbn=808) BLOOD UREA NITROGEN 20 mg/dL 7-21 (BEAKER) (test phoc=527) CREATININE (BEAKER) (test 2.58 mg/dL 0.57-1.25 qrpt=791) GLUCOSE RANDOM (BEAKER) 99 mg/dL 70-105 (test evux=889) CALCIUM (BEAKER) (test 9.1 mg/dL 8.4-10.2 azfs=341) EGFR (BEAKER) (test 26 mL/min/1.73 sq m ESTIMATED GFR IS NOT mvyi=0576) ACCURATE CREATININE CLEARANCE IN PREDICTING GLOMERULAR FILTRATION RATE. ESTIMATED GFR IS NOT APPLICABLE FOR DIALYSIS PATIENTS. [id number] 05:56:00 Test Item Value Reference Range Comments PHOSPHORUS (BEAKER) (test ueqs=834) 3.6 mg/dL 2.3-4.7 [id number] 05:56:00 Test Item Value Reference Range Comments MAGNESIUM (BEAKER) (test cmil=708) 1.8 mg/dL 1.6-2.6 POCT-GLUCOSE [id number] 21:50:00 Test Item Value Reference Range Comments POC-GLUCOSE METER (BEAKER) 132 mg/dL 70-110 TESTED AT [facility] [address] (test zckz=5228) [place] [address] CBC W/PLT COUNT & AUTO [id number] 09:43:00 Test Item Value Reference Range Comments WHITE BLOOD CELL COUNT (BEAKER) (test ydpo=616) 21.3 K/ L 3.5-10.5 RED BLOOD CELL COUNT (BEAKER) (test fjbv=326) 3.40 M/ L 4.63-6.08 HEMOGLOBIN (BEAKER) (test qzmd=383) 8.7 GM/DL 13.7-17.5 HEMATOCRIT (BEAKER) (test gela=858) 28.9 % 40.1-51.0 MEAN CORPUSCULAR VOLUME (BEAKER) (test tvdt=463) 85.0 fL 79.0-92.2 MEAN CORPUSCULAR HEMOGLOBIN (BEAKER) (test 25.6 pg 25.7-32.2 lmje=991) MEAN CORPUSCULAR HEMOGLOBIN CONC (BEAKER) (test 30.1 GM/DL 32.3-36.5 uday=055) RED CELL DISTRIBUTION WIDTH (BEAKER) (test 19.3 % 11.6-14.4 jgbe=860) PLATELET COUNT (BEAKER) (test hklq=193) 291 K/CU MM 150-450 MEAN PLATELET VOLUME (BEAKER) (test hhuf=731) 11.2 fL 9.4-12.4 NUCLEATED RED BLOOD CELLS (BEAKER) (test 0 /100 WBC 0-0 wxdj=477) (CELLAVISION MANUAL DIFF)2018-10-10 09:43:00 Test Item Value Reference Range Comments NEUTROPHILS - REL (CELLAVISION)(BEAKER) (test 73 % rxpv=4818) LYMPHOCYTES - REL (CELLAVISION)(BEAKER) (test 7 % kdfa=1200) MONOCYTES - REL (CELLAVISION)(BEAKER) (test 8 % qhcf=9275) EOSINOPHILS - REL (CELLAVISION)(BEAKER) (test 11 % wslj=8506) BANDS - REL (CELLAVISION)(BEAKER) (test 1 % 0-10 tjfj=0409) NEUTROPHILS - ABS (CELLAVISION)(BEAKER) (test 15.55 K/ul 1.78-5.38 kjzo=2882) LYMPHOCYTES - ABS (CELLAVISION)(BEAKER) (test 1.49 K/ul 1.32-3.57 yezc=5571) MONOCYTES - ABS (CELLAVISION)(BEAKER) (test 1.70 K/uL 0.30-0.82 fodl=9813) EOSINOPHILS - ABS (CELLAVISION)(BEAKER) (test 2.34 K/uL 0.04-0.54 jebx=4201) BANDS - ABS (CELLAVISION)(BEAKER) (test 0.21 K/uL 0.00-0.80 qpar=9000) TOTAL COUNTED (BEAKER) (test rfod=9451) 100 MANUAL NRBC PER 100 CELLS (BEAKER) (test 1 /100 WBC 0-0 njqe=1804) WBC MORPHOLOGY (BEAKER) (test zfxz=337) Normal LARGE PLT(BEAKER) (test kwnm=3268) Present POLYCHROMATOPHILLIC RBCS(BEAKER) (test ipky=342) 2+ moderate HYPOCHROMIA (BEAKER) (test zecw=961) 2+ moderate ARTIFACT (CELLAVISION)(BEAKER) (test aevw=2407) Present PLATELET CONCENTRATION (CELLAVISION)(BEAKER) Adequate (test ulpu=1797) Received comment: User comments: Slide comments:CALCIUM, [id number] 06:56 :00 Test Item Value Reference Range Comments CALCIUM IONIZED (BEAKER) (test hris=245) 0.97 mmol/L 1.12-1.27 PH, BLOOD (BEAKER) (test ymvf=4901) 7.54 COMPREHENSIVE METABOLIC [id number] 06:24:00 Test Item Value Reference Range Comments TOTAL PROTEIN (BEAKER) 6.0 gm/dL 6.0-8.3 (test vnvr=070) ALBUMIN (BEAKER) (test 2.5 g/dL 3.5-5.0 bwnh=0554) ALKALINE PHOSPHATASE 101 U/L 40-150 (BEAKER) (test khwp=804) BILIRUBIN TOTAL (BEAKER) 0.4 mg/dL 0.2-1.2 (test sbav=379) SODIUM (BEAKER) (test 134 meq/L 136-145 zwlj=993) POTASSIUM (BEAKER) (test 5.0 meq/L 3.5-5.1 hhcd=302) CHLORIDE (BEAKER) (test 98 meq/L 98-107 tiyv=666) CO2 (BEAKER) (test 24 meq/L 22-29 ygpw=907) BLOOD UREA NITROGEN 45 mg/dL 7-21 (BEAKER) (test amos=350) CREATININE (BEAKER) (test 4.11 mg/dL 0.57-1.25 aifj=570) GLUCOSE RANDOM (BEAKER) 100 mg/dL 70-105 (test odiw=280) CALCIUM (BEAKER) (test 9.7 mg/dL 8.4-10.2 rlhv=937) AST (SGOT) (BEAKER) (test 12 U/L 5-34 biog=516) ALT (SGPT) (BEAKER) (test 14 U/L 6-55 avas=756) EGFR (BEAKER) (test 15 mL/min/1.73 sq m ESTIMATED GFR IS NOT kulm=0652) ACCURATE CREATININE CLEARANCE IN PREDICTING GLOMERULAR FILTRATION RATE. ESTIMATED GFR IS NOT APPLICABLE FOR DIALYSIS PATIENTS. [id number] 06:22:00 Test Item Value Reference Range Comments PHOSPHORUS (BEAKER) (test eaao=153) 4.3 mg/dL 2.3-4.7 [id number] 06:22:00 Test Item Value Reference Range Comments MAGNESIUM (BEAKER) (test iihg=758) 1.9 mg/dL 1.6-2.6 POCT-GLUCOSE [id number] 21:36:00 Test Item Value Reference Range Comments POC-GLUCOSE METER (BEAKER) 158 mg/dL 70-110 TESTED AT [address] (test wicq=0370) [facility] [address] POCT-GLUCOSE [id number] 18:20:00 Test Item Value Reference Range Comments POC-GLUCOSE METER (BEAKER) 214 mg/dL 70-110 TESTED AT [address] (test mpav=4062) [facility] [address] CBC W/PLT COUNT & AUTO [id number] 15:21:00 Test Item Value Reference Range Comments WHITE BLOOD CELL COUNT (BEAKER) (test dmpl=762) 20.7 K/ L 3.5-10.5 RED BLOOD CELL COUNT (BEAKER) (test pska=276) 3.62 M/ L 4.63-6.08 HEMOGLOBIN (BEAKER) (test qcip=808) 9.3 GM/DL 13.7-17.5 HEMATOCRIT (BEAKER) (test sqtk=526) 31.0 % 40.1-51.0 MEAN CORPUSCULAR VOLUME (BEAKER) (test hhub=321) 85.6 fL 79.0-92.2 MEAN CORPUSCULAR HEMOGLOBIN (BEAKER) (test 25.7 pg 25.7-32.2 eemv=153) MEAN CORPUSCULAR HEMOGLOBIN CONC (BEAKER) (test 30.0 GM/DL 32.3-36.5 dbio=367) RED CELL DISTRIBUTION WIDTH (BEAKER) (test 19.2 % 11.6-14.4 pbzy=614) PLATELET COUNT (BEAKER) (test eays=103) 304 K/CU MM 150-450 MEAN PLATELET VOLUME (BEAKER) (test ilvn=363) 11.4 fL 9.4-12.4 NUCLEATED RED BLOOD CELLS (BEAKER) (test 0 /100 WBC 0-0 znzs=013) (CELLAVISION MANUAL DIFF)2018-10-09 15:21:00 Test Item Value Reference Range Comments NEUTROPHILS - REL (CELLAVISION)(BEAKER) (test 82 % qzqi=6065) LYMPHOCYTES - REL (CELLAVISION)(BEAKER) (test 8 % ogcc=7936) MONOCYTES - REL (CELLAVISION)(BEAKER) (test 4 % doig=8899) EOSINOPHILS - REL (CELLAVISION)(BEAKER) (test 5 % dfph=6335) MYELOCYTES - REL (CELLAVISION)(BEAKER) (test 1 % 0-0 fnol=7137) NEUTROPHILS - ABS (CELLAVISION)(BEAKER) (test 16.97 K/ul 1.78-5.38 nbnw=0057) LYMPHOCYTES - ABS (CELLAVISION)(BEAKER) (test 1.66 K/ul 1.32-3.57 gtag=6278) MONOCYTES - ABS (CELLAVISION)(BEAKER) (test 0.83 K/uL 0.30-0.82 xtvu=4592) EOSINOPHILS - ABS (CELLAVISION)(BEAKER) (test 1.04 K/uL 0.04-0.54 rpqi=7609) MYELOCYTES-ABS (CELLAVISION)(BEAKER) (test 0.21 K/uL 0.00-0.00 qfel=6499) TOTAL COUNTED (BEAKER) (test cgiu=3120) 100 WBC MORPHOLOGY (BEAKER) (test qrwu=560) Normal CLUMPED PLATELETS (BEAKER) (test bkcd=119) Present GIANT PLATELETS (BEAKER) (test iywe=652) Present POLYCHROMATOPHILLIC RBCS(BEAKER) (test yena=295) 2+ moderate HYPOCHROMIA (BEAKER) (test mquw=157) 1+ few ANISOCYTOSIS (BEAKER) (test bgei=045) 1+ few TARGET CELLS (BEAKER) (test gqyh=301) 1+ few SCHISTOCYTES (BEAKER) (test jvkp=510) 1+ few ELLIPTOCYTES (BEAKER) (test osvt=608) 1+ few TEAR DROP CELLS (BEAKER) (test rknh=849) 1+ few ARTIFACT (CELLAVISION)(BEAKER) (test cepv=8651) Present PLATELET CONCENTRATION (CELLAVISION)(BEAKER) Adequate (test zlbf=8125) Received comment: User comments: Slide comments:POCT-GLUCOSE [id number] 13: 16:00 Test Item Value Reference Range Comments POC-GLUCOSE METER (BEAKER) 129 mg/dL 70-110 TESTED AT [address] (test jqms=7200) [facility] [address] BASIC METABOLIC [id number] 12:58:00 Test Item Value Reference Range Comments SODIUM (BEAKER) (test 133 meq/L 136-145 kbaj=954) POTASSIUM (BEAKER) (test 4.3 meq/L 3.5-5.1 bpgz=835) CHLORIDE (BEAKER) (test 98 meq/L 98-107 jleg=143) CO2 (BEAKER) (test 23 meq/L 22-29 quvv=715) BLOOD UREA NITROGEN 32 mg/dL 7-21 (BEAKER) (test tuxb=618) CREATININE (BEAKER) (test 3.36 mg/dL 0.57-1.25 wzhj=953) GLUCOSE RANDOM (BEAKER) 98 mg/dL 70-105 (test jnan=231) CALCIUM (BEAKER) (test 9.4 mg/dL 8.4-10.2 gcra=486) EGFR (BEAKER) (test 19 mL/min/1.73 sq m ESTIMATED GFR IS NOT pdco=6946) ACCURATE CREATININE CLEARANCE IN PREDICTING GLOMERULAR FILTRATION RATE. ESTIMATED GFR IS NOT APPLICABLE FOR DIALYSIS PATIENTS. [id number] 12:52:00 Test Item Value Reference Range Comments PROTIME (BEAKER) (test wkle=873) 13.4 seconds 11.7-14.7 INR (BEAKER) (test hgeo=918) 1.0 <=5.9 PARTIAL THROMBOPLASTIN TIME (BEAKER) (test 36.8 seconds 22.5-36.0 zfkg=216) RECOMMENDED COUMADIN/WARFARIN INR THERAPY RANGESSTANDARD DOSE: 2.0 - 3.0 Includes: PROPHYLAXIS forvenous thrombosis, systemic embolization; TREATMENT for venous thrombosis and/or pulmonary embolus.HIGH RISK: Target INR is 2.5-3.5 for patients with mechanical heart valves.PROTHROMBIN [id number] 12:51: 00 Test Item Value Reference Range Comments PROTIME (BEAKER) (test urru=319) 13.4 seconds 11.7-14.7 INR (BEAKER) (test zobu=544) 1.0 <=5.9 RECOMMENDED COUMADIN/WARFARIN INR THERAPY RANGESSTANDARD DOSE: 2.0 - 3.0 Includes: PROPHYLAXIS forvenous thrombosis, systemic embolization; TREATMENT for venous thrombosis and/or pulmonary embolus.HIGH RISK: Target INR is 2.5-3.5 for patients with mechanical heart valves.RAD, CHEST, 1 VIEW, NON [id number] 11:30:00Reason for exam:->pre-opShould this be performed at the bedside?-& gt;YesFINAL REPORT Portable chest. Clinical history: Preoperative. Comparison study: October 01, 2018. FINDINGS: The cardiac size is enlarged. There is pulmonary venous congestion andairspace opacities with a right-sided central line identified. Blunting of the left costophrenic angle is seen. No pneumothorax is noted. Degenerative changes are seen. IMPRESSION: Findings consistent with CHF. In the right clinical setting, a superimposed infection would be difficult to exclude. Clinical correlation and short term imaging follow-up could be made to exclude other etiologies. Signed:Vincent Stroud Verified Date/Time: 10/09/2018 11:30:43 Reading Location: [facility] Reading Room POCT-GLUCOSE [id number] 08:12:00 Test Item Value Reference Range Comments POC-GLUCOSE METER (BEAKER) 115 mg/dL 70-110 TESTED AT [address] (test myjh=3073) [facility] [id number] POCT-GLUCOSE [id number] 21:30:00 Test Item Value Reference Range Comments POC-GLUCOSE METER (BEAKER) 191 mg/dL 70-110 TESTED AT [address] (test wjuw=4632) [facility] [id number] POCT-GLUCOSE [id number] 17:45:00 Test Item Value Reference Range Comments POC-GLUCOSE METER (BEAKER) 186 mg/dL 70-110 TESTED AT [address] (test sglo=4426) [place] [id number] POCT-GLUCOSE [id number] 12:33:00 Test Item Value Reference Range Comments POC-GLUCOSE METER (BEAKER) 102 mg/dL 70-110 TESTED AT [address] (test fgwz=2592) [facility] [address] POCT-GLUCOSE [id number] 10:36:00 Test Item Value Reference Range Comments POC-GLUCOSE METER (BEAKER) 161 mg/dL 70-110 TESTED AT [address] (test kiie=2268) [facility] [address] POCT-GLUCOSE [id number] 10:36:00 Test Item Value Reference Range Comments POC-GLUCOSE METER (BEAKER) 99 mg/dL 70-110 TESTED AT [address] (test fczn=1897) [facility] [address] BASIC METABOLIC [id number] 06:20:00 Test Item Value Reference Range Comments SODIUM (BEAKER) (test 134 meq/L 136-145 tfsd=375) POTASSIUM (BEAKER) (test 4.0 meq/L 3.5-5.1 jpjy=317) CHLORIDE (BEAKER) (test 98 meq/L 98-107 mwsw=821) CO2 (BEAKER) (test 24 meq/L 22-29 bnxk=153) BLOOD UREA NITROGEN 42 mg/dL 7-21 (BEAKER) (test hexq=470) CREATININE (BEAKER) (test 5.10 mg/dL 0.57-1.25 fnst=658) GLUCOSE RANDOM (BEAKER) 117 mg/dL 70-105 (test spag=365) CALCIUM (BEAKER) (test 9.3 mg/dL 8.4-10.2 xnxn=039) EGFR (BEAKER) (test 12 mL/min/1.73 sq m ESTIMATED GFR IS NOT mtpd=1703) ACCURATE CREATININE CLEARANCE IN PREDICTING GLOMERULAR FILTRATION RATE. ESTIMATED GFR IS NOT APPLICABLE FOR DIALYSIS PATIENTS. COMPREHENSIVE METABOLIC [id number] 06:20:00 Test Item Value Reference Range Comments TOTAL PROTEIN (BEAKER) 5.9 gm/dL 6.0-8.3 (test bgch=375) ALBUMIN (BEAKER) (test 2.6 g/dL 3.5-5.0 kmfz=1652) ALKALINE PHOSPHATASE 122 U/L 40-150 (BEAKER) (test knro=447) BILIRUBIN TOTAL (BEAKER) 0.4 mg/dL 0.2-1.2 (test ozpy=797) SODIUM (BEAKER) (test 134 meq/L 136-145 ykmj=122) POTASSIUM (BEAKER) (test 4.0 meq/L 3.5-5.1 rqpo=906) CHLORIDE (BEAKER) (test 98 meq/L 98-107 dwkt=694) CO2 (BEAKER) (test 24 meq/L 22-29 wuqe=894) BLOOD UREA NITROGEN 42 mg/dL 7-21 (BEAKER) (test fjzj=118) CREATININE (BEAKER) (test 5.10 mg/dL 0.57-1.25 tiaw=131) GLUCOSE RANDOM (BEAKER) 117 mg/dL 70-105 (test rbjt=543) CALCIUM (BEAKER) (test 9.3 mg/dL 8.4-10.2 igwc=091) AST (SGOT) (BEAKER) (test 17 U/L 5-34 lmmj=388) ALT (SGPT) (BEAKER) (test 13 U/L 6-55 ubft=253) EGFR (BEAKER) (test 12 mL/min/1.73 sq m ESTIMATED GFR IS NOT xbch=4511) ACCURATE CREATININE CLEARANCE IN PREDICTING GLOMERULAR FILTRATION RATE. ESTIMATED GFR IS NOT APPLICABLE FOR DIALYSIS PATIENTS. [id number] 06:19:00 Test Item Value Reference Range Comments PHOSPHORUS (BEAKER) (test nkbs=828) 3.5 mg/dL 2.3-4.7 [id number] 06:19:00 Test Item Value Reference Range Comments MAGNESIUM (BEAKER) (test vhgg=359) 2.0 mg/dL 1.6-2.6 CBC W/PLT COUNT & AUTO [id number] 06:04:00 Test Item Value Reference Range Comments WHITE BLOOD CELL COUNT (BEAKER) (test snza=520) 24.3 K/ L 3.5-10.5 RED BLOOD CELL COUNT (BEAKER) (test lynm=174) 3.86 M/ L 4.63-6.08 HEMOGLOBIN (BEAKER) (test qypz=561) 9.8 GM/DL 13.7-17.5 HEMATOCRIT (BEAKER) (test wpux=347) 32.5 % 40.1-51.0 MEAN CORPUSCULAR VOLUME (BEAKER) (test qloq=575) 84.2 fL 79.0-92.2 MEAN CORPUSCULAR HEMOGLOBIN (BEAKER) (test 25.4 pg 25.7-32.2 qjvj=295) MEAN CORPUSCULAR HEMOGLOBIN CONC (BEAKER) (test 30.2 GM/DL 32.3-36.5 olmb=760) RED CELL DISTRIBUTION WIDTH (BEAKER) (test 18.7 % 11.6-14.4 brfw=136) PLATELET COUNT (BEAKER) (test yxhr=710) 322 K/CU MM 150-450 MEAN PLATELET VOLUME (BEAKER) (test iwzw=183) 10.5 fL 9.4-12.4 NUCLEATED RED BLOOD CELLS (BEAKER) (test 0 /100 WBC 0-0 pztn=117) NEUTROPHILS RELATIVE PERCENT (BEAKER) (test 82 % wnvt=159) LYMPHOCYTES RELATIVE PERCENT (BEAKER) (test 4 % jxzt=996) MONOCYTES RELATIVE PERCENT (BEAKER) (test 6 % gjxq=475) EOSINOPHILS RELATIVE PERCENT (BEAKER) (test 3 % bjef=261) BASOPHILS RELATIVE PERCENT (BEAKER) (test 1 % yolq=902) NEUTROPHILS ABSOLUTE COUNT (BEAKER) (test 19.84 K/ L 1.78-5.38 uhqe=913) LYMPHOCYTES ABSOLUTE COUNT (BEAKER) (test 0.90 K/ L 1.32-3.57 payx=045) MONOCYTES ABSOLUTE COUNT (BEAKER) (test 1.50 K/ L 0.30-0.82 evdu=848) EOSINOPHILS ABSOLUTE COUNT (BEAKER) (test 0.78 K/ L 0.04-0.54 pelk=356) BASOPHILS ABSOLUTE COUNT (BEAKER) (test 0.15 K/ L 0.01-0.08 ajab=177) IMMATURE GRANULOCYTES-RELATIVE PERCENT (BEAKER) 5 % 0-1 (test lafb=7579) CALCIUM, [id number] 05:51:00 Test Item Value Reference Range Comments CALCIUM IONIZED (BEAKER) (test fdax=553) 1.12 mmol/L 1.12-1.27 PH, BLOOD (BEAKER) (test xvcc=0242) 7.42 POCT-GLUCOSE [id number] 22:12:00 Test Item Value Reference Range Comments POC-GLUCOSE METER (BEAKER) 173 mg/dL 70-110 TESTED AT [address] (test jkhj=0461) [place] [id number] POCT-GLUCOSE [id number] 18:29:00 Test Item Value Reference Range Comments POC-GLUCOSE METER (BEAKER) 164 mg/dL 70-110 TESTED AT [address] (test tggi=8309) [place] [id number] POCT-GLUCOSE [id number] 12:24:00 Test Item Value Reference Range Comments POC-GLUCOSE METER (BEAKER) 148 mg/dL 70-110 TESTED AT [address] (test gfwk=2057) [place] [id number] CBC W/PLT COUNT & AUTO [id number] 09:07:00 Test Item Value Reference Range Comments WHITE BLOOD CELL COUNT (BEAKER) (test dsfd=879) 24.8 K/ L 3.5-10.5 RED BLOOD CELL COUNT (BEAKER) (test nfvz=482) 3.49 M/ L 4.63-6.08 HEMOGLOBIN (BEAKER) (test xsxa=413) 8.9 GM/DL 13.7-17.5 HEMATOCRIT (BEAKER) (test zirs=146) 29.9 % 40.1-51.0 MEAN CORPUSCULAR VOLUME (BEAKER) (test gdsp=817) 85.7 fL 79.0-92.2 MEAN CORPUSCULAR HEMOGLOBIN (BEAKER) (test 25.5 pg 25.7-32.2 nsws=828) MEAN CORPUSCULAR HEMOGLOBIN CONC (BEAKER) (test 29.8 GM/DL 32.3-36.5 ujaq=078) RED CELL DISTRIBUTION WIDTH (BEAKER) (test 18.2 % 11.6-14.4 gljt=224) PLATELET COUNT (BEAKER) (test owft=505) 256 K/CU MM 150-450 MEAN PLATELET VOLUME (BEAKER) (test itye=827) 11.0 fL 9.4-12.4 NUCLEATED RED BLOOD CELLS (BEAKER) (test 0 /100 WBC 0-0 zekx=355) (CELLAVISION MANUAL DIFF)2018-10-07 09:07:00 Test Item Value Reference Range Comments NEUTROPHILS - REL (CELLAVISION)(BEAKER) (test 81 % gopf=8610) LYMPHOCYTES - REL (CELLAVISION)(BEAKER) (test 2 % jhyw=2032) MONOCYTES - REL (CELLAVISION)(BEAKER) (test 13 % gvth=6077) EOSINOPHILS - REL (CELLAVISION)(BEAKER) (test 3 % qeoz=6376) BANDS - REL (CELLAVISION)(BEAKER) (test 1 % 0-10 uhac=2580) NEUTROPHILS - ABS (CELLAVISION)(BEAKER) (test 20.09 K/ul 1.78-5.38 ptwa=3448) LYMPHOCYTES - ABS (CELLAVISION)(BEAKER) (test 0.50 K/ul 1.32-3.57 adtq=1302) MONOCYTES - ABS (CELLAVISION)(BEAKER) (test 3.22 K/uL 0.30-0.82 epgm=0981) EOSINOPHILS - ABS (CELLAVISION)(BEAKER) (test 0.74 K/uL 0.04-0.54 gqya=7026) BANDS - ABS (CELLAVISION)(BEAKER) (test 0.25 K/uL 0.00-0.80 hmka=0537) TOTAL COUNTED (BEAKER) (test ygut=0687) 100 WBC MORPHOLOGY (BEAKER) (test xrvh=575) Normal PLT MORPHOLOGY (BEAKER) (test srjg=921) Normal POLYCHROMATOPHILLIC RBCS(BEAKER) (test hzyl=846) 1+ few HYPOCHROMIA (BEAKER) (test tpxm=223) 2+ moderate ANISOCYTOSIS (BEAKER) (test dvff=045) 1+ few MICROCYTES (BEAKER) (test khae=482) 1+ few POIKILOCYTES (BEAKER) (test newf=083) 1+ few ARTIFACT (CELLAVISION)(BEAKER) (test gytx=6346) Present PLATELET CONCENTRATION (CELLAVISION)(BEAKER) Adequate (test ytwa=5602) Received comment: User comments: Slide comments:POCT-GLUCOSE [id number] 07: 47:00 Test Item Value Reference Range Comments POC-GLUCOSE METER (BEAKER) 182 mg/dL 70-110 TESTED AT [address] (test gckp=5082) [place] [id number] BASIC METABOLIC [id number] 07:08:00 Test Item Value Reference Range Comments SODIUM (BEAKER) (test 134 meq/L 136-145 dtqt=168) POTASSIUM (BEAKER) (test 4.0 meq/L 3.5-5.1 pyba=094) CHLORIDE (BEAKER) (test 99 meq/L 98-107 vohc=617) CO2 (BEAKER) (test 24 meq/L 22-29 wygu=910) BLOOD UREA NITROGEN 25 mg/dL 7-21 (BEAKER) (test dkhq=536) CREATININE (BEAKER) (test 3.80 mg/dL 0.57-1.25 sout=791) GLUCOSE RANDOM (BEAKER) 128 mg/dL 70-105 (test poqd=474) CALCIUM (BEAKER) (test 8.8 mg/dL 8.4-10.2 joxv=397) EGFR (BEAKER) (test 16 mL/min/1.73 sq m ESTIMATED GFR IS NOT cwwm=1561) ACCURATE CREATININE CLEARANCE IN PREDICTING GLOMERULAR FILTRATION RATE. ESTIMATED GFR IS NOT APPLICABLE FOR DIALYSIS PATIENTS. POCT-GLUCOSE [id number] 20:46:00 Test Item Value Reference Range Comments POC-GLUCOSE METER (BEAKER) 138 mg/dL 70-110 TESTED AT [address] (test yzao=4740) [place] [id number] POCT-GLUCOSE [id number] 17:44:00 Test Item Value Reference Range Comments POC-GLUCOSE METER (BEAKER) 138 mg/dL 70-110 TESTED AT [facility] [address] (test revp=5146) [place] [address] CBC W/PLT COUNT & AUTO [id number] 17:41:00 Test Item Value Reference Range Comments WHITE BLOOD CELL COUNT (BEAKER) (test mtzs=188) 20.1 K/ L 3.5-10.5 RED BLOOD CELL COUNT (BEAKER) (test vdfu=060) 4.05 M/ L 4.63-6.08 HEMOGLOBIN (BEAKER) (test yudw=638) 10.2 GM/DL 13.7-17.5 HEMATOCRIT (BEAKER) (test leky=792) 34.8 % 40.1-51.0 MEAN CORPUSCULAR VOLUME (BEAKER) (test zawv=722) 85.9 fL 79.0-92.2 MEAN CORPUSCULAR HEMOGLOBIN (BEAKER) (test 25.2 pg 25.7-32.2 imwr=775) MEAN CORPUSCULAR HEMOGLOBIN CONC (BEAKER) (test 29.3 GM/DL 32.3-36.5 mway=808) RED CELL DISTRIBUTION WIDTH (BEAKER) (test 18.4 % 11.6-14.4 vhci=693) PLATELET COUNT (BEAKER) (test tnel=149) 297 K/CU MM 150-450 MEAN PLATELET VOLUME (BEAKER) (test gmfo=802) 10.3 fL 9.4-12.4 NUCLEATED RED BLOOD CELLS (BEAKER) (test 0 /100 WBC 0-0 cszc=689) NEUTROPHILS RELATIVE PERCENT (BEAKER) (test 86 % wdjz=545) LYMPHOCYTES RELATIVE PERCENT (BEAKER) (test 4 % wqfz=927) MONOCYTES RELATIVE PERCENT (BEAKER) (test 5 % lkmu=304) EOSINOPHILS RELATIVE PERCENT (BEAKER) (test 2 % tpqa=315) BASOPHILS RELATIVE PERCENT (BEAKER) (test 1 % cjkz=479) NEUTROPHILS ABSOLUTE COUNT (BEAKER) (test 17.31 K/ L 1.78-5.38 mxux=104) LYMPHOCYTES ABSOLUTE COUNT (BEAKER) (test 0.77 K/ L 1.32-3.57 uvcv=469) MONOCYTES ABSOLUTE COUNT (BEAKER) (test 1.00 K/ L 0.30-0.82 wwuo=349) EOSINOPHILS ABSOLUTE COUNT (BEAKER) (test 0.45 K/ L 0.04-0.54 lhqn=577) BASOPHILS ABSOLUTE COUNT (BEAKER) (test 0.13 K/ L 0.01-0.08 pesw=573) IMMATURE GRANULOCYTES-RELATIVE PERCENT (BEAKER) 2 % 0-1 (test raza=7132) BASIC METABOLIC [id number] 17:37:00 Test Item Value Reference Range Comments SODIUM (BEAKER) (test 133 meq/L 136-145 okzx=921) POTASSIUM (BEAKER) (test 4.6 meq/L 3.5-5.1 Specimen slightly klzy=077) hemolyzed CHLORIDE (BEAKER) (test 100 meq/L 98-107 ryhn=086) CO2 (BEAKER) (test 22 meq/L 22-29 xdep=398) BLOOD UREA NITROGEN 20 mg/dL 7-21 (BEAKER) (test evzi=984) CREATININE (BEAKER) (test 3.23 mg/dL 0.57-1.25 Specimen slightly rzci=467) hemolyzed GLUCOSE RANDOM (BEAKER) 131 mg/dL 70-105 (test viem=025) CALCIUM (BEAKER) (test 9.1 mg/dL 8.4-10.2 cmtq=976) EGFR (BEAKER) (test 20 mL/min/1.73 sq m ESTIMATED GFR IS NOT vvtj=1639) ACCURATE CREATININE CLEARANCE IN PREDICTING GLOMERULAR FILTRATION RATE. ESTIMATED GFR IS NOT APPLICABLE FOR DIALYSIS PATIENTS. BLOOD [id number] 17:01:00 Test Item Value Reference Range Comments CULTURE (BEAKER) (test fhwi=5185) No growth in 5 days BLOOD [id number] 17:01:00 Test Item Value Reference Range Comments CULTURE (BEAKER) (test dluv=1561) No growth in 5 days TISSUE [id number] 15:42:00Surgical Pathology Report Case: [id number] Authorizing Provider: Eduardo Ruggiero MD Collected: 09/28/2018 1342 Ordering Location: [facility] Received: 09/30/2018 0846 SERVICES Pathologist: Nahun Storey MD Specimen: Explant, HARDWARE HARDWARE, LUMBAR SPINE, REMOVAL: HARDWARE (GROSS DIAGNOSIS) Signing Pathologist Direct Phone Line: [phone] DB/ [id number] Hardware Received fresh labeled "explant", description "hardware" are two metallic rods each measuring 11.0 cm in length x 0.3 juanita, three metallic screws ranging in length from 6.5 cm to 11.0 cm and measuring 0.5 cm in diameter, seven metallic washers ranging in diameter from 0.5 cm to 0.7 cm, and a metallic bracket measuring 3.0 x 1.2 x 0.8 cm. The specimen is for gross identification only. DB/ewPOCT-GLUCOSE [id number] 13:01:00 Test Item Value Reference Range Comments POC-GLUCOSE METER (BEAKER) 223 mg/dL 70-110 TESTED AT [address] (test boee=5135) [place] [address] POCT-GLUCOSE [id number] 08:05:00 Test Item Value Reference Range Comments POC-GLUCOSE METER (BEAKER) 114 mg/dL 70-110 TESTED AT [address] (test pxgc=5397) [place] [address] VANCOMYCIN LEVEL, [id number] 22:59:00 Test Item Value Reference Range Comments VANCOMYCIN TROUGH (BEAKER) (test xigr=195) 21.4 ug/mL 10.0-20.0 POCT-GLUCOSE [id number] 21:11:00 Test Item Value Reference Range Comments POC-GLUCOSE METER (BEAKER) 150 mg/dL 70-110 TESTED AT [address] (test bmgn=9443) [place] [id number] POCT-GLUCOSE [id number] 18:09:00 Test Item Value Reference Range Comments POC-GLUCOSE METER (BEAKER) 136 mg/dL 70-110 TESTED AT [address] (test texd=3442) [place] [id number] POCT-GLUCOSE [id number] 08:50:00 Test Item Value Reference Range Comments POC-GLUCOSE METER (BEAKER) 121 mg/dL 70-110 TESTED AT [address] (test dzjj=7315) [place] [address] BASIC METABOLIC [id number] 07:10:00 Test Item Value Reference Range Comments SODIUM (BEAKER) (test 136 meq/L 136-145 oknr=000) POTASSIUM (BEAKER) (test 4.1 meq/L 3.5-5.1 jvfg=073) CHLORIDE (BEAKER) (test 101 meq/L 98-107 jdgq=992) CO2 (BEAKER) (test 24 meq/L 22-29 sfai=470) BLOOD UREA NITROGEN 21 mg/dL 7-21 (BEAKER) (test vkpi=007) CREATININE (BEAKER) (test 3.70 mg/dL 0.57-1.25 fygu=117) GLUCOSE RANDOM (BEAKER) 105 mg/dL 70-105 (test wboy=394) CALCIUM (BEAKER) (test 9.2 mg/dL 8.4-10.2 exzh=555) EGFR (BEAKER) (test 17 mL/min/1.73 sq m ESTIMATED GFR IS NOT cimr=2705) ACCURATE CREATININE CLEARANCE IN PREDICTING GLOMERULAR FILTRATION RATE. ESTIMATED GFR IS NOT APPLICABLE FOR DIALYSIS PATIENTS. CBC W/PLT COUNT & AUTO [id number] 06:30:00 Test Item Value Reference Range Comments WHITE BLOOD CELL COUNT (BEAKER) (test yxph=547) 21.1 K/ L 3.5-10.5 RED BLOOD CELL COUNT (BEAKER) (test qvcs=659) 3.97 M/ L 4.63-6.08 HEMOGLOBIN (BEAKER) (test ozep=044) 9.9 GM/DL 13.7-17.5 HEMATOCRIT (BEAKER) (test klsa=053) 34.6 % 40.1-51.0 MEAN CORPUSCULAR VOLUME (BEAKER) (test hjwv=289) 87.2 fL 79.0-92.2 MEAN CORPUSCULAR HEMOGLOBIN (BEAKER) (test 24.9 pg 25.7-32.2 nvwz=195) MEAN CORPUSCULAR HEMOGLOBIN CONC (BEAKER) (test 28.6 GM/DL 32.3-36.5 vuta=711) RED CELL DISTRIBUTION WIDTH (BEAKER) (test 18.4 % 11.6-14.4 iyuk=785) PLATELET COUNT (BEAKER) (test riqi=551) 297 K/CU MM 150-450 MEAN PLATELET VOLUME (BEAKER) (test word=965) 11.0 fL 9.4-12.4 NUCLEATED RED BLOOD CELLS (BEAKER) (test 0 /100 WBC 0-0 wtnt=578) NEUTROPHILS RELATIVE PERCENT (BEAKER) (test 85 % wuts=839) LYMPHOCYTES RELATIVE PERCENT (BEAKER) (test 4 % agrm=137) MONOCYTES RELATIVE PERCENT (BEAKER) (test 6 % cbee=257) EOSINOPHILS RELATIVE PERCENT (BEAKER) (test 4 % ttaw=993) BASOPHILS RELATIVE PERCENT (BEAKER) (test 1 % ornt=950) NEUTROPHILS ABSOLUTE COUNT (BEAKER) (test 17.86 K/ L 1.78-5.38 dtkh=729) LYMPHOCYTES ABSOLUTE COUNT (BEAKER) (test 0.81 K/ L 1.32-3.57 gjhq=468) MONOCYTES ABSOLUTE COUNT (BEAKER) (test 1.26 K/ L 0.30-0.82 zxgm=047) EOSINOPHILS ABSOLUTE COUNT (BEAKER) (test 0.80 K/ L 0.04-0.54 zpho=563) BASOPHILS ABSOLUTE COUNT (BEAKER) (test 0.12 K/ L 0.01-0.08 qzgs=889) IMMATURE GRANULOCYTES-RELATIVE PERCENT (BEAKER) 1 % 0-1 (test yfme=9570) POCT-GLUCOSE [id number] 20:39:00 Test Item Value Reference Range Comments POC-GLUCOSE METER (BEAKER) 131 mg/dL 70-110 TESTED AT [address] (test ohdf=3432) [place] [address] POCT-GLUCOSE [id number] 19:03:00 Test Item Value Reference Range Comments POC-GLUCOSE METER (BEAKER) 117 mg/dL 70-110 TESTED AT [address] (test ukjs=0872) [place] [address] BLOOD [id number] 14:32:00 Test Item Value Reference Range Comments CULTURE (BEAKER) (test nbdy=6574) No growth in 5 days POCT-GLUCOSE [id number] 12:20:00 Test Item Value Reference Range Comments POC-GLUCOSE METER (BEAKER) 176 mg/dL 70-110 TESTED AT [address] (test pvwv=4470) [place] [address] CBC W/PLT COUNT & AUTO [id number] 09:10:00 Test Item Value Reference Range Comments WHITE BLOOD CELL COUNT (BEAKER) (test xhee=185) 28.2 K/ L 3.5-10.5 RED BLOOD CELL COUNT (BEAKER) (test uptv=554) 3.39 M/ L 4.63-6.08 HEMOGLOBIN (BEAKER) (test pfsz=070) 8.6 GM/DL 13.7-17.5 HEMATOCRIT (BEAKER) (test aaam=811) 29.4 % 40.1-51.0 MEAN CORPUSCULAR VOLUME (BEAKER) (test gygq=693) 86.7 fL 79.0-92.2 MEAN CORPUSCULAR HEMOGLOBIN (BEAKER) (test 25.4 pg 25.7-32.2 uwph=875) MEAN CORPUSCULAR HEMOGLOBIN CONC (BEAKER) (test 29.3 GM/DL 32.3-36.5 nxrd=648) RED CELL DISTRIBUTION WIDTH (BEAKER) (test 18.6 % 11.6-14.4 biqa=705) PLATELET COUNT (BEAKER) (test tvkx=042) 239 K/CU MM 150-450 MEAN PLATELET VOLUME (BEAKER) (test xxfw=943) 10.0 fL 9.4-12.4 NUCLEATED RED BLOOD CELLS (BEAKER) (test 0 /100 WBC 0-0 jykh=237) (CELLAVISION MANUAL DIFF)2018-10-04 09:10:00 Test Item Value Reference Range Comments NEUTROPHILS - REL (CELLAVISION)(BEAKER) (test 91 % soiz=6185) LYMPHOCYTES - REL (CELLAVISION)(BEAKER) (test 2 % olhn=3989) MONOCYTES - REL (CELLAVISION)(BEAKER) (test 2 % eeuo=3006) EOSINOPHILS - REL (CELLAVISION)(BEAKER) (test 4 % efsj=4198) BASOPHILS - REL (CELLAVISION)(BEAKER) (test 1 % zstz=4350) NEUTROPHILS - ABS (CELLAVISION)(BEAKER) (test 25.66 K/ul 1.78-5.38 kodc=4186) LYMPHOCYTES - ABS (CELLAVISION)(BEAKER) (test 0.56 K/ul 1.32-3.57 nrpg=7297) MONOCYTES - ABS (CELLAVISION)(BEAKER) (test 0.56 K/uL 0.30-0.82 brgf=8436) EOSINOPHILS - ABS (CELLAVISION)(BEAKER) (test 1.13 K/uL 0.04-0.54 eskh=3496) BASOPHILS - ABS (CELLAVISION)(BEAKER) (test 0.28 K/uL 0.01-0.08 ddec=2519) TOTAL COUNTED (BEAKER) (test eglq=1780) 100 PLT MORPHOLOGY (BEAKER) (test tkus=555) Normal SMUDGE CELLS (BEAKER) (test fiyi=5136) Present HYPOCHROMIA (BEAKER) (test xwus=027) 1+ few ANISOCYTOSIS (BEAKER) (test kzmu=641) 1+ few PLATELET CONCENTRATION (CELLAVISION)(BEAKER) Adequate (test vand=5418) Received comment: User comments: Slide comments:POCT-GLUCOSE [id number] 08: 07:00 Test Item Value Reference Range Comments POC-GLUCOSE METER (BEAKER) 99 mg/dL 70-110 TESTED AT [facility] [address] [facility] (test iyum=1629) [facility] [address] BASIC METABOLIC [id number] 06:26:00 Test Item Value Reference Range Comments SODIUM (BEAKER) (test 140 meq/L 136-145 fcts=233) POTASSIUM (BEAKER) (test 3.3 meq/L 3.5-5.1 jjzj=019) CHLORIDE (BEAKER) (test 104 meq/L 98-107 jnuy=219) CO2 (BEAKER) (test 27 meq/L 22-29 yvql=138) BLOOD UREA NITROGEN 13 mg/dL 7-21 (BEAKER) (test liib=768) CREATININE (BEAKER) (test 2.59 mg/dL 0.57-1.25 thdi=696) GLUCOSE RANDOM (BEAKER) 78 mg/dL 70-105 (test wsaw=802) CALCIUM (BEAKER) (test 8.7 mg/dL 8.4-10.2 hbwa=822) EGFR (BEAKER) (test 25 mL/min/1.73 sq m ESTIMATED GFR IS NOT qcvu=4660) ACCURATE CREATININE CLEARANCE IN PREDICTING GLOMERULAR FILTRATION RATE. ESTIMATED GFR IS NOT APPLICABLE FOR DIALYSIS PATIENTS. [id number] 06:23:00 Test Item Value Reference Range Comments MAGNESIUM (BEAKER) (test yosb=018) 1.8 mg/dL 1.6-2.6 VANCOMYCIN LEVEL, [id number] 22:07:00 Test Item Value Reference Range Comments VANCOMYCIN RANDOM (BEAKER) (test htrw=954) 21.7 ug/mL Reference Range: No NormalsHold dose if level is >20 mcg/mL and contact physician.POCT-GLUCOSE [id number] 21:53:00 Test Item Value Reference Range Comments POC-GLUCOSE METER (BEAKER) 109 mg/dL 70-110 TESTED AT [facility] [address] [facility] (test rbay=5603) [facility] [address] POCT-GLUCOSE [id number] 17:47:00 Test Item Value Reference Range Comments POC-GLUCOSE METER (BEAKER) 168 mg/dL 70-110 TESTED AT [place] [id number] [facility] (test bgwx=9701) [place] [id number] [id number] 15:39:00 Test Item Value Reference Range Comments MAGNESIUM (BEAKER) (test ngsc=066) 2.3 mg/dL 1.6-2.6 CT, SPINE, LUMBAR, WO [id number] 13:57:00FINAL REPORT CT Lumbar spine CLINICAL HISTORY: s/p lumbar fixation/fusion andwashout of wound TECHNIQUE: Contiguous noncontrast axial images of the lumbar spine with coronal andsagittal reformations to assess the alignment. This exam was performed according to the departmentaldose optimization program which includes automated exposure control, adjustment of the mA and/or kV according to the patient size, and/or use of an iterative reconstruction technique. COMPARISON: Lumbar CT 09/26/2018 FINDINGS: There is been interval extension of lumbosacral fusion to include the L3 vertebral body. The previous backtracked left L4 and L5 pedicle screws have been revised, and are now well situated within the vertebral body. A fracture dislocation of the S1 vertebral body anteriorly with heterotopic bone formation is grossly unchanged. Asymmetric widening of the left sacroiliac joint is again seen, perhaps slightly decreased. The dorsal posterior paraspinous fluid collection has been debrided, with minimal residual fluid in the soft tissues. IMPRESSION: Since 09/26/2018, status post revision of lumbosacral fusion to include L3 through the sacroiliac joints, with improved postsurgicalappearance. Status post debridement of the posterior paraspinous fluid collection. Signed: Roosevelt Magana MDReport Verified Date/Time: 10/03/2018 13:57:43 Reading Location: [facility] B1 C013V Neuro Reading Room POCT-GLUCOSE [id number] 12:22:00 Test Item Value Reference Range Comments POC-GLUCOSE METER (BEAKER) 138 mg/dL 70-110 TESTED AT [facility] [address] [facility] (test okfg=9571) [facility] [address] SPUTUM CULTURE + GRAM [id number] 11:45:00 Test Item Value Reference Range Comments CULTURE (BEAKER) (test tloz=1232) See comment GRAM STAIN RESULT (BEAKER) (test <1+ WBCs bptf=5790) GRAM STAIN RESULT (BEAKER) (test 0-5 epithelial cells kukx=476562) GRAM STAIN RESULT (BEAKER) (test 1+ yeast yvpu=671168) 3+ yeastNo Normal respiratory nilesh presentPOCT-GLUCOSE [id number] 08:23:00 Test Item Value Reference Range Comments POC-GLUCOSE METER (BEAKER) 115 mg/dL 70-110 TESTED AT [place] [id number] [facility] (test fajh=2821) [facility] [address] COMPREHENSIVE METABOLIC [id number] 04:19:00 Test Item Value Reference Range Comments TOTAL PROTEIN (BEAKER) 5.5 gm/dL 6.0-8.3 (test xjdi=021) ALBUMIN (BEAKER) (test 2.5 g/dL 3.5-5.0 qfiu=3753) ALKALINE PHOSPHATASE 116 U/L 40-150 (BEAKER) (test mhbv=703) BILIRUBIN TOTAL (BEAKER) 0.5 mg/dL 0.2-1.2 (test dgpz=836) SODIUM (BEAKER) (test 139 meq/L 136-145 czzm=486) POTASSIUM (BEAKER) (test 3.6 meq/L 3.5-5.1 tvvy=405) CHLORIDE (BEAKER) (test 102 meq/L 98-107 urkq=384) CO2 (BEAKER) (test 25 meq/L 22-29 dkgw=252) BLOOD UREA NITROGEN 32 mg/dL 7-21 (BEAKER) (test zhhj=606) CREATININE (BEAKER) (test 4.64 mg/dL 0.57-1.25 rwmq=844) GLUCOSE RANDOM (BEAKER) 98 mg/dL 70-105 (test yyry=210) CALCIUM (BEAKER) (test 8.7 mg/dL 8.4-10.2 pail=191) AST (SGOT) (BEAKER) (test 9 U/L 5-34 bixp=534) ALT (SGPT) (BEAKER) (test 7 U/L 6-55 xlyf=621) EGFR (BEAKER) (test 13 mL/min/1.73 sq m ESTIMATED GFR IS NOT jsvu=5666) ACCURATE CREATININE CLEARANCE IN PREDICTING GLOMERULAR FILTRATION RATE. ESTIMATED GFR IS NOT APPLICABLE FOR DIALYSIS PATIENTS. [id number] 04:10:00 Test Item Value Reference Range Comments PHOSPHORUS (BEAKER) (test ahmh=405) 5.6 mg/dL 2.3-4.7 [id number] 04:10:00 Test Item Value Reference Range Comments MAGNESIUM (BEAKER) (test yrsm=738) 1.9 mg/dL 1.6-2.6 CALCIUM, [id number] 03:56:00 Test Item Value Reference Range Comments CALCIUM IONIZED (BEAKER) (test eygg=098) 1.11 mmol/L 1.12-1.27 PH, BLOOD (BEAKER) (test jdaq=9441) 7.35 CBC W/PLT COUNT & AUTO [id number] 03:49:00 Test Item Value Reference Range Comments WHITE BLOOD CELL COUNT (BEAKER) (test mbhk=252) 36.0 K/ L 3.5-10.5 RED BLOOD CELL COUNT (BEAKER) (test nhhn=216) 3.08 M/ L 4.63-6.08 HEMOGLOBIN (BEAKER) (test bxjk=378) 8.0 GM/DL 13.7-17.5 HEMATOCRIT (BEAKER) (test cjal=564) 26.9 % 40.1-51.0 MEAN CORPUSCULAR VOLUME (BEAKER) (test xyfc=853) 87.3 fL 79.0-92.2 MEAN CORPUSCULAR HEMOGLOBIN (BEAKER) (test 26.0 pg 25.7-32.2 ideb=577) MEAN CORPUSCULAR HEMOGLOBIN CONC (BEAKER) (test 29.7 GM/DL 32.3-36.5 rcyj=510) RED CELL DISTRIBUTION WIDTH (BEAKER) (test 18.9 % 11.6-14.4 cyil=758) PLATELET COUNT (BEAKER) (test kgsi=691) 227 K/CU MM 150-450 MEAN PLATELET VOLUME (BEAKER) (test jqrt=906) 11.2 fL 9.4-12.4 NUCLEATED RED BLOOD CELLS (BEAKER) (test 0 /100 WBC 0-0 gulf=431) NEUTROPHILS RELATIVE PERCENT (BEAKER) (test 89 % dhsu=745) LYMPHOCYTES RELATIVE PERCENT (BEAKER) (test 1 % anmw=943) MONOCYTES RELATIVE PERCENT (BEAKER) (test 4 % wkyl=928) EOSINOPHILS RELATIVE PERCENT (BEAKER) (test 4 % zblw=288) BASOPHILS RELATIVE PERCENT (BEAKER) (test 0 % lvsx=923) NEUTROPHILS ABSOLUTE COUNT (BEAKER) (test 31.85 K/ L 1.78-5.38 qwlc=894) LYMPHOCYTES ABSOLUTE COUNT (BEAKER) (test 0.52 K/ L 1.32-3.57 dpsn=998) MONOCYTES ABSOLUTE COUNT (BEAKER) (test 1.30 K/ L 0.30-0.82 odbo=919) EOSINOPHILS ABSOLUTE COUNT (BEAKER) (test 1.37 K/ L 0.04-0.54 ondt=892) BASOPHILS ABSOLUTE COUNT (BEAKER) (test 0.14 K/ L 0.01-0.08 wobx=150) IMMATURE GRANULOCYTES-RELATIVE PERCENT (BEAKER) 2 % 0-1 (test hlbo=8325) POCT-GLUCOSE [id number] 22:19:00 Test Item Value Reference Range Comments POC-GLUCOSE METER (BEAKER) 119 mg/dL 70-110 TESTED AT [address] (test tcea=4227) [place] [address] POCT-GLUCOSE [id number] 18:45:00 Test Item Value Reference Range Comments POC-GLUCOSE METER (BEAKER) 123 mg/dL 70-110 TESTED AT [address] (test lwuz=5455) [place] [address] POCT-GLUCOSE [id number] 13:10:00 Test Item Value Reference Range Comments POC-GLUCOSE METER (BEAKER) 111 mg/dL 70-110 TESTED AT [address] (test uofr=9081) [place] [address] CBC W/PLT COUNT & AUTO [id number] 06:45:00 Test Item Value Reference Range Comments WHITE BLOOD CELL COUNT (BEAKER) (test zdci=065) 45.1 K/ L 3.5-10.5 RED BLOOD CELL COUNT (BEAKER) (test ihco=534) 3.14 M/ L 4.63-6.08 HEMOGLOBIN (BEAKER) (test lgsi=003) 8.0 GM/DL 13.7-17.5 HEMATOCRIT (BEAKER) (test ofqu=961) 27.2 % 40.1-51.0 MEAN CORPUSCULAR VOLUME (BEAKER) (test oudp=212) 86.6 fL 79.0-92.2 MEAN CORPUSCULAR HEMOGLOBIN (BEAKER) (test 25.5 pg 25.7-32.2 lwuy=617) MEAN CORPUSCULAR HEMOGLOBIN CONC (BEAKER) (test 29.4 GM/DL 32.3-36.5 gqfg=705) RED CELL DISTRIBUTION WIDTH (BEAKER) (test 19.2 % 11.6-14.4 awik=022) PLATELET COUNT (BEAKER) (test wrlt=474) 227 K/CU MM 150-450 MEAN PLATELET VOLUME (BEAKER) (test jzno=988) 10.4 fL 9.4-12.4 NUCLEATED RED BLOOD CELLS (BEAKER) (test 0 /100 WBC 0-0 nuri=980) (CELLAVISION MANUAL DIFF)[id number] 06:45:00 Test Item Value Reference Range Comments NEUTROPHILS - REL (CELLAVISION)(BEAKER) (test 93 % bktr=2465) LYMPHOCYTES - REL (CELLAVISION)(BEAKER) (test 2 % gujy=8484) MONOCYTES - REL (CELLAVISION)(BEAKER) (test 3 % trek=5790) EOSINOPHILS - REL (CELLAVISION)(BEAKER) (test 1 % hyzd=8366) BANDS - REL (CELLAVISION)(BEAKER) (test 1 % 0-10 enrc=9021) NEUTROPHILS - ABS (CELLAVISION)(BEAKER) (test 41.94 K/ul 1.78-5.38 bxfn=2031) LYMPHOCYTES - ABS (CELLAVISION)(BEAKER) (test 0.90 K/ul 1.32-3.57 cqpx=9463) MONOCYTES - ABS (CELLAVISION)(BEAKER) (test 1.35 K/uL 0.30-0.82 xrft=9941) EOSINOPHILS - ABS (CELLAVISION)(BEAKER) (test 0.45 K/uL 0.04-0.54 ktrq=5541) BANDS - ABS (CELLAVISION)(BEAKER) (test 0.45 K/uL 0.00-0.80 wvyt=6812) TOTAL COUNTED (BEAKER) (test slpl=7509) 100 WBC MORPHOLOGY (BEAKER) (test zsoo=096) Normal PLT MORPHOLOGY (BEAKER) (test fpsm=145) Normal HYPOCHROMIA (BEAKER) (test nglg=289) 1+ few ANISOCYTOSIS (BEAKER) (test qrwm=497) 1+ few POIKILOCYTES (BEAKER) (test imeq=565) 1+ few ARTIFACT (CELLAVISION)(BEAKER) (test hvvz=3369) Present PLATELET CONCENTRATION (CELLAVISION)(BEAKER) Adequate (test qnvy=2664) Received comment: User comments: Slide comments:CALCIUM, [id number] 05:40 :00 Test Item Value Reference Range Comments CALCIUM IONIZED (BEAKER) (test vlws=246) 1.10 mmol/L 1.12-1.27 PH, BLOOD (BEAKER) (test hguu=3343) 7.34 BASIC METABOLIC [id number] 04:38:00 Test Item Value Reference Range Comments SODIUM (BEAKER) (test 138 meq/L 136-145 dign=089) POTASSIUM (BEAKER) (test 3.4 meq/L 3.5-5.1 xlid=621) CHLORIDE (BEAKER) (test 101 meq/L 98-107 wrcg=311) CO2 (BEAKER) (test 25 meq/L 22-29 rmvx=651) BLOOD UREA NITROGEN 18 mg/dL 7-21 (BEAKER) (test eaev=463) CREATININE (BEAKER) (test 3.20 mg/dL 0.57-1.25 alja=727) GLUCOSE RANDOM (BEAKER) 98 mg/dL 70-105 (test vyxu=020) CALCIUM (BEAKER) (test 8.4 mg/dL 8.4-10.2 twff=478) EGFR (BEAKER) (test 20 mL/min/1.73 sq m ESTIMATED GFR IS NOT zeuf=2961) ACCURATE CREATININE CLEARANCE IN PREDICTING GLOMERULAR FILTRATION RATE. ESTIMATED GFR IS NOT APPLICABLE FOR DIALYSIS PATIENTS. [id number] 04:36:00 Test Item Value Reference Range Comments PHOSPHORUS (BEAKER) (test cwns=530) 4.8 mg/dL 2.3-4.7 [id number] 04:36:00 Test Item Value Reference Range Comments MAGNESIUM (BEAKER) (test qbtn=859) 1.8 mg/dL 1.6-2.6 POCT-GLUCOSE [id number] 23:43:00 Test Item Value Reference Range Comments POC-GLUCOSE METER (BEAKER) 105 mg/dL 70-110 TESTED AT [place] [id number] [facility] (test guvu=9578) [place] [id number] POCT-GLUCOSE [id number] 17:59:00 Test Item Value Reference Range Comments POC-GLUCOSE METER (BEAKER) 123 mg/dL 70-110 TESTED AT [address] (test ftkk=5816) [place] [id number] ANAEROBIC [id number] 17:49:00 Test Item Value Reference Range Comments CULTURE (BEAKER) (test atyc=0813) No anaerobes isolated RAD, ABDOMEN/KUB, 1 VIEW [id number] 17:28:00Reason for exam:->NGT placementShould this be performed at the bedside?->YesFINAL REPORT EXAM: AP abdominal radiograph HISTORY PROVIDED: Nasogastric tubeplacement COMPARISON: None available IMPRESSION:The tip of a nasogastric tube projects over the expected location of the stomach. The visualized bowel gas pattern is nonspecific but appears nonobstructive. A moderate amount of stool is seen within the colon. While no definite free air is seen, this examination is insensitive for the detection of free air. Postsurgical changes with fusion hardware areseen in the lower lumbar spine. Degenerative changes are noted. No acute osseous abnormality. Midline surgical kaur are noted. Signed: Rob Hernandez Verified Date/Time: 10/01/2018 17:28:51 Reading Location: [facility] POCT-GLUCOSE [id number] 13:50:00 Test Item Value Reference Range Comments POC-GLUCOSE METER (BEAKER) 99 mg/dL 70-110 TESTED AT [facility] [address] (test tdbj=2048) [place] [address] CBC W/PLT COUNT & AUTO [id number] 10:41:00 Test Item Value Reference Range Comments WHITE BLOOD CELL COUNT (BEAKER) (test raon=676) 45.5 K/ L 3.5-10.5 RED BLOOD CELL COUNT (BEAKER) (test ycyr=805) 3.54 M/ L 4.63-6.08 HEMOGLOBIN (BEAKER) (test qcqy=706) 8.9 GM/DL 13.7-17.5 HEMATOCRIT (BEAKER) (test berx=030) 30.7 % 40.1-51.0 MEAN CORPUSCULAR VOLUME (BEAKER) (test iwwz=160) 86.7 fL 79.0-92.2 MEAN CORPUSCULAR HEMOGLOBIN (BEAKER) (test 25.1 pg 25.7-32.2 hjnm=677) MEAN CORPUSCULAR HEMOGLOBIN CONC (BEAKER) (test 29.0 GM/DL 32.3-36.5 vrfs=336) RED CELL DISTRIBUTION WIDTH (BEAKER) (test 19.3 % 11.6-14.4 ecyk=372) PLATELET COUNT (BEAKER) (test uajz=763) 215 K/CU MM 150-450 MEAN PLATELET VOLUME (BEAKER) (test tpdw=202) 10.6 fL 9.4-12.4 NUCLEATED RED BLOOD CELLS (BEAKER) (test 0 /100 WBC 0-0 djtu=695) (CELLAVISION MANUAL DIFF)2018-10-01 10:41:00 Test Item Value Reference Range Comments NEUTROPHILS - REL (CELLAVISION)(BEAKER) (test 75 % wdgs=5265) MONOCYTES - REL (CELLAVISION)(BEAKER) (test 2 % kjvr=8145) BANDS - REL (CELLAVISION)(BEAKER) (test 22 % 0-10 cdaq=3030) ATYPICAL LYMPHOCYTES - REL (CELLAVISION)(BEAKER) 1 % 0-0 (test gxmv=9489) NEUTROPHILS - ABS (CELLAVISION)(BEAKER) (test 34.13 K/ul 1.78-5.38 xhxr=0669) MONOCYTES - ABS (CELLAVISION)(BEAKER) (test 0.91 K/uL 0.30-0.82 wbzs=0510) BANDS - ABS (CELLAVISION)(BEAKER) (test 10.01 K/uL 0.00-0.80 znnz=3742) ATYPICAL LYMPHOCYTES - ABS (CELLAVISION)(BEAKER) 0.46 K/uL 0.00-0.00 (test hnfx=1675) TOTAL COUNTED (BEAKER) (test rafn=5545) 100 WBC MORPHOLOGY (BEAKER) (test xdbo=241) Normal PLT MORPHOLOGY (BEAKER) (test xpvl=288) Normal ANISOCYTOSIS (BEAKER) (test pzqx=799) 1+ few MACROCYTES (BEAKER) (test geya=753) 1+ few ARTIFACT (CELLAVISION)(BEAKER) (test zwcq=3368) Present PLATELET CONCENTRATION (CELLAVISION)(BEAKER) Adequate (test uqxi=1040) Received comment: User comments: Slide comments:CBC W/PLT COUNT & AUTO [id number] 09:12:00 Test Item Value Reference Range Comments WHITE BLOOD CELL COUNT (BEAKER) (test nwbo=891) 52.3 K/ L 3.5-10.5 RED BLOOD CELL COUNT (BEAKER) (test long=829) 3.36 M/ L 4.63-6.08 HEMOGLOBIN (BEAKER) (test bvwu=590) 8.6 GM/DL 13.7-17.5 HEMATOCRIT (BEAKER) (test wntm=033) 29.0 % 40.1-51.0 MEAN CORPUSCULAR VOLUME (BEAKER) (test qtxp=910) 86.3 fL 79.0-92.2 MEAN CORPUSCULAR HEMOGLOBIN (BEAKER) (test 25.6 pg 25.7-32.2 hmxk=287) MEAN CORPUSCULAR HEMOGLOBIN CONC (BEAKER) (test 29.7 GM/DL 32.3-36.5 ifqj=264) RED CELL DISTRIBUTION WIDTH (BEAKER) (test 19.3 % 11.6-14.4 rvhc=272) PLATELET COUNT (BEAKER) (test pwcf=741) 201 K/CU MM 150-450 MEAN PLATELET VOLUME (BEAKER) (test yvhl=963) 10.5 fL 9.4-12.4 NUCLEATED RED BLOOD CELLS (BEAKER) (test 0 /100 WBC 0-0 zntb=427) (CELLAVISION MANUAL DIFF)2018-10-01 09:08:00 Test Item Value Reference Range Comments NEUTROPHILS - REL (CELLAVISION)(BEAKER) (test 86 % gwks=4781) MONOCYTES - REL (CELLAVISION)(BEAKER) (test 3 % fuew=8906) BANDS - REL (CELLAVISION)(BEAKER) (test 11 % 0-10 vkaz=0718) NEUTROPHILS - ABS (CELLAVISION)(BEAKER) (test 44.98 K/ul 1.78-5.38 fwke=7649) MONOCYTES - ABS (CELLAVISION)(BEAKER) (test 1.57 K/uL 0.30-0.82 gtav=1268) BANDS - ABS (CELLAVISION)(BEAKER) (test 5.75 K/uL 0.00-0.80 alwa=1368) TOTAL COUNTED (BEAKER) (test ufnm=8557) 100 WBC MORPHOLOGY (BEAKER) (test jjeo=885) Normal PLT MORPHOLOGY (BEAKER) (test vyqd=173) Normal POLYCHROMATOPHILLIC RBCS(BEAKER) (test rjib=027) 1+ few HYPOCHROMIA (BEAKER) (test uglc=023) 2+ moderate ANISOCYTOSIS (BEAKER) (test yftv=348) 1+ few MICROCYTES (BEAKER) (test ursf=736) 1+ few POIKILOCYTES (BEAKER) (test pnkt=636) 1+ few ARTIFACT (CELLAVISION)(BEAKER) (test mjpz=1521) Present PLATELET CONCENTRATION (CELLAVISION)(BEAKER) Adequate (test qdhj=0784) Received comment: User comments: Slide comments:RAD, CHEST, 1 VIEW, NON [id number] 08:48:00Reason for exam:->intubation, aspirationShould this be performed at the bedside?->YesFINAL REPORT TECHNIQUE : Frontal chest radiograph dated 10/01/2018. CLINICAL HISTORY: intubation, aspiration COMPARISON STUDY: Chest radiograph dated 09/30/2018 IMPRESSION: Life support tubes and lines are unchanged. Airspace opacity in the left lower lobe has decreased. There is persistent pulmonary vascular congestion. Trace left pleural effusion. No pneumothorax. Cardiomediastinal silhouette is stable in size. No pulmonary edema. Bones are osteopenic. Signed: Marzena Pabon MDReport Verified Date/Time: 10/01/2018 08:48:55 Reading Location: [facility] Radiology Reading Room BASIC METABOLIC [id number] 08:43:00 Test Item Value Reference Range Comments SODIUM (BEAKER) (test 138 meq/L 136-145 pnbj=547) POTASSIUM (BEAKER) (test 4.6 meq/L 3.5-5.1 data=585) CHLORIDE (BEAKER) (test 102 meq/L 98-107 jihi=610) CO2 (BEAKER) (test 22 meq/L 22-29 zedn=879) BLOOD UREA NITROGEN 34 mg/dL 7-21 (BEAKER) (test dimc=731) CREATININE (BEAKER) (test 5.85 mg/dL 0.57-1.25 yhla=628) GLUCOSE RANDOM (BEAKER) 81 mg/dL 70-105 (test gdno=333) CALCIUM (BEAKER) (test 8.6 mg/dL 8.4-10.2 aiqf=000) EGFR (BEAKER) (test 10 mL/min/1.73 sq m ESTIMATED GFR IS NOT nmzq=7416) ACCURATE CREATININE CLEARANCE IN PREDICTING GLOMERULAR FILTRATION RATE. ESTIMATED GFR IS NOT APPLICABLE FOR DIALYSIS PATIENTS. POCT-GLUCOSE [id number] 08:41:00 Test Item Value Reference Range Comments POC-GLUCOSE METER (BEAKER) 70 mg/dL 70-110 TESTED AT [facility] [address] [facility] (test wqhq=5652) [facility] [address] BLOOD GAS, [id number] 08:35:00 Test Item Value Reference Range Comments PH ARTERIAL (BEAKER) (test ylda=513) 7.37 7.35-7.45 PCO2 ARTERIAL (BEAKER) (test ygfj=708) 39 mmHg 35-45 PO2 ARTERIAL (BEAKER) (test vlsb=708) 246 mmHg 80-90 O2 SATURATION ARTERIAL (BEAKER) (test orwg=785) 99.5 % 96.0-97.0 HCO3 ARTERIAL (BEAKER) (test qcel=999) 22 mmol/L 21-29 BASE EXCESS ARTERIAL (BEAKER) (test rhvd=382) -2.9 mmol/L -2.0-3.0 PATIENT TEMPERATURE (BEAKER) (test poen=3039) 36.9 C FIO2 (BEAKER) (test swbm=5102) 50.0 % VANCOMYCIN LEVEL, [id number] 07:07:00 Test Item Value Reference Range Comments VANCOMYCIN RANDOM (BEAKER) (test meoa=787) 24.6 ug/mL Reference Range: No NormalsPOCT-GLUCOSE [id number] 06:51:00 Test Item Value Reference Range Comments POC-GLUCOSE METER (BEAKER) 73 mg/dL 70-110 TESTED AT [address] (test yoxy=1911) [place] [address] BLOOD [id number] 05:01:00 Test Item Value Reference Range Comments CULTURE (BEAKER) (test lmqr=0929) No growth in 5 days BLOOD [id number] 05:01:00 Test Item Value Reference Range Comments CULTURE (BEAKER) (test fdhc=5845) No growth in 5 days POCT-GLUCOSE [id number] 00:36:00 Test Item Value Reference Range Comments POC-GLUCOSE METER (BEAKER) 113 mg/dL 70-110 TESTED AT [address] (test nkjr=8425) [place] [address] POCT-GLUCOSE [id number] 22:40:00 Test Item Value Reference Range Comments POC-GLUCOSE METER (BEAKER) 71 mg/dL 70-110 TESTED AT [address] (test plre=7635) [place] [address] POCT-GLUCOSE [id number] 18:44:00 Test Item Value Reference Range Comments POC-GLUCOSE METER (BEAKER) 88 mg/dL 70-110 TESTED AT [address] (test qobh=4614) [place] [id number] BLOOD GAS, [id number] 17:40:00 Test Item Value Reference Range Comments PH ARTERIAL (BEAKER) (test daas=127) 7.35 7.35-7.45 PCO2 ARTERIAL (BEAKER) (test gjfm=204) 46 mmHg 35-45 PO2 ARTERIAL (BEAKER) (test gyqp=514) 94 mmHg 80-90 O2 SATURATION ARTERIAL (BEAKER) (test cefh=319) 96.8 % 96.0-97.0 HCO3 ARTERIAL (BEAKER) (test kiih=651) 25 mmol/L 21-29 BASE EXCESS ARTERIAL (BEAKER) (test cejv=589) -1.1 mmol/L -2.0-3.0 PATIENT TEMPERATURE (BEAKER) (test dieu=9000) 37.0 C FIO2 (BEAKER) (test vsxz=4799) 50.0 % POCT-GLUCOSE [id number] 16:03:00 Test Item Value Reference Range Comments POC-GLUCOSE METER (BEAKER) 108 mg/dL 70-110 TESTED AT [facility] [address] [facility] (test gusc=6629) [facility] [address] RAD, CHEST, 1 VIEW, NON [id number] 14:14:00Reason for exam:->intubation due to aspirationShould this be performed at the bedside?->YesFINAL REPORT RAD, CHEST, 1 VIEW, NON DEPT INDICATION: intubation due to aspiration COMPARISON: Two hours prior FINDINGS: Portable frontal view of the chest. IMPRESSION: Support Lines: Endotracheal tube terminates 8 cm above the tom. Right IJ central venous catheter is stable. Lungs and pleura: Increasing subsegmental atelectasis at the left base. No new consolidation or effusion. No pneumothorax.Heart and mediastinum: Stable contours. Additional findings: None. Signed: JR Rucker Robert MDReport Verified Date/Time: 09/30/2018 14:14:47 Reading Location: [address] Consult Reading Room SURGICALLY OBTAINED CULTURE + GRAM [id number] 13:53:00 Test Item Value Reference Range Comments CULTURE (BEAKER) (test METHICILLIN RESISTANT 3+ Methicillin usna=0706) STAPHYLOCOCCUS AUREUS resistant Staphylococcus aureus Clindamycin (test code=10) Erythromycin (test code=4) Oxacillin (test code=14) Rifampin (test code=43) Tetracycline (test code=2) Trimethoprim + Sulfamethoxazole (test code=47) Vancomycin (test code=13) GRAM STAIN RESULT 4+ WBCs (BEAKER) (test afxr=1497) GRAM STAIN RESULT <1+ gram positive (BEAKER) (test cocci in pairs and fydq=394389) clusters [id number] 12:28:00Medical Cytology Report Case: [id number] Authorizing Provider: Malena Whittaker, Collected: 09/26/2018 1554 OCEAN EXPORT ACCOUNT MANAGER OrderingLocation: [address] Received: 2017 0922 Service Pathologist: Chayo Bashir MD Specimen: Pleural, Left LEFT PLEURAL FLUID ( CYTOSPINS ): - NEGATIVE FOR MALIGNANCY - MESOTHELIAL CELLS; ACUTE INFLAMMATORY CELLS Signing Pathologist Direct Phone Line: [phone] pleural effusion, history of Parkinson's disease, MRSA bacteremia , HTN, DM, ESRD (TTS),CAD, and Atrial fibrillation LEFT PLEURAL FLUID5 mls yellow ; 4 cytospinsCollected: [id number]: [id number].[facility], Department of Pathology, [address] [place] [address], [facility], [facility] of[facility], [address] [place] [address], [facility] of [facility], [address] [place] [address], JXC, CHEST, 1 VIEW, NON [id number] 12:15:00Reason for exam:->CT removalShould this be performed at the bedside?->YesFINAL REPORT RAD, CHEST, 1 VIEW, NON DEPT INDICATION: CT removal COMPARISON: Six hours prior FINDINGS: Portable frontal view of the chest. IMPRESSION: Support Lines: Small caliber pigtail catheter on the left has been removed. Lungs and pleura: No visible residual pneumothorax on the left. Underinflation and subsegmental atelectasis are present bilaterally. No pneumothorax.Heart and mediastinum: Stable contours. Additional findings: None. Signed: JR Rucker Robert MDReport Verified Date/Time: 09/30/2018 12:15: 02 Reading Location: [facility] Radiology Reading Room POCT-GLUCOSE [id number] 12:14:00 Test Item Value Reference Range Comments POC-GLUCOSE METER (BEAKER) 98 mg/dL 70-110 TESTED AT [place] [id number] [facility] (test qzue=3674) [facility] [address] POCT-GLUCOSE [id number] 09:50:00 Test Item Value Reference Range Comments POC-GLUCOSE METER (BEAKER) 111 mg/dL 70-110 TESTED AT [address] (test vyvu=8547) [facility] [address] CBC W/PLT COUNT & AUTO [id number] 08:22:00 Test Item Value Reference Range Comments WHITE BLOOD CELL COUNT (BEAKER) (test izbt=814) 17.4 K/ L 3.5-10.5 RED BLOOD CELL COUNT (BEAKER) (test hxmi=875) 3.40 M/ L 4.63-6.08 HEMOGLOBIN (BEAKER) (test kljc=508) 8.7 GM/DL 13.7-17.5 HEMATOCRIT (BEAKER) (test czdx=938) 28.7 % 40.1-51.0 MEAN CORPUSCULAR VOLUME (BEAKER) (test fysv=371) 84.4 fL 79.0-92.2 MEAN CORPUSCULAR HEMOGLOBIN (BEAKER) (test 25.6 pg 25.7-32.2 lwyd=215) MEAN CORPUSCULAR HEMOGLOBIN CONC (BEAKER) (test 30.3 GM/DL 32.3-36.5 ncoc=507) RED CELL DISTRIBUTION WIDTH (BEAKER) (test 18.8 % 11.6-14.4 eryq=127) PLATELET COUNT (BEAKER) (test irzy=905) 210 K/CU MM 150-450 MEAN PLATELET VOLUME (BEAKER) (test tidf=906) 10.1 fL 9.4-12.4 NUCLEATED RED BLOOD CELLS (BEAKER) (test 0 /100 WBC 0-0 ibia=253) (CELLAVISION MANUAL DIFF)2018-09-30 08:22:00 Test Item Value Reference Range Comments NEUTROPHILS - REL (CELLAVISION)(BEAKER) (test 82 % lnud=7251) MONOCYTES - REL (CELLAVISION)(BEAKER) (test 9 % vgmb=8276) EOSINOPHILS - REL (CELLAVISION)(BEAKER) (test 9 % qzdv=5441) NEUTROPHILS - ABS (CELLAVISION)(BEAKER) (test 14.27 K/ul 1.78-5.38 mcwy=2828) MONOCYTES - ABS (CELLAVISION)(BEAKER) (test 1.57 K/uL 0.30-0.82 rgbv=3251) EOSINOPHILS - ABS (CELLAVISION)(BEAKER) (test 1.57 K/uL 0.04-0.54 ykkk=4367) TOTAL COUNTED (BEAKER) (test xizf=1858) 100 SMUDGE CELLS (BEAKER) (test eidt=6768) Present GIANT PLATELETS (BEAKER) (test bdoi=141) Present POLYCHROMATOPHILLIC RBCS(BEAKER) (test ptph=851) 2+ moderate HYPOCHROMIA (BEAKER) (test ykxx=370) 1+ few ANISOCYTOSIS (BEAKER) (test qzjx=192) 1+ few MICROCYTES (BEAKER) (test dbsb=580) 1+ few POIKILOCYTES (BEAKER) (test vrpm=178) 1+ few ARTIFACT (CELLAVISION)(BEAKER) (test fmwb=4766) Present PLATELET CONCENTRATION (CELLAVISION)(BEAKER) Adequate (test jwbf=0529) Received comment: Post transfusionUser comments: Slide comments:POCT-GLUCOSE [id number] 06:23:00 Test Item Value Reference Range Comments POC-GLUCOSE METER (BEAKER) 116 mg/dL 70-110 TESTED AT [address] (test qnsm=7875) [facility] [address] RAD, CHEST, 1 VIEW, NON [id number] 06:15:00Reason for exam:->chest tubeShould this be performed at the bedside?->YesFINAL REPORT RAD, CHEST, 1 VIEW, NON DEPT INDICATION: chest tube COMPARISON: Prior day's exam FINDINGS: Portable frontal view of the chest. IMPRESSION: Support Lines: Stable. Lungs and pleura: Increased heterogeneous airspace opacity in the right perihilar region could represent asymmetric pulmonary edema atelectasis however superimposed infection cannot be excluded. Right costophrenic angle is not included on the study. No left pleural effusion. Unchanged catheter tubing over the left upper quadrant. No pneumothorax. Heart and mediastinum: Stable contours. Additional findings: None. Signed: Brant Raya Verified Date/Time: 09/30/2018 06:15:22 Reading Location: [address] Transitional Reading Room BASIC METABOLIC [id number] 05:17:00 Test Item Value Reference Range Comments SODIUM (BEAKER) (test 138 meq/L 136-145 uemr=543) POTASSIUM (BEAKER) (test 4.2 meq/L 3.5-5.1 mibi=600) CHLORIDE (BEAKER) (test 103 meq/L 98-107 vfak=642) CO2 (BEAKER) (test 24 meq/L 22-29 yfxs=765) BLOOD UREA NITROGEN 25 mg/dL 7-21 (BEAKER) (test nyyn=709) CREATININE (BEAKER) (test 4.38 mg/dL 0.57-1.25 uofe=306) GLUCOSE RANDOM (BEAKER) 106 mg/dL 70-105 (test nhvf=039) CALCIUM (BEAKER) (test 8.6 mg/dL 8.4-10.2 idff=093) EGFR (BEAKER) (test 14 mL/min/1.73 sq m ESTIMATED GFR IS NOT kysg=1199) ACCURATE CREATININE CLEARANCE IN PREDICTING GLOMERULAR FILTRATION RATE. ESTIMATED GFR IS NOT APPLICABLE FOR DIALYSIS PATIENTS. HEMOGLOBIN AND [id number] 04:48:00 Test Item Value Reference Range Comments HEMOGLOBIN (BEAKER) (test zpkl=793) 8.7 GM/DL 13.7-17.5 HEMATOCRIT (BEAKER) (test nfwr=142) 28.7 % 40.1-51.0 Post transfusionPT/[id number] 04:46:00 Test Item Value Reference Range Comments PROTIME (BEAKER) (test szeu=138) 15.1 seconds 11.7-14.7 INR (BEAKER) (test ywzu=635) 1.2 <=5.9 PARTIAL THROMBOPLASTIN TIME (BEAKER) (test 41.4 seconds 22.5-36.0 ewdw=360) RECOMMENDED COUMADIN/WARFARIN INR THERAPY RANGESSTANDARD DOSE: 2.0 - 3.0 Includes: PROPHYLAXIS forvenous thrombosis, systemic embolization; TREATMENT for venous thrombosis and/or pulmonary embolus.HIGH RISK: Target INR is 2.5-3.5 for patients with mechanical heart valves.POCT-GLUCOSE [id number] 00:10:00 Test Item Value Reference Range Comments POC-GLUCOSE METER (BEAKER) 117 mg/dL 70-110 TESTED AT [address] (test ggiy=2586) [place] [address] POCT-GLUCOSE [id number] 17:48:00 Test Item Value Reference Range Comments POC-GLUCOSE METER (BEAKER) 129 mg/dL 70-110 TESTED AT [address] (test qrgt=7289) [place] [address] SPIN/CONCENTRATION [id number] 16:06:00 Test Item Value Reference Range Comments CONCENTRATION CHARGED (BEAKER) (test wsdp=8412) Done HEMOGLOBIN AND [id number] 12:58:00 Test Item Value Reference Range Comments HEMOGLOBIN (BEAKER) (test fcdt=041) 6.6 GM/DL 13.7-17.5 HEMATOCRIT (BEAKER) (test ycie=517) 23.6 % 40.1-51.0 POCT-GLUCOSE [id number] 12:43:00 Test Item Value Reference Range Comments POC-GLUCOSE METER (BEAKER) 217 mg/dL 70-110 TESTED AT [address] (test puoi=4097) [place] [address] BODY FLUID CULTURE + GRAM [id number] 11:41:00 Test Item Value Reference Range Comments CULTURE (BEAKER) (test xobp=6526) No growth GRAM STAIN RESULT (BEAKER) (test <1+ WBCs qsly=9366) GRAM STAIN RESULT (BEAKER) (test No organisms seen vyim=03342) POCT-GLUCOSE [id number] 08:39:00 Test Item Value Reference Range Comments POC-GLUCOSE METER (BEAKER) 133 mg/dL 70-110 TESTED AT [address] (test wyrf=9592) [place] [address] CBC W/PLT COUNT & AUTO [id number] 08:16:00 Test Item Value Reference Range Comments WHITE BLOOD CELL COUNT (BEAKER) (test xfsl=254) 23.8 K/ L 3.5-10.5 RED BLOOD CELL COUNT (BEAKER) (test ouya=461) 2.94 M/ L 4.63-6.08 HEMOGLOBIN (BEAKER) (test mpje=728) 7.2 GM/DL 13.7-17.5 HEMATOCRIT (BEAKER) (test lgme=842) 24.8 % 40.1-51.0 MEAN CORPUSCULAR VOLUME (BEAKER) (test wobz=004) 84.4 fL 79.0-92.2 MEAN CORPUSCULAR HEMOGLOBIN (BEAKER) (test 24.5 pg 25.7-32.2 qqfp=626) MEAN CORPUSCULAR HEMOGLOBIN CONC (BEAKER) (test 29.0 GM/DL 32.3-36.5 nuvj=552) RED CELL DISTRIBUTION WIDTH (BEAKER) (test 21.0 % 11.6-14.4 qmvt=736) PLATELET COUNT (BEAKER) (test vsuq=274) 216 K/CU MM 150-450 MEAN PLATELET VOLUME (BEAKER) (test roiu=997) 9.9 fL 9.4-12.4 NUCLEATED RED BLOOD CELLS (BEAKER) (test 0 /100 WBC 0-0 cqzz=702) (CELLAVISION MANUAL DIFF)2018-09-29 08:16:00 Test Item Value Reference Range Comments NEUTROPHILS - REL (CELLAVISION)(BEAKER) (test 84 % iqce=4764) LYMPHOCYTES - REL (CELLAVISION)(BEAKER) (test 4 % iuaq=8882) MONOCYTES - REL (CELLAVISION)(BEAKER) (test 5 % pgud=8896) EOSINOPHILS - REL (CELLAVISION)(BEAKER) (test 5 % iwfv=3530) MYELOCYTES - REL (CELLAVISION)(BEAKER) (test 2 % 0-0 cxsf=0323) NEUTROPHILS - ABS (CELLAVISION)(BEAKER) (test 19.99 K/ul 1.78-5.38 vfpk=7781) LYMPHOCYTES - ABS (CELLAVISION)(BEAKER) (test 0.95 K/ul 1.32-3.57 sujp=1801) MONOCYTES - ABS (CELLAVISION)(BEAKER) (test 1.19 K/uL 0.30-0.82 fojj=1405) EOSINOPHILS - ABS (CELLAVISION)(BEAKER) (test 1.19 K/uL 0.04-0.54 jlzp=2615) MYELOCYTES-ABS (CELLAVISION)(BEAKER) (test 0.48 K/uL 0.00-0.00 awah=8665) TOTAL COUNTED (BEAKER) (test wlhq=9599) 100 SMUDGE CELLS (BEAKER) (test dwvb=2203) Present GIANT PLATELETS (BEAKER) (test algl=534) Present POLYCHROMATOPHILLIC RBCS(BEAKER) (test inpu=206) 1+ few HYPOCHROMIA (BEAKER) (test xsrt=105) 2+ moderate ANISOCYTOSIS (BEAKER) (test xquu=922) 2+ moderate POIKILOCYTES (BEAKER) (test lekv=865) 1+ few OVALOCYTES (BEAKER) (test rzct=601) 1+ few TEAR DROP CELLS (BEAKER) (test iwyl=986) 1+ few ARTIFACT (CELLAVISION)(BEAKER) (test gexh=0928) Present PLATELET CONCENTRATION (CELLAVISION)(BEAKER) Adequate (test brbm=5506) Received comment: User comments: Slide comments:RAD, CHEST, 1 VIEW, NON [id number] 07:19:00Reason for exam:->chest tubeShould this be performed at the bedside?->YesFINAL REPORT Chest, one view. HISTORY: Chest tube COMPARISON: Radiograph from09/28/2018 IMPRESSION: Unchanged positioning of a left basilar pigtail pleural catheter without a definite residual pleural effusion. Unchanged positioning of a right IJ catheter. There is likely a small right pleural effusion. Unchanged mild right basilar subsegmental atelectasis. Venous congestion has decreased. The cardiac silhouette is unchanged. No pneumothorax. Signed: Wayne Pizanoort Verified Date/Time: 09/29/2018 07:19:54 Reading Location: [facility] C013Y CT Body Reading Room BASIC METABOLIC [id number] 05:42:00 Test Item Value Reference Range Comments SODIUM (BEAKER) (test 141 meq/L 136-145 akje=229) POTASSIUM (BEAKER) (test 4.0 meq/L 3.5-5.1 ncug=689) CHLORIDE (BEAKER) (test 105 meq/L 98-107 saks=613) CO2 (BEAKER) (test 27 meq/L 22-29 jrcv=238) BLOOD UREA NITROGEN 16 mg/dL 7-21 (BEAKER) (test kxac=983) CREATININE (BEAKER) (test 3.04 mg/dL 0.57-1.25 zrxg=885) GLUCOSE RANDOM (BEAKER) 105 mg/dL 70-105 (test dqyj=294) CALCIUM (BEAKER) (test 8.4 mg/dL 8.4-10.2 sibh=152) EGFR (BEAKER) (test 21 mL/min/1.73 sq m ESTIMATED GFR IS NOT lalt=4921) ACCURATE CREATININE CLEARANCE IN PREDICTING GLOMERULAR FILTRATION RATE. ESTIMATED GFR IS NOT APPLICABLE FOR DIALYSIS PATIENTS. POCT-GLUCOSE [id number] 21:50:00 Test Item Value Reference Range Comments POC-GLUCOSE METER (BEAKER) 107 mg/dL 70-110 TESTED AT [address] (test haka=2508) [place] [address] HEMOGLOBIN AND [id number] 18:47:00 Test Item Value Reference Range Comments HEMOGLOBIN (BEAKER) (test ufox=915) 7.7 GM/DL 13.7-17.5 HEMATOCRIT (BEAKER) (test ichj=091) 26.5 % 40.1-51.0 POCT-GLUCOSE [id number] 18:22:00 Test Item Value Reference Range Comments POC-GLUCOSE METER (BEAKER) 129 mg/dL 70-110 TESTED AT [address] (test vwrx=3021) [place] [id number] POCT-GLUCOSE [id number] 14:55:00 Test Item Value Reference Range Comments POC-GLUCOSE METER (BEAKER) 181 mg/dL 70-110 TESTED AT [address] (test rcbu=7199) [place] [id number] CALCIUM, [id number] 14:45:00 Test Item Value Reference Range Comments CALCIUM IONIZED (BEAKER) (test swlk=920) 1.08 mmol/L 1.12-1.27 PH, BLOOD (BEAKER) (test bcvo=9787) 7.36 FL, ANIMAL CRUELTY INVESTIGATION 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 This examination is nondiagnostic. Fluoroscopy was not performed by theundersigned, and the radiologist was not present at the time of examination. Interpretation of the images was not requested. Total fluoroscopy time: 14.4 seconds Total number of films: 2 Please refer to the referring physician's procedure report for complete detail. Signed: Shiv Reaves MDReport Verified Date/Time: 09/28/2018 13:35:42 Reading Location: [address] Reading Room CALCIUM, [id number] 12:31:00 Test Item Value Reference Range Comments CALCIUM IONIZED (BEAKER) (test wgzo=886) 1.08 mmol/L 1.12-1.27 PH, BLOOD (BEAKER) (test mfrv=3308) 7.34 POTASSIUM-STAT [id number] 12:30:00 Test Item Value Reference Range Comments POTASSIUM (BEAKER) (test tico=076) 4.5 meq/L 3.6-5.5 BLOOD GAS, [id number] 12:30:00 Test Item Value Reference Range Comments PH ARTERIAL (BEAKER) (test lszm=817) 7.36 7.35-7.45 PCO2 ARTERIAL (BEAKER) (test kmvr=829) 46 mmHg 35-45 PO2 ARTERIAL (BEAKER) (test wzza=833) 288 mmHg 80-90 O2 SATURATION ARTERIAL (BEAKER) (test wcgw=661) 99.6 % 96.0-97.0 HCO3 ARTERIAL (BEAKER) (test qvju=700) 26 mmol/L 21-29 BASE EXCESS ARTERIAL (BEAKER) (test ktvr=360) -0.2 mmol/L -2.0-3.0 PATIENT TEMPERATURE (BEAKER) (test fjjb=7609) 35.4 C FIO2 (BEAKER) (test arfi=9704) 70.0 % SODIUM NA-STAT [id number] 12:30:00 Test Item Value Reference Range Comments SODIUM (BEAKER) (test crqn=372) 134 meq/L 135-148 GLUCOSE-STAT [id number] 12:30:00 Test Item Value Reference Range Comments GLUCOSE RANDOM (BEAKER) (test npcw=111) 112 mg/dL 70-110 HGB/HCT (H&H) - STAT [id number] 12:30:00 Test Item Value Reference Range Comments HEMOGLOBIN (BEAKER) (test iieu=630) 8.5 g/dL 13.0-16.8 HEMATOCRIT (BEAKER) (test iofy=242) 25.0 % 40.0-50.0 RAD, CHEST, 1 VIEW, NON [id number] 09:44:00Reason for exam:->chest tubeShould this be performed at the bedside?->YesFINAL REPORT Comparison: 09/27/2018 TECHNIQUE: Single view of the chest FINDINGS: Mildly prominent interstitial markings bilaterally may represent vascular congestion. Small pleural effusions are seen. No gross new lung parenchymal changes. Right internal jugular dialysis catheter noted. IMPRESSION: No significant interval change. Signed: Shiv Reaves MDReport Verified Date/Time: 09:44:10 Reading Location: [address] Transitional Reading Room POCT-GLUCOSE [id number] 08:44:00 Test Item Value Reference Range Comments POC-GLUCOSE METER (BEAKER) 138 mg/dL 70-110 TESTED AT [address] (test akav=8120) [facility] [address] POCT-GLUCOSE [id number] 06:06:00 Test Item Value Reference Range Comments POC-GLUCOSE METER (BEAKER) 145 mg/dL 70-110 TESTED AT [address] (test spmq=6088) [facility] [address] VANCOMYCIN LEVEL, [id number] 04:59:00 Test Item Value Reference Range Comments VANCOMYCIN RANDOM (BEAKER) (test nzqj=631) 24.0 ug/mL Reference Range: No NormalsBASIC METABOLIC [id number] 04:57:00 Test Item Value Reference Range Comments SODIUM (BEAKER) (test 138 meq/L 136-145 tare=786) POTASSIUM (BEAKER) (test 4.4 meq/L 3.5-5.1 fazm=396) CHLORIDE (BEAKER) (test 100 meq/L 98-107 dahg=287) CO2 (BEAKER) (test 24 meq/L 22-29 sdjq=032) BLOOD UREA NITROGEN 34 mg/dL 7-21 (BEAKER) (test dqxh=467) CREATININE (BEAKER) (test 5.31 mg/dL 0.57-1.25 bqtm=827) GLUCOSE RANDOM (BEAKER) 116 mg/dL 70-105 (test bleg=052) CALCIUM (BEAKER) (test 9.1 mg/dL 8.4-10.2 esle=221) EGFR (BEAKER) (test 11 mL/min/1.73 sq m ESTIMATED GFR IS NOT hmqo=9713) ACCURATE CREATININE CLEARANCE IN PREDICTING GLOMERULAR FILTRATION RATE. ESTIMATED GFR IS NOT APPLICABLE FOR DIALYSIS PATIENTS. CBC W/PLT COUNT & AUTO [id number] 04:56:00 Test Item Value Reference Range Comments WHITE BLOOD CELL COUNT (BEAKER) (test itcj=222) 26.0 K/ L 3.5-10.5 RED BLOOD CELL COUNT (BEAKER) (test kkwr=644) 3.93 M/ L 4.63-6.08 HEMOGLOBIN (BEAKER) (test mdzd=163) 9.5 GM/DL 13.7-17.5 HEMATOCRIT (BEAKER) (test bawi=523) 32.5 % 40.1-51.0 MEAN CORPUSCULAR VOLUME (BEAKER) (test caic=238) 82.7 fL 79.0-92.2 MEAN CORPUSCULAR HEMOGLOBIN (BEAKER) (test 24.2 pg 25.7-32.2 jqmk=760) MEAN CORPUSCULAR HEMOGLOBIN CONC (BEAKER) (test 29.2 GM/DL 32.3-36.5 mhfa=832) RED CELL DISTRIBUTION WIDTH (BEAKER) (test 20.6 % 11.6-14.4 pkby=236) PLATELET COUNT (BEAKER) (test wbvo=166) 285 K/CU MM 150-450 MEAN PLATELET VOLUME (BEAKER) (test jigf=772) 10.0 fL 9.4-12.4 NUCLEATED RED BLOOD CELLS (BEAKER) (test 0 /100 WBC 0-0 hpzu=476) NEUTROPHILS RELATIVE PERCENT (BEAKER) (test 87 % riuj=023) LYMPHOCYTES RELATIVE PERCENT (BEAKER) (test 2 % lncp=316) MONOCYTES RELATIVE PERCENT (BEAKER) (test 6 % bkon=852) EOSINOPHILS RELATIVE PERCENT (BEAKER) (test 3 % ufjl=355) BASOPHILS RELATIVE PERCENT (BEAKER) (test 1 % owes=385) NEUTROPHILS ABSOLUTE COUNT (BEAKER) (test 22.63 K/ L 1.78-5.38 htrg=518) LYMPHOCYTES ABSOLUTE COUNT (BEAKER) (test 0.60 K/ L 1.32-3.57 khht=328) MONOCYTES ABSOLUTE COUNT (BEAKER) (test 1.60 K/ L 0.30-0.82 lear=766) EOSINOPHILS ABSOLUTE COUNT (BEAKER) (test 0.66 K/ L 0.04-0.54 nrzv=021) BASOPHILS ABSOLUTE COUNT (BEAKER) (test 0.12 K/ L 0.01-0.08 qjft=543) IMMATURE GRANULOCYTES-RELATIVE PERCENT (BEAKER) 1 % 0-1 (test lprt=9137) PT/[id number] 04:51:00 Test Item Value Reference Range Comments PROTIME (BEAKER) (test ohkk=605) 14.8 seconds 11.7-14.7 INR (BEAKER) (test pzyg=670) 1.2 <=5.9 PARTIAL THROMBOPLASTIN TIME (BEAKER) (test 43.9 seconds 22.5-36.0 vqlu=995) RECOMMENDED COUMADIN/WARFARIN INR THERAPY RANGESSTANDARD DOSE: 2.0 - 3.0 Includes: PROPHYLAXIS forvenous thrombosis, systemic embolization; TREATMENT for venous thrombosis and/or pulmonary embolus.HIGH RISK: Target INR is 2.5-3.5 for patients with mechanical heart valves.PROTHROMBIN [id number] 04:49: 00 Test Item Value Reference Range Comments PROTIME (BEAKER) (test bjua=506) 14.8 seconds 11.7-14.7 INR (BEAKER) (test dmrk=058) 1.2 <=5.9 RECOMMENDED COUMADIN/WARFARIN INR THERAPY RANGESSTANDARD DOSE: 2.0 - 3.0 Includes: PROPHYLAXIS forvenous thrombosis, systemic embolization; TREATMENT for venous thrombosis and/or pulmonary embolus.HIGH RISK: Target INR is 2.5-3.5 for patients with mechanical heart valves.POCT-GLUCOSE [id number] 20:58:00 Test Item Value Reference Range Comments POC-GLUCOSE METER (ALMA) 147 mg/dL 70-110 TESTED AT [facility] [address] (test zoqg=6858) [facility] [address] CT, CHEST, WITHOUT [id number] 19:32:00Evaluate pleural effusion, s/p chest tube placementFINAL REPORT History: Pleural effusion. TECHNIQUE: Helical CT of the chest was performed without contrast utilizing multiple windows, sagittal and coronal reformations. This examwas performed according to our departmental dose optimization program which includes automated exposure control, adjustment of the mA and/or KV according to the patient's size and/or use of iterative reconstruction technique. FINDINGS : Comparison is made with the patient's prior CT chest performed April 07, 2016. Chest CT: Moderate atherosclerotic calcification of the aorta, coronary arteries and great vessels is seen. A tunneled right internal jugular dialysis catheter is present, its tip terminatesnear the cavoatrial junction. Scattered small nonpathologic-appearing mediastinal [...] irregular nodule is identified along the posterior pleuralmargin in the left lower lobe is not seen partially obscured. A small left-sided pneumothorax is present despite the presence of a small caliber left chest tube entering the chest from a left posterolateral approach. Images obtained through the upper abdomen demonstrate a moderate sized fluid filled hiatal hernia. A moderately dilated gallbladder is also seen. IMPRESSION: 1. Abqju-lx-cjpxnvpa bilateral pleural effusions and probable bilateral lower [...] evaluation if indicated clinically. Signed: Yosvany Alvarez Verified Date/Time: 2017 19:32:24 Reading Location: [facility] Diagnostic Imaging Reading Room - [place] [address] POCT -GLUCOSE [id number] 17:44:00 Test Item Value Reference Range Comments POC-GLUCOSE METER (BEAKER) 149 mg/dL 70-110 TESTED AT [place] [id number] [facility] (test gusa=3631) [facility] [address] POCT-GLUCOSE [id number] 12:07:00 Test Item Value Reference Range Comments POC-GLUCOSE METER (BEAKER) 132 mg/dL 70-110 TESTED AT [address] (test dohc=0774) [facility] [address] CBC W/PLT COUNT & AUTO [id number] 11:18:00 Test Item Value Reference Range Comments WHITE BLOOD CELL COUNT (BEAKER) (test cddc=626) 31.6 K/ L 3.5-10.5 RED BLOOD CELL COUNT (BEAKER) (test gump=229) 4.06 M/ L 4.63-6.08 HEMOGLOBIN (BEAKER) (test rmpu=633) 9.8 GM/DL 13.7-17.5 HEMATOCRIT (BEAKER) (test aqfv=376) 33.6 % 40.1-51.0 MEAN CORPUSCULAR VOLUME (BEAKER) (test adzj=792) 82.8 fL 79.0-92.2 MEAN CORPUSCULAR HEMOGLOBIN (BEAKER) (test 24.1 pg 25.7-32.2 oykf=594) MEAN CORPUSCULAR HEMOGLOBIN CONC (BEAKER) (test 29.2 GM/DL 32.3-36.5 mypa=051) RED CELL DISTRIBUTION WIDTH (BEAKER) (test 21.0 % 11.6-14.4 dhup=438) PLATELET COUNT (BEAKER) (test puos=620) 277 K/CU MM 150-450 MEAN PLATELET VOLUME (BEAKER) (test kunq=138) 9.6 fL 9.4-12.4 NUCLEATED RED BLOOD CELLS (BEAKER) (test 0 /100 WBC 0-0 gksh=623) (CELLAVISION MANUAL DIFF)2018-09-27 11:18:00 Test Item Value Reference Range Comments NEUTROPHILS - REL (CELLAVISION)(BEAKER) (test 91 % rvci=9823) LYMPHOCYTES - REL (CELLAVISION)(BEAKER) (test 2 % snsm=0054) MONOCYTES - REL (CELLAVISION)(BEAKER) (test 4 % sgtz=2902) EOSINOPHILS - REL (CELLAVISION)(BEAKER) (test 2 % xpia=9694) ATYPICAL LYMPHOCYTES - REL (CELLAVISION)(BEAKER) 1 % 0-0 (test wtdm=4679) NEUTROPHILS - ABS (CELLAVISION)(BEAKER) (test 28.76 K/ul 1.78-5.38 jwkc=8430) LYMPHOCYTES - ABS (CELLAVISION)(BEAKER) (test 0.63 K/ul 1.32-3.57 qyza=6572) MONOCYTES - ABS (CELLAVISION)(BEAKER) (test 1.26 K/uL 0.30-0.82 vkgl=2332) EOSINOPHILS - ABS (CELLAVISION)(BEAKER) (test 0.63 K/uL 0.04-0.54 giyx=9082) ATYPICAL LYMPHOCYTES - ABS (CELLAVISION)(BEAKER) 0.32 K/uL 0.00-0.00 (test ptfp=7270) TOTAL COUNTED (BEAKER) (test rqkr=3032) 100 WBC MORPHOLOGY (BEAKER) (test iale=414) Normal PLT MORPHOLOGY (BEAKER) (test iisc=821) Normal POLYCHROMATOPHILLIC RBCS(BEAKER) (test vrus=703) 2+ moderate HYPOCHROMIA (BEAKER) (test ctcn=320) 1+ few ARTIFACT (CELLAVISION)(BEAKER) (test emoi=4933) Present PLATELET CONCENTRATION (CELLAVISION)(BEAKER) Adequate (test dpzg=5281) Received comment: User comments: Slide comments:RAD, CHEST, 1 VIEW, NON [id number] 10:49:00Reason for exam:->chest tubeShould this be performed at the bedside?->YesFINAL REPORT Chest one view. Clinical history: chest tube Comparison: 09/26/2018 Discussion: A frontal chest is provided. Cardiomediastinal contours are unchanged. Lines and tubes are in stable position. There is vascular congestion and interstitial edema, similar to the prior exam. Small bilateral pleural effusions. No pneumothorax. Signed: Daryl Fincheport Verified Date/Time: 09/27/2018 10:49:43 Reading Location: [facility] Reading Room PTH, [id number] 06:24:00 Test Item Value Reference Range Comments PARATHYROID HORMONE INTACT (BEAKER) (test 45.8 pg/mL 8.5-72.5 vjah=335) CALCIUM, [id number] 06:23:00 Test Item Value Reference Range Comments CALCIUM IONIZED (BEAKER) (test yefo=661) 1.05 mmol/L 1.12-1.27 PH, BLOOD (BEAKER) (test feen=6800) 7.45 LACTATE DEHYDROGENASE (LDH)2018-09-27 06:03:00 Test Item Value Reference Range Comments LACTATE DEHYDROGENASE (BEAKER) 387 U/L 125-220 Specimen slightly hemolyzed (test wmca=658) BASIC METABOLIC [id number] 05:55:00 Test Item Value Reference Range Comments SODIUM (BEAKER) (test 137 meq/L 136-145 qifz=947) POTASSIUM (BEAKER) (test 4.3 meq/L 3.5-5.1 Specimen slightly rruw=841) hemolyzed CHLORIDE (BEAKER) (test 103 meq/L 98-107 qgmo=744) CO2 (BEAKER) (test 22 meq/L 22-29 qgjq=441) BLOOD UREA NITROGEN 23 mg/dL 7-21 (BEAKER) (test gbhd=015) CREATININE (BEAKER) (test 4.06 mg/dL 0.57-1.25 Specimen slightly fiqn=206) hemolyzed GLUCOSE RANDOM (BEAKER) 91 mg/dL 70-105 (test lmyb=039) CALCIUM (BEAKER) (test 9.0 mg/dL 8.4-10.2 zllv=686) EGFR (BEAKER) (test 15 mL/min/1.73 sq m ESTIMATED GFR IS NOT bfds=2565) ACCURATE CREATININE CLEARANCE IN PREDICTING GLOMERULAR FILTRATION RATE. ESTIMATED GFR IS NOT APPLICABLE FOR DIALYSIS PATIENTS. [id number] 05:50:00 Test Item Value Reference Range Comments MAGNESIUM (BEAKER) (test 1.9 mg/dL 1.6-2.6 Specimen slightly hemolyzed nxmi=257) [id number] 05:50:00 Test Item Value Reference Range Comments PHOSPHORUS (BEAKER) (test 4.1 mg/dL 2.3-4.7 Specimen slightly hemolyzed tgqw=404) POCT-GLUCOSE [id number] 22:21:00 Test Item Value Reference Range Comments POC-GLUCOSE METER (BEAKER) 119 mg/dL 70-110 TESTED AT [facility] [address] [facility] (test ujdg=9976) [facility] [address] [id number] 20:54:00 Test Item Value Reference Range Comments PARTIAL THROMBOPLASTIN TIME (BEAKER) (test 40.7 seconds 22.5-36.0 qjkj=638) BODY FLUID CELL COUNT WITH [id number] 20:19:00 Test Item Value Reference Range Comments APPEARANCE FLUID (BEAKER) (test dvzi=962) Slightly Hazy Clear COLOR FLUID (BEAKER) (test mdbl=125) Yellow Colorless, Straw RBC FLUID (BEAKER) (test mssk=495) 150 /cu mm <=1 ADJUSTED WBC FLUID (BEAKER) (test jehx=2582) 375 /cu mm <=5 LINING CELLS (BEAKER) (test nrks=6164) 7 /cu mm <=1 NEUTROPHILS FLUID (BEAKER) (test rruz=5181) 41 % LYMPHS FLUID (BEAKER) (test twsr=016) 7 % MONO/MACROPHAGE FLUID (BEAKER) (test 29 % wsup=532) EOSINOPHILS FLUID (BEAKER) (test hynz=929) 22 % BASO FLUID (BEAKER) (test krto=496) 1 % CONTAINER BODY FLUID (BEAKER) (test EDTA Tube zloo=7867) HEPATITIS B SURFACE [id number] 19:12:00 Test Item Value Reference Range Comments HEPATITIS B SURFACE ANTIGEN (2) (BEAKER) (test Nonreactive Nonreactive xnuz=1654) PH, BODY [id number] 17:00:00 Test Item Value Reference Range Comments PH, BODY FLUID (BEAKER) (test xrlp=6649) 7.87 LACTATE DEHYDROGENASE (LDH), BODY [id number] 16:48:00 Test Item Value Reference Range Comments LACTATE DEHYDROGENASE FLUID (BEAKER) 111 U/L Light's criteria identifies (test cagj=345) effusions if one or more are pre Absence of reference range indicates that normals have not been defined.Assay performance has not been validated for this type of specimen.PROTEIN, BODY [id number] 16:48:00 Test Item Value Reference Range Comments PROTEIN FLUID (BEAKER) (test 2.1 g/dL Light's criteria identifies fyjr=382) effusions if one or more are pre Absence of reference range indicates that normals have not been defined.Assay performance has not been validated for this type of specimen.TRIGLYCERIDES, BODY [id number] 16:48:00 Test Item Value Reference Range Comments TRIGLYCERIDES FLUID (BEAKER) (test lrkv=806) 19 mg/dL Reference Range: No Normals Assay performance has not been validated for this type of specimen.CT, SPINE, LUMBAR, WO [id number] 16:24:00FINAL REPORT CT Lumbar spine CLINICAL HISTORY: lumbar soft tissue fluid collection TECHNIQUE: Contiguous noncontrast axial images of the lumbar spine with coronal and sagittal reformations to assess the alignment. This exam was performed according to the departmental dose optimization program which includes automated exposure control, adjustment of the mA and/or kV according tothe patient size, and/or use of an iterative reconstruction technique. COMPARISON: Reference abdominal CT 12/14/2016 FINDINGS: Bilateral posterior spinal geraldo and pedicle screw fusion of L4-L5 is again seen with bilateral sacroiliac anchoring screws. However, the left-sided L4 and L5 screws have loosened and significantly backed out of the vertebral bodies by approximately 1.5 cm to 2 cm. The right-sided pedicle screws have not significantly changed in position. The left sacroiliac joint appears to demonstrate interval widening compared to the right sacroiliac joint, possibly related to stress from the hardware changes. A fracture through the S1 vertebral body with anterior displacement into the presacral soft tissues is again seen with osseous fragmentation and heterotopic bone formation. However,the bones remain grossly similar in appearance, without obvious interval resorption. The iliopsoas muscles are symmetrical appearing, allowing for metallic streak effect. No obvious fluid collections are seen, although the lack of intravenous contrast limits evaluation. There is a new fluid collectionin the posterior paraspinous soft tissues extending from L1 through the sacrum and measuring up to 6cm AP x 10 cm TV x 14 cm CC. IMPRESSION: Since 11/24/2016, the left L4 and L5 pedicle screws demonstrate new loosening and significant backtracking out of the vertebral body. New asymmetric widening of the left sacroiliac joint is likely secondary to stress on the joint due to hardware failure. Clinicalcorrelation is requested. New posterior paraspinous fluid collection, the sterility of which cannot be assessed on the basis of imaging. Clinical correlation is requested. Signed: Roosevelt Magana Verified Date/Time: 09/26/2018 16:24: 43 Reading Location: [address] Neuro Reading Room CT, BRAIN, WITHOUT [id number] 14:19:00Slurred speech snd decreased level of consciousnessFINAL REPORT CT head without contrast 09/26/2018 2:17 [...] hydrocephalus. There is no hemorrhage, mass, or midlineshift. There is a prominent cisterna magna or arachnoid cyst without remarkable mass effect overlying the posterior left cerebellar hemisphere. There is mild microvascular ischemia in the supratentorial white matter. There is atherosclerotic calcification of the intracranial arterial vasculature. There is generalized parenchymal volume loss. The visualized paranasal sinuses and mastoid air cells arewell aerated. The skull is intact. IMPRESSION: No intracranial hemorrhage or mass effect. Chronic appearing findings, stable when compared to . If concern for acute pathology persists, furtherevaluation with MRI is recommended. Signed: Seipel, Avi MDReport Verified Date/Time: 201714:19:09 Reading Location: [facility] Reading Room RAD, CHEST , 1 VIEW, NON [id number] 13:56:00Reason for exam:->left chest tubeShould this be performed at the bedside?->YesFINAL REPORT AP chest, two images HISTORY: Left chest tube COMPARISON: 12/13/2016 IMPRESSION: Left basilar thoracostomy tube. Left basilar atelectasis. Small left basilar pneumothorax versus trapped lung. Recommend attention on follow-up. Dialysis catheter present. Cardiomegaly. Mild interstitial edema. Signed: April Pozoort Verified Date/Time: 09/26/2018 13:56:22 Reading Location: [facility] Reading Room C-REACTIVE [id number] 03:33:00 Test Item Value Reference Range Comments C-REACTIVE PROTEIN (BEAKER) (test guav=578) 15.68 mg/dL 0.00-0.50 QC are ok. BASIC METABOLIC [id number] 03:32:00 Test Item Value Reference Range Comments SODIUM (BEAKER) (test 135 meq/L 136-145 pgqx=385) POTASSIUM (BEAKER) (test 4.8 meq/L 3.5-5.1 cytf=608) CHLORIDE (BEAKER) (test 100 meq/L 98-107 oxni=932) CO2 (BEAKER) (test 21 meq/L 22-29 hsjy=552) BLOOD UREA NITROGEN 46 mg/dL 7-21 (BEAKER) (test dtqk=934) CREATININE (BEAKER) (test 6.42 mg/dL 0.57-1.25 bkdm=562) GLUCOSE RANDOM (BEAKER) 130 mg/dL 70-105 (test kcvg=434) CALCIUM (BEAKER) (test 9.3 mg/dL 8.4-10.2 ygtu=713) EGFR (BEAKER) (test 9 mL/min/1.73 sq m ESTIMATED GFR IS NOT jbgs=9941) ACCURATE CREATININE CLEARANCE IN PREDICTING GLOMERULAR FILTRATION RATE. ESTIMATED GFR IS NOT APPLICABLE FOR DIALYSIS PATIENTS. [id number] 03:27:00 Test Item Value Reference Range Comments PHOSPHORUS (BEAKER) (test brmu=266) 5.9 mg/dL 2.3-4.7 HEPATIC FUNCTION [id number] 03:27:00 Test Item Value Reference Range Comments TOTAL PROTEIN (BEAKER) (test edjs=525) 6.6 gm/dL 6.0-8.3 ALBUMIN (BEAKER) (test xefz=8097) 3.1 g/dL 3.5-5.0 BILIRUBIN TOTAL (BEAKER) (test ucys=690) 0.5 mg/dL 0.2-1.2 BILIRUBIN DIRECT (BEAKER) (test ddqk=674) 0.2 mg/dL 0.1-0.5 ALKALINE PHOSPHATASE (BEAKER) (test darg=402) 102 U/L 40-150 AST (SGOT) (BEAKER) (test fhpj=000) 9 U/L 5-34 ALT (SGPT) (BEAKER) (test jvbf=435) 8 U/L 6-55 VANCOMYCIN LEVEL, [id number] 03:25:00 Test Item Value Reference Range Comments VANCOMYCIN RANDOM (BEAKER) (test aijy=760) 21.2 ug/mL Reference Range: No NormalsLACTIC ACID, VENOUS, WHOLE [id number] 03:20:00 Test Item Value Reference Range Comments LACTATE BLOOD VENOUS (2) 0.7 mmol/L 0.5-2.2 Specimen slightly hemolyzed (BEAKER) (test dvgs=2157) PROTHROMBIN [id number] 03:14:00 Test Item Value Reference Range Comments PROTIME (BEAKER) (test uora=331) 15.6 seconds 11.7-14.7 INR (BEAKER) (test hkkb=908) 1.2 <=5.9 RECOMMENDED COUMADIN/WARFARIN INR THERAPY RANGESSTANDARD DOSE: 2.0 - 3.0 Includes: PROPHYLAXIS forvenous thrombosis, systemic embolization; TREATMENT for venous thrombosis and/or pulmonary embolus.HIGH RISK: Target INR is 2.5-3.5 for patients with mechanical heart valves.CBC W/PLT COUNT & AUTO [id number] 03:11:00 Test Item Value Reference Range Comments WHITE BLOOD CELL COUNT (BEAKER) (test zsxn=182) 28.3 K/ L 3.5-10.5 RED BLOOD CELL COUNT (BEAKER) (test bgst=324) 4.25 M/ L 4.63-6.08 HEMOGLOBIN (BEAKER) (test tflw=612) 10.5 GM/DL 13.7-17.5 HEMATOCRIT (BEAKER) (test jpvk=688) 35.0 % 40.1-51.0 MEAN CORPUSCULAR VOLUME (BEAKER) (test qvxw=747) 82.4 fL 79.0-92.2 MEAN CORPUSCULAR HEMOGLOBIN (BEAKER) (test 24.7 pg 25.7-32.2 bqot=234) MEAN CORPUSCULAR HEMOGLOBIN CONC (BEAKER) (test 30.0 GM/DL 32.3-36.5 ktyu=527) RED CELL DISTRIBUTION WIDTH (BEAKER) (test 20.6 % 11.6-14.4 knot=118) PLATELET COUNT (BEAKER) (test symd=692) 310 K/CU MM 150-450 MEAN PLATELET VOLUME (BEAKER) (test hwee=680) 10.3 fL 9.4-12.4 NUCLEATED RED BLOOD CELLS (BEAKER) (test 0 /100 WBC 0-0 dsdf=517) NEUTROPHILS RELATIVE PERCENT (BEAKER) (test 85 % tece=588) LYMPHOCYTES RELATIVE PERCENT (BEAKER) (test 3 % bdik=481) MONOCYTES RELATIVE PERCENT (BEAKER) (test 7 % piae=870) EOSINOPHILS RELATIVE PERCENT (BEAKER) (test 2 % sjam=552) BASOPHILS RELATIVE PERCENT (BEAKER) (test 1 % vbjb=283) NEUTROPHILS ABSOLUTE COUNT (BEAKER) (test 24.08 K/ L 1.78-5.38 iicr=365) LYMPHOCYTES ABSOLUTE COUNT (BEAKER) (test 0.77 K/ L 1.32-3.57 gioo=032) MONOCYTES ABSOLUTE COUNT (BEAKER) (test 1.94 K/ L 0.30-0.82 uyic=557) EOSINOPHILS ABSOLUTE COUNT (BEAKER) (test 0.64 K/ L 0.04-0.54 ytds=334) BASOPHILS ABSOLUTE COUNT (BEAKER) (test 0.16 K/ L 0.01-0.08 jclr=699) IMMATURE GRANULOCYTES-RELATIVE PERCENT (BEAKER) 3 % 0-1 (test oftm=6754) POCT-GLUCOSE [id number] 20:54:00 Test Item Value Reference Range Comments POC-GLUCOSE METER (BEAKER) 174 mg/dL 70-110 TESTED AT [facility] [address] (test eeoi=0405) [facility] [address] METHYLMALONIC [id number] 07:36:00 Test Item Value Reference Range Comments METHYLMALONIC ACID, SERUM (test amki=123279) 603 nmol/L 0-378 PERFORMED AT: [facility] [id number] BOG CUTTER: Donnie Youssef MD PHONE: [phone], [id number] 06:50:00To start 15mins after 1st cultureSpecimen: BloodCollected: 2016 01:33 Status: Final Last Updated: 06/21/2017 06:49 (1) To start 15mins after 1st culture Culture Result (Final) (Final) No Growth After 5 DaysCULTURE, [id number] 06:50:00Specimen: BloodCollected: 06/16/2017 01: 20 Status: Final Last Updated: 06/21/2017 06:49 Culture Result (Final) ( Final) No Growth After 5 [id number] 09:05:00 Test Item Value Reference Range Comments [...] mL/min/1.73m\\S\\2 EGFR if Non- 17 Estimated Glomerular Fijian (test mL/min/1.73m\\S\\2 Filtration Rate (eGFR) code=EGFRNA) Reference [...] of chronic kidney failure. CBC WITH AUTO [id number] 08:50:00 Test Item Value Reference Range Comments [...] code=IG%) 0.7 % 0.0-0.4 CBC WITH AUTO [id number] 01:49:00 Test Item Value Reference Range Comments [...] code=IG%) 0.9 % 0.0-0.4 CBC WITH AUTO [id number] 20:08:00 Test Item Value Reference Range Comments [...] code=IG%) 0.7 % 0.0-0.4 CBC WITH AUTO [id number] 13:58:00 Test Item Value Reference Range Comments [...] 1.0-3.0 IG% (test code=IG%) 0.7 % 0.0-0.4 [id number] 09:14:00 Test Item Value Reference Range Comments [...] mL/min/1.73m\\S\\2 EGFR if Non- 16 Estimated Glomerular Fijian (test mL/min/1.73m\\S\\2 Filtration Rate (eGFR) code=EGFRNA) Reference [...] of chronic kidney failure. CBC WITH AUTO [id number] 09:05:00 Test Item Value Reference Range Comments [...] code=IG%) 0.7 % 0.0-0.4 CBC WITH AUTO [id number] 02:17:00 Test Item Value Reference Range Comments [...] code=IG%) 0.7 % 0.0-0.4 CBC WITH AUTO [id number] 20:02:00 Test Item Value Reference Range Comments [...] code=IG%) 0.8 % 0.0-0.4 CBC WITH AUTO [id number] 14:17:00 Test Item Value Reference Range Comments [...] 1.0-3.0 IG% (test code=IG%) 0.9 % 0.0-0.4 [id number] 08:47:00 Test Item Value Reference Range Comments Magnesium (test code=MG) 1.9 mg/dl 1.6-2.3 [id number] 08:47:00 Test Item Value Reference Range Comments [...] mL/min/1.73m\\S\\2 EGFR if Non- 17 Estimated Glomerular Fijian (test mL/min/1.73m\\S\\2 Filtration Rate (eGFR) code=EGFRNA) Reference [...] of chronic kidney failure. CBC WITH AUTO [id number] 08:22:00 Test Item Value Reference Range Comments [...] code=IG%) 0.8 % 0.0-0.4 CBC WITH AUTO [id number] 03:42:00 Test Item Value Reference Range Comments [...] on ############### was changed to 1 by [id number] on 06/17/2017 03:42 Neutrophils (test 68 % 42-75 The value no value code=NEUTR) originally released by on ############### was changed to 68 by [id number] on 06/17/2017 03:42 Lymphocytes (test 16 % 13-42 The value no value code=LYMPH) originally released by on ############### was changed to 16 by [id number] on 06/17/2017 03:42 Monocytes (test 11 % 4-14 The value no value code=MONOS) originally released by on ############### was changed to 11 by [id number] on 06/17/2017 03:42 Eosinophils (test 3 % 1-3 The value no value code=EOS) originally released by on ############### was changed to 3 by [id number] on 06/17/2017 03:42 Basophils (test 1 % 0-1 The value no value code=BASO) originally released by on ############### was changed to 1 by [id number] on 06/17/2017 03:42 RBC Morphology (test Anisocytosis The value no value code=RBCMOR) Hypochromic originally released by on ############### was changed to Anisocytosis Hypochromic by [id number] on 06/17/2017 03:42 Platelet Morphology Giant platelets The value no value (test code=PLTMORPH) originally released by on ############### was changed to Giant platelets by [id number] on 06/17/2017 03:42 CBC WITH AUTO [id number] 19:54:00 Test Item Value Reference Range Comments [...] code=IG%) 0.8 % 0.0-0.4 CBC WITH AUTO [id number] 14:30:00 Test Item Value Reference Range Comments [...] code=IG%) 1.0 % 0.0-0.4 CBC WITH AUTO [id number] 07:35:00 Test Item Value Reference Range Comments [...] code=IG%) 1.2 % 0.0-0.4 HEP B SURFACE [id number] 07:14:00 Test Item Value Reference Range Comments [...] code=HBSAG) Negative (qualifier Negative value) TYPE & [id number] 04:15:00 Test Item Value Reference Range Comments ABO Blood Type (test code=ABO) O Rh (test code=RH) Positive Antibody Screen (test code=ABSCR) Negative Negative ARMBAND# (test code=ARMBAND) [id number] PRO-BNP(B-Type Natriuretic Peptide)2017-06-16 03:42:00 Test Item Value Reference Range Comments Pro-BNP(B-Peptide) 53840 pg/ml 0-125 THE METHODOLOGY FOR DETECTION OF [...] TIBC (test code=TIBC) 161 ug/dl 178-500 B12, [id number] 03:32:00 Test Item Value Reference Range Comments B12 (test code=B12) 717 pg/ml 239-941 [id number] 03:32:00 Test Item Value Reference Range Comments Folic Acid (test code=FOLIC) 5.35 ng/ml 2.76-20.00 IRON [id number] 03:32:00 Test Item Value Reference Range Comments Iron (test code=FETOT) 33 ug/dl 20-149 TIBC (test code=TIBC) 161 ug/dl 178-500 Iron Saturation (test code=FESAT) 20 % 16-62 [id number] 03:05:00 Test Item Value Reference Range Comments [...] (test code=BGCTHB) 9.6 gm/dl 11.5-17.4 O2Hb (test code=FLOV4XA) 94.7 % 95.0-99.0 COHb (test code=BGFCOHB) <2.8 [...] Time (test code=BGCTM) 03:03 [facility] ([facility] R Brachial Sample Type (test code=BGSAMPLETYPE) Arterial Allens Test (test code=BGALLEN) Acceptable Notified By (test code=BGNOTIFIEDBY) LUCY GAMBLE Notified Whom (test code=BGNOTIFIEDWHOM) RN Date Notified (test code=BGDTNOTIFIED) 06/16/2017 Time Notified (test code=BGTMNOTIFIED) 03:03 O2 Device (test code=MBA5WMR2) ROOM AIR Instrument ID (test code=BGINSTRID) [id number] Reported By (test code=BGREPORTEDBY) LUCY GAMBLE GLYCOSALATED [id number] 02:39:00 Test Item Value Reference Range Comments Hemoglobin A1C (test 5.78 % 4.3-6.0 code=GLYCO) Mean Plasma Glucose (test 128 mg/dl 90-180 WHEN TEST RESULTS FOR A1C code=MPG) EXCEED 14.0, THE LINEAR LIMIT OF THE INSTRUMENT, THE CALCULATED RESULT FOR THE MEAN GLUCOSE IS NOT RELIABLE. CORONARY [id number] 02:22:00 Test Item Value Reference Range Comments [...] vLDL (test code=VLDL) 16 mg/dl 30-60 VANCOMYCIN, [id number] 02:19:00 Test Item Value Reference Range Comments Vancomycin, Trough (test 7.7 ug/ml 15.0-20.0 05/13/2009 Change in Therapeutic code=VANCT) Range, for Trough Level, has been implemented per P&T committee. INTERPRETATION GUIDE: CONSIDER SENSITIVITY REPORT IF NGUYEN IS=1 THERAPEUTIC RANGE IS 15-20 ug/ml IF NGUYEN IS > OR=2 CONSIDER ALTERNATE THERAPY [id number] 02:05:00 Test Item Value Reference Range Comments [...] mL/min/1.73m\\S\\2 EGFR if Non- 23 Estimated Glomerular Fijian (test mL/min/1.73m\\S\\2 Filtration Rate (eGFR) code=EGFRNA) Reference Intervals Decision Points for 18 years and older and average body mass: >=60 Does not exclude kidney disease. 30 - 59 Suggests moderate chronic kidney disease and indicates the need for further investigation including assessment of proteinuria and cardiovascular factors. < 30 Usually indicates a need for referral for assessment and management of chronic kidney failure. [id number] 02:05:00 Test Item Value Reference Range Comments Magnesium (test code=MG) 1.9 mg/dl 1.6-2.3 CBC WITH AUTO [id number] 02:03:00 Test Item Value Reference Range Comments [...] code=IG%) 0.9 % 0.0-0.4 AFB CULTURE + [id number] 12:29:00 Test Item Value Reference Range Comments CULTURE (BEAKER) (test No acid-fast bacilli isolated wdjc=7587) in 42 days AFB SMEAR (BEAKER) (test No acid fast bacilli seen azgt=995) AFB CULTURE + [id number] 12:28:00 Test Item Value Reference Range Comments CULTURE (BEAKER) (test No acid-fast bacilli isolated wpyj=3928) in 42 days AFB SMEAR (BEAKER) (test No acid fast bacilli seen yoyk=495) FUNGUS CULTURE + [id number] 17:13:00 Test Item Value Reference Range Comments CULTURE (BEAKER) (test No fungus isolated in 28 days cppx=9951) FUNGUS SMEAR (BEAKER) (test No fungi seen hgtz=0926) FUNGUS CULTURE + [id number] 17:13:00 Test Item Value Reference Range Comments CULTURE (BEAKER) (test No fungus isolated in 28 days ylfz=6734) FUNGUS SMEAR (BEAKER) (test No fungi seen ysbo=8349) FUNGUS CULTURE + [id number] 21:46:00 Test Item Value Reference Range Comments CULTURE (BEAKER) (test No fungus isolated in 28 days ijhk=8858) FUNGUS SMEAR (BEAKER) (test No fungi seen yybu=3315) POCT-GLUCOSE [id number] 17:22:00 Test Item Value Reference Range Comments POC-GLUCOSE METER (BEAKER) 169 mg/dL 70-110 TESTED AT [address] (test rzkb=3984) [place] [id number] POCT-GLUCOSE [id number] 12:13:00 Test Item Value Reference Range Comments POC-GLUCOSE METER (BEAKER) 165 mg/dL 70-110 TESTED AT [address] (test jkps=0823) [place] [id number] POCT-GLUCOSE [id number] 07:48:00 Test Item Value Reference Range Comments POC-GLUCOSE METER (BEAKER) 132 mg/dL 70-110 TESTED AT [address] (test gxgt=0722) [place] [id number] BASIC METABOLIC [id number] 07:26:00 Test Item Value Reference Range Comments SODIUM (BEAKER) (test 133 meq/L 136-145 idbm=811) POTASSIUM (BEAKER) (test 4.2 meq/L 3.5-5.1 kxhu=426) CHLORIDE (BEAKER) (test 101 meq/L 98-107 fcpn=934) CO2 (BEAKER) (test 22 meq/L 22-29 hsxe=885) BLOOD UREA NITROGEN 38 mg/dL 7-21 (BEAKER) (test jtwa=880) CREATININE (BEAKER) (test 4.01 mg/dL 0.57-1.25 weca=536) GLUCOSE RANDOM (BEAKER) 110 mg/dL 70-105 (test uuqm=277) CALCIUM (BEAKER) (test 8.7 mg/dL 8.4-10.2 ecmw=940) EGFR (BEAKER) (test 15 mL/min/1.73 sq m ESTIMATED GFR IS NOT edhh=1169) ACCURATE CREATININE CLEARANCE IN PREDICTING GLOMERULAR FILTRATION RATE. ESTIMATED GFR IS NOT APPLICABLE FOR DIALYSIS PATIENTS. [id number] 07:25:00 Test Item Value Reference Range Comments PHOSPHORUS (BEAKER) (test eovu=193) 4.4 mg/dL 2.3-4.7 [id number] 07:25:00 Test Item Value Reference Range Comments MAGNESIUM (BEAKER) (test hryt=048) 1.9 mg/dL 1.6-2.6 CBC W/PLT COUNT & AUTO [id number] 06:54:00 Test Item Value Reference Range Comments WHITE BLOOD CELL COUNT (BEAKER) (test iqqw=354) 12.6 K/ L 4.0-10.0 RED BLOOD CELL COUNT (BEAKER) (test qipm=481) 2.78 M/ L 4.20-5.80 HEMOGLOBIN (BEAKER) (test nmak=458) 8.3 GM/DL 13.0-16.8 HEMATOCRIT (BEAKER) (test glyv=277) 25.1 % 40.0-50.0 MEAN CORPUSCULAR VOLUME (BEAKER) (test mcqk=723) 90.3 fL 82.0-98.0 MEAN CORPUSCULAR HEMOGLOBIN (BEAKER) (test 29.8 pg 27.0-33.0 ojlv=957) MEAN CORPUSCULAR HEMOGLOBIN CONC (BEAKER) (test 33.1 GM/DL 32.0-36.0 ywvl=731) RED CELL DISTRIBUTION WIDTH (BEAKER) (test 16.1 % 10.3-14.2 rjwd=178) PLATELET COUNT (BEAKER) (test tuyd=567) 290 K/CU MM 150-430 MEAN PLATELET VOLUME (BEAKER) (test biuf=164) 7.2 fL 6.5-10.5 NUCLEATED RED BLOOD CELLS (BEAKER) (test 0 /100 WBC 0-0 rkcd=253) NEUTROPHILS RELATIVE PERCENT (BEAKER) (test 74 % uluj=105) LYMPHOCYTES RELATIVE PERCENT (BEAKER) (test 15 % uiev=229) MONOCYTES RELATIVE PERCENT (BEAKER) (test 9 % turb=560) EOSINOPHILS RELATIVE PERCENT (BEAKER) (test 2 % avft=570) BASOPHILS RELATIVE PERCENT (BEAKER) (test 0 % lchu=286) NEUTROPHILS ABSOLUTE COUNT (BEAKER) (test 9.30 K/ L 1.80-8.00 qzix=249) LYMPHOCYTES ABSOLUTE COUNT (BEAKER) (test 1.89 K/ L 1.48-4.50 qfhh=671) MONOCYTES ABSOLUTE COUNT (BEAKER) (test 1.14 K/ L 0.00-1.30 kzth=798) EOSINOPHILS ABSOLUTE COUNT (BEAKER) (test 0.26 K/ L 0.00-0.50 ondz=973) BASOPHILS ABSOLUTE COUNT (BEAKER) (test 0.05 K/ L 0.00-0.20 hxph=345) 0.00POCT-GLUCOSE [id number] 22:31:00 Test Item Value Reference Range Comments POC-GLUCOSE METER (BEAKER) 133 mg/dL 70-110 TESTED AT [address] (test fcpv=6841) [facility] [address] POCT-GLUCOSE [id number] 17:17:00 Test Item Value Reference Range Comments POC-GLUCOSE METER (BEAKER) 119 mg/dL 70-110 TESTED AT [address] (test jfmz=2423) [facility] [address] POCT-GLUCOSE [id number] 11:43:00 Test Item Value Reference Range Comments POC-GLUCOSE METER (BEAKER) 175 mg/dL 70-110 TESTED AT [address] (test mpcw=9983) [facility] [address] CBC W/PLT COUNT & AUTO [id number] 08:39:00 Test Item Value Reference Range Comments WHITE BLOOD CELL COUNT (BEAKER) (test achr=484) 13.4 K/ L 4.0-10.0 RED BLOOD CELL COUNT (BEAKER) (test yhom=866) 2.91 M/ L 4.20-5.80 HEMOGLOBIN (BEAKER) (test rqpo=692) 8.6 GM/DL 13.0-16.8 HEMATOCRIT (BEAKER) (test rmml=188) 26.5 % 40.0-50.0 MEAN CORPUSCULAR VOLUME (BEAKER) (test anii=139) 91.1 fL 82.0-98.0 MEAN CORPUSCULAR HEMOGLOBIN (BEAKER) (test 29.4 pg 27.0-33.0 sxlb=850) MEAN CORPUSCULAR HEMOGLOBIN CONC (BEAKER) (test 32.3 GM/DL 32.0-36.0 gbmq=419) RED CELL DISTRIBUTION WIDTH (BEAKER) (test 16.0 % 10.3-14.2 rzmn=974) PLATELET COUNT (BEAKER) (test gtvm=880) 282 K/CU MM 150-430 MEAN PLATELET VOLUME (BEAKER) (test vulc=152) 7.7 fL 6.5-10.5 NUCLEATED RED BLOOD CELLS (BEAKER) (test 0 /100 WBC 0-0 fson=077) NEUTROPHILS RELATIVE PERCENT (BEAKER) (test 72 % qqel=864) LYMPHOCYTES RELATIVE PERCENT (BEAKER) (test 16 % cbcf=512) MONOCYTES RELATIVE PERCENT (BEAKER) (test 10 % fakx=081) EOSINOPHILS RELATIVE PERCENT (BEAKER) (test 2 % nagz=302) BASOPHILS RELATIVE PERCENT (BEAKER) (test 1 % agrf=500) NEUTROPHILS ABSOLUTE COUNT (BEAKER) (test 9.63 K/ L 1.80-8.00 gvng=764) LYMPHOCYTES ABSOLUTE COUNT (BEAKER) (test 2.15 K/ L 1.48-4.50 qtxx=542) MONOCYTES ABSOLUTE COUNT (BEAKER) (test 1.32 K/ L 0.00-1.30 azee=876) EOSINOPHILS ABSOLUTE COUNT (BEAKER) (test 0.23 K/ L 0.00-0.50 zsym=564) BASOPHILS ABSOLUTE COUNT (BEAKER) (test 0.10 K/ L 0.00-0.20 szxn=013) 0.000.730.001.460.000.000.000.000.000.000.000.000.000.000.000.00(MANUAL DIFFERENTIAL)2016-12-24 08:39:00 Test Item Value Reference Range Comments TOTAL COUNTED (BEAKER) (test zpia=5691) POCT-GLUCOSE [id number] 07:47:00 Test Item Value Reference Range Comments POC-GLUCOSE METER (BEAKER) 139 mg/dL 70-110 TESTED AT [facility] [address] [facility] (test vzke=8427) [facility] [address] BASIC METABOLIC [id number] 06:50:00 Test Item Value Reference Range Comments SODIUM (BEAKER) (test 133 meq/L 136-145 telt=358) POTASSIUM (BEAKER) (test 4.2 meq/L 3.5-5.1 jddz=728) CHLORIDE (BEAKER) (test 102 meq/L 98-107 srcu=101) CO2 (BEAKER) (test 21 meq/L 22-29 ehed=960) BLOOD UREA NITROGEN 27 mg/dL 7-21 (BEAKER) (test uktc=800) CREATININE (BEAKER) (test 3.13 mg/dL 0.57-1.25 qzdb=837) GLUCOSE RANDOM (BEAKER) 100 mg/dL 70-105 (test tmsd=387) CALCIUM (BEAKER) (test 8.8 mg/dL 8.4-10.2 gbpq=829) EGFR (BEAKER) (test 21 mL/min/1.73 sq m ESTIMATED GFR IS NOT wkhj=9252) ACCURATE CREATININE CLEARANCE IN PREDICTING GLOMERULAR FILTRATION RATE. ESTIMATED GFR IS NOT APPLICABLE FOR DIALYSIS PATIENTS. [id number] 06:41:00 Test Item Value Reference Range Comments PHOSPHORUS (BEAKER) (test uewo=285) 2.9 mg/dL 2.3-4.7 [id number] 06:41:00 Test Item Value Reference Range Comments MAGNESIUM (BEAKER) (test oxln=328) 1.7 mg/dL 1.6-2.6 POCT-GLUCOSE [id number] 21:52:00 Test Item Value Reference Range Comments POC-GLUCOSE METER (BEAKER) 97 mg/dL 70-110 TESTED AT [address] (test pjfx=9454) [place] [id number] POCT-GLUCOSE [id number] 17:28:00 Test Item Value Reference Range Comments POC-GLUCOSE METER (BEAKER) 105 mg/dL 70-110 TESTED AT [address] (test jxdm=0480) [place] [id number] POCT-GLUCOSE [id number] 12:31:00 Test Item Value Reference Range Comments POC-GLUCOSE METER (BEAKER) 215 mg/dL 70-110 TESTED AT [address] (test pflq=3778) [place] [id number] POCT-GLUCOSE [id number] 08:19:00 Test Item Value Reference Range Comments POC-GLUCOSE METER (BEAKER) 135 mg/dL 70-110 TESTED AT [address] (test lsbv=4064) [place] [id number] CBC W/PLT COUNT & AUTO [id number] 07:19:00 Test Item Value Reference Range Comments WHITE BLOOD CELL COUNT (BEAKER) (test okhy=442) 15.0 K/ L 4.0-10.0 RED BLOOD CELL COUNT (BEAKER) (test tysp=426) 3.04 M/ L 4.20-5.80 HEMOGLOBIN (BEAKER) (test wouu=286) 8.8 GM/DL 13.0-16.8 HEMATOCRIT (BEAKER) (test velc=438) 27.3 % 40.0-50.0 MEAN CORPUSCULAR VOLUME (BEAKER) (test bdfy=371) 89.8 fL 82.0-98.0 MEAN CORPUSCULAR HEMOGLOBIN (BEAKER) (test 29.0 pg 27.0-33.0 nkcw=276) MEAN CORPUSCULAR HEMOGLOBIN CONC (BEAKER) (test 32.3 GM/DL 32.0-36.0 ofha=179) RED CELL DISTRIBUTION WIDTH (BEAKER) (test 17.0 % 10.3-14.2 wegk=980) PLATELET COUNT (BEAKER) (test fudj=106) 285 K/CU MM 150-430 MEAN PLATELET VOLUME (BEAKER) (test uien=525) 7.2 fL 6.5-10.5 NUCLEATED RED BLOOD CELLS (BEAKER) (test 0 /100 WBC 0-0 vtri=596) NEUTROPHILS RELATIVE PERCENT (BEAKER) (test 77 % dpgs=627) LYMPHOCYTES RELATIVE PERCENT (BEAKER) (test 11 % ylyp=387) MONOCYTES RELATIVE PERCENT (BEAKER) (test 11 % jjrq=039) EOSINOPHILS RELATIVE PERCENT (BEAKER) (test 1 % hjhg=388) BASOPHILS RELATIVE PERCENT (BEAKER) (test 0 % axkq=729) NEUTROPHILS ABSOLUTE COUNT (BEAKER) (test 11.50 K/ L 1.80-8.00 ivld=583) LYMPHOCYTES ABSOLUTE COUNT (BEAKER) (test 1.72 K/ L 1.48-4.50 pjrt=260) MONOCYTES ABSOLUTE COUNT (BEAKER) (test 1.59 K/ L 0.00-1.30 lxbo=820) EOSINOPHILS ABSOLUTE COUNT (BEAKER) (test 0.17 K/ L 0.00-0.50 rjbl=748) BASOPHILS ABSOLUTE COUNT (BEAKER) (test 0.05 K/ L 0.00-0.20 fzrv=133) [id number] 06:41:00 Test Item Value Reference Range Comments PHOSPHORUS (BEAKER) (test umht=227) 2.1 mg/dL 2.3-4.7 [id number] 06:41:00 Test Item Value Reference Range Comments MAGNESIUM (BEAKER) (test brca=569) 1.8 mg/dL 1.6-2.6 BASIC METABOLIC [id number] 06:41:00 Test Item Value Reference Range Comments SODIUM (BEAKER) (test 134 meq/L 136-145 kceg=246) POTASSIUM (BEAKER) (test 4.2 meq/L 3.5-5.1 qnhg=344) CHLORIDE (BEAKER) (test 103 meq/L 98-107 lrpa=300) CO2 (BEAKER) (test 23 meq/L 22-29 ixup=083) BLOOD UREA NITROGEN 18 mg/dL 7-21 (BEAKER) (test odgl=999) CREATININE (BEAKER) (test 2.20 mg/dL 0.57-1.25 totu=478) GLUCOSE RANDOM (BEAKER) 105 mg/dL 70-105 (test yena=581) CALCIUM (BEAKER) (test 8.5 mg/dL 8.4-10.2 rkde=616) EGFR (BEAKER) (test 31 mL/min/1.73 sq m ESTIMATED GFR IS NOT mdks=4914) ACCURATE CREATININE CLEARANCE IN PREDICTING GLOMERULAR FILTRATION RATE. ESTIMATED GFR IS NOT APPLICABLE FOR DIALYSIS PATIENTS. POCT-GLUCOSE [id number] 21:43:00 Test Item Value Reference Range Comments POC-GLUCOSE METER (BEAKER) 278 mg/dL 70-110 TESTED AT [address] (test duwh=5751) [place] [address] POCT-GLUCOSE [id number] 18:42:00 Test Item Value Reference Range Comments POC-GLUCOSE METER (BEAKER) 177 mg/dL 70-110 TESTED AT [address] (test mapq=2515) [place] [address] POCT-GLUCOSE [id number] 14:53:00 Test Item Value Reference Range Comments POC-GLUCOSE METER (BEAKER) 197 mg/dL 70-110 TESTED AT [address] (test eypj=2957) [place] [address] CBC W/PLT COUNT & AUTO [id number] 12:20:00 Test Item Value Reference Range Comments WHITE BLOOD CELL COUNT (BEAKER) (test vhua=932) 13.6 K/ L 4.0-10.0 RED BLOOD CELL COUNT (BEAKER) (test zbnf=836) 2.85 M/ L 4.20-5.80 HEMOGLOBIN (BEAKER) (test snci=266) 8.3 GM/DL 13.0-16.8 HEMATOCRIT (BEAKER) (test yleh=668) 25.8 % 40.0-50.0 MEAN CORPUSCULAR VOLUME (BEAKER) (test ztej=791) 90.6 fL 82.0-98.0 MEAN CORPUSCULAR HEMOGLOBIN (BEAKER) (test 29.3 pg 27.0-33.0 rxvq=923) MEAN CORPUSCULAR HEMOGLOBIN CONC (BEAKER) (test 32.3 GM/DL 32.0-36.0 udbd=866) RED CELL DISTRIBUTION WIDTH (BEAKER) (test 16.7 % 10.3-14.2 tbgi=923) PLATELET COUNT (BEAKER) (test ihdh=678) 252 K/CU MM 150-430 MEAN PLATELET VOLUME (BEAKER) (test mcpd=660) 7.4 fL 6.5-10.5 NUCLEATED RED BLOOD CELLS (BEAKER) (test 0 /100 WBC 0-0 leyh=880) NEUTROPHILS RELATIVE PERCENT (BEAKER) (test 75 % ckvq=719) LYMPHOCYTES RELATIVE PERCENT (BEAKER) (test 13 % sokt=127) MONOCYTES RELATIVE PERCENT (BEAKER) (test 10 % ivpw=633) EOSINOPHILS RELATIVE PERCENT (BEAKER) (test 2 % nrzv=352) BASOPHILS RELATIVE PERCENT (BEAKER) (test 0 % tbyk=240) NEUTROPHILS ABSOLUTE COUNT (BEAKER) (test 10.20 K/ L 1.80-8.00 pokr=290) LYMPHOCYTES ABSOLUTE COUNT (BEAKER) (test 1.78 K/ L 1.48-4.50 buyv=212) MONOCYTES ABSOLUTE COUNT (BEAKER) (test 1.32 K/ L 0.00-1.30 xigt=360) EOSINOPHILS ABSOLUTE COUNT (BEAKER) (test 0.22 K/ L 0.00-0.50 nwfv=065) BASOPHILS ABSOLUTE COUNT (BEAKER) (test 0.06 K/ L 0.00-0.20 hbbz=183) 0.00POCT-GLUCOSE [id number] 08:28:00 Test Item Value Reference Range Comments POC-GLUCOSE METER (BEAKER) 132 mg/dL 70-110 TESTED AT [facility] [address] [facility] (test cvty=9384) [facility] [address] BASIC METABOLIC [id number] 07:26:00 Test Item Value Reference Range Comments SODIUM (BEAKER) (test 131 meq/L 136-145 zdpc=779) POTASSIUM (BEAKER) (test 4.2 meq/L 3.5-5.1 fzrp=110) CHLORIDE (BEAKER) (test 98 meq/L 98-107 xuuy=506) CO2 (BEAKER) (test 24 meq/L 22-29 xzom=818) BLOOD UREA NITROGEN 25 mg/dL 7-21 (BEAKER) (test zhyk=941) CREATININE (BEAKER) (test 3.02 mg/dL 0.57-1.25 ulgs=690) GLUCOSE RANDOM (BEAKER) 103 mg/dL 70-105 (test amnp=512) CALCIUM (BEAKER) (test 8.1 mg/dL 8.4-10.2 xagw=753) EGFR (BEAKER) (test 21 mL/min/1.73 sq m ESTIMATED GFR IS NOT adqy=2917) ACCURATE CREATININE CLEARANCE IN PREDICTING GLOMERULAR FILTRATION RATE. ESTIMATED GFR IS NOT APPLICABLE FOR DIALYSIS PATIENTS. [id number] 07:17:00 Test Item Value Reference Range Comments PHOSPHORUS (BEAKER) (test elwo=766) 3.1 mg/dL 2.3-4.7 [id number] 07:17:00 Test Item Value Reference Range Comments MAGNESIUM (BEAKER) (test gjdv=281) 1.8 mg/dL 1.6-2.6 CALCIUM, [id number] 05:38:00 Test Item Value Reference Range Comments CALCIUM IONIZED (BEAKER) (test xaan=464) 1.09 mmol/L 1.12-1.27 PH, BLOOD (BEAKER) (test lmoy=2819) 7.45 POCT-GLUCOSE [id number] 21:45:00 Test Item Value Reference Range Comments POC-GLUCOSE METER (BEAKER) 121 mg/dL 70-110 TESTED AT [facility] [address] [facility] (test flnd=6430) [facility] [address] POCT-GLUCOSE [id number] 16:48:00 Test Item Value Reference Range Comments POC-GLUCOSE METER (BEAKER) 157 mg/dL 70-110 TESTED AT [address] (test preq=8007) [facility] [address] POCT-GLUCOSE [id number] 12:16:00 Test Item Value Reference Range Comments POC-GLUCOSE METER (BEAKER) 247 mg/dL 70-110 TESTED AT [address] (test msrd=7094) [facility] [address] POCT-GLUCOSE [id number] 08:14:00 Test Item Value Reference Range Comments POC-GLUCOSE METER (BEAKER) 166 mg/dL 70-110 TESTED AT [address] (test vfpu=0827) [facility] [address] BASIC METABOLIC [id number] 07:58:00 Test Item Value Reference Range Comments SODIUM (BEAKER) (test 131 meq/L 136-145 oyzf=825) POTASSIUM (BEAKER) (test 3.9 meq/L 3.5-5.1 szhs=459) CHLORIDE (BEAKER) (test 99 meq/L 98-107 ossc=387) CO2 (BEAKER) (test 26 meq/L 22-29 klgv=615) BLOOD UREA NITROGEN 18 mg/dL 7-21 (BEAKER) (test frte=627) CREATININE (BEAKER) (test 2.32 mg/dL 0.57-1.25 yupi=880) GLUCOSE RANDOM (BEAKER) 145 mg/dL 70-105 (test dqeu=136) CALCIUM (BEAKER) (test 8.1 mg/dL 8.4-10.2 qutp=434) EGFR (BEAKER) (test 29 mL/min/1.73 sq m ESTIMATED GFR IS NOT fsaa=0680) ACCURATE CREATININE CLEARANCE IN PREDICTING GLOMERULAR FILTRATION RATE. ESTIMATED GFR IS NOT APPLICABLE FOR DIALYSIS PATIENTS. CBC W/PLT COUNT & AUTO [id number] 07:50:00 Test Item Value Reference Range Comments WHITE BLOOD CELL COUNT (BEAKER) (test dwqy=745) 15.3 K/ L 4.0-10.0 RED BLOOD CELL COUNT (BEAKER) (test yfeb=930) 3.00 M/ L 4.20-5.80 HEMOGLOBIN (BEAKER) (test yefp=713) 8.4 GM/DL 13.0-16.8 HEMATOCRIT (BEAKER) (test omof=161) 27.3 % 40.0-50.0 MEAN CORPUSCULAR VOLUME (BEAKER) (test bkuj=035) 90.9 fL 82.0-98.0 MEAN CORPUSCULAR HEMOGLOBIN (BEAKER) (test 28.0 pg 27.0-33.0 sxam=309) MEAN CORPUSCULAR HEMOGLOBIN CONC (BEAKER) (test 30.8 GM/DL 32.0-36.0 qgmg=149) RED CELL DISTRIBUTION WIDTH (BEAKER) (test 15.9 % 10.3-14.2 rlor=371) PLATELET COUNT (BEAKER) (test mgfg=025) 271 K/CU MM 150-430 MEAN PLATELET VOLUME (BEAKER) (test aeqo=745) 7.4 fL 6.5-10.5 NUCLEATED RED BLOOD CELLS (BEAKER) (test 0 /100 WBC 0-0 oiyh=544) NEUTROPHILS RELATIVE PERCENT (BEAKER) (test 76 % gmnt=175) LYMPHOCYTES RELATIVE PERCENT (BEAKER) (test 14 % bugc=500) MONOCYTES RELATIVE PERCENT (BEAKER) (test 9 % taxw=518) EOSINOPHILS RELATIVE PERCENT (BEAKER) (test 1 % wlpc=069) BASOPHILS RELATIVE PERCENT (BEAKER) (test 0 % hhzz=596) NEUTROPHILS ABSOLUTE COUNT (BEAKER) (test 11.60 K/ L 1.80-8.00 rpbq=630) LYMPHOCYTES ABSOLUTE COUNT (BEAKER) (test 2.11 K/ L 1.48-4.50 oaei=758) MONOCYTES ABSOLUTE COUNT (BEAKER) (test 1.36 K/ L 0.00-1.30 xqpb=207) EOSINOPHILS ABSOLUTE COUNT (BEAKER) (test 0.17 K/ L 0.00-0.50 rkan=906) BASOPHILS ABSOLUTE COUNT (BEAKER) (test 0.06 K/ L 0.00-0.20 hptm=851) [id number] 07:24:00 Test Item Value Reference Range Comments PHOSPHORUS (BEAKER) (test yvtz=788) 2.1 mg/dL 2.3-4.7 [id number] 07:24:00 Test Item Value Reference Range Comments MAGNESIUM (BEAKER) (test mgaz=522) 1.6 mg/dL 1.6-2.6 POCT-GLUCOSE [id number] 20:38:00 Test Item Value Reference Range Comments POC-GLUCOSE METER (BEAKER) 191 mg/dL 70-110 TESTED AT [address] (test oupc=4249) [place] [id number] POCT-GLUCOSE [id number] 17:32:00 Test Item Value Reference Range Comments POC-GLUCOSE METER (BEAKER) 229 mg/dL 70-110 TESTED AT [address] (test jekr=4264) [place] [address] VANCOMYCIN LEVEL, [id number] 16:51:00 Test Item Value Reference Range Comments VANCOMYCIN TROUGH (BEAKER) (test spae=070) 17.2 ug/mL 10.0-20.0 At end of dialysis on 12/20/16POCT-GLUCOSE [id number] 11:49:00 Test Item Value Reference Range Comments POC-GLUCOSE METER (BEAKER) 97 mg/dL 70-110 TESTED AT [address] (test lcuh=1647) [place] [id number] POCT-GLUCOSE [id number] 07:38:00 Test Item Value Reference Range Comments POC-GLUCOSE METER (BEAKER) 151 mg/dL 70-110 TESTED AT [address] (test fpqy=2061) [place] [id number] BASIC METABOLIC [id number] 06:39:00 Test Item Value Reference Range Comments SODIUM (BEAKER) (test 134 meq/L 136-145 pyrs=914) POTASSIUM (BEAKER) (test 3.9 meq/L 3.5-5.1 xksl=716) CHLORIDE (BEAKER) (test 102 meq/L 98-107 ojxi=600) CO2 (BEAKER) (test 24 meq/L 22-29 ewpc=171) BLOOD UREA NITROGEN 23 mg/dL 7-21 (BEAKER) (test ixjx=285) CREATININE (BEAKER) (test 2.91 mg/dL 0.57-1.25 qjmw=535) GLUCOSE RANDOM (BEAKER) 99 mg/dL 70-105 (test chyl=076) CALCIUM (BEAKER) (test 8.2 mg/dL 8.4-10.2 zpkn=822) EGFR (BEAKER) (test 22 mL/min/1.73 sq m ESTIMATED GFR IS NOT thlc=6508) ACCURATE CREATININE CLEARANCE IN PREDICTING GLOMERULAR FILTRATION RATE. ESTIMATED GFR IS NOT APPLICABLE FOR DIALYSIS PATIENTS. [id number] 06:37:00 Test Item Value Reference Range Comments PHOSPHORUS (BEAKER) (test cjan=645) 2.9 mg/dL 2.3-4.7 [id number] 06:37:00 Test Item Value Reference Range Comments MAGNESIUM (BEAKER) (test hqtr=774) 1.6 mg/dL 1.6-2.6 CBC W/PLT COUNT & AUTO [id number] 06:36:00 Test Item Value Reference Range Comments WHITE BLOOD CELL COUNT (BEAKER) (test odgi=722) 14.1 K/ L 4.0-10.0 RED BLOOD CELL COUNT (BEAKER) (test vvtn=200) 3.01 M/ L 4.20-5.80 HEMOGLOBIN (BEAKER) (test ctir=165) 8.7 GM/DL 13.0-16.8 HEMATOCRIT (BEAKER) (test xawa=337) 26.8 % 40.0-50.0 MEAN CORPUSCULAR VOLUME (BEAKER) (test yjnh=214) 88.9 fL 82.0-98.0 MEAN CORPUSCULAR HEMOGLOBIN (BEAKER) (test 28.8 pg 27.0-33.0 hdzi=913) MEAN CORPUSCULAR HEMOGLOBIN CONC (BEAKER) (test 32.5 GM/DL 32.0-36.0 oqvl=877) RED CELL DISTRIBUTION WIDTH (BEAKER) (test 16.3 % 10.3-14.2 zksz=736) PLATELET COUNT (BEAKER) (test pkmv=971) 242 K/CU MM 150-430 MEAN PLATELET VOLUME (BEAKER) (test ewtl=410) 6.9 fL 6.5-10.5 NUCLEATED RED BLOOD CELLS (BEAKER) (test 0 /100 WBC 0-0 lxnb=504) NEUTROPHILS RELATIVE PERCENT (BEAKER) (test 73 % godm=222) LYMPHOCYTES RELATIVE PERCENT (BEAKER) (test 15 % uzfx=777) MONOCYTES RELATIVE PERCENT (BEAKER) (test 9 % lilf=174) EOSINOPHILS RELATIVE PERCENT (BEAKER) (test 2 % cxzp=803) BASOPHILS RELATIVE PERCENT (BEAKER) (test 0 % tmoz=983) NEUTROPHILS ABSOLUTE COUNT (BEAKER) (test 10.30 K/ L 1.80-8.00 dtcn=930) LYMPHOCYTES ABSOLUTE COUNT (BEAKER) (test 2.14 K/ L 1.48-4.50 rrct=831) MONOCYTES ABSOLUTE COUNT (BEAKER) (test 1.33 K/ L 0.00-1.30 ekkq=759) EOSINOPHILS ABSOLUTE COUNT (BEAKER) (test 0.29 K/ L 0.00-0.50 cwwa=666) BASOPHILS ABSOLUTE COUNT (BEAKER) (test 0.06 K/ L 0.00-0.20 qygu=001) 0.00CALCIUM, [id number] 06:24:00 Test Item Value Reference Range Comments CALCIUM IONIZED (BEAKER) (test tzdu=391) 1.08 mmol/L 1.12-1.27 PH, BLOOD (BEAKER) (test yvsx=9513) 7.46 POCT-GLUCOSE [id number] 22:24:00 Test Item Value Reference Range Comments POC-GLUCOSE METER (BEAKER) 166 mg/dL 70-110 TESTED AT [address] (test sndx=2353) [place] [id number] POCT-GLUCOSE [id number] 16:17:00 Test Item Value Reference Range Comments POC-GLUCOSE METER (BEAKER) 132 mg/dL 70-110 TESTED AT [address] (test sgqk=8942) [facility] [address] POCT-GLUCOSE [id number] 12:16:00 Test Item Value Reference Range Comments POC-GLUCOSE METER (BEAKER) 90 mg/dL 70-110 TESTED AT [address] (test zxfg=9275) [place] [id number] POCT-GLUCOSE [id number] 08:13:00 Test Item Value Reference Range Comments POC-GLUCOSE METER (BEAKER) 111 mg/dL 70-110 TESTED AT [address] (test gdhg=5253) [place] [id number] CBC W/PLT COUNT & AUTO [id number] 07:40:00 Test Item Value Reference Range Comments WHITE BLOOD CELL COUNT (BEAKER) (test stdn=251) 11.9 K/ L 4.0-10.0 RED BLOOD CELL COUNT (BEAKER) (test laco=598) 3.11 M/ L 4.20-5.80 HEMOGLOBIN (BEAKER) (test chfy=650) 8.9 GM/DL 13.0-16.8 HEMATOCRIT (BEAKER) (test nxhn=238) 28.0 % 40.0-50.0 MEAN CORPUSCULAR VOLUME (BEAKER) (test aoeo=846) 90.3 fL 82.0-98.0 MEAN CORPUSCULAR HEMOGLOBIN (BEAKER) (test 28.7 pg 27.0-33.0 ctow=718) MEAN CORPUSCULAR HEMOGLOBIN CONC (BEAKER) (test 31.8 GM/DL 32.0-36.0 qipw=097) RED CELL DISTRIBUTION WIDTH (BEAKER) (test 15.5 % 10.3-14.2 hmnf=431) PLATELET COUNT (BEAKER) (test eavs=376) 252 K/CU MM 150-430 MEAN PLATELET VOLUME (BEAKER) (test xsob=184) 7.1 fL 6.5-10.5 NUCLEATED RED BLOOD CELLS (BEAKER) (test 0 /100 WBC 0-0 riyn=102) NEUTROPHILS RELATIVE PERCENT (BEAKER) (test 69 % ywso=178) LYMPHOCYTES RELATIVE PERCENT (BEAKER) (test 18 % jpfz=094) MONOCYTES RELATIVE PERCENT (BEAKER) (test 11 % hxdx=569) EOSINOPHILS RELATIVE PERCENT (BEAKER) (test 2 % dvlc=185) BASOPHILS RELATIVE PERCENT (BEAKER) (test 0 % hjjp=173) NEUTROPHILS ABSOLUTE COUNT (BEAKER) (test 8.27 K/ L 1.80-8.00 fubx=423) LYMPHOCYTES ABSOLUTE COUNT (BEAKER) (test 2.09 K/ L 1.48-4.50 oqvt=704) MONOCYTES ABSOLUTE COUNT (BEAKER) (test 1.35 K/ L 0.00-1.30 witw=174) EOSINOPHILS ABSOLUTE COUNT (BEAKER) (test 0.19 K/ L 0.00-0.50 wwfa=745) BASOPHILS ABSOLUTE COUNT (BEAKER) (test 0.04 K/ L 0.00-0.20 zrvj=121) [id number] 07:29:00 Test Item Value Reference Range Comments PHOSPHORUS (BEAKER) (test ietp=642) 1.8 mg/dL 2.3-4.7 [id number] 07:29:00 Test Item Value Reference Range Comments MAGNESIUM (BEAKER) (test ajzn=168) 1.6 mg/dL 1.6-2.6 BASIC METABOLIC [id number] 07:29:00 Test Item Value Reference Range Comments SODIUM (BEAKER) (test 135 meq/L 136-145 dnea=931) POTASSIUM (BEAKER) (test 3.7 meq/L 3.5-5.1 exyx=246) CHLORIDE (BEAKER) (test 104 meq/L 98-107 fmzp=157) CO2 (BEAKER) (test 24 meq/L 22-29 pikg=053) BLOOD UREA NITROGEN 12 mg/dL 7-21 (BEAKER) (test fqge=799) CREATININE (BEAKER) (test 2.00 mg/dL 0.57-1.25 rmxf=625) GLUCOSE RANDOM (BEAKER) 81 mg/dL 70-105 (test yqfc=126) CALCIUM (BEAKER) (test 8.2 mg/dL 8.4-10.2 nvny=864) EGFR (BEAKER) (test 34 mL/min/1.73 sq m ESTIMATED GFR IS NOT uxio=0117) ACCURATE CREATININE CLEARANCE IN PREDICTING GLOMERULAR FILTRATION RATE. ESTIMATED GFR IS NOT APPLICABLE FOR DIALYSIS PATIENTS. POCT-GLUCOSE [id number] 21:13:00 Test Item Value Reference Range Comments POC-GLUCOSE METER (BEAKER) 107 mg/dL 70-110 TESTED AT [address] (test shwt=6687) [place] [address] POCT-GLUCOSE [id number] 17:33:00 Test Item Value Reference Range Comments POC-GLUCOSE METER (BEAKER) 131 mg/dL 70-110 TESTED AT [address] (test pvhn=2007) [place] [address] POCT-GLUCOSE [id number] 13:05:00 Test Item Value Reference Range Comments POC-GLUCOSE METER (BEAKER) 188 mg/dL 70-110 TESTED AT [address] (test abbb=2060) [place] [address] POCT-GLUCOSE [id number] 09:01:00 Test Item Value Reference Range Comments POC-GLUCOSE METER (BEAKER) 103 mg/dL 70-110 TESTED AT [address] (test jwgk=0191) [place] [address] CBC W/PLT COUNT & AUTO [id number] 07:08:00 Test Item Value Reference Range Comments WHITE BLOOD CELL COUNT (BEAKER) (test hgea=929) 12.7 K/ L 4.0-10.0 RED BLOOD CELL COUNT (BEAKER) (test ktjn=635) 3.09 M/ L 4.20-5.80 HEMOGLOBIN (BEAKER) (test uuyc=927) 9.0 GM/DL 13.0-16.8 HEMATOCRIT (BEAKER) (test pzev=628) 27.4 % 40.0-50.0 MEAN CORPUSCULAR VOLUME (BEAKER) (test twry=679) 88.8 fL 82.0-98.0 MEAN CORPUSCULAR HEMOGLOBIN (BEAKER) (test 29.0 pg 27.0-33.0 nyoi=553) MEAN CORPUSCULAR HEMOGLOBIN CONC (BEAKER) (test 32.7 GM/DL 32.0-36.0 gxpr=699) RED CELL DISTRIBUTION WIDTH (BEAKER) (test 15.7 % 10.3-14.2 rnyv=782) PLATELET COUNT (BEAKER) (test qlgu=467) 257 K/CU MM 150-430 MEAN PLATELET VOLUME (BEAKER) (test vcli=438) 7.0 fL 6.5-10.5 NUCLEATED RED BLOOD CELLS (BEAKER) (test 0 /100 WBC 0-0 soya=932) NEUTROPHILS RELATIVE PERCENT (BEAKER) (test 74 % gglu=916) LYMPHOCYTES RELATIVE PERCENT (BEAKER) (test 14 % gulx=194) MONOCYTES RELATIVE PERCENT (BEAKER) (test 9 % kazh=410) EOSINOPHILS RELATIVE PERCENT (BEAKER) (test 2 % rmvg=441) BASOPHILS RELATIVE PERCENT (BEAKER) (test 0 % tsxp=137) NEUTROPHILS ABSOLUTE COUNT (BEAKER) (test 9.38 K/ L 1.80-8.00 hcrv=431) LYMPHOCYTES ABSOLUTE COUNT (BEAKER) (test 1.80 K/ L 1.48-4.50 enho=487) MONOCYTES ABSOLUTE COUNT (BEAKER) (test 1.20 K/ L 0.00-1.30 dyaw=294) EOSINOPHILS ABSOLUTE COUNT (BEAKER) (test 0.24 K/ L 0.00-0.50 paqo=904) BASOPHILS ABSOLUTE COUNT (BEAKER) (test 0.05 K/ L 0.00-0.20 fait=793) [id number] 06:17:00 Test Item Value Reference Range Comments PHOSPHORUS (BEAKER) (test tten=098) 2.4 mg/dL 2.3-4.7 [id number] 06:17:00 Test Item Value Reference Range Comments MAGNESIUM (BEAKER) (test igyc=868) 1.5 mg/dL 1.6-2.6 BASIC METABOLIC [id number] 06:17:00 Test Item Value Reference Range Comments SODIUM (BEAKER) (test 135 meq/L 136-145 tdha=880) POTASSIUM (BEAKER) (test 3.7 meq/L 3.5-5.1 fhum=812) CHLORIDE (BEAKER) (test 104 meq/L 98-107 mvxj=337) CO2 (BEAKER) (test 23 meq/L 22-29 fsiu=534) BLOOD UREA NITROGEN 24 mg/dL 7-21 (BEAKER) (test olcj=656) CREATININE (BEAKER) (test 2.70 mg/dL 0.57-1.25 oyzc=156) GLUCOSE RANDOM (BEAKER) 93 mg/dL 70-105 (test rgco=780) CALCIUM (BEAKER) (test 8.4 mg/dL 8.4-10.2 ineb=134) EGFR (BEAKER) (test 24 mL/min/1.73 sq m ESTIMATED GFR IS NOT svlm=0639) ACCURATE CREATININE CLEARANCE IN PREDICTING GLOMERULAR FILTRATION RATE. ESTIMATED GFR IS NOT APPLICABLE FOR DIALYSIS PATIENTS. POCT-GLUCOSE [id number] 23:43:00 Test Item Value Reference Range Comments POC-GLUCOSE METER (BEAKER) 100 mg/dL 70-110 TESTED AT [address] (test yztq=9676) [facility] [address] POCT-GLUCOSE [id number] 17:44:00 Test Item Value Reference Range Comments POC-GLUCOSE METER (BEAKER) 208 mg/dL 70-110 TESTED AT [place] [id number] [facility] (test pagt=0147) [facility] [address] ANAEROBIC [id number] 14:43:00 Test Item Value Reference Range Comments CULTURE (BEAKER) (test csms=9150) No anaerobes isolated ANAEROBIC [id number] 14:42:00 Test Item Value Reference Range Comments CULTURE (BEAKER) (test wner=7732) No anaerobes isolated POCT-GLUCOSE [id number] 12:02:00 Test Item Value Reference Range Comments POC-GLUCOSE METER (BEAKER) 208 mg/dL 70-110 TESTED AT [facility] [address] [facility] (test upye=3974) [facility] [address] POCT-GLUCOSE [id number] 09:52:00 Test Item Value Reference Range Comments POC-GLUCOSE METER (BEAKER) 86 mg/dL 70-110 TESTED AT [place] [id number] [facility] (test gpfm=6197) [facility] [address] CBC W/PLT COUNT & AUTO [id number] 07:11:00 Test Item Value Reference Range Comments WHITE BLOOD CELL COUNT (BEAKER) (test soje=516) 11.1 K/ L 4.0-10.0 RED BLOOD CELL COUNT (BEAKER) (test vyts=753) 3.26 M/ L 4.20-5.80 HEMOGLOBIN (BEAKER) (test hlds=254) 9.6 GM/DL 13.0-16.8 HEMATOCRIT (BEAKER) (test xieq=250) 29.4 % 40.0-50.0 MEAN CORPUSCULAR VOLUME (BEAKER) (test hdoi=095) 90.2 fL 82.0-98.0 MEAN CORPUSCULAR HEMOGLOBIN (BEAKER) (test 29.5 pg 27.0-33.0 xhvf=766) MEAN CORPUSCULAR HEMOGLOBIN CONC (BEAKER) (test 32.7 GM/DL 32.0-36.0 hguw=913) RED CELL DISTRIBUTION WIDTH (BEAKER) (test 14.7 % 10.3-14.2 jowt=989) PLATELET COUNT (BEAKER) (test mcuf=073) 280 K/CU MM 150-430 MEAN PLATELET VOLUME (BEAKER) (test mkzz=467) 6.8 fL 6.5-10.5 NUCLEATED RED BLOOD CELLS (BEAKER) (test 0 /100 WBC 0-0 zcpj=963) NEUTROPHILS RELATIVE PERCENT (BEAKER) (test 73 % toun=556) LYMPHOCYTES RELATIVE PERCENT (BEAKER) (test 15 % nmts=516) MONOCYTES RELATIVE PERCENT (BEAKER) (test 10 % zvac=853) EOSINOPHILS RELATIVE PERCENT (BEAKER) (test 2 % tcbk=100) BASOPHILS RELATIVE PERCENT (BEAKER) (test 0 % rtof=679) NEUTROPHILS ABSOLUTE COUNT (BEAKER) (test 8.08 K/ L 1.80-8.00 bgyf=903) LYMPHOCYTES ABSOLUTE COUNT (BEAKER) (test 1.66 K/ L 1.48-4.50 rgpc=835) MONOCYTES ABSOLUTE COUNT (BEAKER) (test 1.06 K/ L 0.00-1.30 vzod=056) EOSINOPHILS ABSOLUTE COUNT (BEAKER) (test 0.26 K/ L 0.00-0.50 krbn=231) BASOPHILS ABSOLUTE COUNT (BEAKER) (test 0.05 K/ L 0.00-0.20 gwwi=736) [id number] 06:02:00 Test Item Value Reference Range Comments PHOSPHORUS (BEAKER) (test ubhn=622) 1.7 mg/dL 2.3-4.7 [id number] 06:02:00 Test Item Value Reference Range Comments MAGNESIUM (BEAKER) (test hkka=792) 1.5 mg/dL 1.6-2.6 BASIC METABOLIC [id number] 06:02:00 Test Item Value Reference Range Comments SODIUM (BEAKER) (test 136 meq/L 136-145 vrhf=678) POTASSIUM (BEAKER) (test 3.9 meq/L 3.5-5.1 vyqi=211) CHLORIDE (BEAKER) (test 103 meq/L 98-107 xdpi=264) CO2 (BEAKER) (test 25 meq/L 22-29 dwju=705) BLOOD UREA NITROGEN 13 mg/dL 7-21 (BEAKER) (test kvew=478) CREATININE (BEAKER) (test 1.67 mg/dL 0.57-1.25 huep=399) GLUCOSE RANDOM (BEAKER) 74 mg/dL 70-105 (test aszk=832) CALCIUM (BEAKER) (test 8.7 mg/dL 8.4-10.2 lrlu=792) EGFR (BEAKER) (test 42 mL/min/1.73 sq m ESTIMATED GFR IS NOT zztu=5265) ACCURATE CREATININE CLEARANCE IN PREDICTING GLOMERULAR FILTRATION RATE. ESTIMATED GFR IS NOT APPLICABLE FOR DIALYSIS PATIENTS. POCT-GLUCOSE [id number] 21:46:00 Test Item Value Reference Range Comments POC-GLUCOSE METER (BEAKER) 83 mg/dL 70-110 TESTED AT [facility] [address] [facility] (test nozg=7180) [facility] [address] POCT-GLUCOSE [id number] 17:45:00 Test Item Value Reference Range Comments POC-GLUCOSE METER (BEAKER) 83 mg/dL 70-110 TESTED AT [facility] [address] [facility] (test rrhl=6974) [facility] [address] POCT-GLUCOSE [id number] 11:03:00 Test Item Value Reference Range Comments POC-GLUCOSE METER (BEAKER) 152 mg/dL 70-110 TESTED AT [facility] [address] [facility] (test dpvk=0177) [facility] [address] CBC W/PLT COUNT & AUTO [id number] 08:54:00 Test Item Value Reference Range Comments WHITE BLOOD CELL COUNT (BEAKER) (test finb=745) 14.2 K/ L 4.0-10.0 RED BLOOD CELL COUNT (BEAKER) (test livn=332) 2.99 M/ L 4.20-5.80 HEMOGLOBIN (BEAKER) (test qzvo=733) 8.6 GM/DL 13.0-16.8 HEMATOCRIT (BEAKER) (test qizj=763) 27.1 % 40.0-50.0 MEAN CORPUSCULAR VOLUME (BEAKER) (test jyoc=937) 90.6 fL 82.0-98.0 MEAN CORPUSCULAR HEMOGLOBIN (BEAKER) (test 28.6 pg 27.0-33.0 vnue=882) MEAN CORPUSCULAR HEMOGLOBIN CONC (BEAKER) (test 31.6 GM/DL 32.0-36.0 hjfu=098) RED CELL DISTRIBUTION WIDTH (BEAKER) (test 14.6 % 10.3-14.2 iaro=406) PLATELET COUNT (BEAKER) (test ocwh=264) 285 K/CU MM 150-430 MEAN PLATELET VOLUME (BEAKER) (test nqhq=487) 7.1 fL 6.5-10.5 NUCLEATED RED BLOOD CELLS (BEAKER) (test 0 /100 WBC 0-0 egbf=922) NEUTROPHILS RELATIVE PERCENT (BEAKER) (test 79 % toni=948) LYMPHOCYTES RELATIVE PERCENT (BEAKER) (test 10 % cufc=314) MONOCYTES RELATIVE PERCENT (BEAKER) (test 9 % hpqt=033) EOSINOPHILS RELATIVE PERCENT (BEAKER) (test 2 % bltj=807) BASOPHILS RELATIVE PERCENT (BEAKER) (test 0 % nihp=499) NEUTROPHILS ABSOLUTE COUNT (BEAKER) (test 11.20 K/ L 1.80-8.00 dpgr=506) LYMPHOCYTES ABSOLUTE COUNT (BEAKER) (test 1.40 K/ L 1.48-4.50 qaiv=927) MONOCYTES ABSOLUTE COUNT (BEAKER) (test 1.30 K/ L 0.00-1.30 iyfm=008) EOSINOPHILS ABSOLUTE COUNT (BEAKER) (test 0.27 K/ L 0.00-0.50 rylu=509) BASOPHILS ABSOLUTE COUNT (BEAKER) (test 0.04 K/ L 0.00-0.20 kgny=712) 0.00BASIC METABOLIC [id number] 08:46:00 Test Item Value Reference Range Comments SODIUM (BEAKER) (test 138 meq/L 136-145 oqeb=573) POTASSIUM (BEAKER) (test 3.8 meq/L 3.5-5.1 svgn=135) CHLORIDE (BEAKER) (test 103 meq/L 98-107 ihpi=884) CO2 (BEAKER) (test 25 meq/L 22-29 bqto=717) BLOOD UREA NITROGEN 29 mg/dL 7-21 (BEAKER) (test vete=473) CREATININE (BEAKER) (test 2.68 mg/dL 0.57-1.25 zqqw=774) GLUCOSE RANDOM (BEAKER) 91 mg/dL 70-105 (test hxle=729) CALCIUM (BEAKER) (test 7.9 mg/dL 8.4-10.2 voje=584) EGFR (BEAKER) (test 25 mL/min/1.73 sq m ESTIMATED GFR IS NOT ckhb=1397) ACCURATE CREATININE CLEARANCE IN PREDICTING GLOMERULAR FILTRATION RATE. ESTIMATED GFR IS NOT APPLICABLE FOR DIALYSIS PATIENTS. VANCOMYCIN LEVEL, [id number] 07:53:00 Test Item Value Reference Range Comments VANCOMYCIN RANDOM (BEAKER) (test cnnr=646) 15.1 ug/mL Reference Range: No NormalsPOCT-GLUCOSE [id number] 07:52:00 Test Item Value Reference Range Comments POC-GLUCOSE METER (BEAKER) 126 mg/dL 70-110 TESTED AT [facility] [address] [facility] (test pnxs=5479) [facility] [address] [id number] 07:50:00 Test Item Value Reference Range Comments PHOSPHORUS (BEAKER) (test feqb=147) 2.1 mg/dL 2.3-4.7 [id number] 07:50:00 Test Item Value Reference Range Comments MAGNESIUM (BEAKER) (test dncr=296) 1.7 mg/dL 1.6-2.6 POCT-GLUCOSE [id number] 21:08:00 Test Item Value Reference Range Comments POC-GLUCOSE METER (BEAKER) 234 mg/dL 70-110 TESTED AT [address] (test grmw=3370) [facility] [address] POCT-GLUCOSE [id number] 17:02:00 Test Item Value Reference Range Comments POC-GLUCOSE METER (BEAKER) 230 mg/dL 70-110 TESTED AT [address] (test kech=3677) [place] [id number] SURGICALLY OBTAINED CULTURE + GRAM [id number] 09:26:00 Test Item Value Reference Range Comments CULTURE (BEAKER) (test <1+ Same organism has been fswg=1397) isolated from cultures(s) of the same body site and collection date. Repeat identification and susceptibility testing performed only after consultation with the clinical microbiology laboratory.Refer to previous culture ofMethicillin resistant Staphylococcus aureus GRAM STAIN RESULT <1+ WBCs (BEAKER) (test agtp=7148) GRAM STAIN RESULT No organisms seen (BEAKER) (test mdaw=649519) SURGICALLY OBTAINED CULTURE + GRAM [id number] 09:25:00 Test Item Value Reference Range Comments CULTURE (BEAKER) (test METHICILLIN RESISTANT <1+ Methicillin vojv=0193) STAPHYLOCOCCUS AUREUS resistant Staphylococcus aureus Clindamycin (test code=10) Erythromycin (test code=4) Linezolid (test code=40) Oxacillin (test code=14) Rifampin (test code=43) Tetracycline (test code=2) Trimethoprim + Sulfamethoxazole (test code=47) Vancomycin (test code=13) CULTURE (BEAKER) (test METHICILLIN RESISTANT <1+ Methicillin itzp=45767) STAPHYLOCOCCUS AUREUS resistant Staphylococcus aureusof a second type Clindamycin (test code=10) Erythromycin (test code=4) Linezolid (test code=40) Oxacillin (test code=14) Rifampin (test code=43) Tetracycline (test code=2) Trimethoprim + Sulfamethoxazole (test code=47) Vancomycin (test code=13) GRAM STAIN RESULT No White blood cells (BEAKER) (test xprn=4284) seen GRAM STAIN RESULT No organisms seen (BEAKER) (test phfa=[id number]) POCT-GLUCOSE [id number] 08:39:00 Test Item Value Reference Range Comments POC-GLUCOSE METER (BEAKER) 129 mg/dL 70-110 TESTED AT [facility] [address] [facility] (test fxzb=8626) [place] [address] CBC W/PLT COUNT & AUTO [id number] 06:51:00 Test Item Value Reference Range Comments WHITE BLOOD CELL COUNT (BEAKER) (test gygz=100) 17.4 K/ L 4.0-10.0 RED BLOOD CELL COUNT (BEAKER) (test xvew=912) 2.99 M/ L 4.20-5.80 HEMOGLOBIN (BEAKER) (test ygwv=280) 8.9 GM/DL 13.0-16.8 HEMATOCRIT (BEAKER) (test wpqq=381) 27.1 % 40.0-50.0 MEAN CORPUSCULAR VOLUME (BEAKER) (test ajip=505) 90.6 fL 82.0-98.0 MEAN CORPUSCULAR HEMOGLOBIN (BEAKER) (test 29.6 pg 27.0-33.0 ldds=875) MEAN CORPUSCULAR HEMOGLOBIN CONC (BEAKER) (test 32.7 GM/DL 32.0-36.0 zxow=707) RED CELL DISTRIBUTION WIDTH (BEAKER) (test 15.3 % 10.3-14.2 djam=458) PLATELET COUNT (BEAKER) (test pmci=130) 246 K/CU MM 150-430 MEAN PLATELET VOLUME (BEAKER) (test atao=067) 6.7 fL 6.5-10.5 NUCLEATED RED BLOOD CELLS (BEAKER) (test 0 /100 WBC 0-0 axep=523) NEUTROPHILS RELATIVE PERCENT (BEAKER) (test 83 % wtde=921) LYMPHOCYTES RELATIVE PERCENT (BEAKER) (test 7 % eylk=579) MONOCYTES RELATIVE PERCENT (BEAKER) (test 9 % kngi=036) EOSINOPHILS RELATIVE PERCENT (BEAKER) (test 1 % uesm=164) BASOPHILS RELATIVE PERCENT (BEAKER) (test 0 % jvst=525) NEUTROPHILS ABSOLUTE COUNT (BEAKER) (test 14.50 K/ L 1.80-8.00 fyzq=916) LYMPHOCYTES ABSOLUTE COUNT (BEAKER) (test 1.19 K/ L 1.48-4.50 zfuj=155) MONOCYTES ABSOLUTE COUNT (BEAKER) (test 1.56 K/ L 0.00-1.30 vjly=033) EOSINOPHILS ABSOLUTE COUNT (BEAKER) (test 0.13 K/ L 0.00-0.50 fbdl=457) BASOPHILS ABSOLUTE COUNT (BEAKER) (test 0.03 K/ L 0.00-0.20 jemb=611) 0.00BASIC METABOLIC [id number] 05:44:00 Test Item Value Reference Range Comments SODIUM (BEAKER) (test 139 meq/L 136-145 iulp=308) POTASSIUM (BEAKER) (test 3.7 meq/L 3.5-5.1 syni=769) CHLORIDE (BEAKER) (test 104 meq/L 98-107 fbhx=780) CO2 (BEAKER) (test 26 meq/L 22-29 ooun=823) BLOOD UREA NITROGEN 19 mg/dL 7-21 (BEAKER) (test uese=167) CREATININE (BEAKER) (test 2.08 mg/dL 0.57-1.25 toyp=399) GLUCOSE RANDOM (BEAKER) 127 mg/dL 70-105 (test wvhu=941) CALCIUM (BEAKER) (test 7.9 mg/dL 8.4-10.2 aigo=146) EGFR (BEAKER) (test 33 mL/min/1.73 sq m ESTIMATED GFR IS NOT eppk=2471) ACCURATE CREATININE CLEARANCE IN PREDICTING GLOMERULAR FILTRATION RATE. ESTIMATED GFR IS NOT APPLICABLE FOR DIALYSIS PATIENTS. [id number] 05:42:00 Test Item Value Reference Range Comments PHOSPHORUS (BEAKER) (test ejrb=934) 2.3 mg/dL 2.3-4.7 [id number] 05:42:00 Test Item Value Reference Range Comments MAGNESIUM (BEAKER) (test mytv=549) 1.7 mg/dL 1.6-2.6 CALCIUM, [id number] 05:21:00 Test Item Value Reference Range Comments CALCIUM IONIZED (BEAKER) (test rnag=999) 0.99 mmol/L 1.12-1.27 PH, BLOOD (BEAKER) (test pfrn=0388) 7.44 POCT-GLUCOSE [id number] 21:08:00 Test Item Value Reference Range Comments POC-GLUCOSE METER (BEAKER) 184 mg/dL 70-110 TESTED AT [address] (test msqc=3309) [place] [id number] POCT-GLUCOSE [id number] 18:10:00 Test Item Value Reference Range Comments POC-GLUCOSE METER (BEAKER) 214 mg/dL 70-110 TESTED AT [address] (test qjyh=9529) [place] [id number] POCT-GLUCOSE [id number] 18:04:00 Test Item Value Reference Range Comments POC-GLUCOSE METER (BEAKER) 169 mg/dL 70-110 TESTED AT [address] (test cikq=2023) [place] [id number] POCT-GLUCOSE [id number] 11:49:00 Test Item Value Reference Range Comments POC-GLUCOSE METER (BEAKER) 126 mg/dL 70-110 TESTED AT [address] (test fecs=7841) [place] [id number] POCT-GLUCOSE [id number] 08:17:00 Test Item Value Reference Range Comments POC-GLUCOSE METER (BEAKER) 119 mg/dL 70-110 TESTED AT [address] (test yqwf=1743) [place] [id number] VANCOMYCIN LEVEL, [id number] 06:32:00 Test Item Value Reference Range Comments VANCOMYCIN RANDOM (BEAKER) (test nrgt=468) 13.8 ug/mL Reference Range: No NormalsPOCT-GLUCOSE [id number] 05:54:00 Test Item Value Reference Range Comments POC-GLUCOSE METER (BEAKER) 122 mg/dL 70-110 TESTED AT [address] (test znnm=8809) [place] [address] B-TYPE NATRIURETIC FACTOR (BNP)2016-12-14 03:44:00 Test Item Value Reference Range Comments B-TYPE NATRIURETIC PEPTIDE (BEAKER) (test 883 pg/mL 0-100 bnue=105) BASIC METABOLIC [id number] 03:40:00 Test Item Value Reference Range Comments SODIUM (BEAKER) (test 140 meq/L 136-145 yjzl=354) POTASSIUM (BEAKER) (test 4.5 meq/L 3.5-5.1 yyal=896) CHLORIDE (BEAKER) (test 109 meq/L 98-107 vtrf=231) CO2 (BEAKER) (test 23 meq/L 22-29 gyyx=132) BLOOD UREA NITROGEN 21 mg/dL 7-21 (BEAKER) (test tlam=408) CREATININE (BEAKER) (test 2.96 mg/dL 0.57-1.25 rsqv=726) GLUCOSE RANDOM (BEAKER) 118 mg/dL 70-105 (test fipn=369) CALCIUM (BEAKER) (test 7.5 mg/dL 8.4-10.2 vdjl=917) EGFR (BEAKER) (test 22 mL/min/1.73 sq m ESTIMATED GFR IS NOT xdsy=8026) ACCURATE CREATININE CLEARANCE IN PREDICTING GLOMERULAR FILTRATION RATE. ESTIMATED GFR IS NOT APPLICABLE FOR DIALYSIS PATIENTS. [id number] 03:37:00 Test Item Value Reference Range Comments PHOSPHORUS (BEAKER) (test nocn=836) 4.6 mg/dL 2.3-4.7 [id number] 03:37:00 Test Item Value Reference Range Comments MAGNESIUM (BEAKER) (test qyww=691) 1.7 mg/dL 1.6-2.6 CBC W/PLT COUNT & AUTO [id number] 03:36:00 Test Item Value Reference Range Comments WHITE BLOOD CELL COUNT (BEAKER) (test ejqn=447) 23.8 K/ L 4.0-10.0 RED BLOOD CELL COUNT (BEAKER) (test ypcj=178) 2.80 M/ L 4.20-5.80 HEMOGLOBIN (BEAKER) (test lmxt=365) 8.3 GM/DL 13.0-16.8 HEMATOCRIT (BEAKER) (test aoth=309) 25.7 % 40.0-50.0 MEAN CORPUSCULAR VOLUME (BEAKER) (test tvhe=997) 91.8 fL 82.0-98.0 MEAN CORPUSCULAR HEMOGLOBIN (BEAKER) (test 29.6 pg 27.0-33.0 yomk=645) MEAN CORPUSCULAR HEMOGLOBIN CONC (BEAKER) (test 32.2 GM/DL 32.0-36.0 bsgg=438) RED CELL DISTRIBUTION WIDTH (BEAKER) (test 14.8 % 10.3-14.2 dzif=062) PLATELET COUNT (BEAKER) (test vtat=917) 261 K/CU MM 150-430 MEAN PLATELET VOLUME (BEAKER) (test ptdi=024) 6.4 fL 6.5-10.5 NUCLEATED RED BLOOD CELLS (BEAKER) (test 0 /100 WBC 0-0 lave=638) NEUTROPHILS RELATIVE PERCENT (BEAKER) (test 88 % lvau=447) LYMPHOCYTES RELATIVE PERCENT (BEAKER) (test 6 % yrmb=468) MONOCYTES RELATIVE PERCENT (BEAKER) (test 6 % yaim=909) EOSINOPHILS RELATIVE PERCENT (BEAKER) (test 0 % jwwn=131) BASOPHILS RELATIVE PERCENT (BEAKER) (test 0 % lclg=507) NEUTROPHILS ABSOLUTE COUNT (BEAKER) (test 21.00 K/ L 1.80-8.00 thtl=437) LYMPHOCYTES ABSOLUTE COUNT (BEAKER) (test 1.16 K/ L 1.48-4.50 pcqs=027) MONOCYTES ABSOLUTE COUNT (BEAKER) (test 1.53 K/ L 0.00-1.30 ibuv=155) EOSINOPHILS ABSOLUTE COUNT (BEAKER) (test 0.08 K/ L 0.00-0.50 kwys=741) BASOPHILS ABSOLUTE COUNT (BEAKER) (test 0.03 K/ L 0.00-0.20 feeq=963) 0.00CALCIUM, [id number] 03:20:00 Test Item Value Reference Range Comments CALCIUM IONIZED (BEAKER) (test bcqx=056) 1.02 mmol/L 1.12-1.27 PH, BLOOD (BEAKER) (test dmlj=8894) 7.44 POCT-GLUCOSE [id number] 23:20:00 Test Item Value Reference Range Comments POC-GLUCOSE METER (BEAKER) 129 mg/dL 70-110 TESTED AT [address] (test rabg=2457) [facility] [address] POCT-GLUCOSE [id number] 16:47:00 Test Item Value Reference Range Comments POC-GLUCOSE METER (BEAKER) 120 mg/dL 70-110 TESTED AT [address] (test fblr=8115) [place] [address] SPIN/CONCENTRATION [id number] 13:52:00 Test Item Value Reference Range Comments CONCENTRATION CHARGED (BEAKER) (test lvet=7132) Done SPIN/CONCENTRATION [id number] 13:52:00 Test Item Value Reference Range Comments CONCENTRATION CHARGED (BEAKER) (test zxyp=8079) Done BLOOD GAS, [id number] 08:32:00 Test Item Value Reference Range Comments PH ARTERIAL (BEAKER) (test erpu=649) 7.41 7.35-7.45 PCO2 ARTERIAL (BEAKER) (test uzta=607) 45 mmHg 35-45 PO2 ARTERIAL (BEAKER) (test qked=354) 137 mmHg 80-90 O2 SATURATION ARTERIAL (BEAKER) (test vdzr=804) 98.7 % 96.0-97.0 HCO3 ARTERIAL (BEAKER) (test sypx=726) 28 mmol/L 21-29 BASE EXCESS ARTERIAL (BEAKER) (test tmuc=397) 2.8 mmol/L -2.0-3.0 PATIENT TEMPERATURE (BEAKER) (test zwcq=9723) 37.0 C FIO2 (BEAKER) (test kimr=8823) 40.0 % CBC W/PLT COUNT & AUTO [id number] 08:04:00 Test Item Value Reference Range Comments WHITE BLOOD CELL COUNT (BEAKER) (test atwe=965) 23.6 K/ L 4.0-10.0 RED BLOOD CELL COUNT (BEAKER) (test iazc=397) 3.04 M/ L 4.20-5.80 HEMOGLOBIN (BEAKER) (test mqdo=415) 8.9 GM/DL 13.0-16.8 HEMATOCRIT (BEAKER) (test chuq=331) 26.9 % 40.0-50.0 MEAN CORPUSCULAR VOLUME (BEAKER) (test ntsj=366) 88.6 fL 82.0-98.0 MEAN CORPUSCULAR HEMOGLOBIN (BEAKER) (test 29.4 pg 27.0-33.0 ooqr=173) MEAN CORPUSCULAR HEMOGLOBIN CONC (BEAKER) (test 33.2 GM/DL 32.0-36.0 lfhi=682) RED CELL DISTRIBUTION WIDTH (BEAKER) (test 15.4 % 10.3-14.2 hxpr=019) PLATELET COUNT (BEAKER) (test soxh=471) 291 K/CU MM 150-430 MEAN PLATELET VOLUME (BEAKER) (test klly=204) 6.9 fL 6.5-10.5 NUCLEATED RED BLOOD CELLS (BEAKER) (test 0 /100 WBC 0-0 bqtz=519) NEUTROPHILS RELATIVE PERCENT (BEAKER) (test 89 % uyvi=733) LYMPHOCYTES RELATIVE PERCENT (BEAKER) (test 5 % ypqa=783) MONOCYTES RELATIVE PERCENT (BEAKER) (test 6 % atnr=692) EOSINOPHILS RELATIVE PERCENT (BEAKER) (test 0 % wklm=782) BASOPHILS RELATIVE PERCENT (BEAKER) (test 0 % pwtj=640) NEUTROPHILS ABSOLUTE COUNT (BEAKER) (test 21.00 K/ L 1.80-8.00 yqsw=907) LYMPHOCYTES ABSOLUTE COUNT (BEAKER) (test 1.17 K/ L 1.48-4.50 kloq=773) MONOCYTES ABSOLUTE COUNT (BEAKER) (test 1.37 K/ L 0.00-1.30 smpi=280) EOSINOPHILS ABSOLUTE COUNT (BEAKER) (test 0.04 K/ L 0.00-0.50 qpxr=288) BASOPHILS ABSOLUTE COUNT (BEAKER) (test 0.02 K/ L 0.00-0.20 gsnc=691) 0.00(MANUAL DIFFERENTIAL)2016-12-13 08:04:00 Test Item Value Reference Range Comments TOTAL COUNTED (BEAKER) (test zwek=6948) WBC MORPHOLOGY (BEAKER) (test ucll=790) Normal PLT MORPHOLOGY (BEAKER) (test muhk=261) Normal HYPOCHROMIA (BEAKER) (test fsuh=705) 1+ few POCT-GLUCOSE [id number] 07:23:00 Test Item Value Reference Range Comments POC-GLUCOSE METER (BEAKER) 116 mg/dL 70-110 TESTED AT [address] (test lwjz=2162) [facility] [address] POCT-GLUCOSE [id number] 06:31:00 Test Item Value Reference Range Comments POC-GLUCOSE METER (BEAKER) 115 mg/dL 70-110 TESTED AT [address] (test lsjn=9965) [facility] [address] CALCIUM, [id number] 05:09:00 Test Item Value Reference Range Comments CALCIUM IONIZED (BEAKER) (test zbhs=747) 1.06 mmol/L 1.12-1.27 PH, BLOOD (BEAKER) (test quuw=3402) 7.46 BASIC METABOLIC [id number] 04:49:00 Test Item Value Reference Range Comments SODIUM (BEAKER) (test 139 meq/L 136-145 lzal=540) POTASSIUM (BEAKER) (test 4.5 meq/L 3.5-5.1 jqzm=571) CHLORIDE (BEAKER) (test 106 meq/L 98-107 wuxd=842) CO2 (BEAKER) (test 26 meq/L 22-29 fmip=385) BLOOD UREA NITROGEN 14 mg/dL 7-21 (BEAKER) (test nins=418) CREATININE (BEAKER) (test 2.20 mg/dL 0.57-1.25 admw=907) GLUCOSE RANDOM (BEAKER) 138 mg/dL 70-105 (test qibo=821) CALCIUM (BEAKER) (test 7.8 mg/dL 8.4-10.2 egsg=048) EGFR (BEAKER) (test 31 mL/min/1.73 sq m ESTIMATED GFR IS NOT zurp=9152) ACCURATE CREATININE CLEARANCE IN PREDICTING GLOMERULAR FILTRATION RATE. ESTIMATED GFR IS NOT APPLICABLE FOR DIALYSIS PATIENTS. [id number] 04:47:00 Test Item Value Reference Range Comments PHOSPHORUS (BEAKER) (test todh=163) 3.8 mg/dL 2.3-4.7 [id number] 04:47:00 Test Item Value Reference Range Comments MAGNESIUM (BEAKER) (test eems=916) 1.6 mg/dL 1.6-2.6 POCT-GLUCOSE [id number] 00:17:00 Test Item Value Reference Range Comments POC-GLUCOSE METER (BEAKER) 165 mg/dL 70-110 TESTED AT [address] (test fmog=3603) [facility] [address] POCT-GLUCOSE [id number] 19:50:00 Test Item Value Reference Range Comments POC-GLUCOSE METER (BEAKER) 150 mg/dL 70-110 TESTED AT [address] (test hvbr=1799) [facility] [address] GLUCOSE-STAT [id number] 16:40:00 Test Item Value Reference Range Comments GLUCOSE RANDOM (BEAKER) (test wsfa=111) 93 mg/dL 70-110 SODIUM NA-STAT [id number] 16:40:00 Test Item Value Reference Range Comments SODIUM (BEAKER) (test rmfk=787) 136 meq/L 135-148 POTASSIUM-STAT [id number] 16:40:00 Test Item Value Reference Range Comments POTASSIUM (BEAKER) (test hnpd=908) 3.8 meq/L 3.6-5.5 BLOOD GAS, [id number] 16:40:00 Test Item Value Reference Range Comments PH ARTERIAL (BEAKER) (test wqnq=505) 7.45 7.35-7.45 PCO2 ARTERIAL (BEAKER) (test bjvb=476) 46 mmHg 35-45 PO2 ARTERIAL (BEAKER) (test rmoj=728) 371 mmHg 80-90 O2 SATURATION ARTERIAL (BEAKER) (test sjnj=358) 99.8 % 96.0-97.0 HCO3 ARTERIAL (BEAKER) (test imnx=343) 31 mmol/L 21-29 BASE EXCESS ARTERIAL (BEAKER) (test tnjr=486) 6.0 mmol/L -2.0-3.0 PATIENT TEMPERATURE (BEAKER) (test ybkh=0574) 37.0 C FIO2 (BEAKER) (test uccc=4051) 60.0 % HGB/HCT (H&H) - STAT [id number] 16:40:00 Test Item Value Reference Range Comments HEMOGLOBIN (BEAKER) (test npmn=806) 6.3 g/dL 13.0-16.8 HEMATOCRIT (BEAKER) (test gyde=704) 19.0 % 40.0-50.0 GLUCOSE-STAT [id number] 16:14:00 Test Item Value Reference Range Comments GLUCOSE RANDOM (BEAKER) (test guja=658) 89 mg/dL 70-110 [id number] 13:22:00 Test Item Value Reference Range Comments PARTIAL THROMBOPLASTIN TIME (BEAKER) (test 80.1 seconds 22.5-36.0 yquy=149) POCT-GLUCOSE [id number] 11:57:00 Test Item Value Reference Range Comments POC-GLUCOSE METER (BEAKER) 82 mg/dL 70-110 TESTED AT [address] (test ohez=5994) [facility] [address] POCT-GLUCOSE [id number] 08:15:00 Test Item Value Reference Range Comments POC-GLUCOSE METER (BEAKER) 90 mg/dL 70-110 TESTED AT [address] (test ssfz=2787) [facility] [address] CBC W/PLT COUNT & AUTO [id number] 05:50:00 Test Item Value Reference Range Comments WHITE BLOOD CELL COUNT (BEAKER) (test ikou=602) 13.9 K/ L 4.0-10.0 RED BLOOD CELL COUNT (BEAKER) (test wicv=909) 2.42 M/ L 4.20-5.80 HEMOGLOBIN (BEAKER) (test gept=077) 7.2 GM/DL 13.0-16.8 HEMATOCRIT (BEAKER) (test dbbj=844) 21.8 % 40.0-50.0 MEAN CORPUSCULAR VOLUME (BEAKER) (test wwxb=378) 90.3 fL 82.0-98.0 MEAN CORPUSCULAR HEMOGLOBIN (BEAKER) (test 29.5 pg 27.0-33.0 hnyl=640) MEAN CORPUSCULAR HEMOGLOBIN CONC (BEAKER) (test 32.7 GM/DL 32.0-36.0 niya=351) RED CELL DISTRIBUTION WIDTH (BEAKER) (test 15.9 % 10.3-14.2 nzje=066) PLATELET COUNT (BEAKER) (test nubc=062) 282 K/CU MM 150-430 MEAN PLATELET VOLUME (BEAKER) (test tsnm=822) 6.8 fL 6.5-10.5 NUCLEATED RED BLOOD CELLS (BEAKER) (test 0 /100 WBC 0-0 fale=575) NEUTROPHILS RELATIVE PERCENT (BEAKER) (test 78 % kesl=883) LYMPHOCYTES RELATIVE PERCENT (BEAKER) (test 11 % fspz=602) MONOCYTES RELATIVE PERCENT (BEAKER) (test 9 % rptq=953) EOSINOPHILS RELATIVE PERCENT (BEAKER) (test 1 % emhe=291) BASOPHILS RELATIVE PERCENT (BEAKER) (test 0 % sjya=067) NEUTROPHILS ABSOLUTE COUNT (BEAKER) (test 10.80 K/ L 1.80-8.00 qdft=524) LYMPHOCYTES ABSOLUTE COUNT (BEAKER) (test 1.57 K/ L 1.48-4.50 noqq=313) MONOCYTES ABSOLUTE COUNT (BEAKER) (test 1.30 K/ L 0.00-1.30 gcro=533) EOSINOPHILS ABSOLUTE COUNT (BEAKER) (test 0.20 K/ L 0.00-0.50 pscp=872) BASOPHILS ABSOLUTE COUNT (BEAKER) (test 0.04 K/ L 0.00-0.20 fngy=050) 0.00CALCIUM, [id number] 05:43:00 Test Item Value Reference Range Comments CALCIUM IONIZED (BEAKER) (test iqiy=452) 0.97 mmol/L 1.12-1.27 PH, BLOOD (BEAKER) (test cekd=9722) 7.51 BASIC METABOLIC [id number] 05:35:00 Test Item Value Reference Range Comments SODIUM (BEAKER) (test 132 meq/L 136-145 tfrb=749) POTASSIUM (BEAKER) (test 4.2 meq/L 3.5-5.1 cglq=365) CHLORIDE (BEAKER) (test 102 meq/L 98-107 kvww=385) CO2 (BEAKER) (test 22 meq/L 22-29 wxjf=427) BLOOD UREA NITROGEN 26 mg/dL 7-21 (BEAKER) (test kgwj=301) CREATININE (BEAKER) (test 3.57 mg/dL 0.57-1.25 qlxy=745) GLUCOSE RANDOM (BEAKER) 69 mg/dL 70-105 (test kven=972) CALCIUM (BEAKER) (test 7.6 mg/dL 8.4-10.2 alrs=937) EGFR (BEAKER) (test 18 mL/min/1.73 sq m ESTIMATED GFR IS NOT vysw=6721) ACCURATE CREATININE CLEARANCE IN PREDICTING GLOMERULAR FILTRATION RATE. ESTIMATED GFR IS NOT APPLICABLE FOR DIALYSIS PATIENTS. [id number] 05:31:00 Test Item Value Reference Range Comments PHOSPHORUS (BEAKER) (test wnkt=004) 3.7 mg/dL 2.3-4.7 [id number] 05:31:00 Test Item Value Reference Range Comments MAGNESIUM (BEAKER) (test clli=062) 1.8 mg/dL 1.6-2.6 [id number] 05:30:00 Test Item Value Reference Range Comments PARTIAL THROMBOPLASTIN TIME (BEAKER) (test 44.4 seconds 22.5-36.0 kmdb=804) PROTHROMBIN [id number] 05:29:00 Test Item Value Reference Range Comments PROTIME (BEAKER) (test jodk=076) 14.5 seconds 11.7-14.7 INR (BEAKER) (test shnv=760) 1.1 <=5.9 RECOMMENDED COUMADIN/WARFARIN INR THERAPY RANGESSTANDARD DOSE: 2.0 - 3.0 Includes: PROPHYLAXIS forvenous thrombosis, systemic embolization; TREATMENT for venous thrombosis and/or pulmonary embolus.HIGH RISK: Target INR is 2.5-3.5 for patients with mechanical heart valves.POCT-GLUCOSE [id number] 22:10:00 Test Item Value Reference Range Comments POC-GLUCOSE METER (BEAKER) 106 mg/dL 70-110 TESTED AT [address] (test gdrz=6826) [place] [address] POCT-GLUCOSE [id number] 17:31:00 Test Item Value Reference Range Comments POC-GLUCOSE METER (BEAKER) 114 mg/dL 70-110 TESTED AT [address] (test kfox=1637) [place] [address] [id number] 15:36:00 Test Item Value Reference Range Comments PARTIAL THROMBOPLASTIN TIME (BEAKER) (test 38.5 seconds 22.5-36.0 aqiq=749) PROTHROMBIN [id number] 15:35:00 Test Item Value Reference Range Comments PROTIME (BEAKER) (test nell=233) 14.6 seconds 11.7-14.7 INR (BEAKER) (test ppos=624) 1.2 <=5.9 RECOMMENDED COUMADIN/WARFARIN INR THERAPY RANGESSTANDARD DOSE: 2.0 - 3.0 Includes: PROPHYLAXIS forvenous thrombosis, systemic embolization; TREATMENT for venous thrombosis and/or pulmonary embolus.HIGH RISK: Target INR is 2.5-3.5 for patients with mechanical heart valves.POCT-GLUCOSE [id number] 12:12:00 Test Item Value Reference Range Comments POC-GLUCOSE METER (BEAKER) 130 mg/dL 70-110 TESTED AT [address] (test wrli=4973) [place] [id number] POCT-GLUCOSE [id number] 08:04:00 Test Item Value Reference Range Comments POC-GLUCOSE METER (BEAKER) 96 mg/dL 70-110 TESTED AT [address] (test zmxd=1442) [place] [address] VANCOMYCIN LEVEL, [id number] 07:30:00 Test Item Value Reference Range Comments VANCOMYCIN RANDOM (BEAKER) (test mggi=494) 21.2 ug/mL Reference Range: No NormalsPOCT-GLUCOSE [id number] 20:25:00 Test Item Value Reference Range Comments POC-GLUCOSE METER (BEAKER) 152 mg/dL 70-110 TESTED AT [address] (test mmct=9205) [place] [id number] POCT-GLUCOSE [id number] 17:23:00 Test Item Value Reference Range Comments POC-GLUCOSE METER (BEAKER) 161 mg/dL 70-110 TESTED AT [address] (test dhxx=8758) [place] [id number] 13:34:00 Test Item Value Reference Range Comments PROTIME (BEAKER) (test okvm=673) 15.4 seconds 11.7-14.7 INR (BEAKER) (test hefz=582) 1.2 <=5.9 PARTIAL THROMBOPLASTIN TIME (BEAKER) (test 51.5 seconds 22.5-36.0 xlff=437) RECOMMENDED COUMADIN/WARFARIN INR THERAPY RANGESSTANDARD DOSE: 2.0 - 3.0 Includes: PROPHYLAXIS forvenous thrombosis, systemic embolization; TREATMENT for venous thrombosis and/or pulmonary embolus.HIGH RISK: Target INR is 2.5-3.5 for patients with mechanical heart valves.POCT-GLUCOSE [id number] 12:11:00 Test Item Value Reference Range Comments POC-GLUCOSE METER (BEAKER) 140 mg/dL 70-110 TESTED AT [address] (test awhp=8418) [place] [id number] CBC W/PLT COUNT & AUTO [id number] 08:02:00 Test Item Value Reference Range Comments WHITE BLOOD CELL COUNT (BEAKER) (test mxmc=537) 14.8 K/ L 4.0-10.0 RED BLOOD CELL COUNT (BEAKER) (test watw=576) 2.40 M/ L 4.20-5.80 HEMOGLOBIN (BEAKER) (test ygtq=758) 7.0 GM/DL 13.0-16.8 HEMATOCRIT (BEAKER) (test kkcq=104) 21.6 % 40.0-50.0 MEAN CORPUSCULAR VOLUME (BEAKER) (test xmzy=363) 90.0 fL 82.0-98.0 MEAN CORPUSCULAR HEMOGLOBIN (BEAKER) (test 29.2 pg 27.0-33.0 nqii=954) MEAN CORPUSCULAR HEMOGLOBIN CONC (BEAKER) (test 32.5 GM/DL 32.0-36.0 lhft=060) RED CELL DISTRIBUTION WIDTH (BEAKER) (test 15.8 % 10.3-14.2 sspq=854) PLATELET COUNT (BEAKER) (test aonj=832) 276 K/CU MM 150-430 MEAN PLATELET VOLUME (BEAKER) (test uozg=071) 6.8 fL 6.5-10.5 NUCLEATED RED BLOOD CELLS (BEAKER) (test 0 /100 WBC 0-0 fgeq=554) NEUTROPHILS RELATIVE PERCENT (BEAKER) (test 80 % jkdv=422) LYMPHOCYTES RELATIVE PERCENT (BEAKER) (test 10 % gbxl=381) MONOCYTES RELATIVE PERCENT (BEAKER) (test 9 % ievq=468) EOSINOPHILS RELATIVE PERCENT (BEAKER) (test 1 % vbdt=000) BASOPHILS RELATIVE PERCENT (BEAKER) (test 0 % mksh=458) NEUTROPHILS ABSOLUTE COUNT (BEAKER) (test 11.80 K/ L 1.80-8.00 tmyb=391) LYMPHOCYTES ABSOLUTE COUNT (BEAKER) (test 1.49 K/ L 1.48-4.50 gqio=078) MONOCYTES ABSOLUTE COUNT (BEAKER) (test 1.28 K/ L 0.00-1.30 vcjm=276) EOSINOPHILS ABSOLUTE COUNT (BEAKER) (test 0.17 K/ L 0.00-0.50 muct=727) BASOPHILS ABSOLUTE COUNT (BEAKER) (test 0.04 K/ L 0.00-0.20 wumu=732) 0.00VANCOMYCIN LEVEL, [id number] 07:43:00 Test Item Value Reference Range Comments VANCOMYCIN RANDOM (BEAKER) (test sxpp=184) 31.1 ug/mL Reference Range: No NormalsBASIC METABOLIC [id number] 07:30:00 Test Item Value Reference Range Comments SODIUM (BEAKER) (test 134 meq/L 136-145 piaw=575) POTASSIUM (BEAKER) (test 3.6 meq/L 3.5-5.1 umps=566) CHLORIDE (BEAKER) (test 100 meq/L 98-107 cnal=189) CO2 (BEAKER) (test 27 meq/L 22-29 iwwf=654) BLOOD UREA NITROGEN 12 mg/dL 7-21 (BEAKER) (test bxvt=332) CREATININE (BEAKER) (test 1.88 mg/dL 0.57-1.25 ipgz=943) GLUCOSE RANDOM (BEAKER) 109 mg/dL 70-105 (test biot=210) CALCIUM (BEAKER) (test 7.7 mg/dL 8.4-10.2 jhcx=326) EGFR (BEAKER) (test 37 mL/min/1.73 sq m ESTIMATED GFR IS NOT byae=1704) ACCURATE CREATININE CLEARANCE IN PREDICTING GLOMERULAR FILTRATION RATE. ESTIMATED GFR IS NOT APPLICABLE FOR DIALYSIS PATIENTS. [id number] 07:25:00 Test Item Value Reference Range Comments PHOSPHORUS (BEAKER) (test bpcm=792) 2.9 mg/dL 2.3-4.7 [id number] 07:25:00 Test Item Value Reference Range Comments MAGNESIUM (BEAKER) (test fnna=786) 1.3 mg/dL 1.6-2.6 POCT-GLUCOSE [id number] 07:18:00 Test Item Value Reference Range Comments POC-GLUCOSE METER (BEAKER) 107 mg/dL 70-110 TESTED AT [address] (test fvws=6424) [place] [id number] CALCIUM, [id number] 06:57:00 Test Item Value Reference Range Comments CALCIUM IONIZED (BEAKER) (test dnac=938) 1.04 mmol/L 1.12-1.27 PH, BLOOD (BEAKER) (test vukl=6641) 7.44 BLOOD [id number] 17:00:00 Test Item Value Reference Range Comments CULTURE (BEAKER) (test bwfm=6279) No growth in 5 days BLOOD [id number] 17:00:00 Test Item Value Reference Range Comments CULTURE (BEAKER) (test rscs=9937) No growth in 5 days POCT-GLUCOSE [id number] 12:01:00 Test Item Value Reference Range Comments POC-GLUCOSE METER (BEAKER) 128 mg/dL 70-110 TESTED AT [address] (test begf=4247) [facility] [address] POCT-GLUCOSE [id number] 07:48:00 Test Item Value Reference Range Comments POC-GLUCOSE METER (BEAKER) 100 mg/dL 70-110 TESTED AT [address] (test ndri=8893) [place] [id number] VANCOMYCIN LEVEL, [id number] 05:36:00 Test Item Value Reference Range Comments VANCOMYCIN RANDOM (BEAKER) (test aqzb=706) 26.8 ug/mL Reference Range: No NormalsSPUTUM CULTURE + GRAM [id number] 00:09:00 Test Item Value Reference Range Comments CULTURE (BEAKER) (test Oropharyngeal contamination, ofyz=3676) specimen rejected. Recollect requested. GRAM STAIN RESULT (BEAKER) No WBCs (test aakn=5766) GRAM STAIN RESULT (BEAKER) >25 epithelial cells (test tdna=32247) GRAM STAIN RESULT (BEAKER) 4+ gram positive rods (test svlu=72565) GRAM STAIN RESULT (BEAKER) 4+ gram positive cocci in pairs (test aeoq=704631) GRAM STAIN RESULT (BEAKER) 4+ budding yeast (test dajs=256673) POCT-GLUCOSE [id number] 20:17:00 Test Item Value Reference Range Comments POC-GLUCOSE METER (BEAKER) 111 mg/dL 70-110 TESTED AT [facility] [address] [facility] (test estz=9320) [facility] [address] TSH/FREE T4 IF [id number] 18:39:00 Test Item Value Reference Range Comments THYROID STIMULATING HORMONE (BEAKER) (test 3.14 uIU/mL 0.35-4.94 rlua=360) VITAMIN B12 AND [id number] 18:39:00 Test Item Value Reference Range Comments VITAMIN B12 (BEAKER) (test lsct=216) 1407 pg/mL 213-816 FOLATE (BEAKER) (test avdi=258) 16.4 ng/mL >=7.0 Effective 09/08/2014: Folate Reference Range ChangeNew: >=7.0 Previous: & gt;=[id number] 18:12:00 Test Item Value Reference Range Comments CALCIUM (BEAKER) (test oytt=414) 8.2 mg/dL 8.4-10.2 PROTHROMBIN [id number] 18:07:00 Test Item Value Reference Range Comments PROTIME (BEAKER) (test ibor=583) 15.5 seconds 11.7-14.7 INR (BEAKER) (test rtom=615) 1.2 <=5.9 RECOMMENDED COUMADIN/WARFARIN INR THERAPY RANGESSTANDARD DOSE: 2.0 - 3.0 Includes: PROPHYLAXIS forvenous thrombosis, systemic embolization; TREATMENT for venous thrombosis and/or pulmonary embolus.HIGH RISK: Target INR is 2.5-3.5 for patients with mechanical heart valves.[id number] 18:06:00 Test Item Value Reference Range Comments PHOSPHORUS (BEAKER) (test gkgc=065) 3.4 mg/dL 2.3-4.7 [id number] 18:06:00 Test Item Value Reference Range Comments MAGNESIUM (BEAKER) (test fbqp=294) 1.5 mg/dL 1.6-2.6 HEPATIC FUNCTION [id number] 18:06:00 Test Item Value Reference Range Comments TOTAL PROTEIN (BEAKER) (test dtqa=166) 5.9 gm/dL 6.0-8.3 ALBUMIN (BEAKER) (test wmbc=8508) 2.3 g/dL 3.5-5.0 BILIRUBIN TOTAL (BEAKER) (test bjmr=387) 0.4 mg/dL 0.2-1.2 BILIRUBIN DIRECT (BEAKER) (test ceqe=615) 0.2 mg/dL 0.1-0.5 ALKALINE PHOSPHATASE (BEAKER) (test jlcz=985) 118 U/L 40-150 AST (SGOT) (BEAKER) (test svqv=036) 11 U/L 5-34 ALT (SGPT) (BEAKER) (test lahu=853) 7 U/L 6-55 [id number] 17:57:00 Test Item Value Reference Range Comments AMMONIA (BEAKER) (test tbul=367) 23 mol/L 18-72 POCT-GLUCOSE [id number] 17:55:00 Test Item Value Reference Range Comments POC-GLUCOSE METER (BEAKER) 137 mg/dL 70-110 TESTED AT [address] (test lsau=7167) [place] [id number] POCT-GLUCOSE [id number] 17:01:00 Test Item Value Reference Range Comments POC-GLUCOSE METER (BEAKER) 62 mg/dL 70-110 TESTED AT [address] (test svlj=0753) [place] [id number] 15:09:00 Test Item Value Reference Range Comments SODIUM (BEAKER) (test johc=673) 138 meq/L 136-145 POTASSIUM (BEAKER) (test 4.0 meq/L 3.5-5.1 Specimen slightly hemolyzed sqes=748) CHLORIDE (BEAKER) (test 105 meq/L 98-107 hhhe=075) CO2 (BEAKER) (test vfzf=627) 23 meq/L 22-29 BLOOD GAS, [id number] 14:56:00 Test Item Value Reference Range Comments PH ARTERIAL (BEAKER) (test iiqs=248) 7.53 7.35-7.45 PCO2 ARTERIAL (BEAKER) (test ltec=070) 35 mmHg 35-45 PO2 ARTERIAL (BEAKER) (test ctdl=608) 70 mmHg 80-90 O2 SATURATION ARTERIAL (BEAKER) (test jfjd=921) 95.5 % 96.0-97.0 HCO3 ARTERIAL (BEAKER) (test ktdv=550) 28 mmol/L 21-29 BASE EXCESS ARTERIAL (BEAKER) (test lono=432) 5.2 mmol/L -2.0-3.0 PATIENT TEMPERATURE (BEAKER) (test whjw=5615) 37.3 C FIO2 (BEAKER) (test tfkh=5669) 21.0 % CBC W/PLT COUNT & AUTO [id number] 14:56:00 Test Item Value Reference Range Comments WHITE BLOOD CELL COUNT (BEAKER) (test zqcf=657) 18.1 K/ L 4.0-10.0 RED BLOOD CELL COUNT (BEAKER) (test wsjh=527) 2.43 M/ L 4.20-5.80 HEMOGLOBIN (BEAKER) (test zptp=099) 7.3 GM/DL 13.0-16.8 HEMATOCRIT (BEAKER) (test ddxn=163) 22.2 % 40.0-50.0 MEAN CORPUSCULAR VOLUME (BEAKER) (test bpvc=833) 91.7 fL 82.0-98.0 MEAN CORPUSCULAR HEMOGLOBIN (BEAKER) (test 30.0 pg 27.0-33.0 oluz=485) MEAN CORPUSCULAR HEMOGLOBIN CONC (BEAKER) (test 32.7 GM/DL 32.0-36.0 ycdb=542) RED CELL DISTRIBUTION WIDTH (BEAKER) (test 15.7 % 10.3-14.2 gqnp=808) PLATELET COUNT (BEAKER) (test ydaz=564) 290 K/CU MM 150-430 MEAN PLATELET VOLUME (BEAKER) (test eupw=487) 6.9 fL 6.5-10.5 NUCLEATED RED BLOOD CELLS (BEAKER) (test 0 /100 WBC 0-0 vekm=973) NEUTROPHILS RELATIVE PERCENT (BEAKER) (test 84 % fotd=572) LYMPHOCYTES RELATIVE PERCENT (BEAKER) (test 8 % ejso=952) MONOCYTES RELATIVE PERCENT (BEAKER) (test 8 % ekvz=484) EOSINOPHILS RELATIVE PERCENT (BEAKER) (test 0 % xszf=854) BASOPHILS RELATIVE PERCENT (BEAKER) (test 0 % jxsu=370) NEUTROPHILS ABSOLUTE COUNT (BEAKER) (test 15.10 K/ L 1.80-8.00 hety=437) LYMPHOCYTES ABSOLUTE COUNT (BEAKER) (test 1.51 K/ L 1.48-4.50 qtvr=888) MONOCYTES ABSOLUTE COUNT (BEAKER) (test 1.43 K/ L 0.00-1.30 qgqw=233) EOSINOPHILS ABSOLUTE COUNT (BEAKER) (test 0.03 K/ L 0.00-0.50 nsjm=544) BASOPHILS ABSOLUTE COUNT (BEAKER) (test 0.02 K/ L 0.00-0.20 bqrw=108) 0.00POCT-GLUCOSE [id number] 12:19:00 Test Item Value Reference Range Comments POC-GLUCOSE METER (BEAKER) 75 mg/dL 70-110 TESTED AT [address] (test uamb=8085) [facility] [address] [id number] 09:59:00 Test Item Value Reference Range Comments HAPTOGLOBIN (BEAKER) (test luip=447) > mg/dL 14-258 Effective 09/08/2014: Reference Range ChangeNew: 14-258 Previous: 36- 195LACTATE DEHYDROGENASE (LDH)2016-12-08 09:56:00 Test Item Value Reference Range Comments LACTATE DEHYDROGENASE (BEAKER) (test jmiz=296) 234 U/L 125-220 [id number] 09:35:00 Test Item Value Reference Range Comments FIBRINOGEN LEVEL (BEAKER) (test ydkq=943) 554 mg/dl 225-434 BASIC METABOLIC [id number] 08:56:00 Test Item Value Reference Range Comments SODIUM (BEAKER) (test 139 meq/L 136-145 kdtj=642) POTASSIUM (BEAKER) (test 3.0 meq/L 3.5-5.1 ovyn=548) CHLORIDE (BEAKER) (test 114 meq/L 98-107 rqnd=128) CO2 (BEAKER) (test 18 meq/L 22-29 aaub=527) BLOOD UREA NITROGEN 14 mg/dL 7-21 (BEAKER) (test hjdj=405) CREATININE (BEAKER) (test 1.68 mg/dL 0.57-1.25 ofhh=909) GLUCOSE RANDOM (BEAKER) 65 mg/dL 70-105 (test tjym=596) CALCIUM (BEAKER) (test 6.3 mg/dL 8.4-10.2 pvao=792) EGFR (BEAKER) (test 42 mL/min/1.73 sq m ESTIMATED GFR IS NOT kafz=5076) ACCURATE CREATININE CLEARANCE IN PREDICTING GLOMERULAR FILTRATION RATE. ESTIMATED GFR IS NOT APPLICABLE FOR DIALYSIS PATIENTS. CBC W/PLT COUNT & AUTO [id number] 08:55:00 Test Item Value Reference Range Comments WHITE BLOOD CELL COUNT (BEAKER) (test haqk=099) 12.8 K/ L 4.0-10.0 RED BLOOD CELL COUNT (BEAKER) (test suuy=925) 1.79 M/ L 4.20-5.80 HEMOGLOBIN (BEAKER) (test pxer=500) 5.4 GM/DL 13.0-16.8 HEMATOCRIT (BEAKER) (test braz=591) 16.7 % 40.0-50.0 MEAN CORPUSCULAR VOLUME (BEAKER) (test przw=309) 93.5 fL 82.0-98.0 MEAN CORPUSCULAR HEMOGLOBIN (BEAKER) (test 30.2 pg 27.0-33.0 zvpq=539) MEAN CORPUSCULAR HEMOGLOBIN CONC (BEAKER) (test 32.3 GM/DL 32.0-36.0 tfnu=846) RED CELL DISTRIBUTION WIDTH (BEAKER) (test 15.9 % 10.3-14.2 zaic=746) PLATELET COUNT (BEAKER) (test vkls=444) 211 K/CU MM 150-430 MEAN PLATELET VOLUME (BEAKER) (test qjrm=539) 6.8 fL 6.5-10.5 NUCLEATED RED BLOOD CELLS (BEAKER) (test 0 /100 WBC 0-0 itqu=956) NEUTROPHILS RELATIVE PERCENT (BEAKER) (test 82 % xvdh=699) LYMPHOCYTES RELATIVE PERCENT (BEAKER) (test 8 % uqjm=387) MONOCYTES RELATIVE PERCENT (BEAKER) (test 9 % chkb=400) EOSINOPHILS RELATIVE PERCENT (BEAKER) (test 0 % vmxy=896) BASOPHILS RELATIVE PERCENT (BEAKER) (test 0 % qnet=742) NEUTROPHILS ABSOLUTE COUNT (BEAKER) (test 10.50 K/ L 1.80-8.00 oifc=772) LYMPHOCYTES ABSOLUTE COUNT (BEAKER) (test 1.08 K/ L 1.48-4.50 emjk=042) MONOCYTES ABSOLUTE COUNT (BEAKER) (test 1.17 K/ L 0.00-1.30 ftsl=288) EOSINOPHILS ABSOLUTE COUNT (BEAKER) (test 0.06 K/ L 0.00-0.50 qost=870) BASOPHILS ABSOLUTE COUNT (BEAKER) (test 0.04 K/ L 0.00-0.20 julw=104) 0.00LACTIC ACID, VENOUS, WHOLE [id number] 08:52:00 Test Item Value Reference Range Comments LACTATE BLOOD VENOUS (2) (BEAKER) (test 0.5 mmol/L 0.5-2.2 visw=7935) Effective 02/23/2016: Units/Reference Range ChangeNew: 0.5-2.2 mmol/L Previous: 5 -20 mg/dLPOCT-GLUCOSE [id number] 07:40:00 Test Item Value Reference Range Comments POC-GLUCOSE METER (BEAKER) 80 mg/dL 70-110 TESTED AT [address] (test fvng=4594) [facility] [address] POCT-GLUCOSE [id number] 21:47:00 Test Item Value Reference Range Comments POC-GLUCOSE METER (BEAKER) 97 mg/dL 70-110 TESTED AT [address] (test hbdm=4388) [facility] [address] POCT-GLUCOSE [id number] 17:45:00 Test Item Value Reference Range Comments POC-GLUCOSE METER (BEAKER) 115 mg/dL 70-110 TESTED AT [address] (test gdfm=6287) [facility] [address] POCT-GLUCOSE [id number] 12:56:00 Test Item Value Reference Range Comments POC-GLUCOSE METER (BEAKER) 120 mg/dL 70-110 TESTED AT [address] (test vnmw=9030) [facility] [address] POCT-GLUCOSE [id number] 12:56:00 Test Item Value Reference Range Comments POC-GLUCOSE METER (BEAKER) 107 mg/dL 70-110 TESTED AT [place] [id number] [facility] (test jscw=1675) [facility] [address] CBC W/PLT COUNT & AUTO [id number] 11:18:00 Test Item Value Reference Range Comments WHITE BLOOD CELL COUNT (BEAKER) (test qiek=003) 21.4 K/ L 4.0-10.0 RED BLOOD CELL COUNT (BEAKER) (test rxoj=837) 2.63 M/ L 4.20-5.80 HEMOGLOBIN (BEAKER) (test mnco=923) 7.5 GM/DL 13.0-16.8 HEMATOCRIT (BEAKER) (test mpxk=963) 24.1 % 40.0-50.0 MEAN CORPUSCULAR VOLUME (BEAKER) (test ffwz=272) 91.8 fL 82.0-98.0 MEAN CORPUSCULAR HEMOGLOBIN (BEAKER) (test 28.6 pg 27.0-33.0 buft=983) MEAN CORPUSCULAR HEMOGLOBIN CONC (BEAKER) (test 31.1 GM/DL 32.0-36.0 tvry=479) RED CELL DISTRIBUTION WIDTH (BEAKER) (test 15.4 % 10.3-14.2 mjyr=524) PLATELET COUNT (BEAKER) (test lklm=406) 297 K/CU MM 150-430 MEAN PLATELET VOLUME (BEAKER) (test qwzf=152) 7.0 fL 6.5-10.5 NUCLEATED RED BLOOD CELLS (BEAKER) (test 0 /100 WBC 0-0 mhqz=421) NEUTROPHILS RELATIVE PERCENT (BEAKER) (test 88 % quzv=513) LYMPHOCYTES RELATIVE PERCENT (BEAKER) (test 6 % mqls=022) MONOCYTES RELATIVE PERCENT (BEAKER) (test 6 % xcxn=089) EOSINOPHILS RELATIVE PERCENT (BEAKER) (test 0 % afef=141) BASOPHILS RELATIVE PERCENT (BEAKER) (test 0 % jmfu=547) NEUTROPHILS ABSOLUTE COUNT (BEAKER) (test 18.90 K/ L 1.80-8.00 gksp=053) LYMPHOCYTES ABSOLUTE COUNT (BEAKER) (test 1.25 K/ L 1.48-4.50 mbkt=784) MONOCYTES ABSOLUTE COUNT (BEAKER) (test 1.26 K/ L 0.00-1.30 upew=397) EOSINOPHILS ABSOLUTE COUNT (BEAKER) (test 0.05 K/ L 0.00-0.50 hbyr=185) BASOPHILS ABSOLUTE COUNT (BEAKER) (test 0.01 K/ L 0.00-0.20 dsac=596) 0.000.520.000.000.560.000.000.000.00(MANUAL DIFFERENTIAL)2016-12-07 11:18:00 Test Item Value Reference Range Comments TOTAL COUNTED (BEAKER) (test ppxn=6674) CATHETER TIP [id number] 09:38:00 Test Item Value Reference Range Comments CULTURE (BEAKER) (test METHICILLIN RESISTANT 15-29 Colonies On tube=0392) STAPHYLOCOCCUS AUREUS Direct Plate Methicillin resistant Staphylococcus aureus Clindamycin (test code=10) Erythromycin (test code=4) Linezolid (test code=40) Oxacillin (test code=14) Rifampin (test code=43) Tetracycline (test code=2) Trimethoprim + Sulfamethoxazole (test code=47) Vancomycin (test code=13) CULTURE (BEAKER) (test <15 Colonies On Direct lcvz=[id number]) Plate Methicillin resistant Staphylococcus aureusof a second type CALCIUM, [id number] 09:12:00 Test Item Value Reference Range Comments CALCIUM IONIZED (BEAKER) (test endg=885) 1.04 mmol/L 1.12-1.27 PH, BLOOD (BEAKER) (test bvlb=1188) 7.40 BASIC METABOLIC [id number] 07:52:00 Test Item Value Reference Range Comments SODIUM (BEAKER) (test 134 meq/L 136-145 cham=180) POTASSIUM (BEAKER) (test 4.1 meq/L 3.5-5.1 iads=996) CHLORIDE (BEAKER) (test 103 meq/L 98-107 hjie=986) CO2 (BEAKER) (test 20 meq/L 22-29 loed=401) BLOOD UREA NITROGEN 37 mg/dL 7-21 (BEAKER) (test laky=694) CREATININE (BEAKER) (test 3.25 mg/dL 0.57-1.25 fvzb=695) GLUCOSE RANDOM (BEAKER) 129 mg/dL 70-105 (test ljwh=477) CALCIUM (BEAKER) (test 8.1 mg/dL 8.4-10.2 vyzr=620) EGFR (BEAKER) (test 20 mL/min/1.73 sq m ESTIMATED GFR IS NOT loep=1364) ACCURATE CREATININE CLEARANCE IN PREDICTING GLOMERULAR FILTRATION RATE. ESTIMATED GFR IS NOT APPLICABLE FOR DIALYSIS PATIENTS. [id number] 07:48:00 Test Item Value Reference Range Comments PHOSPHORUS (BEAKER) (test taub=806) 4.8 mg/dL 2.3-4.7 [id number] 07:48:00 Test Item Value Reference Range Comments MAGNESIUM (BEAKER) (test ayfw=486) 1.9 mg/dL 1.6-2.6 ANAEROBIC [id number] 02:42:00 Test Item Value Reference Range Comments CULTURE (BEAKER) (test cpmi=5671) No anaerobes isolated POCT-GLUCOSE [id number] 20:57:00 Test Item Value Reference Range Comments POC-GLUCOSE METER (BEAKER) 191 mg/dL 70-110 TESTED AT [address] (test mcuj=6249) [place] [address] VANCOMYCIN LEVEL, [id number] 17:35:00 Test Item Value Reference Range Comments VANCOMYCIN RANDOM (BEAKER) (test jgaq=078) 21.9 ug/mL Reference Range: No NormalsPOCT-GLUCOSE [id number] 13:28:00 Test Item Value Reference Range Comments POC-GLUCOSE METER (BEAKER) 202 mg/dL 70-110 TESTED AT [address] (test iupg=6239) [place] [id number] POCT-GLUCOSE [id number] 08:30:00 Test Item Value Reference Range Comments POC-GLUCOSE METER (BEAKER) 144 mg/dL 70-110 TESTED AT [address] (test emoq=1788) [place] [id number] BASIC METABOLIC [id number] 07:04:00 Test Item Value Reference Range Comments SODIUM (BEAKER) (test 134 meq/L 136-145 jemx=870) POTASSIUM (BEAKER) (test 3.8 meq/L 3.5-5.1 izsx=232) CHLORIDE (BEAKER) (test 104 meq/L 98-107 rwbi=140) CO2 (BEAKER) (test 21 meq/L 22-29 xxqu=879) BLOOD UREA NITROGEN 33 mg/dL 7-21 (BEAKER) (test mlxx=299) CREATININE (BEAKER) (test 2.91 mg/dL 0.57-1.25 heye=653) GLUCOSE RANDOM (BEAKER) 124 mg/dL 70-105 (test tzop=610) CALCIUM (BEAKER) (test 7.8 mg/dL 8.4-10.2 cspf=676) EGFR (BEAKER) (test 22 mL/min/1.73 sq m ESTIMATED GFR IS NOT ksqf=2454) ACCURATE CREATININE CLEARANCE IN PREDICTING GLOMERULAR FILTRATION RATE. ESTIMATED GFR IS NOT APPLICABLE FOR DIALYSIS PATIENTS. PROTHROMBIN [id number] 07:03:00 Test Item Value Reference Range Comments PROTIME (BEAKER) (test fnqe=620) 14.7 seconds 11.7-14.7 INR (BEAKER) (test kcbr=360) 1.2 <=5.9 RECOMMENDED COUMADIN/WARFARIN INR THERAPY RANGESSTANDARD DOSE: 2.0 - 3.0 Includes: PROPHYLAXIS forvenous thrombosis, systemic embolization; TREATMENT for venous thrombosis and/or pulmonary embolus.HIGH RISK: Target INR is 2.5-3.5 for patients with mechanical heart valves.[id number] 07:01:00 Test Item Value Reference Range Comments PHOSPHORUS (BEAKER) (test jkws=816) 3.9 mg/dL 2.3-4.7 [id number] 07:01:00 Test Item Value Reference Range Comments MAGNESIUM (BEAKER) (test wcku=173) 1.7 mg/dL 1.6-2.6 CALCIUM, [id number] 06:45:00 Test Item Value Reference Range Comments CALCIUM IONIZED (BEAKER) (test qsbj=838) 1.00 mmol/L 1.12-1.27 PH, BLOOD (BEAKER) (test idkb=5146) 7.43 POCT-GLUCOSE [id number] 21:06:00 Test Item Value Reference Range Comments POC-GLUCOSE METER (BEAKER) 167 mg/dL 70-110 TESTED AT [facility] [address] [facility] (test qvzd=6322) [facility] [address] POCT-GLUCOSE [id number] 17:43:00 Test Item Value Reference Range Comments POC-GLUCOSE METER (BEAKER) 212 mg/dL 70-110 TESTED AT [facility] [address] (test xcnm=8390) [facility] [address]
--- NOTE | 2018-11-07 12:45 | RAD REPORT ---
EXAM DESCRIPTION: RADMaureent Pa And Lat (2 Views)11/07/2018 12:27 pm CLINICAL HISTORY: Shortness of breath COMPARISON: September 2018 FINDINGS: A moderate partially loculated left pleural effusion is suspected. Left lung opacities probably represent pneumonia. Mild additional lung opacities probably represent mild interstitial pulmonary edema. Heart remains enlarged. A central venous catheter remains in place
[2018-11-07] MEDS ORDERED: LEVALBUTEROL 1.25 MG/3 ML NEB ONE (13:35)
[2018-11-07] MEDS ORDERED: LORazepam 2 MG/ML VIAL ONE (13:35)
[2018-11-07 13:44] LABS: Albumin 2.4 g/dL (3.4-5.0); Bilirubin Direct 0.1 mg/dL (0-0.2); Bilirubin Total 0.5 mg/dL (0.2-1.0); Potassium 3.8 mmol/L (3.5-5.1); Protein, Total 8.4 g/dL (6.4-8.2)
[2018-11-07 13:53] LABS: Protime INR 1.12
[2018-11-07 13:59] LABS: Absolute Lymphocytes (CBC) 1.2 K/uL (0.7-4.9); Absolute Monocytes 1.4 K/uL (0.1-1.3); Basophils % 0.5 % (0-1.3); Eosinophils % 0.8 % (0-4.4); Hematocrit 29.3 % (39.6-49.0); Lymphocytes % 5.1 % (15.3-44.8); MPV 7.9 fL (7.6-11.3); Monocytes % 6.2 % (3.3-12.3); RBC Red Blood Cell Count 3.46 M/uL (4.33-5.43)
--- NOTE | 2018-11-07 14:45 | ER ---
Nurse's Notes [facility] Name: Federico Martinez Age: 58 yrs Sex: Male : 1960 Arrival Date: 11/07/2018 Time: 10:50 Bed 3 Private MD: Diagnosis: Pneumonia, unspecified organism;Sepsis, unspecified organism;Ventricular tachycardia-s/p CPR - return of spontaneous circulation Presentation: 11/07 10:51 Presenting complaint: EMS states: Sudden onset of shortness of breath that began after ph dialysis, Spo2 98% on RA, placed on 2L NC for comfort and reports that symptoms improved, hypertensive at 200/110s, denies chest pain. Transition of care: patient was not received from another setting of care. Onset of symptoms was November 07, 2018. Risk Assessment: Do you want to hurt yourself or someone else? Patient reports no desire to harm self or others. Initial Sepsis Screen: Does the patient meet any 2 criteria? No. Patient's initial sepsis screen is negative. Care prior to arrival: None. 10:51 Method Of Arrival: EMS: [facility] 10:51 Acuity: CHARLES 3 ph 10:51 Initial Sepsis Screen: Does the patient have a suspected source of infection? Yes: ph Productive cough/pneumonia. 18:47 Acuity: CHARLES 1 ph 18:51 Compressions began at 18:15. ph Historical: - Allergies: 10:57 No Known Allergies; ph - Home Meds: 10:57 albuterol sulfate 2.5 mg /3 mL (0.083 %) Inhl nebu 3 mL q6hrs prn [Active]; amiodarone ph 200 mg Oral tab 1 tab once daily [Active]; arformoterol inhalation 2 times per day [Active]; Atrovent Inhl q 4 hrs prn sob [Active]; carvedilol 6.25 mg Oral tab 1 tab 2 times per day [Active]; Cymbalta 30 mg Oral cpDR 1 cap once daily [Active]; fentanyl 25 mcg/hr Topical pt72 1 patch every 72 hours [Active]; ferrous sulfate 324 mg (65 mg iron) Oral TbEC daily [Active]; Geodon 20 mg Oral cap 1 cap 2 times per day [Active]; nifedipine 60 mg Oral tr24 1 tab twice a day [Active]; Fordyce 7.5-325 mg Oral tab 1 tab every 6 hours as needed [Active]; Protonix 40 mg Oral TbEC 1 tab 2 times per day [Active]; ramipril 10 mg Oral cap 1 cap nightly [Active]; Simethicone Oral as needed [Active]; Vitamin D3 5,000 unit Oral tab daily [Active]; Zofran (as hydrochloride) 4 mg Oral tab 1 tabs every 4 hours as needed [Active]; - PMHx: 10:57 Anemia; Anxiety; Asthma; Atherosclerotic heart disease; Bipolar disorder; CHF; COPD; ph Dementia; Depression; Diabetes - IDDM; ESRD; GERD; GI Hemorrhage; Hypertension; insomnia; osteomyelitis; Paraplegia; Parkinsons; Post Laminectomy Syndrome; pressure ulcer of left ankle stage II; Pressure ulcer of right ankle, stage II; Sacral Pressure Ulcer Stage III; Schizophrenia; - Immunization history:: Adult Immunizations unknown. - Social history:: Smoking status: Patient/guardian denies using tobacco. - Ebola Screening: : No symptoms or risks identified at this time. Screenin:48 Abuse screen: Denies threats or abuse. Denies injuries from another. Nutritional ph screening: No deficits noted. Tuberculosis screening: No symptoms or risk factors identified. Fall Risk Secondary diagnosis (15 points) dementia, impaired mobility, CVA, IV access (20 points). Ambulatory Aid- None/Bed Rest/Nurse Assist (0 pts). Gait- Impaired (20 pts.). Mental Status- Overestimates/Forgets Limitations (15 pts.). Total Abarca Fall Scale indicates High Risk Score (45 or more points). Fall prevention measures have been instituted. Side Rails Up X 2 Placed Close to Nursing Station Frequent Obs/Assessments Occuring As available patient and family educated on Fall Prevention Program and Strategies. Assessment: 11:15 General: Appears in no apparent distress. comfortable, Behavior is calm, cooperative, ph quiet, Denies fever, feeling ill. Pain: Denies pain. Neuro: Level of Consciousness is awake, obeys commands, Oriented to person, place, situation. Cardiovascular: Denies chest pain, Capillary refill < 3 seconds in bilateral fingers Patient's skin is warm and dry. Rhythm is sinus rhythm. Respiratory: Reports shortness of breath Airway is patent Respiratory effort is even, unlabored, Respiratory pattern is regular, symmetrical, Breath sounds are coarse in left lower lobe. 11:15 GI: No signs and/or symptoms were reported involving the gastrointestinal system. Derm: ph Skin is fragile, is thin, Skin is pink, warm \\T\\ dry. 12:30 Reassessment: Patient appears in no apparent distress at this time. Patient and/or ph family updated on plan of care and expected duration. Pain level reassessed. Patient is alert, oriented x 3, equal unlabored respirations, skin warm/dry/pink. Pt resting quietly, awaiting CXR results. 13:10 Reassessment: Patient appears in no apparent distress at this time. Patient and/or ph family updated on plan of care and expected duration. Pain level reassessed. Patient is alert, oriented x 3, equal unlabored respirations, skin warm/dry/pink. General: Appears uncomfortable, Behavior is anxious, Pt states, " I just don't feel good. Can someone please stay w/ me and hold my hand?" Audible wheezes also noted, ERP notified, see MAR. 14:26 Reassessment: Patient appears in no apparent distress at this time. Patient and/or ph family updated on plan of care and expected duration. Pain level reassessed. Pt asleep w/ even respirations, tachypneic at 24 bpm, awakens easily, denies pain at this time, awaiting lab results and room assignment. 16:00 Reassessment: Patient appears in no apparent distress at this time. Patient and/or ph family updated on plan of care and expected duration. Pain level reassessed. Patient is alert, oriented x 3, equal unlabored respirations, skin warm/dry/pink. Pt resting quietly, no complaints at this time, awaiting transfer. 17:15 Reassessment: Patient appears in no apparent distress at this time. Patient and/or ph family updated on plan of care and expected duration. Pain level reassessed. Patient is alert, oriented x 3, equal unlabored respirations, skin warm/dry/pink. Pt c/o nausea, ERP notified, see MAR. 18:08 Reassessment: Report given to EMS, pt to be prepared for transport. 18:12 Reassessment: Pt's rhythm is VTACH heart rate is 107 initially. Responded to patient's ss room immediately and found patient minimally responsive HR now 210, grunting. Code 99 called. Code team responded immediately. 18:15 CPR assessment: unresponsive, Ambu ventilation. ph 18:17 Reassessment: Pt defibrillated w/ 200 joules, rhythm changed to Torsades, CPR ph continued. Cardiovascular: Rhythm is ventricular tachycardia. 18:18 Reassessment: Defibrillated w/ 200 joules, rhythm asystole, CPR continued. ph 18:24 Reassessment: Defibrillated w/ 200 joules, rhythm remains asystole. ph 18:25 Reassessment: Defibrillated w/ 200 joules, rhythm PEA. ph 18:30 Reassessment: ROSC achieved, HR 50 bpm w/ central pulse plapable. ph 18:30 Reassessment: NRB \\T\\ 15 L NC administered at this time. Dr. Hooks speaking with family.ss 18:46 Reassessment: Family at bedside, patient is awake, disoriented. Following commands. 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 out of hospital DNR signed by pt's daughter and Dr. Hooks, ER physicians with two witnesses. 19:20 Reassessment: Ronel at bedside to discuss admission status. Pt reports pain in back. ed1 Patient repositioned with pillows for comfort. Family update on plan of care. 19:50 Reassessment: Family updated on admission status and room assignment. ed1 20:00 Reassessment: Patient appears in no apparent distress at this time. Patient and/or ed1 family updated on plan of care and expected duration. Pain level reassessed. Patient is alert, oriented x 3, equal unlabored respirations, skin warm/dry/pink. Pt reports back pain. Repositioned for comfort. Respiratory: Airway is patent Respiratory effort is even, unlabored, Respiratory pattern is regular, symmetrical. 21:00 Reassessment: Patient appears in no apparent distress at this time. Patient and/or ed1 family updated on plan of care and expected duration. Pain level reassessed. Patient is alert, oriented x 3, equal unlabored respirations, skin warm/dry/pink. Vital Signs: 10:53 BP 204 / 93; Pulse 76; Resp 20; Temp 98.3; Pulse Ox 98% on R/A; ph 12:00 BP 197 / 90; Pulse 73; Resp 22; Pulse Ox 98% on 2 lpm NC; ph 13:33 BP 187 / 94; Pulse 82; Resp 22; Pulse Ox 100% on Nebulizer Mask; ph 14:30 BP 195 / 74; Pulse 83; Resp 24; Pulse Ox 98% on 2 lpm NC; ph 15:30 BP 170 / 83; Pulse 85; Resp 17; Pulse Ox 100% on 2 lpm NC; dh3 16:30 BP 184 / 90; Pulse 83; Resp 16; Pulse Ox 100% on 2 lpm NC; ph 17:30 BP 168 / 104; Pulse 98; Resp 22; Pulse Ox 97% on 2 lpm NC; ph 18:30 BP 188 / 85; Pulse 54; Resp 12; Pulse Ox 99% on Non-rebreather mask; ph 18:40 BP 217 / 93; Pulse 88; Resp 18; Pulse Ox 100% on 100% Non-rebreather mask; ph 19:20 BP 154 / 82; Pulse 74; Resp 20; Temp 98.2(A); Pulse Ox 100% on 15% Non-rebreather mask; ed1 Pain 6/10; 20:00 BP 156 / 74; Pulse 71; Resp 22; Pulse Ox 100% on 15% Non-rebreather mask; ed1 20:30 BP 165 / 82; Pulse 71; Resp 17; Pulse Ox 100% on 15% Non-rebreather mask; ed1 21:00 BP 160 / 82; Pulse 73; Resp 22; Pulse Ox 100% on 15% Non-rebreather mask; ed1 ED Course: 10:50 Patient arrived in ED. ph 10:53 Triage completed. ph 10:58 Arm band placed on. ph 11:30 [facility] snw 11:30 Kalia Hooks MD is Attending Physician. snw 11:31 EKG done, by power tool repair technician. reviewed by Kalia Hooks MD. sm3 12:19 X-ray completed. Patient tolerated procedure well. Patient moved to radiology via jb2 stretcher. Patient moved back from radiology. 12:23 Chest Pa And Lat (2 Views) XRAY In Process Unspecified. EDMS 12:30 Patient has correct armband on for positive identification. Placed in gown. Bed in low ph position. Call light in reach. Side rails up X2. bus driver/monitor on. Pulse ox on. NIBP on. Door closed. Lights dimmed. Warm blanket given. 12:32 Greer Fletcher, RN is Primary Nurse. ph 13:14 Initial lab(s) drawn, by me, sent to lab. First set of blood cultures drawn by me. dh3 Inserted saline lock: 18 gauge in right antecubital area, using aseptic technique. Blood collected. 13:30 Second set of blood cultures drawn by me. dh3 14:44 Valery Norman MD is Hospitalizing Provider. snw 15:17 initiated a transfer with Ana at the [facility] transfer center. eb 15:[address] Flores with Ronel BLOCKER HAND for patient transfer eb consulation. 17:17 No provider procedures requiring assistance completed. sg 19:13 Patient admitted, IV remains in place. ph 19:20 Valery Norman MD is Hospitalizing Provider. snw Administered Medications: 13:32 Drug: Xopenex (3) 1.25 mg Route: Inhalation; ph 14:30 Follow up: Response: No adverse reaction ph 13:32 Drug: Ativan 0.5 mg Route: IVP; Site: right antecubital; ph 14:00 Follow up: Response: No adverse reaction; Anxiety decreased ph 15:57 Drug: Cefepime 1 grams Route: IVPB; Rate: 200 ml/hr; Infused Over: 30 mins; Site: right dm5 antecubital; 16:30 Follow up: Response: No adverse reaction; IV Status: Completed infusion ph 17:27 Drug: Zofran 4 mg Route: IVP; Site: right antecubital; ph 17:45 Follow up: Response: No adverse reaction ph 18:21 Drug: amiodarone 300 mg Route: IVP; Site: right antecubital; ph 18:23 Follow up: Response: No adverse reaction; Cardiac rhythm is unchanged ph 18:29 Drug: D50W 50 ml Route: IVP; Site: right antecubital; ph 19:40 Follow up: Response: No adverse reaction ph 18:31 Drug: Atropine 0.5 mg Route: IVP; Site: right antecubital; ph 18:35 Follow up: Response: No adverse reaction; Cardiac rhythm changed ph 19:39 Drug: fentaNYL (PF) 12.5 mcg Route: IVP; Site: right antecubital; ed1 Point of Care Testing: Blood Glucose: 11:45 Blood Glucose: 96 mg/dL; dh3 18:29 Blood Glucose: 141 mg/dL; Ranges: Outcome: 14:44 Decision to Hospitalize by Provider. snw 15:35 ER care complete, transfer ordered by MD. snw 17:15 Transferred Note: Report called to LIZABETH Francisco receiving nurse for 910 sg 17:15 Condition: stable 17:15 Instructed on the need for transfer. 18:30 Outcome Resuscitation successful ph 19:23 Decision to Hospitalize by Provider. snw 21:08 Patient left the ED. ed1 Signatures: Dispatcher [employer] EDMS Sabrina Pacheco, RN RN dm5 Gonzalo Beaulieu RN RN sg Ronel Galvan, SOUND EQUIPMENT MECHANIC-C SOUND EQUIPMENT MECHANIC-Csnw Chandrakant Goldman jb2 Manuela Pickens RN RN Domi Grimaldo RN RN ed1 Greer Fletcher RN RN Melvi Lee 3 Dayanna Garcia Shakira 3 Corrections: (The following items were deleted from the chart) 14:45 11:15 Respiratory: Reports shortness of breath Airway is patent Respiratory effort is ph even, unlabored, Respiratory pattern is regular, symmetrical, Breath sounds are coarse bilaterally. ph 20:03 19:20 BP 154 / 82; Pulse 74bpm; Resp 20bpm; Pulse Ox 100% 02 15% Non-rebreather mask; ed1 Pain 6/10; ed1
--- NOTE | 2018-11-07 14:45 | EDPHYS ---
Physician Documentation [facility] Name: Federico Martinez Age: 58 yrs Sex: Male : 1960 Arrival Date: 11/07/2018 Time: 10:50 Bed 3 Private MD: ED Physician Kalia Hooks HPI: 11/07 12:22 This 58 yrs old Male presents to ER via EMS with complaints of Shortness Of snw Breath. 12:22 The patient has shortness of breath just post dialysis, . Onset: The symptoms/episode snw began/occurred suddenly, just prior to arrival. Duration: The symptoms are continuous, but are steadily getting better, but are markedly better than the original presentation. Associated signs and symptoms: The patient has no apparent associated signs or symptoms. Severity of symptoms: At their worst the symptoms were moderate in the emergency department the symptoms have resolved. The patient has experienced similar episodes in the past. It is unknown whether or not the patient has recently seen a physician. Historical: - Allergies: 10:57 No Known Allergies; ph - Home Meds: 10:57 albuterol sulfate 2.5 mg /3 mL (0.083 %) Inhl nebu 3 mL q6hrs prn [Active]; amiodarone ph 200 mg Oral tab 1 tab once daily [Active]; arformoterol inhalation 2 times per day [Active]; Atrovent Inhl q 4 hrs prn sob [Active]; carvedilol 6.25 mg Oral tab 1 tab 2 times per day [Active]; Cymbalta 30 mg Oral cpDR 1 cap once daily [Active]; fentanyl 25 mcg/hr Topical pt72 1 patch every 72 hours [Active]; ferrous sulfate 324 mg (65 mg iron) Oral TbEC daily [Active]; Geodon 20 mg Oral cap 1 cap 2 times per day [Active]; nifedipine 60 mg Oral tr24 1 tab twice a day [Active]; [place] 7.5-325 mg Oral tab 1 tab every 6 hours as needed [Active]; Protonix 40 mg Oral TbEC 1 tab 2 times per day [Active]; ramipril 10 mg Oral cap 1 cap nightly [Active]; Simethicone Oral as needed [Active]; Vitamin D3 5,000 unit Oral tab daily [Active]; Zofran (as hydrochloride) 4 mg Oral tab 1 tabs every 4 hours as needed [Active]; - PMHx: 10:57 Anemia; Anxiety; Asthma; Atherosclerotic heart disease; Bipolar disorder; CHF; COPD; ph Dementia; Depression; Diabetes - IDDM; ESRD; GERD; GI Hemorrhage; Hypertension; insomnia; osteomyelitis; Paraplegia; Parkinsons; Post Laminectomy Syndrome; pressure ulcer of left ankle stage II; Pressure ulcer of right ankle, stage II; Sacral Pressure Ulcer Stage III; Schizophrenia; - Immunization history:: Adult Immunizations unknown. - Social history:: Smoking status: Patient/guardian denies using tobacco. - Ebola Screening: : No symptoms or risks identified at this time. ROS: 12:21 Constitutional: Negative for fever, chills, and weight loss, Eyes: Negative for injury, snw pain, redness, and discharge, ENT: Negative for injury, pain, and discharge, Neck: Negative for injury, pain, and swelling, Cardiovascular: Negative for chest pain, palpitations, and edema, dusky coloration Respiratory: Negative for shortness of breath, cough, wheezing, and pleuritic chest pain, Abdomen/GI: Negative for abdominal pain, nausea, vomiting, diarrhea, and constipation, Back: Negative for injury and pain, : Negative for injury, bleeding, discharge, and swelling, MS/Extremity: Negative for injury and deformity, Skin: Negative for injury, rash, and discoloration, Neuro: Negative for headache, weakness, numbness, tingling, and seizure. Exam: 12:18 Head/Face: Normocephalic, atraumatic. Eyes: Pupils equal round and reactive to light, snw extra-ocular motions intact. Lids and lashes normal. Conjunctiva and sclera are non-icteric and not injected. Cornea within normal limits. Periorbital areas with no swelling, redness, or edema. ENT: Nares patent. No nasal discharge, no septal abnormalities noted. Tympanic membranes are normal and external auditory canals are clear. Oropharynx with no redness, swelling, or masses, exudates, or evidence of obstruction, uvula midline. Mucous membranes moist. Neck: Trachea midline, no thyromegaly or masses palpated, and no cervical lymphadenopathy. Supple, full range of motion without nuchal rigidity, or vertebral point tenderness. No Meningismus. Chest/axilla: Normal chest wall appearance and motion. Nontender with no deformity. No lesions are appreciated. 12:18 Constitutional: The patient appears awake, unkempt, answers questions, states he feels okay, breathing easier Vital Signs: 10:53 BP 204 / 93; Pulse 76; Resp 20; Temp 98.3; Pulse Ox 98% on R/A; ph 12:00 BP 197 / 90; Pulse 73; Resp 22; Pulse Ox 98% on 2 lpm NC; ph 13:33 BP 187 / 94; Pulse 82; Resp 22; Pulse Ox 100% on Nebulizer Mask; ph 14:30 BP 195 / 74; Pulse 83; Resp 24; Pulse Ox 98% on 2 lpm NC; ph 15:30 BP 170 / 83; Pulse 85; Resp 17; Pulse Ox 100% on 2 lpm NC; dh3 16:30 BP 184 / 90; Pulse 83; Resp 16; Pulse Ox 100% on 2 lpm NC; ph 17:30 BP 168 / 104; Pulse 98; Resp 22; Pulse Ox 97% on 2 lpm NC; ph 18:30 BP 188 / 85; Pulse 54; Resp 12; Pulse Ox 99% on Non-rebreather mask; ph 18:40 BP 217 / 93; Pulse 88; Resp 18; Pulse Ox 100% on 100% Non-rebreather mask; ph 19:20 BP 154 / 82; Pulse 74; Resp 20; Temp 98.2(A); Pulse Ox 100% on 15% Non-rebreather mask; ed1 Pain 6/10; 20:00 BP 156 / 74; Pulse 71; Resp 22; Pulse Ox 100% on 15% Non-rebreather mask; ed1 20:30 BP 165 / 82; Pulse 71; Resp 17; Pulse Ox 100% on 15% Non-rebreather mask; ed1 21:00 BP 160 / 82; Pulse 73; Resp 22; Pulse Ox 100% on 15% Non-rebreather mask; ed1 MDM: 11:30 Patient medically screened. snw 14:43 Data reviewed: vital signs, nurses notes. Data interpreted: Pulse oximetry: on room air snw is 95 %. Interpretation: hypoxia. Counseling: I had a detailed discussion with the patient and/or guardian regarding: the historical points, exam findings, and any diagnostic results supporting the discharge/admit diagnosis, the presence of at least one elevated blood pressure reading (>120/80) during this emergency department visit, lab results, radiology results, the need for further work-up and treatment in the hospital. Physician consultation: Valery Norman MD was called at 14:44, was contacted at 14:44, regarding admission, to the telemetry unit. 15:31 Counseling: I had a detailed discussion with the patient and/or guardian regarding: the snw historical points, exam findings, and any diagnostic results supporting the discharge/admit diagnosis. Physician consultation: Dr Flores was called at 15:33, was contacted at 15:33, regarding regarding transfer, Dr. Flores kindly accepts pt in transfer. 19:06 ED course: Run of VT with and then without a pulse. CPR begun. Defib at 200j, short run snw of Torsade's, Amiodarone given 300mg, CPR continues. Family arrives to ED, states pt is DNR. Dr. Hooks discussed with family need to decide if pt to be intubated and full code continue or chemical code only with no intubation. Pt family wants chemical code only, no intubation. Continued defibrillation attempts ultimately successful in spontaneous return of circulation at rate of 47bpm. D50 given IVP, atropine 0.5mg IVP. Pt and family understand prognosis and wish to remain at [facility] with initiation of Hospice.. 11/07 11:48 Order name: Glucose, Ancillary Testing; Complete Time: 11:52 EDMS 11/07 12:57 Order name: Basic Metabolic Panel; Complete Time: 13:49 w 11/07 12:57 Order name: Blood Culture Adult (2) [facility] 11/07 12:57 Order name: CBC with Diff; Complete Time: 19:06 snw 11/07 12:57 Order name: CPK; Complete Time: 13:49 snw 11/07 12:57 Order name: Lactate; Complete Time: 13:49 w 11/07 11:31 Order name: Chest Pa And Lat (2 Views) XRAY; Complete Time: 12:53 snw 11/07 12:57 Order name: LFT's; Complete Time: 13:49 w 11/07 12:57 Order name: Procalcitonin; Complete Time: 14:21 snw 11/07 12:57 Order name: Protime (+inr); Complete Time: 13:56 snw 11/07 12:57 Order name: Ptt, Activated; Complete Time: 13:56 snw 11/07 14:07 Order name: Manual Differential; Complete Time: 19:06 EDMS 11/07 15:52 Order name: Urine Dipstick-Ancillary; Complete Time: 19:06 EDMS 11/07 19:14 Order name: Glucose, Ancillary Testing; Complete Time: 19:23 EDMS 11/07 11:31 Order name: EKG; Complete Time: 11:32 snw 11/07 11:31 Order name: EKG - Nurse/Tech; Complete Time: 12:52 snw 11/07 11:38 Order name: Finger Stick; Complete Time: 11:47 dh3 11/07 12:57 Order name: Cardiac monitoring; Complete Time: 13:20 snw 11/07 12:57 Order name: IV Saline Lock - Large Bore; Complete Time: 13:20 snw 11/07 12:57 Order name: Labs collected and sent; Complete Time: 13:21 snw 11/07 12:57 Order name: O2 Per Protocol; Complete Time: 13:21 snw 11/07 12:57 Order name: O2 Sat Monitoring; Complete Time: 13:21 snw Administered Medications: 13:32 Drug: Xopenex (3) 1.25 mg Route: Inhalation; ph 14:30 Follow up: Response: No adverse reaction ph 13:32 Drug: Ativan 0.5 mg Route: IVP; Site: right antecubital; ph 14:00 Follow up: Response: No adverse reaction; Anxiety decreased ph 15:57 Drug: Cefepime 1 grams Route: IVPB; Rate: 200 ml/hr; Infused Over: 30 mins; Site: right dm5 antecubital; 16:30 Follow up: Response: No adverse reaction; IV Status: Completed infusion ph 17:27 Drug: Zofran 4 mg Route: IVP; Site: right antecubital; ph 17:45 Follow up: Response: No adverse reaction ph 18:21 Drug: amiodarone 300 mg Route: IVP; Site: right antecubital; ph 18:23 Follow up: Response: No adverse reaction; Cardiac rhythm is unchanged ph 18:29 Drug: D50W 50 ml Route: IVP; Site: right antecubital; ph 19:40 Follow up: Response: No adverse reaction ph 18:31 Drug: Atropine 0.5 mg Route: IVP; Site: right antecubital; ph 18:35 Follow up: Response: No adverse reaction; Cardiac rhythm changed ph 19:39 Drug: fentaNYL (PF) 12.5 mcg Route: IVP; Site: right antecubital; ed1 Point of Care Testing: Blood Glucose: 11:45 Blood Glucose: 96 mg/dL; dh3 18:29 Blood Glucose: 141 mg/dL; ss Ranges: Critical Glucose Levels:Adult <50 mg/dl or >400 mg/dl <40 mg/dl or >180 mg/dl Disposition: 11/07/18 19:23 Hospitalization ordered by Valery Norman for Inpatient Admission. Preliminary diagnosis are Pneumonia, unspecified organism, Sepsis, unspecified organism, Ventricular tachycardia - s/p CPR - return of spontaneous circulation. - Bed requested for Telemetry/MedSurg (Inpatient). - Status is Inpatient Admission. ed1 - Condition is Critical. - Problem is an ongoing problem. - Symptoms have worsened. UTI on Admission? No Addendum: 11/14/2018 09:34 Co-signature as Attending Physician, Kalia Hooks MD I agree with the assessment and k dr plan of care. Signatures: Dispatcher [employer] EDUT Sabrina Pacheco, RN LIZABETH dm5 Marine Lawson RN LIZABETH Kalia Hooks MD MD [facility] Ronel Galvan, CENTRAL OFFICE EQUIPMENT INSTALLER-C CENTRAL OFFICE EQUIPMENT INSTALLER-Csnw Domi Grimaldo RN RN ed1 Greer Fletcher RN LIZABETH Melvi Lee 3 Corrections: (The following items were deleted from the chart) 11/07 15:01 14:52 Thorax Wo Con ordered. EDUT EDUT 15:34 14:44 Hospitalization Ordered by Valery Norman MD for Inpatient Admission. Preliminary snw diagnosis is Pneumonia, unspecified organism. Bed requested for Telemetry/MedSurg (Inpatient). Status is Inpatient Admission. Condition is Stable. Problem is new. Symptoms have worsened. UTI on Admission? No. snw 19:20 19:06 ED course: Run of VT with and then without a pulse. CPR begun. snw snw 19:20 15:35 11/07/2018 15:[address] [facility]. Diagnosis is snw Pneumonia, unspecified organism - Loculated; Recent discharge from [facility] post laminectomy. Reason for transfer: Higher level of care. Accepting physician is Dr. Flores. Condition is Stable. Problem is an acute exacerbation. Symptoms have worsened. [facility] 19:44 19:23 Hospitalization Ordered by Valery Norman MD for Inpatient Admission. Preliminary mw diagnosis is Pneumonia, unspecified organism; Sepsis, unspecified organism; Ventricular tachycardia - s/p CPR - return of spontaneous circulation. Bed requested for Telemetry/MedSurg (Inpatient). Status is Inpatient Admission. Condition is Critical. Problem is an ongoing problem. Symptoms have worsened. UTI on Admission? No. [facility] 20:02 12:57 Urine Dipstick-Ancillary ordered. [facility] ed1 21:08 19:44 11/07/2018 19:23 Hospitalization Ordered by Valery Norman MD for Inpatient ed1 Admission. Preliminary diagnosis is Pneumonia, unspecified organism; Sepsis, unspecified organism; Ventricular tachycardia - s/p CPR - return of spontaneous circulation. Bed requested for Telemetry/MedSurg (Inpatient). Status is Inpatient Admission. Condition is Critical. Problem is an ongoing problem. Symptoms have worsened. UTI on Admission? No. mw
--- NOTE | 2018-11-07 15:57 | P.CNS ---
Date of Consult: 11/07/18 Mr. Martinez is a 58-year-old male with extensive past medical history who was recently discharged from [facility] on 11/06/2018 after having a laminectomy done and treatment for epidural abscess who was at the hemodialysis center today and started having shortness of breath post hemodialysis and thus was brought over to the hospital for further care. ER contacted the medicine team to admit the patient for possibility of pneumonia on the chest x-ray along with elevated white count and pro calcitonin level. Lab work was reviewed from [facility] along with a chest x-ray that was done in the ER. Pulmonology was called by the hospitalist team and films were reviewed. At this time Patient does not appear to have pneumonia on the chest x-ray and his white count and elevated pro calcitonin would be secondary to the laminectomy versus his loculated pleural effusion. He was suppose to get VETS procedure at the during the last hospital stay however was not able to get done at the [facility] for unknown reason. After consulting with the specialist the decision was made to transfer the patient from the ER to higher level of care for possible vats procedure vs complication from laminectomy. Patient requires neurosurgery and thoracic surgery coverage for appropriate care and does need to be transferred to higher level of care. ER nurse practitioner was contacted and notified. ER has started the transfer process.
[2018-11-07] MEDS ORDERED: CEFEPIME 1 GM/100 ML BAG IV ONE (15:58)
[2018-11-07] MEDS ORDERED: ONDANSETRON 4 MG/2 ML VIAL ONE (17:21)
[2018-11-07] MEDS ORDERED: MIDAZOLAM HCL 2 MG/2 ML INJ ONE ×2 (18:29→18:30)
[2018-11-07] MEDS ORDERED: RSI MEDICATION KIT IV ONE (18:29)
[2018-11-07 18:56] LABS: Urine Blood 2+ (NEG); Urine Glucose NEGATIVE (NEG); Urine Protein NEGATIVE (NEG); Urine Specific Gravity 1.015 (1.005-1.030); Urine pH 5.5 (5.0-7.0)
[2018-11-07 18:57] LABS: Anisocytosis 1+; Blood Morphology Comment NOTED (NOT SEEN); Platelet Estimate ADEQ; Platelets, Giant PRESENT
[2018-11-07] MEDS ORDERED: FENTANYL CITR 100 MCG/2 ML ONE (19:45)
[2018-11-07] MEDS ORDERED: GLUCAGON 1 MG/VIAL IM PRN (21:58)
[2018-11-07] MEDS: INSULIN -REGULAR HUMAN 50 UNIT/0.5 ML ML SQ SCH (21:58)
[2018-11-07] MEDS ORDERED: CEFEPIME 1 GM/VIAL IV SCH (21:58)
[2018-11-07] MEDS ORDERED: D50W 25 GM/50 ML SYRINGE IV PRN (21:58)
[2018-11-07] MEDS ORDERED: MORPHINE 4 MG/ML SYR IV PRN (22:34)
[2018-11-07 23:21] VITALS: BMI 24.3
[2018-11-08] MEDS ORDERED: CEFTRIAXONE/SWI 1gm 1 GM/10 ML SYR ONE (00:40)
[2018-11-08] MEDS ORDERED: HYDROMORPHONE HCL 1 MG/ML INJ IV PRN (02:34)
[2018-11-08] MEDS ORDERED: SUCRALFATE 1 GM TABLET PO PRN (05:12)
[2018-11-08] MEDS ORDERED: ALBUTEROL 2.5 MG/3 ML NEB SOL IH PRN (05:12)
--- NOTE | 2018-11-08 05:18 | P.HP ---
Certification for Inpatient Patient admitted to: Inpatient With expected LOS: >2 Midnights Patient will require the following post-hospital care: None Practitioner: I am a practitioner with admitting privileges, knowledge of patient current condition, hospital course, and medical plan of care. Services: Services provided to patient in accordance with Admission requirements found in Title 42 Section 412.3 of the Code of Federal Regulations Patient History Date of Service: 11/08/18 Reason for admission: Status post ventricular tachyarrhythmia/ACLS History of Present Illness: patient is a 58-year-old gentleman who came to the hospital with shortness of breath. Patient was at hemodialysis when his breathing started got worse. He was brought to the hospital where he was felt he had a pneumonia. He had loculated pleural effusions. He required a VATS procedure. Her this was post be done when he was at [facility] the month prior. He also had an epidural abscess that had to be treated. Patient was discharged to the [facility]. Prior to getting to [facility] he got transported to the hospital. He was going to be transferred back to the [facility]. However he became lethargic and had a ventricular tachyarrhythmia. He required cardioversion. However, the patient had been a DNR. The patient family decided to make him hospice. Patient's medical power of attorneys [id number] apparently works with [facility]. That is who they are wanting to be evaluated by. Allergies No Known Drug Allergies Allergy (Verified 09/20/18 21:00) Unknown No Allergy (Uncoded 04/08/18 08:07) Unknown Home Medications: Albuterol Sulfate [Albuterol Sulfate 0.083% Neb Soln] 2.5 mg IH Q6H PRN Amiodarone HCl [Cordarone*] 1 tab PO DAILY 09/13/18 Arformoterol Tartrate [Brovana] 1 inh IH BID 09/13/18 Carvedilol [Coreg*] 1 tab PO BID 09/13/18 Cholecalciferol (Vitamin D3) [Vitamin D3] 1 cap PO DAILY 09/13/18 Duloxetine HCl [Cymbalta] 60 mg PO DAILY 09/13/18 Ferrous Sulfate 1 tab PO BID 09/13/18 Hydrocodone Bit/Acetaminophen [[place] 7.5-325 Tablet] 1 tab PO Q6H PRN 09/13/18 Ipratropium Neb [Atrovent*] 1 inh IH Q4H PRN 09/13/18 Nifedipine [Procardia Xl] 1 tab PO BID 09/13/18 Ondansetron HCl [Zofran] 1 tab PO Q4H PRN 09/13/18 Pantoprazole Sodium [Protonix] 1 tab PO BID 09/13/18 Ramipril [Altace] 1 cap PO BEDTIME 09/13/18 Ziprasidone HCl [Geodon] 1 cap PO BID 09/13/18 levoFLOXacin [Levaquin*] 250 mg PO Q48H #4 tab 09/17/18 Dicyclomine [Bentyl*] 20 mg PO Q6H PRN 09/20/18 Glucagon HCl 1 mg IM Q2H PRN 09/20/18 Sucralfate [Carafate -Tab] 1 gm PO Q12H PRN 09/20/18 - Past Medical/Surgical History Diabetic: Yes -: DM-Type 2 -: HTN -: Hyperlipidemia -: Dementia, Parkinsons disease -: GERD -: ESRD, Nephrology-Dr. Leavitt, Dialysis-,,Sat -: Restless leg syndrome -: COPD -: Depression, insomnia -: Anemia of chronic disease -: Normal-pressure hydrocephalus -: CAD, PUD, CHF -: Cardiac stents. -: Numerous back surgeries -: Congestive heart failure -: surgery to sacrum Psychosocial/ Personal History: He currently lives at the long-term - Family History Mother Medical History: Heart disease, Hypertension Father Medical History: Heart disease - Social History Smoking Status: Never smoker Alcohol use: No CD- Drugs: No Caffeine use: No Place of Residence: [facility] Review of Systems 10-point ROS is otherwise unremarkable Physical Examination - Vital Signs Temperature: 98.1 F Blood Pressure: 192/93 Pulse: 74 Respirations: 12 Pulse Ox (%): 100 - Physical Exam General: Alert, In no apparent distress, Oriented x3 HEENT: Atraumatic, PERRLA, Mucous membr. moist/pink, EOMI, Sclerae nonicteric Neck: Supple, 2+ carotid pulse no bruit, No LAD, Without JVD or thyroid abnormality Respiratory: Diminished, Expiratory wheezes Cardiovascular: Regular rate/rhythm, Normal S1 S2, Systolic murmur Gastrointestinal: Normal bowel sounds, Soft and benign, Non-distended, No tenderness Musculoskeletal: No clubbing, No swelling, No tenderness Integumentary: No rashes Neurological: Normal speech, Normal tone, Sensation intact, Cranial nerves 3-12 intact, Normal affect, Abnormal gait, Abnormal strength Lymphatics: No axilla or inguinal lymphadenopathy - Studies Laboratory Data (last 24 hrs) 11/07/18 13:14: PT 13.2 H, INR 1.12, APTT 33.5 11/07/18 13:14: WBC 22.9 H*, Hgb 9.1 L, Hct 29.3 L, Plt Count 341 11/07/18 13:14: Sodium 140, Potassium 3.8, BUN 17, Creatinine 2.01 H, Glucose 94 , Total Bilirubin 0.5, AST 10 L, ALT 10 L, Alkaline Phosphatase 103 Assessment & Plan - Problems (Diagnosis) (1) Ventricular tachyarrhythmia Current Visit: Yes Status: Acute (2) Loculated pleural effusion Current Visit: Yes Status: Acute (3) PNA (pneumonia) Current Visit: Yes Status: Acute (4) Sepsis Current Visit: Yes Status: Acute (5) ESRD (end stage renal disease) Onset Date: 12/24/17 Current Visit: No Status: Chronic (6) Pneumonia Onset Date: 04/18/17 Current Visit: No Status: Suspected Qualifiers: Pneumonia type: aspiration pneumonia Aspiration pneumonia type: unspecified Laterality: right Lung location: lower lobe of lung Qualified Code(s): J69.0 - Pneumonitis due to inhalation of food and vomit - Plan Plan: 1. Continue with IV antibiotics 2. Awaiting sputum and blood culture; procalcitonin level 3. Repeat chest x-ray in AM 4. Continue with nebs as needed 5. O2 per protocol 6. Repeat labs including CBC and renal function in a.m. - Advance Directives Does patient have a Living Will: Yes Does patient have a Durable POA for Healthcare: Yes - Code Status/Comfort Care Code Status Assessed: Yes Code Status: Do Not Resuscitate Comfort Measures: Palliative Care Critical Care: No Time Spent Managing PTS Care (In Minutes): 45
[2018-11-08] MEDS: CARVEDILOL 6.25 MG TAB PO SCH ×2 (05:46→16:25)
[2018-11-08] MEDS ORDERED: METOPROLOL TAR 25 MG TAB PO SCH (06:00)
[2018-11-08] MEDS: PANTOPRAZOLE 40MG TABLET PO SCH ×2 (07:30→16:25)
[2018-11-08] MEDS: INSULIN -REGULAR HUMAN 50 UNIT/0.5 ML ML SQ SCH ×2 (07:30→11:30)
[2018-11-08] MEDS ORDERED: ARFORMOTEROL TARTRATE 15 MCG/2 ML VIAL.NEB IH SCH (08:00)
[2018-11-08] MEDS ORDERED: NIFEDIPINE XL 60 MG TABLET PO SCH (09:00)
[2018-11-08] MEDS ORDERED: ZIPRASIDONE 20 MG CAP PO SCH (09:00)
[2018-11-08] MEDS ORDERED: DULOXETINE 30 MG CAP PO SCH (09:00)
[2018-11-08] MEDS ORDERED: AMIODARONE HCL 200 MG TAB PO SCH (09:00)
[2018-11-08 10:27] VITALS: O2SAT 100
--- NOTE | 2018-11-08 14:02 | EKG ---
Test Date: 2018-11-07 Test Time: 22:55:31 Upholsterer Outside: RACHAEL MEASUREMENT RESULTS: Intervals: Rate: 73 RI: 182 QRSD: 130 QT: 470 QTc: 517 [place]: P: 43 RI: 182 QRS: 54 T: -53 INTERPRETIVE STATEMENTS: Normal sinus rhythm Possible Left atrial enlargement Nonspecific intraventricular block T wave abnormality, consider inferior ischemia Abnormal ECG Compared to ECG 11/07/2018 11:17:06 Possible ischemia now present T-wave abnormality still present Electronically Signed On 11-08-18 13:58:52 FRUIT DISTRIBUTOR by Rafy Ascencio
--- NOTE | 2018-11-08 14:05 | EKG ---
Test Date: 2018-11-07 Test Time: 11:17:06 Computer Programmer Chief: KECIA MEASUREMENT RESULTS: Intervals: Rate: 74 NE: 184 QRSD: 136 QT: 468 QTc: 519 [place]: P: 66 NE: 184 QRS: 65 T: 49 INTERPRETIVE STATEMENTS: Normal sinus rhythm Possible Left atrial enlargement Nonspecific intraventricular block Nonspecific T wave abnormality Abnormal ECG Compared to ECG 09/20/2018 14:04:17 Intraventricular conduction delay no longer present T-wave abnormality still present Electronically Signed On 11-08-18 13:59:15 DIGITAL MARKETING PROJECT MANAGER by Rafy Ascencio
--- NOTE | 2018-11-08 14:47 | P.DS ---
Admission Date: 11/07/18 Discharge Date: 11/08/18 Discharge Condition: GOOD Reason for Admission: Status post ventricular tachyarrhythmia/ACLS - Problems (1) Loculated pleural effusion Current Visit: Yes Status: Acute (2) Ventricular tachyarrhythmia Current Visit: Yes Status: Acute (3) Bipolar disorder Onset Date: 05/04/17 Current Visit: No Status: Chronic Qualifiers: Active/Remission status: remission status unspecified (4) CAD (coronary artery disease) Onset Date: 12/24/17 Current Visit: No Status: Chronic Qualifiers: Coronary Disease-Associated Artery/Lesion type: jamul artery [place] vs. transplanted heart: jamul heart Associated angina: without angina Qualified Code(s): I25.10 - Atherosclerotic heart disease of jamul coronary artery without angina pectoris (5) CHF (congestive heart failure) Onset Date: 12/24/17 Current Visit: No Status: Chronic Qualifiers: Heart failure type: unspecified Heart failure chronicity: chronic Qualified Code(s): I50.9 - Heart failure, unspecified (6) COPD (chronic obstructive pulmonary disease) Onset Date: 12/24/17 Current Visit: No Status: Chronic Qualifiers: COPD type: chronic bronchitis Chronic bronchitis type: mucopurulent Qualified Code(s): J41.1 - Mucopurulent chronic bronchitis (7) Diabetes mellitus Onset Date: 05/04/17 Current Visit: No Status: Chronic Qualifiers: Diabetes mellitus type: type 2 Diabetes mellitus alf insulin use: with long winder tender use Diabetes mellitus complication status: with other specified complication Qualified Code(s): E11.69 - Type 2 diabetes mellitus with other specified complication; Z79.4 - long term care social worker (current) use of insulin (8) ESRD (end stage renal disease) Onset Date: 12/24/17 Current Visit: No Status: Chronic (9) GERD (gastroesophageal reflux disease) Onset Date: 12/24/17 Current Visit: No Status: Chronic Qualifiers: Esophagitis presence: with esophagitis Qualified Code(s): K21.0 - Gastro- esophageal reflux disease with esophagitis (10) Hypertension Onset Date: 12/24/17 Current Visit: No Status: Chronic Qualifiers: Hypertension type: essential hypertension Brief History of Present Illness: See HPI Hospital Course: Overall during the hospital stay patient remained stable Patient was initially presenting to the hospital for shortness of breath was found to have a loculated pleural fusion which is a chronic problem for the patient initially an attempt was made to transfer the patient to the [facility] for possible vats procedure as he was recently discharged from the hospital on 11/06/2018 after having a laminectomy done. Patient however had a cardiac catheterization event in the ER she had ventricular tachycardia and lost a pulse and was coded in the ER. Patient was successfully resuscitated however family at that time made a decision that make patient DNR and DNI. After having a detailed discussion with the ER physician family agreed for hospice and patient was then admitted to the hospital to enroll in hospice and set up at the [facility]. Patient was approved to be admitted with [facility] hospice and was transferred back to [facility] for his care at the [facility]. Patient medical power turning sign all paperwork including [id number] DNR DNI as well. Patient will not be continuing with hemodialysis at the [facility] as he is now hospice care. If patient or family member most people his hospice and come back to the ER for complaints of shortness of breath. Patient will need to be transferred to [facility] for possible vats procedure. Patient requires higher level of care than what the current hospital can provide with specialty support such as sore as 6 surgery in your surgery GI and Nephrology. Vital Signs/Physical Exam: Temp Pulse Resp BP Pulse Ox 98.1 F 74 12 192/93 H 100 11/08/18 13:04 11/08/18 13:04 11/08/18 13:04 11/08/18 13:04 11/08/18 13:04 General: Alert, In no apparent distress HEENT: Atraumatic, PERRLA, EOMI Neck: Supple, JVD not distended Respiratory: Clear to auscultation bilaterally, Normal air movement Cardiovascular: Regular rate/rhythm, Normal S1 S2 Gastrointestinal: Normal bowel sounds, No tenderness Musculoskeletal: No tenderness Integumentary: No rashes Neurological: Normal speech, Normal tone, Normal affect Lymphatics: No axilla or inguinal lymphadenopathy Laboratory Data at Discharge: WBC 23.4 K/uL (4.3-10.9) H* 11/08/18 05:16 Hgb BROADCAST NEWS PRODUCER 11/08/18 05:16 Hct BROADCAST NEWS PRODUCER 11/08/18 05:16 Plt Count BROADCAST NEWS PRODUCER 11/08/18 05:16 PT 13.2 SECONDS (9.5-12.5) H 11/07/18 13:14 INR 1.12 11/07/18 13:14 APTT 33.5 SECONDS (24.3-36.9) 11/07/18 13:14 Sodium 139 mmol/L (136-145) 11/08/18 05:16 Potassium 4.0 mmol/L (3.5-5.1) 11/08/18 05:16 BUN 29 mg/dL (7-18) H 11/08/18 05:16 Creatinine 2.84 mg/dL (0.55-1.3) H 11/08/18 05:16 Glucose 81 mg/dL (74-106) 11/08/18 05:16 Total Bilirubin 0.5 mg/dL (0.2-1.0) 11/07/18 13:14 AST 10 U/L (15-37) L 11/07/18 13:14 ALT 10 U/L (12-78) L 11/07/18 13:14 Alkaline Phosphatase 103 U/L (45-117) 11/07/18 13:14 Troponin I 0.61 ng/mL (0.0-0.045) H* 11/08/18 10:55 Home Medications: Albuterol Sulfate [Albuterol Sulfate 0.083% Neb Soln] 2.5 mg IH Q6H PRN Amiodarone HCl [Cordarone*] 1 tab PO DAILY 09/13/18 Arformoterol Tartrate [Brovana] 1 inh IH BID 09/13/18 Carvedilol [Coreg*] 1 tab PO BID 09/13/18 Cholecalciferol (Vitamin D3) [Vitamin D3] 1 cap PO DAILY 09/13/18 Duloxetine HCl [Cymbalta] 60 mg PO DAILY 09/13/18 Ferrous Sulfate 1 tab PO BID 09/13/18 Hydrocodone Bit/Acetaminophen [[place] 7.5-325 Tablet] 1 tab PO Q6H PRN 09/13/18 Ipratropium Neb [Atrovent*] 1 inh IH Q4H PRN 09/13/18 Nifedipine [Procardia Xl] 1 tab PO BID 09/13/18 Ondansetron HCl [Zofran] 1 tab PO Q4H PRN 09/13/18 Pantoprazole Sodium [Protonix] 1 tab PO BID 09/13/18 Ramipril [Altace] 1 cap PO BEDTIME 09/13/18 Ziprasidone HCl [Geodon] 1 cap PO BID 09/13/18 levoFLOXacin [Levaquin*] 250 mg PO Q48H #4 tab 09/17/18 Dicyclomine [Bentyl*] 20 mg PO Q6H PRN 09/20/18 Glucagon HCl 1 mg IM Q2H PRN 09/20/18 Sucralfate [Carafate -Tab] 1 gm PO Q12H PRN 09/20/18 Diet: Regular Activity: Ad summer
[2018-11-08] MEDS ORDERED: D50W 25 GM/50 ML SYRINGE IV ONE (17:34)
[2018-11-08] MEDS ORDERED: ATROPINE SULF 1 MG/10 ML SYR IV ONE (17:34)
[2018-11-08] MEDS ORDERED: EPINEPHrine 1 MG/10 ML SYR IV ONE (17:34)
[2018-11-08 18:00] VITALS: BP 191/91; TEMP 97.8
--- NOTE | 2018-11-08 20:26 | P.CNS ---
Date of Consult: 11/08/18 Reason for Consult: ESRD Requesting Physician: Valery Norman Chief Complaint: Status post ventricular tachyarrhythmia/ACLS History of Present Illness: patient is a 58-year-old gentleman who came to the hospital with shortness of breath. Patient was at hemodialysis when his breathing started got worse. He was brought to the hospital where he was felt he had a pneumonia. He had loculated pleural effusions. He required a VATS procedure. Her this was post be done when he was at [facility] the month prior. He also had an epidural abscess that had to be treated. Patient was discharged to the [facility], [place]. Prior to getting to [facility] he got transported to the hospital. He was going to be transferred back to the [facility]. However he became lethargic and had a ventricular tachyarrhythmia. He required cardioversion. However, the patient had been a DNR. The patient family decided to make him hospice. Patient's medical power of attorneys [id number] apparently works with [facility] hosp[facility]. That is who they are wanting to be evaluated by. 12:22 This 58 yrs old Male presents to ER via EMS with complaints of Shortness Of snw Breath. 12:22 The patient has shortness of breath just post dialysis, . Onset: The symptoms/episode snw began/occurred suddenly, just prior to arrival. Duration: The symptoms are continuous, but are steadily getting better, but are markedly better than the original presentation. Associated signs and symptoms: The patient has no apparent associated signs or symptoms. Severity of symptoms: At their worst the symptoms were moderate in the emergency department the symptoms have resolved. The patient has experienced similar episodes in the past. It is unknown whether or not the patient has recently seen a physician. Allergies No Known Drug Allergies Allergy (Verified 09/20/18 21:00) Unknown No Allergy (Uncoded 04/08/18 08:07) Unknown Home medications list reviewed: Yes Home Medications: Albuterol Sulfate [Albuterol Sulfate 0.083% Neb Soln] 2.5 mg IH Q6H PRN Amiodarone HCl [Cordarone*] 1 tab PO DAILY 09/13/18 Arformoterol Tartrate [Brovana] 1 inh IH BID 09/13/18 Carvedilol [Coreg*] 1 tab PO BID 09/13/18 Cholecalciferol (Vitamin D3) [Vitamin D3] 1 cap PO DAILY 09/13/18 Duloxetine HCl [Cymbalta] 60 mg PO DAILY 09/13/18 Ferrous Sulfate 1 tab PO BID 09/13/18 Hydrocodone Bit/Acetaminophen [[place] 7.5-325 Tablet] 1 tab PO Q6H PRN 09/13/18 Ipratropium Neb [Atrovent*] 1 inh IH Q4H PRN 09/13/18 Nifedipine [Procardia Xl] 1 tab PO BID 09/13/18 Ondansetron HCl [Zofran] 1 tab PO Q4H PRN 09/13/18 Pantoprazole Sodium [Protonix] 1 tab PO BID 09/13/18 Ramipril [Altace] 1 cap PO BEDTIME 09/13/18 Ziprasidone HCl [Geodon] 1 cap PO BID 09/13/18 levoFLOXacin [Levaquin*] 250 mg PO Q48H #4 tab 09/17/18 Dicyclomine [Bentyl*] 20 mg PO Q6H PRN 09/20/18 Glucagon HCl 1 mg IM Q2H PRN 09/20/18 Sucralfate [Carafate -Tab] 1 gm PO Q12H PRN 09/20/18 - Past Medical/Surgical History Diabetic: Yes -: DM-Type 2 -: HTN -: Hyperlipidemia -: Dementia, Parkinsons disease -: GERD -: ESRD, Nephrology-Dr. Leavitt, Dialysis-,Sat -: Restless leg syndrome -: COPD -: Depression, insomnia -: Anemia of chronic disease -: Normal-pressure hydrocephalus -: CAD, PUD, CHF -: Cardiac stents. -: Numerous back surgeries -: Congestive heart failure -: surgery to sacrum Psychosocial/ Personal History: He currently lives at the [facility] - Family History Mother Medical History: Heart disease, Hypertension Father Medical History: Heart disease - Social History Smoking Status: Unknown if ever smoked Alcohol use: No CD- Drugs: No Caffeine use: No Place of Residence: Group Home Review of Systems 10-point ROS is otherwise unremarkable General: Weakness, Malaise Respiratory: Shortness of Breath Cardiovascular: Chest Pain Integumentary: Bruising Physical Examination Temp Pulse Resp BP Pulse Ox 97.8 F 75 18 191/91 H 92 11/08/18 17:00 11/08/18 17:00 11/08/18 17:00 11/08/18 17:00 11/08/18 17:00 General: Oriented x3, Cooperative, Mild distress HEENT: Atraumatic Neck: Supple, JVD distended Respiratory: Clear to auscultation bilaterally, Diminished Cardiovascular: Regular rate/rhythm, No rubs, Edema Gastrointestinal: Soft and benign, Non-distended, No guarding Musculoskeletal: No clubbing, No contractures Integumentary: No rashes, No cyanosis Neurological: Normal speech Blood work reviewed in the chart. Hgb 9.1 Imagings Data: EXAM DESCRIPTION: Richelle Nj And Annette (2 Views)11/07/2018 12:27 pm CLINICAL HISTORY: Shortness of breath COMPARISON: September 2018 FINDINGS: A moderate partially loculated left pleural effusion is suspected. Left lung opacities probably represent pneumonia. Mild additional lung opacities probably represent mild interstitial pulmonary edema. Heart remains enlarged. A central venous catheter remains in place Conclusions/Impression: A/ ESRD on HD. HTN with CKD/ CHF. A/C Diastolic CHF. Aspiration PNA. DM II with CKD. Anemia in CKD. JACOB/ Secondary HyperPTH. P/ Continue current POC and Medications. Will arrange acute HD as needed. Restart home medications as indicated. Agree with abx. Aspiration precautions. No NSAIDs. AM labs. Daily weight. Thank you kindly for the consultation. Case discussed with Dr. Norman and family; family is considering hospice.
[2018-11-08] MEDS ORDERED: CEFEPIME 1 GM/100 ML BAG IV SCH (21:00)
[2018-11-08] MEDS ORDERED: CEFEPIME/SWI 1gm 1 GM/10 ML SYR IV SCH (21:00)
== END 2018-11-08 17:35 ==
LOC: ER 10:51 → 4TH 20:18 → INTOOBSV 20:18
PROVIDERS: ADMIT Family Medicine; ATTEND Hospitalist
DX: I13.2 Hypertensive heart and chronic kidney disease with heart failure and with stage 5 chronic kidney disease, or end stage renal disease (principal); I50.33 Acute on chronic diastolic (congestive) heart failure; N18.6 End stage renal disease; E11.22 Type 2 diabetes mellitus with diabetic chronic kidney disease; J91.8 Pleural effusion in other conditions classified elsewhere; G25.81 Restless legs syndrome; E78.5 Hyperlipidemia, unspecified; I47.2 Ventricular tachycardia; F31.9 Bipolar disorder, unspecified; I25.10 Atherosclerotic heart disease of native coronary artery without angina pectoris; J44.9 Chronic obstructive pulmonary disease, unspecified; K21.9 Gastro-esophageal reflux disease without esophagitis; Z95.5 Presence of coronary angioplasty implant and graft
CPT/HCPCS: 36415; 71046; 80048; 80076; 81003; 82550; 82962; 83605; 84145; 84484; 85025; 85610; 85730; 87040; 92950; 93005; 96365; 96375; 99291; G0378; J0171; J0692; J0696; J1170; J2250; J2405; J3010; J7605